=== PATIENT | female | born 1950 | race Caucasian/White ===

== ENCOUNTER → 2017-12-20 12:50 | Outpatient (CLI) | payer MEDICARE, SELFPAY ==
[2017-12-24 11:21] LABS: Flecainide (Tambocor) 085662 0.27 ug/mL (0.20-1.00)
== END ==
PROVIDERS: Family Provider Internal Medicine; PCP Internal Medicine; Visit Provider Internal Medicine
DX: Z79.899 Other long term (current) drug therapy (principal)
CPT/HCPCS: 36415; 80299

== ENCOUNTER 2018-01-28 10:26 | Inpatient (IN) | payer MEDICARE, SELFPAY ==
[2018-01-28] VITALS (17 sets, daily range): BP systolic 126–159; BP diastolic 69–95; PULSE 66–94; RESP 15–24; TEMP 36.7–37.3; O2SAT 88–96; BMI 43.7; BMI 45.8
--- NOTE | 2018-01-28 10:41 | EKG12_ITS ---
Test Reason : FALL Blood Pressure : / mmHG Vent. Rate : 077 BPM Atrial Rate : 077 BPM P-R Int : 158 ms QRS Dur : 104 ms QT Int : 426 ms P-R-T Axes : 063 014 017 degrees QTc Int : 482 ms Normal sinus rhythm Normal ECG Confirmed by ROCAEL LAMBERT, BOBBI ([id number]), visual effects editor KENDRA BAE ([id number]) on 02/01/2018 2:17:38 PM Referred By: GALILEO Confirmed By:BOBBI COTE MD
--- NOTE | 2018-01-28 10:41 | RAD_ITS ---
STUDY: X-RAY CHEST REASON FOR EXAM: Female, 67 years old. Fall this morning TECHNIQUE skull view of the chest was obtained. COMPARISON: August 16, 2017 chest radiograph FINDINGS: No lung consolidation or pneumothorax. Mild pulmonary vascular congestion cardiomegaly. Subsegmental atelectasis in the left lower lobe. Aortic tortuosity. Calcifications of the aortic knob. Right paratracheal opacity likely azygos vein. IMPRESSION: Cardiomegaly with mild pulmonary vascular congestion. No pneumothorax or consolidation. No definite evidence for acute rib fractures within the limits of this exam Electronically Signed: Benito Dye, at 12:08 EDT Tel , Service support , RAD/Chest 1 View (Portable)
--- NOTE | 2018-01-28 10:42 | ED.RN ---
PT HAS SEVERAL MEDICATION BOTTLES WITH SOMEONE ELSES NAME ONE THEM. PT HAS ONE PRESCRIPTION MEDICATION BOTTLE WITH NO LABEL AND MULTIPLE DIFFERENT PILLS INSIDE
--- NOTE | 2018-01-28 10:43 | RAD_ITS ---
STUDY: X-RAY - LEFT FEMUR REASON FOR STUDY: Female, 67 years old. Fall this morning TECHNIQUE: Radiological exam, femur, minimum 2 views COMPARISON: None. FINDINGS: No evidence of lucency noted in the proximal left femur suggestive of an intertrochanteric left femoral fracture. No distal fractures. Femoral acetabular and knee joints are intact. IMPRESSION: Proximal left femoral intertrochanteric fracture. Crosstable lateral views are somewhat limited due to patient's body habitus. Patient may benefit from CT examination. Electronically Signed: Benito Dye, at 12:07 EDT Tel , Service support , RAD/Femur Min 2 Views
--- NOTE | 2018-01-28 10:43 | RAD_ITS ---
STUDY: X-RAY - PELVIS REASON FOR EXAM: Female, 67 years old. Fall and left hip pain TECHNIQUE: One view of the pelvis was obtained. COMPARISON: None. FINDINGS: There is likely an intertrochanteric fracture of the left proximal femur present. The superior and inferior pubic rami are within normal limits. Bony pelvic ring appears intact. Degenerative changes in the lower lumbar spine as well as the sacroiliac joints. IMPRESSION: Lucency in the proximal left femur suggestive of a intertrochanteric left proximal femoral fracture Electronically Signed: Benito Dye, at 12:06 EDT Tel , Service support , RAD/Pelvis 1 or 2 Views
--- NOTE | 2018-01-28 10:46 | ED.DCSUM_ITS ---
- ER Visit Summary Date of Service: 01/28/18 Chief Complaint: [] Fall left hip pain unable to walk History of Present Illness: The patient is a 67 F [] COPD and hypertension, arthritis, back pain, she indicates she was downsized her basement there was some issue where she was trying to deal with the dogs she tripped and fell landing on her left hip she was unable to walk she called out eventually neighbors heard her and paramedics were called they found her with what appeared to be an obvious left hip fracture and inability to walk she was brought to the hospital, she was not sick before this happened, she did not hit her head she only has hip pain she denies any other complaints, her other medical conditions have been stable Physical Examination: [] Obvious left extremity deformity and hip pain shortening rotation sure head is nontender she has scattered lesions to the skin that are old her HEENT is unremarkable her lungs are diminished her heart tones are regular the abdomen is obese but soft nontender severe pain to the left hip with palpation any type movements of the left leg she able dorsi and flex and move her toes left leg her feet are well-perfused the right lower extremity unremarkable upper extremity unremarkable palpation of her lumbar back reveals no pain Test Results: [] Emergency Department Course and Treatment: [] X-rays labs pain management, the x -ray shows intertrochanteric hip fracture of the labs are generally unremarkable see those reports I spoke with Dr. Yoseph Murillo hospitalist will be by to see her shortly for admission and further management Treatment Plan: [] Disposition: [] Admit stable Impression: [] Intertrochanteric hip fracture fall COPD This note was generated with [employer] dictation software. It may contain incorrect words, spelling, and punctuation that were not noted in review of the chart prior to signing ED Disposition - Plan for ED Patient: Chief Complaint: Fall Referrals: Reagan He MD [Primary Care Provider] -
[2018-01-28] MEDS: morphine 8 MG/ML Syringe IV (10:49)
[2018-01-28] MEDS: Ondansetron 4 MG/2 ML Vial IV (10:49)
[2018-01-28 10:50] LABS: Absolute Neutrophil Count 8.3 X10^3/uL (2.0-7.7); Basophil# 0.05 X10^3/uL; Basophil% 0.5 % (0-1); Eosinophil# 0.21 X10^3/uL; Hematocrit 40.9 % (37-47); Hemoglobin 12.7 g/dl (12.0-15.0); Lymphocyte % 11.6 % (19-41); Mean Corp Hgb Conc 31.1 g/gl (32-36); Mean Corpuscular Hgb 29.1 pg (27.0-32.0); Mean Corpuscular Volume 93.6 fL (81-99); Mean Platelet Vol. 9.1 fl (6.2-12.0); Monocyte# 0.61 X10^3/uL; Monocyte% 5.9 % (0-10); Neutrophil # 8.25 X10^3/uL (2.7-7.7); Neutrophil % 79.4 % (47-70); Platelet Count 328 K/mm3 (150-450); RBC Distribution Width CV 15.6 % (11.6-14.6); RBC Distribution Width SD 51.9 fl (35.1-43.9); Red Blood Count 4.37 M/mm3 (4.2-5.4); White Blood Count 10.4 K/mm3 (4.4-11.0)
[2018-01-28] MEDS: 0.9% Normal Saline 1,000 ML 150 ML IV (10:50)
[2018-01-28 10:51] LABS: POSITIVE COUNT NO; POSITIVE DIFFERENTIAL NO; POSITIVE MORPHOLOGY NO
[2018-01-28] MEDS: Ipratropium/Albuterol Sulfate 3 ML AMPUL.NEB INHALATION ×2 (10:54→15:28)
[2018-01-28 11:15] LABS: Anion Gap 4 (5-15); BUN 23 mg/dL (7-18); BUN/Creat Ratio 21.7 RATIO (10-20); Calcium,Total 8.9 mg/dL (8.5-10.1); Chloride 107 mmol/L (98-107); Creatinine, Serum 1.06 mg/dL (0.55-1.02); EST Glomerular Filtration Rate 55 mL/min (>60); Est Glom Filt Rate - Afr Amer 66 mL/min (>60); Estimated Creatinine Clearance 50.08 ml/min; Glucose 98 mg/dL (74-106); Potassium 4.9 mmol/L (3.5-5.1); Sodium Level 141 mmol/L (136-145)
[2018-01-28 11:19] LABS: BNP,B-Type NATRIURETIC PEPTIDE 375.2 pg/mL (0-100)
--- NOTE | 2018-01-28 13:26 | ECHOD_ITS ---
Reason For Study: CHF Procedure This was a 2D Doppler, Color Flow transthoracic echocardiogram. The exam was of fair technical quality due to diminished acoustic windows. The study was technically difficult. Exam performed portable in patient room. Left Ventricle Normal LV size. Moderate to severe concentric LVH. Left ventricular systolic function is normal. The estimated ejection fraction is 55 %. Unable to assess diastolic dysfunction. No regional wall motion abnormalities noted. Right Ventricle Normal RV size. Normal systolic function. Atria The left atrium is mildly enlarged. The right atrium is mildly enlarged. No doppler evidence for ASD. Mitral Valve There is mild mitral annular calcification. Normal mitral valve. Trivial mitral valve insufficiency. Tricuspid Valve Normal tricuspid valve. Mild tricuspid valve insufficiency. Unable to estimate RV systolic pressure/pulmonary artery pressure due to technically difficult study. Aortic Valve Trisinus/trileaflet aortic valve. Normal aortic valve. Pulmonic Valve The pulmonic valve is not well visualized. Great Vessels Normal sized aortic root. Calcified aortic root. Pericardium/Pleural No pericardial effusion. MMode/2D Measurements & Calculations LVIDd: 5.2 cm IVSd: 1.8 cm Ao root diam: 3.6 cm LVIDs: 2.8 cm LVPWd: 1.3 cm LA dimension: 2.3 cm FS: 46.2 % LAV(MOD-sp4): 60.2 ml LA A4 area: 21.1 cm2 RA A4 area: 18.8 cm2 Time Measurements MV dec time: 0.27 sec Doppler Measurements & Calculations MV E max [place]: 95.4 cm/sec Lat Peak E' [place]: 13.0 cm/sec MV V2 max: 138.7 cm/sec MV A max [place]: 130.3 cm/sec E/E' lat: 7.3 MV max P.7 mmHg MV E/A: 0.73 MV V2 mean: 77.4 cm/sec MV mean P.8 mmHg MV V2 VTI: 41.6 cm MV P1/2t max [place]: 117.5 cm/sec Ao V2 max: 180.1 cm/sec LV V1 max: 108.5 cm/sec MV P1/2t: 114.8 msec Ao max P.0 mmHg LV V1 max P.7 mmHg MV dec slope: 299.6 cm/sec2 Ao V2 mean: 118.2 cm/sec LV V1 mean P.0 mmHg MVA(P1/2t): 1.9 cm2 Ao mean P.4 mmHg LV V1 mean: 64.7 cm/sec Ao V2 VTI: 34.9 cm LV V1 VTI: 18.9 cm PA V2 max: 95.3 cm/sec Interpretation Summary The study was technically difficult. Left ventricular systolic function is normal. The estimated ejection fraction is 55 %. Moderate to severe concentric LVH. The left atrium is mildly enlarged. The right atrium is mildly enlarged. There is mild mitral annular calcification. Trivial mitral valve insufficiency. Mild tricuspid valve insufficiency. Calcified aortic root. Unable to estimate RV systolic pressure/pulmonary artery pressure due to technically difficult study. Unable to assess diastolic dysfunction. Ordering Physician: Amy Parker Referring Physician: Reagan He Performed By: Brodwolf, Tyree, RCS
--- NOTE | 2018-01-28 13:42 | PCM.HP.STD ---
Problem List (1) Chronic combined systolic and diastolic CHF (congestive heart failure) Status: Chronic (2) Non-sustained ventricular tachycardia Status: Chronic (3) Dysmetabolic syndrome Status: Chronic (4) Hypertension Status: Chronic (5) 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 Status: Chronic (6) FDC current use of antiarrhythmic medical therapy Status: Chronic (7) Paroxysmal atrial fibrillation Status: Chronic (8) Arthritis Status: Chronic (9) Asthma Status: Chronic (10) COPD (chronic obstructive pulmonary disease) Status: Chronic Qualifiers: (11) ESPERANZA (obstructive sleep apnea) Status: Acute (12) Chronic respiratory failure with hypoxia Status: Chronic (13) History of tobacco use Status: Chronic Comment: [id number]-[id number] smoking history. (14) Anxiety Status: Chronic (15) Depression Status: Chronic History of Present Illness Date of Admission: 01/28/18 Chief Complaint: Left hip pain, mechanical fall The patient is a 67 year old F who presents to the emergency room with left hip pain. Patient states her left hip has been giving out on her. Today she states she was moving boxes and had to use the restroom fairly quickly. She states when she moved to go to the restroom her left hip gave out out on her causing her to fall. She was unable to get up or walk. She crawled to a telephone to call the squad. Her current pain is 9 out of 10 in the left hip. She denies dizziness, lightheadedness prior to fall. She denies loss of consciousness. Denies hitting her head. Patient admits to poor outpatient follow-up and compliance with medication regimen. She has a past medical history of chronic combined systolic and diastolic CHF, hypertension, nonsustained ventricular tachycardia, paroxysmal atrial fibrillation, COPD, chronic back pain, chronic kidney disease stage III, GERD, history of DVT, restless leg syndrome, anxiety, depression, obstructive sleep apnea, former tobacco use with 67-[id number]-[id number] smoking history, chronic hypoxic respiratory failure, lung nodule suspicious for cancer, morbid obesity. Patient has not followed with cardiology in a few years. Previously followed with Dr. Allen, [facility] cardiology. She was told that she has a lung nodule suspicious for lung cancer and failed to follow-up as outpatient. Patient had a recent COPD exacerbation and was placed on Augmentin and prednisone by primary care physician 01/19/2018. She states she took the medications for a few days and then stopped taking them. She complains of chronic cough and shortness of breath. Denies fever, chills. States she has had increase in lower extremity edema and weight gain recently. She is unsure how much weight she has gained. Denies chest pain, palpitations. Denies other complaints. Past Medical History Past Medical History (Chronic Problems): Chronic Problems (Last Reviewed 01/19/18 @ 16:26 by Aleyda Mendez) Chronic respiratory failure with hypoxia (Chronic) History of tobacco use (Chronic) 60-[id number] smoking history. 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) FDC current use of antiarrhythmic medical therapy (Chronic) Paroxysmal atrial fibrillation (Chronic) Arthritis (Chronic) Asthma (Chronic) COPD (chronic obstructive pulmonary disease) (Chronic) Allergies ciprofloxacin [From Cipro] Adverse Reaction (Intermediate, Verified 01/28/18 10:32) Other messes with her heart medicine Home Medications: Ambulatory Orders Medication Instructions Recorded Albuterol Inhaler [Ventolin Hfa] 1 puff INHALATION Q4H PRN PRN 08/08/13 Fluticasone 0.05% [Flonase Nasal 1 spray NASAL DAILY 08/08/13 [place]] Ipratropium [Atrovent Aerosols] 0.25 mg INHALATION TID 08/08/13 Lisinopril [Zestril] 10 mg PO DAILY 08/08/13 Ropinirole HCl [Requip] 1 mg PO TID 02/18/14 Oxycodone HCl/Acetaminophen 1 - 2 tab PO Q4H PRN PRN #20 tab 08/02/14 [Percocet 5/325] cyclobenzaprine 10 mg tablet 10 mg PO TID PRN 08/16/17 flecainide 150 mg tablet 150 mg PO BID 08/16/17 metoprolol tartrate 25 mg tablet 25 mg PO BID 08/16/17 ranitidine 150 mg tablet 150 mg PO BID tab 08/16/17 tizanidine 4 mg capsule 4 mg PO BID cap 08/16/17 meloxicam 15 mg tablet 15 mg PO QDAY #90 tab 09/07/17 omeprazole 20 mg capsule,delayed 40 mg PO BID #120 cap 09/07/17 release furosemide 20 mg tablet 20 mg PO DAILY #30 tab 10/28/17 lorazepam 0.5 mg tablet 0.5 mg PO QDAY PRN #10 tab 11/08/17 amoxicillin 875 mg-potassium 1 tab PO Q12H #20 tab 01/19/18 clavulanate 125 mg tablet fluticasone 232 mcg-salmeterol 14 1 puff INHALATION BID #1 ea 01/19/18 mcg/actuation breath activated powdr prednisone 20 mg tablet 40 mg PO QDAY #20 tab 01/19/18 Diclofenac Sodium [[place]] 112 gm TP DAILY 01/28/18 Hydrocodone/Acetaminophen [[place] 1 each PO Q6H PRN PRN 01/28/18 7.5-325 Tablet] Venlafaxine HCl [Venlafaxine HCl 75 mg PO BID 01/28/18 ER] Surgical History: - - Hysterectomy, tubal ligation, oophorectomy, knee surgery, status post cardiac radiofrequency ablation, cardiac catheterization. 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 Denies: Chest Pain, Palpitations, Syncope Respiratory: Reports: Cough - Chronic, Shortness of Breath - Chronic, Sputum production. Denies: Wheezing Gastrointestinal: Denies: Abdominal Pain, Nausea, Vomiting Genitourinary: Denies: Dysuria Musculoskeletal: Reports: - - Left hip pain. Denies: Joint Pain, Joint Tenderness Skin: Denies: Rash, Wounds Neurological: Denies: Double vision, Slurred speech, Confusion, Focal weakness, Numbness, Tingling Psychiatric: Reports: Anxiety, Depression Hematologic/ Lymphatic: Denies: Easy Bruising, Easy Bleeding VTE Information - Inpt Only VTE Present on Admission: No VTE Mechan Device Prophylaxis: None VTE Pharm Prophylaxis ordered?: Yes Patient Problems: Active and Suspected Problems (Last Reviewed 01/19/18 @ 16:26 by Aleyda Mendez) ESPERANZA (obstructive sleep apnea) (Acute) - Physical Exam General: Alert, Oriented x3, Cooperative, - - Appears uncomfortable. HEENT: Atraumatic, PERRLA, EOMI, Normocephalic Neck: Supple, No JVD, Negative Carotid Bruits Lungs: Clear to auscultation, Diminished Cardiovascular: Regular rate, Regular Rhythm, Normal S1, Normal S2, No murmurs Abdomen: Bowel Sounds Present, Soft, Non Tender, Non-Distended, Obese Extremities: No clubbing, No cyanosis, Capillary Refill Less than 3 Seconds, Edema - BLLE Skin: No rashes, No breakdown Musculoskeletal: No Tenderness to Palpation of Joints or Extremities Neurological: Cranial nerves II-XII grossly intact Psych/Mental Status: Normal Affect, Appropriate Vital Signs Temp Pulse Resp BP Pulse Ox 98.3 F 88 15 147/92 H 95 01/28/18 10:27 01/28/18 13:07 01/28/18 13:07 01/28/18 13:07 01/28/18 13:07 Assessment/Plan Active and Suspected Problems (Last Reviewed 01/19/18 @ 16:26 by Aleyda Mendez) ESPERANZA (obstructive sleep apnea) (Acute) 1. Traumatic left hip fracture secondary to mechanical fall prior to [id number] of pelvis shows lucency in the proximal left femur suggestive of a intertrochanteric left proximal femoral fracture. X-ray of femur showed proximal left femoral intertrochanter fracture. PRN pain regimen. Consult orthopedic surgery. PT/OT. Fall precautions. Consult cardiology for clearance for surgery given cardiac hx and poor outpatient follow up. 2. Chronic combined systolic and diastolic CHF-chest x-ray on admission showed mild pulmonary vascular congestion. BNP 375. Most recent echocardiogram December 2015 showed an ejection fraction of 56%. Repeat echocardiogram. BNP on admission 375. Discontinue fluids. Continue home lasix regimen. 1500 FR. Daily weight. 3. Hypertension-stable, continue home metoprolol, lisinopril, furosemide regimen. 4. History of nonsustained ventricular tachycardia-monitor telemetry. 5. Paroxysmal atrial fibrillation-history of ablation. Continue flecainide, metoprolol. Previously a patient of Dr. Allen at [facility] and has not followed up with cardiology in over a year and a half. Patient is sinus rhythm at this time. 6. COPD-recent exacerbation. Placed on Augmentin and prednisone taper by PCP. Patient did not take as prescribed. Discontinue antibiotics and steroids. Albuterol aerosol as needed for shortness of breath. 7. Chronic back pain/arthritis-follows with pain management, Dr. Betts. 8. Chronic kidney disease stage III-stable, monitor BMP. 9. GERD-continue home omeprazole regimen. 10. History of DVT-patient states this occurred in 1970s. Not on chronic anticoagulation. 11. Restless leg syndrome-continue home Requip regimen. 12. Anxiety/depression-continue home venlafaxine, lorazepam regimen. 13. Obstructive sleep apnea-patient had sleep study in [address] Ruiz. Continue CPAP HS. Recommend further outpatient follow up as patient has not followed up since 2013. 14. History of tobacco use-quit 11 years ago. 62-[id number]-tbbm smoking history. Encouraged continued cessation. 15. Chronic hypoxic respiratory failure-patient states she is supposed to wear oxygen continuously at home but only wears as needed. She states she typically wears oxygen at night with her CPAP only. Continue supplement oxygen to maintain O2 at or above 90%. 16. Lung nodule-patient reports she was told she had a lung nodule that was suspicious for lung cancer and was supposed to follow-up as outpatient which she is failed to do so. Her daughter states she has an upcoming appointment with Dr. Antunez February 02 for further follow-up. 17. Super obesity-encourage diet and lifestyle modifications. Nutrition consult. DVT prophylaxis-Lovenox subcu. CODE STATUS: CODE STATUS was discussed with patient and daughter. Patient wishes to be a full code. This patient was seen by JUDY Hughes under the supervision of Dr. Parker.
[2018-01-28] MEDS: Morphine 4 MG/ML Syringe IV (13:50)
[2018-01-28] MEDS: Acetaminophen 325 MG Tablet 650 MG PO (13:52)
--- NOTE | 2018-01-28 14:00 | HP.PCM_ITS ---
Problem List (1) Chronic combined systolic and diastolic CHF (congestive heart failure) Status: Chronic (2) Non-sustained ventricular tachycardia Status: Chronic (3) Dysmetabolic syndrome Status: Chronic (4) Hypertension Status: Chronic (5) 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 Status: Chronic (6) 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 Status: Chronic (7) Paroxysmal atrial fibrillation Status: Chronic (8) Arthritis Status: Chronic (9) Asthma Status: Chronic (10) COPD (chronic obstructive pulmonary disease) Status: Chronic Qualifiers: (11) ESPERANZA (obstructive sleep apnea) Status: Acute (12) Chronic respiratory failure with hypoxia Status: Chronic (13) History of tobacco use Status: Chronic Comment: [id number] smoking history. (14) Anxiety Status: Chronic (15) Depression Status: Chronic History of Present Illness Date of Admission: 01/28/18 Chief Complaint: Left hip pain, mechanical fall The patient is a 67 year old F who presents to the emergency room with left hip pain. Patient states her left hip has been giving out on her. Today she states she was moving boxes and had to use the restroom fairly quickly. She states when she moved to go to the restroom her left hip gave out out on her causing her to fall. She was unable to get up or walk. She crawled to a telephone to call the squad. Her current pain is 9 out of 10 in the left hip. She denies dizziness, lightheadedness prior to fall. She denies loss of consciousness. Denies hitting her head. Patient admits to poor outpatient follow-up and compliance with medication regimen. She has a past medical history of chronic combined systolic and diastolic CHF, hypertension, nonsustained ventricular tachycardia, paroxysmal atrial fibrillation, COPD, chronic back pain, chronic kidney disease stage III, GERD, history of DVT, restless leg syndrome, anxiety, depression, obstructive sleep apnea, former tobacco use with [id number] smoking history, chronic hypoxic respiratory failure, lung nodule suspicious for cancer, morbid obesity. Patient has not followed with cardiology in a few years. Previously followed with Dr. Allen, [facility] cardiology. She was told that she has a lung nodule suspicious for lung cancer and failed to follow-up as outpatient. Patient had a recent COPD exacerbation and was placed on Augmentin and prednisone by primary care physician 01/19/2018. She states she took the medications for a few days and then stopped taking them. She complains of chronic cough and shortness of breath. Denies fever, chills. States she has had increase in lower extremity edema and weight gain recently. She is unsure how much weight she has gained. Denies chest pain, palpitations. Denies other complaints. Past Medical History Past Medical History (Chronic Problems): Chronic Problems (Last Reviewed 01/19/18 @ 16:26 by Aleyda Mendez) Chronic respiratory failure with hypoxia (Chronic) History of tobacco use (Chronic) [id number] smoking history. 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) 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 (Chronic) Paroxysmal atrial fibrillation (Chronic) Arthritis (Chronic) Asthma (Chronic) COPD (chronic obstructive pulmonary disease) (Chronic) Allergies ciprofloxacin [From Cipro] Adverse Reaction (Intermediate, Verified 01/28/18 10: 32) Other messes with her heart medicine Home Medications: Ambulatory Orders Medication Instructions Recorded Albuterol Inhaler [Ventolin Hfa] 1 puff INHALATION Q4H PRN PRN 08/08/13 Fluticasone 0.05% [Flonase Nasal 1 spray NASAL DAILY 08/08/13 [place]] Ipratropium [Atrovent Aerosols] 0.25 mg INHALATION TID 08/08/13 Lisinopril [Zestril] 10 mg PO DAILY 08/08/13 Ropinirole HCl [Requip] 1 mg PO TID 02/18/14 Oxycodone HCl/Acetaminophen 1 - 2 tab PO Q4H PRN PRN #20 tab 08/02/14 [Percocet 5/325] cyclobenzaprine 10 mg tablet 10 mg PO TID PRN 08/16/17 flecainide 150 mg tablet 150 mg PO BID 08/16/17 metoprolol tartrate 25 mg tablet 25 mg PO BID 08/16/17 ranitidine 150 mg tablet 150 mg PO BID tab 08/16/17 tizanidine 4 mg capsule 4 mg PO BID cap 08/16/17 meloxicam 15 mg tablet 15 mg PO QDAY #90 tab 09/07/17 omeprazole 20 mg capsule,delayed 40 mg PO BID #120 cap 09/07/17 release furosemide 20 mg tablet 20 mg PO DAILY #30 tab 10/28/17 lorazepam 0.5 mg tablet 0.5 mg PO QDAY PRN #10 tab 11/08/17 amoxicillin 875 mg-potassium 1 tab PO Q12H #20 tab 01/19/18 clavulanate 125 mg tablet fluticasone 232 mcg-salmeterol 14 1 puff INHALATION BID #1 ea 01/19/18 mcg/actuation breath activated powdr prednisone 20 mg tablet 40 mg PO QDAY #20 tab 01/19/18 Diclofenac Sodium [[place]] 112 gm TP DAILY 01/28/18 Hydrocodone/Acetaminophen [[place] 1 each PO Q6H PRN PRN 01/28/18 7.5-325 Tablet] Venlafaxine HCl [Venlafaxine HCl 75 mg PO BID 01/28/18 ER] Surgical History: - - Hysterectomy, tubal ligation, oophorectomy, knee surgery, status post cardiac radiofrequency ablation, cardiac catheterization. 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 Denies: Chest Pain, Palpitations, Syncope Respiratory: Reports: Cough - Chronic, Shortness of Breath - Chronic, Sputum production. Denies: Wheezing Gastrointestinal: Denies: Abdominal Pain, Nausea, Vomiting Genitourinary: Denies: Dysuria Musculoskeletal: Reports: - - Left hip pain. Denies: Joint Pain, Joint Tenderness Skin: Denies: Rash, Wounds Neurological: Denies: Double vision, Slurred speech, Confusion, Focal weakness, Numbness, Tingling Psychiatric: Reports: Anxiety, Depression Hematologic/ Lymphatic: Denies: Easy Bruising, Easy Bleeding VTE Information - Inpt Only VTE Present on Admission: No VTE Mechan Device Prophylaxis: None VTE Pharm Prophylaxis ordered?: Yes Patient Problems: Active and Suspected Problems (Last Reviewed 01/19/18 @ 16:26 by Aleyda Mendez) ESPERANZA (obstructive sleep apnea) (Acute) - Physical Exam General: Alert, Oriented x3, Cooperative, - - Appears uncomfortable. HEENT: Atraumatic, PERRLA, EOMI, Normocephalic Neck: Supple, No JVD, Negative Carotid Bruits Lungs: Clear to auscultation, Diminished Cardiovascular: Regular rate, Regular Rhythm, Normal S1, Normal S2, No murmurs Abdomen: Bowel Sounds Present, Soft, Non Tender, Non-Distended, Obese Extremities: No clubbing, No cyanosis, Capillary Refill Less than 3 Seconds, Edema - BLLE Skin: No rashes, No breakdown Musculoskeletal: No Tenderness to Palpation of Joints or Extremities Neurological: Cranial nerves II-XII grossly intact Psych/Mental Status: Normal Affect, Appropriate Vital Signs Temp Pulse Resp BP Pulse Ox 98.3 F 88 15 147/92 H 95 01/28/18 10:27 01/28/18 13:07 01/28/18 13:07 01/28/18 13:07 01/28/18 13:07 Assessment/Plan Active and Suspected Problems (Last Reviewed 01/19/18 @ 16:26 by Aleyda Mendez) ESPERANZA (obstructive sleep apnea) (Acute) 1. Traumatic left hip fracture secondary to mechanical fall prior to admission- x-ray of pelvis shows lucency in the proximal left femur suggestive of a intertrochanteric left proximal femoral fracture. X-ray of femur showed proximal left femoral intertrochanter fracture. PRN pain regimen. Consult orthopedic surgery. PT/OT. Fall precautions. Consult cardiology for clearance for surgery given cardiac hx and poor outpatient follow up. 2. Chronic combined systolic and diastolic CHF-chest x-ray on admission showed mild pulmonary vascular congestion. BNP 375. Most recent echocardiogram December 2015 showed an ejection fraction of 56%. Repeat echocardiogram. BNP on admission 375. Discontinue fluids. Continue home lasix regimen. 1500 FR. Daily weight. 3. Hypertension-stable, continue home metoprolol, lisinopril, furosemide regimen. 4. History of nonsustained ventricular tachycardia-monitor telemetry. 5. Paroxysmal atrial fibrillation-history of ablation. Continue flecainide, metoprolol. Previously a patient of Dr. Allen at [facility] and has not followed up with cardiology in over a year and a half. Patient is sinus rhythm at this time. 6. COPD-recent exacerbation. Placed on Augmentin and prednisone taper by PCP. Patient did not take as prescribed. Discontinue antibiotics and steroids. Albuterol aerosol as needed for shortness of breath. 7. Chronic back pain/arthritis-follows with pain management, Dr. Betts. 8. Chronic kidney disease stage III-stable, monitor BMP. 9. GERD-continue home omeprazole regimen. 10. History of DVT-patient states this occurred in 1970s. Not on chronic anticoagulation. 11. Restless leg syndrome-continue home Requip regimen. 12. Anxiety/depression-continue home venlafaxine, lorazepam regimen. 13. Obstructive sleep apnea-patient had sleep study [place] [address] Ruiz. Continue CPAP HS. Recommend further outpatient follow up as patient has not followed up since 2013. 14. History of tobacco use-quit 11 years ago. [id number] smoking history. Encouraged continued cessation. 15. Chronic hypoxic respiratory failure-patient states she is supposed to wear oxygen continuously at home but only wears as needed. She states she typically wears oxygen at night with her CPAP only. Continue supplement oxygen to maintain O2 at or above 90%. 16. Lung nodule-patient reports she was told she had a lung nodule that was suspicious for lung cancer and was supposed to follow-up as outpatient which she is failed to do so. Her daughter states she has an upcoming appointment with Dr. Antunez February 02 for further follow-up. 17. Super obesity-encourage diet and lifestyle modifications. Nutrition consult. DVT prophylaxis-Lovenox subcu. CODE STATUS: CODE STATUS was discussed with patient and daughter. Patient wishes to be a full code. This patient was seen by JUDY Hughes under the supervision of Dr. Parker.
[2018-01-28] MEDS: Metoprolol Tartrate 25 MG Tablet PO ×2 (14:14→21:14)
[2018-01-28] MEDS: Enoxaparin 40 MG/0.4 ML Syringe SC (14:15)
[2018-01-28] MEDS: HYDROmorphone 0.5 MG/0.5 ML SYRINGE IV ×2 (14:58→21:10)
[2018-01-28 15:07] LABS: Color, Urine Yellow (Yellow); Glucose, Dipstick Normal (Normal); Ketone-Dipstick Negative (Negative); Leukocyte Esterase-Dipstick Negative /ul (Negative); Nitrite-Dipstick Negative (Negative); Occult Blood-Urine Negative /ul (Negative); Protein-Dipstick Negative (Negative); Urine Bilirubin Dipstick Negative (Negative); Urine Clarity Clear (Clear); Urine Urobilinogen Normal (Normal); Urine pH 6.5 (5.0 - 8.0)
--- NOTE | 2018-01-28 15:49 | NURSING ---
dr bledsoe paged re:consult
--- NOTE | 2018-01-28 19:23 | PCM.CONS.C ---
Problem List (1) Paroxysmal atrial fibrillation Status: Chronic (2) Non-sustained ventricular tachycardia Status: Chronic (3) Chronic combined systolic and diastolic CHF (congestive heart failure) Status: Chronic (4) Hypertension Status: Chronic (5) Dysmetabolic syndrome Status: Chronic (6) COPD (chronic obstructive pulmonary disease) Status: Chronic Qualifiers: (7) ESPERANZA (obstructive sleep apnea) Status: Chronic (8) 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 Status: Chronic (9) Hip fracture Status: Acute (10) Preop cardiovascular exam Status: Acute Reason for Consult Date of Consultation: 01/28/18 History of Present Illness: The patient is a 67 year old who is referred for evaluation of a history of paroxysmal atrial fibrillation, paroxysmal ventricular tachycardia, CHF-systolic/diastolic, hypertension, metabolic syndrome, superimposed upon COPD, obstructive sleep apnea, and obesity who now has an underlying left hip fracture in need of left hip ORIF. The patient's cardiovascular care, per the patient and her sister who was present at this time, has been through the [facility] system. She states that she has undergone evaluation through the [facility] system which she believes has included both noninvasive and invasive studies including cardiac catheterization and an EPS/ablation procedure. She claims to be taking her cardiovascular medicines on a daily basis as prescribed. She states that she had an accidental fall. This resulted in the left hip fracture. She was placed in the hospital for further evaluation care. She is pending left hip ORIF. In the meantime she appears to deny any ongoing chest discomfort or difficulty breathing above and beyond her usual chronic shortness of breath/dyspnea. She does not recall any obvious palpitations. There has been no near syncope or syncope. She had an ECG performed. She appeared to be in sinus rhythm with no acute changes. A previous [facility] echocardiogram from 12/15/2015 was reviewed. According to that report her left ventricle was normal in size, wall motion, and systolic function with an LVEF reported at 56% with mild concentric LVH and the right ventricle was normal in size and function, there was mild to moderate MR, trivial TR, trivial AI, and trivial PI. According to the report her estimated RV systolic pressure had decreased compared to a previous report from 10/17/2013 with numbers decreasing from 52 mmHg to 34 mmHg. According report there is a comment that stated otherwise there was no significant change. There are no other F records available for review at this time. The patient has been placed on black leather buffer. She has been placed on medical management. This has included beta-bairon therapy and antiarrhythmic therapy with flecainide/Tambocor. [] Past Medical History Allergies/Adverse Reactions: Allergies ciprofloxacin [From Cipro] Adverse Reaction (Intermediate, Verified 01/28/18 10:32) Other messes with her heart medicine Home Medications: Ambulatory Orders Medication Instructions Recorded Albuterol Inhaler [Ventolin Hfa] 1 puff INHALATION Q4H PRN PRN 08/08/13 Fluticasone 0.05% [Flonase Nasal 1 spray NASAL DAILY 08/08/13 [place]] Ipratropium [Atrovent Aerosols] 0.25 mg INHALATION TID 08/08/13 Lisinopril [Zestril] 10 mg PO DAILY 08/08/13 Ropinirole HCl [Requip] 1 mg PO TID 02/18/14 Oxycodone HCl/Acetaminophen 1 - 2 tab PO Q4H PRN PRN #20 tab 08/02/14 [Percocet 5/325] cyclobenzaprine 10 mg tablet 10 mg PO TID PRN 08/16/17 flecainide 150 mg tablet 150 mg PO BID 08/16/17 metoprolol tartrate 25 mg tablet 25 mg PO BID 08/16/17 ranitidine 150 mg tablet 150 mg PO BID tab 08/16/17 tizanidine 4 mg capsule 4 mg PO BID cap 08/16/17 meloxicam 15 mg tablet 15 mg PO QDAY #90 tab 09/07/17 omeprazole 20 mg capsule,delayed 40 mg PO BID #120 cap 09/07/17 release lorazepam 0.5 mg tablet 0.5 mg PO QDAY PRN #10 tab 11/08/17 fluticasone 232 mcg-salmeterol 14 1 puff INHALATION BID #1 ea 01/19/18 mcg/actuation breath activated powdr prednisone 20 mg tablet 40 mg PO QDAY #20 tab 01/19/18 Diclofenac [Voltaren] 50 mg PO BIDCM 01/28/18 Furosemide [Lasix] 20 mg PO 1600 01/28/18 Furosemide [Lasix] 40 mg PO 0800 01/28/18 Hydrocodone/Acetaminophen [[place] 1 each PO Q6H PRN PRN 01/28/18 7.5-325 Tablet] Venlafaxine HCl [Venlafaxine HCl 75 mg PO BID 01/28/18 ER] Past Medical History (Chronic Problems): Chronic Problems (Last Reviewed 01/19/18 @ 16:26 by Aleyda Mendez) ESPERANZA (obstructive sleep apnea) (Chronic) Chronic respiratory failure with hypoxia (Chronic) History of tobacco use (Chronic) [id number] smoking history. 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) [facility] current use of antiarrhythmic medical therapy (Chronic) Paroxysmal atrial fibrillation (Chronic) Arthritis (Chronic) Asthma (Chronic) COPD (chronic obstructive pulmonary disease) (Chronic) Surgical History: - - Hysterectomy, tubal ligation, oophorectomy, knee surgery, status post cardiac radiofrequency ablation, cardiac catheterization. 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 - *Family History Maternal Family History: Family History (Last Reviewed 01/19/18 @ 16:26 by Aleyda Mendez) Mother Heart disease Arthritis blood clots Hypertension Father arthrits Cancer Brother Cancer Aunt Breast cancer Depression Ovarian cancer Grandmother CVA (cerebral vascular accident) Aunt Diabetes History Items: Heart Disease, Hypertension, - - Blood clot Paternal Family History: Family History (Last Reviewed 01/19/18 @ 16:26 by Aleyda Mendez) Mother Heart disease Arthritis blood clots Hypertension Father arthrits Cancer Brother Cancer Aunt Breast cancer Depression Ovarian cancer Grandmother CVA (cerebral vascular accident) Aunt Diabetes History Items: Cancer - Lung cancer Smoking Status: Former smoker Alcohol: None Drugs: None Review of Systems - Review of Systems General: Denies: Fever, Night Sweats, Fatigue Cardiovascular: Reports: Shortness of Breath. Denies: Chest Discomfort, Orthopnea, PND, Peripheral Edema, Palpitations, Lightheadedness, Dizziness, Near Syncope, Syncope Respiratory: Reports: Shortness of Breath. Denies: Cough, Sputum Production, Hemoptysis Gastrointestinal: Denies: Hematemesis, Hematochezia, Melena Genitourinary: Denies: Dysuria, Hematuria Skin: Denies: Rash Subjectve: This is a 67-year-old white female who appears to be resting reasonably comfortably at the moment in no acute distress. Objective: Vital Signs Temp Pulse Resp BP Pulse Ox 98.1 F 70 16 136/78 H 95 01/28/18 18:35 01/28/18 18:35 01/28/18 18:35 01/28/18 18:35 01/28/18 18:35 Oxygen Flow Rate (L/min) 2 Oxygen Delivery Method Nasal Cannula Weight: 275 lb 2.19 oz Body Mass Index (BMI) 45.8 Intake and Output for Last 24 Hours 01/26/18 01/27/18 01/28/18 23:59 23:59 23:59 Intake Total 1030 / 1030 Output Total 400 / 400 Balance 630 / 630 General: Awake, Cooperative, No Acute Distress, Obese Neck: No JVD Lungs: - - No obvious rales or rhonchi Cardiovascular: Regular Rhythm, Normal S1, Normal S2 Abdomen: Bowel Sounds Present, Soft, Non Tender Extremities: No edema 01/28/18 14:45: Urine Color Yellow, Urine Clarity Clear, Urine pH 6.5, Ur Specific [place] 1.010, Urine Protein Negative, Urine Glucose (UA) Normal, Urine Ketones Negative, Urine Occult Blood Negative, Urine Nitrite Negative, Urine Bilirubin Negative, Urine Urobilinogen Normal, Ur Leukocyte Esterase Negative Rhythm: Sinus rhythm EKG: Sinus rhythm ECHO: As noted above CXR: Portable chest x-ray: Preliminary evaluation: Possible cardiomegaly, however, again this is noted on a portable chest x-ray: Please see official report Assessment/Plan 1. Paroxysmal atrial fibrillation The patient reportedly has history of paroxysmal atrial fibrillation. She has been on medical management. She states she is undergone an ablation procedure in the past. She believes her rhythm is been under much better control since her ablative procedure. At the present time she appears to be remaining in sinus rhythm. She is currently on beta-bairon therapy and antiarrhythmic therapy with flecainide/Tambocor. She may need to be on long-term systemic oral anticoagulant therapy to minimize the risk of possible thromboembolic events in the setting of recurrent paroxysmal atrial fibrillation. 2. Paroxysmal ventricular tachycardia According to medical record the patient has a history of PVT. The patient appears to be somewhat unaware of this. The present time the patient does not appear to have any obvious ongoing ventricular ectopy or dysrhythmias. Most recent echocardiogram is as noted above demonstrating overall preserved left ventricular wall motion and systolic function. She is on medical management with her beta-bairon and antiarrhythmic therapy with flecainide/Tambocor that would be more commonly used to treat atrial dysrhythmias as opposed to ventricular dysrhythmias. Thus it is unclear as to whether or not she truly has a past medical history of underlying ventricular dysrhythmias. 3. CHF According to medical records states the patient has a history of combined systolic and diastolic CHF. According to her most recent echocardiogram her overall systolic function appeared to be preserved. There was a comment that she did have diastolic function consistent with abnormal relaxation. Thus she may have an element of diastolic mediated CHF. At the present time she is on medical management. This does include diuretics and afterload reducing therapy. She does not appear to have any acute symptoms at this time. 4. Hypertension The patient will need to continue medical management as deemed appropriate. 5. Dysmetabolic syndrome The patient will continue under the care of internal medicine. 6. COPD The patient will continue under the care of internal medicine. 7. Obstructive sleep apnea To the medical record the patient has been somewhat noncompliant with her follow-up and care of her obstructive sleep apnea. 8. Obesity The patient is overweight. She will need dietary counseling and attempt to help bring her weight under better control. 9. Hip fracture The patient is reported as having a left hip fracture. She is in need of left hip ORIF. 10. Preoperative cardiovascular evaluation The patient has the aforementioned concerns. She does not appear to complain of any acute symptoms at this time. Her most recent [facility] noninvasive evaluation available for review is as noted above. At the present time the patient appears to be without acute cardiovascular symptoms or adverse event. Attempt will be made to retrieve additional F records for continuity of care purposes. She may need follow-up of her cardiac size, anatomy, and function with a follow-up transthoracic echocardiogram. However, in the interim, she does have left hip fracture. She is in need of left hip ORIF. As long as she appears to be symptomatically and hemodynamically stable on her current medications, based upon the information available for review at this time, it appears that she will proceed with her left hip fracture injury. She will need continued monitoring during and after surgery of her cardiac rate, rhythm, and blood pressure. An attempt should be made to avoid significant volume overload via IV fluids. If she becomes anemic, depending upon her hemoglobin level, she may need PRBCs to maintain adequate oxygen carrying capacity. She should also continue medical therapy and around time of her surgery as best as possible especially with respect to her beta-bairon therapy which she reportedly has been on in the past. It is noted that with her current condition or surgical procedure there is a possibility she could have recurrent cardiac dysrhythmias especially with respect to her atrial dysrhythmias, etc. If this occurs she will need further evaluation care as deemed appropriate at that time. The above was discussed with the patient with her sister present. The patient's case has previously been discussed with Dr. la. This note was generated with [employer] dictation software. It may contain incorrect words, spelling, and punctuation that were not noted in checking the note before signing.
--- NOTE | 2018-01-28 19:35 | CON.PCM_ITS ---
Problem List (1) Paroxysmal atrial fibrillation Status: Chronic (2) Non-sustained ventricular tachycardia Status: Chronic (3) Chronic combined systolic and diastolic CHF (congestive heart failure) Status: Chronic (4) Hypertension Status: Chronic (5) Dysmetabolic syndrome Status: Chronic (6) COPD (chronic obstructive pulmonary disease) Status: Chronic Qualifiers: (7) ESPERANZA (obstructive sleep apnea) Status: Chronic (8) 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 Status: Chronic (9) Hip fracture Status: Acute (10) Preop cardiovascular exam Status: Acute Reason for Consult Date of Consultation: 01/28/18 History of Present Illness: The patient is a 67 year old who is referred for evaluation of a history of paroxysmal atrial fibrillation, paroxysmal ventricular tachycardia, CHF-systolic /diastolic, hypertension, metabolic syndrome, superimposed upon COPD, obstructive sleep apnea, and obesity who now has an underlying left hip fracture in need of left hip ORIF. The patient's cardiovascular care, per the patient and her sister who was present at this time, has been through the [facility] system. She states that she has undergone evaluation through the [facility] system which she believes has included both noninvasive and invasive studies including cardiac catheterization and an EPS/ablation procedure. She claims to be taking her cardiovascular medicines on a daily basis as prescribed. She states that she had an accidental fall. This resulted in the left hip fracture. She was placed in the hospital for further evaluation care. She is pending left hip ORIF. In the meantime she appears to deny any ongoing chest discomfort or difficulty breathing above and beyond her usual chronic shortness of breath/dyspnea. She does not recall any obvious palpitations. There has been no near syncope or syncope. She had an ECG performed. She appeared to be in sinus rhythm with no acute changes. A previous [facility] echocardiogram from 12/15/2015 was reviewed. According to that report her left ventricle was normal in size, wall motion, and systolic function with an LVEF reported at 56% with mild concentric LVH and the right ventricle was normal in size and function, there was mild to moderate MR, trivial TR, trivial AI, and trivial PI. According to the report her estimated RV systolic pressure had decreased compared to a previous report from 10/17/2013 with numbers decreasing from 52 mmHg to 34 mmHg. According report there is a comment that stated otherwise there was no significant change. There are no other F records available for review at this time. The patient has been placed on campus monitor. She has been placed on medical management. This has included beta-bairon therapy and antiarrhythmic therapy with flecainide/Tambocor. [] Past Medical History Allergies/Adverse Reactions: Allergies ciprofloxacin [From Cipro] Adverse Reaction (Intermediate, Verified 01/28/18 10: 32) Other messes with her heart medicine Home Medications: Ambulatory Orders Medication Instructions Recorded Albuterol Inhaler [Ventolin Hfa] 1 puff INHALATION Q4H PRN PRN 08/08/13 Fluticasone 0.05% [Flonase Nasal 1 spray NASAL DAILY 08/08/13 [place]] Ipratropium [Atrovent Aerosols] 0.25 mg INHALATION TID 08/08/13 Lisinopril [Zestril] 10 mg PO DAILY 08/08/13 Ropinirole HCl [Requip] 1 mg PO TID 02/18/14 Oxycodone HCl/Acetaminophen 1 - 2 tab PO Q4H PRN PRN #20 tab 08/02/14 [Percocet 5/325] cyclobenzaprine 10 mg tablet 10 mg PO TID PRN 08/16/17 flecainide 150 mg tablet 150 mg PO BID 08/16/17 metoprolol tartrate 25 mg tablet 25 mg PO BID 08/16/17 ranitidine 150 mg tablet 150 mg PO BID tab 08/16/17 tizanidine 4 mg capsule 4 mg PO BID cap 08/16/17 meloxicam 15 mg tablet 15 mg PO QDAY #90 tab 09/07/17 omeprazole 20 mg capsule,delayed 40 mg PO BID #120 cap 09/07/17 release lorazepam 0.5 mg tablet 0.5 mg PO QDAY PRN #10 tab 11/08/17 fluticasone 232 mcg-salmeterol 14 1 puff INHALATION BID #1 ea 01/19/18 mcg/actuation breath activated powdr prednisone 20 mg tablet 40 mg PO QDAY #20 tab 01/19/18 Diclofenac [Voltaren] 50 mg PO BIDCM 01/28/18 Furosemide [Lasix] 20 mg PO 1600 01/28/18 Furosemide [Lasix] 40 mg PO 0800 01/28/18 Hydrocodone/Acetaminophen [[place] 1 each PO Q6H PRN PRN 01/28/18 7.5-325 Tablet] Venlafaxine HCl [Venlafaxine HCl 75 mg PO BID 01/28/18 ER] Past Medical History (Chronic Problems): Chronic Problems (Last Reviewed 01/19/18 @ 16:26 by Aleyda Mendez) ESPERANZA (obstructive sleep apnea) (Chronic) Chronic respiratory failure with hypoxia (Chronic) History of tobacco use (Chronic) [id number] smoking history. 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 history - *Family History Maternal Family History: Family History (Last Reviewed 01/19/18 @ 16:26 by Aleyda Mendez) Mother Heart disease Arthritis blood clots Hypertension Father arthrits Cancer Brother Cancer Aunt Breast cancer Depression Ovarian cancer Grandmother CVA (cerebral vascular accident) Aunt Diabetes History Items: Heart Disease, Hypertension, - - Blood clot Paternal Family History: Family History (Last Reviewed 01/19/18 @ 16:26 by Aleyda Mendez) Mother Heart disease Arthritis blood clots Hypertension Father arthrits Cancer Brother Cancer Aunt Breast cancer Depression Ovarian cancer Grandmother CVA (cerebral vascular accident) Aunt Diabetes History Items: Cancer - Lung cancer Smoking Status: Former smoker Alcohol: None Drugs: None Review of Systems - Review of Systems General: Denies: Fever, Night Sweats, Fatigue Cardiovascular: Reports: Shortness of Breath. Denies: Chest Discomfort, Orthopnea, PND, Peripheral Edema, Palpitations, Lightheadedness, Dizziness, Near Syncope, Syncope Respiratory: Reports: Shortness of Breath. Denies: Cough, Sputum Production, Hemoptysis Gastrointestinal: Denies: Hematemesis, Hematochezia, Melena Genitourinary: Denies: Dysuria, Hematuria Skin: Denies: Rash Subjectve: This is a 67-year-old white female who appears to be resting reasonably comfortably at the moment in no acute distress. Objective: Vital Signs Temp Pulse Resp BP Pulse Ox 98.1 F 70 16 136/78 H 95 01/28/18 18:35 01/28/18 18:35 01/28/18 18:35 01/28/18 18:35 01/28/18 18:35 Oxygen Flow Rate (L/min) 2 Oxygen Delivery Method Nasal Cannula Weight: 275 lb 2.19 oz Body Mass Index (BMI) 45.8 Intake and Output for Last 24 Hours 01/26/18 01/27/18 01/28/18 23:59 23:59 23:59 Intake Total 1030 / 1030 Output Total 400 / 400 Balance 630 / 630 General: Awake, Cooperative, No Acute Distress, Obese Neck: No JVD Lungs: - - No obvious rales or rhonchi Cardiovascular: Regular Rhythm, Normal S1, Normal S2 Abdomen: Bowel Sounds Present, Soft, Non Tender Extremities: No edema 01/28/18 14:45: Urine Color Yellow, Urine Clarity Clear, Urine pH 6.5, Ur Specific [place] 1.010, Urine Protein Negative, Urine Glucose (UA) Normal, Urine Ketones Negative, Urine Occult Blood Negative, Urine Nitrite Negative, Urine Bilirubin Negative, Urine Urobilinogen Normal, Ur Leukocyte Esterase Negative Rhythm: Sinus rhythm EKG: Sinus rhythm ECHO: As noted above CXR: Portable chest x-ray: Preliminary evaluation: Possible cardiomegaly, however, again this is noted on a portable chest x-ray: Please see official report Assessment/Plan 1. Paroxysmal atrial fibrillation The patient reportedly has history of paroxysmal atrial fibrillation. She has been on medical management. She states she is undergone an ablation procedure in the past. She believes her rhythm is been under much better control since her ablative procedure. At the present time she appears to be remaining in sinus rhythm. She is currently on beta-bairon therapy and antiarrhythmic therapy with flecainide/ Tambocor. She may need to be on long-term systemic oral anticoagulant therapy to minimize the risk of possible thromboembolic events in the setting of recurrent paroxysmal atrial fibrillation. 2. Paroxysmal ventricular tachycardia According to medical record the patient has a history of PVT. The patient appears to be somewhat unaware of this. The present time the patient does not appear to have any obvious ongoing ventricular ectopy or dysrhythmias. Most recent echocardiogram is as noted above demonstrating overall preserved left ventricular wall motion and systolic function. She is on medical management with her beta-bairon and antiarrhythmic therapy with flecainide/Tambocor that would be more commonly used to treat atrial dysrhythmias as opposed to ventricular dysrhythmias. Thus it is unclear as to whether or not she truly has a past medical history of underlying ventricular dysrhythmias. 3. CHF According to medical records states the patient has a history of combined systolic and diastolic CHF. According to her most recent echocardiogram her overall systolic function appeared to be preserved. There was a comment that she did have diastolic function consistent with abnormal relaxation. Thus she may have an element of diastolic mediated CHF. At the present time she is on medical management. This does include diuretics and afterload reducing therapy. She does not appear to have any acute symptoms at this time. 4. Hypertension The patient will need to continue medical management as deemed appropriate. 5. Dysmetabolic syndrome The patient will continue under the care of internal medicine. 6. COPD The patient will continue under the care of internal medicine. 7. Obstructive sleep apnea To the medical record the patient has been somewhat noncompliant with her follow -up and care of her obstructive sleep apnea. 8. Obesity The patient is overweight. She will need dietary counseling and attempt to help bring her weight under better control. 9. Hip fracture The patient is reported as having a left hip fracture. She is in need of left hip ORIF. 10. Preoperative cardiovascular evaluation The patient has the aforementioned concerns. She does not appear to complain of any acute symptoms at this time. Her most recent [facility] noninvasive evaluation available for review is as noted above. At the present time the patient appears to be without acute cardiovascular symptoms or adverse event. Attempt will be made to retrieve additional F records for continuity of care purposes. She may need follow-up of her cardiac size, anatomy, and function with a follow-up transthoracic echocardiogram. However, in the interim, she does have left hip fracture. She is in need of left hip ORIF. As long as she appears to be symptomatically and hemodynamically stable on her current medications, based upon the information available for review at this time, it appears that she will proceed with her left hip fracture injury. She will need continued monitoring during and after surgery of her cardiac rate, rhythm, and blood pressure. An attempt should be made to avoid significant volume overload via IV fluids. If she becomes anemic , depending upon her hemoglobin level, she may need PRBCs to maintain adequate oxygen carrying capacity. She should also continue medical therapy and around time of her surgery as best as possible especially with respect to her beta- bairon therapy which she reportedly has been on in the past. It is noted that with her current condition or surgical procedure there is a possibility she could have recurrent cardiac dysrhythmias especially with respect to her atrial dysrhythmias, etc. If this occurs she will need further evaluation care as deemed appropriate at that time. The above was discussed with the patient with her sister present. The patient's case has previously been discussed with Dr. la. This note was generated with [employer] dictation software. It may contain incorrect words, spelling, and punctuation that were not noted in checking the note before signing.
--- NOTE | 2018-01-28 19:40 | NURSING ---
talked w/ dr. la, she is aware pt states doesn't want dr. soriano aware per dr. la no other physician from that group is available. aware she also checked and and are also not available. into discuss this w/ pt. pt now states will see agreeable to see him as doesn't want transferred or stay awaiting surgery longer. dr. la informed. primary RN Amber at bedside also heaRd conversation
[2018-01-28] MEDS: Venlafaxine XR 75 MG Capsule PO (21:14)
[2018-01-28] MEDS: tiZANidine HCl 2 MG Tablet 4 MG PO (21:15)
[2018-01-28] MEDS: Senna/Docusate Sodium 1 Tablet 2 TABLET PO (21:15)
[2018-01-28] MEDS: Pramipexole Di-HCl 0.5 MG Tablet PO (21:15)
[2018-01-28] MEDS: Flecainide 150 MG Tablet PO (21:16)
[2018-01-28] MEDS: Albuterol 2.5 MG/3 ML VIAL.NEB. INHALATION (22:05)
[2018-01-28] MEDS: oxyCODONE 5 MG Tablet PO (23:21)
[2018-01-29] VITALS (25 sets, daily range): BP systolic 101–147; BP diastolic 57–86; PULSE 60–89; RESP 16–20; TEMP 36.7–37; O2SAT 92–98; BMI 47.9; BMI 45.8
[2018-01-29] MEDS: HYDROmorphone 0.5 MG/0.5 ML SYRINGE IV ×3 (00:21→09:03)
[2018-01-29] MEDS: 0.9% Normal Saline 1,000 ML 100 ML IV (03:25)
[2018-01-29] MEDS: oxyCODONE 5 MG Tablet PO ×3 (05:25→21:08)
[2018-01-29] MEDS: Pramipexole Di-HCl 0.5 MG Tablet PO ×3 (05:25→20:56)
[2018-01-29] MEDS: Nystatin Powder 15gm Bottle 1 APPLIC TOPICAL ×2 (05:26→15:33)
[2018-01-29] MEDS: Ipratropium/Albuterol Sulfate 3 ML AMPUL.NEB INHALATION ×2 (07:24→19:20)
[2018-01-29 07:30] LABS: Absolute Lymphocyte Count 0.96 X10^3/ul (0.83-4.51); Absolute Neutrophil Count 6.4 X10^3/uL (2.0-7.7); Basophil# 0.02 X10^3/uL; Basophil% 0.2 % (0-1); Eosinophils% 1.2 % (0-5); Hematocrit 38.6 % (37-47); Hemoglobin 11.4 g/dl (12.0-15.0); Lymphocyte # 0.96 X10^3/ul (4.0); Lymphocyte % 11.6 % (19-41); Mean Corp Hgb Conc 29.5 g/gl (32-36); Mean Corpuscular Hgb 28.1 pg (27.0-32.0); Mean Corpuscular Volume 95.3 fL (81-99); Mean Platelet Vol. 9.3 fl (6.2-12.0); Monocyte# 0.72 X10^3/uL; Monocyte% 8.7 % (0-10); Neutrophil # 6.43 X10^3/uL (2.7-7.7); Neutrophil % 78.1 % (47-70); Platelet Count 285 K/mm3 (150-450); RBC Distribution Width CV 15.8 % (11.6-14.6); RBC Distribution Width SD 54.8 fl (35.1-43.9); Red Blood Count 4.05 M/mm3 (4.2-5.4); White Blood Count 8.3 K/mm3 (4.4-11.0)
[2018-01-29 07:34] LABS: POSITIVE COUNT NO; POSITIVE DIFFERENTIAL NO; POSITIVE MORPHOLOGY NO
--- NOTE | 2018-01-29 07:47 | PCM.CONS.GEN ---
Reason for Consult Date of Consultation: 01/29/18 Reason for Consultation: Preoperative evaluation History of Present Illness: The patient is a 67-year-old female, with a history as outlined below, who presented to the emergency department on January 28 after sustaining a mechanical fall in her home environment, which led to a left femoral intertrochanteric fracture. Patient has a reported history of COPD of unknown severity, chronic hypoxemic respiratory failure and severe obstructive sleep apnea, for which she is noncompliant with use of nocturnal Pap therapy. She was being followed previously by Dr. Mccullough on an outpatient basis and being worked up for pulmonary nodules. However, she was lost to follow-up. The patient endorses a smoking history of upwards of 3 packs per day ?20 years, having quit completely 12 years ago. She states that she was initially compliant with the use of her BiPAP, but over the last month has not utilized said therapy due to issues with her previous mask. 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 However, she became noncompliant with its use due to cost related issues. Therefore, at this time, she does not utilize any inhalers in her home environment. She also reportedly intermittently utilizing supplemental oxygen throughout the day, but does not recall the flow rate. It does appear that she is currently scheduled to see me in the pulmonary medicine clinic on February 02. Polysomnogram dated June 2014 revealed evidence of severe obstructive sleep apnea, for which it was recommended that the patient be placed on bilevel therapy with a pressure setting of 23/17 cm of water with a 2 L/min supplemental oxygen bleed in. Surface echocardiogram from December 2015 revealed mild concentric LVH with an ejection fraction of 55%. There was evidence of stage I diastolic dysfunction. The RVSP at that time was estimated to be 34 mmHg. Past Medical History Past Medical History (Chronic Problems): Chronic Problems (Last Reviewed 01/19/18 @ 16:26 by Aleyda Mendez) ESPERANZA (obstructive sleep apnea) (Chronic) Chronic respiratory failure with hypoxia (Chronic) History of tobacco use (Chronic) [id number] smoking history. 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) detention current use of antiarrhythmic medical therapy (Chronic) Paroxysmal atrial fibrillation (Chronic) Arthritis (Chronic) Asthma (Chronic) COPD (chronic obstructive pulmonary disease) (Chronic) Allergies ciprofloxacin [From Cipro] Adverse Reaction (Intermediate, Verified 01/28/18 10:32) Other messes with her heart medicine Home Medications: Ambulatory Orders Medication Instructions Recorded Albuterol Inhaler [Ventolin Hfa] 1 puff INHALATION Q4H PRN PRN 08/08/13 Fluticasone 0.05% [Flonase Nasal 1 spray NASAL DAILY 08/08/13 [place]] Ipratropium [Atrovent Aerosols] 0.25 mg INHALATION TID 08/08/13 Lisinopril [Zestril] 10 mg PO DAILY 08/08/13 Ropinirole HCl [Requip] 1 mg PO TID 02/18/14 Oxycodone HCl/Acetaminophen 1 - 2 tab PO Q4H PRN PRN #20 tab 08/02/14 [Percocet 5/325] cyclobenzaprine 10 mg tablet 10 mg PO TID PRN 08/16/17 flecainide 150 mg tablet 150 mg PO BID 08/16/17 metoprolol tartrate 25 mg tablet 25 mg PO BID 08/16/17 ranitidine 150 mg tablet 150 mg PO BID tab 08/16/17 tizanidine 4 mg capsule 4 mg PO BID cap 08/16/17 meloxicam 15 mg tablet 15 mg PO QDAY #90 tab 09/07/17 omeprazole 20 mg capsule,delayed 40 mg PO BID #120 cap 09/07/17 release lorazepam 0.5 mg tablet 0.5 mg PO QDAY PRN #10 tab 11/08/17 fluticasone 232 mcg-salmeterol 14 1 puff INHALATION BID #1 ea 01/19/18 mcg/actuation breath activated powdr prednisone 20 mg tablet 40 mg PO QDAY #20 tab 01/19/18 Diclofenac [Voltaren] 50 mg PO BIDCM 01/28/18 Furosemide [Lasix] 20 mg PO 1600 01/28/18 Furosemide [Lasix] 40 mg PO 0800 01/28/18 Hydrocodone/Acetaminophen [[place] 1 each PO Q6H PRN PRN 01/28/18 7.5-325 Tablet] Venlafaxine HCl [Venlafaxine HCl 75 mg PO BID 01/28/18 ER] Surgical History: - - Hysterectomy, tubal ligation, oophorectomy, knee surgery, status post cardiac radiofrequency ablation, cardiac catheterization. 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 Smoking Status: Former smoker Alcohol: None Drugs: None - *Family History Maternal History Items: Heart Disease, Hypertension, - - Blood clot Paternal History Items: Cancer - Lung cancer Review of Systems Constitutional: Denies: Chills, Fever Eyes: Denies: Blurred vision, Double vision HEENT: Denies: Head Aches, Sinus Congestion, Sinus Drainage Cardiovascular: Denies: Chest Pain, Palpitations Respiratory: Denies: Cough, Shortness of breath at rest, Sputum production Gastrointestinal: Denies: Abdominal Pain, Nausea, Vomiting Genitourinary: Denies: Dysuria Musculoskeletal: Reports: Joint Pain Skin: Denies: Rash, Wounds Neurological: Denies: Numbness, Tingling, Focal weakness Psychiatric: Reports: Anxiety, Depression Hematologic/ Lymphatic: Denies: Easy Bruising, Easy Bleeding Patient Problems: Active and Suspected Problems (Last Reviewed 01/19/18 @ 16:26 by Aleyda Mendez) Hip fracture (Acute) Preop cardiovascular exam (Acute) Objective: The patient's most recent lab work, culture data and imaging studies have all been personally reviewed. - Physical Exam General: Alert, Cooperative, No apparent distress HEENT: Atraumatic, PERRLA, Normocephalic Oral: No Gingival or Mucosal Lesions/ Ulcerations Neck: Supple, No Nodes, Trachea Midline, - - Large neck circumference with redundant soft tissue. Lungs: No rhonchi, No wheeze, No rales, Diminished Cardiovascular: Regular rate, Regular Rhythm, Normal S1, Normal S2, No murmurs Abdomen: Bowel Sounds Present, Soft, Non Tender, Obese Extremities: No clubbing, No cyanosis, No edema Skin: No breakdown Musculoskeletal: - - Left hip pain Lymphatic: No Cervical, Supraclavicular, or Inguinal Adenopathy Neurological: Neuro grossly intact Psych/Mental Status: Anxious Vital Signs Temp Pulse Resp BP Pulse Ox 98.1 F 67 18 111/57 L 95 01/29/18 03:20 01/29/18 03:59 01/29/18 03:35 01/29/18 03:20 01/29/18 03:35 Oxygen Flow Rate (L/min) 5 Oxygen Delivery Method Bi-pap Weight: 279 lb 8.738 oz Body Mass Index (BMI) 45.8 Intake and Output for Last 24 Hours 01/27/18 01/28/18 01/29/18 23:59 23:59 23:59 Intake Total 1030 / 1030 1069 / 1069 Output Total 400 / 400 600 / 600 Balance 630 / 630 469 / 469 Laboratory Tests Past 24 Hrs 01/28/18 01/29/18 01/29/18 14:45 06:33 06:33 WBC 8.3 RBC 4.05 L Hgb 11.4 L Hct 38.6 MCV 95.3 MCH 28.1 MCHC 29.5 L RDW 15.8 H RDW Differential 54.8 H Plt Count 285 MPV 9.3 Immature Gran % (Auto) 0.200 Neut % (Auto) 78.1 H Lymph % (Auto) 11.6 L [place] % (Auto) 8.7 Eos % (Auto) 1.2 Baso % (Auto) 0.2 Absolute Neuts (auto) 6.4 Absolute Lymphs (auto) 0.96 Total Counted Not Reportable Sodium Pending Potassium Pending Chloride Pending Carbon Dioxide Pending Anion Gap Pending BUN Pending Creatinine Pending Est GFR (MDRD) Af Amer Pending Est GFR (MDRD) Non-Af Pending BUN/Creatinine Ratio Pending Glucose Pending Calcium Pending Urine Color Yellow Urine Clarity Clear Urine pH 6.5 Ur Specific [place] 1.010 Urine Protein Negative Urine Glucose (UA) Normal Urine Ketones Negative Urine Occult Blood Negative Urine Nitrite Negative Urine Bilirubin Negative Urine Urobilinogen Normal Ur Leukocyte Esterase Negative Blood Type Antibody Screen 01/29/18 06:33 WBC RBC Hgb Hct MCV MCH MCHC RDW RDW Differential Plt Count MPV Immature Gran % (Auto) Neut % (Auto) Lymph % (Auto) [place] % (Auto) Eos % (Auto) Baso % (Auto) Absolute Neuts (auto) Absolute Lymphs (auto) Total Counted Sodium Potassium Chloride Carbon Dioxide Anion Gap BUN Creatinine Est GFR (MDRD) Af Amer Est GFR (MDRD) Non-Af BUN/Creatinine Ratio Glucose Calcium Urine Color Urine Clarity Urine pH Ur Specific [place] Urine Protein Urine Glucose (UA) Urine Ketones Urine Occult Blood Urine Nitrite Urine Bilirubin Urine Urobilinogen Ur Leukocyte Esterase Blood Type Cancelled Antibody Screen Cancelled Clinical Impression(s) from Imaging Studies Chest X-Ray 01/28/18 10:41 Femur X-Ray 01/28/18 10:43 Pelvis X-Ray 01/28/18 10:43 Assessment/Plan Active and Suspected Problems (Last Reviewed 01/19/18 @ 16:26 by Aleyda Mendez) Hip fracture (Acute) Preop cardiovascular exam (Acute) RECOMMENDATIONS: 1. Continue perioperative BiPAP utilization 2. Wean supplemental oxygen as tolerated 3. Encourage aggressive incentive spirometer use and mobilize patient as quickly as possible postoperatively 4. Continue perioperative bronchodilators 5. Conservative use of sedating pain medications, given tendency for alveolar hypoventilation to develop. 6. Recommend close outpatient follow-up in the pulmonary medicine clinic following discharge. IMPRESSIONS: 1. Chronic hypoxemic respiratory failure/COPD of unknown severity/obstructive sleep apnea with outpatient BiPAP noncompliance The patient was reportedly being seen by Dr. Mccullough previously. However, the patient has been lost to follow-up. She has an extensive smoking history and has been noncompliant with the use of nocturnal Pap therapy recently. The patient is at increased risk of pulmonary complications of surgery based on her personal risk factors (severity of obstructive lung disease, obesity, and ESPERANZA). She needs incentive spirometry and bronchodilators perioperatively. She may require supplemental oxygen in the immediate post-operative period. If she will be immobilized after surgery then deep vein thrombosis prophylaxis should be administered. Non invasive positive pressure ventilation should be utilized during the post operative time period, as well. Recommend close outpatient follow-up in the pulmonary medicine clinic for further optimization of her chronic underlying pulmonary conditions. 2. Left hip displaced intertrochanteric fracture Plans for surgical intervention by Dr. Murillo. 3. Personal history of pulmonary nodules Again, as noted above, the patient was lost to follow-up. Further chest imaging can be obtained for evaluation on an outpatient basis. 4. Super morbid obesity/heart failure with preserved ejection fraction/hypertension/paroxysmal atrial fibrillation/chronic pain syndrome/GERD/anxiety Complicates care, management, recovery and prognosis. Continue home medications as indicated. This note was generated with [employer] software. It may contain incorrect words, spelling, and punctuation that were not noted in checking the note before signing. Code Visit Inpatient E&M: 87795 Init Hosp L3
--- NOTE | 2018-01-29 07:53 | CON.PCM_ITS ---
Reason for Consult Date of Consultation: 01/29/18 Reason for Consultation: Preoperative evaluation History of Present Illness: The patient is a 67-year-old female, with a history as outlined below, who presented to the emergency department on January 28 after sustaining a mechanical fall in her home environment, which led to a left femoral intertrochanteric fracture. Patient has a reported history of COPD of unknown severity, chronic hypoxemic respiratory failure and severe obstructive sleep apnea, for which she is noncompliant with use of nocturnal Pap therapy. She was being followed previously by Dr. Mccullough on an outpatient basis and being worked up for pulmonary nodules. However, she was lost to follow-up. The patient endorses a smoking history of upwards of 3 packs per day ?20 years, having quit completely 12 years ago. She states that she was initially compliant with the use of her BiPAP, but over the last month has not utilized said therapy due to issues with her previous mask. The patient was reportedly told by her previous home economics teacher that she had COPD and was treated for a period of time with Symbicort. However, she became noncompliant with its use due to cost related issues. Therefore, at this time, she does not utilize any inhalers in her home environment. She also reportedly intermittently utilizing supplemental oxygen throughout the day, but does not recall the flow rate. It does appear that she is currently scheduled to see me in the pulmonary medicine clinic on February 02. Polysomnogram dated June 2014 revealed evidence of severe obstructive sleep apnea, for which it was recommended that the patient be placed on bilevel therapy with a pressure setting of 23/17 cm of water with a 2 L/min supplemental oxygen bleed in. Surface echocardiogram from December 2015 revealed mild concentric LVH with an ejection fraction of 55%. There was evidence of stage I diastolic dysfunction. The RVSP at that time was estimated to be 34 mmHg. Past Medical History Past Medical History (Chronic Problems): Chronic Problems (Last Reviewed 01/19/18 @ 16:26 by Aleyda Mendez) ESPERANZA (obstructive sleep apnea) (Chronic) Chronic respiratory failure with hypoxia (Chronic) History of tobacco use (Chronic) [id number] smoking history. 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) residential current use of antiarrhythmic medical therapy (Chronic) Paroxysmal atrial fibrillation (Chronic) Arthritis (Chronic) Asthma (Chronic) COPD (chronic obstructive pulmonary disease) (Chronic) Allergies ciprofloxacin [From Cipro] Adverse Reaction (Intermediate, Verified 01/28/18 10: 32) Other messes with her heart medicine Home Medications: Ambulatory Orders Medication Instructions Recorded Albuterol Inhaler [Ventolin Hfa] 1 puff INHALATION Q4H PRN PRN 08/08/13 Fluticasone 0.05% [Flonase Nasal 1 spray NASAL DAILY 08/08/13 [place]] Ipratropium [Atrovent Aerosols] 0.25 mg INHALATION TID 08/08/13 Lisinopril [Zestril] 10 mg PO DAILY 08/08/13 Ropinirole HCl [Requip] 1 mg PO TID 02/18/14 Oxycodone HCl/Acetaminophen 1 - 2 tab PO Q4H PRN PRN #20 tab 08/02/14 [Percocet 5/325] cyclobenzaprine 10 mg tablet 10 mg PO TID PRN 08/16/17 flecainide 150 mg tablet 150 mg PO BID 08/16/17 metoprolol tartrate 25 mg tablet 25 mg PO BID 08/16/17 ranitidine 150 mg tablet 150 mg PO BID tab 08/16/17 tizanidine 4 mg capsule 4 mg PO BID cap 08/16/17 meloxicam 15 mg tablet 15 mg PO QDAY #90 tab 09/07/17 omeprazole 20 mg capsule,delayed 40 mg PO BID #120 cap 09/07/17 release lorazepam 0.5 mg tablet 0.5 mg PO QDAY PRN #10 tab 11/08/17 fluticasone 232 mcg-salmeterol 14 1 puff INHALATION BID #1 ea 01/19/18 mcg/actuation breath activated powdr prednisone 20 mg tablet 40 mg PO QDAY #20 tab 01/19/18 Diclofenac [Voltaren] 50 mg PO BIDCM 01/28/18 Furosemide [Lasix] 20 mg PO 1600 01/28/18 Furosemide [Lasix] 40 mg PO 0800 01/28/18 Hydrocodone/Acetaminophen [[place] 1 each PO Q6H PRN PRN 01/28/18 7.5-325 Tablet] Venlafaxine HCl [Venlafaxine HCl 75 mg PO BID 01/28/18 ER] Surgical History: - - Hysterectomy, tubal ligation, oophorectomy, knee surgery, status post cardiac radiofrequency ablation, cardiac catheterization. Psychiatric History: No pertinent psych hx SMOKE INSPECTOR History: No pertinent SMOKE INSPECTOR history Smoking Status: Former smoker Alcohol: None Drugs: None - *Family History Maternal History Items: Heart Disease, Hypertension, - - Blood clot Paternal History Items: Cancer - Lung cancer Review of Systems Constitutional: Denies: Chills, Fever Eyes: Denies: Blurred vision, Double vision HEENT: Denies: Head Aches, Sinus Congestion, Sinus Drainage Cardiovascular: Denies: Chest Pain, Palpitations Respiratory: Denies: Cough, Shortness of breath at rest, Sputum production Gastrointestinal: Denies: Abdominal Pain, Nausea, Vomiting Genitourinary: Denies: Dysuria Musculoskeletal: Reports: Joint Pain Skin: Denies: Rash, Wounds Neurological: Denies: Numbness, Tingling, Focal weakness Psychiatric: Reports: Anxiety, Depression Hematologic/ Lymphatic: Denies: Easy Bruising, Easy Bleeding Patient Problems: Active and Suspected Problems (Last Reviewed 01/19/18 @ 16:26 by Aleyda Mendez) Hip fracture (Acute) Preop cardiovascular exam (Acute) Objective: The patient's most recent lab work, culture data and imaging studies have all been personally reviewed. - Physical Exam General: Alert, Cooperative, No apparent distress HEENT: Atraumatic, PERRLA, Normocephalic Oral: No Gingival or Mucosal Lesions/ Ulcerations Neck: Supple, No Nodes, Trachea Midline, - - Large neck circumference with redundant soft tissue. Lungs: No rhonchi, No wheeze, No rales, Diminished Cardiovascular: Regular rate, Regular Rhythm, Normal S1, Normal S2, No murmurs Abdomen: Bowel Sounds Present, Soft, Non Tender, Obese Extremities: No clubbing, No cyanosis, No edema Skin: No breakdown Musculoskeletal: - - Left hip pain Lymphatic: No Cervical, Supraclavicular, or Inguinal Adenopathy Neurological: Neuro grossly intact Psych/Mental Status: Anxious Vital Signs Temp Pulse Resp BP Pulse Ox 98.1 F 67 18 111/57 L 95 01/29/18 03:20 01/29/18 03:59 01/29/18 03:35 01/29/18 03:20 01/29/18 03:35 Oxygen Flow Rate (L/min) 5 Oxygen Delivery Method Bi-pap Weight: 279 lb 8.738 oz Body Mass Index (BMI) 45.8 Intake and Output for Last 24 Hours 01/27/18 01/28/18 01/29/18 23:59 23:59 23:59 Intake Total 1030 / 1030 1069 / 1069 Output Total 400 / 400 600 / 600 Balance 630 / 630 469 / 469 Laboratory Tests Past 24 Hrs 01/28/18 01/29/18 01/29/18 14:45 06:33 06:33 WBC 8.3 RBC 4.05 L Hgb 11.4 L Hct 38.6 MCV 95.3 MCH 28.1 MCHC 29.5 L RDW 15.8 H RDW Differential 54.8 H Plt Count 285 MPV 9.3 Immature Gran % (Auto) 0.200 Neut % (Auto) 78.1 H Lymph % (Auto) 11.6 L [place] % (Auto) 8.7 Eos % (Auto) 1.2 Baso % (Auto) 0.2 Absolute Neuts (auto) 6.4 Absolute Lymphs (auto) 0.96 Total Counted Not Reportable Sodium Pending Potassium Pending Chloride Pending Carbon Dioxide Pending Anion Gap Pending BUN Pending Creatinine Pending Est GFR (MDRD) Af Amer Pending Est GFR (MDRD) Non-Af Pending BUN/Creatinine Ratio Pending Glucose Pending Calcium Pending Urine Color Yellow Urine Clarity Clear Urine pH 6.5 Ur Specific [place] 1.010 Urine Protein Negative Urine Glucose (UA) Normal Urine Ketones Negative Urine Occult Blood Negative Urine Nitrite Negative Urine Bilirubin Negative Urine Urobilinogen Normal Ur Leukocyte Esterase Negative Blood Type Antibody Screen 01/29/18 06:33 WBC RBC Hgb Hct MCV MCH MCHC RDW RDW Differential Plt Count MPV Immature Gran % (Auto) Neut % (Auto) Lymph % (Auto) [place] % (Auto) Eos % (Auto) Baso % (Auto) Absolute Neuts (auto) Absolute Lymphs (auto) Total Counted Sodium Potassium Chloride Carbon Dioxide Anion Gap BUN Creatinine Est GFR (MDRD) Af Amer Est GFR (MDRD) Non-Af BUN/Creatinine Ratio Glucose Calcium Urine Color Urine Clarity Urine pH Ur Specific [place] Urine Protein Urine Glucose (UA) Urine Ketones Urine Occult Blood Urine Nitrite Urine Bilirubin Urine Urobilinogen Ur Leukocyte Esterase Blood Type Cancelled Antibody Screen Cancelled Clinical Impression(s) from Imaging Studies Chest X-Ray 01/28/18 10:41 Femur X-Ray 01/28/18 10:43 Pelvis X-Ray 01/28/18 10:43 Assessment/Plan Active and Suspected Problems (Last Reviewed 01/19/18 @ 16:26 by Aleyda Mendez) Hip fracture (Acute) Preop cardiovascular exam (Acute) RECOMMENDATIONS: 1. Continue perioperative BiPAP utilization 2. Wean supplemental oxygen as tolerated 3. Encourage aggressive incentive spirometer use and mobilize patient as quickly as possible postoperatively 4. Continue perioperative bronchodilators 5. Conservative use of sedating pain medications, given tendency for alveolar hypoventilation to develop. 6. Recommend close outpatient follow-up in the pulmonary medicine clinic following discharge. IMPRESSIONS: 1. Chronic hypoxemic respiratory failure/COPD of unknown severity/obstructive sleep apnea with outpatient BiPAP noncompliance The patient was reportedly being seen by Dr. Mccullough previously. However, the patient has been lost to follow-up. She has an extensive smoking history and has been noncompliant with the use of nocturnal Pap therapy recently. The patient is at increased risk of pulmonary complications of surgery based on her personal risk factors (severity of obstructive lung disease, obesity, and ESPERANZA). She needs incentive spirometry and bronchodilators perioperatively. She may require supplemental oxygen in the immediate post-operative period. If she will be immobilized after surgery then deep vein thrombosis prophylaxis should be administered. Non invasive positive pressure ventilation should be utilized during the post operative time period, as well. Recommend close outpatient follow-up in the pulmonary medicine clinic for further optimization of her chronic underlying pulmonary conditions. 2. Left hip displaced intertrochanteric fracture Plans for surgical intervention by Dr. Murillo. 3. Personal history of pulmonary nodules Again, as noted above, the patient was lost to follow-up. Further chest imaging can be obtained for evaluation on an outpatient basis. 4. Super morbid obesity/heart failure with preserved ejection fraction/ hypertension/paroxysmal atrial fibrillation/chronic pain syndrome/GERD/anxiety Complicates care, management, recovery and prognosis. Continue home medications as indicated. This note was generated with [employer] software. It may contain incorrect words, spelling, and punctuation that were not noted in checking the note before signing. Code Visit Inpatient E&M: 04754 Init Hosp L3
[2018-01-29 07:56] LABS: Anion Gap 3 (5-15); BUN 25 mg/dL (7-18); BUN/Creat Ratio 20.8 RATIO (10-20); Calcium,Total 8.4 mg/dL (8.5-10.1); Chloride 105 mmol/L (98-107); EST Glomerular Filtration Rate 48 mL/min (>60); Est Glom Filt Rate - Afr Amer 58 mL/min (>60); Estimated Creatinine Clearance 40.94 ml/min; Glucose 112 mg/dL (74-106); Potassium 5.3 mmol/L (3.5-5.1); Sodium Level 138 mmol/L (136-145)
[2018-01-29] MEDS: Furosemide 20 MG Tablet PO (08:15)
[2018-01-29] MEDS: Metoprolol Tartrate 25 MG Tablet PO ×2 (08:15→20:55)
[2018-01-29] MEDS: Lisinopril 10 MG Tablet PO (08:15)
[2018-01-29] MEDS: tiZANidine HCl 2 MG Tablet 4 MG PO ×2 (08:15→20:57)
[2018-01-29] MEDS: Venlafaxine XR 75 MG Capsule PO ×2 (08:16→20:54)
[2018-01-29] MEDS: Flecainide 150 MG Tablet PO ×2 (08:17→20:56)
[2018-01-29] MEDS: Pantoprazole Sodium 40 MG Tablet PO (08:17)
--- NOTE | 2018-01-29 08:24 | NURSING ---
dr soriano examined pt and spoke with her at length about surgery benefits and risks-pt is agreeable to proceed
--- NOTE | 2018-01-29 08:30 | PCM.CONS.GEN ---
Reason for Consult Date of Consultation: 01/29/18 History of Present Illness: The patient is a 67 year old female that fell yesterday at home when she went up to use the restroom. She states that it felt like her hip gave out. She does have a history of chronic back pain treated by Dr. Rosario. She had history of buttock and lateral hip pain. No significant pre-existing groin pain at the left hip. She does not routinely use a cane. Patient admits to depression and a 40 pound weight gain this winter. She admits to not using her CPAP routinely. She is a previous smoker. She is under care of a new primary care physician. due to her severe left hip pain yesterday she was brought to the emergency room, diagnosed with a hip fracture and admitted to the hospitalist service. Orthopedics appropriately consulted. [] Past Medical History Past Medical History (Chronic Problems): Chronic Problems (Last Reviewed 01/19/18 @ 16:26 by Aleyda Mendez) ESPERANZA (obstructive sleep apnea) (Chronic) Chronic respiratory failure with hypoxia (Chronic) History of tobacco use (Chronic) [id number] smoking history. 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) Paroxysmal atrial fibrillation (Chronic) Arthritis (Chronic) Asthma (Chronic) COPD (chronic obstructive pulmonary disease) (Chronic) Allergies ciprofloxacin [From Cipro] Adverse Reaction (Intermediate, Verified 01/28/18 10:32) Other messes with her heart medicine Home Medications: Ambulatory Orders Medication Instructions Recorded Albuterol Inhaler [Ventolin Hfa] 1 puff INHALATION Q4H PRN PRN 08/08/13 Fluticasone 0.05% [Flonase Nasal 1 spray NASAL DAILY 08/08/13 [place]] Ipratropium [Atrovent Aerosols] 0.25 mg INHALATION TID 08/08/13 Lisinopril [Zestril] 10 mg PO DAILY 08/08/13 Ropinirole HCl [Requip] 1 mg PO TID 02/18/14 Oxycodone HCl/Acetaminophen 1 - 2 tab PO Q4H PRN PRN #20 tab 08/02/14 [Percocet 5/325] cyclobenzaprine 10 mg tablet 10 mg PO TID PRN 08/16/17 flecainide 150 mg tablet 150 mg PO BID 08/16/17 metoprolol tartrate 25 mg tablet 25 mg PO BID 08/16/17 ranitidine 150 mg tablet 150 mg PO BID tab 08/16/17 tizanidine 4 mg capsule 4 mg PO BID cap 08/16/17 meloxicam 15 mg tablet 15 mg PO QDAY #90 tab 09/07/17 omeprazole 20 mg capsule,delayed 40 mg PO BID #120 cap 09/07/17 release lorazepam 0.5 mg tablet 0.5 mg PO QDAY PRN #10 tab 11/08/17 fluticasone 232 mcg-salmeterol 14 1 puff INHALATION BID #1 ea 01/19/18 mcg/actuation breath activated powdr prednisone 20 mg tablet 40 mg PO QDAY #20 tab 01/19/18 Diclofenac [Voltaren] 50 mg PO BIDCM 01/28/18 Furosemide [Lasix] 20 mg PO 1600 01/28/18 Furosemide [Lasix] 40 mg PO 0800 01/28/18 Hydrocodone/Acetaminophen [[place] 1 each PO Q6H PRN PRN 01/28/18 7.5-325 Tablet] Venlafaxine HCl [Venlafaxine HCl 75 mg PO BID 01/28/18 ER] Surgical History: - - Hysterectomy, tubal ligation, oophorectomy, knee surgery, status post cardiac radiofrequency ablation, cardiac catheterization. Psychiatric History: No pertinent psych hx WELFARE OFFICER History: No pertinent WELFARE OFFICER history Smoking Status: Former smoker Alcohol: None Drugs: None - *Family History Maternal History Items: Heart Disease, Hypertension, - - Blood clot Paternal History Items: Cancer - Lung cancer Patient Problems: Active and Suspected Problems (Last Reviewed 01/19/18 @ 16:26 by Aleyda Mendez) Hip fracture (Acute) Preop cardiovascular exam (Acute) Objective: Left hip is shortened and externally rotated. Left hip has pain on palpation. Skin is intact. No significant knee pain. No calf pain or swelling. BEATRICE hose and SCD on the right leg. Not tolerated on the left. Pulses are intact at the feet and ankles. No significant pain on palpation about the shoulders elbows or wrists. No significant cervical spine pain. Arms and legs seem neurovascular intact. Laboratory work and vital signs reviewed. X-rays reviewed AP and lateral of left hip with pelvis film showing a displaced intertrochanteric hip fracture. No severe underlying pre-existing hip arthritis is noted. Case discussed with emergency room physician, patient's nurse, hospitalist service - Physical Exam Vital Signs Temp Pulse Resp BP Pulse Ox 98.1 F 86 20 H 111/57 L 98 01/29/18 03:20 01/29/18 08:15 01/29/18 07:25 01/29/18 03:20 01/29/18 08:18 Oxygen Flow Rate (L/min) 5 Oxygen Delivery Method Nasal Cannula Weight: 126.8 kg Body Mass Index (BMI) 45.8 Intake and Output for Last 24 Hours 01/27/18 01/28/18 01/29/18 23:59 23:59 23:59 Intake Total 1030 / 1030 1069 / 1069 Output Total 400 / 400 600 / 600 Balance 630 / 630 469 / 469 Laboratory Tests Past 24 Hrs 01/28/18 01/29/18 01/29/18 14:45 06:33 06:33 WBC 8.3 RBC 4.05 L Hgb 11.4 L Hct 38.6 MCV 95.3 MCH 28.1 MCHC 29.5 L RDW 15.8 H RDW Differential 54.8 H Plt Count 285 MPV 9.3 Immature Gran % (Auto) 0.200 Neut % (Auto) 78.1 H Lymph % (Auto) 11.6 L [place] % (Auto) 8.7 Eos % (Auto) 1.2 Baso % (Auto) 0.2 Absolute Neuts (auto) 6.4 Absolute Lymphs (auto) 0.96 Total Counted Not Reportable Sodium 138 Potassium 5.3 H Chloride 105 Carbon Dioxide 30.0 Anion Gap 3 L BUN 25 H Creatinine 1.20 H Estim Creat Clear Calc 40.94 Est GFR (MDRD) Af Amer 58 L Est GFR (MDRD) Non-Af 48 L BUN/Creatinine Ratio 20.8 H Glucose 112 H Calcium 8.4 L Urine Color Yellow Urine Clarity Clear Urine pH 6.5 Ur Specific [place] 1.010 Urine Protein Negative Urine Glucose (UA) Normal Urine Ketones Negative Urine Occult Blood Negative Urine Nitrite Negative Urine Bilirubin Negative Urine Urobilinogen Normal Ur Leukocyte Esterase Negative Blood Type Antibody Screen 01/29/18 01/29/18 06:33 08:02 WBC RBC Hgb Hct MCV MCH MCHC RDW RDW Differential Plt Count MPV Immature Gran % (Auto) Neut % (Auto) Lymph % (Auto) [place] % (Auto) Eos % (Auto) Baso % (Auto) Absolute Neuts (auto) Absolute Lymphs (auto) Total Counted Sodium Potassium Chloride Carbon Dioxide Anion Gap BUN Creatinine Estim Creat Clear Calc Est GFR (MDRD) Af Amer Est GFR (MDRD) Non-Af BUN/Creatinine Ratio Glucose Calcium Urine Color Urine Clarity Urine pH Ur Specific [place] Urine Protein Urine Glucose (UA) Urine Ketones Urine Occult Blood Urine Nitrite Urine Bilirubin Urine Urobilinogen Ur Leukocyte Esterase Blood Type Cancelled Pending Antibody Screen Cancelled Pending Assessment/Plan Active and Suspected Problems (Last Reviewed 01/19/18 @ 16:26 by Aleyda Mendez) Hip fracture (Acute) Preop cardiovascular exam (Acute) Left hip displaced intertrochanteric fracture. Surgical intervention recommended. I recommended internal fixation with intramedullary nailing. Risk of surgery including but not limited to from operative or postoperative complications. Risk of anesthetic complications such as heart attacks, strokes, seizures, or . Risk of infections. Risk of damage to nerves arteries tendons. Risk of inadvertent fractures or dislocations. Risk of bone or wound healing complications. Possibility of nonunion malunion pain stiffness weakness. Possible need for further surgery such as hardware removal. Risk of DVT PE and other potential complications could lead to or disability explained. No guarantees were stated or implied. All of their questions were answered. Appropriate informed consent was obtained and signed for surgical intervention. Multiple medical problems including extreme obesity, sleep apnea, cardiac concerns, previous smoking history -duration and treatment per hospitalist service and consultants
--- NOTE | 2018-01-29 08:37 | CON.PCM_ITS ---
Reason for Consult Date of Consultation: 01/29/18 History of Present Illness: The patient is a 67 year old female that fell yesterday at home when she went up to use the restroom. She states that it felt like her hip gave out. She does have a history of chronic back pain treated by Dr. Rosario. She had history of buttock and lateral hip pain. No significant pre-existing groin pain at the left hip. She does not routinely use a cane. Patient admits to depression and a 40 pound weight gain this winter. She admits to not using her CPAP routinely. She is a previous smoker. She is under care of a new primary care physician. due to her severe left hip pain yesterday she was brought to the emergency room, diagnosed with a hip fracture and admitted to the hospitalist service. Orthopedics appropriately consulted. [] Past Medical History Past Medical History (Chronic Problems): Chronic Problems (Last Reviewed 01/19/18 @ 16:26 by Aleyda Mendez) ESPERANZA (obstructive sleep apnea) (Chronic) Chronic respiratory failure with hypoxia (Chronic) History of tobacco use (Chronic) [id number] smoking history. 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 medical therapy (Chronic) Paroxysmal atrial fibrillation (Chronic) Arthritis (Chronic) Asthma (Chronic) COPD (chronic obstructive pulmonary disease) (Chronic) Allergies ciprofloxacin [From Cipro] Adverse Reaction (Intermediate, Verified 01/28/18 10: 32) Other messes with her heart medicine Home Medications: Ambulatory Orders Medication Instructions Recorded Albuterol Inhaler [Ventolin Hfa] 1 puff INHALATION Q4H PRN PRN 08/08/13 Fluticasone 0.05% [Flonase Nasal 1 spray NASAL DAILY 08/08/13 [place]] Ipratropium [Atrovent Aerosols] 0.25 mg INHALATION TID 08/08/13 Lisinopril [Zestril] 10 mg PO DAILY 08/08/13 Ropinirole HCl [Requip] 1 mg PO TID 02/18/14 Oxycodone HCl/Acetaminophen 1 - 2 tab PO Q4H PRN PRN #20 tab 08/02/14 [Percocet 5/325] cyclobenzaprine 10 mg tablet 10 mg PO TID PRN 08/16/17 flecainide 150 mg tablet 150 mg PO BID 08/16/17 metoprolol tartrate 25 mg tablet 25 mg PO BID 08/16/17 ranitidine 150 mg tablet 150 mg PO BID tab 08/16/17 tizanidine 4 mg capsule 4 mg PO BID cap 08/16/17 meloxicam 15 mg tablet 15 mg PO QDAY #90 tab 09/07/17 omeprazole 20 mg capsule,delayed 40 mg PO BID #120 cap 09/07/17 release lorazepam 0.5 mg tablet 0.5 mg PO QDAY PRN #10 tab 11/08/17 fluticasone 232 mcg-salmeterol 14 1 puff INHALATION BID #1 ea 01/19/18 mcg/actuation breath activated powdr prednisone 20 mg tablet 40 mg PO QDAY #20 tab 01/19/18 Diclofenac [Voltaren] 50 mg PO BIDCM 01/28/18 Furosemide [Lasix] 20 mg PO 1600 01/28/18 Furosemide [Lasix] 40 mg PO 0800 01/28/18 Hydrocodone/Acetaminophen [[place] 1 each PO Q6H PRN PRN 01/28/18 7.5-325 Tablet] Venlafaxine HCl [Venlafaxine HCl 75 mg PO BID 01/28/18 ER] Surgical History: - - Hysterectomy, tubal ligation, oophorectomy, knee surgery, status post cardiac radiofrequency ablation, cardiac catheterization. Psychiatric History: No pertinent psych hx POST ACUTE CARE NURSE History: No pertinent POST ACUTE CARE NURSE history Smoking Status: Former smoker Alcohol: None Drugs: None - *Family History Maternal History Items: Heart Disease, Hypertension, - - Blood clot Paternal History Items: Cancer - Lung cancer Patient Problems: Active and Suspected Problems (Last Reviewed 01/19/18 @ 16:26 by Aleyda Mendez) Hip fracture (Acute) Preop cardiovascular exam (Acute) Objective: Left hip is shortened and externally rotated. Left hip has pain on palpation. Skin is intact. No significant knee pain. No calf pain or swelling. BEATRICE hose and SCD on the right leg. Not tolerated on the left. Pulses are intact at the feet and ankles. No significant pain on palpation about the shoulders elbows or wrists. No significant cervical spine pain. Arms and legs seem neurovascular intact. Laboratory work and vital signs reviewed. X-rays reviewed AP and lateral of left hip with pelvis film showing a displaced intertrochanteric hip fracture. No severe underlying pre-existing hip arthritis is noted. Case discussed with emergency room physician, patient's nurse, hospitalist service - Physical Exam Vital Signs Temp Pulse Resp BP Pulse Ox 98.1 F 86 20 H 111/57 L 98 01/29/18 03:20 01/29/18 08:15 01/29/18 07:25 01/29/18 03:20 01/29/18 08:18 Oxygen Flow Rate (L/min) 5 Oxygen Delivery Method Nasal Cannula Weight: 126.8 kg Body Mass Index (BMI) 45.8 Intake and Output for Last 24 Hours 01/27/18 01/28/18 01/29/18 23:59 23:59 23:59 Intake Total 1030 / 1030 1069 / 1069 Output Total 400 / 400 600 / 600 Balance 630 / 630 469 / 469 Laboratory Tests Past 24 Hrs 01/28/18 01/29/18 01/29/18 14:45 06:33 06:33 WBC 8.3 RBC 4.05 L Hgb 11.4 L Hct 38.6 MCV 95.3 MCH 28.1 MCHC 29.5 L RDW 15.8 H RDW Differential 54.8 H Plt Count 285 MPV 9.3 Immature Gran % (Auto) 0.200 Neut % (Auto) 78.1 H Lymph % (Auto) 11.6 L [place] % (Auto) 8.7 Eos % (Auto) 1.2 Baso % (Auto) 0.2 Absolute Neuts (auto) 6.4 Absolute Lymphs (auto) 0.96 Total Counted Not Reportable Sodium 138 Potassium 5.3 H Chloride 105 Carbon Dioxide 30.0 Anion Gap 3 L BUN 25 H Creatinine 1.20 H Estim Creat Clear Calc 40.94 Est GFR (MDRD) Af Amer 58 L Est GFR (MDRD) Non-Af 48 L BUN/Creatinine Ratio 20.8 H Glucose 112 H Calcium 8.4 L Urine Color Yellow Urine Clarity Clear Urine pH 6.5 Ur Specific [place] 1.010 Urine Protein Negative Urine Glucose (UA) Normal Urine Ketones Negative Urine Occult Blood Negative Urine Nitrite Negative Urine Bilirubin Negative Urine Urobilinogen Normal Ur Leukocyte Esterase Negative Blood Type Antibody Screen 01/29/18 01/29/18 06:33 08:02 WBC RBC Hgb Hct MCV MCH MCHC RDW RDW Differential Plt Count MPV Immature Gran % (Auto) Neut % (Auto) Lymph % (Auto) [place] % (Auto) Eos % (Auto) Baso % (Auto) Absolute Neuts (auto) Absolute Lymphs (auto) Total Counted Sodium Potassium Chloride Carbon Dioxide Anion Gap BUN Creatinine Estim Creat Clear Calc Est GFR (MDRD) Af Amer Est GFR (MDRD) Non-Af BUN/Creatinine Ratio Glucose Calcium Urine Color Urine Clarity Urine pH Ur Specific [place] Urine Protein Urine Glucose (UA) Urine Ketones Urine Occult Blood Urine Nitrite Urine Bilirubin Urine Urobilinogen Ur Leukocyte Esterase Blood Type Cancelled Pending Antibody Screen Cancelled Pending Assessment/Plan Active and Suspected Problems (Last Reviewed 01/19/18 @ 16:26 by Aleyda Mendez) Hip fracture (Acute) Preop cardiovascular exam (Acute) Left hip displaced intertrochanteric fracture. Surgical intervention recommended. I recommended internal fixation with intramedullary nailing. Risk of surgery including but not limited to from operative or postoperative complications. Risk of anesthetic complications such as heart attacks, strokes, seizures, or . Risk of infections. Risk of damage to nerves arteries tendons. Risk of inadvertent fractures or dislocations. Risk of bone or wound healing complications. Possibility of nonunion malunion pain stiffness weakness. Possible need for further surgery such as hardware removal. Risk of DVT PE and other potential complications could lead to or disability explained. No guarantees were stated or implied. All of their questions were answered. Appropriate informed consent was obtained and signed for surgical intervention. Multiple medical problems including extreme obesity, sleep apnea, cardiac concerns, previous smoking history -duration and treatment per hospitalist service and consultants
[2018-01-29] MEDS: Fluticasone 0.05% 1 SPRAY NASAL.SRY NASAL (08:58)
--- NOTE | 2018-01-29 09:00 | RAD_ITS ---
STUDY: X-RAY - PELVIS AND LEFT HIP REASON FOR EXAM: Female, 67 years old. ORIF LEFT HIP TECHNIQUE: Radiological exam, hip, unilateral, with pelvis when performed; 2 or 3 views. COMPARISON: None. FINDINGS: Compression nail in the left femoral neck and head. There is anatomic alignment. The soft tissue planes are preserved. Femoral intramedullary aura noted. There is an air-fluid level seen in the operative site. Joint space is preserved. Subcutaneous air is noted. IMPRESSION: Successful ORIF . Electronically Signed: Jimmy Diaz MD at 16:30 EDT , Service support , RAD/Hip Min 2 Views (Portable)
--- NOTE | 2018-01-29 10:12 | CM.UR ---
Patient came in with left hip fracture s/p fall. Nurse notified me that patient is going to surgery and would like to go [facility] [facility] [place]. Left vm on TCU referral line with patient's information. Will alert SW for follow up. Zion Regalado RN, [facility].
--- NOTE | 2018-01-29 10:15 | PCM.PN.HOSP ---
Patient Problems: Active and Suspected Problems (Last Reviewed 01/19/18 @ 16:26 by Aleyda Mendez) Hip fracture (Acute) Preop cardiovascular exam (Acute) Subjective: The patient is a 67 y/o F w/ PMHx: Anxiety and Depression, ESPERANZA Non-compliant w/ CPAP, Chronic Asthma/COPD w/ Chronic Hypoxic Respiratory Failure, Prior Heavy 90-pack year tobacco use history, Morbid Obesity, PAF, Hx NSVT, Chronic Systolic and Diastolic CHF, Hx Pulmonary Nodules who presents to the [facility] ED on 01/28/18 w/ history of fall onto her left hip while attempting to reach the restroom. Plain film noting L intertrochanteric proximal femoral fracture. Orthopedic surgery consulted from ED. Admitted to DC, Dr. Murillo consulted and planned OR, deferred IVFs given notable CHF history, Mag normal, UA unremarkable, lazar in place, continue to monitor I/Os with very judicious IVFs given CHF history, frequent positioning, fall precautions. Pain, anti-emetic regimen. Pending ECHO request. Cardiology and Pulmonary assessment prior to transition to the OR with clearance but noted elevated risk secondary to poor controlled co-morbidities, non-compliance with all medications, follow-up and CPAP usage. PT/OT following operative intervention. CM consulted for discharge planning with plan for TCU. Patient overnight with no acute events per self and per nursing report. She did have labile mood and was mildly anxious and did discuss at length the reasoning for her failure to comply with medications and home CPAP which includes financial barriers and mask discomfort. Patient was evaluated by cardiology and pulmonary with decision to proceed with operative intervention understanding risks and continued attempts while inpatient and upon discharge to improve cardiac and pulmonary status. Patient evaluated per Dr. Murillo with plan for transition to operative intervention. Patient amenable to transition to TCU following for therapies. Patient does note ongoing pain to the hip and is requesting additional pain medication however did have some mild lethargy and hypoxia when off CPAP with increased pain regimen. Patient denies fevers, chills, nausea, emesis, abdominal pain, chest pain or dyspnea. Objective: Physical Examination: General: awake, alert, oriented x 3 and cooperative, laying in the bed, ongoing pain. Skin: normal color, turgor, no icterus, cyanosis. HEENT: AT/NC, EOMI, PERRLA, moderately dry MM. Lungs: Diminished BS BL, > bases, no marked no rales, ronchi or wheezing to anterior and side exam, laying flat without issue. Heart: Regular rate and rhythm; no gallop, rub audible. Abdomen: soft, morbidly obese, NTTP, ND, normal BS. Extremities: no cyanosis, clubbing or LE edema, shortened and rotated LUE. Neurological: patient awake, alert, oriented x 3; cognitive function intact; pupils equally reactive to light and accomodation; cranial nerves II-XII grossly normal, moving extremities except expected LLE s/p fall w/ hip fracture, strength accordingly severe globally decreased secondary to acute presentation. Psychiatric: affect appears more calm this AM, was tearful during discussions, admits to anxiety and depression. Vitals/I&O's: Vital Signs Temp Pulse Resp BP Pulse Ox 98.1 F 76 18 141/78 H 94 01/29/18 08:44 01/29/18 08:46 01/29/18 08:44 01/29/18 08:44 01/29/18 08:44 Oxygen Flow Rate (L/min) 5 Oxygen Delivery Method Nasal Cannula Weight: 279 lb 8.738 oz Body Mass Index (BMI) 45.8 Intake and Output for Last 24 Hours 01/27/18 01/28/18 01/29/18 23:59 23:59 23:59 Intake Total 1030 / 1030 1069 / 1069 Output Total 400 / 400 600 / 600 Balance 630 / 630 469 / 469 Laboratory Results 01/28/18 14:45: Urine Color Yellow, Urine Clarity Clear, Urine pH 6.5, Ur Specific [place] 1.010, Urine Protein Negative, Urine Glucose (UA) Normal, Urine Ketones Negative, Urine Occult Blood Negative, Urine Nitrite Negative, Urine Bilirubin Negative, Urine Urobilinogen Normal, Ur Leukocyte Esterase Negative 01/29/18 06:33: WBC 8.3, RBC 4.05 L, Hgb 11.4 L, Hct 38.6, MCV 95.3, MCH 28.1, MCHC 29.5 L, RDW 15.8 H, RDW Differential 54.8 H, Plt Count 285, MPV 9.3, Immature Gran % (Auto) 0.200, Neut % (Auto) 78.1 H, Lymph % (Auto) 11.6 L, [place] % (Auto) 8.7, Eos % (Auto) 1.2, Baso % (Auto) 0.2, Absolute Neuts (auto) 6.4, Absolute Lymphs (auto) 0.96, Total Counted Not Reportable 01/29/18 06:33: Sodium 138, Potassium 5.3 H, Chloride 105, Carbon Dioxide 30.0, Anion Gap 3 L, BUN 25 H, Creatinine 1.20 H, Estim Creat Clear Calc 40.94, Est GFR (MDRD) Af Amer 58 L, Est GFR (MDRD) Non-Af 48 L, BUN/Creatinine Ratio 20.8 H, Glucose 112 H, Calcium 8.4 L 01/29/18 06:33: Blood Type Cancelled, Antibody Screen Cancelled 01/29/18 08:02: Blood Type O POSITIVE, Antibody Screen NEGATIVE Current Medications Acetaminophen (Tylenol) 650 mg PO Q6H PRN PRN PRN Reason: Mild Pain (scale 0-3)/T>100.7 Last Admin: 01/28/18 13:52 Dose: 650 mg Al Hydroxide/Mg Hydroxide (Mylanta Ii) 30 ml PO Q6H PRN PRN PRN Reason: Gastric burning Albuterol Sulfate (Ventolin Aerosols) 2.5 mg INHALATION Q2H PRN PRN PRN Reason: dyspnea, wheezing Last Admin: 01/28/18 22:05 Dose: 2.5 mg Albuterol/Ipratropium (Duoneb) 3 ml INHALATION Q6HWA.RT [facility] Last Admin: 01/29/18 07:24 Dose: 3 ml Enoxaparin Sodium (Lovenox) 40 mg SC DAILY@0600 [facility] Last Admin: 01/28/18 20:13 Dose: Not Given Flecainide Acetate (Tambocor) 150 mg PO BID [facility] Last Admin: 01/29/18 08:17 Dose: 150 mg Fluticasone Propionate (Flonase Nasal [place]) 1 spray NASAL DAILY [facility] Last Admin: 01/29/18 08:58 Dose: 1 spray Furosemide (Lasix) 20 mg PO DAILY [facility] Last Admin: 01/29/18 08:15 Dose: 20 mg Hydralazine HCl (Apresoline Iv) 10 mg IV Q4H PRN PRN PRN Reason: SBP > 160 Hydromorphone HCl (Dilaudid Inj) 0.5 - 1 mg IV Q2H PRN PRN PRN Reason: SEVERE PAIN (6-10/10) Last Admin: 01/29/18 09:03 Dose: 0.5 mg Hydromorphone HCl (Dilaudid Inj) 0.5 - 1 mg IV Q2H PRN PRN PRN Reason: SEVERE PAIN (6-10/10) Lisinopril (Zestril) 10 mg PO DAILY [facility] Last Admin: 01/29/18 08:15 Dose: 10 mg Lorazepam (Ativan) 0.5 mg PO DAILY PRN PRN Reason: ANXIETY Magnesium Hydroxide (Milk Of Magnesia) 30 ml PO DAILY PRN PRN PRN Reason: Constipation Metoprolol Tartrate (Lopressor (Beta Katerine)) 25 mg PO BID [facility] Last Admin: 01/29/18 08:15 Dose: 25 mg Nystatin (Mycostatin Powder) 1 applic TOPICAL TID [facility] PRN Reason: Protocol Last Admin: 01/29/18 05:26 Dose: 1 applicatio Ondansetron HCl (Zofran) 4 mg IV Q6H PRN PRN PRN Reason: NAUSEA Oxycodone HCl (Oxyir) 5 - 10 mg PO Q4H PRN PRN PRN Reason: Moderate Pain (pain scale 4-5) Last Admin: 01/29/18 05:25 Dose: 10 mg Pantoprazole Sodium (Protonix) 40 mg PO DAILY [facility] Last Admin: 01/29/18 08:17 Dose: 40 mg Pramipexole Dihydrochloride (Mirapex) 0.5 mg PO TID [facility] Last Admin: 01/29/18 05:25 Dose: 0.5 mg Psyllium Hydrophilic Mucilloid (Metamucil) 1 packet PO DAILY PRN PRN PRN Reason: CONSTIPATION Senna/Docusate Sodium (Senokot-S, Yamilex-Colace) 2 tablet PO BID [facility] Last Admin: 01/29/18 08:17 Dose: Not Given Sodium Chloride () 5 - 30 ml IV UD PRN PRN Reason: SALINE FLUSH Tizanidine HCl (Zanaflex) 4 mg PO BID [facility] Last Admin: 01/29/18 08:15 Dose: 4 mg Venlafaxine HCl (Effexor Xr) 75 mg PO BID [facility] Last Admin: 01/29/18 08:16 Dose: 75 mg Medical Necessity - Tobacco Use Smoking Status: Former smoker Assessment/Plan Active and Suspected Problems (Last Reviewed 01/19/18 @ 16:26 by Aleyda Mendez) Hip fracture (Acute) Preop cardiovascular exam (Acute) The patient is a 67 y/o F w/ PMHx: Anxiety and Depression, ESPERANZA Non-compliant w/ CPAP, Chronic Asthma/COPD w/ Chronic Hypoxic Respiratory Failure, Prior Heavy 90-pack year tobacco use history, Morbid Obesity, PAF, Hx NSVT, Chronic Systolic and Diastolic CHF, Hx Pulmonary Nodules who presents to the [facility] ED on 01/28/18 w/ history of fall onto her left hip while attempting to reach the restroom. (1) General debility, L hip pain s/p mechanical fall w/ L intertrochanteric proximal femoral fracture: Plain film noting L intertrochanteric proximal femoral fracture. Orthopedic surgery consulted from ED. Admitted to DC, Dr. Murillo consulted and planned OR, deferred IVFs given notable CHF history, Mag normal, UA unremarkable, lazar in place, continue to monitor I/Os with very judicious IVFs given CHF history, frequent positioning, fall precautions. Pain, anti-emetic regimen. Pending ECHO request. Cardiology and Pulmonary assessment prior to transition to the OR with clearance but noted elevated risk secondary to poor controlled co-morbidities, non-compliance with all medications, follow-up and CPAP usage. PT/OT following operative intervention. CM consulted for discharge planning with plan for TCU. (2) PAF, Hx NSVT: Not anticoagulated, would be poor candidate given non-compliance, maintain on home regimen metoprolol, flecainide. ECHO ordered. Cardiology evaluation performed prior to OR. No recent stress or cardiac catheterization noted. (3) Chronic Systolic and Diastolic CHF: Previously following w/ Dr. Ruiz, transitioned to Dr. Mercado but has been noted to miss several of her office visits and admits to incorrectly taking her medications secondary to attempts to lengthen span of rx and also depending on her momentary decision. Maintain on home asa, BB, ACEI, lisinopril, lasix regimen. ECHO ordered. Cardiology evaluation performed prior to OR. (4) Chronic Asthma/COPD w/ Chronic Hypoxic Respiratory Failure w/ Known Pulmonary Nodules: Patient notes unclear amount continuous O2, non-complaint, only wears q HS occasionally moreso at night, maintained currently on 2LNC, ATC duonebs, PRN albuterol, HOB, IS. Given severity of pulmonary disease and high risk for OR, Dr. Davis consulted and evaluated patient with plan to continue to follow-up post-operatively. (5) Morbid Obesity: Weight loss and lifestyle changes encouraged, nutrition consulted for education and teaching. (6) Prior Heavy 90-pack year tobacco use history: Encourage continued cessation. (7) ESPERANZA: Admits to non-compliance w/ CPAP, amenable to trial here, started q HS with adjustments per Pulmonary discretion. (8) Anxiety and Depression: Maintain on home regimen effexor, ativan. (9) DVT prophylaxis: SCDs, holding chemoprophylaxis for OR today. Code Visit Inpatient E&M: 42627 Subs Hosp L2
--- NOTE | 2018-01-29 10:22 | PN_ITS ---
Patient Problems: Active and Suspected Problems (Last Reviewed 01/19/18 @ 16:26 by Aleyda Mendez) Hip fracture (Acute) Preop cardiovascular exam (Acute) Subjective: The patient is a 67 y/o F w/ PMHx: Anxiety and Depression, ESPERANZA Non-compliant w/ CPAP, Chronic Asthma/COPD w/ Chronic Hypoxic Respiratory Failure, Prior Heavy 90 -pack year tobacco use history, Morbid Obesity, PAF, Hx NSVT, Chronic Systolic and Diastolic CHF, Hx Pulmonary Nodules who presents to the [facility] ED on 01/28/18 w / history of fall onto her left hip while attempting to reach the restroom. Plain film noting L intertrochanteric proximal femoral fracture. Orthopedic surgery consulted from ED. Admitted to [place], Dr. Murillo consulted and planned OR, deferred IVFs given notable CHF history, Mag normal, UA unremarkable, lazar in place, continue to monitor I/Os with very judicious IVFs given CHF history, frequent positioning, fall precautions. Pain, anti-emetic regimen. Pending ECHO request. Cardiology and Pulmonary assessment prior to transition to the OR with clearance but noted elevated risk secondary to poor controlled co-morbidities, non-compliance with all medications, follow-up and CPAP usage. PT/OT following operative intervention. CM consulted for discharge planning with plan for TCU. Patient overnight with no acute events per self and per nursing report. She did have labile mood and was mildly anxious and did discuss at length the reasoning for her failure to comply with medications and home CPAP which includes financial barriers and mask discomfort. Patient was evaluated by cardiology and pulmonary with decision to proceed with operative intervention understanding risks and continued attempts while inpatient and upon discharge to improve cardiac and pulmonary status. Patient evaluated per Dr. Murillo with plan for transition to operative intervention. Patient amenable to transition to TCU following for therapies. Patient does note ongoing pain to the hip and is requesting additional pain medication however did have some mild lethargy and hypoxia when off CPAP with increased pain regimen. Patient denies fevers, chills, nausea, emesis, abdominal pain, chest pain or dyspnea. Objective: Physical Examination: General: awake, alert, oriented x 3 and cooperative, laying in the bed, ongoing pain. Skin: normal color, turgor, no icterus, cyanosis. HEENT: AT/NC, EOMI, PERRLA, moderately dry MM. Lungs: Diminished BS BL, > bases, no marked no rales, ronchi or wheezing to anterior and side exam, laying flat without issue. Heart: Regular rate and rhythm; no gallop, rub audible. Abdomen: soft, morbidly obese, NTTP, ND, normal BS. Extremities: no cyanosis, clubbing or LE edema, shortened and rotated LUE. Neurological: patient awake, alert, oriented x 3; cognitive function intact; pupils equally reactive to light and accomodation; cranial nerves II-XII grossly normal, moving extremities except expected LLE s/p fall w/ hip fracture , strength accordingly severe globally decreased secondary to acute presentation. Psychiatric: affect appears more calm this AM, was tearful during discussions, admits to anxiety and depression. Vitals/I&O's: Vital Signs Temp Pulse Resp BP Pulse Ox 98.1 F 76 18 141/78 H 94 01/29/18 08:44 01/29/18 08:46 01/29/18 08:44 01/29/18 08:44 01/29/18 08:44 Oxygen Flow Rate (L/min) 5 Oxygen Delivery Method Nasal Cannula Weight: 279 lb 8.738 oz Body Mass Index (BMI) 45.8 Intake and Output for Last 24 Hours 01/27/18 01/28/18 01/29/18 23:59 23:59 23:59 Intake Total 1030 / 1030 1069 / 1069 Output Total 400 / 400 600 / 600 Balance 630 / 630 469 / 469 Laboratory Results 01/28/18 14:45: Urine Color Yellow, Urine Clarity Clear, Urine pH 6.5, Ur Specific [place] 1.010, Urine Protein Negative, Urine Glucose (UA) Normal, Urine Ketones Negative, Urine Occult Blood Negative, Urine Nitrite Negative, Urine Bilirubin Negative, Urine Urobilinogen Normal, Ur Leukocyte Esterase Negative 01/29/18 06:33: WBC 8.3, RBC 4.05 L, Hgb 11.4 L, Hct 38.6, MCV 95.3, MCH 28.1, MCHC 29.5 L, RDW 15.8 H, RDW Differential 54.8 H, Plt Count 285, MPV 9.3, Immature Gran % (Auto) 0.200, Neut % (Auto) 78.1 H, Lymph % (Auto) 11.6 L, [place] % (Auto) 8.7, Eos % (Auto) 1.2, Baso % (Auto) 0.2, Absolute Neuts (auto) 6.4, Absolute Lymphs (auto) 0.96, Total Counted Not Reportable 01/29/18 06:33: Sodium 138, Potassium 5.3 H, Chloride 105, Carbon Dioxide 30.0, Anion Gap 3 L, BUN 25 H, Creatinine 1.20 H, Estim Creat Clear Calc 40.94, Est GFR (MDRD) Af Amer 58 L, Est GFR (MDRD) Non-Af 48 L, BUN/Creatinine Ratio 20.8 H , Glucose 112 H, Calcium 8.4 L 01/29/18 06:33: Blood Type Cancelled, Antibody Screen Cancelled 01/29/18 08:02: Blood Type O POSITIVE, Antibody Screen NEGATIVE Current Medications Acetaminophen (Tylenol) 650 mg PO Q6H PRN PRN PRN Reason: Mild Pain (scale 0-3)/T>100.7 Last Admin: 01/28/18 13:52 Dose: 650 mg Al Hydroxide/Mg Hydroxide (Mylanta Ii) 30 ml PO Q6H PRN PRN PRN Reason: Gastric burning Albuterol Sulfate (Ventolin Aerosols) 2.5 mg INHALATION Q2H PRN PRN PRN Reason: dyspnea, wheezing Last Admin: 01/28/18 22:05 Dose: 2.5 mg Albuterol/Ipratropium (Duoneb) 3 ml INHALATION Q6HWA.RT [facility] Last Admin: 01/29/18 07:24 Dose: 3 ml Enoxaparin Sodium (Lovenox) 40 mg SC DAILY@0600 [facility] Last Admin: 01/28/18 20:13 Dose: Not Given Flecainide Acetate (Tambocor) 150 mg PO BID [facility] Last Admin: 01/29/18 08:17 Dose: 150 mg Fluticasone Propionate (Flonase Nasal [place]) 1 spray NASAL DAILY [facility] Last Admin: 01/29/18 08:58 Dose: 1 spray Furosemide (Lasix) 20 mg PO DAILY [facility] Last Admin: 01/29/18 08:15 Dose: 20 mg Hydralazine HCl (Apresoline Iv) 10 mg IV Q4H PRN PRN PRN Reason: SBP > 160 Hydromorphone HCl (Dilaudid Inj) 0.5 - 1 mg IV Q2H PRN PRN PRN Reason: SEVERE PAIN (6-10/10) Last Admin: 01/29/18 09:03 Dose: 0.5 mg Hydromorphone HCl (Dilaudid Inj) 0.5 - 1 mg IV Q2H PRN PRN PRN Reason: SEVERE PAIN (6-10/10) Lisinopril (Zestril) 10 mg PO DAILY [facility] Last Admin: 01/29/18 08:15 Dose: 10 mg Lorazepam (Ativan) 0.5 mg PO DAILY PRN PRN Reason: ANXIETY Magnesium Hydroxide (Milk Of Magnesia) 30 ml PO DAILY PRN PRN PRN Reason: Constipation Metoprolol Tartrate (Lopressor (Beta Katerine)) 25 mg PO BID [facility] Last Admin: 01/29/18 08:15 Dose: 25 mg Nystatin (Mycostatin Powder) 1 applic TOPICAL TID [facility] PRN Reason: Protocol Last Admin: 01/29/18 05:26 Dose: 1 applicatio Ondansetron HCl (Zofran) 4 mg IV Q6H PRN PRN PRN Reason: NAUSEA Oxycodone HCl (Oxyir) 5 - 10 mg PO Q4H PRN PRN PRN Reason: Moderate Pain (pain scale 4-5) Last Admin: 01/29/18 05:25 Dose: 10 mg Pantoprazole Sodium (Protonix) 40 mg PO DAILY [facility] Last Admin: 01/29/18 08:17 Dose: 40 mg Pramipexole Dihydrochloride (Mirapex) 0.5 mg PO TID [facility] Last Admin: 01/29/18 05:25 Dose: 0.5 mg Psyllium Hydrophilic Mucilloid (Metamucil) 1 packet PO DAILY PRN PRN PRN Reason: CONSTIPATION Senna/Docusate Sodium (Senokot-S, Yamilex-Colace) 2 tablet PO BID [facility] Last Admin: 01/29/18 08:17 Dose: Not Given Sodium Chloride () 5 - 30 ml IV UD PRN PRN Reason: SALINE FLUSH Tizanidine HCl (Zanaflex) 4 mg PO BID [facility] Last Admin: 01/29/18 08:15 Dose: 4 mg Venlafaxine HCl (Effexor Xr) 75 mg PO BID [facility] Last Admin: 01/29/18 08:16 Dose: 75 mg Medical Necessity - Tobacco Use Smoking Status: Former smoker Assessment/Plan Active and Suspected Problems (Last Reviewed 01/19/18 @ 16:26 by Aleyda Mendez) Hip fracture (Acute) Preop cardiovascular exam (Acute) The patient is a 67 y/o F w/ PMHx: Anxiety and Depression, ESPERANZA Non-compliant w/ CPAP, Chronic Asthma/COPD w/ Chronic Hypoxic Respiratory Failure, Prior Heavy 90 -pack year tobacco use history, Morbid Obesity, PAF, Hx NSVT, Chronic Systolic and Diastolic CHF, Hx Pulmonary Nodules who presents to the [facility] ED on 01/28/18 w / history of fall onto her left hip while attempting to reach the restroom. (1) General debility, L hip pain s/p mechanical fall w/ L intertrochanteric proximal femoral fracture: Plain film noting L intertrochanteric proximal femoral fracture. Orthopedic surgery consulted from ED. Admitted to [place], Dr. Murillo consulted and planned OR, deferred IVFs given notable CHF history, Mag normal, UA unremarkable, lazar in place, continue to monitor I/Os with very judicious IVFs given CHF history, frequent positioning, fall precautions. Pain, anti-emetic regimen. Pending ECHO request. Cardiology and Pulmonary assessment prior to transition to the OR with clearance but noted elevated risk secondary to poor controlled co-morbidities, non-compliance with all medications, follow- up and CPAP usage. PT/OT following operative intervention. CM consulted for discharge planning with plan for TCU. (2) PAF, Hx NSVT: Not anticoagulated, would be poor candidate given non- compliance, maintain on home regimen metoprolol, flecainide. ECHO ordered. Cardiology evaluation performed prior to OR. No recent stress or cardiac catheterization noted. (3) Chronic Systolic and Diastolic CHF: Previously following w/ Dr. Ruiz, transitioned to Dr. Mercado but has been noted to miss several of her office visits and admits to incorrectly taking her medications secondary to attempts to lengthen span of rx and also depending on her momentary decision. Maintain on home asa, BB, ACEI, lisinopril, lasix regimen. ECHO ordered. Cardiology evaluation performed prior to OR. (4) Chronic Asthma/COPD w/ Chronic Hypoxic Respiratory Failure w/ Known Pulmonary Nodules: Patient notes unclear amount continuous O2, non-complaint, only wears q HS occasionally moreso at night, maintained currently on 2LNC, ATC duonebs, PRN albuterol, HOB, IS. Given severity of pulmonary disease and high risk for OR, Dr. Davis consulted and evaluated patient with plan to continue to follow-up post-operatively. (5) Morbid Obesity: Weight loss and lifestyle changes encouraged, nutrition consulted for education and teaching. (6) Prior Heavy 90-pack year tobacco use history: Encourage continued cessation. (7) ESPERANZA: Admits to non-compliance w/ CPAP, amenable to trial here, started q HS with adjustments per Pulmonary discretion. (8) Anxiety and Depression: Maintain on home regimen effexor, ativan. (9) DVT prophylaxis: SCDs, holding chemoprophylaxis for OR today. Code Visit Inpatient E&M: 03557 Subs Hosp L2
--- NOTE | 2018-01-29 11:05 | NURSING ---
attempt to call report unsuccessful to pacu [phone]
--- NOTE | 2018-01-29 11:15 | NURSING ---
pt transferred to PACU preop on telemonitor and o2
[2018-01-29] MEDS: Cefazolin 2 GM in 0.9% Normal Saline 100 ML IV (12:21)
--- NOTE | 2018-01-29 13:34 | PCM.OP.BLANK ---
Operative Report Date of Procedure: 01/29/18 Preoperative diagnosis: Left hip displaced intertrochanteric fracture Postoperative diagnosis: Same Title of operation: Left hip open reduction internal fixation, intramedullary nail fixation, locked Surgeon: Dr. Yoseph Murillo Fan Mail Editor: Alejandra Alston PA-C Anesthesia: Spinal followed by LMA /general Anesthesiologist: Dr. Gonsalves Medications: Ancef Indications for surgery: Patient is an 67 -year-old female sustained a left hip fracture yesterday. Patient explained diagnosis and treatment options with her nurse present. Patient evaluated by the medical services. Patient did wish to have surgery. Appropriate informed consent obtained and signed. Findings: Patient had a displaced intertrochanteric hip fracture. They underwent standard reduction, internal fixation using a [place] short gamma nail. X-rays taken throughout. portfolio assistant, physician community program assistant, was utilized throughout the entire procedure. They were vital to the procedure from beginning to end. They help with patient transfer, patient padding and positioning, fracture reduction, maintenance of fracture reduction, internal fixation of implants, wound closure, bandage application, patient transfer. Without instructor adjunct surgical technician, surgical time would have been significantly increased and surgical outcome could have been less optimal. Procedure: Patient was taken to the operating room. Placed under a general anesthetic after spinal anesthesia was seemingly not successful and transferred to the operating table with the help of the community program assistant. With the help of the community program assistant patient was prepped and padded for surgery. Left foot was well-padded and placed in the traction boot. Right lower extremity was abducted and flexed out of harm's way. BEATRICE hose and SCDs utilized. Fluoroscopy was brought in. With the help of the community program assistant and manipulation of the limb, reduction was nicely obtained as verified under AP lateral and oblique fluoroscopic images. Reduction was improved with anterior to posterior pressure on the fracture site. Was also done throughout the procedure with the help of the community program assistant as needed. Left hip was prepped padded draped in usual orthopedic sterile fashion for the procedure. Longitudinal incision was made just proximal to the greater trochanter. Taken through skin and subcutaneous tissue. Bleeding controlled with the Bovie. sharp awl was placed on the tip of the greater trochanter. Position verified under AP and lateral fluoroscopic images. This was then taken down inside the bone. Slightly bent ball-tipped guide aura was then placed from the tip of the greater trochanter into the intra-medullary canal of the femur. Its position verified radiographically. Reamer was then done over the guide pin with the help of the community program assistant holding the soft tissue protector appropriately. Once reaming was done we placed the short 125? angle device over the guidepin. This was easily introduced. Guide aura removed. Outrigger device was utilized to position a guidepin from the lateral cortex of the femur across the fracture site and into the femoral head in a good position centrally, as noted on AP lateral and oblique fluoroscopic images. This was measured. Appropriate reaming done. Appreciate length lag screw was placed from the lateral cortex of the femur into the femoral head. A small amount of the screw was noted to be protruding laterally as planned. No cartilage penetration of the femoral head noted on any x-ray. Fracture was then compressed with the outrigger device. Screw was placed seated down completely, confirmed, and then loosened one fourth turn. We then used the outrigger device to place distal cross locking screw under standard technique. This was confirmed to be of adequate length in good position on AP and lateral images. Outrigger device removed. Final set of AP and lateral proximal x-rays taken and saved. His were thoroughly irrigated. Closing by the community program assistant with deep 0 Vicryl, mid layer 0 Vicryl, inverted 2-0 Vicryl, skin mami. Puncture wounds closed with inverted 2-0 Vicryl and mami. Xeroform 4 x 4's ABD tape applied. Patient was awoken from their anesthetic, transferred back to their own bed with the help of the community program assistant and into recovery room in satisfactory condition. Patient will continue to be admitted to the hospital under the hospitalist service. This note was generated with [employer] dictation software. It may contain incorrect words, spelling, and punctuation that were not noted in checking the note before signing.
--- NOTE | 2018-01-29 13:40 | OP.PCM_ITS ---
Operative Report Date of Procedure: 01/29/18 Preoperative diagnosis: Left hip displaced intertrochanteric fracture Postoperative diagnosis: Same Title of operation: Left hip open reduction internal fixation, intramedullary nail fixation, locked Surgeon: Dr. Yoseph Murillo Svp Marketing: Alejandra Alston PA-C Anesthesia: Spinal followed by LMA /general Anesthesiologist: Dr. Gonsalves Medications: Ancef Indications for surgery: Patient is an 67 -year-old female sustained a left hip fracture yesterday. Patient explained diagnosis and treatment options with her nurse present. Patient evaluated by the medical services. Patient did wish to have surgery. Appropriate informed consent obtained and signed. Findings: Patient had a displaced intertrochanteric hip fracture. They underwent standard reduction, internal fixation using a [place] short gamma nail. X-rays taken throughout. administrative sales assistant, physician assistant manager airside operations, was utilized throughout the entire procedure. They were vital to the procedure from beginning to end. They help with patient transfer, patient padding and positioning, fracture reduction, maintenance of fracture reduction, internal fixation of implants, wound closure, bandage application, patient transfer. Without surgical instruments inspector, surgical time would have been significantly increased and surgical outcome could have been less optimal. Procedure: Patient was taken to the operating room. Placed under a general anesthetic after spinal anesthesia was seemingly not successful and transferred to the operating table with the help of the assistant manager airside operations. With the help of the assistant manager airside operations patient was prepped and padded for surgery. Left foot was well- padded and placed in the traction boot. Right lower extremity was abducted and flexed out of harm's way. BEATRICE hose and SCDs utilized. Fluoroscopy was brought in. With the help of the assistant manager airside operations and manipulation of the limb, reduction was nicely obtained as verified under AP lateral and oblique fluoroscopic images. Reduction was improved with anterior to posterior pressure on the fracture site. Was also done throughout the procedure with the help of the assistant manager airside operations as needed. Left hip was prepped padded draped in usual orthopedic sterile fashion for the procedure. Longitudinal incision was made just proximal to the greater trochanter. Taken through skin and subcutaneous tissue. Bleeding controlled with the Bovie. sharp awl was placed on the tip of the greater trochanter. Position verified under AP and lateral fluoroscopic images. This was then taken down inside the bone. Slightly bent ball-tipped guide aura was then placed from the tip of the greater trochanter into the intra-medullary canal of the femur. Its position verified radiographically. Reamer was then done over the guide pin with the help of the assistant manager airside operations holding the soft tissue protector appropriately. Once reaming was done we placed the short 125? angle device over the guidepin. This was easily introduced. Guide aura removed. Outrigger device was utilized to position a guidepin from the lateral cortex of the femur across the fracture site and into the femoral head in a good position centrally , as noted on AP lateral and oblique fluoroscopic images. This was measured. Appropriate reaming done. Appreciate length lag screw was placed from the lateral cortex of the femur into the femoral head. A small amount of the screw was noted to be protruding laterally as planned. No cartilage penetration of the femoral head noted on any x-ray. Fracture was then compressed with the outrigger device. Screw was placed seated down completely, confirmed, and then loosened one fourth turn. We then used the outrigger device to place distal cross locking screw under standard technique. This was confirmed to be of adequate length in good position on AP and lateral images. Outrigger device removed. Final set of AP and lateral proximal x-rays taken and saved. His were thoroughly irrigated. Closing by the assistant manager airside operations with deep 0 Vicryl, mid layer 0 Vicryl, inverted 2-0 Vicryl, skin mami. Puncture wounds closed with inverted 2-0 Vicryl and mami. Xeroform 4 x 4's ABD tape applied. Patient was awoken from their anesthetic, transferred back to their own bed with the help of the assistant manager airside operations and into recovery room in satisfactory condition. Patient will continue to be admitted to the hospital under the hospitalist service. This note was generated with [employer] dictation software. It may contain incorrect words, spelling, and punctuation that were not noted in checking the note before signing.
[2018-01-29] MEDS: Ondansetron 4 MG/2 ML Vial IV (17:08)
[2018-01-29] MEDS: Cefazolin 1 GM/50 ML BAG IV (17:11)
--- NOTE | 2018-01-29 17:49 | PN.CARD_ITS ---
Subjectve: The patient is status post left hip ORIF. She has had no obvious adverse cardiovascular events. Objective: Vital Signs Temp Pulse Resp BP Pulse Ox 98.1 F 78 16 147/71 H 97 01/29/18 15:29 01/29/18 15:29 01/29/18 15:29 01/29/18 15:29 01/29/18 15:29 Oxygen Flow Rate (L/min) 4 Oxygen Delivery Method Room Air Weight: 279 lb 8.738 oz Body Mass Index (BMI) 47.9 Intake and Output for Last 24 Hours 01/27/18 01/28/18 01/29/18 23:59 23:59 23:59 Intake Total 1030 / 1030 2469 / 2469 Output Total 400 / 400 875 / 875 Balance 630 / 630 1594 / 1594 General: - - Resting comfortably at this time Lungs: Clear to auscultation Cardiovascular: Regular Rhythm, Normal S1, Normal S2 Abdomen: Bowel Sounds Present, Soft, Non Tender 01/29/18 06:33: WBC 8.3, RBC 4.05 L, Hgb 11.4 L, Hct 38.6, MCV 95.3, MCH 28.1, MCHC 29.5 L, RDW 15.8 H, RDW Differential 54.8 H, Plt Count 285, MPV 9.3, Immature Gran % (Auto) 0.200, Neut % (Auto) 78.1 H, Lymph % (Auto) 11.6 L, [place] % (Auto) 8.7, Eos % (Auto) 1.2, Baso % (Auto) 0.2, Absolute Neuts (auto) 6.4, Total Counted Not Reportable 01/29/18 06:33: Sodium 138, Potassium 5.3 H, Chloride 105, Carbon Dioxide 30.0, Anion Gap 3 L, BUN 25 H, Creatinine 1.20 H, Est GFR (MDRD) Af Amer 58 L, Est GFR (MDRD) Non-Af 48 L, BUN/Creatinine Ratio 20.8 H, Glucose 112 H, Calcium 8.4 L Rhythm: Sinus rhythm; rare PVC Cardiac Cath: Per previous [facility] medical records from 09/03/2013: EP study: Report commented that the patient had been previously evaluated, prior to EP study, with a left heart catheterization which did not show any obstructive CAD and also had an MRI performed which did not reveal any infiltrative disease Holter monitor: 12/30/2015: [facility]: Sinus rhythm/sinus tachycardia with occasional ventricular ectopic beats and a polymorphic single, couplet, bigeminal cycle, and nonsustained V. tach runs with the longest run being 6 beats in length and the maximal rate of 184 bpm; occasional SBEs presenting in singles, couplets, bigeminal cycles, and SVT/atrial tachycardia runs with the longest run being 36 beats in length with a maximal rate of 163 bpm; the patient reported shortness of breath but no specific times given EPS: 09/03/2013: Summary findings: Ablation of PVC contraction was successful Medical Necessity - Tobacco Use Smoking Status: Former smoker Assessment/Plan 1. Paroxysmal atrial fibrillation The patient reportedly has history of paroxysmal atrial fibrillation. According to the [facility] medical records available for review thus far it comments that the patient has had a Holter monitor suggesting an underlying SVT/atrial tachycardia. She has been on medical management. Appears to have included rate control therapy and antiarrhythmic therapy. At the present time she appears to be remaining in sinus rhythm. She is currently on beta-bairon therapy and antiarrhythmic therapy with flecainide/ Tambocor. She may need to be on long-term systemic oral anticoagulant therapy to minimize the risk of possible thromboembolic events in the setting of recurrent paroxysmal atrial fibrillation and if she truly does have atrial fibrillation. If her atrial dysrhythmia is the aforementioned SVT/atrial tachycardia then she does not necessarily require long-term anticoagulant therapy. 2. Paroxysmal ventricular tachycardia According to medical record the patient has a history of PVT. It appears that she is undergone F EPS/RFA in 2012 as noted above for ventricular ectopy. This was performed in the setting of concerns of symptomatic PVCs with a report of moderate LV dysfunction with an LVEF of 40% ( no study documented in an LVEF of 40% is available for review at this time) and a Holter adjusting 30% PVC burden and nonsustained VT. This procedure was considered successful. Most recent echocardiogram is as previously noted demonstrating overall preserved left ventricular wall motion and systolic function. She is on medical management with her beta-bairon and antiarrhythmic therapy with flecainide/Tambocor that would be more commonly used to treat atrial dysrhythmias as opposed to ventricular dysrhythmias. 3. CHF According to medical records states the patient has a history of combined systolic and diastolic CHF. Based upon the medical records available for review there is a comment, as noted above, that at some point in time the past she had an LVEF of 40%. However, based upon her more recent [facility] echocardiographic reports her overall LV systolic function appeared to be preserved. There was a comment that she did have diastolic function consistent with abnormal relaxation. Thus she may have an element of diastolic mediated CHF. At the present time she is on medical management. This does include diuretics and afterload reducing therapy. She does not appear to have any acute symptoms at this time. 4. Hypertension The patient will need to continue medical management as deemed appropriate. 5. Dysmetabolic syndrome The patient will continue under the care of internal medicine. 6. COPD The patient will continue under the care of internal medicine. 7. Obstructive sleep apnea To the medical record the patient has been somewhat noncompliant with her follow -up and care of her obstructive sleep apnea. 8. Obesity The patient is overweight. She will need dietary counseling and attempt to help bring her weight under better control. 9. Hip fracture The patient is now status post left hip ORIF. She has had no obvious postoperative adverse event. 10. Perioperative cardiovascular evaluation At the present time the patient appears to be without any acute adverse cardiovascular events. She will continue her medical management at this time. Hopefully additional cardiovascular records will become available for review to further define her previous cardiovascular history, objective findings, and impression and plans/recommendations for continued follow-up. This note was generated with [employer] software. It may contain incorrect words, spelling, and punctuation that were not noted in checking the note before signing.
[2018-01-29] MEDS: Acetaminophen 325 MG Tablet 650 MG PO (20:51)
[2018-01-29] MEDS: Senna/Docusate Sodium 1 Tablet 2 TABLET PO (20:56)
[2018-01-30] VITALS (12 sets, daily range): BP systolic 103–122; BP diastolic 50–66; PULSE 66–89; RESP 16–18; TEMP 36.7–37.4; O2SAT 93–95
[2018-01-30] MEDS: Cefazolin 1 GM/50 ML BAG IV ×2 (00:23→06:29)
[2018-01-30] MEDS: Ondansetron 4 MG/2 ML Vial IV (00:30)
[2018-01-30] MEDS: oxyCODONE 5 MG Tablet PO ×3 (01:23→20:36)
[2018-01-30] MEDS: Acetaminophen 325 MG Tablet 650 MG PO ×2 (04:22→22:39)
[2018-01-30] MEDS: Pramipexole Di-HCl 0.5 MG Tablet PO ×3 (06:29→22:29)
[2018-01-30] MEDS: Enoxaparin 40 MG/0.4 ML Syringe SC (06:29)
[2018-01-30] MEDS: Ipratropium/Albuterol Sulfate 3 ML AMPUL.NEB INHALATION ×3 (07:01→19:40)
[2018-01-30 07:12] LABS: Absolute Lymphocyte Count 0.75 X10^3/ul (0.83-4.51); Absolute Neutrophil Count 7.9 X10^3/uL (2.0-7.7); Basophil# 0.02 X10^3/uL; Basophil% 0.2 % (0-1); Eosinophil# 0.08 X10^3/uL; Eosinophils% 0.8 % (0-5); Hematocrit 35.2 % (37-47); Hemoglobin 10.5 g/dl (12.0-15.0); Lymphocyte # 0.75 X10^3/ul (4.0); Lymphocyte % 7.8 % (19-41); Mean Corp Hgb Conc 29.8 g/gl (32-36); Mean Corpuscular Hgb 28.7 pg (27.0-32.0); Mean Corpuscular Volume 96.2 fL (81-99); Mean Platelet Vol. 9.5 fl (6.2-12.0); Monocyte# 0.85 X10^3/uL; Monocyte% 8.8 % (0-10); Neutrophil % 82.1 % (47-70); POSITIVE COUNT NO; POSITIVE DIFFERENTIAL NO; POSITIVE MORPHOLOGY NO; Platelet Count 281 K/mm3 (150-450); RBC Distribution Width CV 15.3 % (11.6-14.6); RBC Distribution Width SD 52.2 fl (35.1-43.9); Red Blood Count 3.66 M/mm3 (4.2-5.4); White Blood Count 9.6 K/mm3 (4.4-11.0)
[2018-01-30 07:29] LABS: Anion Gap 6 (5-15); BUN 26 mg/dL (7-18); BUN/Creat Ratio 19.4 RATIO (10-20); Calcium,Total 8.3 mg/dL (8.5-10.1); Chloride 103 mmol/L (98-107); Creatinine, Serum 1.34 mg/dL (0.55-1.02); EST Glomerular Filtration Rate 42 mL/min (>60); Est Glom Filt Rate - Afr Amer 51 mL/min (>60); Estimated Creatinine Clearance 35.18 ml/min; Glucose 114 mg/dL (74-106); Potassium 4.8 mmol/L (3.5-5.1); Sodium Level 141 mmol/L (136-145)
--- NOTE | 2018-01-30 08:28 | PCM.PROGNOTE ---
Patient Problems: Active and Suspected Problems (Last Reviewed 01/19/18 @ 16:26 by Aleyda Mendez) Hip fracture (Acute) Preop cardiovascular exam (Acute) Subjective: Patient did okay overnight. Patient is reporting increased hip pain this morning that she attributes to a change in positioning. Patient denying any nausea or vomiting. No respiratory difficulties outside of a productive cough. Patient states she does have a productive cough at baseline. Patient did not use BiPAP overnight documentation. - Physical Exam General: Alert, Oriented x3, Cooperative, No apparent distress, - - Morbidly obese. Speaking in full sentences. HEENT: Atraumatic, PERRLA, EOMI, Normocephalic, - - No scleral icterus or injection noted. Oral: Moist Mucosa, No Gingival or Mucosal Lesions/ Ulcerations Neck: Supple, No JVD, No Nodes, Trachea Midline, - - Significant redundant tissue noted Lungs: No rhonchi, No wheeze, No rales, Diminished, - - Symmetric expansion. Cardiovascular: Regular rate, Regular Rhythm, Normal S1, Normal S2, No murmurs, No rub noted, No Gallop Abdomen: Bowel Sounds Present, Soft, Non Tender, Non-Distended, Obese Extremities: No clubbing, No cyanosis, No edema, - - Positioning pillow in place. Skin: No breakdown Musculoskeletal: - - Pain with movement of right leg Lymphatic: No Cervical, Supraclavicular, or Inguinal Adenopathy Neurological: Cranial nerves II-XII grossly intact, Neuro grossly intact, Motor Exam 5/5 strength throughout Psych/Mental Status: Anxious, Restless Vital Signs Temp Pulse Resp BP Pulse Ox 36.7 C 66 18 103/59 L 95 01/30/18 04:00 01/30/18 04:01 01/30/18 04:00 01/30/18 04:00 01/30/18 04:00 Oxygen Flow Rate (L/min) 4 Oxygen Delivery Method Nasal Cannula Weight: 124.4 kg Body Mass Index (BMI) 47.9 Intake and Output for Last 24 Hours 01/28/18 01/29/18 01/30/18 23:59 23:59 23:59 Intake Total 1030 / 1030 2736 / 2736 887 / 887 Output Total 400 / 400 1125 / 1125 1375 / 1375 Balance 630 / 630 1611 / 1611 -488 / -488 Laboratory Tests Past 24 Hrs 01/29/18 01/30/18 01/30/18 08:02 06:30 06:30 WBC 9.6 RBC 3.66 L Hgb 10.5 L Hct 35.2 L MCV 96.2 MCH 28.7 MCHC 29.8 L RDW 15.3 H RDW Differential 52.2 H Plt Count 281 MPV 9.5 Immature Gran % (Auto) 0.300 Neut % (Auto) 82.1 H Lymph % (Auto) 7.8 L [place] % (Auto) 8.8 Eos % (Auto) 0.8 Baso % (Auto) 0.2 Absolute Neuts (auto) 7.9 H Absolute Lymphs (auto) 0.75 L Total Counted Not Reportable Sodium 141 Potassium 4.8 Chloride 103 Carbon Dioxide 32.0 Anion Gap 6 BUN 26 H Creatinine 1.34 H Estim Creat Clear Calc 35.18 Est GFR (MDRD) Af Amer 51 L Est GFR (MDRD) Non-Af 42 L BUN/Creatinine Ratio 19.4 Glucose 114 H Calcium 8.3 L Blood Type O POSITIVE Antibody Screen NEGATIVE Clinical Impression(s) from Imaging Studies Hip X-Ray 01/29/18 09:00 Medical Necessity - Tobacco Use Smoking Status: Former smoker Assessment/Plan Active and Suspected Problems (Last Reviewed 01/19/18 @ 16:26 by Aleyda Mendez) Hip fracture (Acute) Preop cardiovascular exam (Acute) RECOMMENDATIONS: 1. Continue perioperative BiPAP utilization 2. Wean supplemental oxygen as tolerated 3. Encourage aggressive incentive spirometer use and mobilize patient as quickly as possible postoperatively 4. Continue perioperative bronchodilators 5. Conservative use of sedating pain medications, given tendency for alveolar hypoventilation to develop. 6. Recommend close outpatient follow-up in the pulmonary medicine clinic following discharge. IMPRESSIONS: 1. Chronic hypoxemic respiratory failure/COPD of unknown severity/obstructive sleep apnea with outpatient BiPAP noncompliance Patient is not a very good historian from a pulmonary perspective. Patient has been seen by Dr. Mccullough in the past, but reportedly has not been compliant. Stressed to the patient the importance of compliance with BiPAP therapy given need for pain medications and for postoperative recruitment. Patient voiced understanding. We will continue with incentive spirometer and bronchodilators perioperatively. Patient is aware that she may have worsening hypoxemia postoperatively that will get worse without complaints with incentive spirometer and BiPAP therapy. Continue to wean oxygen as tolerated. 2. Left hip displaced intertrochanteric fracture Plans for surgical intervention by Dr. Murillo. 3. Personal history of pulmonary nodules Again, as noted above, the patient was lost to follow-up. Further chest imaging can be obtained for evaluation on an outpatient basis. 4. Super morbid obesity/heart failure with preserved ejection fraction/hypertension/paroxysmal atrial fibrillation/chronic pain syndrome/GERD/anxiety Complicates care, management, recovery and prognosis. Continue home medications as indicated. Cardiology and hospitalist are also following. This note was generated with [employer] software. It may contain incorrect words, spelling, and punctuation that were not noted in checking the note before signing. Code Visit Inpatient E&M: 41040 Subs Hosp L2
--- NOTE | 2018-01-30 08:34 | PN_ITS ---
Patient Problems: Active and Suspected Problems (Last Reviewed 01/19/18 @ 16:26 by Aleyda Mendez) Hip fracture (Acute) Preop cardiovascular exam (Acute) Subjective: Patient did okay overnight. Patient is reporting increased hip pain this morning that she attributes to a change in positioning. Patient denying any nausea or vomiting. No respiratory difficulties outside of a productive cough. Patient states she does have a productive cough at baseline. Patient did not use BiPAP overnight documentation. - Physical Exam General: Alert, Oriented x3, Cooperative, No apparent distress, - - Morbidly obese. Speaking in full sentences. HEENT: Atraumatic, PERRLA, EOMI, Normocephalic, - - No scleral icterus or injection noted. Oral: Moist Mucosa, No Gingival or Mucosal Lesions/ Ulcerations Neck: Supple, No JVD, No Nodes, Trachea Midline, - - Significant redundant tissue noted Lungs: No rhonchi, No wheeze, No rales, Diminished, - - Symmetric expansion. Cardiovascular: Regular rate, Regular Rhythm, Normal S1, Normal S2, No murmurs, No rub noted, No Gallop Abdomen: Bowel Sounds Present, Soft, Non Tender, Non-Distended, Obese Extremities: No clubbing, No cyanosis, No edema, - - Positioning pillow in place. Skin: No breakdown Musculoskeletal: - - Pain with movement of right leg Lymphatic: No Cervical, Supraclavicular, or Inguinal Adenopathy Neurological: Cranial nerves II-XII grossly intact, Neuro grossly intact, Motor Exam 5/5 strength throughout Psych/Mental Status: Anxious, Restless Vital Signs Temp Pulse Resp BP Pulse Ox 36.7 C 66 18 103/59 L 95 01/30/18 04:00 01/30/18 04:01 01/30/18 04:00 01/30/18 04:00 01/30/18 04:00 Oxygen Flow Rate (L/min) 4 Oxygen Delivery Method Nasal Cannula Weight: 124.4 kg Body Mass Index (BMI) 47.9 Intake and Output for Last 24 Hours 01/28/18 01/29/18 01/30/18 23:59 23:59 23:59 Intake Total 1030 / 1030 2736 / 2736 887 / 887 Output Total 400 / 400 1125 / 1125 1375 / 1375 Balance 630 / 630 1611 / 1611 -488 / -488 Laboratory Tests Past 24 Hrs 01/29/18 01/30/18 01/30/18 08:02 06:30 06:30 WBC 9.6 RBC 3.66 L Hgb 10.5 L Hct 35.2 L MCV 96.2 MCH 28.7 MCHC 29.8 L RDW 15.3 H RDW Differential 52.2 H Plt Count 281 MPV 9.5 Immature Gran % (Auto) 0.300 Neut % (Auto) 82.1 H Lymph % (Auto) 7.8 L [place] % (Auto) 8.8 Eos % (Auto) 0.8 Baso % (Auto) 0.2 Absolute Neuts (auto) 7.9 H Absolute Lymphs (auto) 0.75 L Total Counted Not Reportable Sodium 141 Potassium 4.8 Chloride 103 Carbon Dioxide 32.0 Anion Gap 6 BUN 26 H Creatinine 1.34 H Estim Creat Clear Calc 35.18 Est GFR (MDRD) Af Amer 51 L Est GFR (MDRD) Non-Af 42 L BUN/Creatinine Ratio 19.4 Glucose 114 H Calcium 8.3 L Blood Type O POSITIVE Antibody Screen NEGATIVE Clinical Impression(s) from Imaging Studies Hip X-Ray 01/29/18 09:00 Medical Necessity - Tobacco Use Smoking Status: Former smoker Assessment/Plan Active and Suspected Problems (Last Reviewed 01/19/18 @ 16:26 by Aleyda Mendez) Hip fracture (Acute) Preop cardiovascular exam (Acute) RECOMMENDATIONS: 1. Continue perioperative BiPAP utilization 2. Wean supplemental oxygen as tolerated 3. Encourage aggressive incentive spirometer use and mobilize patient as quickly as possible postoperatively 4. Continue perioperative bronchodilators 5. Conservative use of sedating pain medications, given tendency for alveolar hypoventilation to develop. 6. Recommend close outpatient follow-up in the pulmonary medicine clinic following discharge. IMPRESSIONS: 1. Chronic hypoxemic respiratory failure/COPD of unknown severity/ obstructive sleep apnea with outpatient BiPAP noncompliance Patient is not a very good historian from a pulmonary perspective. Patient has been seen by Dr. Mccullough in the past, but reportedly has not been compliant. Stressed to the patient the importance of compliance with BiPAP therapy given need for pain medications and for postoperative recruitment. Patient voiced understanding. We will continue with incentive spirometer and bronchodilators perioperatively. Patient is aware that she may have worsening hypoxemia postoperatively that will get worse without complaints with incentive spirometer and BiPAP therapy. Continue to wean oxygen as tolerated. 2. Left hip displaced intertrochanteric fracture Plans for surgical intervention by Dr. Murillo. 3. Personal history of pulmonary nodules Again, as noted above, the patient was lost to follow-up. Further chest imaging can be obtained for evaluation on an outpatient basis. 4. Super morbid obesity/heart failure with preserved ejection fraction/ hypertension/paroxysmal atrial fibrillation/chronic pain syndrome/GERD/anxiety Complicates care, management, recovery and prognosis. Continue home medications as indicated. Cardiology and hospitalist are also following. This note was generated with [employer] software. It may contain incorrect words, spelling, and punctuation that were not noted in checking the note before signing. Code Visit Inpatient E&M: 94353 Subs Hosp L2
[2018-01-30] MEDS: Nystatin Powder 15gm Bottle 1 APPLIC TOPICAL ×3 (08:51→22:30)
[2018-01-30] MEDS: Venlafaxine XR 75 MG Capsule PO ×2 (09:04→22:30)
[2018-01-30] MEDS: Fluticasone 0.05% 1 SPRAY NASAL.SRY NASAL (09:04)
[2018-01-30] MEDS: Senna/Docusate Sodium 1 Tablet 2 TABLET PO ×2 (09:04→22:29)
[2018-01-30] MEDS: Metoprolol Tartrate 25 MG Tablet PO ×2 (09:05→22:29)
[2018-01-30] MEDS: Flecainide 150 MG Tablet PO ×2 (09:05→22:29)
[2018-01-30] MEDS: tiZANidine HCl 2 MG Tablet 4 MG PO ×2 (09:06→22:30)
[2018-01-30] MEDS: Pantoprazole Sodium 40 MG Tablet PO (09:08)
[2018-01-30] MEDS: Lisinopril 10 MG Tablet PO (09:09)
--- NOTE | 2018-01-30 09:24 | PCM.PN.ORT ---
Patient Problems: Active and Suspected Problems (Last Reviewed 01/19/18 @ 16:26 by Aleyda Mendez) Hip fracture (Acute) Preop cardiovascular exam (Acute) Subjective: Patient is postoperative day #1 from left hip fracture open reduction internal fixation. She denies chest pain or shortness of breath. Denies productive cough. She does feel she has some phlegm at the back of her throat. Patient had questions about discharge to home. She states she has less pain now than yesterday before surgery. Objective: Left hip bandages on clean and dry. No significant swelling or bruising noted about the left thigh or knee. No calf pain or swelling. Negative Homans sign. BEATRICE hose and SCDs are on. Good active motion toes and ankles. Left hip passive flexion to 40?. Internal and external rotation 10? with mild pain. No pain with gentle axial loading of the hip. Vital signs laboratory work reviewed. - Physical Exam Vital Signs Temp Pulse Resp BP Pulse Ox 98.1 F 70 16 103/59 L 93 01/30/18 04:00 01/30/18 09:05 01/30/18 07:01 01/30/18 04:00 01/30/18 07:01 Oxygen Flow Rate (L/min) 4 Oxygen Delivery Method Nasal Cannula Weight: 124.4 kg Body Mass Index (BMI) 47.9 Intake and Output for Last 24 Hours 01/28/18 01/29/18 01/30/18 23:59 23:59 23:59 Intake Total 1030 / 1030 2736 / 2736 887 / 887 Output Total 400 / 400 1125 / 1125 1375 / 1375 Balance 630 / 630 1611 / 1611 -488 / -488 Laboratory Tests Past 24 Hrs 01/30/18 01/30/18 06:30 06:30 WBC 9.6 RBC 3.66 L Hgb 10.5 L Hct 35.2 L MCV 96.2 MCH 28.7 MCHC 29.8 L RDW 15.3 H RDW Differential 52.2 H Plt Count 281 MPV 9.5 Immature Gran % (Auto) 0.300 Neut % (Auto) 82.1 H Lymph % (Auto) 7.8 L [place] % (Auto) 8.8 Eos % (Auto) 0.8 Baso % (Auto) 0.2 Absolute Neuts (auto) 7.9 H Absolute Lymphs (auto) 0.75 L Total Counted Not Reportable Sodium 141 Potassium 4.8 Chloride 103 Carbon Dioxide 32.0 Anion Gap 6 BUN 26 H Creatinine 1.34 H Estim Creat Clear Calc 35.18 Est GFR (MDRD) Af Amer 51 L Est GFR (MDRD) Non-Af 42 L BUN/Creatinine Ratio 19.4 Glucose 114 H Calcium 8.3 L Medical Necessity - Tobacco Use Smoking Status: Former smoker Assessment/Plan Active and Suspected Problems (Last Reviewed 01/19/18 @ 16:26 by Aleyda Mendez) Hip fracture (Acute) Preop cardiovascular exam (Acute) Postoperative day #1 from left hip fracture open reduction internal fixation with intramedullary nailing. Continue with oxycodone, Tylenol for pain. Continue with Lovenox BEATRICE hose and SCD for DVT prevention. Continue incentive spirometer use. Postoperative course of Ancef finished. Therapy has been ordered. Partial weightbearing on left hip. Okay for discharge from orthopedic standpoint when medically stable Multiple medical problems evaluation and treatment per hospitalist service
--- NOTE | 2018-01-30 09:44 | PCM.PROGNOTE ---
Patient Problems: Active and Suspected Problems (Last Reviewed 01/19/18 @ 16:26 by Aleyda Mendez) Hip fracture (Acute) Preop cardiovascular exam (Acute) Subjective: Postoperative day #1. Afebrile since admission. Vital signs are stable. She is 93% saturated on a 4 L nasal cannula. Fluid balance since admission is +1753. Medication reconciliation is confusing. She lists both Vicodin and Percocet as medications and she also lists diclofenac and meloxicam. In addition she has Flexeril and Zanaflex. The patient is a 67-year-old female with a past medical history of anxiety/depression, ESPERANZA noncompliant with CPAP, COPD, chronic hypoxic respiratory failure, former [id number] smoker, morbid obesity, PAF, history of nonsustained ventricular tachycardia, chronic systolic and diastolic congestive heart failure and history of pulmonary nodules who fell and sustained a left hip fracture. She was admitted to the hospital on 01/28/[address] Yoseph Murillo was consulted. On 01/29/2018 she underwent a left hip open reduction internal fixation and intramedullary nail fixation by Dr. Murillo. Review of lab today shows a hemoglobin of 10.5 and normal platelets. White blood cell count is within normal limits. Electrolytes are normal and the BUN is 26 with a creatinine of 1.34, up from 1.06 at admission. BNP was elevated at 375 at admission. Objective: General: alert, oriented X3, NAD, appropriate with normal affect Neck: supple, trachea midline, carotids have brisk upstroke and normal pulse volume, no JVD, no carotid bruits Lungs: CTA, symmetric chest expansion, not tachypneic, able to lie flat with no respiratory distress Heart: Regular rate and rhythm, normal S1, normal S2, no murmur, no gallop, no rub, PMI is on the midclavicular line Abdomen: soft, NT, ND, BS's present Extremities: no edema, no calf tenderness, peripheral pulses are normal - Physical Exam Vital Signs Temp Pulse Resp BP Pulse Ox 98.1 F 70 16 103/59 L 93 01/30/18 04:00 01/30/18 09:05 01/30/18 07:01 01/30/18 04:00 01/30/18 07:01 Oxygen Flow Rate (L/min) 4 Oxygen Delivery Method Nasal Cannula Weight: 274 lb 4.081 oz Body Mass Index (BMI) 47.9 Intake and Output for Last 24 Hours 01/28/18 01/29/18 01/30/18 23:59 23:59 23:59 Intake Total 1030 / 1030 2736 / 2736 887 / 887 Output Total 400 / 400 1125 / 1125 1375 / 1375 Balance 630 / 630 1611 / 1611 -488 / -488 Laboratory Tests Past 24 Hrs 01/30/18 01/30/18 06:30 06:30 WBC 9.6 RBC 3.66 L Hgb 10.5 L Hct 35.2 L MCV 96.2 MCH 28.7 MCHC 29.8 L RDW 15.3 H RDW Differential 52.2 H Plt Count 281 MPV 9.5 Immature Gran % (Auto) 0.300 Neut % (Auto) 82.1 H Lymph % (Auto) 7.8 L [place] % (Auto) 8.8 Eos % (Auto) 0.8 Baso % (Auto) 0.2 Absolute Neuts (auto) 7.9 H Absolute Lymphs (auto) 0.75 L Total Counted Not Reportable Sodium 141 Potassium 4.8 Chloride 103 Carbon Dioxide 32.0 Anion Gap 6 BUN 26 H Creatinine 1.34 H Estim Creat Clear Calc 35.18 Est GFR (MDRD) Af Amer 51 L Est GFR (MDRD) Non-Af 42 L BUN/Creatinine Ratio 19.4 Glucose 114 H Calcium 8.3 L Medical Necessity - Tobacco Use Smoking Status: Former smoker Assessment/Plan Active and Suspected Problems (Last Reviewed 01/19/18 @ 16:26 by Aleyda Mendez) Hip fracture (Acute) Preop cardiovascular exam (Acute) Impressions 1. Left hip fracture status post ORIF by Dr. Yoseph Murillo on 01/29/2018 -operative day #1 2. Paroxysmal atrial fibrillation 3. History of ventricular tachycardia 4. Chronic systolic and diastolic congestive heart failure, follows with Dr. Gerard....was to see Dr. Mercado but has missed several appts and admits to non-compliance with medications 5. Chronic asthma/COPD/chronic hypoxic respiratory failure/pulmonary nodules -compliant with oxygen, only wears oxygen at nighttime. 6. Super morbid obesity with BMI of than 40 7. [id number]-year smoking history 8. ESPERANZA-noncompliance with CPAP 9. Anxiety/depression on Ativan with ESPERANZA and chronic hypoxic respiratory failure which she is noncompliant with oxygen and CPAP. Will need SNF at [place]. Continue current treatment plan Code Visit Inpatient E&M: 36582 Subs Hosp L2
--- NOTE | 2018-01-30 09:53 | PN_ITS ---
Patient Problems: Active and Suspected Problems (Last Reviewed 01/19/18 @ 16:26 by Aleyda Mendez) Hip fracture (Acute) Preop cardiovascular exam (Acute) Subjective: Postoperative day #1. Afebrile since admission. Vital signs are stable. She is 93% saturated on a 4 L nasal cannula. Fluid balance since admission is +1753. Medication reconciliation is confusing. She lists both Vicodin and Percocet as medications and she also lists diclofenac and meloxicam. In addition she has Flexeril and Zanaflex. The patient is a 67-year-old female with a past medical history of anxiety/ depression, ESPERANZA noncompliant with CPAP, COPD, chronic hypoxic respiratory failure, former [id number] smoker, morbid obesity, PAF, history of nonsustained ventricular tachycardia, chronic systolic and diastolic congestive heart failure and history of pulmonary nodules who fell and sustained a left hip fracture. She was admitted to the hospital on 01/28/[address] Yoseph Murillo was consulted. On 01/29/2018 she underwent a left hip open reduction internal fixation and intramedullary nail fixation by Dr. Murillo. Review of lab today shows a hemoglobin of 10.5 and normal platelets. White blood cell count is within normal limits. Electrolytes are normal and the BUN is 26 with a creatinine of 1.34, up from 1.06 at admission. BNP was elevated at 375 at admission. Objective: General: alert, oriented X3, NAD, appropriate with normal affect Neck: supple, trachea midline, carotids have brisk upstroke and normal pulse volume, no JVD, no carotid bruits Lungs: CTA, symmetric chest expansion, not tachypneic, able to lie flat with no respiratory distress Heart: Regular rate and rhythm, normal S1, normal S2, no murmur, no gallop, no rub, PMI is on the midclavicular line Abdomen: soft, NT, ND, BS's present Extremities: no edema, no calf tenderness, peripheral pulses are normal - Physical Exam Vital Signs Temp Pulse Resp BP Pulse Ox 98.1 F 70 16 103/59 L 93 01/30/18 04:00 01/30/18 09:05 01/30/18 07:01 01/30/18 04:00 01/30/18 07:01 Oxygen Flow Rate (L/min) 4 Oxygen Delivery Method Nasal Cannula Weight: 274 lb 4.081 oz Body Mass Index (BMI) 47.9 Intake and Output for Last 24 Hours 01/28/18 01/29/18 01/30/18 23:59 23:59 23:59 Intake Total 1030 / 1030 2736 / 2736 887 / 887 Output Total 400 / 400 1125 / 1125 1375 / 1375 Balance 630 / 630 1611 / 1611 -488 / -488 Laboratory Tests Past 24 Hrs 01/30/18 01/30/18 06:30 06:30 WBC 9.6 RBC 3.66 L Hgb 10.5 L Hct 35.2 L MCV 96.2 MCH 28.7 MCHC 29.8 L RDW 15.3 H RDW Differential 52.2 H Plt Count 281 MPV 9.5 Immature Gran % (Auto) 0.300 Neut % (Auto) 82.1 H Lymph % (Auto) 7.8 L [place] % (Auto) 8.8 Eos % (Auto) 0.8 Baso % (Auto) 0.2 Absolute Neuts (auto) 7.9 H Absolute Lymphs (auto) 0.75 L Total Counted Not Reportable Sodium 141 Potassium 4.8 Chloride 103 Carbon Dioxide 32.0 Anion Gap 6 BUN 26 H Creatinine 1.34 H Estim Creat Clear Calc 35.18 Est GFR (MDRD) Af Amer 51 L Est GFR (MDRD) Non-Af 42 L BUN/Creatinine Ratio 19.4 Glucose 114 H Calcium 8.3 L Medical Necessity - Tobacco Use Smoking Status: Former smoker Assessment/Plan Active and Suspected Problems (Last Reviewed 01/19/18 @ 16:26 by Aleyda Mendez) Hip fracture (Acute) Preop cardiovascular exam (Acute) Impressions 1. Left hip fracture status post ORIF by Dr. Yoseph Murillo on 01/29/2018 - operative day #1 2. Paroxysmal atrial fibrillation 3. History of ventricular tachycardia 4. Chronic systolic and diastolic congestive heart failure, follows with Dr. Gerard....was to see Dr. Mercado but has missed several appts and admits to non- compliance with medications 5. Chronic asthma/COPD/chronic hypoxic respiratory failure/pulmonary nodules - compliant with oxygen, only wears oxygen at nighttime. 6. Super morbid obesity with BMI of than 40 7. Aqnjoj-[id number]-year smoking history 8. ESPERANZA-noncompliance with CPAP 9. Anxiety/depression on Ativan with ESPERANZA and chronic hypoxic respiratory failure which she is noncompliant with oxygen and CPAP. Will need SNF at [place]. Continue current treatment plan Code Visit Inpatient E&M: 89145 Subs Hosp L2
[2018-01-30 10:31] LABS: Bedside Glucose 151 mg/dL (70-110)
[2018-01-30] MEDS: 0.9% NaCl Peripheral Flush Adult/Peds IV (11:38)
[2018-01-30] MEDS: Furosemide 20 MG Tablet PO (17:45)
--- NOTE | 2018-01-30 17:51 | PCM.PN.CARD ---
Subjectve: The patient is more awake and alert today. She denies any ongoing chest discomfort, worsening shortness of breath/dyspnea, or ongoing palpitations. Objective: Vital Signs Temp Pulse Resp BP Pulse Ox 98.0 F 68 18 103/58 L 94 01/30/18 16:00 01/30/18 16:00 01/30/18 16:00 01/30/18 16:00 01/30/18 16:00 Oxygen Flow Rate (L/min) 4 Oxygen Delivery Method Nasal Cannula Weight: 274 lb 4.081 oz Body Mass Index (BMI) 47.9 Intake and Output for Last 24 Hours 01/28/18 01/29/18 01/30/18 23:59 23:59 23:59 Intake Total 1030 / 1030 2736 / 2736 887 / 887 Output Total 400 / 400 1125 / 1125 1625 / 1625 Balance 630 / 630 1611 / 1611 -738 / -738 General: Awake, Alert, Oriented x 3, Cooperative, No Acute Distress Neck: No JVD Lungs: Clear to auscultation Cardiovascular: Regular Rhythm, Normal S1, Normal S2 Abdomen: Bowel Sounds Present, Soft, Non Tender 01/30/18 06:30: WBC 9.6, RBC 3.66 L, Hgb 10.5 L, Hct 35.2 L, MCV 96.2, MCH 28.7, MCHC 29.8 L, RDW 15.3 H, RDW Differential 52.2 H, Plt Count 281, MPV 9.5, Immature Gran % (Auto) 0.300, Neut % (Auto) 82.1 H, Lymph % (Auto) 7.8 L, [place] % (Auto) 8.8, Eos % (Auto) 0.8, Baso % (Auto) 0.2, Absolute Neuts (auto) 7.9 H, Total Counted Not Reportable 01/30/18 06:30: Sodium 141, Potassium 4.8, Chloride 103, Carbon Dioxide 32.0, Anion Gap 6, BUN 26 H, Creatinine 1.34 H, Est GFR (MDRD) Af Amer 51 L, Est GFR (MDRD) Non-Af 42 L, BUN/Creatinine Ratio 19.4, Glucose 114 H, Calcium 8.3 L ECHO: Left ventricle: Normal with an estimated LVEF of 55%; mild biatrial enlargement Medical Necessity - Tobacco Use Smoking Status: Former smoker Assessment/Plan 1. Paroxysmal atrial fibrillation The patient reportedly has history of paroxysmal atrial fibrillation. According to the [facility] medical records available for review thus far it comments that the patient has had a Holter monitor suggesting an underlying SVT/atrial tachycardia. There was no comment of atrial fibrillation. She has been on medical management. This appears to have included rate control therapy and antiarrhythmic therapy. At the present time she appears to be remaining in sinus rhythm. She is currently on beta-bairon therapy and antiarrhythmic therapy with flecainide/Tambocor. She may need to be on long-term systemic oral anticoagulant therapy to minimize the risk of possible thromboembolic events in the setting of recurrent paroxysmal atrial fibrillation and if she truly does have atrial fibrillation. If her atrial dysrhythmia is the aforementioned SVT/atrial tachycardia then she does not necessarily require long-term anticoagulant therapy. 2. Paroxysmal ventricular tachycardia According to medical record the patient has a history of PVT. It appears that she is undergone F EPS/RFA in 2012 as noted above for ventricular ectopy. This was performed in the setting of concerns of symptomatic PVCs with a report of moderate LV dysfunction with an LVEF of 40% (no study documented in an LVEF of 40% is available for review at this time) and a Holter adjusting 30% PVC burden and nonsustained VT. This procedure was considered successful. Her follow-up transthoracic echocardiogram is as noted above. Her overall LV systolic function appears to remain within normal range. She is on medical management with her beta-bairon and antiarrhythmic therapy with flecainide/Tambocor that would be more commonly used to treat atrial dysrhythmias as opposed to ventricular dysrhythmias. She appears to be tolerating this well thus far with no obvious adverse side effects or pro arrhythmic events. 3. CHF According to medical records states the patient has a history of combined systolic and diastolic CHF. Based upon the medical records available for review there is a comment, as noted above, that at some point in time the past she had an LVEF of 40%. However, based upon her more recent [facility] echocardiographic reports her overall LV systolic function appeared to be preserved. There was a comment that she did have diastolic function consistent with abnormal relaxation. Thus she may have an element of diastolic mediated CHF. At the present time she is on medical management. This does include diuretics and afterload reducing therapy. She does not appear to have any acute symptoms at this time. 4. Hypertension The patient will need to continue medical management as deemed appropriate. 5. Dysmetabolic syndrome The patient will continue under the care of internal medicine. 6. COPD The patient will continue under the care of internal medicine. 7. Obstructive sleep apnea To the medical record the patient has been somewhat noncompliant with her follow-up and care of her obstructive sleep apnea. 8. Obesity The patient is overweight. She will need dietary counseling and attempt to help bring her weight under better control. 9. Hip fracture The patient is now status post left hip ORIF. She has had no obvious postoperative adverse event. 10. Perioperative cardiovascular evaluation At the present time the patient appears to be without any acute adverse cardiovascular events. She will continue her medical management at this time. At the present time there were no immediate plans for additional cardiovascular diagnostic studies, etc. She can be reevaluated as needed. This note was generated with [employer] dictation software. It may contain incorrect words, spelling, and punctuation that were not noted in checking the note before signing.
--- NOTE | 2018-01-30 17:56 | PN.CARD_ITS ---
Subjectve: The patient is more awake and alert today. She denies any ongoing chest discomfort, worsening shortness of breath/dyspnea, or ongoing palpitations. Objective: Vital Signs Temp Pulse Resp BP Pulse Ox 98.0 F 68 18 103/58 L 94 01/30/18 16:00 01/30/18 16:00 01/30/18 16:00 01/30/18 16:00 01/30/18 16:00 Oxygen Flow Rate (L/min) 4 Oxygen Delivery Method Nasal Cannula Weight: 274 lb 4.081 oz Body Mass Index (BMI) 47.9 Intake and Output for Last 24 Hours 01/28/18 01/29/18 01/30/18 23:59 23:59 23:59 Intake Total 1030 / 1030 2736 / 2736 887 / 887 Output Total 400 / 400 1125 / 1125 1625 / 1625 Balance 630 / 630 1611 / 1611 -738 / -738 General: Awake, Alert, Oriented x 3, Cooperative, No Acute Distress Neck: No JVD Lungs: Clear to auscultation Cardiovascular: Regular Rhythm, Normal S1, Normal S2 Abdomen: Bowel Sounds Present, Soft, Non Tender 01/30/18 06:30: WBC 9.6, RBC 3.66 L, Hgb 10.5 L, Hct 35.2 L, MCV 96.2, MCH 28.7 , MCHC 29.8 L, RDW 15.3 H, RDW Differential 52.2 H, Plt Count 281, MPV 9.5, Immature Gran % (Auto) 0.300, Neut % (Auto) 82.1 H, Lymph % (Auto) 7.8 L, [place] % (Auto) 8.8, Eos % (Auto) 0.8, Baso % (Auto) 0.2, Absolute Neuts (auto) 7.9 H, Total Counted Not Reportable 01/30/18 06:30: Sodium 141, Potassium 4.8, Chloride 103, Carbon Dioxide 32.0, Anion Gap 6, BUN 26 H, Creatinine 1.34 H, Est GFR (MDRD) Af Amer 51 L, Est GFR ( MDRD) Non-Af 42 L, BUN/Creatinine Ratio 19.4, Glucose 114 H, Calcium 8.3 L ECHO: Left ventricle: Normal with an estimated LVEF of 55%; mild biatrial enlargement Medical Necessity - Tobacco Use Smoking Status: Former smoker Assessment/Plan 1. Paroxysmal atrial fibrillation The patient reportedly has history of paroxysmal atrial fibrillation. According to the [facility] medical records available for review thus far it comments that the patient has had a Holter monitor suggesting an underlying SVT/atrial tachycardia. There was no comment of atrial fibrillation. She has been on medical management. This appears to have included rate control therapy and antiarrhythmic therapy. At the present time she appears to be remaining in sinus rhythm. She is currently on beta-bairon therapy and antiarrhythmic therapy with flecainide/ Tambocor. She may need to be on long-term systemic oral anticoagulant therapy to minimize the risk of possible thromboembolic events in the setting of recurrent paroxysmal atrial fibrillation and if she truly does have atrial fibrillation. If her atrial dysrhythmia is the aforementioned SVT/atrial tachycardia then she does not necessarily require long-term anticoagulant therapy. 2. Paroxysmal ventricular tachycardia According to medical record the patient has a history of PVT. It appears that she is undergone F EPS/RFA in 2012 as noted above for ventricular ectopy. This was performed in the setting of concerns of symptomatic PVCs with a report of moderate LV dysfunction with an LVEF of 40% ( no study documented in an LVEF of 40% is available for review at this time) and a Holter adjusting 30% PVC burden and nonsustained VT. This procedure was considered successful. Her follow-up transthoracic echocardiogram is as noted above. Her overall LV systolic function appears to remain within normal range. She is on medical management with her beta-bairon and antiarrhythmic therapy with flecainide/Tambocor that would be more commonly used to treat atrial dysrhythmias as opposed to ventricular dysrhythmias. She appears to be tolerating this well thus far with no obvious adverse side effects or pro arrhythmic events. 3. CHF According to medical records states the patient has a history of combined systolic and diastolic CHF. Based upon the medical records available for review there is a comment, as noted above, that at some point in time the past she had an LVEF of 40%. However, based upon her more recent [facility] echocardiographic reports her overall LV systolic function appeared to be preserved. There was a comment that she did have diastolic function consistent with abnormal relaxation. Thus she may have an element of diastolic mediated CHF. At the present time she is on medical management. This does include diuretics and afterload reducing therapy. She does not appear to have any acute symptoms at this time. 4. Hypertension The patient will need to continue medical management as deemed appropriate. 5. Dysmetabolic syndrome The patient will continue under the care of internal medicine. 6. COPD The patient will continue under the care of internal medicine. 7. Obstructive sleep apnea To the medical record the patient has been somewhat noncompliant with her follow -up and care of her obstructive sleep apnea. 8. Obesity The patient is overweight. She will need dietary counseling and attempt to help bring her weight under better control. 9. Hip fracture The patient is now status post left hip ORIF. She has had no obvious postoperative adverse event. 10. Perioperative cardiovascular evaluation At the present time the patient appears to be without any acute adverse cardiovascular events. She will continue her medical management at this time. At the present time there were no immediate plans for additional cardiovascular diagnostic studies, etc. She can be reevaluated as needed. This note was generated with [employer] ([email or web address]) dictation software. It may contain incorrect words, spelling, and punctuation that were not noted in checking the note before signing.
[2018-01-30] MEDS: Budesonide Respules 0.5 MG/2 ML AMPUL.NEB. INHALATION (21:00)
[2018-01-31] VITALS (11 sets, daily range): BP systolic 87–115; BP diastolic 45–62; PULSE 67–84; RESP 14–18; TEMP 36.8–37.4; O2SAT 94–96
[2018-01-31] MEDS: oxyCODONE 5 MG Tablet PO ×3 (00:39→20:40)
[2018-01-31] MEDS: Enoxaparin 40 MG/0.4 ML Syringe SC (05:28)
[2018-01-31] MEDS: Nystatin Powder 15gm Bottle 1 APPLIC TOPICAL ×3 (05:28→22:47)
[2018-01-31] MEDS: Pramipexole Di-HCl 0.5 MG Tablet PO ×3 (05:28→22:46)
[2018-01-31] MEDS: 0.9% NaCl Peripheral Flush Adult/Peds IV ×2 (06:01→09:04)
[2018-01-31] MEDS: Ondansetron 4 MG/2 ML Vial IV (06:01)
[2018-01-31 06:36] LABS: Absolute Lymphocyte Count 0.88 X10^3/ul (0.83-4.51); Basophil# 0.02 X10^3/uL; Basophil% 0.2 % (0-1); Eosinophil# 0.19 X10^3/uL; Eosinophils% 1.9 % (0-5); Hemoglobin 10.5 g/dl (12.0-15.0); Lymphocyte # 0.88 X10^3/ul (4.0); Lymphocyte % 8.6 % (19-41); Mean Corpuscular Hgb 28.4 pg (27.0-32.0); Mean Corpuscular Volume 94.6 fL (81-99); Mean Platelet Vol. 9.2 fl (6.2-12.0); Monocyte# 1.06 X10^3/uL; Monocyte% 10.4 % (0-10); Neutrophil # 8.02 X10^3/uL (2.7-7.7); Neutrophil % 78.8 % (47-70); Platelet Count 246 K/mm3 (150-450); RBC Distribution Width CV 15.7 % (11.6-14.6); RBC Distribution Width SD 54.1 fl (35.1-43.9); White Blood Count 10.2 K/mm3 (4.4-11.0)
[2018-01-31 06:37] LABS: POSITIVE COUNT NO; POSITIVE DIFFERENTIAL NO; POSITIVE MORPHOLOGY NO
[2018-01-31 06:41] LABS: Anion Gap 9 (5-15); BUN 34 mg/dL (7-18); BUN/Creat Ratio 20.6 RATIO (10-20); Calcium,Total 8.3 mg/dL (8.5-10.1); Chloride 103 mmol/L (98-107); Creatinine, Serum 1.65 mg/dL (0.55-1.02); EST Glomerular Filtration Rate 33 mL/min (>60); Est Glom Filt Rate - Afr Amer 40 mL/min (>60); Estimated Creatinine Clearance 28.57 ml/min; Glucose 101 mg/dL (74-106); Potassium 4.5 mmol/L (3.5-5.1); Sodium Level 138 mmol/L (136-145)
[2018-01-31] MEDS: Ipratropium/Albuterol Sulfate 3 ML AMPUL.NEB INHALATION ×3 (07:10→19:34)
[2018-01-31] MEDS: Budesonide Respules 0.5 MG/2 ML AMPUL.NEB. INHALATION ×2 (07:10→19:34)
--- NOTE | 2018-01-31 07:39 | PCM.PROGNOTE ---
Patient Problems: Active and Suspected Problems (Last Reviewed 01/19/18 @ 16:26 by Aleyda Mendez) Hip fracture (Acute) Preop cardiovascular exam (Acute) Subjective: Postoperative day #2-status post ORIF of left hip fracture All events of the past 24 hours been reviewed. Temp 99.4 early this morning. Blood pressure at the same time was 96/56 and this was at 0430. Rate is stable. Respiratory rate is within normal limits and she is 95% saturated on BiPAP with a 5 L bleed in. Poor oral intake. 580 cc on 01/30/2018. She did have an additional 530 overnight. Urine output 01/30/2018 was 1725. All lab was personally reviewed. Hemoglobin is stable at 10.5 and white blood cell and platelets are within normal limits. BUN is 34 today with a creatinine of 1.65, up from 1.06 at admission. She is very somnolent and her speech is slurred. She keeps nodding off to sleep when I am talking to her. She got tizanidine, oxycodone and ropinirole today. Reviewed all the meds from the recent visit to Dr. He and we have the correct doses. Her only complain is Hip pain but then she falls asleep. Objective: General: drowsy and nodding off to sleep when I am talking to her, oriented X3, NAD, looks older than her stated age Neck: supple, trachea midline, carotids have brisk upstroke and normal pulse volume, no JVD, no carotid bruits Lungs: CTA anterior and lateral but diminished, symmetric chest expansion, Heart: Regular rate and rhythm, normal S1, normal S2, no murmur, no gallop, no rub Abdomen: soft, NT, ND, BS's present Extremities: no edema, no calf tenderness, peripheral pulses are normal, intact sensation intact to both feet. The dressing is dry. Naqvi is out - Physical Exam Vital Signs Temp Pulse Resp BP Pulse Ox 99.4 F H 73 14 96/56 L 95 01/31/18 04:30 01/31/18 07:10 01/31/18 07:10 01/31/18 04:30 01/31/18 04:47 Oxygen Flow Rate (L/min) 5 Oxygen Delivery Method Nasal Cannula Weight: 275 lb 12.772 oz Body Mass Index (BMI) 47.9 Intake and Output for Last 24 Hours 01/29/18 01/30/18 01/31/18 23:59 23:59 23:59 Intake Total 2736 / 2736 887 / 887 530 / 530 Output Total 1125 / 1125 1725 / 1725 375 / 375 Balance 1611 / 1611 -838 / -838 155 / 155 Laboratory Tests Past 24 Hrs 01/31/18 01/31/18 06:00 06:00 WBC 10.2 RBC 3.70 L Hgb 10.5 L Hct 35.0 L MCV 94.6 MCH 28.4 MCHC 30.0 L RDW 15.7 H RDW Differential 54.1 H Plt Count 246 MPV 9.2 Immature Gran % (Auto) 0.100 Neut % (Auto) 78.8 H Lymph % (Auto) 8.6 L [place] % (Auto) 10.4 H Eos % (Auto) 1.9 Baso % (Auto) 0.2 Absolute Neuts (auto) 8.0 H Absolute Lymphs (auto) 0.88 Total Counted Not Reportable Sodium 138 Potassium 4.5 Chloride 103 Carbon Dioxide 26.0 Anion Gap 9 BUN 34 H Creatinine 1.65 H Estim Creat Clear Calc 28.57 Est GFR (MDRD) Af Amer 40 L Est GFR (MDRD) Non-Af 33 L BUN/Creatinine Ratio 20.6 H Glucose 101 Calcium 8.3 L POC Glucose 01/30/18 10:15 POC Glucose 151 H Medical Necessity - Tobacco Use Smoking Status: Former smoker Assessment/Plan Active and Suspected Problems (Last Reviewed 01/19/18 @ 16:26 by Aleyda Mendez) Hip fracture (Acute) Preop cardiovascular exam (Acute) Impressions 1. Left hip fracture status post ORIF by Dr. Yoseph Murillo on 01/29/2018 -operative day #1 2. Paroxysmal atrial fibrillation 3. History of ventricular tachycardia 4. Chronic systolic and diastolic congestive heart failure, follows with Dr. Gerard....was to see Dr. Mercado but has missed several appts and admits to non-compliance with medications...EF is 55% with moderate to severe concentric left ventricular hypertrophy. Unable to assess diastolic dysfunction on echocardiogram. 5. Chronic asthma/COPD/chronic hypoxic respiratory failure/pulmonary nodules -non-compliant with oxygen, only wears oxygen at nighttime. 6. Super morbid obesity with BMI of than 40 7. Vukdkf-[id number]-year smoking history 8. ESPERANZA-noncompliance with CPAP 9. Anxiety/depression on Ativan with ESPERANZA and chronic hypoxic respiratory failure which she is noncompliant with oxygen and CPAP. 10. EMMANUEL - due to poor oral intake/dehydration 11. Hypotensive and Drowsy today with altered LOC -suspect this is drug-induced however she does have a very mild increase in temperature today so will obtain a UA via straight cath and culture. We will also check a chest x-ray. Bolus 1 L of normal saline Start IV fluids Recheck lab in the AM DC the Dilaudid and the Tizanidine. Decrease the Oxy IR to 5 mg and add scheduled Tylenol 1,000 Q 8H Hold Lasix pCXR Straight cath for UA and culture ABG Code Visit Inpatient E&M: 89949 Subs Hosp L3
--- NOTE | 2018-01-31 07:48 | PN_ITS ---
Patient Problems: Active and Suspected Problems (Last Reviewed 01/19/18 @ 16:26 by Aleyda Mendez) Hip fracture (Acute) Preop cardiovascular exam (Acute) Subjective: Postoperative day #2-status post ORIF of left hip fracture All events of the past 24 hours been reviewed. Temp 99.4 early this morning. Blood pressure at the same time was 96/56 and this was at 0430. Rate is stable. Respiratory rate is within normal limits and she is 95% saturated on BiPAP with a 5 L bleed in. Poor oral intake. 580 cc on 01/30/2018. She did have an additional 530 overnight. Urine output 01/30/2018 was 1725. All lab was personally reviewed. Hemoglobin is stable at 10.5 and white blood cell and platelets are within normal limits. BUN is 34 today with a creatinine of 1.65, up from 1.06 at admission. She is very somnolent and her speech is slurred. She keeps nodding off to sleep when I am talking to her. She got tizanidine, oxycodone and ropinirole today. Reviewed all the meds from the recent visit to Dr. He and we have the correct doses. Her only complain is Hip pain but then she falls asleep. Objective: General: drowsy and nodding off to sleep when I am talking to her, oriented X3 , NAD, looks older than her stated age Neck: supple, trachea midline, carotids have brisk upstroke and normal pulse volume, no JVD, no carotid bruits Lungs: CTA anterior and lateral but diminished, symmetric chest expansion, Heart: Regular rate and rhythm, normal S1, normal S2, no murmur, no gallop, no rub Abdomen: soft, NT, ND, BS's present Extremities: no edema, no calf tenderness, peripheral pulses are normal, intact sensation intact to both feet. The dressing is dry. Naqvi is out - Physical Exam Vital Signs Temp Pulse Resp BP Pulse Ox 99.4 F H 73 14 96/56 L 95 01/31/18 04:30 01/31/18 07:10 01/31/18 07:10 01/31/18 04:30 01/31/18 04:47 Oxygen Flow Rate (L/min) 5 Oxygen Delivery Method Nasal Cannula Weight: 275 lb 12.772 oz Body Mass Index (BMI) 47.9 Intake and Output for Last 24 Hours 01/29/18 01/30/18 01/31/18 23:59 23:59 23:59 Intake Total 2736 / 2736 887 / 887 530 / 530 Output Total 1125 / 1125 1725 / 1725 375 / 375 Balance 1611 / 1611 -838 / -838 155 / 155 Laboratory Tests Past 24 Hrs 01/31/18 01/31/18 06:00 06:00 WBC 10.2 RBC 3.70 L Hgb 10.5 L Hct 35.0 L MCV 94.6 MCH 28.4 MCHC 30.0 L RDW 15.7 H RDW Differential 54.1 H Plt Count 246 MPV 9.2 Immature Gran % (Auto) 0.100 Neut % (Auto) 78.8 H Lymph % (Auto) 8.6 L [place] % (Auto) 10.4 H Eos % (Auto) 1.9 Baso % (Auto) 0.2 Absolute Neuts (auto) 8.0 H Absolute Lymphs (auto) 0.88 Total Counted Not Reportable Sodium 138 Potassium 4.5 Chloride 103 Carbon Dioxide 26.0 Anion Gap 9 BUN 34 H Creatinine 1.65 H Estim Creat Clear Calc 28.57 Est GFR (MDRD) Af Amer 40 L Est GFR (MDRD) Non-Af 33 L BUN/Creatinine Ratio 20.6 H Glucose 101 Calcium 8.3 L POC Glucose 01/30/18 10:15 POC Glucose 151 H Medical Necessity - Tobacco Use Smoking Status: Former smoker Assessment/Plan Active and Suspected Problems (Last Reviewed 01/19/18 @ 16:26 by Aleyda Mendez) Hip fracture (Acute) Preop cardiovascular exam (Acute) Impressions 1. Left hip fracture status post ORIF by Dr. Yoseph Murillo on 01/29/2018 - operative day #1 2. Paroxysmal atrial fibrillation 3. History of ventricular tachycardia 4. Chronic systolic and diastolic congestive heart failure, follows with Dr. Gerard....was to see Dr. Mercado but has missed several appts and admits to non- compliance with medications...EF is 55% with moderate to severe concentric left ventricular hypertrophy. Unable to assess diastolic dysfunction on echocardiogram. 5. Chronic asthma/COPD/chronic hypoxic respiratory failure/pulmonary nodules - non-compliant with oxygen, only wears oxygen at nighttime. 6. Super morbid obesity with BMI of than 40 7. Odycjh-48-mvsx-year smoking history 8. ESPERANZA-noncompliance with CPAP 9. Anxiety/depression on Ativan with ESPERANZA and chronic hypoxic respiratory failure which she is noncompliant with oxygen and CPAP. 10. EMMANUEL - due to poor oral intake/dehydration 11. Hypotensive and Drowsy today with altered LOC -suspect this is drug- induced however she does have a very mild increase in temperature today so will obtain a UA via straight cath and culture. We will also check a chest x-ray. Bolus 1 L of normal saline Start IV fluids Recheck lab in the AM DC the Dilaudid and the Tizanidine. Decrease the Oxy IR to 5 mg and add scheduled Tylenol 1,000 Q 8H Hold Lasix pCXR Straight cath for UA and culture ABG Code Visit Inpatient E&M: 16489 Subs Hosp L3
--- NOTE | 2018-01-31 08:50 | SLEEP ---
Seen patient who has a history of sleep apnea. She states she is currently complaint with no issues other then the pressure feels like it is too high I educated patient on the importance of following up with prescribing doctor in regards to the pressure settings and information about being retested. Patient verbalized understanding and was left with a brochure of information.
[2018-01-31] MEDS: Fluticasone 0.05% 1 SPRAY NASAL.SRY NASAL (09:04)
[2018-01-31] MEDS: Lactated Ringers 1,000 ML 75 ML IV (09:04)
[2018-01-31] MEDS: Venlafaxine XR 75 MG Capsule PO ×2 (09:05→22:46)
[2018-01-31] MEDS: Senna/Docusate Sodium 1 Tablet 2 TABLET PO ×2 (09:06→22:46)
[2018-01-31] MEDS: Pantoprazole Sodium 40 MG Tablet PO (09:06)
--- NOTE | 2018-01-31 10:12 | RAD_ITS ---
STUDY: X-RAY CHEST REASON FOR EXAM: Female, 67 years old. Fever. TECHNIQUE: Single AP portable view of the chest. COMPARISON: Comparison is made with prior study dated January 28, 2018. FINDINGS: Mild increased markings at the lung bases suggestive of bibasilar atelectasis. This has progressed as compared to prior study. Mild degree of vascular congestion. Blunting of both costophrenic angles. Normal size heart. Normal mediastinum and leonid. Normal visualized pulmonary arteries. Normal visualized aortic arch and descending thoracic aorta. Normal visualized thoracic spine. Normal visualized ribs, clavicles, and shoulders. Hiatal hernia. RAD/Chest 1 View (Portable) IMPRESSION: Worsening of the bibasilar atelectasis and/or early infiltrates. Mild degree of vascular congestion. Electronically Signed: Ivan Arce MD at 12:53 EDT Tel [phone], Service support ,
--- NOTE | 2018-01-31 10:32 | CASEMGMT ---
Social Work Note ANGLE received call from Lizzie in inpatient rehab who is covering for Vicki today stating that pt meets criteria for inpatient rehab. ANGLE informed Lizzie that this worker will have to check with pt to confirm that she is agreeable to inpatient rehab. Pt has [employer] and requires level of care before pre-cert. SW in to meet with pt. SW educated pt on inpatient rehab vs. TCU. Pt confirms that she is agreeable to inpatient rehab. ANGLE placed a call to Vicki in inpatient rehab and left a message stating that pt is interested in inpatient rehab and that this worker will submit clinicals to [employer] before pre-cert can be submitted. ANGLE spoke with Lizzie in inpatient rehab to confirm that pt is interested in inpatient rehab and that this worker will submit clinicals to [employer] before pre-cert can be submitted. Lizzie states understanding. ANGLE faxed clinicals to [facility] [facility] Medicare and placed a call regarding referral. ANGLE waiting to hear back from [facility] Medicare regarding referral. Plan: Inpatient rehab pending pre-cert Leanne Holder BRAILLE CODER, RESIDENTIAL BUILDING INSPECTOR
[2018-01-31 11:11] LABS: Allen Test POS; Base Excess 4 mmol/L (-2 to +2); Blood Gas Specimen Type ART; O2 Delivery Device Nasal Can; PO2 71 mmHG (75-100); SITE L Radial; SO2 92 % (95-99); Time Given 1100; Total Carbon Dioxide 32 mmol/L; pCO2 58.9 mmHg (35-45); pH 7.32 (7.35-7.45)
[2018-01-31] MEDS: Flecainide 150 MG Tablet PO ×2 (11:35→22:46)
[2018-01-31] MEDS: Acetaminophen 500 MG Tablet 1000 MG PO ×2 (11:38→22:45)
--- NOTE | 2018-01-31 11:42 | PCM.PROGNOTE ---
Patient Problems: Active and Suspected Problems (Last Reviewed 01/19/18 @ 16:26 by Aleyda Mendez) Hip fracture (Acute) Preop cardiovascular exam (Acute) Subjective: Patient was seen and examined. She is complaining of left hip pain and is postop day #2. She also complains of a dry mouth. Asking if she could eat her breakfast. States she needs repositioned in bed as well. Denies any shortness of breath. She has been maintained on her baseline oxygen requirement of 3 L and is saturating 95%. She is not sure if she has been using her incentive spirometer. Objective: Recent lab and culture data reviewed. Urine culture is pending. Renal function continues to worsen. Remains afebrile. Blood pressure somewhat low at 96/56. - Physical Exam General: Oriented x3, Cooperative, No apparent distress, - - forgetful. somewhat sleep but answering questions appropriately. obese HEENT: Atraumatic, Normocephalic Oral: No Gingival or Mucosal Lesions/ Ulcerations, Dry Mucosa - mouth breathing Neck: Supple, No Nodes, Trachea Midline, - - redundant neck tissue Lungs: No rhonchi, No wheeze, No rales, Diminished, - - poor effort. no dullness to percussion. Cardiovascular: Regular rate, Regular Rhythm, Normal S1, Normal S2, No murmurs, No rub noted, No Gallop Abdomen: Bowel Sounds Present, Soft, Non Tender, Passing Flatus, Obese Extremities: No clubbing, No cyanosis, No edema, - - heel boots in place Skin: No rashes, Incision - L hip, dressing C/D/I. polar care in place Musculoskeletal: Tenderness - L hip Lymphatic: No Cervical, Supraclavicular, or Inguinal Adenopathy Neurological: Cranial nerves II-XII grossly intact, Neuro grossly intact, Motor Exam 5/5 strength throughout Psych/Mental Status: Appropriate, Flat Affect, - - fatigued but conversing appropriately. Has been refusing BiPAP. Vital Signs Temp Pulse Resp BP Pulse Ox 98.3 F 75 18 87/51 L 95 01/31/18 08:52 01/31/18 09:05 01/31/18 08:52 01/31/18 09:05 01/31/18 08:52 Oxygen Flow Rate (L/min) 5 Oxygen Delivery Method Nasal Cannula Weight: 275 lb 12.772 oz Body Mass Index (BMI) 47.9 Intake and Output for Last 24 Hours 01/29/18 01/30/18 01/31/18 23:59 23:59 23:59 Intake Total 2736 / 2736 887 / 887 530 / 530 Output Total 1125 / 1125 1725 / 1725 375 / 375 Balance 1611 / 1611 -838 / -838 155 / 155 Laboratory Tests Past 24 Hrs 01/31/18 01/31/18 01/31/18 06:00 06:00 11:04 WBC 10.2 RBC 3.70 L Hgb 10.5 L Hct 35.0 L MCV 94.6 MCH 28.4 MCHC 30.0 L RDW 15.7 H RDW Differential 54.1 H Plt Count 246 MPV 9.2 Immature Gran % (Auto) 0.100 Neut % (Auto) 78.8 H Lymph % (Auto) 8.6 L [place] % (Auto) 10.4 H Eos % (Auto) 1.9 Baso % (Auto) 0.2 Absolute Neuts (auto) 8.0 H Absolute Lymphs (auto) 0.88 Total Counted Not Reportable Specimen Type ART Sample Site L Radial pH 7.32 L Bicarbonate Actual 30.0 H POC Total CO2 32 Base Excess 4 H O2 Saturation 92 L ABG pCO2 58.9 H ABG pO2 71 L Andry Test POS O2 Delivery Device Nasal Can Liter Flow 5.0 Blood Gas Notified Whom HOSP Blood Gas Notified Time 1100 Sodium 138 Potassium 4.5 Chloride 103 Carbon Dioxide 26.0 Anion Gap 9 BUN 34 H Creatinine 1.65 H Estim Creat Clear Calc 28.57 Est GFR (MDRD) Af Amer 40 L Est GFR (MDRD) Non-Af 33 L BUN/Creatinine Ratio 20.6 H Glucose 101 Calcium 8.3 L Medical Necessity - Tobacco Use Smoking Status: Former smoker Assessment/Plan Active and Suspected Problems (Last Reviewed 01/19/18 @ 16:26 by Aleyda Mendez) Hip fracture (Acute) Preop cardiovascular exam (Acute) RECOMMENDATIONS: 1. Continue perioperative BiPAP utilization 2. Wean supplemental oxygen as tolerated 3. Encourage aggressive incentive spirometer use and mobilize patient as quickly as possible postoperatively 4. Continue perioperative bronchodilators 5. Conservative use of sedating pain medications, given tendency for alveolar hypoventilation to develop. 6. Recommend close outpatient follow-up in the pulmonary medicine clinic following discharge. IMPRESSIONS: 1. Chronic hypoxemic respiratory failure/COPD of unknown severity/obstructive sleep apnea with outpatient BiPAP noncompliance Patient is not a very good historian from a pulmonary perspective. Patient has been seen by Dr. Mccullough in the past, but reportedly has not been compliant. Stressed to the patient the importance of compliance with BiPAP therapy given need for pain medications and for postoperative recruitment. Patient voiced understanding but continues to leave her BiPAP on. We will continue with incentive spirometer and bronchodilators perioperatively. Patient is aware that she may have worsening hypoxemia postoperatively that will get worse without compliance with incentive spirometer and BiPAP therapy. Continue to wean oxygen as tolerated. Mobilize and work with therapy. 2. Left hip displaced intertrochanteric fracture with ORIF postop day #2 Dressing dry and intact. Working with physical therapy. Would likely benefit from further skilled therapy. 3. Personal history of pulmonary nodules Again, as noted above, the patient was lost to follow-up. Further chest imaging can be obtained for evaluation on an outpatient basis. Plans for inpatient rehab versus TCU at discharge. 4. Super morbid obesity/heart failure with preserved ejection fraction/hypertension/paroxysmal atrial fibrillation/chronic pain syndrome/GERD/anxiety Complicates care, management, recovery and prognosis. Continue home medications as indicated. Cardiology and hospitalist are also following. This note was generated with [employer] dictation software. It may contain incorrect words, spelling, and punctuation that were not noted in checking the note before signing.
[2018-01-31 11:47] LABS: Color, Urine Yellow (Yellow); Glucose, Dipstick Normal (Normal); Ketone-Dipstick 5 mg/dl (Negative); Leukocyte Esterase-Dipstick 100 /ul (Negative); Nitrite-Dipstick Negative (Negative); Occult Blood-Urine 25 /ul (Negative); Protein-Dipstick 30 mg/dl (Negative); Urine Bilirubin Dipstick 3 mg/dL (Negative); Urine Clarity Cloudy (Clear); Urine Urobilinogen 1 mg/dl (Normal)
[2018-01-31 11:53] LABS: Red Blood Cells-Urine 0-5 SEEN /hpf (0-5); Squamous Epithelial Cells - UA 0-5 SEEN /hpf (5-10); White Blood Cells 10-25 SEEN /hpf (0-5)
[2018-01-31 11:54] LABS: Bacteria 2+ /hpf (None Seen); Mucous, Urine 1+ /hpf (<or=2+)
--- NOTE | 2018-01-31 13:26 | PCM.PN.ORT ---
Patient Problems: Active and Suspected Problems (Last Reviewed 01/19/18 @ 16:26 by Aleyda Mendez) Hip fracture (Acute) Preop cardiovascular exam (Acute) Subjective: Patient is resting in bed during exam. She has oxygen flowing per nasal cannula. She is falling asleep during the exam. She does answer questions appropriately. She complains of pain in the left hip. She denies chest pain, calf pain, or dizziness. Per Dr. Clemons she has been hypotensive and lethargic her pain medications were decreased as a result. Objective: Patient is somewhat lethargic during the exam. Alert and oriented ?3. No acute distress at rest. Breathing easily without respiratory distress with oxygen flowing. Inspection of left hip reveals a dressing that is clean, dry, intact. Negative Peggy bilaterally. Without signs of DVT. Sensation intact light touch bilateral lower extremities. Pedal pulses present and equal bilaterally. Patient is neurovascularly intact. Patient is able to actively plantar and dorsiflex bilateral feet against resistance. - Physical Exam Vital Signs Temp Pulse Resp BP Pulse Ox 99.0 F 68 18 89/48 L 94 01/31/18 13:17 01/31/18 13:17 01/31/18 13:17 01/31/18 13:17 01/31/18 13:17 Oxygen Flow Rate (L/min) 5 Oxygen Delivery Method Nasal Cannula Weight: 125.1 kg Body Mass Index (BMI) 47.9 Intake and Output for Last 24 Hours 01/29/18 01/30/18 01/31/18 23:59 23:59 23:59 Intake Total 2736 / 2736 887 / 887 1378 / 1378 Output Total 1125 / 1125 1725 / 1725 435 / 435 Balance 1611 / 1611 -838 / -838 943 / 943 Laboratory Tests Past 24 Hrs 01/31/18 01/31/18 01/31/18 06:00 06:00 11:04 WBC 10.2 RBC 3.70 L Hgb 10.5 L Hct 35.0 L MCV 94.6 MCH 28.4 MCHC 30.0 L RDW 15.7 H RDW Differential 54.1 H Plt Count 246 MPV 9.2 Immature Gran % (Auto) 0.100 Neut % (Auto) 78.8 H Lymph % (Auto) 8.6 L [place] % (Auto) 10.4 H Eos % (Auto) 1.9 Baso % (Auto) 0.2 Absolute Neuts (auto) 8.0 H Absolute Lymphs (auto) 0.88 Total Counted Not Reportable Specimen Type ART Sample Site L Radial pH 7.32 L Bicarbonate Actual 30.0 H POC Total CO2 32 Base Excess 4 H O2 Saturation 92 L ABG pCO2 58.9 H ABG pO2 71 L Andry Test POS O2 Delivery Device Nasal Can Liter Flow 5.0 Blood Gas Notified Whom [facility] Blood Gas Notified Time 1100 Sodium 138 Potassium 4.5 Chloride 103 Carbon Dioxide 26.0 Anion Gap 9 BUN 34 H Creatinine 1.65 H Estim Creat Clear Calc 28.57 Est GFR (MDRD) Af Amer 40 L Est GFR (MDRD) Non-Af 33 L BUN/Creatinine Ratio 20.6 H Glucose 101 Calcium 8.3 L Urine Color Urine Clarity Urine pH Ur Specific [place] Urine Protein Urine Glucose (UA) Urine Ketones Urine Occult Blood Urine Nitrite Urine Bilirubin Urine Urobilinogen Ur Leukocyte Esterase Urine RBC Urine WBC Ur Squamous Epith Cells Urine Bacteria Urine Mucus 01/31/18 11:20 WBC RBC Hgb Hct MCV MCH MCHC RDW RDW Differential Plt Count MPV Immature Gran % (Auto) Neut % (Auto) Lymph % (Auto) [place] % (Auto) Eos % (Auto) Baso % (Auto) Absolute Neuts (auto) Absolute Lymphs (auto) Total Counted Specimen Type Sample Site pH Bicarbonate Actual POC Total CO2 Base Excess O2 Saturation ABG pCO2 ABG pO2 Andry Test O2 Delivery Device Liter Flow Blood Gas Notified Whom Blood Gas Notified Time Sodium Potassium Chloride Carbon Dioxide Anion Gap BUN Creatinine Estim Creat Clear Calc Est GFR (MDRD) Af Amer Est GFR (MDRD) Non-Af BUN/Creatinine Ratio Glucose Calcium Urine Color Yellow Urine Clarity Cloudy Urine pH 5.0 Ur Specific [place] 1.030 Urine Protein 30 H Urine Glucose (UA) Normal Urine Ketones 5 H Urine Occult Blood 25 H Urine Nitrite Negative Urine Bilirubin 3 H Urine Urobilinogen 1 H Ur Leukocyte Esterase 100 H Urine RBC 0-5 SEEN Urine WBC 10-25 SEEN Ur Squamous Epith Cells 0-5 SEEN Urine Bacteria 2+ Urine Mucus 1+ Medical Necessity - Tobacco Use Smoking Status: Former smoker Assessment/Plan Active and Suspected Problems (Last Reviewed 01/19/18 @ 16:26 by Aleyda Mendez) Hip fracture (Acute) Preop cardiovascular exam (Acute) 1. Status post ORIF left hip; postop day #2 2. Continue pain medication regimen as recommended per Dr. Clemons 3. DVT prophylaxis; bilateral teds, SCDs and Lovenox therapy 4. Continue PT/OT; partial weightbearing left lower extremity with a walker 5. Drop in hemoglobin/hematocrit; asymptomatic, without indication for transfusion 6. Encourage incentive spirometry 7. Continue postoperative medical management per hospitalist, cardiology, pulmonology 8. Patient is orthopedically stable and okay for discharge to intermediate facility when cleared medically. Recommend follow-up with [facility] 10-14 days postoperative with x-rays.
--- NOTE | 2018-01-31 16:01 | CASEMGMT ---
Social work note SW received a call from Tonia with [facility] Medicare stating that pt doesn't meet criteria for inpatient rehab but that they agree to SNF placement for pt. Per previous note, pt was interested in TCU at discharge. ANGLE placed a call to Katia in TCU and left a message regarding referral. ANGLE placed a call to Caro x. [phone] but the extension is for [facility] and not [facility]. ANGLE placed a call to Vicki with inpatient rehab and informed her that [employer] denied pt for inpatient rehab but approved for SNF. She states that she will inform [facility] to submit pre-cert for TCU. ANGLE will continue to follow along to assist with discharge planning. Plan: TCU pending pre-cert Leanne Holder INFORMATION RESOURCE CONSULTANT, FERRULER
[2018-01-31] MEDS: 0.9% Normal Saline 1,000 ML 60 ML IV (20:40)
[2018-01-31] MEDS: Ceftriaxone 1 GM/50 ML BAG IV (20:40)
[2018-02-01] VITALS (10 sets, daily range): BP systolic 102–144; BP diastolic 50–74; PULSE 66–102; RESP 18–21; TEMP 36.1–37.1; O2SAT 93–98
[2018-02-01] MEDS: oxyCODONE 5 MG Tablet PO ×4 (00:46→15:05)
[2018-02-01] MEDS: Enoxaparin 40 MG/0.4 ML Syringe SC (05:44)
[2018-02-01] MEDS: Acetaminophen 500 MG Tablet 1000 MG PO ×2 (05:44→13:47)
[2018-02-01] MEDS: Pramipexole Di-HCl 0.5 MG Tablet PO ×2 (05:44→13:48)
[2018-02-01] MEDS: Nystatin Powder 15gm Bottle 1 APPLIC TOPICAL ×2 (05:45→13:48)
[2018-02-01 06:00] LABS: Absolute Lymphocyte Count 0.87 X10^3/ul (0.83-4.51); Absolute Neutrophil Count 6.8 X10^3/uL (2.0-7.7); Basophil# 0.03 X10^3/uL; Basophil% 0.3 % (0-1); Eosinophil# 0.26 X10^3/uL; Eosinophils% 2.9 % (0-5); Hematocrit 32.5 % (37-47); Hemoglobin 9.7 g/dl (12.0-15.0); Lymphocyte # 0.87 X10^3/ul (4.0); Lymphocyte % 9.7 % (19-41); Mean Corp Hgb Conc 29.8 g/gl (32-36); Mean Corpuscular Hgb 28.6 pg (27.0-32.0); Mean Corpuscular Volume 95.9 fL (81-99); Mean Platelet Vol. 9.3 fl (6.2-12.0); Monocyte# 0.97 X10^3/uL; Monocyte% 10.8 % (0-10); Neutrophil # 6.78 X10^3/uL (2.7-7.7); Neutrophil % 75.9 % (47-70); Platelet Count 300 K/mm3 (150-450); RBC Distribution Width CV 15.6 % (11.6-14.6); RBC Distribution Width SD 52.5 fl (35.1-43.9); Red Blood Count 3.39 M/mm3 (4.2-5.4)
[2018-02-01 06:10] LABS: POSITIVE COUNT NO; POSITIVE DIFFERENTIAL NO; POSITIVE MORPHOLOGY NO
[2018-02-01 06:28] LABS: Anion Gap 6 (5-15); BUN 34 mg/dL (7-18); BUN/Creat Ratio 30.1 RATIO (10-20); Calcium,Total 8.7 mg/dL (8.5-10.1); Chloride 104 mmol/L (98-107); Creatinine, Serum 1.13 mg/dL (0.55-1.02); EST Glomerular Filtration Rate 51 mL/min (>60); Est Glom Filt Rate - Afr Amer 62 mL/min (>60); Estimated Creatinine Clearance 41.72 ml/min; Glucose 102 mg/dL (74-106); Potassium 4.5 mmol/L (3.5-5.1); Sodium Level 141 mmol/L (136-145)
[2018-02-01] MEDS: Budesonide Respules 0.5 MG/2 ML AMPUL.NEB. INHALATION ×2 (07:16→18:47)
[2018-02-01] MEDS: Ipratropium/Albuterol Sulfate 3 ML AMPUL.NEB INHALATION ×3 (07:16→18:47)
--- NOTE | 2018-02-01 07:33 | PCM.PROGNOTE ---
Patient Problems: Active and Suspected Problems (Last Reviewed 01/19/18 @ 16:26 by Aleyda Mendez) Hip fracture (Acute) Preop cardiovascular exam (Acute) Subjective: Patient did okay overnight. Patient was transitioned to home unit for sleep apnea and uses a nasal interface. Patient is reporting increased pain this morning in the lower back and hip, but is very responsive. - Physical Exam General: Alert, Oriented x3, Cooperative, No apparent distress, - - Morbidly obese. Speaking in full sentences. HEENT: Atraumatic, PERRLA, EOMI, Normocephalic, - - No scleral icterus or injection noted. Oral: Moist Mucosa, No Gingival or Mucosal Lesions/ Ulcerations, - - Poorly fitting dentures noted. Neck: Supple, No JVD, No Nodes, Trachea Midline Lungs: No rhonchi, No rales, Diminished, Wheezes, - - Symmetric expansion Cardiovascular: Regular rate, Regular Rhythm, Normal S1, Normal S2, No murmurs, No rub noted, No Gallop Abdomen: Bowel Sounds Present, Soft, Non Tender, Non-Distended, Obese Extremities: No clubbing, No cyanosis, No edema Skin: - - Incision bandage is clean, dry and intact. Musculoskeletal: No Tenderness to Palpation of Joints or Extremities, No Muscle Wasting Lymphatic: No Cervical, Supraclavicular, or Inguinal Adenopathy Neurological: Cranial nerves II-XII grossly intact, Neuro grossly intact, Motor Exam 5/5 strength throughout Psych/Mental Status: Alert and oriented to time, place, person, mood and affect Vital Signs Temp Pulse Resp BP Pulse Ox 37.1 C 102 H 18 144/74 H 98 02/01/18 05:50 02/01/18 05:50 02/01/18 05:50 02/01/18 05:50 02/01/18 05:50 Oxygen Flow Rate (L/min) 4 Oxygen Delivery Method Nasal Cannula Weight: 127.9 kg Body Mass Index (BMI) 47.9 Intake and Output for Last 24 Hours 01/30/18 01/31/18 02/01/18 23:59 23:59 23:59 Intake Total 887 / 887 2838 / 2838 1380 / 1380 Output Total 1725 / 1725 485 / 485 400 / 400 Balance -838 / -838 2353 / 2353 980 / 980 Laboratory Tests Past 24 Hrs 01/31/18 01/31/18 02/01/18 11:04 11:20 05:40 WBC 9.0 RBC 3.39 L Hgb 9.7 L Hct 32.5 L MCV 95.9 MCH 28.6 MCHC 29.8 L RDW 15.6 H RDW Differential 52.5 H Plt Count 300 MPV 9.3 Immature Gran % (Auto) 0.400 Neut % (Auto) 75.9 H Lymph % (Auto) 9.7 L [place] % (Auto) 10.8 H Eos % (Auto) 2.9 Baso % (Auto) 0.3 Absolute Neuts (auto) 6.8 Absolute Lymphs (auto) 0.87 Total Counted Not Reportable Specimen Type ART Sample Site L Radial pH 7.32 L Bicarbonate Actual 30.0 H POC Total CO2 32 Base Excess 4 H O2 Saturation 92 L ABG pCO2 58.9 H ABG pO2 71 L Andry Test POS O2 Delivery Device Nasal Can Liter Flow 5.0 Blood Gas Notified Whom HOSP MD Blood Gas Notified Time 1100 Sodium Potassium Chloride Carbon Dioxide Anion Gap BUN Creatinine Estim Creat Clear Calc Est GFR (MDRD) Af Amer Est GFR (MDRD) Non-Af BUN/Creatinine Ratio Glucose Calcium B-Natriuretic Peptide Urine Color Yellow Urine Clarity Cloudy Urine pH 5.0 Ur Specific [place] 1.030 Urine Protein 30 H Urine Glucose (UA) Normal Urine Ketones 5 H Urine Occult Blood 25 H Urine Nitrite Negative Urine Bilirubin 3 H Urine Urobilinogen 1 H Ur Leukocyte Esterase 100 H Urine RBC 0-5 SEEN Urine WBC 10-25 SEEN Ur Squamous Epith Cells 0-5 SEEN Urine Bacteria 2+ Urine Mucus 1+ 02/01/18 02/01/18 05:40 05:40 WBC RBC Hgb Hct MCV MCH MCHC RDW RDW Differential Plt Count MPV Immature Gran % (Auto) Neut % (Auto) Lymph % (Auto) [place] % (Auto) Eos % (Auto) Baso % (Auto) Absolute Neuts (auto) Absolute Lymphs (auto) Total Counted Specimen Type Sample Site pH Bicarbonate Actual POC Total CO2 Base Excess O2 Saturation ABG pCO2 ABG pO2 Andry Test O2 Delivery Device Liter Flow Blood Gas Notified Whom Blood Gas Notified Time Sodium 141 Potassium 4.5 Chloride 104 Carbon Dioxide 31.0 Anion Gap 6 BUN 34 H Creatinine 1.13 H Estim Creat Clear Calc 41.72 Est GFR (MDRD) Af Amer 62 Est GFR (MDRD) Non-Af 51 L BUN/Creatinine Ratio 30.1 H Glucose 102 Calcium 8.7 B-Natriuretic Peptide Pending Urine Color Urine Clarity Urine pH Ur Specific [place] Urine Protein Urine Glucose (UA) Urine Ketones Urine Occult Blood Urine Nitrite Urine Bilirubin Urine Urobilinogen Ur Leukocyte Esterase Urine RBC Urine WBC Ur Squamous Epith Cells Urine Bacteria Urine Mucus Clinical Impression(s) from Imaging Studies Chest X-Ray 01/31/18 10:12 IMPRESSION: Worsening of the bibasilar atelectasis and/or early infiltrates. Mild degree of vascular congestion. Electronically Signed: Ivan Arce MD at 12:53 EDT Tel [phone], Service support , Medical Necessity - Tobacco Use Smoking Status: Former smoker Assessment/Plan Active and Suspected Problems (Last Reviewed 01/19/18 @ 16:26 by Aleyda Mendez) Hip fracture (Acute) Preop cardiovascular exam (Acute) RECOMMENDATIONS: 1. Continue perioperative BiPAP utilization 2. Wean supplemental oxygen as tolerated 3. Encourage aggressive incentive spirometer use and mobilize patient as quickly as possible postoperatively 4. Continue perioperative bronchodilators 5. Conservative use of sedating pain medications, given tendency for alveolar hypoventilation to develop. 6. Recommend close outpatient follow-up in the pulmonary medicine clinic following discharge. IMPRESSIONS: 1. Chronic hypoxemic respiratory failure/COPD of unknown severity/obstructive sleep apnea with outpatient BiPAP noncompliance Still with high nasal cannula oxygen requirements. That being said, patient did have atelectasis noted on chest x-ray and would benefit from positive pressure overnight with sleep. Patient will be arranged to have a full facemask. Also encouraged aggressive use of incentive spirometer. Increased mobility will also help. Cough is expected and should not be suppressed as this will help with recruitment. 2. Left hip displaced intertrochanteric fracture Plans for surgical intervention by Dr. Murillo. 3. Personal history of pulmonary nodules Again, as noted above, the patient was lost to follow-up. Further chest imaging can be obtained for evaluation on an outpatient basis. 4. Super morbid obesity/heart failure with preserved ejection fraction/hypertension/paroxysmal atrial fibrillation/chronic pain syndrome/GERD/anxiety Complicates care, management, recovery and prognosis. Continue home medications as indicated. Cardiology and hospitalist are also following. This note was generated with [employer] software. It may contain incorrect words, spelling, and punctuation that were not noted in checking the note before signing. Code Visit Inpatient E&M: 53093 Subs Hosp L2
--- NOTE | 2018-02-01 07:53 | PCM.PN.ORT ---
Patient Problems: Active and Suspected Problems (Last Reviewed 01/19/18 @ 16:26 by Aleyda Mendez) Hip fracture (Acute) Preop cardiovascular exam (Acute) Subjective: Patient status is unchanged from yesterday afternoon. She is resting in bed during exam. No adverse events overnight. She complains of pain in the left hip. Objective: Patient is alert and oriented ?3. No acute distress at rest. Oxygen flowing per nasal cannula. Breathing easily without respiratory distress. Inspection of dressing is clean, dry, intact. Negative Peggy bilaterally. Without signs of DVT. Patient able to actively plantar and dorsiflex bilateral feet against resistance. Pedal pulses present and equal bilaterally. Patient is neurovascularly intact. - Physical Exam Vital Signs Temp Pulse Resp BP Pulse Ox 98.8 F 102 H 18 144/74 H 98 02/01/18 05:50 02/01/18 05:50 02/01/18 05:50 02/01/18 05:50 02/01/18 05:50 Oxygen Flow Rate (L/min) 4 Oxygen Delivery Method Nasal Cannula Weight: 127.9 kg Body Mass Index (BMI) 47.9 Intake and Output for Last 24 Hours 01/30/18 01/31/18 02/01/18 23:59 23:59 23:59 Intake Total 887 / 887 2838 / 2838 1380 / 1380 Output Total 1725 / 1725 485 / 485 400 / 400 Balance -838 / -838 2353 / 2353 980 / 980 Laboratory Tests Past 24 Hrs 01/31/18 01/31/18 02/01/18 11:04 11:20 05:40 WBC 9.0 RBC 3.39 L Hgb 9.7 L Hct 32.5 L MCV 95.9 MCH 28.6 MCHC 29.8 L RDW 15.6 H RDW Differential 52.5 H Plt Count 300 MPV 9.3 Immature Gran % (Auto) 0.400 Neut % (Auto) 75.9 H Lymph % (Auto) 9.7 L [place] % (Auto) 10.8 H Eos % (Auto) 2.9 Baso % (Auto) 0.3 Absolute Neuts (auto) 6.8 Absolute Lymphs (auto) 0.87 Total Counted Not Reportable Specimen Type ART Sample Site L Radial pH 7.32 L Bicarbonate Actual 30.0 H POC Total CO2 32 Base Excess 4 H O2 Saturation 92 L ABG pCO2 58.9 H ABG pO2 71 L Andry Test POS O2 Delivery Device Nasal Can Liter Flow 5.0 Blood Gas Notified Whom [facility] Blood Gas Notified Time 1100 Sodium Potassium Chloride Carbon Dioxide Anion Gap BUN Creatinine Estim Creat Clear Calc Est GFR (MDRD) Af Amer Est GFR (MDRD) Non-Af BUN/Creatinine Ratio Glucose Calcium B-Natriuretic Peptide Urine Color Yellow Urine Clarity Cloudy Urine pH 5.0 Ur Specific [place] 1.030 Urine Protein 30 H Urine Glucose (UA) Normal Urine Ketones 5 H Urine Occult Blood 25 H Urine Nitrite Negative Urine Bilirubin 3 H Urine Urobilinogen 1 H Ur Leukocyte Esterase 100 H Urine RBC 0-5 SEEN Urine WBC 10-25 SEEN Ur Squamous Epith Cells 0-5 SEEN Urine Bacteria 2+ Urine Mucus 1+ 02/01/18 02/01/18 05:40 05:40 WBC RBC Hgb Hct MCV MCH MCHC RDW RDW Differential Plt Count MPV Immature Gran % (Auto) Neut % (Auto) Lymph % (Auto) [place] % (Auto) Eos % (Auto) Baso % (Auto) Absolute Neuts (auto) Absolute Lymphs (auto) Total Counted Specimen Type Sample Site pH Bicarbonate Actual POC Total CO2 Base Excess O2 Saturation ABG pCO2 ABG pO2 Andry Test O2 Delivery Device Liter Flow Blood Gas Notified Whom Blood Gas Notified Time Sodium 141 Potassium 4.5 Chloride 104 Carbon Dioxide 31.0 Anion Gap 6 BUN 34 H Creatinine 1.13 H Estim Creat Clear Calc 41.72 Est GFR (MDRD) Af Amer 62 Est GFR (MDRD) Non-Af 51 L BUN/Creatinine Ratio 30.1 H Glucose 102 Calcium 8.7 B-Natriuretic Peptide Pending Urine Color Urine Clarity Urine pH Ur Specific [place] Urine Protein Urine Glucose (UA) Urine Ketones Urine Occult Blood Urine Nitrite Urine Bilirubin Urine Urobilinogen Ur Leukocyte Esterase Urine RBC Urine WBC Ur Squamous Epith Cells Urine Bacteria Urine Mucus Medical Necessity - Tobacco Use Smoking Status: Former smoker Assessment/Plan Active and Suspected Problems (Last Reviewed 01/19/18 @ 16:26 by Aleyda Mendez) Hip fracture (Acute) Preop cardiovascular exam (Acute) 1. Status post ORIF left hip; postop day #3 2. Continue pain medication regimen as recommended per Dr. Clemons hypotension and lethargy has improved 3. DVT prophylaxis; bilateral teds, SCDs and Lovenox therapy 4. Continue PT/OT; partial weightbearing left lower extremity with a walker 5. Drop in hemoglobin/hematocrit; asymptomatic, without indication for transfusion 6. Encourage incentive spirometry 7. Continue postoperative medical management per hospitalist, cardiology, pulmonology 8. Patient is orthopedically stable and okay for discharge to longterm facility when cleared medically. Recommend follow-up with [facility] 10-14 days postoperative with x-rays.
--- NOTE | 2018-02-01 08:01 | PN_ITS ---
Patient Problems: Active and Suspected Problems (Last Reviewed 01/19/18 @ 16:26 by Aleyda Mendez) Hip fracture (Acute) Preop cardiovascular exam (Acute) Subjective: Patient did okay overnight. Patient was transitioned to home unit for sleep apnea and uses a nasal interface. Patient is reporting increased pain this morning in the lower back and hip, but is very responsive. - Physical Exam General: Alert, Oriented x3, Cooperative, No apparent distress, - - Morbidly obese. Speaking in full sentences. HEENT: Atraumatic, PERRLA, EOMI, Normocephalic, - - No scleral icterus or injection noted. Oral: Moist Mucosa, No Gingival or Mucosal Lesions/ Ulcerations, - - Poorly fitting dentures noted. Neck: Supple, No JVD, No Nodes, Trachea Midline Lungs: No rhonchi, No rales, Diminished, Wheezes, - - Symmetric expansion Cardiovascular: Regular rate, Regular Rhythm, Normal S1, Normal S2, No murmurs, No rub noted, No Gallop Abdomen: Bowel Sounds Present, Soft, Non Tender, Non-Distended, Obese Extremities: No clubbing, No cyanosis, No edema Skin: - - Incision bandage is clean, dry and intact. Musculoskeletal: No Tenderness to Palpation of Joints or Extremities, No Muscle Wasting Lymphatic: No Cervical, Supraclavicular, or Inguinal Adenopathy Neurological: Cranial nerves II-XII grossly intact, Neuro grossly intact, Motor Exam 5/5 strength throughout Psych/Mental Status: Alert and oriented to time, place, person, mood and affect Vital Signs Temp Pulse Resp BP Pulse Ox 37.1 C 102 H 18 144/74 H 98 02/01/18 05:50 02/01/18 05:50 02/01/18 05:50 02/01/18 05:50 02/01/18 05:50 Oxygen Flow Rate (L/min) 4 Oxygen Delivery Method Nasal Cannula Weight: 127.9 kg Body Mass Index (BMI) 47.9 Intake and Output for Last 24 Hours 01/30/18 01/31/18 02/01/18 23:59 23:59 23:59 Intake Total 887 / 887 2838 / 2838 1380 / 1380 Output Total 1725 / 1725 485 / 485 400 / 400 Balance -838 / -838 2353 / 2353 980 / 980 Laboratory Tests Past 24 Hrs 01/31/18 01/31/18 02/01/18 11:04 11:20 05:40 WBC 9.0 RBC 3.39 L Hgb 9.7 L Hct 32.5 L MCV 95.9 MCH 28.6 MCHC 29.8 L RDW 15.6 H RDW Differential 52.5 H Plt Count 300 MPV 9.3 Immature Gran % (Auto) 0.400 Neut % (Auto) 75.9 H Lymph % (Auto) 9.7 L [place] % (Auto) 10.8 H Eos % (Auto) 2.9 Baso % (Auto) 0.3 Absolute Neuts (auto) 6.8 Absolute Lymphs (auto) 0.87 Total Counted Not Reportable Specimen Type ART Sample Site L Radial pH 7.32 L Bicarbonate Actual 30.0 H POC Total CO2 32 Base Excess 4 H O2 Saturation 92 L ABG pCO2 58.9 H ABG pO2 71 L Andry Test POS O2 Delivery Device Nasal Can Liter Flow 5.0 Blood Gas Notified Whom HOSP MD Blood Gas Notified Time 1100 Sodium Potassium Chloride Carbon Dioxide Anion Gap BUN Creatinine Estim Creat Clear Calc Est GFR (MDRD) Af Amer Est GFR (MDRD) Non-Af BUN/Creatinine Ratio Glucose Calcium B-Natriuretic Peptide Urine Color Yellow Urine Clarity Cloudy Urine pH 5.0 Ur Specific [place] 1.030 Urine Protein 30 H Urine Glucose (UA) Normal Urine Ketones 5 H Urine Occult Blood 25 H Urine Nitrite Negative Urine Bilirubin 3 H Urine Urobilinogen 1 H Ur Leukocyte Esterase 100 H Urine RBC 0-5 SEEN Urine WBC 10-25 SEEN Ur Squamous Epith Cells 0-5 SEEN Urine Bacteria 2+ Urine Mucus 1+ 02/01/18 02/01/18 05:40 05:40 WBC RBC Hgb Hct MCV MCH MCHC RDW RDW Differential Plt Count MPV Immature Gran % (Auto) Neut % (Auto) Lymph % (Auto) [place] % (Auto) Eos % (Auto) Baso % (Auto) Absolute Neuts (auto) Absolute Lymphs (auto) Total Counted Specimen Type Sample Site pH Bicarbonate Actual POC Total CO2 Base Excess O2 Saturation ABG pCO2 ABG pO2 Andry Test O2 Delivery Device Liter Flow Blood Gas Notified Whom Blood Gas Notified Time Sodium 141 Potassium 4.5 Chloride 104 Carbon Dioxide 31.0 Anion Gap 6 BUN 34 H Creatinine 1.13 H Estim Creat Clear Calc 41.72 Est GFR (MDRD) Af Amer 62 Est GFR (MDRD) Non-Af 51 L BUN/Creatinine Ratio 30.1 H Glucose 102 Calcium 8.7 B-Natriuretic Peptide Pending Urine Color Urine Clarity Urine pH Ur Specific [place] Urine Protein Urine Glucose (UA) Urine Ketones Urine Occult Blood Urine Nitrite Urine Bilirubin Urine Urobilinogen Ur Leukocyte Esterase Urine RBC Urine WBC Ur Squamous Epith Cells Urine Bacteria Urine Mucus Clinical Impression(s) from Imaging Studies Chest X-Ray 01/31/18 10:12 IMPRESSION: Worsening of the bibasilar atelectasis and/or early infiltrates. Mild degree of vascular congestion. Electronically Signed: Ivan Arce MD at 12:53 EDT Tel [phone], Service support , Medical Necessity - Tobacco Use Smoking Status: Former smoker Assessment/Plan Active and Suspected Problems (Last Reviewed 01/19/18 @ 16:26 by Aleyda Mendez) Hip fracture (Acute) Preop cardiovascular exam (Acute) RECOMMENDATIONS: 1. Continue perioperative BiPAP utilization 2. Wean supplemental oxygen as tolerated 3. Encourage aggressive incentive spirometer use and mobilize patient as quickly as possible postoperatively 4. Continue perioperative bronchodilators 5. Conservative use of sedating pain medications, given tendency for alveolar hypoventilation to develop. 6. Recommend close outpatient follow-up in the pulmonary medicine clinic following discharge. IMPRESSIONS: 1. Chronic hypoxemic respiratory failure/COPD of unknown severity/ obstructive sleep apnea with outpatient BiPAP noncompliance Still with high nasal cannula oxygen requirements. That being said, patient did have atelectasis noted on chest x-ray and would benefit from positive pressure overnight with sleep. Patient will be arranged to have a full facemask. Also encouraged aggressive use of incentive spirometer. Increased mobility will also help. Cough is expected and should not be suppressed as this will help with recruitment. 2. Left hip displaced intertrochanteric fracture Plans for surgical intervention by Dr. Murillo. 3. Personal history of pulmonary nodules Again, as noted above, the patient was lost to follow-up. Further chest imaging can be obtained for evaluation on an outpatient basis. 4. Super morbid obesity/heart failure with preserved ejection fraction/ hypertension/paroxysmal atrial fibrillation/chronic pain syndrome/GERD/anxiety Complicates care, management, recovery and prognosis. Continue home medications as indicated. Cardiology and hospitalist are also following. This note was generated with [employer] software. It may contain incorrect words, spelling, and punctuation that were not noted in checking the note before signing. Code Visit Inpatient E&M: 09141 Subs Hosp L2
[2018-02-01 08:43] LABS: BNP,B-Type NATRIURETIC PEPTIDE 518.4 pg/mL (0-100)
[2018-02-01] MEDS: Fluticasone 0.05% 1 SPRAY NASAL.SRY NASAL (09:04)
[2018-02-01] MEDS: Metoprolol Tartrate 25 MG Tablet PO (09:04)
[2018-02-01] MEDS: Venlafaxine XR 75 MG Capsule PO (09:04)
[2018-02-01] MEDS: Lisinopril 10 MG Tablet PO (09:05)
[2018-02-01] MEDS: Senna/Docusate Sodium 1 Tablet 2 TABLET PO (09:05)
[2018-02-01] MEDS: Pantoprazole Sodium 40 MG Tablet PO (09:05)
[2018-02-01] MEDS: Flecainide 150 MG Tablet PO (09:05)
--- NOTE | 2018-02-01 10:04 | CASEMGMT ---
Social Work Note ANGLE received a call from Katia in TCU stating that Caro submitted pre-cert yesterday and she will let this worker know when pre-cert is obtained. ANGLE will continue to follow along to assist with discharge planning. Plan: TCU pending pre-cert Leanne Holder MSW, INTERVENTION NURSE
[2018-02-01] MEDS: Ceftriaxone 1 GM/50 ML BAG IV (10:37)
[2018-02-01] MEDS: 0.9% NaCl Peripheral Flush Adult/Peds IV (10:40)
[2018-02-01] MEDS: Ondansetron 4 MG/2 ML Vial IV (10:40)
--- NOTE | 2018-02-01 13:16 | SLEEP ---
Patients current PAP mask is leaking. I fit patient with a new [id number] forHer SMALL FFM and patient states that it was way more comfortable and no leak. Patient sleeps with dentures in, both family and patient state the dentures do not fit well, when I was fitting patient with a mask the air pressure would push the denture up and back some, i explained to the family and patient that its encouraged the denture come out when using the PAP therapy. They verbalized understanding but stated it was not likely to happen per pt request.
--- NOTE | 2018-02-01 13:19 | CASEMGMT ---
Social Work Note SW received call from Katia in TCU that pre-cert was obtained. SW informed Katia that pt is able to discharge today. RN STEFANI Kevin updated Dr. Clemons of this information. SW in to update pt that pre-cert was obtained and pt's daughter Samantha in room. SW updated pt and pt's daughter Samantha that pre-cert was obtained and pt should be able to go to TCU today. Pt's daughter Samantha informed that pt may need additional care once she discharges from TCU and this worker informed Samantha to talk with the FELICIA Moore who will be following pt on TCU. Samantha states understanding. Pt and pt's daughter Samantha denied additional needs or concerns at this time. Plan: Discharge to TCU today for rehabilitation FELICIA Carranza
--- NOTE | 2018-02-01 15:41 | NURSING ---
into talk w/ pt's family and pt at their request. Daughter verbalized concern about her blood pressure. Discussed home medications. Pt states Dr. Yarbrough had decreased the dose to daily on the metoprolol. Discussed how medication list was obtained. Daughter stated they had the pill bottles in the ER, pt stated that what was on the pill bottle wasn't what she had been told to do. This nurse called Dr. Madrid's office w/ [facility] and requested last office visits including home medication list be faxed over as had discussed with patient. Per MANAGER MEDIA at office pt had not seen [facility] daytime babysitter for over a year and had no PCP list. Pt and daughter asked about this. Pt states she had not seen Dr. Yarbrough for over a year but when asked who was ordering the medication for her she could only state that she had enough that had lasted her a year. Pt also verbalizing concern that she thought they were going to do a heart scan and they hadn't. discussed that ECHO was done on 01/30 and results are in computer but physician would have to discuss the results with her. Discussed cardiology follow up at discharge. Aware pt and daughter discussing if they want to switch to [facility]. informed them this nurse would inform dr. Clemons of above information. pt verbalized concern that the blood pressure was why they were not giving pt more pain medication. explained to her that BP is only one factor as to why they would be reluctant to give medication and sedation may play a factor as well. pt and family denies all further needs. call light within reach.
--- NOTE | 2018-02-01 15:49 | CASEMGMT ---
Social Work Note This worker placed green sheet on pt's chart as pt is set to discharge to TCU Today and this worker is leaving for the day. Plan: Discharge to TCU for rehabilitation Leanne HERRERA, RESIDENTIAL ROOFER
--- NOTE | 2018-02-01 19:24 | PCM.TXEXTCAR ---
- Diet 01/29/18 17:00 Diet: Cardiac/Low Cholesterol Is pt able to select menu?: Yes - Routine Orders/Code Status Enema Type: Fleetz Enema Frequency: Daily PRN Suppository Type: Dulcolax 10mg Suppository Frequency: Daily PRN O2 Liters per Minute: 3-4 O2 Frequency: Continuous Keep PO Greater than or Equal to (%): 89 Routine Lab Work: - - CBC, BMP in 1 week - Wound(s) L HIP Wound Type: Surgical Incision Dressing Change: 4X4, ABD, MEDIPORE - Therapies Weight Bearing: Partial weight bearing Extremity Affected:: Left Lower Physical Therapy: Eval and Treat Occupational Therapy: Eval and Treat - Problem/Diagnosis (1) Hip fracture Status: Acute Comment: Left Current Visit: Yes (2) Anxiety Status: Chronic Current Visit: Yes (3) Chronic respiratory failure with hypoxia Status: Chronic Current Visit: Yes (4) Depression Status: Chronic Current Visit: Yes (5) ESPERANZA (obstructive sleep apnea) Status: Chronic Current Visit: Yes (6) Asthma Status: Chronic Current Visit: No (7) COPD (chronic obstructive pulmonary disease) Status: Chronic Current Visit: No (8) Chronic combined systolic and diastolic CHF (congestive heart failure) Status: Chronic Current Visit: No (9) Dysmetabolic syndrome Status: Chronic Current Visit: No (10) Hypertension Status: Chronic Current Visit: No (11) long term care pharmacist current use of antiarrhythmic medical therapy Status: Chronic Current Visit: No (12) 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 Status: Chronic Current Visit: No (13) Non-sustained ventricular tachycardia Status: Chronic Current Visit: No (14) Paroxysmal atrial fibrillation Status: Chronic Current Visit: No (15) Osteoarthritis Status: Chronic Current Visit: Yes (16) Pulmonary nodules Status: Chronic Current Visit: Yes (17) Left ventricular hypertrophy Status: Chronic Current Visit: Yes (18) Noncompliance Status: Acute Comment: with CPAP and physician follow and likely medication as well Current Visit: Yes (19) Tobacco dependence Status: Chronic Comment: [id number] smoking history Current Visit: Yes (20) Acute kidney injury Status: Acute Current Visit: Yes - Allergies/Procedures Done in Hospital Allergies/Adverse Reactions: Allergies ciprofloxacin [From Cipro] Adverse Reaction (Intermediate, Verified 01/28/18 10:32) Other messes with her heart medicine Procedures: 2-D Echocardiogram, - - ORIF of left hip fracture 01/29/[address] Yoseph Murillo - Type of Care/Length of Stay Estimated LOS: Convalescent Care Less Than 30 days Type of Care Needed: Skilled Rehab Potential: Good Prognosis: Good - Additional Orders/Day of Discharge H&P will serve as current which was dated: 01/28/18 Day of Discharge: 02/01/18 - Dietary and Speech Recommendations Dietitian Recommendations/Changes: Rec diet change to cardiac/low cholesterol, low sodium w/ fluid restriction as indicated. - Follow Up Care Primary Care Physician: Reagan He MD [Primary Care Provider] - Please follow up with your Primary Care Physician in: Following discharge from TCU Please Follow Up With: Dr. Yoseph Murillo When: 10-14 days
--- NOTE | 2018-02-01 19:34 | TREXTCAR_ITS ---
- Diet 01/29/18 17:00 Diet: Cardiac/Low Cholesterol Is pt able to select menu?: Yes - Routine Orders/Code Status Enema Type: Fleetz Enema Frequency: Daily PRN Suppository Type: Dulcolax 10mg Suppository Frequency: Daily PRN O2 Liters per Minute: 3-4 O2 Frequency: Continuous Keep PO Greater than or Equal to (%): 89 Routine Lab Work: - - CBC, BMP in 1 week - Wound(s) L HIP Wound Type: Surgical Incision Dressing Change: 4X4, ABD, MEDIPORE - Therapies Weight Bearing: Partial weight bearing Extremity Affected:: Left Lower Physical Therapy: Eval and Treat Occupational Therapy: Eval and Treat - Problem/Diagnosis (1) Hip fracture Status: Acute Comment: Left Current Visit: Yes (2) Anxiety Status: Chronic Current Visit: Yes (3) Chronic respiratory failure with hypoxia Status: Chronic Current Visit: Yes (4) Depression Status: Chronic Current Visit: Yes (5) ESPERANZA (obstructive sleep apnea) Status: Chronic Current Visit: Yes (6) Asthma Status: Chronic Current Visit: No (7) COPD (chronic obstructive pulmonary disease) Status: Chronic Current Visit: No (8) Chronic combined systolic and diastolic CHF (congestive heart failure) Status: Chronic Current Visit: No (9) Dysmetabolic syndrome Status: Chronic Current Visit: No (10) Hypertension Status: Chronic Current Visit: No (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 Status: Chronic Current Visit: No (12) 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 Status: Chronic Current Visit: No (13) Non-sustained ventricular tachycardia Status: Chronic Current Visit: No (14) Paroxysmal atrial fibrillation Status: Chronic Current Visit: No (15) Osteoarthritis Status: Chronic Current Visit: Yes (16) Pulmonary nodules Status: Chronic Current Visit: Yes (17) Left ventricular hypertrophy Status: Chronic Current Visit: Yes (18) Noncompliance Status: Acute Comment: with CPAP and physician follow and likely medication as well Current Visit: Yes (19) Tobacco dependence Status: Chronic Comment: [id number] smoking history Current Visit: Yes (20) Acute kidney injury Status: Acute Current Visit: Yes - Allergies/Procedures Done in Hospital Allergies/Adverse Reactions: Allergies ciprofloxacin [From Cipro] Adverse Reaction (Intermediate, Verified 01/28/18 10: 32) Other messes with her heart medicine Procedures: 2-D Echocardiogram, - - ORIF of left hip fracture 01/29/[address] Yoseph Murillo - Type of Care/Length of Stay Estimated LOS: Convalescent Care Less Than 30 days Type of Care Needed: Skilled Rehab Potential: Good Prognosis: Good - Additional Orders/Day of Discharge H&P will serve as current which was dated: 01/28/18 Day of Discharge: 02/01/18 - Dietary and Speech Recommendations Dietitian Recommendations/Changes: Rec diet change to cardiac/low cholesterol, low sodium w/ fluid restriction as indicated. - Follow Up Care Primary Care Physician: Reagan He MD [Primary Care Provider] - Please follow up with your Primary Care Physician in: Following discharge from TCU Please Follow Up With: Dr. Yoseph Murillo When: 10-14 days
--- NOTE | 2018-02-01 19:34 | PCM.DC.SUM ---
Discharge Date and Diagnosis - Problem List Patient Problems: Active and Suspected Problems (Last Reviewed 01/19/18 @ 16:26 by Aleyda Mendez) Fall (Acute) Closed left hip fracture (Acute) Date of Admission: 01/28/18 Date of Discharge: 02/01/18 - Primary Discharge Diagnosis Active and Suspected Problems (Last Reviewed 01/19/18 @ 16:26 by Aleyda Mendez) Hip fracture (Acute) Left Noncompliance (Acute) with CPAP and physician follow and likely medication as well Acute kidney injury (Acute) Lethargy due to multiple sedating medications - Secondary Discharge Diagnosis Chronic Problems (Last Reviewed 01/19/18 @ 16:26 by Aleyda Mendez) ESPERANZA (obstructive sleep apnea) (Chronic) - non-compliant with CPAP Chronic respiratory failure with hypoxia (Chronic) on 3 LPM of O2. 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 Mild degree of vascular congestion. Electronically Signed: Ivan Arce MD at 12:53 EDT Tel [phone], Service support , Laboratory Results - last 24 hr 02/01/18 05:40 B-Natriuretic Peptide 518.4 H Microbiology 01/31/18 11:20 Urine, Catheterized Urine Culture - Preliminary Culture exhibits no growth. Dr. Yoseph Murillo-orthopedics Operations: - - ORIF left hip fracture on 01/29/[address] Yoseph Murillo Procedures: 2-D Echocardiogram - Ejection fraction 55% with moderate to severe concentric left ventricular hypertrophy and mild biatrial enlargement. Unable to estimate right ventricular systolic pressure due to the technical difficulty of the study and the patient's body habitus. Summary of Care Provided: The patient is a 67-year-old female with a past medical history of anxiety/depression, ESPERANZA (noncompliant with CPAP) , COPD, chronic hypoxic respiratory failure, former [id number] smoker, morbid obesity, PAF, history of nonsustained ventricular tachycardia, chronic systolic and diastolic congestive heart failure and history of pulmonary nodules who fell and sustained a left hip fracture. She was admitted to the hospital on 01/28/[address] Yoseph Murillo was consulted. On 01/29/2018 she underwent a left hip open reduction internal fixation and intramedullary nail fixation by Dr. Murillo. On postoperative day #2 she was somnolent and slurring her speech. She had received tizanidine, oxycodone and ropinirole prior to my exam. Dilaudid and tizanidine were discontinued and the OxyIR was decreased to 5 mg p.o. every 4 hours as needed pain. Tylenol 1000 mg every 8 hours was added. UA was ordered. The UA had 10-25 WBCs per high-powered field but urine culture had no growth. She became more alert and able to stay awake and follow commands with changes in the sedating medications/pain medications. She was transferred to halfway on 02/01/2018. General: alert and oriented X3, NAD, looks older than her stated age Neck: supple, trachea midline, carotids have brisk upstroke and normal pulse volume, no JVD, no carotid bruits Lungs: CTA anterior and lateral but diminished, symmetric chest expansion, poor inspiratory effort Heart: Regular rate and rhythm, normal S1, normal S2, no murmur, no gallop, no rub Abdomen: soft, NT, ND, BS's present Extremities: no edema, no calf tenderness, peripheral pulses are normal, intact sensation intact to both feet. Home Medications: Medications to take at Discharge Albuterol Inhaler [Ventolin Hfa] 1 puff INHALATION Q4H PRN PRN 08/08/13 Fluticasone 0.05% [Flonase Nasal [place]] 1 spray NASAL DAILY 08/08/13 Ipratropium [Atrovent Aerosols] 0.25 mg INHALATION TID 08/08/13 Lisinopril [Zestril] 10 mg PO DAILY 08/08/13 Ropinirole HCl [Requip] 1 mg PO TID 02/18/14 flecainide 150 mg tablet 150 mg PO BID 08/16/17 lorazepam 0.5 mg tablet 0.5 mg PO QDAY PRN #10 tab 11/08/17 Venlafaxine HCl [Venlafaxine HCl ER] 75 mg PO BID 01/28/18 Budesonide/Formoterol 160/4.5 2 inhaler BID 01/30/18 Fluticasone/Salmeterol [Fluticasone-Salmeterol 232-14] 1 puff INHALATION BID 02/01/18 Mag Hydrox/Al Hydrox/Simeth [Mylanta II] 30 ml PO Q6H PRN PRN udc 02/01/18 Metoprolol Tartrate [Lopressor (beta bairon)] 25 mg PO BID 02/01/18 Omeprazole [Prilosec] 40 mg PO BID 02/01/18 Acetaminophen [Tylenol] 1,000 mg PO Q8 tablet 02/28/18 Gabapentin [Neurontin] 300 mg PO QHS #30 cap 02/28/18 Guaifenesin [Mucinex] 1,200 mg PO BID #60 tab 02/28/18 Iron Polysaccharide Complex [Ferrex 150] 150 mg PO DAILYCM #30 cap 02/28/18 Menthol [Bengay Vanishing Scent] 1 applic TOPICAL TID PRN PRN tube 02/28/18 Menthol/Lanolin/Calamine/Znox [Calmoseptine Ointment] 1 applic TOPICAL 4X/DAY tube 02/28/18 Nystatin Powder [Mycostatin Powder] 1 applic TOPICAL TID bottle 02/28/18 Ondansetron [Zofran Odt] 4 mg PO Q6H PRN PRN #60 tab 02/28/18 Oxycodone CR [Oxycontin] 15 mg PO BID #14 tab 02/28/18 Oxycodone [Oxyir] 5 mg PO Q4H PRN PRN #30 tab 02/28/18 Polyethylene Glycol 3350 [Miralax] 17 gm PO DAILY #30 packet 02/28/18 Venlafaxine XR [Effexor Xr] 75 mg PO BID capsule 02/28/18 Primary Care Physician: Reagan He MD [Primary Care Provider] - Please follow up with your Primary Care Physician in: Following discharge from TCU Please Follow Up With: Dr. Yoseph Murillo When: 10-14 days Disposition: [facility] facility Minutes spent on discharge:: 35 Patient Condition:: Stable Medical Necessity - Tobacco Use Smoking Status: Former smoker Meaningful Use Info Meaningful Use Diagnoses (Choose all that apply): None applicable Code Visit Inpatient E&M: 79010 Disch Hosp
--- NOTE | 2018-02-01 21:01 | NURSING ---
Report called to Eva on TCU.
== END 2018-02-01 21:01 | disposition skilled nursing facility (03) | DRG 481 ==
LOC: ED 12:43 → MS3 12:57
PROVIDERS: Orthopaedic Surgery; Admitting Provider Family Medicine; Emergency Provider Emergency Medicine; Family Provider Internal Medicine; PCP Internal Medicine; Visit Provider Internal Medicine
PROC: 0QS706Z Reposition Left Upper Femur with Intramedullary Internal Fixation Device, Open Approach (ICD-10-PCS; CPT 27245; principal; 2018-01-29 12:00)
DX: S72.142A Displaced intertrochanteric fracture of left femur, initial encounter for closed fracture (principal); J96.11 Chronic respiratory failure with hypoxia; I50.42 Chronic combined systolic (congestive) and diastolic (congestive) heart failure; I13.0 Hypertensive heart and chronic kidney disease with heart failure and stage 1 through stage 4 chronic kidney disease, or unspecified chronic kidney disease; I47.2 Ventricular tachycardia; N17.9 Acute kidney failure, unspecified; Z68.42 Body mass index [BMI] 45.0-49.9, adult; W01.0XXA Fall on same level from slipping, tripping and stumbling without subsequent striking against object, initial encounter; I48.0 Paroxysmal atrial fibrillation; F41.9 Anxiety disorder, unspecified; F32.9 Major depressive disorder, single episode, unspecified; G47.33 Obstructive sleep apnea (adult) (pediatric); E86.0 Dehydration; I95.2 Hypotension due to drugs; J44.9 Chronic obstructive pulmonary disease, unspecified; E66.01 Morbid (severe) obesity due to excess calories; Z91.19 Patient's noncompliance with other medical treatment and regimen; K21.9 Gastro-esophageal reflux disease without esophagitis; I11.0 Hypertensive heart disease with heart failure; M19.90 Unspecified osteoarthritis, unspecified site; N18.3 Chronic kidney disease, stage 3 (moderate); G89.4 Chronic pain syndrome; Y93.9 Activity, unspecified; Y92.008 Other place in unspecified non-institutional (private) residence as the place of occurrence of the external cause; Y99.9 Unspecified external cause status; Z87.891 Personal history of nicotine dependence
CPT/HCPCS: 36415; 36600; 51702; 71045; 72170; 73502; 73552; 76000; 80048; 81001; 81002; 82803; 82962; 83735; 83880; 84484; 85025; 86850; 86900; 87086; 93005; 93306; 94640; 97110; 97161; 97166; 97530; 97802; 99251; 99285; C1776; J7030; J7040; J7120; Q9957; A4216; G0463; J2405

== ENCOUNTER 2018-02-01 21:02 | Inpatient (IN) | payer MEDICARE, SELFPAY ==
[2018-02-01 21:06] VITALS: BP 143/79; PULSE 73; RESP 20; TEMP 36.8; O2SAT 96; BMI 45.9
--- NOTE | 2018-02-01 21:10 | NURSING ---
Addendum entered by Katerin Raygoza 02/01/18 21:34: Code status discussed with patient. Patient wishes to be be a full code. Original Note: Patient arrived on the unit at this time via bed from [facility]. Daughter and Granddaughter with patient. Patient acclimated to room and call light.
--- NOTE | 2018-02-01 21:27 | PCM.HP.STD ---
Problem List (1) Fall Status: Acute (2) Closed left hip fracture Status: Acute (3) Back pain Status: Chronic (4) Super obesity Status: Chronic (5) Chronic systolic heart failure Status: Chronic (6) Muscle spasm Status: Chronic (7) GERD (gastroesophageal reflux disease) Status: Chronic (8) ESPERANZA (obstructive sleep apnea) Status: Chronic (9) Anxiety Status: Chronic (10) Depression Status: Chronic (11) Osteoarthritis Status: Chronic (12) Hypertension Status: Chronic (13) Paroxysmal atrial fibrillation Status: Chronic (14) COPD (chronic obstructive pulmonary disease) Status: Chronic Qualifiers: History of Present Illness Date of Admission: 02/01/18 Chief Complaint: Here for rehabilitation, strengthening, prior to discharge home. The patient is a 67 year old Female with below past medical history presented to [facility] Emergency Department 01/28/2018 with fall, left hip pain, unable to walk. 01/28/2018 EKG showed normal sinus rhythm, normal EKG. 01/28/2018 X-ray left femur showed left hip fracture. 01/28/2018 X-ray pelvis showed left hip fracture. Pain medications given, Dr. Yoseph Murillo called. 01/28/2018 Admit to Hospital. Prepare for surger. 01/29/2018 Dr. Murillo performed left hip open reduction internal fixation with intramedullary nail. 01/30/2018 Echo Left ventricular systolic function normal. EF 55% Moderate to severe LVH. 01/31/2018 IV fluid bolus, and continuous for hypotension. Dilaudid, Tizanidine stopped due to sedation. Straight cath UA for low grade fever, UA results equivocal. 02/01/2018 Admit to TCU for rehabilitation, strengthening, prior to discharge home. Past Medical History Past Medical History (Chronic Problems): Chronic Problems (Last Reviewed 01/19/18 @ 16:26 by Aleyda Mendez) ESPERANZA (obstructive sleep apnea) (Chronic) Chronic respiratory failure with hypoxia (Chronic) Anxiety (Chronic) Depression (Chronic) Osteoarthritis (Chronic) Pulmonary nodules (Chronic) Left ventricular hypertrophy (Chronic) Tobacco dependence (Chronic) [id number] smoking history Back pain (Chronic) Super 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) Chronic systolic heart failure (Chronic) Muscle spasm (Chronic) GERD (gastroesophageal reflux disease) (Chronic) Chronic combined systolic and diastolic CHF (congestive heart failure) (Chronic) Non-sustained ventricular tachycardia (Chronic) Dysmetabolic syndrome (Chronic) Hypertension (Chronic) 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) 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) Paroxysmal atrial fibrillation (Chronic) Asthma (Chronic) COPD (chronic obstructive pulmonary disease) (Chronic) Medical History: Medical History (Last Reviewed 01/19/18 @ 16:26 by Aleyda Mendez) Chronic combined systolic and diastolic CHF (congestive heart failure) (Chronic) I50.42 Non-sustained ventricular tachycardia (Chronic) I47.2 Dysmetabolic syndrome (Chronic) E88.81 Hypertension (Chronic) I10 Paroxysmal atrial fibrillation (Chronic) I48.0 Asthma (Chronic) J45.909 COPD (chronic obstructive pulmonary disease) (Chronic) J44.9 Chronic back pain M54.9, G89.29 Chronic bronchitis J42 GERD (gastroesophageal reflux disease) K21.9 Kidney disease, chronic, stage III (GFR 30-59 ml/min) N18.3 blood clots Allergies ciprofloxacin [From Cipro] Adverse Reaction (Intermediate, Verified 01/28/18 10:32) Other messes with her heart medicine Home Medications: Ambulatory Orders Medication Instructions Recorded Albuterol Inhaler [Ventolin Hfa] 1 puff INHALATION Q4H PRN PRN 08/08/13 Fluticasone 0.05% [Flonase Nasal 1 spray NASAL DAILY 08/08/13 [place]] Ipratropium [Atrovent Aerosols] 0.25 mg INHALATION TID 08/08/13 Lisinopril [Zestril] 10 mg PO DAILY 08/08/13 Ropinirole HCl [Requip] 1 mg PO TID 02/18/14 flecainide 150 mg tablet 150 mg PO BID 08/16/17 lorazepam 0.5 mg tablet 0.5 mg PO QDAY PRN #10 tab 11/08/17 Furosemide [Lasix] 40 mg PO 0800 01/28/18 Venlafaxine HCl [Venlafaxine HCl 75 mg PO BID 01/28/18 ER] Budesonide/Formoterol 160/4.5 2 inhaler BID 01/30/18 Albuterol Aerosols [Ventolin 2.5 mg INHALATION Q2H PRN PRN 02/01/18 Aerosols] vial.neb. Enoxaparin [Lovenox] 40 mg SC DAILY@0600 02/01/18 Fluticasone/Salmeterol 1 puff INHALATION BID 02/01/18 [Fluticasone-Salmeterol 232-14] Mag Hydrox/Al Hydrox/Simeth 30 ml PO Q6H PRN PRN udc 02/01/18 [Mylanta II] Magnesium Hydroxide [Milk Of 30 ml PO DAILY PRN PRN udc 02/01/18 Magnesia] Metoprolol Tartrate [Lopressor 25 mg PO BID 02/01/18 (beta bairon)] Omeprazole [Prilosec] 40 mg PO BID 02/01/18 Oxycodone [Oxyir] 5 mg PO Q4H PRN PRN #30 tablet 02/01/18 Surgical History: Surgical History (Last Reviewed 01/19/18 @ 16:26 by Aleyda Mendez) H/O hysterectomy with oophorectomy H/O tubal ligation Z98.51 heart cath knee surgery H/O cardiac radiofrequency ablation Onset Date: ~09/03/13 Z98.890 Surgical History: hysterectomy, - - tubal ligation, oophorectomy, knee surgery, status post cardiac radiofrequency ablation, cardiac catheterization, Left hip ORIF intramedullary nail. Psychiatric History: Anxiety, Depression, - - Non-compliance. 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 Tobacco Use: Non-smoker Alcohol: None Drugs: None - *Family History Maternal Family History: Family History (Last Reviewed 01/19/18 @ 16:26 by Aleyda Mendez) Mother Heart disease Arthritis blood clots Hypertension Father arthrits Cancer Brother Cancer Aunt Breast cancer Depression Ovarian cancer Grandmother CVA (cerebral vascular accident) Aunt Diabetes History Items: Heart Disease, Hypertension, - - Blood clot Paternal Family History: Family History (Last Reviewed 01/19/18 @ 16:26 by Aleyda Mendez) Mother Heart disease Arthritis blood clots Hypertension Father arthrits Cancer Brother Cancer Aunt Breast cancer Depression Ovarian cancer Grandmother CVA (cerebral vascular accident) Aunt Diabetes History Items: Cancer - Lung cancer Review of Systems Constitutional: Denies: Chills, Fever, Weight Change HEENT: Denies: Head Aches, Sinus Congestion, Sinus Drainage Cardiovascular: Denies: Chest Pain, Palpitations Respiratory: Denies: Cough, Shortness of breath at rest, Sputum production Gastrointestinal: Denies: Abdominal Pain, Nausea, Vomiting Genitourinary: Denies: Dysuria Musculoskeletal: Denies: Joint Pain, Joint Tenderness Skin: Denies: Rash, Wounds Neurological: Denies: Numbness, Tingling, Focal weakness Psychiatric: Reports: Anxiety, Depression. Denies: Homicidal Ideations, Suicidal Ideations Hematologic/ Lymphatic: Denies: Easy Bruising, Easy Bleeding VTE Information - Inpt Only VTE Present on Admission: No VTE Mechan Device Prophylaxis: Knee High BEATRICE Hose VTE Pharm Prophylaxis ordered?: Yes Patient Problems: Active and Suspected Problems (Last Reviewed 01/19/18 @ 16:26 by Aleyda Mendez) Fall (Acute) Closed left hip fracture (Acute) - Physical Exam General: Alert, Oriented x3, Cooperative HEENT: Atraumatic, PERRLA, EOMI, Normocephalic Neck: Supple, No JVD, Negative Carotid Bruits Lungs: Clear to auscultation, Normal air movement Cardiovascular: Regular rate, No murmurs Abdomen: Bowel Sounds Present, Soft, Non Tender Extremities: No edema, Capillary Refill Less than 3 Seconds Skin: No rashes, No breakdown Musculoskeletal: No Tenderness to Palpation of Joints or Extremities Neurological: Cranial nerves II-XII grossly intact Psych/Mental Status: Normal Affect, Appropriate Assessment/Plan All Active Problems (Last Reviewed 01/19/18 @ 16:26 by Aleyda Mendez) Hip fracture (Acute) Noncompliance (Acute) Acute kidney injury (Acute) Fall (Acute) Closed left hip fracture (Acute) 67 year old female with below past medical history hospitalized for left hip fracture, underwent left hip ORIF intramedullary nail fixation per Dr. Yoseph Murillo 01/29/2018, complicated by non-compliant obstructive sleep apnea, hypotension, sedation for narcotic medications, admitted to TCU with debility, here for rehabilitation, strengthening, prior to discharge home. Debility - PT/OT. Pain - Tylenol 1000MG Q8H, Oxycodone 5MG Q4H PRN moderate pain. Bowel - Miralax 17GM daily, Senna/colace 2 tablets BID, Dulcolax 10MG PO daily PRN. Pneumonia vaccination - Administer Prevnar 13 and/or Pneumovax 23 as necessary. DVT prophylaxis - Lovenox 40MG SC daily. COPD - Advair inhaler 1 puff BID, Albuterol 2.5MG Q2H PRN, Ventolin MDI 1 puff Q4H PRN. Atrial Fibrillation - Metoprolol 25MG BID, Flecainide 150MG BID. Allergic Rhinitis - Flonase 1 spray daily, Atrovent 0.25MG TID. Chronic systolic heart failure - Metoprolol 25MG BID, Lisinopril 10MG daily, Lasix 40MG daily. Anxiety - Ativan 0.5MG daily PRN. GERD - Pantoprazole 40MG BID, Mylanta II 30ML Q4H PRN. Restless Legs Syndrome - Ropinirole 1MG TID. Depression - Venlafaxine 75MG BID.
--- NOTE | 2018-02-01 21:37 | HP.PCM_ITS ---
Problem List (1) Fall Status: Acute (2) Closed left hip fracture Status: Acute (3) Back pain Status: Chronic (4) Super obesity Status: Chronic (5) Chronic systolic heart failure Status: Chronic (6) Muscle spasm Status: Chronic (7) GERD (gastroesophageal reflux disease) Status: Chronic (8) ESPERANZA (obstructive sleep apnea) Status: Chronic (9) Anxiety Status: Chronic (10) Depression Status: Chronic (11) Osteoarthritis Status: Chronic (12) Hypertension Status: Chronic (13) Paroxysmal atrial fibrillation Status: Chronic (14) COPD (chronic obstructive pulmonary disease) Status: Chronic Qualifiers: History of Present Illness Date of Admission: 02/01/18 Chief Complaint: Here for rehabilitation, strengthening, prior to discharge home. The patient is a 67 year old Female with below past medical history presented to [facility] Emergency Department 01/28/2018 with fall, left hip pain, unable to walk. 01/28/2018 EKG showed normal sinus rhythm, normal EKG. 01/28/2018 X-ray left femur showed left hip fracture. 01/28/2018 X-ray pelvis showed left hip fracture. Pain medications given, Dr. Yoseph Murillo called. 01/28/2018 Admit to Hospital. Prepare for surger. 01/29/2018 Dr. Murillo performed left hip open reduction internal fixation with intramedullary nail. 01/30/2018 Echo Left ventricular systolic function normal. EF 55% Moderate to severe LVH. 01/31/2018 IV fluid bolus, and continuous for hypotension. Dilaudid, Tizanidine stopped due to sedation. Straight cath UA for low grade fever, UA results equivocal. 02/01/2018 Admit to TCU for rehabilitation, strengthening, prior to discharge home. Past Medical History Past Medical History (Chronic Problems): Chronic Problems (Last Reviewed 01/19/18 @ 16:26 by Aleyda Mendez) ESPERANZA (obstructive sleep apnea) (Chronic) Chronic respiratory failure with hypoxia (Chronic) Anxiety (Chronic) Depression (Chronic) Osteoarthritis (Chronic) Pulmonary nodules (Chronic) Left ventricular hypertrophy (Chronic) Tobacco dependence (Chronic) [id number] smoking history Back pain (Chronic) Super 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) Chronic systolic heart failure (Chronic) Muscle spasm (Chronic) GERD (gastroesophageal reflux disease) (Chronic) Chronic combined systolic and diastolic CHF (congestive heart failure) (Chronic) Non-sustained ventricular tachycardia (Chronic) Dysmetabolic syndrome (Chronic) Hypertension (Chronic) 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) 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) Paroxysmal atrial fibrillation (Chronic) Asthma (Chronic) COPD (chronic obstructive pulmonary disease) (Chronic) Medical History: Medical History (Last Reviewed 01/19/18 @ 16:26 by Aleyda Mendez) Chronic combined systolic and diastolic CHF (congestive heart failure) (Chronic ) I50.42 Non-sustained ventricular tachycardia (Chronic) I47.2 Dysmetabolic syndrome (Chronic) E88.81 Hypertension (Chronic) I10 Paroxysmal atrial fibrillation (Chronic) I48.0 Asthma (Chronic) J45.909 COPD (chronic obstructive pulmonary disease) (Chronic) J44.9 Chronic back pain M54.9, G89.29 Chronic bronchitis J42 GERD (gastroesophageal reflux disease) K21.9 Kidney disease, chronic, stage III (GFR 30-59 ml/min) N18.3 blood clots Allergies ciprofloxacin [From Cipro] Adverse Reaction (Intermediate, Verified 01/28/18 10: 32) Other messes with her heart medicine Home Medications: Ambulatory Orders Medication Instructions Recorded Albuterol Inhaler [Ventolin Hfa] 1 puff INHALATION Q4H PRN PRN 08/08/13 Fluticasone 0.05% [Flonase Nasal 1 spray NASAL DAILY 08/08/13 [place]] Ipratropium [Atrovent Aerosols] 0.25 mg INHALATION TID 08/08/13 Lisinopril [Zestril] 10 mg PO DAILY 08/08/13 Ropinirole HCl [Requip] 1 mg PO TID 02/18/14 flecainide 150 mg tablet 150 mg PO BID 08/16/17 lorazepam 0.5 mg tablet 0.5 mg PO QDAY PRN #10 tab 11/08/17 Furosemide [Lasix] 40 mg PO 0800 01/28/18 Venlafaxine HCl [Venlafaxine HCl 75 mg PO BID 01/28/18 ER] Budesonide/Formoterol 160/4.5 2 inhaler BID 01/30/18 Albuterol Aerosols [Ventolin 2.5 mg INHALATION Q2H PRN PRN 02/01/18 Aerosols] vial.neb. Enoxaparin [Lovenox] 40 mg SC DAILY@0600 02/01/18 Fluticasone/Salmeterol 1 puff INHALATION BID 02/01/18 [Fluticasone-Salmeterol 232-14] Mag Hydrox/Al Hydrox/Simeth 30 ml PO Q6H PRN PRN udc 02/01/18 [Mylanta II] Magnesium Hydroxide [Milk Of 30 ml PO DAILY PRN PRN udc 02/01/18 Magnesia] Metoprolol Tartrate [Lopressor 25 mg PO BID 02/01/18 (beta bairon)] Omeprazole [Prilosec] 40 mg PO BID 02/01/18 Oxycodone [Oxyir] 5 mg PO Q4H PRN PRN #30 tablet 02/01/18 Surgical History: Surgical History (Last Reviewed 01/19/18 @ 16:26 by Aleyda Mendez) H/O hysterectomy with oophorectomy H/O tubal ligation Z98.51 heart cath knee surgery H/O cardiac radiofrequency ablation Onset Date: ~09/03/13 Z98.890 Surgical History: hysterectomy, - - tubal ligation, oophorectomy, knee surgery, status post cardiac radiofrequency ablation, cardiac catheterization, Left hip ORIF intramedullary nail. Psychiatric History: Anxiety, Depression, - - Non-compliance. HEAD COUNSELOR History: No pertinent HEAD COUNSELOR history Lives: Alone Smoking Status: Former smoker - 90 pack year smoking history. Tobacco Use: Non-smoker Alcohol: None Drugs: None - *Family History Maternal Family History: Family History (Last Reviewed 01/19/18 @ 16:26 by Aleyda Mendez) Mother Heart disease Arthritis blood clots Hypertension Father arthrits Cancer Brother Cancer Aunt Breast cancer Depression Ovarian cancer Grandmother CVA (cerebral vascular accident) Aunt Diabetes History Items: Heart Disease, Hypertension, - - Blood clot Paternal Family History: Family History (Last Reviewed 01/19/18 @ 16:26 by Aleyda Mendez) Mother Heart disease Arthritis blood clots Hypertension Father arthrits Cancer Brother Cancer Aunt Breast cancer Depression Ovarian cancer Grandmother CVA (cerebral vascular accident) Aunt Diabetes History Items: Cancer - Lung cancer Review of Systems Constitutional: Denies: Chills, Fever, Weight Change HEENT: Denies: Head Aches, Sinus Congestion, Sinus Drainage Cardiovascular: Denies: Chest Pain, Palpitations Respiratory: Denies: Cough, Shortness of breath at rest, Sputum production Gastrointestinal: Denies: Abdominal Pain, Nausea, Vomiting Genitourinary: Denies: Dysuria Musculoskeletal: Denies: Joint Pain, Joint Tenderness Skin: Denies: Rash, Wounds Neurological: Denies: Numbness, Tingling, Focal weakness Psychiatric: Reports: Anxiety, Depression. Denies: Homicidal Ideations, Suicidal Ideations Hematologic/ Lymphatic: Denies: Easy Bruising, Easy Bleeding VTE Information - Inpt Only VTE Present on Admission: No VTE Mechan Device Prophylaxis: Knee High BEATRICE Hose VTE Pharm Prophylaxis ordered?: Yes Patient Problems: Active and Suspected Problems (Last Reviewed 01/19/18 @ 16:26 by Aleyda Mendez) Fall (Acute) Closed left hip fracture (Acute) - Physical Exam General: Alert, Oriented x3, Cooperative HEENT: Atraumatic, PERRLA, EOMI, Normocephalic Neck: Supple, No JVD, Negative Carotid Bruits Lungs: Clear to auscultation, Normal air movement Cardiovascular: Regular rate, No murmurs Abdomen: Bowel Sounds Present, Soft, Non Tender Extremities: No edema, Capillary Refill Less than 3 Seconds Skin: No rashes, No breakdown Musculoskeletal: No Tenderness to Palpation of Joints or Extremities Neurological: Cranial nerves II-XII grossly intact Psych/Mental Status: Normal Affect, Appropriate Assessment/Plan All Active Problems (Last Reviewed 01/19/18 @ 16:26 by Aleyda Mendez) Hip fracture (Acute) Noncompliance (Acute) Acute kidney injury (Acute) Fall (Acute) Closed left hip fracture (Acute) 67 year old female with below past medical history hospitalized for left hip fracture, underwent left hip ORIF intramedullary nail fixation per Dr. Yoseph Murillo 01/29/2018, complicated by non-compliant obstructive sleep apnea, hypotension, sedation for narcotic medications, admitted to TCU with debility, here for rehabilitation, strengthening, prior to discharge home. * Debility - PT/OT. * Pain - Tylenol 1000MG Q8H, Oxycodone 5MG Q4H PRN moderate pain. * Bowel - Miralax 17GM daily, Senna/colace 2 tablets BID, Dulcolax 10MG PO daily PRN. * Pneumonia vaccination - Administer Prevnar 13 and/or Pneumovax 23 as necessary. * DVT prophylaxis - Lovenox 40MG SC daily. * COPD - Advair inhaler 1 puff BID, Albuterol 2.5MG Q2H PRN, Ventolin MDI 1 puff Q4H PRN. * Atrial Fibrillation - Metoprolol 25MG BID, Flecainide 150MG BID. * Allergic Rhinitis - Flonase 1 spray daily, Atrovent 0.25MG TID. * Chronic systolic heart failure - Metoprolol 25MG BID, Lisinopril 10MG daily, Lasix 40MG daily. * Anxiety - Ativan 0.5MG daily PRN. * GERD - Pantoprazole 40MG BID, Mylanta II 30ML Q4H PRN. * Restless Legs Syndrome - Ropinirole 1MG TID. * Depression - Venlafaxine 75MG BID.
[2018-02-01] MEDS: Albuterol 2.5 MG/3 ML VIAL.NEB. INHALATION (22:27)
[2018-02-01 22:28] VITALS: PULSE 78; RESP 16; O2SAT 96
[2018-02-01] MEDS: oxyCODONE 5 MG Tablet PO (23:15)
[2018-02-01 23:37] VITALS: BP 143/79; PULSE 78
[2018-02-01] MEDS: Acetaminophen 500 MG Tablet 1000 MG PO (23:37)
[2018-02-01] MEDS: Metoprolol Tartrate 25 MG Tablet PO (23:37)
[2018-02-01] MEDS: Pramipexole Di-HCl 0.5 MG Tablet PO (23:37)
[2018-02-01] MEDS: Flecainide 150 MG Tablet PO (23:37)
--- NOTE | 2018-02-02 02:40 | NURSING ---
Pt alarm sounding. Staff promptly to room. Pt was found sitting on the edge of the bed naked holding DSD from Lt hip. O2 was thrown on the floor and pt complaint of being warm. O2 level was checked at 79%. 3L NC was applied and O2 level slowly came back up to low 90's. Pt stated numerous times it was normal for her levels to be that low. Education was provided on O2 levels and the importance of keeping them high and leaving the NC on. Pt was assisted back into bed with oxygen on, PA in place and call light in reach.
[2018-02-02] MEDS: oxyCODONE 5 MG Tablet PO ×3 (03:22→22:02)
[2018-02-02 06:07] LABS: Absolute Lymphocyte Count 0.94 X10^3/ul (0.83-4.51); Absolute Neutrophil Count 9.4 X10^3/uL (2.0-7.7); Basophil# 0.04 X10^3/uL; Basophil% 0.3 % (0-1); Eosinophil# 0.24 X10^3/uL; Eosinophils% 2.1 % (0-5); Hematocrit 33.7 % (37-47); Hemoglobin 9.9 g/dl (12.0-15.0); Lymphocyte # 0.94 X10^3/ul (4.0); Mean Corp Hgb Conc 29.4 g/gl (32-36); Mean Corpuscular Volume 95.2 fL (81-99); Mean Platelet Vol. 9.5 fl (6.2-12.0); Monocyte# 1.03 X10^3/uL; Monocyte% 8.8 % (0-10); Neutrophil # 9.41 X10^3/uL (2.7-7.7); Neutrophil % 80.5 % (47-70); Platelet Count 318 K/mm3 (150-450); RBC Distribution Width CV 15.5 % (11.6-14.6); RBC Distribution Width SD 53.8 fl (35.1-43.9); Red Blood Count 3.54 M/mm3 (4.2-5.4); White Blood Count 11.7 K/mm3 (4.4-11.0)
[2018-02-02 06:24] LABS: Anion Gap 8 (5-15); BUN 25 mg/dL (7-18); BUN/Creat Ratio 23.4 RATIO (10-20); Calcium,Total 8.3 mg/dL (8.5-10.1); Chloride 105 mmol/L (98-107); Creatinine, Serum 1.07 mg/dL (0.55-1.02); EST Glomerular Filtration Rate 54 mL/min (>60); Est Glom Filt Rate - Afr Amer 66 mL/min (>60); Estimated Creatinine Clearance 45.91 ml/min; Glucose 104 mg/dL (74-106); Sodium Level 140 mmol/L (136-145)
[2018-02-02 06:25] VITALS: BP 127/59; PULSE 73
[2018-02-02] MEDS: Lisinopril 10 MG Tablet PO (06:25)
[2018-02-02] MEDS: Venlafaxine XR 75 MG Capsule PO ×2 (06:25→17:15)
[2018-02-02 06:26] VITALS: BP 127/59; PULSE 73
[2018-02-02] MEDS: Metoprolol Tartrate 25 MG Tablet PO ×2 (06:26→17:14)
[2018-02-02] MEDS: Acetaminophen 500 MG Tablet 1000 MG PO ×3 (06:26→22:02)
[2018-02-02] MEDS: Pantoprazole Sodium 40 MG Tablet PO ×2 (06:26→17:14)
[2018-02-02] MEDS: Pramipexole Di-HCl 0.5 MG Tablet PO ×3 (06:27→23:08)
[2018-02-02] MEDS: Flecainide 150 MG Tablet PO ×2 (06:28→17:56)
[2018-02-02] MEDS: Enoxaparin 40 MG/0.4 ML Syringe SC (06:31)
[2018-02-02] MEDS: Fluticasone/Salmeterol 232-14 Inhaler 1 PUFF IH ×2 (06:32→17:17)
[2018-02-02 06:34] LABS: POSITIVE COUNT NO; POSITIVE DIFFERENTIAL NO; POSITIVE MORPHOLOGY NO
[2018-02-02] MEDS: Fluticasone 0.05% 1 SPRAY NASAL.SRY NASAL (08:51)
[2018-02-02] MEDS: Furosemide 40 MG Tablet PO (08:51)
--- NOTE | 2018-02-02 10:03 | NURSING ---
Patient having severe pain with any movement and anxiety routine tylenol and 5mg oxyir ineffective. Patient also had episode during therapy after standing where she became diaphoretic, weak, and lethargic. BP 136/84. oxygen 96%, temp 98.5, orthostatics negative. Dr. Callejas updated, order to increase ativan to [id number] PRN and increase oxyir to 10mg PO [id number] prn. Will continue to monitor.
[2018-02-02] MEDS: Iron Polysaccharide Complex 150 MG CAPSULE PO (10:24)
--- NOTE | 2018-02-02 10:53 | NURSING ---
FISHER REEF NET reported to this nurse that patient having excessive amounts of serosanguinous drainage from left hip incision and increased pain. Margarita at Dr. Murillo's office made aware, states she will update Dr. Murillo and call us back with any changes.
[2018-02-02] MEDS: oxyCODONE 5 MG Tablet 10 MG PO (12:04)
[2018-02-02] MEDS: Tuberculin,Purif.prot.deriv. 50 TU/ML Vial 5 ML ID (12:09)
--- NOTE | 2018-02-02 13:04 | NURSING ---
Patient has rhonchi in BL lower lobes, Dr. Callejas made aware, NO for CXR.
--- NOTE | 2018-02-02 14:10 | RAD_ITS ---
STUDY: X-RAY CHEST REASON FOR EXAM: Female, 67 years old. Cough. TECHNIQUE: Upright AP and lateral views of the chest. The patient is mildly rotated to the left on the frontal image. COMPARISON: AP upright portable chest x-ray January 31, 2018. FINDINGS: The lungs are more fully expanded today, and there is improved aeration at the lung bases. No new infiltrate. There is no demonstrated pleural abnormality. The heart size is upper normal. Normal mediastinum and leonid. Normal visualized pulmonary arteries. There is minor atherosclerotic calcification of the aortic arch . There are degenerative changes of the visualized lower thoracic spine. Normal visualized ribs, clavicles, and shoulders. Retrocardiac soft tissue density is consistent with hiatal hernia, grossly unchanged. RAD/Chest PA and Lateral IMPRESSION: 1. Improved aeration at the lung bases. 2. Heart size upper normal. No CHF. 3. Stable moderate-sized hiatal hernia. Electronically Signed: Eric Damon MD at 17:58 EDT , Service support ,
[2018-02-02 15:39] VITALS: BP 135/66; PULSE 73; RESP 20; TEMP 37; O2SAT 94
[2018-02-02 16:17] VITALS: O2SAT 98
--- NOTE | 2018-02-02 16:22 | NURSING ---
CPS wanting to clarify Atrovent Inhalation order. Was given Duonebs on acute side. Dr morales aware and changed order to Duonebs Q 6HWA.
[2018-02-02 17:14] VITALS: BP 135/66; PULSE 73
[2018-02-02] MEDS: Senna/Docusate Sodium 1 Tablet 2 TABLET PO (17:14)
[2018-02-02] MEDS: LORazepam 0.5 MG Tablet PO (17:55)
--- NOTE | 2018-02-02 18:51 | NURSING ---
Addendum entered by Emilee Jerez 02/02/18 20:43: Dr. Callejas aware. NNO. Original Note: Dr Callejas aware of xray results.
--- NOTE | 2018-02-02 20:37 | NURSING ---
Dr. Callejas updated on increased drowsiness. Pt A&Ox3 but complaints of being tired. Dr. Callejas updated new order to decrease Ativan and oxyir and continue to monitor.
[2018-02-02 20:40] VITALS: PULSE 66; RESP 20; O2SAT 94
--- NOTE | 2018-02-02 21:32 | NURSING ---
This RN in to speak with pt regarding pain meds. Oxyir decreased from 10mg to 5mg this evening. Explained to pt reasoning is due to her being very drowsy. This RN reminded pt that her titus Tylenol is due at 22:00 and I will be back at that time to administer then. Pt upset, but agreeable. Emotional support given. Kale at bedside, call light in reach.
[2018-02-03] VITALS (8 sets, daily range): BP systolic 104–124; BP diastolic 64–76; PULSE 70–82; RESP 16–18; TEMP 36; O2SAT 92–98
[2018-02-03] MEDS: LORazepam 0.5 MG Tablet 0.25 MG PO (01:30)
[2018-02-03] MEDS: Ipratropium/Albuterol Sulfate 3 ML AMPUL.NEB INHALATION ×4 (02:15→19:00)
[2018-02-03] MEDS: Polyethylene Glycol 3350 17 GM PACKET PO (06:26)
[2018-02-03] MEDS: Pramipexole Di-HCl 0.5 MG Tablet PO ×3 (06:26→22:12)
[2018-02-03] MEDS: Venlafaxine XR 75 MG Capsule PO ×2 (06:26→17:45)
[2018-02-03] MEDS: Fluticasone 0.05% 1 SPRAY NASAL.SRY NASAL (06:26)
[2018-02-03] MEDS: Enoxaparin 40 MG/0.4 ML Syringe SC (06:26)
[2018-02-03] MEDS: Fluticasone/Salmeterol 232-14 Inhaler 1 PUFF IH ×2 (06:26→17:45)
[2018-02-03] MEDS: Flecainide 150 MG Tablet PO ×2 (06:27→17:44)
[2018-02-03] MEDS: Pantoprazole Sodium 40 MG Tablet PO ×2 (06:27→17:45)
[2018-02-03] MEDS: Acetaminophen 500 MG Tablet 1000 MG PO ×3 (06:27→22:13)
[2018-02-03] MEDS: Lisinopril 10 MG Tablet PO (06:27)
[2018-02-03] MEDS: Metoprolol Tartrate 25 MG Tablet PO ×2 (06:28→17:45)
[2018-02-03] MEDS: oxyCODONE 5 MG Tablet PO ×4 (06:36→22:16)
[2018-02-03] MEDS: Furosemide 40 MG Tablet PO (08:11)
[2018-02-03] MEDS: Iron Polysaccharide Complex 150 MG CAPSULE PO (08:26)
--- NOTE | 2018-02-03 12:07 | NURSING ---
THIS NURSE HEARD A PT YELLING AND SOME POUNDING. WENT TO ROOM AND FOUND PT ON EDGE OF RECLINER SLAMMING FIST ON BED SIDE TABLE, O2 TUBING AROUND HER NECK X3 OXYGEN OUT OF NOSE. PT YELLING AND CRYING SHE WANTED TO GET BACK IN BED AND HAD BEEN WAITING AWHILE. ASKED PT IF SHE KNEW HOW TO OPERATE THE CALL SALGADO,PT SAID YES BUT ITS ON THE FLOOR. FOUND CALL SALGADO IN BETWEEN RECLINER AND NIGHT STAND. PT STARTED YELLING ABOUT HOW SOMEONE JUST LEFT HER THERE AND STATED THIS IS CRUEL AND MEAN TO BE LEFT LIKE THIS. EXPLAINED TO PT THERAPY WANTED HER UP IN THE RECLINER FOR A WHILE AND THAT IT WAS NOT GOOD TO STAY IN BED,REASONS GIVEN. PT YELLING, STATED SHE WAS NOT TOLD ANY THING ABOUT THAT AND IT WAS MEAN TO JUST LEAVE SOME ONE WITHOUT TELLING HER AND THAT SHE PEED HER SELF WHILE SITTING THERE. CALLED FOR AID TO HELP GET PT BACK IN BED AND CLEAN HER UP. TALKED TO PT THE HOLE TIME AND EXPLAINED EVERY THING WE WERE DOING AND GOING TO DO. REASSURED PT WE ARE HEAR TO HELP HER IN ANY WAY WE CAN. PT STARTED TO CALM DOWN AND GAVE ALITTLE SMILE. PT SET UP FOR LUNCH,PAIN MED GIVEN, CALL SALGADO IN REACH. REPORTED TO DARLING SOSA
[2018-02-03] MEDS: Nystatin Powder 15gm Bottle 1 APPLIC TOPICAL ×2 (13:43→22:12)
--- NOTE | 2018-02-03 15:47 | CHAPLAIN ---
Type of Pastoral Visit _x__ Initial Visit ___ Follow-up Visit ___ On-call Visit ___ General Patient Visit ___ Spiritual Assessment ___ Family Conference ___ Bereavement ___ Rapid Response ___ Code Blue ___ Other (describe below) Pastoral Care Referral From _x__ Patient ___ Family ___ Nurse ___ Physician ___ Pit Clerk ___ Customer Service Coordinator ___ Other (describe below) Sacrament/Intervention _x__ Active listening ___ Anointing ___ Hoahaoism ___ Bereavement ___ Communion ___ Diane exploration ___ _x__ Life review _x__ Prayer ___ Reconciliation ___ Sacrament of Sick _x__ Supportive presence ___ Wedding ___ Other (describe below) Pastoral Comments patient speaks of deep disappointment for having fall and broken hip; pt admits that she needs to do a better job of caring for herself; pt says that she loves her family very much and wants to take care of some things now for my family; pt welcomes future visits; pt welcomed prayer
[2018-02-03] MEDS: Senna/Docusate Sodium 1 Tablet 2 TABLET PO (17:44)
[2018-02-04] VITALS (7 sets, daily range): BP systolic 125–148; BP diastolic 74–75; PULSE 60–84; RESP 18; TEMP 35.1; O2SAT 91–94
[2018-02-04] MEDS: Fluticasone 0.05% 1 SPRAY NASAL.SRY NASAL (05:29)
[2018-02-04] MEDS: Venlafaxine XR 75 MG Capsule PO ×2 (05:29→17:10)
[2018-02-04] MEDS: Fluticasone/Salmeterol 232-14 Inhaler 1 PUFF IH ×2 (05:30→17:12)
[2018-02-04] MEDS: Enoxaparin 40 MG/0.4 ML Syringe SC (05:30)
[2018-02-04] MEDS: Polyethylene Glycol 3350 17 GM PACKET PO (05:31)
[2018-02-04] MEDS: Senna/Docusate Sodium 1 Tablet 2 TABLET PO ×2 (05:32→17:09)
[2018-02-04] MEDS: Pantoprazole Sodium 40 MG Tablet PO ×2 (05:32→17:10)
[2018-02-04] MEDS: Lisinopril 10 MG Tablet PO (05:32)
[2018-02-04] MEDS: Metoprolol Tartrate 25 MG Tablet PO ×2 (05:32→17:10)
[2018-02-04] MEDS: Pramipexole Di-HCl 0.5 MG Tablet PO ×3 (05:32→21:37)
[2018-02-04] MEDS: Acetaminophen 500 MG Tablet 1000 MG PO ×3 (05:32→21:37)
[2018-02-04] MEDS: Nystatin Powder 15gm Bottle 1 APPLIC TOPICAL ×3 (05:32→21:37)
[2018-02-04] MEDS: Flecainide 150 MG Tablet PO ×2 (05:32→17:10)
[2018-02-04] MEDS: oxyCODONE 5 MG Tablet PO ×3 (05:35→18:59)
[2018-02-04] MEDS: Ipratropium/Albuterol Sulfate 3 ML AMPUL.NEB INHALATION ×3 (07:13→18:33)
[2018-02-04] MEDS: Furosemide 40 MG Tablet PO (08:22)
[2018-02-04] MEDS: Iron Polysaccharide Complex 150 MG CAPSULE PO (08:23)
[2018-02-04] MEDS: LORazepam 0.5 MG Tablet 0.25 MG PO (12:03)
--- NOTE | 2018-02-04 12:50 | RAD_ITS ---
STUDY: X-RAY - PELVIS AND LEFT HIP REASON FOR EXAM: Female, 67 years old. Left hip pain. Status post ORIF of left hip. Follow-up. TECHNIQUE: Radiological exam, hip, unilateral, with pelvis when performed; 2 or 3 views. COMPARISON: January 29, 2018 FINDINGS: There is a non-specific bowel gas pattern. Normal visualized soft tissue structures. There is generalized osteopenia. Normal bilateral iliac wings, sacroiliac joints and visualized sacrum. Normal bilateral superior and inferior pubic rami. Normal pubic symphysis. Normal bilateral ischial tuberosities. There is a stable dynamic hip screw in the proximal left femur with no complications noted at this time. The intertrochanteric fracture is in anatomic alignment with minimal sclerosis. RAD/Hip 2-3 Views with Pelvis IMPRESSION: Stable osteopenia with dynamic hip screw in the left proximal femur. No complications noted. Electronically Signed: Celio Rutledge MD at 17:46 EDT , Service support ,
--- NOTE | 2018-02-04 13:21 | NURSING ---
pt c/o increased pain to lt hip, oxyir not holding her. Joel lr MC KAY MACHINE OPERATOR notified, new order for lt hip xray and increase pain med to 5-10mg Oxyir q6prn. pt updated on all.
--- NOTE | 2018-02-04 13:53 | NURSING ---
Pt complaining of feeling as if her hip is out of socket and pain 10/10. This nurse gave medication for pain and something to help with Pt anxiety. Wound dressing also changed at this time. moderate amount of serosanguinous drainage noted to gauze and ABD pad. Will continue to monitor. Lucia HASTINGS updated.
[2018-02-05] MEDS: Polyethylene Glycol 3350 17 GM PACKET PO (06:14)
[2018-02-05] MEDS: Flecainide 150 MG Tablet PO ×2 (06:14→18:16)
[2018-02-05] MEDS: Senna/Docusate Sodium 1 Tablet 2 TABLET PO ×2 (06:14→18:16)
[2018-02-05] MEDS: Fluticasone/Salmeterol 232-14 Inhaler 1 PUFF IH ×2 (06:14→18:17)
[2018-02-05] MEDS: Acetaminophen 500 MG Tablet 1000 MG PO ×3 (06:14→21:20)
[2018-02-05] MEDS: Fluticasone 0.05% 1 SPRAY NASAL.SRY NASAL (06:14)
[2018-02-05 06:15] VITALS: BP 154/69; PULSE 81
[2018-02-05] MEDS: Venlafaxine XR 75 MG Capsule PO ×2 (06:15→18:17)
[2018-02-05] MEDS: Pantoprazole Sodium 40 MG Tablet PO ×2 (06:15→18:16)
[2018-02-05] MEDS: Pramipexole Di-HCl 0.5 MG Tablet PO ×3 (06:15→21:21)
[2018-02-05] MEDS: Enoxaparin 40 MG/0.4 ML Syringe SC (06:15)
[2018-02-05] MEDS: Metoprolol Tartrate 25 MG Tablet PO ×2 (06:15→18:17)
[2018-02-05] MEDS: Lisinopril 10 MG Tablet PO (06:15)
[2018-02-05] MEDS: Nystatin Powder 15gm Bottle 1 APPLIC TOPICAL ×2 (06:15→21:21)
[2018-02-05] MEDS: Bisacodyl 5 MG Tablet 10 MG PO (06:20)
[2018-02-05] MEDS: oxyCODONE 5 MG Tablet PO ×3 (06:20→21:21)
[2018-02-05 07:14] VITALS: PULSE 71; RESP 18; O2SAT 90
[2018-02-05] MEDS: Ipratropium/Albuterol Sulfate 3 ML AMPUL.NEB INHALATION ×3 (07:14→19:30)
[2018-02-05] MEDS: Furosemide 40 MG Tablet PO (08:07)
[2018-02-05] MEDS: Iron Polysaccharide Complex 150 MG CAPSULE PO (08:07)
--- NOTE | 2018-02-05 11:02 | NURSING ---
pt requesting for ativan to be increased, Joel, BACK STAYER notified, no new orders, keep PRN as ordered.
[2018-02-05] MEDS: LORazepam 0.5 MG Tablet 0.25 MG PO (11:03)
[2018-02-05 13:30] VITALS: PULSE 70; RESP 18
--- NOTE | 2018-02-05 13:45 | NURSING ---
Patient had told me that she had been on the bedpan for a long time. I had answered the patients light as soon as it rang. She said that she had been on it way to long and that she had had her light on forever. This was not true.
--- NOTE | 2018-02-05 14:21 | NURSING ---
Pt very upset complaining out care, stating she would like to speak to sort manager on Tuesday. Pt claiming she was left on bed price for over 45 minutes and no one would help her after putting on her call light multiple times. This nurse tried reasoning with Pt and offered apologies for pt feeling that staff does not care about her well being. Lucia HASTINGS aware.
[2018-02-05 16:00] VITALS: BP 123/72; PULSE 75; RESP 18; TEMP 35.7; O2SAT 90
[2018-02-05 18:17] VITALS: PULSE 85
[2018-02-05 19:30] VITALS: PULSE 72; RESP 18
--- NOTE | 2018-02-09 15:19 | MDS.RN ---
Pain interview for HUGH 02/08/18 completed on 02/08/18
--- NOTE | 2018-02-10 00:49 | PHA.CONS_ITS ---
<Denny Goodman D - Last Filed: 02/10/18 00:40> Progress Note - Pharmacy Subjective: TCU Admission Objective: Allergies ciprofloxacin [From Cipro] Adverse Reaction (Intermediate, Verified 01/28/18 10: 32) Other messes with her heart medicine Current Medications Generic Name Dose Route Start Last Admin Trade Name Freq PRN Reason Stop Dose Admin Acetaminophen 1,000 mg 02/01/18 22:00 02/05/18 21:20 Tylenol PO 1,000 mg Q8 KIM Administration Al Hydroxide/Mg Hydroxide 30 ml 02/01/18 21:17 Mylanta Ii PO Q6H PRN PRN Gastric burning Albuterol Sulfate 2.5 mg 02/01/18 21:17 02/01/18 22:27 Ventolin Aerosols INHALATION 2.5 mg Q2H PRN PRN Administration dyspnea, wheezing Albuterol/Ipratropium 3 ml 02/02/18 16:30 02/05/18 19:30 Duoneb INHALATION 3 ml Q6HWA.RT KIM Administration Bisacodyl 10 mg 02/01/18 21:50 02/05/18 06:20 Dulcolax PO 10 mg DAILY PRN Administration Constipation Enoxaparin Sodium 40 mg 02/02/18 06:00 02/05/18 06:15 Lovenox SC 40 mg DAILY@0600 KIM Administration Flecainide Acetate 150 mg 02/01/18 21:45 02/05/18 18:16 Tambocor PO 150 mg BID KIM Administration Fluticasone Propionate 1 spray 02/02/18 06:00 02/05/18 06:14 Flonase Nasal [place] NASAL 1 spray DAILY KIM Administration Furosemide 40 mg 02/02/18 08:00 02/05/18 08:07 Lasix PO 40 mg 0800 KIM Administration Guaifenesin 1,200 mg 02/09/18 18:00 Mucinex PO BID KIM Lisinopril 10 mg 02/02/18 06:00 02/05/18 06:15 Zestril PO 10 mg DAILY KIM Administration Lorazepam 0.25 mg 02/02/18 20:36 02/05/18 11:03 Ativan PO 0.25 mg Q6H PRN PRN Administration dyspnea Metoprolol Tartrate 25 mg 02/01/18 22:00 02/05/18 18:17 Lopressor (Beta Katerine) PO 25 mg BID KIM Administration Nystatin 1 applic 02/03/18 14:00 02/05/18 21:21 Mycostatin Powder TOPICAL 1 applicatio TID KIM Administration Protocol Oxycodone HCl 5 - 10 mg 02/04/18 12:51 02/05/18 21:21 Oxyir PO 10 mg Q6H PRN PRN Administration Moderate Pain (pain scale 4-5) Pantoprazole Sodium 40 mg 02/02/18 06:00 02/05/18 18:16 Protonix PO 40 mg BID KIM Administration Polyethylene Glycol 17 gm 02/02/18 06:00 02/05/18 06:14 Miralax PO 17 gm DAILY KIM Administration Polysaccharide Iron Complex 150 mg 02/02/18 08:00 02/05/18 08:07 Ferrex 150 PO 150 mg DAILYCM KIM Administration Pramipexole Dihydrochloride 0.5 mg 02/01/18 22:00 02/05/18 21:21 Mirapex PO 0.5 mg TID KIM Administration Fluticasone/Salmeterol 1 puff 02/02/18 06:00 02/05/18 18:17 Fluticasone-Salmeterol 232-14 IH 1 puff BID KIM Administration Senna/Docusate Sodium 2 tablet 02/02/18 06:00 02/05/18 18:16 Senokot-S, Yamilex-Colace PO 2 tablet BID KIM Administration Venlafaxine HCl 75 mg 02/02/18 06:00 02/05/18 18:17 Effexor Xr PO 75 mg BID KIM Administration Problem List (Last Reviewed 01/19/18 @ 16:26 by Aleyda Mendez) Fall (Acute) Closed left hip fracture (Acute) Back pain (Chronic) Super 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) Chronic systolic heart failure (Chronic) Muscle spasm (Chronic) GERD (gastroesophageal reflux disease) (Chronic) Vital Signs Temp Pulse Resp BP Pulse Ox 96.3 F L 72 18 123/72 H 90 02/05/18 16:00 02/05/18 19:30 02/05/18 19:30 02/05/18 16:00 02/05/18 16:00 Oxygen Flow Rate (L/min) 3 Oxygen Delivery Method Nasal Cannula Weight: 124.8 kg Body Mass Index (BMI) 45.9 Sodium 140 mmol/L (136-145) 05/31/18 05:10 Potassium 5.0 mmol/L (3.5-5.1) 02/02/18 05:10 Chloride 105 mmol/L (98-107) 02/02/18 05:10 Carbon Dioxide 27.0 mmol/L (21.0-32.0) 02/02/18 05:10 Anion Gap 8 (5-15) 02/02/18 05:10 BUN 25 mg/dL (7-18) H 02/02/18 05:10 Creatinine 1.07 mg/dL (0.55-1.02) H 02/02/18 05:10 Est GFR (MDRD) Af Amer 66 mL/min (>60) 02/02/18 05:10 Est GFR (MDRD) Non-Af 54 mL/min (>60) L 02/02/18 05:10 BUN/Creatinine Ratio 23.4 RATIO (10-20) H 02/02/18 05:10 Glucose 104 mg/dL (74-106) 02/02/18 05:10 Assessment/Plan: 1) Pain APAP scheduled, oxycodone prn. Continue to monitor daily pain scores, prn medication use. * 2) Pulm Albuterol prn, F/S inhaler, fluticasone nasal spray, Duoneb aerosols scheduled, guaifenesin, lorazepam prn. Recommend to change Duoneb aerosols to tiotropium inhaler for duplication of therapy. 3) AFib/CHF Flecainide, metoprolol, lisinopril, furosemide. Continue to monitor BP/HR, renal function, electrolytes. 4) Restless Legs Pramipexole 3x daily. Continue to monitor for RLS. 5) GI Pantoprazole twice daily, Maalox as needed. Continue to monitor s/s GI distress. 6) Derm Nystatin topically. Continue to monitor clinically. 7) DVT PPx Enoxaparin daily. Continue to monitor s/s bleeding/clot. Psychotropic Medications: 8) Depression Venlafaxine twice daily. Continue to monitor s/s depression. Unnecessary Medications: None Bowel Regimen: 9) Senna/s, PEG, prn bisacodyl. Continue to monitor prn medication use, for constipation/diarrhea. Date of Note:: 02/10/18 - Provider Comments Provider responsibility: Provider responsible to enter orders to implement recommendations <JúniorDarinel Zuluaga - Last Filed: 02/13/18 18:11> Progress Note - Pharmacy Subjective: [] Objective: Allergies ciprofloxacin [From Cipro] Adverse Reaction (Intermediate, Verified 01/28/18 10: 32) Other messes with her heart medicine Current Medications Generic Name Dose Route Start Last Admin Trade Name Freq PRN Reason Stop Dose Admin Acetaminophen 1,000 mg 02/01/18 22:00 02/13/18 14:33 Tylenol PO 1,000 mg Q8 KIM Administration Al Hydroxide/Mg Hydroxide 30 ml 02/01/18 21:17 Mylanta Ii PO Q6H PRN PRN Gastric burning Albuterol Sulfate 2.5 mg 02/01/18 21:17 02/01/18 22:27 Ventolin Aerosols INHALATION 2.5 mg Q2H PRN PRN Administration dyspnea, wheezing Albuterol/Ipratropium 3 ml 02/02/18 16:30 02/05/18 19:30 Duoneb INHALATION 3 ml Q6HWA.RT KIM Administration Bisacodyl 10 mg 02/01/18 21:50 02/05/18 06:20 Dulcolax PO 10 mg DAILY PRN Administration Constipation Cephalexin 500 mg 02/11/18 08:30 02/13/18 06:00 Keflex PO 02/20/18 18:01 500 mg BID KIM Administration Doxycycline Monohydrate 100 mg 02/11/18 08:30 02/13/18 06:00 Doxycycline PO 02/20/18 18:01 100 mg BID KIM Administration Enoxaparin Sodium 40 mg 02/02/18 06:00 02/13/18 06:00 Lovenox SC 40 mg DAILY@0600 KIM Administration Flecainide Acetate 150 mg 02/01/18 21:45 02/13/18 06:00 Tambocor PO 150 mg BID KIM Administration Fluticasone Propionate 1 spray 02/02/18 06:00 02/13/18 06:00 Flonase Nasal [place] NASAL 1 spray DAILY KIM Administration Furosemide 40 mg 02/02/18 08:00 02/13/18 08:02 Lasix PO 40 mg 0800 KIM Administration Guaifenesin 1,200 mg 02/09/18 18:00 02/13/18 06:00 Mucinex PO 1,200 mg BID KIM Administration Lisinopril 10 mg 02/02/18 06:00 02/13/18 06:00 Zestril PO 10 mg DAILY KIM Administration Lorazepam 0.5 mg 02/12/18 23:04 02/13/18 10:30 Ativan PO 0.5 mg Q4H PRN PRN Administration Metoprolol Tartrate 25 mg 02/01/18 22:00 02/13/18 06:00 Lopressor (Beta Katerine) PO 25 mg BID KIM Administration Nystatin 1 applic 02/03/18 14:00 02/13/18 15:01 Mycostatin Powder TOPICAL 1 applicatio TID KIM Administration Protocol Ondansetron HCl 4 mg 02/12/18 08:37 Zofran Odt PO Q6H PRN PRN NAUSEA Oxycodone HCl 5 - 10 mg 02/04/18 12:51 02/13/18 18:08 Oxyir PO 5 mg Q6H PRN PRN Administration Moderate Pain (pain scale 4-5) Pantoprazole Sodium 40 mg 02/02/18 06:00 02/13/18 06:00 Protonix PO 40 mg BID KIM Administration Polyethylene Glycol 17 gm 02/02/18 06:00 02/13/18 06:00 Miralax PO 17 gm DAILY KIM Administration Polysaccharide Iron Complex 150 mg 02/02/18 08:00 02/13/18 08:00 Ferrex 150 PO 150 mg DAILYCM KIM Administration Pramipexole Dihydrochloride 0.5 mg 02/01/18 22:00 02/13/18 15:00 Mirapex PO 0.5 mg TID KIM Administration Fluticasone/Salmeterol 1 puff 02/02/18 06:00 02/13/18 06:00 Fluticasone-Salmeterol 232-14 IH 1 puff BID KIM Administration Senna/Docusate Sodium 2 tablet 02/02/18 06:00 02/13/18 06:00 Senokot-S, Yamilex-Colace PO 2 tablet BID KIM Administration Venlafaxine HCl 75 mg 02/02/18 06:00 02/13/18 06:00 Effexor Xr PO 75 mg BID KIM Administration Problem List (Last Reviewed 01/19/18 @ 16:26 by Aleyda Mendez) Fall (Acute) Closed left hip fracture (Acute) Back pain (Chronic) Super 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) Chronic systolic heart failure (Chronic) Muscle spasm (Chronic) GERD (gastroesophageal reflux disease) (Chronic) Vital Signs Temp Pulse Resp BP Pulse Ox 98.2 F 78 18 126/62 H 94 02/13/18 09:00 02/13/18 09:00 02/13/18 10:00 02/13/18 09:00 02/13/18 09:00 Oxygen Flow Rate (L/min) 4 Oxygen Delivery Method Nasal Cannula Weight: 124.8 kg Body Mass Index (BMI) 45.9 Sodium 140 mmol/L (136-145) 02/02/18 05:10 Potassium 5.0 mmol/L (3.5-5.1) 02/02/18 05:10 Chloride 105 mmol/L (98-107) 02/02/18 05:10 Carbon Dioxide 27.0 mmol/L (21.0-32.0) 02/02/18 05:10 Anion Gap 8 (5-15) 02/02/18 05:10 BUN 25 mg/dL (7-18) H 02/02/18 05:10 Creatinine 1.07 mg/dL (0.55-1.02) H 02/02/18 05:10 Est GFR (MDRD) Af Amer 66 mL/min (>60) 02/02/18 05:10 Est GFR (MDRD) Non-Af 54 mL/min (>60) L 02/02/18 05:10 BUN/Creatinine Ratio 23.4 RATIO (10-20) H 02/02/18 05:10 Glucose 104 mg/dL (74-106) 02/02/18 05:10 Assessment/Plan: Psychotropic Medications: Unnecessary Medications: Bowel Regimen: - Provider Comments Provider responsibility: Provider responsible to enter orders to implement recommendations Provider Comments to Recommendations by Pharmacy: Agree
[2018-02-13] MEDS: oxyCODONE 5 MG Tablet PO ×3 (05:15→18:08)
[2018-02-13 06:00] VITALS: BP 125/79; PULSE 65
[2018-02-13] MEDS: guaiFENesin 1,200 MG Tablet 1200 MG PO ×2 (06:00→18:58)
[2018-02-13] MEDS: Cephalexin 500 MG Capsule PO ×2 (06:00→19:00)
[2018-02-13] MEDS: Venlafaxine XR 75 MG Capsule PO ×2 (06:00→18:59)
[2018-02-13] MEDS: Metoprolol Tartrate 25 MG Tablet PO ×2 (06:00→18:59)
[2018-02-13] MEDS: Polyethylene Glycol 3350 17 GM PACKET PO (06:00)
[2018-02-13] MEDS: Enoxaparin 40 MG/0.4 ML Syringe SC (06:00)
[2018-02-13] MEDS: Pantoprazole Sodium 40 MG Tablet PO ×2 (06:00→19:01)
[2018-02-13] MEDS: Fluticasone 0.05% 1 SPRAY NASAL.SRY NASAL (06:00)
[2018-02-13] MEDS: Nystatin Powder 15gm Bottle 1 APPLIC TOPICAL ×3 (06:00→21:44)
[2018-02-13] MEDS: Pramipexole Di-HCl 0.5 MG Tablet PO ×3 (06:00→21:44)
[2018-02-13] MEDS: Flecainide 150 MG Tablet PO ×2 (06:00→19:02)
[2018-02-13] MEDS: Lisinopril 10 MG Tablet PO (06:00)
[2018-02-13] MEDS: Fluticasone/Salmeterol 232-14 Inhaler 1 PUFF IH ×2 (06:00→18:59)
[2018-02-13] MEDS: Senna/Docusate Sodium 1 Tablet 2 TABLET PO ×2 (06:00→19:02)
[2018-02-13] MEDS: Acetaminophen 500 MG Tablet 1000 MG PO ×3 (06:00→21:44)
[2018-02-13] MEDS: Doxycycline 100 MG CAPSULE PO ×2 (06:00→19:00)
[2018-02-13] MEDS: Iron Polysaccharide Complex 150 MG CAPSULE PO (08:00)
[2018-02-13] MEDS: Furosemide 40 MG Tablet PO (08:02)
[2018-02-13 09:00] VITALS: BP 126/62; PULSE 78; RESP 18; TEMP 36.8; O2SAT 94
[2018-02-13 10:00] VITALS: RESP 18
[2018-02-13] MEDS: LORazepam 0.5 MG Tablet PO ×2 (10:30→18:58)
--- NOTE | 2018-02-13 15:24 | CHAPLAIN ---
Type of Pastoral Visit ___ Initial Visit _x__ Follow-up Visit ___ On-call Visit ___ General Patient Visit ___ Spiritual Assessment ___ Family Conference ___ Bereavement ___ Rapid Response ___ Code Blue ___ Other (describe below) Pastoral Care Referral From ___ Patient ___ Family _x__ Nurse ___ Physician ___ Storekeeper Engineering ___ Administrative Staff Supervisor ___ Other (describe below) Sacrament/Intervention _x__ Active listening ___ Anointing ___ Restorationism ___ Bereavement ___ Communion ___ Diane exploration ___ ___ Life review ___ Prayer ___ Reconciliation ___ Sacrament of Sick _x__ Supportive presence ___ Wedding ___ Other (describe below) Pastoral Comments RN suggests visits due to patient being discouraged;
--- NOTE | 2018-02-13 16:24 | CASEMGMT ---
Insurance Continued stay approved with next update due on 02/20/18. Auth#[id number] Teresa DUARTE, SAMPLE DISPLAY PREPARER
[2018-02-13 17:55] LABS: Hematocrit 35.4 % (37-47); Hemoglobin 10.5 g/dl (12.0-15.0); Mean Corpuscular Volume 95.9 fL (81-99); White Blood Count 9.5 K/mm3 (4.4-11.0)
[2018-02-13 17:56] LABS: Absolute Neutrophil Count 6.7 X10^3/uL (2.0-7.7); Basophil# 0.03 X10^3/uL; Basophil% 0.3 % (0-1); Eosinophil# 0.27 X10^3/uL; Eosinophils% 2.8 % (0-5); Lymphocyte % 16.9 % (19-41); Mean Corp Hgb Conc 29.7 g/gl (32-36); Mean Corpuscular Hgb 28.5 pg (27.0-32.0); Mean Platelet Vol. 9.8 fl (6.2-12.0); Monocyte# 0.83 X10^3/uL; Monocyte% 8.7 % (0-10); Neutrophil # 6.73 X10^3/uL (2.7-7.7); POSITIVE COUNT NO; POSITIVE DIFFERENTIAL NO; POSITIVE MORPHOLOGY NO; Platelet Count 428 K/mm3 (150-450); RBC Distribution Width CV 16.3 % (11.6-14.6); RBC Distribution Width SD 55.4 fl (35.1-43.9)
--- NOTE | 2018-02-13 18:00 | RAD_ITS ---
STUDY: X-RAY CHEST REASON FOR EXAM: Female, 67 years old. Cough TECHNIQUE: AP portable COMPARISON: February 02, 2018 FINDINGS: There are right basilar streaky opacities. There are grossly stable prominent interstitial markings. There is cardiomegaly present. There is a hiatal hernia present. Normal visualized aortic arch and descending thoracic aorta. Normal visualized thoracic spine. Normal visualized ribs, clavicles, and shoulders. There is no demonstrated abnormality of the visualized soft tissue structures of the upper abdomen. RAD/Chest 1 View (Portable) IMPRESSION: Right basilar streaky opacities may be secondary to underlying atelectasis and/or pneumonia. Cardiomegaly. Hiatal hernia. Electronically Signed: Lolis Chow MD at 19:48 EDT Tel , Service support ,
--- NOTE | 2018-02-13 18:30 | RAD_ITS ---
STUDY: X-RAY - ABDOMEN/PELVIS REASON FOR EXAM: Female, 67 years old. Abdominal pain TECHNIQUE: 4 images of the abdomen. COMPARISON: None. FINDINGS: Normal visualized lung bases. There are scattered air-fluid levels within nondistended loops of bowel, a nonspecific bowel gas pattern. There is no demonstrated free abdominal air. The visualized liver, spleen and kidneys are grossly normal in size and morphology. Normal soft tissue structures. There are diffuse degenerative changes of the visualized lumbar spine. 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 RAD/Abd Decub and/or Erect(Portabl IMPRESSION: Nonspecific bowel gas pattern. Electronically Signed: Lolis Chow MD at 19:50 EDT Tel , Service support ,
[2018-02-13 18:59] VITALS: PULSE 68
[2018-02-13 19:00] LABS: Absolute Lymphocyte Count 1.44 X10^3/ul (0.83-4.51); Absolute Neutrophil Count 8.2 X10^3/uL (2.0-7.7); Basophil# 0.05 X10^3/uL; Basophil% 0.5 % (0-1); Eosinophil# 0.34 X10^3/uL; Eosinophils% 3.1 % (0-5); Hematocrit 39.3 % (37-47); Hemoglobin 11.6 g/dl (12.0-15.0); Lymphocyte # 1.44 X10^3/ul (4.0); Lymphocyte % 13.3 % (19-41); Mean Corp Hgb Conc 29.5 g/gl (32-36); Mean Corpuscular Hgb 28.9 pg (27.0-32.0); Mean Platelet Vol. 9.5 fl (6.2-12.0); Monocyte# 0.87 X10^3/uL; Neutrophil # 8.15 X10^3/uL (2.7-7.7); Platelet Count 490 K/mm3 (150-450); RBC Distribution Width CV 16.5 % (11.6-14.6); RBC Distribution Width SD 57.4 fl (35.1-43.9); Red Blood Count 4.01 M/mm3 (4.2-5.4); White Blood Count 10.9 K/mm3 (4.4-11.0)
[2018-02-13 19:01] LABS: POSITIVE COUNT NO; POSITIVE DIFFERENTIAL NO; POSITIVE MORPHOLOGY NO
[2018-02-13 19:19] LABS: Bacteria 0 SEEN /hpf (None Seen); Mucous, Urine 0 SEEN /hpf (<or=2+); Red Blood Cells-Urine 0 SEEN /hpf (0-5)
[2018-02-13 19:21] LABS: Anion Gap 5 (5-15); BUN 45 mg/dL (7-18); BUN/Creat Ratio 22.1 RATIO (10-20); Chloride 104 mmol/L (98-107); Creatinine, Serum 2.04 mg/dL (0.55-1.02); EST Glomerular Filtration Rate 26 mL/min (>60); Est Glom Filt Rate - Afr Amer 31 mL/min (>60); Estimated Creatinine Clearance 24.08 ml/min; Glucose 94 mg/dL (74-106); Potassium 4.3 mmol/L (3.5-5.1); Sodium Level 142 mmol/L (136-145)
[2018-02-13 19:45] LABS: Color, Urine Yellow (Yellow); Glucose, Dipstick Normal (Normal); Ketone-Dipstick Negative (Negative); Leukocyte Esterase-Dipstick Negative /ul (Negative); Nitrite-Dipstick Negative (Negative); Occult Blood-Urine Negative /ul (Negative); Protein-Dipstick 15 mg/dl (Negative); Specific Gravity, Urine 1.015 (1.002-1.030); Urine Bilirubin Dipstick Negative (Negative); Urine Clarity Clear (Clear); Urine Urobilinogen 1 mg/dl (Normal)
[2018-02-13 19:57] LABS: Hyaline Cast 10-25 SEEN /lpf (0-5)
[2018-02-13 19:58] LABS: Squamous Epithelial Cells - UA 0-5 SEEN /hpf (5-10)
[2018-02-13 19:59] LABS: White Blood Cells 0-5 SEEN /hpf (0-5)
[2018-02-13 22:17] LABS: Anion Gap 6 (5-15); BUN 37 mg/dL (7-18); Calcium,Total 8.9 mg/dL (8.5-10.1); Chloride 99 mmol/L (98-107); Creatinine, Serum 1.32 mg/dL (0.55-1.02); EST Glomerular Filtration Rate 43 mL/min (>60); Est Glom Filt Rate - Afr Amer 52 mL/min (>60); Estimated Creatinine Clearance 37.21 ml/min; Glucose 88 mg/dL (74-106); Potassium 4.2 mmol/L (3.5-5.1); Sodium Level 140 mmol/L (136-145)
[2018-02-13] MEDS: 0.9% Normal Saline 1,000 ML 500 ML IV (22:23)
[2018-02-14] MEDS: 0.9% Normal Saline 1,000 ML 60 ML IV ×2 (00:30→17:40)
[2018-02-14] MEDS: oxyCODONE 5 MG Tablet PO ×4 (00:39→23:13)
[2018-02-14] MEDS: Fluticasone/Salmeterol 232-14 Inhaler 1 PUFF IH ×2 (05:41→18:16)
[2018-02-14] MEDS: Fluticasone 0.05% 1 SPRAY NASAL.SRY NASAL (05:42)
[2018-02-14] MEDS: Pantoprazole Sodium 40 MG Tablet PO ×2 (05:43→18:18)
[2018-02-14] MEDS: Senna/Docusate Sodium 1 Tablet 2 TABLET PO ×2 (05:43→18:19)
[2018-02-14] MEDS: Lisinopril 10 MG Tablet PO (05:43)
[2018-02-14] MEDS: Doxycycline 100 MG CAPSULE PO ×2 (05:43→18:17)
[2018-02-14] MEDS: Cephalexin 500 MG Capsule PO ×2 (05:43→18:17)
[2018-02-14] MEDS: Flecainide 150 MG Tablet PO ×2 (05:43→18:18)
[2018-02-14] MEDS: Acetaminophen 500 MG Tablet 1000 MG PO ×3 (05:43→21:25)
[2018-02-14] MEDS: Venlafaxine XR 75 MG Capsule PO ×2 (05:44→18:19)
[2018-02-14] MEDS: Polyethylene Glycol 3350 17 GM PACKET PO (05:44)
[2018-02-14] MEDS: Pramipexole Di-HCl 0.5 MG Tablet PO ×3 (05:44→21:24)
[2018-02-14] MEDS: guaiFENesin 1,200 MG Tablet 1200 MG PO ×2 (05:44→18:17)
[2018-02-14] MEDS: Enoxaparin 40 MG/0.4 ML Syringe SC (05:44)
[2018-02-14] MEDS: Nystatin Powder 15gm Bottle 1 APPLIC TOPICAL ×3 (05:44→21:27)
[2018-02-14 05:51] VITALS: BP 132/67; PULSE 67
[2018-02-14] MEDS: Metoprolol Tartrate 25 MG Tablet PO ×2 (05:51→18:18)
[2018-02-14 07:05] LABS: Anion Gap 2 (5-15); BUN 38 mg/dL (7-18); BUN/Creat Ratio 24.2 RATIO (10-20); Calcium,Total 8.9 mg/dL (8.5-10.1); Chloride 106 mmol/L (98-107); Creatinine, Serum 1.57 mg/dL (0.55-1.02); EST Glomerular Filtration Rate 35 mL/min (>60); Est Glom Filt Rate - Afr Amer 42 mL/min (>60); Estimated Creatinine Clearance 31.29 ml/min; Glucose 90 mg/dL (74-106); Potassium 4.4 mmol/L (3.5-5.1); Sodium Level 141 mmol/L (136-145)
[2018-02-14] MEDS: Iron Polysaccharide Complex 150 MG CAPSULE PO (08:46)
--- NOTE | 2018-02-14 08:51 | NURSING ---
Addendum entered by Maryanne Torres 02/15/18 11:52: Upon assessing patient's left calf, patient denies any pain, has c/o pain near left hip where incision from surgery is. Pedal pulses strong, lower extremity warm and pink, no areas of coolness or redness. Original Note: PT STATED TO THIS NURSE THAT HER LEFT CALF WAS PAINFUL AND SORE TO THE TOUCH. REPORTED TO DARLING SOSA
--- NOTE | 2018-02-14 10:44 | MDS.RN ---
Information for the mds was obtained from review of the clinical record-from computer and paper chart due to computers down during part of lookback period, interview of resident, staff, and direct observation of resident's care.
[2018-02-14] MEDS: LORazepam 0.5 MG Tablet PO (12:41)
[2018-02-14 16:00] VITALS: BP 122/70; PULSE 60; RESP 18; TEMP 36.4; O2SAT 93
[2018-02-14 18:18] VITALS: BP 122/70; PULSE 60
[2018-02-14 23:59] VITALS: RESP 20; O2SAT 94
[2018-02-15] MEDS: Fluticasone/Salmeterol 232-14 Inhaler 1 PUFF IH ×2 (04:33→17:47)
[2018-02-15] MEDS: Acetaminophen 500 MG Tablet 1000 MG PO ×3 (04:36→21:05)
[2018-02-15] MEDS: Doxycycline 100 MG CAPSULE PO ×2 (04:36→17:49)
[2018-02-15] MEDS: Venlafaxine XR 75 MG Capsule PO ×2 (04:36→17:48)
[2018-02-15] MEDS: Cephalexin 500 MG Capsule PO ×2 (04:36→17:48)
[2018-02-15] MEDS: guaiFENesin 1,200 MG Tablet 1200 MG PO ×2 (04:36→17:48)
[2018-02-15 04:37] VITALS: PULSE 64
[2018-02-15] MEDS: Metoprolol Tartrate 25 MG Tablet PO ×2 (04:37→17:49)
[2018-02-15] MEDS: Flecainide 150 MG Tablet PO ×2 (04:37→17:48)
[2018-02-15] MEDS: Senna/Docusate Sodium 1 Tablet 2 TABLET PO ×2 (04:37→17:48)
[2018-02-15] MEDS: Pantoprazole Sodium 40 MG Tablet PO ×2 (04:37→17:48)
[2018-02-15] MEDS: Pramipexole Di-HCl 0.5 MG Tablet PO ×3 (04:37→21:05)
[2018-02-15] MEDS: Lisinopril 10 MG Tablet PO (04:37)
[2018-02-15] MEDS: Enoxaparin 40 MG/0.4 ML Syringe SC (04:38)
[2018-02-15] MEDS: Nystatin Powder 15gm Bottle 1 APPLIC TOPICAL ×2 (04:40→21:06)
[2018-02-15] MEDS: Fluticasone 0.05% 1 SPRAY NASAL.SRY NASAL (04:42)
[2018-02-15] MEDS: oxyCODONE 5 MG Tablet PO ×4 (05:20→23:50)
[2018-02-15 05:37] VITALS: O2SAT 95
[2018-02-15 08:01] VITALS: O2SAT 94
[2018-02-15] MEDS: Iron Polysaccharide Complex 150 MG CAPSULE PO (08:28)
[2018-02-15 15:40] VITALS: BP 147/63; PULSE 56; RESP 28; TEMP 36.2; O2SAT 95
[2018-02-15 15:50] VITALS: PULSE 62
[2018-02-15 17:49] VITALS: BP 147/63; PULSE 62
[2018-02-16] MEDS: LORazepam 0.5 MG Tablet PO (02:04)
--- NOTE | 2018-02-16 02:27 | NURSING ---
AIR EXPORT OPERATIONS AGENT reported to RN pt will not wear O2. Pt agreeable to wearing O2 at this time. Pt very tearful this evening. Pt informed this nurse she was upset with her sister questioning how long pt is going to be on TCU. Pt called her sister a witch, but she is the last one she has. Pt also tearful over spouses 5 years ago. Pt upset granddaughter is a type 1 and 2 DM. Pt is scared she is going to lose granddaughter to DM coma. Pt tearful she is seeing cats in the lights and her daughter tells her to stop talking. Much TLC and 1:1 provided. Pt toleited. Pt up in hallway, walking. Pt provided with sreekanth morgan. RN informed pt she is proud of pt accomplishments. Pt positioned in bed for comfort. Pt smiling prior to RN leaving. Pt denies further needs at this time. Will continue to monitor and asses. Will update Dr Callejas.
[2018-02-16] MEDS: Fluticasone 0.05% 1 SPRAY NASAL.SRY NASAL (05:57)
[2018-02-16] MEDS: Fluticasone/Salmeterol 232-14 Inhaler 1 PUFF IH ×2 (05:57→18:37)
[2018-02-16 05:59] VITALS: BP 141/86; PULSE 66
[2018-02-16] MEDS: Pantoprazole Sodium 40 MG Tablet PO ×2 (05:59→18:35)
[2018-02-16] MEDS: Acetaminophen 500 MG Tablet 1000 MG PO ×3 (05:59→21:16)
[2018-02-16] MEDS: Cephalexin 500 MG Capsule PO ×2 (05:59→18:37)
[2018-02-16] MEDS: Nystatin Powder 15gm Bottle 1 APPLIC TOPICAL ×3 (05:59→21:16)
[2018-02-16] MEDS: Lisinopril 10 MG Tablet PO (05:59)
[2018-02-16] MEDS: Flecainide 150 MG Tablet PO ×2 (05:59→18:36)
[2018-02-16] MEDS: Venlafaxine XR 75 MG Capsule PO ×2 (05:59→18:36)
[2018-02-16] MEDS: Doxycycline 100 MG CAPSULE PO ×2 (05:59→18:36)
[2018-02-16] MEDS: Pramipexole Di-HCl 0.5 MG Tablet PO ×4 (05:59→21:15)
[2018-02-16] MEDS: Metoprolol Tartrate 25 MG Tablet PO ×2 (05:59→18:36)
[2018-02-16] MEDS: guaiFENesin 1,200 MG Tablet 1200 MG PO ×2 (05:59→18:35)
[2018-02-16] MEDS: Enoxaparin 40 MG/0.4 ML Syringe SC (05:59)
[2018-02-16] MEDS: Senna/Docusate Sodium 1 Tablet 2 TABLET PO (05:59)
[2018-02-16] MEDS: oxyCODONE 5 MG Tablet PO ×2 (06:06→12:07)
[2018-02-16 06:13] LABS: Absolute Lymphocyte Count 1.16 X10^3/ul (0.83-4.51); Absolute Neutrophil Count 5.6 X10^3/uL (2.0-7.7); Basophil# 0.04 X10^3/uL; Basophil% 0.5 % (0-1); Eosinophil# 0.26 X10^3/uL; Eosinophils% 3.4 % (0-5); Hematocrit 37.1 % (37-47); Hemoglobin 10.7 g/dl (12.0-15.0); Lymphocyte # 1.16 X10^3/ul (4.0); Lymphocyte % 15.1 % (19-41); Mean Corp Hgb Conc 28.8 g/gl (32-36); Mean Corpuscular Hgb 27.9 pg (27.0-32.0); Mean Corpuscular Volume 96.9 fL (81-99); Mean Platelet Vol. 9.5 fl (6.2-12.0); Monocyte# 0.58 X10^3/uL; Monocyte% 7.6 % (0-10); Neutrophil # 5.64 X10^3/uL (2.7-7.7); Neutrophil % 73.4 % (47-70); Platelet Count 475 K/mm3 (150-450); RBC Distribution Width CV 16.4 % (11.6-14.6); RBC Distribution Width SD 57.1 fl (35.1-43.9); Red Blood Count 3.83 M/mm3 (4.2-5.4); White Blood Count 7.7 K/mm3 (4.4-11.0)
[2018-02-16 06:31] LABS: Anion Gap 4 (5-15); BUN 29 mg/dL (7-18); BUN/Creat Ratio 26.6 RATIO (10-20); Calcium,Total 8.9 mg/dL (8.5-10.1); Chloride 104 mmol/L (98-107); Creatinine, Serum 1.09 mg/dL (0.55-1.02); EST Glomerular Filtration Rate 53 mL/min (>60); Est Glom Filt Rate - Afr Amer 64 mL/min (>60); Estimated Creatinine Clearance 45.07 ml/min; Glucose 85 mg/dL (74-106); Potassium 4.2 mmol/L (3.5-5.1); Sodium Level 139 mmol/L (136-145)
[2018-02-16 06:55] LABS: POSITIVE COUNT NO; POSITIVE DIFFERENTIAL NO; POSITIVE MORPHOLOGY NO
[2018-02-16 07:10] VITALS: O2SAT 96
[2018-02-16] MEDS: Iron Polysaccharide Complex 150 MG CAPSULE PO (08:29)
[2018-02-16 08:54] VITALS: PULSE 63; RESP 18; O2SAT 97
--- NOTE | 2018-02-16 09:07 | NURSING ---
This nurse observed Pt trying to self transfer from wheelchair, This nurse and CAB STARTER assisted Pt to bed. This nurse explaining the importance of calling for help, and the risks of self transferring. Pt voiced understanding and was apologetic at this time. Will continue to monitor PT.
[2018-02-16] MEDS: Mag Hydrox/Al Hydrox/Simeth 30 ML UDC PO (09:29)
--- NOTE | 2018-02-16 12:25 | NURSING ---
Pt taken to Dr. Vance appt by LINUX CONSULTANT via wc.
--- NOTE | 2018-02-16 14:40 | NURSING ---
Pt returned from Dr. Vance appt with daughter via WC. New orders received.
[2018-02-16] MEDS: oxyCODONE CR 15 MG Tablet PO (15:07)
[2018-02-16 15:26] VITALS: BP 143/68; PULSE 59; RESP 20; TEMP 36.3; O2SAT 97
[2018-02-16 18:36] VITALS: BP 143/68; PULSE 59
[2018-02-17] MEDS: oxyCODONE CR 15 MG Tablet PO ×2 (04:19→17:50)
[2018-02-17] MEDS: Lisinopril 10 MG Tablet PO (04:37)
[2018-02-17] MEDS: Flecainide 150 MG Tablet PO ×2 (04:37→17:51)
[2018-02-17] MEDS: Senna/Docusate Sodium 1 Tablet 2 TABLET PO ×2 (04:37→17:51)
[2018-02-17 04:38] VITALS: BP 126/70; PULSE 60
[2018-02-17] MEDS: Fluticasone 0.05% 1 SPRAY NASAL.SRY NASAL (04:38)
[2018-02-17] MEDS: Nystatin Powder 15gm Bottle 1 APPLIC TOPICAL ×3 (04:38→21:23)
[2018-02-17] MEDS: Pantoprazole Sodium 40 MG Tablet PO ×2 (04:38→17:51)
[2018-02-17] MEDS: Enoxaparin 40 MG/0.4 ML Syringe SC (04:38)
[2018-02-17] MEDS: Metoprolol Tartrate 25 MG Tablet PO ×2 (04:38→17:51)
[2018-02-17] MEDS: Fluticasone/Salmeterol 232-14 Inhaler 1 PUFF IH ×2 (04:38→17:54)
[2018-02-17] MEDS: guaiFENesin 1,200 MG Tablet 1200 MG PO ×2 (04:38→17:52)
[2018-02-17] MEDS: Cephalexin 500 MG Capsule PO ×2 (04:38→17:51)
[2018-02-17] MEDS: Polyethylene Glycol 3350 17 GM PACKET PO (04:38)
[2018-02-17] MEDS: Pramipexole Di-HCl 0.5 MG Tablet PO ×3 (04:39→21:23)
[2018-02-17] MEDS: Doxycycline 100 MG CAPSULE PO ×2 (04:39→17:52)
[2018-02-17] MEDS: Venlafaxine XR 75 MG Capsule PO ×2 (04:39→17:51)
[2018-02-17] MEDS: Acetaminophen 500 MG Tablet 1000 MG PO ×3 (05:02→21:24)
[2018-02-17 06:53] VITALS: O2SAT 97
[2018-02-17] MEDS: oxyCODONE 5 MG Tablet PO ×3 (08:26→21:27)
[2018-02-17] MEDS: Iron Polysaccharide Complex 150 MG CAPSULE PO (08:26)
[2018-02-17 09:45] VITALS: PULSE 88; RESP 18; O2SAT 94
--- NOTE | 2018-02-17 10:42 | NURSING ---
Pt requesting more pain medication at this time. Pt had pain medication within an hour and is requesting more pain medication, and requesting muscle relaxers. Pt has had all ordered pain medication that she can have and is very mad and hostile. Pt is order pain medication every 4 hours and she is requesting medication hourly. Charge nurse Sharon HASTINGS aware
[2018-02-17] MEDS: LORazepam 0.5 MG Tablet PO (10:55)
--- NOTE | 2018-02-17 11:04 | NURSING ---
PT REQUESTING TO SPEAK TO THE HEAD NURSE ABOUT PAIN MEDS. PT IS SITTING IN THE W/C. STATES I SAW DR PULLIAM YEST AND HE CHANGED MY PAIN MEDS AROUND AND NOW I JUST NEED SOMETHING FOR ANXIETY AND THE OTHER NURSE IS YELLING AT ME AND TELLING ME NOTHING IS ORDERED. SURESH THORNTON STATES PT HAS ONLY REQUESTED PAIN MEDS AND MUSCLE RELAXER MED. SURESH THORNTON ALSO STATES SHE REVIEWED WHEN PT RECEIVED PAIN MEDS AND REVIEWED PAIN MED SCHED WITH PT. PT INFORMED THAT ATIVAN IS AVAILABLE FOR ANXIETY AND CAN BE PROVIDED. PT THEN STATES I WANT THIS ALARM OFF, I'M NOT GOING ANYWHERE, I JUST NEED IT OFF. PT IS ANXIOUS AND CRYING W/OUT TEARS. ATIVAN PROVIDED AND PT INFORMED THAT THE PERSONAL ALARM WILL STAY ON UNTIL CLEARED BY THERAPY TO HAVE IT REMOVED. THIS NURSE ASKED IF PAIN MEDS ARE EFFECTIVE FOR PAIN AFTER THE CHANGES MADE BY DR PULLIAM. PT STATES I THINK THEY ARE BUT THEN I MOVE AND THERE'S THIS CRAMPING AND IT HURTS. CAN I HAVE SOMETHING ELSE FOR THE PAIN? IS THERE ANYTHING I CAN HAVE? REVIEWED PAIN MEDS AND MED SCHED WITH PT. PT CALMS SLIGHTLY. WILL CONT TO MONITOR.
--- NOTE | 2018-02-17 13:00 | RAD_ITS ---
STUDY: SWALLOWING STUDY REASON FOR EXAM: Female, 67 years old. Dysphagia TECHNIQUE: The examination was performed with Speech Pathology in attendance. Under fluoroscopic observation, the patient ingested thin barium, thick barium, barium pudding, and barium coated cracker. FLUOROSCOPY TIME: 2:28 minutes/seconds RADIOLOGIST INVOLVEMENT: Radiologist was present and providing direct supervision. COMPARISON: None. FINDINGS: The following was observed during swallowing of the various mixtures of barium: Thin Barium: There was laryngeal penetration improved with straw and chin tuck maneuvers. Thick Barium: There was laryngeal penetration improved with straw and chin tuck maneuvers. Barium Pudding: There was no evidence of aspiration or laryngeal penetration. Barium Coated Cracker: There was no evidence of aspiration or laryngeal penetration. RAD/Swallowing Function w/Video IMPRESSION: There was laryngeal penetration improved with drinking via straw and with chin tuck maneuvers during thin and thick liquid swallows. The swallow study findings were discussed with the patient by the speech pathologist at the conclusion of the examination. Please see speech pathology report for more information and recommendations. The procedure was performed by speech pathologist under the direct supervision of myself Electronically Signed: La Chaney MD at 14:17 EDT Tel , Service support ,
--- NOTE | 2018-02-17 13:00 | SP.MBSS_ITS ---
PRIMARY / SECONDARY DIAGNOSIS: dysphagia (R13.10) REFERRING PHYSICIAN: Dr. Asad Callejas MD CURRENT DIET: mechanical soft textures, thin liquids DENTITION: ill-fitting upper / lower dentures MENTAL STATUS: current mild impairment RESPIRATORY STATUS: O2 via room air PREVIOUS MODIFIED BARIUM SWALLOW STUDY: none REASON FOR REFERRAL: Patient is a 67 year old female referred for a modified barium swallow (MBS) study to objectively assess the Patients oropharyngeal swallow function under fluoroscopy secondary to reported difficulties with deglutition and higher risk of aspiration secondary to the diagnosis of chronic obstructive pulmonary disease, compounded by recent chest X-ray results. 02/13/2018 CXR revealed right basilar streaky opacities may be secondary to underlying atelectasis and / or pneumonia; cardiomegaly; hiatal hernia. MEDICAL HISTORY: Chronic obstructive pulmonary disease, chronic respiratory failure with hypoxia , pulmonary nodules, asthma, obstructive sleep apnea, gastroesophageal reflux disease, dysmetabolic syndrome, anxiety, depression, chronic back pain, muscle spasm, osteoarthritis, chronic combined systolic and diastolic congestive heart failure, left ventricular hypertrophy, paroxysmal atrial fibrillation, non- sustained ventricular tachycardia, snf current use of antiarrhythmic medical therapy, hypertension, super / morbid obesity, tobacco dependence 90- pack-year smoking history STUDY FINDINGS: Patient participated in a Modified Barium Swallow (MBS) study on 02/17/2018. Dr. Chaney was the radiologist present for this evaluation. This study was recorded in the lateral view and images were sent to PACs for storage. The following consistencies were presented to this patient for analysis of oropharyngeal swallow function: thin liquids, nectar thickened liquids, pudding , and a regular textured, [place] cookie. Results of the MBS are as follows: PENETRATION / ASPIRATION SCALE (MARINELLI): 1 = does not enter airway 2 = enters airway/above vocal folds/ejected 3 = enters airway/above vocal folds/not ejected 4 = enters airway/contacts vocal folds/ejected 5 = enters airway/contacts vocal folds/not ejected 6 = enters airway/below vocal folds/ejected 7 = enters airway/below vocal folds/not ejected despite effort 8 = enters airway/below vocal folds/no effort VIDEOFLOROSCOPIC SCALE SCORE (MARINELLI): Grade I = aspiration of material that has penetrated into the laryngeal vestibule, intact cough reflex Grade II = aspiration < 10 % of the bolus, intact cough reflex Grade III = aspiration of < 10 % of the bolus, reduced cough reflex or aspiration of > 10 % of the bolus, intact cough reflex Grade IV = aspiration of > 10 % of the bolus, reduced cough reflex PENETRATION / ASPIRATION SCALE (SCORE) WITH VIDEOFLOROSCOPIC SCALE SCORE: Thin liquid - 5 mL tsp.: 5 Thin liquids via cup (single sip): 3 Thin liquids via cup (sequential swallows): 5 Thin liquids via straw (sequential swallows): 5 Thin liquids via straw (single sip): 5 Thin liquids via straw (chin tuck): 1 Thin liquids via straw (chin tuck): 1 Thin liquids via straw (chin tuck): 1 [place] thickened liquids via cup (single sip): 2 [place] thickened liquids via cup (single sip): 2 [place] thickened liquids via cup (chin tuck): 2 Pudding via spoon: 1 Regular textured cookie: 1 Thin liquids via straw (chin tuck): 1 Thin liquids via straw (chin tuck): 1 * multiple views complicated by body habitus IMPRESSION: DIAGNOSIS: mild oropharyngeal dysphagia (R13.12) ORAL PHASE CHARACTERIZED BY: LABIAL SEAL: no labial escape TONGUE CONTROL DURING BOLUS MANIPULATION: posterior escape of greater than half of bolus BOLUS PREPARATION / MASTICATION: slow prolonged chewing/mashing with complete recollection BOLUS TRANSPORT / LINGUAL MOTION: trace to mild repetitive tongue motion with more viscous textures attributed to reported dry mouth, clinically insignificant ; overall brisk tongue motion ORAL RESIDUE: trace residue lining oral structures PHARYNGEAL PHASE CHARACTERIZED BY: INITIATION OF PHARYNGEAL SWALLOW: bolus head in pyriforms at first hyoid excursion SOFT PALATE ELEVATION: no bolus between soft palate and pharyngeal wall LARYNGEAL ELEVATION: complete superior movement of thyroid cartilage with complete approximation of arytenoids cartilage to epiglottic petiole ANTERIOR HYOID EXCURSION: partial anterior movement EPIGLOTTIC MOVEMENT: complete epiglottic inversion LARYNGEAL VESTIBULE CLOSURE AT HEIGHT OF SWALLOW: incomplete laryngeal vestibule closure with narrow column of air/contrast in laryngeal vestibule PHARYNGEAL STRIPPING WAVE: pharyngeal stripping wave present / complete PHARYNGOESOPHAGEAL SEGMENT OPENING: complete distension and complete duration with no obstruction of flow TONGUE BASE RETRACTION: narrow column of contrast between tongue base and posterior pharyngeal wall PHARYNGEAL RESIDUE: intermittent collection of residue within or on pharyngeal structures; consistent trace residue within or on pharyngeal structures ESOPHAGEAL PHASE CHARACTERIZED BY: ESOPHAGEAL BOLUS CLEARANCE IN THE UPRIGHT POSITION: could not view EFFECTS OF TREATMENT STRATEGIES ATTEMPTED: Chin tuck posture = effective Volitional re-swallow = effective Reduced bolus size = effective Use of straw = effective DIET TEXTURE RECOMMENDATIONS: Will recommend a mechanical soft textured, thin liquid diet. COMPENSATORY STRATEGIES RECOMMENDED: Distant supervision, chin tuck, reduced bolus volume, consider straws with all liquids, seated upright at 90 degrees during PO intake, remain upright for 30- 60 minutes post meal (GERD precaution) INTERPRETATION OF RESULTS: Patient presents with mild to moderate oropharyngeal dysphagia (R13.12) likely attributed to the diagnosis of chronic obstructive pulmonary disease in combination with secondary presbyphagia. Oral phase primarily marked by suboptimal lingual control resulting in consistent posterior bolus loss / premature spillage to the vallecula and intermittently to the vocal folds prior to swallow onset, placing the Patient at high risk of preprandial aspiration ( ameliorated with chin tuck posture); and mastication inefficiency (mild) associated with poor denture fit (copious lower denture movement throughout study). Pharyngeal phase primarily marked by delayed pharyngeal swallow onset timing resulting in suboptimal bolus location upon swallow onset; and reduced closure of the airway during deglutition attributed to reduced anterior hyoid excursion resulting in poor laryngeal vestibule closure and insufficient / inconsistent laryngeal vestibule pressure generated to expel penetrated material ; all contributing to pre-prandial and prandial penetration to the vocal folds primariy with thin liquids. All deficits ameliorated with execution of the chin tuck posture (with thin liquids), use of straw (improved bolus size selection and control), and bolus volume adjustments. Audible swallow noted with larger sequential swallows accompanied by larger volumes of penetration; may attribute to bedsde complaints. No clear reason for intermittent odynophagia noted throughout assessment, unable to complete esophageal screen due in part to limited mobility of the C-arm in relation to body habitus and Patient discomfort. No aspiration appreciated throughout trials, unable to definitively rule out silent aspiration (higher risk factor with diagnosis of chronic obstructive pulmonary disease). RECOMMENDATIONS: Patient requires intensive skilled speech-language intervention targeting continued diet texture management; training and implementation of recommended compensatory strategies (chin tuck posture); continuing Patient education regarding dysphagia associated with chronic obstructive pulmonary disease. Would consider diet texture advancement to soft textures through further informal assessment measures if clinically appropriate. ADDITIONAL COMMENTS/RECOMMENDATIONS: Results and recommendations were discussed with the Patient immediately following MBS completion, with the Patient verbalizing understanding and agreement with all recommendations and education provided. IMAGE COUNT: [id number]
--- NOTE | 2018-02-17 13:32 | NURSING ---
DR CURTIS NOTIFIED OF PT C/O OF CRAMPING AND REQUEST FOR MUSCLE RELAXER. NEW ORDER FOR PRN BACLOFEN RECEIVED.
[2018-02-17] MEDS: Baclofen 10 MG Tablet PO (14:31)
--- NOTE | 2018-02-17 14:58 | NURSING ---
Wound on left hip incision packed per Doctor order, covered with dry sterile dressing. minimal draingage noted at this time. Sharon HASTINGS aware
[2018-02-17 15:25] VITALS: BP 120/71; PULSE 66; RESP 20; TEMP 36.4; O2SAT 90
[2018-02-17 17:51] VITALS: BP 180/71; PULSE 78
[2018-02-18] MEDS: oxyCODONE 5 MG Tablet PO ×3 (03:44→21:09)
[2018-02-18] MEDS: oxyCODONE CR 15 MG Tablet PO ×2 (06:44→19:11)
[2018-02-18] MEDS: Polyethylene Glycol 3350 17 GM PACKET PO (06:45)
[2018-02-18] MEDS: Venlafaxine XR 75 MG Capsule PO ×2 (06:46→19:10)
[2018-02-18] MEDS: Fluticasone 0.05% 1 SPRAY NASAL.SRY NASAL ×2 (06:46→19:14)
[2018-02-18] MEDS: Doxycycline 100 MG CAPSULE PO ×2 (06:46→19:10)
[2018-02-18 06:47] VITALS: BP 127/67; PULSE 74
[2018-02-18] MEDS: guaiFENesin 1,200 MG Tablet 1200 MG PO ×2 (06:47→19:11)
[2018-02-18] MEDS: Cephalexin 500 MG Capsule PO ×2 (06:47→19:11)
[2018-02-18] MEDS: Enoxaparin 40 MG/0.4 ML Syringe SC (06:47)
[2018-02-18] MEDS: Nystatin Powder 15gm Bottle 1 APPLIC TOPICAL ×3 (06:47→21:11)
[2018-02-18] MEDS: Metoprolol Tartrate 25 MG Tablet PO ×2 (06:47→19:11)
[2018-02-18] MEDS: Fluticasone/Salmeterol 232-14 Inhaler 1 PUFF IH ×2 (06:47→19:36)
[2018-02-18] MEDS: Pramipexole Di-HCl 0.5 MG Tablet PO ×3 (06:47→21:10)
[2018-02-18] MEDS: Flecainide 150 MG Tablet PO ×2 (06:48→19:10)
[2018-02-18] MEDS: Lisinopril 10 MG Tablet PO (06:48)
[2018-02-18] MEDS: Pantoprazole Sodium 40 MG Tablet PO ×2 (06:48→19:10)
[2018-02-18] MEDS: Acetaminophen 500 MG Tablet 1000 MG PO ×3 (06:48→21:11)
[2018-02-18] MEDS: Senna/Docusate Sodium 1 Tablet 2 TABLET PO ×2 (06:48→19:10)
[2018-02-18 07:36] VITALS: O2SAT 90
[2018-02-18] MEDS: Iron Polysaccharide Complex 150 MG CAPSULE PO (08:46)
[2018-02-18 10:00] VITALS: PULSE 62; O2SAT 92
--- NOTE | 2018-02-18 12:30 | NURSING ---
Pt has c/o food getting stuck in throat while eating and then coming back up. Patient having issues with ground meat hamburger. Was able to eat peaches, jello and coleslaw without issue. Pt educated on how to take small bites and chew thoroughly before swallowing and to ensure utilizing chin tuck during swallowing. Pt understanding. No coughing or choking noted during eating. Will continue to monitor.
[2018-02-18] MEDS: LORazepam 0.5 MG Tablet PO (13:22)
[2018-02-18] MEDS: Bisacodyl 5 MG Tablet 10 MG PO (13:25)
[2018-02-18 15:49] VITALS: BP 124/72; PULSE 60; RESP 18; TEMP 36.6; O2SAT 95
[2018-02-18 16:05] VITALS: PULSE 62; RESP 18
[2018-02-18] MEDS: Albuterol 2.5 MG/3 ML VIAL.NEB. INHALATION (16:05)
[2018-02-18 19:11] VITALS: BP 124/72; PULSE 62
[2018-02-18] MEDS: Baclofen 10 MG Tablet PO (23:32)
[2018-02-19] MEDS: oxyCODONE 5 MG Tablet PO ×3 (03:01→14:35)
[2018-02-19] MEDS: Polyethylene Glycol 3350 17 GM PACKET PO (06:08)
[2018-02-19] MEDS: Doxycycline 100 MG CAPSULE PO ×2 (06:09→17:36)
[2018-02-19 06:10] VITALS: BP 125/69; PULSE 64
[2018-02-19] MEDS: Cephalexin 500 MG Capsule PO ×2 (06:10→17:37)
[2018-02-19] MEDS: Venlafaxine XR 75 MG Capsule PO ×2 (06:10→17:37)
[2018-02-19] MEDS: Metoprolol Tartrate 25 MG Tablet PO ×2 (06:10→17:37)
[2018-02-19] MEDS: Fluticasone/Salmeterol 232-14 Inhaler 1 PUFF IH ×2 (06:10→17:38)
[2018-02-19] MEDS: Enoxaparin 40 MG/0.4 ML Syringe SC (06:11)
[2018-02-19] MEDS: Pramipexole Di-HCl 0.5 MG Tablet PO ×3 (06:11→21:35)
[2018-02-19] MEDS: Acetaminophen 500 MG Tablet 1000 MG PO ×3 (06:11→21:36)
[2018-02-19] MEDS: Nystatin Powder 15gm Bottle 1 APPLIC TOPICAL ×3 (06:11→21:35)
[2018-02-19] MEDS: Senna/Docusate Sodium 1 Tablet 2 TABLET PO ×2 (06:11→17:37)
[2018-02-19] MEDS: Pantoprazole Sodium 40 MG Tablet PO ×2 (06:11→17:37)
[2018-02-19] MEDS: Flecainide 150 MG Tablet PO ×2 (06:11→17:36)
[2018-02-19] MEDS: Lisinopril 10 MG Tablet PO (06:11)
[2018-02-19] MEDS: guaiFENesin 1,200 MG Tablet 1200 MG PO ×2 (06:11→17:37)
[2018-02-19] MEDS: oxyCODONE CR 15 MG Tablet PO ×2 (06:14→17:36)
[2018-02-19 08:01] VITALS: O2SAT 94
[2018-02-19] MEDS: Iron Polysaccharide Complex 150 MG CAPSULE PO (08:14)
[2018-02-19] MEDS: Ondansetron ODT 4 MG Tablet PO ×2 (09:33→23:40)
[2018-02-19 09:43] VITALS: PULSE 58; RESP 18; O2SAT 95
[2018-02-19 15:33] VITALS: BP 118/64; PULSE 61; RESP 18; TEMP 36.6; O2SAT 18
[2018-02-19 17:37] VITALS: BP 118/64; PULSE 61
[2018-02-19] MEDS: LORazepam 0.5 MG Tablet PO (21:35)
[2018-02-19] MEDS: Baclofen 10 MG Tablet PO (21:35)
[2018-02-20] MEDS: oxyCODONE CR 15 MG Tablet PO ×2 (04:49→17:20)
[2018-02-20] MEDS: Cephalexin 500 MG Capsule PO ×2 (04:50→17:22)
[2018-02-20] MEDS: Venlafaxine XR 75 MG Capsule PO ×2 (04:50→17:21)
[2018-02-20] MEDS: Polyethylene Glycol 3350 17 GM PACKET PO (04:50)
[2018-02-20] MEDS: Doxycycline 100 MG CAPSULE PO ×2 (04:50→17:21)
[2018-02-20 04:51] VITALS: BP 139/84; PULSE 66
[2018-02-20] MEDS: Metoprolol Tartrate 25 MG Tablet PO ×2 (04:51→17:22)
[2018-02-20] MEDS: Nystatin Powder 15gm Bottle 1 APPLIC TOPICAL ×3 (04:51→21:10)
[2018-02-20] MEDS: guaiFENesin 1,200 MG Tablet 1200 MG PO ×2 (04:51→17:23)
[2018-02-20] MEDS: Pramipexole Di-HCl 0.5 MG Tablet PO ×3 (04:51→21:03)
[2018-02-20] MEDS: Enoxaparin 40 MG/0.4 ML Syringe SC (04:51)
[2018-02-20] MEDS: Acetaminophen 500 MG Tablet 1000 MG PO ×3 (04:52→21:04)
[2018-02-20] MEDS: Lisinopril 10 MG Tablet PO (04:52)
[2018-02-20] MEDS: Flecainide 150 MG Tablet PO ×2 (04:52→17:24)
[2018-02-20] MEDS: Senna/Docusate Sodium 1 Tablet 2 TABLET PO ×2 (04:52→17:23)
[2018-02-20] MEDS: Pantoprazole Sodium 40 MG Tablet PO ×2 (04:52→17:23)
[2018-02-20] MEDS: Fluticasone/Salmeterol 232-14 Inhaler 1 PUFF IH ×2 (04:52→17:21)
[2018-02-20] MEDS: Fluticasone 0.05% 1 SPRAY NASAL.SRY NASAL (04:53)
[2018-02-20 06:55] VITALS: O2SAT 93
[2018-02-20] MEDS: Iron Polysaccharide Complex 150 MG CAPSULE PO (08:51)
[2018-02-20] MEDS: oxyCODONE 5 MG Tablet PO ×3 (08:51→21:09)
[2018-02-20 10:45] VITALS: O2SAT 93
--- NOTE | 2018-02-20 10:59 | CASEMGMT ---
Insurance Clinical information sent. Pending continued stay approval at this time. Auth#[id number] Teresa DUARTE, PHOTO CHECKER AND ASSEMBLER
[2018-02-20] MEDS: LORazepam 0.5 MG Tablet PO (11:33)
[2018-02-20 15:17] VITALS: BP 137/49; PULSE 69; RESP 20; TEMP 36.2; O2SAT 89
--- NOTE | 2018-02-20 16:20 | CASEMGMT ---
Insurance Continued stay approved with next update due on 02/27/18. Auth#[id number] Teresa DUARTE, REDEVELOPMENT MANAGER
[2018-02-20 17:22] VITALS: BP 137/49; PULSE 69
[2018-02-20] MEDS: Menthol/Lanolin/Calamine/Znox 113 GM Tube 1 APPLIC TOPICAL (22:10)
[2018-02-20] MEDS: Baclofen 10 MG Tablet PO (22:52)
[2018-02-21] MEDS: oxyCODONE 5 MG Tablet PO ×4 (05:04→21:10)
[2018-02-21] MEDS: Acetaminophen 500 MG Tablet 1000 MG PO ×3 (05:05→21:34)
[2018-02-21 05:06] VITALS: BP 137/87; PULSE 67
[2018-02-21] MEDS: Pramipexole Di-HCl 0.5 MG Tablet PO ×3 (05:06→21:34)
[2018-02-21] MEDS: Enoxaparin 40 MG/0.4 ML Syringe SC (05:06)
[2018-02-21] MEDS: Senna/Docusate Sodium 1 Tablet 2 TABLET PO ×2 (05:06→18:07)
[2018-02-21] MEDS: Metoprolol Tartrate 25 MG Tablet PO ×2 (05:06→18:08)
[2018-02-21] MEDS: Pantoprazole Sodium 40 MG Tablet PO ×2 (05:06→18:07)
[2018-02-21] MEDS: Venlafaxine XR 75 MG Capsule PO ×2 (05:06→18:07)
[2018-02-21] MEDS: guaiFENesin 1,200 MG Tablet 1200 MG PO ×2 (05:07→18:07)
[2018-02-21] MEDS: Flecainide 150 MG Tablet PO ×2 (05:07→18:07)
[2018-02-21] MEDS: Lisinopril 10 MG Tablet PO (05:08)
[2018-02-21] MEDS: Fluticasone/Salmeterol 232-14 Inhaler 1 PUFF IH ×2 (05:11→18:05)
[2018-02-21] MEDS: Nystatin Powder 15gm Bottle 1 APPLIC TOPICAL ×3 (05:12→21:33)
[2018-02-21] MEDS: Menthol/Lanolin/Calamine/Znox 113 GM Tube 1 APPLIC TOPICAL ×4 (05:12→21:32)
[2018-02-21] MEDS: Fluticasone 0.05% 1 SPRAY NASAL.SRY NASAL (05:14)
[2018-02-21] MEDS: oxyCODONE CR 15 MG Tablet PO ×2 (05:46→18:52)
[2018-02-21] MEDS: Iron Polysaccharide Complex 150 MG CAPSULE PO (07:56)
[2018-02-21 09:45] VITALS: PULSE 62; RESP 18; O2SAT 97
[2018-02-21] MEDS: LORazepam 0.5 MG Tablet PO ×2 (12:52→21:30)
[2018-02-21 16:00] VITALS: BP 116/73; PULSE 64; RESP 18; TEMP 36.4; O2SAT 95
[2018-02-21 18:08] VITALS: BP 116/73; PULSE 64
[2018-02-21] MEDS: Bisacodyl 5 MG Tablet 10 MG PO (18:08)
--- NOTE | 2018-02-21 18:54 | NURSING ---
Addendum entered by Chyna Blas 02/22/18 11:47: Dr. Callejas reviewed xray results from last HS, NNO Original Note: Addendum entered by Emilee Jerez 02/21/18 20:57: Dr. Callejas updated. New orders entered. Original Note: PT STATED TO THIS NURSE THAT WHEN SHE TURNED OVER IN BED LAST NIGHT SHE FELT SOMETHING SNAP IN HER LEFT HIP AND THINKS THIS IS WHY SHE IS HURTING SO MUCH. REPORTED TO DARLING MONTALVO
--- NOTE | 2018-02-21 21:10 | RAD_ITS ---
STUDY: X-RAY - PELVIS AND LEFT HIP REASON FOR EXAM: Female, 67 years old. Left hip pain TECHNIQUE: Three views of the pelvis and hip were obtained. COMPARISON: February 04, 2018 FINDINGS: There is contrast in the visualized colon. The soft tissues are unremarkable. The visualized iliac wings, sacroiliac joints and sacrum are unremarkable. No abnormalities are seen in the visualized superior and inferior pubic rami. Normal appearing pubic symphysis. The visualized ischial tuberosities are unremarkable. A aura and hip nail are stable in appearance in the proximal left femur. A subacute fracture is present in the intertrochanteric region of the left femur. The acetabulum shows no significant abnormalities. The hip joint is normal in appearance. RAD/Hip 2-3 Views with Pelvis IMPRESSION: Surgical changes are stable in the proximal left femur. The hardware appears stable and intact. There are no acute abnormalities or changes. Electronically Signed: Ree Fofana MD at 21:36 EDT Tel Direct: [phone], Service support ,
[2018-02-22] MEDS: oxyCODONE 5 MG Tablet PO ×3 (02:51→20:05)
[2018-02-22] MEDS: oxyCODONE CR 15 MG Tablet PO ×2 (06:42→16:52)
[2018-02-22 06:43] VITALS: BP 103/76; PULSE 66
[2018-02-22] MEDS: Metoprolol Tartrate 25 MG Tablet PO ×2 (06:43→16:52)
[2018-02-22] MEDS: Polyethylene Glycol 3350 17 GM PACKET PO (06:43)
[2018-02-22] MEDS: Flecainide 150 MG Tablet PO ×2 (06:43→16:51)
[2018-02-22] MEDS: Venlafaxine XR 75 MG Capsule PO ×2 (06:43→16:51)
[2018-02-22] MEDS: Acetaminophen 500 MG Tablet 1000 MG PO ×3 (06:43→20:02)
[2018-02-22] MEDS: Lisinopril 10 MG Tablet PO (06:43)
[2018-02-22] MEDS: Senna/Docusate Sodium 1 Tablet 2 TABLET PO ×2 (06:44→16:51)
[2018-02-22] MEDS: Pramipexole Di-HCl 0.5 MG Tablet PO ×3 (06:44→20:02)
[2018-02-22] MEDS: guaiFENesin 1,200 MG Tablet 1200 MG PO ×2 (06:44→16:52)
[2018-02-22] MEDS: Pantoprazole Sodium 40 MG Tablet PO ×2 (06:44→16:51)
[2018-02-22] MEDS: Fluticasone/Salmeterol 232-14 Inhaler 1 PUFF IH ×2 (06:49→16:51)
[2018-02-22] MEDS: Fluticasone 0.05% 1 SPRAY NASAL.SRY NASAL (06:50)
[2018-02-22] MEDS: Enoxaparin 40 MG/0.4 ML Syringe SC (06:51)
[2018-02-22] MEDS: Nystatin Powder 15gm Bottle 1 APPLIC TOPICAL ×3 (06:53→20:08)
[2018-02-22] MEDS: Menthol/Lanolin/Calamine/Znox 113 GM Tube 1 APPLIC TOPICAL ×4 (06:54→20:08)
[2018-02-22 08:17] VITALS: O2SAT 95
[2018-02-22] MEDS: Iron Polysaccharide Complex 150 MG CAPSULE PO (09:02)
[2018-02-22 10:00] VITALS: PULSE 62; RESP 18; O2SAT 96
[2018-02-22] MEDS: LORazepam 0.5 MG Tablet PO (14:04)
[2018-02-22 15:43] VITALS: BP 108/48; PULSE 64; RESP 18; TEMP 35.8
[2018-02-22 16:52] VITALS: PULSE 64
[2018-02-22] MEDS: Ondansetron ODT 4 MG Tablet PO (22:41)
[2018-02-22] MEDS: Baclofen 10 MG Tablet PO (22:41)
--- NOTE | 2018-02-22 22:43 | NURSING ---
pt complains of generalize pain and nausea to stomach given prn zofran and baclofan at this time.
[2018-02-23] MEDS: oxyCODONE 5 MG Tablet PO ×3 (01:37→12:45)
[2018-02-23] MEDS: oxyCODONE CR 15 MG Tablet PO ×2 (06:16→17:49)
[2018-02-23] MEDS: Lisinopril 10 MG Tablet PO (06:17)
[2018-02-23] MEDS: guaiFENesin 1,200 MG Tablet 1200 MG PO ×2 (06:17→17:49)
[2018-02-23] MEDS: Flecainide 150 MG Tablet PO ×2 (06:17→17:50)
[2018-02-23] MEDS: Senna/Docusate Sodium 1 Tablet 2 TABLET PO ×2 (06:18→17:50)
[2018-02-23] MEDS: Venlafaxine XR 75 MG Capsule PO ×2 (06:18→17:49)
[2018-02-23] MEDS: Pramipexole Di-HCl 0.5 MG Tablet PO ×3 (06:18→21:24)
[2018-02-23] MEDS: Pantoprazole Sodium 40 MG Tablet PO ×2 (06:18→17:50)
[2018-02-23] MEDS: Acetaminophen 500 MG Tablet 1000 MG PO ×3 (06:18→21:24)
[2018-02-23 06:21] VITALS: BP 112/67; PULSE 68
[2018-02-23] MEDS: Metoprolol Tartrate 25 MG Tablet PO ×2 (06:21→17:49)
[2018-02-23] MEDS: Enoxaparin 40 MG/0.4 ML Syringe SC (06:23)
[2018-02-23] MEDS: Fluticasone/Salmeterol 232-14 Inhaler 1 PUFF IH ×2 (06:26→17:49)
[2018-02-23] MEDS: Fluticasone 0.05% 1 SPRAY NASAL.SRY NASAL (06:27)
[2018-02-23] MEDS: Nystatin Powder 15gm Bottle 1 APPLIC TOPICAL ×3 (06:28→21:25)
[2018-02-23] MEDS: Menthol/Lanolin/Calamine/Znox 113 GM Tube 1 APPLIC TOPICAL ×4 (06:29→21:24)
[2018-02-23 06:50] VITALS: O2SAT 93
[2018-02-23 07:10] VITALS: PULSE 68; RESP 18; O2SAT 93
[2018-02-23] MEDS: Iron Polysaccharide Complex 150 MG CAPSULE PO (08:16)
[2018-02-23] MEDS: LORazepam 0.5 MG Tablet PO (13:58)
[2018-02-23 16:00] VITALS: BP 115/52; PULSE 63; RESP 18; TEMP 35.9; O2SAT 98
[2018-02-23 17:49] VITALS: BP 115/52; PULSE 63
--- NOTE | 2018-02-23 21:07 | PCM.TCUNOT ---
Subjective: Resident seen in room, lying in bed, just finished breakfast. She is complaining of left foot pain, there is pain in the arch, and it is sharp and sometimes debilitating, appears to be neuropathic in nature. Resident has underlying anxiety, she needs positive reinforcement, and encouragement. She is actually slowly improving in therapy, and her anxiety level while still present, seems less than when she arrived on TCU. Vitals/I&O's: Vital Signs Temp Pulse Resp BP Pulse Ox 96.6 F L 63 18 115/52 L 98 02/23/18 16:00 02/23/18 17:49 02/23/18 16:00 02/23/18 17:49 02/23/18 16:00 Oxygen Flow Rate (L/min) 3 Oxygen Delivery Method Nasal Cannula Weight: 118.444 kg Body Mass Index (BMI) 45.9 Intake and Output for Last 24 Hours 02/21/18 02/22/18 02/23/18 23:59 23:59 23:59 Intake Total 580 / 580 660 / 660 680 / 680 Output Total 425 / 425 600 / 600 300 / 300 Balance 155 / 155 60 / 60 380 / 380 Past Medical History Past Medical History (Chronic Problems): Chronic Problems (Last Reviewed 01/19/18 @ 16:26 by Aleyda Mendez) ESPERANZA (obstructive sleep apnea) (Chronic) Chronic respiratory failure with hypoxia (Chronic) Anxiety (Chronic) Depression (Chronic) Osteoarthritis (Chronic) Pulmonary nodules (Chronic) Left ventricular hypertrophy (Chronic) Tobacco dependence (Chronic) [id number]-nhgn smoking history Back pain (Chronic) Super 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) Chronic systolic heart failure (Chronic) Muscle spasm (Chronic) GERD (gastroesophageal reflux disease) (Chronic) Chronic combined systolic and diastolic CHF (congestive heart failure) (Chronic) Non-sustained ventricular tachycardia (Chronic) Dysmetabolic syndrome (Chronic) Hypertension (Chronic) 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) 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) Paroxysmal atrial fibrillation (Chronic) Asthma (Chronic) COPD (chronic obstructive pulmonary disease) (Chronic) Medical History: Medical History (Last Reviewed 01/19/18 @ 16:26 by Aleyda Mendez) Chronic combined systolic and diastolic CHF (congestive heart failure) (Chronic) I50.42 Non-sustained ventricular tachycardia (Chronic) I47.2 Dysmetabolic syndrome (Chronic) E88.81 Hypertension (Chronic) I10 Paroxysmal atrial fibrillation (Chronic) I48.0 Asthma (Chronic) J45.909 COPD (chronic obstructive pulmonary disease) (Chronic) J44.9 Chronic back pain M54.9, G89.29 Chronic bronchitis J42 GERD (gastroesophageal reflux disease) K21.9 Kidney disease, chronic, stage III (GFR 30-59 ml/min) N18.3 blood clots Allergies ciprofloxacin [From Cipro] Adverse Reaction (Intermediate, Verified 01/28/18 10:32) Other messes with her heart medicine Home Medications: Ambulatory Orders Medication Instructions Recorded Albuterol Inhaler [Ventolin Hfa] 1 puff INHALATION Q4H PRN PRN 08/08/13 Fluticasone 0.05% [Flonase Nasal 1 spray NASAL DAILY 08/08/13 [place]] Ipratropium [Atrovent Aerosols] 0.25 mg INHALATION TID 08/08/13 Lisinopril [Zestril] 10 mg PO DAILY 08/08/13 Ropinirole HCl [Requip] 1 mg PO TID 02/18/14 flecainide 150 mg tablet 150 mg PO BID 08/16/17 lorazepam 0.5 mg tablet 0.5 mg PO QDAY PRN #10 tab 11/08/17 Furosemide [Lasix] 40 mg PO 0800 01/28/18 Venlafaxine HCl [Venlafaxine HCl 75 mg PO BID 01/28/18 ER] Budesonide/Formoterol 160/4.5 2 inhaler BID 01/30/18 Albuterol Aerosols [Ventolin 2.5 mg INHALATION Q2H PRN PRN 02/01/18 Aerosols] vial.neb. Enoxaparin [Lovenox] 40 mg SC DAILY@0600 02/01/18 Fluticasone/Salmeterol 1 puff INHALATION BID 02/01/18 [Fluticasone-Salmeterol 232-14] Mag Hydrox/Al Hydrox/Simeth 30 ml PO Q6H PRN PRN udc 02/01/18 [Mylanta II] Magnesium Hydroxide [Milk Of 30 ml PO DAILY PRN PRN udc 02/01/18 Magnesia] Metoprolol Tartrate [Lopressor 25 mg PO BID 02/01/18 (beta bairon)] Omeprazole [Prilosec] 40 mg PO BID 02/01/18 Oxycodone [Oxyir] 5 mg PO Q4H PRN PRN #30 tab 02/01/18 Surgical History: Surgical History (Last Reviewed 01/19/18 @ 16:26 by Aleyda Mednez) H/O hysterectomy with oophorectomy H/O tubal ligation Z98.51 heart cath knee surgery H/O cardiac radiofrequency ablation Onset Date: ~09/03/13 Z98.890 Surgical History: hysterectomy, - - tubal ligation, oophorectomy, knee surgery, status post cardiac radiofrequency ablation, cardiac catheterization, Left hip ORIF intramedullary nail. Psychiatric History: Anxiety, Depression, - - Non-compliance. PURCHASE ORDER CHECKER History: No pertinent PURCHASE ORDER CHECKER history Lives: Alone Smoking Status: Former smoker - 90 pack year smoking history. Tobacco Use: Non-smoker Alcohol: None Drugs: None - *Family History Maternal Family History: Family History (Last Reviewed 01/19/18 @ 16:26 by Aleyda Mendez) Mother Heart disease Arthritis blood clots Hypertension Father arthrits Cancer Brother Cancer Aunt Breast cancer Depression Ovarian cancer Grandmother CVA (cerebral vascular accident) Aunt Diabetes History Items: Heart Disease, Hypertension, - - Blood clot Paternal Family History: Family History (Last Reviewed 01/19/18 @ 16:26 by Aleyda Mendez) Mother Heart disease Arthritis blood clots Hypertension Father arthrits Cancer Brother Cancer Aunt Breast cancer Depression Ovarian cancer Grandmother CVA (cerebral vascular accident) Aunt Diabetes History Items: Cancer - Lung cancer Review of Systems Constitutional: Denies: Chills, Fever, Weight Change HEENT: Denies: Head Aches, Sinus Congestion, Sinus Drainage Cardiovascular: Denies: Chest Pain, Palpitations Respiratory: Denies: Cough, Shortness of breath at rest, Sputum production Gastrointestinal: Denies: Abdominal Pain, Nausea, Vomiting Genitourinary: Denies: Dysuria Musculoskeletal: Denies: Joint Pain, Joint Tenderness Skin: Denies: Rash, Wounds Neurological: Reports: - - Sharp left foot pain.. Denies: Focal weakness, Numbness, Tingling Psychiatric: Denies: Anxiety, Depression, Homicidal Ideations, Suicidal Ideations Hematologic/ Lymphatic: Denies: Easy Bruising, Easy Bleeding Patient Problems: Active and Suspected Problems (Last Reviewed 01/19/18 @ 16:26 by Aleyda Mendez) Fall (Acute) Closed left hip fracture (Acute) - Physical Exam General: Alert, Oriented x3, Cooperative HEENT: Atraumatic, PERRLA, EOMI, Normocephalic Neck: Supple, No JVD, Negative Carotid Bruits Lungs: Clear to auscultation, Normal air movement Cardiovascular: Regular rate, No murmurs Abdomen: Bowel Sounds Present, Soft, Non Tender Extremities: No edema, Capillary Refill Less than 3 Seconds Skin: No rashes, No breakdown, Incision - Left hip small dehiscence distally. Musculoskeletal: No Tenderness to Palpation of Joints or Extremities Neurological: Cranial nerves II-XII grossly intact Psych/Mental Status: Normal Affect, Appropriate Vital Signs Temp Pulse Resp BP Pulse Ox 96.6 F L 63 18 115/52 L 98 02/23/18 16:00 02/23/18 17:49 02/23/18 16:00 02/23/18 17:49 02/23/18 16:00 Oxygen Flow Rate (L/min) 3 Oxygen Delivery Method Nasal Cannula Weight: 118.444 kg Body Mass Index (BMI) 45.9 Intake and Output for Last 24 Hours 02/21/18 02/22/18 02/23/18 23:59 23:59 23:59 Intake Total 580 / 580 660 / 660 680 / 680 Output Total 425 / 425 600 / 600 300 / 300 Balance 155 / 155 60 / 60 380 / 380 Assessment/Plan All Active Problems (Last Reviewed 01/19/18 @ 16:26 by Aleyda Mendez) Hip fracture (Acute) Noncompliance (Acute) Acute kidney injury (Acute) Fall (Acute) Closed left hip fracture (Acute) 67 year old female with below past medical history hospitalized for left hip fracture, underwent left hip ORIF intramedullary nail fixation per Dr. Yoseph Murillo 01/29/2018, complicated by non-compliant obstructive sleep apnea, hypotension, sedation for narcotic medications, admitted to TCU with debility, here for rehabilitation, strengthening, prior to discharge home. Debility - PT/OT. Pain - Tylenol 1000MG Q8H, Oxycontin 15MG twice daily, Oxycodone 5MG- 10MG Q4H PRN moderate pain, BenGay TID PRN. Bowel - Miralax 17GM daily, Senna/colace 2 tablets BID, Dulcolax 10MG PO daily PRN. Pneumonia vaccination - Administer Prevnar 13 and/or Pneumovax 23 as necessary. DVT prophylaxis - Lovenox 40MG SC daily. COPD - Advair inhaler 1 puff BID, Spiriva 18MCG daily, Albuterol 2.5MG Q2H PRN, Ventolin MDI 1 puff Q4H PRN. Atrial Fibrillation - Metoprolol 25MG BID, Flecainide 150MG BID. Allergic Rhinitis - Flonase 1 spray daily, Atrovent 0.25MG TID. Chronic systolic heart failure - Metoprolol 25MG BID, Lisinopril 10MG daily, Lasix 40MG daily. Anxiety - Ativan 0.5MG Q4H PRN. GERD - Pantoprazole 40MG BID, Mylanta II 30ML Q4H PRN. Restless Legs Syndrome - Ropinirole 1MG TID. Depression - Venlafaxine 75MG BID. Muscle spasm - Baclofen 10MG TID PRN. Neuropathic pain - Gabapentin 300MG QHS. Congestion - Mucinex 1200MG BID. Iron deficiency anemia - Ferrex 150MG daily. Skin irritation - Calmoseptine 4x/day. Tinea Corporis - Nystatin powder TID. Nausea - Zofran 4MG Q6H PRN.
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
[2018-02-23] MEDS: Gabapentin 300 MG Capsule PO (21:24)
[2018-02-23] MEDS: Ondansetron ODT 4 MG Tablet PO (22:33)
[2018-02-24] MEDS: Fluticasone/Salmeterol 232-14 Inhaler 1 PUFF IH ×2 (04:26→18:50)
[2018-02-24] MEDS: Fluticasone 0.05% 1 SPRAY NASAL.SRY NASAL (04:27)
[2018-02-24] MEDS: Polyethylene Glycol 3350 17 GM PACKET PO (04:28)
[2018-02-24] MEDS: guaiFENesin 1,200 MG Tablet 1200 MG PO ×2 (04:30→18:47)
[2018-02-24] MEDS: Flecainide 150 MG Tablet PO ×2 (04:31→18:47)
[2018-02-24] MEDS: Senna/Docusate Sodium 1 Tablet 2 TABLET PO ×3 (04:31→22:25)
[2018-02-24] MEDS: Menthol/Lanolin/Calamine/Znox 113 GM Tube 1 APPLIC TOPICAL ×4 (04:31→22:22)
[2018-02-24] MEDS: Lisinopril 10 MG Tablet PO (04:31)
[2018-02-24] MEDS: Venlafaxine XR 75 MG Capsule PO ×2 (04:31→18:49)
[2018-02-24] MEDS: Pramipexole Di-HCl 0.5 MG Tablet PO ×3 (04:31→22:22)
[2018-02-24] MEDS: Pantoprazole Sodium 40 MG Tablet PO ×2 (04:31→18:47)
[2018-02-24] MEDS: Enoxaparin 40 MG/0.4 ML Syringe SC (04:32)
[2018-02-24] MEDS: Nystatin Powder 15gm Bottle 1 APPLIC TOPICAL ×3 (04:32→22:22)
[2018-02-24] MEDS: oxyCODONE CR 15 MG Tablet PO ×2 (04:32→18:47)
[2018-02-24 04:33] VITALS: BP 119/80; PULSE 68
[2018-02-24] MEDS: Metoprolol Tartrate 25 MG Tablet PO ×2 (04:33→18:47)
[2018-02-24] MEDS: Acetaminophen 500 MG Tablet 1000 MG PO ×3 (05:20→22:22)
[2018-02-24 08:30] VITALS: O2SAT 93
[2018-02-24] MEDS: Iron Polysaccharide Complex 150 MG CAPSULE PO (08:53)
[2018-02-24] MEDS: oxyCODONE 5 MG Tablet PO ×2 (10:07→14:11)
[2018-02-24 15:32] VITALS: BP 109/50; PULSE 72; RESP 24; TEMP 36.5; O2SAT 96
--- NOTE | 2018-02-24 18:40 | NURSING ---
R' was upset and taking off her O2 and would not put it back on even though her spo2 was 88%, She said she would put it back on when she got her pain medicine. After reporting this to - this nurse, she was given her scheduled Oxycontin 15 mg. She is also scheduled tylenol q8hr and gets OxyIr q4hr prn. She put her O2 back on and her spo2 came back to 96%.
[2018-02-24 18:47] VITALS: BP 109/50; PULSE 72
[2018-02-24] MEDS: Gabapentin 300 MG Capsule PO (22:23)
[2018-02-25] MEDS: oxyCODONE 5 MG Tablet PO ×5 (00:06→22:07)
[2018-02-25] MEDS: Menthol/Lanolin/Calamine/Znox 113 GM Tube 1 APPLIC TOPICAL ×4 (05:15→21:42)
[2018-02-25] MEDS: Venlafaxine XR 75 MG Capsule PO ×2 (05:16→17:55)
[2018-02-25] MEDS: Fluticasone 0.05% 1 SPRAY NASAL.SRY NASAL (05:17)
[2018-02-25] MEDS: Fluticasone/Salmeterol 232-14 Inhaler 1 PUFF IH ×2 (05:17→17:56)
[2018-02-25 05:18] VITALS: BP 145/66; PULSE 70
[2018-02-25] MEDS: Metoprolol Tartrate 25 MG Tablet PO (05:18)
[2018-02-25] MEDS: Enoxaparin 40 MG/0.4 ML Syringe SC (05:19)
[2018-02-25] MEDS: Polyethylene Glycol 3350 17 GM PACKET PO (05:19)
[2018-02-25] MEDS: Senna/Docusate Sodium 1 Tablet 2 TABLET PO ×2 (05:20→17:55)
[2018-02-25] MEDS: Pantoprazole Sodium 40 MG Tablet PO ×2 (05:20→17:55)
[2018-02-25] MEDS: Pramipexole Di-HCl 0.5 MG Tablet PO ×3 (05:20→21:43)
[2018-02-25] MEDS: guaiFENesin 1,200 MG Tablet 1200 MG PO ×2 (05:20→17:55)
[2018-02-25] MEDS: Nystatin Powder 15gm Bottle 1 APPLIC TOPICAL ×3 (05:20→21:42)
[2018-02-25] MEDS: Flecainide 150 MG Tablet PO ×2 (05:21→17:55)
[2018-02-25] MEDS: Lisinopril 10 MG Tablet PO (05:21)
[2018-02-25] MEDS: Acetaminophen 500 MG Tablet 1000 MG PO ×3 (05:21→21:41)
[2018-02-25] MEDS: oxyCODONE CR 15 MG Tablet PO ×2 (05:22→17:56)
[2018-02-25 06:39] VITALS: O2SAT 93
[2018-02-25] MEDS: Iron Polysaccharide Complex 150 MG CAPSULE PO (08:46)
[2018-02-25] MEDS: LORazepam 0.5 MG Tablet PO (12:31)
[2018-02-25] MEDS: Mag Hydrox/Al Hydrox/Simeth 30 ML UDC PO (12:44)
[2018-02-25 12:50] VITALS: O2SAT 93
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
[2018-02-25 15:44] VITALS: BP 99/59; PULSE 72; RESP 20; TEMP 36.1; O2SAT 92
[2018-02-25 17:55] VITALS: PULSE 72
[2018-02-25 18:03] VITALS: BP 97/47; PULSE 75
[2018-02-25] MEDS: Gabapentin 300 MG Capsule PO (21:41)
[2018-02-26] MEDS: Menthol/Lanolin/Calamine/Znox 113 GM Tube 1 APPLIC TOPICAL ×4 (05:21→22:05)
[2018-02-26] MEDS: Lisinopril 10 MG Tablet PO (05:22)
[2018-02-26] MEDS: oxyCODONE CR 15 MG Tablet PO ×2 (05:22→17:08)
[2018-02-26] MEDS: Senna/Docusate Sodium 1 Tablet 2 TABLET PO ×2 (05:22→17:08)
[2018-02-26] MEDS: Pantoprazole Sodium 40 MG Tablet PO ×2 (05:22→17:08)
[2018-02-26] MEDS: Acetaminophen 500 MG Tablet 1000 MG PO ×3 (05:23→22:04)
[2018-02-26] MEDS: Pramipexole Di-HCl 0.5 MG Tablet PO ×3 (05:23→22:03)
[2018-02-26] MEDS: Venlafaxine XR 75 MG Capsule PO ×2 (05:23→17:08)
[2018-02-26] MEDS: guaiFENesin 1,200 MG Tablet 1200 MG PO ×2 (05:24→17:08)
[2018-02-26] MEDS: Nystatin Powder 15gm Bottle 1 APPLIC TOPICAL ×3 (05:27→22:04)
[2018-02-26 05:36] VITALS: BP 106/87; PULSE 77
[2018-02-26] MEDS: Metoprolol Tartrate 25 MG Tablet PO ×2 (05:36→17:08)
[2018-02-26] MEDS: Fluticasone 0.05% 1 SPRAY NASAL.SRY NASAL (05:39)
[2018-02-26] MEDS: Fluticasone/Salmeterol 232-14 Inhaler 1 PUFF IH ×2 (05:39→17:07)
[2018-02-26] MEDS: Flecainide 150 MG Tablet PO ×2 (05:42→17:08)
[2018-02-26] MEDS: Polyethylene Glycol 3350 17 GM PACKET PO (05:42)
[2018-02-26] MEDS: Enoxaparin 40 MG/0.4 ML Syringe SC (05:44)
[2018-02-26 06:41] LABS: Absolute Lymphocyte Count 1.04 X10^3/ul (0.83-4.51); Absolute Neutrophil Count 9.6 X10^3/uL (2.0-7.7); Basophil# 0.03 X10^3/uL; Basophil% 0.3 % (0-1); Eosinophil# 0.15 X10^3/uL; Eosinophils% 1.3 % (0-5); Hematocrit 36.4 % (37-47); Hemoglobin 10.7 g/dl (12.0-15.0); Lymphocyte # 1.04 X10^3/ul (4.0); Mean Corp Hgb Conc 29.4 g/gl (32-36); Mean Corpuscular Hgb 29.3 pg (27.0-32.0); Mean Corpuscular Volume 99.7 fL (81-99); Monocyte# 0.78 X10^3/uL; Monocyte% 6.7 % (0-10); Neutrophil # 9.56 X10^3/uL (2.7-7.7); Neutrophil % 82.5 % (47-70); Platelet Count 289 K/mm3 (150-450); RBC Distribution Width CV 16.2 % (11.6-14.6); Red Blood Count 3.65 M/mm3 (4.2-5.4); White Blood Count 11.6 K/mm3 (4.4-11.0)
[2018-02-26 06:42] LABS: Anion Gap 4 (5-15); BUN 28 mg/dL (7-18); BUN/Creat Ratio 23.5 RATIO (10-20); Calcium,Total 8.7 mg/dL (8.5-10.1); Chloride 103 mmol/L (98-107); Creatinine, Serum 1.19 mg/dL (0.55-1.02); EST Glomerular Filtration Rate 48 mL/min (>60); Est Glom Filt Rate - Afr Amer 58 mL/min (>60); Estimated Creatinine Clearance 41.28 ml/min; Glucose 113 mg/dL (74-106); Potassium 5.3 mmol/L (3.5-5.1); Sodium Level 141 mmol/L (136-145)
[2018-02-26 06:44] LABS: POSITIVE COUNT NO; POSITIVE DIFFERENTIAL NO; POSITIVE MORPHOLOGY NO
[2018-02-26 08:14] VITALS: O2SAT 92
[2018-02-26] MEDS: oxyCODONE 5 MG Tablet PO ×2 (09:28→13:15)
[2018-02-26] MEDS: Iron Polysaccharide Complex 150 MG CAPSULE PO (09:28)
[2018-02-26 10:00] VITALS: PULSE 67; RESP 18; O2SAT 96
--- NOTE | 2018-02-26 13:23 | NURSING ---
Pt very tearful and is complaining about staff not paying attention to her. Pt was caught self transferring and is upset that she cannot be up on her own. Pt non compliant with oxygen and has had to be put back on oxygen 3x this day because of low SP02. This nurse talked with Pt 1 on 1. and gave Pt pain medication for her Hip pain. Pt voiced understanding that she cannot self transfer. Lucia HASTINGS aware will continue to monitor.
[2018-02-26] MEDS: LORazepam 0.5 MG Tablet PO (15:21)
[2018-02-26 15:49] VITALS: BP 102/55; PULSE 73; RESP 20; TEMP 36.8; O2SAT 95
--- NOTE | 2018-02-26 16:04 | NURSING ---
dr morales updated on labs, new order to administer kaexylate 30gm and repeat BMP in AM
[2018-02-26] MEDS: Sodium Polystyrene Sulfonate 15 GM/60 ML UDC 30 GM PO (17:02)
[2018-02-26 17:08] VITALS: PULSE 73
[2018-02-26] MEDS: Gabapentin 300 MG Capsule PO (22:03)
[2018-02-27] MEDS: oxyCODONE 5 MG Tablet PO ×3 (00:50→14:40)
[2018-02-27 05:42] VITALS: BP 119/72; PULSE 71
[2018-02-27] MEDS: Pramipexole Di-HCl 0.5 MG Tablet PO ×3 (05:42→21:49)
[2018-02-27] MEDS: Metoprolol Tartrate 25 MG Tablet PO ×2 (05:42→16:39)
[2018-02-27] MEDS: oxyCODONE CR 15 MG Tablet PO ×2 (05:42→16:46)
[2018-02-27] MEDS: guaiFENesin 1,200 MG Tablet 1200 MG PO ×2 (05:43→16:39)
[2018-02-27] MEDS: Pantoprazole Sodium 40 MG Tablet PO ×2 (05:43→16:39)
[2018-02-27] MEDS: Acetaminophen 500 MG Tablet 1000 MG PO ×3 (05:43→21:49)
[2018-02-27] MEDS: Lisinopril 10 MG Tablet PO (05:43)
[2018-02-27] MEDS: Enoxaparin 40 MG/0.4 ML Syringe SC (05:43)
[2018-02-27] MEDS: Venlafaxine XR 75 MG Capsule PO ×2 (05:44→16:38)
[2018-02-27] MEDS: Fluticasone/Salmeterol 232-14 Inhaler 1 PUFF IH ×2 (05:49→16:39)
[2018-02-27] MEDS: Fluticasone 0.05% 1 SPRAY NASAL.SRY NASAL (05:49)
[2018-02-27] MEDS: Flecainide 150 MG Tablet PO ×2 (05:52→16:39)
[2018-02-27] MEDS: Nystatin Powder 15gm Bottle 1 APPLIC TOPICAL ×3 (05:53→21:50)
[2018-02-27] MEDS: Menthol/Lanolin/Calamine/Znox 113 GM Tube 1 APPLIC TOPICAL ×4 (05:53→21:50)
[2018-02-27 06:14] LABS: Anion Gap 4 (5-15); BUN 26 mg/dL (7-18); Calcium,Total 8.5 mg/dL (8.5-10.1); Chloride 104 mmol/L (98-107); Creatinine, Serum 1.04 mg/dL (0.55-1.02); EST Glomerular Filtration Rate 56 mL/min (>60); Est Glom Filt Rate - Afr Amer 68 mL/min (>60); Estimated Creatinine Clearance 47.23 ml/min; Glucose 102 mg/dL (74-106); Potassium 4.8 mmol/L (3.5-5.1); Sodium Level 142 mmol/L (136-145)
[2018-02-27 07:50] VITALS: O2SAT 90
[2018-02-27] MEDS: Iron Polysaccharide Complex 150 MG CAPSULE PO (10:35)
[2018-02-27] MEDS: Baclofen 10 MG Tablet PO (12:31)
--- NOTE | 2018-02-27 12:33 | CASEMGMT ---
Insurance Clinical update submitted via electronic submission. Will await continued stay determination. Auth # [id number] FELICIA Prince
[2018-02-27 15:45] VITALS: BP 114/62; PULSE 63; RESP 16; TEMP 36.7; O2SAT 92
--- NOTE | 2018-02-27 15:45 | NURSING ---
Vitals obtained. Call light within reach. Sprite & ice provided per request. No other needs/complaints.
[2018-02-27 16:39] VITALS: PULSE 63
[2018-02-27] MEDS: Senna/Docusate Sodium 1 Tablet 2 TABLET PO (16:39)
--- NOTE | 2018-02-27 17:01 | NURSING ---
Pt sitting at edge of bed. No needs. Call light within reach.
[2018-02-27] MEDS: Gabapentin 300 MG Capsule PO (21:49)
[2018-02-27] MEDS: Bisacodyl 5 MG Tablet 10 MG PO (21:54)
[2018-02-27] MEDS: Mag Hydrox/Al Hydrox/Simeth 30 ML UDC PO (23:46)
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
[2018-02-28] MEDS: Acetaminophen 500 MG Tablet 1000 MG PO ×3 (04:59→21:37)
[2018-02-28] MEDS: Lisinopril 10 MG Tablet PO (04:59)
[2018-02-28] MEDS: oxyCODONE CR 15 MG Tablet PO ×2 (05:00→18:06)
[2018-02-28] MEDS: Pantoprazole Sodium 40 MG Tablet PO ×2 (05:00→18:07)
[2018-02-28] MEDS: Flecainide 150 MG Tablet PO ×2 (05:00→18:07)
[2018-02-28] MEDS: Senna/Docusate Sodium 1 Tablet 2 TABLET PO ×2 (05:00→18:07)
[2018-02-28] MEDS: Polyethylene Glycol 3350 17 GM PACKET PO (05:00)
[2018-02-28] MEDS: Pramipexole Di-HCl 0.5 MG Tablet PO ×3 (05:00→21:36)
[2018-02-28] MEDS: Nystatin Powder 15gm Bottle 1 APPLIC TOPICAL ×3 (05:00→21:36)
[2018-02-28 05:01] VITALS: BP 156/78; PULSE 70
[2018-02-28] MEDS: Venlafaxine XR 75 MG Capsule PO ×2 (05:01→18:07)
[2018-02-28] MEDS: Metoprolol Tartrate 25 MG Tablet PO ×2 (05:01→18:07)
[2018-02-28] MEDS: guaiFENesin 1,200 MG Tablet 1200 MG PO ×2 (05:01→18:07)
[2018-02-28] MEDS: Menthol/Lanolin/Calamine/Znox 113 GM Tube 1 APPLIC TOPICAL ×4 (05:01→21:36)
[2018-02-28] MEDS: Fluticasone/Salmeterol 232-14 Inhaler 1 PUFF IH ×2 (05:01→18:08)
[2018-02-28] MEDS: Fluticasone 0.05% 1 SPRAY NASAL.SRY NASAL (05:01)
[2018-02-28] MEDS: Enoxaparin 40 MG/0.4 ML Syringe SC (05:01)
[2018-02-28] MEDS: Iron Polysaccharide Complex 150 MG CAPSULE PO (07:55)
[2018-02-28] MEDS: oxyCODONE 5 MG Tablet PO ×2 (07:55→14:06)
[2018-02-28 11:13] VITALS: O2SAT 92
[2018-02-28] MEDS: LORazepam 0.5 MG Tablet PO ×2 (11:56→16:09)
--- NOTE | 2018-02-28 12:09 | CASEMGMT ---
Insurance Continued stay denied. Last cover day being 03/02/18 with resident to discharge or financial liability to begin on 03/03/18. Auth#[id number] Teresa DUARTE, COMMERCIAL ACCOUNT OFFICER
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
[2018-02-28 16:00] VITALS: BP 135/78; PULSE 70; RESP 20; TEMP 36.4; O2SAT 97
--- NOTE | 2018-02-28 16:26 | CHAPLAIN ---
Type of Pastoral Visit ___ Initial Visit _x__ Follow-up Visit ___ On-call Visit ___ General Patient Visit ___ Spiritual Assessment ___ Family Conference ___ Bereavement ___ Rapid Response ___ Code Blue ___ Other (describe below) Pastoral Care Referral From _x__ Patient ___ Family ___ Nurse ___ Physician ___ Luster Applicator ___ Baton Twirler ___ Other (describe below) Sacrament/Intervention _x__ Active listening ___ Anointing ___ Muslim ___ Bereavement ___ Communion ___ Diane exploration ___ ___ Life review _x__ Prayer ___ Reconciliation ___ Sacrament of Sick _x__ Supportive presence ___ Wedding ___ Other (describe below) Pastoral Comments patient identifies her worry as going home before she can handle it successfully; pt discusses her concern about family and their dependence upon her; pt speaks thankfulness over time and listening ear given by putty worker; prayer welcomed
[2018-02-28 18:07] VITALS: PULSE 70
[2018-02-28 19:45] VITALS: O2SAT 96
--- NOTE | 2018-02-28 20:49 | NURSING ---
Dr. Callejas notified of patient stating that previous in the day she had chest pain and blurry vision. At this time BP 153/91 P 74 and regular O2 96 on 3 liters. Patient has no complaints of chest pain at this time. No new orders given.
[2018-02-28] MEDS: Gabapentin 300 MG Capsule PO (21:36)
[2018-02-28 21:50] VITALS: PULSE 70; RESP 18
[2018-02-28] MEDS: Albuterol 2.5 MG/3 ML VIAL.NEB. INHALATION (21:50)
--- NOTE | 2018-02-28 22:27 | PCM.DC ---
- Discharge Diagnoses Current Active Problems: Current Active and Chronic Problems (Last Reviewed 01/19/18 @ 16:26 by Aleyda Mendez) Fall (Acute) Closed left hip fracture (Acute) Back pain (Chronic) Super 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) Chronic systolic heart failure (Chronic) Muscle spasm (Chronic) GERD (gastroesophageal reflux disease) (Chronic) You will use the following diet at home:: No restrictions, Regular Your food should be the consistency of: Regular Your liquids should be the consistency of: Regular/Thin Discharge Activity: Return to Normal Activity, May Shower, Use Walker Weight Bearing Status: Weight bearing as tolerated Call your doctor if you observe: Fever of 101 or Higher, Inability to urinate, Inability to have a bowel movement, Shortness of breath, Chest pain, Uncontrolled pain Allergies/Adverse Reactions: Allergies ciprofloxacin [From Cipro] Adverse Reaction (Intermediate, Verified 01/28/18 10:32) Other messes with her heart medicine Medications to take at Discharge Albuterol Inhaler [Ventolin Hfa] 1 puff INHALATION Q4H PRN PRN 08/08/13 Fluticasone 0.05% [Flonase Nasal [place]] 1 spray NASAL DAILY 08/08/13 Ipratropium [Atrovent Aerosols] 0.25 mg INHALATION TID 08/08/13 Lisinopril [Zestril] 10 mg PO DAILY 08/08/13 Ropinirole HCl [Requip] 1 mg PO TID 02/18/14 flecainide 150 mg tablet 150 mg PO BID 08/16/17 lorazepam 0.5 mg tablet 0.5 mg PO QDAY PRN #10 tab 11/08/17 Venlafaxine HCl [Venlafaxine HCl ER] 75 mg PO BID 01/28/18 Budesonide/Formoterol 160/4.5 2 inhaler BID 01/30/18 Fluticasone/Salmeterol [Fluticasone-Salmeterol 232-14] 1 puff INHALATION BID 02/01/18 Mag Hydrox/Al Hydrox/Simeth [Mylanta II] 30 ml PO Q6H PRN PRN udc 02/01/18 Metoprolol Tartrate [Lopressor (beta bairon)] 25 mg PO BID 02/01/18 Omeprazole [Prilosec] 40 mg PO BID 02/01/18 Acetaminophen [Tylenol] 1,000 mg PO Q8 tablet 02/28/18 Gabapentin [Neurontin] 300 mg PO QHS #30 cap 02/28/18 Guaifenesin [Mucinex] 1,200 mg PO BID #60 tab 02/28/18 Iron Polysaccharide Complex [Ferrex 150] 150 mg PO DAILYCM #30 cap 02/28/18 Menthol [Bengay Vanishing Scent] 1 applic TOPICAL TID PRN PRN tube 02/28/18 Menthol/Lanolin/Calamine/Znox [Calmoseptine Ointment] 1 applic TOPICAL 4X/DAY tube 02/28/18 Nystatin Powder [Mycostatin Powder] 1 applic TOPICAL TID bottle 02/28/18 Ondansetron [Zofran Odt] 4 mg PO Q6H PRN PRN #60 tab 02/28/18 Oxycodone CR [Oxycontin] 15 mg PO BID #14 tab 02/28/18 Oxycodone [Oxyir] 5 mg PO Q4H PRN PRN #30 tab 02/28/18 Polyethylene Glycol 3350 [Miralax] 17 gm PO DAILY #30 packet 02/28/18 Venlafaxine XR [Effexor Xr] 75 mg PO BID capsule 02/28/18 The following prescriptions were given: Oxycodone [Oxyir] 5 mg PO Q4H PRN PRN #30 tab PRN Reason: Moderate Pain (pain scale 4-5) Ondansetron [Zofran Odt] 4 mg PO Q6H PRN PRN #60 tab PRN Reason: NAUSEA Gabapentin [Neurontin] 300 mg PO QHS #30 cap Iron Polysaccharide Complex [Ferrex 150] 150 mg PO DAILYCM #30 cap Polyethylene Glycol 3350 [Miralax] 17 gm PO DAILY #30 packet Guaifenesin [Mucinex] 1,200 mg PO BID #60 tab Oxycodone CR [Oxycontin] 15 mg PO BID #14 tab Primary Care Physician: Reagan He MD [Primary Care Provider] - Please follow up with your Primary Care Physician in: 1 week. Please Follow Up With: Dr. Yoseph Murillo When: 10-14 days Please Follow Up With: When: 2 weeks. Please Follow Up With: Dr Murillo Proposed Discharge Date: 03/03/18
--- NOTE | 2018-02-28 22:29 | PCM.DC.SUM ---
Discharge Date and Diagnosis - Problem List Patient Problems: Active and Suspected Problems (Last Reviewed 01/19/18 @ 16:26 by Aleyda Mendez) Fall (Acute) Closed left hip fracture (Acute) Date of Admission: 02/01/18 Date of Discharge: 03/03/18 - Primary Discharge Diagnosis Active and Suspected Problems (Last Reviewed 01/19/18 @ 16:26 by Aleyda Mendez) Fall (Acute) Closed left hip fracture (Acute) - Secondary Discharge Diagnosis Chronic Problems (Last Reviewed 01/19/18 @ 16:26 by Aleyda Mendez) ESPERANZA (obstructive sleep apnea) (Chronic) Chronic respiratory failure with hypoxia (Chronic) Anxiety (Chronic) Depression (Chronic) Osteoarthritis (Chronic) Pulmonary nodules (Chronic) Left ventricular hypertrophy (Chronic) Tobacco dependence (Chronic) [id number] smoking history Back pain (Chronic) Super 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) Chronic systolic heart failure (Chronic) Muscle spasm (Chronic) GERD (gastroesophageal reflux disease) (Chronic) Chronic combined systolic and diastolic CHF (congestive heart failure) (Chronic) Non-sustained ventricular tachycardia (Chronic) Dysmetabolic syndrome (Chronic) Hypertension (Chronic) 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) 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 Cardiomegaly. Hiatal hernia. Electronically Signed: Lolis Chow MD at 19:48 EDT Tel , Service support , Abdomen X-Ray 02/13/18 18:30 IMPRESSION: Nonspecific bowel gas pattern. Electronically Signed: Lolis Chow MD at 19:50 EDT Tel , Service support , Videofluoroscopic Swallow 02/17/18 13:00 IMPRESSION: There was laryngeal penetration improved with drinking via straw and with chin tuck maneuvers during thin and thick liquid swallows. The swallow study findings were discussed with the patient by the speech pathologist at the conclusion of the examination. Please see speech pathology report for more information and recommendations. The procedure was performed by speech pathologist under the direct supervision of myself Electronically Signed: La Chaney MD at 14:17 EDT Tel , Service support , Hip/Pelvis X-Ray 02/21/18 21:10 IMPRESSION: Surgical changes are stable in the proximal left femur. The hardware appears stable and intact. There are no acute abnormalities or changes. Electronically Signed: Ree Fofana MD at 21:36 EDT Tel Direct: [phone], Service support , Labs (Last 48 Hours) 02/27/18 05:20 Sodium 142 Potassium 4.8 Chloride 104 Carbon Dioxide 34.0 H Anion Gap 4 L BUN 26 H Creatinine 1.04 H Estim Creat Clear Calc 47.23 Est GFR (MDRD) Af Amer 68 Est GFR (MDRD) Non-Af 56 L BUN/Creatinine Ratio 25.0 H Glucose 102 Calcium 8.5 Operations: None Procedures: None Summary of Care Provided: The patient is a 67 year old Female with below past medical history hospitalized for left hip fracture, underwent left hip ORIF intramedullary nail fixation per Dr. Yoseph Murillo 01/29/2018, complicated by non-compliant obstructive sleep apnea, hypotension, sedation for narcotic medications, admitted to TCU with debility, here for rehabilitation, strengthening, prior to discharge home. Discharge home alone, resident declined Home Health Services, declined long term. Discharge Diet: No Restrictions Discharge Activity: Return to Normal Activity, May Shower, Use Walker Weight Bearing Status: Weight bearing as tolerated Call your doctor if you observe: Fever of 101 or Higher, Inability to urinate, Inability to have a bowel movement, Shortness of breath, Chest pain, Uncontrolled pain Home Medications: Medications to take at Discharge Albuterol Inhaler [Ventolin Hfa] 1 puff INHALATION Q4H PRN PRN 08/08/13 Fluticasone 0.05% [Flonase Nasal [place]] 1 spray NASAL DAILY 08/08/13 Ipratropium [Atrovent Aerosols] 0.25 mg INHALATION TID 08/08/13 Lisinopril [Zestril] 10 mg PO DAILY 08/08/13 Ropinirole HCl [Requip] 1 mg PO TID 02/18/14 flecainide 150 mg tablet 150 mg PO BID 08/16/17 lorazepam 0.5 mg tablet 0.5 mg PO QDAY PRN #10 tab 11/08/17 Venlafaxine HCl [Venlafaxine HCl ER] 75 mg PO BID 01/28/18 Budesonide/Formoterol 160/4.5 2 inhaler BID 01/30/18 Fluticasone/Salmeterol [Fluticasone-Salmeterol 232-14] 1 puff INHALATION BID 02/01/18 Mag Hydrox/Al Hydrox/Simeth [Mylanta II] 30 ml PO Q6H PRN PRN udc 02/01/18 Metoprolol Tartrate [Lopressor (beta bairon)] 25 mg PO BID 02/01/18 Omeprazole [Prilosec] 40 mg PO BID 02/01/18 Acetaminophen [Tylenol] 1,000 mg PO Q8 tablet 02/28/18 Gabapentin [Neurontin] 300 mg PO QHS #30 cap 02/28/18 Guaifenesin [Mucinex] 1,200 mg PO BID #60 tab 02/28/18 Iron Polysaccharide Complex [Ferrex 150] 150 mg PO DAILYCM #30 cap 02/28/18 Menthol [Bengay Vanishing Scent] 1 applic TOPICAL TID PRN PRN tube 02/28/18 Menthol/Lanolin/Calamine/Znox [Calmoseptine Ointment] 1 applic TOPICAL 4X/DAY tube 02/28/18 Nystatin Powder [Mycostatin Powder] 1 applic TOPICAL TID bottle 02/28/18 Ondansetron [Zofran Odt] 4 mg PO Q6H PRN PRN #60 tab 02/28/18 Oxycodone CR [Oxycontin] 15 mg PO BID #14 tab 02/28/18 Oxycodone [Oxyir] 5 mg PO Q4H PRN PRN #30 tab 02/28/18 Polyethylene Glycol 3350 [Miralax] 17 gm PO DAILY #30 packet 02/28/18 Venlafaxine XR [Effexor Xr] 75 mg PO BID capsule 02/28/18 Following Prescrptions Were Given to Patient: Oxycodone [Oxyir] 5 mg PO Q4H PRN PRN #30 tab PRN Reason: Moderate Pain (pain scale 4-5) Ondansetron [Zofran Odt] 4 mg PO Q6H PRN PRN #60 tab PRN Reason: NAUSEA Gabapentin [Neurontin] 300 mg PO QHS #30 cap Iron Polysaccharide Complex [Ferrex 150] 150 mg PO DAILYCM #30 cap Polyethylene Glycol 3350 [Miralax] 17 gm PO DAILY #30 packet Guaifenesin [Mucinex] 1,200 mg PO BID #60 tab Oxycodone CR [Oxycontin] 15 mg PO BID #14 tab Primary Care Physician: Reagan He MD [Primary Care Provider] - Please follow up with your Primary Care Physician in: 1 week. Please Follow Up With: Dr. Yoseph Murillo When: 10-14 days Please Follow Up With: When: 2 weeks. Please Follow Up With: Dr Murillo Disposition: Home Minutes spent on discharge:: 35 Patient Condition:: Stable Medical Necessity - Tobacco Use Smoking Status: Former smoker - 90 pack year smoking history. Tobacco Use: Non-smoker Meaningful Use Info Meaningful Use Diagnoses (Choose all that apply): None applicable
[2018-03-01] MEDS: oxyCODONE 5 MG Tablet PO ×3 (02:18→21:12)
[2018-03-01] MEDS: Menthol/Lanolin/Calamine/Znox 113 GM Tube 1 APPLIC TOPICAL ×4 (05:01→21:37)
[2018-03-01] MEDS: Fluticasone 0.05% 1 SPRAY NASAL.SRY NASAL (05:03)
[2018-03-01] MEDS: Venlafaxine XR 75 MG Capsule PO ×2 (05:03→17:01)
[2018-03-01] MEDS: Pramipexole Di-HCl 0.5 MG Tablet PO ×3 (05:03→21:11)
[2018-03-01] MEDS: Polyethylene Glycol 3350 17 GM PACKET PO (05:03)
[2018-03-01] MEDS: guaiFENesin 1,200 MG Tablet 1200 MG PO ×2 (05:03→17:00)
[2018-03-01] MEDS: Nystatin Powder 15gm Bottle 1 APPLIC TOPICAL ×3 (05:03→21:36)
[2018-03-01] MEDS: Fluticasone/Salmeterol 232-14 Inhaler 1 PUFF IH ×2 (05:03→17:02)
[2018-03-01] MEDS: Enoxaparin 40 MG/0.4 ML Syringe SC (05:03)
[2018-03-01 05:04] VITALS: BP 142/81; PULSE 73
[2018-03-01] MEDS: Pantoprazole Sodium 40 MG Tablet PO ×2 (05:04→17:01)
[2018-03-01] MEDS: Flecainide 150 MG Tablet PO ×2 (05:04→17:00)
[2018-03-01] MEDS: Lisinopril 10 MG Tablet PO (05:04)
[2018-03-01] MEDS: Metoprolol Tartrate 25 MG Tablet PO ×2 (05:04→17:01)
[2018-03-01] MEDS: Acetaminophen 500 MG Tablet 1000 MG PO ×3 (05:04→21:11)
[2018-03-01] MEDS: Senna/Docusate Sodium 1 Tablet 2 TABLET PO ×2 (05:04→17:00)
[2018-03-01] MEDS: oxyCODONE CR 15 MG Tablet PO ×2 (05:06→17:01)
--- NOTE | 2018-03-01 07:03 | NURSING ---
Pt tearful and voicing concerns about discharging home Tuesday. 1:1 support given this morning. Message left with Teresa BARBOUR.
--- NOTE | 2018-03-01 08:55 | NURSING ---
This nurse walking down hallway to assist another Pt when Pt PA sounded. Pt observed to be walking across her room unassisted. When this nurse asked PT why she didnt call for help Pt stated she is being sent home tomorrow it doesnt matter anyway This nurse explained that her safety is imortant to us and the importamce of the call light. Pt stated whatever, who cares i might even fall then what this nurse explained to pt that we do not want her to fall, the alarm is for her safety. Pt not very understanding and is very upset about discharge. DARLING knight
[2018-03-01] MEDS: Bisacodyl 5 MG Tablet 10 MG PO (09:49)
[2018-03-01] MEDS: LORazepam 0.5 MG Tablet PO ×2 (09:50→14:54)
[2018-03-01] MEDS: Iron Polysaccharide Complex 150 MG CAPSULE PO (09:51)
[2018-03-01] MEDS: Mag Hydrox/Al Hydrox/Simeth 30 ML UDC PO (14:54)
[2018-03-01 14:55] VITALS: BP 131/81; PULSE 72; RESP 18; O2SAT 93
--- NOTE | 2018-03-01 14:56 | NURSING ---
Pt up in activity lounge playing lifeaction games, c/o chest pain/pressure in her ears, removed from game and taken to room. Alert and oriented x3, skin warm and dry. Sitting up in wc, vitals taken. Pt describes pain as up mid chest up to rt shoulder and through to back. Denies N/T anywhere, jaw pain, does c/o headache. States I'm so worked up about this insurance stuff. States she is waiting on the manager social media to retun to talk to her. Medicated for anxiety and indigestion. Will notify Dr. Callejas.
[2018-03-01 16:00] VITALS: BP 146/69; PULSE 64; RESP 22; TEMP 36.4; O2SAT 93
[2018-03-01 17:01] VITALS: BP 146/69; PULSE 64
[2018-03-01] MEDS: Gabapentin 300 MG Capsule PO (21:11)
[2018-03-02] MEDS: oxyCODONE 5 MG Tablet PO ×4 (04:39→20:58)
[2018-03-02] MEDS: Enoxaparin 40 MG/0.4 ML Syringe SC (04:41)
[2018-03-02] MEDS: Flecainide 150 MG Tablet PO ×2 (04:41→17:35)
[2018-03-02] MEDS: Lisinopril 10 MG Tablet PO (04:41)
[2018-03-02 04:42] VITALS: BP 138/82; PULSE 69
[2018-03-02] MEDS: Pramipexole Di-HCl 0.5 MG Tablet PO ×3 (04:42→21:00)
[2018-03-02] MEDS: Pantoprazole Sodium 40 MG Tablet PO ×2 (04:42→17:32)
[2018-03-02] MEDS: Metoprolol Tartrate 25 MG Tablet PO ×2 (04:42→17:34)
[2018-03-02] MEDS: guaiFENesin 1,200 MG Tablet 1200 MG PO ×2 (04:42→17:31)
[2018-03-02] MEDS: Venlafaxine XR 75 MG Capsule PO ×2 (04:42→17:32)
[2018-03-02] MEDS: Fluticasone 0.05% 1 SPRAY NASAL.SRY NASAL (04:46)
[2018-03-02] MEDS: Fluticasone/Salmeterol 232-14 Inhaler 1 PUFF IH ×2 (04:47→17:31)
[2018-03-02] MEDS: Nystatin Powder 15gm Bottle 1 APPLIC TOPICAL ×3 (04:49→21:02)
[2018-03-02] MEDS: Menthol/Lanolin/Calamine/Znox 113 GM Tube 1 APPLIC TOPICAL ×4 (04:49→21:03)
[2018-03-02] MEDS: oxyCODONE CR 15 MG Tablet PO ×2 (06:12→17:32)
[2018-03-02] MEDS: Acetaminophen 500 MG Tablet 1000 MG PO ×3 (06:12→21:00)
[2018-03-02 07:12] VITALS: O2SAT 92
[2018-03-02] MEDS: Iron Polysaccharide Complex 150 MG CAPSULE PO (09:18)
[2018-03-02 10:00] VITALS: PULSE 84; RESP 18; O2SAT 96
[2018-03-02] MEDS: LORazepam 0.5 MG Tablet PO (12:57)
--- NOTE | 2018-03-02 14:46 | NURSING ---
pt off unit to Dr Vance appt via , oxygen tank via [place]
--- NOTE | 2018-03-02 14:48 | CASEMGMT ---
Brief interview for mental status (BIMS) and resident mood interview (PHQ-9) completed on this day. BIMS score 05/20. PHQ-9 score 03/01
--- NOTE | 2018-03-02 15:00 | MDS.RN ---
Pain interview for HUGH 03/03/18 completed.
--- NOTE | 2018-03-02 15:04 | CASEMGMT ---
Social Work Telephone call from [facility], resident lost appeal. Last cover day continues to be: 03/02/18 with resident discharge or financial responsibility to begin on 03/03/18. Spoke with resident in room. Resident voicing understanding about appeal and plans to discharge home with daughter on 03/03/18. This social sciences research scientist broaching topic of home health services for physical and occupational therapy as well as a home health aide, social sciences research scientist and skilled nurse. Resident declining all home health services but retirement for dressing changes. This social sciences research scientist reinforcing the importance of following recommendations as team is recommending for resident to have all above mentioned services. Resident voicing understanding, but continues to not agree with any other services but retirement. Resident requesting for home health services to be set up through [facility] ([facility]). Resident is reporting to need a hospital bed and walker at time of discharge. Resident requesting for durable medical equipment to be set up through [facility]. Resident reporting to have home oxygen set up through [facility] at this time and to not need home oxygen set up. Resident daughter to provide transportation home for resident and is aware of all above discharge planning. This social sciences research scientist then also broaching topic of counseling services for resident due to resident anxiety. Resident declining to have this social sciences research scientist set up or make a referral for counseling. Resident daughter is reporting to currently be in family counseling and resident has been attending sessions. This social sciences research scientist encouraging resident to continue with family counseling but to also consider individual counseling or the behavioral program at [facility]. Support given. Telephone call to [facility] Deisy WILSON. This social sciences research scientist making referral for retirement. Order to be completed. Telephone call to Sejal Muñoz. This social sciences research scientist making referral for hospital bed and walker. Order faxed. Sejal to have walker delivered to resident room prior to resident discharge. Proposed discharge date: 03/03/18 PLAN: Discharge home with daughter and home health services. Teresa DUARTE, SYSTEM SUPPORT ANALYST
[2018-03-02 16:00] VITALS: BP 151/90; PULSE 63; RESP 20; TEMP 36.1; O2SAT 96
--- NOTE | 2018-03-02 16:35 | NURSING ---
Pt being discharged home tomorrow, appt made with [facility] for 03/03 at 1330 for incisional tunneling of wound, packing per order. Pt & daughter updated.
[2018-03-02] MEDS: Senna/Docusate Sodium 1 Tablet 2 TABLET PO (17:32)
[2018-03-02 17:34] VITALS: BP 151/90; PULSE 63
--- NOTE | 2018-03-02 17:44 | HHNOTE_ITS ---
Home Health Note - Plan Overview of reason of hospitalization: The patient is a 67 year old Female with below past medical history hospitalized for left hip fracture, underwent left hip ORIF intramedullary nail fixation per Dr. Yoseph Murillo 01/29/2018, complicated by non-compliant obstructive sleep apnea, hypotension, sedation for narcotic medications, admitted to TCU with debility, here for rehabilitation, strengthening, prior to discharge home. Discharge home alone, with Home Health Services. Problems: Patient was seen for (Last Reviewed 01/19/18 @ 16:26 by Aleyda Mendez) Fall (Acute) Closed left hip fracture (Acute) Back pain (Chronic) Super 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) Chronic systolic heart failure (Chronic) Muscle spasm (Chronic) GERD (gastroesophageal reflux disease) (Chronic) Complete List of Medical Problems (Last Reviewed 01/19/18 @ 16:26 by Aleyda Mendez) ESPERANZA (obstructive sleep apnea) (Chronic) Chronic respiratory failure with hypoxia (Chronic) Anxiety (Chronic) Depression (Chronic) Hip fracture (Acute) Osteoarthritis (Chronic) Pulmonary nodules (Chronic) Left ventricular hypertrophy (Chronic) Noncompliance (Acute) Tobacco dependence (Chronic) Acute kidney injury (Acute) Fall (Acute) Closed left hip fracture (Acute) Back pain (Chronic) Super 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) Chronic systolic heart failure (Chronic) Muscle spasm (Chronic) GERD (gastroesophageal reflux disease) (Chronic) Chronic combined systolic and diastolic CHF (congestive heart failure) (Chronic) Non-sustained ventricular tachycardia (Chronic) Dysmetabolic syndrome (Chronic) Hypertension (Chronic) 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) 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
[2018-03-02] MEDS: Gabapentin 300 MG Capsule PO (21:00)
[2018-03-03] MEDS: oxyCODONE 5 MG Tablet PO ×2 (03:49→11:13)
[2018-03-03] MEDS: Ondansetron ODT 4 MG Tablet PO (06:05)
[2018-03-03] MEDS: Acetaminophen 500 MG Tablet 1000 MG PO ×2 (06:08→12:46)
[2018-03-03] MEDS: guaiFENesin 1,200 MG Tablet 1200 MG PO (06:08)
[2018-03-03] MEDS: Lisinopril 10 MG Tablet PO (06:09)
[2018-03-03] MEDS: Pantoprazole Sodium 40 MG Tablet PO (06:09)
[2018-03-03] MEDS: Pramipexole Di-HCl 0.5 MG Tablet PO (06:09)
[2018-03-03] MEDS: Senna/Docusate Sodium 1 Tablet 2 TABLET PO (06:09)
[2018-03-03] MEDS: Venlafaxine XR 75 MG Capsule PO (06:09)
[2018-03-03] MEDS: Fluticasone 0.05% 1 SPRAY NASAL.SRY NASAL (06:09)
[2018-03-03] MEDS: Menthol/Lanolin/Calamine/Znox 113 GM Tube 1 APPLIC TOPICAL (06:09)
[2018-03-03] MEDS: Flecainide 150 MG Tablet PO (06:09)
[2018-03-03] MEDS: Nystatin Powder 15gm Bottle 1 APPLIC TOPICAL (06:10)
[2018-03-03] MEDS: Enoxaparin 40 MG/0.4 ML Syringe SC (06:12)
[2018-03-03] MEDS: Fluticasone/Salmeterol 232-14 Inhaler 1 PUFF IH (06:13)
[2018-03-03 06:18] VITALS: BP 136/100; PULSE 82
[2018-03-03] MEDS: oxyCODONE CR 15 MG Tablet 20 MG PO (06:18)
[2018-03-03] MEDS: Metoprolol Tartrate 25 MG Tablet PO (06:18)
[2018-03-03 07:02] VITALS: O2SAT 93
[2018-03-03] MEDS: Iron Polysaccharide Complex 150 MG CAPSULE PO (09:17)
[2018-03-03 10:45] VITALS: BP 136/74; PULSE 69; PULSE 74; RESP 20; TEMP 36.8; O2SAT 91
[2018-03-03 11:30] VITALS: PULSE 69; RESP 16
[2018-03-03] MEDS: Albuterol 2.5 MG/3 ML VIAL.NEB. INHALATION (11:30)
[2018-03-03] MEDS: LORazepam 0.5 MG Tablet PO (12:51)
--- NOTE | 2018-03-03 12:57 | NURSING ---
nuguaze packing to lt proximal incision, approx 1 depth. no drng noted.
--- NOTE | 2018-03-03 13:46 | CASEMGMT ---
Insurance Notified insurance of resident discharge on 03/03/18 to home with daughter and home health nursing. Auth#[id number] Teresa DUARTE, PEARL STRINGER
== END 2018-03-03 13:00 | disposition home or self-care (01) | DRG 560 ==
PROVIDERS: Admitting Provider Family Medicine Geriatric Medicine; Family Provider Internal Medicine; PCP Internal Medicine; Visit Provider Family Medicine Geriatric Medicine
DX: S72.002D Fracture of unspecified part of neck of left femur, subsequent encounter for closed fracture with routine healing (principal); Z68.42 Body mass index [BMI] 45.0-49.9, adult; J96.11 Chronic respiratory failure with hypoxia; I50.42 Chronic combined systolic (congestive) and diastolic (congestive) heart failure; I13.0 Hypertensive heart and chronic kidney disease with heart failure and stage 1 through stage 4 chronic kidney disease, or unspecified chronic kidney disease; W19.XXXD Unspecified fall, subsequent encounter; J44.9 Chronic obstructive pulmonary disease, unspecified; I48.0 Paroxysmal atrial fibrillation; N18.3 Chronic kidney disease, stage 3 (moderate); M19.90 Unspecified osteoarthritis, unspecified site; K21.9 Gastro-esophageal reflux disease without esophagitis; G47.33 Obstructive sleep apnea (adult) (pediatric); F41.9 Anxiety disorder, unspecified; F32.9 Major depressive disorder, single episode, unspecified; G25.81 Restless legs syndrome; G89.29 Other chronic pain; E66.01 Morbid (severe) obesity due to excess calories; Z71.3 Dietary counseling and surveillance; Z79.899 Other long term (current) drug therapy; Z87.891 Personal history of nicotine dependence; Z91.19 Patient's noncompliance with other medical treatment and regimen; D50.9 Iron deficiency anemia, unspecified; R13.12 Dysphagia, oropharyngeal phase; B35.4 Tinea corporis
CPT/HCPCS: 36415; 71045; 71046; 73502; 74019; 74230; 80048; 81001; 85025; 87070; 87077; 87186; 87205; 92507; 92526; 92610; 94640; 97110; 97116; 97163; 97166; 97530; 97535; 97537; 97802; J7030; 90670

== ENCOUNTER 2018-03-04 15:41 | Inpatient (IN) | payer MEDICARE, SELFPAY ==
[2018-03-04 15:42] VITALS: BP 92/49; PULSE 72; RESP 24; TEMP 37; O2SAT 87; BMI 44.6
--- NOTE | 2018-03-04 15:59 | RAD_ITS ---
STUDY: X-RAY CHEST REASON FOR EXAM: Female, 67 years old. Shortness of breath TECHNIQUE: A single frontal view of the chest was obtained. COMPARISON: February 13, 2018 FINDINGS: The lungs are underaerated. There is dense opacity in the right lung base with obscuring of the diaphragm. There are increased markings in the left lung base with partial obscuring of the diaphragm. There are increased interstitial opacities throughout the lungs. There is no demonstrated pleural abnormality. There is moderate enlargement of the cardiac silhouette. The mediastinum and hilar regions are unremarkable. The central vessels are prominent. There is atherosclerotic calcification of the thoracic aorta. There are diffuse degenerative changes of the visualized spine. There are degenerative changes in both shoulders. There is no demonstrated abnormality of the visualized upper abdomen. RAD/Chest 1 View (Portable) IMPRESSION: Bibasilar opacities likely represent atelectasis, however consolidations cannot be completely excluded. These are slightly more pronounced on the right side. There is moderate enlargement of the cardiac silhouette with mild edema. There is no obvious effusion, although subpulmonic fluid cannot be excluded on the right side. There is probable diffuse fibrosis. Electronically Signed: Ree Fofana MD at 17:11 EDT Tel Direct: [phone], Service support ,
--- NOTE | 2018-03-04 15:59 | EKG12_ITS ---
Test Reason : FALL Blood Pressure : / mmHG Vent. Rate : 069 BPM Atrial Rate : 069 BPM P-R Int : 198 ms QRS Dur : 134 ms QT Int : 462 ms P-R-T Axes : 038 -06 022 degrees QTc Int : 495 ms Normal sinus rhythm Right bundle branch block T wave abnormality, consider lateral ischemia Abnormal ECG Confirmed by BETINA LAMBERT, LUH ([id number]), society editor KENDRA BAE ([id number] on 03/09/2018 3:37:28 PM Referred By: ERIC Confirmed By:LUH MOFFETT MD
[2018-03-04 16:00] VITALS: O2SAT 89
--- NOTE | 2018-03-04 16:03 | RAD_ITS ---
STUDY: X-RAY - LEFT FEMUR REASON FOR STUDY: Female, 67 years old. Pain after fall, recent surgery TECHNIQUE: Frontal and lateral views of the femur were obtained. COMPARISON: February 21, 2018 FINDINGS: Bones: There are no acute osseous abnormalities. There is hardware in the proximal left femur. There is an old fracture in the intertrochanteric region of the left femur. Joints: There are moderate degenerative changes in the left knee. Soft tissues: The soft tissues are unremarkable. RAD/Femur Min 2 Views IMPRESSION: No acute abnormalities are seen in the left upper leg. Electronically Signed: Ree Fofana MD at 18:53 EDT Tel Direct: [phone], Service support ,
--- NOTE | 2018-03-04 16:03 | RAD_ITS ---
STUDY: X-RAY - RIGHT TIBIA AND FIBULA REASON FOR EXAM: Female, 67 years old. Pain after fall TECHNIQUE: Frontal and lateral views of the tibia and fibula were obtained. COMPARISON: None. FINDINGS: Bones: There are no acute osseous abnormalities. Joints: There are moderate degenerative changes in the left knee. Soft tissues: The soft tissues are unremarkable. RAD/Tibia & Fibula 2 Views IMPRESSION: No acute abnormalities are seen in the left lower leg. Electronically Signed: Ree Fofana MD at 18:46 EDT Tel Direct: [phone], Service support ,
--- NOTE | 2018-03-04 16:03 | RAD_ITS ---
STUDY: X-RAY - PELVIS REASON FOR EXAM: Female, 67 years old. Pain after fall TECHNIQUE: Two views of the pelvis were obtained. COMPARISON: None. FINDINGS: There is a non-specific bowel gas pattern. The soft tissues are unremarkable. There are mild degenerative changes in the lower lumbar spine. The visualized iliac wings, sacroiliac joints and sacrum are unremarkable. No abnormalities are seen in the visualized superior and inferior pubic rami. Normal appearing pubic symphysis. The visualized ischial tuberosities are unremarkable. The proximal right femur shows no significant abnormalities. The right acetabulum shows no significant abnormalities. The right hip joint is normal in appearance. There is hardware in the proximal left femur. There is an old fracture in the intertrochanteric region of the left femur. The left acetabulum shows no significant abnormalities. The left hip joint is normal in appearance. RAD/Pelvis 1 or 2 Views IMPRESSION: No acute abnormalities are seen in the pelvis. Electronically Signed: Ree Fofana MD at 18:49 EDT Tel Direct: [phone], Service support ,
--- NOTE | 2018-03-04 16:08 | ED.VISSUMM ---
- ER Visit Summary Date of Service: 03/04/18 Chief Complaint: Fell and complaining of left leg pain. History of Present Illness: The patient is a 67 F status post prior recent left hip fracture with surgery by Dr. Yoseph Murillo approximately a month ago. Patient was in TCU just recently diagnosed in the last day or so. She was at home with try to get on a golf cart today at home and got lightheaded and fell on her buttocks complaint left hip and left leg pain. Denies hitting her head no LOC. She also states she has been more short of breath today. She denies any chest pain or hemoptysis she denies any fever or chills. She does have chronic COPD and is typically on oxygen. Denies pleuritic chest pain Physical Examination: Older female initial blood pressure 92/49 heart rate 72 respiratory 24 she is hypoxic on 5 L she is 87% she states H EENT exam atraumatic. Driving his membranes. Neck nontender no lymphadenopathy. No signs of scalp trauma tenderness. Full range of motion her neck. Lungs diminished in both bases. No rhonchi. Heart regular rate and rhythm rate about 80 no murmur. No peritoneal signs. She is moving all 4 extremities. There is no gross bony deformity. Has mild tenderness to her left hip and left lower leg. No . Both feet are neurovascular intact. Back exam nontender. No spine tenderness. Neurologically she is awake and alert moving all 4 extremities. No focal motor deficits. Test Results: Chest x-ray shows chronic changes no acute process. Pelvic x-ray shows no acute fracture. Left femur x-ray shows no acute fracture. Running changes. Left tib-fib shows no acute abnormality. Both were read by the radiologist and myself. EKG sinus rhythm rate is 69 with a right bundle branch block. Unchanged from January of this year. CBC showed an elevated white count 13.2 with chronic anemia hemoglobin 9.8 which is her baseline. Electrolytes show potassium of 5.4. BUN 30 creatinine 1.37. UA is normal. Troponin is normal. Lactic acid 1.1. CTA of the chest shows no PE nor dissection. There is atelectasis in both lung bases cannot rule out aspiration. Emergency Department Course and Treatment: Older female fall she is also hypoxic and hypotensive. Clinically she looks dehydrated. She will be treated with IV fluids. She will be given morphine for pain and Zofran. Treatment Plan: Patient was treated with IV fluids. She will be given morphine for pain. She is going to be admitted for fall and hypoxia. Prior to admission the hospital so I spoke to obtain a CTA for further evaluation of her hypoxia. Disposition: Admission Impression: Acute fall Left hip pain Acute on chronic hypoxia with a history of COPD requiring O2 Hypotension Status post left hip surgery for fracture Dehydration. This note was generated with [employer] dictation software. It may contain incorrect words, spelling, and punctuation that were not noted in review of the chart prior to signing ED Disposition - Plan for ED Patient: Chief Complaint: Fall Referrals: Reagan He MD [Primary Care Provider] -
[2018-03-04 16:25] VITALS: PULSE 71; RESP 18
[2018-03-04] MEDS: Albuterol 2.5 MG/3 ML VIAL.NEB. INHALATION ×2 (16:25)
[2018-03-04] MEDS: Ondansetron 4 MG/2 ML Vial IV (16:33)
[2018-03-04] MEDS: 0.9% Normal Saline 1,000 ML 1000 ML IV (16:33)
[2018-03-04] MEDS: Morphine 4 MG/ML Syringe IV ×2 (16:33→23:15)
[2018-03-04] MEDS: MethylPREDNISolone 125 MG/2 ML Vial IV (16:33)
[2018-03-04 16:47] LABS: Absolute Lymphocyte Count 1.04 X10^3/ul (0.83-4.51); Absolute Neutrophil Count 11.3 X10^3/uL (2.0-7.7); Basophil# 0.02 X10^3/uL; Basophil% 0.2 % (0-1); Eosinophil# 0.12 X10^3/uL; Eosinophils% 0.9 % (0-5); Hemoglobin 9.8 g/dl (12.0-15.0); Lymphocyte # 1.04 X10^3/ul (4.0); Lymphocyte % 7.9 % (19-41); Mean Corp Hgb Conc 29.7 g/gl (32-36); Mean Corpuscular Hgb 29.2 pg (27.0-32.0); Mean Corpuscular Volume 98.2 fL (81-99); Mean Platelet Vol. 9.2 fl (6.2-12.0); Monocyte# 0.74 X10^3/uL; Monocyte% 5.6 % (0-10); Neutrophil # 11.28 X10^3/uL (2.7-7.7); Neutrophil % 85.2 % (47-70); Platelet Count 304 K/mm3 (150-450); RBC Distribution Width CV 16.2 % (11.6-14.6); RBC Distribution Width SD 58.1 fl (35.1-43.9); Red Blood Count 3.36 M/mm3 (4.2-5.4); White Blood Count 13.2 K/mm3 (4.4-11.0)
[2018-03-04 16:49] LABS: POSITIVE COUNT NO; POSITIVE DIFFERENTIAL NO; POSITIVE MORPHOLOGY NO
[2018-03-04] MEDS: Ipratropium/Albuterol Sulfate 3 ML AMPUL.NEB INHALATION (16:51)
[2018-03-04 16:55] LABS: Anion Gap 4 (5-15); BUN 30 mg/dL (7-18); BUN/Creat Ratio 21.9 RATIO (10-20); Calcium,Total 8.7 mg/dL (8.5-10.1); Chloride 103 mmol/L (98-107); Creatinine, Serum 1.37 mg/dL (0.55-1.02); EST Glomerular Filtration Rate 41 mL/min (>60); Est Glom Filt Rate - Afr Amer 49 mL/min (>60); Estimated Creatinine Clearance 34.41 ml/min; Glucose 105 mg/dL (74-106); Potassium 5.4 mmol/L (3.5-5.1); Sodium Level 140 mmol/L (136-145)
[2018-03-04 17:07] LABS: Lactic Acid 1.1 mmol/L (0.4-2.0)
[2018-03-04 17:24] LABS: Bacteria 0 SEEN /hpf (None Seen); Mucous, Urine 0 SEEN /hpf (<or=2+)
[2018-03-04 17:38] LABS: Color, Urine Yellow (Yellow); Glucose, Dipstick Normal (Normal); Ketone-Dipstick Negative (Negative); Leukocyte Esterase-Dipstick 25 /ul (Negative); Nitrite-Dipstick Negative (Negative); Occult Blood-Urine Negative /ul (Negative); Protein-Dipstick 30 mg/dl (Negative); Specific Gravity, Urine 1.015 (1.002-1.030); Urine Bilirubin Dipstick Negative (Negative); Urine Clarity Sl. Cloudy (Clear); Urine Urobilinogen 1 mg/dl (Normal); Urine pH 6.5 (5.0 - 8.0)
[2018-03-04 18:05] LABS: Hyaline Cast 0-5 SEEN /lpf (0-5); Squamous Epithelial Cells - UA 0-5 SEEN /hpf (5-10)
[2018-03-04 18:08] LABS: White Blood Cells 0-5 SEEN /hpf (0-5)
[2018-03-04 18:11] LABS: Red Blood Cells-Urine 0-5 SEEN /hpf (0-5)
[2018-03-04 18:25] VITALS: BP 115/75; PULSE 74; RESP 18; O2SAT 95
[2018-03-04 20:58] VITALS: BP 121/68; PULSE 74; RESP 17; O2SAT 91
[2018-03-04 22:04] VITALS: BP 130/75; RESP 18; O2SAT 91
--- NOTE | 2018-03-04 22:44 | CT_ITS ---
STUDY: CTA CHEST REASON FOR EXAM: Female, 67 years old. Hypoxia, asthma and COPD. RADIATION DOSAGE (If Supplied By Facility): CTDIvol = ( 16.73 ) mGy, DLP = ( 799.66 ) mGycm TECHNIQUE: The examination was performed with the intravenous administration of 100ml ml of Isovue 370 contrast material. Post-processing of the angiographic images was performed, with multiplanar reformation and 3D reconstruction. Individualized dose optimization techniques were used for this CT. COMPARISON: None. FINDINGS: Normal enhancement of the main pulmonary artery and right and left pulmonary arteries. Normal enhancement of the bilateral peripheral pulmonary arteries. There is no demonstrated pulmonary embolism. Normal thoracic aorta and visualized great vessels. There is no demonstrated aortic dissection. Normal heart and pericardium. Normal mediastinum. There are calcified right hilar lymph nodes. Normal visualized trachea and bronchi. The lungs are well expanded. Bilateral lower lobe linear regions of consolidation and airspace disease, right greater than left are present. Underlying aspiration not excluded. Incidental right upper lobe lower segment calcified granulomas present. Underlying COPD changes are present throughout the lung parenchyma. Normal pleura. Normal chest wall structures. There are degenerative changes of thoracic spine. Moderate hiatal hernia is present. CT/CTA Chest W/WO Contrast IMPRESSION: 1. No evidence of pulmonary embolism or aortic dissection. 2. Bilateral lower lobe linear segment areas of airspace disease/consolidation with underlying aspiration pneumonia not excluded, clinically correlate. Electronically Signed: Bandar Burrell DO at 23:38 EDT , Service support ,
--- NOTE | 2018-03-04 23:49 | HP.PCM_ITS ---
Problem List (1) Weakness Status: Acute (2) Shortness of breath Status: Acute History of Present Illness Date of Admission: 03/04/18 Chief Complaint: Increased shortness of breath, weakness, fall on left hip The patient is a 67 year old F who was seen in the emergency room at [facility] after sustaining a fall at home due to severe weakness in her legs and inability to ambulate. Patient was discharged from TCU rehab yesterday after spending approximately a month there after rehab and therefore a left hip fracture sustained in late January 2018. Patient states that while she was in TCU, she was on oxygen but when she was discharged to home no arrangements were made to provide her oxygen. Patient does complain of increased shortness of breath, she denies any chest pain, cough with sputum production, chills, or fever. Evaluation in the emergency room included x-rays of her left tib-fib, left femur , and pelvis-all of which were negative for acute abnormalities. Patient had a chest x-ray performed which showed bibasilar areas consistent with atelectasis, cardiomegaly and mild edema was noted to be present in the lung. Patient required 5 L of O2 to maintain her pulse ox above 90, patient's lab was remarkable for a white blood cell count of 13.2, hemoglobin was 9.8, UA was unremarkable, creatinine was elevated at 1.37, BUN was 30, potassium was 5.4. On examination, patient had inspiratory rales at the bases bilaterally and some scattered wheezes over both lung alejo. After consulting with the emergency room physician, I requested that a CT of her chest be performed to rule out any evidence of PE, this came back negative for PE but was read out as possible aspiration pneumonia. I feel the patient does not have pneumonia at this time , I think is likely that she has atelectasis and COPD and requires chronic oxygen at home, she will need further strengthening and will need to be admitted to [facility], she will have PT and OT, I will place her on aerosol treatments and obtain a BNP. Past Medical History Past Medical History (Chronic Problems): Chronic Problems (Last Updated 03/05/18 @ 00:52 by Joel Villasenor DO) ESPERANZA (obstructive sleep apnea) (Chronic) Chronic respiratory failure with hypoxia (Chronic) Anxiety (Chronic) Depression (Chronic) Osteoarthritis (Chronic) Pulmonary nodules (Chronic) Left ventricular hypertrophy (Chronic) Back pain (Chronic) Super 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) GERD (gastroesophageal reflux disease) (Chronic) Non-sustained ventricular tachycardia (Chronic) Dysmetabolic syndrome (Chronic) Hypertension (Chronic) 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) shelter current use of antiarrhythmic medical therapy (Chronic) Paroxysmal atrial fibrillation (Chronic) Asthma (Chronic) COPD (chronic obstructive pulmonary disease) (Chronic) Medical History: Medical History (Last Reviewed 01/19/18 @ 16:26 by Aleyda Menedz) Chronic combined systolic and diastolic CHF (congestive heart failure) (Resolved ) I50.42 Non-sustained ventricular tachycardia (Chronic) I47.2 Dysmetabolic syndrome (Chronic) E88.81 Hypertension (Chronic) I10 Paroxysmal atrial fibrillation (Chronic) I48.0 Asthma (Chronic) J45.909 COPD (chronic obstructive pulmonary disease) (Chronic) J44.9 Chronic back pain M54.9, G89.29 Chronic bronchitis J42 GERD (gastroesophageal reflux disease) K21.9 Kidney disease, chronic, stage III (GFR 30-59 ml/min) N18.3 blood clots Allergies ciprofloxacin [From Cipro] Adverse Reaction (Intermediate, Verified 01/28/18 10: 32) Other messes with her heart medicine Home Medications: Ambulatory Orders Medication Instructions Recorded Albuterol Inhaler [Ventolin Hfa] 1 puff INHALATION Q4H PRN PRN 08/08/13 Fluticasone 0.05% [Flonase Nasal 1 spray NASAL DAILY 08/08/13 [place]] Ipratropium [Atrovent Aerosols] 0.25 mg INHALATION TID 08/08/13 Lisinopril [Zestril] 10 mg PO DAILY 08/08/13 Ropinirole HCl [Requip] 1 mg PO TID 02/18/14 flecainide 150 mg tablet 150 mg PO BID 08/16/17 lorazepam 0.5 mg tablet 0.5 mg PO QDAY PRN #10 tab 11/08/17 Venlafaxine HCl [Venlafaxine HCl 75 mg PO BID 01/28/18 ER] Budesonide/Formoterol 160/4.5 2 inhaler BID 01/30/18 Fluticasone/Salmeterol 1 puff INHALATION BID 02/01/18 [Fluticasone-Salmeterol 232-14] Mag Hydrox/Al Hydrox/Simeth 30 ml PO Q6H PRN PRN udc 02/01/18 [Mylanta II] Metoprolol Tartrate [Lopressor 25 mg PO BID 02/01/18 (beta bairon)] Omeprazole [Prilosec] 40 mg PO BID 02/01/18 Acetaminophen [Tylenol] 1,000 mg PO Q8 tablet 02/28/18 Gabapentin [Neurontin] 300 mg PO QHS #30 cap 02/28/18 Guaifenesin [Mucinex] 1,200 mg PO BID #60 tab 02/28/18 Iron Polysaccharide Complex 150 mg PO DAILYCM #30 cap 02/28/18 [Ferrex 150] Menthol [Bengay Vanishing Scent] 1 applic TOPICAL TID PRN PRN tube 02/28/18 Menthol/Lanolin/Calamine/Znox 1 applic TOPICAL 4X/DAY tube 02/28/18 [Calmoseptine Ointment] Nystatin Powder [Mycostatin Powder] 1 applic TOPICAL TID bottle 02/28/18 Ondansetron [Zofran Odt] 4 mg PO Q6H PRN PRN #60 tab 02/28/18 Oxycodone [Oxyir] 5 mg PO Q4H PRN PRN #30 tab 02/28/18 Polyethylene Glycol 3350 [Miralax] 17 gm PO DAILY #30 packet 02/28/18 Oxycodone CR [Oxycontin] 20 mg PO BID 03/04/18 Surgical History: Surgical History (Last Reviewed 01/19/18 @ 16:26 by Aleyda Mendez) H/O hysterectomy with oophorectomy H/O tubal ligation Z98.51 heart cath knee surgery H/O cardiac radiofrequency ablation Onset Date: ~09/03/13 Z98.890 Surgical History: hysterectomy, - - tubal ligation, oophorectomy, knee surgery, status post cardiac radiofrequency ablation, cardiac catheterization, Left hip ORIF intramedullary nail. Psychiatric History: Anxiety, Depression, - - Non-compliance. PHONE MANAGER History: No pertinent PHONE MANAGER history Lives: With Family Smoking Status: Never smoker Tobacco Use: Non-smoker Alcohol: None Drugs: None - *Family History Maternal Family History: Family History (Last Reviewed 01/19/18 @ 16:26 by Aleyda Mendez) Mother Heart disease Arthritis blood clots Hypertension Father arthrits Cancer Brother Cancer Aunt Breast cancer Depression Ovarian cancer Grandmother CVA (cerebral vascular accident) Aunt Diabetes History Items: Heart Disease, Hypertension, - - Blood clot Paternal Family History: Family History (Last Reviewed 01/19/18 @ 16:26 by Aleyda Mendez) Mother Heart disease Arthritis blood clots Hypertension Father arthrits Cancer Brother Cancer Aunt Breast cancer Depression Ovarian cancer Grandmother CVA (cerebral vascular accident) Aunt Diabetes History Items: Cancer - Lung cancer Review of Systems Constitutional: Reports: Weakness, Fatigue. Denies: Anorexia, Chills, Fever, Night Sweats, Malaise, Weight Change Eyes: Denies: Blurred vision, Cataracts, Conjunctivae Inflammation, Double vision, Drainage HEENT: Denies: Difficulty Hearing, Difficulty Swallowing, Dysphasia, Ear Pain, Eye Pain, Head Aches, Hearing Changes, Nasal bleeding, Nasal Congestion, Post Nasal Drip Cardiovascular: Denies: Chest Pain, Claudication, Chest Pressure, Chest Tightness, Edema, Heaviness, Orthopnea, Palpitations, Paroxysmal Noc. Dyspnea, Syncope Respiratory: Reports: Shortness of Breath, Shortness of breath at rest. Denies : Cough, Hemoptysis, Pleuritic Pain, Shortness of breath upon exertion, Sputum production, Wheezing Gastrointestinal: Denies: Abdominal Pain, Constipation, Diarrhea, Hematemesis, Hematochezia, Nausea, Melena, Vomiting Genitourinary: Denies: Dysuria, Frequency, Hematuria, Hesitancy, Incontinence, Nocturia, Urgency Gynecological: Denies: Breast symptoms Musculoskeletal: Reports: Leg Pain - Complains of left leg pain after fall. Denies: Arm Pain, Foot Pain, Hand Pain, Joint Pain, Joint stiffness, Joint swelling Skin: Denies: Dryness, Jaundice, Pruritis, Rash Neurological: Denies: Blurred vision, Double vision, Slurred speech, Difficulty swallowing, Focal weakness, Headaches, Numbness, Tingling Psychiatric: Denies: Anxiety, Depression, Homicidal Ideations, Suicidal Ideations Endocrine: Denies: Change in Body Habitus, Heat/ Cold Intolerance, Polydipsia, Polyuria Hematologic/ Lymphatic: Denies: Adenopathy, Anemia, Easy Bruising, Easy Bleeding , Petechiae, Purpura VTE Information - Inpt Only VTE Present on Admission: No VTE Mechan Device Prophylaxis: None VTE Pharm Prophylaxis ordered?: Yes Patient Problems: Active and Suspected Problems (Last Updated 03/05/18 @ 00:52 by Joel Villasenor DO) Weakness (Acute) Shortness of breath (Acute) - Physical Exam General: Alert, Oriented x3, Cooperative, No apparent distress, Well developed, Well nourished HEENT: Atraumatic, PERRLA, EOMI, Normocephalic Oral: Moist Mucosa Neck: Supple, No JVD, Negative Carotid Bruits, No Nuchal Rigidity, Trachea Midline, Thyroid Normal Size and Texture Lungs: Normal air movement, Rales - Inspiratory rales at both lung bases, Wheezes - Scattered expiratory wheezes bilaterally Cardiovascular: Regular rate, Regular Rhythm, Normal S1, Normal S2, No murmurs, No Ectopic Activity, PMI Normal, No rub noted, No Gallop Abdomen: Bowel Sounds Present, Soft, Non Tender, Non-Distended, Obese, No hernias noted Extremities: No clubbing, No cyanosis, Capillary Refill Less than 3 Seconds, Edema - Patient has generalized edema of both lower extremities some pitting edema is noted of her left leg Skin: No rashes, No breakdown Neurological: Cranial nerves II-XII grossly intact, Neuro grossly intact, Sensory exam intact to light touch and pain Psych/Mental Status: Normal Affect, Appropriate, Alert and oriented to time, place, person, mood and affect Vital Signs Temp Pulse Resp BP Pulse Ox 98.6 F 74 18 130/75 H 91 03/04/18 15:42 03/04/18 20:58 03/04/18 22:04 03/04/18 22:04 03/04/18 22:04 Oxygen Flow Rate (L/min) 5 Oxygen Delivery Method Nasal Cannula Weight: 117.934 kg Body Mass Index (BMI) 44.6 Laboratory Tests Past 24 Hrs 03/04/18 03/04/18 03/04/18 16:20 16:20 16:20 WBC 13.2 H RBC 3.36 L Hgb 9.8 L Hct 33.0 L MCV 98.2 MCH 29.2 MCHC 29.7 L RDW 16.2 H RDW Differential 58.1 H Plt Count 304 MPV 9.2 Immature Gran % (Auto) 0.200 Neut % (Auto) 85.2 H Lymph % (Auto) 7.9 L [place] % (Auto) 5.6 Eos % (Auto) 0.9 Baso % (Auto) 0.2 Absolute Neuts (auto) 11.3 H Absolute Lymphs (auto) 1.04 Total Counted Not Reportable Sodium 140 Potassium 5.4 H Chloride 103 Carbon Dioxide 33.0 H Anion Gap 4 L BUN 30 H Creatinine 1.37 H Estim Creat Clear Calc 34.41 Est GFR (MDRD) Af Amer 49 L Est GFR (MDRD) Non-Af 41 L BUN/Creatinine Ratio 21.9 H Glucose 105 Lactic Acid 1.1 Calcium 8.7 Troponin I < 0.015 Urine Color Urine Clarity Urine pH Ur Specific [place] Urine Protein Urine Glucose (UA) Urine Ketones Urine Occult Blood Urine Nitrite Urine Bilirubin Urine Urobilinogen Ur Leukocyte Esterase Urine RBC Urine WBC Ur Squamous Epith Cells Urine Bacteria Hyaline Casts Urine Mucus 03/04/18 17:10 WBC RBC Hgb Hct MCV MCH MCHC RDW RDW Differential Plt Count MPV Immature Gran % (Auto) Neut % (Auto) Lymph % (Auto) [place] % (Auto) Eos % (Auto) Baso % (Auto) Absolute Neuts (auto) Absolute Lymphs (auto) Total Counted Sodium Potassium Chloride Carbon Dioxide Anion Gap BUN Creatinine Estim Creat Clear Calc Est GFR (MDRD) Af Amer Est GFR (MDRD) Non-Af BUN/Creatinine Ratio Glucose Lactic Acid Calcium Troponin I Urine Color Yellow Urine Clarity Sl. Cloudy Urine pH 6.5 Ur Specific [place] 1.015 Urine Protein 30 H Urine Glucose (UA) Normal Urine Ketones Negative Urine Occult Blood Negative Urine Nitrite Negative Urine Bilirubin Negative Urine Urobilinogen 1 H Ur Leukocyte Esterase 25 H Urine RBC 0-5 SEEN Urine WBC 0-5 SEEN Ur Squamous Epith Cells 0-5 SEEN Urine Bacteria 0 SEEN Hyaline Casts 0-5 SEEN Urine Mucus 0 SEEN Assessment/Plan All Active Problems (Last Updated 03/05/18 @ 00:52 by Joel Villasenor DO) Hip fracture (Resolved) Acute kidney injury (Resolved) Fall (Acute) Closed left hip fracture (Resolved) Chronic systolic heart failure (Resolved) Muscle spasm (Resolved) Weakness (Acute) Shortness of breath (Acute) Chronic combined systolic and diastolic CHF (congestive heart failure) (Resolved ) #1 acute on chronic hypoxic respiratory failure-patient will be admitted to [facility], O2 sats will be monitored, she will be placed on aerosol treatments, I do not feel she needs IV Solu-Medrol at this time #2 generalized weakness-secondary to #1, patient was discharged from TCU without a prescription for oxygen, she does not have oxygen at home only the tanks. She will more than likely need oxygen when she goes home from an extended care facility in the near future #3 history of chronic diastolic and systolic congestive heart failure-in the past, patient has had a history of combined congestive heart failure, her last echocardiogram however showed a preserved ejection fraction and it was noted by cardiology earlier this year in January that the patient probably has chronic diastolic congestive heart failure only. I will obtain a beta natruretic peptide, due to her hypotension in the ER however, I choose not to place her on any Lasix at this time, she will need reevaluation on 03/05/18 to see if the patient still continues to need fluids or needs to be placed on Lasix. #4 recent left hip fracture with gamma nail insertion-patient will need PT and OT, she will likely need to go back to an extended care facility, she is not able to function at home presently. #5 hypotension-etiology unclear, patient was given a 1 L bolus of IV fluids at home which improved her blood pressure. #6 chronic obstructive pulmonary disease #7 bibasilar atelectasis-I do not believe patient has an active pneumonia at the present time, she has a leukocytosis however, I will recheck her CBC #8 leukocytosis-etiology unclear, I will repeat the patient's CBC in the morning #9 Chronic kidney disease stage III-etiology unclear #10 History of paroxysmal atrial fibrillation-this history was called into doubt by cardiology who saw her in January 2018 here at the hospital, it was noted in her [facility] records that the patient had a history of ventricular tachycardia and atrial tachycardia, she currently is on no anticoagulation. Patient does remain on flecainide and beta-bairon #11 history of ventricular tachycardia-patient underwent ablation at the [facility] for this, she currently takes flecainide #12 obesity Code Visit Inpatient E&M: 70946 Init Hosp L3
[2018-03-05] VITALS (19 sets, daily range): BP systolic 100–159; BP diastolic 39–90; PULSE 65–80; RESP 16–22; TEMP 36.6–37.2; O2SAT 91–98; BMI 44.6; BMI 46.2
[2018-03-05] MEDS: 0.9% Normal Saline 1,000 ML 75 ML IV (01:20)
[2018-03-05] MEDS: Flecainide 150 MG Tablet PO ×3 (01:30→23:06)
[2018-03-05] MEDS: Venlafaxine XR 75 MG Capsule PO ×3 (01:30→23:05)
[2018-03-05] MEDS: Ipratropium/Albuterol Sulfate 3 ML AMPUL.NEB INHALATION ×4 (01:31→19:31)
[2018-03-05] MEDS: Pramipexole Di-HCl 0.5 MG Tablet PO ×4 (01:31→23:05)
[2018-03-05] MEDS: Pantoprazole Sodium 40 MG Tablet PO ×3 (01:32→23:05)
[2018-03-05] MEDS: Gabapentin 300 MG Capsule PO ×2 (01:32→23:05)
[2018-03-05] MEDS: guaiFENesin 1,200 MG Tablet 1200 MG PO ×3 (01:33→23:05)
[2018-03-05] MEDS: LORazepam 0.5 MG Tablet PO (01:33)
[2018-03-05] MEDS: oxyCODONE 5 MG Tablet PO ×3 (01:33→20:14)
[2018-03-05] MEDS: Metoprolol Tartrate 25 MG Tablet PO ×3 (01:34→23:04)
--- NOTE | 2018-03-05 01:39 | CPS ---
pt has won bipap with settings of but does has not worn for a while due to new mask not fitting?? told pt and pt daughter to bring in own machine and have days respiratory therapist look and adjust mask. pt did not want hospital machine.
[2018-03-05] MEDS: LORazepam 2 MG/ML Syringe 1 MG IV ×2 (05:00→22:05)
[2018-03-05 06:01] LABS: Allen Test POS; Base Excess 5 mmol/L (-2 to +2); Bicarbonate 31.4 mmol/L (22-26); Blood Gas Specimen Type ART; O2 Delivery Device Nasal Can; PO2 82 mmHG (75-100); SITE L Radial; SO2 95 % (95-99); Total Carbon Dioxide 33 mmol/L; pCO2 60.1 mmHg (35-45); pH 7.33 (7.35-7.45)
[2018-03-05 06:08] LABS: Absolute Neutrophil Count 10.9 X10^3/uL (2.0-7.7); Basophil# 0.01 X10^3/uL; Basophil% 0.1 % (0-1); Eosinophil# 0.01 X10^3/uL; Eosinophils% 0.1 % (0-5); Hematocrit 33.1 % (37-47); Hemoglobin 9.8 g/dl (12.0-15.0); Lymphocyte % 4.9 % (19-41); Mean Corp Hgb Conc 29.6 g/gl (32-36); Mean Corpuscular Hgb 29.2 pg (27.0-32.0); Mean Corpuscular Volume 98.5 fL (81-99); Mean Platelet Vol. 9.6 fl (6.2-12.0); Monocyte% 4.1 % (0-10); Neutrophil # 10.91 X10^3/uL (2.7-7.7); Platelet Count 308 K/mm3 (150-450); RBC Distribution Width CV 16.1 % (11.6-14.6); RBC Distribution Width SD 58.1 fl (35.1-43.9); Red Blood Count 3.36 M/mm3 (4.2-5.4); White Blood Count 12.1 K/mm3 (4.4-11.0)
[2018-03-05 06:26] LABS: Differential Indicated SCAN CRITERIA MET; POSITIVE COUNT NO; POSITIVE DIFFERENTIAL YES; POSITIVE MORPHOLOGY NO
[2018-03-05 06:32] LABS: Anion Gap 7 (5-15); BNP,B-Type NATRIURETIC PEPTIDE 792.6 pg/mL (0-100); BUN 24 mg/dL (7-18); BUN/Creat Ratio 19.8 RATIO (10-20); Calcium,Total 8.6 mg/dL (8.5-10.1); Chloride 103 mmol/L (98-107); Creatinine, Serum 1.21 mg/dL (0.55-1.02); EST Glomerular Filtration Rate 47 mL/min (>60); Est Glom Filt Rate - Afr Amer 57 mL/min (>60); Estimated Creatinine Clearance 38.96 ml/min; Glucose 169 mg/dL (74-106); Potassium 5.3 mmol/L (3.5-5.1); Sodium Level 140 mmol/L (136-145)
[2018-03-05] MEDS: Budesonide Respules 0.5 MG/2 ML AMPUL.NEB. INHALATION ×2 (06:51→19:31)
--- NOTE | 2018-03-05 07:52 | PCM.RX.CS ---
Consult Pharmacy has been consulted to manage selected antiobiotic: Vancomycin Type of Consult: New start Suspected Infection: Pneumonia Prior Doses of Antibiotics Received/Current Regimen: NO PRIOR VANCOMYCIN DOSES GIVEN Labs: Sodium 140 mmol/L (136-145) 03/05/18 05:00 Potassium 5.3 mmol/L (3.5-5.1) H 03/05/18 05:00 Chloride 103 mmol/L (98-107) 03/05/18 05:00 Carbon Dioxide 30.0 mmol/L (21.0-32.0) 03/05/18 05:00 Anion Gap 7 (5-15) 03/05/18 05:00 BUN 24 mg/dL (7-18) H 03/05/18 05:00 Creatinine 1.21 mg/dL (0.55-1.02) H 03/05/18 05:00 Est GFR (MDRD) Af Amer 57 mL/min (>60) L 03/05/18 05:00 Est GFR (MDRD) Non-Af 47 mL/min (>60) L 03/05/18 05:00 BUN/Creatinine Ratio 19.8 RATIO (10-20) 03/05/18 05:00 Glucose 169 mg/dL (74-106) H 03/05/18 05:00 Microbiology: NONE AT THIS TIME Weight used for dosin.1 kg Estimated Creatinine Clearance: 39ML/MIN Goal Trough: 15-20 mcg/mL Pharmacy Plan for Drug Dosing: Pharmacy to manage vancomycin per consult for the treatment of suspected pneumonia per H/P and CT imaging. Will give an initial dose of 15mg/kg per nomogram, then start the patient on a scheduled regimen tomorrow per dosing nomogram for a trough of 15- 20. PLAN/RECOMMENDATIONS 1. Vancomycin 1750mg IV x1 now to start 03/05/18 @0900 2. Vancomycin 1500mg IV Q24hrs to start 03/06/18 @0900 3. Trough scheduled 03/07/18 @0830, prior to 3rd total vancomycin dose 4. Pharmacy Service will continue to monitor and adjust dosing as required.
--- NOTE | 2018-03-05 09:20 | PCM.PN.HOSP ---
Patient Problems: Active and Suspected Problems (Last Updated 03/05/18 @ 00:52 by Joel Villasenor DO) Weakness (Acute) Shortness of breath (Acute) Subjective: still short of breath and weak. Doesn't feel that she can go home when she is ready for discharge and interested in SNF. Vitals/I&O's: Vital Signs Temp Pulse Resp BP Pulse Ox 36.6 C 80 18 116/75 93 03/05/18 04:51 03/05/18 07:59 03/05/18 06:51 03/05/18 04:51 03/05/18 06:51 Oxygen Flow Rate (L/min) 6 Oxygen Delivery Method Nasal Cannula Weight: 122.1 kg Body Mass Index (BMI) 46.2 Intake and Output for Last 24 Hours 03/03/18 03/04/18 03/05/18 23:59 23:59 23:59 Intake Total 815 / 815 Balance 815 / 815 General: Alert, No apparent distress, - - listless HEENT: Atraumatic, Normocephalic Oral: Moist Mucosa, No Gingival or Mucosal Lesions/ Ulcerations Neck: No Nodes, Thyroid Normal Size and Texture Lungs: Diminished, - - some crackles bilaterally. Cardiovascular: Regular rate, Regular Rhythm, Normal S1, Normal S2 Abdomen: Bowel Sounds Present, Soft, Non Tender, Non-Distended, No Hepato-splenomegaly, Obese Extremities: No edema, No Calf Tenderness Skin: No rashes, No breakdown Neurological: Neuro grossly intact, Muscle tone normal, Sensory exam intact to light touch and pain Psych/Mental Status: Appropriate, Flat Affect Laboratory Results 03/05/18 05:00: WBC 12.1 H, RBC 3.36 L, Hgb 9.8 L, Hct 33.1 L, MCV 98.5, MCH 29.2, MCHC 29.6 L, RDW 16.1 H, RDW Differential 58.1 H, Plt Count 308, MPV 9.6, Immature Gran % (Auto) 0.800, Neut % (Auto) 90.0 H, Lymph % (Auto) 4.9 L, [place] % (Auto) 4.1, Eos % (Auto) 0.1, Baso % (Auto) 0.1, Absolute Neuts (auto) 10.9 H, Absolute Lymphs (auto) 0.60 L, Total Counted Not Reportable 03/05/18 05:00: Sodium 140, Potassium 5.3 H, Chloride 103, Carbon Dioxide 30.0, Anion Gap 7, BUN 24 H, Creatinine 1.21 H, Estim Creat Clear Calc 38.96, Est GFR (MDRD) Af Amer 57 L, Est GFR (MDRD) Non-Af 47 L, BUN/Creatinine Ratio 19.8, Glucose 169 H, Calcium 8.6 03/05/18 05:00: B-Natriuretic Peptide 792.6 H 03/05/18 05:54: Specimen Type ART, Sample Site L Radial, pH 7.33 L, Bicarbonate Actual 31.4 H, POC Total CO2 33, Base Excess 5 H, O2 Saturation 95, ABG pCO2 60.1 H, ABG pO2 82, Andry Test POS, O2 Delivery Device Nasal Can, Liter Flow 6.0, Blood Gas Notified Whom HOSP MD Reviewed CT scan and shows bilateral infiltrates more prominent on the right. Current Medications Al Hydroxide/Mg Hydroxide (Mylanta Ii) 30 ml PO Q6H PRN PRN PRN Reason: Gastric burning Albuterol Sulfate (Ventolin Aerosols) 2.5 mg INHALATION Q2H PRN PRN PRN Reason: DYSPNEA Albuterol/Ipratropium (Duoneb) 3 ml INHALATION Q6H.RT [facility] Last Admin: 03/05/18 06:51 Dose: 3 ml Budesonide (Pulmicort Aerosol) 0.5 mg INHALATION BID.RT [facility] Last Admin: 03/05/18 06:51 Dose: 0.5 mg Flecainide Acetate (Tambocor) 150 mg PO BID [facility] Last Admin: 03/05/18 01:30 Dose: 150 mg Fluticasone Propionate (Flonase Nasal [place]) 1 spray NASAL DAILY [facility] Gabapentin (Neurontin) 300 mg PO QHS KIM Last Admin: 03/05/18 01:32 Dose: 300 mg Guaifenesin (Mucinex) 1,200 mg PO BID [facility] Last Admin: 03/05/18 01:33 Dose: 1,200 mg Sodium Chloride () 1,000 mls @ 75 mls/hr IV .[id number] KIM Last Admin: 03/05/18 01:20 Dose: 75 mls/hr Sodium Chloride () 250 mls @ 15 mls/hr IV .[id number] PRN PRN Reason: SALINE FLUSH Piperacillin Sod/Tazobactam Sod (Zosyn) 3.375 gm in 50 mls @ 12.5 mls/hr IV Q8 [facility] Vancomycin Pharmacy to Dose 1 (ea/ Sodium Chloride) 500 mls @ 250 mls/hr IV UD PRN PRN Reason: Protocol Vancomycin HCl 1,500 mg/ (Sodium Chloride) 530 mls @ 250 mls/hr IV Q24H [facility] Vancomycin HCl 1,750 mg/ (Sodium Chloride) 535 mls @ 260 mls/hr IV X1 ONE Stop: 03/05/18 11:03 Lisinopril (Zestril) 10 mg PO DAILY [facility] Lorazepam (Ativan) 0.5 mg PO DAILY PRN PRN PRN Reason: dyspnea Last Admin: 03/05/18 01:33 Dose: 0.5 mg Lorazepam (Ativan) 1 mg IV Q6H PRN PRN PRN Reason: RESTLESSNESS Last Admin: 03/05/18 05:00 Dose: 1 mg Magnesium Hydroxide (Milk Of Magnesia) 30 ml PO DAILY PRN PRN PRN Reason: Constipation Metoprolol Tartrate (Lopressor (Beta Katerine)) 25 mg PO BID [facility] Last Admin: 03/05/18 01:34 Dose: 25 mg Nutritional Formula (Lactose Free) (Ensure Enlive) 120 ml PO 4X/DAY [facility] Ondansetron HCl (Zofran Odt) 4 mg PO Q6H PRN PRN PRN Reason: NAUSEA Oxycodone HCl (Oxyir) 5 mg PO Q4H PRN PRN PRN Reason: Moderate Pain (pain scale 4-5) Last Admin: 03/05/18 01:33 Dose: 5 mg Oxycodone HCl (Oxycontin) 20 mg PO BID [facility] Pantoprazole Sodium (Protonix) 40 mg PO BID [facility] Last Admin: 03/05/18 01:32 Dose: 40 mg Polyethylene Glycol (Miralax) 17 gm PO DAILY [facility] Polysaccharide Iron Complex (Ferrex 150) 150 mg PO DAILY [facility] Pramipexole Dihydrochloride (Mirapex) 0.5 mg PO TID [facility] Last Admin: 03/05/18 01:31 Dose: 0.5 mg Sodium Chloride () 5 - 30 ml IV UD PRN PRN Reason: SALINE FLUSH Venlafaxine HCl (Effexor Xr) 75 mg PO BID [facility] Last Admin: 03/05/18 01:30 Dose: 75 mg Medical Necessity - Tobacco Use Smoking Status: Never smoker Tobacco Use: Non-smoker Assessment/Plan All Active Problems (Last Updated 03/05/18 @ 00:52 by Joel Villasenor DO) Hip fracture (Resolved) Acute kidney injury (Resolved) Fall (Acute) Closed left hip fracture (Resolved) Chronic systolic heart failure (Resolved) Muscle spasm (Resolved) Weakness (Acute) Shortness of breath (Acute) Chronic combined systolic and diastolic CHF (congestive heart failure) (Resolved) 1. Acute on chronic hypoxic respiratory failure multifactorial pneumonia + ESPERANZA + obesity hypoventilation +COPD stable at this time. continue with bronchodilators hold on steroids 2. Suspected gram negative pneumonia reviewed CT imaging and there appears to be new infiltrate that was not present on earlier imaging. I do not feel it atelectasis given its extensive nature Vancomycin and Zosyn Pulmonary toilet check urinary antigens and sputum culture 3. HFpEF EF 55% on echo from 01/30/2018 BNP 792, but I do not think the patient is in acute CHF exacerbation hold off on lasix at this time on Metoprolol Tartrate and Lisinopril 4. EMMANUEL: Creatinine 1.37 on admission. Baseline on 02/27 was 1.04. Improved to 1.21 Will DC IVF now, so that patient won't go into CHF 5. DVT proph: with lovenox. Code Visit Inpatient E&M: 25427 Subs Hosp L3
--- NOTE | 2018-03-05 09:35 | PN_ITS ---
Patient Problems: Active and Suspected Problems (Last Updated 03/05/18 @ 00:52 by Joel Villasenor DO) Weakness (Acute) Shortness of breath (Acute) Subjective: still short of breath and weak. Doesn't feel that she can go home when she is ready for discharge and interested in SNF. Vitals/I&O's: Vital Signs Temp Pulse Resp BP Pulse Ox 36.6 C 80 18 116/75 93 03/05/18 04:51 03/05/18 07:59 03/05/18 06:51 03/05/18 04:51 03/05/18 06:51 Oxygen Flow Rate (L/min) 6 Oxygen Delivery Method Nasal Cannula Weight: 122.1 kg Body Mass Index (BMI) 46.2 Intake and Output for Last 24 Hours 03/03/18 03/04/18 03/05/18 23:59 23:59 23:59 Intake Total 815 / 815 Balance 815 / 815 General: Alert, No apparent distress, - - listless HEENT: Atraumatic, Normocephalic Oral: Moist Mucosa, No Gingival or Mucosal Lesions/ Ulcerations Neck: No Nodes, Thyroid Normal Size and Texture Lungs: Diminished, - - some crackles bilaterally. Cardiovascular: Regular rate, Regular Rhythm, Normal S1, Normal S2 Abdomen: Bowel Sounds Present, Soft, Non Tender, Non-Distended, No Hepato- splenomegaly, Obese Extremities: No edema, No Calf Tenderness Skin: No rashes, No breakdown Neurological: Neuro grossly intact, Muscle tone normal, Sensory exam intact to light touch and pain Psych/Mental Status: Appropriate, Flat Affect Laboratory Results 03/05/18 05:00: WBC 12.1 H, RBC 3.36 L, Hgb 9.8 L, Hct 33.1 L, MCV 98.5, MCH 29.2, MCHC 29.6 L, RDW 16.1 H, RDW Differential 58.1 H, Plt Count 308, MPV 9.6, Immature Gran % (Auto) 0.800, Neut % (Auto) 90.0 H, Lymph % (Auto) 4.9 L, [place] % (Auto) 4.1, Eos % (Auto) 0.1, Baso % (Auto) 0.1, Absolute Neuts (auto) 10.9 H , Absolute Lymphs (auto) 0.60 L, Total Counted Not Reportable 03/05/18 05:00: Sodium 140, Potassium 5.3 H, Chloride 103, Carbon Dioxide 30.0, Anion Gap 7, BUN 24 H, Creatinine 1.21 H, Estim Creat Clear Calc 38.96, Est GFR (MDRD) Af Amer 57 L, Est GFR (MDRD) Non-Af 47 L, BUN/Creatinine Ratio 19.8, Glucose 169 H, Calcium 8.6 03/05/18 05:00: B-Natriuretic Peptide 792.6 H 03/05/18 05:54: Specimen Type ART, Sample Site L Radial, pH 7.33 L, Bicarbonate Actual 31.4 H, POC Total CO2 33, Base Excess 5 H, O2 Saturation 95, ABG pCO2 60.1 H, ABG pO2 82, Andry Test POS, O2 Delivery Device Nasal Can, Liter Flow 6.0 , Blood Gas Notified Whom HOSP MD Reviewed CT scan and shows bilateral infiltrates more prominent on the right. Current Medications Al Hydroxide/Mg Hydroxide (Mylanta Ii) 30 ml PO Q6H PRN PRN PRN Reason: Gastric burning Albuterol Sulfate (Ventolin Aerosols) 2.5 mg INHALATION Q2H PRN PRN PRN Reason: DYSPNEA Albuterol/Ipratropium (Duoneb) 3 ml INHALATION Q6H.RT [facility] Last Admin: 03/05/18 06:51 Dose: 3 ml Budesonide (Pulmicort Aerosol) 0.5 mg INHALATION BID.RT [facility] Last Admin: 03/05/18 06:51 Dose: 0.5 mg Flecainide Acetate (Tambocor) 150 mg PO BID [facility] Last Admin: 03/05/18 01:30 Dose: 150 mg Fluticasone Propionate (Flonase Nasal [place]) 1 spray NASAL DAILY [facility] Gabapentin (Neurontin) 300 mg PO QHS [facility] Last Admin: 03/05/18 01:32 Dose: 300 mg Guaifenesin (Mucinex) 1,200 mg PO BID [facility] Last Admin: 03/05/18 01:33 Dose: 1,200 mg Sodium Chloride () 1,000 mls @ 75 mls/hr IV .[id number] [facility] Last Admin: 03/05/18 01:20 Dose: 75 mls/hr Sodium Chloride () 250 mls @ 15 mls/hr IV .[id number] PRN PRN Reason: SALINE FLUSH Piperacillin Sod/Tazobactam Sod (Zosyn) 3.375 gm in 50 mls @ 12.5 mls/hr IV Q8 [facility] Vancomycin Pharmacy to Dose 1 (ea/ Sodium Chloride) 500 mls @ 250 mls/hr IV UD PRN PRN Reason: Protocol Vancomycin HCl 1,500 mg/ (Sodium Chloride) 530 mls @ 250 mls/hr IV Q24H [facility] Vancomycin HCl 1,750 mg/ (Sodium Chloride) 535 mls @ 260 mls/hr IV X1 ONE Stop: 03/05/18 11:03 Lisinopril (Zestril) 10 mg PO DAILY [facility] Lorazepam (Ativan) 0.5 mg PO DAILY PRN PRN PRN Reason: dyspnea Last Admin: 03/05/18 01:33 Dose: 0.5 mg Lorazepam (Ativan) 1 mg IV Q6H PRN PRN PRN Reason: RESTLESSNESS Last Admin: 03/05/18 05:00 Dose: 1 mg Magnesium Hydroxide (Milk Of Magnesia) 30 ml PO DAILY PRN PRN PRN Reason: Constipation Metoprolol Tartrate (Lopressor (Beta Katerine)) 25 mg PO BID [facility] Last Admin: 03/05/18 01:34 Dose: 25 mg Nutritional Formula (Lactose Free) (Ensure Enlive) 120 ml PO 4X/DAY [facility] Ondansetron HCl (Zofran Odt) 4 mg PO Q6H PRN PRN PRN Reason: NAUSEA Oxycodone HCl (Oxyir) 5 mg PO Q4H PRN PRN PRN Reason: Moderate Pain (pain scale 4-5) Last Admin: 03/05/18 01:33 Dose: 5 mg Oxycodone HCl (Oxycontin) 20 mg PO BID [facility] Pantoprazole Sodium (Protonix) 40 mg PO BID [facility] Last Admin: 03/05/18 01:32 Dose: 40 mg Polyethylene Glycol (Miralax) 17 gm PO DAILY [facility] Polysaccharide Iron Complex (Ferrex 150) 150 mg PO DAILY [facility] Pramipexole Dihydrochloride (Mirapex) 0.5 mg PO TID [facility] Last Admin: 03/05/18 01:31 Dose: 0.5 mg Sodium Chloride () 5 - 30 ml IV UD PRN PRN Reason: SALINE FLUSH Venlafaxine HCl (Effexor Xr) 75 mg PO BID [facility] Last Admin: 03/05/18 01:30 Dose: 75 mg Medical Necessity - Tobacco Use Smoking Status: Never smoker Tobacco Use: Non-smoker Assessment/Plan All Active Problems (Last Updated 03/05/18 @ 00:52 by Joel Villasenor, ) Hip fracture (Resolved) Acute kidney injury (Resolved) Fall (Acute) Closed left hip fracture (Resolved) Chronic systolic heart failure (Resolved) Muscle spasm (Resolved) Weakness (Acute) Shortness of breath (Acute) Chronic combined systolic and diastolic CHF (congestive heart failure) (Resolved ) 1. Acute on chronic hypoxic respiratory failure * multifactorial * pneumonia + ESPERANZA + obesity hypoventilation +COPD * stable at this time. * continue with bronchodilators * hold on steroids 2. Suspected gram negative pneumonia * reviewed CT imaging and there appears to be new infiltrate that was not present on earlier imaging. * I do not feel it atelectasis given its extensive nature * Vancomycin and Zosyn * Pulmonary toilet * check urinary antigens and sputum culture 3. HFpEF * EF 55% on echo from 01/30/2018 * BNP 792, but I do not think the patient is in acute CHF exacerbation * hold off on lasix at this time * on Metoprolol Tartrate and Lisinopril 4. EMMANUEL: * Creatinine 1.37 on admission. Baseline on 02/27 was 1.04. Improved to 1.21 * Will DC IVF now, so that patient won't go into CHF 5. DVT proph: with lovenox. Code Visit Inpatient E&M: 86545 Subs Hosp L3
[2018-03-05] MEDS: 0.9% NaCl Peripheral Flush Adult/Peds IV ×2 (10:00→15:01)
[2018-03-05] MEDS: Iron Polysaccharide Complex 150 MG CAPSULE PO (10:25)
[2018-03-05] MEDS: Lisinopril 10 MG Tablet PO (10:25)
[2018-03-05] MEDS: Fluticasone 0.05% 1 SPRAY NASAL.SRY NASAL (10:25)
[2018-03-05] MEDS: Polyethylene Glycol 3350 17 GM PACKET PO (10:27)
--- NOTE | 2018-03-05 11:12 | PCA ---
therapy in with pt
[2018-03-05] MEDS: Piperacil/Tazobactam 3.375 GM/50 ML ML IV ×2 (15:01→23:06)
[2018-03-06] VITALS (16 sets, daily range): BP systolic 105–123; BP diastolic 57–81; PULSE 57–88; RESP 16–22; TEMP 36.5–36.7; O2SAT 89–98
[2018-03-06] MEDS: Ipratropium/Albuterol Sulfate 3 ML AMPUL.NEB INHALATION ×4 (01:25→18:43)
[2018-03-06] MEDS: Enoxaparin 40 MG/0.4 ML Syringe SC (06:14)
[2018-03-06] MEDS: Pramipexole Di-HCl 0.5 MG Tablet PO ×3 (06:14→21:48)
[2018-03-06] MEDS: 0.9% NaCl Peripheral Flush Adult/Peds IV (06:16)
[2018-03-06 06:20] LABS: Anion Gap 6 (5-15); BUN 21 mg/dL (7-18); BUN/Creat Ratio 19.4 RATIO (10-20); Calcium,Total 8.8 mg/dL (8.5-10.1); Chloride 103 mmol/L (98-107); Creatinine, Serum 1.08 mg/dL (0.55-1.02); EST Glomerular Filtration Rate 54 mL/min (>60); Est Glom Filt Rate - Afr Amer 65 mL/min (>60); Estimated Creatinine Clearance 43.65 ml/min; Glucose 86 mg/dL (74-106); Sodium Level 140 mmol/L (136-145)
[2018-03-06] MEDS: oxyCODONE 5 MG Tablet PO ×3 (06:24→19:46)
[2018-03-06] MEDS: Piperacil/Tazobactam 3.375 GM/50 ML ML IV ×3 (06:24→21:45)
[2018-03-06 06:27] LABS: Absolute Lymphocyte Count 1.89 X10^3/ul (0.83-4.51); Absolute Neutrophil Count 8.8 X10^3/uL (2.0-7.7); Basophil# 0.04 X10^3/uL; Basophil% 0.3 % (0-1); Eosinophil# 0.14 X10^3/uL; Eosinophils% 1.2 % (0-5); Hematocrit 35.9 % (37-47); Hemoglobin 10.3 g/dl (12.0-15.0); Lymphocyte # 1.89 X10^3/ul (4.0); Lymphocyte % 16.1 % (19-41); Mean Corp Hgb Conc 28.7 g/gl (32-36); Mean Corpuscular Hgb 28.8 pg (27.0-32.0); Mean Corpuscular Volume 100.3 fL (81-99); Mean Platelet Vol. 9.5 fl (6.2-12.0); Monocyte# 0.82 X10^3/uL; Neutrophil # 8.75 X10^3/uL (2.7-7.7); Neutrophil % 74.6 % (47-70); POSITIVE COUNT NO; POSITIVE DIFFERENTIAL NO; POSITIVE MORPHOLOGY NO; Platelet Count 361 K/mm3 (150-450); RBC Distribution Width CV 16.3 % (11.6-14.6); RBC Distribution Width SD 59.1 fl (35.1-43.9); Red Blood Count 3.58 M/mm3 (4.2-5.4); White Blood Count 11.7 K/mm3 (4.4-11.0)
[2018-03-06] MEDS: Budesonide Respules 0.5 MG/2 ML AMPUL.NEB. INHALATION ×2 (06:40→18:43)
--- NOTE | 2018-03-06 09:36 | PCM.PN.HOSP ---
Patient Problems: Active and Suspected Problems (Last Updated 03/05/18 @ 00:52 by Joel Villasenor DO) Weakness (Acute) Shortness of breath (Acute) Subjective: Complains of pain in her neck and left shoulder. Still with pain in left hip. Wants adequate pain control so that she can participate in therapy. Vitals/I&O's: Vital Signs Temp Pulse Resp BP Pulse Ox 36.6 C 73 18 105/67 94 03/06/18 09:22 03/06/18 09:22 03/06/18 09:22 03/06/18 09:22 03/06/18 09:22 Oxygen Flow Rate (L/min) 5 Oxygen Delivery Method Nasal Cannula Weight: 122.1 kg Body Mass Index (BMI) 46.2 Intake and Output for Last 24 Hours 03/04/18 03/05/18 03/06/18 23:59 23:59 23:59 Intake Total 2427 / 2427 367 / 367 Output Total 700 / 700 1150 / 1150 Balance 1727 / 1727 -783 / -783 General: Alert, No apparent distress HEENT: Atraumatic, Normocephalic Neck: No Nodes, Thyroid Normal Size and Texture Lungs: Diminished, - - RLL crackles. Cardiovascular: Regular rate, Regular Rhythm, Normal S1, Normal S2, No murmurs Abdomen: Bowel Sounds Present, Soft, Non Tender, Non-Distended, No Hepato-splenomegaly Extremities: No Calf Tenderness, Edema Skin: No rashes, No breakdown Musculoskeletal: - - + empty can sign on left. TTP of left paraspinal cervical muscles. Psych/Mental Status: Appropriate, Anxious Laboratory Results 03/06/18 05:00: WBC 11.7 H, RBC 3.58 L, Hgb 10.3 L, Hct 35.9 L, MCV 100.3 H, MCH 28.8, MCHC 28.7 L, RDW 16.3 H, RDW Differential 59.1 H, Plt Count 361, MPV 9.5, Immature Gran % (Auto) 0.800, Neut % (Auto) 74.6 H, Lymph % (Auto) 16.1 L, [place] % (Auto) 7.0, Eos % (Auto) 1.2, Baso % (Auto) 0.3, Absolute Neuts (auto) 8.8 H, Absolute Lymphs (auto) 1.89, Total Counted Not Reportable 03/06/18 05:00: Sodium 140, Potassium 5.0, Chloride 103, Carbon Dioxide 31.0, Anion Gap 6, BUN 21 H, Creatinine 1.08 H, Estim Creat Clear Calc 43.65, Est GFR (MDRD) Af Amer 65, Est GFR (MDRD) Non-Af 54 L, BUN/Creatinine Ratio 19.4, Glucose 86, Calcium 8.8 Current Medications Al Hydroxide/Mg Hydroxide (Mylanta Ii) 30 ml PO Q6H PRN PRN PRN Reason: Gastric burning Albuterol Sulfate (Ventolin Aerosols) 2.5 mg INHALATION Q2H PRN PRN PRN Reason: DYSPNEA Albuterol/Ipratropium (Duoneb) 3 ml INHALATION Q6H.RT [facility] Last Admin: 03/06/18 06:40 Dose: 3 ml Budesonide (Pulmicort Aerosol) 0.5 mg INHALATION BID.RT [facility] Last Admin: 03/06/18 06:40 Dose: 0.5 mg Enoxaparin Sodium (Lovenox) 40 mg SC DAILY@0600 [facility] Last Admin: 03/06/18 06:14 Dose: 40 mg Flecainide Acetate (Tambocor) 150 mg PO BID [facility] Last Admin: 03/05/18 23:06 Dose: 150 mg Fluticasone Propionate (Flonase Nasal [place]) 1 spray NASAL DAILY [facility] Last Admin: 03/05/18 10:25 Dose: 1 spray Gabapentin (Neurontin) 300 mg PO QHS [facility] Last Admin: 03/05/18 23:05 Dose: 300 mg Guaifenesin (Mucinex) 1,200 mg PO BID [facility] Last Admin: 03/05/18 23:05 Dose: 1,200 mg Piperacillin Sod/Tazobactam Sod (Zosyn) 3.375 gm in 50 mls @ 12.5 mls/hr IV Q8 [facility] Last Admin: 03/06/18 06:24 Dose: 12.5 mls/hr Vancomycin Pharmacy to Dose 1 (ea/ Sodium Chloride) 500 mls @ 250 mls/hr IV UD PRN PRN Reason: Protocol Vancomycin HCl 1,500 mg/ (Sodium Chloride) 530 mls @ 250 mls/hr IV Q24H [facility] Lisinopril (Zestril) 10 mg PO DAILY [facility] Last Admin: 03/05/18 10:25 Dose: 10 mg Lorazepam (Ativan) 0.5 mg PO DAILY PRN PRN PRN Reason: dyspnea Last Admin: 03/05/18 01:33 Dose: 0.5 mg Lorazepam (Ativan) 1 mg IV Q6H PRN PRN PRN Reason: RESTLESSNESS Last Admin: 03/05/18 22:05 Dose: 1 mg Magnesium Hydroxide (Milk Of Magnesia) 30 ml PO DAILY PRN PRN PRN Reason: Constipation Metoprolol Tartrate (Lopressor (Beta [place])) 25 mg PO BID [facility] Last Admin: 03/05/18 23:04 Dose: 25 mg Ondansetron HCl (Zofran Odt) 4 mg PO Q6H PRN PRN PRN Reason: NAUSEA Oxycodone HCl (Oxyir) 5 mg PO Q4H PRN PRN PRN Reason: Moderate Pain (pain scale 4-5) Last Admin: 03/06/18 06:24 Dose: 5 mg Oxycodone HCl (Oxycontin) 20 mg PO BID [facility] Last Admin: 03/05/18 23:04 Dose: 20 mg Pantoprazole Sodium (Protonix) 40 mg PO BID [facility] Last Admin: 03/05/18 23:05 Dose: 40 mg Polyethylene Glycol (Miralax) 17 gm PO DAILY [facility] Last Admin: 03/05/18 10:27 Dose: 17 gm Polysaccharide Iron Complex (Ferrex 150) 150 mg PO DAILY [facility] Last Admin: 03/05/18 10:25 Dose: 150 mg Pramipexole Dihydrochloride (Mirapex) 0.5 mg PO TID [facility] Last Admin: 03/06/18 06:14 Dose: 0.5 mg Sodium Chloride () 5 - 30 ml IV UD PRN PRN Reason: SALINE FLUSH Last Admin: 03/06/18 06:16 Dose: 10 ml Venlafaxine HCl (Effexor Xr) 75 mg PO BID [facility] Last Admin: 03/05/18 23:05 Dose: 75 mg Medical Necessity - Tobacco Use Smoking Status: Never smoker Tobacco Use: Non-smoker Assessment/Plan All Active Problems (Last Updated 03/05/18 @ 00:52 by Joel Villasenor DO) Hip fracture (Resolved) Acute kidney injury (Resolved) Fall (Acute) Closed left hip fracture (Resolved) Chronic systolic heart failure (Resolved) Muscle spasm (Resolved) Weakness (Acute) Shortness of breath (Acute) Chronic combined systolic and diastolic CHF (congestive heart failure) (Resolved) 1. Acute on chronic hypoxic respiratory failure multifactorial pneumonia + ESPERANZA + obesity hypoventilation +COPD stable at this time. continue with bronchodilators hold off on steroids wean oxygen as tolerated 2. Suspected gram negative pneumonia reviewed CT imaging and there appears to be new infiltrate that was not present on earlier imaging. I do not feel it atelectasis given its extensive nature Vancomycin and Zosyn Pulmonary toilet check urinary antigens and sputum culture 3. HFpEF EF 55% on echo from 01/30/2018 BNP 792, but I do not think the patient is in acute CHF exacerbation hold off on lasix at this time on Metoprolol Tartrate and Lisinopril 4. EMMANUEL: resolved Creatinine 1.37 on admission. Baseline on 02/27 was 1.04. 5. Cervical neck strain, Left rotator cuff strain/tear, left hip pain. pain control. on scheduled and PRN oxycodone discussed with patient at length about maintaining pain control AND function informed will assist with non-narcotics no change to opiates at this time check left shoulder xray follow up with Dr. Murillo for left hip ORIF follow up. 6. Dysphagia pt concerned about trouble swallow she has had what sounds like an esophageal dilation for a possible stricture 9-10 years ago. Has not followed up since then Complains of vomiting when she eats breads or meats for years. I told her that she will need to follow up with GI as outpt for endoscopy. Given that this a chronic problem and not new, this will need to be done as outpt. In the meantime, she will need to be on a soft diet and no breads 7. DVT proph: with lovenox. Greater than 40 minutes of which greater than 50% time was counseling about pain control and her dysphagia issues. Code Visit Inpatient E&M: [id number] [facility] Hosp L3
[2018-03-06] MEDS: Iron Polysaccharide Complex 150 MG CAPSULE PO (09:40)
[2018-03-06] MEDS: Venlafaxine XR 75 MG Capsule PO ×2 (09:40→21:48)
[2018-03-06] MEDS: Pantoprazole Sodium 40 MG Tablet PO ×2 (09:40→21:48)
[2018-03-06] MEDS: Fluticasone 0.05% 1 SPRAY NASAL.SRY NASAL (09:40)
[2018-03-06] MEDS: guaiFENesin 1,200 MG Tablet 1200 MG PO ×2 (09:40→21:48)
[2018-03-06] MEDS: Flecainide 150 MG Tablet PO ×2 (09:40→21:47)
[2018-03-06] MEDS: Metoprolol Tartrate 25 MG Tablet PO ×2 (09:40→21:47)
[2018-03-06] MEDS: Polyethylene Glycol 3350 17 GM PACKET PO (09:40)
[2018-03-06] MEDS: Lisinopril 10 MG Tablet PO (09:40)
--- NOTE | 2018-03-06 09:47 | NURSING ---
pharmacy called at this time- spoke with Patel and notified that vancomycin is not on unit- was due at 0900- he states he will go to IV room and check.
--- NOTE | 2018-03-06 09:48 | PN_ITS ---
Patient Problems: Active and Suspected Problems (Last Updated 03/05/18 @ 00:52 by Joel Villasenor DO) Weakness (Acute) Shortness of breath (Acute) Subjective: Complains of pain in her neck and left shoulder. Still with pain in left hip. Wants adequate pain control so that she can participate in therapy. Vitals/I&O's: Vital Signs Temp Pulse Resp BP Pulse Ox 36.6 C 73 18 105/67 94 03/06/18 09:22 03/06/18 09:22 03/06/18 09:22 03/06/18 09:22 03/06/18 09:22 Oxygen Flow Rate (L/min) 5 Oxygen Delivery Method Nasal Cannula Weight: 122.1 kg Body Mass Index (BMI) 46.2 Intake and Output for Last 24 Hours 03/04/18 03/05/18 03/06/18 23:59 23:59 23:59 Intake Total 2427 / 2427 367 / 367 Output Total 700 / 700 1150 / 1150 Balance 1727 / 1727 -783 / -783 General: Alert, No apparent distress HEENT: Atraumatic, Normocephalic Neck: No Nodes, Thyroid Normal Size and Texture Lungs: Diminished, - - RLL crackles. Cardiovascular: Regular rate, Regular Rhythm, Normal S1, Normal S2, No murmurs Abdomen: Bowel Sounds Present, Soft, Non Tender, Non-Distended, No Hepato- splenomegaly Extremities: No Calf Tenderness, Edema Skin: No rashes, No breakdown Musculoskeletal: - - + empty can sign on left. TTP of left paraspinal cervical muscles. Psych/Mental Status: Appropriate, Anxious Laboratory Results 03/06/18 05:00: WBC 11.7 H, RBC 3.58 L, Hgb 10.3 L, Hct 35.9 L, MCV 100.3 H, MCH 28.8, MCHC 28.7 L, RDW 16.3 H, RDW Differential 59.1 H, Plt Count 361, MPV 9.5, Immature Gran % (Auto) 0.800, Neut % (Auto) 74.6 H, Lymph % (Auto) 16.1 L, [place] % (Auto) 7.0, Eos % (Auto) 1.2, Baso % (Auto) 0.3, Absolute Neuts (auto) 8.8 H, Absolute Lymphs (auto) 1.89, Total Counted Not Reportable 03/06/18 05:00: Sodium 140, Potassium 5.0, Chloride 103, Carbon Dioxide 31.0, Anion Gap 6, BUN 21 H, Creatinine 1.08 H, Estim Creat Clear Calc 43.65, Est GFR (MDRD) Af Amer 65, Est GFR (MDRD) Non-Af 54 L, BUN/Creatinine Ratio 19.4, Glucose 86, Calcium 8.8 Current Medications Al Hydroxide/Mg Hydroxide (Mylanta Ii) 30 ml PO Q6H PRN PRN PRN Reason: Gastric burning Albuterol Sulfate (Ventolin Aerosols) 2.5 mg INHALATION Q2H PRN PRN PRN Reason: DYSPNEA Albuterol/Ipratropium (Duoneb) 3 ml INHALATION Q6H.RT [facility] Last Admin: 03/06/18 06:40 Dose: 3 ml Budesonide (Pulmicort Aerosol) 0.5 mg INHALATION BID.RT [facility] Last Admin: 03/06/18 06:40 Dose: 0.5 mg Enoxaparin Sodium (Lovenox) 40 mg SC DAILY@0600 [facility] Last Admin: 03/06/18 06:14 Dose: 40 mg Flecainide Acetate (Tambocor) 150 mg PO BID [facility] Last Admin: 03/05/18 23:06 Dose: 150 mg Fluticasone Propionate (Flonase Nasal [place]) 1 spray NASAL DAILY [facility] Last Admin: 03/05/18 10:25 Dose: 1 spray Gabapentin (Neurontin) 300 mg PO QHS [facility] Last Admin: 03/05/18 23:05 Dose: 300 mg Guaifenesin (Mucinex) 1,200 mg PO BID [facility] Last Admin: 03/05/18 23:05 Dose: 1,200 mg Piperacillin Sod/Tazobactam Sod (Zosyn) 3.375 gm in 50 mls @ 12.5 mls/hr IV Q8 [facility] Last Admin: 03/06/18 06:24 Dose: 12.5 mls/hr Vancomycin Pharmacy to Dose 1 (ea/ Sodium Chloride) 500 mls @ 250 mls/hr IV UD PRN PRN Reason: Protocol Vancomycin HCl 1,500 mg/ (Sodium Chloride) 530 mls @ 250 mls/hr IV Q24H [facility] Lisinopril (Zestril) 10 mg PO DAILY [facility] Last Admin: 03/05/18 10:25 Dose: 10 mg Lorazepam (Ativan) 0.5 mg PO DAILY PRN PRN PRN Reason: dyspnea Last Admin: 03/05/18 01:33 Dose: 0.5 mg Lorazepam (Ativan) 1 mg IV Q6H PRN PRN PRN Reason: RESTLESSNESS Last Admin: 03/05/18 22:05 Dose: 1 mg Magnesium Hydroxide (Milk Of Magnesia) 30 ml PO DAILY PRN PRN PRN Reason: Constipation Metoprolol Tartrate (Lopressor (Beta Katerine)) 25 mg PO BID [facility] Last Admin: 03/05/18 23:04 Dose: 25 mg Ondansetron HCl (Zofran Odt) 4 mg PO Q6H PRN PRN PRN Reason: NAUSEA Oxycodone HCl (Oxyir) 5 mg PO Q4H PRN PRN PRN Reason: Moderate Pain (pain scale 4-5) Last Admin: 03/06/18 06:24 Dose: 5 mg Oxycodone HCl (Oxycontin) 20 mg PO BID [facility] Last Admin: 03/05/18 23:04 Dose: 20 mg Pantoprazole Sodium (Protonix) 40 mg PO BID [facility] Last Admin: 03/05/18 23:05 Dose: 40 mg Polyethylene Glycol (Miralax) 17 gm PO DAILY [facility] Last Admin: 03/05/18 10:27 Dose: 17 gm Polysaccharide Iron Complex (Ferrex 150) 150 mg PO DAILY [facility] Last Admin: 03/05/18 10:25 Dose: 150 mg Pramipexole Dihydrochloride (Mirapex) 0.5 mg PO TID [facility] Last Admin: 03/06/18 06:14 Dose: 0.5 mg Sodium Chloride () 5 - 30 ml IV UD PRN PRN Reason: SALINE FLUSH Last Admin: 03/06/18 06:16 Dose: 10 ml Venlafaxine HCl (Effexor Xr) 75 mg PO BID [facility] Last Admin: 03/05/18 23:05 Dose: 75 mg Medical Necessity - Tobacco Use Smoking Status: Never smoker Tobacco Use: Non-smoker Assessment/Plan All Active Problems (Last Updated 03/05/18 @ 00:52 by Joel Villasenor DO) Hip fracture (Resolved) Acute kidney injury (Resolved) Fall (Acute) Closed left hip fracture (Resolved) Chronic systolic heart failure (Resolved) Muscle spasm (Resolved) Weakness (Acute) Shortness of breath (Acute) Chronic combined systolic and diastolic CHF (congestive heart failure) (Resolved ) 1. Acute on chronic hypoxic respiratory failure * multifactorial * pneumonia + ESPERANZA + obesity hypoventilation +COPD * stable at this time. * continue with bronchodilators * hold off on steroids * wean oxygen as tolerated 2. Suspected gram negative pneumonia * reviewed CT imaging and there appears to be new infiltrate that was not present on earlier imaging. * I do not feel it atelectasis given its extensive nature * Vancomycin and Zosyn * Pulmonary toilet * check urinary antigens and sputum culture 3. HFpEF * EF 55% on echo from 01/30/2018 * BNP 792, but I do not think the patient is in acute CHF exacerbation * hold off on lasix at this time * on Metoprolol Tartrate and Lisinopril 4. EMMANUEL: * resolved * Creatinine 1.37 on admission. Baseline on 02/27 was 1.04. 5. Cervical neck strain, Left rotator cuff strain/tear, left hip pain. * pain control. * on scheduled and PRN oxycodone * discussed with patient at length about maintaining pain control AND function * informed will assist with non-narcotics * no change to opiates at this time * check left shoulder xray * follow up with Dr. Murillo for left hip ORIF follow up. 6. Dysphagia * pt concerned about trouble swallow * she has had what sounds like an esophageal dilation for a possible stricture 9 -10 years ago. Has not followed up since then * Complains of vomiting when she eats breads or meats for years. * I told her that she will need to follow up with GI as outpt for endoscopy. Given that this a chronic problem and not new, this will need to be done as outpt. * In the meantime, she will need to be on a soft diet and no breads 7. DVT proph: with lovenox. Greater than 40 minutes of which greater than 50% time was counseling about pain control and her dysphagia issues. Code Visit Inpatient E&M: 95556 Subs Hosp L3
--- NOTE | 2018-03-06 09:56 | NURSING ---
wound photo: left hip
[2018-03-06] MEDS: Lidocaine 5% Patch 1 PATCH TOPICAL (10:00)
--- NOTE | 2018-03-06 11:24 | CASEMGMT ---
Social Work Note ANGLE met with pt to discuss discharge plans. Pt recently discharged from [facility] 03/03/2018. Pt states that she is agreeable to SNF placement again at discharge is first choice is TCU. SW informed pt that this worker will check on bed availablity and if TCU will accept pt again. Pt states understanding and didn't provide this worker with a second choice for SNF. Pt states I just woke up from a nap. SW informed pt that this worker will check with TCU and will see pt later to discuss SNF. Pt states understanding. ANGLE placed a call to Katia in TCU. Katia states that she won't accept pt to TCU as pt needs nursing home care. ANGLE will check with pt later to confirm discharge plans. Plan: SNF pending acceptance and pre-cert Leanne Holder [employer], [employer]
--- NOTE | 2018-03-06 12:15 | RAD_ITS ---
STUDY: X-RAY - LEFT SHOULDER REASON FOR EXAM: Female, 67 years old. Shoulder pain and weakness. TECHNIQUE: 3 view(s) of the shoulder. COMPARISON: None. FINDINGS: Normal glenohumeral articulation. Normal acromioclavicular joint. Normal acromion. Normal humeral head and visualized proximal humerus. The soft tissue structures are unremarkable. Increased markings in the left lung suggestive of atelectasis and/or infiltration. RAD/Shoulder min 2 Views IMPRESSION: No acute abnormality is seen. Electronically Signed: Ivan Arce MD at 14:50 EDT Tel [phone], Service support ,
--- NOTE | 2018-03-06 12:41 | NURSING ---
SHOULDER XRAY COMPLETED IN PT ROOM.
--- NOTE | 2018-03-06 13:41 | CASEMGMT ---
Social Work Note SW in to update pt. Pt's daughter Samantha present in room. Pt gave this worker permission to speak to her daughter Samantha in regards to discharge plans. SW provided list of SNF in and around [place], [place]. Samantha states that her first choice would be [facility] in [place] and a second choice would be a facility in [place]. Samanhta states that she would like to visit [facility]. SW explained referral process and that this worker will make a referral to [facility] to see if they are able to accept. Samantha states understanding. Pt and Samantha denied additional needs or concerns at this time. SW faxed referral to Ree at [facility]. SW placed a call to Ree at [facility] and updated her on referral. ANGLE informed Ree that pt is [employer] and that this worker will have to submit clinicals to [employer] before she can submit pre-cert. Ree states understanding and would like this worker to make referral to [facility] and inform her when she can submit pre-cert. ANGLE faxed referral to [employer] and placed a call to inform them of referral. SW waiting for call back from [employer]. Plan: [facility] pending pre-cert Leanne Holder JEWELRY RACKER, [employer]
--- NOTE | 2018-03-06 15:12 | CHAPLAIN ---
Type of Pastoral Visit _x__ Initial Visit _x__ Follow-up Visit ___ On-call Visit ___ General Patient Visit ___ Spiritual Assessment ___ Family Conference ___ Bereavement ___ Rapid Response ___ Code Blue ___ Other (describe below) Pastoral Care Referral From _x__ Patient ___ Family ___ Nurse ___ Physician ___ Binding Machine Operator ___ Set Decorator ___ Other (describe below) Sacrament/Intervention _x__ Active listening ___ Anointing ___ Episcopalian ___ Bereavement ___ Communion ___ Diane exploration ___ ___ Life review _x__ Prayer ___ Reconciliation ___ Sacrament of Sick _x__ Supportive presence ___ Wedding ___ Other (describe below) Pastoral Comments patient is back in hospital after a release last week; pt has a different health issue; pt says she is scared and that this is worse than having the broken bone; family members are with pt; pt is tearful; pt says that she is very tired; pt welcomes prayer and support
--- NOTE | 2018-03-06 15:38 | CASEMGMT ---
Social Work Note SW received message from Tonia at [employer] who states that she is agreeable to pt going to SNF at discharge. ANGLE placed a call to Ree at [facility] to update her to submit pre-cert. Ree states that she will submit for pre-cert. Plan: [facility] pending pre-cert Leanne Holder DIAMOND ASSORTER, POULTRY FARM LABORER
--- NOTE | 2018-03-06 19:48 | NURSING ---
PT FOUND W/SPO2 AT 86%. ENC C&DB, SAT PT STRAIGHT UP; NO IMPROVEMENT.INCREASED O2 TO 7L. SO2 @ 90%.
[2018-03-06] MEDS: Gabapentin 300 MG Capsule PO (21:48)
[2018-03-07] VITALS (19 sets, daily range): BP systolic 93–120; BP diastolic 60–76; PULSE 51–73; RESP 16–20; TEMP 36.6–36.9; O2SAT 92–96
[2018-03-07] MEDS: oxyCODONE 5 MG Tablet PO ×2 (00:31→06:06)
[2018-03-07] MEDS: Ipratropium/Albuterol Sulfate 3 ML AMPUL.NEB INHALATION ×4 (00:43→21:30)
[2018-03-07] MEDS: Enoxaparin 40 MG/0.4 ML Syringe SC (06:07)
[2018-03-07] MEDS: Pramipexole Di-HCl 0.5 MG Tablet PO ×3 (06:07→21:03)
[2018-03-07] MEDS: Piperacil/Tazobactam 3.375 GM/50 ML ML IV (06:07)
[2018-03-07] MEDS: LORazepam 2 MG/ML Syringe 1 MG IV (06:36)
[2018-03-07] MEDS: 0.9% NaCl Peripheral Flush Adult/Peds IV (06:36)
--- NOTE | 2018-03-07 06:37 | NURSING ---
0628 PT ALARMS ON SPO2 MONITOR. THIS RN FINDS PT CRYING, SOB. O2 INCREASED FROM 5 TO 7L, BUT PT REMAINS IN THE LOW 80S. 636 1MG ATIVAN GIVEN, PT PANICKING. ENC PURSE LIPPED BREATHING. 638 RESPIRATORY NOTIFIED OF DIFFICULTY INCREASING SATS 638 , PT STILL 82-84%, O2 INCREASED TO 15L 640 PT SPO2 NOW 86-88% 645 RESPIRATORY IN ROOM 646 HOME CPAP APPLIED, SATS UNABLE TO BE MAINTAINED AT 88% OR GREATER 648 50% VENTI MASK APPLIED @ 15L 91% 651 92% ON 50% VM 654 CPS IN W/BREATHING TX.
[2018-03-07] MEDS: Budesonide Respules 0.5 MG/2 ML AMPUL.NEB. INHALATION ×2 (06:55→21:40)
--- NOTE | 2018-03-07 07:30 | NURSING ---
PT SUSTAINING SPO2 OF >90% ON 50% VM. ATIVAN EFFECTIVE FOR ANXIETY, PT IS AROUSABLE TO TOUCH. REPORT GIVEN TO DARLING ANDRADE.
[2018-03-07 07:41] LABS: Allen Test POS; Base Excess 8 mmol/L (-2 to +2); Bicarbonate 34.3 mmol/L (22-26); Blood Gas Specimen Type ART; FI02 50; PO2 62 mmHG (75-100); SITE R Radial; SO2 89 % (95-99); Time Given 800; Total Carbon Dioxide 36 mmol/L; pCO2 64.5 mmHg (35-45); pH 7.33 (7.35-7.45)
--- NOTE | 2018-03-07 08:21 | CPS ---
called to PT room for decreased saturation. Pt was on nasal cannula upon arrival to room. Attempted to place pt back on own BIPAP with 5 lpm bleed in but pt cont. to desat. into low 80'S. Pt placed on 50% venti mask. Sat. to 93%. Aerosol rx given. ABG obtained also on 50% venti. Nurse aware and at bedside throughout episode.
[2018-03-07 08:55] LABS: Absolute Neutrophil Count 6.8 X10^3/uL (2.0-7.7); Basophil# 0.08 X10^3/uL; Basophil% 0.9 % (0-1); Eosinophils% 2.2 % (0-5); Hematocrit 34.6 % (37-47); Hemoglobin 10.1 g/dl (12.0-15.0); Mean Corp Hgb Conc 29.2 g/gl (32-36); Mean Corpuscular Hgb 29.4 pg (27.0-32.0); Mean Corpuscular Volume 100.6 fL (81-99); Mean Platelet Vol. 9.3 fl (6.2-12.0); Monocyte# 0.81 X10^3/uL; Monocyte% 8.7 % (0-10); Neutrophil # 6.75 X10^3/uL (2.7-7.7); Neutrophil % 72.5 % (47-70); Platelet Count 347 K/mm3 (150-450); RBC Distribution Width CV 15.8 % (11.6-14.6); RBC Distribution Width SD 55.9 fl (35.1-43.9); Red Blood Count 3.44 M/mm3 (4.2-5.4); White Blood Count 9.3 K/mm3 (4.4-11.0)
[2018-03-07 09:01] LABS: POSITIVE COUNT NO; POSITIVE DIFFERENTIAL NO; POSITIVE MORPHOLOGY NO
[2018-03-07] MEDS: Lidocaine 5% Patch 1 PATCH TOPICAL (09:09)
--- NOTE | 2018-03-07 09:09 | NURSING ---
PT EASILY AWAKENS- BUT VERY DROWSY AND RETURNS TO SLEEP QUICKLY. A&OX3- CURRENTLY ON 5l NASAL CANNULA. PT ON CONT. SPO2 AT THIS TIME TO MONITOR CLOSELY. PT DENIES NEEDS. RESTING WITH EYES CLOSED.
--- NOTE | 2018-03-07 09:14 | PCM.PN.HOSP ---
Patient Problems: Active and Suspected Problems (Last Updated 03/05/18 @ 00:52 by Joel Villasenor DO) Pneumococcal pneumonia (Acute) Acute respiratory failure with hypoxia (Acute) Toxic encephalopathy (Acute) Weakness (Acute) Shortness of breath (Acute) Subjective: Complained of being short of breath earlier this morning. Pulse ox was 40%. Pt was noted to be anxious and received 1mg of IV Ativan. She was put on Venti mask at 50% and sats improved to the low 90s, however, she was somnolent. Vitals/I&O's: Vital Signs Temp Pulse Resp BP Pulse Ox 36.8 C 66 18 112/70 93 03/07/18 08:07 03/07/18 08:07 03/07/18 08:22 03/07/18 08:07 03/07/18 08:22 Oxygen Flow Rate (L/min) 5 Oxygen Delivery Method Nasal Cannula Weight: 122.1 kg Body Mass Index (BMI) 46.2 Intake and Output for Last 24 Hours 03/05/18 03/06/18 03/07/18 23:59 23:59 23:59 Intake Total 2427 / 2427 1555 / 1555 1405 / 1405 Output Total 700 / 700 1700 / 1700 300 / 300 Balance 1727 / 1727 -145 / -145 1105 / 1105 General: - - somnolent. awakens briefly to voice, only to doze off again. HEENT: Atraumatic, Normocephalic Oral: Moist Mucosa, No Gingival or Mucosal Lesions/ Ulcerations Neck: No Nodes, Thyroid Normal Size and Texture Lungs: Diminished, - - coarse breath sounds bilaterally Cardiovascular: Regular rate, Regular Rhythm, Normal S1, Normal S2 Abdomen: Bowel Sounds Present, Soft, Non Tender, Non-Distended, Obese Extremities: No edema, No Calf Tenderness Skin: No rashes, No breakdown Musculoskeletal: No Tenderness to Palpation of Joints or Extremities, No Muscle Wasting Psych/Mental Status: - - somnolent. Microbiology Past 72 Hours 03/06/18 16:00 Urine, Clean Catch Legionella Antigen - Final 03/06/18 16:00 Urine, Clean Catch Streptococcus pneumoniae Antigen (M - Final Streptococcus pneumonia Ag Laboratory Results 03/07/18 07:34: Specimen Type ART, Sample Site R Radial, pH 7.33 L, Bicarbonate Actual 34.3 H, POC Total CO2 36, Base Excess 8 H, O2 Saturation 89 L, O2 % 50, ABG pCO2 64.5 H, ABG pO2 62 L, Andry Test POS, O2 Delivery Device Vent Mask, Blood Gas Notified Whom [facility] , Blood Gas Notified Time 800 03/07/18 08:30: Vancomycin Trough Pending 03/07/18 08:30: WBC 9.3, RBC 3.44 L, Hgb 10.1 L, Hct 34.6 L, MCV 100.6 H, MCH 29.4, MCHC 29.2 L, RDW 15.8 H, RDW Differential 55.9 H, Plt Count 347, MPV 9.3, Immature Gran % (Auto) 1.700 H, Neut % (Auto) 72.5 H, Lymph % (Auto) 14.0 L, [place] % (Auto) 8.7, Eos % (Auto) 2.2, Baso % (Auto) 0.9, Absolute Neuts (auto) 6.8, Absolute Lymphs (auto) 1.30, Total Counted Not Reportable 03/07/18 08:30: Sodium Pending, Potassium Pending, Chloride Pending, Carbon Dioxide Pending, Anion Gap Pending, BUN Pending, Creatinine Pending, Est GFR (MDRD) Af Amer Pending, Est GFR (MDRD) Non-Af Pending, BUN/Creatinine Ratio Pending, Glucose Pending, Calcium Pending Current Medications Al Hydroxide/Mg Hydroxide (Mylanta Ii) 30 ml PO Q6H PRN PRN PRN Reason: Gastric burning Albuterol Sulfate (Ventolin Aerosols) 2.5 mg INHALATION Q2H PRN PRN PRN Reason: DYSPNEA Albuterol/Ipratropium (Duoneb) 3 ml INHALATION Q6H.RT [facility] Last Admin: 03/07/18 06:55 Dose: 3 ml Budesonide (Pulmicort Aerosol) 0.5 mg INHALATION BID.RT [facility] Last Admin: 03/07/18 06:55 Dose: 0.5 mg Enoxaparin Sodium (Lovenox) 40 mg SC DAILY@0600 [facility] Last Admin: 03/07/18 06:07 Dose: 40 mg Flecainide Acetate (Tambocor) 150 mg PO BID [facility] Last Admin: 03/06/18 21:47 Dose: 150 mg Fluticasone Propionate (Flonase Nasal [place]) 1 spray NASAL DAILY [facility] Last Admin: 03/06/18 09:40 Dose: 1 spray Guaifenesin (Mucinex) 1,200 mg PO BID [facility] Last Admin: 03/06/18 21:48 Dose: 1,200 mg Piperacillin Sod/Tazobactam Sod (Zosyn) 3.375 gm in 50 mls @ 12.5 mls/hr IV Q8 [facility] Last Admin: 03/07/18 06:07 Dose: 12.5 mls/hr Vancomycin Pharmacy to Dose 1 (ea/ Sodium Chloride) 500 mls @ 250 mls/hr IV UD PRN PRN Reason: Protocol Vancomycin HCl 1,500 mg/ (Sodium Chloride) 530 mls @ 250 mls/hr IV Q24H [facility] Last Admin: 03/07/18 09:01 Dose: 250 mls/hr Lidocaine (Lidoderm Patch) 1 patch TOPICAL DAILY [facility] PRN Reason: Protocol Last Admin: 03/07/18 09:09 Dose: 1 patch Lisinopril (Zestril) 10 mg PO DAILY [facility] Last Admin: 03/06/18 09:40 Dose: 10 mg Lorazepam (Ativan) 1 mg IV Q6H PRN PRN PRN Reason: RESTLESSNESS Last Admin: 03/07/18 06:36 Dose: 1 mg Magnesium Hydroxide (Milk Of Magnesia) 30 ml PO DAILY PRN PRN PRN Reason: Constipation Metoprolol Tartrate (Lopressor (Beta Katerine)) 25 mg PO BID [facility] Last Admin: 03/06/18 21:47 Dose: 25 mg Ondansetron HCl (Zofran Odt) 4 mg PO Q6H PRN PRN PRN Reason: NAUSEA Oxycodone HCl (Oxycontin) 20 mg PO BID [facility] Last Admin: 03/06/18 21:45 Dose: 20 mg Pantoprazole Sodium (Protonix) 40 mg PO BID [facility] Last Admin: 03/06/18 21:48 Dose: 40 mg Polyethylene Glycol (Miralax) 17 gm PO DAILY [facility] Last Admin: 03/06/18 09:40 Dose: 17 gm Polysaccharide Iron Complex (Ferrex 150) 150 mg PO DAILY [facility] Last Admin: 03/06/18 09:40 Dose: 150 mg Pramipexole Dihydrochloride (Mirapex) 0.5 mg PO TID [facility] Last Admin: 03/07/18 06:07 Dose: 0.5 mg Sodium Chloride () 5 - 30 ml IV UD PRN PRN Reason: SALINE FLUSH Last Admin: 03/07/18 06:36 Dose: 10 ml Venlafaxine HCl (Effexor Xr) 75 mg PO BID [facility] Last Admin: 03/06/18 21:48 Dose: 75 mg Medical Necessity - Tobacco Use Smoking Status: Never smoker Tobacco Use: Non-smoker Assessment/Plan All Active Problems (Last Updated 03/05/18 @ 00:52 by Joel Villasenor DO) Pneumococcal pneumonia (Acute) Acute respiratory failure with hypoxia (Acute) Toxic encephalopathy (Acute) Hip fracture (Resolved) Acute kidney injury (Resolved) Fall (Acute) Closed left hip fracture (Resolved) Chronic systolic heart failure (Resolved) Muscle spasm (Resolved) Weakness (Acute) Shortness of breath (Acute) Chronic combined systolic and diastolic CHF (congestive heart failure) (Resolved) 1. Acute on chronic hypoxic respiratory failure multifactorial pneumonia + ESPERANZA + obesity hypoventilation +COPD stable at this time. continue with bronchodilators hold off on steroids wean oxygen as tolerated this morning, pt had drop into 40s. Currently improved and now back on nasal canula. I suspect that this may have been a mucous plug. Will check CXR to see if any new findings. 2. Pneumococcal pneumonia urine antigen + for Strep reviewed CT imaging and there appears to be new infiltrate that was not present on earlier imaging. I do not feel it atelectasis given its extensive nature Pulmonary toilet DC vanc and zosyn. Start CTX 2g IV Q24 while hospitalized. Change to amoxicillin 1 g TID upon discharge. Continue antibiotics through 03/11/18 3. Toxic encephalopathy secondary to ativan and oxycodone DC ativan and PRN oxycodone and gabapentin no need for Narcan/flumazenil at this time. 4. HFpEF EF 55% on echo from 01/30/2018 BNP 792, but I do not think the patient is in acute CHF exacerbation hold off on lasix at this time on Metoprolol Tartrate and Lisinopril 5. EMMANUEL: resolved Creatinine 1.37 on admission. Baseline on 02/27 was 1.04. 6. Cervical neck strain, Left rotator cuff strain/tear, left hip pain. pain control. discussed with patient at length about maintaining pain control AND function on 03/06. Now with toxic encephalopathy, so changes made as above. informed will assist with non-narcotics no change to opiates at this time shoulder xray negative for fracture and dislocation follow up with Dr. Murillo for left hip ORIF follow up. 7. Dysphagia pt concerned about trouble swallow she has had what sounds like an esophageal dilation for a possible stricture 9-10 years ago. Has not followed up since then Complains of vomiting when she eats breads or meats for years. I told her that she will need to follow up with GI as outpt for endoscopy. Given that this a chronic problem and not new, this will need to be done as outpt. In the meantime, she will need to be on a soft diet and no breads 8. DVT proph: with lovenox. DAVE RN Code Visit Inpatient E&M: 03382 Subs Hosp L3
[2018-03-07 09:22] LABS: Anion Gap 3 (5-15); BUN 21 mg/dL (7-18); Calcium,Total 8.5 mg/dL (8.5-10.1); Chloride 102 mmol/L (98-107); Creatinine, Serum 1.05 mg/dL (0.55-1.02); EST Glomerular Filtration Rate 56 mL/min (>60); Est Glom Filt Rate - Afr Amer 67 mL/min (>60); Glucose 80 mg/dL (74-106); Potassium 5.2 mmol/L (3.5-5.1); Sodium Level 138 mmol/L (136-145)
[2018-03-07 09:27] LABS: Vancomycin, Trough Level 12.5 ug/mL (5.0-15.0)
--- NOTE | 2018-03-07 09:32 | PN_ITS ---
Patient Problems: Active and Suspected Problems (Last Updated 03/05/18 @ 00:52 by Joel Villasenor DO) Pneumococcal pneumonia (Acute) Acute respiratory failure with hypoxia (Acute) Toxic encephalopathy (Acute) Weakness (Acute) Shortness of breath (Acute) Subjective: Complained of being short of breath earlier this morning. Pulse ox was 40%. Pt was noted to be anxious and received 1mg of IV Ativan. She was put on Venti mask at 50% and sats improved to the low 90s, however, she was somnolent. Vitals/I&O's: Vital Signs Temp Pulse Resp BP Pulse Ox 36.8 C 66 18 112/70 93 03/07/18 08:07 03/07/18 08:07 03/07/18 08:22 03/07/18 08:07 03/07/18 08:22 Oxygen Flow Rate (L/min) 5 Oxygen Delivery Method Nasal Cannula Weight: 122.1 kg Body Mass Index (BMI) 46.2 Intake and Output for Last 24 Hours 03/05/18 03/06/18 03/07/18 23:59 23:59 23:59 Intake Total 2427 / 2427 1555 / 1555 1405 / 1405 Output Total 700 / 700 1700 / 1700 300 / 300 Balance 1727 / 1727 -145 / -145 1105 / 1105 General: - - somnolent. awakens briefly to voice, only to doze off again. HEENT: Atraumatic, Normocephalic Oral: Moist Mucosa, No Gingival or Mucosal Lesions/ Ulcerations Neck: No Nodes, Thyroid Normal Size and Texture Lungs: Diminished, - - coarse breath sounds bilaterally Cardiovascular: Regular rate, Regular Rhythm, Normal S1, Normal S2 Abdomen: Bowel Sounds Present, Soft, Non Tender, Non-Distended, Obese Extremities: No edema, No Calf Tenderness Skin: No rashes, No breakdown Musculoskeletal: No Tenderness to Palpation of Joints or Extremities, No Muscle Wasting Psych/Mental Status: - - somnolent. Microbiology Past 72 Hours 03/06/18 16:00 Urine, Clean Catch Legionella Antigen - Final 03/06/18 16:00 Urine, Clean Catch Streptococcus pneumoniae Antigen (M - Final Streptococcus pneumonia Ag Laboratory Results 03/07/18 07:34: Specimen Type ART, Sample Site R Radial, pH 7.33 L, Bicarbonate Actual 34.3 H, POC Total CO2 36, Base Excess 8 H, O2 Saturation 89 L, O2 % 50, ABG pCO2 64.5 H, ABG pO2 62 L, Andry Test POS, O2 Delivery Device Vent Mask, Blood Gas Notified Whom [facility] , Blood Gas Notified Time 800 03/07/18 08:30: Vancomycin Trough Pending 03/07/18 08:30: WBC 9.3, RBC 3.44 L, Hgb 10.1 L, Hct 34.6 L, MCV 100.6 H, MCH 29.4, MCHC 29.2 L, RDW 15.8 H, RDW Differential 55.9 H, Plt Count 347, MPV 9.3, Immature Gran % (Auto) 1.700 H, Neut % (Auto) 72.5 H, Lymph % (Auto) 14.0 L, [place] % (Auto) 8.7, Eos % (Auto) 2.2, Baso % (Auto) 0.9, Absolute Neuts (auto) 6.8, Absolute Lymphs (auto) 1.30, Total Counted Not Reportable 03/07/18 08:30: Sodium Pending, Potassium Pending, Chloride Pending, Carbon Dioxide Pending, Anion Gap Pending, BUN Pending, Creatinine Pending, Est GFR ( MDRD) Af Amer Pending, Est GFR (MDRD) Non-Af Pending, BUN/Creatinine Ratio Pending, Glucose Pending, Calcium Pending Current Medications Al Hydroxide/Mg Hydroxide (Mylanta Ii) 30 ml PO Q6H PRN PRN PRN Reason: Gastric burning Albuterol Sulfate (Ventolin Aerosols) 2.5 mg INHALATION Q2H PRN PRN PRN Reason: DYSPNEA Albuterol/Ipratropium (Duoneb) 3 ml INHALATION Q6H.RT [facility] Last Admin: 03/07/18 06:55 Dose: 3 ml Budesonide (Pulmicort Aerosol) 0.5 mg INHALATION BID.RT [facility] Last Admin: 03/07/18 06:55 Dose: 0.5 mg Enoxaparin Sodium (Lovenox) 40 mg SC DAILY@0600 [facility] Last Admin: 03/07/18 06:07 Dose: 40 mg Flecainide Acetate (Tambocor) 150 mg PO BID [facility] Last Admin: 03/06/18 21:47 Dose: 150 mg Fluticasone Propionate (Flonase Nasal [place]) 1 spray NASAL DAILY [facility] Last Admin: 03/06/18 09:40 Dose: 1 spray Guaifenesin (Mucinex) 1,200 mg PO BID [facility] Last Admin: 03/06/18 21:48 Dose: 1,200 mg Piperacillin Sod/Tazobactam Sod (Zosyn) 3.375 gm in 50 mls @ 12.5 mls/hr IV Q8 [facility] Last Admin: 03/07/18 06:07 Dose: 12.5 mls/hr Vancomycin Pharmacy to Dose 1 (ea/ Sodium Chloride) 500 mls @ 250 mls/hr IV UD PRN PRN Reason: Protocol Vancomycin HCl 1,500 mg/ (Sodium Chloride) 530 mls @ 250 mls/hr IV Q24H [facility] Last Admin: 03/07/18 09:01 Dose: 250 mls/hr Lidocaine (Lidoderm Patch) 1 patch TOPICAL DAILY [facility] PRN Reason: Protocol Last Admin: 03/07/18 09:09 Dose: 1 patch Lisinopril (Zestril) 10 mg PO DAILY [facility] Last Admin: 03/06/18 09:40 Dose: 10 mg Lorazepam (Ativan) 1 mg IV Q6H PRN PRN PRN Reason: RESTLESSNESS Last Admin: 03/07/18 06:36 Dose: 1 mg Magnesium Hydroxide (Milk Of Magnesia) 30 ml PO DAILY PRN PRN PRN Reason: Constipation Metoprolol Tartrate (Lopressor (Beta Katerine)) 25 mg PO BID [facility] Last Admin: 03/06/18 21:47 Dose: 25 mg Ondansetron HCl (Zofran Odt) 4 mg PO Q6H PRN PRN PRN Reason: NAUSEA Oxycodone HCl (Oxycontin) 20 mg PO BID [facility] Last Admin: 03/06/18 21:45 Dose: 20 mg Pantoprazole Sodium (Protonix) 40 mg PO BID [facility] Last Admin: 03/06/18 21:48 Dose: 40 mg Polyethylene Glycol (Miralax) 17 gm PO DAILY [facility] Last Admin: 03/06/18 09:40 Dose: 17 gm Polysaccharide Iron Complex (Ferrex 150) 150 mg PO DAILY [facility] Last Admin: 03/06/18 09:40 Dose: 150 mg Pramipexole Dihydrochloride (Mirapex) 0.5 mg PO TID [facility] Last Admin: 03/07/18 06:07 Dose: 0.5 mg Sodium Chloride () 5 - 30 ml IV UD PRN PRN Reason: SALINE FLUSH Last Admin: 03/07/18 06:36 Dose: 10 ml Venlafaxine HCl (Effexor Xr) 75 mg PO BID [facility] Last Admin: 03/06/18 21:48 Dose: 75 mg Medical Necessity - Tobacco Use Smoking Status: Never smoker Tobacco Use: Non-smoker Assessment/Plan All Active Problems (Last Updated 03/05/18 @ 00:52 by Joel Villasenor, ) Pneumococcal pneumonia (Acute) Acute respiratory failure with hypoxia (Acute) Toxic encephalopathy (Acute) Hip fracture (Resolved) Acute kidney injury (Resolved) Fall (Acute) Closed left hip fracture (Resolved) Chronic systolic heart failure (Resolved) Muscle spasm (Resolved) Weakness (Acute) Shortness of breath (Acute) Chronic combined systolic and diastolic CHF (congestive heart failure) (Resolved ) 1. Acute on chronic hypoxic respiratory failure * multifactorial * pneumonia + ESPERANZA + obesity hypoventilation +COPD * stable at this time. * continue with bronchodilators * hold off on steroids * wean oxygen as tolerated * this morning, pt had drop into 40s. Currently improved and now back on nasal canula. I suspect that this may have been a mucous plug. Will check CXR to see if any new findings. 2. Pneumococcal pneumonia * urine antigen + for Strep * reviewed CT imaging and there appears to be new infiltrate that was not present on earlier imaging. * I do not feel it atelectasis given its extensive nature * Pulmonary toilet * DC vanc and zosyn. Start CTX 2g IV Q24 while hospitalized. Change to amoxicillin 1 g TID upon discharge. * Continue antibiotics through 03/11/18 3. Toxic encephalopathy * secondary to ativan and oxycodone * DC ativan and PRN oxycodone and gabapentin * no need for Narcan/flumazenil at this time. 4. HFpEF * EF 55% on echo from 01/30/2018 * BNP 792, but I do not think the patient is in acute CHF exacerbation * hold off on lasix at this time * on Metoprolol Tartrate and Lisinopril 5. EMMANUEL: * resolved * Creatinine 1.37 on admission. Baseline on 02/27 was 1.04. 6. Cervical neck strain, Left rotator cuff strain/tear, left hip pain. * pain control. * discussed with patient at length about maintaining pain control AND function on 03/06. Now with toxic encephalopathy, so changes made as above. * informed will assist with non-narcotics * no change to opiates at this time * shoulder xray negative for fracture and dislocation * follow up with Dr. Murillo for left hip ORIF follow up. 7. Dysphagia * pt concerned about trouble swallow * she has had what sounds like an esophageal dilation for a possible stricture 9 -10 years ago. Has not followed up since then * Complains of vomiting when she eats breads or meats for years. * I told her that she will need to follow up with GI as outpt for endoscopy. Given that this a chronic problem and not new, this will need to be done as outpt. * In the meantime, she will need to be on a soft diet and no breads 8. DVT proph: with lovenox. DAVE RN Code Visit Inpatient E&M: 86483 Subs Hosp L3
[2018-03-07] MEDS: Iron Polysaccharide Complex 150 MG CAPSULE PO (10:42)
[2018-03-07] MEDS: Polyethylene Glycol 3350 17 GM PACKET PO (10:42)
[2018-03-07] MEDS: Fluticasone 0.05% 1 SPRAY NASAL.SRY NASAL (10:42)
[2018-03-07] MEDS: Metoprolol Tartrate 25 MG Tablet PO ×2 (10:42→21:05)
[2018-03-07] MEDS: Venlafaxine XR 75 MG Capsule PO ×2 (10:42→21:04)
[2018-03-07] MEDS: guaiFENesin 1,200 MG Tablet 1200 MG PO ×2 (10:42→21:03)
[2018-03-07] MEDS: Flecainide 150 MG Tablet PO ×2 (10:43→21:04)
[2018-03-07] MEDS: Pantoprazole Sodium 40 MG Tablet PO ×2 (10:43→21:03)
--- NOTE | 2018-03-07 10:45 | CASEMGMT ---
Social Work Note SW received message from Ree at [facility] stating that she received a message from [employer] this morning stating that the collaboration from [facility] to [employer] hasn't been completed yet. Ree provided reference number [id number]. ANGLE placed a call to [employer] and left a message inquiring about what else is needed for collaboration between [facility] and [employer]. Per previous notes, this worker received a message from nurse reviewer Tonia yesterday with [facility] [facility] stating that she agreed to SNF placement at discharge. ANGLE waiting for call back from [employer]. Plan: [facility] pending pre-cert Leanne Holder BAIL ATTACHER, ACTUARIAL ANALYST
--- NOTE | 2018-03-07 12:22 | NURSING ---
This RN entered patient's room to assist with transfer to [facility]. Patient tolerated well- however, when patient went to pivot from [facility] to return to bed spo2 dropped into low 70's. Patient became anxious- 50% venti mask placed on pt at 15liters- spo2 increased to 90%. Dr. Duggan notified via cortext and RT called and notified of same- breathing tx requested and RT verbalized understanding and states she will be to unit shortly.
--- NOTE | 2018-03-07 12:26 | RAD_ITS ---
STUDY: X-RAY CHEST REASON FOR EXAM: Female, 67 years old. SOB / SOA TECHNIQUE: Single frontal view of the chest. COMPARISON: March 04, 2018 FINDINGS: Chronic appearing increased interstitial lung markings. There is improvement in the bilateral lower lobe infiltrates. There is no demonstrated pleural abnormality. Enlarged heart size. Normal mediastinum and leonid. Normal visualized pulmonary arteries. There is atherosclerotic calcification of the aortic arch with tortuosity. There are diffuse degenerative changes of the visualized thoracic spine. There is degenerative osteoarthritis of the bilateral shoulders. There is no demonstrated abnormality of the visualized soft tissue structures of the upper abdomen. RAD/Chest 1 View (Portable) IMPRESSION: Improvement in the right infiltrate. Improvement in the left lower lobe infiltrate. Stable pulmonary fibrosis. Electronically Signed: Jimmy Diaz MD at 16:59 EDT , Service support ,
--- NOTE | 2018-03-07 13:30 | NURSING ---
Pt has been alarming multiple times due to removing venti-mask from face- nasal cannula placed at this time and patient is leaving in place- spo2= 98 on 5L oxygen.
--- NOTE | 2018-03-07 13:52 | CASEMGMT ---
Social Work Note ANGLE faxed updated clinicals to Ree at [facility]. ANGLE informed Chyna that this worker left a message for [employer] in regards to previous note. ANGLE waiting for call back from [employer]. Plan: [facility] pending pre-cert Leanne Holder MANAGER PET, AGRICULTURAL ADVISER
--- NOTE | 2018-03-07 15:12 | CASEMGMT ---
Social Work Note ANGLE received message from Ree at [facility] stating that pre-cert has been obtained. ANGLE updated Dr. Duggan of this. Dr. Duggan states that pt could be medically ready for discharge either or Tuesday. SW in to update pt and pt's daughter Samantha present. SW updated pt and Samantha that [facility] as accepted pt and pre-cert has been obtained. Samantha states that she visited the facility and is agreeable to placement at [facility]. Pt states I don't want to go there, I want to go home. It should be noted that when this worker spoke with pt yesterday she was agreeable to placement and wanted this worker to talk to her daughter about placement. ANGLE informed pt and Samantha that pt is not medically cleared yet to be discharged and that this worker will check with pt and Samantha on . Pt and Samantha states understanding. ANGLE placed a call to Ree at [facility] stating that pt is not medically cleared yet for discharge and pt could possibly be discharged or Tuesday. Ree states understanding. ANGLE placed Green Sheet on pt's chart in the event that pt is able to discharge tomorrow to [facility]. Convalescent 7000 completed in [facility]. Plan: Discharge to [facility] under skilled when medically cleared Leanne Holder SLAT GRADER, STORAGE ARCHITECT
[2018-03-07] MEDS: Haloperidol Lactate 5 MG/ML Vial 4 MG IM (21:02)
[2018-03-08] VITALS (18 sets, daily range): BP systolic 118–151; BP diastolic 67–78; PULSE 58–79; RESP 16–20; TEMP 36.4–36.9; O2SAT 92–96
[2018-03-08] MEDS: Acetaminophen 325 MG Tablet 650 MG PO ×2 (00:27→04:32)
[2018-03-08] MEDS: Ipratropium/Albuterol Sulfate 3 ML AMPUL.NEB INHALATION ×3 (03:30→19:35)
[2018-03-08] MEDS: Albuterol 2.5 MG/3 ML VIAL.NEB. INHALATION (06:51)
[2018-03-08] MEDS: Budesonide Respules 0.5 MG/2 ML AMPUL.NEB. INHALATION ×2 (06:51→19:35)
[2018-03-08] MEDS: Pramipexole Di-HCl 0.5 MG Tablet PO ×3 (06:51→22:44)
[2018-03-08] MEDS: Enoxaparin 40 MG/0.4 ML Syringe SC (06:52)
[2018-03-08 07:30] LABS: Absolute Neutrophil Count 7.8 X10^3/uL (2.0-7.7); Basophil# 0.03 X10^3/uL; Basophil% 0.3 % (0-1); Eosinophil# 0.16 X10^3/uL; Eosinophils% 1.6 % (0-5); Hematocrit 34.8 % (37-47); Hemoglobin 10.1 g/dl (12.0-15.0); Lymphocyte % 12.1 % (19-41); Mean Corpuscular Hgb 28.8 pg (27.0-32.0); Mean Corpuscular Volume 99.1 fL (81-99); Mean Platelet Vol. 9.3 fl (6.2-12.0); Monocyte# 0.61 X10^3/uL; Monocyte% 6.2 % (0-10); Neutrophil % 78.9 % (47-70); Platelet Count 333 K/mm3 (150-450); RBC Distribution Width CV 15.8 % (11.6-14.6); RBC Distribution Width SD 56.7 fl (35.1-43.9); Red Blood Count 3.51 M/mm3 (4.2-5.4); White Blood Count 9.9 K/mm3 (4.4-11.0)
[2018-03-08 07:34] LABS: POSITIVE COUNT NO
[2018-03-08 07:35] LABS: POSITIVE DIFFERENTIAL NO; POSITIVE MORPHOLOGY NO
[2018-03-08 07:37] LABS: Anion Gap 5 (5-15); BUN 17 mg/dL (7-18); BUN/Creat Ratio 14.7 RATIO (10-20); Calcium,Total 8.6 mg/dL (8.5-10.1); Chloride 102 mmol/L (98-107); Creatinine, Serum 1.16 mg/dL (0.55-1.02); EST Glomerular Filtration Rate 50 mL/min (>60); Est Glom Filt Rate - Afr Amer 60 mL/min (>60); Estimated Creatinine Clearance 40.64 ml/min; Glucose 84 mg/dL (74-106); Potassium 4.9 mmol/L (3.5-5.1); Sodium Level 138 mmol/L (136-145)
--- NOTE | 2018-03-08 08:16 | PN_ITS ---
Patient Problems: Active and Suspected Problems (Last Updated 03/05/18 @ 00:52 by Joel Villasenor DO) Toxic encephalopathy (Acute) Acute respiratory failure with hypoxia (Acute) Pneumococcal pneumonia (Acute) Weakness (Acute) Shortness of breath (Acute) Subjective: Patient is a 67 year old lady with multiple comorbidities including chronic congestive heart failure, chronic hypoxic respiratory failure, obesity hypoventilation syndrome COPD admitted with progressive shortness of breath. Patient assessment was consistent with acute on chronic hypoxic respiratory failure secondary to pneumococcal pneumonia. 03/08/2018: Patient seen complains of excruciating pain in the left hip as well as left shoulder was on narcotics discontinued subsequently started on Toradol. Also requires high flow oxygen 6 L at baseline Objective: GENERAL: Patient appears to be in some distress. HEENT: Clear conjunctiva, NECK; supple, normal thyroid, CHEST: Diminished to auscultation bilaterally, HEART: Regular S1 S2, ABDOMEN: soft, non-tender, normoactive bowel sounds, RECTAL: deferred EXTREMITIES: No edema, no clubbing, SOFTWARE DEVELOPMENT ANALYST: Awake; no lateralizing signs. SKIN: No Rash Vitals/I&O's: Vital Signs Temp Pulse Resp BP Pulse Ox 98.5 F 66 18 118/67 94 03/08/18 07:51 03/08/18 07:51 03/08/18 07:51 03/08/18 07:51 03/08/18 07:51 Oxygen Flow Rate (L/min) 6 Oxygen Delivery Method Nasal Cannula Weight: 122.1 kg Body Mass Index (BMI) 46.2 Intake and Output for Last 24 Hours 03/06/18 03/07/18 03/08/18 23:59 23:59 23:59 Intake Total 1555 / 1555 2275 / 2275 700 / 700 Output Total 1700 / 1700 700 / 700 1250 / 1250 Balance -145 / -145 1575 / 1575 -550 / -550 Microbiology Past 72 Hours 03/06/18 16:00 Urine, Clean Catch Legionella Antigen - Final 03/06/18 16:00 Urine, Clean Catch Streptococcus pneumoniae Antigen (M - Final Streptococcus pneumonia Ag Laboratory Results 03/07/18 08:30: Vancomycin Trough 12.5 03/07/18 08:30: WBC 9.3, RBC 3.44 L, Hgb 10.1 L, Hct 34.6 L, MCV 100.6 H, MCH 29.4, MCHC 29.2 L, RDW 15.8 H, RDW Differential 55.9 H, Plt Count 347, MPV 9.3, Immature Gran % (Auto) 1.700 H, Neut % (Auto) 72.5 H, Lymph % (Auto) 14.0 L, [place] % (Auto) 8.7, Eos % (Auto) 2.2, Baso % (Auto) 0.9, Absolute Neuts (auto) 6.8, Absolute Lymphs (auto) 1.30, Total Counted Not Reportable 03/07/18 08:30: Sodium 138, Potassium 5.2 H, Chloride 102, Carbon Dioxide 33.0 H , Anion Gap 3 L, BUN 21 H, Creatinine 1.05 H, Estim Creat Clear Calc 44.90, Est GFR (MDRD) Af Amer 67, Est GFR (MDRD) Non-Af 56 L, BUN/Creatinine Ratio 20.0, Glucose 80, Calcium 8.5 03/08/18 07:00: WBC 9.9, RBC 3.51 L, Hgb 10.1 L, Hct 34.8 L, MCV 99.1 H, MCH 28.8, MCHC 29.0 L, RDW 15.8 H, RDW Differential 56.7 H, Plt Count 333, MPV 9.3, Immature Gran % (Auto) 0.900, Neut % (Auto) 78.9 H, Lymph % (Auto) 12.1 L, [place] % (Auto) 6.2, Eos % (Auto) 1.6, Baso % (Auto) 0.3, Absolute Neuts (auto) 7.8 H, Absolute Lymphs (auto) 1.20, Total Counted Not Reportable 03/08/18 07:00: Sodium 138, Potassium 4.9, Chloride 102, Carbon Dioxide 31.0, Anion Gap 5, BUN 17, Creatinine 1.16 H, Estim Creat Clear Calc 40.64, Est GFR ( MDRD) Af Amer 60, Est GFR (MDRD) Non-Af 50 L, BUN/Creatinine Ratio 14.7, Glucose 84, Calcium 8.6 Current Medications Acetaminophen (Tylenol) 650 mg PO Q4H PRN PRN PRN Reason: PAIN Last Admin: 03/08/18 04:32 Dose: 650 mg Al Hydroxide/Mg Hydroxide (Mylanta Ii) 30 ml PO Q6H PRN PRN PRN Reason: Gastric burning Albuterol Sulfate (Ventolin Aerosols) 2.5 mg INHALATION Q2H PRN PRN PRN Reason: DYSPNEA Last Admin: 03/08/18 06:51 Dose: 2.5 mg Albuterol/Ipratropium (Duoneb) 3 ml INHALATION Q6H.RT [facility] Last Admin: 03/08/18 03:30 Dose: 3 ml Budesonide (Pulmicort Aerosol) 0.5 mg INHALATION BID.RT [facility] Last Admin: 03/08/18 06:51 Dose: 0.5 mg Enoxaparin Sodium (Lovenox) 40 mg SC DAILY@0600 [facility] Last Admin: 03/08/18 06:52 Dose: 40 mg Flecainide Acetate (Tambocor) 150 mg PO BID [facility] Last Admin: 03/07/18 21:04 Dose: 150 mg Fluticasone Propionate (Flonase Nasal [place]) 1 spray NASAL DAILY [facility] Last Admin: 03/07/18 10:42 Dose: 1 spray Guaifenesin (Mucinex) 1,200 mg PO BID [facility] Last Admin: 03/07/18 21:03 Dose: 1,200 mg Ceftriaxone Sodium 2 gm/ (Dextrose) 50 mls @ 100 mls/hr IV Q24 [facility] Last Admin: 03/07/18 12:06 Dose: 100 mls/hr Lidocaine (Lidoderm Patch) 1 patch TOPICAL DAILY [facility] PRN Reason: Protocol Last Admin: 03/07/18 09:09 Dose: 1 patch Lisinopril (Zestril) 10 mg PO DAILY [facility] Last Admin: 03/07/18 10:44 Dose: Not Given Magnesium Hydroxide (Milk Of Magnesia) 30 ml PO DAILY PRN PRN PRN Reason: Constipation Metoprolol Tartrate (Lopressor (Beta Katerine)) 25 mg PO BID [facility] Last Admin: 03/07/18 21:05 Dose: 25 mg Ondansetron HCl (Zofran Odt) 4 mg PO Q6H PRN PRN PRN Reason: NAUSEA Oxycodone HCl (Oxycontin) 20 mg PO BID [facility] Last Admin: 03/07/18 21:02 Dose: 20 mg Pantoprazole Sodium (Protonix) 40 mg PO BID [facility] Last Admin: 03/07/18 21:03 Dose: 40 mg Polyethylene Glycol (Miralax) 17 gm PO DAILY [facility] Last Admin: 03/07/18 10:42 Dose: 17 gm Polysaccharide Iron Complex (Ferrex 150) 150 mg PO DAILY [facility] Last Admin: 03/07/18 10:42 Dose: 150 mg Pramipexole Dihydrochloride (Mirapex) 0.5 mg PO TID [facility] Last Admin: 03/08/18 06:51 Dose: 0.5 mg Sodium Chloride () 5 - 30 ml IV UD PRN PRN Reason: SALINE FLUSH Last Admin: 03/07/18 06:36 Dose: 10 ml Venlafaxine HCl (Effexor Xr) 75 mg PO BID [facility] Last Admin: 03/07/18 21:04 Dose: 75 mg Medical Necessity - Tobacco Use Smoking Status: Never smoker Tobacco Use: Non-smoker Assessment/Plan All Active Problems (Last Updated 03/05/18 @ 00:52 by Joel Villasenor DO) Toxic encephalopathy (Acute) Acute respiratory failure with hypoxia (Acute) Pneumococcal pneumonia (Acute) Hip fracture (Resolved) Acute kidney injury (Resolved) Fall (Acute) Closed left hip fracture (Resolved) Chronic systolic heart failure (Resolved) Muscle spasm (Resolved) Weakness (Acute) Shortness of breath (Acute) Chronic combined systolic and diastolic CHF (congestive heart failure) (Resolved ) Patient is a 67 year old lady with multiple comorbidities including chronic congestive heart failure, chronic hypoxic respiratory failure, obesity hypoventilation syndrome COPD admitted with progressive shortness of breath. Patient assessment was consistent with acute on chronic hypoxic respiratory failure secondary to pneumococcal pneumonia. 1. Acute on chronic hypoxic respiratory failure due to combination of factors including patient pneumococcal pneumonia, obstructive sleep apnea, obesity hypoventilation syndrome and COPD patient is being managed per protocol with supplemental oxygen and treatment of underlying condition 2. Pneumococcal pneumonia patient has been managed with ceftriaxone in addition to supplemental oxygen and pulmonary toileting 3. Acute infectious encephalopathy and toxic encephalopathy (secondary to use of benzos as well as opioids - since discontinued) 4. Acute kidney injury resolved 5. Recent fall with Cervical neck strain, Left rotator cuff strain/tear, left hip pain. Urine studies negative for fractures. Requested for PT OT eval with plans for patient to follow-up with orthopedic surgery regarding the left rotator cuff strain outpatient 6. Acute on chronic diastolic congestive heart failure (HFpEF ~ EF 55% on echo from 01/30/2018) was on Lasix previously held due to worsening kidney function also on carey inhibitors as well as beta-blockers 7. Dysphagia with previous history of esophageal dilatation for suspected stricture in the past (over 9 years ago) plan is for patient to follow-up with GI when stable for reevaluation 8. Hypertension-blood pressure controlled, home medications continued with dose adjustment as needed 9. GERD patient is on PPI 10. Restless leg syndrome patient is on Requip 11. 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 with BMI of 46.2 lifestyle modification including weight loss advised 12. Depression patient is on SSRI 13. DVT prophylaxis patient is on Lovenox Code Visit Inpatient E&M: 16760 Subs Hosp L3 Code Visit Inpatient E&M: 17021 Subs Hosp L3
[2018-03-08] MEDS: Ketorolac 15 MG/ML Vial IV ×2 (09:16→17:51)
[2018-03-08] MEDS: guaiFENesin 1,200 MG Tablet 1200 MG PO ×2 (09:17→22:44)
[2018-03-08] MEDS: Pantoprazole Sodium 40 MG Tablet PO ×2 (09:17→22:44)
[2018-03-08] MEDS: 0.9% NaCl Peripheral Flush Adult/Peds IV (09:17)
[2018-03-08] MEDS: Venlafaxine XR 75 MG Capsule PO ×2 (09:17→22:44)
[2018-03-08] MEDS: Metoprolol Tartrate 25 MG Tablet PO ×2 (09:18→22:44)
[2018-03-08] MEDS: Lidocaine 5% Patch 1 PATCH TOPICAL (09:19)
[2018-03-08] MEDS: Fluticasone 0.05% 1 SPRAY NASAL.SRY NASAL (09:20)
[2018-03-08] MEDS: Flecainide 150 MG Tablet PO ×2 (09:20→22:44)
[2018-03-08] MEDS: Iron Polysaccharide Complex 150 MG CAPSULE PO (09:21)
[2018-03-08] MEDS: Lisinopril 10 MG Tablet PO (09:21)
[2018-03-09] VITALS (8 sets, daily range): BP systolic 140–155; BP diastolic 76–77; PULSE 63–87; RESP 16–18; TEMP 36.8; O2SAT 93–95
[2018-03-09] MEDS: 0.9% NaCl Peripheral Flush Adult/Peds IV ×3 (00:11→10:12)
[2018-03-09] MEDS: Ketorolac 15 MG/ML Vial IV ×2 (00:11→05:58)
[2018-03-09] MEDS: Ipratropium/Albuterol Sulfate 3 ML AMPUL.NEB INHALATION ×2 (01:44→06:41)
[2018-03-09] MEDS: Pramipexole Di-HCl 0.5 MG Tablet PO (05:58)
[2018-03-09] MEDS: Enoxaparin 40 MG/0.4 ML Syringe SC (05:58)
[2018-03-09 06:27] LABS: Hematocrit 34.4 % (37-47); Hemoglobin 10.8 g/dl (12.0-15.0); Mean Corp Hgb Conc 31.4 g/gl (32-36); Mean Corpuscular Hgb 30.3 pg (27.0-32.0); Mean Corpuscular Volume 96.6 fL (81-99); Mean Platelet Vol. 9.4 fl (6.2-12.0); Platelet Count 380 K/mm3 (150-450); RBC Distribution Width CV 15.6 % (11.6-14.6); RBC Distribution Width SD 52.4 fl (35.1-43.9); Red Blood Count 3.56 M/mm3 (4.2-5.4); White Blood Count 10.9 K/mm3 (4.4-11.0)
[2018-03-09 06:32] LABS: Scan Indicated on CBC? Y/N NO
[2018-03-09 06:41] LABS: Anion Gap 7 (5-15); BUN 16 mg/dL (7-18); BUN/Creat Ratio 16.1 RATIO (10-20); Chloride 102 mmol/L (98-107); EST Glomerular Filtration Rate 59 mL/min (>60); Est Glom Filt Rate - Afr Amer 71 mL/min (>60); Estimated Creatinine Clearance 47.14 ml/min; Glucose 101 mg/dL (74-106); Magnesium 2.2 mg/dL (1.6-2.6); Potassium 4.6 mmol/L (3.5-5.1); Sodium Level 139 mmol/L (136-145)
[2018-03-09] MEDS: Budesonide Respules 0.5 MG/2 ML AMPUL.NEB. INHALATION (06:41)
--- NOTE | 2018-03-09 10:03 | TREXTCAR_ITS ---
- Diet 03/05/18 23:44 Diet: Regular Diet Food consistency:: Mechanical Soft/Ground Liquid Consistency:: Regular/Thin Diet Comments: Chin tuck, reduced bolus volume, seated upright at 90? during p.o. intake - Wound(s) BUE Wound Type: Abrasion Left Hip Wound Type: nonhealing dehisced area of incision Dressing Change: Dry Sterile Dressing - Therapies Physical Therapy: Eval and Treat Occupational Therapy: Eval and Treat - Allergies/Procedures Done in Hospital Allergies/Adverse Reactions: Allergies ciprofloxacin [From Cipro] Adverse Reaction (Intermediate, Verified 01/28/18 10: 32) Other messes with her heart medicine - Type of Care/Length of Stay Estimated LOS: Convalescent Care Less Than 30 days Type of Care Needed: Skilled Rehab Potential: Fair Prognosis: Fair - Additional Orders/Day of Discharge Day of Discharge: 03/09/18 - Dietary and Speech Recommendations Dietitian Recommendations/Changes: Does NOT like mech soft diet and does not want food cut or ground up as it ruins it for me - I will take my time - wants food in natural state. Rec diet change to Cardiac / low sodium w/ fluid restriction as indicated. Will d/c ONS medpass as pt feels she doesn't need it and will not drink it. - Follow Up Care Primary Care Physician: Reagan He MD [Primary Care Provider] -
--- NOTE | 2018-03-09 10:05 | DS.PCM_ITS ---
Discharge Date and Diagnosis - Problem List Patient Problems: Active and Suspected Problems (Last Updated 03/05/18 @ 00:52 by Joel Villasenor DO) Weakness (Acute) Shortness of breath (Acute) Date of Admission: 03/04/18 Date of Discharge: 03/09/18 - Primary Discharge Diagnosis Active and Suspected Problems (Last Updated 03/05/18 @ 00:52 by Joel Villasenor DO) Weakness (Acute) Shortness of breath (Acute) - Secondary Discharge Diagnosis Chronic Problems (Last Updated 03/05/18 @ 00:52 by Joel Villasenor DO) ESPERANZA (obstructive sleep apnea) (Chronic) Chronic respiratory failure with hypoxia (Chronic) Anxiety (Chronic) Depression (Chronic) Osteoarthritis (Chronic) Pulmonary nodules (Chronic) Left ventricular hypertrophy (Chronic) Back pain (Chronic) Super 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) GERD (gastroesophageal reflux disease) (Chronic) Non-sustained ventricular tachycardia (Chronic) Dysmetabolic syndrome (Chronic) Hypertension (Chronic) 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) 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 (Chronic) Paroxysmal atrial fibrillation (Chronic) Asthma (Chronic) COPD (chronic obstructive pulmonary disease) (Chronic) Hospital Course and Treatment Imaging Results: Clinical Impression(s) from Imaging Studies Chest X-Ray 03/04/18 15:59 IMPRESSION: Bibasilar opacities likely represent atelectasis, however consolidations cannot be completely excluded. These are slightly more pronounced on the right side. There is moderate enlargement of the cardiac silhouette with mild edema. There is no obvious effusion, although subpulmonic fluid cannot be excluded on the right side. There is probable diffuse fibrosis. Electronically Signed: Ree Fofana MD at 17:11 EDT Tel Direct: [phone], Service support , Femur X-Ray 03/04/18 16:03 IMPRESSION: No acute abnormalities are seen in the left upper leg. Electronically Signed: Ree Fofana MD at 18:53 EDT Tel Direct: [phone], Service support , Pelvis X-Ray 03/04/18 16:03 IMPRESSION: No acute abnormalities are seen in the pelvis. Electronically Signed: Ree Fofana MD at 18:49 EDT Tel Direct: [phone], Service support , Tibia/Fibula X-Ray 03/04/18 16:03 IMPRESSION: No acute abnormalities are seen in the left lower leg. Electronically Signed: Ree Fofana MD at 18:46 EDT Tel Direct: [phone], Service support , Chest CTA 03/04/18 22:44 IMPRESSION: 1. No evidence of pulmonary embolism or aortic dissection. 2. Bilateral lower lobe linear segment areas of airspace disease/consolidation with underlying aspiration pneumonia not excluded, clinically correlate. Electronically Signed: Bandar Burrell DO at 23:38 EDT , Service support , Shoulder X-Ray 03/06/18 12:15 IMPRESSION: No acute abnormality is seen. Electronically Signed: Ivan Arce MD at 14:50 EDT Tel [phone], Service support , Chest X-Ray 03/07/18 12:26 IMPRESSION: Improvement in the right infiltrate. Improvement in the left lower lobe infiltrate. Stable pulmonary fibrosis. Electronically Signed: Jimmy Diaz MD at 16:59 EDT , Service support , Consultations 03/05/18 18:07 Consult: Onc/Wound/link knitting machine operator Routine Comment: unhealed wound to L hip from previous surgery Reason for Consult:: unhealed wound to L hip from previous surgery Operations: None Summary of Care Provided: Patient is a 67 year old lady with multiple comorbidities including chronic congestive heart failure, chronic hypoxic respiratory failure, obesity hypoventilation syndrome COPD admitted with progressive shortness of breath. Patient assessment was consistent with acute on chronic hypoxic respiratory failure secondary to pneumococcal pneumonia. 1. Acute on chronic hypoxic respiratory failure due to combination of factors including patient pneumococcal pneumonia, obstructive sleep apnea, obesity hypoventilation syndrome and COPD patient is being managed per protocol with supplemental oxygen and treatment of underlying condition 2. Pneumococcal pneumonia patient has been managed with ceftriaxone in addition to supplemental oxygen and pulmonary toileting 3. Acute infectious encephalopathy and toxic encephalopathy (secondary to use of benzos as well as opioids - since discontinued) 4. Acute kidney injury resolved 5. Recent fall with Cervical neck strain, Left rotator cuff strain/tear, left hip pain. Urine studies negative for fractures. Requested for PT OT eval with plans for patient to follow-up with orthopedic surgery regarding the left rotator cuff strain outpatient 6. Acute on chronic diastolic congestive heart failure (HFpEF ~ EF 55% on echo from 01/30/2018) was on Lasix previously held due to worsening kidney function also on carey inhibitors as well as beta-blockers 7. Dysphagia with previous history of esophageal dilatation for suspected stricture in the past (over 9 years ago) plan is for patient to follow-up with GI when stable for reevaluation 8. Hypertension-blood pressure controlled, home medications continued with dose adjustment as needed 9. GERD patient is on PPI 10. Restless leg syndrome patient is on Requip 11. 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 with BMI of 46.2 lifestyle modification including weight loss advised 12. Depression patient is on SSRI 13. DVT prophylaxis patient is on Lovenox Discharge Diet: No Restrictions Discharge Activity: No Restrictions Home Medications: Medications to take at Discharge Albuterol Inhaler [Ventolin Hfa] 1 puff INHALATION Q4H PRN PRN 08/08/13 Fluticasone 0.05% [Flonase Nasal [place]] 1 spray NASAL DAILY 08/08/13 Ipratropium [Atrovent Aerosols] 0.25 mg INHALATION TID 08/08/13 Lisinopril [Zestril] 10 mg PO DAILY 08/08/13 Ropinirole HCl [Requip] 1 mg PO TID 02/18/14 flecainide 150 mg tablet 150 mg PO BID 08/16/17 Venlafaxine HCl [Venlafaxine HCl ER] 75 mg PO BID 01/28/18 Budesonide/Formoterol 160/4.5 2 inhaler IH BID 01/30/18 Fluticasone/Salmeterol [Fluticasone-Salmeterol 232-14] 1 puff INHALATION BID Mag Hydrox/Al Hydrox/Simeth [Mylanta II] 30 ml PO Q6H PRN PRN udc 02/01/18 Metoprolol Tartrate [Lopressor (beta bairon)] 25 mg PO BID 02/01/18 Omeprazole [Prilosec] 40 mg PO BID 02/01/18 Acetaminophen [Tylenol] 1,000 mg PO Q8 tablet 02/28/18 Gabapentin [Neurontin] 300 mg PO QHS #30 cap 02/28/18 Guaifenesin [Mucinex] 1,200 mg PO BID #60 tab 02/28/18 Iron Polysaccharide Complex [Ferrex 150] 150 mg PO DAILYCM #30 cap 02/28/18 Menthol [Bengay Vanishing Scent] 1 applic TOPICAL TID PRN PRN tube 02/28/18 Menthol/Lanolin/Calamine/Znox [Calmoseptine Ointment] 1 applic TOPICAL 4X/DAY tube 02/28/18 Nystatin Powder [Mycostatin Powder] 1 applic TOPICAL TID bottle 02/28/18 Ondansetron [Zofran Odt] 4 mg PO Q6H PRN PRN #60 tab 02/28/18 Polyethylene Glycol 3350 [Miralax] 17 gm PO DAILY #30 packet 02/28/18 Cefdinir 300 mg PO BID #14 cap 03/09/18 Lidocaine [Lidoderm Patch] 1 patch TOPICAL DAILY patch 03/09/18 Magnesium Hydroxide [Milk Of Magnesia] 30 ml PO DAILY PRN PRN udc 03/09/18 Oxycodone CR [Oxycontin] 20 mg PO BID 5 Days #10 tab 03/09/18 Oxycodone [Oxyir] 5 mg PO Q4H PRN PRN #20 tab 03/09/18 Following Prescrptions Were Given to Patient: Cefdinir 300 mg PO BID #14 cap Oxycodone CR [Oxycontin] 20 mg PO BID 5 Days #10 tab Oxycodone [Oxyir] 5 mg PO Q4H PRN PRN #20 tab PRN Reason: Moderate Pain (pain scale 4-5) Primary Care Physician: Reagan He MD [Primary Care Provider] - Please follow up with your Primary Care Physician in: in 1-2 weeks Disposition: [facility] facility Minutes spent on discharge:: 35 Patient Condition:: Stable Medical Necessity - Tobacco Use Smoking Status: Never smoker Tobacco Use: Non-smoker Meaningful Use Info Meaningful Use Diagnoses (Choose all that apply): None applicable Code Visit Inpatient E&M: 28017 Disch Hosp
[2018-03-09] MEDS: Venlafaxine XR 75 MG Capsule PO (10:10)
[2018-03-09] MEDS: guaiFENesin 1,200 MG Tablet 1200 MG PO (10:10)
[2018-03-09] MEDS: Pantoprazole Sodium 40 MG Tablet PO (10:10)
[2018-03-09] MEDS: Metoprolol Tartrate 25 MG Tablet PO (10:10)
[2018-03-09] MEDS: Flecainide 150 MG Tablet PO (10:10)
[2018-03-09] MEDS: Lisinopril 10 MG Tablet PO (10:10)
[2018-03-09] MEDS: Iron Polysaccharide Complex 150 MG CAPSULE PO (10:11)
[2018-03-09] MEDS: Lidocaine 5% Patch 1 PATCH TOPICAL (10:11)
[2018-03-09] MEDS: Fluticasone 0.05% 1 SPRAY NASAL.SRY NASAL (10:11)
--- NOTE | 2018-03-09 10:20 | CASEMGMT ---
Social Work Note Pt is being discharged today. ANGLE placed a call to Ree at [facility] and informed her that pt will be discharged today. Ree states that pre-cert is still good for today. SW in to update pt of this. Pt agreeable to SNF today and states that her daughter should be able to transport her. Pt states that she has been unable to get a hold of her daughter. SW informed her that this worker will attempt to call daughter but if unable to then this worker will set up transportation. Pt states understanding and denied additional needs or concerns. Atmospheric Drier Tender Tyree states that she will follow green sheet on pt's chart and discharge pt. Atmospheric Drier Tender Tyree faxed discharge paperwork and set up transportation. Tyree states that she attempted to call pt's daughter and was unable to do so. This SW placed a call to pt's daughter Samantha and informed her that pt will be discharged today and that transportation is set up for 11:00pm. Samantha states understanding. Samantha denied additional needs or concerns at this time. Plan: Pt to discharge to [facility] via cot through [facility] at 11:00pm. ANGLE completed convalescent [facility] in [facility]. Leanne Holder MACHINE STONECUTTER, ORIENTOR
--- NOTE | 2018-03-09 10:38 | PCA ---
Faxed discharge information to Jurgen Naranjo. Set up transport through [facility] for [facility] by cot. Informed primary RN, fire extinguisher charger and SW, Leanne Harmon.
--- NOTE | 2018-03-09 11:28 | NURSING ---
report called to anni monroy.
== END 2018-03-09 11:10 | disposition skilled nursing facility (03) | DRG 193 ==
LOC: ED 16:58 → MS3 03-05 00:06
PROVIDERS: Admitting Provider Internal Medicine; Emergency Provider Emergency Medicine; Family Provider Internal Medicine; PCP Internal Medicine; Visit Provider Internal Medicine
DX: J13 Pneumonia due to Streptococcus pneumoniae (principal); J96.21 Acute and chronic respiratory failure with hypoxia; G92 Toxic encephalopathy; I50.33 Acute on chronic diastolic (congestive) heart failure; Z68.42 Body mass index [BMI] 45.0-49.9, adult; E66.2 Morbid (severe) obesity with alveolar hypoventilation; J44.9 Chronic obstructive pulmonary disease, unspecified; T42.4X5A Adverse effect of benzodiazepines, initial encounter; F32.9 Major depressive disorder, single episode, unspecified; M19.90 Unspecified osteoarthritis, unspecified site; F41.9 Anxiety disorder, unspecified; K21.9 Gastro-esophageal reflux disease without esophagitis; Z79.899 Other long term (current) drug therapy; I48.0 Paroxysmal atrial fibrillation; R13.12 Dysphagia, oropharyngeal phase
CPT/HCPCS: 36415; 36600; 71045; 71275; 72170; 73030; 73552; 73590; 80048; 80202; 81001; 82803; 83605; 83735; 83880; 84484; 85025; 85027; 87449; 92507; 92526; 92610; 93005; 94640; 94667; 94668; 97110; 97150; 97162; 97166; 97530; 97802; 99251; 99285; J7030; J7040; P9612; Q9967; A4216; G0463; J0696; J2405

== ENCOUNTER → 2018-04-24 15:46 | Outpatient (CLI) | payer MEDICARE, SELFPAY ==
[2018-04-24 17:34] LABS: Absolute Lymphocyte Count 0.95 X10^3/ul (0.83-4.51); Absolute Neutrophil Count 9.6 X10^3/uL (2.0-7.7); Basophil# 0.04 X10^3/uL; Basophil% 0.3 % (0-1); Eosinophil# 0.38 X10^3/uL; Eosinophils% 3.1 % (0-5); Hematocrit 41.3 % (37-47); Hemoglobin 12.3 g/dl (12.0-15.0); Lymphocyte # 0.95 X10^3/ul (4.0); Lymphocyte % 7.8 % (19-41); Mean Corp Hgb Conc 29.8 g/gl (32-36); Mean Corpuscular Hgb 28.9 pg (27.0-32.0); Mean Corpuscular Volume 97.2 fL (81-99); Mean Platelet Vol. 9.7 fl (6.2-12.0); Monocyte# 1.23 X10^3/uL; Neutrophil # 9.63 X10^3/uL (2.7-7.7); Neutrophil % 78.6 % (47-70); Platelet Count 382 K/mm3 (150-450); RBC Distribution Width CV 15.3 % (11.6-14.6); RBC Distribution Width SD 53.7 fl (35.1-43.9); Red Blood Count 4.25 M/mm3 (4.2-5.4); White Blood Count 12.3 K/mm3 (4.4-11.0)
[2018-04-24 17:40] LABS: POSITIVE COUNT NO; POSITIVE DIFFERENTIAL NO; POSITIVE MORPHOLOGY NO
[2018-04-24 18:07] LABS: Vitamin D,25 Hydroxy < 4.2 ng/mL (29.95-100.01)
[2018-04-24 18:32] LABS: ALB/GLOB Ratio 0.7 RATIO (0.9-2.4); AST(SGOT) 18 U/L (15-37); Alanine Aminotransfer ALT/SGPT 18 U/L (13-56); Alkaline Phosphatase 112 U/L (45-117); Anion Gap 11 (5-15); BUN 18 mg/dL (7-18); BUN/Creat Ratio 17.1 RATIO (10-20); Chloride 104 mmol/L (98-107); Creatinine, Serum 1.05 mg/dL (0.55-1.02); EST Glomerular Filtration Rate 56 mL/min (>60); Est Glom Filt Rate - Afr Amer 67 mL/min (>60); Globulin 4.5 g/dL (2.2-4.2); Glucose 94 mg/dL (74-106); Potassium 4.4 mmol/L (3.5-5.1); Protein, Total 7.5 g/dL (6.4-8.2); Sodium Level 142 mmol/L (136-145); Thyroid Stim Hormone (TSH) 0.54 uIU/mL (0.358-3.74)
[2018-04-26 11:17] LABS: Hep C Antibodies <0.1 s/co ratio (0.0-0.9)
== END ==
PROVIDERS: Family Provider Family Medicine Geriatric Medicine; PCP Family Medicine Geriatric Medicine; Visit Provider Family Medicine Geriatric Medicine
DX: Z00.00 Encounter for general adult medical examination without abnormal findings (principal); Z13.89 Encounter for screening for other disorder; E55.9 Vitamin D deficiency, unspecified; E03.9 Hypothyroidism, unspecified; M25.552 Pain in left hip
CPT/HCPCS: 36415; 73502; 80053; 82306; 84443; 85025; 86803

== ENCOUNTER → 2018-05-25 13:42 | Outpatient (CLI) | payer MEDICARE, SELFPAY ==
[2018-05-25 15:52] LABS: Amphetamine Urine VISTA NEGATIVE (<1000 ng/mL); Barbiturate Urine VISTA NEGATIVE (< 200 ng/mL); Benzodiazepine Urine VISTA NEGATIVE (< 200 ng/mL); Cocaine Urine VISTA NEGATIVE (< 300 ng/mL); Ecstacy Urine VISTA NEGATIVE (< 500 ng/mL); Methadone Urine VISTA NEGATIVE (< 300 ng/mL); PCP Urine VISTA NEGATIVE (< 25 ng/mL); THC Urine VISTA NEGATIVE (< 50 ng/mL); Vista UDS pH Range 6
== END ==
PROVIDERS: Family Provider Family Medicine Geriatric Medicine; PCP Family Medicine Geriatric Medicine; Visit Provider Anesthesiology Pain Medicine
DX: F11.20 Opioid dependence, uncomplicated (principal)
CPT/HCPCS: 80307

== ENCOUNTER → 2018-10-26 13:22 | Outpatient (CLI) | payer MEDICARE, SELFPAY ==
[2018-10-26 14:36] LABS: Amphetamine Urine VISTA NEGATIVE (<1000 ng/mL); Barbiturate Urine VISTA NEGATIVE (< 200 ng/mL); Benzodiazepine Urine VISTA NEGATIVE (< 200 ng/mL); Cocaine Urine VISTA NEGATIVE (< 300 ng/mL); Ecstacy Urine VISTA NEGATIVE (< 500 ng/mL); Methadone Urine VISTA NEGATIVE (< 300 ng/mL); PCP Urine VISTA NEGATIVE (< 25 ng/mL); THC Urine VISTA NEGATIVE (< 50 ng/mL); Vista UDS pH Range 5
== END ==
PROVIDERS: Family Provider Family Medicine Geriatric Medicine; PCP Family Medicine Geriatric Medicine; Referring Provider Anesthesiology Pain Medicine; Visit Provider Anesthesiology Pain Medicine
DX: F11.20 Opioid dependence, uncomplicated (principal)
CPT/HCPCS: 80307

== ENCOUNTER 2018-11-04 19:02 | Emergency (ER) | payer MEDICARE, SELFPAY ==
[2018-11-04 19:02] VITALS: BP 153/117; PULSE 102; RESP 18; TEMP 36.9; O2SAT 90; BMI 40.3
[2018-11-04] MEDS: Diphth,Pertuss(Acell),Tet Vac 0.5 ML Vial IM (19:33)
[2018-11-04] MEDS: Amox/Clavulanate 875 MG Tablet PO (19:33)
--- NOTE | 2018-11-04 19:58 | ED.DEP ---
ED Disposition - Plan for ED Patient: Instructions: ED Bite Dog Prescriptions: Amox/Clavulanate Tablet [Augmentin Tablet] 875 mg PO Q12H #20 tablet Referrals: Darinel Callejas Chi, MD [Primary Care Provider] -
--- NOTE | 2018-11-04 20:02 | ED.VISSUMM ---
- ER Visit Summary Date of Service: 11/04/18 Chief Complaint: Dog bite History of Present Illness: The patient is a 68 F presenting with dog bite bilateral upper extremities. Patient states she went outside to get her pug and a stray dog came up to her and bit both arms. Unknown last tetanus immunization. She is not on anticoagulants. No other injuries. Physical Examination: Vitals are stable. Patient is afebrile. Alert no acute distress. HEENT exam is unremarkable. Neck is supple. Lungs are clear and equal bilaterally. Heart is regular rate and rhythm. Extremities multiple lacerations right volar forearm, 4 cm, 2.5 cm, 3 cm, 1 cm. Tendon function is intact. Normal sensation. Active full range of motion. Superficial abrasion left volar forearm Skin is warm and dry. No focal neurologic deficit. Remainder of exam is unremarkable. Emergency Department Course and Treatment: She was given tetanus IM. She was given Augmentin. Wounds were copiously irrigated. Left upper extremity abrasion was cleaned and dressed. Right upper extremity she has a Y-shaped laceration which is 4 cm: 4, 5-0 simple sutures were placed. 2.5 cm laceration: 3, 5-0 simple sutures were placed. 3 cm skin tear: 3, 5-0 simple sutures were placed. 1 cm laceration: 1, 5-0 simple suture was placed. Advised to watch closely for signs of infection. She is given prescription for Augmentin. Advised to follow-up with her primary care physician. Advised return to ED if worsening complaints. Disposition: Discharge home Impression: Dog bite bilateral upper extremities, laceration repair This note was generated with [employer] dictation software. It may contain incorrect words, spelling, and punctuation that were not noted in review of the chart prior to signing ED Disposition - Plan for ED Patient: Instructions: ED Bite Dog Prescriptions: Amox/Clavulanate Tablet [Augmentin Tablet] 875 mg PO Q12H #20 tablet Referrals: Darinel Callejas Chi, MD [Primary Care Provider] -
[2018-11-04 20:05] VITALS: PULSE 89; RESP 16; O2SAT 99
== END 2018-11-04 20:11 | disposition home or self-care (01) ==
LOC: ED 19:41
PROVIDERS: Emergency Provider Emergency Medicine; Family Provider Family Medicine Geriatric Medicine; PCP Family Medicine Geriatric Medicine
DX: S51.811A Laceration without foreign body of right forearm, initial encounter (principal); S50.812A Abrasion of left forearm, initial encounter; W54.0XXA Bitten by dog, initial encounter; Y93.89 Activity, other specified; Y92.9 Unspecified place or not applicable; I13.0 Hypertensive heart and chronic kidney disease with heart failure and stage 1 through stage 4 chronic kidney disease, or unspecified chronic kidney disease; N18.9 Chronic kidney disease, unspecified; I50.9 Heart failure, unspecified; I48.91 Unspecified atrial fibrillation; I42.9 Cardiomyopathy, unspecified; J44.9 Chronic obstructive pulmonary disease, unspecified; K21.9 Gastro-esophageal reflux disease without esophagitis; F32.9 Major depressive disorder, single episode, unspecified; F41.9 Anxiety disorder, unspecified; Z79.899 Other long term (current) drug therapy
CPT/HCPCS: 12004; 90715; 99284

== ENCOUNTER → 2018-12-05 15:33 | Outpatient (CLI) | payer MEDICARE, SELFPAY ==
--- NOTE | 2018-12-05 17:11 | RAD_ITS ---
STUDY: X-RAY - PELVIS AND LEFT HIP REASON FOR EXAM: Female, 68 years old. Pain. TECHNIQUE: 3 views of the pelvis and hip. COMPARISON: 3 views of the pelvis and left hip April 24, 2018. FINDINGS: There is a non-specific bowel gas pattern. There are a few faint calcified phleboliths and rare vascular calcification in the pelvic soft tissues. Degenerative changes again seen in the visualized lower lumbar spine. Normal bilateral iliac wings, sacroiliac joints and visualized sacrum. Normal bilateral superior and inferior pubic rami. Normal pubic symphysis. Normal bilateral ischial tuberosities. Again seen is healed prior ORIF of intertrochanteric left femur fracture with an intramedullary aura and compression screw. Thin, linear calcification that could be a cortical avulsion fracture along the medial margin of the lesser trochanter is stable. Normal acetabulum. Normal hip joint. No demonstrated acute fracture. RAD/HIP, UNI W/ Pelvis 2-3 Views IMPRESSION: Healed prior ORIF of proximal left femur fracture with intramedullary aura and compression screw. The radiographic appearance of the pelvis is unchanged from April 24, 2018. Electronically Signed: Eric Damon MD at 19:57 EDT , Service support ,
[2018-12-05 17:28] LABS: Absolute Neutrophil Count 6.5 X10^3/uL (2.0-7.7); Basophil# 0.05 X10^3/uL; Basophil% 0.5 % (0-1); Eosinophil# 0.32 X10^3/uL; Eosinophils% 3.4 % (0-5); Hemoglobin 13.8 g/dl (12.0-15.0); Lymphocyte % 16.2 % (19-41); Mean Corp Hgb Conc 30.7 g/gl (32-36); Mean Corpuscular Hgb 28.7 pg (27.0-32.0); Mean Corpuscular Volume 93.6 fL (81-99); Mean Platelet Vol. 10.4 fl (6.2-12.0); Monocyte# 0.89 X10^3/uL; Monocyte% 9.6 % (0-10); Neutrophil % 70.1 % (47-70); Platelet Count 322 K/mm3 (150-450); RBC Distribution Width CV 15.7 % (11.6-14.6); RBC Distribution Width SD 51.7 fl (35.1-43.9); Red Blood Count 4.81 M/mm3 (4.2-5.4); White Blood Count 9.3 K/mm3 (4.4-11.0)
[2018-12-05 17:29] LABS: POSITIVE COUNT NO; POSITIVE DIFFERENTIAL NO; POSITIVE MORPHOLOGY NO
[2018-12-05 17:43] LABS: Vitamin D,25 Hydroxy 42.6 ng/mL (29.95-100.01)
[2018-12-05 17:48] LABS: ALB/GLOB Ratio 0.8 RATIO (0.9-2.4); AST(SGOT) 21 U/L (15-37); Alanine Aminotransfer ALT/SGPT 21 U/L (13-56); Albumin, Serum 3.2 g/dL (3.2-5.0); Alkaline Phosphatase 104 U/L (45-117); Anion Gap 6 (5-15); BUN 33 mg/dL (7-18); Calcium,Total 8.9 mg/dL (8.5-10.1); Chloride 104 mmol/L (98-107); Creatinine, Serum 1.18 mg/dL (0.55-1.02); EST Glomerular Filtration Rate 48 mL/min (>60); Est Glom Filt Rate - Afr Amer 59 mL/min (>60); Globulin 4.1 g/dL (2.2-4.2); Glucose 85 mg/dL (74-106); Potassium 4.8 mmol/L (3.5-5.1); Protein, Total 7.3 g/dL (6.4-8.2); Sodium Level 141 mmol/L (136-145); Thyroid Stim Hormone (TSH) 1.04 uIU/mL (0.358-3.74)
== END ==
LOC: POLAB3 15:34 → RAD 17:10
PROVIDERS: Family Provider Family Medicine Geriatric Medicine; PCP Family Medicine Geriatric Medicine; Referring Provider Family Medicine Geriatric Medicine; Visit Provider Family Medicine Geriatric Medicine
DX: M25.552 Pain in left hip (principal); E55.9 Vitamin D deficiency, unspecified; R53.83 Other fatigue
CPT/HCPCS: 36415; 73502; 80053; 82306; 84443; 85025

== ENCOUNTER 2019-05-13 14:23 | Inpatient (IN) | payer MEDICARE, SELFPAY ==
[2019-05-13] VITALS (15 sets, daily range): BP systolic 93–145; BP diastolic 61–94; PULSE 44–78; RESP 15–20; TEMP 35.5–36.8; O2SAT 85–99; BMI 41.9; BMI 42.9
--- NOTE | 2019-05-13 14:38 | EKG12_ITS ---
Test Reason : SOB Blood Pressure : / mmHG Vent. Rate : 048 BPM Atrial Rate : 057 BPM P-R Int : 000 ms QRS Dur : 126 ms QT Int : 540 ms P-R-T Axes : 000 054 007 degrees QTc Int : 482 ms Junctional rhythm Non-specific intra-ventricular conduction block Abnormal ECG Confirmed by BETINA LAMBERT, LUH ([id number]), proposal editor KAY SERRANO ([id number]) on 05/15/2019 9:30:15 AM Referred By: LETICIA Confirmed By:LUH MOFFETT MD
[2019-05-13 14:48] LABS: Absolute Lymphocyte Count 1.23 X10^3/uL (0.83-4.51); Absolute Neutrophil Count 9.1 X10^3/uL (2.0-7.7); Basophil# 0.06 X10^3/uL; Basophil% 0.5 % (0-1); Eosinophil# 0.21 X10^3/uL; Eosinophils% 1.8 % (0-5); Hematocrit 40.9 % (37-47); Hemoglobin 12.3 g/dL (12.0-15.0); Lymphocyte # 1.23 X10^3/ul (4.0); Lymphocyte % 10.7 % (19-41); Mean Corp Hgb Conc 30.1 g/dL (32-36); Mean Corpuscular Hgb 30.3 pg (27.0-32.0); Mean Corpuscular Volume 100.7 fL (81-99); Mean Platelet Vol. 9.1 fl (6.2-12.0); Monocyte# 0.87 X10^3/uL; Monocyte% 7.6 % (0-10); NRBC Flagged by Analyzer 0 % (0-5); Neutrophil # 9.07 X10^3/uL (2.7-7.7); Neutrophil % 78.9 % (47-70); Platelet Count 327 K/mm3 (150-450); RBC Distribution Width CV 13.1 % (11.6-14.6); RBC Distribution Width SD 48.2 fl (35.1-43.9); Red Blood Count 4.06 M/mm3 (4.2-5.4); White Blood Count 11.5 K/mm3 (4.4-11.0)
[2019-05-13] MEDS: Ipratropium/Albuterol Sulfate 3 ML AMPUL.NEB INHALATION ×3 (15:01→23:40)
[2019-05-13 15:02] LABS: D-Dimer Quantitative (DVT/PE) 0.85 FEU/ug/m (0.27-0.49)
[2019-05-13] MEDS: Ondansetron 4 MG/2 ML Vial IV (15:02)
--- NOTE | 2019-05-13 15:02 | CT_ITS ---
STUDY: CTA CHEST REASON FOR EXAM: Female, 68 years old. Shortness of breath. Pain. Cough. RADIATION DOSAGE (If Supplied By Facility): CTDIvol = ( 45.03 ) mGy, DLP = ( 677.15 ) mGycm TECHNIQUE: The examination was performed with the intravenous administration of 100 IV Isovue 370. Post-processing of the angiographic images was performed, with multiplanar reformation and 3D reconstruction. Individualized dose optimization techniques were used for this CT. COMPARISON: None. FINDINGS: There is no evidence of pulmonary embolus. There is no evidence of thoracic aortic aneurysm. The contrast bolus is insufficient to exclude thoracic aortic dissection. There are no pulmonary infiltrates or pleural effusions. There is no pneumothorax. There is a stable hiatal hernia noted. The heart and pericardium are within normal limits. There is no thoracic lymphadenopathy. There are no destructive osseous lesions. CT/CTA Chest W/WO Contrast IMPRESSION: No evidence of pulmonary embolus or other acute thoracic disease. Stable hiatal hernia. Electronically Signed: Reji Lopez, at 16:05 EDT Tel , Service support ,
--- NOTE | 2019-05-13 15:04 | ED.RN ---
D-DIMER 0.85 MD AWARE
[2019-05-13 15:06] LABS: AST(SGOT) 43 U/L (15-37); Alanine Aminotransfer ALT/SGPT 42 U/L (13-56); Albumin, Serum 3.4 g/dL (3.2-5.0); Alkaline Phosphatase 100 U/L (45-117); Anion Gap 4 (5-15); BUN 42 mg/dL (7-18); BUN/Creat Ratio 25.3 RATIO (10-20); Bilirubin, Direct 0.16 mg/dL (0.00-0.30); Calcium,Total 8.7 mg/dL (8.5-10.1); Chloride 103 mmol/L (98-107); Creatinine, Serum 1.66 mg/dL (0.55-1.02); EST Glomerular Filtration Rate 33 mL/min (>60); Est Glom Filt Rate - Afr Amer 39 mL/min (>60); Estimated Creatinine Clearance 30.36 ml/min; Globulin 4.2 g/dL (2.2-4.2); Glucose 102 mg/dL (74-106); Lipase 168 U/L (73-393); Potassium 5.6 mmol/L (3.5-5.1); Protein, Total 7.6 g/dL (6.4-8.2); Sodium Level 138 mmol/L (136-145)
[2019-05-13 15:16] LABS: BNP,B-Type NATRIURETIC PEPTIDE 1482.3 pg/mL (0-100)
--- NOTE | 2019-05-13 16:56 | ED.VISSUMM ---
- ER Visit Summary Date of Service: 05/13/19 Chief Complaint: [Shortness of breath] History of Present Illness: The patient is a 68 F [presents to the emergency department complaint shortness of breath for several weeks. Patient had a cough that is mostly nonproductive. She complains of exertional dyspnea and feels like she is in a pass out with any activity. Patient generally feels weak. She denies any abdominal pain. She denies any fevers. Patient has been eating and drinking normally. Patient has history of CHF, asthma, COPD, hypertension, GERD, depression, anxiety. Patient is normally on 6 L of O2 at home.] Physical Examination: [HEENT-PERRLA, EOMI. Cranial nerves II through XII grossly intact. TMs clear. Mucous membranes moist. No adenopathy. Cardiovascular-regular and bradycardic without murmur or ectopy Lungs-diminished breath sounds bilaterally. Patient has faint expiratory wheezes. Mild conversational dyspnea. No accessory muscle use or retractions. Abdomen-normoactive bowel sounds, soft, nontender, no rebound or rigidity, no peritoneal signs. Extremities-intact ?4, normal range of motion, normal pulses, atraumatic. Patient has trace leg edema bilaterally.] Test Results: [EKG obtained on arrival initially showed junctional rhythm with a ventricular rate of 48 bpm with no acute segment changes. CBC with additional count 11.5, hemoglobin 12, hematocrit 31, placed 327. Chemistry showed sodium 138, potassium 5.6, chloride 103, CO2 31, BUN 42, creatinine 1.66, glucose 102. Lipase was 168. Troponin is less than 0.15. BNP was 1482. D-dimer was 0.85. CT of the chest showed no PE or dissection.] Emergency Department Course and Treatment: [Patient was given a DuoNeb aerosol. Patient was started on Solu-Medrol 1.5 mill grams IV. SHe was placed on 6 L nasal cannula O2.] Treatment Plan: [Admit] Disposition: [Admit] Impression: [Dyspnea COPD exacerbation Generalized weakness Hyperkalemia Acute kidney injury Bradycardia] This note was generated with [employer] dictation software. It may contain incorrect words, spelling, and punctuation that were not noted in review of the chart prior to signing ED Disposition - Plan for ED Patient: Referrals: Darinel Callejas Chi, MD [Primary Care Provider] -
[2019-05-13] MEDS: MethylPREDNISolone 125 MG/2 ML Vial IV (17:02)
--- NOTE | 2019-05-13 17:09 | HP.PCM_ITS ---
Problem List (1) EMMANUEL (acute kidney injury) Status: Acute (2) Debility Status: Acute (3) COPD exacerbation Status: Acute (4) Cardiomyopathy, dilated Status: Chronic (5) ESPERANZA (obstructive sleep apnea) Status: Chronic (6) Chronic respiratory failure with hypoxia Status: Chronic (7) Anxiety Status: Chronic (8) Left ventricular hypertrophy Status: Chronic (9) Noncompliance Status: Inactive Comment: with CPAP and physician follow and likely medication as well (10) Tobacco dependence Status: Inactive Comment: [id number] smoking history (11) Back pain Status: Chronic (12) Super obesity Status: Chronic (13) Chronic systolic heart failure Status: Resolved (14) GERD (gastroesophageal reflux disease) Status: Chronic (15) Shortness of breath Status: Chronic (16) Chronic combined systolic and diastolic CHF (congestive heart failure) Status: Resolved (17) Non-sustained ventricular tachycardia Status: Chronic (18) Dysmetabolic syndrome Status: Chronic (19) Hypertension Status: Chronic (20) 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 Status: Chronic (21) longterm current use of antiarrhythmic medical therapy Status: Chronic (22) Paroxysmal atrial fibrillation Status: Chronic (23) Asthma Status: Chronic (24) COPD (chronic obstructive pulmonary disease) Status: Chronic Qualifiers: History of Present Illness Date of Admission: 05/13/19 Chief Complaint: shortness of breath. weakness. The patient is a 68 year old F who comes in with a myriad of complaints, including shortness of breath, weakness and epigastric pain. Patient states that she has been short of breath over the past month and just is very weak. States that when she tries letter dog how she just gets very weak with just getting up but feels weak and has to sit down. Complains of epigastric pain that is occasional. Patient also states that she has pain when she uses her arm such as when she is washing her dishes. Presents to the emergency room with these issues and she underwent a CT angiogram of the chest that showed no acute process. BNP was elevated as well as d-dimer. No pulmonary edema nor pulmonary embolism was noted on CT angiogram. Patient did receive 125 mg of Solu-Medrol plus bronchodilators. Patient was also noted to be bradycardic in the emergency room. States that she feels when her heart rate goes low area [] Past Medical History Past Medical History (Chronic Problems): Chronic Problems (Last Reviewed 05/13/19 @ 17:13 by Jacob Duggan DO) Cardiomyopathy, dilated (Chronic) ESPERANZA (obstructive sleep apnea) (Chronic) Chronic respiratory failure with hypoxia (Chronic) Anxiety (Chronic) Depression (Chronic) Osteoarthritis (Chronic) Pulmonary nodules (Chronic) Left ventricular hypertrophy (Chronic) Back pain (Chronic) Super 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) GERD (gastroesophageal reflux disease) (Chronic) Shortness of breath (Chronic) Non-sustained ventricular tachycardia (Chronic) Dysmetabolic syndrome (Chronic) Hypertension (Chronic) 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) longterm current use of antiarrhythmic medical therapy (Chronic) Paroxysmal atrial fibrillation (Chronic) Asthma (Chronic) COPD (chronic obstructive pulmonary disease) (Chronic) Medical History: Medical History (Last Reviewed 05/13/19 @ 17:13 by Jacob Duggan DO) Cardiomyopathy, dilated (Chronic) I42.0 Paroxysmal ventricular tachycardia (Acute) I47.2 Chronic combined systolic and diastolic CHF (congestive heart failure) (Resolved) I50.42 Non-sustained ventricular tachycardia (Chronic) I47.2 Dysmetabolic syndrome (Chronic) E88.81 Hypertension (Chronic) I10 Paroxysmal atrial fibrillation (Chronic) I48.0 Asthma (Chronic) J45.909 COPD (chronic obstructive pulmonary disease) (Chronic) J44.9 Chronic back pain M54.9, G89.29 Chronic bronchitis J42 GERD (gastroesophageal reflux disease) K21.9 Kidney disease, chronic, stage III (GFR 30-59 ml/min) N18.3 blood clots Allergies doxycycline Allergy (Severe, Verified 05/13/19 14:27) ulcerations of lips and mouth gabapentin Adverse Reaction (Severe, Verified 05/13/19 14:27) GI upset, Vomiting ciprofloxacin [From Cipro] Adverse Reaction (Intermediate, Verified 05/13/19 14:27) Other messes with her heart medicine Home Medications: Ambulatory Orders Medication Instructions Recorded Albuterol Inhaler [Ventolin Hfa] 1 puff INHALATION Q4H PRN PRN 08/08/13 Fluticasone 0.05% [Flonase Nasal 1 spray NASAL DAILY 08/08/13 [place]] Ipratropium [Atrovent Aerosols] 0.25 mg INHALATION TID 08/08/13 Lisinopril [Zestril] 10 mg PO DAILY 08/08/13 Ropinirole HCl [Requip] 1 mg PO TID 02/18/14 flecainide 150 mg tablet 150 mg PO BID 08/16/17 Venlafaxine HCl [Venlafaxine HCl 75 mg PO BID 01/28/18 ER] Budesonide/Formoterol 160/4.5 2 inhaler IH BID 01/30/18 Fluticasone/Salmeterol 1 puff INHALATION BID 02/01/18 [Fluticasone-Salmeterol 232-14] Mag Hydrox/Al Hydrox/Simeth 30 ml PO Q6H PRN PRN udc 02/01/18 [Mylanta II] Metoprolol Tartrate [Lopressor 25 mg PO BID 02/01/18 (beta bairon)] Omeprazole [Prilosec] 40 mg PO BID 02/01/18 Acetaminophen [Tylenol] 1,000 mg PO Q8 tablet 02/28/18 Gabapentin [Neurontin] 300 mg PO QHS #30 cap 02/28/18 Guaifenesin [Mucinex] 1,200 mg PO BID #60 tab 02/28/18 Iron Polysaccharide Complex 150 mg PO DAILYCM #30 cap 02/28/18 [Ferrex 150] Menthol [Bengay Vanishing Scent] 1 applic TOPICAL TID PRN PRN tube 02/28/18 Menthol/Lanolin/Calamine/Znox 1 applic TOPICAL 4X/DAY tube 02/28/18 [Calmoseptine Ointment] Nystatin Powder [Mycostatin Powder] 1 applic TOPICAL TID bottle 02/28/18 Ondansetron [Zofran Odt] 4 mg PO Q6H PRN PRN #60 tab 02/28/18 Polyethylene Glycol 3350 [Miralax] 17 gm PO DAILY #30 packet 02/28/18 Cefdinir 300 mg PO BID #14 cap 03/09/18 Lidocaine [Lidoderm Patch] 1 patch TOPICAL DAILY patch 03/09/18 Magnesium Hydroxide [Milk Of 30 ml PO DAILY PRN PRN udc 03/09/18 Magnesia] Oxycodone CR [Oxycontin] 20 mg PO BID 5 Days #10 tab 03/09/18 Oxycodone [Oxyir] 5 mg PO Q4H PRN PRN #20 tab 03/09/18 Amox/Clavulanate Tablet [Augmentin 875 mg PO Q12H #20 tablet 11/04/18 Tablet] Surgical History: Surgical History (Last Reviewed 05/13/19 @ 17:13 by Jacob Duggan DO) H/O cardiac radiofrequency ablation Onset Date: ~09/03/13 Z98.890 H/O hysterectomy with oophorectomy H/O tubal ligation Z98.51 History of knee surgery Z98.890 Surgical History: hysterectomy, - - tubal ligation, oophorectomy, knee surgery, status post cardiac radiofrequency ablation, cardiac catheterization, Left hip ORIF intramedullary nail. Psychiatric History: Anxiety, Depression, - - Non-compliance. 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 Lives: With Family Smoking Status: Former smoker Tobacco Use: Non-smoker Alcohol: None Drugs: None - *Family History Maternal Family History: Family History (Last Reviewed 05/13/19 @ 17:13 by Jacob Duggan DO) Mother Heart disease Arthritis blood clots Hypertension Father arthrits Cancer Brother Cancer Aunt Breast cancer Depression Ovarian cancer Grandmother CVA (cerebral vascular accident) Aunt Diabetes History Items: Heart Disease, Hypertension, - - Blood clot Paternal Family History: Family History (Last Reviewed 05/13/19 @ 17:13 by Jacob Duggan DO) Mother Heart disease Arthritis blood clots Hypertension Father arthrits Cancer Brother Cancer Aunt Breast cancer Depression Ovarian cancer Grandmother CVA (cerebral vascular accident) Aunt Diabetes History Items: Cancer - Lung cancer Review of Systems Constitutional: Reports: Malaise, Weakness. Denies: Anorexia, Chills, Fever Eyes: Denies: Blurred vision, Double vision HEENT: Denies: Head Aches, Sinus Congestion, Sinus Drainage Cardiovascular: Reports: Edema. Denies: Chest Pain Respiratory: Reports: Cough, Shortness of Breath. Denies: Sputum production Gastrointestinal: Reports: Abdominal Pain - Epigastric, Nausea. Denies: Diarrhea, Vomiting Genitourinary: Denies: Dysuria, Frequency Musculoskeletal: Reports: Arm Pain - Shoulder pain. Denies: Joint Pain, Joint Tenderness Skin: Denies: Rash, Wounds Neurological: Denies: Numbness, Tingling, Focal weakness Psychiatric: Denies: Anxiety, Depression Hematologic/ Lymphatic: Denies: Easy Bruising, Easy Bleeding, Hx of blood clot Comment: A 10 point review of systems were negative except as mentioned in the history of present illness and the other review of systems. VTE Information - Inpt Only VTE Present on Admission: No VTE Mechan Device Prophylaxis: None VTE Pharm Prophylaxis ordered?: Yes Patient Problems: Active and Suspected Problems (Last Reviewed 05/13/19 @ 17:13 by Jacob Duggan DO) EMMANUEL (acute kidney injury) (Acute) Debility (Acute) COPD exacerbation (Acute) - Physical Exam General: Alert, Cooperative, No apparent distress, - - Morbidly obese. Afebrile. No conversational dyspnea. No respiratory distress. HEENT: Atraumatic, Normocephalic Oral: Dry Mucosa, - - Dentures in place Neck: No Nodes, Trachea Midline Lungs: Clear to auscultation, Diminished Cardiovascular: Normal S1, Normal S2, Bradycardic Abdomen: Bowel Sounds Present, Soft, Non Tender, Non-Distended, Obese Extremities: No Calf Tenderness, Edema Skin: No rashes, No breakdown, - - Slight venous stasis dermatitis of the lower extremities bilaterally. Musculoskeletal: No Tenderness to Palpation of Joints or Extremities, No Muscle Wasting Neurological: Sensory exam intact to light touch and pain, Coordination normal Psych/Mental Status: Normal Affect, Appropriate Vital Signs Temp Pulse Resp BP Pulse Ox 35.5 C L 55 L 18 128/75 H 99 05/13/19 17:02 05/13/19 17:02 05/13/19 17:02 05/13/19 17:02 05/13/19 15:33 Oxygen Flow Rate (L/min) 6 Oxygen Delivery Method Nasal Cannula Weight: 117.934 kg Body Mass Index (BMI) 41.9 Laboratory Tests Past 24 Hrs 05/13/19 05/13/19 05/13/19 14:40 14:40 14:40 WBC 11.5 H RBC 4.06 L Hgb 12.3 Hct 40.9 MCV 100.7 H MCH 30.3 MCHC 30.1 L RDW Std Deviation 48.2 H RDW Coeff of Ankit 13.1 Plt Count 327 MPV 9.1 Immature Gran % (Auto) 0.500 Neut % (Auto) 78.9 H Lymph % (Auto) 10.7 L Esmeralda % (Auto) 7.6 Eos % (Auto) 1.8 Baso % (Auto) 0.5 Absolute Neuts (auto) 9.1 H Absolute Lymphs (auto) 1.23 Nucleated RBC % 0 D-Dimer Quant (PE/DVT) 0.85 H* Sodium 138 Potassium 5.6 H Chloride 103 Carbon Dioxide 31.0 Anion Gap 4 L BUN 42 H Creatinine 1.66 H Estim Creat Clear Calc 30.36 Est GFR (MDRD) Af Amer 39 L Est GFR (MDRD) Non-Af 33 L BUN/Creatinine Ratio 25.3 H Glucose 102 Calcium 8.7 Total Bilirubin 0.40 Direct Bilirubin 0.16 AST 43 H ALT 42 Alkaline Phosphatase 100 Troponin I < 0.015 B-Natriuretic Peptide Total Protein 7.6 Albumin 3.4 Globulin 4.2 Lipase 168 05/13/19 14:40 WBC RBC Hgb Hct MCV MCH MCHC RDW Std Deviation RDW Coeff of Ankit Plt Count MPV Immature Gran % (Auto) Neut % (Auto) Lymph % (Auto) Esmeralda % (Auto) Eos % (Auto) Baso % (Auto) Absolute Neuts (auto) Absolute Lymphs (auto) Nucleated RBC % D-Dimer Quant (PE/DVT) Sodium Potassium Chloride Carbon Dioxide Anion Gap BUN Creatinine Estim Creat Clear Calc Est GFR (MDRD) Af Amer Est GFR (MDRD) Non-Af BUN/Creatinine Ratio Glucose Calcium Total Bilirubin Direct Bilirubin AST ALT Alkaline Phosphatase Troponin I B-Natriuretic Peptide 1482.3 H Total Protein Albumin Globulin Lipase CT angiogram of the chest was reviewed and showed no pulmonary embolism, no infiltrate nor pulmonary edema. EKG was reviewed and shows sinus bradycardia. Low amplitudes throughout. Assessment/Plan All Active Problems (Last Reviewed 05/13/19 @ 17:13 by Jacob Duggan DO) EMMANUEL (acute kidney injury) (Acute) Debility (Acute) COPD exacerbation (Acute) Hip fracture (Resolved) Chronic systolic heart failure (Resolved) Weakness (Acute) Chronic combined systolic and diastolic CHF (congestive heart failure) (Resolved) 1. Acute kidney injury * Presumed prerenal * IV fluids * Hold agents that could exacerbate it * Consider further nephrology work-up if IV fluids does not yield any improvement 2. Possible acute exacerbation of COPD * Patient does have a chronic respiratory failure and on 5 L. Patient was weaned down to 5 L and is tolerating that at this point time. Patient did receive bronchodilators and methylprednisolone in the emergency room. * We will treat her empirically with prednisone and continue with the bronchodilators. I would plan on a burst of 5 days of the 40 mg of prednisone. 3. Debility and weakness * Probably due to the above plus the patient's overall poor performance status * We will have physical and occupational therapy evaluate patient to see if she would require any additional therapy needs upon discharge 4. Hyperkalemia * No hemolysis noted BMP report * No EKG changes * Patient received 50 mg of Kayexalate * Reevaluate in the morning 5. Paroxysmal atrial fibrillation * Patient states that she feels this way before she was ablated. They did not know at the time why she was ablated but appears that this is prior related with her atrial fibrillation which she is not in currently. 6. Bradycardia * Could also be contributing to the patient's weakness * Put hold parameters on medications, such as metoprolol, that could exacerbate that. Appears to be sinus bradycardia at this time 7. VTE prophylaxis: Enoxaparin 8. Advanced care planning: Patient wants to have CPR but does not wish to be intubated, even a short-term. I did recommend that the patient be DNR Comfort Care arrest if she does not wish to be intubated. Patient did not really respond to that. Therefore, patient will be full CODE STATUS at this time. Case discussed with patient's daughters at bedside. Code Visit Inpatient E&M: 80874 Init Hosp L3
[2019-05-13] MEDS: 0.9% Normal Saline 1,000 ML 125 ML IV (18:35)
[2019-05-13] MEDS: Sodium Polystyrene Sulfonate 15 GM/60 ML UDC PO (18:36)
[2019-05-13] MEDS: 0.9% NaCl Peripheral Flush Adult/Peds IV (18:39)
[2019-05-13] MEDS: HYDROcodone Bitartrate/Apap 5/325 Tablet PO (21:28)
[2019-05-13] MEDS: Nystatin Powder 15gm Bottle 1 APPLIC TOPICAL (21:28)
[2019-05-13] MEDS: Pramipexole Di-HCl 0.5 MG Tablet PO (21:29)
[2019-05-13] MEDS: Metoprolol Tartrate 25 MG Tablet PO (21:29)
[2019-05-13] MEDS: guaiFENesin 1,200 MG Tablet 1200 MG PO (21:30)
[2019-05-13] MEDS: Gabapentin 300 MG Capsule PO (21:30)
[2019-05-13] MEDS: Pantoprazole Sodium 40 MG Tablet PO (21:30)
[2019-05-14] VITALS (19 sets, daily range): BP systolic 101–122; BP diastolic 55–67; PULSE 58–74; RESP 14–20; TEMP 36.8–37; O2SAT 94–98
[2019-05-14] MEDS: HYDROcodone Bitartrate/Apap 5/325 Tablet PO ×3 (05:19→21:11)
[2019-05-14] MEDS: Pramipexole Di-HCl 0.5 MG Tablet PO ×3 (05:19→21:10)
[2019-05-14] MEDS: Nystatin Powder 15gm Bottle 1 APPLIC TOPICAL ×3 (05:20→21:11)
[2019-05-14 06:14] LABS: Anion Gap 5 (5-15); BUN 39 mg/dL (7-18); BUN/Creat Ratio 31.2 RATIO (10-20); Calcium,Total 8.2 mg/dL (8.5-10.1); Chloride 105 mmol/L (98-107); Creatinine, Serum 1.25 mg/dL (0.55-1.02); EST Glomerular Filtration Rate 45 mL/min (>60); Est Glom Filt Rate - Afr Amer 55 mL/min (>60); Estimated Creatinine Clearance 40.32 ml/min; Glucose 123 mg/dL (74-106); Sodium Level 140 mmol/L (136-145)
[2019-05-14] MEDS: Ipratropium/Albuterol Sulfate 3 ML AMPUL.NEB INHALATION ×5 (07:25→23:27)
[2019-05-14 08:42] LABS: Vitamin D,25 Hydroxy 33.5 ng/mL (29.95-100.01)
[2019-05-14] MEDS: Pantoprazole Sodium 40 MG Tablet PO ×2 (09:21→21:11)
[2019-05-14] MEDS: Flecainide 150 MG Tablet PO (09:21)
[2019-05-14] MEDS: Metoprolol Tartrate 25 MG Tablet PO ×2 (09:21→21:10)
[2019-05-14] MEDS: Polyethylene Glycol 3350 17 GM PACKET PO (09:22)
[2019-05-14] MEDS: Iron Polysaccharide Complex 150 MG CAPSULE PO (09:22)
[2019-05-14] MEDS: Famotidine 20 MG Tablet PO (09:22)
[2019-05-14] MEDS: guaiFENesin 1,200 MG Tablet 1200 MG PO ×2 (09:22→21:10)
[2019-05-14] MEDS: Fluticasone 0.05% 1 SPRAY NASAL.SRY NASAL (09:22)
[2019-05-14] MEDS: Enoxaparin 40 MG/0.4 ML Syringe SC (09:22)
[2019-05-14] MEDS: Venlafaxine XR 150 MG Capsule PO (09:22)
[2019-05-14] MEDS: predniSONE 20 MG Tablet 40 MG PO (09:22)
[2019-05-14] MEDS: Lidocaine 5% Patch 1 PATCH TOPICAL (09:24)
--- NOTE | 2019-05-14 10:30 | PN_ITS ---
Patient Problems: Active and Suspected Problems (Last Reviewed 05/13/19 @ 17:13 by Jacob Duggan DO) EMMANUEL (acute kidney injury) (Acute) Debility (Acute) COPD exacerbation (Acute) Subjective: Patient seen and examined. She states she feels better today though she still feels short of breath. She denies any chest pain or palpitations but admits to a cough which is productive of scanty clear sputum. She denies any fever chills, abdominal pain diarrhea vomiting. She is on her baseline 6 L of oxygen. Labs and vitals reviewed. The back pain that she came in with is better, she says. Vitals/I&O's: Vital Signs Temp Pulse Resp BP Pulse Ox 98.5 F 67 14 114/55 L 96 05/14/19 07:30 05/14/19 09:21 05/14/19 09:16 05/14/19 07:30 05/14/19 09:16 Oxygen Flow Rate (L/min) 5 Oxygen Delivery Method Nasal Cannula Weight: 266 lb 1.567 oz Body Mass Index (BMI) 42.9 Intake and Output for Last 24 Hours 05/12/19 05/13/19 05/14/19 23:59 23:59 23:59 Intake Total 490 / 940 1587.5 / 1587.5 Balance 490 / 940 1587.5 / 1587.5 General: Alert, Oriented x3, Cooperative, No apparent distress HEENT: Atraumatic, PERRLA, EOMI, Normocephalic Oral: Dry Mucosa Neck: Supple, No JVD, Negative Carotid Bruits Lungs: - - decreased breath sounds bibasally, few crackes and audible wheezing bilaterally. on 6L of oxygen, which is her baseline. Cardiovascular: Regular rate, Regular Rhythm, Normal S1, Normal S2, No murmurs Abdomen: Bowel Sounds Present, Soft, Non Tender Extremities: No clubbing, No cyanosis, No edema, Capillary Refill Less than 3 Seconds Skin: No rashes, No breakdown Musculoskeletal: No Tenderness to Palpation of Joints or Extremities Lymphatic: No Cervical, Supraclavicular, or Inguinal Adenopathy Neurological: Cranial nerves II-XII grossly intact, Neuro grossly intact, Motor Exam 5/5 strength throughout Psych/Mental Status: Normal Affect, Appropriate, Alert and oriented to time, place, person, mood and affect Laboratory Results 05/13/19 14:40: WBC 11.5 H, RBC 4.06 L, Hgb 12.3, Hct 40.9, MCV 100.7 H, MCH 30.3, MCHC 30.1 L, RDW Std Deviation 48.2 H, RDW Coeff of Ankit 13.1, Plt Count 327, MPV 9.1, Immature Gran % (Auto) 0.500, Neut % (Auto) 78.9 H, Lymph % (Auto) 10.7 L, [place] % (Auto) 7.6, Eos % (Auto) 1.8, Baso % (Auto) 0.5, Absolute Neuts (auto) 9.1 H, Absolute Lymphs (auto) 1.23, Nucleated RBC % 0 05/13/19 14:40: D-Dimer Quant (PE/DVT) 0.85 H* 05/13/19 14:40: Sodium 138, Potassium 5.6 H, Chloride 103, Carbon Dioxide 31.0, Anion Gap 4 L, BUN 42 H, Creatinine 1.66 H, Estim Creat Clear Calc 30.36, Est GFR (MDRD) Af Amer 39 L, Est GFR (MDRD) Non-Af 33 L, BUN/Creatinine Ratio 25.3 H , Glucose 102, Calcium 8.7, Total Bilirubin 0.40, Direct Bilirubin 0.16, AST 43 H, ALT 42, Alkaline Phosphatase 100, Troponin I < 0.015, Total Protein 7.6, Albumin 3.4, Globulin 4.2, Lipase 168 05/13/19 14:40: B-Natriuretic Peptide 1482.3 H 05/14/19 05:28: Vitamin D 25-Hydroxy 33.5 05/14/19 05:28: Sodium 140, Potassium 5.0, Chloride 105, Carbon Dioxide 30.0, Anion Gap 5, BUN 39 H, Creatinine 1.25 H, Estim Creat Clear Calc 40.32, Est GFR (MDRD) Af Amer 55 L, Est GFR (MDRD) Non-Af 45 L, BUN/Creatinine Ratio 31.2 H, Glucose 123 H, Calcium 8.2 L Diagnostic Data Chest CTA 05/13/19 15:02 IMPRESSION: No evidence of pulmonary embolus or other acute thoracic disease. Stable hiatal hernia. Electronically Signed: Reji Lopez, at 16:05 EDT Tel , Service support , Current Medications Acetaminophen (Tylenol) 650 mg PO Q6H PRN PRN PRN Reason: Mild pain 1-3/Temp > 100.7 F Hydrocodone Bitart/Acetaminophen (Lane 5mg-325mg) 1 tablet PO TID [facility] Last Admin: 05/14/19 05:19 Dose: 1 tablet Documented by: Al Hydroxide/Mg Hydroxide (Mylanta Ii) 30 ml PO Q6H PRN PRN PRN Reason: Gastric burning Albuterol Sulfate (Ventolin Aerosols) 2.5 mg INHALATION Q2H PRN PRN PRN Reason: SHORTNESS OF BREATH Albuterol/Ipratropium (Duoneb) 3 ml INHALATION Q4H.RT [facility] Last Admin: 05/14/19 07:25 Dose: 3 ml Documented by: Dextrose (D50w Syringe) 0 gm IV X1 PRN; Protocol PRN Reason: Hypoglycemia Enoxaparin Sodium (Lovenox) 40 mg SC DAILY@1000 [facility] Last Admin: 05/14/19 09:22 Dose: 40 mg Documented by: Famotidine (Pepcid) 20 mg PO DAILY [facility] Last Admin: 05/14/19 09:22 Dose: 20 mg Documented by: Flecainide Acetate (Tambocor) 150 mg PO DAILY [facility] Last Admin: 05/14/19 09:21 Dose: 150 mg Documented by: Fluticasone Propionate (Flonase Nasal Avery) 1 spray NASAL DAILY [facility] Last Admin: 05/14/19 09:22 Dose: 1 spray Documented by: Gabapentin (Neurontin) 300 mg PO QHS [facility] Last Admin: 05/13/19 21:30 Dose: 300 mg Documented by: Glucagon () 1 mg IM .X1 PRN PRN Reason: Hypoglycemia Guaifenesin (Mucinex) 1,200 mg PO BID [facility] Last Admin: 05/14/19 09:22 Dose: 1,200 mg Documented by: Lidocaine (Lidoderm Patch) 1 patch TOPICAL DAILY [facility]; Protocol Last Admin: 05/14/19 09:24 Dose: 1 patch Documented by: Magnesium Hydroxide (Milk Of Magnesia) 30 ml PO DAILY PRN PRN PRN Reason: Constipation Melatonin (Melatonin) 3 mg PO QHS PRN PRN PRN Reason: INSOMNIA Metoprolol Tartrate (Lopressor (Beta Katerine)) 25 mg PO BID [facility] Last Admin: 05/14/19 09:21 Dose: 25 mg Documented by: Nutritional Formula (Lactose Free) (Ensure Enlive) 120 ml PO 4X/DAY [facility] Last Admin: 05/14/19 09:22 Dose: 120 ml Documented by: Nystatin (Mycostatin Powder) 1 applic TOPICAL TID [facility]; Protocol Last Admin: 05/14/19 05:20 Dose: 1 applicatio Documented by: Ondansetron HCl (Zofran Odt) 4 mg PO Q6H PRN PRN PRN Reason: NAUSEA Ondansetron HCl (Zofran) 4 mg IV Q8H PRN PRN PRN Reason: NAUSEA/VOMITING Pantoprazole Sodium (Protonix) 40 mg PO BID [facility] Last Admin: 05/14/19 09:21 Dose: 40 mg Documented by: Polyethylene Glycol (Miralax) 17 gm PO DAILY [facility] Last Admin: 05/14/19 09:22 Dose: 17 gm Documented by: Polysaccharide Iron Complex (Ferrex 150) 150 mg PO DAILYCM [facility] Last Admin: 05/14/19 09:22 Dose: 150 mg Documented by: Pramipexole Dihydrochloride (Mirapex) 0.5 mg PO TID [facility] Last Admin: 05/14/19 05:19 Dose: 0.5 mg Documented by: Prednisone () 40 mg PO DAILY@0800 [facility] Last Admin: 05/14/19 09:22 Dose: 40 mg Documented by: Senna/Docusate Sodium (Senokot-S, Yamilex-Colace) 2 tablet PO BID PRN PRN PRN Reason: Constipation Sodium Chloride () 10 - 40 ml IV UD PRN PRN Reason: SALINE FLUSH Last Admin: 05/13/19 18:39 Dose: 10 ml Documented by: Venlafaxine HCl (Effexor Xr) 150 mg PO DAILY [facility] Last Admin: 05/14/19 09:22 Dose: 150 mg Documented by: Medical Necessity - Tobacco Use Smoking Status: Former smoker Tobacco Use: Non-smoker Assessment/Plan All Active Problems (Last Reviewed 05/13/19 @ 17:13 by Jacob Duggan DO) EMMANUEL (acute kidney injury) (Acute) Debility (Acute) COPD exacerbation (Acute) Hip fracture (Resolved) Chronic systolic heart failure (Resolved) Weakness (Acute) Chronic combined systolic and diastolic CHF (congestive heart failure) (Resolved) 1. Probable COPD exacerbation * still on her baseline 6L of oxygen;' still feels a bit SOB, but says it is getting better * on PO prednisone and breathing treatments with bronchodilators * titrate oxygen to maintain sats>90% * 2.. Acute on chronic HFpEF * BNP was 1482.3 on admission * will diurese with IV laxis 40mg b id. monitor intake and output * fluid restriction to 1500cc daily * last echo (01/28/18): EF of 55%, with moderate to severe LVF and normal LVSF. Unable to assess diastolic dysfunction. Unable to assess RVSP due to technical difficulty; unable to assess diastolic function * repeat 2D echo * CTA done was negative for PE./ * 3. Chronic hypoxic respiratory failure due to COPD * on 5-6L of oxygen at home as under 1. * 4. EMMANUEL: * likely pre-renal due to decreased intake. * CR down to 1.25, from 1.66 on admission * being diuresed with lasix for CHF exacerbation * * 5. DEbility and weakness exacerbated by COPD * PT OT to see patient. Will await recommendations. 6. Hyperkalemia: Potassium was 5.6 on admission is now 5 after receiving Kayexalate. Will monitor. 7. History of paroxysmal A. fib: Status post ablation. Currently rate and rhythm controlled. Will monitor. 8. Bradycardia: Resolved. Heart rate is now between 60 and 70. Heart rate went as low as 40s. Metoprolol on hold. will check TSH DVT prohylaxis: lovenox COde status: full code for now. * Per admitting note, patient stated she wanted CPR but did nt want to be intubated. * she was not willing to have code status of DNRCCA. Code Visit Inpatient E&M: 01902 [facility] Hosp L3
--- NOTE | 2019-05-14 10:41 | ECHOD_ITS ---
Reason For Study: CHF Procedure This was a 2D Doppler, Color Flow transthoracic echocardiogram. Exam performed portable in patient room. Left Ventricle Mildly dilated left ventricle. Left ventricular systolic function is normal. The estimated ejection fraction is 55 %. Segmental dysfunction with preserved ejection fraction (see wall motion). Stage 1 diastolic dysfunction. Infero-Basal: Hypokinetic. Right Ventricle Normal RV size. Normal systolic function. Atria Normal left atrium. The right atrium is moderately enlarged. Mitral Valve Normal mitral valve. Mild (1+) eccentric mitral valve insufficiency. Tricuspid Valve Normal tricuspid valve. Mild to moderate (1-2+) tricuspid valve insufficiency. Pulmonary artery systolic pressure is 39 mmHg. Aortic Valve Normal aortic valve. Trisinus/trileaflet aortic valve. Trivial aortic valve insufficiency. Pulmonic Valve Normal pulmonic valve. Mild (1+) pulmonic valve insufficiency. Great Vessels Normal aortic root. The pulmonary artery is normal size. Normal inferior vena cava. Pericardium/Pleural No pericardial effusion. MMode/2D Measurements & Calculations LVIDd: 6.1 cm IVSd: 0.93 cm Ao root diam: 3.7 cm LVIDs: 4.7 cm LVPWd: 0.83 cm FS: 23.4 % LAV(MOD-bp): 63.1 ml EDV(MOD-sp4): 137.1 ml EDV(MOD-sp2): 122.5 ml LAV(MOD-bp) Indexed: 27.9 ml/m2 ESV(MOD-sp4): 65.4 ml EF(MOD-sp2): 42.0 % LAV(MOD-sp2): 68.9 ml EF(MOD-sp4): 52.3 % LAV(MOD-sp4): 56.8 ml SV(MOD-sp4): 71.7 ml SV(MOD-sp2): 51.4 ml LA A4 area: 20.2 cm2 LA dimension(2D): 4.1 cm RA A4 area: 24.0 cm2 Doppler Measurements & Calculations MV E max jessee: 107.2 cm/sec Lat Peak E' Jessee: 10.4 cm/sec Med Peak E' Jessee: 3.7 cm/sec MV A max jessee: 116.1 cm/sec E/E' lat: 10.3 E/E' med: 28.6 MV E/A: 0.92 Ao V2 max: 141.0 cm/sec LV V1 max: 95.6 cm/sec PA V2 max: 79.9 cm/sec Ao max P.0 mmHg LV V1 max P.7 mmHg TR max jessee: 291.2 cm/sec TR max P.9 mmHg Interpretation Summary Left ventricular systolic function is normal. The estimated ejection fraction is 55 %. Mildly dilated left ventricle. Stage 1 diastolic dysfunction. Mild to moderate (1-2+) tricuspid valve insufficiency. Ordering Physician: Karen Hahn Referring Physician: Darinel Callejas Chi Performed By: Samantha Chavarria RDCS
[2019-05-14] MEDS: Furosemide 40 MG/4 ML Vial IV ×2 (10:55→17:30)
[2019-05-14] MEDS: 0.9% NaCl Peripheral Flush Adult/Peds IV ×3 (10:56→21:11)
[2019-05-14 11:14] LABS: Thyroid Stim Hormone (TSH) 0.42 uIU/mL (0.358-3.74)
--- NOTE | 2019-05-14 12:00 | CASEMGMT ---
Addendum entered by Marcellus Palomino 05/14/19 16:00: 1330: Pt's daughter, Samantha, present in room at this time. She states pt sees Dr Sutton--cardiology and either Dr Antunez or Dr Davis (she is unsure)--pulmonology. Daughter states that pt got her Oxygen through [employer] and that [facility] is so far away, that she would like to have it switched to another more local company. Discussed discharge planning with pt's daughter, Samantha. Samantha states feels pt would benefit from SNF and prefers TCU. Pt initially stated she wanted to go home @ discharge, but after discussing things wither her daughter, pt agreeable to going to TCU. ANGLE, Lorri, made aware. Original Note: RN CM CAFE ASSOCIATE CM to room to meet with patient for initial transition planning/care coordination assessment. RN CM introduced self and role at [facility]. Pt voices understanding and consents to assessment at this time. Pt resting in bed in no distress at this time. Pt is A/O but is forgetful and asked for RN STEFANI to talk with her daughter when she comes in to see her to ask her for further information. Care providers, pharmacy, and demographics verified/updated at this time. PCP: J[facility]ior Specialists: I don't remember Preferred Pharmacy: [facility] Insurance: MMO [facility] Prescription Benefit: Yes Living Will/HPOA: does not have LW or HCPOA . Interested in more information and would like to talk with ANGLE to complete paperwork. LNOK: Daughter, Samantha, and son, Orlando Eli Living Arrangements: Lives in basement of home with 5-6 steps to enter. States her daughter and granddaughter live in mobile home w/a ramp that is on her property and she has been staying there with them a lot. She states she is independent with ADL's and her dtr and granddaughter dot the dishes, cleaning, and meals. She states her daughter is handicap and that she needs surgery on both of her hips, so they help each other. Transportation: Pt, Daughter. DME: has the following DME: cane, walker, W/C. has a BIPAP but does not use it. Has O2 at home but does not remember what the liter flow is at or what company she got it through. Asks for RN STEFANI to ask her daughter. Pt states no need for further DME at this time. HHC/SNF: has never been to a SNF, but then later stated she thinks she may have been to the one @ [facility]. does not think she has had HHC in the past. PT/OT evals pending. Discussed discharge planning with pt. She states if therapy recommends SNF, she may consider it. CM to follow for home oxygen needs and any further discharge planning/needs. Pt voices no further concerns/needs at this time. Advised pt to ask for CM if any further questions/concerns/needs arise. Voices understanding. PLAN: TBD. PT/OT evals pending and pt undecided at this time. Teena PARSON RN, CM
--- NOTE | 2019-05-14 14:03 | CASEMGMT ---
Per RN CM patient has agreed to try TCU. ANGLE confirmed this with patient. ANGLE called Katia in TCU and she would have a bed for patient. ANGLE will have to obtain approval for SNF level of care from insurance and then if approved [facility] would try for pre-cert for TCU. Lorri SHAFER SADDLE AND HARNESS MAKER
[2019-05-14] MEDS: Acetaminophen 325 MG Tablet 650 MG PO (19:48)
[2019-05-14] MEDS: Gabapentin 300 MG Capsule PO (21:11)
[2019-05-15] VITALS (15 sets, daily range): BP systolic 102–120; BP diastolic 54–76; PULSE 65–89; RESP 18–22; TEMP 36.6–36.8; O2SAT 91–95
[2019-05-15] MEDS: Ipratropium/Albuterol Sulfate 3 ML AMPUL.NEB INHALATION ×6 (02:37→22:29)
[2019-05-15] MEDS: HYDROcodone Bitartrate/Apap 5/325 Tablet PO ×3 (05:47→21:10)
[2019-05-15] MEDS: Nystatin Powder 15gm Bottle 1 APPLIC TOPICAL ×2 (05:47→13:40)
[2019-05-15] MEDS: Pramipexole Di-HCl 0.5 MG Tablet PO ×3 (05:47→21:09)
[2019-05-15] MEDS: Lidocaine 5% Patch 1 PATCH TOPICAL (09:22)
[2019-05-15] MEDS: Fluticasone 0.05% 1 SPRAY NASAL.SRY NASAL (09:22)
[2019-05-15] MEDS: 0.9% NaCl Peripheral Flush Adult/Peds IV ×2 (09:24→17:07)
[2019-05-15] MEDS: Enoxaparin 40 MG/0.4 ML Syringe SC (09:24)
[2019-05-15] MEDS: Polyethylene Glycol 3350 17 GM PACKET PO (09:24)
[2019-05-15] MEDS: Furosemide 40 MG/4 ML Vial IV ×2 (09:25→17:07)
[2019-05-15] MEDS: Iron Polysaccharide Complex 150 MG CAPSULE PO (09:26)
[2019-05-15] MEDS: guaiFENesin 1,200 MG Tablet 1200 MG PO ×2 (09:26→21:09)
[2019-05-15] MEDS: predniSONE 20 MG Tablet 40 MG PO (09:27)
[2019-05-15] MEDS: Pantoprazole Sodium 40 MG Tablet PO ×2 (09:27→21:11)
[2019-05-15] MEDS: Metoprolol Tartrate 25 MG Tablet PO ×2 (09:27→21:09)
[2019-05-15] MEDS: Famotidine 20 MG Tablet PO (09:27)
[2019-05-15] MEDS: Venlafaxine XR 150 MG Capsule PO (09:27)
[2019-05-15] MEDS: Flecainide 150 MG Tablet PO (09:28)
--- NOTE | 2019-05-15 10:40 | PN_ITS ---
Patient Problems: Active and Suspected Problems (Last Reviewed 05/13/19 @ 17:13 by Jacob Duggan DO) EMMANUEL (acute kidney injury) (Acute) Debility (Acute) COPD exacerbation (Acute) Subjective: Patient seen and examined. She feels much better today. Shortness of breath has improved. Review of systems otherwise negative. Labs and vitals reviewed. She was started on IV Lasix 40 mg twice daily yesterday on account of elevated BNP. Urine output was 4.7 L over the last 24 hours and she is in negative balance by 2.12 L since admission. Vitals/I&O's: Vital Signs Temp Pulse Resp BP Pulse Ox 97.9 F 65 20 H 120/70 94 05/15/19 09:00 05/15/19 09:27 05/15/19 09:00 05/15/19 09:00 05/15/19 09:00 Oxygen Flow Rate (L/min) 5 Oxygen Delivery Method Nasal Cannula Weight: 261 lb 11.019 oz Body Mass Index (BMI) 42.9 Intake and Output for Last 24 Hours 05/13/19 05/14/19 05/15/19 23:59 23:59 23:59 Intake Total 490 / 940 2457.5 / 2457.5 30 / 30 Output Total 4700 / 4700 400 / 400 Balance 490 / 940 -2242.5 / -2242.5 -370 / -370 General: Alert, Oriented x3, Cooperative, No apparent distress HEENT: Atraumatic, PERRLA, EOMI, Normocephalic Oral: Dry Mucosa Neck: Supple, No JVD, Negative Carotid Bruits Lungs: - - decreased breath sounds bibasally, wheezes and crackles have resolved. on 5L of oxygen, which is her baseline. Cardiovascular: Regular rate, Regular Rhythm, Normal S1, Normal S2, No murmurs Abdomen: Bowel Sounds Present, Soft, Non Tender Extremities: No clubbing, No cyanosis, No edema, Capillary Refill Less than 3 Seconds Skin: No rashes, No breakdown Musculoskeletal: No Tenderness to Palpation of Joints or Extremities Lymphatic: No Cervical, Supraclavicular, or Inguinal Adenopathy Neurological: Cranial nerves II-XII grossly intact, Neuro grossly intact, Motor Exam 5/5 strength throughout Psych/Mental Status: Normal Affect, Appropriate, Alert and oriented to time, place, person, mood and affect Laboratory Results 05/14/19 05:28: TSH 0.42 Current Medications Acetaminophen (Tylenol) 650 mg PO Q6H PRN PRN PRN Reason: Mild pain 1-3/Temp > 100.7 F Last Admin: 05/14/19 19:48 Dose: 650 mg Documented by: Hydrocodone Bitart/Acetaminophen (Farrar 5mg-325mg) 1 tablet PO TID [facility] Last Admin: 05/15/19 05:47 Dose: 1 tablet Documented by: Al Hydroxide/Mg Hydroxide (Mylanta Ii) 30 ml PO Q6H PRN PRN PRN Reason: Gastric burning Albuterol Sulfate (Ventolin Aerosols) 2.5 mg INHALATION Q2H PRN PRN PRN Reason: SHORTNESS OF BREATH Albuterol/Ipratropium (Duoneb) 3 ml INHALATION Q4H.RT [facility] Last Admin: 05/15/19 06:50 Dose: 3 ml Documented by: Dextrose (D50w Syringe) 0 gm IV X1 PRN; Protocol PRN Reason: Hypoglycemia Enoxaparin Sodium (Lovenox) 40 mg SC DAILY@1000 [facility] Last Admin: 05/15/19 09:24 Dose: 40 mg Documented by: Famotidine (Pepcid) 20 mg PO DAILY [facility] Last Admin: 05/15/19 09:27 Dose: 20 mg Documented by: Flecainide Acetate (Tambocor) 150 mg PO DAILY [facility] Last Admin: 05/15/19 09:28 Dose: 150 mg Documented by: Fluticasone Propionate (Flonase Nasal Spicer) 1 spray NASAL DAILY [facility] Last Admin: 05/15/19 09:22 Dose: 1 spray Documented by: Furosemide (Lasix) 40 mg IV BID@1000,1800 [facility] Last Admin: 05/15/19 09:25 Dose: 40 mg Documented by: Gabapentin (Neurontin) 300 mg PO QHS [facility] Last Admin: 05/14/19 21:11 Dose: 300 mg Documented by: Glucagon () 1 mg IM .X1 PRN PRN Reason: Hypoglycemia Guaifenesin (Mucinex) 1,200 mg PO BID [facility] Last Admin: 05/15/19 09:26 Dose: 1,200 mg Documented by: Lidocaine (Lidoderm Patch) 1 patch TOPICAL DAILY [facility]; Protocol Last Admin: 09/10/19 09:22 Dose: 1 patch Documented by: Magnesium Hydroxide (Milk Of Magnesia) 30 ml PO DAILY PRN PRN PRN Reason: Constipation Melatonin (Melatonin) 3 mg PO QHS PRN PRN PRN Reason: INSOMNIA Metoprolol Tartrate (Lopressor (Beta Katerine)) 25 mg PO BID [facility] Last Admin: 05/15/19 09:27 Dose: 25 mg Documented by: Nutritional Formula (Lactose Free) (Ensure Enlive) 120 ml PO 4X/DAY [facility] Last Admin: 05/15/19 09:27 Dose: Not Given Documented by: Nystatin (Mycostatin Powder) 1 applic TOPICAL TID [facility]; Protocol Last Admin: 05/15/19 05:47 Dose: 1 applicatio Documented by: Ondansetron HCl (Zofran Odt) 4 mg PO Q6H PRN PRN PRN Reason: NAUSEA Ondansetron HCl (Zofran) 4 mg IV Q8H PRN PRN PRN Reason: NAUSEA/VOMITING Pantoprazole Sodium (Protonix) 40 mg PO BID [facility] Last Admin: 05/15/19 09:27 Dose: 40 mg Documented by: Polyethylene Glycol (Miralax) 17 gm PO DAILY [facility] Last Admin: 05/15/19 09:24 Dose: 17 gm Documented by: Polysaccharide [facility] ([facility]rex 150) [facility] Last Admin: 05/15/19 09:26 Dose: 150 mg Documented by: Pramipexole Dihydrochloride (Mirapex) 0.5 mg PO TID [facility] Last Admin: 05/15/19 05:47 Dose: 0.5 mg Documented by: Prednisone () 40 mg PO DAILY@0800 [facility] Last Admin: 05/15/19 09:27 Dose: 40 mg Documented by: Senna/Docusate Sodium (Senokot-S, Yamilex-Colace) 2 tablet PO BID PRN PRN PRN Reason: Constipation Sodium Chloride () 10 - 40 ml IV UD PRN PRN Reason: SALINE FLUSH Last Admin: 05/15/19 09:24 Dose: 10 ml Documented by: Venlafaxine HCl (Effexor Xr) 150 mg PO DAILY [facility] Last Admin: 05/15/19 09:27 Dose: 150 mg Documented by: Medical Necessity - Tobacco Use Smoking Status: Former smoker Tobacco Use: Non-smoker Assessment/Plan All Active Problems (Last Reviewed 05/13/19 @ 17:13 by Jacob Duggan DO) EMMANUEL (acute kidney injury) (Acute) Debility (Acute) COPD exacerbation (Acute) Hip fracture (Resolved) Chronic systolic heart failure (Resolved) Weakness (Acute) Chronic combined systolic and diastolic CHF (congestive heart failure) (Resolved) 1. Probable COPD exacerbation * feels better today. * still on her baseline 5L of oxygen;' still feels a bit SOB, * on PO prednisone and breathing treatments with bronchodilators * titrate oxygen to maintain sats>90% * 2.. Acute on chronic HFpEF * BNP was 1482.3 on admission * on IV lasix 40mg bid; in negative balance by 2.12L since admission; urine output over last 24 hours is 4.7L * fluid restriction to 1500cc daily * 2D echo(05/14/19): Mildly dilated left ventricle with normal left ventricular systolic function and estimated EF of 55% with segmental dysfunction and stage I diastolic dysfunction as well as inferobasal hypokinesia. RVSP is 39 mmHg. Mild to moderate tricuspid valve insufficiency. * CTA done was negative for PE./ * 3. Chronic hypoxic respiratory failure due to COPD * on 5-6L of oxygen at home as under 1. * 4. EMMANUEL: * likely pre-renal due to decreased intake. * CR is 1.49 today; slight rise relative to level yeterday is likely due to diuresis with lasix. * will monitor * * 5. DEbility and weakness exacerbated by COPD * PT OT to see patient. patient OK to go to TCU 6. Hyperkalemia: Potassium was 5.6 on admission is now 5 after receiving Kayexalate. Will monitor. 7. History of paroxysmal A. fib: Status post ablation. Currently rate and rhythm controlled. Will monitor. 8. Bradycardia: Resolved. Heart rate is now between 60 and 70. DVT prohylaxis: lovenox * Disposition: for DC to TCU when medically stable. Code Visit Inpatient E&M: 89658 Subs Hosp L2
[2019-05-15 11:57] LABS: Anion Gap 2 (5-15); BUN 39 mg/dL (7-18); BUN/Creat Ratio 26.2 RATIO (10-20); Chloride 99 mmol/L (98-107); Creatinine, Serum 1.49 mg/dL (0.55-1.02); EST Glomerular Filtration Rate 37 mL/min (>60); Est Glom Filt Rate - Afr Amer 45 mL/min (>60); Estimated Creatinine Clearance 33.83 ml/min; Glucose 91 mg/dL (74-106); Potassium 4.1 mmol/L (3.5-5.1); Sodium Level 139 mmol/L (136-145)
--- NOTE | 2019-05-15 15:43 | CASEMGMT ---
ANGLE received a call from [facility]. She said ANGLE's fax just was parts of pages. ANGLE went to a different fax machine and re-faxed the information. Lorri SHAFER MSW
[2019-05-15] MEDS: Gabapentin 300 MG Capsule PO (21:10)
[2019-05-16] VITALS (18 sets, daily range): BP systolic 102–138; BP diastolic 58–97; PULSE 63–86; RESP 16–20; TEMP 36.7–36.9; O2SAT 93–98
[2019-05-16] MEDS: Pramipexole Di-HCl 0.5 MG Tablet PO ×3 (06:18→21:37)
[2019-05-16] MEDS: HYDROcodone Bitartrate/Apap 5/325 Tablet PO ×3 (06:18→21:37)
[2019-05-16] MEDS: Nystatin Powder 15gm Bottle 1 APPLIC TOPICAL ×3 (06:19→21:37)
[2019-05-16 06:34] LABS: Anion Gap 5 (5-15); BUN 41 mg/dL (7-18); BUN/Creat Ratio 30.6 RATIO (10-20); Calcium,Total 9.1 mg/dL (8.5-10.1); Chloride 99 mmol/L (98-107); Creatinine, Serum 1.34 mg/dL (0.55-1.02); EST Glomerular Filtration Rate 42 mL/min (>60); Est Glom Filt Rate - Afr Amer 51 mL/min (>60); Estimated Creatinine Clearance 37.62 ml/min; Glucose 93 mg/dL (74-106); Potassium 4.1 mmol/L (3.5-5.1); Sodium Level 143 mmol/L (136-145)
[2019-05-16] MEDS: Ipratropium/Albuterol Sulfate 3 ML AMPUL.NEB INHALATION ×5 (06:43→23:28)
[2019-05-16] MEDS: Metoprolol Tartrate 25 MG Tablet PO ×2 (09:04→21:37)
[2019-05-16] MEDS: predniSONE 20 MG Tablet 40 MG PO (09:04)
[2019-05-16] MEDS: Flecainide 150 MG Tablet PO (09:04)
[2019-05-16] MEDS: Iron Polysaccharide Complex 150 MG CAPSULE PO (09:04)
[2019-05-16] MEDS: Famotidine 20 MG Tablet PO (09:04)
[2019-05-16] MEDS: Venlafaxine XR 150 MG Capsule PO (09:04)
[2019-05-16] MEDS: Polyethylene Glycol 3350 17 GM PACKET PO (09:05)
[2019-05-16] MEDS: Enoxaparin 40 MG/0.4 ML Syringe SC (09:05)
[2019-05-16] MEDS: guaiFENesin 1,200 MG Tablet 1200 MG PO ×2 (09:05→21:37)
[2019-05-16] MEDS: Fluticasone 0.05% 1 SPRAY NASAL.SRY NASAL (09:05)
[2019-05-16] MEDS: Pantoprazole Sodium 40 MG Tablet PO ×2 (09:06→21:38)
[2019-05-16] MEDS: Lidocaine 5% Patch 1 PATCH TOPICAL (09:06)
[2019-05-16] MEDS: Furosemide 40 MG Tablet PO ×2 (09:12→18:19)
[2019-05-16] MEDS: Acetaminophen 325 MG Tablet 650 MG PO (10:38)
--- NOTE | 2019-05-16 12:25 | PN_ITS ---
Patient Problems: Active and Suspected Problems (Last Reviewed 05/13/19 @ 17:13 by Jacob Duggan DO) EMMANUEL (acute kidney injury) (Acute) Debility (Acute) COPD exacerbation (Acute) Subjective: Patient seen and examined. She feels much better today. Shortness of breath has improved significantly. Review of systems otherwise negative. Labs and vitals reviewed. She remains on her baseline 5 L of oxygen. Bicarb noted to have trended up to 39 which is likely due to volume contraction from diuresis. Vitals/I&O's: Vital Signs Temp Pulse Resp BP Pulse Ox 98.0 F 70 16 102/59 L 96 05/16/19 08:58 05/16/19 10:30 05/16/19 10:30 05/16/19 08:58 05/16/19 08:58 Oxygen Flow Rate (L/min) 5 Oxygen Delivery Method Nasal Cannula Weight: 255 lb 4.725 oz Body Mass Index (BMI) 42.9 Intake and Output for Last 24 Hours 05/14/19 05/15/19 05/16/19 23:59 23:59 23:59 Intake Total 2457.5 / 2457.5 890 / 890 100 / 100 Output Total 4700 / 4700 5300 / 5300 750 / 750 Balance -2242.5 / -2242.5 -4410 / -4410 -650 / -650 General: Alert, Oriented x3, Cooperative, No apparent distress HEENT: Atraumatic, PERRLA, EOMI, Normocephalic Oral: Dry Mucosa Neck: Supple, No JVD, Negative Carotid Bruits Lungs: - - decreased breath sounds bibasally, no wheezes or crackles. on 5L of oxygen, which is her baseline. Cardiovascular: Regular rate, Regular Rhythm, Normal S1, Normal S2, No murmurs Abdomen: Bowel Sounds Present, Soft, Non Tender Extremities: No clubbing, No cyanosis, No edema, Capillary Refill Less than 3 Seconds Skin: No rashes, No breakdown Musculoskeletal: No Tenderness to Palpation of Joints or Extremities Lymphatic: No Cervical, Supraclavicular, or Inguinal Adenopathy Neurological: Cranial nerves II-XII grossly intact, Neuro grossly intact, Motor Exam 5/5 strength throughout Psych/Mental Status: Normal Affect, Appropriate, Alert and oriented to time, place, person, mood and affect Laboratory Results 05/16/19 05:45: Sodium 143, Potassium 4.1, Chloride 99, Carbon Dioxide 39.0 H, Anion Gap 5, BUN 41 H, Creatinine 1.34 H, Estim Creat Clear Calc 37.62, Est GFR (MDRD) Af Amer 51 L, Est GFR (MDRD) Non-Af 42 L, BUN/Creatinine Ratio 30.6 H, Glucose 93, Calcium 9.1 Current Medications Acetaminophen (Tylenol) 650 mg PO Q6H PRN PRN PRN Reason: Mild pain 1-3/Temp > 100.7 F Last Admin: 05/16/19 10:38 Dose: 650 mg Documented by: Hydrocodone Bitart/Acetaminophen ([place] 5mg-325mg) 1 tablet PO TID [facility] Last Admin: 05/16/19 06:18 Dose: 1 tablet Documented by: Al Hydroxide/Mg Hydroxide (Mylanta Ii) 30 ml PO Q6H PRN PRN PRN Reason: Gastric burning Albuterol Sulfate (Ventolin Aerosols) 2.5 mg INHALATION Q2H PRN PRN PRN Reason: SHORTNESS OF BREATH Albuterol/Ipratropium (Duoneb) 3 ml INHALATION Q4H.RT [facility] Last Admin: 05/16/19 10:30 Dose: 3 ml Documented by: Dextrose (D50w Syringe) 0 gm IV X1 PRN; Protocol PRN Reason: Hypoglycemia Enoxaparin Sodium (Lovenox) 40 mg SC DAILY@1000 [facility] Last Admin: 05/16/19 09:05 Dose: 40 mg Documented by: Famotidine (Pepcid) 20 mg PO DAILY [facility] Last Admin: 05/16/19 09:04 Dose: 20 mg Documented by: Flecainide Acetate (Tambocor) 150 mg PO DAILY [facility] Last Admin: 05/16/19 09:04 Dose: 150 mg Documented by: Fluticasone Propionate (Flonase Nasal [place]) 1 spray NASAL DAILY [facility] Last Admin: 05/16/19 09:05 Dose: 1 spray Documented by: Furosemide (Lasix) 40 mg PO BID@1000,1800 [facility] Last Admin: 05/16/19 09:12 Dose: 40 mg Documented by: Gabapentin (Neurontin) 300 mg PO QHS [facility] Last Admin: 05/15/19 21:10 Dose: 300 mg Documented by: Glucagon () 1 mg IM .X1 PRN PRN Reason: Hypoglycemia Guaifenesin (Mucinex) 1,200 mg PO BID [facility] Last Admin: 05/16/19 09:05 Dose: 1,200 mg Documented by: Lidocaine (Lidoderm Patch) 1 patch TOPICAL DAILY [facility]; Protocol Last Admin: 05/16/19 09:06 Dose: 1 patch Documented by: Magnesium Hydroxide (Milk Of Magnesia) 30 ml PO DAILY PRN PRN PRN Reason: Constipation Melatonin (Melatonin) 3 mg PO QHS PRN PRN PRN Reason: INSOMNIA Metoprolol Tartrate (Lopressor (Beta Katerine)) 25 mg PO BID [facility] Last Admin: 05/16/19 09:04 Dose: 25 mg Documented by: Nutritional Formula (Lactose Free) (Ensure Enlive) 120 ml PO 4X/DAY [facility] Last Admin: 05/16/19 09:06 Dose: 120 ml Documented by: Nystatin (Mycostatin Powder) 1 applic TOPICAL TID [facility]; Protocol Last Admin: 05/16/19 06:19 Dose: 1 applicatio Documented by: Ondansetron HCl (Zofran Odt) 4 mg PO Q6H PRN PRN PRN Reason: NAUSEA Ondansetron HCl (Zofran) 4 mg IV Q8H PRN PRN PRN Reason: NAUSEA/VOMITING Pantoprazole Sodium (Protonix) 40 mg PO BID [facility] Last Admin: 05/16/19 09:06 Dose: 40 mg Documented by: Polyethylene Glycol (Miralax) 17 gm PO DAILY [facility] Last Admin: 05/16/19 09:05 Dose: 17 gm Documented by: Polysaccharide Iron Complex (Ferrex 150) [facility] Admin: 05/16/19 09:04 Dose: 150 mg Documented by: Pramipexole Dihydrochloride (Mirapex) 0.5 mg PO TID [facility] Last Admin: 05/16/19 06:18 Dose: 0.5 mg Documented by: Prednisone () 40 mg PO DAILY@0800 [facility] Last Admin: 05/16/19 09:04 Dose: 40 mg Documented by: Senna/Docusate Sodium (Senokot-S, Yamilex-Colace) 2 tablet PO BID PRN PRN PRN Reason: Constipation Sodium Chloride () 10 - 40 ml IV UD PRN PRN Reason: SALINE FLUSH Last Admin: 05/15/19 17:07 Dose: 10 ml Documented by: Venlafaxine HCl (Effexor Xr) 150 mg PO DAILY [facility] Last Admin: 05/16/19 09:04 Dose: 150 mg Documented by: Medical Necessity - Tobacco Use Smoking Status: Former smoker Tobacco Use: Non-smoker Assessment/Plan All Active Problems (Last Reviewed 05/13/19 @ 17:13 by Jacob Duggan DO) EMMANUEL (acute kidney injury) (Acute) Debility (Acute) COPD exacerbation (Acute) Hip fracture (Resolved) Chronic systolic heart failure (Resolved) Weakness (Acute) Chronic combined systolic and diastolic CHF (congestive heart failure) (Resolved) 1. Probable COPD exacerbation * feels better today. * still on her baseline 5L of oxygen;SOB has improved significantly * on PO prednisone and breathing treatments with bronchodilators * titrate oxygen to maintain sats>90% * 2.. Acute on chronic HFpEF * BNP was 1482.3 on admission * on IV lasix 40mg bid; in cumulative negative balance by 6.8L since admission. * will switch IV lasix to PO lasix 40mg bid. * fluid restriction to 1500cc daily * 2D echo(05/14/19): Mildly dilated left ventricle with normal left ventricular systolic function and estimated EF of 55% with segmental dysfunction and stage I diastolic dysfunction as well as inferobasal hypokinesia. RVSP is 39 mmHg. Mild to moderate tricuspid valve insufficiency. * CTA done was negative for PE. * 3. metabolic alkalosis * Bicarb is up to 39 today. Was 30 on admission. * This is likely due to volume contraction from IV Lasix. We will switch to p.o. Lasix today. We will continue monitoring. If bicarb continues to trend up, we will get an ABG and consider given Diamox. * 4. Chronic hypoxic respiratory failure due to COPD * on 5-6L of oxygen at home as under 1. * 5. EMMANUEL: * likely pre-renal due to decreased intake. Creatinine is 1.34 today. IV Lasix is likely also contributing. * will monitor * 6. DEbility and weakness exacerbated by COPD * PT OT to see patient. patient OK to go to TCU 7. Hyperkalemia: resolved. 8. History of paroxysmal A. fib: Status post ablation. Currently rate and rhythm controlled. Will monitor. 9. Bradycardia: Resolved. Heart rate is now between 60 and 70. DVT prohylaxis: lovenox * Disposition: for dc to TCU pending precert. Code Visit Inpatient E&M: 36165 Subs Hosp L2
--- NOTE | 2019-05-16 13:42 | CASEMGMT ---
ANGLE had placed a call to Vee at [facility] and left her a voice mail inquiring if she received ANGLE's fax. ANGLE then received a vm from Vee indicating she agrees with SNF level of care for patient. ANGLE called Katia and left her a voice mail asking her to please start the pre-cert. Plan: TCU pending insurance approval. Lorri HERRERA
[2019-05-16] MEDS: Gabapentin 300 MG Capsule PO (21:37)
[2019-05-16] MEDS: MELATONIN 3 MG TABLET PO (21:38)
[2019-05-17] VITALS (8 sets, daily range): BP systolic 119–129; BP diastolic 59–77; PULSE 61–72; RESP 16–18; TEMP 36.6–36.7; O2SAT 90–94
[2019-05-17] MEDS: Pramipexole Di-HCl 0.5 MG Tablet PO ×2 (05:26→12:57)
[2019-05-17] MEDS: HYDROcodone Bitartrate/Apap 5/325 Tablet PO ×2 (05:26→12:59)
[2019-05-17] MEDS: Nystatin Powder 15gm Bottle 1 APPLIC TOPICAL ×2 (05:26→12:57)
[2019-05-17] MEDS: Ipratropium/Albuterol Sulfate 3 ML AMPUL.NEB INHALATION ×2 (07:23→10:35)
[2019-05-17] MEDS: predniSONE 20 MG Tablet 40 MG PO (07:46)
[2019-05-17] MEDS: Acetaminophen 325 MG Tablet 650 MG PO (07:47)
[2019-05-17] MEDS: Senna/Docusate Sodium 1 Tablet 2 TABLET PO (07:48)
[2019-05-17] MEDS: Iron Polysaccharide Complex 150 MG CAPSULE PO (07:48)
[2019-05-17 08:14] LABS: Anion Gap 1 (5-15); BUN 45 mg/dL (7-18); BUN/Creat Ratio 29.2 RATIO (10-20); Calcium,Total 9.5 mg/dL (8.5-10.1); Chloride 97 mmol/L (98-107); Creatinine, Serum 1.54 mg/dL (0.55-1.02); EST Glomerular Filtration Rate 36 mL/min (>60); Est Glom Filt Rate - Afr Amer 43 mL/min (>60); Estimated Creatinine Clearance 32.73 ml/min; Glucose 88 mg/dL (74-106); Sodium Level 137 mmol/L (136-145)
[2019-05-17] MEDS: Lidocaine 5% Patch 1 PATCH TOPICAL (09:30)
[2019-05-17] MEDS: Polyethylene Glycol 3350 17 GM PACKET PO (09:30)
[2019-05-17] MEDS: Enoxaparin 40 MG/0.4 ML Syringe SC (09:30)
[2019-05-17] MEDS: Venlafaxine XR 150 MG Capsule PO (09:31)
[2019-05-17] MEDS: guaiFENesin 1,200 MG Tablet 1200 MG PO (09:31)
[2019-05-17] MEDS: Pantoprazole Sodium 40 MG Tablet PO (09:31)
[2019-05-17] MEDS: Furosemide 40 MG Tablet PO (09:31)
[2019-05-17] MEDS: Metoprolol Tartrate 25 MG Tablet PO (09:31)
[2019-05-17] MEDS: Famotidine 20 MG Tablet PO (09:31)
[2019-05-17] MEDS: Fluticasone 0.05% 1 SPRAY NASAL.SRY NASAL (09:31)
[2019-05-17] MEDS: Flecainide 150 MG Tablet PO (09:32)
--- NOTE | 2019-05-17 10:00 | CASEMGMT ---
SW received a voice mail and patient was approved to go to TCU. SW notified physician and patient is ready today. ANGLE spoke with patient as per physician patient wants to go home now. Patient asked if SW could call her daughter and have her come in and then the 3 of us can talk about it. SW called patient's daughter and explained situation. She will be in, in a couple of hours. Lorri SHAFER MSW
--- NOTE | 2019-05-17 12:03 | PCM.TXEXTCAR ---
- Diet 05/13/19 17:29 Diet: Cardiac/Low Cholesterol Food consistency:: Regular Liquid Consistency:: Regular/Thin - Routine Orders/Code Status Enema Type: Fleetz Enema Frequency: Daily PRN Suppository Type: Dulcolax 10mg Suppository Frequency: Daily PRN O2 Liters per Minute: 5 O2 Frequency: Continuous Keep PO Greater than or Equal to (%): 90 Routine Lab Work: BMP - to monitor potassium level Code Status: Full Code - Therapies Weight Bearing: Weight bearing as tolerated Physical Therapy: Eval and Treat Occupational Therapy: Eval and Treat - Allergies/Procedures Done in Hospital Allergies/Adverse Reactions: Allergies doxycycline Allergy (Severe, Verified 05/13/19 14:27) ulcerations of lips and mouth gabapentin Adverse Reaction (Severe, Verified 05/13/19 14:27) GI upset, Vomiting ciprofloxacin [From Cipro] Adverse Reaction (Intermediate, Verified 05/13/19 14:27) Other messes with her heart medicine Procedures: 2-D Echocardiogram - Type of Care/Length of Stay Estimated LOS: Convalescent Care Less Than 30 days Type of Care Needed: Skilled Rehab Potential: Fair Prognosis: Fair - Additional Orders/Day of Discharge Day of Discharge: 05/17/19 - Dietary and Speech Recommendations Dietitian Recommendations/Changes: Recommend continue cardiac/low cholesterol diet/1500 mL fluid restriction. Will d/c Ensure Enlive 120 mL 4x/day on medpass d/t pt dislike and current fluid restriction. - Follow Up Care Primary Care Physician: Darinel Callejas Chi, MD [Primary Care Provider] - Please follow up with your Primary Care Physician in: one week Please Follow Up With: Carroll Mercado MD When: 2 weeks; call office within one week for an appointment
--- NOTE | 2019-05-17 12:06 | PCM.DC.SUM ---
Discharge Date and Diagnosis - Problem List Patient Problems: Active and Suspected Problems (Last Reviewed 05/13/19 @ 17:13 by Jacob Duggan DO) EMMANUEL (acute kidney injury) (Acute) Debility (Acute) COPD exacerbation (Acute) Date of Admission: 05/13/19 Date of Discharge: 05/17/19 - Primary Discharge Diagnosis Active and Suspected Problems (Last Reviewed 05/13/19 @ 17:13 by Jacob Duggan DO) EMMANUEL (acute kidney injury) (Acute) Debility (Acute) COPD exacerbation (Acute) - Secondary Discharge Diagnosis Chronic Problems (Last Reviewed 05/13/19 @ 17:13 by Jacob Duggan DO) Cardiomyopathy, dilated (Chronic) ESPERANZA (obstructive sleep apnea) (Chronic) Chronic respiratory failure with hypoxia (Chronic) Anxiety (Chronic) Depression (Chronic) Osteoarthritis (Chronic) Pulmonary nodules (Chronic) Left ventricular hypertrophy (Chronic) Back pain (Chronic) Super 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) GERD (gastroesophageal reflux disease) (Chronic) Shortness of breath (Chronic) Non-sustained ventricular tachycardia (Chronic) Dysmetabolic syndrome (Chronic) Hypertension (Chronic) 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) 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 Stable hiatal hernia. Electronically Signed: Reji Lopez, at 16:05 EDT Tel , Service support , Operations: None Procedures: 2-D Echocardiogram Summary of Care Provided: The patient is a 68 year old F with an extensive past medical history as listed. She was admitted through the ED on 05/13/2019 with a complaint of shortness of breath as well as weakness and epigastric pain. Shortness of breath had been over the past month and patient had gradually been getting weaker. CTA of the chest done was negative for any PE. Her BNP was elevated over thousand when she came in and d-dimer was also elevated but CT angiogram showed no evidence of PE. She was started on Solu-Medrol and bronchodilators and managed for possible acute COPD exacerbation as well as EMMANUEL, hyperkalemia and debility and weakness. Patient shortness of breath however persisted and in light of her elevated BNP, diagnosis was altered to acute exacerbation of heart failure with preserved ejection fraction. She was started on IV Lasix 40 mg twice daily. Hyperkalemia resolved with administration of Kayexalate. Patient was diuresed successfully and she felt much better. 2D echo done showed EF of 55%, segmental dysfunction and preserved EF. Creatinine also trended down gradually and was 1.34 at time of discharge. Bradycardia which was noted on admission also resolved. She also received a 5 day course of PO prednisone. She remained stable and was discharged to TCU on 05/17/19. She was discharged with a script for PO lasix 40mg bid and PO potassium 20mg daily. She is to have weekly BMP to monitor potassium level. She is to follow up with her PCP, and also to follow up with cardiology to establish cardiology relationship. Patient seen and examined prior to discharge. SHe was initially refusing to go to the SNF, but after a discussion with her daughter, agreed to go to SNF. REview of systems was otherwise negative. She remained on her home oxygen level of 5L. Labs and vitals reviewed. Bicarb noted to have stayed at 39. Bicarbonate admission was 130 and this is likely due to contraction alkalosis from diuresis. o/e: Vital Signs Height 5 ft 6 in Weight: 254 lb 13.67 oz Weight in Pounds 254.9 lbs Pulse Ox 92 Temperature 97.9 F Pulse Rate [Standing] 58 Pulse Rate [Sitting] 59 Pulse Rate [Lying] 52 Pulse Rate 65 Respiratory Rate 16 Blood Pressure [Standing] 111/73 Blood Pressure [Sitting] 100/69 Blood Pressure [Lying] 106/61 Blood Pressure 129/77 Blood Pressure Position Semi-Fowlers [] General: Alert, Oriented x3, Cooperative, No apparent distress HEENT: Atraumatic, PERRLA, EOMI, Normocephalic Oral: Dry Mucosa Neck: Supple, No JVD, Negative Carotid Bruits Lungs: - - decreased breath sounds bibasally, few crackes and audible wheezing bilaterally. on 5L of oxygen, which is her baseline. Cardiovascular: Regular rate, Regular Rhythm, Normal S1, Normal S2, No murmurs Abdomen: Bowel Sounds Present, Soft, Non Tender Extremities: No clubbing, No cyanosis, No edema, Capillary Refill Less than 3 Seconds Skin: No rashes, No breakdown Musculoskeletal: No Tenderness to Palpation of Joints or Extremities Lymphatic: No Cervical, Supraclavicular, or Inguinal Adenopathy Neurological: Cranial nerves II-XII grossly intact, Neuro grossly intact, Motor Exam 5/5 strength throughout Psych/Mental Status: Normal Affect, Appropriate, Alert and oriented to time, place, person, mood and affect Plan as above. Of note, patient not started on ALLEGRA/ARB o/a of EMMANUEL. CR was 1.54 at time of discharge. She is to follow up [facility] PCP and cardiology, for decision to be made about whether to start low dose ALLEGRA/ARB, based on kidney function. Patient Problems: Active and Suspected Problems (Last Reviewed 05/13/19 @ 17:13 by Jacob Duggan DO) EMMANUEL (acute kidney injury) (Acute) Debility (Acute) COPD exacerbation (Acute) - Physical Exam Vital Signs Temp Pulse Resp BP Pulse Ox 97.9 F 65 16 129/77 H 92 05/17/19 09:25 05/17/19 10:59 05/17/19 10:35 05/17/19 09:31 05/17/19 09:25 Oxygen Flow Rate (L/min) 5 Oxygen Delivery Method Nasal Cannula Weight: 254 lb 13.67 oz Body Mass Index (BMI) 42.9 Intake and Output for Last 24 Hours 05/15/19 05/16/19 05/17/19 23:59 23:59 23:59 Intake Total 890 / 890 700 / 700 270 / 270 Output Total 5300 / 5300 1925 / 1925 1350 / 1350 Balance -4410 / -4410 -1225 / -1225 -1080 / -1080 Laboratory Tests Past 24 Hrs 05/17/19 07:52 Sodium 137 Potassium 4.0 Chloride 97 L Carbon Dioxide 39.0 H Anion Gap 1 L BUN 45 H Creatinine 1.54 H Estim Creat Clear Calc 32.73 Est GFR (MDRD) Af Amer 43 L Est GFR (MDRD) Non-Af 36 L BUN/Creatinine Ratio 29.2 H Glucose 88 Calcium 9.5 2D echo Interpretation Summary Left ventricular systolic function is normal. The estimated ejection fraction is 55 %. Mildly dilated left ventricle. Stage 1 diastolic dysfunction. Mild to moderate (1-2+) tricuspid valve insufficiency. Discharge Diet: Low fat/ Low Cholesterol Weight Bearing Status: Weight bearing as tolerated Call your doctor if you observe: Shortness of breath, Swelling in the ankles Home Medications: Medications to take at Discharge Albuterol Inhaler [Ventolin Hfa] 1 puff INHALATION Q4H PRN PRN 08/08/13 Fluticasone 0.05% [Flonase Nasal [place]] 1 spray NASAL DAILY 08/08/13 flecainide 150 mg tablet 150 mg PO BID 08/16/17 Venlafaxine HCl [Venlafaxine HCl ER] 75 mg PO QHS 01/28/18 Metoprolol Tartrate [Lopressor (beta bairon)] 25 mg PO BID 02/01/18 Acetaminophen [Tylenol] 1,000 mg PO Q8 05/13/19 Famotidine [Pepcid] 40 mg PO DAILY 05/13/19 Guaifenesin [Mucinex] 1,200 mg PO BID 05/13/19 Hydrocodone/Acetaminophen [[place] 7.5-325 Tablet] 1 ea PO TID 05/13/19 Lidocaine [Lidoderm Patch] 1 patch TOPICAL DAILY PRN 05/13/19 Venlafaxine HCl [Venlafaxine HCl ER] 150 mg PO DAILY 05/13/19 Furosemide [Lasix] 40 mg PO BID@1000,1800 #60 tab 05/17/19 Potassium Chloride [Klor-Con] 20 meq PO DAILY #30 packet 05/17/19 Following Prescrptions Were Given to Patient: Potassium Chloride [Klor-Con] 20 meq PO DAILY #30 packet Transmission Status: Received by [facility]/pharmacy #[id number] Furosemide [Lasix] 40 mg PO BID@1000,1800 #60 tab Transmission Status: Received by [facility]/pharmacy #[id number] Primary Care Physician: Darinel Callejas Chi, MD [Primary Care Provider] - Please follow up with your Primary Care Physician in: one week Please Follow Up With: Carroll Mercado MD When: 2 weeks; call office within one week for an appointment [facility] Minutes spent on discharge:: 40 Patient Condition:: Stable Medical Necessity - Tobacco Use Smoking Status: Former smoker Tobacco Use: Non-smoker Meaningful Use Info Meaningful Use Diagnoses (Choose all that apply): CHF - CHF ALLEGRA/ARB ordered at discharge?: No Reason ALLEGRA/ARB not ordered?: Worsening renal dysfunctn Documented LVEF (%): 55 Code Visit Inpatient E&M: 81134 Disch Hosp
--- NOTE | 2019-05-17 12:21 | PCM.DC.SUM ---
Discharge Date and Diagnosis - Problem List Patient Problems: Active and Suspected Problems (Last Reviewed 05/13/19 @ 17:13 by Jacob Duggan DO) EMMANUEL (acute kidney injury) (Acute) Debility (Acute) COPD exacerbation (Acute) Date of Admission: 05/13/19 - Primary Discharge Diagnosis Active and Suspected Problems (Last Reviewed 05/13/19 @ 17:13 by Jacob Duggan DO) EMMANUEL (acute kidney injury) (Acute) Debility (Acute) COPD exacerbation (Acute) - Secondary Discharge Diagnosis Chronic Problems (Last Reviewed 05/13/19 @ 17:13 by Jacob Duggan DO) Cardiomyopathy, dilated (Chronic) ESPERANZA (obstructive sleep apnea) (Chronic) Chronic respiratory failure with hypoxia (Chronic) Anxiety (Chronic) Depression (Chronic) Osteoarthritis (Chronic) Pulmonary nodules (Chronic) Left ventricular hypertrophy (Chronic) Back pain (Chronic) Super 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) GERD (gastroesophageal reflux disease) (Chronic) Shortness of breath (Chronic) Non-sustained ventricular tachycardia (Chronic) Dysmetabolic syndrome (Chronic) Hypertension (Chronic) 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) 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 (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) Paroxysmal atrial fibrillation (Chronic) Asthma (Chronic) COPD (chronic obstructive pulmonary disease) (Chronic) Hospital Course and Treatment Operations: None Summary of Care Provided: The patient is a 68 year old F [] Patient Problems: Active and Suspected Problems (Last Reviewed 05/13/19 @ 17:13 by Jacob Duggan DO) EMMANUEL (acute kidney injury) (Acute) Debility (Acute) COPD exacerbation (Acute) - Physical Exam Vital Signs Temp Pulse Resp BP Pulse Ox 97.9 F 65 16 129/77 H 92 05/17/19 09:25 05/17/19 10:59 05/17/19 10:35 05/17/19 09:31 05/17/19 09:25 Oxygen Flow Rate (L/min) 5 Oxygen Delivery Method Nasal Cannula Weight: 254 lb 13.67 oz Body Mass Index (BMI) 42.9 Intake and Output for Last 24 Hours 05/15/19 05/16/19 05/17/19 23:59 23:59 23:59 Intake Total 890 / 890 700 / 700 270 / 270 Output Total 5300 / 5300 1925 / 1925 1350 / 1350 Balance -4410 / -4410 -1225 / -1225 -1080 / -1080 Laboratory Tests Past 24 Hrs 05/17/19 07:52 Sodium 137 Potassium 4.0 Chloride 97 L Carbon Dioxide 39.0 H Anion Gap 1 L BUN 45 H Creatinine 1.54 H Estim Creat Clear Calc 32.73 Est GFR (MDRD) Af Amer 43 L Est GFR (MDRD) Non-Af 36 L BUN/Creatinine Ratio 29.2 H Glucose 88 Calcium 9.5 Home Medications: Medications to take at Discharge Albuterol Inhaler [Ventolin Hfa] 1 puff INHALATION Q4H PRN PRN 08/08/13 Fluticasone 0.05% [Flonase Nasal [place]] 1 spray NASAL DAILY 08/08/13 flecainide 150 mg tablet 150 mg PO BID 08/16/17 Venlafaxine HCl [Venlafaxine HCl ER] 75 mg PO QHS 01/28/18 Metoprolol Tartrate [Lopressor (beta bairon)] 25 mg PO BID 02/01/18 Acetaminophen [Tylenol] 1,000 mg PO Q8 05/13/19 Famotidine [Pepcid] 40 mg PO DAILY 05/13/19 Guaifenesin [Mucinex] 1,200 mg PO BID 05/13/19 Hydrocodone/Acetaminophen [[place] 7.5-325 Tablet] 1 ea PO TID 05/13/19 Lidocaine [Lidoderm Patch] 1 patch TOPICAL DAILY PRN 05/13/19 Venlafaxine HCl [Venlafaxine HCl ER] 150 mg PO DAILY 05/13/19 Furosemide [Lasix] 40 mg PO BID@1000,1800 #60 tab 05/17/19 Potassium Chloride [Klor-Con] 20 meq PO DAILY #30 packet 05/17/19 Following Prescrptions Were Given to Patient: Potassium Chloride [Klor-Con] 20 meq PO DAILY #30 packet Transmission Status: Pending to [facility][id number] Furosemide [Lasix] 40 mg PO BID@1000,1800 #60 tab Transmission Status: Pending to [facility] #[id number] Primary Care Physician: Darinel Callejas Chi, MD [Primary Care Provider] - Please follow up with your Primary Care Physician in: one week Please Follow Up With: Carroll Mercado MD When: 2 weeks; call office within one week for an appointment Medical Necessity - Tobacco Use Smoking Status: Former smoker Tobacco Use: Non-smoker
[2019-05-17] MEDS: AcetaZOLAMIDE 250 MG Tablet PO (12:59)
--- NOTE | 2019-05-17 13:19 | CASEMGMT ---
ANGLE met with patient and her daughter. TCU was discussed and patient agreed to go. ANGLE notified physician. Orders copied. Plan: [facility] TCU under skilled level of care. Lorri HERRERA
--- NOTE | 2019-05-17 13:39 | NURSING ---
This RN called report to DARLING Myers.
== END 2019-05-17 13:53 | disposition skilled nursing facility (03) | DRG 292 ==
LOC: ED 14:42 → PCU 17:12
PROVIDERS: Emergency Provider Emergency Medicine; Family Provider Family Medicine Geriatric Medicine; PCP Family Medicine Geriatric Medicine; Visit Provider Student in an Organized Health Care Education/Training Program
DX: I50.33 Acute on chronic diastolic (congestive) heart failure (principal); J44.1 Chronic obstructive pulmonary disease with (acute) exacerbation; I42.0 Dilated cardiomyopathy; J96.11 Chronic respiratory failure with hypoxia; Z68.41 Body mass index [BMI] 40.0-44.9, adult; I11.0 Hypertensive heart disease with heart failure; E87.5 Hyperkalemia; R00.1 Bradycardia, unspecified; G47.33 Obstructive sleep apnea (adult) (pediatric); R53.81 Other malaise; M54.9 Dorsalgia, unspecified; E66.01 Morbid (severe) obesity due to excess calories; Z99.81 Dependence on supplemental oxygen; Z87.891 Personal history of nicotine dependence; F41.9 Anxiety disorder, unspecified; F32.9 Major depressive disorder, single episode, unspecified; M19.90 Unspecified osteoarthritis, unspecified site
CPT/HCPCS: 36415; 71275; 80048; 80076; 82306; 83690; 83880; 84443; 84484; 85025; 85379; 93005; 93306; 94640; 97162; 97166; 97530; 97535; 97802; 99285; J7030; Q9957; Q9967; A4216; J1940; J2405

== ENCOUNTER 2019-05-17 14:17 | Inpatient (IN) | payer MEDICARE, SELFPAY ==
[2019-05-13 17:35] VITALS: BMI 42.9
[2019-05-17 14:36] VITALS: BMI 38.2
[2019-05-17 14:42] VITALS: BMI 38.2
--- NOTE | 2019-05-17 15:19 | NURSING ---
Skin assessment done with DARLING Mills. Pt very anxious, 1:1 emotional support provided, explaination of why we are checking her skin many times and pt not understanding why this needs to be done. Skin intact but scattered little scabs & bruising noted to bilat arms. Pt has ladies silver watch, but refused to send home with family. Daughter at side. PA and bed alarm placed for safety, d/t pt with confusion & forgetfulness according to PCU nurse.
[2019-05-17 15:27] VITALS: BP 111/74; PULSE 72; RESP 18; TEMP 36.9; O2SAT 92
[2019-05-17] MEDS: ALPRAZolam 0.5 MG Tablet 1 MG PO (17:32)
--- NOTE | 2019-05-17 17:40 | NURSING ---
1715 Entered room to find pt sitting in recliner chair, bed alarm sounding. Pt had moved from her bed to recliner chair. She began yelling and screaming that staff came in & put her in bed per pt request. Pt was yelling and throwing her hands in air I dont want treated like this, they came in here put my bed on floor with these damn mats, i had difficulty getting out of bed, I didnt come her to be treated like this, those kids should not be allowed to work here they just kept laughing at me, it was noted that oxygen nasal cannula not in nares tubing laying on floor. Oxygen reapplied safely. Daughter arrived within 5 minutes of this nurse entering room. (security arrived to floor) Explained to daughter and pt that it is our protocol to use alarms and hi/lo bed for risk of falls. 1:1 emotional support provided. Pt asking for something for her nerves, very anxious about the move to TCU. Dr Callejas went in to see pt per pt request, (Dr Callejas is her PCP), came out and asked this nurse to admin xanax 1 mg x1 now. When this typewriter mechanic began to enter order at nurses station, daughter at desk confronting the CARPENTER [employer] ERECTING that assisted pt to bed. Dr Callejas came walking into nurses station & daughter began claiming Dr Callejas was laughing at the patient. Daughter called Dr Callejas a liar & Dr callejas stated he was here to help her and that he did not laugh at her. Dr Callejas stated that he would have Katia chronic disease manager address the complaint in the morning. Daughter wheeled herself back into mothers room, this nurse entered to administer the xanax per pt request and pt asked to speak with Dr Callejas again. Pt wanting to go home, explained to pt that we are not holding her against her will that she can leave, but she is here for therapy. Pt took medication with some encouragement. pt sat 98% on 5 liters after pt calmed down some. So bed put in normal height position & mats removed from room per pt request. Alarm in chair for safety. Call light in reach. 1800 pt calmer and resting in recliner chair, daughter at bedside. chronic disease manager notified of incident by phone.
[2019-05-17 18:19] VITALS: BP 111/74; PULSE 72
[2019-05-17] MEDS: Metoprolol Tartrate 25 MG Tablet PO (18:19)
[2019-05-17] MEDS: Flecainide 150 MG Tablet PO (18:19)
[2019-05-17] MEDS: Furosemide 40 MG Tablet PO (18:19)
[2019-05-17] MEDS: guaiFENesin 1,200 MG Tablet 1200 MG PO (18:19)
[2019-05-17] MEDS: Venlafaxine XR 75 MG Capsule PO (19:46)
[2019-05-17] MEDS: Acetaminophen 500 MG Tablet 1000 MG PO (19:46)
--- NOTE | 2019-05-17 22:06 | HP.PCM_ITS ---
Problem List (1) Hyperkalemia Status: Acute (2) Sleep apnea Status: Chronic (3) Atrial fibrillation Status: Chronic (4) Acute on chronic diastolic heart failure Status: Acute (5) Vitamin D deficiency Status: Chronic (6) Allergic rhinitis Status: Chronic (7) Restless leg syndrome Status: Chronic (8) EMMANUEL (acute kidney injury) Status: Acute (9) Debility Status: Acute (10) GERD (gastroesophageal reflux disease) Status: Chronic (11) Shortness of breath Status: Chronic (12) Hypertension Status: Chronic (13) Asthma Status: Chronic (14) COPD (chronic obstructive pulmonary disease) Status: Chronic Qualifiers: History of Present Illness Date of Admission: 05/17/19 Chief Complaint: Here for rehabilitation, strengthening, prior to discharge home with daughter. The patient is a 68 year old Female with below past medical history presented to [facility] Emergency Department 05/13/2019 with shortness of breath. 05/13/2019 EKG showed junctional rhythm, rate 48, non-specific intra-ventricular conduction block. 05/13/2019 CTA chest negative pulmonary embolism, stable hiatal hernia. Shortness of breath x several weeks, dry cough, dyspnea on exertion. General weakness. Home oxygen 6 liters per NC. WBC 11.5, Hemoglobin 12, Hematocrit 31, Platelet 327. Sodium 138, K 5.6, BUN 42, Cr 1.66, Troponin okay. BNP 1482, D-dimer 0.85. Duoneb, Solu-Medrol given. 05/13/2019 Admit to Hospital. IV Fluids for acute kidney injury. Steroids, aerosols for COPD exacerbation. PT/OT for debility. Kayexalate for hyperkalemia. 05/14/2019 Echo Left ventricular systolic function normal. EF 55% Stage 1 diastolic dysfunction. IV Lasix 40MG twice daily for diastolic dysfunction. Renal function improved. 05/15/2019 Potassium improved to 5 after kayexalate. 05/16/2019 IV Lasix changed to PO Lasix. 05/17/2019 Admit to TCU with debility, here for rehabilitation, strengthening, prior to discharge home with daughter. Upon arrival to TCU, resident was agitated, security was called, Xanax 1MG PO given, resident improved. Past Medical History Past Medical History (Chronic Problems): Chronic Problems (Last Reviewed 05/13/19 @ 17:13 by Jacob Duggan DO) Sleep apnea (Chronic) Atrial fibrillation (Chronic) Vitamin D deficiency (Chronic) Allergic rhinitis (Chronic) Restless leg syndrome (Chronic) Cardiomyopathy, dilated (Chronic) ESPREANZA (obstructive sleep apnea) (Chronic) Chronic respiratory failure with hypoxia (Chronic) Anxiety (Chronic) Depression (Chronic) Osteoarthritis (Chronic) Pulmonary nodules (Chronic) Left ventricular hypertrophy (Chronic) Back pain (Chronic) Super 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) GERD (gastroesophageal reflux disease) (Chronic) Shortness of breath (Chronic) Non-sustained ventricular tachycardia (Chronic) Dysmetabolic syndrome (Chronic) Hypertension (Chronic) 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) 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 medical therapy (Chronic) Paroxysmal atrial fibrillation (Chronic) Asthma (Chronic) COPD (chronic obstructive pulmonary disease) (Chronic) Medical History: Medical History (Last Reviewed 05/13/19 @ 17:13 by Jacob Duggan DO) Cardiomyopathy, dilated (Chronic) I42.0 Chronic combined systolic and diastolic CHF (congestive heart failure) (Resolved) I50.42 Non-sustained ventricular tachycardia (Chronic) I47.2 Dysmetabolic syndrome (Chronic) E88.81 Hypertension (Chronic) I10 Paroxysmal atrial fibrillation (Chronic) I48.0 Asthma (Chronic) J45.909 COPD (chronic obstructive pulmonary disease) (Chronic) J44.9 Chronic back pain M54.9, G89.29 Chronic bronchitis J42 GERD (gastroesophageal reflux disease) K21.9 Kidney disease, chronic, stage III (GFR 30-59 ml/min) N18.3 blood clots Allergies doxycycline Allergy (Severe, Verified 05/13/19 14:27) ulcerations of lips and mouth gabapentin Adverse Reaction (Severe, Verified 05/13/19 14:27) GI upset, Vomiting ciprofloxacin [From Cipro] Adverse Reaction (Intermediate, Verified 05/13/19 14:27) Other messes with her heart medicine Home Medications: Ambulatory Orders Medication Instructions Recorded Albuterol Inhaler [Ventolin Hfa] 1 puff INHALATION Q4H PRN PRN 08/08/13 Fluticasone 0.05% [Flonase Nasal 1 spray NASAL DAILY 08/08/13 [place]] flecainide 150 mg tablet 150 mg PO BID 08/16/17 Venlafaxine HCl [Venlafaxine HCl 75 mg PO QHS 01/28/18 ER] Metoprolol Tartrate [Lopressor 25 mg PO BID 02/01/18 (beta bairon)] Acetaminophen [Tylenol] 1,000 mg PO Q8 05/13/19 Famotidine [Pepcid] 40 mg PO DAILY 05/13/19 Guaifenesin [Mucinex] 1,200 mg PO BID 05/13/19 Hydrocodone/Acetaminophen [[place] 1 ea PO TID 05/13/19 7.5-325 Tablet] Lidocaine [Lidoderm Patch] 1 patch TOPICAL DAILY PRN 05/13/19 Venlafaxine HCl [Venlafaxine HCl 150 mg PO DAILY 05/13/19 ER] Furosemide [Lasix] 40 mg PO BID@1000,1800 05/17/19 Potassium Chloride [Klor-Con] 20 meq PO DAILY 05/17/19 Surgical History: Surgical History (Last Reviewed 05/13/19 @ 17:13 by Jacob Duggan DO) H/O cardiac radiofrequency ablation Onset Date: ~09/03/13 Z98.890 H/O hysterectomy with oophorectomy H/O tubal ligation Z98.51 History of knee surgery Z98.890 Surgical History: hysterectomy, - - tubal ligation, oophorectomy, knee surgery, status post cardiac radiofrequency ablation, cardiac catheterization, Left hip ORIF intramedullary nail. Psychiatric History: Anxiety, Depression, - - Non-compliance. 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 Smoking Status: Former smoker Tobacco Use: Non-smoker Alcohol: None Drugs: None - *Family History Maternal Family History: Family History (Last Reviewed 05/13/19 @ 17:13 by Jacob Duggan DO) Mother Heart disease Arthritis blood clots Hypertension Father arthrits Cancer Brother Cancer Aunt Breast cancer Depression Ovarian cancer Grandmother CVA (cerebral vascular accident) Aunt Diabetes History Items: Heart Disease, Hypertension, - - Blood clot Paternal Family History: Family History (Last Reviewed 05/13/19 @ 17:13 by Jacob Duggan DO) Mother Heart disease Arthritis blood clots Hypertension Father arthrits Cancer Brother Cancer Aunt Breast cancer Depression Ovarian cancer Grandmother CVA (cerebral vascular accident) Aunt Diabetes History Items: Cancer - Lung cancer Review of Systems Constitutional: Denies: Chills, Fever, Weight Change HEENT: Denies: Head Aches, Sinus Congestion, Sinus Drainage Cardiovascular: Denies: Chest Pain, Palpitations Respiratory: Denies: Cough, Shortness of breath at rest, Sputum production Gastrointestinal: Denies: Abdominal Pain, Nausea, Vomiting Genitourinary: Denies: Dysuria Musculoskeletal: Denies: Joint Pain, Joint Tenderness Skin: Denies: Rash, Wounds Neurological: Denies: Numbness, Tingling, Focal weakness Psychiatric: Denies: Anxiety, Depression, Homicidal Ideations, Suicidal Ideations Hematologic/ Lymphatic: Denies: Easy Bruising, Easy Bleeding VTE Information - Inpt Only VTE Present on Admission: No VTE Mechan Device Prophylaxis: Knee High BEATRICE Hose VTE Pharm Prophylaxis ordered?: Yes Patient Problems: Active and Suspected Problems (Last Reviewed 05/13/19 @ 17:13 by Jacob Duggan DO) Hyperkalemia (Acute) Acute on chronic diastolic heart failure (Acute) - Physical Exam General: Alert, Oriented x3, Cooperative HEENT: Atraumatic, PERRLA, EOMI, Normocephalic Neck: Supple, No JVD, Negative Carotid Bruits Lungs: Clear to auscultation, Normal air movement Cardiovascular: Regular rate, No murmurs Abdomen: Bowel Sounds Present, Soft, Non Tender Extremities: No edema, Capillary Refill Less than 3 Seconds Skin: No rashes, No breakdown Musculoskeletal: No Tenderness to Palpation of Joints or Extremities Neurological: Cranial nerves II-XII grossly intact Psych/Mental Status: Normal Affect, Appropriate Vital Signs Temp Pulse Resp BP Pulse Ox 98.4 F 72 18 111/74 92 05/17/19 15:27 05/17/19 18:19 05/17/19 15:27 05/17/19 18:19 05/17/19 15:27 Oxygen Flow Rate (L/min) 4 Oxygen Delivery Method Nasal Cannula Weight: 107.4 kg Body Mass Index (BMI) 38.2 Intake and Output for Last 24 Hours 05/15/19 05/16/19 05/17/19 23:59 23:59 23:59 Intake Total 120 / 120 Balance 120 / 120 Assessment/Plan All Active Problems (Last Reviewed 05/13/19 @ 17:13 by Jacob Duggan DO) EMMANUEL (acute kidney injury) (Acute) Debility (Acute) COPD exacerbation (Acute) Hyperkalemia (Acute) Acute on chronic diastolic heart failure (Acute) Hip fracture (Resolved) Chronic systolic heart failure (Resolved) Weakness (Acute) Chronic combined systolic and diastolic CHF (congestive heart failure) (Resolved) 68 year old female with below past medical history hospitalized for shortness of breath secondary to COPD exacerbation, acute on chronic diastolic congestive hea rt failure, complicated by acute kidney injury, hyperkalemia, admitted to TCU with debility, here for rehabilitation, strengthening, prior to discharge home with daughter. * Debility - PT/OT. * Pain - Tylenol 1000MG Q8H, Oxycodone 5MG Q6H PRN moderate pain, Lidoderm patch 1 patch topical daily PRN. * Bowel - Miralax 17GM daily, Senna/colace 2 tablets BID, Dulcolax 10MG FL daily PRN. * Pneumonia vaccination - Administer Prevnar 13 and/or Pneumovax 23 as necessary. * DVT prophylaxis - Lovenox 30MG SC daily. * COPD - Albuterol MDI 1 puff Q4H PRN. * GERD - Famotidine 40MG daily. * Atrial Fibrillation - Metoprolol 25MG BID, Flecainide 150MG BID, ? anticoagulation. * Allergic Rhinitis - Flonase 1 spray daily. * Acute on chronic diastolic congestive heart failure - Metoprolol 25MG BID, Lasix 40MG BID. * Congestion - Mucinex 1200MG BID. * Hypokalemia - KCL 20MEQ daily. * Depression - Venlafaxine 150MG QAM, 75MG QHS. * Agitation - Xanax 1MG PO x 1 dose with improvement of symptoms.
--- NOTE | 2019-05-17 22:50 | PCA ---
checked resident on rounds. resident is in bed sleeping and no behavior issues at this time. o2 on and call light was within reach.
[2019-05-18] MEDS: oxyCODONE 5 MG Tablet PO ×3 (00:43→17:23)
[2019-05-18] MEDS: Fluticasone 0.05% 1 SPRAY NASAL.SRY NASAL (04:24)
[2019-05-18 04:25] VITALS: BP 121/82; PULSE 68
[2019-05-18] MEDS: Metoprolol Tartrate 25 MG Tablet PO ×2 (04:25→17:26)
[2019-05-18] MEDS: Flecainide 150 MG Tablet PO ×2 (04:25→17:26)
[2019-05-18] MEDS: Acetaminophen 500 MG Tablet 1000 MG PO ×3 (04:25→20:08)
[2019-05-18] MEDS: Famotidine 20 MG Tablet 40 MG PO (04:25)
[2019-05-18] MEDS: guaiFENesin 1,200 MG Tablet 1200 MG PO ×2 (04:25→17:25)
[2019-05-18] MEDS: Venlafaxine XR 150 MG Capsule PO (04:25)
[2019-05-18] MEDS: Polyethylene Glycol 3350 17 GM PACKET PO (04:29)
[2019-05-18] MEDS: Enoxaparin 30 MG/0.3 ML Syringe SC (04:29)
[2019-05-18] MEDS: Senna/Docusate Sodium 1 Tablet 2 TABLET PO ×2 (04:29→17:26)
[2019-05-18 05:56] LABS: Absolute Neutrophil Count 9.4 X10^3/uL (2.0-7.7); Basophil# 0.04 X10^3/uL; Basophil% 0.3 % (0-1); Eosinophils% 0.8 % (0-5); Hematocrit 46.2 % (37-47); Hemoglobin 14.2 g/dL (12.0-15.0); Lymphocyte % 16.6 % (19-41); Mean Corp Hgb Conc 30.7 g/dL (32-36); Mean Corpuscular Hgb 30.1 pg (27.0-32.0); Mean Corpuscular Volume 98.1 fL (81-99); Mean Platelet Vol. 9.4 fl (6.2-12.0); Monocyte% 7.9 % (0-10); NRBC Flagged by Analyzer 0 % (0-5); Neutrophil # 9.35 X10^3/uL (2.7-7.7); Neutrophil % 73.8 % (47-70); Platelet Count 395 K/mm3 (150-450); RBC Distribution Width CV 12.9 % (11.6-14.6); RBC Distribution Width SD 46.1 fl (35.1-43.9); Red Blood Count 4.71 M/mm3 (4.2-5.4); White Blood Count 12.7 K/mm3 (4.4-11.0)
[2019-05-18 06:10] LABS: Anion Gap 7 (5-15); BUN 45 mg/dL (7-18); BUN/Creat Ratio 28.5 RATIO (10-20); Calcium,Total 9.7 mg/dL (8.5-10.1); Chloride 96 mmol/L (98-107); Creatinine, Serum 1.58 mg/dL (0.55-1.02); EST Glomerular Filtration Rate 35 mL/min (>60); Est Glom Filt Rate - Afr Amer 42 mL/min (>60); Glucose 78 mg/dL (74-106); Potassium 3.7 mmol/L (3.5-5.1); Sodium Level 139 mmol/L (136-145)
[2019-05-18 07:27] VITALS: O2SAT 92
[2019-05-18] MEDS: Furosemide 40 MG Tablet PO ×2 (09:14→17:25)
--- NOTE | 2019-05-18 10:20 | NURSING ---
Spoke with pt about having alarms on, explained to pt why we use them and the risks of not having them. Pt agreeable to have alarms on at this time, states I just don't want them to make me feel bad when I get up on my own, I forget that I should have help. Hi lo bed removed per pt request and regular bed placed in her room.
[2019-05-18] MEDS: Tuberculin,Purif.prot.deriv. 50 TU/ML Vial 5 ML ID (13:54)
--- NOTE | 2019-05-18 13:58 | PHA.CONS_ITS ---
<RmairezanilaSharon M - Last Filed: 05/18/19 13:58> Progress Note - Pharmacy Subjective: TCU Admission Objective: Allergies doxycycline Allergy (Severe, Verified 05/13/19 14:27) ulcerations of lips and mouth gabapentin Adverse Reaction (Severe, Verified 05/13/19 14:27) GI upset, Vomiting ciprofloxacin [From Cipro] Adverse Reaction (Intermediate, Verified 05/13/19 14:27) Other messes with her heart medicine Current Medications Generic Name Dose Route Start Last Admin Trade Name Freq PRN Reason Stop Dose Admin Acetaminophen 1,000 mg 05/17/19 22:00 05/18/19 13:53 Tylenol PO 1,000 mg Q8 KIM Administration Albuterol Sulfate 1 puff 05/17/19 14:22 Ventolin Hfa (Sp) INHALATION Q4H PRN PRN WHEEZING Bisacodyl 10 mg 05/17/19 14:19 Dulcolax RECTAL DAILY PRN Constipation Enoxaparin Sodium 30 mg 05/18/19 06:00 05/18/19 04:29 Lovenox SC 30 mg DAILY@0600 KIM Administration Famotidine 40 mg 05/18/19 06:00 05/18/19 04:25 Pepcid PO 40 mg DAILY KIM Administration Flecainide Acetate 150 mg 05/17/19 18:00 05/18/19 04:25 Tambocor PO 150 mg BID KIM Administration Fluticasone Propionate 1 spray 05/18/19 06:00 05/18/19 04:24 Flonase Nasal [place] NASAL 1 spray DAILY KIM Administration Furosemide 40 mg 05/17/19 18:00 05/18/19 09:14 Lasix PO 40 mg BID@1000,1800 KIM Administration Guaifenesin 1,200 mg 05/17/19 18:00 05/18/19 04:25 Mucinex PO 1,200 mg BID KIM Administration Lidocaine 1 patch 05/17/19 14:22 Lidoderm Patch TOPICAL DAILY PRN PAIN Protocol Metoprolol Tartrate 25 mg 05/17/19 18:00 05/18/19 04:25 Lopressor (Beta Katerine) PO 25 mg BID KIM Administration Oxycodone HCl 5 mg 05/17/19 22:24 05/18/19 09:13 Oxyir PO 5 mg Q6H PRN PRN Administration MODERATE PAIN (4-5/10) Polyethylene Glycol 17 gm 05/18/19 06:00 05/18/19 04:29 Miralax PO 17 gm DAILY KIM Administration Potassium Chloride 20 meq 05/18/19 06:00 05/18/19 04:25 K-Dur PO 20 meq DAILY KIM Administration Senna/Docusate Sodium 2 tablet 05/18/19 06:00 05/18/19 04:29 Senokot-S, Yamilex-Colace PO 2 tablet BID KIM Administration Sodium Chloride 10 - 40 ml 05/17/19 15:55 IV UD PRN SALINE FLUSH Tuberculin PPD 5 tu 05/25/19 10:00 Tubersol, Aplisol, Ppd ID 05/25/19 10:01 X1 ONE Venlafaxine HCl 75 mg 05/17/19 22:00 05/17/19 19:46 Effexor Xr PO 75 mg QHS KIM Administration Venlafaxine HCl 150 mg 05/18/19 06:00 05/18/19 04:25 Effexor Xr PO 150 mg DAILY KIM Administration Problem List (Last Reviewed 05/13/19 @ 17:13 by Jacob Duggan DO) Hyperkalemia (Acute) Sleep apnea (Chronic) Atrial fibrillation (Chronic) Acute on chronic diastolic heart failure (Acute) Vitamin D deficiency (Chronic) Allergic rhinitis (Chronic) Restless leg syndrome (Chronic) Vital Signs Temp Pulse Resp BP Pulse Ox 98.4 F 68 18 121/82 H 92 05/17/19 15:27 05/18/19 04:25 05/17/19 15:27 05/18/19 04:25 05/18/19 07:27 Oxygen Flow Rate (L/min) 5 Oxygen Delivery Method Nasal Cannula Weight: 107.4 kg Body Mass Index (BMI) 38.2 Sodium 139 mmol/L (136-145) 05/18/19 05:33 Potassium 3.7 mmol/L (3.5-5.1) 05/18/19 05:33 Chloride 96 mmol/L (98-107) L 05/18/19 05:33 Carbon Dioxide 36.0 mmol/L (21.0-32.0) H 05/18/19 05:33 Anion Gap 7 (5-15) 05/18/19 05:33 BUN 45 mg/dL (7-18) H 05/18/19 05:33 Creatinine 1.58 mg/dL (0.55-1.02) H 05/18/19 05:33 Est GFR (MDRD) Af Amer 42 mL/min (>60) L 05/18/19 05:33 Est GFR (MDRD) Non-Af 35 mL/min (>60) L 05/18/19 05:33 BUN/Creatinine Ratio 28.5 RATIO (10-20) H 05/18/19 05:33 Glucose 78 mg/dL (74-106) 05/18/19 05:33 Assessment/Plan: 1. Pain: Tylenol 1000mg PO Q8h, Oxycodone 5mg PO Q6h PRN moderate pain (4-5/10), Lidocaine Patch 1 patch topically daily PRN Pain. Please continue to monitor for signs/symptoms of increased or decreased pain *2. GERD: Famotidine 40mg PO daily. Please consider decreasing famotidine dose to 20mg since CrCl <50mL/min 3. DVT Prophylaxis: Enoxaparin 30mg SC Daily. Please continue to monitor renal function, H/H, and for signs and symptoms of bleeding 4. COPD: Albuterol MDI 1puff INH Q4h PRN wheezing. Please continue to monitor for signs/symptoms of COPD exacerbation, increased SOB *5. Atrial fibrillation: Flecainide 150mg PO BID, Metoprolol tartrate 25mg PO BID. Please consider assessing this patient for anticoagulation and start if appropriate 6. Diastolic CHF: Metoprolol tartrate 25mg PO BID, Furosemide 40mg PO BID. Please continue to monitor for signs/symptoms of CHF exacerbation, BP, and electrolytes 7. Allergic Rhinitis: Flonase 1 spray nasally daily. Please continue to monitor for increased or decreased symptoms 8. Congestion: Mucinex 1200mg PO BID. Please continue to monitor for increased/decreased symptoms 9. Hypokalemia: KCL 20mEq PO daily. last potassium level 05/18 = 3.7. Please continue to monitor potassium levels and for S/S of hyperkalemia. Psychotropic Medications: *1. Depression: Venlafaxine 150mg PO QAM and 75mg PO QPM. Please consider a GDR by 11/2019 if clinically appropriate *2. Insomnia: Melatonin 10mg PO QHS. Please consider a GDR by 11/2019 if clinically appropriate Unnecessary Medications: none Bowel Regimen: Miralax 17g PO daily, Senna/docusate 2T PO BID, Bisacodyl 10mg Rectal daily PRN. Please continue to monitor for increased or decreased bowel movements or diarrhea. Date of Note:: 05/18/19 - Provider Comments Provider responsibility: Provider responsible to enter orders to implement recommendations <Darinel Callejas Chi - Last Filed: 05/18/19 21:04> Progress Note - Pharmacy Subjective: [] Objective: Allergies doxycycline Allergy (Severe, Verified 05/13/19 14:27) ulcerations of lips and mouth gabapentin Adverse Reaction (Severe, Verified 05/13/19 14:27) GI upset, Vomiting ciprofloxacin [From Cipro] Adverse Reaction (Intermediate, Verified 05/13/19 14:27) Other messes with her heart medicine Current Medications Generic Name Dose Route Start Last Admin Trade Name Freq PRN Reason Stop Dose Admin Acetaminophen 1,000 mg 05/17/19 22:00 05/18/19 20:08 Tylenol PO 1,000 mg Q8 KIM Administration Albuterol Sulfate 1 puff 05/17/19 14:22 Ventolin Hfa (Sp) INHALATION Q4H PRN PRN WHEEZING Alprazolam 1 mg 05/18/19 14:44 05/18/19 15:00 Xanax PO 1 mg TID PRN Administration ANXIETY Bisacodyl 10 mg 05/17/19 14:19 05/18/19 20:11 Dulcolax RECTAL 10 mg DAILY PRN Administration Constipation Enoxaparin Sodium 30 mg 05/18/19 06:00 05/18/19 04:29 Lovenox SC 30 mg DAILY@0600 KIM Administration Famotidine 40 mg 05/18/19 06:00 05/18/19 04:25 Pepcid PO 40 mg DAILY KIM Administration Flecainide Acetate 150 mg 05/17/19 18:00 05/18/19 17:26 Tambocor PO 150 mg BID KIM Administration Fluticasone Propionate 1 spray 05/18/19 06:00 05/18/19 04:24 Flonase Nasal [place] NASAL 1 spray DAILY KIM Administration Furosemide 40 mg 05/17/19 18:00 05/18/19 17:25 Lasix PO 40 mg BID@1000,1800 KIM Administration Guaifenesin 1,200 mg 05/17/19 18:00 05/18/19 17:25 Mucinex PO 1,200 mg BID KIM Administration Lidocaine 1 patch 05/17/19 14:22 Lidoderm Patch TOPICAL DAILY PRN PAIN Protocol Melatonin 10 mg 05/18/19 22:00 05/18/19 20:09 Melatonin PO 10 mg QHS KIM Administration Metoprolol Tartrate 25 mg 05/17/19 18:00 05/18/19 17:26 Lopressor (Beta Katerine) PO 25 mg BID KIM Administration Oxycodone HCl 5 mg 05/17/19 22:24 05/18/19 17:23 Oxyir PO 5 mg Q6H PRN PRN Administration MODERATE PAIN (4-5/10) Polyethylene Glycol 17 gm 05/18/19 06:00 05/18/19 04:29 Miralax PO 17 gm DAILY KIM Administration Potassium Chloride 20 meq 05/18/19 06:00 05/18/19 04:25 K-Dur PO 20 meq DAILY KIM Administration Senna/Docusate Sodium 2 tablet 05/18/19 06:00 05/18/19 17:26 Senokot-S, Yamilex-Colace PO 2 tablet BID KIM Administration Sodium Chloride 10 - 40 ml 05/17/19 15:55 IV UD PRN SALINE FLUSH Tuberculin PPD 5 tu 05/25/19 10:00 Tubersol, Aplisol, Ppd ID 05/25/19 10:01 X1 ONE Venlafaxine HCl 75 mg 05/17/19 22:00 05/18/19 20:09 Effexor Xr PO 75 mg QHS KIM Administration Venlafaxine HCl 150 mg 05/18/19 06:00 05/18/19 04:25 Effexor Xr PO 150 mg DAILY KIM Administration Problem List (Last Reviewed 05/13/19 @ 17:13 by Jacob Duggan DO) Hyperkalemia (Acute) Sleep apnea (Chronic) Atrial fibrillation (Chronic) Acute on chronic diastolic heart failure (Acute) Vitamin D deficiency (Chronic) Allergic rhinitis (Chronic) Restless leg syndrome (Chronic) Vital Signs Temp Pulse Resp BP Pulse Ox 97.7 F L 75 18 120/75 91 05/18/19 16:00 05/18/19 17:26 05/18/19 16:00 05/18/19 17:26 05/18/19 16:00 Oxygen Flow Rate (L/min) 4 Oxygen Delivery Method Nasal Cannula Weight: 107.4 kg Body Mass Index (BMI) 38.2 Sodium 139 mmol/L (136-145) 05/18/19 05:33 Potassium 3.7 mmol/L (3.5-5.1) 05/18/19 05:33 Chloride 96 mmol/L (98-107) L 05/18/19 05:33 Carbon Dioxide 36.0 mmol/L (21.0-32.0) H 05/18/19 05:33 Anion Gap 7 (5-15) 05/18/19 05:33 BUN 45 mg/dL (7-18) H 05/18/19 05:33 Creatinine 1.58 mg/dL (0.55-1.02) H 05/18/19 05:33 Est GFR (MDRD) Af Amer 42 mL/min (>60) L 05/18/19 05:33 Est GFR (MDRD) Non-Af 35 mL/min (>60) L 05/18/19 05:33 BUN/Creatinine Ratio 28.5 RATIO (10-20) H 05/18/19 05:33 Glucose 78 mg/dL (74-106) 05/18/19 05:33 Assessment/Plan: Psychotropic Medications: Unnecessary Medications: Bowel Regimen: - Provider Comments Provider responsibility: Provider responsible to enter orders to implement recommendations Provider Comments to Recommendations by Pharmacy: Agree
[2019-05-18] MEDS: ALPRAZolam 0.5 MG Tablet 1 MG PO (15:00)
--- NOTE | 2019-05-18 15:05 | NURSING ---
dr morales just in and pt called rn in and was crying and visibly upset. upon talking with pt stated, i have so many worries. i worry about my property, my money, my girls and here i am in here not helping anything. and my sister called and she doesnt have the money to come see me. i need to get myself together! i dont want my kids seeing my like this! emotional support given. new order for rohan chawla per dr. morales. ray in to talk with pt and offer assistance.
[2019-05-18 16:00] VITALS: BP 120/75; PULSE 75; RESP 18; TEMP 36.5; O2SAT 91
--- NOTE | 2019-05-18 16:26 | NURSING ---
pt in bed and keeps taking o2 off. spo2 82% on ra. stated, im fine if its off for a minute. pt reiterated the importance of keeping o2 d/t hypoxia.
--- NOTE | 2019-05-18 16:57 | CHAPLAIN ---
Type of Pastoral Visit _x__ Initial Visit ___ Follow-up Visit ___ On-call Visit ___ General Patient Visit ___ Spiritual Assessment ___ Family Conference ___ Bereavement ___ Rapid Response ___ Code Blue ___ Other (describe below) Pastoral Care Referral From _x__ Patient ___ Family _x__ Nurse ___ Physician ___ Stripper Apprentice ___ Surface Boss ___ Other (describe below) Sacrament/Intervention _x__ Active listening ___ Anointing ___ Methodist ___ Bereavement ___ Communion _x__ Diane exploration ___ _x__ Life review _x__ Prayer ___ Reconciliation ___ Sacrament of Sick _x__ Supportive presence ___ Wedding ___ Other (describe below) Pastoral Comments this patient was seen on a previous admission to TCU; pt was on referral list but RN also notified this taxation economist about need for this patient to talk and receive support; pt is willing to talk and is open about struggles; pt has many questions related to her spiritual and emotional and relational issues; longer conversation which ended in more positive tone from patient
[2019-05-18 17:26] VITALS: BP 120/75; PULSE 75
[2019-05-18] MEDS: MELATONIN 10 MG TABLET PO (20:09)
[2019-05-18] MEDS: Venlafaxine XR 75 MG Capsule PO (20:09)
[2019-05-18] MEDS: Bisacodyl 10 MG Suppository RECTAL (20:11)
--- NOTE | 2019-05-18 21:39 | NURSING ---
Dr Callejas aware pt c/o upset stomach. LBM 05/12 abd firm. N.O. mag citrate and SSE if mag citrate is not effective. Will continue to monitor and asses.
[2019-05-18] MEDS: Magnesium Citrate 300 ML PO (21:48)
[2019-05-19] MEDS: Acetaminophen 500 MG Tablet 1000 MG PO ×3 (05:03→20:55)
[2019-05-19] MEDS: Senna/Docusate Sodium 1 Tablet 2 TABLET PO ×2 (05:03→17:57)
[2019-05-19] MEDS: Venlafaxine XR 150 MG Capsule PO (05:04)
[2019-05-19 05:06] VITALS: BP 122/65; PULSE 67
[2019-05-19] MEDS: Enoxaparin 30 MG/0.3 ML Syringe SC (05:06)
[2019-05-19] MEDS: Metoprolol Tartrate 25 MG Tablet PO ×2 (05:06→17:58)
[2019-05-19] MEDS: Polyethylene Glycol 3350 17 GM PACKET PO (05:07)
[2019-05-19] MEDS: Famotidine 20 MG Tablet PO (05:08)
[2019-05-19] MEDS: Flecainide 150 MG Tablet PO ×2 (05:08→17:58)
[2019-05-19] MEDS: guaiFENesin 1,200 MG Tablet 1200 MG PO ×2 (05:08→17:58)
[2019-05-19 08:00] VITALS: O2SAT 91
[2019-05-19] MEDS: Furosemide 40 MG Tablet PO ×2 (09:16→17:57)
[2019-05-19] MEDS: oxyCODONE 5 MG Tablet PO (13:02)
[2019-05-19 14:36] VITALS: O2SAT 95
[2019-05-19] MEDS: ALPRAZolam 0.5 MG Tablet 1 MG PO (15:34)
[2019-05-19 16:00] VITALS: BP 113/77; PULSE 65; RESP 20; TEMP 36.4; O2SAT 96
[2019-05-19 17:58] VITALS: BP 113/77; PULSE 65
[2019-05-19] MEDS: Venlafaxine XR 75 MG Capsule PO (20:56)
[2019-05-19] MEDS: MELATONIN 10 MG TABLET PO (20:56)
[2019-05-20] MEDS: oxyCODONE 5 MG Tablet PO ×3 (00:27→20:48)
[2019-05-20] MEDS: ALPRAZolam 0.5 MG Tablet 1 MG PO ×3 (00:28→20:46)
[2019-05-20] MEDS: Fluticasone 0.05% 1 SPRAY NASAL.SRY NASAL (05:54)
[2019-05-20 05:55] VITALS: BP 112/63; PULSE 101
[2019-05-20] MEDS: Metoprolol Tartrate 25 MG Tablet PO ×2 (05:55→17:23)
[2019-05-20] MEDS: Acetaminophen 500 MG Tablet 1000 MG PO ×3 (05:55→20:46)
[2019-05-20] MEDS: Flecainide 150 MG Tablet PO ×2 (05:56→17:23)
[2019-05-20] MEDS: Senna/Docusate Sodium 1 Tablet 2 TABLET PO ×2 (05:56→17:23)
[2019-05-20] MEDS: Venlafaxine XR 150 MG Capsule PO (05:56)
[2019-05-20] MEDS: Famotidine 20 MG Tablet PO (05:56)
[2019-05-20] MEDS: guaiFENesin 1,200 MG Tablet 1200 MG PO ×2 (05:57→17:23)
[2019-05-20] MEDS: Enoxaparin 30 MG/0.3 ML Syringe SC (05:57)
[2019-05-20 08:48] VITALS: O2SAT 90
[2019-05-20] MEDS: Furosemide 40 MG Tablet PO ×2 (09:33→17:23)
[2019-05-20 16:00] VITALS: BP 119/63; PULSE 70; RESP 18; TEMP 36.8; O2SAT 97
[2019-05-20 17:23] VITALS: BP 119/63; PULSE 70
[2019-05-20] MEDS: Venlafaxine XR 75 MG Capsule PO (20:49)
[2019-05-20] MEDS: MELATONIN 10 MG TABLET PO (20:49)
[2019-05-21] MEDS: oxyCODONE 5 MG Tablet PO ×3 (03:02→17:51)
[2019-05-21] MEDS: Senna/Docusate Sodium 1 Tablet 2 TABLET PO ×2 (03:53→17:53)
[2019-05-21] MEDS: guaiFENesin 1,200 MG Tablet 1200 MG PO ×2 (03:53→17:52)
[2019-05-21] MEDS: Enoxaparin 30 MG/0.3 ML Syringe SC (03:53)
[2019-05-21] MEDS: Fluticasone 0.05% 1 SPRAY NASAL.SRY NASAL (03:53)
[2019-05-21] MEDS: Acetaminophen 500 MG Tablet 1000 MG PO ×3 (03:54→21:23)
[2019-05-21 03:55] VITALS: BP 105/73; PULSE 62
[2019-05-21] MEDS: Famotidine 20 MG Tablet PO (03:55)
[2019-05-21] MEDS: Metoprolol Tartrate 25 MG Tablet PO ×2 (03:55→17:52)
[2019-05-21] MEDS: Flecainide 150 MG Tablet PO ×2 (03:55→17:52)
[2019-05-21] MEDS: Polyethylene Glycol 3350 17 GM PACKET PO (03:55)
[2019-05-21] MEDS: Venlafaxine XR 150 MG Capsule PO (03:56)
[2019-05-21] MEDS: Furosemide 40 MG Tablet PO ×2 (11:30→17:52)
[2019-05-21 16:00] VITALS: BP 122/34; PULSE 62; RESP 20; TEMP 36.8; O2SAT 96
[2019-05-21 16:02] VITALS: O2SAT 97
[2019-05-21 17:52] VITALS: BP 122/34; PULSE 62
[2019-05-21] MEDS: ALPRAZolam 0.5 MG Tablet 1 MG PO (21:22)
[2019-05-21] MEDS: MELATONIN 10 MG TABLET PO (21:23)
[2019-05-21] MEDS: Venlafaxine XR 75 MG Capsule PO (21:25)
--- NOTE | 2019-05-22 00:28 | NURSING ---
Addendum entered by Clair Rubi 05/22/19 00:39: hi/low entered in error, regular bed in low position Original Note: 05/21/191999- assisted pt to RR with 1 assist/cane. family member at bedside. pt upset with diet order and states she will eat whatever I want. states she had potato chips earlier today that family brought in. reinforced diet order and educated on rationale for orders. pt also reminded of upcoming barium swallow test. pt states she does not want to have this testing done, but after further discussion/explanation states maybe. pt has been compliant with call light use. bed alarm on and hi/low bed in low position.
[2019-05-22] MEDS: guaiFENesin 1,200 MG Tablet 1200 MG PO ×2 (05:45→17:46)
[2019-05-22] MEDS: Acetaminophen 500 MG Tablet 1000 MG PO ×3 (05:45→21:08)
[2019-05-22] MEDS: Famotidine 20 MG Tablet PO (05:45)
[2019-05-22] MEDS: Venlafaxine XR 150 MG Capsule PO (05:45)
[2019-05-22] MEDS: Enoxaparin 30 MG/0.3 ML Syringe SC (05:45)
[2019-05-22] MEDS: Polyethylene Glycol 3350 17 GM PACKET PO (05:46)
[2019-05-22] MEDS: Senna/Docusate Sodium 1 Tablet 2 TABLET PO ×2 (05:46→17:46)
[2019-05-22] MEDS: Flecainide 150 MG Tablet PO ×2 (05:46→17:47)
[2019-05-22] MEDS: Fluticasone 0.05% 1 SPRAY NASAL.SRY NASAL (05:47)
[2019-05-22 05:50] VITALS: BP 96/52; PULSE 58; O2SAT 95
[2019-05-22] MEDS: oxyCODONE 5 MG Tablet PO ×3 (06:34→21:08)
--- NOTE | 2019-05-22 08:07 | RAD_ITS ---
STUDY: X-RAY CHEST REASON FOR EXAM: Female, 68 years old. Cough. TECHNIQUE: PA and lateral views of the chest. COMPARISON: Comparison is made with prior study dated March 07, 2018. FINDINGS: Since prior study, there has been a progression of the increased markings at the lung bases worse at the left lung base. This may represent atelectasis and/or infiltrate superimposed on scarring. Blunting of both costophrenic angles. There is borderline cardiomegaly. Normal mediastinum and leonid. Normal visualized pulmonary arteries. There is atherosclerotic calcification of the aortic arch with tortuosity. There are diffuse degenerative changes of the visualized thoracic spine. There is degenerative osteoarthritis of the bilateral shoulders. Large hiatal hernia. RAD/Chest PA and Lateral IMPRESSION: Since prior study, there has been progressive increased markings at the lung bases suggestive of atelectasis and/or early infiltrate superimposed on chronic scarring. Electronically Signed: Ivan Arce, at 13:51 EDT , Service support ,
[2019-05-22 09:15] VITALS: BP 115/66; PULSE 72
[2019-05-22] MEDS: Metoprolol Tartrate 25 MG Tablet PO ×2 (09:15→17:45)
[2019-05-22] MEDS: Furosemide 40 MG Tablet PO ×2 (09:15→17:46)
--- NOTE | 2019-05-22 10:00 | RAD_ITS ---
STUDY: SWALLOWING STUDY REASON FOR EXAM: Female, 68 years old. Dysphagia. TECHNIQUE: The examination was performed with Speech Pathology in attendance. Under fluoroscopic observation, the patient ingested thin barium, thick barium, barium pudding, and barium coated cracker. FLUOROSCOPY TIME: 2:15 minutes/seconds. 1973 fluoroscopic images were obtained. RADIOLOGIST INVOLVEMENT: Radiologist was present and providing direct supervision. COMPARISON: None. FINDINGS: The following was observed during swallowing of the various mixtures of barium: Thin Barium: Transient penetration with ingestion of thin liquids. Thick Barium: Transient penetration with ingestion of nectar thickened liquids. Tiny thickened liquids are unremarkable. Barium Pudding: There was no evidence of aspiration or laryngeal penetration. Barium Coated Cracker: There was no evidence of aspiration or laryngeal penetration. RAD/Swallowing Function w/Video IMPRESSION: Transient penetration with ingestion of thin liquids and nectar thickened liquids. The swallow study findings were discussed with the patient by the speech pathologist at the conclusion of the examination. Please see speech pathology report for more information and recommendations. Electronically Signed: Ivan Arce, at 13:05 EDT , Service support ,
--- NOTE | 2019-05-22 10:02 | NURSING ---
pt going down to radiology for cookie swallow at this time via WC
--- NOTE | 2019-05-22 10:03 | SP.MBSS_ITS ---
PRIMARY / SECONDARY DIAGNOSIS: Dysphagia (R13.12) REFERRING PHYSICIAN: Dr. Callejas CURRENT DIET: Mechanical Soft/Thin DENTITION: upper/lower dentures, poorly fitting, does not use adhesive MENTAL STATUS: WFL for participation in MBS RESPIRATORY STATUS: 4L/min O2 via nasal cannula, lung sounds clear per most recent nursing assessment 05/21/2019 at 1309 PREVIOUS MODIFIED BARIUM SWALLOW STUDY: 02/17/2018 MBR revealed mild to moderate oropharyngeal dysphagia (R13.12), mechanical soft/thin liquid diet recommended w/ the following compensatory strategies - distant supervision, chin tuck, reduced bolus volume, consider straws with all liquids, seated upright at 90 degrees during PO intake, remain upright for 30-60 minutes post meal (GERD precaution) REASON FOR REFERRAL: Further assessment of swallow function under fluoroscopy recommended following evaluation at bedside d/t suspected pharyngeal swallow dysfunction w/ concern for silent aspiration and potential esophageal dysphagia component d/t bedside findings, recent respiratory issued and symptoms reported by patient MEDICAL HISTORY: Sleep apnea, Atrial fibrillation, Vitamin D deficiency, Allergic rhinitis, Restless leg syndrome, Cardiomyopathy, dilated, ESPERANZA (obstructive sleep apnea), Chronic respiratory failure with hypoxia, Anxiety, Depression, Osteoarthritis, Pulmonary nodules, Left ventricular hypertrophy, Back pain, Super obesity, GERD (gastroesophageal reflux disease), Shortness of breath, Non-sustained ventricular tachycardia, Dysmetabolic syndrome, Hypertension, 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, emt intermediate current use of antiarrhythmic medical therapy, Paroxysmal atrial fibrillation, Asthma, and COPD (chronic obstructive pulmonary disease) who was hospitalized for shortness of breath secondary to COPD exacerbation, acute on chronic diastolic congestive heart failure, complicated by acute kidney injury, hyperkalemia STUDY FINDINGS: Patient participated in a Modified Barium Swallow (MBS) study on 05/22/2019. Dr. Arce was the radiologist present for this evaluation. This study was recorded in the lateral view and images were sent to PACs for storage. The following consistencies were presented to this patient for analysis of oropharyngeal swallow function: thin liquid, nectar thickened liquid, honey thickened liquid, pudding and a shortbread cookie. Results of the MBS are as follows: PENETRATION / ASPIRATION SCALE (MARINELLI): 1 = does not enter airway 2 = enters airway/above vocal folds/ejected 3 = enters airway/above vocal folds/not ejected 4 = enters airway/contacts vocal folds/ejected 5 = enters airway/contacts vocal folds/not ejected 6 = enters airway/below vocal folds/ejected 7 = enters airway/below vocal folds/not ejected despite effort 8 = enters airway/below vocal folds/no effort PENETRATION / ASPIRATION SCALE (SCORE): 1. Thin liquid 5mL teaspoon: 2 2. Thin liquid 5mL teaspoon: 2 3. Thin liquid single sip via cup: 6 trace contrast below the vocal folds during the swallow, ejected from below the vocal folds but contrast remained in the laryngeal vestibule post deglutition 4. Thin liquid single sip via cup: 5 5. Thin liquid single sip via cup w/ chin tuck: 5 view complicated by body habitus 6. Thin liquid single sip via cup w/ chin tuck: 5 poor execution, significantly increased degree of penetration 7. Thin liquid single sip via cup w/ chin tuck: 5 8. Puddin visible contrast atop the vocal folds d/t accumulated penetration from prior thin liquids trials; cued cough and reswallow effective to eject contrast from the laryngeal vestibule 9. Puddin 10. Cookie: 1 11. Thin liquid single sip via straw: 5 *trace contrast retention lining laryngeal vestibule 12. Thin liquid single sip via straw w/ chin tuck: 5 *significant increase in degree of penetration and contrast retention post deglutition 13. [place] thickened liquid via straw: 5 14. Honey thickened liquid via straw: 1 15. Thin liquid sequential swallows via straw: 8 *contrast undercoated vocal folds and was not ejected, silent aspiration w/ to coughing or throat clearing response to aspiration evident IMPRESSION ORAL PHASE CHARACTERIZED BY: LABIAL SEAL: could not view d/t poor fluoro positioning TONGUE CONTROL DURING BOLUS MANIPULATION: cohesive bolus between tongue to palatal seal BOLUS PREPARATION / MASTICATION: could not view d/t poorfluoro positioning, prolonged duration noted BOLUS TRANSPORT / LINGUAL MOTION: brisk tongue motion ORAL RESIDUE: residue collection on oral structures, base of tongue PHARYNGEAL PHASE CHARACTERIZED BY: INITIATION OF PHARYNGEAL SWALLOW: bolus head in pyriforms at first hyoid excursion SOFT PALATE ELEVATION: no bolus between soft palate and pharyngeal wall LARYNGEAL ELEVATION: partial superior movement of thyroid cartilage/partial approximation of arytenoids cartilage to epiglottic petiole ANTERIOR HYOID EXCURSION: partial anterior movement EPIGLOTTIC MOVEMENT: complete epiglottic inversion LARYNGEAL VESTIBULE CLOSURE AT HEIGHT OF SWALLOW: incomplete laryngeal vestibule closure with narrow column of air/contrast in laryngeal vestibule PHARYNGEAL STRIPPING WAVE: pharyngeal stripping wave present / complete PHARYNGOESOPHAGEAL SEGMENT OPENING: complete distension and complete duration with no obstruction of flow TONGUE BASE RETRACTION: narrow column of contrast between tongue base and posterior pharyngeal wall PHARYNGEAL RESIDUE: trace residue within or on pharyngeal structures ESOPHAGEAL PHASE CHARACTERIZED BY: ESOPHAGEAL BOLUS CLEARANCE IN THE UPRIGHT POSITION: complete clearance; esophageal coating; esophageal web evident on the anterior esophageal wall opposite the cricopharyngeus EFFECTS OF TREATMENT STRATEGIES ATTEMPTED: CHIN TUCK POSTURE = not effective COUGH AND RESWALLOW = effective SUPRAGLOTTIC SWALLOW = unable to attempt d/t difficulty w/ comprehension or multiple/sequential steps, evidenced by inconsistent ability to effectively sequence steps to employ chin tuck posture under fluoroscopy REDUCED RATE OF INTAKE = moderately effective USE OF STRAW = moderately effective INTERPRETATION OF RESULTS Patient presents with moderate oropharyngeal dysphagia (R13.12) likely secondary to chronic obstructive pulmonary disease. The oral phase was primarily marked by prolonged mastication time. Unable to sufficiently view the oral phase due to poor fluoro placement for further assessment. Pt noted to have very loose/poorly fitting dentures w/ suspected impact on mastication efficiency. A collection of residue remained on the tongue base following solid texture trial d/t reduced tongue base retraction. The pharyngeal phase is primarily marked by delayed pharyngeal swallow onset timing resulting in suboptimal bolus location upon swallow onset contributing to pre-prandial penetration of thin and nectar thickened liquids, as well as prandial silent aspiration of thin liquids. Aspiration was of a trace amount which undercoated the vocal folds and was not ejected. The patient demonstrated no overt/outward response to aspiration. Poor airway protection further attributed to poor anterior hyoid excursion which precluded sufficient reduced closure of the airway during deglutition. Despite a mild reduction in tongue base retraction and pharyngeal contraction, sufficient pressure for PES opening and pharyngeal clearance was achieved. The esophageal phase was marked by a notable esophageal web evident on the anterior esophageal wall opposite the cricopharyngeus. This webbing did not impact swallow function or esophageal clearance under fluoroscopy, but should be noted due to the patient?s report of frequent choking on solids, reporting that they won't go up or down which could be attributed to esophageal webbing w/ resultant esophageal retention. Use of a straw w/ reduction in bolus volume was effective to reduce but not eliminate laryngeal vestibule penetration w/ thin liquids. A cued cough and rewallow following liquid intake was effective to eject contrast from the laryngeal vestibule. Patient noted to SILENTLY aspirate with thin liquids as contrast accumulated w/in the laryngeal vestibule, with clinical assessment at bedside relying on identification of classic overt signs and symptoms of aspiration unreliable. RECOMMENDATIONS DIET TEXTURE RECOMMENDATIONS: Will recommend a mechanical soft texture/thin liquid diet. COMPENSATORY STRATEGIES RECOMMENDED: Direct supervision w/ verbal cues to ensure use of the following strategies - reduced bolus volume (small sips, one sip at a time), sips via straw, intentional cough and reswallow following every sip of liquid, reduced rate of intake, seated upright at 90 degrees during PO intake, remain upright for 30-60 minutes post meal (GERD precaution) NEED FOR REPEAT MBS: A repeat MBS is recommended prior to discontinuation of the above listed compensatory strategies, specifically cough and reswallow following each sip of liquid. NEED FOR SKILLED SPEECH-LANGUAGE INTERVENTION TARGETING DYSPHAGIA: Patient requires intensive skilled speech-language intervention targeting continued diet texture management, training and implementation of recommended compensatory strategies, instruction w/ oropharyngeal strengthening exercises to facilitate improved swallow onset timing and laryngeal vestibule closure/pressure. Patient would benefit from additional education regarding dysphagia associated with chronic obstructive pulmonary disease. Repeat MBS should be completed prior to eliminating compensatory strategies d/t known silent aspiration. TREATMENT CONSIDERATIONS: If the patient is unable to consistently implement the recommended compensatory strategies, downgrade to honey thickened liquids should be considered and discussed w/ the patient to reduce the high likelihood of chronic aspiration. The Patient has demonstrated mild difficulty following multi step/sequential directions, as evidenced by inconsistent ability to effectively sequence steps to take a sip, hold bolus in mouth, employ chin tuck posture, then swallow. under fluoroscopy. Consider instruction w/ a supraglottic swallow during treatment as this would likely be an effective compensatory strategy to reduce penetration/aspiration IF able to comprehend and effectively employ the required sequence. REFERRALS: If esophageal swallow function/bolus clearance worsens d/t noted esophageal web, consider referral to Gastroenterology for further assessment. ADDITIONAL COMMENTS/RECOMMENDATIONS: Results and recommendations were discussed with the Patient immediately following MBS completion. Images were reviewed to improve patient comprehension of the deficits identified, need for use of compensatory strategies and benefit from initiating skilled speech-language intervention targeting oropharyngeal dysphagia. Extended time spent providing education immediately following MBS and again at the patient?s bedside during noon meal to ensure comprehension and effective use of the recommended aspiration precautions. IMAGE COUNT: [id number]
[2019-05-22 15:20] VITALS: BP 105/58; PULSE 60; RESP 18; TEMP 36; O2SAT 98
--- NOTE | 2019-05-22 17:28 | NURSING ---
dr morales reviewed cxr, new order Augmentin for poss infiltrate, worse compared to last xray in March
[2019-05-22 17:45] VITALS: PULSE 76
[2019-05-22] MEDS: Amox/Clavulanate 875 MG Tablet PO (18:09)
[2019-05-22] MEDS: ALPRAZolam 0.5 MG Tablet 1 MG PO (19:52)
[2019-05-22] MEDS: MELATONIN 10 MG TABLET PO (21:07)
[2019-05-22] MEDS: Venlafaxine XR 75 MG Capsule PO (21:09)
[2019-05-23] MEDS: oxyCODONE 5 MG Tablet PO ×4 (03:08→21:50)
[2019-05-23] MEDS: Fluticasone 0.05% 1 SPRAY NASAL.SRY NASAL (04:55)
[2019-05-23] MEDS: Senna/Docusate Sodium 1 Tablet 2 TABLET PO ×2 (04:56→17:27)
[2019-05-23] MEDS: Famotidine 20 MG Tablet PO (04:59)
[2019-05-23] MEDS: Polyethylene Glycol 3350 17 GM PACKET PO (04:59)
[2019-05-23 05:00] VITALS: BP 133/73; PULSE 63
[2019-05-23] MEDS: Venlafaxine XR 150 MG Capsule PO (05:00)
[2019-05-23] MEDS: Metoprolol Tartrate 25 MG Tablet PO ×2 (05:00→17:27)
[2019-05-23] MEDS: Flecainide 150 MG Tablet PO ×2 (05:00→17:28)
[2019-05-23] MEDS: Acetaminophen 500 MG Tablet 1000 MG PO ×3 (05:00→21:48)
[2019-05-23] MEDS: guaiFENesin 1,200 MG Tablet 1200 MG PO ×2 (05:01→17:27)
[2019-05-23] MEDS: Amox/Clavulanate 875 MG Tablet PO ×2 (05:02→17:28)
[2019-05-23] MEDS: Enoxaparin 30 MG/0.3 ML Syringe SC (05:06)
[2019-05-23 06:30] VITALS: O2SAT 98
[2019-05-23] MEDS: Nystatin Powder 15gm Bottle 1 APPLIC TOPICAL ×2 (06:34→21:54)
[2019-05-23] MEDS: Furosemide 40 MG Tablet PO ×2 (09:28→17:27)
--- NOTE | 2019-05-23 11:15 | CASEMGMT ---
Addendum entered by Jamilah Pérez 05/23/19 14:57: Notified patient insurance approved until NRD 05/28. Original Note: Social Work IDT met with patient, daughter and granddaughter for care plan meeting. Discussed patient's progress in therapy. Pt had MBS yesterday and silently aspirated on thin liquids. Changed diet to honey thickened liquids and mechanical soft texture. Pt is CGA for stand pivot transfers, walking 25 ft with cane, 4 steps, and SBA for all ADLs while seated. Pt is a high fall risk, weakness, poor balance and poor endurance. Pt lives in a mobile home with daughter and granddaughter and space is limited. Therapy is working with safety walking with a cane vs a walker due to space. Explained insurance and update due yesterday - awaiting outcome. Pt is not ready to DC home yet. Will continue to follow for discharge planning. Jamilah Pérez, SHARON [employer] PLANT SUPERVISOR
[2019-05-23 16:00] VITALS: BP 126/72; PULSE 71; RESP 20; TEMP 36.6; O2SAT 91
--- NOTE | 2019-05-23 17:11 | CASEMGMT ---
Insurance: Continued stay reviewed sent through [employer] on 05/22/19. auth # [id number]
[2019-05-23 17:27] VITALS: BP 126/72; PULSE 71
[2019-05-23] MEDS: Venlafaxine XR 75 MG Capsule PO (21:48)
[2019-05-23] MEDS: MELATONIN 10 MG TABLET PO (21:48)
[2019-05-24] MEDS: Famotidine 20 MG Tablet PO (04:48)
[2019-05-24] MEDS: Acetaminophen 500 MG Tablet 1000 MG PO ×3 (04:48→20:59)
[2019-05-24] MEDS: oxyCODONE 5 MG Tablet PO ×2 (04:48→17:53)
[2019-05-24] MEDS: Fluticasone 0.05% 1 SPRAY NASAL.SRY NASAL (04:48)
[2019-05-24] MEDS: Flecainide 150 MG Tablet PO ×2 (04:48→17:52)
[2019-05-24 04:49] VITALS: BP 134/69; PULSE 90
[2019-05-24] MEDS: Amox/Clavulanate 875 MG Tablet PO ×2 (04:49→17:52)
[2019-05-24] MEDS: guaiFENesin 1,200 MG Tablet 1200 MG PO ×2 (04:49→17:52)
[2019-05-24] MEDS: Venlafaxine XR 150 MG Capsule PO (04:49)
[2019-05-24] MEDS: Metoprolol Tartrate 25 MG Tablet PO ×2 (04:49→17:52)
[2019-05-24] MEDS: Nystatin Powder 15gm Bottle 1 APPLIC TOPICAL ×2 (04:51→20:59)
[2019-05-24] MEDS: Enoxaparin 30 MG/0.3 ML Syringe SC (04:52)
[2019-05-24] MEDS: Furosemide 40 MG Tablet PO ×2 (08:39→17:52)
--- NOTE | 2019-05-24 10:30 | NURSING ---
Addendum entered by Lucia Mitchell 05/24/19 12:53: returned from appt w/order to start butrans patch 5 mg q week x4 weeks. Original Note: Taken off unit to appt with Dr Vance. Daughter, Samantha to meet resident in Dr Vance's office for the appointment.
[2019-05-24 15:54] VITALS: BP 128/71; PULSE 77; RESP 18; TEMP 36.7; O2SAT 97
--- NOTE | 2019-05-24 16:24 | CHAPLAIN ---
patient is sleeping and so this health systems analyst did not disturb
[2019-05-24 17:52] VITALS: PULSE 77
[2019-05-24] MEDS: Venlafaxine XR 75 MG Capsule PO (20:59)
[2019-05-24] MEDS: MELATONIN 10 MG TABLET PO (20:59)
[2019-05-24] MEDS: ALPRAZolam 0.5 MG Tablet 1 MG PO (22:38)
[2019-05-25] MEDS: oxyCODONE 5 MG Tablet PO ×3 (02:57→19:49)
[2019-05-25 05:50] LABS: Absolute Neutrophil Count 6.2 X10^3/uL (2.0-7.7); Basophil# 0.08 X10^3/uL; Basophil% 0.8 % (0-1); Eosinophil# 0.37 X10^3/uL; Eosinophils% 3.9 % (0-5); Hematocrit 41.7 % (37-47); Hemoglobin 12.4 g/dL (12.0-15.0); Mean Corp Hgb Conc 29.7 g/dL (32-36); Mean Corpuscular Volume 97.7 fL (81-99); Mean Platelet Vol. 10.2 fl (6.2-12.0); Monocyte# 0.87 X10^3/uL; Monocyte% 9.2 % (0-10); NRBC Flagged by Analyzer 0 % (0-5); Neutrophil # 6.23 X10^3/uL (2.7-7.7); Neutrophil % 65.7 % (47-70); Platelet Count 288 K/mm3 (150-450); RBC Distribution Width CV 13.2 % (11.6-14.6); RBC Distribution Width SD 47.4 fl (35.1-43.9); Red Blood Count 4.27 M/mm3 (4.2-5.4); White Blood Count 9.5 K/mm3 (4.4-11.0)
[2019-05-25 06:11] VITALS: BP 109/45; PULSE 68
[2019-05-25] MEDS: Famotidine 20 MG Tablet PO (06:11)
[2019-05-25] MEDS: Acetaminophen 500 MG Tablet 1000 MG PO ×3 (06:11→19:52)
[2019-05-25] MEDS: Metoprolol Tartrate 25 MG Tablet PO ×2 (06:11→16:46)
[2019-05-25] MEDS: Amox/Clavulanate 875 MG Tablet PO ×2 (06:11→16:46)
[2019-05-25] MEDS: Venlafaxine XR 150 MG Capsule PO (06:11)
[2019-05-25] MEDS: Flecainide 150 MG Tablet PO ×2 (06:11→16:46)
[2019-05-25] MEDS: Enoxaparin 30 MG/0.3 ML Syringe SC (06:15)
[2019-05-25] MEDS: guaiFENesin 1,200 MG Tablet 1200 MG PO ×2 (06:15→16:46)
[2019-05-25] MEDS: Fluticasone 0.05% 1 SPRAY NASAL.SRY NASAL (06:20)
[2019-05-25] MEDS: Nystatin Powder 15gm Bottle 1 APPLIC TOPICAL ×2 (06:20→19:53)
[2019-05-25 07:33] LABS: Anion Gap 3 (5-15); BUN 40 mg/dL (7-18); BUN/Creat Ratio 30.3 RATIO (10-20); Chloride 104 mmol/L (98-107); Creatinine, Serum 1.32 mg/dL (0.55-1.02); EST Glomerular Filtration Rate 42 mL/min (>60); Est Glom Filt Rate - Afr Amer 51 mL/min (>60); Estimated Creatinine Clearance 38.19 ml/min; Glucose 93 mg/dL (74-106); Potassium 3.9 mmol/L (3.5-5.1); Sodium Level 140 mmol/L (136-145)
[2019-05-25] MEDS: Furosemide 40 MG Tablet PO ×2 (08:19→16:46)
--- NOTE | 2019-05-25 08:20 | NURSING ---
pt refusing to eat d/t mech soft diet. pt very frustrated and upset. I ate all my life and they turn around and do this 1:1 support. speech therapy notified.
[2019-05-25] MEDS: Tuberculin,Purif.prot.deriv. 50 TU/ML Vial 5 ML ID (11:22)
[2019-05-25 15:29] VITALS: BP 118/63; PULSE 74; RESP 22; TEMP 36.6; O2SAT 92
[2019-05-25 16:46] VITALS: BP 118/63; PULSE 74
[2019-05-25 17:00] VITALS: O2SAT 93
--- NOTE | 2019-05-25 18:23 | NURSING ---
Alarm Emerson foy PCA entered room to find pt ambulating self to BR with cane, no oxygen on, confusion, paranoid behavior. Pt starting swinging cane at STRUCTURAL RIGGER. Pt was upset that she received a salad, ice cream and diet soda on tray. This is what pt had ordered from menu last evening with assist of LILIA Jordan. Pt forgetful and does not remember what she ordered. Explained to pt that we can get her something else to eat from [employer] or a happy meal/tv dinner, but pt declined. states these kids do this on purpose, they set me up 1:1 support, offered anxiety med and pt declined. stated that she would call her daughter to bring in supper. pt assisted back to bed, more calm after oxygen reapplied. alarm in place on bed.
[2019-05-25] MEDS: ALPRAZolam 0.5 MG Tablet 1 MG PO (18:30)
[2019-05-25] MEDS: MELATONIN 10 MG TABLET PO (19:51)
[2019-05-25] MEDS: Venlafaxine XR 75 MG Capsule PO (19:52)
--- NOTE | 2019-05-25 19:55 | NURSING ---
Butrans patch located on the left shoulder.
[2019-05-25] MEDS: Lidocaine 5% Patch 1 PATCH TOPICAL (20:36)
[2019-05-26] MEDS: oxyCODONE 5 MG Tablet PO ×4 (01:57→22:50)
[2019-05-26] MEDS: ALPRAZolam 0.5 MG Tablet 1 MG PO ×2 (01:58→22:40)
[2019-05-26 05:50] VITALS: BP 114/50; PULSE 71
[2019-05-26] MEDS: Metoprolol Tartrate 25 MG Tablet PO ×2 (05:50→16:39)
[2019-05-26] MEDS: Amox/Clavulanate 875 MG Tablet PO ×2 (05:50→16:39)
[2019-05-26] MEDS: guaiFENesin 1,200 MG Tablet 1200 MG PO ×2 (05:51→16:40)
[2019-05-26] MEDS: Venlafaxine XR 150 MG Capsule PO (05:51)
[2019-05-26] MEDS: Senna/Docusate Sodium 1 Tablet 2 TABLET PO ×2 (05:51→16:40)
[2019-05-26] MEDS: Flecainide 150 MG Tablet PO ×2 (05:51→16:38)
[2019-05-26] MEDS: Acetaminophen 500 MG Tablet 1000 MG PO ×3 (05:52→22:40)
[2019-05-26] MEDS: Famotidine 20 MG Tablet PO (05:53)
[2019-05-26] MEDS: Enoxaparin 30 MG/0.3 ML Syringe SC (05:53)
[2019-05-26] MEDS: Fluticasone 0.05% 1 SPRAY NASAL.SRY NASAL (05:54)
[2019-05-26] MEDS: Nystatin Powder 15gm Bottle 1 APPLIC TOPICAL ×2 (05:54→22:59)
[2019-05-26 07:33] VITALS: O2SAT 91
[2019-05-26] MEDS: Furosemide 40 MG Tablet PO ×2 (09:56→16:38)
[2019-05-26] MEDS: Lidocaine 5% Patch 1 PATCH TOPICAL (11:28)
[2019-05-26 15:15] VITALS: BP 111/78; PULSE 66; RESP 16; TEMP 36.6; O2SAT 98
[2019-05-26 16:39] VITALS: BP 111/78; PULSE 66
--- NOTE | 2019-05-26 17:19 | NURSING ---
Patient's sister in room- eating salad left over from patient's lunch dinner tray. This RN noted that pt had Loorna Doone's that she was eating prior to dinner that had not been given by staff. Sister then stated that patient should be having breathing treatments and that she should have the breathing thing with the ball to exercise her lungs. This RN notified patient and sister that orders would be reviewed and then would update as soon as answers were obtained. Both notified that incentive spirometer was not ordered and that patient has order from inhaler only. Understanding verbalized. then states that incentive spirometer should be ordered and this RN notified DARLING Stanton of request.
[2019-05-26] MEDS: Venlafaxine XR 75 MG Capsule PO (22:39)
[2019-05-26] MEDS: MELATONIN 10 MG TABLET PO (22:40)
[2019-05-27] MEDS: Fluticasone 0.05% 1 SPRAY NASAL.SRY NASAL (06:53)
[2019-05-27 06:56] VITALS: BP 148/65; PULSE 87
[2019-05-27] MEDS: Amox/Clavulanate 875 MG Tablet PO ×2 (06:56→16:34)
[2019-05-27] MEDS: Metoprolol Tartrate 25 MG Tablet PO ×2 (06:56→16:34)
[2019-05-27] MEDS: Famotidine 20 MG Tablet PO (06:56)
[2019-05-27] MEDS: Venlafaxine XR 150 MG Capsule PO (06:56)
[2019-05-27] MEDS: Senna/Docusate Sodium 1 Tablet 2 TABLET PO ×2 (06:56→16:35)
[2019-05-27] MEDS: Acetaminophen 500 MG Tablet 1000 MG PO ×3 (06:56→20:53)
[2019-05-27] MEDS: guaiFENesin 1,200 MG Tablet 1200 MG PO ×2 (06:56→16:34)
[2019-05-27] MEDS: Flecainide 150 MG Tablet PO ×2 (06:56→16:35)
[2019-05-27] MEDS: oxyCODONE 5 MG Tablet PO ×3 (06:56→20:53)
[2019-05-27] MEDS: Enoxaparin 30 MG/0.3 ML Syringe SC (06:57)
[2019-05-27] MEDS: Nystatin Powder 15gm Bottle 1 APPLIC TOPICAL ×2 (07:02→20:57)
[2019-05-27 07:30] VITALS: O2SAT 90
[2019-05-27] MEDS: Furosemide 40 MG Tablet PO ×2 (10:51→16:35)
[2019-05-27 15:26] VITALS: BP 118/73; PULSE 71; RESP 18; TEMP 36.5; O2SAT 96
[2019-05-27 16:34] VITALS: BP 118/73; PULSE 71
[2019-05-27] MEDS: ALPRAZolam 0.5 MG Tablet 1 MG PO (18:46)
[2019-05-27] MEDS: MELATONIN 10 MG TABLET PO (20:53)
[2019-05-27] MEDS: Venlafaxine XR 75 MG Capsule PO (20:53)
[2019-05-28 04:00] VITALS: BP 153/91; PULSE 71
[2019-05-28] MEDS: Acetaminophen 500 MG Tablet 1000 MG PO ×3 (04:00→20:28)
[2019-05-28] MEDS: Senna/Docusate Sodium 1 Tablet 2 TABLET PO (04:00)
[2019-05-28] MEDS: Flecainide 150 MG Tablet PO ×2 (04:00→16:48)
[2019-05-28] MEDS: Fluticasone 0.05% 1 SPRAY NASAL.SRY NASAL (04:00)
[2019-05-28] MEDS: Metoprolol Tartrate 25 MG Tablet PO ×2 (04:00→16:48)
[2019-05-28] MEDS: Famotidine 20 MG Tablet PO (04:00)
[2019-05-28] MEDS: oxyCODONE 5 MG Tablet PO ×3 (04:01→20:28)
[2019-05-28] MEDS: guaiFENesin 1,200 MG Tablet 1200 MG PO ×2 (04:01→16:47)
[2019-05-28] MEDS: Enoxaparin 30 MG/0.3 ML Syringe SC (04:01)
[2019-05-28] MEDS: Venlafaxine XR 150 MG Capsule PO (04:01)
[2019-05-28] MEDS: Amox/Clavulanate 875 MG Tablet PO ×2 (04:01→16:49)
[2019-05-28] MEDS: Nystatin Powder 15gm Bottle 1 APPLIC TOPICAL ×2 (04:03→20:30)
[2019-05-28] MEDS: Furosemide 40 MG Tablet PO ×2 (10:06→16:49)
--- NOTE | 2019-05-28 11:28 | CASEMGMT ---
Insurance: Continued stay review sent to MMO through review link. auth # [id number]
[2019-05-28] MEDS: Lidocaine 5% Patch 1 PATCH TOPICAL (11:59)
[2019-05-28 14:00] VITALS: O2SAT 94
[2019-05-28 15:29] VITALS: BP 122/74; PULSE 82; RESP 18; TEMP 36.7; O2SAT 95
[2019-05-28] MEDS: ALPRAZolam 0.5 MG Tablet 1 MG PO (16:42)
[2019-05-28 16:48] VITALS: BP 122/74; PULSE 82
--- NOTE | 2019-05-28 17:00 | CASEMGMT ---
Social Work Insurance issued LCD 05/31, DC home 06/01. Spoke with pt with daughter and granddaughter present to discuss discharge plans. Pt immediately became defensive to the information and worried about finances. Pt very overwhelmed with financial burden of daughter and granddaughter as her income and fpc supports them. Offered to assist with Medicaid - pt became very angry and tearful and stated she could not do that because the house is supposed to go to her daughter and granddaughter, and they need to continue to live in it. SW offered to confirm that, if dtr is deemed disabled, she can continue to live in the house, with Medicaid family service caseworker - left messages with two case workers for further information - as Medicaid would assist with health and DME needs. SW attempted to assist with coping mechanisms, discuss stressors to anxiety, and assist with deescalating pt. Pt remained agitated, angry, defensive and tearful. Pt stated she wanted to leave tonight because she couldn't afford a bill. SW assured her the insurance is continuing to cover her stay until Tuesday. Pt was having difficulty digesting the information as she was so upset. SW attempted at length with verbal and emotional support. SW attempted to inquire about home going needs, such as O2. Pt stated if she had to pay anything for it, she wasn't going to use it. Dtr stated she used [employer] [facility] for O2 needs, and there were empty tanks in the home still. SW offered to contact DME companies to inquire about financial liability. Pt was unable to continue conversation or make decisions without further information - SW stated she would get answers and relay those to her. [facility] not have [facility] with them. Contacted [employer] - the last O2 servicing provided to pt was at the merger of [email or web address] 08/02/18. [employer] stated they would picking supervisor the empty O2 tanks and pt can use whichever company she would like moving forward. Wanda stated if pt did not meet her deductible, she would pay about $100/mo. If the deductible was met, she would pay about $20/mo for O2. Pt requires no other DME needs for DC. Will provide information to pt and dtr to continue DC planning. Jamilah Pérez, SANITARY PLUMBER HELPDESK SPECIALIST
--- NOTE | 2019-05-28 17:41 | CASEMGMT ---
Social Work Pt requested SW visit. Pt received PRN Zanax and is ready to discuss DC options again, per pt. SW began at the beginning of information and recapped previous conversation and informed her of information SW received. Dtr stated she is on Medicaid herself and receives SSDI. Pt happy to know Medicaid could potentially allow dtr to remain in the home -still awaiting confirmation from Medicaid nurse case management. Pt is agreeable to complete her own Medicaid application. Dtr to assist with completion - SW provided [facility] phone number as well for assistance. SW offered assistance in addition. Reexplained it would cover copays and pt can use O2 as directed. Pt agreeable to DC home 06/01. Provided pt with list of [facility] companies - she will review and notify SW of preferred agency. Pt repeatedly apologized for reaction and behavior during previous conversation and understands and appreciates SW role and support. SW stated to continue discussion tomorrow so pt does not get too overwhelmed. Pt agreed. Plan: DC home 06/01 with [facility] PT/OT/SN, [employer]. Jamilah Pérez, FULFILLMENT REPRESENTATIVE ENGAGEMENT LEAD
[2019-05-28] MEDS: Venlafaxine XR 75 MG Capsule PO (20:29)
[2019-05-28] MEDS: MELATONIN 10 MG TABLET PO (20:29)
--- NOTE | 2019-05-28 20:41 | DCINST_ITS ---
- Discharge Diagnoses Current Active Problems: Current Active and Chronic Problems (Last Reviewed 05/13/19 @ 17:13 by Jacob Duggan DO) Hyperkalemia (Acute) Sleep apnea (Chronic) Atrial fibrillation (Chronic) Acute on chronic diastolic heart failure (Acute) Vitamin D deficiency (Chronic) Allergic rhinitis (Chronic) Restless leg syndrome (Chronic) You will use the following diet at home:: No restrictions, Regular Your food should be the consistency of: Regular Your liquids should be the consistency of: Regular/Thin Discharge Activity: Return to Normal Activity, May Shower, Use Walker Weight Bearing Status: Weight bearing as tolerated Call your doctor if you observe: Fever of 101 or Higher, Inability to urinate, Inability to have a bowel movement, Shortness of breath, Chest pain, Uncon trolled pain Allergies/Adverse Reactions: Allergies doxycycline Allergy (Severe, Verified 05/13/19 14:27) ulcerations of lips and mouth gabapentin Adverse Reaction (Severe, Verified 05/13/19 14:27) GI upset, Vomiting ciprofloxacin [From Cipro] Adverse Reaction (Intermediate, Verified 05/13/19 14:27) Other messes with her heart medicine Medications to take at Discharge Albuterol Inhaler [Ventolin Hfa] 1 puff INHALATION Q4H PRN PRN 08/08/13 Fluticasone 0.05% [Flonase Nasal [place]] 1 spray NASAL DAILY 08/08/13 flecainide 150 mg tablet 150 mg PO BID 08/16/17 Venlafaxine HCl [Venlafaxine HCl ER] 75 mg PO QHS 01/28/18 Metoprolol Tartrate [Lopressor (beta bairon)] 25 mg PO BID 02/01/18 Acetaminophen [Tylenol] 1,000 mg PO Q8 05/13/19 Lidocaine [Lidoderm Patch] 1 patch TOPICAL DAILY PRN 05/13/19 Venlafaxine HCl [Venlafaxine HCl ER] 150 mg PO DAILY 05/13/19 ALPRAZolam [Xanax] 1 mg PO TID PRN #30 tab 05/28/19 Buprenorphine [Butrans 5 Mcg/Hr] 1 ea TD QWEEK patch.tdwk 05/28/19 Famotidine [Pepcid] 40 mg PO DAILY #30 tab 05/28/19 Furosemide [Lasix] 40 mg PO BID@1000,1800 #60 tab 05/28/19 Nystatin Powder [Mycostatin Powder] 1 applic TOPICAL 0600,2200 bottle 05/28/19 Oxycodone [Oxyir] 5 mg PO Q6H PRN PRN 7 Days #30 tab 05/28/19 Polyethylene Glycol 3350 [Miralax] 17 gm PO DAILY #30 packet 05/28/19 Potassium Chloride [Klor-Con] 20 meq PO DAILY #30 packet 05/28/19 The following prescriptions were given: Potassium Chloride [Klor-Con] 20 meq PO DAILY #30 packet Transmission Status: Pending to [id number] Furosemide [Lasix] 40 mg PO BID@1000,1800 #60 tab Transmission Status: [id number] Polyethylene Glycol 3350 [Miralax] 17 gm PO DAILY #30 packet Transmission Status: [facility]ending [id number] Oxycodone [Oxyir] 5 mg PO Q6H PRN PRN 7 Days #30 tab PRN Reason: Moderate Pain (4-5/10) Prescription Printed Famotidine [Pepcid] 40 mg PO DAILY #30 tab Transmission Status: [facility]ending [id number] ALPRAZolam [Xanax] 1 mg PO TID PRN #30 tab PRN Reason: ANXIETY Prescription Printed Primary Care Physician: Darinel Callejas Chi, MD [Primary Care Provider] - Please follow up with your Primary Care Physician in: 1 week. Test Results: Test results from this visit will be discussed in further detail at your follow- up appointment, if applicable. Proposed Discharge Date: 06/01/19
--- NOTE | 2019-05-28 20:43 | PCM.DC.SUM ---
Discharge Date and Diagnosis - Problem List Patient Problems: Active and Suspected Problems (Last Reviewed 05/13/19 @ 17:13 by Jacob Duggan DO) Hyperkalemia (Acute) Acute on chronic diastolic heart failure (Acute) Date of Admission: 05/17/19 Date of Discharge: 06/01/19 - Primary Discharge Diagnosis Active and Suspected Problems (Last Reviewed 05/13/19 @ 17:13 by Jacob Duggan DO) Hyperkalemia (Acute) Acute on chronic diastolic heart failure (Acute) - Secondary Discharge Diagnosis Chronic Problems (Last Reviewed 05/13/19 @ 17:13 by Jacob Duggan DO) Sleep apnea (Chronic) Atrial fibrillation (Chronic) Vitamin D deficiency (Chronic) Allergic rhinitis (Chronic) Restless leg syndrome (Chronic) Cardiomyopathy, dilated (Chronic) ESPERANZA (obstructive sleep apnea) (Chronic) Chronic respiratory failure with hypoxia (Chronic) Anxiety (Chronic) Depression (Chronic) Osteoarthritis (Chronic) Pulmonary nodules (Chronic) Left ventricular hypertrophy (Chronic) Back pain (Chronic) Super 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) GERD (gastroesophageal reflux disease) (Chronic) Shortness of breath (Chronic) Non-sustained ventricular tachycardia (Chronic) Dysmetabolic syndrome (Chronic) Hypertension (Chronic) 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) [facility] current use of antiarrhythmic medical therapy (Chronic) Paroxysmal atrial fibrillation (Chronic) Asthma (Chronic) COPD (chronic obstructive pulmonary disease) (Chronic) Hospital Course and Treatment Imaging Results: 05/17/19 15:47 Diet: Cardiac/Low Cholesterol Food consistency:: Soft Liquid Consistency:: Regular/Thin Dietary Modifications:: Fluid Restricted Diet Is pt able to select menu?: No Diet Comments: 1500cc fluid rest, straws, chin tuck, small sips, supervision Clinical Impression(s) from Imaging Studies Chest X-Ray 05/22/19 08:07 IMPRESSION: Since prior study, there has been progressive increased markings at the lung bases suggestive of atelectasis and/or early infiltrate superimposed on chronic scarring. Electronically Signed: Ivan rAce, at 13:51 EDT , Service support , Videofluoroscopic Swallow 05/22/19 10:00 IMPRESSION: Transient penetration with ingestion of thin liquids and nectar thickened liquids. The swallow study findings were discussed with the patient by the speech pathologist at the conclusion of the examination. Please see speech pathology report for more information and recommendations. Electronically Signed: Ivan Arce, at 13:05 EDT , Service support , Operations: None Procedures: None Summary of Care Provided: The patient is a 68 year old Female with below past medical history hospitalized for shortness of breath secondary to COPD exacerbation, acute on chronic diastolic congestive heart failure, complicated by acute kidney injury, hyperkalemia, admitted to TCU with debility, here for rehabilitation, strengthening, prior to discharge home with daughter. Discharge home with daughter, Home Health Care for PT/OT/SN, [employer] [facility]. Patient Problems: Active and Suspected Problems (Last Reviewed 05/13/19 @ 17:13 by Jacob Duggan DO) Hyperkalemia (Acute) Acute on chronic diastolic heart failure (Acute) - Physical Exam Vital Signs Temp Pulse Resp BP Pulse Ox 98.0 F 82 18 122/74 H 95 05/28/19 15:29 05/28/19 16:48 05/28/19 15:29 05/28/19 16:48 05/28/19 15:29 Oxygen Flow Rate (L/min) 4 Oxygen Delivery Method Nasal Cannula Weight: 114.475 kg Body Mass Index (BMI) 38.2 Intake and Output for Last 24 Hours 05/26/19 05/27/19 05/28/19 23:59 23:59 23:59 Intake Total 1320 / 1320 1200 / 1200 720 / 720 Output Total 1250 / 1250 1100 / 1100 Balance 70 / 70 100 / 100 720 / 720 Discharge Diet: No Restrictions Discharge Activity: Return to Normal Activity, May Shower, Use Walker Weight Bearing Status: Weight bearing as tolerated Call your doctor if you observe: Fever of 101 or Higher, Inability to urinate, Inability to have a bowel movement, Shortness of breath, Chest pain, Uncontrolled pain Home Medications: Medications to take at Discharge Albuterol Inhaler [Ventolin Hfa] 1 puff INHALATION Q4H PRN PRN 12/04/13 Fluticasone 0.05% [Flonase Nasal [place]] 1 spray NASAL DAILY 08/08/13 flecainide 150 mg tablet 150 mg PO BID 08/16/17 Venlafaxine HCl [Venlafaxine HCl ER] 75 mg PO QHS 01/28/18 Metoprolol Tartrate [Lopressor (beta bairon)] 25 mg PO BID 02/01/18 Acetaminophen [Tylenol] 1,000 mg PO Q8 05/13/19 Lidocaine [Lidoderm Patch] 1 patch TOPICAL DAILY PRN 05/13/19 Venlafaxine HCl [Venlafaxine HCl ER] 150 mg PO DAILY 05/13/19 ALPRAZolam [Xanax] 1 mg PO TID PRN #30 tab 05/28/19 Buprenorphine [Butrans 5 Mcg/Hr] 1 ea TD QWEEK patch.tdwk 05/28/19 Famotidine [Pepcid] 40 mg PO DAILY #30 tab 05/28/19 Furosemide [Lasix] 40 mg PO BID@1000,1800 #60 tab 05/28/19 Nystatin Powder [Mycostatin Powder] 1 applic TOPICAL 0600,2200 bottle 05/28/19 Oxycodone [Oxyir] 5 mg PO Q6H PRN PRN 7 Days #30 tab 05/28/19 Polyethylene Glycol 3350 [Miralax] 17 gm PO DAILY #30 packet 05/28/19 Potassium Chloride [Klor-Con] 20 meq PO DAILY #30 packet 05/28/19 Following Prescrptions Were Given to Patient: Potassium Chloride [Klor-Con] 20 meq PO DAILY #30 packet Transmission Status: [id number] Furosemide [Lasix] 40 mg PO BID@1000,1800 #60 tab Transmission Status: [id number] Polyethylene Glycol 3350 [Miralax] 17 gm PO DAILY #30 packet Transmission Status: [id number] Oxycodone [Oxyir] 5 mg PO Q6H PRN PRN 7 Days #30 tab PRN Reason: Moderate Pain (4-5/10) Prescription Printed Famotidine [Pepcid] 40 mg PO DAILY #30 tab Transmission Status: [id number] ALPRAZolam [Xanax] 1 mg PO TID PRN #30 tab PRN Reason: ANXIETY Prescription Printed Primary Care Physician: Darinel Callejas Chi, MD [Primary Care Provider] - Please follow up with your Primary Care Physician in: 1 week. Disposition: Home with Home Health Minutes spent on discharge:: 35 Patient Condition:: Stable Medical Necessity - Tobacco Use Smoking Status: Former smoker Tobacco Use: Non-smoker Meaningful Use Info Meaningful Use Diagnoses (Choose all that apply): None applicable
--- NOTE | 2019-05-28 20:44 | HHNOTE_ITS ---
Home Health Note - Plan Overview of reason of hospitalization: The patient is a 68 year old Female with below past medical history hospitalized for shortness of breath secondary to COPD exacerbation, acute on chronic diastolic congestive heart failure, complicated by acute kidney injury, hyperkalemia, admitted to TCU with debility, here for rehabilitation, strengthening, prior to discharge home with daughter. Discharge home with daughter, Home Health Care for PT/OT/SN, [employer] [facility]. Problems: Patient was seen for (Last Reviewed 05/13/19 @ 17:13 by Jacob Duggan DO) Hyperkalemia (Acute) Sleep apnea (Chronic) Atrial fibrillation (Chronic) Acute on chronic diastolic heart failure (Acute) Vitamin D deficiency (Chronic) Allergic rhinitis (Chronic) Restless leg syndrome (Chronic) Complete List of Medical Problems (Last Reviewed 05/13/19 @ 17:13 by Jacob Duggan DO) EMMANUEL (acute kidney injury) (Acute) Debility (Acute) COPD exacerbation (Acute) Hyperkalemia (Acute) Sleep apnea (Chronic) Atrial fibrillation (Chronic) Acute on chronic diastolic heart failure (Acute) Vitamin D deficiency (Chronic) Allergic rhinitis (Chronic) Restless leg syndrome (Chronic) Cardiomyopathy, dilated (Chronic) ESPERANZA (obstructive sleep apnea) (Chronic) Chronic respiratory failure with hypoxia (Chronic) Anxiety (Chronic) Depression (Chronic) Osteoarthritis (Chronic) Pulmonary nodules (Chronic) Left ventricular hypertrophy (Chronic) Back pain (Chronic) Super 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) GERD (gastroesophageal reflux disease) (Chronic) Weakness (Acute) Shortness of breath (Chronic) Non-sustained ventricular tachycardia (Chronic) Dysmetabolic syndrome (Chronic) Hypertension (Chronic) 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) 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 medical therapy (Chronic) Paroxysmal atrial fibrillation (Chronic) Asthma (Chronic) COPD (chronic obstructive pulmonary disease) (Chronic) - Requirements and Reasons Disciplines Needed/Ordered: Assisted, Physical Therapy Reason for Disciplines: Disease Specific Monitoring/education, Gait Training, Stair Training, Fall Prevention, Home Safety/Equipment Instruction, Balance and/or Posture Training, Transfer Training Related To: Change in Medical Treatment Plan, Limited/Poor Endurance, Shortness of Breath with Activity, Physical Impairments, Unsteady Gait/Balance, Fall Risk Patient is unable to leave the home: Without Aid of Supportive Devices (crutches, cane, wheelchair, walker), Without the assistance of another person - Additional Disciplines Additional Disciplines Needed/Ordered: Occupational Therapy
[2019-05-29] MEDS: ALPRAZolam 0.5 MG Tablet 1 MG PO ×3 (00:03→20:10)
[2019-05-29] MEDS: oxyCODONE 5 MG Tablet PO ×3 (03:37→17:56)
[2019-05-29] MEDS: Acetaminophen 500 MG Tablet 1000 MG PO ×3 (03:39→20:11)
[2019-05-29] MEDS: Polyethylene Glycol 3350 17 GM PACKET PO (03:39)
[2019-05-29 03:40] VITALS: BP 129/79; PULSE 67
[2019-05-29] MEDS: guaiFENesin 1,200 MG Tablet 1200 MG PO ×2 (03:40→17:54)
[2019-05-29] MEDS: Senna/Docusate Sodium 1 Tablet 2 TABLET PO ×2 (03:40→17:54)
[2019-05-29] MEDS: Metoprolol Tartrate 25 MG Tablet PO ×2 (03:40→17:54)
[2019-05-29] MEDS: Famotidine 20 MG Tablet PO (03:40)
[2019-05-29] MEDS: Flecainide 150 MG Tablet PO ×2 (03:41→17:54)
[2019-05-29] MEDS: Venlafaxine XR 150 MG Capsule PO (03:41)
[2019-05-29] MEDS: Amox/Clavulanate 875 MG Tablet PO ×2 (03:41→17:54)
[2019-05-29] MEDS: Enoxaparin 30 MG/0.3 ML Syringe SC (03:44)
[2019-05-29] MEDS: Fluticasone 0.05% 1 SPRAY NASAL.SRY NASAL (03:44)
[2019-05-29] MEDS: Nystatin Powder 15gm Bottle 1 APPLIC TOPICAL ×2 (03:47→20:13)
--- NOTE | 2019-05-29 08:03 | RAD_ITS ---
STUDY: X-RAY - PELVIS AND LEFT HIP REASON FOR EXAM: Increased left hip pain. TECHNIQUE: 2 views of the pelvis and hip. COMPARISON: Radiographs 12/05/2018. FINDINGS: There is osteopenia. There is very mild vascular calcification. Normal bilateral iliac wings, sacroiliac joints and visualized sacrum. Normal bilateral superior and inferior pubic rami. Normal pubic symphysis. Normal bilateral ischial tuberosities. There is a left femoral intramedullary aura with hip nail transfixing a healed intertrochanteric hip fracture. There is a small linear ossification adjacent to the lesser trochanter as on the prior study. There is medial joint space narrowing of the left hip as on the prior study. RAD/HIP, UNI W/ Pelvis 2-3 Views IMPRESSION: No interval change of ORIF of left intertrochanteric hip fracture. Left hip arthrosis without interval change. Electronically Signed: Ernie Tong MD at 14:18 EDT Tel , Service support ,
[2019-05-29] MEDS: Furosemide 40 MG Tablet PO ×2 (09:10→17:54)
[2019-05-29] MEDS: Lidocaine 5% Patch 1 PATCH TOPICAL (09:11)
--- NOTE | 2019-05-29 12:54 | MDS.RN ---
Information for the mds was obtained from review of the clinical record, interview of resident, staff, and direct observation of resident's care.
--- NOTE | 2019-05-29 15:04 | CASEMGMT ---
Social Work Dtr and gdtr visiting pt. Revisited DC discussion. Pt became tearful and upset again. Reexplained Medicaid and that Medicaid C.M. confirmed dtr can remain in the home is she is disabled and does not have any other housing arrangements. Dtr assisted pt in completing Medicaid application - pt agreed to submit. Faxed application to [facility]. Will await outcome. Pt considering not having HHC as she is not in favor of having additional people in the home. Inquired about [facility]. Explained services and differences between HHC and outpatient. Pt concerned about cost of outpatient. Left message with [email or web address] to inquire on cost. Pt will await to make any further decisions until that information. Pt remains upset throughout conversation - verbal and emotional support provided. Will continue to follow. SHARON NjW
[2019-05-29 16:00] VITALS: BP 130/74; PULSE 78; RESP 20; TEMP 37; O2SAT 95
--- NOTE | 2019-05-29 16:00 | CASEMGMT ---
Social Work Received [employer] copay cost - $40 with 15% discount if pays at time of service. Relayed information pt and dtr still in room. Pt began worrying over finances again. Pt stated her dtr had the SSI check in her pocket and would not give her $20, that's all she asked for, and she hasn't seen her check in 6-7 months. Inquired to dtr about check, dtr stated that is not true, she gives her any money she asks for, but the pt makes more money than she does and she cannot live on her own. SW directly asked the specifics of the money - the dtr states the pts check gets direct deposited into the pts account each month and pays for the utilities, house, gas, and groceries. The dtr gets her check later in the month, that is also direct deposited into the dtrs account which also is used to pay for bills. Explained to the pt and the dtr, exploitation and the legal system, and explained when applying for Medicaid, there is a 5 year look back of finances which they will look at where the income goes, and if all of it is being used/transferred appropriately. The pt and dtr stated everything is fine with their finances, they help each other out with bills, and things will check out. Based off of this information, the information of possibly not having clean, safe living conditions, an APS referral will be made at time of discharge. SHARON Nj
[2019-05-29 17:54] VITALS: BP 130/74; PULSE 78
[2019-05-29] MEDS: MELATONIN 10 MG TABLET PO (20:11)
[2019-05-29] MEDS: Venlafaxine XR 75 MG Capsule PO (20:11)
[2019-05-30] MEDS: oxyCODONE 5 MG Tablet PO ×3 (00:19→14:27)
[2019-05-30] MEDS: Senna/Docusate Sodium 1 Tablet 2 TABLET PO ×2 (03:58→16:40)
[2019-05-30] MEDS: Acetaminophen 500 MG Tablet 1000 MG PO ×2 (04:00→14:27)
[2019-05-30] MEDS: ALPRAZolam 0.5 MG Tablet 1 MG PO ×2 (04:00→12:15)
[2019-05-30] MEDS: Venlafaxine XR 150 MG Capsule PO (04:01)
[2019-05-30] MEDS: Famotidine 20 MG Tablet PO (04:02)
[2019-05-30] MEDS: guaiFENesin 1,200 MG Tablet 1200 MG PO ×2 (04:02→16:40)
[2019-05-30] MEDS: Polyethylene Glycol 3350 17 GM PACKET PO (04:02)
[2019-05-30] MEDS: Flecainide 150 MG Tablet PO ×2 (04:02→16:40)
[2019-05-30] MEDS: Enoxaparin 30 MG/0.3 ML Syringe SC (04:03)
[2019-05-30 04:04] VITALS: BP 132/86; PULSE 76
[2019-05-30] MEDS: Metoprolol Tartrate 25 MG Tablet PO ×2 (04:04→16:40)
[2019-05-30] MEDS: Fluticasone 0.05% 1 SPRAY NASAL.SRY NASAL (04:07)
[2019-05-30] MEDS: Nystatin Powder 15gm Bottle 1 APPLIC TOPICAL (04:09)
[2019-05-30] MEDS: Furosemide 40 MG Tablet PO ×2 (08:21→16:40)
--- NOTE | 2019-05-30 12:34 | NURSING ---
Addendum entered by Leanne L Jackie 05/30/19 14:42: R' CALMER. WEARING O2 AND SITTING UP IN BED. R' APOLOGIZED FOR YELLING AND SHE IS MUCH MORE COOPERATIVE. REQUESTED PAIN MEDS, GIVEN. DAUGHTER CALLED, NOTIFIED HER THAT DISCHARGE IS NOW PLANNED FOR TOMORROW. Addendum entered by Leanne L Jackie 05/30/19 13:18: R' RESTING IN BED ON RIGHT SIDE. MANAGER RETAIL SPOKE WITH R'. R' NOT AGITATED, SLIGHTLY TEARFUL. SHE DOES NOT WANT TO DISCUSS ANYTHING. REAPPLIED O2 THREE TIMES BUT REFUSES TO WEAR. WILL MONITOR. REFUSED TYLENOL. Original Note: R' VERY AGITATED AT THIS TIME, STATING SHE WANTS TO GO HOME TODAY. SHE IS FRUSTRATED SHE CAN'T GET A HOLD OF HER DAUGHTER. STATES I'M SICK OF BEING HERE! I'M SUPPOSED TO LEAVE TUESDAY, SO WHY CAN'T I LEAVE TODAY? R' REFUSING TO GO TO THERAPY AT THIS TIME AND WON'T LEAVE HER O2 ON. CHRISTIANE, MANAGER RETAIL NOTIFIED. IN ROOM AT THIS TIME TO TALK TO R'. DARLING MONTALVO TRIED TO CONTACT DAUGHTER BUT UNSUCCESSFUL. R' DID TAKE XANAX. WILL CONT' TO MONITOR.
--- NOTE | 2019-05-30 13:32 | CASEMGMT ---
Addendum entered by Jamilah Pérez 05/30/19 17:02: Pt has changed her mind and decided it would be best to remain until the original DC date 06/01. Pt has agreed to HHC - chose [facility] for PT/OT/SN. Referral made. Sent O2 testing to [employer]. Plan: DC home 06/01 with [facility] and [employer] O2. Original Note: Social Work Nursing notified pt requesting to DC early and refusing therapy and being very upset and tearful. Spoke with pt, provided emotional and verbal support. Pt expressed her concerns remains on finances, and feels like she isn't doing anything here and would rather be at home working around the house taking care of her dtr and gdtr. Inquired about HHC and outpatient - pt states she does not need any services. SW will order O2 through [employer]. Pt agreed to that order and to participate in PT to get O2 testing completed, and would like to DC home tomorrow, 05/31. Pt was not upset at the end of the conversation and agreeable to new DC plan. Plan: DC home 05/31, with no HHC/outpatient and O2. Jamilah Pérez, HOSPITAL LIBRARIAN MOLDED FRAMES ASSEMBLER
[2019-05-30 16:00] VITALS: BP 141/85; PULSE 75; RESP 20; TEMP 36.3; O2SAT 98
[2019-05-30 16:40] VITALS: PULSE 71
--- NOTE | 2019-05-30 17:27 | CHAPLAIN ---
Type of Pastoral Visit ___ Initial Visit _x__ Follow-up Visit ___ On-call Visit ___ General Patient Visit ___ Spiritual Assessment ___ Family Conference ___ Bereavement ___ Rapid Response ___ Code Blue ___ Other (describe below) Pastoral Care Referral From _x__ Patient ___ Family ___ Nurse ___ Physician ___ Strategic Marketing Associate ___ Oven Attendant ___ Other (describe below) Sacrament/Intervention _x__ Active listening ___ Anointing ___ Congregation ___ Bereavement ___ Communion ___ Diane exploration ___ _x__ Life review _x__ Prayer ___ Reconciliation ___ Sacrament of Sick _x__ Supportive presence ___ Wedding _x__ Other (describe below) Pastoral Comments sat with patient in the activity area after her game of [employer]; pt speaks of being sorry for how she acted to staff earlier; gave time to listen and ask questions to pt; brought RN and SW into the discussion where pt made apologies for statements made; staff gave assurances to pt and affirmed desire to continue to care for her; pt says she feels much better after discussion; prayer also welcomed
--- NOTE | 2019-05-30 21:40 | NURSING ---
Addendum entered by Catherine Roman 05/31/19 04:14: Pts daughter left at 0340 and pt was in bed sleeping at 0350 with NC on. Addendum entered by Catherine Roman 05/31/19 02:22: Pt applied NC with much encouragement from this nurse and pts daughter at 0215. O2 at 93%. Pt being more cooperative with care at this time. Addendum entered by Catherine Roman 05/31/19 00:50: Pts daughter arrived to floor at 0035. Pt continues to refuse NC and be agitated. Pts O2 between 81%-86% on room air. Pt upset stating why am I here when I only get one hour of therapy? Pt also stating that I just stay in this room bored, I get no visitors, and the nurse's don't give me my medications. Addendum entered by Catherine Roman 05/31/19 00:09: After much encouragement, pt allowed this nurse to apply NC. Pts daughter called in at 2345 and let staff know that her mother had called her on her cellphone and that the pts daughter will come in. Addendum entered by Catherine Roman 05/30/19 23:58: Pt continues to be upset and agitated. Pt continues to take NC off and refuses to put it on even with encouragement from multiple staff members. O2 at 86%. Pt frustrated that she should be home taking care of her daughter and granddaughter, and the pt cannot do that while being in hospital. Pt also upset because she wants to go home and shes worried about who is going to pay for her oxygen and asking staff members do you know how much I pay for this room? Pt states that staff members don't ever say hello and she has to be the one to speak first. Original Note: Pt very upset, anxious, and agitated. Pt did not have NC on and refused to put it on. Pts O2 at 87% and fluctuating between 55%-75%-87%. Pts finger tips turning blue and cold. Explained the importance of wearing oxygen and pt continues to refuse because she believes she is going home tonight and will not need the oxygen at home. Pt believes that her daughter is coming tonight to pick her up. Pt upset because she does not think staff members care about her stating no one gives a damn about me, I have been in here all day and no one has been in here. 1:1 given, offered fluids and food but pt refused, refused to go to the bathroom at this time. Pt denies having any pain and is refusing HS medications stating I don't need those here, I have them at home. I will take them when I get home. Pt also concerned about wearing oxygen at home and wondering who is going to pay for it. Other staff members encouraged pt to put oxygen on. After multiple attempts, pt finally put NC on and O2 at 95%-100%. Will continue to monitor.
[2019-05-31] MEDS: oxyCODONE 5 MG Tablet PO ×4 (01:25→23:51)
[2019-05-31] MEDS: ALPRAZolam 0.5 MG Tablet 1 MG PO ×2 (01:25→20:22)
[2019-05-31] MEDS: Acetaminophen 500 MG Tablet 1000 MG PO ×3 (03:29→20:23)
[2019-05-31] MEDS: Lidocaine 5% Patch 1 PATCH TOPICAL (06:08)
[2019-05-31] MEDS: Fluticasone 0.05% 1 SPRAY NASAL.SRY NASAL (06:13)
[2019-05-31 06:14] VITALS: BP 110/53; PULSE 75
[2019-05-31] MEDS: Flecainide 150 MG Tablet PO ×2 (06:14→17:49)
[2019-05-31] MEDS: Senna/Docusate Sodium 1 Tablet 2 TABLET PO ×2 (06:14→17:50)
[2019-05-31] MEDS: Venlafaxine XR 150 MG Capsule PO (06:14)
[2019-05-31] MEDS: guaiFENesin 1,200 MG Tablet 1200 MG PO ×2 (06:14→17:50)
[2019-05-31] MEDS: Metoprolol Tartrate 25 MG Tablet PO ×2 (06:14→17:49)
[2019-05-31] MEDS: Famotidine 20 MG Tablet PO (06:14)
[2019-05-31] MEDS: Enoxaparin 30 MG/0.3 ML Syringe SC (06:14)
[2019-05-31] MEDS: Nystatin Powder 15gm Bottle 1 APPLIC TOPICAL (06:15)
[2019-05-31 07:00] VITALS: O2SAT 94
[2019-05-31] MEDS: Furosemide 40 MG Tablet PO ×2 (08:33→17:49)
[2019-05-31 15:52] VITALS: BP 140/84; PULSE 74; RESP 19; TEMP 36.9
[2019-05-31 17:49] VITALS: BP 140/84; PULSE 74
[2019-05-31] MEDS: oxyCODONE 5 MG Tablet 10 MG PO (20:22)
[2019-05-31] MEDS: MELATONIN 10 MG TABLET PO (20:23)
[2019-05-31] MEDS: Venlafaxine XR 75 MG Capsule PO (20:24)
--- NOTE | 2019-05-31 20:25 | NURSING ---
Patient very agitated this evening. Patient noted to have o2 not on. This nurse explained and encouraged patient to put on oxygen. Patient states why should I do that I am going home, and I won't have oxygen then. Daughter and granddaughter in room and reassuring patient that she will have oxygen at home. Patient also complaining of severe pain in left hip stating nothing works for this pain. Patient refusing to take HS medication which has Tylenol stating that this does not work. Patient not due for prn OxyIR for [address] Callejas notified of this. Orders given for [address] Callejas states that is ok to given PRN Xanax with the OxyIR. Pain medications given along with HS medications and Xanax. Patient's O2 on currently. Patient still very agitated with staff and family. Will continue to monitor and assess.
[2019-06-01] MEDS: Acetaminophen 500 MG Tablet 1000 MG PO ×2 (03:19→13:18)
[2019-06-01] MEDS: ALPRAZolam 0.5 MG Tablet 1 MG PO ×2 (03:19→11:42)
[2019-06-01] MEDS: Lidocaine 5% Patch 1 PATCH TOPICAL (03:21)
[2019-06-01 05:57] LABS: Absolute Lymphocyte Count 1.72 X10^3/uL (0.83-4.51); Absolute Neutrophil Count 5.6 X10^3/uL (2.0-7.7); Basophil# 0.07 X10^3/uL; Basophil% 0.8 % (0-1); Eosinophils% 3.6 % (0-5); Hematocrit 39.9 % (37-47); Hemoglobin 12.1 g/dL (12.0-15.0); Lymphocyte # 1.72 X10^3/ul (4.0); Lymphocyte % 20.6 % (19-41); Mean Corp Hgb Conc 30.3 g/dL (32-36); Mean Corpuscular Hgb 29.6 pg (27.0-32.0); Mean Corpuscular Volume 97.6 fL (81-99); Mean Platelet Vol. 10.2 fl (6.2-12.0); Monocyte# 0.68 X10^3/uL; Monocyte% 8.1 % (0-10); NRBC Flagged by Analyzer 0 % (0-5); Neutrophil # 5.55 X10^3/uL (2.7-7.7); Neutrophil % 66.5 % (47-70); Platelet Count 242 K/mm3 (150-450); RBC Distribution Width CV 13.4 % (11.6-14.6); RBC Distribution Width SD 47.8 fl (35.1-43.9); Red Blood Count 4.09 M/mm3 (4.2-5.4); White Blood Count 8.4 K/mm3 (4.4-11.0)
[2019-06-01 06:00] LABS: Anion Gap 7 (5-15); BUN 49 mg/dL (7-18); Calcium,Total 8.9 mg/dL (8.5-10.1); Chloride 100 mmol/L (98-107); Creatinine, Serum 1.53 mg/dL (0.55-1.02); EST Glomerular Filtration Rate 36 mL/min (>60); Est Glom Filt Rate - Afr Amer 43 mL/min (>60); Estimated Creatinine Clearance 32.94 ml/min; Glucose 101 mg/dL (74-106); Sodium Level 139 mmol/L (136-145)
[2019-06-01] MEDS: Flecainide 150 MG Tablet PO (06:18)
[2019-06-01] MEDS: oxyCODONE 5 MG Tablet PO ×2 (06:18→13:18)
[2019-06-01] MEDS: Venlafaxine XR 150 MG Capsule PO (06:18)
[2019-06-01] MEDS: guaiFENesin 1,200 MG Tablet 1200 MG PO (06:18)
[2019-06-01] MEDS: Enoxaparin 30 MG/0.3 ML Syringe SC (06:18)
[2019-06-01] MEDS: Famotidine 20 MG Tablet PO (06:19)
[2019-06-01] MEDS: Fluticasone 0.05% 1 SPRAY NASAL.SRY NASAL (06:19)
[2019-06-01 06:23] VITALS: BP 111/53; PULSE 68
[2019-06-01] MEDS: Metoprolol Tartrate 25 MG Tablet PO (06:23)
--- NOTE | 2019-06-01 16:33 | CASEMGMT ---
Social Work Pt is a [facility] resident. Contacted and provided information to APS in [facility]. SHARON NjW
== END 2019-06-01 13:50 | disposition home health service (06) | DRG 948 ==
LOC: TCU 14:50
PROVIDERS: Admitting Provider Family Medicine Geriatric Medicine; Family Provider Family Medicine Geriatric Medicine; PCP Family Medicine Geriatric Medicine; Referring Provider Family Medicine Geriatric Medicine; Visit Provider Family Medicine Geriatric Medicine
DX: R53.81 Other malaise (principal); I13.0 Hypertensive heart and chronic kidney disease with heart failure and stage 1 through stage 4 chronic kidney disease, or unspecified chronic kidney disease; I50.42 Chronic combined systolic (congestive) and diastolic (congestive) heart failure; J96.11 Chronic respiratory failure with hypoxia; K21.9 Gastro-esophageal reflux disease without esophagitis; I48.0 Paroxysmal atrial fibrillation; F32.9 Major depressive disorder, single episode, unspecified; N18.3 Chronic kidney disease, stage 3 (moderate); J44.9 Chronic obstructive pulmonary disease, unspecified; G47.33 Obstructive sleep apnea (adult) (pediatric); M19.90 Unspecified osteoarthritis, unspecified site; E66.01 Morbid (severe) obesity due to excess calories; Z68.38 Body mass index [BMI] 38.0-38.9, adult; Z71.3 Dietary counseling and surveillance; G89.29 Other chronic pain; F41.9 Anxiety disorder, unspecified; Z87.891 Personal history of nicotine dependence; E87.5 Hyperkalemia
CPT/HCPCS: 36415; 71046; 73502; 74230; 80048; 85025; 92507; 92526; 92610; 92611; 97110; 97116; 97162; 97166; 97530; 97535

== ENCOUNTER → 2019-06-07 10:15 | Outpatient (CLI) | payer MEDICARE, SELFPAY ==
[2019-05-17 14:36] VITALS: BMI 38.2
[2019-06-07 12:43] LABS: Absolute Lymphocyte Count 1.41 X10^3/uL (0.83-4.51); Absolute Neutrophil Count 5.4 X10^3/uL (2.0-7.7); Basophil# 0.07 X10^3/uL; Basophil% 0.9 % (0-1); Eosinophil# 0.36 X10^3/uL; Eosinophils% 4.5 % (0-5); Hematocrit 40.4 % (37-47); Hemoglobin 12.2 g/dL (12.0-15.0); Lymphocyte # 1.41 X10^3/ul (4.0); Lymphocyte % 17.8 % (19-41); Mean Corp Hgb Conc 30.2 g/dL (32-36); Mean Corpuscular Hgb 29.8 pg (27.0-32.0); Mean Corpuscular Volume 98.8 fL (81-99); Mean Platelet Vol. 10.3 fl (6.2-12.0); Monocyte# 0.62 X10^3/uL; Monocyte% 7.8 % (0-10); NRBC Flagged by Analyzer 0 % (0-5); Neutrophil # 5.43 X10^3/uL (2.7-7.7); Neutrophil % 68.6 % (47-70); Platelet Count 292 K/mm3 (150-450); RBC Distribution Width CV 13.9 % (11.6-14.6); RBC Distribution Width SD 50.4 fl (35.1-43.9); Red Blood Count 4.09 M/mm3 (4.2-5.4); White Blood Count 7.9 K/mm3 (4.4-11.0)
[2019-06-07 13:05] LABS: Vitamin D,25 Hydroxy 28.2 ng/mL (29.95-100.01)
[2019-06-07 13:06] LABS: ALB/GLOB Ratio 0.9 RATIO (0.9-2.4); AST(SGOT) 16 U/L (15-37); Alanine Aminotransfer ALT/SGPT 20 U/L (13-56); Albumin, Serum 3.2 g/dL (3.2-5.0); Alkaline Phosphatase 80 U/L (45-117); Anion Gap 6 (5-15); BUN 32 mg/dL (7-18); BUN/Creat Ratio 22.7 RATIO (10-20); Calcium,Total 9.1 mg/dL (8.5-10.1); Chloride 104 mmol/L (98-107); Creatinine, Serum 1.41 mg/dL (0.55-1.02); EST Glomerular Filtration Rate 39 mL/min (>60); Est Glom Filt Rate - Afr Amer 48 mL/min (>60); Globulin 3.7 g/dL (2.2-4.2); Glucose 92 mg/dL (74-106); Potassium 4.7 mmol/L (3.5-5.1); Protein, Total 6.9 g/dL (6.4-8.2); Sodium Level 143 mmol/L (136-145); Thyroid Stim Hormone (TSH) 1.58 uIU/mL (0.358-3.74)
== END ==
PROVIDERS: Family Provider Family Medicine Geriatric Medicine; PCP Family Medicine Geriatric Medicine; Visit Provider Family Medicine Geriatric Medicine
DX: E55.9 Vitamin D deficiency, unspecified (principal); R53.83 Other fatigue
CPT/HCPCS: 36415; 80053; 82306; 84443; 85025

== ENCOUNTER → 2019-06-21 16:03 | Outpatient (CLI) | payer MEDICARE, SELFPAY | PROVIDERS: Family Provider Family Medicine Geriatric Medicine; PCP Family Medicine Geriatric Medicine; Referring Provider Family Medicine Geriatric Medicine; Visit Provider Family Medicine Geriatric Medicine | DX: J41.0 Simple chronic bronchitis (principal) | CPT/HCPCS: 87633 ==

== ENCOUNTER → 2019-08-23 16:54 | Outpatient (CLI) | payer MEDICARE, SELFPAY ==
--- NOTE | 2019-08-23 16:56 | RAD_ITS ---
STUDY: X-RAY - RIGHT FOOT CLINICAL: Female, 68 years old. Pain redness and swelling, no known injury TECHNIQUE: 3 view(s) of the foot. COMPARISON: None. FINDINGS: The bones are osteopenic. There is a plantar aspect calcaneal spur. There are degenerative changes of the medial and mid cuneiform-navicular articulation. Normal metatarsi. Normal metatarsophalangeal joint of the great toe. Normal tibial and fibular sesamoid bones. Normal interphalangeal joint of the great toe. Normal phalanges of the great toe. Normal second through fifth metatarsophalangeal joints. Normal interphalangeal joints and phalanges of the lesser toes. The soft tissue structures are unremarkable. RAD/Foot min 3 Views IMPRESSION: Plantar aspect calcaneal spur. Generalized osteopenia. Degenerative changes of the medial and mid cuneiform-navicular articulation. Electronically Signed: Edward Lara MD at 20:57 EST , Service support ,
[2019-08-23 17:47] LABS: Absolute Lymphocyte Count 1.71 X10^3/uL (0.83-4.51); Absolute Neutrophil Count 8.9 X10^3/uL (2.0-7.7); Basophil# 0.08 X10^3/uL; Basophil% 0.7 % (0-1); Eosinophil# 0.11 X10^3/uL; Eosinophils% 0.9 % (0-5); Lymphocyte # 1.71 X10^3/ul (4.0); Lymphocyte % 14.7 % (19-41); Mean Corp Hgb Conc 31.3 g/dL (32-36); Mean Corpuscular Hgb 31.1 pg (27.0-32.0); Mean Corpuscular Volume 99.6 fL (81-99); Mean Platelet Vol. 9.9 fl (6.2-12.0); Monocyte# 0.79 X10^3/uL; Monocyte% 6.8 % (0-10); NRBC Flagged by Analyzer 0 % (0-5); Neutrophil # 8.91 X10^3/uL (2.7-7.7); Neutrophil % 76.5 % (47-70); Platelet Count 351 K/mm3 (150-450); RBC Distribution Width CV 15.7 % (11.6-14.6); RBC Distribution Width SD 57.9 fl (35.1-43.9); Red Blood Count 4.82 M/mm3 (4.2-5.4); White Blood Count 11.7 K/mm3 (4.4-11.0)
[2019-08-23 17:52] LABS: Anion Gap 5 (5-15); BUN 27 mg/dL (7-18); CRP 4.26 mg/L (0.0-3.0); Calcium,Total 9.5 mg/dL (8.5-10.1); Chloride 107 mmol/L (98-107); Creatinine, Serum 1.23 mg/dL (0.55-1.02); EST Glomerular Filtration Rate 46 mL/min (>60); Est Glom Filt Rate - Afr Amer 56 mL/min (>60); Glucose 107 mg/dL (74-106); Potassium 4.5 mmol/L (3.5-5.1); Sodium Level 141 mmol/L (136-145); Uric Acid 6.6 mg/dL (2.6-6.0)
[2019-08-23 17:59] LABS: Erythrocyte Sedimentation Rate 38 mm/hr (0-30)
[2019-08-23 18:06] LABS: D-Dimer Quantitative (DVT/PE) 1.48 FEU/ug/m (0.27-0.49)
== END ==
PROVIDERS: Family Provider Family Medicine Geriatric Medicine; PCP Family Medicine Geriatric Medicine; Referring Provider Family Medicine Geriatric Medicine; Visit Provider Family Medicine Geriatric Medicine
DX: M10.9 Gout, unspecified (principal); M79.602 Pain in left arm
CPT/HCPCS: 36415; 73630; 80048; 84550; 85025; 85379; 85652; 86140

== ENCOUNTER → 2019-12-07 11:27 | Outpatient (CLI) | payer MEDICARE, SELFPAY ==
[2019-12-07 12:23] LABS: Absolute Lymphocyte Count 1.59 X10^3/uL (0.83-4.51); Absolute Neutrophil Count 7.3 X10^3/uL (2.0-7.7); Basophil# 0.07 X10^3/uL; Basophil% 0.7 % (0-1); Eosinophil# 0.16 X10^3/uL; Eosinophils% 1.6 % (0-5); Hematocrit 44.6 % (37-47); Hemoglobin 13.9 g/dL (12.0-15.0); Lymphocyte # 1.59 X10^3/ul (4.0); Lymphocyte % 16.1 % (19-41); Mean Corp Hgb Conc 31.2 g/dL (32-36); Mean Corpuscular Hgb 30.8 pg (27.0-32.0); Mean Corpuscular Volume 98.7 fL (81-99); Mean Platelet Vol. 10.3 fl (6.2-12.0); Monocyte# 0.78 X10^3/uL; Monocyte% 7.9 % (0-10); NRBC Flagged by Analyzer 0 % (0-5); Neutrophil # 7.25 X10^3/uL (2.7-7.7); Neutrophil % 73.2 % (47-70); Platelet Count 334 K/mm3 (150-450); RBC Distribution Width CV 13.2 % (11.6-14.6); RBC Distribution Width SD 47.5 fl (35.1-43.9); Red Blood Count 4.52 M/mm3 (4.2-5.4); White Blood Count 9.9 K/mm3 (4.4-11.0)
[2019-12-07 12:56] LABS: ALB/GLOB Ratio 0.7 RATIO (0.9-2.4); AST(SGOT) 18 U/L (15-37); Alanine Aminotransfer ALT/SGPT 20 U/L (13-56); Albumin, Serum 3.1 g/dL (3.2-5.0); Alkaline Phosphatase 106 U/L (45-117); Anion Gap 5 (5-15); BUN 34 mg/dL (7-18); BUN/Creat Ratio 23.6 RATIO (10-20); Calcium,Total 8.8 mg/dL (8.5-10.1); Chloride 101 mmol/L (98-107); Creatinine, Serum 1.44 mg/dL (0.55-1.02); EST Glomerular Filtration Rate 38 mL/min (>60); Est Glom Filt Rate - Afr Amer 46 mL/min (>60); Globulin 4.2 g/dL (2.2-4.2); Glucose 99 mg/dL (74-106); Potassium 4.5 mmol/L (3.5-5.1); Protein, Total 7.3 g/dL (6.4-8.2); Sodium Level 138 mmol/L (136-145); Thyroid Stim Hormone (TSH) 1.81 uIU/mL (0.358-3.74)
== END ==
PROVIDERS: PCP Family Medicine Geriatric Medicine; Visit Provider Family Medicine Geriatric Medicine
DX: E55.9 Vitamin D deficiency, unspecified (principal); R53.83 Other fatigue
CPT/HCPCS: 36415; 80053; 82306; 84443; 85025

== ENCOUNTER → 2020-01-25 13:13 | Outpatient (CLI) | payer MEDICARE, SELFPAY ==
--- NOTE | 2020-01-25 13:25 | RAD_ITS ---
STUDY: X-RAY - UNILATERAL RIBS ( LEFT ) WITH CHEST REASON FOR EXAM: Female, 69 years old. LEFT RIB PAIN S/P FALL COUPLE WEEKS AGO TECHNIQUE - RIBS: 4 view(s) of the ribs. TECHNIQUE - CHEST: PA and lateral views of the chest. COMPARISON: PA and lateral chest x-ray May 22, 2019. FINDINGS - RIBS: There is a mildly displaced fracture of the lateral aspect of the left seventh rib. Slight deformity also seen at the lateral margin of the eighth rib, but a discrete fracture line is not apparent at that site. FINDINGS - CHEST: Aeration in the lung bases is improved, but some stranding due to crowding in the lung bases persist. Small calcified granuloma also again seen in the lateral right lung base. There is no demonstrated pleural abnormality. Normal size heart. Normal mediastinum and leonid. Normal visualized pulmonary arteries. Normal visualized aortic arch and descending thoracic aorta. There is a stable mild levoscoliosis of the thoracic spine. There is mild degenerative osteoarthritis of the bilateral shoulders. There is a persistent moderate size retrocardiac hiatal hernia. RAD/Ribs Uni Min 3V w/PA Chest IMPRESSION: RIBS: Mildly displaced fracture of the lateral left seventh rib. CHEST: 1. Bibasilar subsegmental atelectasis is mildly improved. 2. Calcified granuloma again seen in the right lung base. 3. Moderate size hiatal hernia unchanged. Electronically Signed: Eric Damon MD at 15:15 EDT , Service support ,
== END ==
PROVIDERS: PCP Family Medicine Geriatric Medicine; Referring Provider Family Medicine Geriatric Medicine; Visit Provider Family Medicine Geriatric Medicine
DX: R07.89 Other chest pain (principal)
CPT/HCPCS: 71101

== ENCOUNTER 2020-02-28 01:27 | Inpatient (IN) | payer MEDICARE, SELFPAY ==
[2020-02-28] VITALS (14 sets, daily range): BP systolic 75–140; BP diastolic 44–89; PULSE 71–91; RESP 18–22; TEMP 36.6–37.2; O2SAT 88–96; BMI 44.3; BMI 45.1; BMI 45.2
--- NOTE | 2020-02-28 01:48 | RAD_ITS ---
STUDY: X-RAY CHEST REASON FOR EXAM: Female, 69 years old. chronic sob TECHNIQUE: Single AP portable view of the chest. COMPARISON: 05/22/2019 FINDINGS: Subsegmental atelectases are noted in the left lung base. Calcified granulomas seen in the right lung base measures 5 mm. There is no demonstrated pleural abnormality. Normal size heart. Normal mediastinum and lenoid. Normal visualized pulmonary arteries. Normal visualized aortic arch and descending thoracic aorta. Normal visualized thoracic spine. There is degenerative osteoarthritis of the bilateral shoulders. There is a hypervascular area measures 8.5 cm. RAD/Chest 1 View (Portable) IMPRESSION: Degenerative changes, as described above. No demonstrated acute cardiopulmonary process. Electronically Signed: La Chaney, at 2:58 EDT Tel , Service support ,
--- NOTE | 2020-02-28 01:50 | RAD_ITS ---
STUDY: X-RAY - RIGHT FOOT CLINICAL: Female, 69 years old. Right foot pain TECHNIQUE: 3 view(s) of the foot. COMPARISON: None. FINDINGS: Normal talus, calcaneus, and tarsal bones. There is degenerative arthrosis of the tarsal and tarsometatarsal articulations. There is demineralization of the metatarsi. There is degenerative arthrosis of the metatarsophalangeal joint of the hallux . Normal tibial and fibular sesamoid bones. There is degenerative arthrosis of the interphalangeal joint of the great toe. Normal phalanges of the great toe. Normal second through fifth metatarsophalangeal joints. Normal interphalangeal joints and phalanges of the lesser toes. The soft tissue structures are unremarkable. RAD/Foot min 3 Views IMPRESSION: Degenerative arthrosis of the foot. Electronically Signed: La Chaney, at 3:11 EDT Tel , Service support ,
--- NOTE | 2020-02-28 01:51 | ED.DCSUM_ITS ---
History of Present Illness Chief Complaint: Cellulitis Detail of Chief Complaint: right leg pain/rash Informant: Patient, Family Onset: - - unk -- see below Context: Gradual Onset Timing: Continuous Quality: sore/achy Location: RLE Current Severity: Moderate Maximum Severity: Moderate Worsened by: palpation, movement Relieved by: rest and remaining still Associated Symptoms: weak. months of cough and wheezing that pt relates to her COPD, no fevers. Narrative: Patient is brought in by family, patient is very difficult with staff prior to my evaluation because she does not want to be here but admits that she agreed to come at her family's encouragement. She is mainly here because of painful redness to her right lower extremity. She also has a cough and shortness of breath but it is apparent that that is chronic and has been an issue for the last several months. She denies any worsening acutely and does not feel that she needs a breathing treatment. She apparently had a fall around 3 days ago. Family states she lost her balance. Patient states she has been feeling weak since then, and thinks she may have fallen partly due to that. She denies any prodromal symptoms such as chest pain, near syncope, palpitations. She takes no anticoagulants and has a history of paroxysmal atrial fibrillation for which she has been on rhythm control apparently. She fell and injured her right knee but she has been able to walk on it since then without any significant issue. She did not noticed the redness in her proximal right lower leg until then. The daughter shows me an area on her proximal medial calf where it started, now it is spread. The patient has no idea how long this is been there but states that she did notice some sort wounds on her right foot a couple weeks ago. She states she is not a diabetic. - Past Medical History (1) Debility Status: Chronic (2) Anxiety Status: Chronic (3) Cardiomyopathy, dilated Status: Chronic (4) Chronic respiratory failure with hypoxia Status: Chronic (5) Depression Status: Chronic (6) Dysmetabolic syndrome Status: Chronic (7) GERD (gastroesophageal reflux disease) Status: Chronic (8) Hypertension Status: Chronic (9) custodial current use of antiarrhythmic medical therapy Status: Chronic (10) 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 Status: Chronic (11) Non-sustained ventricular tachycardia Status: Chronic (12) ESPERANZA (obstructive sleep apnea) Status: Chronic (13) Osteoarthritis Status: Chronic (14) Paroxysmal atrial fibrillation Status: Chronic (15) Restless leg syndrome Status: Chronic (16) COPD (chronic obstructive pulmonary disease) Status: Suspected (17) Chronic combined systolic and diastolic CHF (congestive heart failure) Status: Resolved (18) Noncompliance Status: Inactive Comment: with CPAP and physician follow and likely medication as well Past Medical History - Allergies and Home Meds Allergies/Adverse Reactions: Allergies doxycycline Allergy (Severe, Verified 02/28/20 01:32) ulcerations of lips and mouth gabapentin Adverse Reaction (Severe, Verified 02/28/20 01:32) GI upset, Vomiting ciprofloxacin [From Cipro] Adverse Reaction (Intermediate, Verified 02/28/20 01:32) Other messes with her heart medicine Primary Care Physician: Darinel Callejas Chi, MD [Primary Care Provider] - Surgical History: hysterectomy, - - tubal ligation, oophorectomy, knee surgery, status post cardiac radiofrequency ablation, cardiac catheterization, Left hip ORIF intramedullary nail. Lives: With Family Smoking Status: Former smoker - Family History Maternal Family History: Family History (Last Reviewed 01/23/20 @ 09:20 by Emilee Galeano) Mother Heart disease Arthritis blood clots Hypertension Father arthrits Cancer Brother Cancer Aunt Breast cancer Depression Ovarian cancer Grandmother CVA (cerebral vascular accident) Aunt Diabetes Family History: Reports: Heart Disease, Hypertension, - - Blood clot Paternal Family History: Family History (Last Reviewed 01/23/20 @ 09:20 by Emilee Galeano) Mother Heart disease Arthritis blood clots Hypertension Father arthrits Cancer Brother Cancer Aunt Breast cancer Depression Ovarian cancer Grandmother CVA (cerebral vascular accident) Aunt Diabetes Family History: Reports: Cancer - Lung cancer Review of Systems General: Reports: Malaise. Denies: Chills, Fever, Sweats Eyes: Denies: Visual changes - bilaterally, Diplopia ENT: Denies: Rhinorrhea, Sore throat Cardiovascular: Denies: Chest pain, Palpitations Respiratory: Reports: Dyspnea, Cough, Dyspnea on exertion. Denies: Sputum, Orthopnea Gastrointestinal: Denies: Abdominal pain, Nausea, Vomiting, Diarrhea, Melena, Hematochezia Genitourinary: Denies: Dysuria, Hematuria, Frequency Musculoskeletal: Reports: Extremity Pain. Denies: Neck pain Skin: Reports: Rash, Wounds Neurological: Denies: Headache, Weakness, Numbness Physical Exam Vital Signs/Narrative: Vital Signs Temp Pulse Resp BP Pulse Ox 02/28/20 01:31 99.0 F 88 20 H 138/72 H 95 02/28/20 01:28 99.0 F 91 20 H 138/72 H 88 Inital Vital Signs reviewed: Yes General: Well nourished, Well developed, Obese, No Acute Distress Head: Normocephalic, Atraumatic Eyes: Perrl, EOMI ENT: Moist mucous membranes, No rhinorrhea Neck: Supple, Nontender, No lymphadenopathy Cardiovascular: Regular rate, Regular rhythm, No murmurs Respiratory: No distress, Chest nontender, Wheezing - slight upper lobes end- exp; otherwise, clear. Negative for: Rales, Rhonchi Abdomen: Soft, Nontender, Nondistended, Normal bowel sounds Back: Nontender, Normal Inspection Extremities: Tenderness - Throughout erythematous right lower extremity areas that appears indurated and cellulitic. Good range of motion throughout all joints without effusions or limitation due to pain. All compartments soft and nondistended. No subcutaneous emphysema palpable. No necrotic tissue. Cellulitis appears to be in the foot, anterior-medial right lower leg and into the posterior distal thigh. No palpable cords. Unable to definitively rule out inguinal lymphadenopathy due to obesity. Skin: Rash - Cellulitis to right lower extremity, from foot to posterior thigh. It is not stocking glove in distribution throughout the lower leg, mostly anterior medial. No abscesses. Several small wounds on the toes, numbers 2 and 5, and a wound in the webspace between 4-5. No purulent drainage from anything, there is some scabbing and they do not appear ulcerated at this time. Fairly benign plantar aspect. Mild swelling at the dorsal forefoot diffusely with erythema and tenderness., Trauma - Ecchymoses on mid and low back, nontender, do not appear acute. No signs of injury elsewhere. Neurological: Alert, Oriented x3, Cranial nerves II-XII grossly intact, Normal Strength, Normal Sensation Psychological: Normal affect, Normal Mood Diagnostic/Tx/Re-eval Laboratory Tests 02/28/20 02/28/20 02/28/20 Range/Units 02:00 02:00 02:00 WBC 16.2 H (4.4-11.0) K/mm3 RBC 4.41 (4.2-5.4) M/mm3 Hgb 14.0 (12.0-15.0) g/dL Hct 44.4 (37-47) % MCV 100.7 H (81-99) fL MCH 31.7 (27.0-32.0) pg MCHC 31.5 L (32-36) g/dL RDW Std Deviation 53.5 H (35.1-43.9) fl RDW Coeff of Ankit 14.8 H (11.6-14.6) % Plt Count 281 (150-450) K/mm3 MPV 9.8 (6.2-12.0) fl Immature Gran % (Auto) 0.400 (0.0-0.9) % Neut % (Auto) 89.7 H (47-70) % Lymph % (Auto) 3.9 L (19-41) % Nelson % (Auto) 5.6 (0-10) % Eos % (Auto) 0.2 (0-5) % Baso % (Auto) 0.2 (0-1) % Absolute Neuts (auto) 14.5 H (2.0-7.7) X10^3/uL Absolute Lymphs (auto) 0.63 L (0.83-4.51) X10^3/uL Nucleated RBC % 0 (0-5) % ESR 27 (0-30) mm/hr Sodium 139 (136-145) mmol/L Potassium 4.1 (3.5-5.1) mmol/L Chloride 104 (98-107) mmol/L Carbon Dioxide 33.0 H (21.0-32.0) mmol/L Anion Gap 2 L (5-15) BUN 33 H (7-18) mg/dL Creatinine 1.45 H (0.55-1.02) mg/dL Estim Creat Clear Calc 31.62 ml/min Est GFR (MDRD) Af Amer 46 L (>60) mL/min Est GFR (MDRD) Non-Af 38 L (>60) mL/min BUN/Creatinine Ratio 22.8 H (10-20) RATIO Glucose 121 H (74-106) mg/dL Lactic Acid 1.3 (0.4-1.9) mmol/L Calcium 9.8 (8.5-10.1) mg/dL C-React Prot Ext Range 29.80 H (0.0-3.0) mg/L - Medical Decision Making Patient does have a leukocytosis. I think this correlates with her infection in her right lower extremity. Treated empirically with Zosyn. No history of MRSA or specific risk. I think this is significant in distribution and severity and I recommend admission with IV antibiotics. CRP elevated, ESR normal, and foot x-ray nonspecific. No definitive evidence for osteomyelitis although this is unable to be definitively ruled out at this time, especially with unknown duration of symptoms/wound/infection. I do not think any of these findings are due to trauma. She came in talking about pulmonary symptoms, but on further exploration it seems that these are not acute and have been present for months and stable during that period of time. Since she will be admitted and is symptomatic however, and presents during the national coronavirus emergency declaration/pandemic, COVID test is sent and pending. Assuming it is negative, will send her to medical surgical floor. She meets criteria for Sirs/sepsis due to transient borderline tachycardia with heart rate 91. Her lactate is within normal limits. Blood culture sent prior to antibiotics. ED Disposition - Plan for ED Patient: Disposition: Acute Care Hospital [facility] Diagnosis: Cellulitis of right lower extremity, COPD (chronic obstructive pulmonary disease), Sepsis Referrals: Darinel Callejas Chi, MD [Primary Care Provider] -
[2020-02-28] MEDS: Morphine 2 MG/ML Syringe IV (02:15)
[2020-02-28 02:22] LABS: Absolute Lymphocyte Count 0.63 X10^3/uL (0.83-4.51); Absolute Neutrophil Count 14.5 X10^3/uL (2.0-7.7); Basophil# 0.04 X10^3/uL; Basophil% 0.2 % (0-1); Eosinophil# 0.03 X10^3/uL; Eosinophils% 0.2 % (0-5); Hematocrit 44.4 % (37-47); Lymphocyte # 0.63 X10^3/ul (4.0); Lymphocyte % 3.9 % (19-41); Mean Corp Hgb Conc 31.5 g/dL (32-36); Mean Corpuscular Hgb 31.7 pg (27.0-32.0); Mean Corpuscular Volume 100.7 fL (81-99); Mean Platelet Vol. 9.8 fl (6.2-12.0); Monocyte% 5.6 % (0-10); NRBC Flagged by Analyzer 0 % (0-5); Neutrophil # 14.53 X10^3/uL (2.7-7.7); Neutrophil % 89.7 % (47-70); Platelet Count 281 K/mm3 (150-450); RBC Distribution Width CV 14.8 % (11.6-14.6); RBC Distribution Width SD 53.5 fl (35.1-43.9); Red Blood Count 4.41 M/mm3 (4.2-5.4); White Blood Count 16.2 K/mm3 (4.4-11.0)
[2020-02-28 02:33] LABS: Erythrocyte Sedimentation Rate 27 mm/hr (0-30)
[2020-02-28 02:40] LABS: Anion Gap 2 (5-15); BUN 33 mg/dL (7-18); BUN/Creat Ratio 22.8 RATIO (10-20); Calcium,Total 9.8 mg/dL (8.5-10.1); Chloride 104 mmol/L (98-107); Creatinine, Serum 1.45 mg/dL (0.55-1.02); EST Glomerular Filtration Rate 38 mL/min (>60); Est Glom Filt Rate - Afr Amer 46 mL/min (>60); Estimated Creatinine Clearance 31.62 ml/min; Glucose 121 mg/dL (74-106); Potassium 4.1 mmol/L (3.5-5.1); Sodium Level 139 mmol/L (136-145)
[2020-02-28 02:47] LABS: Lactic Acid 1.3 mmol/L (0.4-1.9)
--- NOTE | 2020-02-28 03:07 | HP.PCM_ITS ---
Problem List (1) Sepsis Status: Acute (2) Debility Status: Chronic (3) Sleep apnea Status: Chronic (4) Atrial fibrillation Status: Chronic (5) Vitamin D deficiency Status: Chronic (6) Allergic rhinitis Status: Chronic (7) Restless leg syndrome Status: Chronic (8) Cellulitis of right lower extremity Status: Acute (9) COPD (chronic obstructive pulmonary disease) Status: Chronic (10) Sepsis Status: Acute (11) Cardiomyopathy, dilated Status: Chronic (12) ESPERANZA (obstructive sleep apnea) Status: Chronic (13) Chronic respiratory failure with hypoxia Status: Chronic (14) Anxiety Status: Chronic (15) Depression Status: Chronic (16) Osteoarthritis Status: Chronic (17) Pulmonary nodules Status: Chronic (18) Left ventricular hypertrophy Status: Chronic (19) Back pain Status: Chronic (20) Super obesity Status: Chronic (21) GERD (gastroesophageal reflux disease) Status: Chronic (22) Weakness Status: Acute (23) Shortness of breath Status: Chronic (24) Non-sustained ventricular tachycardia Status: Chronic (25) Dysmetabolic syndrome Status: Chronic (26) Hypertension Status: Chronic (27) 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 Status: Chronic (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 fib; former smoker; CHF and COPD on home oxygen who presents to the emergency department with 2-day history of redness of the right lower extremities. Associated with her symptoms is swelling; pain and increase warmth of her right lower extremities. Three days ago she fell. Also she has had multiple falls recently. Patient reported that she has been falling because she does not have muscles in her leg. Reportedly her oxygen saturation on home pulse ox machine has been low. Patient deferred questions to her daughter. Initial pulse at emergency department was 91. White count was 16.2. Past Medical History Past Medical History (Chronic Problems): Chronic Problems (Last Reviewed 01/23/20 @ 09:20 by Emilee Galeano) Debility (Chronic) Sleep apnea (Chronic) Atrial fibrillation (Chronic) Vitamin D deficiency (Chronic) Allergic rhinitis (Chronic) Restless leg syndrome (Chronic) COPD (chronic obstructive pulmonary disease) (Chronic) Cardiomyopathy, dilated (Chronic) ESPERANZA (obstructive sleep apnea) (Chronic) Chronic respiratory failure with hypoxia (Chronic) Anxiety (Chronic) Depression (Chronic) Osteoarthritis (Chronic) Pulmonary nodules (Chronic) Left ventricular hypertrophy (Chronic) Back pain (Chronic) Super 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) GERD (gastroesophageal reflux disease) (Chronic) Shortness of breath (Chronic) Non-sustained ventricular tachycardia (Chronic) Dysmetabolic syndrome (Chronic) Hypertension (Chronic) 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) jail current use of antiarrhythmic medical therapy (Chronic) Paroxysmal atrial fibrillation (Chronic) Asthma (Chronic) Medical History: Medical History (Last Reviewed 02/28/20 @ 04:[address] William Cabrera MD) Cardiomyopathy, dilated (Chronic) I42.0 Chronic combined systolic and diastolic CHF (congestive heart failure) (Resolved) I50.42 Non-sustained ventricular tachycardia (Chronic) I47.2 Dysmetabolic syndrome (Chronic) E88.81 Hypertension (Chronic) I10 Paroxysmal atrial fibrillation (Chronic) I48.0 Asthma (Chronic) J45.909 COPD (chronic obstructive pulmonary disease) (Suspected) J44.9 Chronic back pain M54.9, G89.29 Chronic bronchitis J42 GERD (gastroesophageal reflux disease) K21.9 Kidney disease, chronic, stage III (GFR 30-59 ml/min) N18.3 blood clots Allergies doxycycline Allergy (Severe, Verified 02/28/20 01:32) ulcerations of lips and mouth gabapentin Adverse Reaction (Severe, Verified 02/28/20 01:32) GI upset, Vomiting ciprofloxacin [From Cipro] Adverse Reaction (Intermediate, Verified 02/28/20 01:32) Other messes with her heart medicine Home Medications: Ambulatory Orders Medication Instructions Recorded Albuterol Inhaler [Ventolin Hfa] 1 puff INHALATION Q4H PRN PRN 08/08/13 Fluticasone 0.05% [Flonase Nasal 1 spray NASAL DAILY 08/08/13 [place]] flecainide 150 mg tablet 150 mg PO BID 08/16/17 Venlafaxine HCl [Venlafaxine HCl 75 mg PO QHS 01/28/18 ER] Metoprolol Tartrate [Lopressor 25 mg PO BID 02/01/18 (beta bairon)] Acetaminophen [Tylenol] 1,000 mg PO Q8 05/13/19 Venlafaxine HCl [Venlafaxine HCl 150 mg PO DAILY 05/13/19 ER] Famotidine [Pepcid] 40 mg PO DAILY #30 tab 05/28/19 Nystatin Powder [Mycostatin Powder] 1 applic TOPICAL 0600,2200 bottle 05/28/19 Polyethylene Glycol 3350 [Miralax] 17 gm PO DAILY PRN PRN 02/28/20 Surgical History: Surgical History (Last Reviewed 02/28/20 @ 04:[address] William Cabrera MD) H/O cardiac radiofrequency ablation Onset Date: ~09/03/13 Z98.890 H/O hysterectomy with oophorectomy H/O tubal ligation Z98.51 History of knee surgery Z98.890 Surgical History: hysterectomy, - - tubal ligation, oophorectomy, knee surgery, status post cardiac radiofrequency ablation, cardiac catheterization, Left hip ORIF intramedullary nail. Psychiatric History: Anxiety, Depression, - - Non-compliance. 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 William Cabrera MD) Mother Heart disease Arthritis blood clots Hypertension Father arthrits Cancer Brother Cancer Aunt Breast cancer Depression Ovarian cancer Grandmother CVA (cerebral vascular accident) Aunt Diabetes History Items: Heart Disease, Hypertension, - - Blood clot Paternal Family History: Family History (Last Reviewed 02/28/20 @ 04:[address] William Cabrera MD) Mother Heart disease Arthritis blood clots Hypertension Father arthrits Cancer Brother Cancer Aunt Breast cancer Depression Ovarian cancer Grandmother CVA (cerebral vascular accident) Aunt Diabetes History Items: Cancer - Lung cancer Review of Systems Constitutional: Denies: Chills, Fever, Weight Change HEENT: Denies: Head Aches, Sinus Congestion, Sinus Drainage Cardiovascular: Denies: Chest Pain, Palpitations Respiratory: Reports: Cough - Chronic, Shortness of Breath - Chronic. Denies: Shortness of breath at rest, Sputum production Gastrointestinal: Denies: Abdominal Pain, Nausea, Vomiting Genitourinary: Denies: Dysuria Musculoskeletal: Reports: Leg Pain. Denies: Joint Pain, Joint Tenderness Skin: Reports: Skin Changes, Wounds Neurological: Denies: Numbness, Tingling, Focal weakness Psychiatric: Denies: Anxiety, Depression, Homicidal Ideations, Suicidal Ideations Hematologic/ Lymphatic: Denies: Easy Bruising, Easy Bleeding VTE Information - Inpt Only VTE Present on Admission: No VTE Mechan Device Prophylaxis: None VTE Pharm Prophylaxis ordered?: Yes Patient Problems: Active and Suspected Problems (Last Reviewed 01/23/20 @ 09:20 by Emilee Galeano) Cellulitis of right lower extremity (Acute) Sepsis (Acute) Sepsis (Acute) - Physical Exam Vitals/I&O's: Vital Signs Temp Pulse Resp BP Pulse Ox 98.8 F 81 18 117/44 L 93 02/28/20 02:31 02/28/20 02:31 02/28/20 02:31 02/28/20 02:31 02/28/20 02:31 Oxygen Flow Rate (L/min) 2 Oxygen Delivery Method Room Air Weight: 117.1 kg Body Mass Index (BMI) 44.3 Intake and Output for Last 24 Hours 02/26/20 02/27/20 02/28/20 23:59 23:59 23:59 Intake Total 100 / 100 Balance 100 / 100 General: Alert, Oriented x3, Cooperative HEENT: Atraumatic, PERRLA, EOMI, Normocephalic Neck: Supple, No JVD, Negative Carotid Bruits Lungs: Clear to auscultation, Normal air movement Cardiovascular: Regular rate, Regular Rhythm, Normal S1, Normal S2, No murmurs Abdomen: Bowel Sounds Present, Soft, Non Tender Extremities: Edema - Right leg and right foot, Tenderness - Right leg and right foot Skin: Ulcer/ Wound - Generalized skin; second digit of right foot. Open wound in the webspace of the fourth and fifth toe of the right foot. Increased warmth of right leg. Coolness of right foot., - - Erythema of right leg Musculoskeletal: No Tenderness to Palpation of Joints or Extremities Neurological: Cranial nerves II-XII grossly intact Psych/Mental Status: Normal Affect, Appropriate Laboratory Results 02/28/20 02:00: WBC 16.2 H, RBC 4.41, Hgb 14.0, Hct 44.4, MCV 100.7 H, MCH 31.7, MCHC 31.5 L, RDW Std Deviation 53.5 H, RDW Coeff of Ankit 14.8 H, Plt Count 281, MPV 9.8, Immature Gran % (Auto) 0.400, Neut % (Auto) 89.7 H, Lymph % (Auto) 3.9 L, [place] % (Auto) 5.6, Eos % (Auto) 0.2, Baso % (Auto) 0.2, Absolute Neuts (auto) 14.5 H, Absolute Lymphs (auto) 0.63 L, Nucleated RBC % 0, ESR 27 02/28/20 02:00: Sodium 139, Potassium 4.1, Chloride 104, Carbon Dioxide 33.0 H, Anion Gap 2 L, BUN 33 H, Creatinine 1.45 H, Estim Creat Clear Calc 31.62, Est GFR (MDRD) Af Amer 46 L, Est GFR (MDRD) Non-Af 38 L, BUN/Creatinine Ratio 22.8 H , Glucose 121 H, Calcium 9.8, C-React Prot Ext Range 29.80 H 02/28/20 02:00: Lactic Acid 1.3 02/28/20 02:04: COVID-19 ([facility]) Pending Assessment/Plan All Active Problems (Last Reviewed 01/23/20 @ 09:20 by Emilee Galeano) Cellulitis of right lower extremity (Acute) Sepsis (Acute) Sepsis (Acute) Hip fracture (Resolved) Chronic systolic heart failure (Resolved) Weakness (Acute) Chronic combined systolic and diastolic CHF (congestive heart failure) (Resolved) The patient is a 69 year old F with a significant history of asthma A. fib; former smoker; Heart failure with preserved ejection fraction (echo 05/14/2019) and COPD on home oxygen who presents emergency department with 2-day history of redness of the right lower extremities; swelling; pain and increase warmth of her right lower extremities; multiple falls and with a pulse of 91 and leukocyto sis. Sepsis secondary to cellulitis. White count is 16.2. Pulse of 91. Redness of right leg and open space/wound between fourth and fifth digits of the right foot; likely nidus. Also also on second digit of right foot; possible nidus. Zosyn was ordered at emergency department. Clindamycin IV and Ancef IV while inpatient ordered. Trend CBC and BMP. COPD Patient with a bicarbonate of 33 Does not appear to be in acute exacerbation Recommend follow-up outpatient with video operator. She sees Dr. Davis. Heart failure with preserved ejection fraction Echo on 05/14/2019. From Dr. Sutton's (cardiology) notes and from record that he reviewed at that time previously patient patient at some point in time had had left ventricular ejection fraction of 40%. However a follow-up echocardiogram showed overall left ventricular systolic function to be preserved. Again per Dr. Sutton's notes patient may have an element of diastolic mediated CHF. Does not appear to be an acute exacerbation. Recommend follow-up outpatient with cardiology Multiple falls Check vitamin D and vitamin B12. Atrial fibrillation Questionable. Review of cardiology notes (Dr. Sutton's note on 01/30/2018) patient had a consult monitor suggesting underlying SVT/atrial tachycardia. Flecainide and metoprolol continued. Patient is not on anticoagulation. Unclear whether it is related to multiple falls. Probable peripheral artery disease Patient with coolness of right foot and difficulty palpate arteries to right foot. Get NORMAN. DVT prophylaxis Subcutaneous Lovenox. Inpatient E&M: 14281 Init Hosp L3
[2020-02-28 03:21] LABS: Probe Check PASS; Specimen Processing Control PASS
--- NOTE | 2020-02-28 04:19 | ART_ITS ---
Reason For Study: cool right foot Procedure A bilateral lower extremity continuous wave Doppler with analog waveform analysis and ankle brachial indexes. Left Segmental Pressures Left posterior tibial artery = 146mmHg. Left dorsalis pedis artery = 145mmHg. The left dorsalis pedis waveforms are triphasic. The left posterior tibial artery waveforms are triphasic. Right Segmental Pressures Right brachial= 97mmHg. Right posterior tibial artery = 136mmHg. Right dorsalis pedis artery = 116mmHg. The right dorsalis pedis waveforms are triphasic. The right posterior tibial artery waveforms are triphasic. Indices The right ankle brachial index by the posterior tibial artery is 1.4. The right ankle brachial index by the dorsalis pedis is 1.2. The left ankle brachial index by the posterior tibial artery is 1.51. The left ankle brachial index by the dorsalis pedis is 1.49. Interpretation Summary No significant occlussive disease at rest with triphasic bilaterally and NORMAN 1.40 and 1.51. Peaked waveforms noted an may have some medial calcinosis. Ordering Physician: William Cabrera Performed By: MAGDI AVILA T
[2020-02-28] MEDS: Cefazolin 1 GM/50 ML BAG IV ×2 (04:48→23:11)
[2020-02-28] MEDS: Nystatin Powder 15gm Bottle 1 APPLIC TOPICAL ×2 (05:23→23:06)
[2020-02-28 06:02] LABS: Absolute Lymphocyte Count 0.78 X10^3/uL (0.83-4.51); Basophil# 0.04 X10^3/uL; Basophil% 0.3 % (0-1); Eosinophil# 0.01 X10^3/uL; Eosinophils% 0.1 % (0-5); Hematocrit 41.2 % (37-47); Hemoglobin 12.7 g/dL (12.0-15.0); Lymphocyte # 0.78 X10^3/ul (4.0); Lymphocyte % 4.9 % (19-41); Mean Corp Hgb Conc 30.8 g/dL (32-36); Mean Corpuscular Hgb 31.6 pg (27.0-32.0); Mean Corpuscular Volume 102.5 fL (81-99); Mean Platelet Vol. 9.5 fl (6.2-12.0); Monocyte# 0.99 X10^3/uL; Monocyte% 6.2 % (0-10); NRBC Flagged by Analyzer 0 % (0-5); Neutrophil # 13.96 X10^3/uL (2.7-7.7); Neutrophil % 87.9 % (47-70); Platelet Count 265 K/mm3 (150-450); RBC Distribution Width CV 14.7 % (11.6-14.6); RBC Distribution Width SD 54.7 fl (35.1-43.9); Red Blood Count 4.02 M/mm3 (4.2-5.4); White Blood Count 15.9 K/mm3 (4.4-11.0)
[2020-02-28 06:30] LABS: Anion Gap 4 (5-15); BUN 33 mg/dL (7-18); BUN/Creat Ratio 21.7 RATIO (10-20); Calcium,Total 9.4 mg/dL (8.5-10.1); Chloride 103 mmol/L (98-107); Creatinine, Serum 1.52 mg/dL (0.55-1.02); EST Glomerular Filtration Rate 36 mL/min (>60); Est Glom Filt Rate - Afr Amer 44 mL/min (>60); Estimated Creatinine Clearance 27.63 ml/min; Glucose 136 mg/dL (74-106); Potassium 4.2 mmol/L (3.5-5.1); Sodium Level 141 mmol/L (136-145)
--- NOTE | 2020-02-28 08:26 | PN_ITS ---
Progress Note This is a 69 years old female patient presented to the emergency room because of swelling and erythema on the posterior aspect of the right knee and right upper leg, found to have acute right lower extremity cellulitis with sepsis. Chest x- ray showed no acute findings. COVID-19 PCR was negative. She is on IV cefazolin and clindamycin. Hemodynamically stable. She does have chronic cold feet, NORMAN index ordered. According to the patient, she had no history of peripheral vascular disease. She is on home oxygen, not sure how much, second dana to COPD. Blood cultures pending. Plan to continue same treatment.
[2020-02-28] MEDS: oxyCODONE 5 MG Tablet PO (08:40)
[2020-02-28] MEDS: Flecainide 150 MG Tablet PO ×2 (08:41→22:59)
[2020-02-28] MEDS: Venlafaxine XR 150 MG Capsule PO (08:41)
[2020-02-28] MEDS: Famotidine 20 MG Tablet 40 MG PO (08:41)
[2020-02-28] MEDS: Enoxaparin 40 MG/0.4 ML Syringe SC (08:42)
--- NOTE | 2020-02-28 10:01 | NURSING ---
Therapy was in working with pt, toileted pt and patient is now sitting up in chair.
[2020-02-28] MEDS: Metoprolol Tartrate 25 MG Tablet PO ×2 (10:27→22:59)
[2020-02-28 10:57] LABS: Vitamin B12 250 pg/mL (211-911)
--- NOTE | 2020-02-28 12:30 | CASEMGMT ---
Addendum entered by Marcellus Palomino 02/29/20 13:20: Attempted to contact pt's daughter, Samantha, again. No answer. VM message left for her to return call to RN STEFANI. Phone number provided. Original Note: RN CM RUSSIAN LANGUAGE INSTRUCTOR CM to room to meet with patient for initial transition planning/care coordination assessment. RN CM introduced self and role at [facility]. Pt voices understanding and consents to assessment at this time. Pt sitting up in chair in room in no distress at this time. Pt is A/O at this time and answers all questions appropriately. Care providers, pharmacy, and demographics verified/updated at this time. Pt not able to recall details for some of the following information and requests RN CM call and talk with her daughter. Call placed to Samantha at this time. No answer. VM left for Samantha to return call to DARLING KO PCP: Dr Callejas. Pt states she would like to switch PCP's. Given list of local PCP's Specialists: Dr Vance--pain mgmt. Does not remember if she sees other specialists. [facility] Insurance: [facility] Prescription Benefit: Yes, but pt states It's not very good Living Will/HPOA: LNOK: Daughter, Samantha, and son, Orlando Byrd Living Arrangements: Lives in mobile home w/daughter (who is in W/C) and 26/27 yr-old granddaughter w/a ramp entrance. Pt independent w/ADL's and she, her daughter, and granddaughter all help share home mgmt tasks. Transportation: Daughter, Samantha DME: Has cane and walker. Has home O2 through [facility] via n/c. Call placed to [facility] and spoke w/Diane. She states current Home O2 orders are for 4 L/M continuously. Pt does not remember what other DME she has and asks for DARLING KO to ask her daughter. HHC/SNF: [facility]. PLAN: TBD. Pt states would prefer to return home, but if her daughter feels she should go to a SNF, she would be agreeable. Awaiting return call from daughter to complete assessment and discuss discharge plan. Teena PARSON RN, CM
[2020-02-28] MEDS: Ipratropium/Albuterol Sulfate 3 ML AMPUL.NEB INHALATION ×2 (13:19→19:26)
--- NOTE | 2020-02-28 13:19 | CPS ---
Upon entering room, patient had nasal cannula at 2lpm resting under her chin. Pulse ox revealed 89%. Patient stated she is 'supposed to wear oxygen at home.' Patient did not appear SOB. Patient stated she is 'supposed to take breathing treatments at home' also. Patient was asked and was agreeable to try to wear nasal cannula with an added bubble humidifier.
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
--- NOTE | 2020-02-28 15:56 | NURSING ---
Dr. Nobles made aware that pt BP low. Dr. Nobles wants this nurse to take it manually.
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
[2020-02-28] MEDS: Acetaminophen 500 MG Tablet 1000 MG PO (19:48)
[2020-02-28] MEDS: Venlafaxine XR 75 MG Capsule PO (22:59)
[2020-02-29] VITALS (10 sets, daily range): BP systolic 109–126; BP diastolic 55–74; PULSE 71–90; RESP 18–20; TEMP 36.3–36.8; O2SAT 82–100
[2020-02-29] MEDS: Ipratropium/Albuterol Sulfate 3 ML AMPUL.NEB INHALATION ×4 (01:37→19:23)
[2020-02-29] MEDS: Acetaminophen 500 MG Tablet 1000 MG PO (04:00)
[2020-02-29] MEDS: Nystatin Powder 15gm Bottle 1 APPLIC TOPICAL ×2 (05:45→21:32)
[2020-02-29 06:09] LABS: Absolute Lymphocyte Count 1.06 X10^3/uL (0.83-4.51); Absolute Neutrophil Count 8.6 X10^3/uL (2.0-7.7); Basophil# 0.03 X10^3/uL; Basophil% 0.3 % (0-1); Eosinophil# 0.04 X10^3/uL; Eosinophils% 0.4 % (0-5); Hematocrit 37.3 % (37-47); Hemoglobin 11.6 g/dL (12.0-15.0); Lymphocyte # 1.06 X10^3/ul (4.0); Lymphocyte % 9.7 % (19-41); Mean Corp Hgb Conc 31.1 g/dL (32-36); Mean Corpuscular Volume 102.8 fL (81-99); Mean Platelet Vol. 9.7 fl (6.2-12.0); Monocyte# 1.07 X10^3/uL; Monocyte% 9.8 % (0-10); NRBC Flagged by Analyzer 0 % (0-5); Neutrophil # 8.62 X10^3/uL (2.7-7.7); Neutrophil % 79.1 % (47-70); Platelet Count 240 K/mm3 (150-450); RBC Distribution Width CV 14.6 % (11.6-14.6); RBC Distribution Width SD 55.3 fl (35.1-43.9); Red Blood Count 3.63 M/mm3 (4.2-5.4); White Blood Count 10.9 K/mm3 (4.4-11.0)
--- NOTE | 2020-02-29 08:20 | PCM.PROGNOTE ---
Patient Problems: Active and Suspected Problems (Last Updated 02/28/20 @ 07:[address] Santosh Nobles MD) Cellulitis of right lower extremity (Acute) Sepsis (Acute) Subjective: Chief complaint: Follow-up after admission for acute right lower extremity cellulitis with sepsis. Patient seen and examined. No acute events overnight. Swelling and erythema of the right leg is improving, less pain. She denies any fever or chills. Denied any other complaints. She has been afebrile, blood pressure and heart rate are stable, pulse ox is 95% on 2 L and patient has been on oxygen at home. - Physical Exam Vitals/I&O's: Vital Signs Temp Pulse Resp BP Pulse Ox 98 F 71 18 110/61 95 02/29/20 02:13 02/29/20 02:13 02/29/20 02:13 02/29/20 02:13 02/29/20 02:13 Oxygen Flow Rate (L/min) 3 Oxygen Delivery Method Nasal Cannula Weight: 250 lb 14.177 oz Body Mass Index (BMI) 45.1 Intake and Output for Last 24 Hours 02/27/20 02/28/20 02/29/20 23:59 23:59 23:59 Intake Total 1252.25 / 1252.25 445.5 / 445.5 Output Total 250 / 250 Balance 1252.25 / 1252.25 195.5 / 195.5 General: Alert, Oriented x3, Cooperative, No apparent distress HEENT: Atraumatic, PERRLA, EOMI, Normocephalic Oral: Moist Mucosa, No Gingival or Mucosal Lesions/ Ulcerations Neck: Supple, No JVD, Negative Carotid Bruits, Trachea Midline, Thyroid Normal Size and Texture Lungs: Clear to auscultation, Normal air movement, No rhonchi, No wheeze, No rales, Diminished Cardiovascular: Regular rate, Regular Rhythm, Normal S1, Normal S2, PMI Normal Abdomen: Bowel Sounds Present, Soft, Non Tender, Non-Distended, No Hepato-splenomegaly Extremities: No clubbing, No cyanosis, No edema Skin: No rashes, No breakdown, - - Right leg: Erythema and swelling on the posterior and medial aspect of the right knee, no open wounds or drainage. Lymphatic: No Cervical, Supraclavicular, or Inguinal Adenopathy Neurological: Cranial nerves II-XII grossly intact, Neuro grossly intact Psych/Mental Status: Normal Affect, Appropriate, Alert and oriented to time, place, person, mood and affect Laboratory Results 02/28/20 05:35: Vitamin B12 250, Vitamin D 25-Hydroxy 39.0 02/29/20 05:58: WBC 10.9, RBC 3.63 L, Hgb 11.6 L, Hct 37.3, MCV 102.8 H, MCH 32.0, MCHC 31.1 L, RDW Std Deviation 55.3 H, RDW Coeff of Ankit 14.6, Plt Count 240, MPV 9.7, Immature Gran % (Auto) 0.700, Neut % (Auto) 79.1 H, Lymph % (Auto) 9.7 L, [place] % (Auto) 9.8, Eos % (Auto) 0.4, Baso % (Auto) 0.3, Absolute Neuts (auto) 8.6 H, Absolute Lymphs (auto) 1.06, Nucleated RBC % 0 Current Medications Acetaminophen (Tylenol) 1,000 mg PO Q8H PRN PRN PRN Reason: pain (1-10); fever >= 100.7F Last Admin: 02/29/20 04:00 Dose: 1,000 mg Documented by: Albuterol Sulfate (Ventolin Aerosols) 2.5 mg INHALATION Q2H PRN PRN PRN Reason: sob/wheezing Albuterol/Ipratropium (Duoneb) 3 ml INHALATION Q6H.RT [facility] Last Admin: 02/29/20 08:01 Dose: 3 ml Documented by: Dextrose (D50w Syringe) 0 gm IV X1 PRN; Protocol PRN Reason: Hypoglycemia Enoxaparin Sodium (Lovenox) 40 mg SC DAILY [facility] Last Admin: 02/28/20 08:42 Dose: 40 mg Documented by: Famotidine (Pepcid) 40 mg PO DAILY [facility] Last Admin: 02/28/20 08:41 Dose: 40 mg Documented by: Flecainide Acetate (Tambocor) 150 mg PO BID [facility] Last Admin: 02/28/20 22:59 Dose: 150 mg Documented by: Fluticasone Propionate (Flonase Nasal [place]) 1 spray NASAL DAILY [facility] Last Admin: 02/28/20 10:27 Dose: Not Given Documented by: Glucagon () 1 mg IM .X1 PRN PRN Reason: Hypoglycemia Cefazolin Sodium () 1 gm in 50 mls @ 150 mls/hr IV Q12 [facility] Last Infusion: 02/28/20 23:31 Dose: Infused Documented by: Clindamycin Phosphate 600 mg/ (Dextrose) 54 mls @ 100 mls/hr IV Q8 [facility] Last Infusion: 02/29/20 06:16 Dose: Infused Documented by: Sodium Chloride () 250 mls @ 15 mls/hr IV .[id number] PRN PRN Reason: Saline Flush Last Infusion: 02/29/20 06:16 Dose: 15 mls/hr Documented by: Sodium Chloride () 250 mls @ 15 mls/hr IV .[id number] PRN PRN Reason: Additional IVPB Infusion Melatonin (Melatonin) 3 mg PO QHS PRN PRN PRN Reason: INSOMNIA Metoprolol Tartrate (Lopressor (Beta Katerine)) 25 mg PO BID [facility] Last Admin: 02/28/20 22:59 Dose: 25 mg Documented by: Nystatin (Mycostatin Powder) 1 applic TOPICAL 0600,2200 [facility]; Protocol Last Admin: 02/29/20 05:45 Dose: 1 applicatio Documented by: Ondansetron HCl (Zofran) 4 mg IV Q8H PRN PRN PRN Reason: NAUSEA/VOMITING Oxycodone HCl (Oxyir) 5 mg PO Q12H PRN PRN PRN Reason: Pain Score 6-10/10 Last Admin: 02/28/20 08:40 Dose: 5 mg Documented by: Polyethylene Glycol (Miralax) 17 gm PO DAILY PRN PRN PRN Reason: Constipation Sodium Chloride () 10 - 40 ml IV UD PRN PRN Reason: SALINE FLUSH Venlafaxine HCl (Effexor Xr) 75 mg PO QHS [facility] Last Admin: 02/28/20 22:59 Dose: 75 mg Documented by: Venlafaxine HCl (Effexor Xr) 150 mg PO DAILY [facility] Last Admin: 02/28/20 08:41 Dose: 150 mg Documented by: Medical Necessity - Tobacco Use Smoking Status: Former smoker Assessment/Plan All Active Problems (Last Updated 02/28/20 @ 07:[address] Santosh Nobles MD) Cellulitis of right lower extremity (Acute) Sepsis (Acute) This is a 69 years old female patient presented to the emergency department because of redness and swelling of the right leg and around right knee, found to have acute right lower extremity cellulitis with sepsis. #1 acute right lower extremity cellulitis/sepsis: She is on IV cefazolin and clindamycin. She has been afebrile, leukocytosis resolved. Blood cultures pending. Vital signs are stable. Erythema and swelling of the right leg and around right knee is improving. Plan to continue same treatment, follow cultures, possible discharge tomorrow. #2 COPD/chronic respiratory failure: Patient on home oxygen but she is not sure how many liters. She mentioned that her breathing is at her baseline. Chest x-ray showed no acute findings. She is on DuoNeb every 6 hours and albuterol PRN. She has been on 3 L and she has been stable. Plan to continue same treatment. #3 stage III chronic kidney disease: Baseline creatinine has been around 1.3 to 1.6 mg/dL. Yesterday's creatinine is 1.52, stable at baseline. #4 chronic diastolic CHF: Clinically stable, compensated. She is only on metoprolol. #5 paroxysmal atrial fibrillation: Rate is controlled, heart rate stable. Continue flecainide and metoprolol for rate control. She is not on anticoagulation. #6 hypertension: Blood pressure stable, continue metoprolol. #7 depression/anxiety: Stable, continue venlafaxine. #8 DVT prophylaxis: Subcu Lovenox. This note was generated with [employer] dictation software. It may contain incorrect words, spelling, and punctuation that were not noted in checking the note before signing. Inpatient E&M: 83956 Subs Hosp L2
[2020-02-29] MEDS: Venlafaxine XR 150 MG Capsule PO (08:27)
[2020-02-29] MEDS: Flecainide 150 MG Tablet PO ×2 (08:27→21:31)
[2020-02-29] MEDS: Famotidine 20 MG Tablet 40 MG PO (08:27)
[2020-02-29] MEDS: Metoprolol Tartrate 25 MG Tablet PO ×2 (08:27→21:30)
[2020-02-29] MEDS: Fluticasone 0.05% 1 SPRAY NASAL.SRY NASAL (08:28)
[2020-02-29] MEDS: Cefazolin 1 GM/50 ML BAG IV ×2 (09:34→22:24)
[2020-02-29] MEDS: Enoxaparin 40 MG/0.4 ML Syringe SC (09:34)
--- NOTE | 2020-02-29 10:10 | CASEMGMT ---
Social Work Note ANGLE reviewed chart. Pt had APS report made in May from TCU. APS report was related to financial concerns. SW in to speak with pt. SW introduced self and role at [facility]. Pt is alert and orientated. Pt confirms that she still lives with her daughter. Pt states I own the property, after my , my daughter and granddaughter moved in with me. SW asked pt about relationship with her daughter. Pt states it is good, she helps out if I need it. SW asked pt about any financial concerns at this time. Pt denied any financial concerns. SW specifically asked pt about any financial concerns related to her daughter. Pt states no my check is directly deposited in my account and I am able to access my account and my money when I need it. Pt states that her daughter assists with paying the bills and pt is aware that her check goes to helping with the bills. Pt denied any financial concerns at his time, pt denied any additional issues or concerns at this time. SW asked pt about Advanced Directives. Pt states I think I have a will that states my daughter and granddaughter gets everything but I know I don't have the HCPOA or LW. SW informed pt that she can complete documents while she at [facility] and pt denied. Pt states I will take them home to complete. SW provided pt with Advanced Directives. Leanne Holder PARTS SALES ADVISOR, [employer]
--- NOTE | 2020-02-29 13:53 | CASEMGMT ---
RN CM back to discuss discharge instructions. Patient is unsure if she would want [facility] at discharge and want RN CM to talk to daughter. RN CM attempted to call daughter, no answer, voice message left with return contact information. CM will continue to follow this patient and plan for a safe discharge.
[2020-02-29] MEDS: Mupirocin Ointment 22gm Tube 1 APPLIC TOPICAL ×2 (15:42→21:29)
--- NOTE | 2020-02-29 15:55 | CASEMGMT ---
RN CM called to patient's room. Patient's daughter on patient's cell phone. RN CM asked if daughter would like HHC for therapy in the home or outpatient therapy. Daughter's refuses HHC or outpatient therapy. Daughter asked if patient would be able to go to TCU and it is TCU or bust. RN CM updated social work and called TCU. Patient is on do not take list. RN CM called and updated daughter that TCU is not available for at discharge. RN CM asked if they would like HHC or outpatient therapy again, and again daughter declined. RN CM updated that should they reconsider they can follow-up with PCP. RN CM asked if they would like another SNF and daughter states no. RN CM updated the patient and patient states that she needs to go home and doesn't want to go anywhere. RN CM updated patient should she reconsider to follow-up with PCP. Patient voiced understanding.
[2020-02-29] MEDS: oxyCODONE 5 MG Tablet PO (21:25)
[2020-02-29] MEDS: Venlafaxine XR 75 MG Capsule PO (21:31)
[2020-03-01 00:57] VITALS: PULSE 71; RESP 18
[2020-03-01] MEDS: Ipratropium/Albuterol Sulfate 3 ML AMPUL.NEB INHALATION ×2 (00:57→07:14)
[2020-03-01 01:50] VITALS: BP 129/71; PULSE 73; RESP 18; TEMP 36.6; O2SAT 100
[2020-03-01] MEDS: Acetaminophen 500 MG Tablet 1000 MG PO ×2 (02:48→13:20)
[2020-03-01] MEDS: Nystatin Powder 15gm Bottle 1 APPLIC TOPICAL (06:41)
[2020-03-01] MEDS: Mupirocin Ointment 22gm Tube 1 APPLIC TOPICAL ×2 (06:41→13:23)
[2020-03-01 07:14] VITALS: PULSE 69; RESP 18; O2SAT 96
--- NOTE | 2020-03-01 08:57 | VDLE_ITS ---
Reason For Study: swelling RIGHT GSV is normal. CFV is compressible, spontaneous, phasic, competent and demonstrates normal augmentation. FV is compressible, spontaneous, phasic, competent and demonstrates normal augmentation. POP V is compressible, spontaneous, phasic, competent and demonstrates normal augmentation. T/P Trunk is compressible. PTV is compressible. RT PerV is compressible. Procedure Exam performed portable in patient room. The exam was abbreviated due to the COVID 19 protocol. The exam was diagnostic. A preliminary report was called and/or faxed to [place] 3 extension service specialist in charge. Interpretation Summary There is no evidence of right lower extremity deep vein thrombosis. Right great saphenous vein appears patent and compressible segmentally. Abbreviated Covid-19 protocol Ordering Physician: Santosh Nobles Performed By: Shai Camargo RVT
[2020-03-01 09:17] VITALS: PULSE 84
[2020-03-01] MEDS: Venlafaxine XR 150 MG Capsule PO (09:17)
[2020-03-01] MEDS: Enoxaparin 30 MG/0.3 ML Syringe SC (09:17)
[2020-03-01] MEDS: Flecainide 150 MG Tablet PO (09:17)
[2020-03-01] MEDS: Fluticasone 0.05% 1 SPRAY NASAL.SRY NASAL (09:17)
[2020-03-01] MEDS: Metoprolol Tartrate 25 MG Tablet PO (09:17)
[2020-03-01] MEDS: Famotidine 20 MG Tablet PO (09:17)
[2020-03-01] MEDS: oxyCODONE 5 MG Tablet PO (09:28)
[2020-03-01] MEDS: Cefazolin 1 GM/50 ML BAG IV (09:32)
[2020-03-01 09:38] VITALS: BP 107/55; PULSE 84; RESP 18; TEMP 36.6; O2SAT 98
--- NOTE | 2020-03-01 11:04 | CASEMGMT ---
DARLING KO Note: Reviewed case with nursing and charge nurse. Plan is home on dc and HHC therapy is being declined. OT saw patient today and daily ADL's were independent or standby, and assist of 1 with nursing. Patient forgetful @ times. Discussed with nursing that recommendation is for patient to have 24 hr assist until able to be home alone safely and she will talk with daughter if pt is dc'd today. DARLING KO let nursing to know to notify CM if dc plans change or needs arise. Sheyla PARSON RN ACM
--- NOTE | 2020-03-01 11:11 | DCINST_ITS ---
- Discharge Diagnoses Current Active Problems: Current Active and Chronic Problems (Last Updated 02/28/20 @ 07:[address] Santosh Nobles MD) Cellulitis of right lower extremity (Acute) COPD (chronic obstructive pulmonary disease) (Chronic) Sepsis (Acute) You will use the following diet at home:: Regular Your food should be the consistency of: Regular Discharge Activity: Return to Normal Activity Weight Bearing Status: Weight bearing as tolerated Call your doctor if you observe: Fever of 101 or Higher, Shortness of breath, Dizziness, Fainting spells, Chest pain, Increased palpitations (irregular heartbeat), Uncontrolled pain Allergies/Adverse Reactions: Allergies doxycycline Allergy (Severe, Verified 02/28/20 01:32) ulcerations of lips and mouth gabapentin Adverse Reaction (Severe, Verified 02/28/20 01:32) GI upset, Vomiting ciprofloxacin [From Cipro] Adverse Reaction (Intermediate, Verified 02/28/20 01:32) Other messes with her heart medicine Medications to take at Discharge Albuterol Inhaler [Ventolin Hfa] 1 puff INHALATION Q4H PRN PRN 08/08/13 Fluticasone 0.05% [Flonase Nasal [place]] 1 spray NASAL DAILY 08/08/13 flecainide 150 mg tablet 150 mg PO BID 08/16/17 Venlafaxine HCl [Venlafaxine HCl ER] 75 mg PO QHS 01/28/18 Metoprolol Tartrate [Lopressor (beta bairon)] 25 mg PO BID 02/01/18 Acetaminophen [Tylenol] 1,000 mg PO Q8 05/13/19 Venlafaxine HCl [Venlafaxine HCl ER] 150 mg PO DAILY 05/13/19 Famotidine [Pepcid] 40 mg PO DAILY #30 tab 05/28/19 Nystatin Powder [Mycostatin Powder] 1 applic TOPICAL 0600,2200 bottle 05/28/19 Polyethylene Glycol 3350 [Miralax] 17 gm PO DAILY PRN PRN 02/28/20 Clindamycin [Cleocin] 450 mg PO TID #54 cap 03/01/20 Lactobacillus Acidophilus [Acidophilus] 1 tab PO BID #14 tab 03/01/20 The following prescriptions were given: Lactobacillus Acidophilus [Acidophilus] 1 tab PO BID #14 tab Prescription Printed Clindamycin [Cleocin] 450 mg PO TID #54 cap Prescription Printed Primary Care Physician: Darinel Callejas Chi, MD [Primary Care Provider] - Please follow up with your Primary Care Physician in: 1 week. Test Results: Test results from this visit will be discussed in further detail at your follow- up appointment, if applicable.
--- NOTE | 2020-03-01 13:10 | PCM.DC.SUM ---
Discharge Date and Diagnosis - Problem List Patient Problems: Active and Suspected Problems (Last Updated 02/28/20 @ 07:[address] Santosh Nobles MD) Cellulitis of right lower extremity (Acute) Sepsis (Acute) Date of Admission: 02/28/20 Date of Discharge: 03/01/20 - Primary Discharge Diagnosis Acute Problems: Active Problems (Last Updated 02/28/20 @ 07:[address] Santosh Nobles MD) #1 cellulitis of right lower extremity (Acute) #2 sepsis (Acute) #3 COPD/chronic respiratory failure. - Secondary Discharge Diagnosis Chronic Problems: Chronic Problems (Last Updated 02/28/20 @ 07:[address] Santosh Nobles MD) Debility (Chronic) Vitamin D deficiency (Chronic) Restless leg syndrome (Chronic) COPD (chronic obstructive pulmonary disease) (Chronic) Cardiomyopathy, dilated (Chronic) ESPERANZA (obstructive sleep apnea) (Chronic) Chronic respiratory failure with hypoxia (Chronic) Anxiety (Chronic) Depression (Chronic) Osteoarthritis (Chronic) Pulmonary nodules (Chronic) Left ventricular hypertrophy (Chronic) Back pain (Chronic) Chronic systolic heart failure (Chronic) GERD (gastroesophageal reflux disease) (Chronic) Chronic combined systolic and diastolic CHF (congestive heart failure) (Chronic) Non-sustained ventricular tachycardia (Chronic) Hypertension (Chronic) 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) [facility] current use of antiarrhythmic medical therapy (Chronic) Paroxysmal atrial fibrillation (Chronic) Asthma (Chronic) Hospital Course and Treatment Imaging Results: Clinical Impression(s) from Imaging Studies Chest X-Ray 02/28/20 01:48 IMPRESSION: Degenerative changes, as described above. No demonstrated acute cardiopulmonary process. Electronically Signed: La Chaney at 2:58 EDT Tel , Service support , Foot X-Ray 02/28/20 01:50 IMPRESSION: Degenerative arthrosis of the foot. Electronically Signed: La Chaney at 3:11 EDT Tel , Service support , Operations: None Procedures: None Summary of Care Provided: Patient seen and examined on the day of discharge and appeared to be stable to be discharged home. Swelling and erythema of the right leg and around the right knee improved. She has been afebrile. Her vital signs are stable. The patient is a 69 year old F presented to the emergency room because of redness and swelling of the right leg and around the right knee, found to have acute right extremity cellulitis with sepsis. She complained of right foot pain for which x-ray of the right foot done and showed degenerative arthrosis of the right foot, no fractures. She did have a skin fissure which is likely due to very dry skin. There was no evidence of infection on the foot. She was treated with IV cefazolin and IV clindamycin as well as IV fluids and pain medications. With treatment, her WBC went back to normal. She remained afebrile for more than 48 hours. Swelling and erythema of the right leg improved. Venous Doppler of the right leg done before discharge and there was no evidence of acute DVT based on preliminary report. Patient discharged home in a stable medical condition, discharged on clindamycin 450 mg p.o. 3 times daily to complete total of 7 days of treatment, prescribed with probiotics to decrease risk of C. difficile colitis, continued on her previous home medications without any changes, recommended follow-up with PCP in 1 week. Patient Problems: Active and Suspected Problems (Last Updated 02/28/20 @ 07:[address] Santosh Nobles MD) Cellulitis of right lower extremity (Acute) Sepsis (Acute) - Physical Exam Vitals/I&O's: Vital Signs Temp Pulse Resp BP Pulse Ox 97.9 F 84 18 107/55 L 98 03/01/20 09:38 03/01/20 09:38 03/01/20 09:38 03/01/20 09:38 03/01/20 09:38 Oxygen Flow Rate (L/min) 3 Oxygen Delivery Method Nasal Cannula Weight: 250 lb 14.177 oz Body Mass Index (BMI) 45.1 Intake and Output for Last 24 Hours 02/28/20 02/29/20 03/01/20 23:59 23:59 23:59 Intake Total 1252.25 / 1252.25 1432.0 / 1432.0 104 / 104 Output Total 250 / 250 Balance 1252.25 / 1252.25 1182.0 / 1182.0 104 / 104 General: Alert, Oriented x3, Cooperative, No apparent distress HEENT: Atraumatic, PERRLA, EOMI, Normocephalic Oral: Moist Mucosa, No Gingival or Mucosal Lesions/ Ulcerations Neck: Supple, No JVD, Negative Carotid Bruits, Trachea Midline, Thyroid Normal Size and Texture Lungs: Clear to auscultation, Normal air movement, No rhonchi, No wheeze, No rales Cardiovascular: Regular rate, Regular Rhythm, Normal S1, Normal S2, PMI Normal Abdomen: Bowel Sounds Present, Soft, Non Tender, Non-Distended, No Hepato-splenomegaly Extremities: No clubbing, No cyanosis, No edema Skin: - - Right leg: Erythema and swelling improved. Lymphatic: No Cervical, Supraclavicular, or Inguinal Adenopathy Neurological: Cranial nerves II-XII grossly intact, Neuro grossly intact Psych/Mental Status: Normal Affect, Appropriate Microbiology Past 72 Hours 02/28/20 02:00 Blood Culture (Wb) - Anticubital Left Blood Culture - Preliminary No growth in 48 hours. 02/28/20 02:05 Blood Culture (Wb) - Anticubital Right Blood Culture - Preliminary No growth in 48 hours. Current Medications Acetaminophen (Tylenol) 1,000 mg PO Q8H PRN PRN PRN Reason: pain (1-10); fever >= 100.7F Last Admin: 03/01/20 02:48 Dose: 1,000 mg Documented by: Albuterol Sulfate (Ventolin Aerosols) 2.5 mg INHALATION Q2H PRN PRN PRN Reason: sob/wheezing Albuterol/Ipratropium (Duoneb) 3 ml INHALATION Q6H.RT [facility] Last Admin: 03/01/20 07:14 Dose: 3 ml Documented by: Dextrose (D50w Syringe) 0 gm IV X1 PRN; Protocol PRN Reason: Hypoglycemia Enoxaparin Sodium (Lovenox) 30 mg SC DAILY [facility] Last Admin: 03/01/20 09:17 Dose: 30 mg Documented by: Famotidine (Pepcid) 20 mg PO DAILY [facility] Last Admin: 03/01/20 09:17 Dose: 20 mg Documented by: Flecainide Acetate (Tambocor) 150 mg PO BID [facility] Last Admin: 03/01/20 09:17 Dose: 150 mg Documented by: Fluticasone Propionate (Flonase Nasal [place]) 1 spray NASAL DAILY [facility] Last Admin: 03/01/20 09:17 Dose: 1 spray Documented by: Glucagon () 1 mg IM .X1 PRN PRN Reason: Hypoglycemia Cefazolin Sodium () 1 gm in 50 mls @ 150 mls/hr IV Q12 [facility] Last Infusion: 03/01/20 09:52 Dose: Infused Documented by: Clindamycin Phosphate 600 mg/ (Dextrose) 54 mls @ 100 mls/hr IV Q8 [facility] Last Infusion: 03/01/20 07:14 Dose: Infused Documented by: Sodium Chloride () 250 mls @ 15 mls/hr IV .[id number] PRN PRN Reason: Saline Flush Last Admin: 03/01/20 09:28 Dose: 15 mls/hr Documented by: Sodium Chloride () 250 mls @ 15 mls/hr IV .[id number] PRN PRN Reason: Additional IVPB Infusion Melatonin (Melatonin) 3 mg PO QHS PRN PRN PRN Reason: INSOMNIA Metoprolol Tartrate (Lopressor (Beta Katerine)) 25 mg PO BID [facility] Last Admin: 03/01/20 09:17 Dose: 25 mg Documented by: Mupirocin (Bactroban) 1 applic TOPICAL TID [facility]; Protocol Last Admin: 03/01/20 06:41 Dose: 1 applicatio Documented by: Nystatin (Mycostatin Powder) 1 applic TOPICAL 0600,2200 [facility]; Protocol Last Admin: 03/01/20 06:41 Dose: 1 applicatio Documented by: Ondansetron HCl (Zofran) 4 mg IV Q8H PRN PRN PRN Reason: NAUSEA/VOMITING Oxycodone HCl (Oxyir) 5 mg PO Q12H PRN PRN PRN Reason: Pain Score 6-10/10 Last Admin: 03/01/20 09:28 Dose: 5 mg Documented by: Polyethylene Glycol (Miralax) 17 gm PO DAILY PRN PRN PRN Reason: Constipation Sodium Chloride () 10 - 40 ml IV UD PRN PRN Reason: SALINE FLUSH Venlafaxine HCl (Effexor Xr) 75 mg PO QHS [facility] Last Admin: 02/29/20 21:31 Dose: 75 mg Documented by: Venlafaxine HCl (Effexor Xr) 150 mg PO DAILY [facility] Last Admin: 03/01/20 09:17 Dose: 150 mg Documented by: Discharge Activity: Return to Normal Activity Weight Bearing Status: Weight bearing as tolerated Call your doctor if you observe: Fever of 101 or Higher, Shortness of breath, Dizziness, Fainting spells, Chest pain, Increased palpitations (irregular heartbeat), Uncontrolled pain Home Medications: Medications to take at Discharge Albuterol Inhaler [Ventolin Hfa] 1 puff INHALATION Q4H PRN PRN 08/08/13 Fluticasone 0.05% [Flonase Nasal [place]] 1 spray NASAL DAILY 08/08/13 flecainide 150 mg tablet 150 mg PO BID 08/16/17 Venlafaxine HCl [Venlafaxine HCl ER] 75 mg PO QHS 01/28/18 Metoprolol Tartrate [Lopressor (beta katerine)] 25 mg PO BID 02/01/18 Acetaminophen [Tylenol] 1,000 mg PO Q8 05/13/19 Venlafaxine HCl [Venlafaxine HCl ER] 150 mg PO DAILY 05/13/19 Famotidine [Pepcid] 40 mg PO DAILY #30 tab 05/28/19 Nystatin Powder [Mycostatin Powder] 1 applic TOPICAL 0600,2200 bottle 05/28/19 Polyethylene Glycol 3350 [Miralax] 17 gm PO DAILY PRN PRN 02/28/20 Clindamycin [Cleocin] 450 mg PO TID #54 cap 03/01/20 Lactobacillus Acidophilus [Acidophilus] 1 tab PO BID #14 tab 03/01/20 Following Prescrptions Were Given to Patient: Lactobacillus Acidophilus [Acidophilus] 1 tab PO BID #14 tab Prescription Printed Clindamycin [Cleocin] 450 mg PO TID #54 cap Prescription Printed Primary Care Physician: Darinel Callejas Chi, MD [Primary Care Provider] - Please follow up with your Primary Care Physician in: 1 week. Disposition: Home Minutes spent on discharge:: 28 Patient Condition:: Stable Medical Necessity - Tobacco Use Smoking Status: Former smoker Meaningful Use Info Meaningful Use Diagnoses (Choose all that apply): None applicable Inpatient E&M: 85798 Disch Hosp
[2020-03-01] MEDS: 0.9% Saline Lock 10 ML Syringe IV (13:20)
--- NOTE | 2020-03-01 14:36 | NURSING ---
This nurse reviewed discharge instructions with patient. Pt did not seem to remember information. pt kept asking same questions without seeming to understand. This nurse called and left message for pt daughter to return call about discharge instruction.
[2020-03-01 14:44] VITALS: BP 105/58; PULSE 72; RESP 18; TEMP 36.6; O2SAT 94
--- NOTE | 2020-03-01 15:12 | NURSING ---
reviewed discharge instruction with pt daughter Samantha, expressed understanding and had no questions.
--- NOTE | 2020-03-03 14:20 | CASEMGMT ---
RN CM Discharge Follow-up Phone Call: ELIZABETH: Joana Strata: 3 Call Date: 03/03/2020 Discharge Date: 03/01/2020 Time of Call: 1420 Duration: 1 min Admitting Diagnosis: Sepsis secondary to cellulitis RN CM attempted to complete follow-up phone call after recent hospitalization. No answer, voicemail box is full and unable to leave message. RN CM will attempt again at later time.
--- NOTE | 2020-03-19 10:28 | CASEMGMT ---
Social Work Discharge follow up Phone call: Discharge Date: 03/01/20 Call Date: 03/19/20 Callt Time: 1030 Reason for Follow up: advanced care planning Summary of Call: During hospital admission pt requested advance directive forms but did not wish to complete while in the hospital. SW spoke with pt and with her daughter (per pt request) and discussed advanced directives. SW explained importance of documents and encouraged pt and dgt to consider completing HCPOA and Living Will. Interventions: [facility] explained appointment could be made with [facility] for advanced care planning and phone number provided. Pt and dgt will consider. No further needs requested or indicated. FELICIA Prince
== END 2020-03-01 15:09 | disposition home or self-care (01) | DRG 872 ==
LOC: ED 02:58 → MS3 04:55
PROVIDERS: Admitting Provider Hospitalist; Emergency Provider Emergency Medicine; PCP Family Medicine Geriatric Medicine; Referring Provider Hospitalist; Visit Provider Hospitalist
DX: A41.9 Sepsis, unspecified organism (principal); L03.115 Cellulitis of right lower limb; J96.11 Chronic respiratory failure with hypoxia; I42.0 Dilated cardiomyopathy; I13.0 Hypertensive heart and chronic kidney disease with heart failure and stage 1 through stage 4 chronic kidney disease, or unspecified chronic kidney disease; I50.42 Chronic combined systolic (congestive) and diastolic (congestive) heart failure; I47.2 Ventricular tachycardia; Z68.41 Body mass index [BMI] 40.0-44.9, adult; J44.9 Chronic obstructive pulmonary disease, unspecified; N18.3 Chronic kidney disease, stage 3 (moderate); E55.9 Vitamin D deficiency, unspecified; I48.0 Paroxysmal atrial fibrillation; I73.9 Peripheral vascular disease, unspecified; G47.33 Obstructive sleep apnea (adult) (pediatric); G25.81 Restless legs syndrome; F32.9 Major depressive disorder, single episode, unspecified; F41.9 Anxiety disorder, unspecified; R91.8 Other nonspecific abnormal finding of lung field; K21.9 Gastro-esophageal reflux disease without esophagitis; M19.071 Primary osteoarthritis, right ankle and foot; E66.01 Morbid (severe) obesity due to excess calories; R53.81 Other malaise; R29.6 Repeated falls; Z99.81 Dependence on supplemental oxygen; Z79.899 Other long term (current) drug therapy; Z87.891 Personal history of nicotine dependence; Z91.19 Patient's noncompliance with other medical treatment and regimen
CPT/HCPCS: 36415; 71045; 73630; 80048; 82306; 82607; 83605; 85025; 85652; 86140; 87040; 87635; 93922; 93971; 94640; 97110; 97116; 97162; 97166; 97530; 97802; 99251; 99285; G2023; J7050; A4216; G0463; U0003

== ENCOUNTER 2020-04-02 03:31 | Inpatient (IN) | payer MEDICARE, SELFPAY ==
[2020-02-28 04:21] VITALS: BMI 45.1
[2020-04-02] VITALS (19 sets, daily range): BP systolic 104–136; BP diastolic 52–80; PULSE 61–80; RESP 15–24; TEMP 36.1–37.3; O2SAT 92–100; BMI 40.3; BMI 40.8
--- NOTE | 2020-04-02 03:49 | EKG12_ITS ---
Test Reason : REPEAT Blood Pressure : / mmHG Vent. Rate : 063 BPM Atrial Rate : 063 BPM P-R Int : 254 ms QRS Dur : 172 ms QT Int : 550 ms P-R-T Axes : 084 101 003 degrees QTc Int : 562 ms Sinus rhythm with 1st degree A-V block Right bundle branch block Abnormal ECG Confirmed by RICH ROSENBERG ([id number]), editorial cartoonist KENDRA BAE ([id number]) on 04/03/2020 11:11:57 AM Referred By: STIVEN Confirmed By:RICH ROSENBERG
--- NOTE | 2020-04-02 03:49 | RAD_ITS ---
STUDY: X-RAY CHEST REASON FOR EXAM: Female, 69 years old. FELL -- C/O BACK AND LT LEG PAIN TECHNIQUE: Single AP portable view of the chest. Patient is slightly rotated to the left. COMPARISON: 02/28/2020. 05/22/2019. 03/04/2018. FINDINGS: There is increased interstitial prominence in the lungs, which is likely represent CHF. There are calcified granulomas overlying the lung alejo. There is mild bilateral basilar atelectasis. A small left pleural effusion is suspected. The heart is enlarged. Normal mediastinum and leonid. There is prominence of the pulmonary hilar arteries and peripheral pulmonary arteries, consistent with congestive heart failure (CHF). There is atherosclerotic calcification of the aortic arch. There are no visualized acute osseous abnormalities. There is no demonstrated abnormality of the visualized soft tissue structures of the upper abdomen. RAD/Chest 1 View (Portable) IMPRESSION: Cardiomegaly with CHF and small left pleural effusion. Bilateral basilar atelectasis. Old granulomatous disease. Electronically Signed: Yuri Joe MD at 5:19 EDT , Service support ,
--- NOTE | 2020-04-02 03:50 | RAD_ITS ---
STUDY: X-RAY - PELVIS REASON FOR EXAM: Female, 69 years old. FELL -- C/O BACK AND LT LEG PAIN TECHNIQUE: One view of the pelvis was obtained. COMPARISON: X-Ray Pelvis the left hip 05/29/2019. X-ray left femur done today. FINDINGS: There is a non-specific bowel gas pattern. Normal visualized soft tissue structures. Normal bilateral iliac wings, sacroiliac joints and visualized sacrum. Normal visualized bilateral superior and inferior pubic rami. Normal pubic symphysis. Normal ischial tuberosities. Normal visualized right femoral head. Normal right acetabulum. Normal right hip joint. There is an old healed left intertrochanteric fracture with intact fixation hardware. Normal visualized left femoral head. Normal left acetabulum. Normal left hip joint. RAD/Pelvis 1 or 2 Views IMPRESSION: Old healed left intertrochanteric fracture. No demonstrated acute fracture, dislocation, or destructive osseous lesion. Electronically Signed: Yuri Joe MD at 5:30 EDT , Service support ,
--- NOTE | 2020-04-02 03:50 | RAD_ITS ---
STUDY: X-RAY - THORACIC SPINE REASON FOR EXAM: Female, 69 years old. FELL -- C/O BACK AND LT LEG PAIN TECHNIQUE: 4 view(s) of the thoracic spine were obtained. COMPARISON: 11/11/2016. FINDINGS: There is an increase in the normal thoracic kyphosis, stable in appearance. There is no substantial scoliosis. There is multilevel endplate spondylosis of the thoracic vertebrae. There is multilevel disc space narrowing of the thoracic spine. The soft tissue structures are unremarkable. RAD/Thoracic Spine 2 Views IMPRESSION: Multilevel degenerative changes. No demonstrated fracture or subluxation. Electronically Signed: Yuri Joe MD at 5:33 EDT , Service support ,
--- NOTE | 2020-04-02 03:50 | RAD_ITS ---
STUDY: X-RAY - LEFT FEMUR REASON FOR STUDY: Female, 69 years old. FELL -- C/O BACK AND LT LEG PAIN TECHNIQUE: 6 view(s) of the femur. COMPARISON: X-ray left hip 12/05/2018. FINDINGS: There has been previous ORIF of a left intertrochanteric fracture with placement of an intramedullary fixation aura, proximal sliding screw, and distal traversing fixation screw. Hardware is intact without evidence for loosening. Previous fracture healed in adequate alignment. Normal visualized soft tissue structure. RAD/Femur Min 2 Views IMPRESSION: Old healed intertrochanteric fracture, with intact fixation hardware. No demonstrated acute fracture, dislocation, or destructive osseous lesion. Electronically Signed: Yuri Joe MD at 5:25 EDT , Service support ,
--- NOTE | 2020-04-02 03:51 | ED.DCSUM_ITS ---
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 She states that she has COPD, supposed to be on 5 L nasal cannula at home, but she basically does not wear the majority of the time because it is inconvenient and the pain to get around my trailer when I am wearing the oxygen. As a result, with very little exertion, she gets extremely dyspneic, and tonight this occurred to the point of collapsing. She did not lose consciousness. She states in the past week or 2, she has had 8-10 falls as a result of this, with minor bumps and bruises but no major injuries. At this time, she complains of pain in her left proximal leg, her back when I came to the physical exam, and her right foot which is not new. She states she was admitted several weeks ago for cellulitis of her right foot, she thinks it looks better than it did but it is still sore. EMS was very concerned that her living conditions were extremely poor, and that she was likely a hoarder based on what they were seeing. - Past Medical History (1) Anxiety Status: Chronic (2) Asthma Status: Chronic (3) Back pain Status: Chronic (4) COPD (chronic obstructive pulmonary disease) Status: Chronic (5) Cardiomyopathy, dilated Status: Chronic (6) Chronic combined systolic and diastolic CHF (congestive heart failure) Status: Chronic (7) Debility Status: Chronic (8) Depression Status: Chronic (9) GERD (gastroesophageal reflux disease) Status: Chronic (10) Hypertension Status: Chronic (11) ESPERANZA (obstructive sleep apnea) Status: Chronic (12) Osteoarthritis Status: Chronic (13) Paroxysmal atrial fibrillation Status: Chronic (14) Restless leg syndrome Status: Chronic Past Medical History - Allergies and Home Meds Allergies/Adverse Reactions: Allergies doxycycline Allergy (Severe, Verified 04/02/20 03:44) ulcerations of lips and mouth gabapentin Adverse Reaction (Severe, Verified 04/02/20 03:44) GI upset, Vomiting ciprofloxacin [From Cipro] Adverse Reaction (Intermediate, Verified 04/02/20 03:44) Other messes with her heart medicine Primary Care Physician: Darinel Callejas Chi, MD [Primary Care Provider] - Surgical History: hysterectomy, - - tubal ligation, oophorectomy, knee surgery, status post cardiac radiofrequency ablation, cardiac catheterization, Left hip ORIF intramedullary nail. Lives: With Family Smoking Status: Former smoker Drugs: None - Family History Maternal Family History: Family History (Last Reviewed 02/28/20 @ 04:[address] William Cabrera MD) Mother Heart disease Arthritis blood clots Hypertension Father arthrits Cancer Brother Cancer Aunt Breast cancer Depression Ovarian cancer Grandmother CVA (cerebral vascular accident) Aunt Diabetes Family History: Reports: Heart Disease, Hypertension, - - Blood clot Paternal Family History: Family History (Last Reviewed 02/28/20 @ 04:[address] William Cabrera MD) Mother Heart disease Arthritis blood clots Hypertension Father arthrits Cancer Brother Cancer Aunt Breast cancer Depression Ovarian cancer Grandmother CVA (cerebral vascular accident) Aunt Diabetes Family History: Reports: Cancer - Lung cancer Review of Systems General: Reports: Fever - For the past year. Denies any fevers in the past week., Malaise. Denies: Chills, Sweats Eyes: Denies: Visual changes - bilaterally, Diplopia ENT: Denies: Bilateral ear pain, Rhinorrhea, Sore throat Cardiovascular: Denies: Chest pain, Palpitations Respiratory: Denies: Dyspnea, Cough, Dyspnea on exertion Gastrointestinal: Denies: Abdominal pain, Nausea, Vomiting, Diarrhea, Melena, Hematochezia Genitourinary: Denies: Dysuria, Hematuria, Frequency Musculoskeletal: Reports: Back pain, Extremity Pain. Denies: Neck pain Skin: Reports: Wounds. Denies: Rash Neurological: Denies: Headache, Weakness, Numbness Physical Exam Vital Signs/Narrative: Vital Signs Temp Pulse Resp BP Pulse Ox 04/02/20 03:37 99.2 F H 80 18 104/57 L 98 Inital Vital Signs reviewed: Yes General: Well nourished, Well developed, Obese, Unkempt, No Acute Distress Head: Normocephalic, Atraumatic Eyes: Perrl, EOMI ENT: Moist mucous membranes, No rhinorrhea Neck: Supple, Nontender, No lymphadenopathy Cardiovascular: Regular rate, Regular rhythm, No murmurs Respiratory: No distress, CTA bilaterally, Chest nontender, Diminished - Throughout, symmetrically Abdomen: Soft, Nontender, Nondistended, Normal bowel sounds Back: Normal Inspection, Spinal tenderness - Mid thoracic spine, around T7-8 Extremities: No edema, Tenderness - Left thigh which is soft, nondistended, without deformity. Also pain in left hip with attempting internal/external rotation which she is able to do., - - Dried blood on right hand, no major wounds, no tenderness. Full range of motion throughout all other joints of all 4 extremities except as above. Only tender toe on the right foot is her small 1, which is otherwise unremarkable-appearing. She has darkened skin in the peroneal aspect of the foot, in addition to multiple other areas of both feet, they appear chronic. These areas are nontender. There is no evidence of cellulitis. Skin: Normal color, No rash, Trauma - Abrasion right hand, nontender. No signs of trauma at the back. Neck nontender. Neurological: Alert, Oriented x3, Cranial nerves II-XII grossly intact, Normal Strength, Normal Sensation Psychological: Normal affect, Normal Mood Diagnostic/Tx/Re-eval Impressions Chest X-Ray 04/02/20 03:49 IMPRESSION: Cardiomegaly with CHF and small left pleural effusion. Bilateral basilar atelectasis. Old granulomatous disease. Electronically Signed: Yuri Joe MD at 5:19 EDT , Service support , Femur X-Ray 04/02/20 03:50 IMPRESSION: Old healed intertrochanteric fracture, with intact fixation hardware. No demonstrated acute fracture, dislocation, or destructive osseous lesion. Electronically Signed: Yuri Joe MD at 5:25 EDT , Service support , Pelvis X-Ray 04/02/20 03:50 IMPRESSION: Old healed left intertrochanteric fracture. No demonstrated acute fracture, dislocation, or destructive osseous lesion. Electronically Signed: Yuri Joe MD at 5:30 EDT , Service support , Thoracic Spine X-Ray 04/02/20 03:50 IMPRESSION: Multilevel degenerative changes. No demonstrated fracture or subluxation. Electronically Signed: Yuri Joe MD at 5:33 EDT , Service support , 04/02/20 03:49 Chest 1 View (Portable) [RAD] Stat 04/02/20 03:50 Femur Min 2 Views [RAD] Stat Pelvis 1 or 2 Views [RAD] Stat Thoracic Spine 2 Views [RAD] Stat Laboratory Results 04/02/20 04/02/20 04/02/20 04:00 04:10 04:10 WBC 11.9 H RBC 4.34 Hgb 13.4 Hct 43.9 MCV 101.2 H MCH 30.9 MCHC 30.5 L RDW Std Deviation 52.0 H RDW Coeff of Ankit 14.0 Plt Count 333 MPV 9.7 Immature Gran % (Auto) 0.500 Neut % (Auto) 81.9 H Lymph % (Auto) 8.6 L Cavalier % (Auto) 7.8 Eos % (Auto) 0.6 Baso % (Auto) 0.6 Absolute Neuts (auto) 9.7 H Absolute Lymphs (auto) 1.02 Nucleated RBC % 0 Sodium 139 Potassium 5.0 Chloride 105 Carbon Dioxide 32.0 Anion Gap 2 L BUN 40 H Creatinine 1.75 H Estim Creat Clear Calc 29.50 Est GFR (MDRD) Af Amer 37 L Est GFR (MDRD) Non-Af 31 L BUN/Creatinine Ratio 22.9 H Glucose 120 H Calcium 9.2 Troponin I < 0.015 Urine Color Yellow Urine Clarity Clear Urine pH 5.0 Ur Specific [place] 1.030 Urine Protein 30 H Urine Glucose (UA) Normal Urine Ketones 5 H Urine Occult Blood Negative Urine Nitrite Negative Urine Bilirubin 1 H Urine Urobilinogen 1 H Ur Leukocyte Esterase 25 H Urine RBC 0-5 SEEN Urine WBC 0-5 SEEN Ur Squamous Epith Cells 0 SEEN Ur Transition Epith Cell 0-5 SEEN Amorphous Sediment 1+ Urine Bacteria RARE Hyaline Casts 25-50 SEEN Urine Mucus 1+ - Rhythm Strip Rhythm Strip: Sinus Rhythm Rate: 65 Ectopy: None - EKG Initial EKG Interpretation: Sinus Rhythm, No Acute Injury Pattern, RBBB, AV Block - 1st deg Prior: Unchanged - Medical Decision Making Work-up shows prerenal azotemia, chest x-ray shows possibly some failure, but her systolic function is normal with an EF of 55% on her last echo this past year. No sign of pneumonia or urinary infection, or other acute finding. In discussing with the patient, she states she does not want to stay in the hospital she does not have anything medically that she needs to be admitted for. However, we ambulated the patient with her oxygen on at 5 L, she did not even make it to the door before her pulse ox dropped to the 60s on her oxygen, and she needed to nurses to prevent her from falling to the floor. Therefore I think she will benefit from admission. It is difficult to know if her prerenal azotemia is from dehydration or congestive heart failure at this time, but the patient states she has been eating and drinking fine, so I would err on the side of the possibility of congestive heart failure and give her a dose of Lasix. I will also give her a dose of Solu-Medrol for her COPD. ED Disposition - Plan for ED Patient: Disposition: Acute Care Hospital [facility] Diagnosis: Generalized weakness, COPD (chronic obstructive pulmonary disease), Chronic combined systolic and diastolic CHF (congestive heart failure), Dyspnea, P atient's noncompliance with other medical treatment and regimen, Hypoxemia Referrals: Darinel Callejas Chi, MD [Primary Care Provider] -
[2020-04-02 04:10] LABS: Squamous Epithelial Cells - UA 0 SEEN /hpf (5-10)
[2020-04-02 04:13] LABS: Color, Urine Yellow (Yellow); Glucose, Dipstick Normal (Normal); Ketone-Dipstick 5 mg/dl (Negative); Leukocyte Esterase-Dipstick 25 /ul (Negative); Nitrite-Dipstick Negative (Negative); Occult Blood-Urine Negative /ul (Negative); Protein-Dipstick 30 mg/dl (Negative); Urine Clarity Clear (Clear); Urine Urobilinogen 1 mg/dl (Normal)
[2020-04-02 04:14] LABS: Urine Bilirubin Dipstick 1 mg/dL (Negative)
[2020-04-02] MEDS: Albuterol 2.5 MG/3 ML VIAL.NEB. INHALATION (04:15)
[2020-04-02 04:21] LABS: Absolute Lymphocyte Count 1.02 X10^3/uL (0.83-4.51); Absolute Neutrophil Count 9.7 X10^3/uL (2.0-7.7); Basophil# 0.07 X10^3/uL; Basophil% 0.6 % (0-1); Eosinophil# 0.07 X10^3/uL; Eosinophils% 0.6 % (0-5); Hematocrit 43.9 % (37-47); Hemoglobin 13.4 g/dL (12.0-15.0); Lymphocyte # 1.02 X10^3/ul (4.0); Lymphocyte % 8.6 % (19-41); Mean Corp Hgb Conc 30.5 g/dL (32-36); Mean Corpuscular Hgb 30.9 pg (27.0-32.0); Mean Corpuscular Volume 101.2 fL (81-99); Mean Platelet Vol. 9.7 fl (6.2-12.0); Monocyte# 0.92 X10^3/uL; Monocyte% 7.8 % (0-10); NRBC Flagged by Analyzer 0 % (0-5); Neutrophil # 9.73 X10^3/uL (2.7-7.7); Neutrophil % 81.9 % (47-70); Platelet Count 333 K/mm3 (150-450); Red Blood Count 4.34 M/mm3 (4.2-5.4); White Blood Count 11.9 K/mm3 (4.4-11.0)
[2020-04-02 04:27] LABS: Hyaline Cast 25-50 SEEN /lpf (0-5)
[2020-04-02 04:28] LABS: Amorphous Sediment 1+; Bacteria RARE /hpf (None Seen); White Blood Cells 0-5 SEEN /hpf (0-5)
[2020-04-02 04:32] LABS: Red Blood Cells-Urine 0-5 SEEN /hpf (0-5); Transitional Epithelial - Ur 0-5 SEEN /hpf (0-5)
[2020-04-02 04:33] LABS: Mucous, Urine 1+ /hpf (<or=2+)
[2020-04-02 04:38] LABS: Anion Gap 2 (5-15); BUN 40 mg/dL (7-18); BUN/Creat Ratio 22.9 RATIO (10-20); Calcium,Total 9.2 mg/dL (8.5-10.1); Chloride 105 mmol/L (98-107); Creatinine, Serum 1.75 mg/dL (0.55-1.02); EST Glomerular Filtration Rate 31 mL/min (>60); Est Glom Filt Rate - Afr Amer 37 mL/min (>60); Glucose 120 mg/dL (74-106); Sodium Level 139 mmol/L (136-145)
--- NOTE | 2020-04-02 06:19 | NURSING ---
PT REQUIRED ASSIST OF TWO MEDICAL PERSONNELTO AMBULATE, PLACING MOST OF HER UPPER BODY WEIGHT ON THE ARMS OF STAFF MEMBERS. SHE WAS ABLE TO AMBULATE IN THAT MANNER FOR APPROX 8-10 FT BEFORE BECOMING UNSTABLE AND PULE OX DROPPING FROM 95% TO 69% ON HER 5L NC HOME OXYGEN RATE
[2020-04-02] MEDS: Furosemide 20 MG/2 ML VIAL IV ×2 (06:33→13:21)
[2020-04-02] MEDS: MethylPREDNISolone 125 MG/2 ML Vial IV (06:33)
[2020-04-02] MEDS: Acetaminophen 325 MG Tablet 650 MG PO (07:04)
--- NOTE | 2020-04-02 07:18 | NURSING ---
DR LAW FOR DR KEITH
--- NOTE | 2020-04-02 07:36 | NURSING ---
STEPH LAW OBS HYPOXEMIA, COPD, CHF, WEAKNESS
--- NOTE | 2020-04-02 07:51 | HP.PCM_ITS ---
Problem List (1) CHF exacerbation Status: Chronic (2) Generalized weakness Status: Acute (3) Dyspnea Status: Acute (4) Patient's noncompliance with other medical treatment and regimen Status: Acute (5) Hypoxemia Status: Acute (6) Debility Status: Chronic (7) Vitamin D deficiency Status: Chronic (8) Restless leg syndrome Status: Chronic (9) Cellulitis of right lower extremity Status: Acute (10) COPD (chronic obstructive pulmonary disease) Status: Chronic (11) Sepsis Status: Acute (12) Cardiomyopathy, dilated Status: Chronic (13) ESPERANZA (obstructive sleep apnea) Status: Chronic (14) Chronic respiratory failure with hypoxia Status: Chronic (15) Anxiety Status: Chronic (16) Depression Status: Chronic (17) Osteoarthritis Status: Chronic (18) Pulmonary nodules Status: Chronic (19) Left ventricular hypertrophy Status: Chronic (20) Back pain Status: Chronic (21) Chronic systolic heart failure Status: Chronic (22) GERD (gastroesophageal reflux disease) Status: Chronic (23) Chronic combined systolic and diastolic CHF (congestive heart failure) Status: Chronic (24) Non-sustained ventricular tachycardia Status: Chronic (25) Hypertension Status: Chronic (26) 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 Status: Chronic (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 She also has cough but it is chronic with no change in characteristic or sputum due to COPD. Complain of shivering and cold but unclear about fever. She states he fell about 7-8 times in the last 1 week complaint of right leg pain and back pain. Denies chest pain, abdominal pain. She had left intertrochanteric fracture status post ORIF in the past. At home, her oxygen needs increased and was using 4 L and was also not able to get to the trailer where she was living to use oxygen In ED, no fever, blood pressure low 100/57, heart rate 80/min and pulse ox 98% on 5 L of oxygen. Chest x-ray shows mild bilateral congestion with small left pleural effusion and bibasilar atelectasis. Femur, pelvic x-ray shows old healed left intertrochanteric fracture but no new change. She had thoracic spine x-ray whic h shows degenerative changes. She was given 1 dose of Lasix 20 mg IV and Solu-Medrol. Past Medical History Past Medical History (Chronic Problems): Chronic Problems (Last Updated 02/28/20 @ 07:[address] Santosh Nobles MD) CHF exacerbation (Chronic) Debility (Chronic) Vitamin D deficiency (Chronic) Restless leg syndrome (Chronic) COPD (chronic obstructive pulmonary disease) (Chronic) Cardiomyopathy, dilated (Chronic) ESPERANZA (obstructive sleep apnea) (Chronic) Chronic respiratory failure with hypoxia (Chronic) Anxiety (Chronic) Depression (Chronic) Osteoarthritis (Chronic) Pulmonary nodules (Chronic) Left ventricular hypertrophy (Chronic) Back pain (Chronic) Chronic systolic heart failure (Chronic) GERD (gastroesophageal reflux disease) (Chronic) Chronic combined systolic and diastolic CHF (congestive heart failure) (Chronic) Non-sustained ventricular tachycardia (Chronic) Hypertension (Chronic) 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) intermediate current use of antiarrhythmic medical therapy (Chronic) Paroxysmal atrial fibrillation (Chronic) Asthma (Chronic) Medical History: Medical History (Last Updated 02/28/20 @ 07:[address] Santosh Nobles MD) Cardiomyopathy, dilated (Chronic) I42.0 Chronic combined systolic and diastolic CHF (congestive heart failure) (Chronic) I50.42 Non-sustained ventricular tachycardia (Chronic) I47.2 Hypertension (Chronic) I10 Paroxysmal atrial fibrillation (Chronic) I48.0 Asthma (Chronic) J45.909 Chronic back pain M54.9, G89.29 Chronic bronchitis J42 GERD (gastroesophageal reflux disease) K21.9 Kidney disease, chronic, stage III (GFR 30-59 ml/min) N18.3 blood clots Allergies doxycycline Allergy (Severe, Verified 04/02/20 03:44) ulcerations of lips and mouth gabapentin Adverse Reaction (Severe, Verified 04/02/20 03:44) GI upset, Vomiting ciprofloxacin [From Cipro] Adverse Reaction (Intermediate, Verified 04/02/20 03: 44) Other messes with her heart medicine Home Medications: Ambulatory Orders Medication Instructions Recorded Albuterol Inhaler [Ventolin Hfa] 1 puff INHALATION Q4H PRN PRN 08/08/13 Fluticasone 0.05% [Flonase Nasal 1 spray NASAL DAILY 08/08/13 [place]] flecainide 150 mg tablet 150 mg PO BID 08/16/17 Venlafaxine HCl [Venlafaxine HCl 75 mg PO DAILY 01/28/18 ER] Metoprolol Tartrate [Lopressor 25 mg PO BID 02/01/18 (beta bairon)] Acetaminophen [Tylenol] 1,000 mg PO Q8 05/13/19 Venlafaxine HCl [Venlafaxine HCl 150 mg PO DAILY 05/13/19 ER] Famotidine [Pepcid] 40 mg PO DAILY #30 tab 05/28/19 Nystatin Powder [Mycostatin Powder] 1 applic TOPICAL 0600,2200 bottle 05/28/19 Polyethylene Glycol 3350 [Miralax] 17 gm PO DAILY PRN PRN 02/28/20 Clindamycin [Cleocin] 450 mg PO TID #54 cap 03/01/20 Lactobacillus Acidophilus 1 tab PO BID #14 tab 03/01/20 [Acidophilus] Diclofenac Sodium [Voltaren] 1 - 2 gm TOPICAL TID PRN 04/02/20 Meloxicam 15 mg PO DAILY 04/02/20 Morphine Sulfate 15 mg PO BID 04/02/20 Surgical History: Surgical History (Last Reviewed 02/28/20 @ 04:[address] William Cabrera MD) H/O cardiac radiofrequency ablation Onset Date: ~09/03/13 Z98.890 H/O hysterectomy with oophorectomy H/O tubal ligation Z98.51 History of knee surgery Z98.890 Surgical History: hysterectomy, - - tubal ligation, oophorectomy, knee surgery, status post cardiac radiofrequency ablation, cardiac catheterization, Left hip ORIF intramedullary nail. Psychiatric History: Anxiety, Depression, - - Non-compliance. 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 William Cabrera MD) Mother Heart disease Arthritis blood clots Hypertension Father arthrits Cancer Brother Cancer Aunt Breast cancer Depression Ovarian cancer Grandmother CVA (cerebral vascular accident) Aunt Diabetes History Items: Heart Disease, Hypertension, - - Blood clot Paternal Family History: Family History (Last Reviewed 02/28/20 @ 04:[address] William Cabrera MD) Mother Heart disease Arthritis blood clots Hypertension Father arthrits Cancer Brother Cancer Aunt Breast cancer Depression Ovarian cancer Grandmother CVA (cerebral vascular accident) Aunt Diabetes History Items: Cancer - Lung cancer Review of Systems Constitutional: Reports: Chills, Weakness. Denies: Fever, Weight Change HEENT: Denies: Head Aches, Hearing Changes, Sinus Congestion, Sinus Drainage, Sore Throat, Visual Changes Cardiovascular: Reports: Edema. Denies: Chest Pain, Palpitations Respiratory: Reports: Cough, Shortness of Breath, Shortness of breath upon exertion. Denies: Shortness of breath at rest, Sputum production Gastrointestinal: Denies: Abdominal Pain, Constipation, Diarrhea, Nausea, Vomiting Genitourinary: Denies: Dysuria, Frequency, Urgency Musculoskeletal: Reports: Back Pain, Joint Pain, Leg Pain, Muscle pain. Denies: Joint Tenderness Skin: Reports: Dryness. Denies: Rash, Wounds Neurological: Denies: Numbness, Tingling, Focal weakness Psychiatric: Reports: Anxiety, Depression. Denies: Homicidal Ideations, Suicidal Ideations Hematologic/ Lymphatic: Denies: Easy Bruising, Easy Bleeding VTE Information - Inpt Only VTE Present on Admission: No VTE Mechan Device Prophylaxis: SCD's VTE Pharm Prophylaxis ordered?: Yes Patient Problems: Active and Suspected Problems (Last Updated 02/28/20 @ 07:[address] Santosh Nobles MD) Generalized weakness (Acute) Dyspnea (Acute) Patient's noncompliance with other medical treatment and regimen (Acute) Hypoxemia (Acute) COPD exacerbation (Acute) - Physical Exam Vitals/I&O's: Vital Signs Temp Pulse Resp BP Pulse Ox 99.2 F H 66 20 H 104/57 L 100 04/02/20 03:37 04/02/20 04:16 04/02/20 04:16 04/02/20 03:37 04/02/20 04:16 Oxygen Flow Rate (L/min) 5 Oxygen Delivery Method Nasal Cannula Weight: 257 lb 7.999 oz Body Mass Index (BMI) 40.3 General: Alert, Oriented x3, Cooperative HEENT: Atraumatic, PERRLA, EOMI, Normocephalic Oral: No Gingival or Mucosal Lesions/ Ulcerations, Dry Mucosa Neck: Supple, No JVD, Negative Carotid Bruits Lungs: No rhonchi, No wheeze, No rales, Diminished - Air entry diminished bilaterally Cardiovascular: Regular rate, Regular Rhythm, Normal S1, Normal S2, No murmurs Abdomen: Bowel Sounds Present, Soft, Non Tender, Non-Distended Extremities: No edema, Capillary Refill Less than 3 Seconds Skin: No rashes, No breakdown, - - Skin is dry with fissuring on the bilateral legs and feet, more on the right foot. Musculoskeletal: No Tenderness to Palpation of Joints or Extremities, Arthritic Changes Neurological: Cranial nerves II-XII grossly intact, Deep Tendon Reflexes 2+/4 and Symmetrical, Neuro grossly intact Psych/Mental Status: Normal Affect, Appropriate Laboratory Results 04/02/20 04:00: Urine Color Yellow, Urine Clarity Clear, Urine pH 5.0, Ur Specific [place] 1.030, Urine Protein 30 H, Urine Glucose (UA) Normal, Urine Ketones 5 H, Urine Occult Blood Negative, Urine Nitrite Negative, Urine Bilirubin 1 H, Urine Urobilinogen 1 H, Ur Leukocyte Esterase 25 H, Urine RBC 0-5 SEEN, Urine WBC 0-5 SEEN, Ur Squamous Epith Cells 0 SEEN, Ur Transition Epith Cell 0-5 SEEN, Amorphous Sediment 1+, Urine Bacteria RARE, Hyaline Casts 25-50 SEEN, Urine Mucus 1+ 04/02/20 04:10: WBC 11.9 H, RBC 4.34, Hgb 13.4, Hct 43.9, MCV 101.2 H, MCH 30.9, MCHC 30.5 L, RDW Std Deviation 52.0 H, RDW Coeff of Ankit 14.0, Plt Count 333, MPV 9.7, Immature Gran % (Auto) 0.500, Neut % (Auto) 81.9 H, Lymph % (Auto) 8.6 L, [place] % (Auto) 7.8, Eos % (Auto) 0.6, Baso % (Auto) 0.6, Absolute Neuts (auto) 9.7 H, Absolute Lymphs (auto) 1.02, Nucleated RBC % 0 04/02/20 04:10: Sodium 139, Potassium 5.0, Chloride 105, Carbon Dioxide 32.0, Anion Gap 2 L, BUN 40 H, Creatinine 1.75 H, Estim Creat Clear Calc 29.50, Est GFR (MDRD) Af Amer 37 L, Est GFR (MDRD) Non-Af 31 L, BUN/Creatinine Ratio 22.9 H , Glucose 120 H, Calcium 9.2, Troponin I < 0.015 04/02/20 04:10: B-Natriuretic Peptide Pending Assessment/Plan All Active Problems (Last Updated 02/28/20 @ 07:[address] Santosh Nobles MD) Generalized weakness (Acute) Dyspnea (Acute) Patient's noncompliance with other medical treatment and regimen (Acute) Hypoxemia (Acute) COPD exacerbation (Acute) Cellulitis of right lower extremity (Acute) Sepsis (Acute) The patient is a 69 year old F with multiple comorbidities as listed, last admission in February 2020 for right lower leg cellulitis came to ER with shortness of breath, recurrent fall and generalized weakness Chest x-ray shows mild bilateral congestion with small left pleural effusion and bibasilar atelectasis and overall clinical assessment consistent with CHF and COPD exacerbation along with recurrent fall. 1. Acute on chronic diastolic heart failure/HFpEF: Patient is being admitted in PCU. BNP is elevated 1600. Patient blood pressure is low therefore started on low-dose of Lasix 20 mg twice daily and titrate as BP and urine output permits. Heart failure core measures including fluid restriction, 2 g salt diet, strict input and output and Chon wrap bandage. 2D echo 05/14/19 is reported as mildly dilated left ventricle with normal left ventricular systolic function and estimated EF of 55% with segmental dysfunction and stage I diastolic dysfunction as well as inferobasal hypokinesia. RVSP is 39 mmHg. Mild to moderate tricuspid valve insufficiency. 2. Probable COPD exacerbation: Patient oxygen requirement 5 L; baseline requirement is 2 to 3 L/min. On bronchodilator DuoNeb, albuterol PRN, Solu- Medrol, incentive spirometry, chest physiotherapy and oxygen therapy. Currently does not seem patient has pneumonia. She had a history of strep pneumonia in March 2018. Respiratory panel, sputum culture and COVID-19 PCR ordered. 3. Acute kidney injury on CKD stage III: BUN/creatinine 40/1.75 increased from the baseline 33/1.5. It seems mainly prerenal secondary to CHF exacerbation. Monitor kidney function electrolytes. K5.0. Bicarb 32. 4. Acute on chronic hypoxic respiratory failure due to CHF exacerbation or COPD exacerbation/both: Patient is on 5 L of oxygen in ER. 5. Debility and generalized weakness, recurrent fall secondary to degenerative joint disease, COPD and CHF: PT and OT. Patient went to TCU in May 2019. 6 arrhythmia: Paroxysmal A. fib status post ablation, chronic right bundle branch block on flecainide: Twelve-lead EKG was done in ED and shows normal sinus rhythm with right bundle branch block, first-degree AV block at 63 bpm. QTc 562 ms. Repeat EKG does not show change. Patient does not have chest pain. Avoid QTC prolonging drugs including ondansetron, Zithromax and others. Home medication venlafaxine on hold. DVT prohylaxis: lovenox, adjusted to creatinine clearance, 30 mL/min Living will/advanced directive/end of life care: Patient does not have living will. She states her daughter is the power of asp net developer for health. After discussion of procedures involved with full code, DNR CC arrest and DNR CC, the patient feels weak and not able to make a clear decision but wants to keep it as full code. Patient does want artificial life support including intubation, tube feed, ventilator and/chest compression, central venous catheter, vasopressor and DC shock if needed in case of terminal condition or life emergency Total time spent in [id number] encounter in discussion of advanced directive 16 minutes Clinical Impression(s) from Imaging Studies Chest X-Ray 04/02/20 03:49 IMPRESSION: Cardiomegaly with CHF and small left pleural effusion. Bilateral basilar atelectasis. Old granulomatous disease. Femur X-Ray 04/02/20 03:50 IMPRESSION: Old healed intertrochanteric fracture, with intact fixation hardware. No demonstrated acute fracture, dislocation, or destructive osseous lesion. Electronically Signed: Yuri Joe MD at 5:25 EDT , Service support , Pelvis X-Ray 04/02/20 03:50 IMPRESSION: Old healed left intertrochanteric fracture. No demonstrated acute fracture, dislocation, or destructive osseous lesion. Electronically Signed: Yuri Joe MD at 5:30 EDT , Service support , Thoracic Spine X-Ray 04/02/20 03:50 IMPRESSION: Multilevel degenerative changes. No demonstrated fracture or subluxation. Electronically Signed: Yuri Joe MD at 5:33 EDT , Service support , Laboratory Results 04/02/20 04:00: Urine Color Yellow, Urine Clarity Clear, Urine pH 5.0, Ur Specific [place] 1.030, Urine Protein 30 H, Urine Glucose (UA) Normal, Urine Ketones 5 H, Urine Occult Blood Negative, Urine Nitrite Negative, Urine Bilirubin 1 H, Urine Urobilinogen 1 H, Ur Leukocyte Esterase 25 H, Urine RBC 0-5 SEEN, Urine WBC 0-5 SEEN, Ur Squamous Epith Cells 0 SEEN, Ur Transition Epith Cell 0-5 SEEN, Amorphous Sediment 1+, Urine Bacteria RARE, Hyaline Casts 25-50 SEEN, Urine Mucus 1+ 04/02/20 04:10: WBC 11.9 H, RBC 4.34, Hgb 13.4, Hct 43.9, MCV 101.2 H, MCH 30.9, MCHC 30.5 L, RDW Std Deviation 52.0 H, RDW Coeff of Ankit 14.0, Plt Count 333, MPV 9.7, Immature Gran % (Auto) 0.500, Neut % (Auto) 81.9 H, Lymph % (Auto) 8.6 L, [place] % (Auto) 7.8, Eos % (Auto) 0.6, Baso % (Auto) 0.6, Absolute Neuts (auto) 9.7 H, Absolute Lymphs (auto) 1.02, Nucleated RBC % 0 04/02/20 04:10: Sodium 139, Potassium 5.0, Chloride 105, Carbon Dioxide 32.0, Anion Gap 2 L, BUN 40 H, Creatinine 1.75 H, Estim Creat Clear Calc 29.50, Est GFR (MDRD) Af Amer 37 L, Est GFR (MDRD) Non-Af 31 L, BUN/Creatinine Ratio 22.9 H , Glucose 120 H, Calcium 9.2, Troponin I < 0.015 04/02/20 04:10: B-Natriuretic Peptide 1663.0 H [] OBSV E&M: 34670 Initial observation care L3 Procedures: 32953 Advncd Care Plan 30 Min
[2020-04-02 11:52] LABS: Magnesium 2.3 mg/dL (1.6-2.6)
[2020-04-02] MEDS: Ipratropium/Albuterol Sulfate 3 ML AMPUL.NEB INHALATION ×3 (11:55→18:51)
[2020-04-02] MEDS: Flecainide 150 MG Tablet PO ×2 (13:21→23:02)
[2020-04-02] MEDS: 0.9% Saline Lock 10 ML Syringe IV ×3 (13:21→20:38)
[2020-04-02] MEDS: Metoprolol Tartrate 25 MG Tablet PO ×2 (13:21→23:02)
[2020-04-02] MEDS: Nystatin Powder 15gm Bottle 1 APPLIC TOPICAL ×2 (13:22→23:02)
[2020-04-02] MEDS: Enoxaparin 30 MG/0.3 ML Syringe SC (13:22)
[2020-04-02] MEDS: Fluticasone 0.05% 1 SPRAY NASAL.SRY NASAL (13:22)
[2020-04-02] MEDS: Polyethylene Glycol 3350 17 GM PACKET PO (13:22)
[2020-04-02] MEDS: Pantoprazole Sodium 40 MG Tablet PO (13:22)
[2020-04-02] MEDS: Morphine 2 MG/ML Syringe IV (16:26)
--- NOTE | 2020-04-02 17:40 | NURSING ---
Patient awake in bed. Verbalizing she sees a small woman standing near door. Patient recognizes this as hallucination. Will alert MD.
[2020-04-02] MEDS: LORazepam 2 MG/ML Syringe 1 MG IV (20:37)
[2020-04-03] VITALS (16 sets, daily range): BP systolic 112–154; BP diastolic 59–76; PULSE 63–84; RESP 18–20; TEMP 36.1–36.9; O2SAT 92–96
--- NOTE | 2020-04-03 04:41 | NURSING ---
Handoff given to Francisco HASTINGS. She will resume care of patient at this time
[2020-04-03 06:18] LABS: Absolute Lymphocyte Count 0.53 X10^3/uL (0.83-4.51); Absolute Neutrophil Count 10.4 X10^3/uL (2.0-7.7); Basophil# 0.01 X10^3/uL; Basophil% 0.1 % (0-1); Hematocrit 41.5 % (37-47); Hemoglobin 13.3 g/dL (12.0-15.0); Lymphocyte # 0.53 X10^3/ul (4.0); Lymphocyte % 4.6 % (19-41); Mean Corpuscular Hgb 31.9 pg (27.0-32.0); Mean Corpuscular Volume 99.5 fL (81-99); Mean Platelet Vol. 9.7 fl (6.2-12.0); Monocyte# 0.34 X10^3/uL; NRBC Flagged by Analyzer 0 % (0-5); Neutrophil # 10.44 X10^3/uL (2.7-7.7); Neutrophil % 91.5 % (47-70); POSITIVE DIFFERENTIAL YES; Platelet Count 349 K/mm3 (150-450); RBC Distribution Width CV 13.8 % (11.6-14.6); Red Blood Count 4.17 M/mm3 (4.2-5.4); White Blood Count 11.4 K/mm3 (4.4-11.0)
[2020-04-03 06:20] LABS: Differential Indicated SCAN CRITERIA MET
[2020-04-03] MEDS: Nystatin Powder 15gm Bottle 1 APPLIC TOPICAL ×3 (06:31→22:54)
[2020-04-03 06:35] LABS: Differential Comment SCANNED
[2020-04-03 06:45] LABS: Anion Gap 1 (5-15); BUN 39 mg/dL (7-18); BUN/Creat Ratio 21.9 RATIO (10-20); Calcium,Total 9.1 mg/dL (8.5-10.1); Chloride 101 mmol/L (98-107); Cholesterol 155 mg/dL (200); Creatinine, Serum 1.78 mg/dL (0.55-1.02); EST Glomerular Filtration Rate 30 mL/min (>60); Est Glom Filt Rate - Afr Amer 36 mL/min (>60); Estimated Creatinine Clearance 26.84 ml/min; Glucose 142 mg/dL (74-106); High Density Lipoprotein 62 mg/dL; Potassium 4.5 mmol/L (3.5-5.1); Sodium Level 136 mmol/L (136-145); Thyroid Stim Hormone (TSH) 0.31 uIU/mL (0.358-3.74); Triglycerides 70 mg/dL; Very Low Density Lipoprotein 14 mg/dL (5-40)
[2020-04-03] MEDS: Fluticasone 0.05% 1 SPRAY NASAL.SRY NASAL (09:36)
[2020-04-03] MEDS: Pantoprazole Sodium 40 MG Tablet PO (09:36)
[2020-04-03] MEDS: Flecainide 150 MG Tablet PO ×2 (09:36→22:54)
[2020-04-03] MEDS: oxyCODONE 5 MG Tablet PO ×2 (09:36→23:19)
[2020-04-03] MEDS: Acetaminophen 325 MG Tablet 650 MG PO ×2 (09:37→23:19)
[2020-04-03] MEDS: Metoprolol Tartrate 25 MG Tablet PO ×2 (09:37→22:53)
[2020-04-03] MEDS: Enoxaparin 30 MG/0.3 ML Syringe SC (09:37)
[2020-04-03] MEDS: 0.9% Saline Lock 10 ML Syringe IV ×3 (09:37→22:56)
[2020-04-03] MEDS: Polyethylene Glycol 3350 17 GM PACKET PO (09:38)
[2020-04-03] MEDS: Furosemide 40 MG/4 ML Vial IV (09:49)
--- NOTE | 2020-04-03 10:03 | PN_ITS ---
Patient Problems: Active and Suspected Problems (Last Updated 02/28/20 @ 07:[address] Santosh Nobles MD) Generalized weakness (Acute) Dyspnea (Acute) Patient's noncompliance with other medical treatment and regimen (Acute) Hypoxemia (Acute) COPD exacerbation (Acute) Objective: No fever. Mild shortness of breath and cough. No productive sputum. On 2 L of oxygen. General: Alert, Oriented x3, Cooperative HEENT: Atraumatic, PERRLA, EOMI, Normocephalic Oral: No Gingival or Mucosal Lesions/ Ulcerations Neck: Supple, No JVD, Negative Carotid Bruits Lungs: Air entry diminished in bilateral lung bases. Bilateral wheezing is present. Cardiovascular: Regular rate, Regular Rhythm, Normal S1, Normal S2, No murmurs Abdomen: Bowel Sounds Present, Soft, Non Tender, Non-Distended : No renal angle tenderness. No suprapubic tenderness. Extremities: No edema, Capillary Refill Less than 3 Seconds Skin: Skin is dry with fissuring on the bilateral legs and feet, more on the right foot. No open ulcer Musculoskeletal: No Tenderness to Palpation of Joints or Extremities Neurological: Cranial nerves II-XII grossly intact, Deep Tendon Reflexes 2+/4 and Symmetrical, Neuro grossly intact Psych/Mental Status: Normal Affect, Appropriate. Vitals/I&O's: Vital Signs Temp Pulse Resp BP Pulse Ox 98.5 F 84 18 154/76 H 92 04/03/20 09:25 04/03/20 09:37 04/03/20 09:25 04/03/20 09:25 04/03/20 09:25 Oxygen Flow Rate (L/min) 4 Oxygen Delivery Method Nasal Cannula Weight: 246 lb 0.574 oz Body Mass Index (BMI) 40.8 Intake and Output for Last 24 Hours 04/01/20 04/02/20 04/03/20 23:59 23:59 23:59 Intake Total 462 / 462 Output Total 1050 / 1050 300 / 300 Balance -588 / -588 -300 / -300 Microbiology Past 72 Hours 04/02/20 08:04 Mucosa - Nasopharyngeal Respiratory Panel (PCR) - Preliminary Adenovirus Laboratory Results 04/02/20 04:10: Magnesium 2.3 04/02/20 08:04: COVID-19 ([facility]) Negative 04/03/20 05:45: WBC 11.4 H, RBC 4.17 L, Hgb 13.3, Hct 41.5, MCV 99.5 H, MCH 31.9, MCHC 32.0, RDW Std Deviation 50.0 H, RDW Coeff of Ankit 13.8, Plt Count 349, MPV 9.7, Immature Gran % (Auto) 0.800, Neut % (Auto) 91.5 H, Lymph % (Auto) 4.6 L, [place] % (Auto) 3.0, Eos % (Auto) 0.0, Baso % (Auto) 0.1, Absolute Neuts (auto) 10.4 H, Absolute Lymphs (auto) 0.53 L, Nucleated RBC % 0, Differential Comment SCANNED 04/03/20 05:45: Sodium 136, Potassium 4.5, Chloride 101, Carbon Dioxide 34.0 H, Anion Gap 1 L, BUN 39 H, Creatinine 1.78 H, Estim Creat Clear Calc 26.84, Est GFR (MDRD) Af Amer 36 L, Est GFR (MDRD) Non-Af 30 L, BUN/Creatinine Ratio 21.9 H , Glucose 142 H, Calcium 9.1, Triglycerides 70, Cholesterol 155, LDL Cholesterol 79, VLDL Cholesterol 14, HDL Cholesterol 62, TSH 0.31 L Current Medications Acetaminophen (Tylenol) 650 mg PO Q6H PRN PRN PRN Reason: Pain Score 1-10/Temp > 100.7 F Last Admin: 04/03/20 09:37 Dose: 650 mg Documented by: Albuterol Sulfate (Ventolin Aerosols) 2.5 mg INHALATION Q2H PRN PRN PRN Reason: SOB/Wheezing Albuterol/Ipratropium (Duoneb) 3 ml INHALATION Q4H.RT [facility] Last Admin: 04/03/20 08:34 Dose: Not Given Documented by: Dextrose (D50w Syringe) 0 gm IV X1 PRN; Protocol PRN Reason: Hypoglycemia Enoxaparin Sodium (Lovenox) 30 mg SC DAILY [facility] Last Admin: 04/03/20 09:37 Dose: 30 mg Documented by: Flecainide Acetate (Tambocor) 150 mg PO BID [facility] Last Admin: 04/03/20 09:36 Dose: 150 mg Documented by: Fluticasone Propionate (Flonase Nasal [place]) 1 spray NASAL DAILY [facility] Last Admin: 04/03/20 09:36 Dose: 1 spray Documented by: Furosemide (Lasix) 40 mg IV DAILY [facility] Glucagon () 1 mg IM .X1 PRN PRN Reason: Hypoglycemia Sodium Chloride () 250 mls @ 15 mls/hr IV .[id number] PRN PRN Reason: Saline Flush Sodium Chloride () 250 mls @ 15 mls/hr IV .[id number] PRN PRN Reason: Additional IVPB Infusion Lactobacillus Acidophilus (Acidophilus) 1 tablet PO BID [facility] Last Admin: 04/03/20 09:36 Dose: 1 tablet Documented by: Melatonin (Melatonin) 3 mg PO QHS PRN PRN PRN Reason: INSOMNIA Methylprednisolone (Solu-Medrol) 40 mg IV Q8 [facility] Last Admin: 04/03/20 06:31 Dose: 40 mg Documented by: Metoprolol Tartrate (Lopressor (Beta Katerine)) 25 mg PO BID [facility] Last Admin: 04/03/20 09:37 Dose: 25 mg Documented by: Nystatin (Mycostatin Powder) 1 applic TOPICAL 0600,1800,2200 [facility]; Protocol Last Admin: 04/03/20 06:31 Dose: 1 applicatio Documented by: Oxycodone HCl (Oxyir) 5 mg PO Q4H PRN PRN PRN Reason: Pain Score 4-5/10 Last Admin: 04/03/20 09:36 Dose: 5 mg Documented by: Pantoprazole Sodium (Protonix) 40 mg PO DAILY [facility] Last Admin: 04/03/20 09:36 Dose: 40 mg Documented by: Polyethylene Glycol (Miralax) 17 gm PO DAILY [facility] Last Admin: 04/03/20 09:38 Dose: 17 gm Documented by: Prochlorperazine Edisylate (Compazine Iv) 5 mg IV Q4H PRN PRN PRN Reason: Breakthrough Nausea/Vomiting Senna/Docusate Sodium (Senokot-S, Yamilex-Colace) 2 tablet PO BID PRN PRN Reason: Constipation Sodium Chloride () 10 - 40 ml IV UD PRN PRN Reason: SALINE FLUSH Last Admin: 04/03/20 09:37 Dose: 10 ml Documented by: STROKE Vital Signs/Narrative: Vital Signs Temp Pulse Resp BP Pulse Ox 04/03/20 09:37 84 04/03/20 09:25 98.5 F 84 18 154/76 H 92 04/03/20 06:42 73 04/03/20 06:23 97.8 F 18 124/61 H 96 Medical Necessity - Tobacco Use Smoking Status: Former smoker Assessment/Plan All Active Problems (Last Updated 02/28/20 @ 07:[address] Santosh Nobles MD) Generalized weakness (Acute) Dyspnea (Acute) Patient's noncompliance with other medical treatment and regimen (Acute) Hypoxemia (Acute) COPD exacerbation (Acute) Cellulitis of right lower extremity (Acute) Sepsis (Acute) The patient is a 69 year old F with multiple comorbidities as listed, last admission in February 2020 for right lower leg cellulitis came to ER with shortness of breath, recurrent fall and generalized weakness Chest x-ray shows mild bilateral congestion with small left pleural effusion and bibasilar atelectasis and overall clinical assessment consistent with CHF and COPD exacerbation along with recurrent fall. 1. Acute on chronic diastolic heart failure/HFpEF: Patient is being admitted in PCU. BNP is elevated 1600. Patient blood pressure is low therefore started on low-dose of Lasix 20 mg twice daily and titrate as BP and urine output permits. Heart failure core measures including fluid restriction, 2 g salt diet, strict input and output and Chon wrap bandage. 2D echo 05/14/19 is reported as mildly dilated left ventricle with normal left ventricular systolic function and estimated EF of 55% with segmental dysfunction and stage I diastolic dysfunction as well as inferobasal hypokinesia. RVSP is 39 mmHg. Mild to moderate tricuspid valve insufficiency. 04/03: Patient BUN/creatinine high although not much change. Bicarb 34. During previous admission also patient bicarb was high on Lasix. Lasix discontinued as patient leg edema and shortness of breath improved. 2. COPD exacerbation from adenovirus acute bronchitis: Patient oxygen requirement 5 L; baseline requirement is 2 to 3 L/min. On bronchodilator DuoNeb, albuterol PRN, Solu-Medrol, incentive spirometry, chest physiotherapy and oxygen therapy. Currently does not seem patient has pneumonia. She had a history of strep pneumonia in March 2018. Respiratory panel positive of adenovirus. COVID PCR negative. No fever 3. Acute kidney injury on CKD stage III: BUN/creatinine 40/1.75 increased from the baseline 33/1.5. It seems mainly prerenal secondary to CHF exacerbation. Monitor kidney function electrolytes. K5.0. Bicarb 32. 7/30: Increasing bicarb and mild increase in creatinine. Follow-up kidney function electrolytes, monitor intake and output and nephrology consult. 4. Acute on chronic hypoxic respiratory failure due to CHF exacerbation or COPD exacerbation/both: Patient is on 5 L of oxygen in ER. 5. Debility and generalized weakness, recurrent fall secondary to degenerative joint disease, COPD and CHF: PT and OT. Patient went to TCU in May 2019. 6 arrhythmia: Paroxysmal A. fib status post ablation, chronic right bundle branch block on flecainide: Twelve-lead EKG was done in ED and shows normal sinus rhythm with right bundle branch block, first-degree AV block at 63 bpm. QTc 562 ms. Repeat EKG does not show change. Patient does not have chest pain. Avoid QTC prolonging drugs including ondansetron, Zithromax and others. Home medication venlafaxine on hold. DVT prohylaxis: lovenox, adjusted to creatinine clearance, 30 mL/min Living will/advanced directive/end of life care: Patient does not have living will. She states her daughter is the power of mergers and acquisitions attorney for health. After discussion of procedures involved with full code, DNR CC arrest and DNR CC, the patient feels weak and not able to make a clear decision but wants to keep it as full code. Patient does want artificial life support including intubation, tube feed, ventilator and/chest compression, central venous catheter, vasopressor and DC shock if needed in case of terminal condition or life emergency Clinical Impression(s) from Imaging Studies Chest X-Ray 04/02/20 03:49 IMPRESSION: Cardiomegaly with CHF and small left pleural effusion. Bilateral basilar atelectasis. Old granulomatous disease. Femur X-Ray 04/02/20 03:50 IMPRESSION: Old healed intertrochanteric fracture, with intact fixation hardware. No demonstrated acute fracture, dislocation, or destructive osseous lesion. Pelvis X-Ray 04/02/20 03:50 IMPRESSION: Old healed left intertrochanteric fracture. No demonstrated acute fracture, dislocation, or destructive osseous lesion. Electronically Signed: Yuri Joe MD at 5:30 EDT , Service support , Thoracic Spine X-Ray 04/02/20 03:50 IMPRESSION: Multilevel degenerative changes. No demonstrated fracture or subluxation. Inpatient E&M: 95589 Subs Hosp L2
[2020-04-03] MEDS: Ipratropium/Albuterol Sulfate 3 ML AMPUL.NEB INHALATION ×4 (10:40→23:54)
[2020-04-04] VITALS (17 sets, daily range): BP systolic 135–151; BP diastolic 61–83; PULSE 62–77; RESP 16–20; TEMP 36.6–36.7; O2SAT 81–95
[2020-04-04] MEDS: Nystatin Powder 15gm Bottle 1 APPLIC TOPICAL ×2 (06:23→22:07)
[2020-04-04] MEDS: 0.9% Saline Lock 10 ML Syringe IV ×2 (06:24→13:39)
[2020-04-04] MEDS: Ipratropium/Albuterol Sulfate 3 ML AMPUL.NEB INHALATION ×4 (06:56→19:26)
--- NOTE | 2020-04-04 07:56 | CPS ---
pt found with oxygen out of nose...saturation 81%. O2 placed back in nose. Saturation to 96%
[2020-04-04] MEDS: Polyethylene Glycol 3350 17 GM PACKET PO (09:48)
[2020-04-04] MEDS: Enoxaparin 30 MG/0.3 ML Syringe SC (09:49)
[2020-04-04] MEDS: Metoprolol Tartrate 25 MG Tablet PO ×2 (09:49→22:07)
[2020-04-04] MEDS: Pantoprazole Sodium 40 MG Tablet PO (09:49)
[2020-04-04] MEDS: Flecainide 150 MG Tablet PO ×2 (09:49→22:07)
[2020-04-04] MEDS: Fluticasone 0.05% 1 SPRAY NASAL.SRY NASAL (09:50)
[2020-04-04 09:57] LABS: Albumin, Serum 3.1 g/dL (3.2-5.0); BUN 44 mg/dL (7-18); Calcium,Total 9.5 mg/dL (8.5-10.1); Chloride 101 mmol/L (98-107); Creatinine, Serum 1.57 mg/dL (0.55-1.02); EST Glomerular Filtration Rate 35 mL/min (>60); Est Glom Filt Rate - Afr Amer 42 mL/min (>60); Estimated Creatinine Clearance 30.43 ml/min; Glucose 124 mg/dL (74-106); Phosphorus 3.3 mg/dL (2.5-4.9); Potassium 4.5 mmol/L (3.5-5.1); Sodium Level 137 mmol/L (136-145)
[2020-04-04 11:11] LABS: ALB/GLOB Ratio 0.8 RATIO (0.9-2.4); AST(SGOT) 20 U/L (15-37); Alanine Aminotransfer ALT/SGPT 24 U/L (13-56); Alkaline Phosphatase 82 U/L (45-117); Anion Gap 3 (5-15); Protein, Total 7.1 g/dL (6.4-8.2)
[2020-04-04 11:14] LABS: Urine Sodium 128 mmol/L (Not Establ.)
--- NOTE | 2020-04-04 12:50 | CASEMGMT ---
RN STEFANI ECHOCARDIOGRAPHER CM to room to meet with patient for initial transition planning/care coordination assessment. DARLING KO introduced self and role at [facility]. Pt voices understanding and consents to assessment at this time. Pt sitting up in bed in no distress at this time. Pt is A/O at this time and answers all questions appropriately, although she is poor historian and not able to provide some details/recall some information. Pt states she would like RN STEFANI to call her daughter, Samantha, for further information. Pt states, I haven't been able to reach her all day and I would like to talk with her also. Call placed to pt's daughter, Samantha. No answer. Message left on VM asking for daughter to call [employer] STEFANI, Leanne, to discuss discharge planning and to review pt's information/needs. Phone number for Leanne provided on VM. Message to daughter also stated pt would like for her to call her as well. PCP: Dr Callejas listed on demographics. Pt states she is not sure. Call placed to Dr Vance's office (who pt could confirm she sees) and they stated they have Dr Callejas listed as pt's PCP as well. Specialists: Dr Vance--pain mgmt. Does not remember if she sees other specialists. Preferred Pharmacy: [facility] Insurance: [facility] Prescription Benefit: Yes Living Will/HPOA: Per documentation, pt has been given paperwork/info for AD. Pt states she has not completed them, but that she is interested in completing POA while here @ [facility]. She states she wants her daughter, Samantha to be listed as POA and that she would also like her granddaughter to be listed. She states she does not want her son, Orlando, involved in any decision making. Lorri BARBOUR, made aware. LNOK: Daughter, Samantha. Granddaughter. Pt also has a son, Orlando Byrd. Pt states she has not seen Orlando for about a year, stating, he is not involved and states, he gave up on me. Living Arrangements: Lives in mobile home w/daughter (who W/C bound) and 26/27 yr-old granddaughter w/a ramp entrance. Pt states she is independent w/ADL's and she, her daughter, and granddaughter all help share home mgmt tasks. She states they all 3 go together to get groceries. Per PT/OT notes, pt goes to her own home (basement home) to shower but there is a flight of stairs to enter and she uses a kitchen chair in the shower. Pt tells this DARLING KO at this time that she also uses the step-in shower in her daughters' home that she uses at times as well. DARLING KO discussed shower chair w/pt, as this would be safer than shower chair. Pt was made aware shower chair is not covered by [facility]. She was made aware this could be purchased at [employer], [employer], [employer], or may even be able to find one at [employer]. Transportation: DaughterSamantha DME: Has cane, walker, and W/C per PT/OT evals. Has home O2 through [employer] via n/c @ 4 L/M per [employer] confirmation in February. HHC/SNF: Hx of [facility] and [facility]. PT/OT evals/notes have been reviewed. Discussed discharge planning with pt in detail and DARLING KO voiced concerns w/pt returning home @ discharge d/t weakness and frequent falls. Pt stated, I'll just be more careful:. Pt adamant that she does not want to go to a SNF, I can't afford it'. Pt made aware SNF would be billed through insurance and any [id number] cost could be determined prior to her going to a SNF. Pt then stated, I'm not going to go anywhere. I am going home. I want to go home. I'll be okay. Discussed options of HHC and OP therapy. In re: to HHC, pt stated, I don't care for that. I have dogs and stuff and I don't want to interrupt my home. That's ending my privacy. In re: to OP therapy, pt stated she did not want her daughter to have to drive her to her appts. DARLING KO made her aware that [facility] has van transportation to [facility] if she would choose to go there. Pt then stated, I don't want to jump in a van, go to therapy, and then go home. I like to just be at home. Pt did state, that if her daughter felt she should go somewhere, then she would, stating, That would be a different story. Then I would go. PLAN: TBD. Pt states would prefer to return home, but if her daughter feels she should go to a SNF, she would be agreeable. ANGLE, Lorri, and [employer] STEFANI, Leanne, made aware. Awaiting return call from daughter to [employer] CM to discuss discharge plan. Teena BSN RN CM
--- NOTE | 2020-04-04 13:21 | CON.PCM_ITS ---
Consultation - Renal 04/04/20 PCP/ Referring MD: Requesting physician: [] Primary care physician: Reason for Consultation:: acute on CKD stage 3 - History of Present Illness History of Present Illness: The patient is a 69 year old F admitted for frequent falls with back pain, hip pain. She has been in rehab for therapy but declines transfer to rehab this admission. I was asked to see her on consult for acute on CKD stage 3. Baseline creatinine 1.2 in Aug 2019, 1.4-1.5 during last hospitalization in February 2020 for cellulitis now at 1.75 after given lasix for CHF picture on CXR. Creatinine 1.57 on 04/04/20. Respiratory panel positive for adenovirus. Denies cough, fever, chills, myalgias. Denies nausea, vomiting. Takes meloxicam at home for chronic pain in legs. Allergic to gabapentin. Seen by pain management. PMH for hypertension, DM2. UA with trace protein, no heme. No prior renal US. She has remote history of tobacco use, COPD. Uses oxygen rarely at home. Echo from May 2019 showed normal EF 55%. - Allergies Allergies: Allergies doxycycline Allergy (Severe, Verified 04/02/20 03:44) ulcerations of lips and mouth gabapentin Adverse Reaction (Severe, Verified 04/02/20 03:44) GI upset, Vomiting ciprofloxacin [From Cipro] Adverse Reaction (Intermediate, Verified 04/02/20 03:44) Other messes with her heart medicine - Current Medications Current Medications: Current Medications Acetaminophen (Tylenol) 650 mg PO Q6H PRN PRN PRN Reason: Pain Score 1-10/Temp > 100.7 F Last Admin: 04/03/20 23:19 Dose: 650 mg Documented by: Albuterol Sulfate (Ventolin Aerosols) 2.5 mg INHALATION Q2H PRN PRN PRN Reason: SOB/Wheezing Albuterol/Ipratropium (Duoneb) 3 ml INHALATION Q4H.RT [facility] Last Admin: 04/04/20 11:15 Dose: 3 ml Documented by: Dextrose (D50w Syringe) 0 gm IV X1 PRN; Protocol PRN Reason: Hypoglycemia Enoxaparin Sodium (Lovenox) 40 mg SC DAILY [facility] Flecainide Acetate (Tambocor) 150 mg PO BID [facility] Last Admin: 04/04/20 09:49 Dose: 150 mg Documented by: Fluticasone Propionate (Flonase Nasal [place]) 1 spray NASAL DAILY [facility] Last Admin: 04/04/20 09:50 Dose: 1 spray Documented by: Glucagon () 1 mg IM .X1 PRN PRN Reason: Hypoglycemia Sodium Chloride () 250 mls @ 15 mls/hr IV .[id number] PRN PRN Reason: Saline Flush Sodium Chloride () 250 mls @ 15 mls/hr IV .[id number] PRN PRN Reason: Additional IVPB Infusion Lactobacillus Acidophilus (Acidophilus) 1 tablet PO BID [facility] Last Admin: 04/04/20 09:49 Dose: 1 tablet Documented by: Melatonin (Melatonin) 3 mg PO QHS PRN PRN PRN Reason: INSOMNIA Methylprednisolone (Solu-Medrol) 40 mg IV Q8 [facility] Last Admin: 04/04/20 06:23 Dose: 40 mg Documented by: Metoprolol Tartrate (Lopressor (Beta Katerine)) 25 mg PO BID [facility] Last Admin: 04/04/20 09:49 Dose: 25 mg Documented by: Nystatin (Mycostatin Powder) 1 applic TOPICAL 0600,1800,2200 [facility]; Protocol Last Admin: 04/04/20 06:23 Dose: 1 applicatio Documented by: Oxycodone HCl (Oxyir) 5 mg PO Q4H PRN PRN PRN Reason: Pain Score 4-5/10 Last Admin: 04/03/20 23:19 Dose: 5 mg Documented by: Pantoprazole Sodium (Protonix) 40 mg PO DAILY [facility] Last Admin: 04/04/20 09:49 Dose: 40 mg Documented by: Polyethylene Glycol (Miralax) 17 gm PO DAILY [facility] Last Admin: 04/04/20 09:48 Dose: 17 gm Documented by: Prochlorperazine Edisylate (Compazine Iv) 5 mg IV Q4H PRN PRN PRN Reason: Breakthrough Nausea/Vomiting Senna/Docusate Sodium (Senokot-S, Yamilex-Colace) 2 tablet PO BID PRN PRN Reason: Constipation Sodium Chloride () 10 - 40 ml IV UD PRN PRN Reason: SALINE FLUSH Last Admin: 04/04/20 06:24 Dose: 10 ml Documented by: - Past Medical History Past Medical History (Chronic Problems): Chronic Problems (Last Updated 02/28/20 @ 07:[address] Santosh Nobles MD) CHF exacerbation (Chronic) Debility (Chronic) Vitamin D deficiency (Chronic) Restless leg syndrome (Chronic) COPD (chronic obstructive pulmonary disease) (Chronic) Cardiomyopathy, dilated (Chronic) ESPERANZA (obstructive sleep apnea) (Chronic) Chronic respiratory failure with hypoxia (Chronic) Anxiety (Chronic) Depression (Chronic) Osteoarthritis (Chronic) Pulmonary nodules (Chronic) Left ventricular hypertrophy (Chronic) Back pain (Chronic) Chronic systolic heart failure (Chronic) GERD (gastroesophageal reflux disease) (Chronic) Chronic combined systolic and diastolic CHF (congestive heart failure) (Chronic) Non-sustained ventricular tachycardia (Chronic) Hypertension (Chronic) 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) pen[facility]iary current use of antiarrhythmic medical therapy (Chronic) Paroxysmal atrial fibrillation (Chronic) Asthma (Chronic) - Past Surgical History Surgical History: hysterectomy, - - tubal ligation, oophorectomy, knee surgery, status post cardiac radiofrequency ablation, cardiac catheterization, Left hip ORIF intramedullary nail. - Social History Smoking Status: Former smoker Drugs: None - Family History Maternal Family History: Family History (Last Reviewed 02/28/20 @ 04:[address] William Cabrera MD) Mother Heart disease Arthritis blood clots Hypertension Father arthrits Cancer Brother Cancer Aunt Breast cancer Depression Ovarian cancer Grandmother CVA (cerebral vascular accident) Aunt Diabetes History Items: Heart Disease, Hypertension, - - Blood clot Paternal Family History: Family History (Last Reviewed 02/28/20 @ 04:[address] William Cabrera MD) Mother Heart disease Arthritis blood clots Hypertension Father arthrits Cancer Brother Cancer Aunt Breast cancer Depression Ovarian cancer Grandmother CVA (cerebral vascular accident) Aunt Diabetes History Items: Cancer - Lung cancer Review of Systems Constitutional: Reports: Weakness, - - fall. Denies: Anorexia, Chills, Fever Cardiovascular: Denies: Chest Pain Respiratory: Reports: Shortness of Breath, Shortness of breath upon exertion, - - wears oxygen rarely. Denies: Cough Gastrointestinal: Reports: - - anorexia. Denies: Abdominal Pain, Nausea, Vomiting Genitourinary: Denies: Dysuria Skin: Denies: Rash Neurological: Reports: Balance problems, - - frequent falls. Denies: Tremor, Seizures Psychiatric: Reports: Anxiety, Depression Hematologic/ Lymphatic: Reports: Anemia Patient Problems: Active and Suspected Problems (Last Updated 02/28/20 @ 07:[address] Santosh Nobles MD) Generalized weakness (Acute) Dyspnea (Acute) Patient's noncompliance with other medical treatment and regimen (Acute) Hypoxemia (Acute) COPD exacerbation (Acute) - Physical Exam Vitals/I&O's: Vital Signs Temp Pulse Resp BP Pulse Ox 98.0 F 70 16 147/70 H 93 04/04/20 09:34 04/04/20 11:15 04/04/20 11:15 04/04/20 09:34 04/04/20 09:34 Oxygen Flow Rate (L/min) 2 Oxygen Delivery Method Nasal Cannula Weight: 111.2 kg Body Mass Index (BMI) 40.8 Intake and Output for Last 24 Hours 04/02/20 04/03/20 04/04/20 23:59 23:59 23:59 Intake Total 462 / 462 822 / 822 320 / 320 Output Total 1050 / 1050 1600 / 1600 220 / 220 Balance -588 / -588 -778 / -778 100 / 100 General: Alert, Oriented x3, Cooperative, - - mild conversational dyspnea Oral: Dry Mucosa Neck: Supple, No JVD Lungs: Diminished, Rhonchi Cardiovascular: Regular rate Abdomen: Bowel Sounds Present, Soft, Non Tender, Non-Distended Extremities: No edema, Peripheral Pulses Normal Skin: - - dusky feet Neurological: Cranial nerves II-XII grossly intact, - - generalized weakness, PT eval pending Psych/Mental Status: Normal Affect, Alert and oriented to time, place, person, mood and affect Microbiology Past 72 Hours 04/02/20 08:04 Mucosa - Nasopharyngeal Respiratory Panel (PCR) - Final Adenovirus Laboratory Results 04/04/20 09:16: Sodium 137, Potassium 4.5, Chloride 101, Carbon Dioxide 33.0 H, Anion Gap 3 L, BUN 44 H, Creatinine 1.57 H, Estim Creat Clear Calc 30.43, Est GFR (MDRD) Af Amer 42 L, Est GFR (MDRD) Non-Af 35 L, BUN/Creatinine Ratio 28.0 H , Glucose 124 H, Calcium 9.5, Phosphorus 3.3, Total Bilirubin 0.40, AST 20, ALT 24, Alkaline Phosphatase 82, Total Protein 7.1, Albumin 3.1 L, Globulin 4.0, Albumin/Globulin Ratio 0.8 L 04/04/20 09:17: WBC Pending, RBC Pending, Hgb Pending, Hct Pending, MCV Pending, MCH Pending, MCHC Pending, RDW Std Deviation Pending, RDW Coeff of Ankit Pending, Plt Count Pending, Neut % (Auto) Pending, Absolute Neuts (auto) Pending 04/04/20 09:17: Sodium Cancelled, Potassium Cancelled, Chloride Cancelled, Carbon Dioxide Cancelled, Anion Gap Cancelled, BUN Cancelled, Creatinine Cancelled, Estim Creat Clear Calc Cancelled, Est GFR (MDRD) Af Amer Cancelled, Est GFR (MDRD) Non-Af Cancelled, BUN/Creatinine Ratio Cancelled, Glucose Cancelled, Calcium Cancelled, Total Bilirubin Cancelled, AST Cancelled, ALT Cancelled, Alkaline Phosphatase Cancelled, Total Protein Cancelled, Albumin Cancelled, Globulin Cancelled, Albumin/Globulin Ratio Cancelled 04/04/20 09:55: Urine Creatinine 129.00 04/04/20 09:55: Ur Random Sodium 128 Clinical Impression(s) from Imaging Studies Chest X-Ray 04/02/20 03:49 IMPRESSION: Cardiomegaly with CHF and small left pleural effusion. Bilateral basilar atelectasis. Old granulomatous disease. Electronically Signed: Yuri Joe MD at 5:19 EDT , Service support , Femur X-Ray 04/02/20 03:50 IMPRESSION: Old healed intertrochanteric fracture, with intact fixation hardware. No demonstrated acute fracture, dislocation, or destructive osseous lesion. Electronically Signed: Yuri Joe MD at 5:25 EDT , Service support , Pelvis X-Ray 04/02/20 03:50 IMPRESSION: Old healed left intertrochanteric fracture. No demonstrated acute fracture, dislocation, or destructive osseous lesion. Electronically Signed: Yuri Joe MD at 5:30 EDT , Service support , Thoracic Spine X-Ray 04/02/20 03:50 IMPRESSION: Multilevel degenerative changes. No demonstrated fracture or subluxation. Electronically Signed: Yuri Joe MD at 5:33 EDT , Service support , Current Medications Acetaminophen (Tylenol) 650 mg PO Q6H PRN PRN PRN Reason: Pain Score 1-10/Temp > 100.7 F Last Admin: 04/03/20 23:19 Dose: 650 mg Documented by: Albuterol Sulfate (Ventolin Aerosols) 2.5 mg INHALATION Q2H PRN PRN PRN Reason: SOB/Wheezing Albuterol/Ipratropium (Duoneb) 3 ml INHALATION Q4H.RT [facility] Last Admin: 04/04/20 11:15 Dose: 3 ml Documented by: Dextrose (D50w Syringe) 0 gm IV X1 PRN; Protocol PRN Reason: Hypoglycemia Enoxaparin Sodium (Lovenox) 40 mg SC DAILY [facility] Flecainide Acetate (Tambocor) 150 mg PO BID [facility] Last Admin: 04/04/20 09:49 Dose: 150 mg Documented by: Fluticasone Propionate (Flonase Nasal [place]) 1 spray NASAL DAILY [facility] Last Admin: 04/04/20 09:50 Dose: 1 spray Documented by: Glucagon () 1 mg IM .X1 PRN PRN Reason: Hypoglycemia Sodium Chloride () 250 mls @ 15 mls/hr IV .[id number] PRN PRN Reason: Saline Flush Sodium Chloride () 250 mls @ 15 mls/hr IV .[id number] PRN PRN Reason: Additional IVPB Infusion Lactobacillus Acidophilus (Acidophilus) 1 tablet PO BID [facility] Last Admin: 04/04/20 09:49 Dose: 1 tablet Documented by: Melatonin (Melatonin) 3 mg PO QHS PRN PRN PRN Reason: INSOMNIA Methylprednisolone (Solu-Medrol) 40 mg IV Q8 [facility] Last Admin: 04/04/20 06:23 Dose: 40 mg Documented by: Metoprolol Tartrate (Lopressor (Beta Katerine)) 25 mg PO BID [facility] Last Admin: 04/04/20 09:49 Dose: 25 mg Documented by: Nystatin (Mycostatin Powder) 1 applic TOPICAL 0600,1800,2200 [facility]; Protocol Last Admin: 04/04/20 06:23 Dose: 1 applicatio Documented by: Oxycodone HCl (Oxyir) 5 mg PO Q4H PRN PRN PRN Reason: Pain Score 4-5/10 Last Admin: 04/03/20 23:19 Dose: 5 mg Documented by: Pantoprazole Sodium (Protonix) 40 mg PO DAILY [facility] Last Admin: 04/04/20 09:49 Dose: 40 mg Documented by: Polyethylene Glycol (Miralax) 17 gm PO DAILY [facility] Last Admin: 04/04/20 09:48 Dose: 17 gm Documented by: Prochlorperazine Edisylate (Compazine Iv) 5 mg IV Q4H PRN PRN PRN Reason: Breakthrough Nausea/Vomiting Senna/Docusate Sodium (Senokot-S, Yamilex-Colace) 2 tablet PO BID PRN PRN Reason: Constipation Sodium Chloride () 10 - 40 ml IV UD PRN PRN Reason: SALINE FLUSH Last Admin: 04/04/20 06:24 Dose: 10 ml Documented by: Assessment/Plan All Active Problems (Last Updated 02/28/20 @ 07:[address] Santosh Nobles MD) Generalized weakness (Acute) Dyspnea (Acute) Patient's noncompliance with other medical treatment and regimen (Acute) Hypoxemia (Acute) COPD exacerbation (Acute) Cellulitis of right lower extremity (Acute) Sepsis (Acute) 1. acute on CKD stage 3 baseline creatinine 1.2 increased to 1.78 improved to 1.5 today. acute component Likely from diuretics, on NSAIDs (meloxicam) at home. Advised to stop NSAID use. Underlying diabetic, hypertensive nephropathy. No need for diuretics. Respiratory issue likely to COPD, adenovirus. Hold on diuretic therapy. 2. HTN stable, 3. Frequent falls, refusing rehab 4. COPD, interstitial lung disease. wears oxygen rarely at home 5. chronic pain, avoid NSAIDs. Followup with pain mgmt [facility] nursing staff, case mgmt, hospitalist
[2020-04-04 13:40] LABS: Absolute Lymphocyte Count 0.48 X10^3/uL (0.83-4.51); Absolute Neutrophil Count 14.4 X10^3/uL (2.0-7.7); Basophil# 0.03 X10^3/uL; Basophil% 0.2 % (0-1); Eosinophil# 0.05 X10^3/uL; Eosinophils% 0.3 % (0-5); Hematocrit 44.2 % (37-47); Hemoglobin 13.9 g/dL (12.0-15.0); Lymphocyte # 0.48 X10^3/ul (4.0); Lymphocyte % 3.1 % (19-41); Mean Corp Hgb Conc 31.4 g/dL (32-36); Mean Corpuscular Hgb 31.5 pg (27.0-32.0); Mean Corpuscular Volume 100.2 fL (81-99); Mean Platelet Vol. 10.3 fl (6.2-12.0); Monocyte# 0.39 X10^3/uL; Monocyte% 2.5 % (0-10); NRBC Flagged by Analyzer 0 % (0-5); Neutrophil # 14.38 X10^3/uL (2.7-7.7); Neutrophil % 93.5 % (47-70); POSITIVE DIFFERENTIAL YES; Platelet Count 366 K/mm3 (150-450); RBC Distribution Width CV 13.7 % (11.6-14.6); RBC Distribution Width SD 50.8 fl (35.1-43.9); Red Blood Count 4.41 M/mm3 (4.2-5.4); White Blood Count 15.4 K/mm3 (4.4-11.0)
[2020-04-04 13:41] LABS: Differential Indicated SCAN CRITERIA MET
--- NOTE | 2020-04-04 15:31 | CASEMGMT ---
Pt's daughter is here at this time and this RN CM to room. Per daughter, pt's doctor is still [place] at this time. This RN CM discussed therapy recommendations with pt/daughter at this time and daughter advised pt 'I can't take care of you at home.' Daughter asked about pt going to TCU and per [facility], there are no beds available in TCU at this time. Pt/daughter updated and then pt initially agreed to go to [facility] but then stated 'I never said I would go anywhere.' Pt then starts stating that if I go anywhere, they will take my house and then where will my family live. But then pt's starts talking about Dr. Vance's office and that she can't tell this RN CM about someone who works there. Pt then states that she can just rehab overnight here then we can send her some tomorrow. Advised pt that that is not how it works at this time. This RN CM advised pt/daughter that CM would check in with pt/daughter again tomorrow, voice understanding. Markie RN CM
--- NOTE | 2020-04-04 15:53 | PCM.PN.HOSP ---
Patient Problems: Active and Suspected Problems (Last Updated 02/28/20 @ 07:[address] Santosh Nobles MD) Generalized weakness (Acute) Dyspnea (Acute) Patient's noncompliance with other medical treatment and regimen (Acute) Hypoxemia (Acute) COPD exacerbation (Acute) Reason for Visit: Follow-up for COPD exacerbation Objective: Patient as per nursing staff he still gets visual hallucination and sometimes abnormal behavior. Patient is awake and oriented x3. Refusing to for going to [place] [facility]. Has recurrent fall history. Bilateral wheezing. No fever. On 3 L of oxygen Physical exam General: Alert, Oriented x3, Cooperative HEENT: Atraumatic, PERRLA, EOMI, Normocephalic Oral: No Gingival or Mucosal Lesions/ Ulcerations Neck: Supple, No JVD, Negative Carotid Bruits Lungs: Air entry diminished in bilateral lung bases. Mild bilateral wheezing is present. Cardiovascular: Regular rate, Regular Rhythm, Normal S1, Normal S2, No murmurs Abdomen: Bowel Sounds Present, Soft, Non Tender, Non-Distended : No renal angle tenderness. No suprapubic tenderness. Extremities: No edema, Capillary Refill Less than 3 Seconds Skin: Skin is dry with fissuring on the bilateral legs and feet, more on the right foot. No open ulcer Musculoskeletal: No Tenderness to Palpation of Joints or Extremities Neurological: Cranial nerves II-XII grossly intact, Deep Tendon Reflexes 2+/4 and Symmetrical, Neuro grossly intact Psych/Mental Status: Normal Affect, Appropriate. Vitals/I&O's: Vital Signs Temp Pulse Resp BP Pulse Ox 97.8 F 70 16 135/61 H 91 04/04/20 15:05 04/04/20 15:05 04/04/20 15:05 04/04/20 15:05 04/04/20 15:05 Oxygen Flow Rate (L/min) 3 Oxygen Delivery Method Nasal Cannula Weight: 245 lb 2.464 oz Body Mass Index (BMI) 40.8 Intake and Output for Last 24 Hours 04/02/20 04/03/20 04/04/20 23:59 23:59 23:59 Intake Total 462 / 462 822 / 822 320 / 320 Output Total 1050 / 1050 1600 / 1600 220 / 220 Balance -588 / -588 -778 / -778 100 / 100 Microbiology Past 72 Hours 04/02/20 08:04 Mucosa - Nasopharyngeal Respiratory Panel (PCR) - Final Adenovirus Laboratory Results 04/04/20 09:16: Sodium 137, Potassium 4.5, Chloride 101, Carbon Dioxide 33.0 H, Anion Gap 3 L, BUN 44 H, Creatinine 1.57 H, Estim Creat Clear Calc 30.43, Est GFR (MDRD) Af Amer 42 L, Est GFR (MDRD) Non-Af 35 L, BUN/Creatinine Ratio 28.0 H, Glucose 124 H, Calcium 9.5, Phosphorus 3.3, Total Bilirubin 0.40, AST 20, ALT 24, Alkaline Phosphatase 82, Total Protein 7.1, Albumin 3.1 L, Globulin 4.0, Albumin/Globulin Ratio 0.8 L 04/04/20 09:17: WBC 15.4 H, RBC 4.41, Hgb 13.9, Hct 44.2, MCV 100.2 H, MCH 31.5, MCHC 31.4 L, RDW Std Deviation 50.8 H, RDW Coeff of Ankit 13.7, Plt Count 366, MPV 10.3, Immature Gran % (Auto) 0.400, Neut % (Auto) 93.5 H, Lymph % (Auto) 3.1 L, Pike % (Auto) 2.5, Eos % (Auto) 0.3, Baso % (Auto) 0.2, Absolute Neuts (auto) 14.4 H, Absolute Lymphs (auto) 0.48 L, Nucleated RBC % 0 04/04/20 09:17: Sodium Cancelled, Potassium Cancelled, Chloride Cancelled, Carbon Dioxide Cancelled, Anion Gap Cancelled, BUN Cancelled, Creatinine Cancelled, Estim Creat Clear Calc Cancelled, Est GFR (MDRD) Af Amer Cancelled, Est GFR (MDRD) Non-Af Cancelled, BUN/Creatinine Ratio Cancelled, Glucose Cancelled, Calcium Cancelled, Total Bilirubin Cancelled, AST Cancelled, ALT Cancelled, Alkaline Phosphatase Cancelled, Total Protein Cancelled, Albumin Cancelled, Globulin Cancelled, Albumin/Globulin Ratio Cancelled 04/04/20 09:55: Urine Creatinine 129.00 04/04/20 09:55: Ur Random Sodium 128 Current Medications Acetaminophen (Tylenol) 650 mg PO Q6H PRN PRN PRN Reason: Pain Score 1-10/Temp > 100.7 F Last Admin: 04/03/20 23:19 Dose: 650 mg Documented by: Albuterol Sulfate (Ventolin Aerosols) 2.5 mg INHALATION Q2H PRN PRN PRN Reason: SOB/Wheezing Albuterol/Ipratropium (Duoneb) 3 ml INHALATION Q4H.RT [facility] Last Admin: 04/04/20 14:19 Dose: 3 ml Documented by: Dextrose (D50w Syringe) 0 gm IV X1 PRN; Protocol PRN Reason: Hypoglycemia Enoxaparin Sodium (Lovenox) 40 mg SC DAILY [facility] Flecainide Acetate (Tambocor) 150 mg PO BID [facility] Last Admin: 04/04/20 09:49 Dose: 150 mg Documented by: Fluticasone Propionate (Flonase Nasal [place]) 1 spray NASAL DAILY [facility] Last Admin: 04/04/20 09:50 Dose: 1 spray Documented by: Glucagon () 1 mg IM .X1 PRN PRN Reason: Hypoglycemia Sodium Chloride () 250 mls @ 15 mls/hr IV .[id number] PRN PRN Reason: Saline Flush Sodium Chloride () 250 mls @ 15 mls/hr IV .[id number] PRN PRN Reason: Additional IVPB Infusion Lactobacillus Acidophilus (Acidophilus) 1 tablet PO BID [facility] Last Admin: 04/04/20 09:49 Dose: 1 tablet Documented by: Melatonin (Melatonin) 3 mg PO QHS PRN PRN PRN Reason: INSOMNIA Methylprednisolone (Solu-Medrol) 40 mg IV Q8 [facility] Last Admin: 04/04/20 13:39 Dose: 40 mg Documented by: Metoprolol Tartrate (Lopressor (Beta Katerine)) 25 mg PO BID [facility] Last Admin: 04/04/20 09:49 Dose: 25 mg Documented by: Nystatin (Mycostatin Powder) 1 applic TOPICAL 0600,1800,2200 [facility]; Protocol Last Admin: 04/04/20 06:23 Dose: 1 applicatio Documented by: Oxycodone HCl (Oxyir) 5 mg PO Q4H PRN PRN PRN Reason: Pain Score 4-5/10 Last Admin: 04/03/20 23:19 Dose: 5 mg Documented by: Pantoprazole Sodium (Protonix) 40 mg PO DAILY [facility] Last Admin: 04/04/20 09:49 Dose: 40 mg Documented by: Polyethylene Glycol (Miralax) 17 gm PO DAILY [facility] Last Admin: 04/04/20 09:48 Dose: 17 gm Documented by: Prochlorperazine Edisylate (Compazine Iv) 5 mg IV Q4H PRN PRN PRN Reason: Breakthrough Nausea/Vomiting Senna/Docusate Sodium (Senokot-S, Yamilex-Colace) 2 tablet PO BID PRN PRN Reason: Constipation Sodium Chloride () 10 - 40 ml IV UD PRN PRN Reason: SALINE FLUSH Last Admin: 04/04/20 13:39 Dose: 10 ml Documented by: STROKE Vital Signs/Narrative: Vital Signs Temp Pulse Resp BP Pulse Ox 04/04/20 15:05 97.8 F 70 16 135/61 H 91 04/04/20 14:50 72 04/04/20 14:19 66 16 Medical Necessity - Tobacco Use Smoking Status: Former smoker Assessment/Plan All Active Problems (Last Updated 02/28/20 @ 07:[address] Santosh Nobles MD) Generalized weakness (Acute) Dyspnea (Acute) Patient's noncompliance with other medical treatment and regimen (Acute) Hypoxemia (Acute) COPD exacerbation (Acute) Cellulitis of right lower extremity (Acute) Sepsis (Acute) The patient is a 69 year old F with multiple comorbidities as listed, last admission in February 2020 for right lower leg cellulitis came to ER with shortness of breath, recurrent fall and generalized weakness Chest x-ray shows mild bilateral congestion with small left pleural effusion and bibasilar atelectasis and overall clinical assessment consistent with CHF and COPD exacerbation along with recurrent fall. 1. Acute on chronic diastolic heart failure/HFpEF: Patient is being admitted in PCU. BNP is elevated 1600. Patient blood pressure is low therefore started on low-dose of Lasix 20 mg twice daily and titrate as BP and urine output permits. Heart failure core measures including fluid restriction, 2 g salt diet, strict input and output and Chon wrap bandage. 2D echo 05/14/19 is reported as mildly dilated left ventricle with normal left ventricular systolic function and estimated EF of 55% with segmental dysfunction and stage I diastolic dysfunction as well as inferobasal hypokinesia. RVSP is 39 mmHg. Mild to moderate tricuspid valve insufficiency. 04/03: Patient BUN/creatinine high although not much change. Bicarb 34. During previous admission also patient bicarb was high on Lasix. Lasix discontinued as patient leg edema and shortness of breath improved. 2. COPD exacerbation from adenovirus acute bronchitis: Patient oxygen requirement 5 L; baseline requirement is 2 to 3 L/min. On bronchodilator DuoNeb, albuterol PRN, Solu-Medrol, incentive spirometry, chest physiotherapy and oxygen therapy. Currently does not seem patient has pneumonia. She had a history of strep pneumonia in March 2018. Respiratory panel positive of adenovirus. COVID PCR negative. No fever 04/04: Leukocytosis probably secondary to Solu-Medrol. Solu-Medrol discontinued. Prednisone from tomorrow a.m. 3. Acute kidney injury on CKD stage III: BUN/creatinine 40/1.75 increased from the baseline 33/1.5. It seems mainly prerenal secondary to CHF exacerbation. Monitor kidney function electrolytes. K5.0. Bicarb 32. 04/03: Increasing bicarb and mild increase in creatinine. 04/04: Seen by business analytics manager. Creatinine improved from 1.78-1.57. Acute kidney injury mostly secondary to diuretic/NSAID. Diuretic has been discontinued. Random urine sodium 128. 4. Acute on chronic hypoxic respiratory failure due to CHF exacerbation or COPD exacerbation/both: Patient is on 5 L of oxygen in ER. 5. Debility and generalized weakness, recurrent fall secondary to degenerative joint disease, COPD and CHF: PT and OT. Patient went to TCU in May 2019. 6 arrhythmia: Paroxysmal A. fib status post ablation, chronic right bundle branch block on flecainide: Twelve-lead EKG was done in ED and shows normal sinus rhythm with right bundle branch block, first-degree AV block at 63 bpm. QTc 562 ms. Repeat EKG does not show change. Patient does not have chest pain. Avoid QTC prolonging drugs including ondansetron, Zithromax and others. Home medication venlafaxine on hold. DVT prohylaxis: lovenox, adjusted to creatinine clearance, 30 mL/min Living will/advanced directive/end of life care: Patient does not have living will. She states her daughter is the power of erisa attorney for health. After discussion of procedures involved with full code, DNR CC arrest and DNR CC, the patient feels weak and not able to make a clear decision but wants to keep it as full code. Patient does want artificial life support including intubation, tube feed, ventilator and/chest compression, central venous catheter, vasopressor and DC shock if needed in case of terminal condition or life emergency Clinical Impression(s) from Imaging Studies Chest X-Ray 04/02/20 03:49 IMPRESSION: Cardiomegaly with CHF and small left pleural effusion. Bilateral basilar atelectasis. Old granulomatous disease. Femur X-Ray 04/02/20 03:50 IMPRESSION: Old healed intertrochanteric fracture, with intact fixation hardware. No demonstrated acute fracture, dislocation, or destructive osseous lesion. Pelvis X-Ray 04/02/20 03:50 IMPRESSION: Old healed left intertrochanteric fracture. No demonstrated acute fracture, dislocation, or destructive osseous lesion. Electronically Signed: Yuri Joe MD at 5:30 EDT , Service support , Thoracic Spine X-Ray 04/02/20 03:50 IMPRESSION: Multilevel degenerative changes. No demonstrated fracture or subluxation. Multi Select Codes - Visit Charges Visit Charges: 51073 Subs Hosp L2
--- NOTE | 2020-04-04 19:27 | NURSING ---
This RN spoke with patient and her daughter regarding discharge planning. Patient adamantly wants to go home at discharge. However, she appears confused. I spoke with patient's daughter privately and she expressed that she does not feel safe with patient returning home without further therapy. Daughter will return Tuesday morning at 1000 with hopes to speak with CM and MD without the presence of her mother to make discharge plan.
[2020-04-04] MEDS: Acetaminophen 325 MG Tablet 650 MG PO (20:00)
[2020-04-04] MEDS: oxyCODONE 5 MG Tablet PO (20:00)
[2020-04-05] VITALS (18 sets, daily range): BP systolic 123–141; BP diastolic 59–86; PULSE 63–76; RESP 18–20; TEMP 36.5–36.9; O2SAT 96–100
[2020-04-05] MEDS: Nystatin Powder 15gm Bottle 1 APPLIC TOPICAL ×3 (06:19→22:11)
[2020-04-05 06:36] LABS: Absolute Lymphocyte Count 1.22 X10^3/uL (0.83-4.51); Basophil# 0.02 X10^3/uL; Basophil% 0.1 % (0-1); Eosinophil# 0.01 X10^3/uL; Eosinophils% 0.1 % (0-5); Hematocrit 45.2 % (37-47); Hemoglobin 14.5 g/dL (12.0-15.0); Lymphocyte # 1.22 X10^3/ul (4.0); Lymphocyte % 7.4 % (19-41); Mean Corp Hgb Conc 32.1 g/dL (32-36); Mean Corpuscular Hgb 31.9 pg (27.0-32.0); Mean Corpuscular Volume 99.3 fL (81-99); Monocyte# 1.12 X10^3/uL; Monocyte% 6.8 % (0-10); NRBC Flagged by Analyzer 0 % (0-5); Neutrophil # 14.01 X10^3/uL (2.7-7.7); Neutrophil % 84.8 % (47-70); Platelet Count 366 K/mm3 (150-450); RBC Distribution Width CV 13.7 % (11.6-14.6); RBC Distribution Width SD 50.1 fl (35.1-43.9); Red Blood Count 4.55 M/mm3 (4.2-5.4); White Blood Count 16.5 K/mm3 (4.4-11.0)
[2020-04-05] MEDS: Ipratropium/Albuterol Sulfate 3 ML AMPUL.NEB INHALATION ×5 (06:53→23:16)
[2020-04-05 07:19] LABS: ALB/GLOB Ratio 0.8 RATIO (0.9-2.4); AST(SGOT) 14 U/L (15-37); Alanine Aminotransfer ALT/SGPT 24 U/L (13-56); Alkaline Phosphatase 75 U/L (45-117); Anion Gap 0 (5-15); BUN 44 mg/dL (7-18); BUN/Creat Ratio 29.3 RATIO (10-20); Calcium,Total 9.4 mg/dL (8.5-10.1); Chloride 105 mmol/L (98-107); EST Glomerular Filtration Rate 37 mL/min (>60); Est Glom Filt Rate - Afr Amer 44 mL/min (>60); Estimated Creatinine Clearance 31.85 ml/min; Glucose 105 mg/dL (74-106); Phosphorus 3.1 mg/dL (2.5-4.9); Potassium 4.3 mmol/L (3.5-5.1); Sodium Level 141 mmol/L (136-145)
[2020-04-05] MEDS: Polyethylene Glycol 3350 17 GM PACKET PO (11:25)
[2020-04-05] MEDS: Enoxaparin 40 MG/0.4 ML Syringe SC (11:25)
[2020-04-05] MEDS: Metoprolol Tartrate 25 MG Tablet PO ×2 (11:25→22:09)
[2020-04-05] MEDS: Pantoprazole Sodium 40 MG Tablet PO (11:26)
[2020-04-05] MEDS: predniSONE 20 MG Tablet 40 MG PO (11:26)
[2020-04-05] MEDS: Flecainide 150 MG Tablet PO ×2 (11:26→22:09)
[2020-04-05] MEDS: Fluticasone 0.05% 1 SPRAY NASAL.SRY NASAL (11:28)
--- NOTE | 2020-04-05 13:26 | CASEMGMT ---
Daughter requested to speak with this RN CM upon arriving to floor at the desk. Daughter states that pt is confused normally at home as well and daughter does not want to upset pt by sending her to SNF. Daughter provided with list of local SNF's at this time and therapy also spoke with daughter and advised that pt should go to SNF at discharge. This RN CM advised daughter that CM would f/u with pt/daughter on Tuesday, voices understanding. Daughter voices no further questions/concerns/needs at this time. SStaten RN CM
--- NOTE | 2020-04-05 14:11 | NURSING ---
Pt attempted to have BM, this nurse noted that pt has not had a BM since 04/01/20. Will give Senokot prn and milk of mg.
[2020-04-05] MEDS: Senna/Docusate Sodium 1 Tablet 2 TABLET PO (14:21)
[2020-04-05] MEDS: Acetaminophen 325 MG Tablet 650 MG PO ×2 (14:21→22:09)
--- NOTE | 2020-04-05 14:41 | PN_ITS ---
Patient Problems: Active and Suspected Problems (Last Updated 02/28/20 @ 07:[address] Santosh Nobles MD) Generalized weakness (Acute) Dyspnea (Acute) Patient's noncompliance with other medical treatment and regimen (Acute) Hypoxemia (Acute) COPD exacerbation (Acute) Reason for Visit: Follow-up for COPD express secondary to adenovirus. Objective: No fever or chills. Patient on 3 L of oxygen. Patient is frustrated of not going home but she has history of recurrent fall and needs subacute rehab. Physical exam Physical exam General: Alert, Oriented x3, Cooperative HEENT: Atraumatic, PERRLA, EOMI, Normocephalic Oral: No Gingival or Mucosal Lesions/ Ulcerations Neck: Supple, No JVD, Negative Carotid Bruits Lungs: Air entry diminished in bilateral lung bases. Wheezing and rhonchi have much improved. On 3 L of oxygen. Cardiovascular: Regular rate, Regular Rhythm, Normal S1, Normal S2, No murmurs Abdomen: Bowel Sounds Present, Soft, Non Tender, Non-Distended : No renal angle tenderness. No suprapubic tenderness. Extremities: No edema, Capillary Refill Less than 3 Seconds Skin: Skin is dry with fissuring on the bilateral legs and feet, more on the right foot. No open ulcer Musculoskeletal: No Tenderness to Palpation of Joints or Extremities Neurological: Cranial nerves II-XII grossly intact, Deep Tendon Reflexes 2+/4 and Symmetrical, Neuro grossly intact Psych/Mental Status: Normal Affect, Appropriate. Vitals/I&O's: Vital Signs Temp Pulse Resp BP Pulse Ox 97.7 F L 72 20 H 129/59 H 96 04/05/20 11:21 04/05/20 12:00 04/05/20 11:56 04/05/20 11:21 04/05/20 11:21 Oxygen Flow Rate (L/min) 3 Oxygen Delivery Method Nasal Cannula Weight: 240 lb 11.916 oz Body Mass Index (BMI) 40.8 Intake and Output for Last 24 Hours 04/03/20 04/04/20 04/05/20 23:59 23:59 23:59 Intake Total 822 / 822 820 / 820 200 / 200 Output Total 1600 / 1600 520 / 520 250 / 250 Balance -778 / -778 300 / 300 -50 / -50 Microbiology Past 72 Hours 04/02/20 08:04 Mucosa - Nasopharyngeal Respiratory Panel (PCR) - Final Adenovirus Laboratory Results 04/05/20 06:22: Sodium 141, Potassium 4.3, Chloride 105, Carbon Dioxide 36.0 H, Anion Gap 0 L, BUN 44 H, Creatinine 1.50 H, Estim Creat Clear Calc 31.85, Est GFR (MDRD) Af Amer 44 L, Est GFR (MDRD) Non-Af 37 L, BUN/Creatinine Ratio 29.3 H , Glucose 105, Calcium 9.4, Phosphorus 3.1, Total Bilirubin 0.40, AST 14 L, ALT 24, Alkaline Phosphatase 75, Total Protein 7.0, Albumin 3.0 L, Globulin 4.0, Albumin/Globulin Ratio 0.8 L 04/05/20 06:22: WBC 16.5 H, RBC 4.55, Hgb 14.5, Hct 45.2, MCV 99.3 H, MCH 31.9, MCHC 32.1, RDW Std Deviation 50.1 H, RDW Coeff of Ankit 13.7, Plt Count 366, MPV 10.0, Immature Gran % (Auto) 0.800, Neut % (Auto) 84.8 H, Lymph % (Auto) 7.4 L, [place] % (Auto) 6.8, Eos % (Auto) 0.1, Baso % (Auto) 0.1, Absolute Neuts (auto) 14.0 H, Absolute Lymphs (auto) 1.22, Nucleated RBC % 0 Current Medications Acetaminophen (Tylenol) 650 mg PO Q6H PRN PRN PRN Reason: Pain Score 1-10/Temp > 100.7 F Last Admin: 04/05/20 14:21 Dose: 650 mg Documented by: Albuterol Sulfate (Ventolin Aerosols) 2.5 mg INHALATION Q2H PRN PRN PRN Reason: SOB/Wheezing Albuterol/Ipratropium (Duoneb) 3 ml INHALATION Q4H.RT [facility] Last Admin: 04/05/20 14:39 Dose: 3 ml Documented by: Dextrose (D50w Syringe) 0 gm IV X1 PRN; Protocol PRN Reason: Hypoglycemia Enoxaparin Sodium (Lovenox) 40 mg SC DAILY [facility] Last Admin: 04/05/20 11:25 Dose: 40 mg Documented by: Flecainide Acetate (Tambocor) 150 mg PO BID [facility] Last Admin: 04/05/20 11:26 Dose: 150 mg Documented by: Fluticasone Propionate (Flonase Nasal [place]) 1 spray NASAL DAILY [facility] Last Admin: 04/05/20 11:28 Dose: 1 spray Documented by: Glucagon () 1 mg IM .X1 PRN PRN Reason: Hypoglycemia Sodium Chloride () 250 mls @ 15 mls/hr IV .[id number] PRN PRN Reason: Saline Flush Sodium Chloride () 250 mls @ 15 mls/hr IV .[id number] PRN PRN Reason: Additional IVPB Infusion Lactobacillus Acidophilus (Acidophilus) 1 tablet PO BID [facility] Last Admin: 04/05/20 11:26 Dose: 1 tablet Documented by: Melatonin (Melatonin) 3 mg PO QHS PRN PRN PRN Reason: INSOMNIA Metoprolol Tartrate (Lopressor (Beta Katerine)) 25 mg PO BID [facility] Last Admin: 04/05/20 11:25 Dose: 25 mg Documented by: Nystatin (Mycostatin Powder) 1 applic TOPICAL 0600,1800,2200 [facility]; Protocol Last Admin: 04/05/20 06:19 Dose: 1 applicatio Documented by: Oxycodone HCl (Oxyir) 5 mg PO Q4H PRN PRN PRN Reason: Pain Score 4-5/10 Last Admin: 04/04/20 20:00 Dose: 5 mg Documented by: Pantoprazole Sodium (Protonix) 40 mg PO DAILY [facility] Last Admin: 04/05/20 11:26 Dose: 40 mg Documented by: Polyethylene Glycol (Miralax) 17 gm PO DAILY [facility] Last Admin: 04/05/20 11:25 Dose: 17 gm Documented by: Prednisone () 40 mg PO DAILY@0800 [facility] Last Admin: 04/05/20 11:26 Dose: 40 mg Documented by: Prochlorperazine Edisylate (Compazine Iv) 5 mg IV Q4H PRN PRN PRN Reason: Breakthrough Nausea/Vomiting Senna/Docusate Sodium (Senokot-S, Yamilex-Colace) 2 tablet PO BID PRN PRN Reason: Constipation Last Admin: 04/05/20 14:21 Dose: 2 tablet Documented by: Sodium Chloride () 10 - 40 ml IV UD PRN PRN Reason: SALINE FLUSH Last Admin: 04/04/20 13:39 Dose: 10 ml Documented by: STROKE Vital Signs/Narrative: Vital Signs Temp Pulse Resp BP Pulse Ox 04/05/20 12:00 72 04/05/20 11:56 20 H 04/05/20 11:25 74 04/05/20 11:21 97.7 F L 74 18 129/59 H 96 Medical Necessity - Tobacco Use Smoking Status: Former smoker Assessment/Plan All Active Problems (Last Updated 02/28/20 @ 07:[address] Santosh Nobles MD) Generalized weakness (Acute) Dyspnea (Acute) Patient's noncompliance with other medical treatment and regimen (Acute) Hypoxemia (Acute) COPD exacerbation (Acute) Cellulitis of right lower extremity (Acute) Sepsis (Acute) The patient is a 69 year old F with multiple comorbidities as listed, last admission in February 2020 for right lower leg cellulitis came to ER with shortness of breath, recurrent fall and generalized weakness Chest x-ray shows mild bilateral congestion with small left pleural effusion and bibasilar atelectasis and overall clinical assessment consistent with CHF and COPD exacerbation along with recurrent fall. 1. Acute on chronic diastolic heart failure/HFpEF: Patient is being admitted in PCU. BNP is elevated 1600. Patient blood pressure is low therefore started on low-dose of Lasix 20 mg twice daily and titrate as BP and urine output permits. Heart failure core measures including fluid restriction, 2 g salt diet, strict input and output and Chon wrap bandage. 2D echo 05/14/19 is reported as mildly dilated left ventricle with normal left ventricular systolic function and estimated EF of 55% with segmental dysfunction and stage I diastolic dysfunction as well as inferobasal hypokinesia. RVSP is 39 mmHg. Mild to moderate tricuspid valve insufficiency. 04/03: Patient BUN/creatinine high although not much change. Bicarb 34. During previous admission also patient bicarb was high on Lasix. Lasix discontinued as patient leg edema and shortness of breath improved. 2. COPD exacerbation from adenovirus acute bronchitis: Patient oxygen requirement 5 L; baseline requirement is 2 to 3 L/min. On bronchodilator DuoNeb, albuterol PRN, Solu-Medrol, incentive spirometry, chest physiotherapy and oxygen therapy. Currently does not seem patient has pneumonia. She had a history of strep pneumonia in March 2018. Respiratory panel positive of adenovirus. COVID PCR negative. No fever 04/04: Leukocytosis probably secondary to Solu-Medrol. Solu-Medrol discontinued. Prednisone from tomorrow a.m. 04/05: Discussed with the daughter regarding inhalers. Patient does not have maintenance or rescue inhaler and cannot afford it. 3. Acute kidney injury on CKD stage III: BUN/creatinine 40/1.75 increased from the baseline 33/1.5. It seems mainly prerenal secondary to CHF exacerbation. Monitor kidney function electrolytes. K5.0. Bicarb 32. 04/03: Increasing bicarb and mild increase in creatinine. 04/04: Seen by split leather mosser. Creatinine improved from 1.78-1.57. Acute kidney injury mostly secondary to diuretic/NSAID. Diuretic has been discontinued. Random urine sodium 128. 04/05: EMMANUEL resolved, creatinine improved to 1.5 I think that is her baseline. 4. Acute on chronic hypoxic respiratory failure due to CHF exacerbation or COPD exacerbation/both: Patient is on 5 L of oxygen in ER. 5. Debility and generalized weakness, recurrent fall secondary to degenerative joint disease, COPD and CHF: PT and OT. Patient went to TCU in May 2019. 6 arrhythmia: Paroxysmal A. fib status post ablation, chronic right bundle branch block on flecainide: Twelve-lead EKG was done in ED and shows normal sinus rhythm with right bundle branch block, first-degree AV block at 63 bpm. QTc 562 ms. Repeat EKG does not show change. Patient does not have chest pain. Avoid QTC prolonging drugs including ondansetron, Zithromax and others. Home medication venlafaxine on hold. DVT prohylaxis: lovenox, adjusted to creatinine clearance, 30 mL/min Living will/advanced directive/end of life care: Patient does not have living will. She states her daughter is the power of privacy attorney for health. After discussion of procedures involved with full code, DNR CC arrest and DNR CC, the patient feels weak and not able to make a clear decision but wants to keep it as full code. Patient does want artificial life support including intubation, tube feed, ventilator and/chest compression, central venous catheter, vasopressor and DC shock if needed in case of terminal condition or life emergency Clinical Impression(s) from Imaging Studies Chest X-Ray 04/02/20 03:49 IMPRESSION: Cardiomegaly with CHF and small left pleural effusion. Bilateral basilar atelectasis. Old granulomatous disease. Femur X-Ray 04/02/20 03:50 IMPRESSION: Old healed intertrochanteric fracture, with intact fixation hardware. No demonstrated acute fracture, dislocation, or destructive osseous lesion. Pelvis X-Ray 04/02/20 03:50 IMPRESSION: Old healed left intertrochanteric fracture. No demonstrated acute fracture, dislocation, or destructive osseous lesion. Electronically Signed: Yuri Joe MD at 5:30 EDT , Service support , Thoracic Spine X-Ray 04/02/20 03:50 IMPRESSION: Multilevel degenerative changes. No demonstrated fracture or subluxation. Inpatient E&M: [id number] [facility] Hosp L2
[2020-04-05] MEDS: oxyCODONE 5 MG Tablet PO (16:44)
[2020-04-05] MEDS: Magnesium Hydroxide 30 ML UDC 15 ML PO (16:45)
[2020-04-05] MEDS: 0.9% Saline Lock 10 ML Syringe IV (20:22)
[2020-04-06] VITALS (15 sets, daily range): BP systolic 108–144; BP diastolic 61–70; PULSE 63–81; RESP 18–20; TEMP 36.5–36.7; O2SAT 93–100
[2020-04-06] MEDS: Nystatin Powder 15gm Bottle 1 APPLIC TOPICAL ×2 (06:11→21:24)
[2020-04-06 06:20] LABS: Absolute Neutrophil Count 11.5 X10^3/uL (2.0-7.7); Basophil# 0.03 X10^3/uL; Basophil% 0.2 % (0-1); Eosinophil# 0.01 X10^3/uL; Eosinophils% 0.1 % (0-5); Hematocrit 46.8 % (37-47); Hemoglobin 14.6 g/dL (12.0-15.0); Lymphocyte % 8.6 % (19-41); Mean Corp Hgb Conc 31.2 g/dL (32-36); Mean Corpuscular Hgb 31.4 pg (27.0-32.0); Mean Corpuscular Volume 100.6 fL (81-99); Mean Platelet Vol. 10.4 fl (6.2-12.0); Monocyte# 1.02 X10^3/uL; Monocyte% 7.3 % (0-10); NRBC Flagged by Analyzer 0 % (0-5); Neutrophil # 11.49 X10^3/uL (2.7-7.7); Neutrophil % 82.9 % (47-70); Platelet Count 374 K/mm3 (150-450); RBC Distribution Width CV 13.8 % (11.6-14.6); RBC Distribution Width SD 51.4 fl (35.1-43.9); Red Blood Count 4.65 M/mm3 (4.2-5.4); White Blood Count 13.9 K/mm3 (4.4-11.0)
[2020-04-06 07:07] LABS: Albumin, Serum 3.1 g/dL (3.2-5.0); BUN 45 mg/dL (7-18); BUN/Creat Ratio 33.8 RATIO (10-20); Calcium,Total 9.3 mg/dL (8.5-10.1); Chloride 104 mmol/L (98-107); Creatinine, Serum 1.33 mg/dL (0.55-1.02); EST Glomerular Filtration Rate 42 mL/min (>60); Est Glom Filt Rate - Afr Amer 51 mL/min (>60); Estimated Creatinine Clearance 35.92 ml/min; Glucose 115 mg/dL (74-106); Phosphorus 2.1 mg/dL (2.5-4.9); Potassium 4.2 mmol/L (3.5-5.1); Sodium Level 139 mmol/L (136-145)
[2020-04-06] MEDS: Ipratropium/Albuterol Sulfate 3 ML AMPUL.NEB INHALATION ×4 (07:07→19:54)
[2020-04-06] MEDS: predniSONE 20 MG Tablet 40 MG PO (09:23)
[2020-04-06] MEDS: Metoprolol Tartrate 25 MG Tablet PO ×2 (09:23→21:23)
[2020-04-06] MEDS: Senna/Docusate Sodium 1 Tablet 2 TABLET PO (09:23)
[2020-04-06] MEDS: Pantoprazole Sodium 40 MG Tablet PO (09:23)
[2020-04-06] MEDS: Acetaminophen 325 MG Tablet 650 MG PO ×3 (09:23→21:23)
[2020-04-06] MEDS: Flecainide 150 MG Tablet PO ×2 (09:23→21:24)
[2020-04-06] MEDS: Enoxaparin 40 MG/0.4 ML Syringe SC (09:24)
[2020-04-06] MEDS: Polyethylene Glycol 3350 17 GM PACKET PO (09:24)
[2020-04-06] MEDS: Fluticasone 0.05% 1 SPRAY NASAL.SRY NASAL (09:25)
--- NOTE | 2020-04-06 10:45 | NURSING ---
pt agitated and frequent call light use- angry states she wants to leave but only able to leave voicemail message on her daughters phone. said nurse phoned number to Samantha listed in demographic sheet, requesting Samantha phone back to [facility] to speak with nurse/ pt.
--- NOTE | 2020-04-06 13:24 | PN_ITS ---
Patient Problems: Active and Suspected Problems (Last Updated 02/28/20 @ 07:[address] Santosh Nobles MD) Generalized weakness (Acute) Dyspnea (Acute) Patient's noncompliance with other medical treatment and regimen (Acute) Hypoxemia (Acute) COPD exacerbation (Acute) Reason for Visit: No fever or chills. Discussed with the patient again for SNF placement. Patient has also anxiety and depression. Physical exam General: Alert, Oriented x3, Cooperative HEENT: Atraumatic, PERRLA, EOMI, Normocephalic Oral: No Gingival or Mucosal Lesions/ Ulcerations Neck: Supple, No JVD, Negative Carotid Bruits Lungs: Air entry diminished in bilateral lung bases. No crepitation/rhonchi. On 2 L of oxygen Cardiovascular: Regular rate, Regular Rhythm, Normal S1, Normal S2, No murmurs Abdomen: Bowel Sounds Present, Soft, Non Tender, Non-Distended : No renal angle tenderness. No suprapubic tenderness. Extremities: No edema, Capillary Refill Less than 3 Seconds Skin: Dry skin with multiple fissuring lower legs. No open ulcer. Musculoskeletal: No Tenderness to Palpation of Joints or Extremities Neurological: Cranial nerves II-XII grossly intact, Deep Tendon Reflexes 2+/4 and Symmetrical, Neuro grossly intact Psych/Mental Status: Normal Affect, Appropriate. Vitals/I&O's: Vital Signs Temp Pulse Resp BP Pulse Ox 97.8 F 68 19 H 144/70 H 94 04/06/20 09:16 04/06/20 09:23 04/06/20 11:41 04/06/20 09:16 04/06/20 09:16 Oxygen Flow Rate (L/min) 2 Oxygen Delivery Method Nasal Cannula Weight: 244 lb 11.41 oz Body Mass Index (BMI) 40.8 Intake and Output for Last 24 Hours 04/04/20 04/05/20 04/06/20 23:59 23:59 23:59 Intake Total 820 / 820 1120 / 1120 Output Total 520 / 520 250 / 250 Balance 300 / 300 870 / 870 Microbiology Past 72 Hours 04/02/20 08:04 Mucosa - Nasopharyngeal Respiratory Panel (PCR) - Final Adenovirus Laboratory Results 04/06/20 05:10: Sodium 139, Potassium 4.2, Chloride 104, Carbon Dioxide 34.0 H, BUN 45 H, Creatinine 1.33 H, Estim Creat Clear Calc 35.92, Est GFR (MDRD) Af Amer 51 L, Est GFR (MDRD) Non-Af 42 L, BUN/Creatinine Ratio 33.8 H, Glucose 115 H, Calcium 9.3, Phosphorus 2.1 L, Albumin 3.1 L 04/06/20 05:10: WBC 13.9 H, RBC 4.65, Hgb 14.6, Hct 46.8, MCV 100.6 H, MCH 31.4, MCHC 31.2 L, RDW Std Deviation 51.4 H, RDW Coeff of Ankit 13.8, Plt Count 374, MPV 10.4, Immature Gran % (Auto) 0.900, Neut % (Auto) 82.9 H, Lymph % (Auto) 8.6 L, [place] % (Auto) 7.3, Eos % (Auto) 0.1, Baso % (Auto) 0.2, Absolute Neuts (auto) 11.5 H, Absolute Lymphs (auto) 1.20, Nucleated RBC % 0 Current Medications Acetaminophen (Tylenol) 650 mg PO Q6H PRN PRN PRN Reason: Pain Score 1-10/Temp > 100.7 F Last Admin: 04/06/20 09:23 Dose: 650 mg Documented by: Albuterol Sulfate (Ventolin Aerosols) 2.5 mg INHALATION Q2H PRN PRN PRN Reason: SOB/Wheezing Albuterol/Ipratropium (Duoneb) 3 ml INHALATION Q4H.RT [facility] Last Admin: 04/06/20 11:41 Dose: 3 ml Documented by: Buspirone HCl (Buspar) 10 mg PO BID [facility] Dextrose (D50w Syringe) 0 gm IV X1 PRN; Protocol PRN Reason: Hypoglycemia Enoxaparin Sodium (Lovenox) 40 mg SC DAILY [facility] Last Admin: 04/06/20 09:24 Dose: 40 mg Documented by: Flecainide Acetate (Tambocor) 150 mg PO BID [facility] Last Admin: 04/06/20 09:23 Dose: 150 mg Documented by: Fluticasone Propionate (Flonase Nasal [place]) 1 spray NASAL DAILY [facility] Last Admin: 04/06/20 09:25 Dose: 1 spray Documented by: Glucagon () 1 mg IM .X1 PRN PRN Reason: Hypoglycemia Sodium Chloride () 250 mls @ 15 mls/hr IV .[id number] PRN PRN Reason: Saline Flush Sodium Chloride () 250 mls @ 15 mls/hr IV .[id number] PRN PRN Reason: Additional IVPB Infusion Lactobacillus Acidophilus (Acidophilus) 1 tablet PO BID [facility] Last Admin: 04/06/20 09:24 Dose: 1 tablet Documented by: Melatonin (Melatonin) 3 mg PO QHS PRN PRN PRN Reason: INSOMNIA Metoprolol Tartrate (Lopressor (Beta Katerine)) 25 mg PO BID [facility] Last Admin: 04/06/20 09:23 Dose: 25 mg Documented by: Nystatin (Mycostatin Powder) 1 applic TOPICAL 0600,1800,2200 [facility]; Protocol Last Admin: 04/06/20 06:11 Dose: 1 applicatio Documented by: Oxycodone HCl (Oxyir) 5 mg PO Q4H PRN PRN PRN Reason: Pain Score 4-5/10 Last Admin: 04/05/20 16:44 Dose: 5 mg Documented by: Pantoprazole Sodium (Protonix) 40 mg PO DAILY [facility] Last Admin: 04/06/20 09:23 Dose: 40 mg Documented by: Polyethylene Glycol (Miralax) 17 gm PO DAILY [facility] Last Admin: 04/06/20 09:24 Dose: 17 gm Documented by: Prednisone () 40 mg PO DAILY@0800 [facility] Last Admin: 04/06/20 09:23 Dose: 40 mg Documented by: Prochlorperazine Edisylate (Compazine Iv) 5 mg IV Q4H PRN PRN PRN Reason: Breakthrough Nausea/Vomiting Senna/Docusate Sodium (Senokot-S, Yamilex-Colace) 2 tablet PO BID PRN PRN Reason: Constipation Last Admin: 04/06/20 09:23 Dose: 2 tablet Documented by: Sodium Chloride () 10 - 40 ml IV UD PRN PRN Reason: SALINE FLUSH Last Admin: 04/05/20 20:22 Dose: 10 ml Documented by: Venlafaxine HCl (Effexor Xr) 75 mg PO DAILY [facility] Venlafaxine HCl (Effexor Xr) 150 mg PO DAILY [facility] STROKE Vital Signs/Narrative: Vital Signs Resp 04/06/20 11:41 19 H Medical Necessity - Tobacco Use Smoking Status: Former smoker Assessment/Plan All Active Problems (Last Updated 02/28/20 @ 07:[address] Santosh Nobles MD) Generalized weakness (Acute) Dyspnea (Acute) Patient's noncompliance with other medical treatment and regimen (Acute) Hypoxemia (Acute) COPD exacerbation (Acute) Cellulitis of right lower extremity (Acute) Sepsis (Acute) The patient is a 69 year old F with multiple comorbidities as listed, last admission in February 2020 for right lower leg cellulitis came to ER with shortness of breath, recurrent fall and generalized weakness Chest x-ray shows mild bilateral congestion with small left pleural effusion and bibasilar atelectasis and overall clinical assessment consistent with CHF and COPD exacerbation along with recurrent fall. 1. Acute on chronic diastolic heart failure/HFpEF: Patient is being admitted in PCU. BNP is elevated 1600. Patient blood pressure is low therefore started on low-dose of Lasix 20 mg twice daily and titrate as BP and urine output permits. Heart failure core measures including fluid restriction, 2 g salt diet, strict input and output and Chon wrap bandage. 2D echo 05/14/19 is reported as mildly dilated left ventricle with normal left ventricular systolic function and estimated EF of 55% with segmental dysfunction and stage I diastolic dysfunction as well as inferobasal hypokinesia. RVSP is 39 mmHg. Mild to moderate tricuspid valve insufficiency. 04/03: Patient BUN/creatinine high although not much change. Bicarb 34. During previous admission also patient bicarb was high on Lasix. Lasix discontinued as patient leg edema and shortness of breath improved. 2. COPD exacerbation from adenovirus acute bronchitis: Patient oxygen requir ement 5 L; baseline requirement is 2 to 3 L/min. On bronchodilator DuoNeb, albuterol PRN, Solu-Medrol, incentive spirometry, chest physiotherapy and oxygen therapy. Currently does not seem patient has pneumonia. She had a history of strep pneumonia in March 2018. Respiratory panel positive of adenovirus. COVID PCR negative. No fever 04/04: Leukocytosis probably secondary to Solu-Medrol. Solu-Medrol discontinued. Prednisone from tomorrow a.m. 04/05: Discussed with the daughter regarding inhalers. Patient does not have maintenance or rescue inhaler and cannot afford it. 04/06: unit manager convenience stores consult for medication refill as outpatient. SNF placement. 3. Acute kidney injury on CKD stage III: BUN/creatinine 40/1.75 increased from the baseline 33/1.5. It seems mainly prerenal secondary to CHF exacerbation. Monitor kidney function electrolytes. K5.0. Bicarb 32. 04/03: Increasing bicarb and mild increase in creatinine. 04/04: Seen by supply chain coordinator. Creatinine improved from 1.78-1.57. Acute kidney injury mostly secondary to diuretic/NSAID. Diuretic has been discontinued. Random urine sodium 128. 8/: EMMANUEL resolved, creatinine improved to 1.5 I think that is her baseline. 04/06: Creatinine is better. 4. Acute on chronic hypoxic respiratory failure due to CHF exacerbation or COPD exacerbation/both: Patient is on 5 L of oxygen in ER. 5. Debility and generalized weakness, recurrent fall secondary to degenerative joint disease, COPD and CHF: PT and OT. Patient went to TCU in May 2019. 6 arrhythmia: Paroxysmal A. fib status post ablation, chronic right bundle branch block on flecainide: Twelve-lead EKG was done in ED and shows normal sinus rhythm with right bundle branch block, first-degree AV block at 63 bpm. QTc 562 ms. Repeat EKG does not show change. Patient does not have chest pain. Avoid QTC prolonging drugs including ondansetron, Zithromax and others. Home medication venlafaxine on hold. DVT prohylaxis: lovenox, adjusted to creatinine clearance, 30 mL/min Living will/advanced directive/end of life care: Patient does not have living will. She states her daughter is the power of contracts attorney for health. After discussion of procedures involved with full code, DNR CC arrest and DNR CC, the patient feels weak and not able to make a clear decision but wants to keep it as full code. Patient does want artificial life support including intubation, tube feed, ventilator and/chest compression, central venous catheter, vasopressor and DC shock if needed in case of terminal condition or life emergency Discharge plan: SNF placement. Clinical Impression(s) from Imaging Studies Chest X-Ray 04/02/20 03:49 IMPRESSION: Cardiomegaly with CHF and small left pleural effusion. Bilateral basilar atelectasis. Old granulomatous disease. Femur X-Ray 04/02/20 03:50 IMPRESSION: Old healed intertrochanteric fracture, with intact fixation hardware. No demonstrated acute fracture, dislocation, or destructive osseous lesion. Pelvis X-Ray 04/02/20 03:50 IMPRESSION: Old healed left intertrochanteric fracture. No demonstrated acute fracture, dislocation, or destructive osseous lesion. Electronically Signed: Yuri Joe MD at 5:30 EDT , Service support , Thoracic Spine X-Ray 04/02/20 03:50 IMPRESSION: Multilevel degenerative changes. No demonstrated fracture or subluxation. Inpatient E&M: 74977 Subs Hosp L2
--- NOTE | 2020-04-06 15:02 | PN.RENAL_ITS ---
Patient Problems: Active and Suspected Problems (Last Updated 02/28/20 @ 07:[address] Santosh Nobles MD) Generalized weakness (Acute) Dyspnea (Acute) Patient's noncompliance with other medical treatment and regimen (Acute) Hypoxemia (Acute) COPD exacerbation (Acute) Subjective: chronic dyspnea, no cough, no edema. Off lasix and NSAIDs. Creatinine improved to 1.3 today - Physical Exam Vitals/I&O's: Vital Signs Temp Pulse Resp BP Pulse Ox 97.8 F 68 20 H 144/70 H 94 04/06/20 09:16 04/06/20 09:23 04/06/20 14:29 04/06/20 09:16 04/06/20 09:16 Oxygen Flow Rate (L/min) 2 Oxygen Delivery Method Nasal Cannula Weight: 111 kg Body Mass Index (BMI) 40.8 Intake and Output for Last 24 Hours 04/04/20 04/05/20 04/06/20 23:59 23:59 23:59 Intake Total 820 / 820 1120 / 1120 Output Total 520 / 520 250 / 250 Balance 300 / 300 870 / 870 General: Alert, Oriented x3, Cooperative Lungs: Clear to auscultation, Diminished Cardiovascular: Regular rate Abdomen: Bowel Sounds Present, Soft, Non Tender, Non-Distended Extremities: No edema Psych/Mental Status: Alert and oriented to time, place, person, mood and affect Microbiology Past 72 Hours 04/02/20 08:04 Mucosa - Nasopharyngeal Respiratory Panel (PCR) - Final Adenovirus Laboratory Results 04/06/20 05:10: Sodium 139, Potassium 4.2, Chloride 104, Carbon Dioxide 34.0 H, BUN 45 H, Creatinine 1.33 H, Estim Creat Clear Calc 35.92, Est GFR (MDRD) Af Amer 51 L, Est GFR (MDRD) Non-Af 42 L, BUN/Creatinine Ratio 33.8 H, Glucose 115 H, Calcium 9.3, Phosphorus 2.1 L, Albumin 3.1 L 04/06/20 05:10: WBC 13.9 H, RBC 4.65, Hgb 14.6, Hct 46.8, MCV 100.6 H, MCH 31.4, MCHC 31.2 L, RDW Std Deviation 51.4 H, RDW Coeff of Ankit 13.8, Plt Count 374, MPV 10.4, Immature Gran % (Auto) 0.900, Neut % (Auto) 82.9 H, Lymph % (Auto) 8.6 L, [place] % (Auto) 7.3, Eos % (Auto) 0.1, Baso % (Auto) 0.2, Absolute Neuts (auto) 11.5 H, Absolute Lymphs (auto) 1.20, Nucleated RBC % 0 Current Medications Acetaminophen (Tylenol) 650 mg PO Q6H PRN PRN PRN Reason: Pain Score 1-10/Temp > 100.7 F Last Admin: 04/06/20 09:23 Dose: 650 mg Documented by: Albuterol Sulfate (Ventolin Aerosols) 2.5 mg INHALATION Q2H PRN PRN PRN Reason: SOB/Wheezing Albuterol/Ipratropium (Duoneb) 3 ml INHALATION Q4H.RT [facility] Last Admin: 04/06/20 14:29 Dose: 3 ml Documented by: Buspirone HCl (Buspar) 10 mg PO BID [facility] Dextrose (D50w Syringe) 0 gm IV X1 PRN; Protocol PRN Reason: Hypoglycemia Enoxaparin Sodium (Lovenox) 40 mg SC DAILY [facility] Last Admin: 04/06/20 09:24 Dose: 40 mg Documented by: Flecainide Acetate (Tambocor) 150 mg PO BID [facility] Last Admin: 04/06/20 09:23 Dose: 150 mg Documented by: Fluticasone Propionate (Flonase Nasal [place]) 1 spray NASAL DAILY [facility] Last Admin: 04/06/20 09:25 Dose: 1 spray Documented by: Glucagon () 1 mg IM .X1 PRN PRN Reason: Hypoglycemia Sodium Chloride () 250 mls @ 15 mls/hr IV .[id number] PRN PRN Reason: Saline Flush Sodium Chloride () 250 mls @ 15 mls/hr IV .[id number] PRN PRN Reason: Additional IVPB Infusion Lactobacillus Acidophilus (Acidophilus) 1 tablet PO BID [facility] Last Admin: 04/06/20 09:24 Dose: 1 tablet Documented by: Melatonin (Melatonin) 3 mg PO QHS PRN PRN PRN Reason: INSOMNIA Metoprolol Tartrate (Lopressor (Beta Katerine)) 25 mg PO BID [facility] Last Admin: 04/06/20 09:23 Dose: 25 mg Documented by: Nystatin (Mycostatin Powder) 1 applic TOPICAL 0600,1800,2200 [facility]; Protocol Last Admin: 04/06/20 06:11 Dose: 1 applicatio Documented by: Oxycodone HCl (Oxyir) 5 mg PO Q4H PRN PRN PRN Reason: Pain Score 4-5/10 Last Admin: 04/05/20 16:44 Dose: 5 mg Documented by: Pantoprazole Sodium (Protonix) 40 mg PO DAILY [facility] Last Admin: 04/06/20 09:23 Dose: 40 mg Documented by: Polyethylene Glycol (Miralax) 17 gm PO DAILY [facility] Last Admin: 04/06/20 09:24 Dose: 17 gm Documented by: Prednisone () 40 mg PO DAILY@0800 [facility] Last Admin: 04/06/20 09:23 Dose: 40 mg Documented by: Prochlorperazine Edisylate (Compazine Iv) 5 mg IV Q4H PRN PRN PRN Reason: Breakthrough Nausea/Vomiting Senna/Docusate Sodium (Senokot-S, Yamilex-Colace) 2 tablet PO BID PRN PRN Reason: Constipation Last Admin: 04/06/20 09:23 Dose: 2 tablet Documented by: Sodium Chloride () 10 - 40 ml IV UD PRN PRN Reason: SALINE FLUSH Last Admin: 04/05/20 20:22 Dose: 10 ml Documented by: Venlafaxine HCl (Effexor Xr) 75 mg PO DAILY [facility] Venlafaxine HCl (Effexor Xr) 150 mg PO DAILY [facility] Medical Necessity - Tobacco Use Smoking Status: Former smoker Assessment/Plan All Active Problems (Last Updated 02/28/20 @ 07:[address] Santosh Nobles MD) Generalized weakness (Acute) Dyspnea (Acute) Patient's noncompliance with other medical treatment and regimen (Acute) Hypoxemia (Acute) COPD exacerbation (Acute) Cellulitis of right lower extremity (Acute) Sepsis (Acute) 1. acute on CKD stage 3 baseline creatinine 1.2 improved from 1.78 to 1.3 today. Instructed pt to avoid NSAIDs at home. Pt dtr at bedside. Hold on diuretic therapy. 2. HTN stable, 3. Adenovirus 4. Frequent falls 5. COPD, interstitial lung disease. wears oxygen rarely at home 6. chronic pain, avoid NSAIDs. Followup with pain mgmt
[2020-04-06] MEDS: oxyCODONE 5 MG Tablet PO ×2 (15:09→21:24)
[2020-04-06] MEDS: Venlafaxine XR 150 MG Capsule PO (15:09)
[2020-04-06] MEDS: Venlafaxine XR 75 MG Capsule PO (15:09)
[2020-04-06] MEDS: busPIRone 5 MG Tablet 10 MG PO ×2 (15:09→21:24)
[2020-04-07] VITALS (18 sets, daily range): BP systolic 117–125; BP diastolic 54–68; PULSE 60–80; RESP 16–20; TEMP 36.4–36.9; O2SAT 92–96
[2020-04-07] MEDS: oxyCODONE 5 MG Tablet PO ×5 (01:42→22:43)
[2020-04-07] MEDS: Ipratropium/Albuterol Sulfate 3 ML AMPUL.NEB INHALATION ×5 (02:41→20:28)
[2020-04-07] MEDS: Nystatin Powder 15gm Bottle 1 APPLIC TOPICAL ×2 (05:13→18:21)
[2020-04-07 06:15] LABS: Albumin, Serum 2.9 g/dL (3.2-5.0); BUN 40 mg/dL (7-18); BUN/Creat Ratio 32.3 RATIO (10-20); Calcium,Total 9.2 mg/dL (8.5-10.1); Chloride 103 mmol/L (98-107); Creatinine, Serum 1.24 mg/dL (0.55-1.02); EST Glomerular Filtration Rate 46 mL/min (>60); Est Glom Filt Rate - Afr Amer 55 mL/min (>60); Estimated Creatinine Clearance 38.53 ml/min; Glucose 101 mg/dL (74-106); Phosphorus 2.3 mg/dL (2.5-4.9); Potassium 4.3 mmol/L (3.5-5.1); Sodium Level 138 mmol/L (136-145)
[2020-04-07] MEDS: predniSONE 20 MG Tablet 40 MG PO (07:59)
[2020-04-07] MEDS: Enoxaparin 40 MG/0.4 ML Syringe SC (11:16)
[2020-04-07] MEDS: busPIRone 5 MG Tablet 10 MG PO ×2 (11:17→22:43)
[2020-04-07] MEDS: Metoprolol Tartrate 25 MG Tablet PO ×2 (11:18→22:43)
[2020-04-07] MEDS: Venlafaxine XR 150 MG Capsule PO (11:18)
[2020-04-07] MEDS: Venlafaxine XR 75 MG Capsule PO (11:18)
[2020-04-07] MEDS: Flecainide 150 MG Tablet PO ×2 (11:19→22:43)
[2020-04-07] MEDS: Pantoprazole Sodium 40 MG Tablet PO (11:19)
[2020-04-07] MEDS: Acetaminophen 325 MG Tablet 650 MG PO ×2 (11:19→19:39)
[2020-04-07] MEDS: Fluticasone 0.05% 1 SPRAY NASAL.SRY NASAL (11:26)
--- NOTE | 2020-04-07 12:46 | PN_ITS ---
Patient Problems: Active and Suspected Problems (Last Updated 02/28/20 @ 07:[address] Santosh Nobles MD) Generalized weakness (Acute) Dyspnea (Acute) Patient's noncompliance with other medical treatment and regimen (Acute) Hypoxemia (Acute) COPD exacerbation (Acute) Reason for Visit: EMMANUEL Subjective: No new complaints. Vitals/I&O's: Vital Signs Temp Pulse Resp BP Pulse Ox 36.6 C 67 16 125/60 H 92 04/07/20 07:36 04/07/20 11:18 04/07/20 10:56 04/07/20 07:36 04/07/20 07:36 Oxygen Flow Rate (L/min) 3 Oxygen Delivery Method Nasal Cannula Weight: 110.3 kg Body Mass Index (BMI) 40.8 Intake and Output for Last 24 Hours 04/05/20 04/06/20 04/07/20 23:59 23:59 23:59 Intake Total 1120 / 1120 600 / 600 180 / 180 Output Total 250 / 250 Balance 870 / 870 600 / 600 180 / 180 General: Alert, No apparent distress HEENT: Atraumatic, Normocephalic Oral: Moist Mucosa, No Gingival or Mucosal Lesions/ Ulcerations Neck: No Nodes, Thyroid Normal Size and Texture Lungs: Clear to auscultation, Normal air movement, No rhonchi, No wheeze Cardiovascular: Regular rate, Regular Rhythm, Normal S1, Normal S2 Abdomen: Bowel Sounds Present, Soft, Non Tender, Non-Distended, No Hepato- splenomegaly Laboratory Results 04/07/20 05:35: Sodium 138, Potassium 4.3, Chloride 103, Carbon Dioxide 34.0 H, BUN 40 H, Creatinine 1.24 H, Estim Creat Clear Calc 38.53, Est GFR (MDRD) Af Amer 55 L, Est GFR (MDRD) Non-Af 46 L, BUN/Creatinine Ratio 32.3 H, Glucose 101, Calcium 9.2, Phosphorus 2.3 L, Albumin 2.9 L Current Medications Acetaminophen (Tylenol) 650 mg PO Q6H PRN PRN PRN Reason: Pain Score 1-10/Temp > 100.7 F Last Admin: 04/07/20 11:19 Dose: 650 mg Documented by: Albuterol Sulfate (Ventolin Aerosols) 2.5 mg INHALATION Q2H PRN PRN PRN Reason: SOB/Wheezing Albuterol/Ipratropium (Duoneb) 3 ml INHALATION Q4H.RT [facility] Last Admin: 04/07/20 10:52 Dose: 3 ml Documented by: Buspirone HCl (Buspar) 10 mg PO BID [facility] Last Admin: 04/07/20 11:17 Dose: 10 mg Documented by: Dextrose (D50w Syringe) 0 gm IV X1 PRN; Protocol PRN Reason: Hypoglycemia Enoxaparin Sodium (Lovenox) 40 mg SC DAILY [facility] Last Admin: 04/07/20 11:16 Dose: 40 mg Documented by: Flecainide Acetate (Tambocor) 150 mg PO BID [facility] Last Admin: 04/07/20 11:19 Dose: 150 mg Documented by: Fluticasone Propionate (Flonase Nasal [place]) 1 spray NASAL DAILY [facility] Last Admin: 04/07/20 11:26 Dose: 1 spray Documented by: Glucagon () 1 mg IM .X1 PRN PRN Reason: Hypoglycemia Sodium Chloride () 250 mls @ 15 mls/hr IV .[id number] PRN PRN Reason: Saline Flush Sodium Chloride () 250 mls @ 15 mls/hr IV .[id number] PRN PRN Reason: Additional IVPB Infusion Lactobacillus Acidophilus (Acidophilus) 1 tablet PO BID [facility] Last Admin: 04/07/20 11:16 Dose: 1 tablet Documented by: Melatonin (Melatonin) 3 mg PO QHS PRN PRN PRN Reason: INSOMNIA Metoprolol Tartrate (Lopressor (Beta Katerine)) 25 mg PO BID [facility] Last Admin: 04/07/20 11:18 Dose: 25 mg Documented by: Nystatin (Mycostatin Powder) 1 applic TOPICAL 0600,1800,2200 [facility]; Protocol Last Admin: 04/07/20 05:13 Dose: 1 applicatio Documented by: Oxycodone HCl (Oxyir) 5 mg PO Q4H PRN PRN PRN Reason: Pain Score 4-5/10 Last Admin: 04/07/20 07:59 Dose: 5 mg Documented by: Pantoprazole Sodium (Protonix) 40 mg PO DAILY [facility] Last Admin: 04/07/20 11:19 Dose: 40 mg Documented by: Polyethylene Glycol (Miralax) 17 gm PO DAILY [facility] Last Admin: 04/06/20 09:24 Dose: 17 gm Documented by: Prednisone () 40 mg PO DAILY@0800 [facility] Last Admin: 04/07/20 07:59 Dose: 40 mg Documented by: Prochlorperazine Edisylate (Compazine Iv) 5 mg IV Q4H PRN PRN PRN Reason: Breakthrough Nausea/Vomiting Senna/Docusate Sodium (Senokot-S, Yamilex-Colace) 2 tablet PO BID PRN PRN Reason: Constipation Last Admin: 04/06/20 09:23 Dose: 2 tablet Documented by: Sodium Chloride () 10 - 40 ml IV UD PRN PRN Reason: SALINE FLUSH Last Admin: 04/05/20 20:22 Dose: 10 ml Documented by: Venlafaxine HCl (Effexor Xr) 75 mg PO DAILY [facility] Last Admin: 04/07/20 11:18 Dose: 75 mg Documented by: Venlafaxine HCl (Effexor Xr) 150 mg PO DAILY [facility] Last Admin: 04/07/20 11:18 Dose: 150 mg Documented by: STROKE Vital Signs/Narrative: Vital Signs Pulse Resp 04/07/20 11:18 67 04/07/20 10:56 66 16 Medical Necessity - Tobacco Use Smoking Status: Former smoker Assessment/Plan All Active Problems (Last Updated 02/28/20 @ 07:[address] Santosh Nobles MD) Generalized weakness (Acute) Dyspnea (Acute) Patient's noncompliance with other medical treatment and regimen (Acute) Hypoxemia (Acute) COPD exacerbation (Acute) Cellulitis of right lower extremity (Acute) Sepsis (Acute) 1. acute HFpEF * EF 55% * off furosemide 2. AECOPD * improving * on prednisone 3. EMMANUEL * improved * follow up with nephrology as outpt 4. Debility: to SNF pending precertification 5. VTE prophylaxis: LMWH Inpatient E&M: 91056 Subs Hosp L2
--- NOTE | 2020-04-07 17:36 | NURSING ---
Verbal report given by DARLING Santiago. This RN is now taking over care of this patient at this time.
[2020-04-07] MEDS: 0.9% Saline Lock 10 ML Syringe IV ×2 (19:39→22:44)
[2020-04-07] MEDS: MELATONIN 3 MG TABLET PO (22:42)
[2020-04-08] MEDS: oxyCODONE 5 MG Tablet PO (02:46)
[2020-04-08] MEDS: MELATONIN 3 MG TABLET PO (02:46)
[2020-04-08 03:00] VITALS: PULSE 60
[2020-04-08 04:41] VITALS: BP 123/64; PULSE 88; RESP 18; TEMP 36.8; O2SAT 95
[2020-04-08] MEDS: 0.9% Saline Lock 10 ML Syringe IV (05:40)
[2020-04-08] MEDS: Nystatin Powder 15gm Bottle 1 APPLIC TOPICAL (05:40)
[2020-04-08 06:54] VITALS: PULSE 63
[2020-04-08 06:55] VITALS: PULSE 61; RESP 18; O2SAT 100
[2020-04-08] MEDS: Ipratropium/Albuterol Sulfate 3 ML AMPUL.NEB INHALATION (06:55)
[2020-04-08 09:20] VITALS: PULSE 66
[2020-04-08] MEDS: Flecainide 150 MG Tablet PO (09:20)
[2020-04-08] MEDS: Venlafaxine XR 75 MG Capsule PO (09:20)
[2020-04-08] MEDS: predniSONE 20 MG Tablet 40 MG PO (09:20)
[2020-04-08] MEDS: Metoprolol Tartrate 25 MG Tablet PO (09:20)
[2020-04-08] MEDS: busPIRone 5 MG Tablet 10 MG PO (09:20)
[2020-04-08] MEDS: Venlafaxine XR 150 MG Capsule PO (09:20)
[2020-04-08] MEDS: Pantoprazole Sodium 40 MG Tablet PO (09:20)
[2020-04-08] MEDS: Fluticasone 0.05% 1 SPRAY NASAL.SRY NASAL (09:21)
[2020-04-08] MEDS: Enoxaparin 40 MG/0.4 ML Syringe SC (09:21)
[2020-04-08 09:25] VITALS: BP 110/49; PULSE 67; RESP 18; TEMP 36.2; O2SAT 94
--- NOTE | 2020-04-08 11:40 | CASEMGMT ---
SW spoke with patient's daughter via phone. SW asked her if she and patient discussed a discharge plan. She said they talked about a assisted. She asked if any nursing homes are allowing visitors. SW told her that when patients get to the assisted they are in quarantine for 14 days. She will not be allowed to have any visitors at that time. SW told her after that they are scheduling outside visitation. SW asked about home health. She then told SW she was in the department of natural resources officer office and she will be up to see patient in a little bit. SW told her SW can talk with them at that time. SW then went and spoke with patient. SW introduced self and role at [facility]. Patient said she is going home today, but she cannot get a hold of her daughter. SW told her that SW just spoke with her and she is at an appt and will be up to see her afterwards. SW discussed d/c plan and she said she is going home. SW discussed SNF and when 14 day quarantine was mentioned patient said, No way am I doing that, I am going home. SW asked if she would be willing to have therapy come to her house and work with her. She said no she does not want anything and she will be fine. SW told her we do not want her to fall and break anything. She said she doesn't want to either, but if she does then she will come back. She told SW to tell the Dr to hurry up she wants out of here. ANGLE updated RN CM. Plan will likely be patient going home with daughter with no services. ANGLE will call Adult Protective Services to check on patient and her living situation. Lorri SHAFER PATTERN LAYOUT WORKER
--- NOTE | 2020-04-08 12:26 | CASEMGMT ---
SW spoke with patient's daughter, Samantha. Introduced self and role at [facility]. She said the plan is home. SW told her patient would not agree to home health and she is aware. She said she will just take her home. SW told her SW will notify the physician. SW notified physician the plan will be home with no services and SW will call Adult Protective Services. Plan: d/c home. Patient refused senior care and home health. ANGLE will call Adult Protective Services. Lorri SHAFER MSW
--- NOTE | 2020-04-08 13:11 | PCM.DC ---
- Discharge Diagnoses Current Active Problems: Current Active and Chronic Problems (Last Updated 02/28/20 @ 07:[address] Santosh Nobles MD) Generalized weakness (Acute) Dyspnea (Acute) Patient's noncompliance with other medical treatment and regimen (Acute) Hypoxemia (Acute) CHF exacerbation (Chronic) COPD exacerbation (Acute) COPD (chronic obstructive pulmonary disease) (Chronic) Chronic combined systolic and diastolic CHF (congestive heart failure) (Chronic) You will use the following diet at home:: Cardiac Call your doctor if you observe: Fever of 101 or Higher, Shortness of breath, Chest pain Allergies/Adverse Reactions: Allergies doxycycline Allergy (Severe, Verified 04/02/20 03:44) ulcerations of lips and mouth gabapentin Adverse Reaction (Severe, Verified 04/02/20 03:44) GI upset, Vomiting ciprofloxacin [From Cipro] Adverse Reaction (Intermediate, Verified 04/02/20 03:44) Other messes with her heart medicine Medications to take at Discharge Albuterol Inhaler [Ventolin Hfa] 1 puff INHALATION Q4H PRN PRN 08/08/13 Fluticasone 0.05% [Flonase Nasal [place]] 1 spray NASAL DAILY 08/08/13 flecainide 150 mg tablet 150 mg PO BID 08/16/17 Venlafaxine HCl [Venlafaxine HCl ER] 75 mg PO DAILY 01/28/18 Metoprolol Tartrate [Lopressor (beta bairon)] 25 mg PO BID 02/01/18 Acetaminophen [Tylenol] 1,000 mg PO Q8 05/13/19 Venlafaxine HCl [Venlafaxine HCl ER] 150 mg PO DAILY 05/13/19 Famotidine [Pepcid] 40 mg PO DAILY #30 tab 05/28/19 Nystatin Powder [Mycostatin Powder] 1 applic TOPICAL 0600,2200 bottle 05/28/19 Polyethylene Glycol 3350 [Miralax] 17 gm PO DAILY PRN PRN 02/28/20 Lactobacillus Acidophilus [Acidophilus] 1 tab PO BID #14 tab 03/01/20 Diclofenac Sodium [Voltaren] 1 - 2 gm TOPICAL TID PRN 04/02/20 Meloxicam 15 mg PO DAILY 04/02/20 Morphine Sulfate 15 mg PO BID 04/02/20 Guaifenesin [Mucinex] 1,200 mg PO BID #14 tab.er.12h 04/06/20 Prednisone 4 tab PO DAILY #8 tab 04/08/20 The following prescriptions were given: Guaifenesin [Mucinex] 1,200 mg PO BID #14 tab.er.12h Transmission Status: Received by [facility]/pharmacy #[id number] Prednisone 4 tab PO DAILY #8 tab Transmission Status: Pending to [facility]/pharmacy #[id number] Primary Care Physician: Darinel Callejas Chi, MD [Primary Care Provider] - Within 1 Week Test Results: Test results from this visit will be discussed in further detail at your follow-up appointment, if applicable. Proposed Discharge Date: 04/08/20
--- NOTE | 2020-04-08 13:13 | PCM.DC.SUM ---
Discharge Date and Diagnosis - Problem List Patient Problems: Active and Suspected Problems (Last Updated 02/28/20 @ 07:[address] Santosh Nobles MD) Generalized weakness (Acute) Dyspnea (Acute) Patient's noncompliance with other medical treatment and regimen (Acute) Hypoxemia (Acute) COPD exacerbation (Acute) Date of Admission: 04/02/20 Date of Discharge: 04/08/20 - Primary Discharge Diagnosis Acute Problems: Active Problems (Last Updated 02/28/20 @ 07:[address] Santosh Nobles MD) 1. acute HFpEF EF 55% off furosemide 2. AECOPD improving on prednisone 3. EMMANUEL improved follow up with nephrology as outpt - Secondary Discharge Diagnosis Chronic Problems: Chronic Problems (Last Updated 02/28/20 @ 07:[address] Santosh Nobles MD) CHF exacerbation (Chronic) Debility (Chronic) Vitamin D deficiency (Chronic) Restless leg syndrome (Chronic) COPD (chronic obstructive pulmonary disease) (Chronic) Cardiomyopathy, dilated (Chronic) ESPERANZA (obstructive sleep apnea) (Chronic) Chronic respiratory failure with hypoxia (Chronic) Anxiety (Chronic) Depression (Chronic) Osteoarthritis (Chronic) Pulmonary nodules (Chronic) Left ventricular hypertrophy (Chronic) Back pain (Chronic) Chronic systolic heart failure (Chronic) GERD (gastroesophageal reflux disease) (Chronic) Chronic combined systolic and diastolic CHF (congestive heart failure) (Chronic) Non-sustained ventricular tachycardia (Chronic) Hypertension (Chronic) 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) residential current use of antiarrhythmic medical therapy (Chronic) Paroxysmal atrial fibrillation (Chronic) Asthma (Chronic) Hospital Course and Treatment Imaging Results: Clinical Impression(s) from Imaging Studies Chest X-Ray 04/02/20 03:49 IMPRESSION: Cardiomegaly with CHF and small left pleural effusion. Bilateral basilar atelectasis. Old granulomatous disease. Electronically Signed: Yuri Joe MD at 5:19 EDT , Service support , Femur X-Ray 04/02/20 03:50 IMPRESSION: Old healed intertrochanteric fracture, with intact fixation hardware. No demonstrated acute fracture, dislocation, or destructive osseous lesion. Electronically Signed: Yuri Joe MD at 5:25 EDT , Service support , Pelvis X-Ray 04/02/20 03:50 IMPRESSION: Old healed left intertrochanteric fracture. No demonstrated acute fracture, dislocation, or destructive osseous lesion. Electronically Signed: Yuri Joe MD at 5:30 EDT , Service support , Thoracic Spine X-Ray 04/02/20 03:50 IMPRESSION: Multilevel degenerative changes. No demonstrated fracture or subluxation. Electronically Signed: Yuri Joe MD at 5:33 EDT , Service support , Sofi Kapoor, nephrology Operations: None Procedures: None Summary of Care Provided: The patient is a 69 year old F presents with shortness of breath. Patient diagnosed with acute heart failure with preserved ejection fraction and plus acute exacerbation of COPD. Patient was started on low-dose Lasix but did have some renal function renal failure that nephrology was consulted for. Nephrology recommend discontinuation of NSAIDs. Also recommended holding off on diuretics. Patient was treated also for acute exacerbation of COPD with bronchodilators as well as steroids. Patient was on methylprednisolone and transition over to prednisone. Patient is done well with that. Patient has previous been unable to afford inhalers so patient will continue with 2 more days of prednisone. Patient was weak and it was recommend patient go to a senior living facility. Patient declined preferring to go home's patient will be discharged to home. They are currently declining, the patient and her daughter, any additional services, such as home health care, at this time. Risks of patient going home could include falls. Patient does not live with her daughter but her daughter lives adjacent to her. Explained that her daughter living adjacent to her and being in wheelchair she may not be able to make it to her mother's house in time to be able to help her with issues such as going to the restroom and so forth. I encouraged patient talk to case management and her daughter but overall patient eventually did decide to go home though the patient did endorse that she was concerned about falling at home. Case management will contact Adult Protective Services. [] Patient Problems: Active and Suspected Problems (Last Updated 02/28/20 @ 07:[address] Santosh Nobles MD) Generalized weakness (Acute) Dyspnea (Acute) Patient's noncompliance with other medical treatment and regimen (Acute) Hypoxemia (Acute) COPD exacerbation (Acute) - Physical Exam Vitals/I&O's: Vital Signs Temp Pulse Resp BP Pulse Ox 36.2 C L 67 18 110/49 L 94 04/08/20 09:25 04/08/20 09:25 04/08/20 09:25 04/08/20 09:25 04/08/20 09:25 Oxygen Flow Rate (L/min) 3 Oxygen Delivery Method Nasal Cannula Weight: 109.1 kg Body Mass Index (BMI) 40.8 Intake and Output for Last 24 Hours 04/06/20 04/07/20 04/08/20 23:59 23:59 23:59 Intake Total 600 / 600 420 / 420 200 / 200 Balance 600 / 600 420 / 420 200 / 200 General: Alert, No apparent distress HEENT: Atraumatic, Normocephalic Psych/Mental Status: Normal Affect, Appropriate Current Medications Acetaminophen (Tylenol) 650 mg PO Q6H PRN PRN PRN Reason: Pain Score 1-10/Temp > 100.7 F Last Admin: 04/07/20 19:39 Dose: 650 mg Documented by: Albuterol Sulfate (Ventolin Aerosols) 2.5 mg INHALATION Q2H PRN PRN PRN Reason: SOB/Wheezing Albuterol/Ipratropium (Duoneb) 3 ml INHALATION Q4H.RT [facility] Last Admin: 04/08/20 11:30 Dose: Not Given Documented by: Buspirone HCl (Buspar) 10 mg PO BID [facility] Last Admin: 04/08/20 09:20 Dose: 10 mg Documented by: Dextrose (D50w Syringe) 0 gm IV X1 PRN; Protocol PRN Reason: Hypoglycemia Enoxaparin Sodium (Lovenox) 40 mg SC DAILY [facility] Last Admin: 04/08/20 09:21 Dose: 40 mg Documented by: Flecainide Acetate (Tambocor) 150 mg PO BID [facility] Last Admin: 04/08/20 09:20 Dose: 150 mg Documented by: Fluticasone Propionate (Flonase Nasal [place]) 1 spray NASAL DAILY [facility] Last Admin: 04/08/20 09:21 Dose: 1 spray Documented by: Glucagon () 1 mg IM .X1 PRN PRN Reason: Hypoglycemia Sodium Chloride () 250 mls @ 15 mls/hr IV .[id number] PRN PRN Reason: Saline Flush Sodium Chloride () 250 mls @ 15 mls/hr IV .[id number] PRN PRN Reason: Additional IVPB Infusion Lactobacillus Acidophilus (Acidophilus) 1 tablet PO BID [facility] Last Admin: 04/08/20 09:20 Dose: 1 tablet Documented by: Melatonin (Melatonin) 3 mg PO QHS PRN PRN PRN Reason: INSOMNIA Last Admin: 04/08/20 02:46 Dose: 3 mg Documented by: Metoprolol Tartrate (Lopressor (Beta Katerine)) 25 mg PO BID [facility] Last Admin: 04/08/20 09:20 Dose: 25 mg Documented by: Nystatin (Mycostatin Powder) 1 applic TOPICAL 0600,1800,2200 [facility]; Protocol Last Admin: 04/08/20 05:40 Dose: 1 applicatio Documented by: Oxycodone HCl (Oxyir) 5 mg PO Q4H PRN PRN PRN Reason: Pain Score 4-5/10 Last Admin: 04/08/20 02:46 Dose: 5 mg Documented by: Pantoprazole Sodium (Protonix) 40 mg PO DAILY [facility] Last Admin: 04/08/20 09:20 Dose: 40 mg Documented by: Polyethylene Glycol (Miralax) 17 gm PO DAILY [facility] Last Admin: 04/08/20 09:20 Dose: Not Given Documented by: Prednisone () 40 mg PO DAILY@0800 [facility] Last Admin: 04/08/20 09:20 Dose: 40 mg Documented by: Prochlorperazine Edisylate (Compazine Iv) 5 mg IV Q4H PRN PRN PRN Reason: Breakthrough Nausea/Vomiting Senna/Docusate Sodium (Senokot-S, Yamilex-Colace) 2 tablet PO BID PRN PRN Reason: Constipation Last Admin: 04/06/20 09:23 Dose: 2 tablet Documented by: Sodium Chloride () 10 - 40 ml IV UD PRN PRN Reason: SALINE FLUSH Last Admin: 04/08/20 05:40 Dose: 10 ml Documented by: Venlafaxine HCl (Effexor Xr) 75 mg PO DAILY [facility] Last Admin: 04/08/20 09:20 Dose: 75 mg Documented by: Venlafaxine HCl (Effexor Xr) 150 mg PO DAILY [facility] Last Admin: 04/08/20 09:20 Dose: 150 mg Documented by: Discharge Diet: Low fat/ Low Cholesterol Discharge Activity: Return to Normal Activity Call your doctor if you observe: Fever of 101 or Higher, Shortness of breath, Chest pain Home Medications: Medications to take at Discharge Albuterol Inhaler [Ventolin Hfa] 1 puff INHALATION Q4H PRN PRN 08/08/13 Fluticasone 0.05% [Flonase Nasal [place]] 1 spray NASAL DAILY 08/08/13 flecainide 150 mg tablet 150 mg PO BID 08/16/17 Venlafaxine HCl [Venlafaxine HCl ER] 75 mg PO DAILY 01/28/18 Metoprolol Tartrate [Lopressor (beta katerine)] 25 mg PO BID 02/01/18 Acetaminophen [Tylenol] 1,000 mg PO Q8 05/13/19 Venlafaxine HCl [Venlafaxine HCl ER] 150 mg PO DAILY 05/13/19 Famotidine [Pepcid] 40 mg PO DAILY #30 tab 05/28/19 Nystatin Powder [Mycostatin Powder] 1 applic TOPICAL 0600,2200 bottle 05/28/19 Polyethylene Glycol 3350 [Miralax] 17 gm PO DAILY PRN PRN 02/28/20 Lactobacillus Acidophilus [Acidophilus] 1 tab PO BID #14 tab 03/01/20 Diclofenac Sodium [Voltaren] 1 - 2 gm TOPICAL TID PRN 04/02/20 Morphine Sulfate 15 mg PO BID 04/02/20 Guaifenesin [Mucinex] 1,200 mg PO BID #14 tab.er.12h 04/06/20 Prednisone 4 tab PO DAILY #8 tab 04/08/20 Following Prescriptions Were Given to Patient: Guaifenesin [Mucinex] 1,200 mg PO BID #14 tab.er.12h Transmission Status: Received by [facility]/pharmacy #[id number] Prednisone 4 tab PO DAILY #8 tab Transmission Status: Pending to [facility]/pharmacy #[id number] Primary Care Physician: Darinel Callejas Chi, MD [Primary Care Provider] - Within 1 Week Disposition: Home Minutes spent on discharge:: 35 Patient Condition:: Fair Medical Necessity - Tobacco Use Smoking Status: Former smoker Meaningful Use Info Meaningful Use Diagnoses (Choose all that apply): CHF - CHF ALLEGRA/ARB ordered at discharge?: No Reason ALLEGRA/ARB not ordered?: Worsening renal dysfunctn Documented LVEF (%): 55 Inpatient E&M: [id number] Disch Hosp
--- NOTE | 2020-04-08 13:39 | PHA.DC.MR ---
Pharmacy Service has performed discharge medication reconciliation for this patient. The patient's discharge medication list was reviewed for discrepancies and discrepancies were resolved. Home Medications Albuterol Inhaler [Ventolin Hfa] 1 puff INHALATION Q4H PRN PRN 08/08/13 Fluticasone 0.05% [Flonase Nasal [place]] 1 spray NASAL DAILY 08/08/13 flecainide 150 mg tablet 150 mg PO BID 08/16/17 Venlafaxine HCl [Venlafaxine HCl ER] 75 mg PO DAILY 01/28/18 Metoprolol Tartrate [Lopressor (beta bairon)] 25 mg PO BID 02/01/18 Acetaminophen [Tylenol] 1,000 mg PO Q8 05/13/19 Venlafaxine HCl [Venlafaxine HCl ER] 150 mg PO DAILY 05/13/19 Famotidine [Pepcid] 40 mg PO DAILY #30 tab 05/28/19 Nystatin Powder [Mycostatin Powder] 1 applic TOPICAL 0600,2200 bottle 05/28/19 Polyethylene Glycol 3350 [Miralax] 17 gm PO DAILY PRN PRN 02/28/20 Lactobacillus Acidophilus [Acidophilus] 1 tab PO BID #14 tab 03/01/20 Diclofenac Sodium [Voltaren] 1 - 2 gm TOPICAL TID PRN 04/02/20 Morphine Sulfate 15 mg PO BID 04/02/20 Guaifenesin [Mucinex] 1,200 mg PO BID #14 tab.er.12h 04/06/20 Prednisone 4 tab PO DAILY #8 tab 04/08/20
--- NOTE | 2020-04-08 13:51 | CASEMGMT ---
ANGLE went to give patient information on [employer] prescription assistance program for help with Albuterol. She was in the bathroom and then was leaving. ANGLE put the information in her bag. ANGLE called [facility] and requested a return call. Lorri SHAFER MSW
--- NOTE | 2020-04-09 13:15 | CASEMGMT ---
ANGLE did make contact with Antoinette at [facility]. ANGLE explained concerns to Antoinette. Lorri HERRERA
--- NOTE | 2020-04-09 15:54 | CASEMGMT ---
DARLING KO Discharge Follow-Up Phone Call. Imelda: 13 Strata: 3 Discharge Date: 04/08/20 Adm Dx: Sepsis secondary to cellulitis Call to pt to inquire about how she has been doing since being discharged from the hospital. Pt answered the phone but then put her daughter, Samantha, on the phone to talk w/DARLING KO. Samantha states her mother has been doing really good. She states, She is getting up better and moving around better. She states pt has not had any falls since returning home. She states they have not picked up the prescriptions for Mucinex and Prednisone yet, but she plans to do so today. She states they already had Mucinex @ home and pt did have her AM dose of that today and she is aware Prednisone order and reviewed instructions w/her. She inquired about any additional pain medication for patient. DARLING KO reviewed medications w/Samantha. Samantha confirms that pt is taking the scheduled MS tabs BID and states she takes Tylenol for breakthrough pain in between as needed and that she has had one dose of Tylenol today. DARLING KO advises Samantha to talk with pt's PCP, Dr Callejas, if she would have further pain issues or if pain is not managed on what she is currently taking. Samantha is aware pt is to have an appt scheduled w/Dr Callejas w/in a week and she was instructed to call Dr Tinsley office to make this appt if she has not heard from them by Tuesday. Samantha also states pt's breathing is pretty good. Samantha did inquire on if pt would be able to go to TCU in the future and how to go about having doing this, if they would decide in the future for her to go there. She denies need for pt to go to a SNF at this time. Samantha made aware with [employer], she would need to be admitted to the hospital again and pre-cert would need to be obtained from her insurance, as well as acceptance to TCU. Pt voices understanding. She was offered and provided with DARLING KO biomass power plant manager, Iwona Ulloa's phone number if she would have further questions/concerns. Teena PARSON RN, CM
== END 2020-04-08 13:50 | disposition home or self-care (01) | DRG 291 ==
LOC: ED 06:20 → PCU 07:55
PROVIDERS: Emergency Medicine; Internal Medicine Nephrology; Admitting Provider Internal Medicine; Emergency Provider Emergency Medicine; PCP Family Medicine Geriatric Medicine
DX: I13.0 Hypertensive heart and chronic kidney disease with heart failure and stage 1 through stage 4 chronic kidney disease, or unspecified chronic kidney disease (principal); J96.21 Acute and chronic respiratory failure with hypoxia; I50.43 Acute on chronic combined systolic (congestive) and diastolic (congestive) heart failure; J44.1 Chronic obstructive pulmonary disease with (acute) exacerbation; L03.115 Cellulitis of right lower limb; N17.9 Acute kidney failure, unspecified; I48.20 Chronic atrial fibrillation, unspecified; J98.11 Atelectasis; Z68.41 Body mass index [BMI] 40.0-44.9, adult; J84.9 Interstitial pulmonary disease, unspecified; N18.3 Chronic kidney disease, stage 3 (moderate); I42.0 Dilated cardiomyopathy; G47.33 Obstructive sleep apnea (adult) (pediatric); I48.0 Paroxysmal atrial fibrillation; G25.81 Restless legs syndrome; K21.9 Gastro-esophageal reflux disease without esophagitis; F32.9 Major depressive disorder, single episode, unspecified; F41.9 Anxiety disorder, unspecified; R29.6 Repeated falls; E11.22 Type 2 diabetes mellitus with diabetic chronic kidney disease; G89.29 Other chronic pain; Z91.19 Patient's noncompliance with other medical treatment and regimen; I07.1 Rheumatic tricuspid insufficiency; E66.01 Morbid (severe) obesity due to excess calories; E55.9 Vitamin D deficiency, unspecified; Z82.49 Family history of ischemic heart disease and other diseases of the circulatory system; Z82.3 Family history of stroke; Z87.01 Personal history of pneumonia (recurrent); Z83.3 Family history of diabetes mellitus; Z80.3 Family history of malignant neoplasm of breast; Z80.1 Family history of malignant neoplasm of trachea, bronchus and lung; Z79.899 Other long term (current) drug therapy; Z79.1 Long term (current) use of non-steroidal anti-inflammatories (NSAID); Z80.41 Family history of malignant neoplasm of ovary; Z81.8 Family history of other mental and behavioral disorders; Z88.8 Allergy status to other drugs, medicaments and biological substances; Z98.51 Tubal ligation status; Z90.710 Acquired absence of both cervix and uterus; Z87.891 Personal history of nicotine dependence; I45.10 Unspecified right bundle-branch block; I44.0 Atrioventricular block, first degree; Z66 Do not resuscitate; M19.90 Unspecified osteoarthritis, unspecified site
CPT/HCPCS: 36415; 71045; 72070; 72170; 73552; 80048; 80053; 80061; 80069; 81001; 82570; 83735; 83880; 84100; 84300; 84443; 84484; 85025; 87633; 87635; 93005; 94640; 94667; 94668; 94799; 97110; 97116; 97162; 97166; 97530; 97535; 99285; 99406; J7040; A4216; J1940; U0003

== ENCOUNTER 2020-05-17 19:32 | Emergency (ER) | payer MEDICARE, SELFPAY ==
[2020-04-02 11:35] VITALS: BMI 40.8
[2020-05-17 19:33] VITALS: BP 133/77; PULSE 73; RESP 18; TEMP 36.4; O2SAT 95; BMI 41.6
--- NOTE | 2020-05-17 19:48 | EKG12_ITS ---
Test Reason : LOWER EXTREMETY Blood Pressure : / mmHG Vent. Rate : 070 BPM Atrial Rate : 070 BPM P-R Int : 220 ms QRS Dur : 162 ms QT Int : 510 ms P-R-T Axes : 055 087 023 degrees QTc Int : 550 ms Sinus rhythm with 1st degree A-V block Right bundle branch block Abnormal ECG Confirmed by BETINA LAMBERT, LUH ([id number]), videotape editor KAY SERRANO ([id number]) on 05/21/2020 11:32:59 AM Referred By: RADHA Confirmed By:LUH MOFFETT MD
--- NOTE | 2020-05-17 19:56 | ED.DCSUM_ITS ---
History of Present Illness Chief Complaint: Bite Informant: Patient, Family Onset: Month(s) Maximum Severity: Mild Narrative: The patient's chief complaint is bilateral lower extremity edema's for months she has an extensive past history of CHF COPD arthritis chronic back pain leg edema toe fractures chronic skin changes Renal insufficiency She apparently was admitted for all the above sometime in the summer her Lasix was stopped family was told she had complications to kidneys related to Lasix use since that time she had persistent leg swelling, she has seen her outpatient providers for the above no specific therapy has been provided she feels of her skin to her lower extremities is tighter than normal. She is has a chronic cough chronic shortness of breath minute that is new, she is eating and drinking bowel and bladder habits are normal, no coronavirus exposures she is taking her medications as prescribed Past Medical History - Allergies and Home Meds Allergies/Adverse Reactions: Allergies doxycycline Allergy (Severe, Verified 05/17/20 19:36) ulcerations of lips and mouth gabapentin Adverse Reaction (Severe, Verified 05/17/20 19:36) GI upset, Vomiting ciprofloxacin [From Cipro] Adverse Reaction (Intermediate, Verified 05/17/20 19:36) Other messes with her heart medicine Primary Care Physician: Darinel Callejas Chi, MD [Primary Care Provider] - Past Medical History: - Surgical History: hysterectomy, - - tubal ligation, oophorectomy, knee surgery, status post cardiac radiofrequency ablation, cardiac catheterization, Left hip ORIF intramedullary nail. Smoking Status: Former smoker - Family History Maternal Family History: Family History (Last Reviewed 02/28/20 @ 04:[address] William Cabrera MD) Mother Heart disease Arthritis blood clots Hypertension Father arthrits Cancer Brother Cancer Aunt Breast cancer Depression Ovarian cancer Grandmother CVA (cerebral vascular accident) Aunt Diabetes Family History: Reports: Heart Disease, Hypertension, - - Blood clot Paternal Family History: Family History (Last Reviewed 02/28/20 @ 04:[address] William Cabrera MD) Mother Heart disease Arthritis blood clots Hypertension Father arthrits Cancer Brother Cancer Aunt Breast cancer Depression Ovarian cancer Grandmother CVA (cerebral vascular accident) Aunt Diabetes Family History: Reports: Cancer - Lung cancer Review of Systems ROS: - Extensive includes as above General: Denies: Chills, Fever, Sweats Eyes: Denies: Visual changes - bilaterally, Diplopia ENT: Denies: Rhinorrhea, Sore throat Cardiovascular: Denies: Chest pain, Palpitations Respiratory: Reports: Dyspnea. Denies: Cough, Dyspnea on exertion Gastrointestinal: Denies: Abdominal pain, Nausea, Vomiting, Diarrhea, Melena, Hematochezia Genitourinary: Denies: Dysuria, Hematuria, Frequency Musculoskeletal: Reports: Extremity Pain. Denies: Back pain Skin: Denies: Rash, Wounds Neurological: Denies: Headache, Weakness, Numbness Physical Exam Vital Signs/Narrative: Vital Signs Temp Pulse Resp BP Pulse Ox 05/17/20 19:33 97.6 F L 73 18 133/77 H 95 General: Well nourished, Well developed, No Acute Distress Head: Normocephalic, Atraumatic Eyes: Perrl, EOMI ENT: Moist mucous membranes, No rhinorrhea Neck: Supple, Nontender Cardiovascular: Regular rate, Regular rhythm, No murmurs Respiratory: No distress, Chest nontender, Decreased Air Movement Abdomen: Soft, Nontender, Nondistended, Normal bowel sounds Back: Nontender, Normal Inspection Extremities: Nontender, Edema, - - He has about 2-3+ bilateral lower extremity edema she has some redness of the feet that is unchanged and not different she has a chronically fractured or painful right second toe she has chronic scabbed over ulcerations to her feet and her anterior shins that are not new the skin does feel tight there is no obvious signs of neurovascular compromise or infective infection the redness to her feet per the daughter appears at baseline Skin: Normal color, No rash Neurological: Alert, Oriented x3, Cranial nerves II-XII grossly intact, Normal Strength, Normal Sensation Psychological: Normal affect, Normal Mood Diagnostic/Tx/Re-eval - Medical Decision Making Apparently the leg edema was controlled with Lasix the Lasix was stopped as it caused problems with her kidneys she is currently not on a diuretic she is otherwise been stable at stable health she has chronic fatigue shortness of breath and diffuse body pain for which she sees pain management at this time scr eening labs are obtained ED Disposition - Plan for ED Patient: Referrals: Darinel Callejas Chi, MD [Primary Care Provider] -
[2020-05-17 20:04] LABS: Absolute Neutrophil Count 6.3 X10^3/uL (2.0-7.7); Basophil# 0.07 X10^3/uL; Basophil% 0.8 % (0-1); Eosinophil# 0.12 X10^3/uL; Eosinophils% 1.4 % (0-5); Hematocrit 40.7 % (37-47); Hemoglobin 12.5 g/dL (12.0-15.0); Mean Corp Hgb Conc 30.7 g/dL (32-36); Mean Corpuscular Hgb 30.9 pg (27.0-32.0); Mean Corpuscular Volume 100.5 fL (81-99); Mean Platelet Vol. 9.5 fl (6.2-12.0); Monocyte% 9.2 % (0-10); NRBC Flagged by Analyzer 0 % (0-5); Neutrophil # 6.31 X10^3/uL (2.7-7.7); Neutrophil % 72.9 % (47-70); Platelet Count 361 K/mm3 (150-450); RBC Distribution Width CV 13.4 % (11.6-14.6); RBC Distribution Width SD 49.4 fl (35.1-43.9); Red Blood Count 4.05 M/mm3 (4.2-5.4); White Blood Count 8.7 K/mm3 (4.4-11.0)
--- NOTE | 2020-05-17 20:13 | RAD_ITS ---
STUDY: X-RAY CHEST REASON FOR EXAM: Female, 69 years old. Chest pain, sob, leg swelling TECHNIQUE: Frontal view COMPARISON: 04/02/2020 FINDINGS: The lungs are expanded. Mild bilateral basilar atelectasis. Right basilar calcified granuloma. Cardiomegaly. Normal mediastinum. Questionable left hilar prominence. Normal visualized pulmonary arteries. Calcified aortic arch and descending thoracic aorta. Normal visualized thoracic spine. Normal visualized ribs, clavicles, and shoulders. Hiatal hernia. RAD/Chest 1 View (Portable) IMPRESSION: Mild bilateral basilar atelectasis. Cardiomegaly. Hiatal hernia. Questionable left hilar prominence. Electronically Signed: Bal Hernandez DO at 20:27 EDT Tel [phone], Service support ,
--- NOTE | 2020-05-17 20:13 | ED.RN ---
per pt daughter, pt has been falling frequently att home. pt does not wear her oxygen all of the time like she is ordered. per daughter pt has been hallucinating and talking to people that aren't there. dr. yuong informed.
[2020-05-17 20:21] LABS: BNP,B-Type NATRIURETIC PEPTIDE 1036.4 pg/mL (0-100)
[2020-05-17 20:25] LABS: AST(SGOT) 14 U/L (15-37); Alanine Aminotransfer ALT/SGPT 18 U/L (13-56); Albumin, Serum 2.9 g/dL (3.2-5.0); Alkaline Phosphatase 104 U/L (45-117); Anion Gap 4 (5-15); BUN 24 mg/dL (7-18); BUN/Creat Ratio 19.5 RATIO (10-20); Calcium,Total 9.2 mg/dL (8.5-10.1); Chloride 107 mmol/L (98-107); Creatinine, Serum 1.23 mg/dL (0.55-1.02); EST Glomerular Filtration Rate 46 mL/min (>60); Est Glom Filt Rate - Afr Amer 56 mL/min (>60); Estimated Creatinine Clearance 37.28 ml/min; Globulin 4.1 g/dL (2.2-4.2); Glucose 114 mg/dL (74-106); Potassium 4.1 mmol/L (3.5-5.1); Sodium Level 142 mmol/L (136-145)
--- NOTE | 2020-05-17 20:42 | ED.VIS.GEN ---
History of Present Illness Chief Complaint: Edema Informant: Patient, Family Past Medical History - Allergies and Home Meds Allergies/Adverse Reactions: Allergies doxycycline Allergy (Severe, Verified 05/17/20 19:36) ulcerations of lips and mouth gabapentin Adverse Reaction (Severe, Verified 05/17/20 19:36) GI upset, Vomiting ciprofloxacin [From Cipro] Adverse Reaction (Intermediate, Verified 05/17/20 19:36) Other messes with her heart medicine Primary Care Physician: Darinel Callejas Chi, MD [Primary Care Provider] - Surgical History: hysterectomy, - - tubal ligation, oophorectomy, knee surgery, status post cardiac radiofrequency ablation, cardiac catheterization, Left hip ORIF intramedullary nail. Smoking Status: Former smoker - Family History Maternal Family History: Family History (Last Reviewed 02/28/20 @ 04:[address] William Cabrera MD) Mother Heart disease Arthritis blood clots Hypertension Father arthrits Cancer Brother Cancer Aunt Breast cancer Depression Ovarian cancer Grandmother CVA (cerebral vascular accident) Aunt Diabetes Family History: Reports: Heart Disease, Hypertension, - - Blood clot Paternal Family History: Family History (Last Reviewed 02/28/20 @ 04:[address] William Cabrera MD) Mother Heart disease Arthritis blood clots Hypertension Father arthrits Cancer Brother Cancer Aunt Breast cancer Depression Ovarian cancer Grandmother CVA (cerebral vascular accident) Aunt Diabetes Family History: Reports: Cancer - Lung cancer Physical Exam Vital Signs/Narrative: Vital Signs Temp Pulse Resp BP Pulse Ox 05/17/20 19:33 97.6 F L 73 18 133/77 H 95 ED Disposition - Plan for ED Patient: Diagnosis: CHF exacerbation Instructions: ED CHF General, ED Peripheral Edema, Bilateral Prescriptions: Furosemide [Lasix] 40 mg PO DAILY #3 tab Prescription Printed Referrals: Darinel Callejas Chi, MD [Primary Care Provider] -
[2020-05-17 20:53] VITALS: BP 130/68; PULSE 67; RESP 18; O2SAT 96
== END 2020-05-17 20:53 | disposition home or self-care (01) ==
LOC: ED 19:58
PROVIDERS: Emergency Provider Emergency Medicine; PCP Family Medicine Geriatric Medicine
DX: I50.9 Heart failure, unspecified (principal); Z87.891 Personal history of nicotine dependence
CPT/HCPCS: 71045; 80048; 80076; 83880; 84484; 85025; 93005; 99284; A4216

== ENCOUNTER 2020-06-15 19:56 | Inpatient (IN) | payer MEDICARE, SELFPAY ==
[2020-06-15] VITALS (8 sets, daily range): BP systolic 115–137; BP diastolic 60–70; PULSE 70–76; RESP 16–22; TEMP 36.4–36.6; O2SAT 78–99; BMI 42.9; BMI 40.6
--- NOTE | 2020-06-15 20:36 | RAD_ITS ---
STUDY: X-RAY - RIGHT FOOT CLINICAL: Female, 69 years old. Infection, and edema. TECHNIQUE: 3 view(s) of the foot. COMPARISON: None. FINDINGS: Normal talus, calcaneus, and tarsal bones. Normal visualized subtalar, talonavicular, calcaneocuboid, tarsal and tarsometatarsal articulations. Normal metatarsi. Normal metatarsophalangeal joint of the great toe. Normal tibial and fibular sesamoid bones. Normal interphalangeal joint of the great toe. Normal phalanges of the great toe. Normal second through fifth metatarsophalangeal joints. Normal interphalangeal joints and phalanges of the lesser toes. The soft tissue structures are unremarkable. RAD/Foot min 3 Views IMPRESSION: Normal x-ray examination of the foot. Electronically Signed: Nakul Barrera, at 21:14 EDT Tel , Service support ,
--- NOTE | 2020-06-15 20:50 | ED.VIS.GEN ---
History of Present Illness Chief Complaint: Edema Informant: Patient Onset: Month(s) Context: Gradual Onset Narrative: Patient presents with increased lower extremity edema for the past month. Over the last 3 days she has had a wound on her right second toe. Family states they soaked her foot in Epson salt yesterday and the blister that was covering the wound opened. No drainage from the wound. No fever or chills, but states that she did feel very warm last evening. She has a history of CHF but is no longer on Lasix secondary to renal disease. - Past Medical History (1) Anxiety Status: Chronic (2) Asthma Status: Chronic (3) COPD (chronic obstructive pulmonary disease) Status: Chronic (4) Cardiomyopathy, dilated Status: Chronic (5) Chronic combined systolic and diastolic CHF (congestive heart failure) Status: Chronic (6) Depression Status: Chronic (7) GERD (gastroesophageal reflux disease) Status: Chronic (8) Hypertension Status: Chronic (9) Left ventricular hypertrophy Status: Chronic (10) Paroxysmal atrial fibrillation Status: Chronic Past Medical History - Allergies and Home Meds Allergies/Adverse Reactions: Allergies doxycycline Allergy (Severe, Verified 06/15/20 19:58) ulcerations of lips and mouth gabapentin Adverse Reaction (Severe, Verified 06/15/20 19:58) GI upset, Vomiting ciprofloxacin [From Cipro] Adverse Reaction (Intermediate, Verified 06/15/20 19:58) Other messes with her heart medicine Primary Care Physician: Darinel Callejas Chi, MD [Primary Care Provider] - Prior records reviewed: Yes Surgical History: hysterectomy, - - tubal ligation, oophorectomy, knee surgery, status post cardiac radiofrequency ablation, cardiac catheterization, Left hip ORIF intramedullary nail. Lives: Spouse/ Significant Other, With Family Smoking Status: Former smoker - Family History Maternal Family History: Family History (Last Reviewed 02/28/20 @ 04:[address] William Cabrera MD) Mother Heart disease Arthritis blood clots Hypertension Father arthrits Cancer Brother Cancer Aunt Breast cancer Depression Ovarian cancer Grandmother CVA (cerebral vascular accident) Aunt Diabetes Family History: Reports: Heart Disease, Hypertension, - - Blood clot Paternal Family History: Family History (Last Reviewed 02/28/20 @ 04:[address] William Cabrera MD) Mother Heart disease Arthritis blood clots Hypertension Father arthrits Cancer Brother Cancer Aunt Breast cancer Depression Ovarian cancer Grandmother CVA (cerebral vascular accident) Aunt Diabetes Family History: Reports: Cancer - Lung cancer Review of Systems General: Denies: Chills, Fever Eyes: Denies: Visual changes - bilaterally ENT: Denies: Bilateral ear pain Cardiovascular: Denies: Chest pain Respiratory: Denies: Dyspnea, Cough Gastrointestinal: Denies: Abdominal pain, Vomiting Musculoskeletal: Reports: Extremity Pain Skin: Reports: Wounds Neurological: Denies: Headache Hematologic: Denies: Easy bruising, Easy bleeding Allergy: Denies: Uticaria Physical Exam Vital Signs/Narrative: Vital Signs Temp Pulse Resp BP Pulse Ox 06/15/20 20:45 73 22 H 121/60 H 99 06/15/20 20:40 78 06/15/20 19:57 97.6 F L 70 16 115/61 94 Inital Vital Signs reviewed: Yes General: Well nourished, Well developed Head: Normocephalic ENT: Moist mucous membranes Neck: Supple Cardiovascular: Regular rate, Regular rhythm Respiratory: No distress, CTA bilaterally Abdomen: Soft, Nontender Extremities: - - Erythema of the bilateral lower extremities. The right second toe is mildly edematous with a wound over the anterior surface. No drainage at this time. Neurological: Alert, Oriented x3 Psychological: Normal affect Diagnostic/Tx/Re-eval Impressions Foot X-Ray 06/15/20 20:36 IMPRESSION: Normal x-ray examination of the foot. Electronically Signed: Nakul Bruce, at 21:14 EDT Tel , Service support , 06/15/20 20:36 Foot min 3 Views [RAD] Stat Laboratory Results 06/15/20 06/15/20 06/15/20 20:50 20:50 20:50 WBC 8.6 RBC 3.96 L Hgb 11.7 L Hct 39.6 MCV 100.0 H MCH 29.5 MCHC 29.5 L RDW Std Deviation 50.8 H RDW Coeff of Ankit 13.8 Plt Count 420 MPV 9.6 Immature Gran % (Auto) 0.500 Neut % (Auto) 72.6 H Lymph % (Auto) 13.9 L Antelope % (Auto) 10.2 H Eos % (Auto) 2.1 Baso % (Auto) 0.7 Absolute Neuts (auto) 6.3 Absolute Lymphs (auto) 1.20 Nucleated RBC % 0 Sodium 140 Potassium 3.9 Chloride 105 Carbon Dioxide 30.0 Anion Gap 5 BUN 24 H Creatinine 1.18 H Estim Creat Clear Calc 38.86 Est GFR (MDRD) Af Amer 58 L Est GFR (MDRD) Non-Af 48 L BUN/Creatinine Ratio 20.3 H Glucose 105 Lactic Acid 1.1 Calcium 9.1 B-Natriuretic Peptide 06/15/20 20:50 WBC RBC Hgb Hct MCV MCH MCHC RDW Std Deviation RDW Coeff of Ankit Plt Count MPV Immature Gran % (Auto) Neut % (Auto) Lymph % (Auto) Antelope % (Auto) Eos % (Auto) Baso % (Auto) Absolute Neuts (auto) Absolute Lymphs (auto) Nucleated RBC % Sodium Potassium Chloride Carbon Dioxide Anion Gap BUN Creatinine Estim Creat Clear Calc Est GFR (MDRD) Af Amer Est GFR (MDRD) Non-Af BUN/Creatinine Ratio Glucose Lactic Acid Calcium B-Natriuretic Peptide 1670.5 H - Medical Decision Making Test results reviewed with the patient. She will be given Zosyn and vancomycin for her foot infection. She will be given a dose of Lasix. On review of her records she did have arterial studies done in late February of this year that revealed triphasic flow throughout. I will speak with hospitalist regarding admission. ED Disposition - Plan for ED Patient: Disposition: Acute Care Hospital [facility] Diagnosis: Right foot infection Referrals: Darinel Callejas Chi, MD [Primary Care Provider] -
[2020-06-15 21:18] LABS: Absolute Neutrophil Count 6.3 X10^3/uL (2.0-7.7); Basophil# 0.06 X10^3/uL; Basophil% 0.7 % (0-1); Eosinophil# 0.18 X10^3/uL; Eosinophils% 2.1 % (0-5); Hematocrit 39.6 % (37-47); Hemoglobin 11.7 g/dL (12.0-15.0); Lymphocyte % 13.9 % (19-41); Mean Corp Hgb Conc 29.5 g/dL (32-36); Mean Corpuscular Hgb 29.5 pg (27.0-32.0); Mean Platelet Vol. 9.6 fl (6.2-12.0); Monocyte# 0.88 X10^3/uL; Monocyte% 10.2 % (0-10); NRBC Flagged by Analyzer 0 % (0-5); Neutrophil # 6.27 X10^3/uL (2.7-7.7); Neutrophil % 72.6 % (47-70); Platelet Count 420 K/mm3 (150-450); RBC Distribution Width CV 13.8 % (11.6-14.6); RBC Distribution Width SD 50.8 fl (35.1-43.9); Red Blood Count 3.96 M/mm3 (4.2-5.4); White Blood Count 8.6 K/mm3 (4.4-11.0)
[2020-06-15 21:25] LABS: Anion Gap 5 (5-15); BUN 24 mg/dL (7-18); BUN/Creat Ratio 20.3 RATIO (10-20); Calcium,Total 9.1 mg/dL (8.5-10.1); Chloride 105 mmol/L (98-107); Creatinine, Serum 1.18 mg/dL (0.55-1.02); EST Glomerular Filtration Rate 48 mL/min (>60); Est Glom Filt Rate - Afr Amer 58 mL/min (>60); Estimated Creatinine Clearance 38.86 ml/min; Glucose 105 mg/dL (74-106); Potassium 3.9 mmol/L (3.5-5.1); Sodium Level 140 mmol/L (136-145)
[2020-06-15 21:29] LABS: Lactic Acid 1.1 mmol/L (0.4-1.9)
[2020-06-15 21:40] LABS: BNP,B-Type NATRIURETIC PEPTIDE 1670.5 pg/mL (0-100)
--- NOTE | 2020-06-15 22:03 | HP.PCM_ITS ---
Problem List (1) Chronic combined systolic and diastolic CHF (congestive heart failure) Status: Acute (2) Right foot infection Status: Acute (3) COPD (chronic obstructive pulmonary disease) Status: Chronic Qualifiers: COPD type: unspecified COPD Qualified Code(s): J44.9 - Chronic obstructive pulmonary disease, unspecified (4) Cardiomyopathy, dilated Status: Chronic (5) ESPERANZA (obstructive sleep apnea) Status: Chronic (6) Chronic respiratory failure with hypoxia Status: Chronic (7) Anxiety Status: Chronic (8) Depression Status: Chronic Qualifiers: Depression Type: unspecified Qualified Code(s): F32.9 - Major depressive disorder, single episode, unspecified (9) Back pain Status: Chronic Qualifiers: Back pain location: back pain in unspecified location Chronicity: chronic Back pain laterality: unspecified Qualified Code(s): M54.9 - Dorsalgia, unspecified; G89.29 - Other chronic pain (10) Hypertension Status: Chronic Qualifiers: Hypertension type: essential hypertension Qualified Code(s): I10 - Essential (primary) hypertension (11) 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 Status: Chronic (12) Paroxysmal atrial fibrillation Status: Chronic (13) Asthma Status: Chronic Qualifiers: Asthma severity: unspecified severity Asthma persistence: unspecified Asthma complication type: unspecified Qualified Code(s): J45.909 - Unspecified asthma, uncomplicated History of Present Illness Date of Admission: 06/15/20 Chief Complaint: BL LE edema, weight gain, R 2nd toe wound The patient is a 69 y/o F w/ PMHx: Morbid Obesity, GERD, Dilated Cardiomyopathy, CKD stage III, Combined Systolic/Diastolic CHF, Hx VTE, Asthma, PAF s/p RFA, HTN, HLD, Chronic back pain, Anxiety and Depression who presents to the [facility] ED on 06/15/20 with history of increasing bilateral lower extremity edema and stasis associated skin changes worsening x3 to 4 weeks with onset x 3 days right second toe anterior wound prompting patient to use Epsom soaks following which a blister that had been present opened with no drainage with subjective fever but no measured fever or chills prompting eventual ED presentation. Patient in the past had been on diuresis but this was discontinued secondary to underlying renal disease. She also notes several week history of weight gain, orthopnea, exertional dyspnea but no associated chest pain. Work-up in the ED included T 97.6, heart rate 70, BP 115/61, respiratory rate 16, initially 94% on room air however decreased to 78% on room air with improvement to 99% on 4 L nasal cannula as patient had reportedly come to the ED off of her chronic 4L NC, CBC with WC 8.6, hemoglobin 0.4, platelet 420 without market shift, BMP with sodium 140, potassium 3.9, BUN/creatinine 24/1.18, glucose 105, BNP 1670.5, lactic acid 1.1, plain film of the right foot unremarkable, Blood culture x2 pending per ED. CXR and EKG pending. In the ED patient administered IV lasix, zosyn, vanc. Past Medical History Past Medical History (Chronic Problems): Chronic Problems (Last Updated 02/28/20 @ 07:[address] Santosh Nobles MD) CHF exacerbation (Chronic) Debility (Chronic) Vitamin D deficiency (Chronic) Restless leg syndrome (Chronic) COPD (chronic obstructive pulmonary disease) (Chronic) Cardiomyopathy, dilated (Chronic) ESPERANZA (obstructive sleep apnea) (Chronic) Chronic respiratory failure with hypoxia (Chronic) Anxiety (Chronic) Depression (Chronic) Osteoarthritis (Chronic) Pulmonary nodules (Chronic) Left ventricular hypertrophy (Chronic) Back pain (Chronic) Chronic systolic heart failure (Chronic) GERD (gastroesophageal reflux disease) (Chronic) Non-sustained ventricular tachycardia (Chronic) Hypertension (Chronic) 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) MCC current use of antiarrhythmic medical therapy (Chronic) Paroxysmal atrial fibrillation (Chronic) Asthma (Chronic) Medical History: Medical History (Last Updated 02/28/20 @ 07:[address] Santosh Nobles MD) Cardiomyopathy, dilated (Chronic) I42.0 Chronic combined systolic and diastolic CHF (congestive heart failure) (Chronic) I50.42 Non-sustained ventricular tachycardia (Chronic) I47.2 Hypertension (Chronic) I10 Paroxysmal atrial fibrillation (Chronic) I48.0 Asthma (Chronic) J45.909 Chronic back pain M54.9, G89.29 Chronic bronchitis J42 GERD (gastroesophageal reflux disease) K21.9 Kidney disease, chronic, stage III (GFR 30-59 ml/min) N18.3 blood clots Allergies doxycycline Allergy (Severe, Verified 06/15/20 19:58) ulcerations of lips and mouth gabapentin Adverse Reaction (Severe, Verified 06/15/20 19:58) GI upset, Vomiting ciprofloxacin [From Cipro] Adverse Reaction (Intermediate, Verified 06/15/20 19:58) Other messes with her heart medicine Home Medications: Ambulatory Orders Medication Instructions Recorded Albuterol Inhaler [Ventolin Hfa] 1 puff INHALATION Q4H PRN PRN 08/08/13 Fluticasone 0.05% [Flonase Nasal 1 spray NASAL DAILY 08/08/13 Pavo] flecainide 150 mg tablet 150 mg PO BID 08/16/17 Venlafaxine HCl [Venlafaxine HCl 75 mg PO QHS 01/28/18 ER] Metoprolol Tartrate [Lopressor 25 mg PO BID 02/01/18 (beta bairon)] Acetaminophen [Tylenol] 1,000 mg PO Q8 05/13/19 Venlafaxine HCl [Venlafaxine HCl 150 mg PO DAILY 05/13/19 ER] Famotidine [Pepcid] 40 mg PO DAILY #30 tab 05/28/19 Nystatin Powder [Mycostatin Powder] 1 applic TOPICAL 0600,2200 bottle 05/28/19 Polyethylene Glycol 3350 [Miralax] 17 gm PO DAILY PRN PRN 02/28/20 Diclofenac Sodium [Voltaren] 1 - 2 gm TOPICAL TID PRN 04/02/20 Morphine Sulfate 15 mg PO BID 04/02/20 Guaifenesin [Mucinex] 1,200 mg PO BID #14 tab.er.12h 04/06/20 Oxycodone HCl/Acetaminophen 1 tab PO Q8H 06/15/20 [Percocet 5/325] Surgical History: Surgical History (Last Reviewed 02/28/20 @ 04:[address] William Cabrera MD) H/O cardiac radiofrequency ablation Onset Date: ~09/03/13 Z98.890 H/O hysterectomy with oophorectomy H/O tubal ligation Z98.51 History of knee surgery Z98.890 Surgical History: hysterectomy, - - tubal ligation, oophorectomy, knee surgery, status post cardiac radiofrequency ablation, cardiac catheterization, Left hip ORIF intramedullary nail. Psychiatric History: Anxiety, Depression, - - Non-compliance. [employer] History: No pertinent [employer] history Lives: Spouse/ Significant Other, With Family Smoking Status: Former smoker Tobacco Use: Non-smoker Alcohol: None Drugs: None - *Family History Maternal Family History: Family History (Last Reviewed 02/28/20 @ 04:[address] William Cabrera MD) Mother Heart disease Arthritis blood clots Hypertension Father arthrits Cancer Brother Cancer Aunt Breast cancer Depression Ovarian cancer Grandmother CVA (cerebral vascular accident) Aunt Diabetes History Items: Heart Disease, Hypertension, - - Blood clot Paternal Family History: Family History (Last Reviewed 02/28/20 @ 04:[address] William Cabrera MD) Mother Heart disease Arthritis blood clots Hypertension Father arthrits Cancer Brother Cancer Aunt Breast cancer Depression Ovarian cancer Grandmother CVA (cerebral vascular accident) Aunt Diabetes History Items: Cancer - Lung cancer Review of Systems Constitutional: Reports: Malaise, Weakness, Weight Change, Fatigue. Denies: Anorexia, Chills, Fever HEENT: Denies: Head Aches, Sinus Congestion, Sinus Drainage Cardiovascular: Reports: Edema, Orthopnea. Denies: Chest Pain, Chest Pressure, Chest Tightness, Heaviness, Light Headedness, Palpitations, Syncope Respiratory: Reports: Shortness of breath upon exertion. Denies: Cough, Shortness of Breath, Shortness of breath at rest, Sputum production, Wheezing Gastrointestinal: Denies: Abdominal Pain, Nausea, Vomiting Genitourinary: Denies: Dysuria Musculoskeletal: Reports: Back Pain, Joint Pain. Denies: Joint Tenderness Skin: Reports: Skin Changes, Wounds. Denies: Rash Neurological: Denies: Numbness, Tingling, Focal weakness Psychiatric: Reports: Anxiety, Depression. Denies: Homicidal Ideations, Suicidal Ideations Hematologic/ Lymphatic: Reports: Anemia, Easy Bruising, Easy Bleeding VTE Information - Inpt Only VTE Present on Admission: No VTE Mechan Device Prophylaxis: SCD's VTE Pharm Prophylaxis ordered?: Yes Patient Problems: Active and Suspected Problems (Last Updated 02/28/20 @ 07:[address] Santosh Nobles MD) Right foot infection (Acute) Subjective: Patient seated upright in ED bed, fatigued appearing, mild increased respiratory rate. Objective: Physical Examination: General: awake, alert, oriented x 3 and cooperative, seated upright in the ED bed, fatigued appearance, no obvious distress. Skin: normal color, turgor, no icterus, cyanosis except noted bilateral lower extremity stasis disease, additionally right second toe anterior wound, no current drainage, edematous, erythematous to the toe and dorsal lower foot region, painful to palpation.. HEENT: AT/NC, EOMI, PERRLA, mildly dry MM, no obvious carotid bruits or JVD noted; however, thickened neck makes examination difficult. Lungs: Diminished breath sounds, greater bases, mildly increased effort, minimal rales bases, no obvious rhonchi or wheezing. Heart: Regular rate and rhythm; no gallop, rub audible. Abdomen: soft, morbidly obese, NTTP, ND, normal BS, no obvious HSM however habitus makes examination difficult. Extremities: no cyanosis, clubbing, see skin, additionally 2+ pitting edema knee to ankle. Neurological: patient awake, alert, oriented as noted; cognitive function intact; pupils equally reactive to light and accomodation; cranial nerves II-XII grossly normal, moving all 4 extremities, no focal deficits, strength moderately to severely global decrease secondary to acute presentation. Psychiatric: affect appears fatigued, mildly uncomfortable with pedal examination otherwise normal, no acute evidence of depressive or anxiety feelings. - Physical Exam Vitals/I&O's: Vital Signs Temp Pulse Resp BP Pulse Ox 97.6 F L 72 20 H 121/60 H 99 06/15/20 21:13 06/15/20 21:13 06/15/20 21:13 06/15/20 21:13 06/15/20 21:13 Oxygen Flow Rate (L/min) 4 Oxygen Delivery Method Nasal Cannula Weight: 250 lb Body Mass Index (BMI) 42.9 Laboratory Results 06/15/20 20:50: WBC 8.6, RBC 3.96 L, Hgb 11.7 L, Hct 39.6, MCV 100.0 H, MCH 29.5, MCHC 29.5 L, RDW Std Deviation 50.8 H, RDW Coeff of Ankit 13.8, Plt Count 420, MPV 9.6, Immature Gran % (Auto) 0.500, Neut % (Auto) 72.6 H, Lymph % (Auto) 13.9 L, [place] % (Auto) 10.2 H, Eos % (Auto) 2.1, Baso % (Auto) 0.7, Absolute Neuts (auto) 6.3, Absolute Lymphs (auto) 1.20, Nucleated RBC % 0 06/15/20 20:50: Sodium 140, Potassium 3.9, Chloride 105, Carbon Dioxide 30.0, Anion Gap 5, BUN 24 H, Creatinine 1.18 H, Estim Creat Clear Calc 38.86, Est GFR (MDRD) Af Amer 58 L, Est GFR (MDRD) Non-Af 48 L, BUN/Creatinine Ratio 20.3 H, Glucose 105, Calcium 9.1 06/15/20 20:50: Lactic Acid 1.1 06/15/20 20:50: B-Natriuretic Peptide 1670.5 H Current Medications Piperacillin Sod/Tazobactam (Sod 3.375 gm/ Sodium Chloride) 50 mls @ 100 mls/hr IV X1 ONE Stop: 06/15/20 22:25 Vancomycin HCl 1,750 mg/ (Dextrose) 285 mls @ 250 mls/hr IV X1 ONE Stop: 06/15/20 23:05 Assessment/Plan All Active Problems (Last Updated 02/28/20 @ 07:[address] Santosh Nobles MD) Generalized weakness (Acute) Dyspnea (Acute) Patient's noncompliance with other medical treatment and regimen (Acute) Hypoxemia (Acute) COPD exacerbation (Acute) Right foot infection (Acute) Cellulitis of right lower extremity (Acute) Sepsis (Acute) Chronic combined systolic and diastolic CHF (congestive heart failure) (Acute) The patient is a 69 y/o F w/ PMHx: Morbid Obesity, GERD, Dilated Cardiomyopathy, CKD stage III, Combined Systolic/Diastolic CHF, Hx VTE, Asthma, PAF s/p RFA, HTN, HLD, Chronic back pain, Anxiety and Depression who presents to the [facility] ED on 06/15/20 with history of increasing bilateral lower extremity edema and stasis associated skin changes worsening x3 to 4 weeks with onset x 3 days right second toe anterior wound prompting patient to use Epsom soaks following which a blister that had been present opened with no drainage with subjective fever but no measured fever or chills prompting eventual ED presentation. 1. Acute Decompensated Systolic/Diastolic CHF, Dilated Cardiomyopathy with Chronic Hypoxic Respiratory Failure: Patient during transition to ED off oxygen (4L NC) likely contributing to her acute hypoxia. Chest x-ray and EKG pending. Patient administered IV lasix in the ED, will admit to PCU, maintain on cardiac telemetry, obtain cardiac enzyme series, obtain serial EKGs, continue IV lasix diuresis, monitor I/Os, maintain on intake restriction, continue medical therapy w/ asa, BB, not on statin or ACEI. Will obtain TSH and magnesium level. Most recent ECHO noted 05/14/19 w/ normal LV systolic function, EF 55%, mildly dilated LV, stage I diastolic dysfunction, mild to moderate TVI therefore will request repeat. Maintain SNUG chon wraps with BL LE elevation. Fluid restriction. Patient also notes that she sometimes is noncompliant with wearing oxygen out of the home as her device is too heavy to use, requested that she discussed potentially getting a compressor with case management/social work for discharge planning. 2. Right lower extremity stasis wound, ulcer complicated by bilateral lower extremity stasis disease: Right second toe with anterior wound, will consult wound care and plan to continue local care, continue IV vancomycin and Zosyn with pending MRSA wound and if negative de-escalate off, elevate bilateral lower extremities, snug Chon wraps, diuresis to assist as likely stasis is contributing. May benefit from consideration of wound care center consultation at discharge for assistance with stasis disease and edema. Per reports patient with arterial studies performed 02/2020 with triphasic flow. 3. Chronic Kidney Disease Stage III: Admission BUN/Cr 24/1.18, baseline renal function 1.1-1.5, stable, repeat BMP in AM. 4. Chronic anemia, currently macrocytic: Admission hemoglobin 1.7, baseline more recently 12-13, prior has been 9-10 range, not on any supplementation, will obtain iron panel, ferritin, vitamin B12, folic acid levels. 5. PAF: We will continue patient flecainide, metoprolol regimen, not anticoagulated per current list. 6. Hypertension: Continue home regimen including metoprolol with hold parameters, PRN hydralazine. 7. Hyperlipidemia: Not on regimen, defer to outpatient. 8. Morbid Obesity: Weight loss and lifestyle changes encouraged, nutrition consulted. 9. Chronic pain syndrome, chronic back pain: We will continue patient home chronic morphine sulfate oral regimen with home PRN Percocet regimen additionally. Continue aggressive PRN bowel regimen. 10. Anxiety and depression: We will continue patient home venlafaxine regimen. 11. GERD: We will maintain on famotidine. 12. Hx VTE: Not on anticoagulation. 13. DVT prophylaxis: SCDs, Lovenox. 14. CODE status: Patient does not have healthcare power of immigration attorney nor living will set up but notes she has been attempting to work on this. Encouraged her to discuss this with case management/social work for assistance. Discussed CODE status at length including difference between FULL code, DNR-CCA and DNR-CC status. Following discussions about the differences in these status, requested Full Code status. Advanced Care Planning Face to Face Time: 16 minutes. Inpatient E&M: 63704 Init Hosp L3 Procedures: 81598 Advncd Care Plan 30 Min
--- NOTE | 2020-06-15 22:08 | RAD_ITS ---
STUDY: X-RAY CHEST REASON FOR EXAM: Female, 69 years old. Shortness of breath. TECHNIQUE: Single AP portable view of the chest. COMPARISON: 05/17/2020. FINDINGS: No pleural effusion. Mild fibrotic changes in the lung bases. Normal size heart. Normal mediastinum and leonid. Normal visualized pulmonary arteries. Normal visualized aortic arch and descending thoracic aorta. Normal visualized thoracic spine. Normal visualized ribs, clavicles, and shoulders. There is no demonstrated abnormality of the visualized soft tissue structures of the upper abdomen. RAD/Chest 1 View (Portable) IMPRESSION: No acute findings. Electronically Signed: Johanna Jiménez MD at 23:18 EDT Tel , Service support ,
--- NOTE | 2020-06-15 22:08 | EKG12_ITS ---
Test Reason : DYSRHYTHMIA Blood Pressure : / mmHG Vent. Rate : 072 BPM Atrial Rate : 072 BPM P-R Int : 224 ms QRS Dur : 138 ms QT Int : 412 ms P-R-T Axes : 055 018 096 degrees QTc Int : 451 ms Sinus rhythm with 1st degree A-V block Non-specific intra-ventricular conduction block T wave abnormality, consider anterolateral ischemia Abnormal ECG Confirmed by ROCAEL LAMBERT, BOBBI ([id number]), news editor ASHKAN CHINO ([id number]) on 06/17/2020 12:55:09 PM Referred By: ALIE Confirmed By:BOBBI COTE MD
[2020-06-15] MEDS: Furosemide 40 MG/4 ML Vial IV (22:25)
--- NOTE | 2020-06-15 23:25 | ECHOD_ITS ---
Reason For Study: ARRHYTHMIA Procedure This was a 2D Doppler, Color Flow transthoracic echocardiogram. Exam performed portable in patient room. Left Ventricle Mildly dilated left ventricle. The estimated ejection fraction is 50 %. Unable to assess diastolic dysfunction. No regional wall motion abnormalities noted. Right Ventricle Normal RV size. Normal systolic function. Atria The left atrium is mildly enlarged. Normal right atrium. Normal atrial septum. Mitral Valve There is moderate mitral annular calcification. There is no mitral valve stenosis. Mild (1+) mitral valve insufficiency. Tricuspid Valve There is no tricuspid stenosis. Unable to estimate RV systolic pressure due to inadequate jet, pulmonary artery pressure probably normal. Aortic Valve Trisinus/trileaflet aortic valve. There is no aortic stenosis. Mild (1+) aortic valve insufficiency. Pulmonic Valve There is no pulmonic valvular stenosis. No pulmonic valve insufficiency. Great Vessels Normal aortic root. Pericardium/Pleural No pericardial effusion. MMode/2D Measurements & Calculations LVIDd: 5.6 cm IVSd: 0.94 cm Ao root diam: 3.4 cm LVIDs: 4.6 cm LVPWd: 1.0 cm RVDd: 3.7 cm FS: 18.2 % LAV(MOD-bp): 76.4 ml LVAd ap4: 41.4 cm2 SV(MOD-sp4): 68.6 ml LAV(MOD-bp) Indexed: 35.9 ml/m2 EDV(MOD-sp4): 166.1 ml LAV(MOD-sp2): 69.8 ml EDV(sp4-el): 173.4 ml LAV(MOD-sp4): 80.9 ml LVAs ap4: 30.4 cm2 ESV(MOD-sp4): 97.5 ml ESV(sp4-el): 101.2 ml EF(MOD-sp4): 41.3 % EF(sp4-el): 41.6 % SV(sp4-el): 72.2 ml LA A4 area: 23.4 cm2 LA dimension(2D): 4.1 cm RA A4 area: 16.6 cm2 Time Measurements MV dec time: 0.28 sec Doppler Measurements & Calculations MV E max jessee: 94.1 cm/sec Lat Peak E' Jessee: 8.4 cm/sec Med Peak E' Jessee: 4.6 cm/sec MV A max jessee: 120.5 cm/sec E/E' lat: 11.2 E/E' med: 20.3 MV E/A: 0.78 Ao V2 max: 109.3 cm/sec AI max jessee: 403.8 cm/sec PA V2 max: 92.9 cm/sec Ao max P.4 mmHg AI max P.2 mmHg AI dec slope: 161.1 cm/sec2 AI P1/2t: 733.9 msec Interpretation Summary The estimated ejection fraction is 50 %. Unable to assess diastolic dysfunction. Mild (1+) mitral valve insufficiency. Mild (1+) aortic valve insufficiency. Ordering Physician: mAy Parker Referring Physician: DENG CURTIS Performed By: Yamileth Alamo RDCS
[2020-06-15] MEDS: oxyCODONE 5 MG Tablet PO (23:58)
[2020-06-16] VITALS (12 sets, daily range): BP systolic 97–120; BP diastolic 38–56; PULSE 73–87; RESP 18; TEMP 36.7–36.8; O2SAT 94–97
[2020-06-16 00:31] LABS: Ferritin 40 ng/mL (8-252); Iron 28 ug/dL (50-170); Iron Binding Capacity,Total 293 ug/dL (250-450); PERCENT IRON SATURATION 9.6 % (15.0-55.0)
--- NOTE | 2020-06-16 01:17 | NURSING ---
RN HAS DRESSED RIGHT FOOT MULTIPLE TIMES, PATIENT KEEPS TAKING OFF BANDAGE. GOING TO LEAVE OPEN TO AIR AT THIS TIME.
[2020-06-16] MEDS: HYDROmorphone 1 MG/ML Syringe IV (01:28)
--- NOTE | 2020-06-16 02:29 | PCM.RX.CS ---
Consult Pharmacy has been consulted to manage selected antiobiotic: Vancomycin Type of Consult: New start Labs: Sodium 140 mmol/L (136-145) 06/15/20 20:50 Potassium 3.9 mmol/L (3.5-5.1) 06/15/20 20:50 Chloride 105 mmol/L (98-107) 06/15/20 20:50 Carbon Dioxide 30.0 mmol/L (21.0-32.0) 06/15/20 20:50 Anion Gap 5 (5-15) 06/15/20 20:50 BUN 24 mg/dL (7-18) H 06/15/20 20:50 Creatinine 1.18 mg/dL (0.55-1.02) H 06/15/20 20:50 Est GFR (MDRD) Af Amer 58 mL/min (>60) L 06/15/20 20:50 Est GFR (MDRD) Non-Af 48 mL/min (>60) L 06/15/20 20:50 BUN/Creatinine Ratio 20.3 RATIO (10-20) H 06/15/20 20:50 Glucose 105 mg/dL (74-106) 06/15/20 20:50 Goal Trough: 15-20 mcg/mL Pharmacy Plan for Drug Dosing: Pharmacy Service will continue to monitor and adjust dosing as required. Medications Vancomycin IV Pharmacy to Dose (1 ea/ Sodium Chloride) 500 mls @ 250 mls/hr IV X1 PRN; Protocol PRN Reason: Rx to Dose Vancomycin HCl 1,250 mg/ (Sodium Chloride) 275 mls @ 167 mls/hr IV Q12H KIM Discontinued Medications Vancomycin HCl 1,750 mg/ (Sodium Chloride) 535 mls @ 250 mls/hr IV X1 ONE Stop: 06/16/20 00:28 Last Admin: 06/16/20 01:40 Dose: Infused Documented by: Follow-Up Labs: Trough Vancomycin Labs to be done on [date and time ordered]: 06/17 @ 1100
[2020-06-16 02:32] LABS: M R Staph aureus DNA By PCR Negative (Negative); Probe Check PASS; Specimen Processing Control PASS; Staph aureus DNA By PCR POSITIVE (Negative)
[2020-06-16 06:04] LABS: Absolute Lymphocyte Count 1.92 X10^3/uL (0.83-4.51); Absolute Neutrophil Count 8.4 X10^3/uL (2.0-7.7); Basophil# 0.07 X10^3/uL; Basophil% 0.6 % (0-1); Eosinophil# 0.15 X10^3/uL; Eosinophils% 1.3 % (0-5); Hematocrit 46.6 % (37-47); Hemoglobin 14.2 g/dL (12.0-15.0); Lymphocyte # 1.92 X10^3/ul (4.0); Lymphocyte % 16.4 % (19-41); Mean Corp Hgb Conc 30.5 g/dL (32-36); Mean Corpuscular Hgb 28.7 pg (27.0-32.0); Mean Corpuscular Volume 94.1 fL (81-99); Mean Platelet Vol. 10.1 fl (6.2-12.0); Monocyte% 10.2 % (0-10); NRBC Flagged by Analyzer 0 % (0-5); Neutrophil # 8.37 X10^3/uL (2.7-7.7); Neutrophil % 71.2 % (47-70); Platelet Count 253 K/mm3 (150-450); RBC Distribution Width CV 14.9 % (11.6-14.6); RBC Distribution Width SD 50.8 fl (35.1-43.9); Red Blood Count 4.95 M/mm3 (4.2-5.4); White Blood Count 11.7 K/mm3 (4.4-11.0)
[2020-06-16] MEDS: Nystatin Powder 15gm Bottle 1 APPLIC TOPICAL ×2 (06:17→18:32)
[2020-06-16] MEDS: Acetaminophen 500 MG Tablet 1000 MG PO ×3 (06:17→21:15)
[2020-06-16] MEDS: Furosemide 40 MG/4 ML Vial IV ×2 (06:18→21:47)
[2020-06-16] MEDS: 0.9% Saline Lock 10 ML Syringe IV ×5 (06:18→22:10)
[2020-06-16] MEDS: oxyCODONE 5 MG Tablet PO (06:32)
[2020-06-16 07:23] LABS: ALB/GLOB Ratio 0.6 RATIO (0.9-2.4); AST(SGOT) 20 U/L (15-37); Alanine Aminotransfer ALT/SGPT 16 U/L (13-56); Albumin, Serum 2.6 g/dL (3.2-5.0); Alkaline Phosphatase 98 U/L (45-117); Anion Gap 5 (5-15); BUN 21 mg/dL (7-18); BUN/Creat Ratio 18.6 RATIO (10-20); Calcium,Total 8.9 mg/dL (8.5-10.1); Chloride 102 mmol/L (98-107); Cholesterol 156 mg/dL (200); Creatinine, Serum 1.13 mg/dL (0.55-1.02); EST Glomerular Filtration Rate 51 mL/min (>60); Est Glom Filt Rate - Afr Amer 61 mL/min (>60); Estimated Creatinine Clearance 42.28 ml/min; Globulin 4.2 g/dL (2.2-4.2); Glucose 87 mg/dL (74-106); High Density Lipoprotein 69 mg/dL; Potassium 3.9 mmol/L (3.5-5.1); Protein, Total 6.8 g/dL (6.4-8.2); Sodium Level 138 mmol/L (136-145); Triglycerides 100 mg/dL; Very Low Density Lipoprotein 20 mg/dL (5-40)
[2020-06-16] MEDS: Flecainide 150 MG Tablet PO ×2 (10:13→21:15)
[2020-06-16] MEDS: Famotidine 20 MG Tablet 40 MG PO (10:13)
[2020-06-16] MEDS: Enoxaparin 40 MG/0.4 ML Syringe SC (10:13)
[2020-06-16] MEDS: guaiFENesin 1,200 MG Tablet 1200 MG PO ×2 (10:13→21:15)
[2020-06-16] MEDS: Venlafaxine XR 150 MG Capsule PO (10:13)
[2020-06-16 10:33] LABS: Vitamin B12 448 pg/mL (211-911)
--- NOTE | 2020-06-16 11:25 | NURSING ---
wound photo: right 2nd toe
[2020-06-16 11:31] LABS: Erythrocyte Sedimentation Rate 30 mm/hr (0-30)
--- NOTE | 2020-06-16 12:01 | CASEMGMT ---
RN STEFANI assessment: Face to Face with patient for initial transition planning/care coordination assessment. RN STEFANI introduced self and role at [facility], pt voices understanding and consents to assessment at this time. Pt is sitting up in bed in no distress at this time. Pt is A/Ox4 at this time and answers most questions appropriately at this time. Care providers, pharmacy, and demographics verified at this time. Presentation: Pt c/o BLE edema for a month or so Admitting dx: CHF exac, RLE infection PCP: Júnior Specialists: DAVIN Vance Preferred Pharmacy: [facility] Insurance: [employer] Prescription Benefit: [employer] Living Will/HPOA: Pt states is unsure whether she has LW/HPOA and declines AD info at this time. LNOK: Samantha Merida, daughter Living Arrangements: Pt states lives with daughter(w/c bound) and granddaughter in mobile home with a ramp in and states no concerns at home at this time. Pt states that she also stays in the basement of her home on same property at times as upstairs has not been finished since her . Pt states her 10years ago. Pt states 'we all help each other', referring to herself/daughter/granddaughter. Transportation: Pt states daughter drives and states no transportation concerns at this time. DME/HHC: Pt states has the following DME: cane, walker, w/c, and 4liters continuous home oxygen thru [employer]. Pt states no need for any further DME at this time but does have concerns about 'hauling around' the portable/carry tanks from [employer]. Advised pt/daughter that those are the lightest tanks but that this RN CM would check with [employer] to see if there are any other options. Call to [employer] at this time and order for 4 liters continuous is confirmed at this time and per Petra, pt has not gotten new portable tanks in about a year. Pt states has had [facility]HC in the past and has been to [facility]. Pt declined HHC/SNF when here last visit and APS referral was made by [facility] at that time. Pt states no concerns with going home at time of discharge. Pt states is retired. Pt states quit smoking 15 years ago and drink 'very little' ETOH. Pt states no further concerns/needs at this time. CM to follow for increased home oxygen need, PT/OT evals, and any further discharge planning/needs. Advised pt to ask for CM if any further questions/concerns/needs arise, voices understanding. Pt Goal: Home Plan: TBD, pending PT/OT evals, surgical intervention. SStvannessa HASTINGS CM
--- NOTE | 2020-06-16 12:56 | CON.PCM_ITS ---
Reason for Consult Date of Consultation: 06/16/20 Reason for Consultation: Right 2nd toe ulcer and associated infection History of Present Illness: The patient is a 69 year old female with multiple comorbidities including but not limited to CKD, CHF, HTN, morbid obesity, admitted with right 2nd toe ulceration and infection. She relates she thinks she might have stubbed her toe, or it rubbed in her shoe and a wound formed. She relates it has been present for at least a month or two. She now has swelling and redness to the toe extending to the forefoot. She relates there has been pus at times. She relates it is painful. She denies diabetes. Her daughter is with her sitting at bedside. They relate she injured the toe many years ago and now a hammer toe. No other pedal complaints at this time. Past Medical History Past Medical History (Chronic Problems): Chronic Problems (Last Updated 02/28/20 @ 07:[address] Santosh Nobles MD) CHF exacerbation (Chronic) Debility (Chronic) Vitamin D deficiency (Chronic) Restless leg syndrome (Chronic) COPD (chronic obstructive pulmonary disease) (Chronic) Cardiomyopathy, dilated (Chronic) ESPERANZA (obstructive sleep apnea) (Chronic) Chronic respiratory failure with hypoxia (Chronic) Anxiety (Chronic) Depression (Chronic) Osteoarthritis (Chronic) Pulmonary nodules (Chronic) Left ventricular hypertrophy (Chronic) Back pain (Chronic) Chronic systolic heart failure (Chronic) GERD (gastroesophageal reflux disease) (Chronic) Non-sustained ventricular tachycardia (Chronic) Hypertension (Chronic) 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 Santosh Nobles MD) Cardiomyopathy, dilated (Chronic) I42.0 Chronic combined systolic and diastolic CHF (congestive heart failure) (Acute) I50.42 Non-sustained ventricular tachycardia (Chronic) I47.2 Hypertension (Chronic) I10 Paroxysmal atrial fibrillation (Chronic) I48.0 Asthma (Chronic) J45.909 Chronic back pain M54.9, G89.29 Chronic bronchitis J42 GERD (gastroesophageal reflux disease) K21.9 Kidney disease, chronic, stage III (GFR 30-59 ml/min) N18.3 blood clots Allergies doxycycline Allergy (Severe, Verified 06/15/20 19:58) ulcerations of lips and mouth gabapentin Adverse Reaction (Severe, Verified 06/15/20 19:58) GI upset, Vomiting ciprofloxacin [From Cipro] Adverse Reaction (Intermediate, Verified 06/15/20 19:58) Other messes with her heart medicine Home Medications: Ambulatory Orders Medication Instructions Recorded Albuterol Inhaler [Ventolin Hfa] 1 puff INHALATION Q4H PRN PRN 08/08/13 Fluticasone 0.05% [Flonase Nasal 1 spray NASAL DAILY 08/08/13 Mimbres] flecainide 150 mg tablet 150 mg PO BID 08/16/17 Venlafaxine HCl [Venlafaxine HCl 75 mg PO QHS 01/28/18 ER] Metoprolol Tartrate [Lopressor 25 mg PO BID 02/01/18 (beta katerine)] Acetaminophen [Tylenol] 1,000 mg PO Q8 05/13/19 Venlafaxine HCl [Venlafaxine HCl 150 mg PO DAILY 05/13/19 ER] Famotidine [Pepcid] 40 mg PO DAILY #30 tab 05/28/19 Nystatin Powder [Mycostatin Powder] 1 applic TOPICAL 0600,2200 bottle 05/28/19 Polyethylene Glycol 3350 [Miralax] 17 gm PO DAILY PRN PRN 02/28/20 Diclofenac Sodium [Voltaren] 1 - 2 gm TOPICAL TID PRN 04/02/20 Morphine Sulfate 15 mg PO BID 04/02/20 Guaifenesin [Mucinex] 1,200 mg PO BID #14 tab.er.12h 04/06/20 Oxycodone HCl/Acetaminophen 1 tab PO Q8H 06/15/20 [Percocet 5/325] Surgical History: Surgical History (Last Reviewed 02/28/20 @ 04:[address] William Cabrera MD) H/O cardiac radiofrequency ablation Onset Date: ~09/03/13 Z98.890 H/O hysterectomy with oophorectomy H/O tubal ligation Z98.51 History of knee surgery Z98.890 Surgical History: hysterectomy, - - tubal ligation, oophorectomy, knee surgery, status post cardiac radiofrequency ablation, cardiac catheterization, Left hip ORIF intramedullary nail. Psychiatric History: Anxiety, Depression, - - Non-compliance. 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 William Cabrera MD) Mother Heart disease Arthritis blood clots Hypertension Father arthrits Cancer Brother Cancer Aunt Breast cancer Depression Ovarian cancer Grandmother CVA (cerebral vascular accident) Aunt Diabetes History Items: Heart Disease, Hypertension, - - Blood clot Paternal Family History: Family History (Last Reviewed 02/28/20 @ 04:[address] William Cabrera MD) Mother Heart disease Arthritis blood clots Hypertension Father arthrits Cancer Brother Cancer Aunt Breast cancer Depression Ovarian cancer Grandmother CVA (cerebral vascular accident) Aunt Diabetes History Items: Cancer - Lung cancer Review of Systems Constitutional: Denies: Chills, Fever Gastrointestinal: Denies: Nausea, Vomiting Skin: Reports: Wounds Patient Problems: Active and Suspected Problems (Last Updated 02/28/20 @ 07:[address] Santosh Nobles MD) Right foot infection (Acute) - Physical Exam Vitals/I&O's: Vital Signs Temp Pulse Resp BP Pulse Ox 98.3 F 79 18 101/38 L 95 06/16/20 10:04 06/16/20 10:04 06/16/20 10:04 06/16/20 10:04 06/16/20 10:04 Oxygen Flow Rate (L/min) 4 Oxygen Delivery Method Nasal Cannula Weight: 109.2 kg Body Mass Index (BMI) 40.6 Intake and Output for Last 24 Hours 06/14/20 06/15/20 06/16/20 23:59 23:59 23:59 Intake Total 50 / 50 1305 / 1305 Output Total 2525 / 2525 Balance 50 / -750 -1220 / -1220 General: Alert, Oriented x3, Cooperative, No apparent distress Extremities: Capillary Refill Less than 3 Seconds, No Calf Tenderness, Peripheral Pulses Normal, - - There is ulceration to the dorsal right 2nd toe at PIPJ, fibrotic base and hard base c/w bone; there is contracture of the 2nd toe as well, there is cellulitis and edema to the 2nd toe and extends to the forefoot; there is no maloder, no visible abscess, no crepitus, no crepitus, no streaking present, there is POP to the PIPJ of the right 2nd toe. There are no other open ulcerations to foot or ankle bilateral, no other areas of cellulitis to the foot or ankle bilateral. Sensation intact to light touch bilateral foot. There is no other POP or pain on ROM to the rest of the foot/ankle bilateral. Toenails are thickened and dystrophic 1-5 bilateral. There is contracture of left 2nd toe. Psych/Mental Status: Normal Affect, Appropriate, Alert and oriented to time, place, person, mood and affect Microbiology Past 72 Hours 06/16/20 00:01 Skin - Toe Gram Stain - Final Laboratory Results 06/15/20 20:50: WBC 8.6, RBC 3.96 L, Hgb 11.7 L, Hct 39.6, MCV 100.0 H, MCH 29.5, MCHC 29.5 L, RDW Std Deviation 50.8 H, RDW Coeff of Ankit 13.8, Plt Count 420, MPV 9.6, Immature Gran % (Auto) 0.500, Neut % (Auto) 72.6 H, Lymph % (Auto) 13.9 L, [place] % (Auto) 10.2 H, Eos % (Auto) 2.1, Baso % (Auto) 0.7, Absolute Neuts (auto) 6.3, Absolute Lymphs (auto) 1.20, Nucleated RBC % 0 06/15/20 20:50: Sodium 140, Potassium 3.9, Chloride 105, Carbon Dioxide 30.0, Anion Gap 5, BUN 24 H, Creatinine 1.18 H, Estim Creat Clear Calc 38.86, Est GFR (MDRD) Af Amer 58 L, Est GFR (MDRD) Non-Af 48 L, BUN/Creatinine Ratio 20.3 H, Glucose 105, Calcium 9.1 06/15/20 20:50: Lactic Acid 1.1 06/15/20 20:50: B-Natriuretic Peptide 1670.5 H 06/15/20 20:50: Vitamin B12 448 06/15/20 20:50: Magnesium 2.0, Iron 28 L, TIBC 293, Iron Saturation 9.6 L, Ferritin 40, Folate 17.00, TSH 1.40, Free T4 1.20 06/15/20 23:50: Troponin I < 0.015 06/16/20 00:01: S.aureus Protein A PCR POSITIVE H, MRSA (PCR) Negative 06/16/20 02:15: Troponin I < 0.015 06/16/20 05:32: WBC 11.7 H, RBC 4.95, Hgb 14.2, Hct 46.6, MCV 94.1 D, MCH 28.7, MCHC 30.5 L, RDW Std Deviation 50.8 H, RDW Coeff of Ankit 14.9 H, Plt Count 253, MPV 10.1, Immature Gran % (Auto) 0.300, Neut % (Auto) 71.2 H, Lymph % (Auto) 16. 4 L, [place] % (Auto) 10.2 H, Eos % (Auto) 1.3, Baso % (Auto) 0.6, Absolute Neuts (auto) 8.4 H, Absolute Lymphs (auto) 1.92, Nucleated RBC % 0 06/16/20 05:32: Sodium Cancelled, Potassium Cancelled, Chloride Cancelled, Carbon Dioxide Cancelled, Anion Gap Cancelled, BUN Cancelled, Creatinine Cancelled, Estim Creat Clear Calc Cancelled, Est GFR (MDRD) Af Amer Cancelled, Est GFR (MDRD) Non-Af Cancelled, BUN/Creatinine Ratio Cancelled, Glucose Cancelled, Calcium Cancelled, Total Bilirubin Cancelled, AST Cancelled, ALT Cancelled, Alkaline Phosphatase Cancelled, Troponin I Cancelled, Total Protein Cancelled, Albumin Cancelled, Globulin Cancelled, Albumin/Globulin Ratio Cancelled, Triglycerides Cancelled, Cholesterol Cancelled, LDL Cholesterol Cancelled, VLDL Cholesterol Cancelled, HDL Cholesterol Cancelled 06/16/20 05:32: ESR 30 06/16/20 06:45: Sodium 138, Potassium 3.9, Chloride 102, Carbon Dioxide 31.0, Anion Gap 5, BUN 21 H, Creatinine 1.13 H, Estim Creat Clear Calc 42.28, Est GFR (MDRD) Af Amer 61, Est GFR (MDRD) Non-Af 51 L, BUN/Creatinine Ratio 18.6, Glucose 87, Calcium 8.9, Total Bilirubin 0.50, AST 20, ALT 16, Alkaline Phosphatase 98, Troponin I < 0.015, Total Protein 6.8, Albumin 2.6 L, Globulin 4.2, Albumin/Globulin Ratio 0.6 L, Triglycerides 100, Cholesterol 156, LDL Cholesterol 67, VLDL Cholesterol 20, HDL Cholesterol 69 06/16/20 06:45: C-React Prot Ext Range 44.30 H Current Medications Acetaminophen (Tylenol) 1,000 mg PO Q8 [facility] Last Admin: 06/16/20 06:17 Dose: 1,000 mg Documented by: Al Hydroxide/Mg Hydroxide (Mylanta Ii) 30 ml PO Q6H PRN PRN PRN Reason: Gastric Burning Albuterol Sulfate (Ventolin Aerosols) 2.5 mg INHALATION Q2H PRN PRN PRN Reason: Dyspnea, wheezing Enoxaparin Sodium (Lovenox) 40 mg SC DAILY [facility] Last Admin: 06/16/20 10:13 Dose: 40 mg Documented by: Famotidine (Pepcid) 40 mg PO DAILY [facility] Last Admin: 06/16/20 10:13 Dose: 40 mg Documented by: Flecainide Acetate (Tambocor) 150 mg PO BID [facility] Last Admin: 06/16/20 10:13 Dose: 150 mg Documented by: Fluticasone Propionate (Flonase Nasal Mimbres) 1 spray NASAL DAILY [facility] Last Admin: 06/16/20 10:13 Dose: Not Given Documented by: Furosemide (Lasix) 40 mg IV Q8 [facility] Last Admin: 06/16/20 06:18 Dose: 40 mg Documented by: Guaifenesin (Mucinex) 1,200 mg PO BID [facility] Last Admin: 06/16/20 10:13 Dose: 1,200 mg Documented by: Guaifenesin (Robitussin) 20 ml PO Q4H PRN PRN PRN Reason: COUGH Hydromorphone HCl (Dilaudid Inj) 1 mg IV Q4H PRN PRN PRN Reason: Pain Score 6-10 Last Admin: 06/16/20 01:28 Dose: 1 mg Documented by: Piperacillin Sod/Tazobactam (Sod 3.375 gm/ Sodium Chloride) 50 mls @ 12.5 mls/hr IV Q8 [facility] Last Infusion: 06/16/20 10:17 Dose: Infused Documented by: Vancomycin IV Pharmacy to Dose (1 ea/ Sodium Chloride) 500 mls @ 250 mls/hr IV X1 PRN; Protocol PRN Reason: Rx to Dose Sodium Chloride () 250 mls @ 15 mls/hr IV .[id number] PRN PRN Reason: Saline Flush Last Admin: 06/16/20 11:48 Dose: 15 mls/hr Documented by: Sodium Chloride () 250 mls @ 15 mls/hr IV .[id number] PRN PRN Reason: Additional IVPB Infusion Vancomycin HCl 1,250 mg/ (Sodium Chloride) 275 mls @ 167 mls/hr IV Q12H [facility] Last Admin: 06/16/20 11:47 Dose: 167 mls/hr Documented by: Magnesium Hydroxide (Milk Of Magnesia) 30 ml PO DAILY PRN PRN PRN Reason: Constipation Melatonin (Melatonin) 3 mg PO QHS PRN PRN PRN Reason: INSOMNIA Metoprolol Tartrate (Lopressor (Beta Katerine)) 25 mg PO BID [facility] Last Admin: 06/16/20 10:25 Dose: Not Given Documented by: Morphine Sulfate (Ms Contin) 15 mg PO BID [facility] Last Admin: 06/16/20 10:25 Dose: Not Given Documented by: Nitroglycerin (Nitrostat) 0.4 mg SUBLINGUAL Q5M PRN PRN Reason: CARDIAC/CHEST PAIN Nystatin (Mycostatin Powder) 1 applic TOPICAL 0600,2200 [facility]; Protocol Last Admin: 06/16/20 06:17 Dose: 1 appful Documented by: Ondansetron HCl (Zofran) 4 mg IV Q8H PRN PRN PRN Reason: NAUSEA/VOMITING Oxycodone HCl (Oxyir) 5 mg PO Q8H PRN PRN Reason: Pain Score 1-10 Polyethylene Glycol (Miralax) 17 gm PO DAILY PRN PRN PRN Reason: Constipation Prochlorperazine Edisylate (Compazine Iv) 5 mg IV Q4H PRN PRN PRN Reason: Breakthrough Nausea/Vomiting Psyllium Hydrophilic Mucilloid (Metamucil) 1 packet PO DAILY PRN PRN PRN Reason: Constipation Senna/Docusate Sodium (Senokot-S, Yamilex-Colace) 2 tablet PO BID PRN PRN PRN Reason: Constipation Sodium Chloride () 10 - 40 ml IV UD PRN PRN Reason: SALINE FLUSH Last Admin: 06/16/20 06:20 Dose: 20 ml Documented by: Throat Lozenges (Cepacol Sore Throat Lozenge) 1 lozenge MUCOUS MEM Q2H PRN PRN PRN Reason: SORE THROAT Venlafaxine HCl (Effexor Xr) 150 mg PO DAILY [facility] Last Admin: 06/16/20 10:13 Dose: 150 mg Documented by: Venlafaxine HCl (Effexor) 75 mg PO QHS [facility] Assessment/Plan All Active Problems (Last Updated 02/28/20 @ 07:[address] Santosh Nobles MD) Generalized weakness (Acute) Dyspnea (Acute) Patient's noncompliance with other medical treatment and regimen (Acute) Hypoxemia (Acute) COPD exacerbation (Acute) Right foot infection (Acute) Cellulitis of right lower extremity (Acute) Sepsis (Acute) Chronic combined systolic and diastolic CHF (congestive heart failure) (Acute) Ulceration right dorsal 2nd toe down to bone Osteomyelitis right 2nd toe Cellulitis right forefoot Hammer toe, right Multiple comorbidities Reviewed diagnostic data. A culture has been obtained and is pending, MRSA DNA PCR is negative. Patient is on IV antibiotics at this time. Reviewed right foot xrays, no clear osteomyelitis on xrays, MRI was ordered for further evaluation. We discussed debridement of the ulceration/toe, reviewed rationale of this with her in detail, would like to evaluate MRI first for pre operative planning. Patient did have LEAS in February which showed no arterial occlusive disease. Clinically there is no evidence of ischemia to the foot or ankle. Podiatry will continue to follow closely, thank you for consultation.
--- NOTE | 2020-06-16 13:31 | PCM.PROGNOTE ---
<LuisChyna PROJECT MANAGEMENT ANALYST - Last Filed: 06/16/20 13:50> Patient Problems: Active and Suspected Problems (Last Updated 02/28/20 @ 07:[address] Santosh Nobles MD) Right foot infection (Acute) Subjective: Patient seen and examined. Complains of right second toe pain. Denies fever, chills. Reports cough which she states has been ongoing. Denies significant shortness of breath. - Physical Exam Vitals/I&O's: Vital Signs Temp Pulse Resp BP Pulse Ox 98.0 F 76 18 97/41 L 96 06/16/20 13:05 06/16/20 13:05 06/16/20 13:05 06/16/20 13:05 06/16/20 13:05 Oxygen Flow Rate (L/min) 3 Oxygen Delivery Method Nasal Cannula Weight: 240 lb 11.916 oz Body Mass Index (BMI) 40.6 Intake and Output for Last 24 Hours 06/14/20 06/15/20 06/16/20 23:59 23:59 23:59 Intake Total 50 / 50 1305 / 1305 Output Total 2525 / 2525 Balance 50 / -750 -1220 / -1220 General: Alert, Oriented x3, Cooperative HEENT: Atraumatic, PERRLA, EOMI, Normocephalic Neck: Supple, No JVD, Negative Carotid Bruits Lungs: Clear to auscultation, Diminished Cardiovascular: Regular rate, No murmurs Abdomen: Bowel Sounds Present, Soft, Non Tender, Non-Distended, Obese Extremities: No clubbing, No cyanosis, Capillary Refill Less than 3 Seconds, Edema - +2 bilateral lower extremities Skin: - - Bilateral lower extremity venous stasis skin changes. Right second toe anterior ulceration. Surrounding erythema. Musculoskeletal: No Tenderness to Palpation of Joints or Extremities Neurological: Cranial nerves II-XII grossly intact, Neuro grossly intact Psych/Mental Status: Normal Affect, Appropriate Microbiology Past 72 Hours 06/16/20 00:01 Skin - Toe Gram Stain - Final Laboratory Results 06/15/20 20:50: WBC 8.6, RBC 3.96 L, Hgb 11.7 L, Hct 39.6, MCV 100.0 H, MCH 29.5, MCHC 29.5 L, RDW Std Deviation 50.8 H, RDW Coeff of Ankit 13.8, Plt Count 420, MPV 9.6, Immature Gran % (Auto) 0.500, Neut % (Auto) 72.6 H, Lymph % (Auto) 13.9 L, [place] % (Auto) 10.2 H, Eos % (Auto) 2.1, Baso % (Auto) 0.7, Absolute Neuts (auto) 6.3, Absolute Lymphs (auto) 1.20, Nucleated RBC % 0 06/15/20 20:50: Sodium 140, Potassium 3.9, Chloride 105, Carbon Dioxide 30.0, Anion Gap 5, BUN 24 H, Creatinine 1.18 H, Estim Creat Clear Calc 38.86, Est GFR (MDRD) Af Amer 58 L, Est GFR (MDRD) Non-Af 48 L, BUN/Creatinine Ratio 20.3 H, Glucose 105, Calcium 9.1 06/15/20 20:50: Lactic Acid 1.1 06/15/20 20:50: B-Natriuretic Peptide 1670.5 H 06/15/20 20:50: Vitamin B12 448 06/15/20 20:50: Magnesium 2.0, Iron 28 L, TIBC 293, Iron Saturation 9.6 L, Ferritin 40, Folate 17.00, TSH 1.40, Free T4 1.20 06/15/20 23:50: Troponin I < 0.015 06/16/20 00:01: S.aureus Protein A PCR POSITIVE H, MRSA (PCR) Negative 06/16/20 02:15: Troponin I < 0.015 06/16/20 05:32: WBC 11.7 H, RBC 4.95, Hgb 14.2, Hct 46.6, MCV 94.1 D, MCH 28.7, MCHC 30.5 L, RDW Std Deviation 50.8 H, RDW Coeff of Ankit 14.9 H, Plt Count 253, MPV 10.1, Immature Gran % (Auto) 0.300, Neut % (Auto) 71.2 H, Lymph % (Auto) 16.4 L, [place] % (Auto) 10.2 H, Eos % (Auto) 1.3, Baso % (Auto) 0.6, Absolute Neuts (auto) 8.4 H, Absolute Lymphs (auto) 1.92, Nucleated RBC % 0 06/16/20 05:32: Sodium Cancelled, Potassium Cancelled, Chloride Cancelled, Carbon Dioxide Cancelled, Anion Gap Cancelled, BUN Cancelled, Creatinine Cancelled, Estim Creat Clear Calc Cancelled, Est GFR (MDRD) Af Amer Cancelled, Est GFR (MDRD) Non-Af Cancelled, BUN/Creatinine Ratio Cancelled, Glucose Cancelled, Calcium Cancelled, Total Bilirubin Cancelled, AST Cancelled, ALT Cancelled, Alkaline Phosphatase Cancelled, Troponin I Cancelled, Total Protein Cancelled, Albumin Cancelled, Globulin Cancelled, Albumin/Globulin Ratio Cancelled, Triglycerides Cancelled, Cholesterol Cancelled, LDL Cholesterol Cancelled, VLDL Cholesterol Cancelled, HDL Cholesterol Cancelled 06/16/20 05:32: ESR 30 06/16/20 06:45: Sodium 138, Potassium 3.9, Chloride 102, Carbon Dioxide 31.0, Anion Gap 5, BUN 21 H, Creatinine 1.13 H, Estim Creat Clear Calc 42.28, Est GFR (MDRD) Af Amer 61, Est GFR (MDRD) Non-Af 51 L, BUN/Creatinine Ratio 18.6, Glucose 87, Calcium 8.9, Total Bilirubin 0.50, AST 20, ALT 16, Alkaline Phosphatase 98, Troponin I < 0.015, Total Protein 6.8, Albumin 2.6 L, Globulin 4.2, Albumin/Globulin Ratio 0.6 L, Triglycerides 100, Cholesterol 156, LDL Cholesterol 67, VLDL Cholesterol 20, HDL Cholesterol 69 06/16/20 06:45: C-React Prot Ext Range 44.30 H Current Medications Acetaminophen (Tylenol) 1,000 mg PO Q8 [facility] Last Admin: 06/16/20 06:17 Dose: 1,000 mg Documented by: Al Hydroxide/Mg Hydroxide (Mylanta Ii) 30 ml PO Q6H PRN PRN PRN Reason: Gastric Burning Albuterol Sulfate (Ventolin Aerosols) 2.5 mg INHALATION Q2H PRN PRN PRN Reason: Dyspnea, wheezing Enoxaparin Sodium (Lovenox) 40 mg SC DAILY [facility] Last Admin: 06/16/20 10:13 Dose: 40 mg Documented by: Famotidine (Pepcid) 40 mg PO DAILY [facility] Last Admin: 06/16/20 10:13 Dose: 40 mg Documented by: Flecainide Acetate (Tambocor) 150 mg PO BID [facility] Last Admin: 06/16/20 10:13 Dose: 150 mg Documented by: Fluticasone Propionate (Flonase Nasal [place]) 1 spray NASAL DAILY [facility] Last Admin: 06/16/20 10:13 Dose: Not Given Documented by: Furosemide (Lasix) 40 mg IV Q8 [facility] Last Admin: 06/16/20 06:18 Dose: 40 mg Documented by: Guaifenesin (Mucinex) 1,200 mg PO BID [facility] Last Admin: 06/16/20 10:13 Dose: 1,200 mg Documented by: Guaifenesin (Robitussin) 20 ml PO Q4H PRN PRN PRN Reason: COUGH Hydromorphone HCl (Dilaudid Inj) 1 mg IV Q4H PRN PRN PRN Reason: Pain Score 6-10 Last Admin: 06/16/20 01:28 Dose: 1 mg Documented by: Piperacillin Sod/Tazobactam (Sod 3.375 gm/ Sodium Chloride) 50 mls @ 12.5 mls/hr IV Q8 [facility] Last Infusion: 06/16/20 10:17 Dose: Infused Documented by: Vancomycin IV Pharmacy to Dose (1 ea/ Sodium Chloride) 500 mls @ 250 mls/hr IV X1 PRN; Protocol PRN Reason: Rx to Dose Sodium Chloride () 250 mls @ 15 mls/hr IV .[id number] PRN PRN Reason: Saline Flush Last Admin: 06/16/20 11:48 Dose: 15 mls/hr Documented by: Sodium Chloride () 250 mls @ 15 mls/hr IV .[id number] PRN PRN Reason: Additional IVPB Infusion Vancomycin HCl 1,250 mg/ (Sodium Chloride) 275 mls @ 167 mls/hr IV Q12H [facility] Last Admin: 06/16/20 11:47 Dose: 167 mls/hr Documented by: Magnesium Hydroxide (Milk Of Magnesia) 30 ml PO DAILY PRN PRN PRN Reason: Constipation Melatonin (Melatonin) 3 mg PO QHS PRN PRN PRN Reason: INSOMNIA Metoprolol Tartrate (Lopressor (Beta Katerine)) 25 mg PO BID [facility] Last Admin: 06/16/20 10:25 Dose: Not Given Documented by: Morphine Sulfate (Ms Contin) 15 mg PO BID [facility] Last Admin: 06/16/20 10:25 Dose: Not Given Documented by: Nitroglycerin (Nitrostat) 0.4 mg SUBLINGUAL Q5M PRN PRN Reason: CARDIAC/CHEST PAIN Nystatin (Mycostatin Powder) 1 applic TOPICAL 0600,2200 [facility]; Protocol Last Admin: 06/16/20 06:17 Dose: 1 appful Documented by: Ondansetron HCl (Zofran) 4 mg IV Q8H PRN PRN PRN Reason: NAUSEA/VOMITING Oxycodone HCl (Oxyir) 5 mg PO Q8H PRN PRN Reason: Pain Score 1-10 Polyethylene Glycol (Miralax) 17 gm PO DAILY PRN PRN PRN Reason: Constipation Prochlorperazine Edisylate (Compazine Iv) 5 mg IV Q4H PRN PRN PRN Reason: Breakthrough Nausea/Vomiting Psyllium Hydrophilic Mucilloid (Metamucil) 1 packet PO DAILY PRN PRN PRN Reason: Constipation Senna/Docusate Sodium (Senokot-S, Yamilex-Colace) 2 tablet PO BID PRN PRN PRN Reason: Constipation Sodium Chloride () 10 - 40 ml IV UD PRN PRN Reason: SALINE FLUSH Last Admin: 06/16/20 06:20 Dose: 20 ml Documented by: Throat Lozenges (Cepacol Sore Throat Lozenge) 1 lozenge MUCOUS MEM Q2H PRN PRN PRN Reason: SORE THROAT Venlafaxine HCl (Effexor Xr) 150 mg PO DAILY [facility] Last Admin: 06/16/20 10:13 Dose: 150 mg Documented by: Venlafaxine HCl (Effexor) 75 mg PO QHS [facility] Medical Necessity - Tobacco Use Smoking Status: Former smoker Tobacco Use: Non-smoker Assessment/Plan All Active Problems (Last Updated 02/28/20 @ 07:[address] Santosh Nobles MD) Generalized weakness (Acute) Dyspnea (Acute) Patient's noncompliance with other medical treatment and regimen (Acute) Hypoxemia (Acute) COPD exacerbation (Acute) Right foot infection (Acute) Cellulitis of right lower extremity (Acute) Sepsis (Acute) Chronic combined systolic and diastolic CHF (congestive heart failure) (Acute) 1. Acute on chronic combined systolic and diastolic CHF, dilated cardiomyopathy with chronic hypoxic respiratory failure-BNP 1670. Patient with increased lower extremity swelling and weight gain. IV Lasix. Strict I&O. Daily weight. Chon wraps bilateral lower extremities. Echocardiogram 05/14/2019 demonstrates an EF of 55%, stage I diastolic dysfunction, mild to moderate tricuspid valve insufficiency. Repeat echo ordered. Diuretic regimen previously held as outpatient due to worsening renal function. Renal function currently at baseline. 2. Right dorsal second toe ulceration with right second toe osteomyelitis and right lower extremity cellulitis, chronic venous stasis bilateral lower extremities-podiatry following. Foot x-ray normal. MRI ordered. Plan for debridement by podiatry tomorrow. Culture pending. Continue IV Zosyn and IV vancomycin. Wound RN consult. 3. Chronic kidney disease stage III-at baseline. Trend BMP. 4. Chronic anemia-stable, trend CBC. 5. Paroxysmal atrial fibrillation-continue flecainide, metoprolol. 6. Hypertension-stable, continue metoprolol. 7. Hyperlipidemia-continue statin. 8. 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-encouraged diet and lifestyle modifications. 9. Chronic pain syndrome/chronic back pain-PT/OT. As needed pain regimen. 10. Anxiety/depression-continue venlafaxine. 11. GERD-continue famotidine. 12. History of VTE-no longer on anticoagulation. 13. Debility/failure to thrive-frequent admissions however patient DVT prophylaxis-Lovenox This patient was seen by JUDY Hughes under the supervision of Dr. Kapoor. <Tata Kapoor - Last Filed: 06/16/20 16:01> Subjective: Pt states that her breathing is pretty much back to baseline. Wears O2 at home but goes without sometimes as she has a tank and it is too hard to carry around. Is adamant about not going to a SNF at d/c. States that her R foot has been a problem for awhile but has just gotten worse and is very sore. - Physical Exam Vitals/I&O's: Vital Signs Temp Pulse Resp BP Pulse Ox 98.0 F 80 18 97/41 L 96 06/16/20 13:05 06/16/20 14:51 06/16/20 13:05 06/16/20 13:05 06/16/20 13:39 Oxygen Flow Rate (L/min) 3 Oxygen Delivery Method Nasal Cannula Weight: 109.2 kg Body Mass Index (BMI) 40.6 Intake and Output for Last 24 Hours 06/14/20 06/15/20 06/16/20 23:59 23:59 23:59 Intake Total 50 / 50 1580 / 1580 Output Total 2525 / 2525 Balance 50 / -750 -945 / -945 General: Alert, Oriented x3, Cooperative, No apparent distress, Well developed, Well nourished, - - WF who appears older than stated age, lying in bed, overall appears comfortable HEENT: Atraumatic, EOMI, Normocephalic Oral: Moist Mucosa, No Gingival or Mucosal Lesions/ Ulcerations Neck: Supple, Trachea Midline, - - short thick neck Lungs: Clear to auscultation, No rhonchi, No wheeze, No rales, Diminished - diffusely Cardiovascular: Regular rate, Regular Rhythm, Normal S1, Normal S2, No murmurs, No Ectopic Activity, No rub noted, No Gallop Abdomen: Bowel Sounds Present, Soft, Non Tender, Non-Distended, Obese, No hernias noted Extremities: No clubbing, No cyanosis, Capillary Refill Less than 3 Seconds, Edema Skin: - - Bilateral lower extremity venous stasis skin changes. Right second toe anterior ulceration. Surrounding erythema to midfoot on dorsum, tender to touch, no drainage Musculoskeletal: Arthritic Changes Neurological: Cranial nerves II-XII grossly intact, Neuro grossly intact Psych/Mental Status: Normal Affect, Appropriate, Alert and oriented to time, place, person, mood and affect Microbiology Past 72 Hours 06/16/20 00:01 Skin - Toe Gram Stain - Final Laboratory Results 06/15/20 20:50: WBC 8.6, RBC 3.96 L, Hgb 11.7 L, Hct 39.6, MCV 100.0 H, MCH 29.5, MCHC 29.5 L, RDW Std Deviation 50.8 H, RDW Coeff of Ankit 13.8, Plt Count 420, MPV 9.6, Immature Gran % (Auto) 0.500, Neut % (Auto) 72.6 H, Lymph % (Auto) 13.9 L, [place] % (Auto) 10.2 H, Eos % (Auto) 2.1, Baso % (Auto) 0.7, Absolute Neuts (auto) 6.3, Absolute Lymphs (auto) 1.20, Nucleated RBC % 0 06/15/20 20:50: Sodium 140, Potassium 3.9, Chloride 105, Carbon Dioxide 30.0, Anion Gap 5, BUN 24 H, Creatinine 1.18 H, Estim Creat Clear Calc 38.86, Est GFR (MDRD) Af Amer 58 L, Est GFR (MDRD) Non-Af 48 L, BUN/Creatinine Ratio 20.3 H, Glucose 105, Calcium 9.1 06/15/20 20:50: Lactic Acid 1.1 06/15/20 20:50: B-Natriuretic Peptide 1670.5 H 06/15/20 20:50: Vitamin B12 448 06/15/20 20:50: Magnesium 2.0, Iron 28 L, TIBC 293, Iron Saturation 9.6 L, Ferritin 40, Folate 17.00, TSH 1.40, Free T4 1.20 06/15/20 23:50: Troponin I < 0.015 06/16/20 00:01: S.aureus Protein A PCR POSITIVE H, MRSA (PCR) Negative 06/16/20 02:15: Troponin I < 0.015 06/16/20 05:32: WBC 11.7 H, RBC 4.95, Hgb 14.2, Hct 46.6, MCV 94.1 D, MCH 28.7, MCHC 30.5 L, RDW Std Deviation 50.8 H, RDW Coeff of Ankit 14.9 H, Plt Count 253, MPV 10.1, Immature Gran % (Auto) 0.300, Neut % (Auto) 71.2 H, Lymph % (Auto) 16.4 L, [place] % (Auto) 10.2 H, Eos % (Auto) 1.3, Baso % (Auto) 0.6, Absolute Neuts (auto) 8.4 H, Absolute Lymphs (auto) 1.92, Nucleated RBC % 0 06/16/20 05:32: Sodium Cancelled, Potassium Cancelled, Chloride Cancelled, Carbon Dioxide Cancelled, Anion Gap Cancelled, BUN Cancelled, Creatinine Cancelled, Estim Creat Clear Calc Cancelled, Est GFR (MDRD) Af Amer Cancelled, Est GFR (MDRD) Non-Af Cancelled, BUN/Creatinine Ratio Cancelled, Glucose Cancelled, Calcium Cancelled, Total Bilirubin Cancelled, AST Cancelled, ALT Cancelled, Alkaline Phosphatase Cancelled, Troponin I Cancelled, Total Protein Cancelled, Albumin Cancelled, Globulin Cancelled, Albumin/Globulin Ratio Cancelled, Triglycerides Cancelled, Cholesterol Cancelled, LDL Cholesterol Cancelled, VLDL Cholesterol Cancelled, HDL Cholesterol Cancelled 06/16/20 05:32: ESR 30 06/16/20 06:45: Sodium 138, Potassium 3.9, Chloride 102, Carbon Dioxide 31.0, Anion Gap 5, BUN 21 H, Creatinine 1.13 H, Estim Creat Clear Calc 42.28, Est GFR (MDRD) Af Amer 61, Est GFR (MDRD) Non-Af 51 L, BUN/Creatinine Ratio 18.6, Glucose 87, Calcium 8.9, Total Bilirubin 0.50, AST 20, ALT 16, Alkaline Phosphatase 98, Troponin I < 0.015, Total Protein 6.8, Albumin 2.6 L, Globulin 4.2, Albumin/Globulin Ratio 0.6 L, Triglycerides 100, Cholesterol 156, LDL Cholesterol 67, VLDL Cholesterol 20, HDL Cholesterol 69 06/16/20 06:45: C-React Prot Ext Range 44.30 H Current Medications Acetaminophen (Tylenol) 1,000 mg PO Q8 [facility] Last Admin: 06/16/20 13:53 Dose: 1,000 mg Documented by: Al Hydroxide/Mg Hydroxide (Mylanta Ii) 30 ml PO Q6H PRN PRN PRN Reason: Gastric Burning Albuterol Sulfate (Ventolin Aerosols) 2.5 mg INHALATION Q2H PRN PRN PRN Reason: Dyspnea, wheezing Enoxaparin Sodium (Lovenox) 40 mg SC DAILY [facility] Last Admin: 06/16/20 10:13 Dose: 40 mg Documented by: Famotidine (Pepcid) 40 mg PO DAILY [facility] Last Admin: 06/16/20 10:13 Dose: 40 mg Documented by: Flecainide Acetate (Tambocor) 150 mg PO BID [facility] Last Admin: 06/16/20 10:13 Dose: 150 mg Documented by: Fluticasone Propionate (Flonase Nasal [place]) 1 spray NASAL DAILY [facility] Last Admin: 06/16/20 10:13 Dose: Not Given Documented by: Furosemide (Lasix) 40 mg IV BID [facility] Guaifenesin (Mucinex) 1,200 mg PO BID [facility] Last Admin: 06/16/20 10:13 Dose: 1,200 mg Documented by: Guaifenesin (Robitussin) 20 ml PO Q4H PRN PRN PRN Reason: COUGH Hydromorphone HCl (Dilaudid Inj) 1 mg IV Q4H PRN PRN PRN Reason: Pain Score 6-10 Last Admin: 06/16/20 01:28 Dose: 1 mg Documented by: Piperacillin Sod/Tazobactam (Sod 3.375 gm/ Sodium Chloride) 50 mls @ 12.5 mls/hr IV Q8 [facility] Last Admin: 06/16/20 13:53 Dose: 12.5 mls/hr Documented by: Vancomycin IV Pharmacy to Dose (1 ea/ Sodium Chloride) 500 mls @ 250 mls/hr IV X1 PRN; Protocol PRN Reason: Rx to Dose Sodium Chloride () 250 mls @ 15 mls/hr IV .[id number] PRN PRN Reason: Saline Flush Last Admin: 06/16/20 11:48 Dose: 15 mls/hr Documented by: Sodium Chloride () 250 mls @ 15 mls/hr IV .[id number] PRN PRN Reason: Additional IVPB Infusion Vancomycin HCl 1,250 mg/ (Sodium Chloride) 275 mls @ 167 mls/hr IV Q12H [facility] Last Infusion: 06/16/20 13:26 Dose: Infused Documented by: Magnesium Hydroxide (Milk Of Magnesia) 30 ml PO DAILY PRN PRN PRN Reason: Constipation Melatonin (Melatonin) 3 mg PO QHS PRN PRN PRN Reason: INSOMNIA Metoprolol Tartrate (Lopressor (Beta Katerine)) 25 mg PO BID [facility] Last Admin: 06/16/20 10:25 Dose: Not Given Documented by: Morphine Sulfate (Ms Contin) 15 mg PO BID [facility] Last Admin: 06/16/20 10:25 Dose: Not Given Documented by: Nitroglycerin (Nitrostat) 0.4 mg SUBLINGUAL Q5M PRN PRN Reason: CARDIAC/CHEST PAIN Nutritional Formula ([place] - [place] Flavor) [facility] Nystatin (Mycostatin Powder) 1 applic TOPICAL 0600,2200 [facility]; Protocol Last Admin: 06/16/20 06:17 Dose: 1 appful Documented by: Ondansetron HCl (Zofran) 4 mg IV Q8H PRN PRN PRN Reason: NAUSEA/VOMITING Oxycodone HCl (Oxyir) 5 mg PO Q8H PRN PRN Reason: Pain Score 1-10 Polyethylene Glycol (Miralax) 17 gm PO DAILY PRN PRN PRN Reason: Constipation Prochlorperazine Edisylate (Compazine Iv) 5 mg IV Q4H PRN PRN PRN Reason: Breakthrough Nausea/Vomiting Psyllium Hydrophilic Mucilloid (Metamucil) 1 packet PO DAILY PRN PRN PRN Reason: Constipation Senna/Docusate Sodium (Senokot-S, Yamilex-Colace) 2 tablet PO BID PRN PRN PRN Reason: Constipation Sodium Chloride () 10 - 40 ml IV UD PRN PRN Reason: SALINE FLUSH Last Admin: 06/16/20 06:20 Dose: 20 ml Documented by: Throat Lozenges (Cepacol Sore Throat Lozenge) 1 lozenge MUCOUS MEM Q2H PRN PRN PRN Reason: SORE THROAT Venlafaxine HCl (Effexor Xr) 150 mg PO DAILY [facility] Last Admin: 06/16/20 10:13 Dose: 150 mg Documented by: Venlafaxine HCl (Effexor) 75 mg PO QHS [facility] Assessment/Plan I agree with the above and the following reflects my own independent history and physical exam ASSESSMENT Acute on Chronic Hypoxic Respiratory Failure-Multifactorial (decompensated HFrEF, COPD, ESPERANZA, OHS) R LE Stasis Wound with Ulceration of 2nd digit Leukocytosis CKD stage 3 Chronic Anemia PAF HPL HTN GERD H/O DVT-remote Chronic Pain 2/2 LBP Depression/Anxiety MO PLAN -respiratory status has improved and close to baseline again -continue IV Lasix for now and will likely change to PO tomorrow -R LE wound is concerning -MRSA PCR + -continue Vanc and Zosyn for now -wound cx neg -blood cx pending -may need ID involvement depending on wound and ? OM -check CRP and ESR -XR was unimpressive -suspect will need MRI -consult Podiatry for input -continue home meds otherwise -labs are relatively stable -hold parameters for BB -oxy prn, not scheduled Inpatient E&M: [id number] [facility] Hosp L3
--- NOTE | 2020-06-16 17:19 | NURSING ---
Addendum entered by Anita Murillo 06/16/20 17:21: Patient disoriented A/Ox2 and is very forgetful and keeps repeating self Original Note: Patient extremely agitated, yelling at nursing staff. Swinging at RN and throwing objects in room. Deescalation x4 nurses and OVERLAY PLASTICIAN remains at bedside. Food and a diet coke provided per patient request. Patent especially angry at daughter who abandoned her
[2020-06-16] MEDS: LORazepam 2 MG/ML Syringe 1 MG IV (17:25)
--- NOTE | 2020-06-16 17:44 | NURSING ---
Attempted to contact daughter x2, she did not answer her phone. Message left
--- NOTE | 2020-06-16 18:38 | NURSING ---
entered room. found patient naked with both IVs, oxygen and purewick removed. Patient pinching RN while trying to apply Tele monitor and patient immediately ripping it off. iron handler notified of need for sitter.
[2020-06-16] MEDS: morphine SR 15 MG Tablet PO (21:06)
[2020-06-16] MEDS: Venlafaxine HCl 75 MG Tablet PO (21:14)
[2020-06-16] MEDS: Metoprolol Tartrate 25 MG Tablet PO (21:15)
[2020-06-17] VITALS (20 sets, daily range): BP systolic 74–122; BP diastolic 45–106; PULSE 56–80; RESP 16–20; TEMP 36.4–37.2; O2SAT 94–100; BMI 39.4; BMI 40.6
[2020-06-17] MEDS: oxyCODONE 5 MG Tablet PO (00:34)
[2020-06-17] MEDS: Nystatin Powder 15gm Bottle 1 APPLIC TOPICAL ×2 (05:03→21:28)
[2020-06-17] MEDS: Acetaminophen 500 MG Tablet 1000 MG PO ×3 (05:31→21:27)
--- NOTE | 2020-06-17 05:55 | EKG12_ITS ---
Test Reason : AM EKG Blood Pressure : / mmHG Vent. Rate : 062 BPM Atrial Rate : 062 BPM P-R Int : 206 ms QRS Dur : 134 ms QT Int : 490 ms P-R-T Axes : 059 021 167 degrees QTc Int : 497 ms Normal sinus rhythm Non-specific intra-ventricular conduction block T wave abnormality, consider anterolateral ischemia Abnormal ECG Confirmed by ROCAEL LAMBERT, BOBBI ([id number]), video tape editor KAY SERRANO ([id number]) on 06/19/2020 10:21:40 AM Referred By: DR BATEMAN Confirmed By:BOBBI COTE MD
[2020-06-17 06:54] LABS: Absolute Lymphocyte Count 1.34 X10^3/uL (0.83-4.51); Absolute Neutrophil Count 4.7 X10^3/uL (2.0-7.7); Basophil# 0.05 X10^3/uL; Basophil% 0.7 % (0-1); Eosinophil# 0.24 X10^3/uL; Eosinophils% 3.4 % (0-5); Hematocrit 39.1 % (37-47); Hemoglobin 11.6 g/dL (12.0-15.0); Lymphocyte # 1.34 X10^3/ul (4.0); Lymphocyte % 18.9 % (19-41); Mean Corp Hgb Conc 29.7 g/dL (32-36); Mean Platelet Vol. 9.8 fl (6.2-12.0); Monocyte# 0.71 X10^3/uL; NRBC Flagged by Analyzer 0 % (0-5); Neutrophil # 4.73 X10^3/uL (2.7-7.7); Neutrophil % 66.6 % (47-70); Platelet Count 401 K/mm3 (150-450); RBC Distribution Width CV 13.9 % (11.6-14.6); RBC Distribution Width SD 51.3 fl (35.1-43.9); Red Blood Count 3.87 M/mm3 (4.2-5.4); White Blood Count 7.1 K/mm3 (4.4-11.0)
[2020-06-17 07:04] LABS: Partial Thromboplast Time 28.2 Seconds (24.1-36.2)
[2020-06-17 07:30] LABS: AST(SGOT) 17 U/L (15-37); Alanine Aminotransfer ALT/SGPT 13 U/L (13-56); Albumin, Serum 2.6 g/dL (3.2-5.0); Alkaline Phosphatase 92 U/L (45-117); Anion Gap 3 (5-15); BUN 20 mg/dL (7-18); BUN/Creat Ratio 15.3 RATIO (10-20); Bilirubin, Direct 0.13 mg/dL (0.00-0.30); Calcium,Total 8.9 mg/dL (8.5-10.1); Chloride 104 mmol/L (98-107); Creatinine, Serum 1.31 mg/dL (0.55-1.02); EST Glomerular Filtration Rate 43 mL/min (>60); Est Glom Filt Rate - Afr Amer 52 mL/min (>60); Estimated Creatinine Clearance 36.47 ml/min; Globulin 4.3 g/dL (2.2-4.2); Glucose 79 mg/dL (74-106); Potassium 3.4 mmol/L (3.5-5.1); Protein, Total 6.9 g/dL (6.4-8.2); Sodium Level 142 mmol/L (136-145)
[2020-06-17 07:33] LABS: International Normalized Ratio 1.1; Prothrombin Time (Protime)PT. 13.9 SECONDS (11.7-14.9)
--- NOTE | 2020-06-17 08:30 | MRI_ITS ---
STUDY: MRI RIGHT FOREFOOT WITHOUT CONTRAST REASON FOR EXAM: Female, 69 years old. RIGHT 2nd toe infection, redness and swelling TECHNIQUE: Standardized fat and water weighted pulse sequences were obtained in all 3 orthogonal planes. COMPARISON: X-ray dated 06/15/2020. FINDINGS: Early cortical destruction/bone marrow replacement at the second proximal phalanx head (sagittal image 14 series 3). Bone marrow edema/contusion at the second proximal phalanx and second middle phalanx base. Small volume second proximal interphalangeal joint effusion. Moderate navicular cava osteoarthrosis. Moderate tarsometatarsal joint arthrosis. Mild metatarsophalangeal joint arthrosis. Mild/moderate first interphalangeal joint arthrosis. Mild joint space narrowing at the first through fifth digits. 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 No acute fracture line. No acute dislocation. Lisfranc ligament intact. Diffuse muscle atrophy. Flexor and extensor tendons intact. Dorsal soft tissue swelling with dorsal ulceration of the second digit. No solid, cystic or lipomatous lesions. MRI/Lower Ext/No Jt/w/o IMPRESSION: Acute early osteomyelitis at the second proximal phalanx head Bone marrow edema/contusion at the second proximal pharynx head and second middle phalange space Small volume second PIP joint fusion (potential septic arthritis) Soft tissue swelling/cellulitis with dorsal ulceration Diffuse muscle atrophy Electronically Signed: Jacob Hollins DO at 9:31 EDT Tel , Service support ,
--- NOTE | 2020-06-17 09:39 | PCA ---
Daughter states she will make appointments for patient.
[2020-06-17] MEDS: Potassium Chloride 10mEq/100mL 10 MEQ/100 ML IV.SOLN. 100 MEQ IV BOLUS ×2 (10:13→11:24)
[2020-06-17] MEDS: Famotidine 20 MG Tablet 40 MG PO (10:14)
[2020-06-17] MEDS: Metoprolol Tartrate 25 MG Tablet PO (10:14)
[2020-06-17] MEDS: Flecainide 150 MG Tablet PO ×2 (10:18→21:27)
--- NOTE | 2020-06-17 12:00 | RAD_ITS ---
STUDY: X-RAY - RIGHT FOOT CLINICAL: Female, 69 years old. DEBRIDEMENT 2ND GREAT TOE TECHNIQUE: 2 C-arm views of the foot. 2 second fluoroscopy time. COMPARISON: None. FINDINGS: These images show resection of the head of the second proximal phalanx. Correlate with procedure note. Electronically Signed: Raj Jenkins MD at 15:45 EDT , Service support , RAD/Foot min 3 Views
--- NOTE | 2020-06-17 12:30 | BON_PTH ---
PATIENT: MIR OAKLEY LOC: [facility] U#:[id number] AGE/SX: 69/F [facility] RE06/15/[address]: Dr. Tata Kapoor DO : 1950 BED: 1 DIS: 06/20/2020 SPEC #: [id number] RECD: 06/17/20 14:56 STATUS: ALIYAH RE #: [id number] ROSAURA: 06/17/20 12:[address]: Zaheer Montilla DEPT: SURGICAL PATHOLOGY RECD BY: Annabel Yates ENTERED: 06/18/20 07:02 SP TYPE: Bone OTHR DR: MD Dr. Shamika Carter, DPM DO Dr. Phu Morillo MD Dr. Tai Chi Kwok, MD Tissues: A - Bone of foot, NOS B - Bone of foot, NOS Procedures: Decalcification bone/plaque Surgery Specimen Level III Surgery Specimen Level IV HEADER OPERATION: Right second toe debridement PRE-OP DIAGNOSIS: Ulceration right dorsal second toe down to bone; osteomyelitis right second toe; cellulitis right forefoot; hammertoe right TISSUE SUBMITTED: A - Proximal phalanx right second toe, B - Clearance fragment proximal phalanx right second toe MICROSCOPIC DIAGNOSIS A. Proximal phalanx right second toe, amputation: Focal ulceration, acute and chronic inflammation and granulation tissue reaction. Pieces of bone with acute osteomyelitis. B. Clearance fragment proximal phalanx right second toe, biopsy: A piece of bone with acute osteomyelitis. SJ:pebbles 06/23/20 MICROSCOPIC DESCRIPTION Slides are reviewed. GROSS DESCRIPTION A - Received in fixative is one container labeled with the patient's name and designated proximal phalanx right second toe. The specimen consists of a piece of skin measuring 1 x 0.6 x 0.2 cm. The skin surface shows focal indurated area measuring 0.5 cm in greatest dimension. The skin piece is bisected and appears to be fragmented. Also present in the container are two pieces of bone measuring in aggregate 1 x 0.6 x 0.5 cm. The entire specimen is submitted in two cassettes as follows: 1 - skin piece, 2 - bone after decalcification. B - Received in fixative is one container labeled with the patient's name and designated clearance fragment proximal phalanx right second toe. The specimen consists of a piece of bone measuring 0.5 x 0.3 x 0.2 cm. The entire specimen is submitted in one cassette after decalcification. / RADHA:pebbles 06/18/20 TC:2 CPT: 03898, 80714, 56594 x2
--- NOTE | 2020-06-17 12:40 | PCM.PROGNOTE ---
<LuisChyna BUILDING APPRAISER - Last Filed: 06/17/20 12:51> Patient Problems: Active and Suspected Problems (Last Updated 02/28/20 @ 07:[address] Santosh Nobles MD) Right foot infection (Acute) Subjective: Patient seen and examined. Nursing reports confusion and agitation overnight requiring sitter. This morning patient remains somewhat confused however conversing appropriately. Plan to undergo surgery later this morning. - Physical Exam Vitals/I&O's: Vital Signs Temp Pulse Resp BP Pulse Ox 98.1 F 67 18 120/45 L 95 06/17/20 11:00 06/17/20 11:00 06/17/20 11:00 06/17/20 11:00 06/17/20 11:00 Oxygen Flow Rate (L/min) 4 Oxygen Delivery Method Nasal Cannula Weight: 237 lb 3.478 oz Body Mass Index (BMI) 39.4 Intake and Output for Last 24 Hours 06/15/20 06/16/20 06/17/20 23:59 23:59 23:59 Intake Total 50 / 50 2530.75 / 2530.75 535 / 535 Output Total 3425 / 3425 1100 / 1100 Balance 50 / -750 -894.25 / -894.25 -565 / -565 General: Alert, Oriented x3, Cooperative HEENT: Atraumatic, PERRLA, EOMI, Normocephalic Neck: Supple, No JVD, Negative Carotid Bruits Lungs: Clear to auscultation, Diminished Cardiovascular: Regular rate, No murmurs Abdomen: Bowel Sounds Present, Soft, Non Tender, Non-Distended, Obese Extremities: No clubbing, No cyanosis, Edema - +2 bilateral lower extremities Skin: - - Bilateral lower extremity venous stasis skin changes. Right second toe anterior ulceration. Surrounding erythema. Musculoskeletal: No Tenderness to Palpation of Joints or Extremities Neurological: Cranial nerves II-XII grossly intact, Neuro grossly intact Psych/Mental Status: Normal Affect, Appropriate Microbiology Past 72 Hours 06/16/20 00:01 Skin - Toe Gram Stain - Final 06/16/20 00:01 Skin - Toe Wound Culture - Preliminary Staphylococcus aureus Laboratory Results 06/17/20 05:40: COVID-19 ([facility]) Not Detected 06/17/20 05:50: WBC 7.1, RBC 3.87 L, Hgb 11.6 L, Hct 39.1, MCV 101.0 H D, MCH 30.0, MCHC 29.7 L, RDW Std Deviation 51.3 H, RDW Coeff of Ankit 13.9, Plt Count 401, MPV 9.8, Immature Gran % (Auto) 0.400, Neut % (Auto) 66.6, Lymph % (Auto) 18.9 L, [place] % (Auto) 10.0, Eos % (Auto) 3.4, Baso % (Auto) 0.7, Absolute Neuts (auto) 4.7, Absolute Lymphs (auto) 1.34, Nucleated RBC % 0 06/17/20 05:50: Sodium 142, Potassium 3.4 L, Chloride 104, Carbon Dioxide 35.0 H, Anion Gap 3 L, BUN 20 H, Creatinine 1.31 H, Estim Creat Clear Calc 36.47, Est GFR (MDRD) Af Amer 52 L, Est GFR (MDRD) Non-Af 43 L, BUN/Creatinine Ratio 15.3, Glucose 79, Calcium 8.9, Total Bilirubin 0.50, Direct Bilirubin 0.13, AST 17, ALT 13, Alkaline Phosphatase 92, Total Protein 6.9, Albumin 2.6 L, Globulin 4.3 H 06/17/20 05:50: PT 13.9, INR 1.1, APTT 28.2 Current Medications Acetaminophen (Tylenol) 1,000 mg PO Q8 [facility] Last Admin: 06/17/20 05:31 Dose: 1,000 mg Documented by: Al Hydroxide/Mg Hydroxide (Mylanta Ii) 30 ml PO Q6H PRN PRN PRN Reason: Gastric Burning Albuterol Sulfate (Ventolin Aerosols) 2.5 mg INHALATION Q2H PRN PRN PRN Reason: Dyspnea, wheezing Enoxaparin Sodium (Lovenox) 40 mg SC DAILY [facility] Last Admin: 06/17/20 07:59 Dose: Not Given Documented by: Famotidine (Pepcid) 40 mg PO DAILY [facility] Last Admin: 06/17/20 10:14 Dose: 40 mg Documented by: Flecainide Acetate (Tambocor) 150 mg PO BID [facility] Last Admin: 06/17/20 10:18 Dose: 150 mg Documented by: Fluticasone Propionate (Flonase Nasal [place]) 1 spray NASAL DAILY [facility] Last Admin: 06/16/20 10:13 Dose: Not Given Documented by: Furosemide (Lasix) 40 mg IV BID [facility] Last Admin: 06/16/20 21:47 Dose: 40 mg Documented by: Guaifenesin (Mucinex) 1,200 mg PO BID [facility] Last Admin: 06/17/20 07:59 Dose: Not Given Documented by: Guaifenesin (Robitussin) 20 ml PO Q4H PRN PRN PRN Reason: COUGH Hydromorphone HCl (Dilaudid Inj) 1 mg IV Q4H PRN PRN PRN Reason: Pain Score 6-10 Last Admin: 06/16/20 01:28 Dose: 1 mg Documented by: Piperacillin Sod/Tazobactam (Sod 3.375 gm/ Sodium Chloride) 50 mls @ 12.5 mls/hr IV Q8 [facility] Last Infusion: 06/17/20 09:13 Dose: Infused Documented by: Vancomycin IV Pharmacy to Dose (1 ea/ Sodium Chloride) 500 mls @ 250 mls/hr IV X1 PRN; Protocol PRN Reason: Rx to Dose Sodium Chloride () 250 mls @ 15 mls/hr IV .[id number] PRN PRN Reason: Saline Flush Last Infusion: 06/17/20 02:33 Dose: 15 mls/hr Documented by: Sodium Chloride () 250 mls @ 15 mls/hr IV .[id number] PRN PRN Reason: Additional IVPB Infusion Vancomycin HCl 1,250 mg/ (Sodium Chloride) 275 mls @ 167 mls/hr IV Q12H [facility] Last Infusion: 06/17/20 02:33 Dose: Infused Documented by: Magnesium Hydroxide (Milk Of Magnesia) 30 ml PO DAILY PRN PRN PRN Reason: Constipation Melatonin (Melatonin) 3 mg PO QHS PRN PRN PRN Reason: INSOMNIA Metoprolol Tartrate (Lopressor (Beta Katerine)) 25 mg PO BID [facility] Last Admin: 06/17/20 10:14 Dose: 25 mg Documented by: Morphine Sulfate (Ms Contin) 15 mg PO BID [facility] Last Admin: 06/16/20 21:06 Dose: 15 mg Documented by: Nitroglycerin (Nitrostat) 0.4 mg SUBLINGUAL Q5M PRN PRN Reason: CARDIAC/CHEST PAIN Nutritional Formula (Rosendo - Ferguson Flavor) [facility] Last Admin: 06/17/20 08:00 Dose: Not Given Documented by: Nystatin (Mycostatin Powder) 1 applic TOPICAL 0600,2200 [facility]; Protocol Last Admin: 06/17/20 05:03 Dose: 1 applicatio Documented by: Ondansetron HCl (Zofran) 4 mg IV Q8H PRN PRN PRN Reason: NAUSEA/VOMITING Oxycodone HCl (Oxyir) 5 mg PO Q8H PRN PRN Reason: Pain Score 1-10 Last Admin: 06/17/20 00:34 Dose: 5 mg Documented by: Polyethylene Glycol (Miralax) 17 gm PO DAILY PRN PRN PRN Reason: Constipation Prochlorperazine Edisylate (Compazine Iv) 5 mg IV Q4H PRN PRN PRN Reason: Breakthrough Nausea/Vomiting Psyllium Hydrophilic Mucilloid (Metamucil) 1 packet PO DAILY PRN PRN PRN Reason: Constipation Senna/Docusate Sodium (Senokot-S, Yamilex-Colace) 2 tablet PO BID PRN PRN PRN Reason: Constipation Sodium Chloride () 10 - 40 ml IV UD PRN PRN Reason: SALINE FLUSH Last Admin: 06/16/20 22:10 Dose: 10 ml Documented by: Throat Lozenges (Cepacol Sore Throat Lozenge) 1 lozenge MUCOUS MEM Q2H PRN PRN PRN Reason: SORE THROAT Venlafaxine HCl (Effexor Xr) 150 mg PO DAILY [facility] Last Admin: 06/16/20 10:13 Dose: 150 mg Documented by: Venlafaxine HCl (Effexor) 75 mg PO QHS [facility] Last Admin: 06/16/20 21:14 Dose: 75 mg Documented by: Medical Necessity - Tobacco Use Smoking Status: Former smoker Tobacco Use: Non-smoker Assessment/Plan All Active Problems (Last Updated 02/28/20 @ 07:[address] Santosh Nobles MD) Generalized weakness (Acute) Dyspnea (Acute) Patient's noncompliance with other medical treatment and regimen (Acute) Hypoxemia (Acute) COPD exacerbation (Acute) Right foot infection (Acute) Cellulitis of right lower extremity (Acute) Sepsis (Acute) Chronic combined systolic and diastolic CHF (congestive heart failure) (Acute) 1. Acute on chronic combined systolic and diastolic CHF, dilated cardiomyopathy with chronic hypoxic respiratory failure-BNP 1670. Patient with increased lower extremity swelling and weight gain. Strict I&O. Daily weight. Chon wraps bilateral lower extremities. Echocardiogram 05/14/2019 demonstrates an EF of 55%, stage I diastolic dysfunction, mild to moderate tricuspid valve insufficiency. Repeat echo demonstrates an EF of 50%. Diuretic regimen previously held as outpatient due to worsening renal function. Renal function currently at baseline. Transition from IV Lasix to p.o. Lasix 40 mg twice daily. Patient on baseline home O2 requirements, 4 L. 2. Right dorsal second toe ulceration with right second toe osteomyelitis and right lower extremity cellulitis, chronic venous stasis bilateral lower extremities-podiatry following. Foot x-ray normal. MRI demonstrates acute early osteomyelitis at the second proximal phalanx head, bone marrow edema/contusion of the second proximal pharynx head and second middle phalange space, potential septic arthritis at the second PIP joint fusion. Continue IV Zosyn and IV vancomycin. Wound RN consult. Plan for OR this afternoon. Wound cultures pulmonary growing staph. Will follow postop cultures as well. 3. Chronic kidney disease stage III-at baseline. Trend BMP. 4. Chronic anemia-stable, trend CBC. 5. Paroxysmal atrial fibrillation-continue flecainide, metoprolol. 6. Hypertension-stable, continue metoprolol. 7. Hyperlipidemia-continue statin. 8. 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-encouraged diet and lifestyle modifications. 9. Chronic pain syndrome/chronic back pain-PT/OT. As needed pain regimen. 10. Anxiety/depression-continue venlafaxine. 11. GERD-continue famotidine. 12. History of VTE-no longer on anticoagulation. 13. Debility/failure to thrive-frequent admissions however patient and daughter have refused placement in the past. Follow PT/OT. Case management/social work following. DVT prophylaxis-Lovenox This patient was seen by JUDY Hughes under the supervision of Dr. Kapoor. <Tata Kapoor - Last Filed: 06/17/20 15:12> Subjective: Confusion overnight with some agitation. Calmer this am but remains confused to orientation questions. Denies SOB beyond baseline chronic issues. - Physical Exam Vitals/I&O's: Vital Signs Temp Pulse Resp BP Pulse Ox 97.7 F L 59 L 18 98/67 99 06/17/20 14:34 06/17/20 14:34 06/17/20 14:34 06/17/20 14:34 06/17/20 14:34 Oxygen Flow Rate (L/min) 4 Oxygen Delivery Method Nasal Cannula Weight: 107.6 kg Body Mass Index (BMI) 39.4 Intake and Output for Last 24 Hours 06/15/20 06/16/20 06/17/20 23:59 23:59 23:59 Intake Total 50 / 50 2530.75 / 2530.75 535 / 535 Output Total 3425 / 3425 1100 / 1100 Balance 50 / -750 -894.25 / -894.25 -565 / -565 General: Alert, Cooperative, No apparent distress, Well developed, Well nourished, - - sleeping but awakens easily, disoriented to month/year and POTUS but knows what is going on with her medically regarding OR and foot Neck: Supple, Trachea Midline Lungs: Clear to auscultation, No rhonchi, No wheeze, Diminished - diffusely Cardiovascular: Regular rate, Regular Rhythm, Normal S1, Normal S2, No murmurs, No Ectopic Activity, No rub noted, No Gallop Abdomen: Bowel Sounds Present, Soft, Non Tender, Non-Distended, Obese, No hernias noted Extremities: No clubbing, No cyanosis, Edema - trace to 1+ bilateral lower extremities Skin: No rashes, Ulcer/ Wound, - - Bilateral lower extremity venous stasis skin changes. Right second toe anterior ulceration. Surrounding erythema but no extention of erythma Musculoskeletal: No Tenderness to Palpation of Joints or Extremities Neurological: Neuro grossly intact Psych/Mental Status: Normal Affect, - - no current agitation Microbiology Past 72 Hours 06/16/20 00:01 Skin - Toe Gram Stain - Final 06/16/20 00:01 Skin - Toe Wound Culture - Preliminary Staphylococcus aureus Laboratory Results 06/17/20 05:40: COVID-19 ([facility]) Not Detected 06/17/20 05:50: WBC 7.1, RBC 3.87 L, Hgb 11.6 L, Hct 39.1, MCV 101.0 H D, MCH 30.0, MCHC 29.7 L, RDW Std Deviation 51.3 H, RDW Coeff of Ankit 13.9, Plt Count 401, MPV 9.8, Immature Gran % (Auto) 0.400, Neut % (Auto) 66.6, Lymph % (Auto) 18.9 L, [place] % (Auto) 10.0, Eos % (Auto) 3.4, Baso % (Auto) 0.7, Absolute Neuts (auto) 4.7, Absolute Lymphs (auto) 1.34, Nucleated RBC % 0 06/17/20 05:50: Sodium 142, Potassium 3.4 L, Chloride 104, Carbon Dioxide 35.0 H, Anion Gap 3 L, BUN 20 H, Creatinine 1.31 H, Estim Creat Clear Calc 36.47, Est GFR (MDRD) Af Amer 52 L, Est GFR (MDRD) Non-Af 43 L, BUN/Creatinine Ratio 15.3, Glucose 79, Calcium 8.9, Total Bilirubin 0.50, Direct Bilirubin 0.13, AST 17, ALT 13, Alkaline Phosphatase 92, Total Protein 6.9, Albumin 2.6 L, Globulin 4.3 H 06/17/20 05:50: PT 13.9, INR 1.1, APTT 28.2 Current Medications Acetaminophen (Tylenol) 1,000 mg PO Q8 [facility] Last Admin: 06/17/20 05:31 Dose: 1,000 mg Documented by: Al Hydroxide/Mg Hydroxide (Mylanta Ii) 30 ml PO Q6H PRN PRN PRN Reason: Gastric Burning Albuterol Sulfate (Ventolin Aerosols) 2.5 mg INHALATION Q2H PRN PRN PRN Reason: Dyspnea, wheezing Enoxaparin Sodium (Lovenox) 40 mg SC DAILY [facility] Last Admin: 06/17/20 07:59 Dose: Not Given Documented by: Famotidine (Pepcid) 40 mg PO DAILY [facility] Last Admin: 06/17/20 10:14 Dose: 40 mg Documented by: Flecainide Acetate (Tambocor) 150 mg PO BID [facility] Last Admin: 06/17/20 10:18 Dose: 150 mg Documented by: Fluticasone Propionate (Flonase Nasal [place]) 1 spray NASAL DAILY [facility] Last Admin: 06/16/20 10:13 Dose: Not Given Documented by: Furosemide (Furosemide 40 Mg Tablet) 40 mg PO BID@1000,1800 [facility] Guaifenesin (Mucinex) 1,200 mg PO BID [facility] Last Admin: 06/17/20 07:59 Dose: Not Given Documented by: Guaifenesin (Robitussin) 20 ml PO Q4H PRN PRN PRN Reason: COUGH Hydromorphone HCl (Dilaudid Inj) 1 mg IV Q4H PRN PRN PRN Reason: Pain Score 6-10 Last Admin: 06/16/20 01:28 Dose: 1 mg Documented by: Piperacillin Sod/Tazobactam (Sod 3.375 gm/ Sodium Chloride) 50 mls @ 12.5 mls/hr IV Q8 [facility] Last Infusion: 06/17/20 09:13 Dose: Infused Documented by: Vancomycin IV Pharmacy to Dose (1 ea/ Sodium Chloride) 500 mls @ 250 mls/hr IV X1 PRN; Protocol PRN Reason: Rx to Dose Sodium Chloride () 250 mls @ 15 mls/hr IV .[id number] PRN PRN Reason: Saline Flush Last Infusion: 06/17/20 02:33 Dose: 15 mls/hr Documented by: Sodium Chloride () 250 mls @ 15 mls/hr IV .[id number] PRN PRN Reason: Additional IVPB Infusion Vancomycin HCl 1,250 mg/ (Sodium Chloride) 275 mls @ 167 mls/hr IV Q12H [facility] Last Infusion: 06/17/20 02:33 Dose: Infused Documented by: Magnesium Hydroxide (Milk Of Magnesia) 30 ml PO DAILY PRN PRN PRN Reason: Constipation Melatonin (Melatonin) 3 mg PO QHS PRN PRN PRN Reason: INSOMNIA Metoprolol Tartrate (Lopressor (Beta Katerine)) 25 mg PO BID [facility] Last Admin: 06/17/20 10:14 Dose: 25 mg Documented by: Morphine Sulfate (Ms Contin) 15 mg PO BID [facility] Last Admin: 06/16/20 21:06 Dose: 15 mg Documented by: Nitroglycerin (Nitrostat) 0.4 mg SUBLINGUAL Q5M PRN PRN Reason: CARDIAC/CHEST PAIN Nutritional Formula (Rosendo - [place] Flavor) [facility] Last Admin: 06/17/20 08:00 Dose: Not Given Documented by: Nystatin (Mycostatin Powder) 1 applic TOPICAL 0600,2200 [facility]; Protocol Last Admin: 06/17/20 05:03 Dose: 1 applicatio Documented by: Ondansetron HCl (Zofran) 4 mg IV Q8H PRN PRN PRN Reason: NAUSEA/VOMITING Oxycodone HCl (Oxyir) 5 mg PO Q8H PRN PRN Reason: Pain Score 1-10 Last Admin: 06/17/20 00:34 Dose: 5 mg Documented by: Polyethylene Glycol (Miralax) 17 gm PO DAILY PRN PRN PRN Reason: Constipation Prochlorperazine Edisylate (Compazine Iv) 5 mg IV Q4H PRN PRN PRN Reason: Breakthrough Nausea/Vomiting Psyllium Hydrophilic Mucilloid (Metamucil) 1 packet PO DAILY PRN PRN PRN Reason: Constipation Senna/Docusate Sodium (Senokot-S, Yamilex-Colace) 2 tablet PO BID PRN PRN PRN Reason: Constipation Sodium Chloride () 10 - 40 ml IV UD PRN PRN Reason: SALINE FLUSH Last Admin: 06/16/20 22:10 Dose: 10 ml Documented by: Throat Lozenges (Cepacol Sore Throat Lozenge) 1 lozenge MUCOUS MEM Q2H PRN PRN PRN Reason: SORE THROAT Venlafaxine HCl (Effexor Xr) 150 mg PO DAILY [facility] Last Admin: 06/16/20 10:13 Dose: 150 mg Documented by: Venlafaxine HCl (Effexor) 75 mg PO QHS [facility] Last Admin: 06/16/20 21:14 Dose: 75 mg Documented by: Assessment/Plan I agree with the above and the following reflects my own independent history and physical exam ASSESSMENT Acute on Chronic Hypoxic Respiratory Failure-Multifactorial (decompensated HFrEF, COPD, ESPERANZA, OHS) OM R 2nd digit Leukocytosis-resolved Metabolic Encephalopathy CKD stage 3 Chronic Anemia PAF HPL HTN GERD H/O DVT-remote Chronic Pain 2/2 LBP Depression/Anxiety MO PLAN -respiratory status has improved and now at baseline -switch to PO lasix BID -watch BMP--> slight sCr jump today -repeat ECHO stable EF at 50% suspect that this is primarily RV dysfunction -K replacement and recheck in am -OR today per podiatry as MRI did show OM -will have ID see as rx will depend on extent of surgery done -wound is growing MRSA all other cx pending -may need BIPAP after OR--> pt with known ESPERANZA but non-compliant at baseline -continue home meds -may need to consider something for encephalopathy if doesn't resolved--> suspect related to hospitalization and infection as pt seems to know what is going on with her but is having issues with orientation questions--> ? true baseline mentation Inpatient E&M: 38075 Subs Hosp L2
--- NOTE | 2020-06-17 13:40 | OP.PCM_ITS ---
Report of Operation Date of Procedure: 06/17/20 Pre-Operative Diagnosis: Hammer toe right 2nd toe. Osteomyelitis right 2nd toe. Ulceration down to bone right 2nd toe Post-Operative Diagnosis: Same Surgery/Procedure Performed:: Debridement of all nonviable, infected and unhealthy soft tissue and bone right 2nd toe lithograph press feeder: None Type of Anesthesia:: Local MAC Specimen's removed: 1. Head of proximal phalanx right 2nd toe sent to pathology and microbiology. 2. Clearance fragement of proximal phalanx right 2nd toe sent to pathology and microbiology Estimated Blood Loss (mL): 1mL Description of Procedure: Indications: This is a 69 year old female with osteomyelitis to the right 2nd toe head of proximal phalanx - clinically and via MRI. Discussed options with patient and her daughter in detail, and patient elected to proceed with debridement of bone and soft tissue right 2nd toe. We discussed this in great detail. Reviewed procedure as well as the rationale of the procedure. Reviewed possible benefits vs risks, goals, expectations and estimated healing time and recommended post op course. Patient expressed understanding and agreement and wanted to proceed forward with the procedure. The consent forms were reviewed with her and she freely signed them. All of her questions were answered. No guarantees were given nor implied. Operative Procedure: The patient was brought back to the operating room and was placed on the operating room table in the supine position. A timeout was performed and the patient was properly identified and the surgical plan was confirmed. A well padded pneumatic tourniquet was applied around the right ankle. The patient received MAC anesthesia per the anesthesia team. The skin was cleansed with 70% Isopropyl alcohol and a total of 5mL of 1% Lidocaine plain was given as a local nerve block around the 2nd toe, right. The right foot was scrubbed, prepped, and draped in the usual aseptic fashion. Patient was already on IV antibiotics. The right foot was exsanguinated using elevation and the right ankle pneumatic tourniquet was inflated to 250mmHg. Right 2nd toe debridement: Further attention was directed to the 2nd toe which had an ulceration dorsal aspect of the proximal interphalangeal joint, probe to head of the proximal phalanx, there was edema and erythema, there was some purulent drainage. Two semi elliptical converging skin incisions were made to the dorsal 2nd toe overlying the proximal interphalangeal joint. The skin within the incision was excised (excising the ulcer in the process) and sent to pathology. The extensor tendon not intact due to infection, it was debrided of all nonviable tissue at this level and sent to pathology. The head of the proximal phalanx was kelly, fragmented and soft consistent with osteomyelitis - all of which was debrided out and sent to pathology (with the skin and tendon as noted above) and microbiology for further evaluation. The area debrided measures 0.8cm x 0.5cm. A clearance fragment was obtained from the proximal phalanx shaft and sent to microbiology and pathology for further evaluation. This bone was noted to be hard, white and healthy appearing. The base of the middle phalanx was noted to be white, hard and did not appear infected. All remaining tissue was healthy and viable. The site was flushed out with copious amounts of normal saline solution. The skin was reapproximated using 3-0 Prolene. The toe was in rectus position. This was confirmed with intra op fluoroscopy. The pneumatic tourniquet was deflated at 23 minutes. There was immediate return of warmth and perfusion to the foot and all toes with CFT < 2 seconds to all toes. Pedal pulses intact. A dressing was applied which consisted of adaptic, 4x4 gauze, Kerlix and carey. Patient tolerated procedure well and anesthesia well with no complications. Patient was transported from the OR to recovery room with vital signs stable and in good condition. Post op ordered placed. Post op xrays obtained and reviewed, 3 views right foot. Podiatry will continue to follow as an inpatient. Grafts/Implants Used: None - Complications None
--- NOTE | 2020-06-17 13:40 | RAD_ITS ---
STUDY: X-RAY - RIGHT FOOT CLINICAL: Female, 69 years old. S/P 2ND TOE DEBRIDEMENT TECHNIQUE: 3 view(s) of the foot. COMPARISON: 06/15/2020. FINDINGS: Since prior study there has been resection of the head of the second proximal phalanx No other changes. Degenerative changes of the visualized subtalar, talonavicular, calcaneocuboid, tarsal and tarsometatarsal articulations. Normal metatarsi. Normal metatarsophalangeal joint of the great toe. Normal tibial and fibular sesamoid bones. Normal interphalangeal joint of the great toe. Normal phalanges of the great toe. Normal second through fifth metatarsophalangeal joints. Normal interphalangeal joints and phalanges of the lesser toes. There is non-specific soft tissue swelling of the foot. RAD/Foot min 3 Views IMPRESSION: Status post resection of the head of the second proximal phalanx and no other changes or abnormalities. Electronically Signed: Raj Jenkins MD at 15:43 EDT , Service support ,
[2020-06-17] MEDS: morphine SR 15 MG Tablet PO ×2 (15:30→21:27)
[2020-06-17] MEDS: Venlafaxine XR 150 MG Capsule PO (15:31)
[2020-06-17] MEDS: Fluticasone 0.05% 1 SPRAY NASAL.SRY NASAL (15:32)
[2020-06-17] MEDS: Furosemide 40 MG Tablet PO (17:08)
[2020-06-17] MEDS: guaiFENesin 1,200 MG Tablet 1200 MG PO (21:27)
[2020-06-17] MEDS: Venlafaxine HCl 75 MG Tablet PO (21:28)
[2020-06-17 23:37] LABS: Vancomycin, Trough Level 30.9 ug/mL (5.0-15.0)
[2020-06-18] VITALS (13 sets, daily range): BP systolic 102–130; BP diastolic 50–67; PULSE 63–90; RESP 16–18; TEMP 36.6–37.1; O2SAT 92–97; BMI 40.6
--- NOTE | 2020-06-18 00:32 | PCM.RX.CS ---
Consult Pharmacy has been consulted to manage selected antiobiotic: Vancomycin Type of Consult: Follow-up Labs: Sodium 142 mmol/L (136-145) 06/17/20 05:50 Potassium 3.4 mmol/L (3.5-5.1) L 06/17/20 05:50 Chloride 104 mmol/L (98-107) 06/17/20 05:50 Carbon Dioxide 35.0 mmol/L (21.0-32.0) H 06/17/20 05:50 Anion Gap 3 (5-15) L 06/17/20 05:50 BUN 20 mg/dL (7-18) H 06/17/20 05:50 Creatinine 1.31 mg/dL (0.55-1.02) H 06/17/20 05:50 Est GFR (MDRD) Af Amer 52 mL/min (>60) L 06/17/20 05:50 Est GFR (MDRD) Non-Af 43 mL/min (>60) L 06/17/20 05:50 BUN/Creatinine Ratio 15.3 RATIO (-) 06/17/20 05:50 Glucose 79 mg/dL (74-106) 06/17/20 05:50 Vancomycin Trough 30.9 ug/mL (5.0-15.0) H 06/17/20 22:56 Microbiology: Microbiology 06/16/20 00:01 Skin - Toe Gram Stain - Final 06/16/20 00:01 Skin - Toe Wound Culture - Preliminary Staphylococcus aureus Goal Trough: 15-20 mcg/mL Pharmacy Plan for Drug Dosing: Pharmacy Service will continue to monitor and adjust dosing as required. TROUGN 30.9 DRAWN 7.5 HOURS AFTER LAST DOSE (EVERY 12 HOURS ORDERED) REDRAW TROUGH BEFORE NEXT DOSE Follow-Up Labs: Trough Vancomycin Labs to be done on [date and time ordered]: 06/18 @ 1100
[2020-06-18] MEDS: 0.9% Saline Lock 10 ML Syringe IV ×2 (01:21→04:46)
[2020-06-18] MEDS: oxyCODONE 5 MG Tablet PO ×2 (03:14→11:55)
[2020-06-18] MEDS: HYDROmorphone 1 MG/ML Syringe IV ×2 (04:45→08:02)
[2020-06-18 06:07] LABS: Absolute Lymphocyte Count 1.45 X10^3/uL (0.83-4.51); Absolute Neutrophil Count 6.5 X10^3/uL (2.0-7.7); Basophil# 0.07 X10^3/uL; Basophil% 0.8 % (0-1); Eosinophil# 0.38 X10^3/uL; Eosinophils% 4.1 % (0-5); Hematocrit 38.5 % (37-47); Hemoglobin 11.5 g/dL (12.0-15.0); Lymphocyte # 1.45 X10^3/ul (4.0); Lymphocyte % 15.7 % (19-41); Mean Corp Hgb Conc 29.9 g/dL (32-36); Mean Corpuscular Hgb 30.3 pg (27.0-32.0); Mean Corpuscular Volume 101.3 fL (81-99); Mean Platelet Vol. 9.3 fl (6.2-12.0); Monocyte# 0.83 X10^3/uL; NRBC Flagged by Analyzer 0 % (0-5); Neutrophil # 6.47 X10^3/uL (2.7-7.7); Neutrophil % 70.1 % (47-70); Platelet Count 354 K/mm3 (150-450); RBC Distribution Width CV 13.8 % (11.6-14.6); RBC Distribution Width SD 51.4 fl (35.1-43.9); White Blood Count 9.2 K/mm3 (4.4-11.0)
[2020-06-18 06:42] LABS: Anion Gap 6 (5-15); BUN 26 mg/dL (7-18); BUN/Creat Ratio 21.3 RATIO (10-20); Calcium,Total 8.6 mg/dL (8.5-10.1); Chloride 103 mmol/L (98-107); Creatinine, Serum 1.22 mg/dL (0.55-1.02); EST Glomerular Filtration Rate 46 mL/min (>60); Est Glom Filt Rate - Afr Amer 56 mL/min (>60); Estimated Creatinine Clearance 39.16 ml/min; Glucose 127 mg/dL (74-106); Potassium 4.3 mmol/L (3.5-5.1); Sodium Level 137 mmol/L (136-145)
--- NOTE | 2020-06-18 07:28 | PCM.PROGNOTE ---
Patient Problems: Active and Suspected Problems (Last Updated 02/28/20 @ 07:[address] Santosh Nobles MD) Right foot infection (Acute) Subjective: Patient was seen this morning for follow up on right 2nd toe debridement. She relates she slept well. She relates there is some pain to the toe, no other complaints. She appeared to be resting comfortably in bed. - Physical Exam Vitals/I&O's: Vital Signs Temp Pulse Resp BP Pulse Ox 97.8 F 73 18 130/50 H 95 06/18/20 03:43 06/18/20 03:43 06/18/20 03:43 06/18/20 04:43 06/18/20 03:43 Oxygen Flow Rate (L/min) 3 Oxygen Delivery Method Nasal Cannula Weight: 107.6 kg Body Mass Index (BMI) 39.4 Intake and Output for Last 24 Hours 06/16/20 06/17/20 06/18/20 23:59 23:59 23:59 Intake Total 2530.75 / 2530.75 1311.75 / 1531.75 985 / 985 Output Total 3425 / 3425 1100 / 1700 1000 / 1000 Balance -894.25 / -894.25 211.75 / -168.25 -15 / -15 General: Alert, Oriented x3, Cooperative, No apparent distress Extremities: No cyanosis, Capillary Refill Less than 3 Seconds - there is some tenderness to the right 2nd toe c/w normal course, No Calf Tenderness, Peripheral Pulses Normal, - - s/p right 2nd toe debridement with sutures intact with skin well coapted, there is some residual erythema to the toe and forefoot but improved, no drainage, no visible abscess, no streaking, no necrosis, no fluctuance, no crepitus Psych/Mental Status: Appropriate, Alert and oriented to time, place, person, mood and affect Microbiology Past 72 Hours 06/16/20 00:01 Skin - Toe Gram Stain - Final 06/16/20 00:01 Skin - Toe Wound Culture - Preliminary Staphylococcus aureus Laboratory Results 06/17/20 05:40: COVID-19 ([facility] [place] [facility]) Not Detected 06/17/20 05:50: Sodium 142, Potassium 3.4 L, Chloride 104, Carbon Dioxide 35.0 H, Anion Gap 3 L, BUN 20 H, Creatinine 1.31 H, Estim Creat Clear Calc 36.47, Est GFR (MDRD) Af Amer 52 L, Est GFR (MDRD) Non-Af 43 L, BUN/Creatinine Ratio 15.3, Glucose 79, Calcium 8.9, Total Bilirubin 0.50, Direct Bilirubin 0.13, AST 17, ALT 13, Alkaline Phosphatase 92, Total Protein 6.9, Albumin 2.6 L, Globulin 4.3 H 06/17/20 05:50: PT 13.9, INR 1.1 06/17/20 22:56: Vancomycin Trough 30.9 H 06/18/20 05:54: WBC 9.2, RBC 3.80 L, Hgb 11.5 L, Hct 38.5, MCV 101.3 H, MCH 30.3, MCHC 29.9 L, RDW Std Deviation 51.4 H, RDW Coeff of Ankit 13.8, Plt Count 354, MPV 9.3, Immature Gran % (Auto) 0.300, Neut % (Auto) 70.1 H, Lymph % (Auto) 15.7 L, [place] % (Auto) 9.0, Eos % (Auto) 4.1, Baso % (Auto) 0.8, Absolute Neuts (auto) 6.5, Absolute Lymphs (auto) 1.45, Nucleated RBC % 0 06/18/20 05:54: Sodium 137, Potassium 4.3, Chloride 103, Carbon Dioxide 28.0, Anion Gap 6, BUN 26 H, Creatinine 1.22 H, Estim Creat Clear Calc 39.16, Est GFR (MDRD) Af Amer 56 L, Est GFR (MDRD) Non-Af 46 L, BUN/Creatinine Ratio 21.3 H, Glucose 127 H, Calcium 8.6 Current Medications Acetaminophen (Tylenol) 1,000 mg PO Q8 PENDING SALE TO [facility] Last Admin: 06/18/20 06:10 Dose: Not Given Documented by: Al Hydroxide/Mg Hydroxide (Mylanta Ii) 30 ml PO Q6H PRN PRN PRN Reason: Gastric Burning Albuterol Sulfate (Ventolin Aerosols) 2.5 mg INHALATION Q2H PRN PRN PRN Reason: Dyspnea, wheezing Enoxaparin Sodium (Lovenox) 40 mg SC DAILY PENDING SALE TO [facility] Last Admin: 06/17/20 07:59 Dose: Not Given Documented by: Famotidine (Pepcid) 40 mg PO DAILY PENDING SALE TO [facility] Last Admin: 06/17/20 10:14 Dose: 40 mg Documented by: Flecainide Acetate (Tambocor) 150 mg PO BID PENDING SALE TO [facility] Last Admin: 06/17/20 21:27 Dose: 150 mg Documented by: Fluticasone Propionate (Flonase Nasal [place]) 1 spray NASAL DAILY PENDING SALE TO [facility] Last Admin: 06/17/20 15:32 Dose: 1 spray Documented by: Furosemide (Furosemide 40 Mg Tablet) 40 mg PO BID@1000,1800 PENDING SALE TO [facility] Last Admin: 06/17/20 17:08 Dose: 40 mg Documented by: Guaifenesin (Mucinex) 1,200 mg PO BID PENDING SALE TO [facility] Last Admin: 06/17/20 21:27 Dose: 1,200 mg Documented by: Guaifenesin (Robitussin) 20 ml PO Q4H PRN PRN PRN Reason: COUGH Hydromorphone HCl (Dilaudid Inj) 1 mg IV Q4H PRN PRN PRN Reason: Pain Score 6-10 Last Admin: 06/18/20 04:45 Dose: 1 mg Documented by: Piperacillin Sod/Tazobactam (Sod 3.375 gm/ Sodium Chloride) 50 mls @ 12.5 mls/hr IV Q8 PENDING SALE TO [facility] Last Admin: 06/18/20 06:57 Dose: 12.5 mls/hr Documented by: Vancomycin IV Pharmacy to Dose (1 ea/ Sodium Chloride) 500 mls @ 250 mls/hr IV X1 PRN; Protocol PRN Reason: Rx to Dose Sodium Chloride () 250 mls @ 15 mls/hr IV .[id number] PRN PRN Reason: Saline Flush Last Infusion: 06/17/20 16:00 Dose: 0 mls/hr Documented by: Sodium Chloride () 250 mls @ 15 mls/hr IV .[id number] PRN PRN Reason: Additional IVPB Infusion Vancomycin HCl 1,250 mg/ (Sodium Chloride) 275 mls @ 167 mls/hr IV Q12H PENDING SALE TO [facility] Magnesium Hydroxide (Milk Of Magnesia) 30 ml PO DAILY PRN PRN PRN Reason: Constipation Melatonin (Melatonin) 3 mg PO QHS PRN PRN PRN Reason: INSOMNIA Metoprolol Tartrate (Lopressor (Beta Katerine)) 25 mg PO BID PENDING SALE TO [facility] Last Admin: 06/17/20 21:25 Dose: Not Given Documented by: Morphine Sulfate (Ms Contin) 15 mg PO BID PENDING SALE TO [facility] Last Admin: 06/17/20 21:27 Dose: 15 mg Documented by: Nitroglycerin (Nitrostat) 0.4 mg SUBLINGUAL Q5M PRN PRN Reason: CARDIAC/CHEST PAIN Nutritional Formula (Rosendo - [place] Flavor) 1 packet PO BIDCM PENDING SALE TO [facility] Last Admin: 06/17/20 17:08 Dose: 1 packet Documented by: Nystatin (Mycostatin Powder) 1 applic TOPICAL 0600,2200 PENDING SALE TO [facility]; Protocol Last Admin: 06/18/20 06:10 Dose: Not Given Documented by: Ondansetron HCl (Zofran) 4 mg IV Q8H PRN PRN PRN Reason: NAUSEA/VOMITING Oxycodone HCl (Oxyir) 5 mg PO Q8H PRN PRN Reason: Pain Score 1-10 Last Admin: 06/18/20 03:14 Dose: 5 mg Documented by: Polyethylene Glycol (Miralax) 17 gm PO DAILY PRN PRN PRN Reason: Constipation Prochlorperazine Edisylate (Compazine Iv) 5 mg IV Q4H PRN PRN PRN Reason: Breakthrough Nausea/Vomiting Psyllium Hydrophilic Mucilloid (Metamucil) 1 packet PO DAILY PRN PRN PRN Reason: Constipation Senna/Docusate Sodium (Senokot-S, Yamilex-Colace) 2 tablet PO BID PRN PRN PRN Reason: Constipation Sodium Chloride () 10 - 40 ml IV UD PRN PRN Reason: SALINE FLUSH Last Admin: 06/18/20 04:46 Dose: 10 ml Documented by: Throat Lozenges (Cepacol Sore Throat Lozenge) 1 lozenge MUCOUS MEM Q2H PRN PRN PRN Reason: SORE THROAT Venlafaxine HCl (Effexor Xr) 150 mg PO DAILY PENDING SALE TO [facility] Last Admin: 06/17/20 15:31 Dose: 150 mg Documented by: Venlafaxine HCl (Effexor) 75 mg PO QHS PENDING SALE TO [facility] Last Admin: 06/17/20 21:28 Dose: 75 mg Documented by: Medical Necessity - Tobacco Use Smoking Status: Former smoker Tobacco Use: Non-smoker Assessment/Plan All Active Problems (Last Updated 02/28/20 @ 07:[address] Santosh Nobles MD) Generalized weakness (Acute) Dyspnea (Acute) Patient's noncompliance with other medical treatment and regimen (Acute) Hypoxemia (Acute) COPD exacerbation (Acute) Right foot infection (Acute) Cellulitis of right lower extremity (Acute) Sepsis (Acute) Chronic combined systolic and diastolic CHF (congestive heart failure) (Acute) Ulceration right dorsal 2nd toe down to bone s/p debridement n 06/17/2020 Osteomyelitis right 2nd toe Cellulitis right forefoot Hammer toe, right Multiple comorbidities Right foot improving, s/p debridement. Wound culture with staph aureus, MRSA DNA PCR negative. Surgical cultures pending. Patient is on IV antibiotics at this time - vanc and zosyn. Patient did have LEAS in February which showed no arterial occlusive disease. Clinically there is no evidence of ischemia to the foot or ankle. Changed dressing this morning - painted w/ betadine soln, applied gauze, kerlix and carey. No weightbearing to right forefoot, ok for heel weightbearing. Keep right foot elevated. Podiatry will continue to follow.
[2020-06-18] MEDS: Fluticasone 0.05% 1 SPRAY NASAL.SRY NASAL (10:32)
[2020-06-18] MEDS: Venlafaxine XR 150 MG Capsule PO (10:33)
[2020-06-18] MEDS: Famotidine 20 MG Tablet 40 MG PO (10:33)
[2020-06-18] MEDS: Flecainide 150 MG Tablet PO ×2 (10:33→21:58)
[2020-06-18] MEDS: Metoprolol Tartrate 25 MG Tablet PO (10:33)
[2020-06-18] MEDS: Furosemide 40 MG Tablet PO ×2 (10:33→17:58)
[2020-06-18] MEDS: Enoxaparin 40 MG/0.4 ML Syringe SC (10:33)
[2020-06-18] MEDS: guaiFENesin 1,200 MG Tablet 1200 MG PO ×2 (10:34→21:58)
[2020-06-18] MEDS: morphine SR 15 MG Tablet PO ×2 (10:36→21:57)
[2020-06-18 11:59] LABS: Vancomycin, Trough Level 31.3 ug/mL (5.0-15.0)
--- NOTE | 2020-06-18 12:47 | PCM.RX.CS ---
Consult Pharmacy has been consulted to manage selected antiobiotic: Vancomycin Type of Consult: Follow-up Suspected Infection: Skin/Soft tissue Prior Doses of Antibiotics Received/Current Regimen: 1250mg iv q12h Labs: Sodium 137 mmol/L (136-145) 06/18/20 05:54 Potassium 4.3 mmol/L (3.5-5.1) 06/18/20 05:54 Chloride 103 mmol/L (98-107) 06/18/20 05:54 Carbon Dioxide 28.0 mmol/L (21.0-32.0) 06/18/20 05:54 Anion Gap 6 (5-15) 06/18/20 05:54 BUN 26 mg/dL (7-18) H 06/18/20 05:54 Creatinine 1.22 mg/dL (0.55-1.02) H 06/18/20 05:54 Est GFR (MDRD) Af Amer 56 mL/min (>60) L 06/18/20 05:54 Est GFR (MDRD) Non-Af 46 mL/min (>60) L 06/18/20 05:54 BUN/Creatinine Ratio 21.3 RATIO (-20) H 06/18/20 05:54 Glucose 127 mg/dL (74-106) H 06/18/20 05:54 Vancomycin Trough 31.3 ug/mL (5.0-15.0) H 06/18/20 10:55 Microbiology: Microbiology 06/17/20 13:20 Other - Other Gram Stain - Final 06/17/20 13:20 Other - Other Gram Stain - Final 06/15/20 21:20 Blood Culture (Wb) - Arm Left Blood Culture - Preliminary No growth in 48 hours. 06/15/20 20:50 Blood Culture (Wb) - Anticubital Left Blood Culture - Preliminary No growth in 48 hours. 06/16/20 00:01 Skin - Toe Gram Stain - Final 06/16/20 00:01 Skin - Toe Wound Culture - Preliminary Staphylococcus aureus Weight used for dosin.8 kg Estimated Creatinine Clearance: ~53ml/min Goal Trough: 15-20 mcg/mL Pharmacy Plan for Drug Dosing: Tr this AM 31.3. Will hold any further dosing at this time and get a random level in AM 20. Pharmacy Service will continue to monitor and adjust dosing as required. Follow-Up Labs: Trough Vancomycin - random level 10.15.20 @06
--- NOTE | 2020-06-18 12:57 | PCM.PROGNOTE ---
<LuisChyna [employer] - Last Filed: 06/18/20 13:04> Patient Problems: Active and Suspected Problems (Last Updated 02/28/20 @ 07:[address] Santosh Nobles MD) Right foot infection (Acute) Subjective: Patient seen and examined. Reports increased pain earlier this morning which is now improved. Discussed discharge planning again with patient and she is adamant about returning home. We will continue to assess closer to discharge. Patient denies fever, chills. Denies other current complaints. - Physical Exam Vitals/I&O's: Vital Signs Temp Pulse Resp BP Pulse Ox 98.8 F 88 18 117/57 L 92 06/18/20 08:52 06/18/20 10:33 06/18/20 08:52 06/18/20 08:52 06/18/20 08:52 Oxygen Flow Rate (L/min) 4 Oxygen Delivery Method Nasal Cannula Weight: 242 lb 1.081 oz Body Mass Index (BMI) 39.4 Intake and Output for Last 24 Hours 06/16/20 06/17/20 06/18/20 23:59 23:59 23:59 Intake Total 2530.75 / 2530.75 1311.75 / 1531.75 1275 / 1275 Output Total 3425 / 3425 1100 / 1700 1000 / 1000 Balance -894.25 / -894.25 211.75 / -168.25 275 / 275 General: Alert, Oriented x3, Cooperative HEENT: Atraumatic, PERRLA, EOMI, Normocephalic Neck: Supple, No JVD, Negative Carotid Bruits Lungs: Clear to auscultation, Diminished Cardiovascular: Regular rate, No murmurs Abdomen: Bowel Sounds Present, Soft, Non Tender, Non-Distended, Obese Extremities: No clubbing, No cyanosis, Capillary Refill Less than 3 Seconds, Edema - +2 bilateral lower extremities Skin: No rashes, No breakdown, - - Bilateral lower extremity venous stasis skin changes. Right second toe anterior ulceration with surrounding erythema status post debridement. Postop dressing intact. Musculoskeletal: No Tenderness to Palpation of Joints or Extremities Neurological: Cranial nerves II-XII grossly intact, Neuro grossly intact Psych/Mental Status: Normal Affect, Appropriate Microbiology Past 72 Hours 06/17/20 13:20 Other - Other Gram Stain - Final 06/17/20 13:20 Other - Other Wound Culture - Preliminary Staphylococcus aureus 06/17/20 13:20 Other - Other Gram Stain - Final 06/17/20 13:20 Other - Other Wound Culture - Preliminary Staphylococcus aureus 06/15/20 21:20 Blood Culture (Wb) - Arm Left Blood Culture - Preliminary No growth in 48 hours. 06/15/20 20:50 Blood Culture (Wb) - Anticubital Left Blood Culture - Preliminary No growth in 48 hours. 06/16/20 00:01 Skin - Toe Gram Stain - Final 06/16/20 00:01 Skin - Toe Wound Culture - Preliminary Staphylococcus aureus Laboratory Results 06/17/20 22:56: Vancomycin Trough 30.9 H 06/18/20 05:54: WBC 9.2, RBC 3.80 L, Hgb 11.5 L, Hct 38.5, MCV 101.3 H, MCH 30.3, MCHC 29.9 L, RDW Std Deviation 51.4 H, RDW Coeff of Ankit 13.8, Plt Count 354, MPV 9.3, Immature Gran % (Auto) 0.300, Neut % (Auto) 70.1 H, Lymph % (Auto) 15.7 L, Vermilion % (Auto) 9.0, Eos % (Auto) 4.1, Baso % (Auto) 0.8, Absolute Neuts (auto) 6.5, Absolute Lymphs (auto) 1.45, Nucleated RBC % 0 06/18/20 05:54: Sodium 137, Potassium 4.3, Chloride 103, Carbon Dioxide 28.0, Anion Gap 6, BUN 26 H, Creatinine 1.22 H, Estim Creat Clear Calc 39.16, Est GFR (MDRD) Af Amer 56 L, Est GFR (MDRD) Non-Af 46 L, BUN/Creatinine Ratio 21.3 H, Glucose 127 H, Calcium 8.6 06/18/20 10:55: Vancomycin Trough 31.3 H Current Medications Acetaminophen (Tylenol) 1,000 mg PO Q8 KIM Last Admin: 06/18/20 06:10 Dose: Not Given Documented by: Al Hydroxide/Mg Hydroxide (Mylanta Ii) 30 ml PO Q6H PRN PRN PRN Reason: Gastric Burning Albuterol Sulfate (Ventolin Aerosols) 2.5 mg INHALATION Q2H PRN PRN PRN Reason: Dyspnea, wheezing Enoxaparin Sodium (Lovenox) 40 mg SC DAILY [facility] Last Admin: 06/18/20 10:33 Dose: 40 mg Documented by: Famotidine (Pepcid) 40 mg PO DAILY [facility] Last Admin: 06/18/20 10:33 Dose: 40 mg Documented by: Flecainide Acetate (Tambocor) 150 mg PO BID [facility] Last Admin: 06/18/20 10:33 Dose: 150 mg Documented by: Fluticasone Propionate (Flonase Nasal [place]) 1 spray NASAL DAILY [facility] Last Admin: 06/18/20 10:32 Dose: 1 spray Documented by: Furosemide (Furosemide 40 Mg Tablet) 40 mg PO BID@1000,1800 [facility] Last Admin: 06/18/20 10:33 Dose: 40 mg Documented by: Guaifenesin (Mucinex) 1,200 mg PO BID [facility] Last Admin: 06/18/20 10:34 Dose: 1,200 mg Documented by: Guaifenesin (Robitussin) 20 ml PO Q4H PRN PRN PRN Reason: COUGH Hydromorphone HCl (Hydromorphone 1 Mg/Ml Syringe) 1 mg IV Q3H PRN PRN PRN Reason: Pain Score 6-10 Piperacillin Sod/Tazobactam (Sod 3.375 gm/ Sodium Chloride) 50 mls @ 12.5 mls/hr IV Q8 [facility] Last Infusion: 06/18/20 11:15 Dose: Infused Documented by: Vancomycin IV Pharmacy to Dose (1 ea/ Sodium Chloride) 500 mls @ 250 mls/hr IV X1 PRN; Protocol PRN Reason: Rx to Dose Sodium Chloride () 250 mls @ 15 mls/hr IV .[id number] PRN PRN Reason: Saline Flush Last Infusion: 06/17/20 16:00 Dose: 0 mls/hr Documented by: Sodium Chloride () 250 mls @ 15 mls/hr IV .[id number] PRN PRN Reason: Additional IVPB Infusion Magnesium Hydroxide (Milk Of Magnesia) 30 ml PO DAILY PRN PRN PRN Reason: Constipation Melatonin (Melatonin) 3 mg PO QHS PRN PRN PRN Reason: INSOMNIA Metoprolol Tartrate (Lopressor (Beta Katerine)) 25 mg PO BID [facility] Last Admin: 06/18/20 10:33 Dose: 25 mg Documented by: Morphine Sulfate (Ms Contin) 15 mg PO BID [facility] Last Admin: 06/18/20 10:36 Dose: 15 mg Documented by: Nitroglycerin (Nitrostat) 0.4 mg SUBLINGUAL Q5M PRN PRN Reason: CARDIAC/CHEST PAIN Nutritional Formula (Rosendo - Crosby Flavor) 1 packet PO BIDCM [facility] Last Admin: 06/18/20 10:31 Dose: Not Given Documented by: Nystatin (Mycostatin Powder) 1 applic TOPICAL 0600,2200 [facility]; Protocol Last Admin: 06/18/20 06:10 Dose: Not Given Documented by: Ondansetron HCl (Zofran) 4 mg IV Q8H PRN PRN PRN Reason: NAUSEA/VOMITING Oxycodone HCl (Oxyir) 5 mg PO Q8H PRN PRN Reason: Pain Score 1-10 Last Admin: 06/18/20 11:55 Dose: 5 mg Documented by: Polyethylene Glycol (Miralax) 17 gm PO DAILY PRN PRN PRN Reason: Constipation Prochlorperazine Edisylate (Compazine Iv) 5 mg IV Q4H PRN PRN PRN Reason: Breakthrough Nausea/Vomiting Psyllium Hydrophilic Mucilloid (Metamucil) 1 packet PO DAILY PRN PRN PRN Reason: Constipation Senna/Docusate Sodium (Senokot-S, Yamilex-Colace) 2 tablet PO BID PRN PRN PRN Reason: Constipation Sodium Chloride () 10 - 40 ml IV UD PRN PRN Reason: SALINE FLUSH Last Admin: 06/18/20 04:46 Dose: 10 ml Documented by: Throat Lozenges (Cepacol Sore Throat Lozenge) 1 lozenge MUCOUS MEM Q2H PRN PRN PRN Reason: SORE THROAT Venlafaxine HCl (Effexor Xr) 150 mg PO DAILY [facility] Last Admin: 06/18/20 10:33 Dose: 150 mg Documented by: Venlafaxine HCl (Effexor) 75 mg PO QHS [facility] Last Admin: 06/17/20 21:28 Dose: 75 mg Documented by: Medical Necessity - Tobacco Use Smoking Status: Former smoker Tobacco Use: Non-smoker Assessment/Plan All Active Problems (Last Updated 02/28/20 @ 07:[address] Santosh Nobles MD) Generalized weakness (Acute) Dyspnea (Acute) Patient's noncompliance with other medical treatment and regimen (Acute) Hypoxemia (Acute) COPD exacerbation (Acute) Right foot infection (Acute) Cellulitis of right lower extremity (Acute) Sepsis (Acute) Chronic combined systolic and diastolic CHF (congestive heart failure) (Acute) 1. Acute on chronic combined systolic and diastolic CHF, dilated cardiomyopathy with chronic hypoxic respiratory failure-BNP 1670. Patient with increased lower extremity swelling and weight gain. Strict I&O. Daily weight. Chon wraps bilateral lower extremities. Echocardiogram 05/14/2019 demonstrates an EF of 55%, stage I diastolic dysfunction, mild to moderate tricuspid valve insufficiency. Repeat echo demonstrates an EF of 50%. Diuretic regimen previously held as outpatient due to worsening renal function. Renal function currently at baseline. Transition from IV Lasix to p.o. Lasix 40 mg twice daily. Patient on baseline home O2 requirements, 4 L. 2. Right dorsal second toe ulceration with right second toe osteomyelitis and right lower extremity cellulitis, chronic venous stasis bilateral lower extremities-podiatry following. Foot x-ray normal. MRI demonstrates acute early osteomyelitis at the second proximal phalanx head, bone marrow edema/contusion of the second proximal pharynx head and second middle phalange space, potential septic arthritis at the second PIP joint fusion. Continue IV Zosyn and IV vancomycin. Wound RN consult. Patient underwent debridement of infected soft tissue and bone of right second toe 06/17/2020. Follow postop cultures. Preliminary growing staph. Obtain Dopplers bilateral lower extremities given history of VTE. 3. Chronic kidney disease stage III-at baseline. Trend BMP. 4. Chronic anemia-stable, trend CBC. 5. Paroxysmal atrial fibrillation-continue flecainide, metoprolol. 6. Hypertension-stable, continue metoprolol. 7. Hyperlipidemia-continue statin. 8. 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-encouraged diet and lifestyle modifications. 9. Chronic pain syndrome/chronic back pain-PT/OT. As needed pain regimen. 10. Anxiety/depression-continue venlafaxine. 11. GERD-continue famotidine. 12. History of VTE-no longer on anticoagulation. 13. Debility/failure to thrive-frequent admissions however patient and daughter have refused placement in the past. Follow PT/OT. Case management/social work following. DVT prophylaxis-Lovenox This patient was seen by Chyna Luis, [employer]C under the supervision of Dr. Kapoor. <Tata Kapoor - Last Filed: 06/18/20 13:50> Subjective: Pt has been having some cramping in the R posterior calf region this am that is better but still painful. Pt is insistent on going home despite recommendations for SNF at d/c for further wound care and therapy. Pt has had multiple admissions recently. - Physical Exam Vitals/I&O's: Vital Signs Temp Pulse Resp BP Pulse Ox 98.8 F 88 18 117/57 L 92 06/18/20 08:52 06/18/20 10:33 06/18/20 08:52 06/18/20 08:52 06/18/20 08:52 Oxygen Flow Rate (L/min) 4 Oxygen Delivery Method Nasal Cannula Weight: 109.8 kg Body Mass Index (BMI) 39.4 Intake and Output for Last 24 Hours 06/16/20 06/17/20 06/18/20 23:59 23:59 23:59 Intake Total 2530.75 / 2530.75 1311.75 / 1531.75 1275 / 1275 Output Total 3425 / 3425 1100 / 1700 1000 / 1000 Balance -894.25 / -894.25 211.75 / -168.25 275 / 275 General: Alert, Oriented x3, Cooperative, No apparent distress, Well developed, Well nourished, - - Obese WF who appears older than stated age is lying in bed watching TV. appears comfortable HEENT: Atraumatic, PERRLA, EOMI, Normocephalic Oral: Moist Mucosa Neck: Supple, Trachea Midline Lungs: Clear to auscultation, No rhonchi, No wheeze, No rales, Diminished - diffusely with upper airway wheeze Cardiovascular: Regular rate, Regular Rhythm, Normal S1, Normal S2, No murmurs, No Ectopic Activity, No rub noted, No Gallop Abdomen: Bowel Sounds Present, Soft, Non Tender, Non-Distended, Obese Extremities: No clubbing, No cyanosis, Capillary Refill Less than 3 Seconds, Edema Skin: No rashes, No breakdown, - Neurological: Cranial nerves II-XII grossly intact, Neuro grossly intact Psych/Mental Status: Normal Affect, Appropriate Microbiology Past 72 Hours 06/17/20 13:20 Other - Other Gram Stain - Final 06/17/20 13:20 Other - Other Wound Culture - Preliminary Staphylococcus aureus 06/17/20 13:20 Other - Other Gram Stain - Final 06/17/20 13:20 Other - Other Wound Culture - Preliminary Staphylococcus aureus 06/15/20 21:20 Blood Culture (Wb) - Arm Left Blood Culture - Preliminary No growth in 48 hours. 06/15/20 20:50 Blood Culture (Wb) - Anticubital Left Blood Culture - Preliminary No growth in 48 hours. 06/16/20 00:01 Skin - Toe Gram Stain - Final 06/16/20 00:01 Skin - Toe Wound Culture - Preliminary Staphylococcus aureus Laboratory Results 06/17/20 22:56: Vancomycin Trough 30.9 H 06/18/20 05:54: WBC 9.2, RBC 3.80 L, Hgb 11.5 L, Hct 38.5, MCV 101.3 H, MCH 30.3, MCHC 29.9 L, RDW Std Deviation 51.4 H, RDW Coeff of Ankit 13.8, Plt Count 354, MPV 9.3, Immature Gran % (Auto) 0.300, Neut % (Auto) 70.1 H, Lymph % (Auto) 15.7 L, Vermilion % (Auto) 9.0, Eos % (Auto) 4.1, Baso % (Auto) 0.8, Absolute Neuts (auto) 6.5, Absolute Lymphs (auto) 1.45, Nucleated RBC % 0 06/18/20 05:54: Sodium 137, Potassium 4.3, Chloride 103, Carbon Dioxide 28.0, Anion Gap 6, BUN 26 H, Creatinine 1.22 H, Estim Creat Clear Calc 39.16, Est GFR (MDRD) Af Amer 56 L, Est GFR (MDRD) Non-Af 46 L, BUN/Creatinine Ratio 21.3 H, Glucose 127 H, Calcium 8.6 06/18/20 10:55: Vancomycin Trough 31.3 H Current Medications Acetaminophen (Tylenol) 1,000 mg PO Q8 KIM Last Admin: 06/18/20 06:10 Dose: Not Given Documented by: Al Hydroxide/Mg Hydroxide (Mylanta Ii) 30 ml PO Q6H PRN PRN PRN Reason: Gastric Burning Albuterol Sulfate (Ventolin Aerosols) 2.5 mg INHALATION Q2H PRN PRN PRN Reason: Dyspnea, wheezing Enoxaparin Sodium (Lovenox) 40 mg SC DAILY [facility] Last Admin: 06/18/20 10:33 Dose: 40 mg Documented by: Famotidine (Pepcid) 40 mg PO DAILY [facility] Last Admin: 06/18/20 10:33 Dose: 40 mg Documented by: Flecainide Acetate (Tambocor) 150 mg PO BID [facility] Last Admin: 06/18/20 10:33 Dose: 150 mg Documented by: Fluticasone Propionate (Flonase Nasal [place]) 1 spray NASAL DAILY [facility] Last Admin: 06/18/20 10:32 Dose: 1 spray Documented by: Furosemide (Furosemide 40 Mg Tablet) 40 mg PO BID@1000,1800 [facility] Last Admin: 06/18/20 10:33 Dose: 40 mg Documented by: Guaifenesin (Mucinex) 1,200 mg PO BID [facility] Last Admin: 06/18/20 10:34 Dose: 1,200 mg Documented by: Guaifenesin (Robitussin) 20 ml PO Q4H PRN PRN PRN Reason: COUGH Hydromorphone HCl (Hydromorphone 1 Mg/Ml Syringe) 1 mg IV Q3H PRN PRN PRN Reason: Pain Score 6-10 Piperacillin Sod/Tazobactam (Sod 3.375 gm/ Sodium Chloride) 50 mls @ 12.5 mls/hr IV Q8 [facility] Last Infusion: 06/18/20 11:15 Dose: Infused Documented by: Vancomycin IV Pharmacy to Dose (1 ea/ Sodium Chloride) 500 mls @ 250 mls/hr IV X1 PRN; Protocol PRN Reason: Rx to Dose Sodium Chloride () 250 mls @ 15 mls/hr IV .[id number] PRN PRN Reason: Saline Flush Last Infusion: 06/17/20 16:00 Dose: 0 mls/hr Documented by: Sodium Chloride () 250 mls @ 15 mls/hr IV .[id number] PRN PRN Reason: Additional IVPB Infusion Magnesium Hydroxide (Milk Of Magnesia) 30 ml PO DAILY PRN PRN PRN Reason: Constipation Melatonin (Melatonin) 3 mg PO QHS PRN PRN PRN Reason: INSOMNIA Metoprolol Tartrate (Lopressor (Beta Katerine)) 25 mg PO BID [facility] Last Admin: 06/18/20 10:33 Dose: 25 mg Documented by: Morphine Sulfate (Ms Contin) 15 mg PO BID [facility] Last Admin: 06/18/20 10:36 Dose: 15 mg Documented by: Nitroglycerin (Nitrostat) 0.4 mg SUBLINGUAL Q5M PRN PRN Reason: CARDIAC/CHEST PAIN Nutritional Formula (Rosendo - [place] Flavor) 1 packet PO BIDCM [facility] Last Admin: 06/18/20 10:31 Dose: Not Given Documented by: Nystatin (Mycostatin Powder) 1 applic TOPICAL 0600,2200 [facility]; Protocol Last Admin: 06/18/20 06:10 Dose: Not Given Documented by: Ondansetron HCl (Zofran) 4 mg IV Q8H PRN PRN PRN Reason: NAUSEA/VOMITING Oxycodone HCl (Oxyir) 5 mg PO Q8H PRN PRN Reason: Pain Score 1-10 Last Admin: 06/18/20 11:55 Dose: 5 mg Documented by: Polyethylene Glycol (Miralax) 17 gm PO DAILY PRN PRN PRN Reason: Constipation Prochlorperazine Edisylate (Compazine Iv) 5 mg IV Q4H PRN PRN PRN Reason: Breakthrough Nausea/Vomiting Psyllium Hydrophilic Mucilloid (Metamucil) 1 packet PO DAILY PRN PRN PRN Reason: Constipation Senna/Docusate Sodium (Senokot-S, Yamilex-Colace) 2 tablet PO BID PRN PRN PRN Reason: Constipation Sodium Chloride () 10 - 40 ml IV UD PRN PRN Reason: SALINE FLUSH Last Admin: 06/18/20 04:46 Dose: 10 ml Documented by: Throat Lozenges (Cepacol Sore Throat Lozenge) 1 lozenge MUCOUS MEM Q2H PRN PRN PRN Reason: SORE THROAT Venlafaxine HCl (Effexor Xr) 150 mg PO DAILY [facility] Last Admin: 06/18/20 10:33 Dose: 150 mg Documented by: Venlafaxine HCl (Effexor) 75 mg PO QHS [facility] Last Admin: 06/17/20 21:28 Dose: 75 mg Documented by: Assessment/Plan I agree with the above and the following reflects my own independent history and physical exam ASSESSMENT Acute on Chronic Hypoxic Respiratory Failure-Multifactorial (decompensated HFrEF, COPD, ESPERANZA, OHS) OM R 2nd digit Leukocytosis-resolved Metabolic Encephalopathy CKD stage 3 Chronic Anemia PAF HPL HTN GERD H/O DVT-remote Chronic Pain 2/2 LBP Depression/Anxiety MO PLAN -Respiratory status remains at baseline and pt is on 4 L -continue PO lasix -sCr is stable -OR yesterday and debridement complete -S. Aureus--> suspected MRSA in wound -blood cx neg -d/c Zosyn, continue Vanc for now per pharmacy -await ID input--> may need IV Abx at d/c -pt refusing placement Inpatient E&M: [id number] Subs Hosp L2
--- NOTE | 2020-06-18 13:05 | VDLE_ITS ---
Reason For Study: Swelling RIGHT LEFT GSV is normal. GSV is normal. CFV is compressible, spontaneous, phasic, CFV is compressible, spontaneous, phasic, competent and demonstrates normal competent, and demonstrates normal augmentation. augmentation. FV is compressible, spontaneous, phasic, FV is compressible, spontaneous, phasic, competent and demonstrates normal competent and demonstrates normal augmentation. augmentation. POP V is compressible, spontaneous, phasic, POP V is compressible, spontaneous, phasic, competent and demonstrates normal competent and demonstrates normal augmentation. augmentation. T/P Trunk is compressible. T/P Trunk is compressible. PTV is compressible. PTV is compressible. RT PerV is compressible. LT PerV is compressible. Procedure This is a venous duplex using B-mode, color flow and spectral Doppler. Exam performed portable in patient room. A preliminary report was called and/or faxed to [facility]. Interpretation Summary No evidence for acute deep venous thrombosis bilateral lower extremities with patent and compressible bilateral great saphenous veins. Ordering Physician: Chyna Smith Referring Physician: Darinel Callejas Chi Performed By: Leanne Abreu RVT
--- NOTE | 2020-06-18 13:36 | NURSING ---
Dressing had been changed this am per Dr Montilla.
[2020-06-18] MEDS: Acetaminophen 500 MG Tablet 1000 MG PO ×2 (15:20→21:58)
--- NOTE | 2020-06-18 16:56 | CON.PCM_ITS ---
Problem List (1) Osteomyelitis Status: Acute Reason for Consult: osteo Consulted by: Dr. Kapoor History of Present Illness: The patient is a 69 year old F with blindness, COPD, heart failure, presented with several weeks of R foot pain and swelling. Denies any drainage, did have redness. No known inciting event. No fever or chills. Came to ED, podiatry consulted, started on vanc/zosyn. Taken to OR 06/[address] Montilla for partial R 2nd toe amputation. Clearance fragment now (+). On vanc, but high trough. Zosyn was stopped. Feeling ok, but foot still painful. Full ROS performed and neg except as noted above. - Medical History Past Medical History (Chronic Problems): Chronic Problems (Last Updated 02/28/20 @ 07:[address] Santosh Nobles MD) CHF exacerbation (Chronic) Debility (Chronic) Vitamin D deficiency (Chronic) Restless leg syndrome (Chronic) COPD (chronic obstructive pulmonary disease) (Chronic) Cardiomyopathy, dilated (Chronic) ESPERANZA (obstructive sleep apnea) (Chronic) Chronic respiratory failure with hypoxia (Chronic) Anxiety (Chronic) Depression (Chronic) Osteoarthritis (Chronic) Pulmonary nodules (Chronic) Left ventricular hypertrophy (Chronic) Back pain (Chronic) Chronic systolic heart failure (Chronic) GERD (gastroesophageal reflux disease) (Chronic) Non-sustained ventricular tachycardia (Chronic) Hypertension (Chronic) 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) 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 medical therapy (Chronic) Paroxysmal atrial fibrillation (Chronic) Asthma (Chronic) Allergies/Adverse Reactions: Allergies doxycycline Allergy (Severe, Verified 06/15/20 19:58) ulcerations of lips and mouth gabapentin Adverse Reaction (Severe, Verified 06/15/20 19:58) GI upset, Vomiting ciprofloxacin [From Cipro] Adverse Reaction (Intermediate, Verified 06/15/20 19:58) Other messes with her heart medicine Home Medications: Ambulatory Orders Medication Instructions Recorded Albuterol Inhaler [Ventolin Hfa] 1 puff INHALATION Q4H PRN PRN 08/08/13 Fluticasone 0.05% [Flonase Nasal 1 spray NASAL DAILY 08/08/13 [place]] flecainide 150 mg tablet 150 mg PO BID 08/16/17 Venlafaxine HCl [Venlafaxine HCl 75 mg PO QHS 01/28/18 ER] Metoprolol Tartrate [Lopressor 25 mg PO BID 02/01/18 (beta bairon)] Acetaminophen [Tylenol] 1,000 mg PO Q8 05/13/19 Venlafaxine HCl [Venlafaxine HCl 150 mg PO DAILY 05/13/19 ER] Famotidine [Pepcid] 40 mg PO DAILY #30 tab 05/28/19 Nystatin Powder [Mycostatin Powder] 1 applic TOPICAL 0600,2200 bottle 05/28/19 Polyethylene Glycol 3350 [Miralax] 17 gm PO DAILY PRN PRN 02/28/20 Diclofenac Sodium [Voltaren] 1 - 2 gm TOPICAL TID PRN 04/02/20 Morphine Sulfate 15 mg PO BID 04/02/20 Guaifenesin [Mucinex] 1,200 mg PO BID #14 tab.er.12h 04/06/20 Oxycodone HCl/Acetaminophen 1 tab PO Q8H 06/15/20 [Percocet 5/325] - Social History SMOKING STATUS:: Former smoker Vital Signs Temp Pulse Resp BP Pulse Ox 98.1 F 63 16 108/65 94 06/18/20 14:55 06/18/20 15:00 06/18/20 14:55 06/18/20 14:55 06/18/20 14:55 Oxygen Flow Rate (L/min) 2 Oxygen Delivery Method Nasal Cannula Weight: 109.8 kg Body Mass Index (BMI) 39.4 Microbiology Past 72 Hours 06/17/20 13:20 Gram Stain - Final Other - Other Wound Culture - Preliminary Staphylococcus aureus 06/17/20 13:20 Gram Stain - Final Other - Other Wound Culture - Preliminary Staphylococcus aureus 06/15/20 21:20 Blood Culture - Preliminary Blood Culture (Wb) - Arm Left No growth in 48 hours. 06/15/20 20:50 Blood Culture - Preliminary Blood Culture (Wb) - Anticubital Left No growth in 48 hours. 06/16/20 00:01 Gram Stain - Final Skin - Toe Wound Culture - Preliminary Staphylococcus aureus Laboratory Tests Past 24 Hrs 06/17/20 06/18/20 06/18/20 22:56 05:54 05:54 WBC 9.2 RBC 3.80 L Hgb 11.5 L Hct 38.5 MCV 101.3 H MCH 30.3 MCHC 29.9 L RDW Std Deviation 51.4 H RDW Coeff of Ankit 13.8 Plt Count 354 MPV 9.3 Immature Gran % (Auto) 0.300 Neut % (Auto) 70.1 H Lymph % (Auto) 15.7 L Morrow % (Auto) 9.0 Eos % (Auto) 4.1 Baso % (Auto) 0.8 Absolute Neuts (auto) 6.5 Absolute Lymphs (auto) 1.45 Nucleated RBC % 0 Sodium 137 Potassium 4.3 Chloride 103 Carbon Dioxide 28.0 Anion Gap 6 BUN 26 H Creatinine 1.22 H Estim Creat Clear Calc 39.16 Est GFR (MDRD) Af Amer 56 L Est GFR (MDRD) Non-Af 46 L BUN/Creatinine Ratio 21.3 H Glucose 127 H Calcium 8.6 Vancomycin Trough 30.9 H 06/18/20 10:55 WBC RBC Hgb Hct MCV MCH MCHC RDW Std Deviation RDW Coeff of Ankit Plt Count MPV Immature Gran % (Auto) Neut % (Auto) Lymph % (Auto) Morrow % (Auto) Eos % (Auto) Baso % (Auto) Absolute Neuts (auto) Absolute Lymphs (auto) Nucleated RBC % Sodium Potassium Chloride Carbon Dioxide Anion Gap BUN Creatinine Estim Creat Clear Calc Est GFR (MDRD) Af Amer Est GFR (MDRD) Non-Af BUN/Creatinine Ratio Glucose Calcium Vancomycin Trough 31.3 H - Other Studies Radiology: [] reviewed Other Studies: [] Route of nutrition/ use of supplements: [] Nutritional Intake: [] IV Site: [] Naqvi Catheter: [] - Physical Exam General: Alert, Cooperative, No apparent distress HEENT: Atraumatic, Normocephalic Neck: Supple, No Nodes Lungs: Clear to auscultation, Normal air movement Cardiovascular: Regular rate, Regular Rhythm Abdomen: Soft, Non Tender, Non-Distended Extremities: No edema Skin: No rashes, Ulcer/ Wound - foot wrapped IV Site: Peripheral, without redness Musculoskeletal: No Tenderness to Palpation of Joints or Extremities - Assessment/Plan Antibiotics: [] Assessment/Plan: [] Active and Suspected Problems (Last Updated 02/28/20 @ 07:[address] Santosh Nobles MD) Right foot infection (Acute) suspected MSSA R toe osteo - mssa seen by pcr of wound. Now s/p partial R 2nd toe amp by Dr. Montilla on 06/17/20. Clearance cx showing staph. Vanc on hold with high troughs. Will start ceftriaxone. Plan will be for 6 weeks of abx at discharge. With good source control, po abx would be an option. Will follow, thank you.
[2020-06-18] MEDS: Venlafaxine HCl 75 MG Tablet PO (21:58)
[2020-06-19] VITALS (14 sets, daily range): BP systolic 100–121; BP diastolic 42–74; PULSE 64–82; RESP 16–18; TEMP 36.6–37; O2SAT 90–100
[2020-06-19 06:14] LABS: Hematocrit 38.7 % (37-47); Hemoglobin 11.2 g/dL (12.0-15.0); Mean Corp Hgb Conc 28.9 g/dL (32-36); Mean Corpuscular Hgb 29.7 pg (27.0-32.0); Mean Corpuscular Volume 102.7 fL (81-99); Mean Platelet Vol. 9.4 fl (6.2-12.0); Platelet Count 389 K/mm3 (150-450); RBC Distribution Width CV 13.7 % (11.6-14.6); Red Blood Count 3.77 M/mm3 (4.2-5.4)
[2020-06-19 06:50] LABS: Anion Gap 2 (5-15); BUN 35 mg/dL (7-18); Calcium,Total 8.9 mg/dL (8.5-10.1); Chloride 99 mmol/L (98-107); Creatinine, Serum 1.46 mg/dL (0.55-1.02); EST Glomerular Filtration Rate 38 mL/min (>60); Est Glom Filt Rate - Afr Amer 46 mL/min (>60); Estimated Creatinine Clearance 32.72 ml/min; Glucose 92 mg/dL (74-106); Sodium Level 138 mmol/L (136-145)
[2020-06-19 06:52] LABS: Vancomycin, Random Level 22.3 ug/mL (0.0-15.0)
--- NOTE | 2020-06-19 08:19 | PCM.RX.CS ---
Consult Pharmacy has been consulted to manage selected antiobiotic: Vancomycin Type of Consult: Follow-up Labs: Sodium 138 mmol/L (136-145) 06/19/20 06:00 Potassium 4.0 mmol/L (3.5-5.1) 06/19/20 06:00 Chloride 99 mmol/L (98-107) 06/19/20 06:00 Carbon Dioxide 37.0 mmol/L (21.0-32.0) H 06/19/20 06:00 Anion Gap 2 (5-15) L 06/19/20 06:00 BUN 35 mg/dL (7-18) H 06/19/20 06:00 Creatinine 1.46 mg/dL (0.55-1.02) H 06/19/20 06:00 Est GFR (MDRD) Af Amer 46 mL/min (>60) L 06/19/20 06:00 Est GFR (MDRD) Non-Af 38 mL/min (>60) L 06/19/20 06:00 BUN/Creatinine Ratio 24.0 RATIO (10-20) H 06/19/20 06:00 Glucose 92 mg/dL (74-106) 06/19/20 06:00 Vancomycin Trough 31.3 ug/mL (5.0-15.0) H 06/18/20 10:55 Random Vancomycin 22.3 ug/mL (0.0-15.0) H 06/19/20 06:00 Microbiology: Microbiology 06/17/20 13:20 Other - Other Gram Stain - Final 06/17/20 13:20 Other - Other Wound Culture - Preliminary Staphylococcus aureus 06/17/20 13:20 Other - Other Gram Stain - Final 06/17/20 13:20 Other - Other Wound Culture - Preliminary Staphylococcus aureus 06/15/20 21:20 Blood Culture (Wb) - Arm Left Blood Culture - Preliminary No growth in 48 hours. 06/15/20 20:50 Blood Culture (Wb) - Anticubital Left Blood Culture - Preliminary No growth in 48 hours. 06/16/20 00:01 Skin - Toe Gram Stain - Final 06/16/20 00:01 Skin - Toe Wound Culture - Preliminary Staphylococcus aureus Goal Trough: 15-20 mcg/mL Pharmacy Plan for Drug Dosing: VANCOMYCIN LEVEL RECEIVED Current Vancomycin Dose: ON HOLD (was 1250mg IV Q12hr) Number of Doses Received: ON HOLD Vancomycin Level: 22.3 Hours Since Last Dose: ~31hrs Renal Function: 1.46 Renal Function Trend: worsening Lab/Micro: Cx showing Staph, no sens data available yet Vancomycin Plan/Comments: Random vancomycin trough drawn which resulted in a value of 22.3 (goal trough 15-20). Will continue to hold vancomycin for today given elevated trough and worsening renal function from previous days. Will assess dosing in 24hrs and dose if needed. Pending Level: *RANDOM* trough 06/20/20 with AM labs Pharmacy Service will continue to monitor and adjust dosing as required.
[2020-06-19] MEDS: Venlafaxine XR 150 MG Capsule PO (09:51)
[2020-06-19] MEDS: Enoxaparin 40 MG/0.4 ML Syringe SC (09:51)
[2020-06-19] MEDS: Fluticasone 0.05% 1 SPRAY NASAL.SRY NASAL (09:52)
[2020-06-19] MEDS: guaiFENesin 1,200 MG Tablet 1200 MG PO ×2 (09:52→21:11)
[2020-06-19] MEDS: Famotidine 20 MG Tablet 40 MG PO (09:54)
[2020-06-19] MEDS: Flecainide 150 MG Tablet PO ×2 (09:55→21:10)
--- NOTE | 2020-06-19 11:17 | PN.ID_ITS ---
Patient Problems: Active and Suspected Problems (Last Updated 02/28/20 @ 07:[address] Santosh Nobles MD) Right foot infection (Acute) Osteomyelitis (Acute) Subjective: Feeling ok, no fever, no n/v/d. - Physical Exam Vitals/I&O's: Vital Signs Temp Pulse Resp BP Pulse Ox 98.1 F 77 16 100/42 L 92 06/19/20 09:30 06/19/20 10:05 06/19/20 09:30 06/19/20 10:05 06/19/20 09:30 Oxygen Flow Rate (L/min) 4 Oxygen Delivery Method Nasal Cannula Weight: 109.6 kg Body Mass Index (BMI) 39.4 Intake and Output for Last 24 Hours 06/17/20 06/18/20 06/19/20 23:59 23:59 23:59 Intake Total 1311.75 / 1531.75 1515 / 1515 120 / 120 Output Total 1100 / 1700 0 / 0 700 / 700 Balance 211.75 / -168.25 -535 / -535 -580 / -580 General: Cooperative, No apparent distress Lungs: Clear to auscultation, Normal air movement Cardiovascular: Regular rate, Regular Rhythm Abdomen: Soft, Non Tender, Non-Distended Skin: Ulcer/ Wound - foot wrapped Microbiology Past 72 Hours 06/17/20 13:20 Other - Other Gram Stain - Final 06/17/20 13:20 Other - Other Wound Culture - Final Staphylococcus aureus 06/16/20 00:01 Skin - Toe Gram Stain - Final 06/16/20 00:01 Skin - Toe Wound Culture - Final Staphylococcus aureus 06/17/20 13:20 Other - Other Gram Stain - Final 06/17/20 13:20 Other - Other Wound Culture - Final Staphylococcus aureus 06/15/20 21:20 Blood Culture (Wb) - Arm Left Blood Culture - Preliminary No growth in 48 hours. 06/15/20 20:50 Blood Culture (Wb) - Anticubital Left Blood Culture - Preliminary No growth in 48 hours. Laboratory Results 06/18/20 10:55: Vancomycin Trough 31.3 H 06/19/20 06:00: Random Vancomycin 22.3 H 06/19/20 06:00: WBC 8.0, RBC 3.77 L, Hgb 11.2 L, Hct 38.7, MCV 102.7 H, MCH 29.7, MCHC 28.9 L, RDW Std Deviation 52.0 H, RDW Coeff of Ankit 13.7, Plt Count 389, MPV 9.4 06/19/20 06:00: Sodium 138, Potassium 4.0, Chloride 99, Carbon Dioxide 37.0 H, Anion Gap 2 L, BUN 35 H, Creatinine 1.46 H, Estim Creat Clear Calc 32.72, Est GFR (MDRD) Af Amer 46 L, Est GFR (MDRD) Non-Af 38 L, BUN/Creatinine Ratio 24.0 H , Glucose 92, Calcium 8.9 Current Medications Acetaminophen (Tylenol) 1,000 mg PO Q8 [facility] Last Admin: 06/19/20 05:06 Dose: Not Given Documented by: Al Hydroxide/Mg Hydroxide (Mylanta Ii) 30 ml PO Q6H PRN PRN PRN Reason: Gastric Burning Albuterol Sulfate (Ventolin Aerosols) 2.5 mg INHALATION Q2H PRN PRN PRN Reason: Dyspnea, wheezing Enoxaparin Sodium (Lovenox) 40 mg SC DAILY [facility] Last Admin: 06/19/20 09:51 Dose: 40 mg Documented by: Famotidine (Pepcid) 40 mg PO DAILY [facility] Last Admin: 06/19/20 09:54 Dose: 40 mg Documented by: Flecainide Acetate (Tambocor) 150 mg PO BID [facility] Last Admin: 06/19/20 09:55 Dose: 150 mg Documented by: Fluticasone Propionate (Flonase Nasal Irene) 1 spray NASAL DAILY [facility] Last Admin: 06/19/20 09:52 Dose: 1 spray Documented by: Furosemide (Furosemide 40 Mg Tablet) 40 mg PO DAILY [facility] Guaifenesin (Mucinex) 1,200 mg PO BID [facility] Last Admin: 06/19/20 09:52 Dose: 1,200 mg Documented by: Guaifenesin (Robitussin) 20 ml PO Q4H PRN PRN PRN Reason: COUGH Hydromorphone HCl (Hydromorphone 1 Mg/Ml Syringe) 1 mg IV Q3H PRN PRN PRN Reason: Pain Score 6-10 Sodium Chloride () 250 mls @ 15 mls/hr IV .[id number] PRN PRN Reason: Saline Flush Last Infusion: 06/17/20 16:00 Dose: 0 mls/hr Documented by: Sodium Chloride () 250 mls @ 15 mls/hr IV .[id number] PRN PRN Reason: Additional IVPB Infusion Ceftriaxone Sodium 2 gm/ (Sodium Chloride) 50 mls @ 100 mls/hr IV Q24 [facility] Last Admin: 06/19/20 09:51 Dose: 100 mls/hr Documented by: Magnesium Hydroxide (Milk Of Magnesia) 30 ml PO DAILY PRN PRN PRN Reason: Constipation Melatonin (Melatonin) 3 mg PO QHS PRN PRN PRN Reason: INSOMNIA Metoprolol Tartrate (Lopressor (Beta Katerine)) 25 mg PO BID [facility] Last Admin: 06/19/20 10:05 Dose: Not Given Documented by: Morphine Sulfate (Ms Contin) 15 mg PO BID [facility] Last Admin: 06/19/20 10:05 Dose: Not Given Documented by: Nitroglycerin (Nitrostat) 0.4 mg SUBLINGUAL Q5M PRN PRN Reason: CARDIAC/CHEST PAIN Nutritional [facility] (Rosendo - [place] Flavor[facility] Last Admin: 06/19/20 09:40 Dose: 1 packet Documented by: Nystatin (Mycostatin Powder) 1 applic TOPICAL 0600,2200 [facility]; Protocol Last Admin: 06/19/20 05:06 Dose: Not Given Documented by: Ondansetron HCl (Zofran) 4 mg IV Q8H PRN PRN PRN Reason: NAUSEA/VOMITING Oxycodone HCl (Oxyir) 5 mg PO Q8H PRN PRN Reason: Pain Score 1-10 Last Admin: 06/18/20 11:55 Dose: 5 mg Documented by: Polyethylene Glycol (Miralax) 17 gm PO DAILY PRN PRN PRN Reason: Constipation Prochlorperazine Edisylate (Compazine Iv) 5 mg IV Q4H PRN PRN PRN Reason: Breakthrough Nausea/Vomiting Psyllium Hydrophilic Mucilloid (Metamucil) 1 packet PO DAILY PRN PRN PRN Reason: Constipation Senna/Docusate Sodium (Senokot-S, Yamilex-Colace) 2 tablet PO BID PRN PRN PRN Reason: Constipation Sodium Chloride () 10 - 40 ml IV UD PRN PRN Reason: SALINE FLUSH Last Admin: 06/18/20 04:46 Dose: 10 ml Documented by: Throat Lozenges (Cepacol Sore Throat Lozenge) 1 lozenge MUCOUS MEM Q2H PRN PRN PRN Reason: SORE THROAT Venlafaxine HCl (Effexor Xr) 150 mg PO DAILY [facility] Last Admin: 06/19/20 09:51 Dose: 150 mg Documented by: Venlafaxine HCl (Effexor) 75 mg PO QHS [facility] Last Admin: 06/18/20 21:58 Dose: 75 mg Documented by: Medical Necessity - Tobacco Use Smoking Status: Former smoker Tobacco Use: Non-smoker Route of nutrition/ use of supplements: [] Nutritional Intake: [] IV Site: [] Naqvi Catheter: [] - Assessment/Plan Antibiotics: [] Assessment/Plan: [] Active and Suspected Problems (Last Updated 02/28/20 @ 07:[address] Santosh Nobles MD) Right foot infection (Acute) MSSA R toe osteo - mssa seen by pcr of wound. Now s/p partial R 2nd toe amp by Dr. Montilla on 06/17/20. Clearance cx showing MSSA. Vanc on hold with high troughs, will cancel now; Cr still rising. Cont ceftriaxone. Plan will be for 6 weeks of abx at discharge. With good source control, po abx would be an option. Discussed with her. Has a difficult home situation. I think best option would be ECF for wound care, picc line, and iv ceftriaxone for 6 weeks. If she does well, can always change to po keflex and send her home after a few weeks. Will follow, d/w primary team and case fitter
--- NOTE | 2020-06-19 11:54 | CASEMGMT ---
SW called patient's insurance and obtained her custodial facility benefits. Days 1-20 are covered at 100%. SW met with patient. SW discussed usp option with patient. She is very against nursing homes as she feels they will take her paycheck and home. SW told her SW called her insurance and days 1-20 are covered at 100%. SW asked what she thought about going to a facility for those 20 days to help give her a jump start on healing. She can get IV antibiotics and daily therapy and then go home after the 20 days. She asked if she could do this at home. SW told her it is possible, but she would not get daily therapy. SW also talked with her about [facility] as she has been there before and her daughter asked about this last d/c on the follow up phone call. She told SW to call her daughter and if her daughter agrees then she will go to TCU. ANGLE called her daughter and left her a voice mail requesting a return call. Lorri SHAFER MSW
[2020-06-19] MEDS: Furosemide 40 MG Tablet PO (11:57)
[2020-06-19] MEDS: oxyCODONE 5 MG Tablet PO (11:57)
--- NOTE | 2020-06-19 14:47 | PCM.PN.HOSP ---
<Damian Reed - Last Filed: 06/19/20 14:47> Patient Problems: Active and Suspected Problems (Last Updated 02/28/20 @ 07:[address] Santosh Nobles MD) Right foot infection (Acute) Osteomyelitis (Acute) Reason for Visit: R toe osteo Subjective: Patient resting comfortably in bed no acute distress. She complains of chronic hip pain. She has no fevers or chills. No shortness of breath or cough. No nausea vomiting or diarrhea. She plans to go to the TCU on IV antibiotics at discharge. Vitals/I&O's: Vital Signs Temp Pulse Resp BP Pulse Ox 98.1 F 75 18 119/58 L 100 06/19/20 11:35 06/19/20 11:35 06/19/20 11:35 06/19/20 11:35 06/19/20 11:35 Oxygen Flow Rate (L/min) 4 Oxygen Delivery Method Nasal Cannula Weight: 241 lb 10.026 oz Body Mass Index (BMI) 39.4 Intake and Output for Last 24 Hours 06/17/20 06/18/20 06/19/20 23:59 23:59 23:59 Intake Total 1311.75 / 1531.75 1515 / 1515 650 / 650 Output Total 1100 / 1700 2049 / 2049 1275 / 1275 Balance 211.75 / -168.25 -535 / -535 -625 / -625 General: Alert, Oriented x3, Cooperative HEENT: Atraumatic, PERRLA, EOMI, Normocephalic Neck: Supple, No JVD, Negative Carotid Bruits Lungs: Clear to auscultation, Normal air movement Cardiovascular: Regular rate, No murmurs Abdomen: Bowel Sounds Present, Soft, Non Tender, Obese Extremities: No edema, Capillary Refill Less than 3 Seconds Skin: No rashes, No breakdown Musculoskeletal: No Tenderness to Palpation of Joints or Extremities Neurological: Cranial nerves II-XII grossly intact Psych/Mental Status: Normal Affect, Appropriate, Alert and oriented to time, place, person, mood and affect Microbiology Past 72 Hours 06/17/20 13:20 Other - Other Gram Stain - Final 06/17/20 13:20 Other - Other Wound Culture - Final Staphylococcus aureus 06/16/20 00:01 Skin - Toe Gram Stain - Final 06/16/20 00:01 Skin - Toe Wound Culture - Final Staphylococcus aureus 06/17/20 13:20 Other - Other Gram Stain - Final 06/17/20 13:20 Other - Other Wound Culture - Final Staphylococcus aureus 06/15/20 21:20 Blood Culture (Wb) - Arm Left Blood Culture - Preliminary No growth in 48 hours. 06/15/20 20:50 Blood Culture (Wb) - Anticubital Left Blood Culture - Preliminary No growth in 48 hours. Laboratory Results 06/19/20 06:00: Random Vancomycin 22.3 H 06/19/20 06:00: WBC 8.0, RBC 3.77 L, Hgb 11.2 L, Hct 38.7, MCV 102.7 H, MCH 29.7, MCHC 28.9 L, RDW Std Deviation 52.0 H, RDW Coeff of Ankit 13.7, Plt Count 389, MPV 9.4 06/19/20 06:00: Sodium 138, Potassium 4.0, Chloride 99, Carbon Dioxide 37.0 H, Anion Gap 2 L, BUN 35 H, Creatinine 1.46 H, Estim Creat Clear Calc 32.72, Est GFR (MDRD) Af Amer 46 L, Est GFR (MDRD) Non-Af 38 L, BUN/Creatinine Ratio 24.0 H, Glucose 92, Calcium 8.9 Current Medications Acetaminophen (Tylenol) 1,000 mg PO Q8 [facility] Last Admin: 06/19/20 05:06 Dose: Not Given Documented by: Al Hydroxide/Mg Hydroxide (Mylanta Ii) 30 ml PO Q6H PRN PRN PRN Reason: Gastric Burning Albuterol Sulfate (Ventolin Aerosols) 2.5 mg INHALATION Q2H PRN PRN PRN Reason: Dyspnea, wheezing Enoxaparin Sodium (Lovenox) 40 mg SC DAILY [facility] Last Admin: 06/19/20 09:51 Dose: 40 mg Documented by: Famotidine (Pepcid) 40 mg PO DAILY [facility] Last Admin: 06/19/20 09:54 Dose: 40 mg Documented by: Flecainide Acetate (Tambocor) 150 mg PO BID [facility] Last Admin: 06/19/20 09:55 Dose: 150 mg Documented by: Fluticasone Propionate (Flonase Nasal [place]) 1 spray NASAL DAILY [facility] Last Admin: 10/15/20 09:52 Dose: 1 spray Documented by: Furosemide (Furosemide 40 Mg Tablet) 40 mg PO DAILY [facility] Last Admin: 06/19/20 11:57 Dose: 40 mg Documented by: Guaifenesin (Mucinex) 1,200 mg PO BID [facility] Last Admin: 06/19/20 09:52 Dose: 1,200 mg Documented by: Guaifenesin (Robitussin) 20 ml PO Q4H PRN PRN PRN Reason: COUGH Hydromorphone HCl (Hydromorphone 1 Mg/Ml Syringe) 1 mg IV Q3H PRN PRN PRN Reason: Pain Score 6-10 Sodium Chloride () 250 mls @ 15 mls/hr IV .[id number] PRN PRN Reason: Saline Flush Last Infusion: 06/17/20 16:00 Dose: 0 mls/hr Documented by: Sodium Chloride () 250 mls @ 15 mls/hr IV .[id number] PRN PRN Reason: Additional IVPB Infusion Ceftriaxone Sodium 2 gm/ (Sodium Chloride) 50 mls @ 100 mls/hr IV Q24 [facility] Last Infusion: 06/19/20 11:59 Dose: Infused Documented by: Magnesium Hydroxide (Milk Of Magnesia) 30 ml PO DAILY PRN PRN PRN Reason: Constipation Melatonin (Melatonin) 3 mg PO QHS PRN PRN PRN Reason: INSOMNIA Metoprolol Tartrate (Lopressor (Beta Katerine)) 25 mg PO BID [facility] Last Admin: 06/19/20 10:05 Dose: Not Given Documented by: Morphine Sulfate (Ms Contin) 15 mg PO BID [facility] Last Admin: 06/19/20 10:05 Dose: Not Given Documented by: Nitroglycerin (Nitrostat) 0.4 mg SUBLINGUAL Q5M PRN PRN Reason: CARDIAC/CHEST PAIN Nutritional Formula (Rosendo - [place] Flavor) [facility] Last Admin: 06/19/20 09:40 Dose: 1 packet Documented by: Nystatin (Mycostatin Powder) 1 applic TOPICAL 0600,2200 [facility]; Protocol Last Admin: 06/19/20 05:06 Dose: Not Given Documented by: Ondansetron HCl (Zofran) 4 mg IV Q8H PRN PRN PRN Reason: NAUSEA/VOMITING Oxycodone HCl (Oxyir) 5 mg PO Q8H PRN PRN Reason: Pain Score 1-10 Last Admin: 06/19/20 11:57 Dose: 5 mg Documented by: Polyethylene Glycol (Miralax) 17 gm PO DAILY PRN PRN PRN Reason: Constipation Prochlorperazine Edisylate (Compazine Iv) 5 mg IV Q4H PRN PRN PRN Reason: Breakthrough Nausea/Vomiting Psyllium Hydrophilic Mucilloid (Metamucil) 1 packet PO DAILY PRN PRN PRN Reason: Constipation Senna/Docusate Sodium (Senokot-S, Yamilex-Colace) 2 tablet PO BID PRN PRN PRN Reason: Constipation Sodium Chloride () 10 - 40 ml IV UD PRN PRN Reason: SALINE FLUSH Last Admin: 06/18/20 04:46 Dose: 10 ml Documented by: Throat Lozenges (Cepacol Sore Throat Lozenge) 1 lozenge MUCOUS MEM Q2H PRN PRN PRN Reason: SORE THROAT Venlafaxine HCl (Effexor Xr) 150 mg PO DAILY [facility] Last Admin: 06/19/20 09:51 Dose: 150 mg Documented by: Venlafaxine HCl (Effexor) 75 mg PO QHS [facility] Last Admin: 06/18/20 21:58 Dose: 75 mg Documented by: STROKE Vital Signs/Narrative: Vital Signs Temp Pulse Resp BP Pulse Ox 06/19/20 11:35 98.1 F 75 18 119/58 L 100 06/19/20 11:08 90 Medical Necessity - Tobacco Use Smoking Status: Former smoker Tobacco Use: Non-smoker Assessment/Plan All Active Problems (Last Updated 02/28/20 @ 07:[address] Santosh Nobles MD) Generalized weakness (Acute) Dyspnea (Acute) Patient's noncompliance with other medical treatment and regimen (Acute) Hypoxemia (Acute) COPD exacerbation (Acute) Right foot infection (Acute) Osteomyelitis (Acute) Cellulitis of right lower extremity (Acute) Sepsis (Acute) Chronic combined systolic and diastolic CHF (congestive heart failure) (Acute) 1. Right second toe osteomyelitis-status post debridement/partial amputation on 06/17/[address] Montilla. Bone culture demonstrates staph aureus, MSSA. Blood cultures negative. Fungal cultures pending. Anaerobic culture pending. Infectious diseases following and plans for 6 weeks of IV antibiotics with ceftriaxone. Patient is agreeable to going to nursing facility-TCU, at discharge for IV antibiotic therapy, wound care, and physical therapy. Afebrile / no leukocytosis. Duplex negative for DVT. 2. Acute on chronic mixed congestive heart failure-acute phase resolved. Today's dose of Lasix was held due to worsening renal function and elevated CO2. We will plan to resume Lasix tomorrow at her home dose if her kidney function is stable. 3. CKD 3-renal function trend shows worsening of underlying kidney disease, hold Lasix today. Recheck in the morning. 4. Paroxysmal atrial fibrillation continue home meds, rate controlled. 5. Chronic hip pain-on oral morphine twice daily, oxycodone q8hprn, venlafaxine, Tylenol 6. 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-dietitian consult 7. Debility - PTOT evals 8. Chronic macrocytic anemia - mild. platelets normal. DVT ppx: lovenox DC planning: TCU tomorrow. This patient was seen by Damian Reed PA-C under the supervision of Dr. Kapoor. <Tata Kapoor - Last Filed: 06/19/20 17:20> Subjective: No issues overnight. Pt hesitant about going to SNF but we discussed that this would be the best option for her to get better and get the OPTIMAL treatment. Vitals/I&O's: Vital Signs Temp Pulse Resp BP Pulse Ox 98.1 F 73 18 119/58 L 100 06/19/20 11:35 06/19/20 15:00 06/19/20 11:35 06/19/20 11:35 06/19/20 11:35 Oxygen Flow Rate (L/min) 4 Oxygen Delivery Method Nasal Cannula Weight: 109.6 kg Body Mass Index (BMI) 39.4 Intake and Output for Last 24 Hours 06/17/20 06/18/20 06/19/20 23:59 23:59 23:59 Intake Total 1311.75 / 1531.75 1515 / 1515 650 / 650 Output Total 1100 / 1700 2049 / 2049 1275 / 1275 Balance 211.75 / -168.25 -535 / -535 -625 / -625 General: Alert, Oriented x3, Cooperative, No apparent distress, Well developed, Well nourished, - - MO WF sitting up in a chair, appears much older than stated age HEENT: Atraumatic, PERRLA, EOMI, Normocephalic Oral: Moist Mucosa Neck: Supple Lungs: Clear to auscultation, No rhonchi, No wheeze, No rales, Diminished Cardiovascular: Regular rate, Regular Rhythm, Normal S1, Normal S2, No murmurs, No Ectopic Activity, No rub noted, No Gallop Abdomen: Bowel Sounds Present, Soft, Non Tender, Non-Distended, Obese, No hernias noted Extremities: No clubbing, No cyanosis, No edema, Capillary Refill Less than 3 Seconds Skin: - - L Foot with dressing in place Neurological: Cranial nerves II-XII grossly intact, Neuro grossly intact Psych/Mental Status: Appropriate, Agitated Microbiology Past 72 Hours 06/17/20 13:20 Other - Other Gram Stain - Final 06/17/20 13:20 Other - Other Wound Culture - Final Staphylococcus aureus 06/16/20 00:01 Skin - Toe Gram Stain - Final 06/16/20 00:01 Skin - Toe Wound Culture - Final Staphylococcus aureus 06/17/20 13:20 Other - Other Gram Stain - Final 06/17/20 13:20 Other - Other Wound Culture - Final Staphylococcus aureus 06/15/20 21:20 Blood Culture (Wb) - Arm Left Blood Culture - Preliminary No growth in 48 hours. 06/15/20 20:50 Blood Culture (Wb) - Anticubital Left Blood Culture - Preliminary No growth in 48 hours. Laboratory Results 06/19/20 06:00: Random Vancomycin 22.3 H 06/19/20 06:00: WBC 8.0, RBC 3.77 L, Hgb 11.2 L, Hct 38.7, MCV 102.7 H, MCH 29.7, MCHC 28.9 L, RDW Std Deviation 52.0 H, RDW Coeff of Ankit 13.7, Plt Count 389, MPV 9.4 06/19/20 06:00: Sodium 138, Potassium 4.0, Chloride 99, Carbon Dioxide 37.0 H, Anion Gap 2 L, BUN 35 H, Creatinine 1.46 H, Estim Creat Clear Calc 32.72, Est GFR (MDRD) Af Amer 46 L, Est GFR (MDRD) Non-Af 38 L, BUN/Creatinine Ratio 24.0 H, Glucose 92, Calcium 8.9 Current Medications Acetaminophen (Tylenol) 1,000 mg PO Q8 [facility] Last Admin: 06/19/20 14:59 Dose: 1,000 mg Documented by: Al Hydroxide/Mg Hydroxide (Mylanta Ii) 30 ml PO Q6H PRN PRN PRN Reason: Gastric Burning Albuterol Sulfate (Ventolin Aerosols) 2.5 mg INHALATION Q2H PRN PRN PRN Reason: Dyspnea, wheezing Enoxaparin Sodium (Lovenox) 40 mg SC DAILY [facility] Last Admin: 06/19/20 09:51 Dose: 40 mg Documented by: Famotidine (Pepcid) 40 mg PO DAILY [facility] Last Admin: 06/19/20 09:54 Dose: 40 mg Documented by: Flecainide Acetate (Tambocor) 150 mg PO BID [facility] Last Admin: 06/19/20 09:55 Dose: 150 mg Documented by: Fluticasone Propionate (Flonase Nasal [place]) 1 spray NASAL DAILY [facility] Last Admin: 06/19/20 09:52 Dose: 1 spray Documented by: Furosemide (Furosemide 40 Mg Tablet) 40 mg PO DAILY [facility] Last Admin: 06/19/20 11:57 Dose: 40 mg Documented by: Guaifenesin (Mucinex) 1,200 mg PO BID [facility] Last Admin: 06/19/20 09:52 Dose: 1,200 mg Documented by: Guaifenesin (Robitussin) 20 ml PO Q4H PRN PRN PRN Reason: COUGH Sodium Chloride () 250 mls @ 15 mls/hr IV .[id number] PRN PRN Reason: Saline Flush Last Infusion: 06/17/20 16:00 Dose: 0 mls/hr Documented by: Sodium Chloride () 250 mls @ 15 mls/hr IV .[id number] PRN PRN Reason: Additional IVPB Infusion Ceftriaxone Sodium 2 gm/ (Sodium Chloride) 50 mls @ 100 mls/hr IV Q24 [facility] Last Infusion: 06/19/20 11:59 Dose: Infused Documented by: Magnesium Hydroxide (Milk Of Magnesia) 30 ml PO DAILY PRN PRN PRN Reason: Constipation Melatonin (Melatonin) 3 mg PO QHS PRN PRN PRN Reason: INSOMNIA Metoprolol Tartrate (Lopressor (Beta Katerine)) 25 mg PO BID [facility] Last Admin: 06/19/20 10:05 Dose: Not Given Documented by: Morphine Sulfate (Ms Contin) 15 mg PO BID [facility] Last Admin: 06/19/20 10:05 Dose: Not Given Documented by: Nitroglycerin (Nitrostat) 0.4 mg SUBLINGUAL Q5M PRN PRN Reason: CARDIAC/CHEST PAIN Nutritional Formula (Rosendo - [place] Flavor) [facility] Last Admin: 06/19/20 09:40 Dose: 1 packet Documented by: Nystatin (Mycostatin Powder) 1 applic TOPICAL 0600,2200 [facility]; Protocol Last Admin: 06/19/20 05:06 Dose: Not Given Documented by: Ondansetron HCl (Zofran) 4 mg IV Q8H PRN PRN PRN Reason: NAUSEA/VOMITING Oxycodone HCl (Oxyir) 5 mg PO Q8H PRN PRN Reason: Pain Score 1-10 Last Admin: 06/19/20 11:57 Dose: 5 mg Documented by: Polyethylene Glycol (Miralax) 17 gm PO DAILY PRN PRN PRN Reason: Constipation Prochlorperazine Edisylate (Compazine Iv) 5 mg IV Q4H PRN PRN PRN Reason: Breakthrough Nausea/Vomiting Psyllium Hydrophilic Mucilloid (Metamucil) 1 packet PO DAILY PRN PRN PRN Reason: Constipation Senna/Docusate Sodium (Senokot-S, Yamilex-Colace) 2 tablet PO BID PRN PRN PRN Reason: Constipation Sodium Chloride () 10 - 40 ml IV UD PRN PRN Reason: SALINE FLUSH Last Admin: 06/18/20 04:46 Dose: 10 ml Documented by: Throat Lozenges (Cepacol Sore Throat Lozenge) 1 lozenge MUCOUS MEM Q2H PRN PRN PRN Reason: SORE THROAT Venlafaxine HCl (Effexor Xr) 150 mg PO DAILY [facility] Last Admin: 06/19/20 09:51 Dose: 150 mg Documented by: Venlafaxine HCl (Effexor) 75 mg PO QHS [facility] Last Admin: 06/18/20 21:58 Dose: 75 mg Documented by: STROKE Vital Signs/Narrative: Vital Signs Pulse 06/19/20 15:00 73 Assessment/Plan I agree with the above and the following reflects my own independent history and physical exam ASSESSMENT Acute on Chronic Hypoxic Respiratory Failure-Multifactorial (decompensated HFrEF, COPD, ESPERANZA, OHS) OM R 2nd digit Leukocytosis-resolved Metabolic Encephalopathy CKD stage 3 Chronic Anemia PAF HPL HTN GERD H/O DVT-remote Chronic Pain 2/2 LBP Depression/Anxiety MO PLAN -Respiratory status remains at baseline and pt is on 4 L -continue PO lasix -sCr is up a bit--> hold lasix today and restart daily dosing tomorrow/Vanc on hold -OR 06/17 and debridement complete -S. Aureus--> MSSA -blood cx neg -CTX per ID and would like 6 weeks -will order PICC for tomorrow as pt is agreeable to TCU at d/c and may be able to go tomorrow Inpatient E&M: 20812 Subs Hosp L2
[2020-06-19] MEDS: Acetaminophen 500 MG Tablet 1000 MG PO ×2 (14:59→21:10)
--- NOTE | 2020-06-19 16:08 | CASEMGMT ---
ANGLE spoke with patient and her daughter and they both agree for patient to go to TCU. ANGLE told them about the 14 day quarantine and they were upset, but understand. ANGLE submitted everything to [facility] and they gave the approval to proceed with requesting pre-cert. ANGLE spoke with Geraldine and the pre-cert was started. Plan: TCU pending pre-cert. Lorri HERRERA
--- NOTE | 2020-06-19 19:05 | PCM.PROGNOTE ---
Patient Problems: Active and Suspected Problems (Last Updated 02/28/20 @ 07:[address] Santosh Nobles MD) Right foot infection (Acute) Osteomyelitis (Acute) Subjective: Patient was seen today for follow up on right foot. She relates pain is less and getting better. She has no new complaints. She does not have complaints of fever, chills, nausea or vomiting. Her daughter is at bedside. - Physical Exam Vitals/I&O's: Vital Signs Temp Pulse Resp BP Pulse Ox 97.9 F 71 18 110/44 L 97 06/19/20 18:00 06/19/20 18:00 06/19/20 18:00 06/19/20 18:00 06/19/20 18:00 Oxygen Flow Rate (L/min) 4 Oxygen Delivery Method Nasal Cannula Weight: 109.6 kg Body Mass Index (BMI) 39.4 Intake and Output for Last 24 Hours 06/17/20 06/18/20 06/19/20 23:59 23:59 23:59 Intake Total 1311.75 / 1531.75 1515 / 1515 890 / 890 Output Total 1100 / 1700 2050 / 2050 1850 / 1850 Balance 211.75 / -168.25 -535 / -535 -960 / -960 General: Alert, Oriented x3, Cooperative, No apparent distress Extremities: Capillary Refill Less than 3 Seconds, No Calf Tenderness, Peripheral Pulses Normal, - - there is some tenderness to the right 2nd toe c/w normal course, No Calf Tenderness, Peripheral Pulses Normal, - - s/p right 2nd toe debridement with sutures intact with skin well coapted, there is some residual erythema to the forefoot but improved, no drainage, no visible abscess, no streaking Microbiology Past 72 Hours 06/17/20 13:20 Other - Other Gram Stain - Final 06/17/20 13:20 Other - Other Wound Culture - Final Staphylococcus aureus 06/16/20 00:01 Skin - Toe Gram Stain - Final 06/16/20 00:01 Skin - Toe Wound Culture - Final Staphylococcus aureus 06/17/20 13:20 Other - Other Gram Stain - Final 06/17/20 13:20 Other - Other Wound Culture - Final Staphylococcus aureus 06/15/20 21:20 Blood Culture (Wb) - Arm Left Blood Culture - Preliminary No growth in 48 hours. 06/15/20 20:50 Blood Culture (Wb) - Anticubital Left Blood Culture - Preliminary No growth in 48 hours. Laboratory Results 06/19/20 06:00: Random Vancomycin 22.3 H 06/19/20 06:00: WBC 8.0, RBC 3.77 L, Hgb 11.2 L, Hct 38.7, MCV 102.7 H, MCH 29.7, MCHC 28.9 L, RDW Std Deviation 52.0 H, RDW Coeff of Ankit 13.7, Plt Count 389, MPV 9.4 06/19/20 06:00: Sodium 138, Potassium 4.0, Chloride 99, Carbon Dioxide 37.0 H, Anion Gap 2 L, BUN 35 H, Creatinine 1.46 H, Estim Creat Clear Calc 32.72, Est GFR (MDRD) Af Amer 46 L, Est GFR (MDRD) Non-Af 38 L, BUN/Creatinine Ratio 24.0 H, Glucose 92, Calcium 8.9 Current Medications Acetaminophen (Tylenol) 1,000 mg PO Q8 [facility] Last Admin: 06/19/20 14:59 Dose: 1,000 mg Documented by: Al Hydroxide/Mg Hydroxide (Mylanta Ii) 30 ml PO Q6H PRN PRN PRN Reason: Gastric Burning Albuterol Sulfate (Ventolin Aerosols) 2.5 mg INHALATION Q2H PRN PRN PRN Reason: Dyspnea, wheezing Enoxaparin Sodium (Lovenox) 40 mg SC DAILY [facility] Last Admin: 06/19/20 09:51 Dose: 40 mg Documented by: Famotidine (Pepcid) 40 mg PO DAILY [facility] Last Admin: 06/19/20 09:54 Dose: 40 mg Documented by: Flecainide Acetate (Tambocor) 150 mg PO BID [facility] Last Admin: 06/19/20 09:55 Dose: 150 mg Documented by: Fluticasone Propionate (Flonase Nasal [place]) 1 spray NASAL DAILY [facility] Last Admin: 06/19/20 09:52 Dose: 1 spray Documented by: Furosemide (Furosemide 40 Mg Tablet) 40 mg PO DAILY [facility] Last Admin: 06/19/20 11:57 Dose: 40 mg Documented by: Guaifenesin (Mucinex) 1,200 mg PO BID [facility] Last Admin: 06/19/20 09:52 Dose: 1,200 mg Documented by: Guaifenesin (Robitussin) 20 ml PO Q4H PRN PRN PRN Reason: COUGH Sodium Chloride () 250 mls @ 15 mls/hr IV .[id number] PRN PRN Reason: Saline Flush Last Infusion: 06/17/20 16:00 Dose: 0 mls/hr Documented by: Sodium Chloride () 250 mls @ 15 mls/hr IV .[id number] PRN PRN Reason: Additional IVPB Infusion Ceftriaxone Sodium 2 gm/ (Sodium Chloride) 50 mls @ 100 mls/hr IV Q24 [facility] Last Infusion: 06/19/20 11:59 Dose: Infused Documented by: Magnesium Hydroxide (Milk Of Magnesia) 30 ml PO DAILY PRN PRN PRN Reason: Constipation Melatonin (Melatonin) 3 mg PO QHS PRN PRN PRN Reason: INSOMNIA Metoprolol Tartrate (Lopressor (Beta Katerine)) 25 mg PO BID [facility] Last Admin: 06/19/20 10:05 Dose: Not Given Documented by: Morphine Sulfate (Ms Contin) 15 mg PO BID [facility] Last Admin: 06/19/20 10:05 Dose: Not Given Documented by: Nitroglycerin (Nitrostat) 0.4 mg SUBLINGUAL Q5M PRN PRN Reason: CARDIAC/CHEST PAIN Nutritional Formula (Rosendo - [place] Flavor) [facility] Last Admin: 06/19/20 18:29 Dose: 1 packet Documented by: Nystatin (Mycostatin Powder) 1 applic TOPICAL 0600,2200 [facility]; Protocol Last Admin: 06/19/20 05:06 Dose: Not Given Documented by: Ondansetron HCl (Zofran) 4 mg IV Q8H PRN PRN PRN Reason: NAUSEA/VOMITING Oxycodone HCl (Oxyir) 5 mg PO Q8H PRN PRN Reason: Pain Score 1-10 Last Admin: 06/19/20 11:57 Dose: 5 mg Documented by: Polyethylene Glycol (Miralax) 17 gm PO DAILY PRN PRN PRN Reason: Constipation Prochlorperazine Edisylate (Compazine Iv) 5 mg IV Q4H PRN PRN PRN Reason: Breakthrough Nausea/Vomiting Psyllium Hydrophilic Mucilloid (Metamucil) 1 packet PO DAILY PRN PRN PRN Reason: Constipation Senna/Docusate Sodium (Senokot-S, Yamilex-Colace) 2 tablet PO BID PRN PRN PRN Reason: Constipation Sodium Chloride () 10 - 40 ml IV UD PRN PRN Reason: SALINE FLUSH Last Admin: 06/18/20 04:46 Dose: 10 ml Documented by: Throat Lozenges (Cepacol Sore Throat Lozenge) 1 lozenge MUCOUS MEM Q2H PRN PRN PRN Reason: SORE THROAT Venlafaxine HCl (Effexor Xr) 150 mg PO DAILY [facility] Last Admin: 06/19/20 09:51 Dose: 150 mg Documented by: Venlafaxine HCl (Effexor) 75 mg PO QHS [facility] Last Admin: 06/18/20 21:58 Dose: 75 mg Documented by: Medical Necessity - Tobacco Use Smoking Status: Former smoker Tobacco Use: Non-smoker Assessment/Plan All Active Problems (Last Updated 02/28/20 @ 07:[address] Santosh Nobles MD) Generalized weakness (Acute) Dyspnea (Acute) Patient's noncompliance with other medical treatment and regimen (Acute) Hypoxemia (Acute) COPD exacerbation (Acute) Right foot infection (Acute) Osteomyelitis (Acute) Cellulitis of right lower extremity (Acute) Sepsis (Acute) Chronic combined systolic and diastolic CHF (congestive heart failure) (Acute) Ulceration right dorsal 2nd toe down to bone s/p debridement on 06/17/2020 Osteomyelitis right 2nd toe Cellulitis right forefoot Hammer toe, right Multiple comorbidities Right foot improving, s/p debridement. Wound culture with staph aureus, MRSA DNA PCR negative. Surgical cultures + as well, patient on antibiotic therapy with Dr. Saavedra consulted. Patient did have LEAS in February which showed no arterial occlusive disease. Clinically there is no evidence of ischemia to the foot or ankle. Changed dressing today - painted w/ betadine soln, applied gauze, kerlix and carey. No weightbearing to right forefoot, ok for heel weightbearing. Keep right foot elevated. Podiatry will continue to follow.
[2020-06-19] MEDS: morphine SR 15 MG Tablet PO (21:10)
[2020-06-19] MEDS: Metoprolol Tartrate 25 MG Tablet PO (21:10)
[2020-06-19] MEDS: Venlafaxine HCl 75 MG Tablet PO (21:13)
--- NOTE | 2020-06-19 23:51 | NURSING ---
Pt soapstoner light requesting RN back to room. Upon entering the room this nurse asked pt what she needed, pt laughed and said why's there a baby on your head?'' This nurse reassured pt there was no baby on her head and reoriented pt. Pt immediately became restless saying she was uncomfortable, and needed to get up and walk. Asked pt if it was okay to reposition her instead of walking d/t late hour. Pt upset, saying that ''they came in here and messed with her oxygen'' Advised pt this nurse put her oxygen back on pt when she was last in the room. Pt became mad and started swinging her fists saying that she was wrapped up in too many wires and needed to go home if we were not going to help her. THis nurse called HYDRAULIC ROCKBREAKER OPERATOR and other RN to bedside to help with pt as she began yelling and swinging her fists. Multiple HYDRAULIC ROCKBREAKER OPERATOR and RN in room attempting to calm pt down and reposition. Pt unhappy and yelling at all trying to help. Pt is confused, talking about cats on the ceiling and forgetful. Eventually pt was calmed down and repositioned, bed alarm on. Will continue to monitor. Marcia, RN
[2020-06-20] VITALS (10 sets, daily range): BP systolic 95–118; BP diastolic 44–61; PULSE 63–71; RESP 16–20; TEMP 36.7–36.9; O2SAT 90–96
[2020-06-20] MEDS: oxyCODONE 5 MG Tablet PO (00:21)
[2020-06-20] MEDS: MELATONIN 3 MG TABLET PO (00:22)
[2020-06-20] MEDS: Haloperidol Lactate 5 MG/ML Vial 1 MG IM (02:01)
--- NOTE | 2020-06-20 06:00 | NURSING ---
Addendum entered by Siobhan Og 06/20/20 06:38: Pt had also requested that this nurse write her name down for her. This nurse provided first name written on white board and piece of paper for pt to keep. DARLING Kennedy Original Note: This nurse entered room with grain receiver when pt heard yelling out down hallway. Pt had heart monitor and oxygen off. At this point pt is pleasant, states that she needs help getting straightened out and cleaned up, she is wet. As JOURNEYMAN PRESS OPERATOR and RN worked to get pt back to bed and cleaned up pt became agitated with care, stating that we were not being kind to her and hurting her. Assured pt that staff was not trying to hurt her, but clean her up. Meanwhile pt yelling at and pointing to ''Samantha'' in the red shirt in the corner. Reassured pt that there was noone in the corner, and her daughter, Samantha, would be in later today as it was not visiting hours. Pt still adamant that daughter was in the room with her, after showing pt all objects in room and telling her what they were, pt satisfied that there was no Samantha in the room. Pt still agitated with care, and yelling, then becomes weepy. Tylenol given and attempted to reassure, and deescalate pt multiple times. Eventually pt just wanted to be left alone. Bed alarm set and room camera on. Will continue to monitor. DARLING Kennedy
[2020-06-20] MEDS: Acetaminophen 500 MG Tablet 1000 MG PO ×2 (06:13→15:16)
[2020-06-20 06:37] LABS: Absolute Neutrophil Count 5.6 X10^3/uL (2.0-7.7); Basophil# 0.05 X10^3/uL; Basophil% 0.6 % (0-1); Eosinophil# 0.25 X10^3/uL; Eosinophils% 3.1 % (0-5); Hematocrit 38.8 % (37-47); Hemoglobin 11.4 g/dL (12.0-15.0); Lymphocyte % 17.5 % (19-41); Mean Corp Hgb Conc 29.4 g/dL (32-36); Mean Corpuscular Hgb 29.6 pg (27.0-32.0); Mean Corpuscular Volume 100.8 fL (81-99); Mean Platelet Vol. 9.4 fl (6.2-12.0); Monocyte% 8.8 % (0-10); NRBC Flagged by Analyzer 0 % (0-5); Neutrophil # 5.55 X10^3/uL (2.7-7.7); Neutrophil % 69.5 % (47-70); Platelet Count 403 K/mm3 (150-450); RBC Distribution Width CV 13.7 % (11.6-14.6); RBC Distribution Width SD 50.4 fl (35.1-43.9); Red Blood Count 3.85 M/mm3 (4.2-5.4)
[2020-06-20 06:53] LABS: Anion Gap 1 (5-15); BUN 35 mg/dL (7-18); BUN/Creat Ratio 28.2 RATIO (10-20); Calcium,Total 9.5 mg/dL (8.5-10.1); Chloride 100 mmol/L (98-107); Creatinine, Serum 1.24 mg/dL (0.55-1.02); EST Glomerular Filtration Rate 46 mL/min (>60); Est Glom Filt Rate - Afr Amer 55 mL/min (>60); Estimated Creatinine Clearance 38.53 ml/min; Glucose 96 mg/dL (74-106); Potassium 3.7 mmol/L (3.5-5.1); Sodium Level 138 mmol/L (136-145)
[2020-06-20] MEDS: Flecainide 150 MG Tablet PO (09:32)
[2020-06-20] MEDS: Venlafaxine XR 150 MG Capsule PO (09:32)
[2020-06-20] MEDS: guaiFENesin 1,200 MG Tablet 1200 MG PO (09:32)
[2020-06-20] MEDS: morphine SR 15 MG Tablet PO (09:32)
[2020-06-20] MEDS: Famotidine 20 MG Tablet 40 MG PO (09:32)
[2020-06-20] MEDS: Fluticasone 0.05% 1 SPRAY NASAL.SRY NASAL (09:36)
[2020-06-20] MEDS: Enoxaparin 40 MG/0.4 ML Syringe SC (09:37)
--- NOTE | 2020-06-20 11:03 | PCM.EXTCARCO ---
- Diet 06/17/20 13:39 Diet: Cardiac - Heart Healthy Dietary Modifications:: Sodium Restricted Is pt able to select menu?: No - Routine Orders/Code Status Suppository Type: Dulcolax 10mg Suppository Frequency: Daily PRN O2 Frequency: Continuous Keep PO Greater than or Equal to (%): 89 Routine Lab Work: CBC - 3 days, BMP - 3 days Code Status: Full Code - Wound(s) rt foot (2nd toe) Wound Type: Surgical Incision Dressing Change: Dry Sterile Dressing - Therapies Weight Bearing: Partial weight bearing Physical Therapy: Eval and Treat Occupational Therapy: Eval and Treat - Problem/Diagnosis (1) Osteomyelitis Status: Acute (2) Right foot infection Status: Acute (3) Chronic combined systolic and diastolic CHF (congestive heart failure) Status: Acute (4) Generalized weakness Status: Acute (5) Anxiety Status: Chronic (6) Asthma Status: Chronic (7) CHF exacerbation Status: Chronic (8) COPD (chronic obstructive pulmonary disease) Status: Chronic (9) Cardiomyopathy, dilated Status: Chronic (10) Chronic respiratory failure with hypoxia Status: Chronic (11) GERD (gastroesophageal reflux disease) Status: Chronic (12) Hypertension Status: Chronic (13) ESPERANZA (obstructive sleep apnea) Status: Chronic (14) Osteoarthritis Status: Chronic (15) Paroxysmal atrial fibrillation Status: Chronic (16) Pulmonary nodules Status: Chronic (17) Restless leg syndrome Status: Chronic (18) Vitamin D deficiency Status: Chronic - Allergies/Procedures Done in Hospital Allergies/Adverse Reactions: Allergies doxycycline Allergy (Severe, Verified 06/15/20 19:58) ulcerations of lips and mouth gabapentin Adverse Reaction (Severe, Verified 06/15/20 19:58) GI upset, Vomiting ciprofloxacin [From Cipro] Adverse Reaction (Intermediate, Verified 06/15/20 19:58) Other messes with her heart medicine Procedures: 2-D Echocardiogram - Type of Care/Length of Stay Estimated LOS: Convalescent Care Less Than 30 days Type of Care Needed: Skilled Rehab Potential: Fair Prognosis: Fair - Additional Orders/Day of Discharge Day of Discharge: 06/20/20 - Dietary and Speech Recommendations Dietitian Recommendations/Changes: Continue current Cardiac sodium restricted diet w/ fluid restriction as indicated. Will continue Rosendo BID for wound healing. - Follow Up Care Primary Care Physician: Darinel Callejas Chi, MD [Primary Care Provider] - Please follow up with your Primary Care Physician in: 2 weeks Please Follow Up With: Zaheer Montilla DPM - podiatry When: 1 week Please Follow Up With: Carroll Mercado MD When: 4 weeks
[2020-06-20] MEDS: Furosemide 40 MG Tablet PO (12:14)
--- NOTE | 2020-06-20 13:15 | CASEMGMT ---
ANGLE received a call from Helene and insurance approved patient. ANGLE notified physician. ANGLE copied med list and placed in packet. ANGLE spoke with patient and her daughter letting them know that she can keep her Pain Management appt on Tuesday. Plan: d/c to [facility] TCU under skilled level of care. Lorri HERRERA
--- NOTE | 2020-06-20 13:49 | PCM.PROGNOTE ---
Patient Problems: Active and Suspected Problems (Last Updated 02/28/20 @ 07:[address] Santosh Nobles MD) Generalized weakness (Acute) Right foot infection (Acute) Osteomyelitis (Acute) Chronic combined systolic and diastolic CHF (congestive heart failure) (Acute) Subjective: Patient was seen today for follow up. Planning to go to TCU today. No new complaints, foot is feeling much better, no complaints of fever, chills, nausea or vomiting. Patient's daughter and grand daughter at bedside. Objective: there is some tenderness to the right 2nd toe c/w normal course - improved, No Calf Tenderness, Peripheral Pulses Normal, - - s/p right 2nd toe debridement with sutures intact with skin well coapted, there is some residual erythema to the forefoot but continued improvement noted, no drainage, no visible abscess, no streaking - Physical Exam Vitals/I&O's: Vital Signs Temp Pulse Resp BP Pulse Ox 98.1 F 69 18 118/59 L 94 06/20/20 12:10 06/20/20 12:10 06/20/20 12:10 06/20/20 12:10 06/20/20 12:10 Oxygen Flow Rate (L/min) 4 Oxygen Delivery Method Nasal Cannula Weight: 107.8 kg Body Mass Index (BMI) 39.4 Intake and Output for Last 24 Hours 06/18/20 06/19/20 06/20/20 23:59 23:59 23:59 Intake Total 1515 / 1515 1130 / 1130 495 / 495 Output Total 2049 / 2049 2350 / 2350 400 / 400 Balance -535 / -535 -1220 / -1220 95 / 95 General: Alert, Oriented x3, Cooperative, No apparent distress Extremities: No cyanosis, Capillary Refill Less than 3 Seconds, - - No evidence of ischemia to the foot, right. Microbiology Past 72 Hours 06/17/20 13:20 Other - Other Gram Stain - Final 06/17/20 13:20 Other - Other Wound Culture - Final Staphylococcus aureus 06/17/20 13:20 Other - Other Anaerobic Culture - Final No anaerobic bacteria isolated. 06/17/20 13:20 Other - Other Gram Stain - Final 06/17/20 13:20 Other - Other Wound Culture - Final Staphylococcus aureus 06/17/20 13:20 Other - Other Anaerobic Culture - Final No anaerobic bacteria isolated. 06/16/20 00:01 Skin - Toe Gram Stain - Final 06/16/20 00:01 Skin - Toe Wound Culture - Final Staphylococcus aureus 06/15/20 21:20 Blood Culture (Wb) - Arm Left Blood Culture - Preliminary No growth in 48 hours. 06/15/20 20:50 Blood Culture (Wb) - Anticubital Left Blood Culture - Preliminary No growth in 48 hours. Laboratory Results 06/20/20 06:25: WBC 8.0, RBC 3.85 L, Hgb 11.4 L, Hct 38.8, MCV 100.8 H, MCH 29.6, MCHC 29.4 L, RDW Std Deviation 50.4 H, RDW Coeff of Ankit 13.7, Plt Count 403, MPV 9.4, Immature Gran % (Auto) 0.500, Neut % (Auto) 69.5, Lymph % (Auto) 17.5 L, [place] % (Auto) 8.8, Eos % (Auto) 3.1, Baso % (Auto) 0.6, Absolute Neuts (auto) 5.6, Absolute Lymphs (auto) 1.40, Nucleated RBC % 0 06/20/20 06:25: Sodium 138, Potassium 3.7, Chloride 100, Carbon Dioxide 37.0 H, Anion Gap 1 L, BUN 35 H, Creatinine 1.24 H, Estim Creat Clear Calc 38.53, Est GFR (MDRD) Af Amer 55 L, Est GFR (MDRD) Non-Af 46 L, BUN/Creatinine Ratio 28.2 H, Glucose 96, Calcium 9.5 Current Medications Acetaminophen (Tylenol) 1,000 mg PO Q8 [facility] Last Admin: 06/20/20 06:13 Dose: 1,000 mg Documented by: Al Hydroxide/Mg Hydroxide (Mylanta Ii) 30 ml PO Q6H PRN PRN PRN Reason: Gastric Burning Albuterol Sulfate (Ventolin Aerosols) 2.5 mg INHALATION Q2H PRN PRN PRN Reason: Dyspnea, wheezing Enoxaparin Sodium (Lovenox) 40 mg SC DAILY [facility] Last Admin: 06/20/20 09:37 Dose: 40 mg Documented by: Famotidine (Pepcid) 40 mg PO DAILY [facility] Last Admin: 06/20/20 09:32 Dose: 40 mg Documented by: Flecainide Acetate (Tambocor) 150 mg PO BID [facility] Last Admin: 06/20/20 09:32 Dose: 150 mg Documented by: Fluticasone Propionate (Flonase Nasal [place]) 1 spray NASAL DAILY [facility] Last Admin: 06/20/20 09:36 Dose: 1 spray Documented by: Furosemide (Furosemide 40 Mg Tablet) 40 mg PO DAILY [facility] Last Admin: 06/20/20 12:14 Dose: 40 mg Documented by: Guaifenesin (Mucinex) 1,200 mg PO BID [facility] Last Admin: 06/20/20 09:32 Dose: 1,200 mg Documented by: Guaifenesin (Robitussin) 20 ml PO Q4H PRN PRN PRN Reason: COUGH Haloperidol Lactate (Haloperidol Lactate 5 Mg/Ml Vial) 1 mg IM Q4H PRN PRN PRN Reason: AGITATION Last Admin: 06/20/20 02:01 Dose: 1 mg Documented by: Sodium Chloride () 250 mls @ 15 mls/hr IV .[id number] PRN PRN Reason: Saline Flush Last Infusion: 06/17/20 16:00 Dose: 0 mls/hr Documented by: Sodium Chloride () 250 mls @ 15 mls/hr IV .[id number] PRN PRN Reason: Additional IVPB Infusion Ceftriaxone Sodium 2 gm/ (Sodium Chloride) 50 mls @ 100 mls/hr IV Q24 [facility] Last Infusion: 06/19/20 11:59 Dose: Infused Documented by: Magnesium Hydroxide (Milk Of Magnesia) 30 ml PO DAILY PRN PRN PRN Reason: Constipation Melatonin (Melatonin) 3 mg PO QHS PRN PRN PRN Reason: INSOMNIA Last Admin: 06/20/20 00:22 Dose: 3 mg Documented by: Metoprolol Tartrate (Lopressor (Beta Katerine)) 25 mg PO BID [facility] Last Admin: 06/20/20 09:33 Dose: Not Given Documented by: Morphine Sulfate (Ms Contin) 15 mg PO BID [facility] Last Admin: 06/20/20 09:32 Dose: 15 mg Documented by: Nitroglycerin (Nitrostat) 0.4 mg SUBLINGUAL Q5M PRN PRN Reason: CARDIAC/CHEST PAIN Nutritional Formula (Rosendo - [place] Flavor) [facility] Last Admin: 06/20/20 09:36 Dose: Not Given Documented by: Nystatin (Mycostatin Powder) 1 applic TOPICAL 0600,2200 [facility]; Protocol Last Admin: 06/20/20 06:14 Dose: Not Given Documented by: Ondansetron HCl (Zofran) 4 mg IV Q8H PRN PRN PRN Reason: NAUSEA/VOMITING Oxycodone HCl (Oxyir) 5 mg PO Q8H PRN PRN Reason: Pain Score 1-10 Last Admin: 06/20/20 00:21 Dose: 5 mg Documented by: Polyethylene Glycol (Miralax) 17 gm PO DAILY PRN PRN PRN Reason: Constipation Prochlorperazine Edisylate (Compazine Iv) 5 mg IV Q4H PRN PRN PRN Reason: Breakthrough Nausea/Vomiting Psyllium Hydrophilic Mucilloid (Metamucil) 1 packet PO DAILY PRN PRN PRN Reason: Constipation Senna/Docusate Sodium (Senokot-S, Yamilex-Colace) 2 tablet PO BID PRN PRN PRN Reason: Constipation Sodium Chloride () 10 - 40 ml IV UD PRN PRN Reason: SALINE FLUSH Last Admin: 06/18/20 04:46 Dose: 10 ml Documented by: Throat Lozenges (Cepacol Sore Throat Lozenge) 1 lozenge MUCOUS MEM Q2H PRN PRN PRN Reason: SORE THROAT Venlafaxine HCl (Effexor Xr) 150 mg PO DAILY [facility] Last Admin: 06/20/20 09:32 Dose: 150 mg Documented by: Venlafaxine HCl (Effexor) 75 mg PO QHS [facility] Last Admin: 06/19/20 21:13 Dose: 75 mg Documented by: Medical Necessity - Tobacco Use Smoking Status: Former smoker Tobacco Use: Non-smoker Assessment/Plan All Active Problems (Last Updated 02/28/20 @ 07:[address] Santosh Nobles MD) Generalized weakness (Acute) Dyspnea (Acute) Patient's noncompliance with other medical treatment and regimen (Acute) Hypoxemia (Acute) COPD exacerbation (Acute) Right foot infection (Acute) Osteomyelitis (Acute) Cellulitis of right lower extremity (Acute) Sepsis (Acute) Chronic combined systolic and diastolic CHF (congestive heart failure) (Acute) Ulceration right dorsal 2nd toe down to bone s/p debridement on 06/17/2020 Osteomyelitis right 2nd toe Cellulitis right forefoot Hammer toe, right Multiple comorbidities Right foot continues to improve, s/p debridement. Wound culture with staph aureus, MRSA DNA PCR negative. Surgical cultures + as well, patient on antibiotic therapy with Dr. Saavedra consulted. Patient did have LEAS in February which showed no arterial occlusive disease. Clinically there is no evidence of ischemia to the foot or ankle. Changed dressing today - applied gauze, kerlix and carey. No weightbearing to right forefoot, ok for heel weightbearing. Keep right foot elevated. Podiatry will continue to follow.
--- NOTE | 2020-06-20 15:00 | PCM.DC.SUM ---
<Damian Reed - Last Filed: 06/20/20 15:00> Discharge Date and Diagnosis - Problem List Patient Problems: Active and Suspected Problems (Last Updated 02/28/20 @ 07:[address] Santosh Nobles MD) Generalized weakness (Acute) Right foot infection (Acute) Osteomyelitis (Acute) Chronic combined systolic and diastolic CHF (congestive heart failure) (Acute) Date of Admission: 06/15/20 Date of Discharge: 06/20/20 - Primary Discharge Diagnosis Acute Problems: Active Problems (Last Updated 02/28/20 @ 07:[address] Santosh Nobles MD) Right second toe osteomyelitis status post debridement and partial amputation on 06/17/2020-infection with MSSA Acute on chronic mixed congestive heart failure CKD stage III Paroxysmal atrial fibrillation Chronic hip and back pain 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 Chronic macrocytic anemia - Secondary Discharge Diagnosis Chronic Problems: Chronic Problems (Last Updated 02/28/20 @ 07:[address] Santosh Nobles MD) CHF exacerbation (Chronic) Debility (Chronic) Vitamin D deficiency (Chronic) Restless leg syndrome (Chronic) COPD (chronic obstructive pulmonary disease) (Chronic) Cardiomyopathy, dilated (Chronic) ESPERANZA (obstructive sleep apnea) (Chronic) Chronic respiratory failure with hypoxia (Chronic) Anxiety (Chronic) Depression (Chronic) Osteoarthritis (Chronic) Pulmonary nodules (Chronic) Left ventricular hypertrophy (Chronic) Back pain (Chronic) Chronic systolic heart failure (Chronic) GERD (gastroesophageal reflux disease) (Chronic) Non-sustained ventricular tachycardia (Chronic) Hypertension (Chronic) 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) nursing home current use of antiarrhythmic medical therapy (Chronic) Paroxysmal atrial fibrillation (Chronic) Asthma (Chronic) Hospital Course and Treatment Imaging Results: IMAGING: RAD/Foot min 3 Views IMPRESSION: Normal x-ray examination of the foot. RAD/Chest 1 View (Portable) IMPRESSION: No acute findings. 2D TTE: Interpretation Summary The estimated ejection fraction is 50 %. Unable to assess diastolic dysfunction. Mild (1+) mitral valve insufficiency. Mild (1+) aortic valve insufficiency. MRI/Lower Ext/No Jt/w/o IMPRESSION: Acute early osteomyelitis at the second proximal phalanx head Bone marrow edema/contusion at the second proximal pharynx head and second middle phalange space Small volume second PIP joint fusion (potential septic arthritis) Soft tissue swelling/cellulitis with dorsal ulceration Diffuse muscle atrophy STUDY: X-RAY - RIGHT FOOT CLINICAL: Female, 69 years old. DEBRIDEMENT 2ND GREAT TOE TECHNIQUE: 2 C-arm views of the foot. 2 second fluoroscopy time. COMPARISON: None. FINDINGS: These images show resection of the head of the second proximal phalanx. Correlate with procedure note. RAD/Foot min 3 Views IMPRESSION: Status post resection of the head of the second proximal phalanx and no other changes or abnormalities. Venous Duplex LE: Interpretation Summary No evidence for acute deep venous thrombosis bilateral lower extremities with patent and compressible bilateral great saphenous veins. Consultations 06/15/20 23:25 Consult: Onc/Wound/health care technician Routine Comment: Operations: - - debridement and partial amputation 06/17/20 Procedures: 2-D Echocardiogram Summary of Care Provided: Hospital course: The patient is a 69 year old F with past medical history as above who presented to the emergency room with increased lower extremity edema, weight gain, and a right second toe wound. She was felt to have an infection in her right lower extremity wound as well as acute on chronic mixed congestive heart failure. She was admitted to the hospital and placed on Vanco and Zosyn, and given IV Lasix for congestive heart failure. Wound care was consulted. Podiatry was consulted. MRI was obtained and demonstrated underlying osteomyelitis of the second proximal phalanx head. A cardiogram was obtained and demonstrated EF of 50%. The patient improved in her lower extremity edema with IV Lasix which was transitioned to oral. Podiatry felt that the patient warranted surgical intervention. She was taken to the operating room on 06/17/2020 and underwent a debridement and partial amputation. Bone cultures were sent. She grew MSSA. Infectious disease was consulted. The patient was placed on IV Rocephin she should complete 6 weeks of. Blood cultures were negative. PICC line was placed. Patient had significant underlying debility as well as the need for ongoing IV antibiotic therapy and careful wound care. longterm was recommended and she was agreeable. The patient was discharged to long-term in stable condition. She will need to follow-up with podiatry in 1 week, her client representative in 3 to 4 weeks, and follow-up with PCP in 2 weeks. This patient was seen by Damian Reed PA-C under the supervision of Doctor Antwon. [] Patient Problems: Active and Suspected Problems (Last Updated 02/28/20 @ 07:[address] Santosh Nobles MD) Generalized weakness (Acute) Right foot infection (Acute) Osteomyelitis (Acute) Chronic combined systolic and diastolic CHF (congestive heart failure) (Acute) - Physical Exam Vitals/I&O's: Vital Signs Temp Pulse Resp BP Pulse Ox 98.1 F 69 18 118/59 L 94 06/20/20 12:10 06/20/20 12:10 06/20/20 12:10 06/20/20 12:10 06/20/20 12:10 Oxygen Flow Rate (L/min) 4 Oxygen Delivery Method Nasal Cannula Weight: 237 lb 10.533 oz Body Mass Index (BMI) 39.4 Intake and Output for Last 24 Hours 06/18/20 06/19/20 06/20/20 23:59 23:59 23:59 Intake Total 1515 / 1515 1130 / 1130 495 / 495 Output Total 2049 / 2049 2350 / 2350 400 / 400 Balance -535 / -535 -1220 / -1220 95 / 95 General: Alert, Oriented x3, Cooperative HEENT: Atraumatic, PERRLA, EOMI, Normocephalic Neck: Supple, No JVD, Negative Carotid Bruits Lungs: Clear to auscultation, Normal air movement Cardiovascular: Regular rate, No murmurs Abdomen: Bowel Sounds Present, Soft, Non Tender Extremities: No edema, Capillary Refill Less than 3 Seconds Skin: No rashes, No breakdown Musculoskeletal: No Tenderness to Palpation of Joints or Extremities Neurological: Cranial nerves II-XII grossly intact Psych/Mental Status: Normal Affect, Appropriate, Alert and oriented to time, place, person, mood and affect Microbiology Past 72 Hours 06/17/20 13:20 Other - Other Gram Stain - Final 06/17/20 13:20 Other - Other Wound Culture - Final Staphylococcus aureus 06/17/20 13:20 Other - Other Anaerobic Culture - Final No anaerobic bacteria isolated. 06/17/20 13:20 Other - Other Gram Stain - Final 06/17/20 13:20 Other - Other Wound Culture - Final Staphylococcus aureus 06/17/20 13:20 Other - Other Anaerobic Culture - Final No anaerobic bacteria isolated. 06/16/20 00:01 Skin - Toe Gram Stain - Final 06/16/20 00:01 Skin - Toe Wound Culture - Final Staphylococcus aureus 06/15/20 21:20 Blood Culture (Wb) - Arm Left Blood Culture - Preliminary No growth in 48 hours. 06/15/20 20:50 Blood Culture (Wb) - Anticubital Left Blood Culture - Preliminary No growth in 48 hours. Laboratory Results 06/20/20 06:25: WBC 8.0, RBC 3.85 L, Hgb 11.4 L, Hct 38.8, MCV 100.8 H, MCH 29.6, MCHC 29.4 L, RDW Std Deviation 50.4 H, RDW Coeff of Ankit 13.7, Plt Count 403, MPV 9.4, Immature Gran % (Auto) 0.500, Neut % (Auto) 69.5, Lymph % (Auto) 17.5 L, [place] % (Auto) 8.8, Eos % (Auto) 3.1, Baso % (Auto) 0.6, Absolute Neuts (auto) 5.6, Absolute Lymphs (auto) 1.40, Nucleated RBC % 0 06/20/20 06:25: Sodium 138, Potassium 3.7, Chloride 100, Carbon Dioxide 37.0 H, Anion Gap 1 L, BUN 35 H, Creatinine 1.24 H, Estim Creat Clear Calc 38.53, Est GFR (MDRD) Af Amer 55 L, Est GFR (MDRD) Non-Af 46 L, BUN/Creatinine Ratio 28.2 H, Glucose 96, Calcium 9.5 Current Medications Acetaminophen (Tylenol) 1,000 mg PO Q8 [facility] Last Admin: 06/20/20 06:13 Dose: 1,000 mg Documented by: Al Hydroxide/Mg Hydroxide (Mylanta Ii) 30 ml PO Q6H PRN PRN PRN Reason: Gastric Burning Albuterol Sulfate (Ventolin Aerosols) 2.5 mg INHALATION Q2H PRN PRN PRN Reason: Dyspnea, wheezing Enoxaparin Sodium (Lovenox) 40 mg SC DAILY [facility] Last Admin: 06/20/20 09:37 Dose: 40 mg Documented by: Famotidine (Pepcid) 40 mg PO DAILY [facility] Last Admin: 06/20/20 09:32 Dose: 40 mg Documented by: Flecainide Acetate (Tambocor) 150 mg PO BID [facility] Last Admin: 06/20/20 09:32 Dose: 150 mg Documented by: Fluticasone Propionate (Flonase Nasal [place]) 1 spray NASAL DAILY [facility] Last Admin: 06/20/20 09:36 Dose: 1 spray Documented by: Furosemide (Furosemide 40 Mg Tablet) 40 mg PO DAILY [facility] Last Admin: 06/20/20 12:14 Dose: 40 mg Documented by: Guaifenesin (Mucinex) 1,200 mg PO BID [facility] Last Admin: 06/20/20 09:32 Dose: 1,200 mg Documented by: Guaifenesin (Robitussin) 20 ml PO Q4H PRN PRN PRN Reason: COUGH Haloperidol Lactate (Haloperidol Lactate 5 Mg/Ml Vial) 1 mg IM Q4H PRN PRN PRN Reason: AGITATION Last Admin: 06/20/20 02:01 Dose: 1 mg Documented by: Sodium Chloride () 250 mls @ 15 mls/hr IV .[id number] PRN PRN Reason: Saline Flush Last Infusion: 06/17/20 16:00 Dose: 0 mls/hr Documented by: Sodium Chloride () 250 mls @ 15 mls/hr IV .[id number] PRN PRN Reason: Additional IVPB Infusion Ceftriaxone Sodium 2 gm/ (Sodium Chloride) 50 mls @ 100 mls/hr IV Q24 [facility] Last Infusion: 06/19/20 11:59 Dose: Infused Documented by: Magnesium Hydroxide (Milk Of Magnesia) 30 ml PO DAILY PRN PRN PRN Reason: Constipation Melatonin (Melatonin) 3 mg PO QHS PRN PRN PRN Reason: INSOMNIA Last Admin: 06/20/20 00:22 Dose: 3 mg Documented by: Metoprolol Tartrate (Lopressor (Beta Katerine)) 25 mg PO BID [facility] Last Admin: 06/20/20 09:33 Dose: Not Given Documented by: Morphine Sulfate (Ms Contin) 15 mg PO BID [facility] Last Admin: 06/20/20 09:32 Dose: 15 mg Documented by: Nitroglycerin (Nitrostat) 0.4 mg SUBLINGUAL Q5M PRN PRN Reason: CARDIAC/CHEST PAIN Nutritional [facility]endo - [place] Flavor[facility] Last Admin: 06/20/20 09:36 Dose: Not Given Documented by: Nystatin (Mycostatin Powder) 1 applic TOPICAL 0600,2200 [facility]; Protocol Last Admin: 06/20/20 06:14 Dose: Not Given Documented by: Ondansetron HCl (Zofran) 4 mg IV Q8H PRN PRN PRN Reason: NAUSEA/VOMITING Oxycodone HCl (Oxyir) 5 mg PO Q8H PRN PRN Reason: Pain Score 1-10 Last Admin: 06/20/20 00:21 Dose: 5 mg Documented by: Polyethylene Glycol (Miralax) 17 gm PO DAILY PRN PRN PRN Reason: Constipation Prochlorperazine Edisylate (Compazine Iv) 5 mg IV Q4H PRN PRN PRN Reason: Breakthrough Nausea/Vomiting Psyllium Hydrophilic Mucilloid (Metamucil) 1 packet PO DAILY PRN PRN PRN Reason: Constipation Senna/Docusate Sodium (Senokot-S, Yamilex-Colace) 2 tablet PO BID PRN PRN PRN Reason: Constipation Sodium Chloride () 10 - 40 ml IV UD PRN PRN Reason: SALINE FLUSH Last Admin: 06/18/20 04:46 Dose: 10 ml Documented by: Throat Lozenges (Cepacol Sore Throat Lozenge) 1 lozenge MUCOUS MEM Q2H PRN PRN PRN Reason: SORE THROAT Venlafaxine HCl (Effexor Xr) 150 mg PO DAILY [facility] Last Admin: 06/20/20 09:32 Dose: 150 mg Documented by: Venlafaxine HCl (Effexor) 75 mg PO QHS [facility] Last Admin: 06/19/20 21:13 Dose: 75 mg Documented by: Discharge Diet: Low fat/ Low Cholesterol, 2000 mg Sodium Diet Discharge Activity: Return to Normal Activity Home Medications: Medications to take at Discharge Albuterol Inhaler [Ventolin Hfa] 1 puff INHALATION Q4H PRN PRN 08/08/13 Fluticasone 0.05% [Flonase Nasal [place]] 1 spray NASAL DAILY 08/08/13 flecainide 150 mg tablet 150 mg PO BID 08/16/17 Venlafaxine HCl [Venlafaxine HCl ER] 75 mg PO QHS 01/28/18 Metoprolol Tartrate [Lopressor (beta katerine)] 25 mg PO BID 02/01/18 Acetaminophen [Tylenol] 1,000 mg PO Q8 05/13/19 Venlafaxine HCl [Venlafaxine HCl ER] 150 mg PO DAILY 05/13/19 Famotidine [Pepcid] 40 mg PO DAILY #30 tab 05/28/19 Nystatin Powder [Mycostatin Powder] 1 applic TOPICAL 0600,2200 bottle 05/28/19 Polyethylene Glycol 3350 [Miralax] 17 gm PO DAILY PRN PRN 02/28/20 Morphine Sulfate 15 mg PO BID 04/02/20 Ceftriaxone 2 gm IV Q24 vial 06/20/20 Furosemide [Lasix] 40 mg PO DAILY tab 06/20/20 Guaifenesin [Robitussin] 20 ml PO Q4H PRN PRN udc 06/20/20 Magnesium Hydroxide [Milk Of Magnesia] 30 ml PO DAILY PRN PRN udc 06/20/20 Melatonin 3 mg PO QHS PRN PRN tab 06/20/20 Nutritional Supplement [Rosendo - ORANGE FLAVOR] 1 packet PO BIDCM packet 06/20/20 Oxycodone [Oxyir] 5 mg PO Q8H PRN 3 Days #9 tab 06/20/20 Psyllium [Metamucil] 1 packet PO DAILY PRN PRN packet 06/20/20 Senna/Docusate Sodium [Senokot-S] 2 tab PO BID PRN PRN tab 06/20/20 Following Prescriptions Were Given to Patient: Oxycodone [Oxyir] 5 mg PO Q8H PRN 3 Days #9 tab PRN Reason: Pain Score 6-10 Prescription Printed Primary Care Physician: Darinel Callejas Chi, MD [Primary Care Provider] - Please follow up with your Primary Care Physician in: 2 weeks Please Follow Up With: Zaheer Montilla DPM - podiatry When: 1 week Please Follow Up With: Carroll Mercado MD When: 4 weeks Disposition: Care Home facility Minutes spent on discharge:: 35 Patient Condition:: Stable Medical Necessity - Tobacco Use Smoking Status: Former smoker Tobacco Use: Non-smoker Meaningful Use Info Meaningful Use Diagnoses (Choose all that apply): CHF - CHF ALLEGRA/ARB ordered at discharge?: No Reason ALLEGRA/ARB not ordered?: Worsening renal dysfunctn Documented LVEF (%): 50 <Tata Kapoor - Last Filed: 06/20/20 17:16> Discharge Date and Diagnosis - Primary Discharge Diagnosis Acute Problems: Active Problems (Last Updated 02/28/20 @ 07:[address] Santosh Nobles MD) Generalized weakness (Acute) Right foot infection (Acute) Osteomyelitis (Acute) Chronic combined systolic and diastolic CHF (congestive heart failure) (Acute) - Secondary Discharge Diagnosis Chronic Problems: Chronic Problems (Last Updated 02/28/20 @ 07:[address] Santosh Nobles MD) CHF exacerbation (Chronic) Debility (Chronic) Vitamin D deficiency (Chronic) Restless leg syndrome (Chronic) COPD (chronic obstructive pulmonary disease) (Chronic) Cardiomyopathy, dilated (Chronic) ESPERANZA (obstructive sleep apnea) (Chronic) Chronic respiratory failure with hypoxia (Chronic) Anxiety (Chronic) Depression (Chronic) Osteoarthritis (Chronic) Pulmonary nodules (Chronic) Left ventricular hypertrophy (Chronic) Back pain (Chronic) Chronic systolic heart failure (Chronic) GERD (gastroesophageal reflux disease) (Chronic) Non-sustained ventricular tachycardia (Chronic) Hypertension (Chronic) 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) 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) Paroxysmal atrial fibrillation (Chronic) Asthma (Chronic) Hospital Course and Treatment Consultations 06/15/20 23:25 Consult: Onc/Wound/health care technician Routine Comment: Summary of Care Provided: I agree with the above and the following reflects my own independent history and physical exam ASSESSMENT Acute on Chronic Hypoxic Respiratory Failure-Multifactorial (decompensated HFrEF, COPD, ESPERANZA, OHS) MSSA OM R 2nd digit Leukocytosis-resolved Metabolic Encephalopathy CKD stage 3 Chronic Anemia PAF HPL HTN GERD H/O DVT-remote Chronic Pain 2/2 LBP Depression/Anxiety MO PLAN -Respiratory status remains at baseline and pt is on 4 L -continue PO lasix -sCr is up a bit--> hold lasix today and restart daily dosing tomorrow/Vanc on hold -OR 06/17 and debridement complete -S. Aureus--> MSSA -blood cx neg -CTX per ID and would like 6 weeks -PICC placement today -d/c to TCU today D/C time > 30' Subjective: Some confusion overnight. Still with foot pain. Agreed to TCU and PICC placement today. - Physical Exam Vitals/I&O's: Vital Signs Temp Pulse Resp BP Pulse Ox 98.1 F 69 18 118/59 L 94 06/20/20 15:20 06/20/20 15:20 06/20/20 15:20 06/20/20 15:20 06/20/20 15:20 Oxygen Flow Rate (L/min) 4 Oxygen Delivery Method Nasal Cannula Weight: 107.8 kg Body Mass Index (BMI) 39.4 Intake and Output for Last 24 Hours 06/18/20 06/19/20 06/20/20 23:59 23:59 23:59 Intake Total 1515 / 1515 1130 / 1130 545 / 545 Output Total 2049 2350 / 2350 400 / 400 Balance -535 / -535 -1220 / -1220 145 / 145 General: Alert, Oriented x3, Cooperative, No apparent distress, Well developed, Well nourished, - - Obese WF lying in bed, getting ready to eat HEENT: Atraumatic, Normocephalic Oral: Moist Mucosa Neck: Supple, Trachea Midline Lungs: Clear to auscultation, No rhonchi, No wheeze, No rales, Diminished - diffuse Cardiovascular: Regular rate, Regular Rhythm, Normal S1, Normal S2, No murmurs, No Ectopic Activity, No rub noted, No Gallop Abdomen: Bowel Sounds Present, Soft, Non Tender, Non-Distended Extremities: No clubbing, No cyanosis, Capillary Refill Less than 3 Seconds, Edema, Peripheral Pulses Normal Skin: No rashes, - - R Foot with dressing in place Musculoskeletal: Arthritic Changes Neurological: Cranial nerves II-XII grossly intact, Neuro grossly intact Psych/Mental Status: Normal Affect, Appropriate, - - mildly confused Microbiology Past 72 Hours 06/17/20 13:20 Other - Other Gram Stain - Final 06/17/20 13:20 Other - Other Wound Culture - Final Staphylococcus aureus 06/17/20 13:20 Other - Other Anaerobic Culture - Final No anaerobic bacteria isolated. 06/17/20 13:20 Other - Other Gram Stain - Final 06/17/20 13:20 Other - Other Wound Culture - Final Staphylococcus aureus 06/17/20 13:20 Other - Other Anaerobic Culture - Final No anaerobic bacteria isolated. 06/16/20 00:01 Skin - Toe Gram Stain - Final 06/16/20 00:01 Skin - Toe Wound Culture - Final Staphylococcus aureus 06/15/20 21:20 Blood Culture (Wb) - Arm Left Blood Culture - Preliminary No growth in 48 hours. 06/15/20 20:50 Blood Culture (Wb) - Anticubital Left Blood Culture - Preliminary No growth in 48 hours. Laboratory Results 06/20/20 06:25: WBC 8.0, RBC 3.85 L, Hgb 11.4 L, Hct 38.8, MCV 100.8 H, MCH 29.6, MCHC 29.4 L, RDW Std Deviation 50.4 H, RDW Coeff of Ankit 13.7, Plt Count 403, MPV 9.4, Immature Gran % (Auto) 0.500, Neut % (Auto) 69.5, Lymph % (Auto) 17.5 L, [place] % (Auto) 8.8, Eos % (Auto) 3.1, Baso % (Auto) 0.6, Absolute Neuts (auto) 5.6, Absolute Lymphs (auto) 1.40, Nucleated RBC % 0 06/20/20 06:25: Sodium 138, Potassium 3.7, Chloride 100, Carbon Dioxide 37.0 H, Anion Gap 1 L, BUN 35 H, Creatinine 1.24 H, Estim Creat Clear Calc 38.53, Est GFR (MDRD) Af Amer 55 L, Est GFR (MDRD) Non-Af 46 L, BUN/Creatinine Ratio 28.2 H, Glucose 96, Calcium 9.5 Inpatient E&M: [id number] Disch Hosp
--- NOTE | 2020-06-20 15:27 | NURSING ---
Attempted to call report to TCU, they will call back.
--- NOTE | 2020-06-20 15:41 | NURSING ---
Report called to nurse Avila for pt transfer to TCU.
--- NOTE | 2020-06-20 16:58 | PN.ID_ITS ---
Patient Problems: Active and Suspected Problems (Last Updated 02/28/20 @ 07:[address] Santosh Nobles MD) Generalized weakness (Acute) Right foot infection (Acute) Osteomyelitis (Acute) Chronic combined systolic and diastolic CHF (congestive heart failure) (Acute) Subjective: Picc placed, feeling better, no fever, no n/v/d. - Physical Exam Vitals/I&O's: Vital Signs Temp Pulse Resp BP Pulse Ox 98.1 F 69 18 118/59 L 94 06/20/20 15:20 06/20/20 15:20 06/20/20 15:20 06/20/20 15:20 06/20/20 15:20 Oxygen Flow Rate (L/min) 4 Oxygen Delivery Method Nasal Cannula Weight: 107.8 kg Body Mass Index (BMI) 39.4 Intake and Output for Last 24 Hours 06/18/20 06/19/20 06/20/20 23:59 23:59 23:59 Intake Total 1515 / 1515 1130 / 1130 545 / 545 Output Total 2049 / 2049 2350 / 2350 400 / 400 Balance -535 / -535 -1220 / -1220 145 / 145 General: Alert, Cooperative, No apparent distress Lungs: Clear to auscultation, Normal air movement Cardiovascular: Regular rate, Regular Rhythm Abdomen: Soft, Non Tender, Non-Distended Skin: No rashes Microbiology Past 72 Hours 06/17/20 13:20 Other - Other Gram Stain - Final 06/17/20 13:20 Other - Other Wound Culture - Final Staphylococcus aureus 06/17/20 13:20 Other - Other Anaerobic Culture - Final No anaerobic bacteria isolated. 06/17/20 13:20 Other - Other Gram Stain - Final 06/17/20 13:20 Other - Other Wound Culture - Final Staphylococcus aureus 06/17/20 13:20 Other - Other Anaerobic Culture - Final No anaerobic bacteria isolated. 06/16/20 00:01 Skin - Toe Gram Stain - Final 06/16/20 00:01 Skin - Toe Wound Culture - Final Staphylococcus aureus 06/15/20 21:20 Blood Culture (Wb) - Arm Left Blood Culture - Preliminary No growth in 48 hours. 06/15/20 20:50 Blood Culture (Wb) - Anticubital Left Blood Culture - Preliminary No growth in 48 hours. Laboratory Results 06/20/20 06:25: WBC 8.0, RBC 3.85 L, Hgb 11.4 L, Hct 38.8, MCV 100.8 H, MCH 29.6, MCHC 29.4 L, RDW Std Deviation 50.4 H, RDW Coeff of Ankit 13.7, Plt Count 403, MPV 9.4, Immature Gran % (Auto) 0.500, Neut % (Auto) 69.5, Lymph % (Auto) 17.5 L, [place] % (Auto) 8.8, Eos % (Auto) 3.1, Baso % (Auto) 0.6, Absolute Neuts (auto) 5.6, Absolute Lymphs (auto) 1.40, Nucleated RBC % 0 06/20/20 06:25: Sodium 138, Potassium 3.7, Chloride 100, Carbon Dioxide 37.0 H, Anion Gap 1 L, BUN 35 H, Creatinine 1.24 H, Estim Creat Clear Calc 38.53, Est GFR (MDRD) Af Amer 55 L, Est GFR (MDRD) Non-Af 46 L, BUN/Creatinine Ratio 28.2 H , Glucose 96, Calcium 9.5 Medical Necessity - Tobacco Use Smoking Status: Former smoker Tobacco Use: Non-smoker Route of nutrition/ use of supplements: [] Nutritional Intake: [] IV Site: [] Naqvi Catheter: [] - Assessment/Plan Antibiotics: [] Assessment/Plan: [] Active and Suspected Problems (Last Updated 02/28/20 @ 07:[address] Santosh Nobles MD) Right foot infection (Acute) MSSA R toe osteo - mssa seen by pcr of wound. Now s/p partial R 2nd toe amp by Dr. Montilla on 06/17/20. Clearance cx showing MSSA. EMMANUEL improving now. Cont ceftriaxone. Plan will be for 6 weeks of abx at discharge, planned stop date 07/29/20. If she does well, can always change to po keflex and send her home after a few weeks. Will follow, d/w case supervisor
== END 2020-06-20 16:28 | disposition skilled nursing facility (03) | DRG 515 ==
LOC: ED 21:59 → PCU 22:24
PROVIDERS: Anesthesiology; Internal Medicine Infectious Disease; Nurse Practitioner Family; Physician Assistant; Podiatrist; Admitting Provider Family Medicine; Emergency Provider Emergency Medicine; PCP Family Medicine Geriatric Medicine; Visit Provider Internal Medicine
PROC: 0QBQ0ZZ Excision of Right Toe Phalanx, Open Approach (ICD-10-PCS; principal; 2020-06-17 12:15)
DX: M86.171 Other acute osteomyelitis, right ankle and foot (principal); I50.43 Acute on chronic combined systolic (congestive) and diastolic (congestive) heart failure; J96.22 Acute and chronic respiratory failure with hypercapnia; I13.0 Hypertensive heart and chronic kidney disease with heart failure and stage 1 through stage 4 chronic kidney disease, or unspecified chronic kidney disease; Z68.41 Body mass index [BMI] 40.0-44.9, adult; I42.0 Dilated cardiomyopathy; L03.115 Cellulitis of right lower limb; L97.516 Non-pressure chronic ulcer of other part of right foot with bone involvement without evidence of necrosis; B95.61 Methicillin susceptible Staphylococcus aureus infection as the cause of diseases classified elsewhere; M20.41 Other hammer toe(s) (acquired), right foot; N18.30 Chronic kidney disease, stage 3 unspecified; I48.0 Paroxysmal atrial fibrillation; E66.01 Morbid (severe) obesity due to excess calories; J44.9 Chronic obstructive pulmonary disease, unspecified; K21.9 Gastro-esophageal reflux disease without esophagitis; F32.9 Major depressive disorder, single episode, unspecified; I87.2 Venous insufficiency (chronic) (peripheral); F41.9 Anxiety disorder, unspecified; G47.33 Obstructive sleep apnea (adult) (pediatric); G25.81 Restless legs syndrome; M19.90 Unspecified osteoarthritis, unspecified site; G89.4 Chronic pain syndrome; E78.5 Hyperlipidemia, unspecified; Z87.891 Personal history of nicotine dependence; Z91.19 Patient's noncompliance with other medical treatment and regimen; Z86.718 Personal history of other venous thrombosis and embolism; D53.9 Nutritional anemia, unspecified
CPT/HCPCS: 36415; 36569; 71045; 73630; 73718; 76000; 80048; 80053; 80061; 80076; 80202; 82607; 82728; 82746; 83540; 83550; 83605; 83735; 83880; 84439; 84443; 84484; 85025; 85027; 85610; 85652; 85730; 86140; 87015; 87040; 87070; 87075; 87077; 87102; 87116; 87176; 87186; 87205; 87206; 87635; 87640; 88304; 88305; 88311; 93005; 93306; 93970; 97110; 97162; 97166; 97530; 97535; 97802; 99285; J7040; J7050; A4216; J0696; J1940; U0003

== ENCOUNTER 2020-06-20 16:45 | Inpatient (IN) | payer MEDICARE, SELFPAY ==
[2020-06-17 11:00] VITALS: BMI 39.4
[2020-06-20 17:02] VITALS: BP 148/99; PULSE 94; RESP 20; TEMP 36.1; O2SAT 93
[2020-06-20 18:38] VITALS: BP 148/99; PULSE 94
[2020-06-20] MEDS: morphine SR 15 MG Tablet PO (18:38)
[2020-06-20] MEDS: Metoprolol Tartrate 25 MG Tablet PO (18:38)
[2020-06-20] MEDS: Flecainide 150 MG Tablet PO (18:39)
--- NOTE | 2020-06-20 19:01 | PCM.HP.STD ---
Problem List (1) Toe osteomyelitis, right Status: Acute (2) Congestive heart failure Status: Chronic (3) Atrial fibrillation Status: Chronic (4) Debility Status: Acute (5) COPD (chronic obstructive pulmonary disease) Status: Chronic Qualifiers: (6) ESPERANZA (obstructive sleep apnea) Status: Chronic (7) Anxiety Status: Chronic (8) Depression Status: Chronic Qualifiers: (9) GERD (gastroesophageal reflux disease) Status: Chronic (10) Hypertension Status: Chronic Qualifiers: (11) Asthma Status: Chronic Qualifiers: (12) MSSA (methicillin susceptible Staphylococcus aureus) infection Status: Acute History of Present Illness Date of Admission: 06/20/20 Chief Complaint: Here for rehabilitation, strengthening, intravenous antibiotics, prior to discharge home with family. 06/15/20 The patient is a 69 year old Female with below past medical history presented to [facility] Emergency Department with edema. 06/15/20 X-ray right foot normal. 06/15/20 Chest X-ray negative. 06/15/20 EKG sinus rhythm with 1st degree AV block, non-specific intra ventricular conduction block, T wave abnormality, consider anterolateral ischemia. 06/15/20 Echo EF 60%, unable to assess diastolic dysfunction. Bilateral lower extremity swelling x 1 month, right 2nd toe pain x 3 days. Soaked in Epson salts. Zosyn, Vancomycin given for right foot infection. Lasix given for congestive heart failure. 06/15/20 Admit to Hospital. IV Lasix for congestive heart failure. IV Vancomycin, Zosyn for right foot infection. Evaluate anemia. 06/17/20 MRI right forefoot, acute early osteomyelitis 2nd toe, 2nd toe septic arthritis, swelling/cellulitis dorsal ulceration. 06/17/20 Podiatry debrided right 2nd toe. 06/18/20 Doppler ultrasound NEGATIVE DVT. 06/18/20 Infectious Disease MSSA right toe osteomyelitis, Vancomycin on hold due to acute kidney injury, Ceftriaxone started. 06/19/20 Infectious Disease recommends 6 weeks IV Ceftriaxone via PICC line. 06/19/20 Respiratory status stable on 4 liters oxygen. Hold Lasix/Vancomycin for acute kidney injury. 06/20/20 Admit to TCU with debility, here for rehabilitation, strengthening, intravenous antibiotics, prior to discharge home with family. Past Medical History Past Medical History (Chronic Problems): Chronic Problems (Last Updated 02/28/20 @ 07:[address] Santosh Nobles MD) CHF exacerbation (Chronic) Congestive heart failure (Chronic) Atrial fibrillation (Chronic) Vitamin D deficiency (Chronic) Restless leg syndrome (Chronic) COPD (chronic obstructive pulmonary disease) (Chronic) Cardiomyopathy, dilated (Chronic) ESPERANZA (obstructive sleep apnea) (Chronic) Chronic respiratory failure with hypoxia (Chronic) Anxiety (Chronic) Depression (Chronic) Osteoarthritis (Chronic) Pulmonary nodules (Chronic) Left ventricular hypertrophy (Chronic) Back pain (Chronic) Chronic systolic heart failure (Chronic) GERD (gastroesophageal reflux disease) (Chronic) Non-sustained ventricular tachycardia (Chronic) Hypertension (Chronic) 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) 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 Santosh Nobles MD) Cardiomyopathy, dilated (Chronic) I42.0 Chronic combined systolic and diastolic CHF (congestive heart failure) (Acute) I50.42 Non-sustained ventricular tachycardia (Chronic) I47.2 Hypertension (Chronic) I10 Paroxysmal atrial fibrillation (Chronic) I48.0 Asthma (Chronic) J45.909 Chronic back pain M54.9, G89.29 Chronic bronchitis J42 GERD (gastroesophageal reflux disease) K21.9 Kidney disease, chronic, stage III (GFR 30-59 ml/min) N18.3 blood clots Allergies doxycycline Allergy (Severe, Verified 06/15/20 19:58) ulcerations of lips and mouth gabapentin Adverse Reaction (Severe, Verified 06/15/20 19:58) GI upset, Vomiting ciprofloxacin [From Cipro] Adverse Reaction (Intermediate, Verified 06/15/20 19:58) Other messes with her heart medicine Home Medications: Ambulatory Orders Medication Instructions Recorded Albuterol Inhaler [Ventolin Hfa] 1 puff INHALATION Q4H PRN PRN 08/08/13 Fluticasone 0.05% [Flonase Nasal 1 spray NASAL DAILY 08/08/13 [place]] flecainide 150 mg tablet 150 mg PO BID 08/16/17 Venlafaxine HCl [Venlafaxine HCl 75 mg PO QHS 01/28/18 ER] Metoprolol Tartrate [Lopressor 25 mg PO BID 02/01/18 (beta bairon)] Acetaminophen [Tylenol] 1,000 mg PO Q8 05/13/19 Venlafaxine HCl [Venlafaxine HCl 150 mg PO DAILY 05/13/19 ER] Famotidine [Pepcid] 40 mg PO DAILY #30 tab 05/28/19 Polyethylene Glycol 3350 [Miralax] 17 gm PO DAILY PRN PRN 02/28/20 Morphine Sulfate 15 mg PO BID 04/02/20 Ceftriaxone 2 gm IV Q24 06/20/20 Furosemide [Lasix] 40 mg PO DAILY 06/20/20 Guaifenesin [Robitussin] 20 ml PO Q4H PRN PRN udc 06/20/20 Magnesium Hydroxide [Milk Of 30 ml PO DAILY PRN PRN udc 06/20/20 Magnesia] Melatonin 3 mg PO QHS PRN PRN tab 06/20/20 Nutritional Supplement [Rosendo - 1 packet PO BIDCM 06/20/20 ORANGE FLAVOR] Nystatin Powder [Mycostatin Powder] 1 applic TOPICAL 0600,2200 06/20/20 Oxycodone [Oxyir] 5 mg PO Q8H PRN 3 Days #9 tab 06/20/20 Psyllium [Metamucil] 1 packet PO DAILY PRN PRN packet 06/20/20 Senna/Docusate Sodium [Senokot-S] 2 tab PO BID PRN PRN tab 06/20/20 Surgical History: Surgical History (Last Reviewed 02/28/20 @ 04:[address] William Cabrera MD) H/O cardiac radiofrequency ablation Onset Date: ~09/03/13 Z98.890 H/O hysterectomy with oophorectomy H/O tubal ligation Z98.51 History of knee surgery Z98.890 Surgical History: hysterectomy, - - tubal ligation, oophorectomy, knee surgery, status post cardiac radiofrequency ablation, cardiac catheterization, Left hip ORIF intramedullary nail. Psychiatric History: Anxiety, Depression, - - Non-compliance. FUEL CELL BUILDER History: No pertinent FUEL CELL BUILDER history Lives: With Family Smoking Status: Former smoker Tobacco Use: Non-smoker Alcohol: None Drugs: None - *Family History Maternal Family History: Family History (Last Reviewed 02/28/20 @ 04:[address] William Cabrera MD) Mother Heart disease Arthritis blood clots Hypertension Father arthrits Cancer Brother Cancer Aunt Breast cancer Depression Ovarian cancer Grandmother CVA (cerebral vascular accident) Aunt Diabetes History Items: Heart Disease, Hypertension, - - Blood clot Paternal Family History: Family History (Last Reviewed 02/28/20 @ 04:[address] William Cabrera MD) Mother Heart disease Arthritis blood clots Hypertension Father arthrits Cancer Brother Cancer Aunt Breast cancer Depression Ovarian cancer Grandmother CVA (cerebral vascular accident) Aunt Diabetes History Items: Cancer - Lung cancer Review of Systems Constitutional: Denies: Chills, Fever, Weight Change HEENT: Denies: Head Aches, Sinus Congestion, Sinus Drainage Cardiovascular: Denies: Chest Pain, Palpitations Respiratory: Denies: Cough, Shortness of breath at rest, Sputum production Gastrointestinal: Denies: Abdominal Pain, Nausea, Vomiting Genitourinary: Denies: Dysuria Musculoskeletal: Denies: Joint Pain, Joint Tenderness Skin: Denies: Rash, Wounds Neurological: Denies: Numbness, Tingling, Focal weakness Psychiatric: Denies: Anxiety, Depression, Homicidal Ideations, Suicidal Ideations Hematologic/ Lymphatic: Denies: Easy Bruising, Easy Bleeding VTE Information - Inpt Only VTE Present on Admission: No VTE Mechan Device Prophylaxis: Knee High BEATRICE Hose VTE Pharm Prophylaxis ordered?: Yes Patient Problems: Active and Suspected Problems (Last Updated 02/28/20 @ 07:[address] Santosh Nobles MD) Toe osteomyelitis, right (Acute) MSSA (methicillin susceptible Staphylococcus aureus) infection (Acute) Debility (Acute) - Physical Exam Vitals/I&O's: Vital Signs Pulse BP 94 148/99 H 06/20/20 18:38 06/20/20 18:38 Body Mass Index (BMI) 39.4 General: Alert, Oriented x3, Cooperative HEENT: Atraumatic, PERRLA, EOMI, Normocephalic Neck: Supple, No JVD, Negative Carotid Bruits Lungs: Clear to auscultation, Normal air movement Cardiovascular: Regular rate, No murmurs Abdomen: Bowel Sounds Present, Soft, Non Tender Extremities: No edema, Capillary Refill Less than 3 Seconds, - - Right foot dressed. Skin: No rashes, No breakdown Musculoskeletal: No Tenderness to Palpation of Joints or Extremities Neurological: Cranial nerves II-XII grossly intact Psych/Mental Status: Normal Affect, Appropriate Current Medications Acetaminophen (Acetaminophen 500 Mg Tablet) 1,000 mg PO Q8 [facility] Albuterol Sulfate (Albuterol Sulfate 8 Gm Inhaler (60 Puffs)) 1 puff INHALATION Q4H PRN PRN PRN Reason: WHEEZING Famotidine (Famotidine 20 Mg Tablet) 40 mg PO DAILY [facility] Flecainide Acetate (Flecainide 150 Mg Tablet) 150 mg PO BID [facility] Last Admin: 06/20/20 18:39 Dose: 150 mg Documented by: Fluticasone Propionate (Fluticasone 0.05% 1 [place] Nasal.Sry) 1 spray NASAL DAILY [facility] Furosemide (Furosemide 40 Mg Tablet) 40 mg PO DAILY [facility] Guaifenesin (Guaifenesin 10 Ml Udc (200mg/10ml)) 20 ml PO Q4H PRN PRN PRN Reason: COUGH Heparin Sodium (Beef Lung) (Heparin Pf Lock 10 Units/Ml 50 Units/5 Ml Syringe) 50 units IV UD PRN PRN Reason: PICC Line Heparin Flush Ceftriaxone Sodium 2 gm/ (Sodium Chloride) 50 mls @ 100 mls/hr IV Q24 KIM Sodium Chloride () 250 mls @ 15 mls/hr IV .[id number] PRN PRN Reason: Saline Flush Sodium Chloride () 250 mls @ 15 mls/hr IV .[id number] PRN PRN Reason: Additional IVPB Infusion Magnesium Hydroxide (Magnesium Hydroxide 30 Ml Udc) 30 ml PO DAILY PRN PRN PRN Reason: Constipation Melatonin (Melatonin 3 Mg Tablet) 3 mg PO QHS PRN PRN PRN Reason: INSOMNIA Metoprolol Tartrate (Metoprolol Tartrate 25 Mg Tablet) 25 mg PO BID [facility] Last Admin: 06/20/20 18:38 Dose: 25 mg Documented by: Morphine Sulfate (Morphine Sr 15 Mg Tablet) 15 mg PO BID [facility] Last Admin: 06/20/20 18:38 Dose: 15 mg Documented by: Nutritional Formula (Nutritional Supplement (Rosendo) Packet) [facility] Nystatin (Nystatin Powder 15gm Bottle) 1 applic TOPICAL 0600,2200 [facility]; Protocol Oxycodone HCl (Oxycodone 5 Mg Tablet) 5 mg PO Q8H PRN PRN Reason: Pain Score 6-10 Polyethylene Glycol (Polyethylene Glycol 3350 17 Gm Packet) 17 gm PO DAILY PRN PRN PRN Reason: Constipation Psyllium Hydrophilic Mucilloid (Psyllium 1 Packet) 1 packet PO DAILY PRN PRN PRN Reason: Constipation Senna/Docusate Sodium (Senna/Docusate Sodium 1 Tablet) 2 tablet PO BID PRN PRN PRN Reason: Constipation Sodium Chloride (0.9% Saline Lock 10 Ml Syringe) 10 - 40 ml IV UD PRN PRN Reason: Open End PICC Flush Sodium Chloride (0.9 % Nacl (Sterile) Posiflush 10 Ml) 10 - 40 ml IV UD PRN PRN Reason: Port access or dressing change Tuberculin PPD (Tuberculin,Purif.Prot.Deriv. 50 Tu/Ml Vial) 5 tu ID X1 ONE Stop: 06/21/20 10:01 Tuberculin PPD (Tuberculin,Purif.Prot.Deriv. 50 Tu/Ml Vial) 5 tu ID X1 ONE Stop: 06/28/20 10:01 Venlafaxine HCl (Venlafaxine Xr 75 Mg Capsule) 75 mg PO QHS IKM Venlafaxine HCl (Venlafaxine Xr 150 Mg Capsule) 150 mg PO DAILY KIM Assessment/Plan All Active Problems (Last Updated 02/28/20 @ 07:[address] Santosh Nobles MD) Generalized weakness (Acute) Dyspnea (Acute) Patient's noncompliance with other medical treatment and regimen (Acute) Hypoxemia (Acute) COPD exacerbation (Acute) Right foot infection (Acute) Osteomyelitis (Acute) Toe osteomyelitis, right (Acute) MSSA (methicillin susceptible Staphylococcus aureus) infection (Acute) Debility (Acute) Cellulitis of right lower extremity (Acute) Sepsis (Acute) Chronic combined systolic and diastolic CHF (congestive heart failure) (Acute) 69 year old female with below past medical history hospitalized for right toe osteomyelitis requiring debridement, complicated by acute on chronic diastolic heart failure, acute kidney injury, admitted to TCU with debility, here for rehabilitation, strengthening, intravenous antibiotics, prior to discharge home with family. Debility - PT/OT. Pain - Tylenol 1000MG Q8H, MS Contin 15MG BID, Oxycodone 5MG Q4H PRN pain (6-10). Bowel - Miralax 17GM daily, Senna/colace 2 tablets BID, Dulcolax 10MG PA daily PRN. Adult immunization - Administer Prevnar 13, Pneumovax 23, Fluzone as appropriate. DVT prophylaxis - Lovenox 40MG SC daily. COPD - Albuterol MDI 1 puff Q4H PRN. Right toe MSSA osteomyelitis - Ceftriaxone 2GM IV Q24, consult Infectious Disease. GERD - Famotidine 40MG daily. Atrial Fibrillation - Metoprolol 25MG BID, Flecainide 150MG BID. Allergic Rhinitis - Flonase 1 spray daily. Chronic diastolic congestive heart failure - Metoprolol 25MG BID, Lasix 40MG daily. Cough - Robitussin 20ML Q4H PRN. Insomnia - Melatonin 3MG QHS. Nutrition - Rosendo 1 packet BID. Tinea Corporis - Nystatin powder BID. Depression - Venlafaxine 150MG AM, 75MG QHS.
[2020-06-20] MEDS: Acetaminophen 500 MG Tablet 1000 MG PO (22:29)
[2020-06-20] MEDS: Venlafaxine XR 75 MG Capsule PO (22:30)
[2020-06-20] MEDS: Nystatin Powder 15gm Bottle 1 APPLIC TOPICAL (22:40)
[2020-06-20] MEDS: Menthol/Lanolin/Calamine/Znox 113 GM Tube 1 APPLIC TOPICAL (22:40)
[2020-06-21] MEDS: Venlafaxine XR 150 MG Capsule PO (05:48)
[2020-06-21] MEDS: Enoxaparin 40 MG/0.4 ML Syringe SC (05:48)
[2020-06-21] MEDS: Flecainide 150 MG Tablet PO ×2 (05:48→17:09)
[2020-06-21] MEDS: Acetaminophen 500 MG Tablet 1000 MG PO ×3 (05:48→22:39)
[2020-06-21] MEDS: Metoprolol Tartrate 25 MG Tablet PO ×2 (05:48→17:09)
[2020-06-21] MEDS: Polyethylene Glycol 3350 17 GM PACKET PO (05:49)
[2020-06-21] MEDS: Senna/Docusate Sodium 1 Tablet 2 TABLET PO ×2 (05:49→17:09)
[2020-06-21] MEDS: Famotidine 20 MG Tablet 40 MG PO (05:49)
[2020-06-21] MEDS: Menthol/Lanolin/Calamine/Znox 113 GM Tube 1 APPLIC TOPICAL ×2 (05:51→22:41)
[2020-06-21] MEDS: Fluticasone 0.05% 1 SPRAY NASAL.SRY NASAL (05:53)
[2020-06-21] MEDS: Furosemide 40 MG Tablet PO (05:54)
[2020-06-21] MEDS: Nystatin Powder 15gm Bottle 1 APPLIC TOPICAL ×2 (05:54→22:42)
[2020-06-21] MEDS: morphine SR 15 MG Tablet PO ×2 (06:00→17:08)
[2020-06-21] MEDS: 0.9% Saline Lock 10 ML Syringe IV ×3 (06:06→22:48)
[2020-06-21 07:59] LABS: Absolute Lymphocyte Count 1.36 X10^3/uL (0.83-4.51); Absolute Neutrophil Count 5.1 X10^3/uL (2.0-7.7); Basophil# 0.07 X10^3/uL; Basophil% 0.9 % (0-1); Eosinophil# 0.27 X10^3/uL; Eosinophils% 3.6 % (0-5); Hematocrit 37.9 % (37-47); Hemoglobin 11.2 g/dL (12.0-15.0); Lymphocyte # 1.36 X10^3/ul (4.0); Lymphocyte % 18.1 % (19-41); Mean Corp Hgb Conc 29.6 g/dL (32-36); Mean Corpuscular Hgb 29.5 pg (27.0-32.0); Mean Corpuscular Volume 99.7 fL (81-99); Mean Platelet Vol. 9.9 fl (6.2-12.0); Monocyte# 0.72 X10^3/uL; Monocyte% 9.6 % (0-10); NRBC Flagged by Analyzer 0 % (0-5); Neutrophil # 5.07 X10^3/uL (2.7-7.7); Neutrophil % 67.4 % (47-70); Platelet Count 432 K/mm3 (150-450); RBC Distribution Width CV 13.8 % (11.6-14.6); RBC Distribution Width SD 50.4 fl (35.1-43.9); White Blood Count 7.5 K/mm3 (4.4-11.0)
[2020-06-21 08:17] LABS: Anion Gap 2 (5-15); BUN 35 mg/dL (7-18); BUN/Creat Ratio 27.6 RATIO (10-20); Chloride 99 mmol/L (98-107); Creatinine, Serum 1.27 mg/dL (0.55-1.02); EST Glomerular Filtration Rate 44 mL/min (>60); Est Glom Filt Rate - Afr Amer 54 mL/min (>60); Estimated Creatinine Clearance 40.66 ml/min; Glucose 92 mg/dL (74-106); Potassium 3.9 mmol/L (3.5-5.1); Sodium Level 138 mmol/L (136-145)
[2020-06-21] MEDS: oxyCODONE 5 MG Tablet PO ×2 (08:34→23:29)
[2020-06-21 10:00] VITALS: PULSE 85; RESP 20; O2SAT 91
[2020-06-21] MEDS: Tuberculin,Purif.prot.deriv. 50 TU/ML Vial 5 ML ID (10:58)
[2020-06-21 14:12] VITALS: BP 131/72; PULSE 74; RESP 18; TEMP 36.4; O2SAT 92
--- NOTE | 2020-06-21 14:28 | NURSING ---
Pt reported not having a bowel movement since before coming to hospital. This nurse told pt that she has a prn bisacodyl suppository that she could have, pt refused suppository at this time and stated she would not take anything rectally. This nurse asked pt if she would be willing to try anything orally and explained the importance of her having regular bowel movement and the risks that come with remaining constipated. Pt said she would take something orally depending on what it is, pt agreed to drink prune juice with butter at this time but refused other methods. Will continue to monitor at this time RN aware
[2020-06-21] MEDS: Bisacodyl 10 MG Suppository RECTAL (16:01)
[2020-06-21 17:09] VITALS: PULSE 74
--- NOTE | 2020-06-21 17:27 | NURSING ---
Patient complaining of passing hard stool and wanting something to help. This nurse called Dr. Callejas and given order for soap suds enema.
--- NOTE | 2020-06-21 19:49 | NURSING ---
SSE given pt was able to retain some of it, will monitor for effect
[2020-06-21] MEDS: Venlafaxine XR 75 MG Capsule PO (22:38)
--- NOTE | 2020-06-22 01:51 | PCA ---
pt.had light on said something was wrong with her arm.went back and looked she pulled her pic line almost out so i came and got nurse.
--- NOTE | 2020-06-22 01:52 | PCA ---
Addendum entered by Lydia Pardo 06/22/20 03:27: This nurse went back to pt room, pt asked for a pain pill, and to get washed up and her bed changed since she he was incontinent and bed got wet. While I was getting pt washed up she continuously talked about how the SUPERVISOR [employer] should never be aloud in any pt room, She must be high talking to me like that, stating that us kids don't know what to do and either I will help her or she will just do it herself. Pt was very teary eye, and crying, anxious, pt also stated that she must be so hideous and monstrous to be treated that way. Pt also mentioned she couldn't do our job for that she couldn't please anyone. This nurse gave 1:1, reassured her that we are here to help her as best as we can. Pt got washed up, full bed change, pain meds, snacks and fresh water and other drinks. Pt states nothing else needed at this time, she was in bed comfortable with call light in reach. Original Note: pt.called to desk asked her if i could help her couldnt understand her so went back to see and asked her what she needed she told me to get out since i didnt no
--- NOTE | 2020-06-22 01:56 | NURSING ---
Addendum entered by Katerin Raygoza 06/22/20 06:43: Dr. Callejas notified of patient pulling out PICC Line. New orders given to insert new PICC. Original Note: Patient naturopathic oncology provider light. Staff in to assist patient. Patient states that something is hanging out of my arm. This nurse into assess patient's arm and finds PICC line out 20 cm. Patient states that she rolled over and it just pulled out. PICC line removed at this time. 41 cm removed and intact. Patient tolerated procedure well.
[2020-06-22 05:00] VITALS: BP 103/62; PULSE 74; RESP 18; TEMP 36.6; O2SAT 92
[2020-06-22] MEDS: morphine SR 15 MG Tablet PO ×2 (06:06→21:07)
[2020-06-22] MEDS: Polyethylene Glycol 3350 17 GM PACKET PO (06:07)
[2020-06-22] MEDS: Senna/Docusate Sodium 1 Tablet 2 TABLET PO ×2 (06:09→18:00)
[2020-06-22] MEDS: Enoxaparin 40 MG/0.4 ML Syringe SC (06:09)
[2020-06-22] MEDS: Acetaminophen 500 MG Tablet 1000 MG PO ×3 (06:09→21:09)
[2020-06-22] MEDS: Famotidine 20 MG Tablet 40 MG PO (06:10)
[2020-06-22] MEDS: Nystatin Powder 15gm Bottle 1 APPLIC TOPICAL ×2 (06:11→21:13)
[2020-06-22] MEDS: Flecainide 150 MG Tablet PO ×2 (06:11→18:01)
[2020-06-22] MEDS: Furosemide 40 MG Tablet PO (06:12)
[2020-06-22] MEDS: Fluticasone 0.05% 1 SPRAY NASAL.SRY NASAL (06:12)
[2020-06-22] MEDS: Menthol/Lanolin/Calamine/Znox 113 GM Tube 1 APPLIC TOPICAL ×2 (06:12→21:12)
[2020-06-22] MEDS: Venlafaxine XR 150 MG Capsule PO (06:12)
[2020-06-22 06:21] VITALS: BP 103/62; PULSE 74
[2020-06-22] MEDS: Metoprolol Tartrate 25 MG Tablet PO ×2 (06:21→21:08)
--- NOTE | 2020-06-22 06:45 | NURSING ---
EXTRUSION LINE OPERATOR NOTIFIED OF PT REMOVING PICC LINE, NEEDS NEW ONE.
--- NOTE | 2020-06-22 10:07 | NURSING ---
ADVANCE SCOUT HERE TO INSERT PICC LINE.
[2020-06-22] MEDS: LORazepam 1 MG Tablet PO (13:30)
--- NOTE | 2020-06-22 14:14 | NURSING ---
Addendum entered by Lillian Bundy 06/22/20 14:16: Ativan given to pt for tearfulness and anxiety, pt currently resting in room, outcome was effective Original Note: pt can get anxious very quick, mood changes suddenly at times. Dr Callejas updated, new order for PRN ativan if need.
[2020-06-22 14:20] VITALS: BP 107/68; PULSE 62; RESP 20; TEMP 36.6; O2SAT 92
--- NOTE | 2020-06-22 19:15 | NURSING ---
Lying in bed with hob elevated, eyes closed, aroused with verbal stim, awakens and talks to this nurse, skin warm and dry, pupils reactive to light, oral mucosa moist, good and equal hand barrel rifler button , able to smile with equal symetry,
[2020-06-22] MEDS: MELATONIN 3 MG TABLET PO (21:07)
[2020-06-22 21:08] VITALS: BP 119/68; PULSE 67
[2020-06-22] MEDS: Venlafaxine XR 75 MG Capsule PO (21:09)
[2020-06-22] MEDS: 0.9% Saline Lock 10 ML Syringe IV (21:14)
[2020-06-23] VITALS (7 sets, daily range): BP systolic 101–129; BP diastolic 50–68; PULSE 62–65; RESP 18–20; TEMP 35.9–36.4; O2SAT 90–96
[2020-06-23] MEDS: oxyCODONE 5 MG Tablet PO ×2 (00:40→20:44)
--- NOTE | 2020-06-23 02:25 | NURSING ---
Rounding on patient, patient found to not have her Nasal Cannula in nose. Patient's O2 73. Nasal cannula placed back into nose. Patient now 93 on 4 L of O2.
[2020-06-23] MEDS: morphine SR 15 MG Tablet PO ×2 (04:43→17:34)
[2020-06-23] MEDS: Metoprolol Tartrate 25 MG Tablet PO ×2 (04:44→17:25)
[2020-06-23] MEDS: Enoxaparin 40 MG/0.4 ML Syringe SC (04:44)
[2020-06-23] MEDS: Famotidine 20 MG Tablet 40 MG PO (04:44)
[2020-06-23] MEDS: Flecainide 150 MG Tablet PO ×2 (04:44→17:25)
[2020-06-23] MEDS: Senna/Docusate Sodium 1 Tablet 2 TABLET PO ×2 (04:44→17:25)
[2020-06-23] MEDS: Venlafaxine XR 150 MG Capsule PO (04:45)
[2020-06-23] MEDS: Acetaminophen 500 MG Tablet 1000 MG PO ×3 (04:45→20:45)
[2020-06-23] MEDS: Furosemide 40 MG Tablet PO (04:48)
[2020-06-23] MEDS: Menthol/Lanolin/Calamine/Znox 113 GM Tube 1 APPLIC TOPICAL ×2 (04:51→20:48)
[2020-06-23] MEDS: Nystatin Powder 15gm Bottle 1 APPLIC TOPICAL ×2 (04:51→20:48)
[2020-06-23] MEDS: Fluticasone 0.05% 1 SPRAY NASAL.SRY NASAL (04:52)
[2020-06-23] MEDS: Polyethylene Glycol 3350 17 GM PACKET PO (04:52)
[2020-06-23] MEDS: 0.9% Saline Lock 10 ML Syringe IV ×2 (09:40→20:47)
[2020-06-23] MEDS: LORazepam 1 MG Tablet PO ×2 (13:19→20:45)
[2020-06-23 16:40] LABS: Bedside Glucose 90 mg/dL (70-110)
--- NOTE | 2020-06-23 16:45 | NURSING ---
PT KEEPS TAKING O2 OFF AND GETS CONFUSED WORSE. EXPLAINED TO PT ABOUT KEEPING O2 ON. PT STATED OK.
--- NOTE | 2020-06-23 16:48 | NURSING ---
PICC GOOD BLOOD RETURN AND FLUSHED.
--- NOTE | 2020-06-23 20:34 | NURSING ---
Addendum entered by Ree Gilliam 06/24/20 04:47: 0416-Oxygen found off of patient again. Oxygen at 65%. Non-rebreather placed back on patient and Oxygen increased back to 98%. Respiratory placed continuos pulse ox on patient. RN aware. Addendum entered by Ree Gilliam 06/24/20 04:45: 0330-Patient found with oxygen off. Bluish-grayish in color. Oxygen at 60%. Nasal cannula replaced at 4 LPM. Oxygen not increasing. Non-rebreather placed on at 15 LPM. Oxygen increased to 95%. Addendum entered by Ree Gilliam 06/24/20 04:45: 2052-patient found with oxygen off again. O2 saturation at 78%. Nasal cannula replaced and oxygen increased to 93% on 4 LPM. Original Note: PATROL INSPECTOR called this Nurse to room. Patient had removed oxygen. O2 saturation at 74%. Oxygen placed back on patient. Patient upset waiting on pain medication. Explained to patient I was stuck with another patient and I came as soon as I could. Patient became combative. Bit right hand herself. Yelling and crying that this nurse yelled at her. Ensured patient I was not yelling, I was trying to get her to calm down so we could get her oxygen back up. 1:1 given to patient. Patient eventually calmed down.
[2020-06-23] MEDS: MELATONIN 3 MG TABLET PO (20:44)
[2020-06-23] MEDS: Venlafaxine XR 75 MG Capsule PO (20:45)
[2020-06-24] MEDS: Albuterol Sulfate 8 gm Inhaler (60 puffs) 1 PUFF INHALATION (00:09)
--- NOTE | 2020-06-24 02:00 | NURSING ---
late entry: Per MEDICAL CLAIMS MANAGER pt asking for food and soda, given a cookie, pt sat up on side of bed to eat cookie, when MEDICAL CLAIMS MANAGER returned to room, pt states she choked on the cookie and was coughing. METAL TANK ERECTOR and this RN into room, pt sitting up on side of bed, alert and oriented, coughing at times, able lianet spit up sputum, lungs assessed with diminished sounds, no resp distress noted. Talked to pt about not having any more food tonight until speech therapy can see her in am. Pt states she just needs a drink to wash it down.
[2020-06-24] MEDS: oxyCODONE 5 MG Tablet PO (02:46)
[2020-06-24] MEDS: LORazepam 1 MG Tablet PO (02:50)
--- NOTE | 2020-06-24 03:30 | NURSING ---
late entry: Per ADMISSION LIAISON, found patient sitting on side of bed, oxygen off and pox at 68%, pt states that she takes it off in her sleep and doesn't realize what she's doing. HOUSING DEVELOPMENT SPECIALIST in room, called RT to assist. Eddie, RT in to assess pt, talked to him about pt taking her o2 off. Suggested that we use a mask d/t being more difficult to take off, and also placing pt on cont pox so it alarms when pox drops. Pt placed on NRB at this time, lung sounds diminished at this time, no coughing noted.
[2020-06-24 04:50] VITALS: O2SAT 93
[2020-06-24] MEDS: Fluticasone 0.05% 1 SPRAY NASAL.SRY NASAL (05:26)
[2020-06-24 05:27] VITALS: BP 121/93; PULSE 76
[2020-06-24] MEDS: Metoprolol Tartrate 25 MG Tablet PO (05:27)
[2020-06-24] MEDS: Furosemide 40 MG Tablet PO (05:27)
[2020-06-24] MEDS: Senna/Docusate Sodium 1 Tablet 2 TABLET PO (05:27)
[2020-06-24] MEDS: Acetaminophen 500 MG Tablet 1000 MG PO (05:27)
[2020-06-24] MEDS: Famotidine 20 MG Tablet 40 MG PO (05:27)
[2020-06-24] MEDS: Venlafaxine XR 150 MG Capsule PO (05:27)
[2020-06-24] MEDS: Enoxaparin 40 MG/0.4 ML Syringe SC (05:28)
[2020-06-24] MEDS: Menthol/Lanolin/Calamine/Znox 113 GM Tube 1 APPLIC TOPICAL (05:28)
[2020-06-24] MEDS: Polyethylene Glycol 3350 17 GM PACKET PO (05:28)
[2020-06-24] MEDS: Flecainide 150 MG Tablet PO (05:29)
[2020-06-24] MEDS: morphine SR 15 MG Tablet PO (05:32)
[2020-06-24 05:35] VITALS: BP 121/93; PULSE 76; RESP 22; TEMP 36.1; O2SAT 91
[2020-06-24] MEDS: Nystatin Powder 15gm Bottle 1 APPLIC TOPICAL (05:36)
--- NOTE | 2020-06-24 06:45 | NURSING ---
Addendum entered by Lina Og 06/24/20 07:11: Report called to ONLINE MERCHANT, pt transported to ED via bed and o2 at 0700. Original Note: In to check on pt, has o2 off again and c/o I have phlegm in my throat, I need this off so I can breath. O2 at non rebreather on 15L, pox 90-93%. Rt foot noted to be dusky in color. Lung sounds diminished with exp wheezes noted in bases. Pt coughing, able to get small amount clear sputum. Dr. Callejas notified, new order for pt to go to ER.
--- NOTE | 2020-06-24 07:35 | NURSING ---
Attempted to call daughter Samantha, message left for her to call back.
--- NOTE | 2020-06-24 11:10 | ECHOL_ITS ---
Reason For Study: S/P TN Procedure This was a limited 2D transthoracic echocardiogram. EXAM WAS STAT. Exam performed portable in ED. Left Ventricle Mildly dilated left ventricle. Concentric left ventricular hypertrophy. The 3D full volume ejection fraction is 35-40% %. Anterior [place] : Severely Hypokinetic. Right Ventricle Normal right ventricle. The right ventricle is not well visualized. Normal systolic function. The right ventricular wall motion is normal. Atria Normal left atrium. Normal right atrium. Normal atrial septum. Mitral Valve The mitral valve is structurally normal. No prolapse or stenosis seen. Mild (1+) mitral valve insufficiency. Tricuspid Valve Normal tricuspid valve. No significant tricuspid stenosis. Aortic Valve Normal aortic valve. Pulmonic Valve The pulmonic valve is not well visualized. Great Vessels Normal aortic root. Pericardium/Pleural No pericardial effusion. MMode/2D Measurements & Calculations LVIDd: 6.6 cm IVSd: 0.81 cm Ao root diam: 3.2 cm LVIDs: 4.9 cm LVPWd: 0.79 cm LA dimension: 4.0 cm FS: 25.8 % LAV(MOD-bp): 84.8 ml LA A4 area: 24.4 cm2 RA A4 area: 21.4 cm2 LAV(MOD-sp2): 75.4 ml LAV(MOD-sp4): 76.8 ml Interpretation Summary Anteroseptal and apical Hypokinesia EF 35-40% Limited TTE Ordering Physician: Aidan Bai Referring Physician: Darinel Callejas Chi Performed By: Amy Cespedes, DEISI, RVT
--- NOTE | 2020-06-24 12:03 | CON.PCM_ITS ---
Problem List (1) Right foot infection Status: Acute (2) Osteomyelitis Status: Acute (3) Cellulitis of right lower extremity Status: Acute Reason for Consult Date of Consultation: 06/24/20 History of Present Illness: The patient is a 69 year old F who was seen at [facility] for a right foot infection including osteomyelitis. Patient had an ulceration right dorsal 2nd toe down to bone s/p debridement on 06/17/[address] Montilla. Patient is on IV antibiotics per ID. Patient was transferred to TCU for continued care. Patient denies N/V/C/F/CP/SOB/streaking/purulence. Pain controlled.[] Past Medical History Past Medical History (Chronic Problems): Chronic Problems (Last Updated 02/28/20 @ 07:[address] Santosh Nobles MD) CHF exacerbation (Chronic) Congestive heart failure (Chronic) Atrial fibrillation (Chronic) Vitamin D deficiency (Chronic) Restless leg syndrome (Chronic) COPD (chronic obstructive pulmonary disease) (Chronic) Cardiomyopathy, dilated (Chronic) ESPERANZA (obstructive sleep apnea) (Chronic) Chronic respiratory failure with hypoxia (Chronic) Anxiety (Chronic) Depression (Chronic) Osteoarthritis (Chronic) Pulmonary nodules (Chronic) Left ventricular hypertrophy (Chronic) Back pain (Chronic) Chronic systolic heart failure (Chronic) GERD (gastroesophageal reflux disease) (Chronic) Non-sustained ventricular tachycardia (Chronic) Hypertension (Chronic) 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) [facility]CI current use of antiarrhythmic medical therapy (Chronic) Paroxysmal atrial fibrillation (Chronic) Asthma (Chronic) Medical History: Medical History (Last Updated 02/28/20 @ 07:[address] Santosh Nobles MD) Cardiomyopathy, dilated (Chronic) I42.0 Chronic combined systolic and diastolic CHF (congestive heart failure) (Acute) I50.42 Non-sustained ventricular tachycardia (Chronic) I47.2 Hypertension (Chronic) I10 Paroxysmal atrial fibrillation (Chronic) I48.0 Asthma (Chronic) J45.909 Chronic back pain M54.9, G89.29 Chronic bronchitis J42 GERD (gastroesophageal reflux disease) K21.9 Kidney disease, chronic, stage III (GFR 30-59 ml/min) N18.3 blood clots Allergies doxycycline Allergy (Severe, Verified 06/24/20 07:12) ulcerations of lips and mouth gabapentin Adverse Reaction (Severe, Verified 06/24/20 07:12) GI upset, Vomiting ciprofloxacin [From Cipro] Adverse Reaction (Intermediate, Verified 06/24/20 07:12) Other messes with her heart medicine Home Medications: Ambulatory Orders Medication Instructions Recorded Albuterol Inhaler [Ventolin Hfa] 1 puff INHALATION Q4H PRN PRN 08/08/13 Fluticasone 0.05% [Flonase Nasal 1 spray NASAL DAILY 08/08/13 [place]] flecainide 150 mg tablet 150 mg PO BID 08/16/17 Venlafaxine HCl [Venlafaxine HCl 75 mg PO QHS 01/28/18 ER] Metoprolol Tartrate [Lopressor 25 mg PO BID 02/01/18 (beta bairon)] Acetaminophen [Tylenol] 1,000 mg PO Q8 05/13/19 Venlafaxine HCl [Venlafaxine HCl 150 mg PO DAILY 05/13/19 ER] Famotidine [Pepcid] 40 mg PO DAILY #30 tab 05/28/19 Polyethylene Glycol 3350 [Miralax] 17 gm PO DAILY PRN PRN 02/28/20 Morphine Sulfate 15 mg PO BID 04/02/20 Ceftriaxone 2 gm IV Q24 06/20/20 Furosemide [Lasix] 40 mg PO DAILY 06/20/20 Guaifenesin [Robitussin] 20 ml PO Q4H PRN PRN udc 06/20/20 Magnesium Hydroxide [Milk Of 30 ml PO DAILY PRN PRN udc 06/20/20 Magnesia] Melatonin 3 mg PO QHS PRN PRN tab 06/20/20 Nutritional Supplement [Rosendo - 1 packet PO BIDCM 06/20/20 [place] FLAVOR] Nystatin Powder [Mycostatin Powder] 1 applic TOPICAL 0600,2200 06/20/20 Oxycodone [Oxyir] 5 mg PO Q8H PRN 3 Days #9 tab 06/20/20 Psyllium [Metamucil] 1 packet PO DAILY PRN PRN packet 06/20/20 Senna/Docusate Sodium [Senokot-S] 2 tab PO BID PRN PRN tab 06/20/20 Surgical History: Surgical History (Last Reviewed 02/28/20 @ 04:[address] William Cabrera MD) H/O cardiac radiofrequency ablation Onset Date: ~09/03/13 Z98.890 H/O hysterectomy with oophorectomy H/O tubal ligation Z98.51 History of knee surgery Z98.890 Surgical History: hysterectomy, - - tubal ligation, oophorectomy, knee surgery, status post cardiac radiofrequency ablation, cardiac catheterization, Left hip ORIF intramedullary nail. Psychiatric History: Anxiety, Depression, - - Non-compliance. 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 William Cabrera MD) Mother Heart disease Arthritis blood clots Hypertension Father arthrits Cancer Brother Cancer Aunt Breast cancer Depression Ovarian cancer Grandmother CVA (cerebral vascular accident) Aunt Diabetes History Items: Heart Disease, Hypertension, - - Blood clot Paternal Family History: Family History (Last Reviewed 02/28/20 @ 04:[address] William Cabrera MD) Mother Heart disease Arthritis blood clots Hypertension Father arthrits Cancer Brother Cancer Aunt Breast cancer Depression Ovarian cancer Grandmother CVA (cerebral vascular accident) Aunt Diabetes History Items: Cancer - Lung cancer Review of Systems Constitutional: Denies: Chills, Fever Cardiovascular: Denies: Chest Pain Respiratory: Denies: Cough, Shortness of Breath Gastrointestinal: Denies: Nausea, Vomiting Musculoskeletal: Reports: Foot Pain Patient Problems: Active and Suspected Problems (Last Updated 02/28/20 @ 07:[address] Santosh Nobles MD) Toe osteomyelitis, right (Acute) MSSA (methicillin susceptible Staphylococcus aureus) infection (Acute) Debility (Acute) - Physical Exam Vitals/I&O's: Vital Signs Temp Pulse Resp BP Pulse Ox 96.9 F L 76 22 H 121/93 H 91 06/24/20 05:35 06/24/20 05:35 06/24/20 05:35 06/24/20 05:35 06/24/20 05:35 Oxygen Flow Rate (L/min) 12 Oxygen Delivery Method Venturi Mask Weight: 107.3 kg Body Mass Index (BMI) 37.0 Intake and Output for Last 24 Hours 06/22/20 06/23/20 06/24/20 23:59 23:59 23:59 Intake Total 727 / 727 533.25 / 533.25 250.25 / 250.25 Balance 727 / 727 533.25 / 533.25 250.25 / 250.25 General: Alert, Oriented x3 HEENT: Atraumatic Extremities: No clubbing, No cyanosis, Diminished Peripheral Pulses, Tenderness Skin: Ulcer/ Wound Psych/Mental Status: Normal Affect, Appropriate Laboratory Results 06/23/20 16:24: POC Glucose 90 Current Medications Acetaminophen (Acetaminophen 500 Mg Tablet) 1,000 mg PO Q8 [facility] Last Admin: 06/24/20 05:27 Dose: 1,000 mg Documented by: Albuterol Sulfate (Albuterol Sulfate 8 Gm Inhaler (60 Puffs)) 1 puff INHALATION Q4H PRN PRN PRN Reason: WHEEZING Last Admin: 06/24/20 00:09 Dose: 1 puff Documented by: Bisacodyl (Bisacodyl 10 Mg Suppository) 10 mg RECTAL DAILY PRN PRN Reason: Constipation Last Admin: 06/21/20 16:01 Dose: 10 mg Documented by: Calamine/Phenol (Menthol/Lanolin/Calamine/Znox 113 Gm Tube) 1 applic TOPICAL 0600,2200 [facility]; Protocol Last Admin: 06/24/20 05:28 Dose: 1 applicatio Documented by: Enoxaparin Sodium (Enoxaparin 40 Mg/0.4 Ml Syringe) 40 mg SC DAILY@0600 [facility] Last Admin: 06/24/20 05:28 Dose: 40 mg Documented by: Famotidine (Famotidine 20 Mg Tablet) 40 mg PO DAILY [facility] Last Admin: 06/24/20 05:27 Dose: 40 mg Documented by: Flecainide Acetate (Flecainide 150 Mg Tablet) 150 mg PO BID [facility] Last Admin: 06/24/20 05:29 Dose: 150 mg Documented by: Fluticasone Propionate (Fluticasone 0.05% 1 [place] Nasal.Sry) 1 spray NASAL DAILY [facility] Last Admin: 06/24/20 05:26 Dose: 1 spray Documented by: Furosemide (Furosemide 40 Mg Tablet) 40 mg PO DAILY [facility] Last Admin: 06/24/20 05:27 Dose: 40 mg Documented by: Guaifenesin (Guaifenesin 10 Ml Udc (200mg/10ml)) 20 ml PO Q4H PRN PRN PRN Reason: COUGH Heparin Sodium (Beef Lung) (Heparin Pf Lock 10 Units/Ml 50 Units/5 Ml Syringe) 50 units IV UD PRN PRN Reason: PICC Line Heparin Flush Ceftriaxone Sodium 2 gm/ (Sodium Chloride) 50 mls @ 100 mls/hr IV Q24 [facility] Last Infusion: 06/23/20 10:55 Dose: Infused Documented by: Sodium Chloride () 250 mls @ 15 mls/hr IV .[id number] PRN PRN Reason: Saline Flush Last Infusion: 06/24/20 05:36 Dose: 0 mls/hr Documented by: Sodium Chloride () 250 mls @ 15 mls/hr IV .[id number] PRN PRN Reason: Additional IVPB Infusion Lorazepam (Lorazepam 1 Mg Tablet) 1 mg PO Q4H PRN PRN PRN Reason: ANXIETY Last Admin: 06/24/20 02:50 Dose: 1 mg Documented by: Melatonin (Melatonin 3 Mg Tablet) 3 mg PO QHS PRN PRN PRN Reason: INSOMNIA Last Admin: 06/23/20 20:44 Dose: 3 mg Documented by: Metoprolol Tartrate (Metoprolol Tartrate 25 Mg Tablet) 25 mg PO BID [facility] Last Admin: 06/24/20 05:27 Dose: 25 mg Documented by: Morphine Sulfate (Morphine Sr 15 Mg Tablet) 15 mg PO BID [facility] Last Admin: 06/24/20 05:32 Dose: 15 mg Documented by: Nutritional Formula (Nutritional Supplement (Rosendo) Packet) [facility] Last Admin: 06/24/20 09:51 Dose: Not Given Documented by: Nystatin (Nystatin Powder 15gm Bottle) 1 applic TOPICAL 0600,2200 [facility]; Protocol Last Admin: 06/24/20 05:36 Dose: 1 applicatio Documented by: Oxycodone HCl (Oxycodone 5 Mg Tablet) 5 mg PO Q4H PRN PRN Reason: Pain Score 6-10 Last Admin: 06/24/20 02:46 Dose: 5 mg Documented by: Polyethylene Glycol (Polyethylene Glycol 3350 17 Gm Packet) 17 gm PO DAILY [facility] Last Admin: 06/24/20 05:28 Dose: 17 gm Documented by: Senna/Docusate Sodium (Senna/Docusate Sodium 1 Tablet) 2 tablet PO BID [facility] Last Admin: 06/24/20 05:27 Dose: 2 tablet Documented by: Sodium Chloride (0.9% Saline Lock 10 Ml Syringe) 10 - 40 ml IV UD PRN PRN Reason: Open End PICC Flush Last Admin: 06/23/20 20:47 Dose: 20 ml Documented by: Sodium Chloride (0.9 % Nacl (Sterile) Posiflush 10 Ml) 10 - 40 ml IV UD PRN PRN Reason: Port access or dressing change Tuberculin PPD (Tuberculin,Purif.Prot.Deriv. 50 Tu/Ml Vial) 5 tu ID X1 ONE Stop: 06/28/20 10:01 Venlafaxine HCl (Venlafaxine Xr 75 Mg Capsule) 75 mg PO QHS [facility] Last Admin: 06/23/20 20:45 Dose: 75 mg Documented by: Venlafaxine HCl (Venlafaxine Xr 150 Mg Capsule) 150 mg PO DAILY [facility] Last Admin: 06/24/20 05:27 Dose: 150 mg Documented by: Assessment/Plan All Active Problems (Last Updated 02/28/20 @ 07:[address] Santosh Nobles MD) Generalized weakness (Acute) Dyspnea (Acute) Patient's noncompliance with other medical treatment and regimen (Acute) Hypoxemia (Acute) COPD exacerbation (Acute) Right foot infection (Acute) Osteomyelitis (Acute) Toe osteomyelitis, right (Acute) MSSA (methicillin susceptible Staphylococcus aureus) infection (Acute) Debility (Acute) Cellulitis of right lower extremity (Acute) Sepsis (Acute) Chronic combined systolic and diastolic CHF (congestive heart failure) (Acute) Ulceration right dorsal 2nd toe down to bone s/p debridement on 06/17/2020 Osteomyelitis right 2nd toe Cellulitis right forefoot Hammer toe, right Multiple comorbidities Right foot continues to improve, s/p debridement. Wound culture with staph aureus, MRSA DNA PCR negative. Surgical cultures + as well, patient on antibiotic therapy with Dr. Saavedra consulted. Patient did have LEAS in February which showed no arterial occlusive disease. Clinically there is no evidence of ischemia to the foot or ankle. Changed dressing today - applied gauze, kerlix and carey. No weightbearing to right forefoot, ok for heel weightbearing. Keep right foot elevated. Podiatry will continue to follow.
--- NOTE | 2020-06-24 19:18 | DCINST_ITS ---
- Discharge Diagnoses Current Active Problems: Current Active and Chronic Problems (Last Reviewed 06/24/20 @ 12:[address] Armond Killian MD) Congestive heart failure (Chronic) Atrial fibrillation (Chronic) COPD (chronic obstructive pulmonary disease) (Chronic) ESPERANZA (obstructive sleep apnea) (Chronic) Anxiety (Chronic) Depression (Chronic) GERD (gastroesophageal reflux disease) (Chronic) Hypertension (Chronic) Asthma (Chronic) Weight Bearing Status: Weight bearing as tolerated Call your doctor if you observe: Fever of 101 or Higher, Inability to urinate, Inability to have a bowel movement, Shortness of breath, Chest pain, Uncontrolled pain Allergies/Adverse Reactions: Allergies doxycycline Allergy (Severe, Verified 06/24/20 07:12) ulcerations of lips and mouth gabapentin Adverse Reaction (Severe, Verified 06/24/20 07:12) GI upset, Vomiting ciprofloxacin [From Cipro] Adverse Reaction (Intermediate, Verified 06/24/20 07:12) Other messes with her heart medicine Medications to take at Discharge Albuterol Inhaler [Ventolin Hfa] 1 puff INHALATION Q4H PRN PRN 08/08/13 Fluticasone 0.05% [Flonase Nasal [place]] 1 spray NASAL DAILY 08/08/13 flecainide 150 mg tablet 150 mg PO BID 08/16/17 Venlafaxine HCl [Venlafaxine HCl ER] 75 mg PO QHS 01/28/18 Metoprolol Tartrate [Lopressor (beta bairon)] 25 mg PO BID 02/01/18 Acetaminophen [Tylenol] 1,000 mg PO Q8 05/13/19 Venlafaxine HCl [Venlafaxine HCl ER] 150 mg PO DAILY 05/13/19 Famotidine [Pepcid] 40 mg PO DAILY #30 tab 05/28/19 Polyethylene Glycol 3350 [Miralax] 17 gm PO DAILY PRN PRN 02/28/20 Morphine Sulfate 15 mg PO BID 04/02/20 Ceftriaxone 2 gm IV Q24 06/20/20 Furosemide [Lasix] 40 mg PO DAILY 06/20/20 Guaifenesin [Robitussin] 20 ml PO Q4H PRN PRN udc 06/20/20 Magnesium Hydroxide [Milk Of Magnesia] 30 ml PO DAILY PRN PRN udc 06/20/20 Melatonin 3 mg PO QHS PRN PRN tab 06/20/20 Nutritional Supplement [Rosendo - [place]ANGE FLAVOR] 1 packet PO BIDCM 06/20/20 Nystatin Powder [Mycostatin Powder] 1 applic TOPICAL 0600,2200 06/20/20 Oxycodone [Oxyir] 5 mg PO Q8H PRN 3 Days #9 tab 06/20/20 Psyllium [Metamucil] 1 packet PO DAILY PRN PRN packet 06/20/20 Senna/Docusate Sodium [Senokot-S] 2 tab PO BID PRN PRN tab 06/20/20 Primary Care Physician: Darinel Callejas Chi, MD [Primary Care Provider] - Please follow up with your Primary Care Physician in: 1 week. Test Results: Test results from this visit will be discussed in further detail at your follow- up appointment, if applicable. Please Follow Up With: Zaheer Montilla DPM When: 2 weeks Please Follow Up With: Carroll Mercado MD When: 4 weeks Please Follow Up With: Maria C Vance MD Proposed Discharge Date: 06/24/20
--- NOTE | 2020-06-24 19:20 | PCM.DC.SUM ---
Discharge Date and Diagnosis Date of Admission: 06/24/20 Date of Discharge: 06/24/20 - Secondary Discharge Diagnosis Chronic Problems: Chronic Problems (Last Reviewed 06/24/20 @ 12:[address] Armond Killian MD) CHF exacerbation (Chronic) COPD exacerbation (Chronic) Osteomyelitis (Chronic) Congestive heart failure (Chronic) Atrial fibrillation (Chronic) Vitamin D deficiency (Chronic) Restless leg syndrome (Chronic) COPD (chronic obstructive pulmonary disease) (Chronic) Cardiomyopathy, dilated (Chronic) ESPERANZA (obstructive sleep apnea) (Chronic) Chronic respiratory failure with hypoxia (Chronic) Anxiety (Chronic) Depression (Chronic) Osteoarthritis (Chronic) Pulmonary nodules (Chronic) Left ventricular hypertrophy (Chronic) Back pain (Chronic) Chronic systolic heart failure (Chronic) GERD (gastroesophageal reflux disease) (Chronic) Non-sustained ventricular tachycardia (Chronic) Hypertension (Chronic) 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) 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) Paroxysmal atrial fibrillation (Chronic) Asthma (Chronic) Hospital Course and Treatment Imaging Results: 06/24/20 11:10 Echo, Limited Study [ECHO] Routine Operations: None, - - debridement and partial amputation 06/17/20 Procedures: None Summary of Care Provided: The patient is a 69 year old Female with below past medical history hospitalized for right toe osteomyelitis requiring debridement, complicated by acute on chronic diastolic heart failure, acute kidney injury, admitted to TCU with debility, here for rehabilitation, strengthening, intravenous antibiotics, prior to discharge home with family. 06/24/20 Resident aspirated cookie, hypoxic, respiratory distress. Discharge to [facility] for evaluation, admission to hospital. - Physical Exam Vitals/I&O's: Vital Signs Temp Pulse Resp BP Pulse Ox 96.9 F L 76 22 H 121/93 H 91 06/24/20 05:35 06/24/20 05:35 06/24/20 05:35 06/24/20 05:35 06/24/20 05:35 Oxygen Flow Rate (L/min) 12 Oxygen Delivery Method Venturi Mask Weight: 107.3 kg Body Mass Index (BMI) 37.0 Intake and Output for Last 24 Hours 06/22/20 06/23/20 06/24/20 23:59 23:59 23:59 Intake Total 727 / 727 533.25 / 533.25 250.25 / 250.25 Balance 727 / 727 533.25 / 533.25 250.25 / 250.25 Weight Bearing Status: Weight bearing as tolerated Call your doctor if you observe: Fever of 101 or Higher, Inability to urinate, Inability to have a bowel movement, Shortness of breath, Chest pain, Uncontrolled pain Home Medications: Medications to take at Discharge Albuterol Inhaler [Ventolin Hfa] 1 puff INHALATION Q4H PRN PRN 08/08/13 Fluticasone 0.05% [Flonase Nasal [place]] 1 spray NASAL DAILY 08/08/13 flecainide 150 mg tablet 150 mg PO BID 08/16/17 Venlafaxine HCl [Venlafaxine HCl ER] 75 mg PO QHS 01/28/18 Metoprolol Tartrate [Lopressor (beta bairon)] 25 mg PO BID 02/01/18 Acetaminophen [Tylenol] 1,000 mg PO Q8 05/13/19 Venlafaxine HCl [Venlafaxine HCl ER] 150 mg PO DAILY 05/13/19 Famotidine [Pepcid] 40 mg PO DAILY #30 tab 05/28/19 Polyethylene Glycol 3350 [Miralax] 17 gm PO DAILY PRN PRN 02/28/20 Morphine Sulfate 15 mg PO BID 04/02/20 Ceftriaxone 2 gm IV Q24 06/20/20 Furosemide [Lasix] 40 mg PO DAILY 06/20/20 Guaifenesin [Robitussin] 20 ml PO Q4H PRN PRN udc 06/20/20 Magnesium Hydroxide [Milk Of Magnesia] 30 ml PO DAILY PRN PRN udc 06/20/20 Melatonin 3 mg PO QHS PRN PRN tab 06/20/20 Nutritional Supplement [Rosendo - [place]ANGE FLAVOR] 1 packet PO BIDCM 06/20/20 Nystatin Powder [Mycostatin Powder] 1 applic TOPICAL 0600,2200 06/20/20 Oxycodone [Oxyir] 5 mg PO Q8H PRN 3 Days #9 tab 06/20/20 Psyllium [Metamucil] 1 packet PO DAILY PRN PRN packet 06/20/20 Senna/Docusate Sodium [Senokot-S] 2 tab PO BID PRN PRN tab 06/20/20 Primary Care Physician: Darinel Callejas Chi, MD [Primary Care Provider] - Please follow up with your Primary Care Physician in: 1 week. Please Follow Up With: Zaheer Montilla DPM When: 2 weeks Please Follow Up With: Carroll Mercado MD When: 4 weeks Please Follow Up With: Maria C Vance MD Disposition: Acute care Hospital Minutes spent on discharge:: 30 Patient Condition:: Critical Medical Necessity - Tobacco Use Smoking Status: Former smoker Tobacco Use: Non-smoker Meaningful Use Info Meaningful Use Diagnoses (Choose all that apply): None applicable
--- NOTE | 2020-07-03 10:21 | MDS.RN ---
Information for the mds was obtained from review of the clinical record, interview of resident, staff, and direct observation of resident's care.
== END 2020-06-24 07:00 | disposition short-term general hospital (02) | DRG 540 ==
PROVIDERS: Admitting Provider Family Medicine Geriatric Medicine; PCP Family Medicine Geriatric Medicine; Referring Provider Family Medicine Geriatric Medicine; Visit Provider Family Medicine Geriatric Medicine
DX: M86.171 Other acute osteomyelitis, right ankle and foot (principal); I50.42 Chronic combined systolic (congestive) and diastolic (congestive) heart failure; I13.0 Hypertensive heart and chronic kidney disease with heart failure and stage 1 through stage 4 chronic kidney disease, or unspecified chronic kidney disease; J96.11 Chronic respiratory failure with hypoxia; B95.61 Methicillin susceptible Staphylococcus aureus infection as the cause of diseases classified elsewhere; K21.9 Gastro-esophageal reflux disease without esophagitis; I48.0 Paroxysmal atrial fibrillation; F32.9 Major depressive disorder, single episode, unspecified; B35.4 Tinea corporis; G47.33 Obstructive sleep apnea (adult) (pediatric); N18.30 Chronic kidney disease, stage 3 unspecified; F41.9 Anxiety disorder, unspecified; G25.81 Restless legs syndrome; J44.9 Chronic obstructive pulmonary disease, unspecified; M19.90 Unspecified osteoarthritis, unspecified site; E66.01 Morbid (severe) obesity due to excess calories; Z87.891 Personal history of nicotine dependence; Z68.39 Body mass index [BMI] 39.0-39.9, adult; T17.920A Food in respiratory tract, part unspecified causing asphyxiation, initial encounter; X58.XXXA Exposure to other specified factors, initial encounter; Y93.9 Activity, unspecified; Y92.199 Unspecified place in other specified residential institution as the place of occurrence of the external cause
CPT/HCPCS: 36415; 36569; 80048; 82962; 85025; 87635; 93308; 94762; 97110; 97116; 97162; 97166; 97535; 97802; J7050; A4216; J0696; U0003

== ENCOUNTER 2020-06-24 07:04 | Inpatient (IN) | payer MEDICARE, SELFPAY ==
[2020-06-20 18:02] VITALS: BMI 37.0
[2020-06-24] VITALS (60 sets, daily range): BP systolic 51–162; BP diastolic 28–106; PULSE 47–120; RESP 12–25; TEMP 35.4–38.5; O2SAT 76–100; BMI 40.6; BMI 39.9
--- NOTE | 2020-06-24 07:42 | EKG12_ITS ---
Test Reason : SOB Blood Pressure : / mmHG Vent. Rate : 068 BPM Atrial Rate : 068 BPM P-R Int : 242 ms QRS Dur : 164 ms QT Int : 552 ms P-R-T Axes : 055 167 020 degrees QTc Int : 586 ms Sinus rhythm with 1st degree A-V block Indeterminate axis Right bundle branch block Abnormal ECG Confirmed by ROCAEL LAMBERT, BOBBI ([id number]), managing editor KAY SERRANO ([id number]) on 06/30/2020 11:49:05 AM Referred By: Tish Goldstein Confirmed By:BOBBI COTE MD
--- NOTE | 2020-06-24 07:49 | ED.DCSUM_ITS ---
History of Present Illness Chief Complaint: Shortness of Breath Informant: Patient, - - TCU Narrative: Patient is a 69-year-old female who is currently in the outpatient transitional care unit who presents to the emergency department for suspected aspiration of a cookie last night. She is typically on 4 L of supplemental oxygen but has been having some desaturations. She has been relatively noncompliant, removing her NC frequently. She does get agitated and removes the nasal cannula her in the ED so a face mask was placed. Patient is a poor historian. Patient states she does feel short of breath but states this is been going on since she had asthma. She said she was having chest pain bilaterally the day before yesterday but she is currently denying this now. She denies any abdominal pain or nausea/vomiting. She is currently being treated for osteomyelitis with IV antibiotics. She does have a PICC line in place. She also has a history of COPD and CHF. Past Medical History - Allergies and Home Meds Allergies/Adverse Reactions: Allergies doxycycline Allergy (Severe, Verified 06/24/20 07:12) ulcerations of lips and mouth gabapentin Adverse Reaction (Severe, Verified 06/24/20 07:12) GI upset, Vomiting ciprofloxacin [From Cipro] Adverse Reaction (Intermediate, Verified 06/24/20 07:12) Other messes with her heart medicine Past Medical History: - - Atrial fibrillation, hypertension, COPD, CHF, ESPERANZA, osteomyelitis Surgical History: hysterectomy, - - tubal ligation, oophorectomy, knee surgery, status post cardiac radiofrequency ablation, cardiac catheterization, Left hip ORIF intramedullary nail. Smoking Status: Former smoker - Family History Maternal Family History: Family History (Last Reviewed 06/24/20 @ 12:[address] Armond Killian MD) Mother Heart disease Arthritis blood clots Hypertension Father arthrits Cancer Brother Cancer Aunt Breast cancer Depression Ovarian cancer Grandmother CVA (cerebral vascular accident) Aunt Diabetes Family History: Reports: Heart Disease, Hypertension, - - Blood clot Paternal Family History: Family History (Last Reviewed 06/24/20 @ 12:[address] Armond Killian MD) Mother Heart disease Arthritis blood clots Hypertension Father arthrits Cancer Brother Cancer Aunt Breast cancer Depression Ovarian cancer Grandmother CVA (cerebral vascular accident) Aunt Diabetes Family History: Reports: Cancer - Lung cancer Review of Systems All systems negative except as indicated General: Denies: Chills, Fever, Sweats Eyes: Denies: Visual changes - bilaterally, Diplopia ENT: Denies: Rhinorrhea, Sore throat Cardiovascular: Reports: Chest pain. Denies: Palpitations Respiratory: Reports: Dyspnea. Denies: Cough Gastrointestinal: Denies: Abdominal pain, Nausea, Vomiting Musculoskeletal: Denies: Back pain, Extremity Pain Skin: Denies: Rash, Wounds Neurological: Denies: Headache, Weakness, Numbness Physical Exam Vital Signs/Narrative: Vital Signs Temp Pulse Resp BP Pulse Ox 06/24/20 07:05 98.7 F 68 14 108/60 100 Inital Vital Signs reviewed: Yes General: Well nourished, No Acute Distress Head: Normocephalic, Atraumatic Eyes: Perrl, EOMI ENT: Dry mucous membranes Neck: Supple, Nontender Cardiovascular: Regular rate, Regular rhythm Respiratory: - - Decreased breath sounds on the left. Able to talk in full sentences. Trachea is midline. Abdomen: Soft, Nontender, Nondistended Extremities: - - Right foot in clean dressing. Not saturated. Skin: Normal color, No rash Neurological: Alert, Normal Strength Psychological: Agitated - Gets angry with some questioning and trying to keep her oxygen on. Diagnostic/Tx/Re-eval - EKG Initial EKG Interpretation: - - Rate of 68 bpm with a first-degree AV block with a UT interval of 242. She has a QRS of 164 with a right bundle branch block. QTC is prolonged at 586. She does have ST elevation in aVR. There is T wave inversions and diffuse ST depressions except in lead III and aVF. - Medical Decision Making Patient presents emerge department for shortness of breath and hypoxia. She was suspected to have aspirated a cookie. Upon arrival to the emergency department she was on a face mask for supplemental oxygen. She was saturating well with this. She did not appear to be in acute distress initially. We did obtain an EKG. This was concerning given the fact she has ST elevation in aVR with T wave inversions and ST depressions in the lateral leads. I did reasked her about chest pain which she is currently denying.. Any acute distress. First reason a STEMI alert was not called. Basic lab work pending to check electrolyte status as well as troponin. She did have a recent echocardiogram performed 9 days ago which had an EF of 50% which could not evaluate her diastolic function, there were no regional wall abnormalities noted. I discussed the EKG with Dr. Sutton, the hospital account liaison packaging machine supplies distributor. We agreed that this only shows a right bundle branch and likely not acute STEMI given she does not have active chest pain. Lab work returned which did not show any significant electrolyte abnormality including a normal potassium as well as a negative troponin. Chest xray did not show anything acute, so given EKG change and symptoms of dyspnea, possible aspiration a CTA of the chest was performed. This showed mild pulmonary vascular congestion but no PE or dissection. Patient became more aggitated throughout stay. She had PRN ativan order so she was given a 1mg dose of ativan. This did not relieve her symptoms very well. She started to have increased work of breathing. I was then called to the room for a code blue with CPR in progress by nursing staff. Shortly after CPR started at pulse check she did have ROSC and patient was then intubated. Patient suffered repeat cardiac arrests with ventricular fibrillation and ventricular tachycardia. She was defibrillated and cardioverted multiple as list in code noted by nurse. She received multiple rounds of epinephrine. She seemed to respond very well to it and would get ROSC with good blood pressures. Once this wore off she would go back in to cardiac arrest. She was given 300mg amiodarone, bicarb, magnesium and later calcium. Interventional cardiology was consulted and Dr. Bai came to bedside. repeat EKG and showed wide complex tachycardia. Bedside echo was performed and there was significant regional wall abnormality in the septum. Prognosis was felt to very poor and not a candidate for cardiac catheterization at this time. Throughout all this time the patients daughter was attempted to be contacted multiple times and messages were left. Patient was heparinized, started on norepinephrine and given neosynephrine push. Repeat XR showed a mainstem of the OG and this was removed and replaced. The daughter did eventually call back and she was made aware of her mothers situation and prognosis. She will be transported to the ICU for further care and management. She is in critical condition. - Critical Care Time Critical care time (excluding procedures): Including time spent: - 120 minutes, Discussing w/Patient &/or Family/Client Services Director, Discussing w/Consultants, Arranging Admission or Transfer, Performing Direct Patient Care at Bedside Procedures Procedure(s): Intubation: Periarrest patient was attempted to be intubated by myself. This was done in an emergent situation without consent able to be obtained. She started to gag when the ETT was at the vocal cords so RSI was performed with Etomidate and Michael. During the second attempt with a Mac 3 and 7.5 tube the stylet bent so she was ventilated using a BVM. Once stylet was replaced patient was intubated without any issue. This was confirmed with colormetric change and end tidal CO2 and late by chest XR. ED Disposition - Plan for ED Patient: Disposition: Acute Care Hospital [facility] Diagnosis: Cardiopulmonary arrest, Ventricular tachycardia, Ventricular fibrillation, Myocardial infarction, Acute heart failure
--- NOTE | 2020-06-24 07:55 | RAD_ITS ---
STUDY: X-RAY CHEST REASON FOR EXAM: Female, 69 years old. Pt. was brought to ER from TCU, suspected aspiration of cookie TECHNIQUE: Single AP portable view of the chest. COMPARISON: Comparison is made with prior study dated 06/15/2020. FINDINGS: EKG electrodes are seen. Stable mild increased markings at the lung bases suggestive of atelectasis and/or scarring. Stable blunting of the left cardiac phrenic angle. There is moderate cardiac enlargement. Normal mediastinum and leonid. Normal visualized pulmonary arteries. There is atherosclerotic calcification of the aortic arch with tortuosity. There are degenerative changes of the visualized thoracic spine. Normal visualized ribs, clavicles, and shoulders. Hiatal hernia. RAD/Chest 1 View (Portable) IMPRESSION: Cardiomegaly. Stable increased markings at the lung bases suggestive of bibasilar atelectasis and/or scarring. Moderate size hiatal hernia. Electronically Signed: Ivan Arce, at 8:36 EDT , Service support ,
[2020-06-24 08:03] LABS: Basophil# 0.08 X10^3/uL; Basophil% 0.8 % (0-1); Eosinophil# 0.47 X10^3/uL; Eosinophils% 4.7 % (0-5); Hematocrit 39.9 % (37-47); Hemoglobin 11.9 g/dL (12.0-15.0); Mean Corp Hgb Conc 29.8 g/dL (32-36); Mean Corpuscular Hgb 30.2 pg (27.0-32.0); Mean Corpuscular Volume 101.3 fL (81-99); Mean Platelet Vol. 9.3 fl (6.2-12.0); Monocyte# 0.83 X10^3/uL; Monocyte% 8.3 % (0-10); NRBC Flagged by Analyzer 0 % (0-5); Neutrophil # 6.99 X10^3/uL (2.7-7.7); Neutrophil % 69.6 % (47-70); Platelet Count 392 K/mm3 (150-450); RBC Distribution Width CV 13.7 % (11.6-14.6); RBC Distribution Width SD 51.2 fl (35.1-43.9); Red Blood Count 3.94 M/mm3 (4.2-5.4)
[2020-06-24 08:21] LABS: Anion Gap 1 (5-15); BUN 34 mg/dL (7-18); BUN/Creat Ratio 29.8 RATIO (10-20); Calcium,Total 9.6 mg/dL (8.5-10.1); Chloride 102 mmol/L (98-107); Creatinine, Serum 1.14 mg/dL (0.55-1.02); EST Glomerular Filtration Rate 50 mL/min (>60); Est Glom Filt Rate - Afr Amer 61 mL/min (>60); Estimated Creatinine Clearance 40.22 ml/min; Glucose 105 mg/dL (74-106); Potassium 4.1 mmol/L (3.5-5.1); Sodium Level 142 mmol/L (136-145)
--- NOTE | 2020-06-24 08:32 | CT_ITS ---
STUDY: CTA CHEST REASON FOR EXAM: Female, 69 years old. Abnormal CXR, suspected aspiration on cookie last night, c/o SOB. Hx COPD, hypertension. RADIATION DOSAGE (If Supplied By Facility): CTDIvol = ( 11.47 ) mGy, DLP = ( 488.80 ) mGycm TECHNIQUE: The examination was performed with the intravenous administration of IV 100mL Isovue-370. Post-processing of the angiographic images was performed, with multiplanar reformation and 3D reconstruction. Individualized dose optimization techniques were used for this CT. COMPARISON: Comparison is made with prior study dated 05/13/2019. FINDINGS: Normal enhancement of the main pulmonary artery and right and left pulmonary arteries. Normal enhancement of the bilateral peripheral pulmonary arteries. There is no demonstrated pulmonary embolism. There is atherosclerotic calcification of the aortic arch with tortuosity. There is no demonstrated aortic dissection. There are calcifications of the coronary arteries. There is cardiomegaly. Normal mediastinum. Normal hilar regions. Normal visualized trachea and bronchi. The lungs are well expanded. Mild degree of increased interstitial markings. Bibasilar patchy infiltrates. Normal pleura. Normal chest wall structures. There are degenerative changes of thoracic spine. Moderate sized hiatal hernia. CT/CTA Chest W/WO Contrast IMPRESSION: Bibasilar patchy infiltrates. Increased interstitial markings suggests a mild degree of CHF. Moderate sized hiatal hernia. Electronically Signed: Ivan Arce, at 9:17 EDT , Service support ,
[2020-06-24] MEDS: LORazepam 2 MG/ML Syringe 1 MG IV (09:13)
--- NOTE | 2020-06-24 10:34 | EKG12_ITS ---
Test Reason : CODE BLUE Blood Pressure : / mmHG Vent. Rate : 129 BPM Atrial Rate : 101 BPM P-R Int : 264 ms QRS Dur : 162 ms QT Int : 450 ms P-R-T Axes : 241 253 049 degrees QTc Int : 659 ms Atrial fibrillation Non-specific intra-ventricular conduction block Abnormal ECG Confirmed by MITCH LAMBERT, RONY ([id number]), make up editor KENDRA BAE ([id number]) on 07/04/2020 12:47:20 PM Referred By: Tish Goldstein Confirmed By:SEMAJ GOLDSTEIN MD
[2020-06-24] MEDS: Heparin Injection (Vial) 5,000 UNIT/ML VIAL 4000 UNIT IV (10:40)
--- NOTE | 2020-06-24 11:07 | PCM.HP.STD ---
Problem List (1) Cardiopulmonary arrest Status: Acute (2) Hypoxemia Status: Acute (3) CHF exacerbation Status: Chronic (4) COPD exacerbation Status: Chronic (5) Osteomyelitis Status: Chronic (6) Congestive heart failure Status: Chronic (7) Atrial fibrillation Status: Chronic (8) Vitamin D deficiency Status: Chronic (9) Restless leg syndrome Status: Chronic (10) COPD (chronic obstructive pulmonary disease) Status: Chronic Qualifiers: (11) Cardiomyopathy, dilated Status: Chronic (12) ESPERANZA (obstructive sleep apnea) Status: Chronic (13) Chronic respiratory failure with hypoxia Status: Chronic (14) Anxiety Status: Chronic (15) Depression Status: Chronic Qualifiers: (16) Osteoarthritis Status: Chronic (17) Pulmonary nodules Status: Chronic (18) Left ventricular hypertrophy Status: Chronic (19) Back pain Status: Chronic Qualifiers: Back pain location: back pain in unspecified location Chronicity: chronic Back pain laterality: unspecified Qualified Code(s): M54.9 - Dorsalgia, unspecified; G89.29 - Other chronic pain (20) Chronic systolic heart failure Status: Chronic (21) GERD (gastroesophageal reflux disease) Status: Chronic (22) Chronic combined systolic and diastolic CHF (congestive heart failure) Status: Acute (23) Non-sustained ventricular tachycardia Status: Chronic (24) Hypertension Status: Chronic Qualifiers: (25) 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 Status: Chronic (26) 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 Patient was transferred to the emergency department after suspected aspiration of a cookie. Patient apparently went into cardiopulmonary arrest was being evaluated in the emergency department. Patient had prolonged. Of resuscitation. Was intubated and started on Levophed drip and admitted to the intensive care unit for further management. There was a suspicion of possible acute LA after a bedside ultrasound obtained in the ED demonstrated significant regional wall motion abnormalities. Past Medical History Past Medical History (Chronic Problems): Chronic Problems (Last Reviewed 06/24/20 @ 12:[address] Armond Killian MD) CHF exacerbation (Chronic) COPD exacerbation (Chronic) Osteomyelitis (Chronic) Congestive heart failure (Chronic) Atrial fibrillation (Chronic) Vitamin D deficiency (Chronic) Restless leg syndrome (Chronic) COPD (chronic obstructive pulmonary disease) (Chronic) Cardiomyopathy, dilated (Chronic) ESPERANZA (obstructive sleep apnea) (Chronic) Chronic respiratory failure with hypoxia (Chronic) Anxiety (Chronic) Depression (Chronic) Osteoarthritis (Chronic) Pulmonary nodules (Chronic) Left ventricular hypertrophy (Chronic) Back pain (Chronic) Chronic systolic heart failure (Chronic) GERD (gastroesophageal reflux disease) (Chronic) Non-sustained ventricular tachycardia (Chronic) Hypertension (Chronic) 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) manager intermediate current use of antiarrhythmic medical therapy (Chronic) Paroxysmal atrial fibrillation (Chronic) Asthma (Chronic) Medical History: Medical History (Last Reviewed 06/24/20 @ 12:[address] Armond Killian MD) Cardiomyopathy, dilated (Chronic) I42.0 Chronic combined systolic and diastolic CHF (congestive heart failure) (Acute) I50.42 Non-sustained ventricular tachycardia (Chronic) I47.2 Hypertension (Chronic) I10 Paroxysmal atrial fibrillation (Chronic) I48.0 Asthma (Chronic) J45.909 Chronic back pain M54.9, G89.29 Chronic bronchitis J42 GERD (gastroesophageal reflux disease) K21.9 Kidney disease, chronic, stage III (GFR 30-59 ml/min) N18.3 blood clots Allergies doxycycline Allergy (Severe, Verified 06/24/20 07:12) ulcerations of lips and mouth gabapentin Adverse Reaction (Severe, Verified 06/24/20 07:12) GI upset, Vomiting ciprofloxacin [From Cipro] Adverse Reaction (Intermediate, Verified 06/24/20 07:12) Other messes with her heart medicine Home Medications: Ambulatory Orders Medication Instructions Recorded Albuterol Inhaler [Ventolin Hfa] 1 puff INHALATION Q4H PRN PRN 08/08/13 Fluticasone 0.05% [Flonase Nasal 1 spray NASAL DAILY 08/08/13 Ideal] flecainide 150 mg tablet 150 mg PO BID 08/16/17 Venlafaxine HCl [Venlafaxine HCl 75 mg PO QHS 01/28/18 ER] Metoprolol Tartrate [Lopressor 25 mg PO BID 02/01/18 (beta bairon)] Acetaminophen [Tylenol] 1,000 mg PO Q8 05/13/19 Venlafaxine HCl [Venlafaxine HCl 150 mg PO DAILY 05/13/19 ER] Famotidine [Pepcid] 40 mg PO DAILY #30 tab 05/28/19 Polyethylene Glycol 3350 [Miralax] 17 gm PO DAILY PRN PRN 02/28/20 Morphine Sulfate 15 mg PO BID 04/02/20 Ceftriaxone 2 gm IV Q24 06/20/20 Furosemide [Lasix] 40 mg PO DAILY 06/20/20 Guaifenesin [Robitussin] 20 ml PO Q4H PRN PRN udc 06/20/20 Magnesium Hydroxide [Milk Of 30 ml PO DAILY PRN PRN udc 06/20/20 Magnesia] Melatonin 3 mg PO QHS PRN PRN tab 06/20/20 Nutritional Supplement [Rosendo - 1 packet PO BIDCM 06/20/20 ORANGE FLAVOR] Nystatin Powder [Mycostatin Powder] 1 applic TOPICAL 0600,2200 06/20/20 Oxycodone [Oxyir] 5 mg PO Q8H PRN 3 Days #9 tab 06/20/20 Psyllium [Metamucil] 1 packet PO DAILY PRN PRN packet 06/20/20 Senna/Docusate Sodium [Senokot-S] 2 tab PO BID PRN PRN tab 06/20/20 Surgical History: Surgical History (Last Reviewed 06/24/20 @ 12:[address] Armond Killian MD) H/O cardiac radiofrequency ablation Onset Date: ~09/03/13 Z98.890 H/O hysterectomy with oophorectomy H/O tubal ligation Z98.51 History of knee surgery Z98.890 Surgical History: hysterectomy, - - tubal ligation, oophorectomy, knee surgery, status post cardiac radiofrequency ablation, cardiac catheterization, Left hip ORIF intramedullary nail. Psychiatric History: Anxiety, Depression, - - Non-compliance. 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 Armond Killian MD) Mother Heart disease Arthritis blood clots Hypertension Father arthrits Cancer Brother Cancer Aunt Breast cancer Depression Ovarian cancer Grandmother CVA (cerebral vascular accident) Aunt Diabetes History Items: Heart Disease, Hypertension, - - Blood clot Paternal Family History: Family History (Last Reviewed 06/24/20 @ 12:[address] Armond Killian MD) Mother Heart disease Arthritis blood clots Hypertension Father arthrits Cancer Brother Cancer Aunt Breast cancer Depression Ovarian cancer Grandmother CVA (cerebral vascular accident) Aunt Diabetes History Items: Cancer - Lung cancer Review of Systems Unable to obtain accurate/complete ROS d/t: Patient being on the vent VTE Information - Inpt Only VTE Present on Admission: No VTE Mechan Device Prophylaxis: None VTE Pharm Prophylaxis ordered?: Yes Patient Problems: Active and Suspected Problems (Last Reviewed 06/24/20 @ 12:[address] Armond Killian MD) Hypoxemia (Acute) Cardiopulmonary arrest (Acute) Chronic combined systolic and diastolic CHF (congestive heart failure) (Acute) Objective: GENERAL: Patient unresponsive HEENT: ET tube in place EYES; Anicteric, NECK; supple, normal thyroid, RESPIRATORY: Diminished to auscultation CARDIOVASCULAR: Regular S1 S2, GI: soft, normoactive bowel sounds, : No Renal angle tenderness; EXTREMITIES: Right foot in surgical dressing MUSCULOSKELETAL: no muscle waisting NEURO: Unresponsive SKIN: No Rash - Physical Exam Vitals/I&O's: Vital Signs Temp Pulse Resp BP Pulse Ox 97.1 F L 83 20 H 131/62 H 76 06/24/20 09:14 06/24/20 09:14 06/24/20 09:14 06/24/20 09:14 06/24/20 09:14 Oxygen Flow Rate (L/min) 15 Oxygen Delivery Method Non-Rebreather Weight: 107.3 kg Body Mass Index (BMI) 40.6 Laboratory Results 06/24/20 07:57: WBC 10.0, RBC 3.94 L, Hgb 11.9 L, Hct 39.9, MCV 101.3 H, MCH 30.2, MCHC 29.8 L, RDW Std Deviation 51.2 H, RDW Coeff of Ankit 13.7, Plt Count 392, MPV 9.3, Immature Gran % (Auto) 0.600, Neut % (Auto) 69.6, Lymph % (Auto) 16.0 L, [place] % (Auto) 8.3, Eos % (Auto) 4.7, Baso % (Auto) 0.8, Absolute Neuts (auto) 7.0, Absolute Lymphs (auto) 1.60, Nucleated RBC % 0 06/24/20 07:57: Sodium 142, Potassium 4.1, Chloride 102, Carbon Dioxide 39.0 H, Anion Gap 1 L, BUN 34 H, Creatinine 1.14 H, Estim Creat Clear Calc 40.22, Est GFR (MDRD) Af Amer 61, Est GFR (MDRD) Non-Af 50 L, BUN/Creatinine Ratio 29.8 H, Glucose 105, Calcium 9.6, Troponin I 0.024 06/24/20 07:57: B-Natriuretic Peptide 1503.0 H Current Medications Heparin Sodium (Porcine) (Heparin Injection (Vial) 5,000 Unit/Ml Vial) 0 unit IV UD PRN; Protocol PRN Reason: dose adjustment Norepinephrine Bitartrate 8 mg (/ Sodium Chloride) 250 mls @ 9.375 mls/hr CONT INF .[id number] KIM; Protocol Heparin Sodium/Dextrose () 25,000 units in 250 mls @ 10 mls/hr IV .Q25H IKM; Protocol Iopamidol (Contrast Allergy Safety Check) 0 ml IV X1 KIM Assessment/Plan All Active Problems (Last Reviewed 06/24/20 @ 12:[address] Armond Killian MD) Hypoxemia (Acute) Cardiopulmonary arrest (Acute) Chronic combined systolic and diastolic CHF (congestive heart failure) (Acute) Patient is a 69-year-old lady as well from the transitional care unit to the ED with shortness of breath who experience cardiopulmonary arrest was been evaluated in the ED. Patient was successfully resuscitated with return of spontaneous circulation after almost 2 hours. Patient was intubated in the ED and started on Levophed admitted to the intensive care unit 1. Acute cardiopulmonary arrest with high suspicion for acute myocardial infarction ?Patient did experience cardiopulmonary arrest in the ED Patient was successfully resuscitated with return of spontaneous circulation after almost 2 hours patient was started on heparin drip, ordered serial cardiac enzymes, 2D echo and consult placed to cardiology Dr. Sal Bai was notified from the ED prior to patient being admitted 2. Acute hypoxic respiratory failure ?Following patient cardiopulmonary arrest imaging studies obtained in the ED demonstrated Bibasilar patchy infiltrates. Increased interstitial markings suggests a mild degree of CHF. Patient was intubated in the ED prior to patient being admitted to the intensive care unit vent management deferred to pulmonary medicine 3. Hypotension ?Secondary to cardiogenic shock. Patient started on Levophed 4. Congestive heart failure with preserved ejection fraction ?Recent 2D echo obtained on 06/15/2020 demonstrated EF of 50%. imaging studies obtained in the ED demonstrated Bibasilar patchy infiltrates. Increased interstitial markings suggests a mild degree of CHF patient was however not started on Lasix in view of patient being hypotensive 5. Osteomyelitis involving the right second toe Status post debridement and partial amputation on 06/17/[address] Montilla. Bone culture demonstrates staph aureus, MSSA. Patient was discharged to the transitional care unit on Rocephin 6. Paroxysmal A. fib ?Rate controlled 7. Chronic pain syndrome 8. 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 with BMI of 40.6 9. Essential hypertension 10. Depression with anxiety 11. Chronic hypoxic respiratory failure on baseline home O2 secondary to COPD 12. DVT prophylaxis ? heparin Advance planning; had a discussion with patient's daughter Samantha Tiwari, went over mother's condition and her grave prognosis,daughter wishes to remain full code at this point till she is able to see her and mum and make a final decision time spent on discussion 16min Clinical Impression(s) from Imaging Studies Chest X-Ray 06/24/20 07:55 IMPRESSION: Cardiomegaly. Stable increased markings at the lung bases suggestive of bibasilar atelectasis and/or scarring. Moderate size hiatal hernia. Electronically Signed: Ivan Arce, at 8:36 EDT , Service support , Chest CTA 06/24/20 08:32 IMPRESSION: Bibasilar patchy infiltrates. Increased interstitial markings suggests a mild degree of CHF. Moderate sized hiatal hernia. Electronically Signed: Ivan Arce, at 9:17 EDT , Service support , Inpatient E&M: 97083 Subs Hosp L3 Procedures: 25605 Advncd Care Plan 30 Min
--- NOTE | 2020-06-24 11:16 | CM.ED ---
SOCIAL WORK Responded to Code Blue. Multiple attempts have been made to contact patient's daughter Samantha Merida at phone number [phone]. Messages left requesting returned phone call as soon as possible. Courtney Mena MSW, DRY CLEANING MACHINE OPERATOR HELPER
--- NOTE | 2020-06-24 11:45 | CM.ED ---
SOCIAL WORK After many failed attempts to contact daughter. Call to [facility] Dispatch to request officers locate family due to patient's change in status and multiple attempts to call daughter. Dispatch reports will send officers out as soon as possible. Staff starr. Courtney Mena MSW, PATIENT REGISTRATION REP
--- NOTE | 2020-06-24 12:14 | CHAPLAIN ---
Type of Pastoral Visit ___ Initial Visit ___ Follow-up Visit ___ On-call Visit ___ General Patient Visit ___ Spiritual Assessment ___ Family Conference ___ Bereavement ___ Rapid Response ___ Code Blue _x__ Other (describe below) Pastoral Care Referral From ___ Patient ___ Family ___ Nurse ___ Physician ___ Track Mechanic ___ Cementing Bulk Material Operator _x__ Other (describe below) Sacrament/Intervention ___ Active listening ___ Anointing ___ Yazidi ___ Bereavement ___ Communion ___ Diane exploration ___ ___ Life review _x__ Prayer ___ Reconciliation ___ Sacrament of Sick _x__ Supportive presence ___ Wedding ___ Other (describe below) Pastoral Comments patient has been seen numerous times by this appraiser land; pt is now in ED and unresponsive; family is unavailable; gave presence and prayer to pt in room
[2020-06-24 12:40] LABS: Allen Test Positive; Base Excess 7 mmol/L (-2 to +2); Bicarbonate 33.2 mmol/L (22-26); Blood Gas Specimen Type ART; FI02 100; Mode AC; O2 Delivery Device Adult Vent; PEEP 5; PO2 53 mmHG (75-100); RR 12; SITE L Radial; SO2 82 % (95-99); Total Carbon Dioxide 35 mmol/L; Vt 450; pCO2 65.2 mmHg (35-45); pH 7.32 (7.35-7.45)
--- NOTE | 2020-06-24 12:55 | RAD_ITS ---
STUDY: X-RAY CHEST REASON FOR EXAM: Female, 69 years old. Intubation, NG/OG placement TECHNIQUE: Single AP portable view of the chest. COMPARISON: Comparison is made with prior study done earlier in the morning at 7:50 AM. FINDINGS: The endotracheal tube is in situ the tip is about 3.9 sinus proximal to the dianne. An oral gastric tube is seen. The tip appears to lie within the left lower lobe bronchus. Basilar congestion. Small bilateral pleural effusions with bibasilar atelectasis and/or infiltrate. Normal size heart. Normal mediastinum and leonid. Normal visualized pulmonary arteries. There is atherosclerotic calcification of the aortic arch with tortuosity. There are diffuse degenerative changes of the visualized thoracic spine. Normal visualized ribs, clavicles, and shoulders. There is no demonstrated abnormality of the visualized soft tissue structures of the upper abdomen. RAD/Chest 1 View (Portable) IMPRESSION: The tip of the endotracheal tube is at 3.9 cm proximal to the dianne. The orogastric tube lies to the left of the midline suggestive of placement within the left lower lobe bronchus. History congestion with small bilateral pleural effusions and bibasilar atelectasis more prominent on the left side. N.B. : The above information has been verbally conveyed by Ivan Arce to RIVAS CELIS on 06/24/2020 13:13:43 (ET). Electronically Signed: Ivan Arce, at 13:17 EDT , Service support ,
[2020-06-24] MEDS: Contrast Allergy Safety Check IV (13:51)
[2020-06-24] MEDS: Ipratropium/Albuterol Sulfate 3 ML AMPUL.NEB INHALATION ×4 (13:51→22:48)
--- NOTE | 2020-06-24 14:03 | PCM.CON.CC ---
Reason for Consult Date of Consultation: 06/24/20 Reason for Consultation: Acute combined respiratory failure History of Present Illness: The patient is a 69-year-old female, with a history as outlined below, who was transferred from the transitional care unit to the emergency department this morning with respiratory decompensation and hypoxemia with suspected aspiration last night. The patient had just been discharged from the hospital on June 20 after having been admitted for 5 days with right second toe osteomyelitis, acute on chronic congestive heart failure and paroxysmal atrial fibrillation. Shortly after her arrival to the emergency department, an EKG revealed changes concerning for cardiac ischemia. A STEMI alert was subsequently called. Nevertheless, at one point during her emergency department stay, the patient went into cardiopulmonary arrest, which was reported to me as V. fib, requiring defibrillation and multiple rounds of epinephrine to regain return of spontaneous circulation. However, there was a significant amount of downtime. Although the patient was initially stabilized, she did have a vasopressor requirement to maintain hemodynamic stability. She was subsequently transferred to the medical intensive care unit. On arrival to the ICU, the patient was nonresponsive to both verbal and tactile stimulation. She had not received any form of sedation. Nevertheless, she did initiate spontaneous breaths on spontaneous mode of mechanical ventilation. The patient's daughter eventually arrived to the ICU, where she was engaged in a goals of care discussion. Following this conversation, the patient's CODE STATUS was transitioned to DNR CCA. Past Medical History Past Medical History (Chronic Problems): Chronic Problems (Last Reviewed 06/24/20 @ 12:[address] Armond Killian MD) CHF exacerbation (Chronic) COPD exacerbation (Chronic) Osteomyelitis (Chronic) Congestive heart failure (Chronic) Atrial fibrillation (Chronic) Vitamin D deficiency (Chronic) Restless leg syndrome (Chronic) COPD (chronic obstructive pulmonary disease) (Chronic) Cardiomyopathy, dilated (Chronic) ESPERANZA (obstructive sleep apnea) (Chronic) Chronic respiratory failure with hypoxia (Chronic) Anxiety (Chronic) Depression (Chronic) Osteoarthritis (Chronic) Pulmonary nodules (Chronic) Left ventricular hypertrophy (Chronic) Back pain (Chronic) Chronic systolic heart failure (Chronic) GERD (gastroesophageal reflux disease) (Chronic) Non-sustained ventricular tachycardia (Chronic) Hypertension (Chronic) 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) 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 Armond Killian MD) Cardiomyopathy, dilated (Chronic) I42.0 Chronic combined systolic and diastolic CHF (congestive heart failure) (Acute) I50.42 Non-sustained ventricular tachycardia (Chronic) I47.2 Hypertension (Chronic) I10 Paroxysmal atrial fibrillation (Chronic) I48.0 Asthma (Chronic) J45.909 Chronic back pain M54.9, G89.29 Chronic bronchitis J42 GERD (gastroesophageal reflux disease) K21.9 Kidney disease, chronic, stage III (GFR 30-59 ml/min) N18.3 blood clots Allergies doxycycline Allergy (Severe, Verified 06/24/20 07:12) ulcerations of lips and mouth gabapentin Adverse Reaction (Severe, Verified 06/24/20 07:12) GI upset, Vomiting ciprofloxacin [From Cipro] Adverse Reaction (Intermediate, Verified 06/24/20 07:12) Other messes with her heart medicine Home Medications: Ambulatory Orders Medication Instructions Recorded Albuterol Inhaler [Ventolin Hfa] 1 puff INHALATION Q4H PRN PRN 08/08/13 Fluticasone 0.05% [Flonase Nasal 1 spray NASAL DAILY 08/08/13 [place]] flecainide 150 mg tablet 150 mg PO BID 08/16/17 Venlafaxine HCl [Venlafaxine HCl 75 mg PO QHS 01/28/18 ER] Metoprolol Tartrate [Lopressor 25 mg PO BID 02/01/18 (beta bairon)] Acetaminophen [Tylenol] 1,000 mg PO Q8 05/13/19 Venlafaxine HCl [Venlafaxine HCl 150 mg PO DAILY 05/13/19 ER] Famotidine [Pepcid] 40 mg PO DAILY #30 tab 05/28/19 Polyethylene Glycol 3350 [Miralax] 17 gm PO DAILY PRN PRN 02/28/20 Morphine Sulfate 15 mg PO BID 04/02/20 Ceftriaxone 2 gm IV Q24 06/20/20 Furosemide [Lasix] 40 mg PO DAILY 06/20/20 Guaifenesin [Robitussin] 20 ml PO Q4H PRN PRN udc 06/20/20 Magnesium Hydroxide [Milk Of 30 ml PO DAILY PRN PRN udc 06/20/20 Magnesia] Melatonin 3 mg PO QHS PRN PRN tab 06/20/20 Nutritional Supplement [Rosendo - 1 packet PO BIDCM 06/20/20 [place]LAVOR] Nystatin Powder [Mycostatin Powder] 1 applic TOPICAL 0600,2200 06/20/20 Oxycodone [Oxyir] 5 mg PO Q8H PRN 3 Days #9 tab 06/20/20 Psyllium [Metamucil] 1 packet PO DAILY PRN PRN packet 06/20/20 Senna/Docusate Sodium [Senokot-S] 2 tab PO BID PRN PRN tab 06/20/20 Surgical History: Surgical History (Last Reviewed 06/24/20 @ 12:[address] Armond Killian MD) H/O cardiac radiofrequency ablation Onset Date: ~09/03/13 Z98.890 H/O hysterectomy with oophorectomy H/O tubal ligation Z98.51 History of knee surgery Z98.890 Surgical History: hysterectomy, - - tubal ligation, oophorectomy, knee surgery, status post cardiac radiofrequency ablation, cardiac catheterization, Left hip ORIF intramedullary nail. Psychiatric History: Anxiety, Depression, - - Non-compliance. 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 Armond Killian MD) Mother Heart disease Arthritis blood clots Hypertension Father arthrits Cancer Brother Cancer Aunt Breast cancer Depression Ovarian cancer Grandmother CVA (cerebral vascular accident) Aunt Diabetes History Items: Heart Disease, Hypertension, - - Blood clot Paternal Family History: Family History (Last Reviewed 06/24/20 @ 12:[address] Armond Killian MD) Mother Heart disease Arthritis blood clots Hypertension Father arthrits Cancer Brother Cancer Aunt Breast cancer Depression Ovarian cancer Grandmother CVA (cerebral vascular accident) Aunt Diabetes History Items: Cancer - Lung cancer Review of Systems Unable to obtain accurate/complete ROS d/t: Due to current intubation mechanical ventilation status Patient Problems: Active and Suspected Problems (Last Reviewed 06/24/20 @ 12:[address] Armond Killian MD) Hypoxemia (Acute) Cardiopulmonary arrest (Acute) Ventricular tachycardia (Acute) Ventricular fibrillation (Acute) Myocardial infarction (Acute) Acute heart failure (Acute) Chronic combined systolic and diastolic CHF (congestive heart failure) (Acute) Objective: The patient's most recent lab work, culture data and imaging studies have all been personally reviewed. - Physical Exam Vitals/I&O's: Vital Signs Temp Pulse Resp BP Pulse Ox 95.7 F L 85 17 145/84 H 91 06/24/20 13:02 06/24/20 13:18 06/24/20 13:18 06/24/20 13:18 06/24/20 13:18 Oxygen Flow Rate (L/min) 15 Oxygen Delivery Method Mechanical Ventilator Weight: 236 lb 8.896 oz Body Mass Index (BMI) 40.6 Intake and Output for Last 24 Hours 06/22/20 06/23/20 06/24/20 23:59 23:59 23:59 Intake Total 9.40 / 9.40 Balance 9.40 / 9.40 General: - - Intubated and mechanically ventilated. Nonresponsive to verbal and tactile stimulation. Comatose. HEENT: Atraumatic, Normocephalic Oral: No Gingival or Mucosal Lesions/ Ulcerations, - - Endotracheal and OG tubes in place Neck: Supple, No Nodes, Trachea Midline Lungs: No rhonchi, No wheeze, No rales, Diminished Cardiovascular: Regular rate, Regular Rhythm Abdomen: Bowel Sounds Present, Soft, Non Tender, Obese Extremities: No clubbing, No cyanosis, Cool, Diminished Peripheral Pulses Skin: Ulcer/ Wound Musculoskeletal: No Muscle Wasting Lymphatic: No Cervical, Supraclavicular, or Inguinal Adenopathy Neurological: - - The patient is comatose and nonresponsive. However, she does initiate her own breaths on spontaneous mode of mechanical ventilation. Labs (Last 48 Hours) 06/24/20 06/24/20 06/24/20 07:57 07:57 07:57 WBC 10.0 RBC 3.94 L Hgb 11.9 L Hct 39.9 MCV 101.3 H MCH 30.2 MCHC 29.8 L RDW Std Deviation 51.2 H RDW Coeff of Ankit 13.7 Plt Count 392 MPV 9.3 Immature Gran % (Auto) 0.600 Neut % (Auto) 69.6 Lymph % (Auto) 16.0 L [place] % (Auto) 8.3 Eos % (Auto) 4.7 Baso % (Auto) 0.8 Absolute Neuts (auto) 7.0 Absolute Lymphs (auto) 1.60 Nucleated RBC % 0 Specimen Type Sample Site pH Bicarbonate Actual Total CO2 Base Excess O2 Saturation O2 % ABG pCO2 ABG pO2 Andry Test Respiration Rate O2 Delivery Device Vent Mode Tidal Volume POC PEEP Sodium 142 Potassium 4.1 Chloride 102 Carbon Dioxide 39.0 H Anion Gap 1 L BUN 34 H Creatinine 1.14 H Estim Creat Clear Calc 40.22 Est GFR (MDRD) Af Amer 61 Est GFR (MDRD) Non-Af 50 L BUN/Creatinine Ratio 29.8 H Glucose 105 Calcium 9.6 Troponin I 0.024 B-Natriuretic Peptide 1503.0 H 06/24/20 12:35 WBC RBC Hgb Hct MCV MCH MCHC RDW Std Deviation RDW Coeff of Ankit Plt Count MPV Immature Gran % (Auto) Neut % (Auto) Lymph % (Auto) [place] % (Auto) Eos % (Auto) Baso % (Auto) Absolute Neuts (auto) Absolute Lymphs (auto) Nucleated RBC % Specimen Type ART Sample Site L Radial pH 7.32 L Bicarbonate Actual 33.2 H Total CO2 35 Base Excess 7 H O2 Saturation 82 L O2 % 100 ABG pCO2 65.2 H ABG pO2 53 L Andry Test Positive Respiration Rate 12 O2 Delivery Device Adult Vent Vent Mode AC Tidal Volume 450 POC PEEP 5 Sodium Potassium Chloride Carbon Dioxide Anion Gap BUN Creatinine Estim Creat Clear Calc Est GFR (MDRD) Af Amer Est GFR (MDRD) Non-Af BUN/Creatinine Ratio Glucose Calcium Troponin I B-Natriuretic Peptide Clinical Impression(s) from Imaging Studies Chest X-Ray 06/24/20 07:55 IMPRESSION: Cardiomegaly. Stable increased markings at the lung bases suggestive of bibasilar atelectasis and/or scarring. Moderate size hiatal hernia. Electronically Signed: Ivan Arce, at 8:36 EDT , Service support , Chest CTA 06/24/20 08:32 IMPRESSION: Bibasilar patchy infiltrates. Increased interstitial markings suggests a mild degree of CHF. Moderate sized hiatal hernia. Electronically Signed: Ivan Arce at 9:17 EDT , Service support , Chest X-Ray 06/24/20 12:55 IMPRESSION: The tip of the endotracheal tube is at 3.9 cm proximal to the dianne. The orogastric tube lies to the left of the midline suggestive of placement within the left lower lobe bronchus. History congestion with small bilateral pleural effusions and bibasilar atelectasis more prominent on the left side. N.B. : The above information has been verbally conveyed by Ivan Arce to RIVAS CELIS on 06/24/2020 13:13:43 (ET). Electronically Signed: Ivan Arce, at 13:17 EDT , Service support , ADDENDUM: 06/24/20 1324 IMPRESSION: The tip of the endotracheal tube is at 3.9 cm proximal to the dianne. The orogastric tube lies to the left of the midline suggestive of placement within the left lower lobe bronchus. History congestion with small bilateral pleural effusions and bibasilar atelectasis more prominent on the left side. N.B. : The above information has been verbally conveyed by Ivan Arce to RIVAS CELIS on 06/24/2020 13:13:43 (ET). Electronically Signed: Ivan Arce, at 13:17 EDT , Service support , Current Medications Albuterol Sulfate (Albuterol 2.5 Mg/3 Ml Vial.Neb.) 2.5 mg INHALATION Q2H PRN PRN PRN Reason: SOB/Wheezing Albuterol/Ipratropium (Ipratropium/Albuterol Sulfate 3 Ml Ampul.Neb) 3 ml INHALATION Q4H.RT KIM Chlorhexidine Gluconate (Chlorhexidine 15 Ml) 15 ml PO BID KIM Heparin Sodium (Porcine) (Heparin Injection (Vial) 5,000 Unit/Ml Vial) 0 unit IV UD PRN; Protocol PRN Reason: dose adjustment Norepinephrine Bitartrate 8 mg (/ Sodium Chloride) 250 mls @ 9.375 mls/hr CONT INF .[id number] KIM; Protocol Last Titration: 06/24/20 11:37 Dose: 10 mcg/min, 18.8 mls/hr Documented by: Heparin Sodium/Dextrose () 25,000 units in 250 mls @ 10 mls/hr IV .Q25H KIM; Protocol Dexmedetomidine HCl 400 mcg/ (Sodium Chloride) 100 mls @ 13.413 mls/hr IV .Q7H28M KIM; Protocol Iopamidol (Contrast Allergy Safety Check) 0 ml IV X1 KIM Last Admin: 06/24/20 13:51 Dose: 1 ml Documented by: Assessment/Plan Active and Suspected Problems (Last Reviewed 06/24/20 @ 12:[address] Armond Killian MD) Hypoxemia (Acute) Cardiopulmonary arrest (Acute) Ventricular tachycardia (Acute) Ventricular fibrillation (Acute) Myocardial infarction (Acute) Acute heart failure (Acute) Chronic combined systolic and diastolic CHF (congestive heart failure) (Acute) RECOMMENDATIONS: 1. Continue patient on assist control mode of mechanical ventilation and titrate FiO2 and PEEP to maintain oxygen saturations at or above 90%. 2. Start empiric antimicrobials over concerns for acute aspiration event. 3. Obtain sputum and sent for culture. 4. Confirm OG tube placement with KUB. 5. Start scheduled bronchodilator therapy. 6. Continue to hold all sedating medications for now. IMPRESSIONS: 1. Acute on chronic combined respiratory failure The patient presented to the emergency department from the TCU, after she apparently experienced an aspiration event leading to respiratory decompensation and worsening hypoxemia. There is concern that this hypoxemia may have precipitated an acute coronary event. The patient did suffer from cardiopulmonary arrest in the emergency department and did require intubation. Her acid-base status has improved at this time. Plan to continue current supportive measures with assist control mode of mechanical ventilation, with plans to titrate FiO2 and PEEP to maintain oxygen saturations at or above 90%. Over concerns for aspiration, the patient will be placed empirically on Unasyn. Will obtain sputum culture. The patient will also be started on scheduled bronchodilator therapy, over concerns for underlying COPD. 2. Status post cardiopulmonary arrest Clinical concern that hypoxemia may have precipitated cardiac decompensation. Cardiology is currently consulted to assist with management. At this time, we will plan to continue current supportive measures. If there is improvement in the patient's clinical state, left heart catheterization can be considered. 3. Encephalopathy Concern for metabolic versus anoxic encephalopathy. I would recommend that we continue to withhold all sedating medications for now. Continue to ensure adequacy of hemodynamics and oxygenation. If there is no improvement in the patient's neurological status over the next 12 to 24 hours, will obtain MRI and obtain neurology consultation to assist with prognostication. 4. History of heart failure with preserved ejection fraction/paroxysmal atrial fibrillation Continue current supportive measures with additional medical intervention per cardiology recommendations. 5. Chronic pain syndrome/morbid obesity/hypertension/depression/anxiety/questionable COPD Complicates care, management, recovery and prognosis. Start scheduled bronchodilator therapy. Continue to hold antihypertensives, given vasopressor requirement. Continue to hold all sedating medications. CODE status: Discussed CODE status at length including difference between FULL code, DNR-CCA and DNR-CC status. Following discussions about the differences in these status, the patient's daughter requested DNR-CCA CODE STATUS. TIME: 39 minutes of critical care time, independent of procedures, was spent addressing the patient's acute on chronic combined respiratory failure, status post cardiopulmonary arrest, encephalopathy, history of heart failure, review of all data and collaboration with the care team. ([id number]) [id number] Critical care first hour
[2020-06-24 15:08] LABS: Lactic Acid 3.7 mmol/L (0.4-1.9)
--- NOTE | 2020-06-24 15:27 | CHAPLAIN ---
Type of Pastoral Visit ___ Initial Visit _x__ Follow-up Visit ___ On-call Visit ___ General Patient Visit ___ Spiritual Assessment ___ Family Conference ___ Bereavement ___ Rapid Response ___ Code Blue ___ Other (describe below) Pastoral Care Referral From ___ Patient ___ Family ___ Nurse ___ Physician ___ Full Stack Java Developer ___ Veneer Jointer Offbearer _x__ Other (describe below) Sacrament/Intervention ___ Active listening ___ Anointing ___ Gnosticist ___ Bereavement ___ Communion ___ Diane exploration ___ ___ Life review ___ Prayer ___ Reconciliation ___ Sacrament of Sick ___ Supportive presence ___ Wedding _x__ Other (describe below) Pastoral Comments patient was moved to ICU; family had just left the building before this visit so did not have opportunity to offer support for family; will remain available as possible to this possible end of life situation
[2020-06-24 16:01] LABS: Partial Thromboplast Time 27.6 Seconds (24.1-36.2)
--- NOTE | 2020-06-24 16:07 | RAD_ITS ---
STUDY: X-RAY CHEST REASON FOR EXAM: Female, 69 years old. ETT placement. TECHNIQUE: Single AP portable view of the chest. COMPARISON: Chest, 06/24/2020 ([id number]). FINDINGS: There is an endotracheal tube with its tip now 5.2 cm above the dianne. Again seen is a enteric tube which extends below the left diaphragm. The lungs appear unchanged from the previous examination. There is mild interstitial prominence most marked at the lung bases. Small bilateral pleural effusions. The heart appears enlarged. Normal mediastinum and leonid. Normal visualized pulmonary arteries. There is atherosclerotic calcification of the aortic arch with tortuosity. No visualized osseous changes. There is no demonstrated abnormality of the visualized soft tissue structures of the upper abdomen. RAD/Chest 1 View IMPRESSION: 1. Endotracheal tube and enteric tube as described. 2. No other major interval change. Electronically Signed: Celestine Marcial DO at 16:51 EDT Tel [phone], Service support ,
--- NOTE | 2020-06-24 16:15 | RAD_ITS ---
STUDY: X-RAY - ABDOMEN/PELVIS REASON FOR EXAM: Female, 69 years old. OG placement. TECHNIQUE: Single AP view of the abdomen / pelvis. COMPARISON: Chest, 06/24/2020. FINDINGS: There is no enteric tube with its tip in the approximate position of the body of the stomach. There is small bilateral pleural effusions. The heart appears normal in size.. There is air in nondistended transverse colon. There is no small bowel dilatation. There is no demonstrated free abdominal air. The visualized liver, spleen and kidneys are grossly normal in size and morphology. Normal soft tissue structures. There are diffuse degenerative changes of the visualized lumbar spine. RAD/Abdomen Single View (Portable) IMPRESSION: 1. OG tube as described. 2. No evidence for acute intra-abdominal process. 3. Bilateral pleural effusions. Electronically Signed: Celestine Marcial DO at 16:49 EDT Tel [phone], Service support ,
--- NOTE | 2020-06-24 16:20 | CON.PCM_ITS ---
Reason for Consult Date of Consultation: 06/24/20 Reason for Consultation: patient with cardio-pulmonary arrest in ER History of Present Illness: The patient is a 69 year old F [] This is patient seen in ER,She was transferred from TCU_to ER with Hypoexemia cardiopulmonary arrest required longer peroid of resuscitation and significant amount of down time Patient is intubated and on ventilator Has multiple medical co-morbidites with acute on chronic systolic/diastolic CHF/a fib/Toe osteomyelitis recentely DC from hospital patient has significant amount of down time with Hypoxic Encephalopathy Limited TTE showed anteroapical/septal Hypokinesia EF 35-40% patient status is DNR will monitor and managed in ICU Discussed cardiac care plan with the Nursing staff,If improved clinically on current medication to consider LHC,risk and benefit with the patient and family Past Medical History Allergies/Adverse Reactions: Allergies doxycycline Allergy (Severe, Verified 06/24/20 07:12) ulcerations of lips and mouth gabapentin Adverse Reaction (Severe, Verified 06/24/20 07:12) GI upset, Vomiting ciprofloxacin [From Cipro] Adverse Reaction (Intermediate, Verified 06/24/20 07:12) Other messes with her heart medicine Home Medications: Ambulatory Orders Medication Instructions Recorded Albuterol Inhaler [Ventolin Hfa] 1 puff INHALATION Q4H PRN PRN 08/08/13 Fluticasone 0.05% [Flonase Nasal 1 spray NASAL DAILY 08/08/13 [place]] flecainide 150 mg tablet 150 mg PO BID 08/16/17 Venlafaxine HCl [Venlafaxine HCl 75 mg PO QHS 01/28/18 ER] Metoprolol Tartrate [Lopressor 25 mg PO BID 02/01/18 (beta bairon)] Acetaminophen [Tylenol] 1,000 mg PO Q8 05/13/19 Venlafaxine HCl [Venlafaxine HCl 150 mg PO DAILY 05/13/19 ER] Famotidine [Pepcid] 40 mg PO DAILY #30 tab 05/28/19 Polyethylene Glycol 3350 [Miralax] 17 gm PO DAILY PRN PRN 02/28/20 Morphine Sulfate 15 mg PO BID 04/02/20 Ceftriaxone 2 gm IV Q24 06/20/20 Furosemide [Lasix] 40 mg PO DAILY 06/20/20 Guaifenesin [Robitussin] 20 ml PO Q4H PRN PRN udc 06/20/20 Magnesium Hydroxide [Milk Of 30 ml PO DAILY PRN PRN udc 06/20/20 Magnesia] Melatonin 3 mg PO QHS PRN PRN tab 06/20/20 Nutritional Supplement [Rosendo - 1 packet PO BIDCM 06/20/20 [place]ANGE FLAVOR] Nystatin Powder [Mycostatin Powder] 1 applic TOPICAL 0600,2200 06/20/20 Oxycodone [Oxyir] 5 mg PO Q8H PRN 3 Days #9 tab 06/20/20 Psyllium [Metamucil] 1 packet PO DAILY PRN PRN packet 06/20/20 Senna/Docusate Sodium [Senokot-S] 2 tab PO BID PRN PRN tab 06/20/20 Past Medical History (Chronic Problems): Chronic Problems (Last Reviewed 06/24/20 @ 12:[address] Armond Killian MD) CHF exacerbation (Chronic) COPD exacerbation (Chronic) Osteomyelitis (Chronic) Congestive heart failure (Chronic) Atrial fibrillation (Chronic) Vitamin D deficiency (Chronic) Restless leg syndrome (Chronic) COPD (chronic obstructive pulmonary disease) (Chronic) Cardiomyopathy, dilated (Chronic) ESPERANZA (obstructive sleep apnea) (Chronic) Chronic respiratory failure with hypoxia (Chronic) Anxiety (Chronic) Depression (Chronic) Osteoarthritis (Chronic) Pulmonary nodules (Chronic) Left ventricular hypertrophy (Chronic) Back pain (Chronic) Chronic systolic heart failure (Chronic) GERD (gastroesophageal reflux disease) (Chronic) Non-sustained ventricular tachycardia (Chronic) Hypertension (Chronic) 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) 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 Psychiatric History: Anxiety, Depression, - - Non-compliance. PRIVATE DETECTIVE History: No pertinent PRIVATE DETECTIVE history - *Family History Maternal Family History: Family History (Last Reviewed 06/24/20 @ 12:[address] Armond Killian MD) Mother Heart disease Arthritis blood clots Hypertension Father arthrits Cancer Brother Cancer Aunt Breast cancer Depression Ovarian cancer Grandmother CVA (cerebral vascular accident) Aunt Diabetes History Items: Heart Disease, Hypertension, - - Blood clot Paternal Family History: Family History (Last Reviewed 06/24/20 @ 12:[address] Armond Killian MD) Mother Heart disease Arthritis blood clots Hypertension Father arthrits Cancer Brother Cancer Aunt Breast cancer Depression Ovarian cancer Grandmother CVA (cerebral vascular accident) Aunt Diabetes History Items: Cancer - Lung cancer Smoking Status: Former smoker Objective: Vital Signs Temp Pulse Resp BP Pulse Ox 95.7 F L 74 15 145/84 H 92 06/24/20 13:02 06/24/20 15:35 06/24/20 15:35 06/24/20 13:18 06/24/20 15:35 Oxygen Flow Rate (L/min) 15 Oxygen Delivery Method Mechanical Ventilator Weight: 233 lb 11.04 oz Body Mass Index (BMI) 39.9 Intake and Output for Last 24 Hours 06/22/20 06/23/20 06/24/20 23:59 23:59 23:59 Intake Total 9.40 / 9.40 Balance 9.40 / 9.40 06/24/20 07:57: WBC 10.0, RBC 3.94 L, Hgb 11.9 L, Hct 39.9, MCV 101.3 H, MCH 30.2, MCHC 29.8 L, Plt Count 392, MPV 9.3, Immature Gran % (Auto) 0.600, Neut % (Auto) 69.6, Lymph % (Auto) 16.0 L, [place] % (Auto) 8.3, Eos % (Auto) 4.7, Baso % (Auto) 0.8, Absolute Neuts (auto) 7.0, Nucleated RBC % 0 06/24/20 07:57: Sodium 142, Potassium 4.1, Chloride 102, Carbon Dioxide 39.0 H, Anion Gap 1 L, BUN 34 H, Creatinine 1.14 H, Est GFR (MDRD) Af Amer 61, Est GFR (MDRD) Non-Af 50 L, BUN/Creatinine Ratio 29.8 H, Glucose 105, Calcium 9.6, Troponin I 0.024 06/24/20 07:57: B-Natriuretic Peptide 1503.0 H 06/24/20 12:35: pH 7.32 L, Bicarbonate Actual 33.2 H, Base Excess 7 H, O2 Saturation 82 L, ABG pCO2 65.2 H, ABG pO2 53 L, Andry Test Positive 06/24/20 14:25: Lactic Acid 3.7 H* 06/24/20 15:40: APTT 27.6 Rhythm: EKG: ECHO: Stress Test: Cardiac Cath: PCI: CT Surgery: Holter monitor: EPS: PPM: CXR: Chest CT Scan: Assessment/Plan High risk patient with Guarded prognosis cardiac care plan discussed cardiology will follow up
[2020-06-24 17:18] LABS: International Normalized Ratio 1.2; Prothrombin Time (Protime)PT. 14.2 SECONDS (11.7-14.9)
[2020-06-24] MEDS: 0.9% Saline Lock 10 ML Syringe IV ×2 (17:26→21:11)
[2020-06-24] MEDS: Heparin Injection (Vial) 5,000 UNIT/ML VIAL IV (17:33)
[2020-06-24] MEDS: HEPARIN/D5w 25,000 UNITS 25,000 UNITS/250 ML IV.SOLN. 10 UNITS IV (17:34)
[2020-06-24 18:39] LABS: Reflex Lactate? Y
--- NOTE | 2020-06-24 19:42 | NURSING ---
ed re chronic illness deferred till acute illness resovling
[2020-06-24] MEDS: TITRATION PARAMETER CHANGE 1 EACH IV (21:08)
[2020-06-24] MEDS: Chlorhexidine 15 ML PO (21:10)
[2020-06-24 21:13] LABS: Lactic Acid 2.9 mmol/L (0.4-1.9)
[2020-06-24] MEDS: Aspirin 81 MG TAB.CHEW 324 MG PO (21:16)
[2020-06-25] VITALS (54 sets, daily range): BP systolic 69–145; BP diastolic 30–91; PULSE 67–99; RESP 14–24; TEMP 38.2–39.2; O2SAT 87–95; BMI 39.9
[2020-06-25 00:26] LABS: Partial Thromboplast Time 58.7 Seconds (24.1-36.2)
[2020-06-25] MEDS: Ipratropium/Albuterol Sulfate 3 ML AMPUL.NEB INHALATION ×6 (03:49→22:47)
[2020-06-25 04:42] LABS: Absolute Lymphocyte Count 1.81 X10^3/uL (0.83-4.51); Absolute Neutrophil Count 11.2 X10^3/uL (2.0-7.7); Basophil# 0.08 X10^3/uL; Basophil% 0.6 % (0-1); Eosinophil# 0.15 X10^3/uL; Hemoglobin 12.2 g/dL (12.0-15.0); Lymphocyte # 1.81 X10^3/ul (4.0); Lymphocyte % 12.6 % (19-41); Mean Corp Hgb Conc 31.3 g/dL (32-36); Mean Corpuscular Hgb 30.3 pg (27.0-32.0); Mean Corpuscular Volume 96.8 fL (81-99); Mean Platelet Vol. 9.9 fl (6.2-12.0); Monocyte# 1.08 X10^3/uL; Monocyte% 7.5 % (0-10); NRBC Flagged by Analyzer 0 % (0-5); Neutrophil # 11.15 X10^3/uL (2.7-7.7); Neutrophil % 77.5 % (47-70); Platelet Count 408 K/mm3 (150-450); RBC Distribution Width CV 14.1 % (11.6-14.6); RBC Distribution Width SD 49.3 fl (35.1-43.9); Red Blood Count 4.03 M/mm3 (4.2-5.4); White Blood Count 14.4 K/mm3 (4.4-11.0)
[2020-06-25 05:04] LABS: ALB/GLOB Ratio 0.6 RATIO (0.9-2.4); AST(SGOT) 233 U/L (15-37); Alanine Aminotransfer ALT/SGPT 141 U/L (13-56); Albumin, Serum 2.6 g/dL (3.2-5.0); Alkaline Phosphatase 103 U/L (45-117); Anion Gap 7 (5-15); BUN 42 mg/dL (7-18); BUN/Creat Ratio 23.7 RATIO (10-20); Calcium,Total 9.3 mg/dL (8.5-10.1); Chloride 101 mmol/L (98-107); Creatinine, Serum 1.77 mg/dL (0.55-1.02); EST Glomerular Filtration Rate 30 mL/min (>60); Est Glom Filt Rate - Afr Amer 37 mL/min (>60); Globulin 4.2 g/dL (2.2-4.2); Glucose 110 mg/dL (74-106); Magnesium 2.4 mg/dL (1.6-2.6); Potassium 3.9 mmol/L (3.5-5.1); Protein, Total 6.8 g/dL (6.4-8.2); Sodium Level 143 mmol/L (136-145)
--- NOTE | 2020-06-25 06:02 | PN_ITS ---
Subjective: The patient was seen and examined at the bedside this morning. Events from the last 24 hours have been reviewed. The patient has been febrile with a T-max of 101.3 ?F. She has remained hemodynamically stable nonetheless. The patient remains on assist control mode of mechanical ventilation with an FiO2 requirement of 80%. Although the patient presented yesterday to the ICU with a vasopressor requirement, her Levophed was able to be weaned off quickly last evening. The patient did eventually have to be started on sedation last evening, as her mentation improved and she began to follow commands. Objective: The patient's most recent lab work, culture data and imaging studies have all been personally reviewed. Blood, urine and sputum cultures are pending. Respiratory viral panel is pending. General: - - Remains intubated and mechanically ventilated. HEENT: Atraumatic, PERRLA, Normocephalic Oral: No Gingival or Mucosal Lesions/ Ulcerations, - - Endotracheal and OG tubes in place Neck: Supple, No Nodes, Trachea Midline Lungs: Diminished Cardiovascular: Regular rate, Regular Rhythm Abdomen: Bowel Sounds Present, Soft, Non Tender, Obese Extremities: No clubbing, No cyanosis, Edema Skin: No breakdown Musculoskeletal: No Muscle Wasting Lymphatic: No Cervical, Supraclavicular, or Inguinal Adenopathy Neurological: - - The patient is now alert and following commands appropriately. Psych/Mental Status: Anxious, Restless Vital Signs Temp Pulse Resp BP Pulse Ox 101.3 F H 97 19 H 122/84 H 90 06/25/20 05:00 06/25/20 05:00 06/25/20 05:00 06/25/20 05:00 06/25/20 05:00 Oxygen Flow Rate (L/min) 15 Oxygen Delivery Method Mechanical Ventilator Weight: 234 lb 2.095 oz Body Mass Index (BMI) 39.9 Intake and Output for Last 24 Hours 06/23/20 06/24/20 06/25/20 23:59 23:59 23:59 Intake Total 302.39 / 312.39 255.00 / 255.00 Output Total 900 / 1050 310 / 310 Balance -597.61 / -737.61 -55.00 / -55.00 Labs (Last 48 Hours) 06/24/20 06/24/20 06/24/20 07:57 07:57 07:57 WBC 10.0 RBC 3.94 L Hgb 11.9 L Hct 39.9 MCV 101.3 H MCH 30.2 MCHC 29.8 L RDW Std Deviation 51.2 H RDW Coeff of Ankit 13.7 Plt Count 392 MPV 9.3 Immature Gran % (Auto) 0.600 Neut % (Auto) 69.6 Lymph % (Auto) 16.0 L [place] % (Auto) 8.3 Eos % (Auto) 4.7 Baso % (Auto) 0.8 Absolute Neuts (auto) 7.0 Absolute Lymphs (auto) 1.60 Nucleated RBC % 0 PT INR APTT Specimen Type Sample Site pH Bicarbonate Actual Total CO2 Base Excess O2 Saturation O2 % ABG pCO2 ABG pO2 Andry Test Respiration Rate O2 Delivery Device Vent Mode Tidal Volume POC PEEP Sodium 142 Potassium 4.1 Chloride 102 Carbon Dioxide 39.0 H Anion Gap 1 L BUN 34 H Creatinine 1.14 H Estim Creat Clear Calc 40.22 Est GFR (MDRD) Af Amer 61 Est GFR (MDRD) Non-Af 50 L BUN/Creatinine Ratio 29.8 H Glucose 105 Lactic Acid Calcium 9.6 Magnesium Total Bilirubin AST ALT Alkaline Phosphatase Troponin I 0.024 B-Natriuretic Peptide 1503.0 H Total Protein Albumin Globulin Albumin/Globulin Ratio 06/24/20 06/24/20 06/24/20 12:35 14:25 15:40 WBC RBC Hgb Hct MCV MCH MCHC RDW Std Deviation RDW Coeff of Ankit Plt Count MPV Immature Gran % (Auto) Neut % (Auto) Lymph % (Auto) [place] % (Auto) Eos % (Auto) Baso % (Auto) Absolute Neuts (auto) Absolute Lymphs (auto) Nucleated RBC % PT INR APTT 27.6 Specimen Type ART Sample Site L Radial pH 7.32 L Bicarbonate Actual 33.2 H Total CO2 35 Base Excess 7 H O2 Saturation 82 L O2 % 100 ABG pCO2 65.2 H ABG pO2 53 L Andry Test Positive Respiration Rate 12 O2 Delivery Device Adult Vent Vent Mode AC Tidal Volume 450 POC PEEP 5 Sodium Potassium Chloride Carbon Dioxide Anion Gap BUN Creatinine Estim Creat Clear Calc Est GFR (MDRD) Af Amer Est GFR (MDRD) Non-Af BUN/Creatinine Ratio Glucose Lactic Acid 3.7 H* Calcium Magnesium Total Bilirubin AST ALT Alkaline Phosphatase Troponin I B-Natriuretic Peptide Total Protein Albumin Globulin Albumin/Globulin Ratio 06/24/20 06/24/20 06/24/20 15:40 18:55 20:35 WBC RBC Hgb Hct MCV MCH MCHC RDW Std Deviation RDW Coeff of Ankit Plt Count MPV Immature Gran % (Auto) Neut % (Auto) Lymph % (Auto) [place] % (Auto) Eos % (Auto) Baso % (Auto) Absolute Neuts (auto) Absolute Lymphs (auto) Nucleated RBC % PT INR APTT Specimen Type Sample Site pH Bicarbonate Actual Total CO2 Base Excess O2 Saturation O2 % ABG pCO2 ABG pO2 Andry Test Respiration Rate O2 Delivery Device Vent Mode Tidal Volume POC PEEP Sodium Potassium Chloride Carbon Dioxide Anion Gap BUN Creatinine Estim Creat Clear Calc Est GFR (MDRD) Af Amer Est GFR (MDRD) Non-Af BUN/Creatinine Ratio Glucose Lactic Acid 2.9 H* Calcium Magnesium Total Bilirubin AST ALT Alkaline Phosphatase Troponin I 0.822 H* 0.807 H* B-Natriuretic Peptide Total Protein Albumin Globulin Albumin/Globulin Ratio 06/24/20 06/24/20 06/25/20 21:45 Unknown 00:10 WBC RBC Hgb Hct MCV MCH MCHC RDW Std Deviation RDW Coeff of Ankit Plt Count MPV Immature Gran % (Auto) Neut % (Auto) Lymph % (Auto) [place] % (Auto) Eos % (Auto) Baso % (Auto) Absolute Neuts (auto) Absolute Lymphs (auto) Nucleated RBC % PT 14.2 INR 1.2 APTT 58.7 H Specimen Type Sample Site pH Bicarbonate Actual Total CO2 Base Excess O2 Saturation O2 % ABG pCO2 ABG pO2 Andry Test Respiration Rate O2 Delivery Device Vent Mode Tidal Volume POC PEEP Sodium Potassium Chloride Carbon Dioxide Anion Gap BUN Creatinine Estim Creat Clear Calc Est GFR (MDRD) Af Amer Est GFR (MDRD) Non-Af BUN/Creatinine Ratio Glucose Lactic Acid Calcium Magnesium Total Bilirubin AST ALT Alkaline Phosphatase Troponin I 0.656 H* B-Natriuretic Peptide Total Protein Albumin Globulin Albumin/Globulin Ratio 06/25/20 06/25/20 04:25 04:25 WBC 14.4 H RBC 4.03 L Hgb 12.2 Hct 39.0 MCV 96.8 MCH 30.3 MCHC 31.3 L D RDW Std Deviation 49.3 H RDW Coeff of Ankit 14.1 Plt Count 408 MPV 9.9 Immature Gran % (Auto) 0.800 Neut % (Auto) 77.5 H Lymph % (Auto) 12.6 L [place] % (Auto) 7.5 Eos % (Auto) 1.0 Baso % (Auto) 0.6 Absolute Neuts (auto) 11.2 H Absolute Lymphs (auto) 1.81 Nucleated RBC % 0 PT INR APTT Specimen Type Sample Site pH Bicarbonate Actual Total CO2 Base Excess O2 Saturation O2 % ABG pCO2 ABG pO2 Andry Test Respiration Rate O2 Delivery Device Vent Mode Tidal Volume POC PEEP Sodium 143 Potassium 3.9 Chloride 101 Carbon Dioxide 35.0 H Anion Gap 7 BUN 42 H Creatinine 1.77 H Estim Creat Clear Calc 25.90 Est GFR (MDRD) Af Amer 37 L Est GFR (MDRD) Non-Af 30 L BUN/Creatinine Ratio 23.7 H Glucose 110 H Lactic Acid Calcium 9.3 Magnesium 2.4 Total Bilirubin 0.40 AST 233 H ALT 141 H Alkaline Phosphatase 103 Troponin I B-Natriuretic Peptide Total Protein 6.8 Albumin 2.6 L Globulin 4.2 Albumin/Globulin Ratio 0.6 L Clinical Impression(s) from Imaging Studies Chest X-Ray 06/24/20 07:55 IMPRESSION: Cardiomegaly. Stable increased markings at the lung bases suggestive of bibasilar atelectasis and/or scarring. Moderate size hiatal hernia. Electronically Signed: Ivan Arce, at 8:36 EDT , Service support , Chest CTA 06/24/20 08:32 IMPRESSION: Bibasilar patchy infiltrates. Increased interstitial markings suggests a mild degree of CHF. Moderate sized hiatal hernia. Electronically Signed: Ivan Arce, at 9:17 EDT , Service support , Chest X-Ray 06/24/20 12:55 IMPRESSION: The tip of the endotracheal tube is at 3.9 cm proximal to the dianne. The orogastric tube lies to the left of the midline suggestive of placement within the left lower lobe bronchus. History congestion with small bilateral pleural effusions and bibasilar atelectasis more prominent on the left side. N.B. : The above information has been verbally conveyed by Ivan Arce to RIVAS CELIS on 06/24/2020 13:13:43 (ET). Electronically Signed: Ivan Arce, at 13:17 EDT , Service support , ADDENDUM: 06/24/20 1324 IMPRESSION: The tip of the endotracheal tube is at 3.9 cm proximal to the dianne. The orogastric tube lies to the left of the midline suggestive of placement within the left lower lobe bronchus. History congestion with small bilateral pleural effusions and bibasilar atelectasis more prominent on the left side. N.B. : The above information has been verbally conveyed by Ivan Arce to RIVAS CELIS on 06/24/2020 13:13:43 (ET). Electronically Signed: Ivan Arce, at 13:17 EDT , Service support , Chest X-Ray 06/24/20 16:07 IMPRESSION: 1. Endotracheal tube and enteric tube as described. 2. No other major interval change. Electronically Signed: Celestine Marcial DO at 16:51 EDT Tel [phone], Service support , KUB X-Ray 06/24/20 16:15 IMPRESSION: 1. OG tube as described. 2. No evidence for acute intra-abdominal process. 3. Bilateral pleural effusions. Electronically Signed: Celestien Marcial DO at 16:49 EDT Tel [phone], Service support , ADDENDUM: 06/24/20 1802 Medical Necessity - Tobacco Use Smoking Status: Former smoker Assessment/Plan All Active Problems (Last Reviewed 06/24/20 @ 12:[address] Armond Killian MD) Hypoxemia (Acute) Cardiopulmonary arrest (Acute) Ventricular tachycardia (Acute) Ventricular fibrillation (Acute) Myocardial infarction (Acute) Acute heart failure (Acute) Chronic combined systolic and diastolic CHF (congestive heart failure) (Acute) RECOMMENDATIONS: 1. Continue to wean FiO2 and PEEP to maintain oxygen saturations at or above 90%. 2. Send blood and urine cultures and check strep and urine Legionella antigens along with respiratory viral panel. 3. Continue scheduled bronchodilator therapy. Start IV steroids today as well. 4. Minimize sedation with a goal to maintain a RASS of -1 to 1. 5. Obtain complete echocardiogram. 6. Start appropriate GI prophylaxis. 7. The patient will require eventual diuresis once hemodynamics have stabilized. IMPRESSIONS: 1. Acute on chronic combined respiratory failure The patient presented to the emergency department from the TCU, after she apparently experienced an aspiration event leading to respiratory decompensation and worsening hypoxemia. There is concern that this hypoxemia may have precipitated an acute coronary event. The patient did suffer from cardiopulmonary arrest in the emergency department and did require intubation. Her acid-base status has improved at this time. Plan to continue current supportive measures with assist control mode of mechanical ventilation, with plans to titrate FiO2 and PEEP to maintain oxygen saturations at or above 90%. Over concerns for aspiration, the patient will be continued empirically on Unasyn. The patient will also be continued on scheduled bronchodilator therapy and steroids, over concerns for underlying COPD. 2. Status post cardiopulmonary arrest Clinical concern that hypoxemia may have precipitated cardiac decompensation. Cardiology is currently consulted to assist with management. At this time, we will plan to continue current supportive measures. The patient may require eventual cardiac catheterization, once medically stabilized. Plan to obtain echocardiogram. 3. Encephalopathy Improved. Although there was initial concern for possible anoxic brain injury, over the course of the night, the patient has improved from a mentation standpoint and is now alert and following commands appropriately. Plan to continue to minimize sedation as tolerated with a goal to maintain a RASS of -1 to 1. 4. History of heart failure with preserved ejection fraction/paroxysmal atrial fibrillation Continue current supportive measures with additional medical intervention per cardiology recommendations. 5. Chronic pain syndrome/morbid obesity/hypertension/depression/a nxiety/questionable COPD Complicates care, management, recovery and prognosis. Continue scheduled bronchodilator therapy. CODE status: Discussed CODE status at length including difference between FULL code, DNR-CCA and DNR-CC status. Following discussions about the differences in these status, the patient's daughter requested DNR-CCA CODE STATUS. TIME: 40 minutes of critical care time, independent of procedures, was spent addressing the patient's acute on chronic combined respiratory failure, status post cardiopulmonary arrest, encephalopathy, history of heart failure, review of all data and collaboration with the care team. ([id number]) [id number]: [id number] Critical care first hour
--- NOTE | 2020-06-25 06:57 | ECHOCS_ITS ---
Reason For Study: CARDIOPULMONARY ARREST Procedure This was a limited 2D transthoracic echocardiogram. The study was technically difficult. Contrast injection was performed. Limited views were obtained. Exam performed portable in patient room. Left Ventricle Normal LV size. Mild segmental systolic dysfunction (see wall motion). The estimated ejection fraction is 45 %. Unable to assess diastolic dysfunction. Mid-Anterior : Hypokinetic. Mid-Posterior: Hypokinetic. Mid-Inferior: Hypokinetic. Mid-inferoseptal : Hypokinetic. Mid-anteroseptal : Hypokinetic. [place] : Hypokinetic. Right Ventricle Normal RV size. Normal systolic function. Atria The left atrium is mildly enlarged. Normal right atrium. Mitral Valve There is mild mitral annular calcification. Normal mitral valve. Tricuspid Valve Normal tricuspid valve. Aortic Valve The aortic valve is not well visualized. Pulmonic Valve The pulmonic valve is not well visualized. Great Vessels Normal sized aortic root. Pericardium/Pleural No pericardial effusion. Medication Diluted definity 3ml given slow IV push to enhance endocardial definition. MMode/2D Measurements & Calculations LVIDd: 4.7 cm IVSd: 1.0 cm LVIDs: 3.5 cm LVPWd: 1.0 cm LVAd ap4: 32.7 cm2 FS: 26.0 % EDV(MOD-sp4): 111.1 ml EDV(sp4-el): 112.5 ml LVAs ap4: 20.9 cm2 ESV(MOD-sp4): 51.5 ml ESV(sp4-el): 52.2 ml EF(MOD-sp4): 53.6 % EF(sp4-el): 53.7 % SV(MOD-sp4): 59.6 ml SV(sp4-el): 60.4 ml Interpretation Summary The study was technically difficult. Contrast injection was performed. Limited views were obtained. Mild segmental systolic dysfunction (see wall motion). The estimated ejection fraction is 45 %. The left atrium is mildly enlarged. There is mild mitral annular calcification. Unable to assess diastolic dysfunction. Ordering Physician: David Davis Referring Physician: DENG CURTIS Performed By: Yamileth Alamo RDCS
[2020-06-25 07:11] LABS: Partial Thromboplast Time 53.9 Seconds (24.1-36.2)
--- NOTE | 2020-06-25 07:15 | PCM.PN.HOSP ---
Patient Problems: Active and Suspected Problems (Last Reviewed 06/24/20 @ 12:[address] Armond Killian MD) Hypoxemia (Acute) Cardiopulmonary arrest (Acute) Ventricular tachycardia (Acute) Ventricular fibrillation (Acute) Myocardial infarction (Acute) Acute heart failure (Acute) Chronic combined systolic and diastolic CHF (congestive heart failure) (Acute) Reason for Visit: Cardiopulmonary arrest Subjective: Patient is a 69-year-old lady as well from the transitional care unit to the ED with shortness of breath who experience cardiopulmonary arrest was been evaluated in the ED. Patient was successfully resuscitated with return of spontaneous circulation after almost 2 hours. Patient was intubated in the ED and started on Levophed admitted to the intensive care unit Patient became more responsive whilst in the ICU necessitating initiation of sedation. Seen this a.m. patient is awake on the vent response to simple commands Objective: GENERAL: On the vent HEENT: ET tube in place EYES; Anicteric, NECK; supple, normal thyroid, RESPIRATORY: Diminished to auscultation CARDIOVASCULAR: Regular S1 S2, GI: soft, normoactive bowel sounds, : No Renal angle tenderness; EXTREMITIES: Right foot in surgical dressing MUSCULOSKELETAL: no muscle waisting NEURO: Awake on the vent following simple commands SKIN: No Rash Vitals/I&O's: Vital Signs Temp Pulse Resp BP Pulse Ox 101.6 F H 96 15 109/80 91 06/25/20 07:00 06/25/20 07:00 06/25/20 07:00 06/25/20 07:00 06/25/20 07:00 Oxygen Flow Rate (L/min) 15 Oxygen Delivery Method Mechanical Ventilator Weight: 106.2 kg Body Mass Index (BMI) 39.9 Intake and Output for Last 24 Hours 06/23/20 06/24/20 06/25/20 23:59 23:59 23:59 Intake Total 302.39 / 312.39 378.33 / 378.33 Output Total 900 / 1050 370 / 370 Balance -597.61 / -737.61 8.33 / 8.33 Laboratory Results 06/24/20 07:57: WBC 10.0, RBC 3.94 L, Hgb 11.9 L, Hct 39.9, MCV 101.3 H, MCH 30.2, MCHC 29.8 L, RDW Std Deviation 51.2 H, RDW Coeff of Ankit 13.7, Plt Count 392, MPV 9.3, Immature Gran % (Auto) 0.600, Neut % (Auto) 69.6, Lymph % (Auto) 16.0 L, [place] % (Auto) 8.3, Eos % (Auto) 4.7, Baso % (Auto) 0.8, Absolute Neuts (auto) 7.0, Absolute Lymphs (auto) 1.60, Nucleated RBC % 0 06/24/20 07:57: Sodium 142, Potassium 4.1, Chloride 102, Carbon Dioxide 39.0 H, Anion Gap 1 L, BUN 34 H, Creatinine 1.14 H, Estim Creat Clear Calc 40.22, Est GFR (MDRD) Af Amer 61, Est GFR (MDRD) Non-Af 50 L, BUN/Creatinine Ratio 29.8 H, Glucose 105, Calcium 9.6, Troponin I 0.024 06/24/20 07:57: B-Natriuretic Peptide 1503.0 H 06/24/20 12:35: Specimen Type ART, Sample Site L Radial, pH 7.32 L, Bicarbonate Actual 33.2 H, Total CO2 35, Base Excess 7 H, O2 Saturation 82 L, O2 % 100, ABG pCO2 65.2 H, ABG pO2 53 L, Andry Test Positive, Respiration Rate 12, O2 Delivery Device Adult Vent, Vent Mode AC, Tidal Volume 450, POC PEEP 5 06/24/20 14:25: Lactic Acid 3.7 H* 06/24/20 15:40: APTT 27.6 06/24/20 15:40: Troponin I 0.822 H* 06/24/20 18:55: Troponin I 0.807 H* 06/24/20 20:35: Lactic Acid 2.9 H* 06/24/20 21:45: Troponin I 0.656 H* 06/24/20 : PT 14.2, INR 1.2 06/25/20 00:10: APTT 58.7 H 06/25/20 04:25: WBC 14.4 H, RBC 4.03 L, Hgb 12.2, Hct 39.0, MCV 96.8, MCH 30.3, MCHC 31.3 L D, RDW Std Deviation 49.3 H, RDW Coeff of Ankit 14.1, Plt Count 408, MPV 9.9, Immature Gran % (Auto) 0.800, Neut % (Auto) 77.5 H, Lymph % (Auto) 12.6 L, [place] % (Auto) 7.5, Eos % (Auto) 1.0, Baso % (Auto) 0.6, Absolute Neuts (auto) 11.2 H, Absolute Lymphs (auto) 1.81, Nucleated RBC % 0 06/25/20 04:25: Sodium 143, Potassium 3.9, Chloride 101, Carbon Dioxide 35.0 H, Anion Gap 7, BUN 42 H, Creatinine 1.77 H, Estim Creat Clear Calc 25.90, Est GFR (MDRD) Af Amer 37 L, Est GFR (MDRD) Non-Af 30 L, BUN/Creatinine Ratio 23.7 H, Glucose 110 H, Calcium 9.3, Magnesium 2.4, Total Bilirubin 0.40, AST 233 H, ALT 141 H, Alkaline Phosphatase 103, Total Protein 6.8, Albumin 2.6 L, Globulin 4.2, Albumin/Globulin Ratio 0.6 L 06/25/20 06:45: APTT 53.9 H Current Medications Albuterol Sulfate (Albuterol 2.5 Mg/3 Ml Vial.Neb.) 2.5 mg INHALATION Q2H PRN PRN PRN Reason: SOB/Wheezing Albuterol/Ipratropium (Ipratropium/Albuterol Sulfate 3 Ml Ampul.Neb) 3 ml INHALATION Q4H.RT KIM Last Admin: 06/25/20 06:36 Dose: 3 ml Documented by: Chlorhexidine Gluconate (Chlorhexidine 15 Ml) 15 ml PO BID KIM Last Admin: 06/24/20 21:10 Dose: 15 ml Documented by: Famotidine (Famotidine 20 Mg Tablet) 20 mg NG DAILY [facility] Heparin Sodium (Beef Lung) (Heparin Pf Lock 10 Units/Ml 50 Units/5 Ml Syringe) 50 units IV UD PRN PRN Reason: PICC Line Heparin Flush Heparin Sodium (Porcine) (Heparin Injection (Vial) 5,000 Unit/Ml Vial) 0 unit IV UD PRN; Protocol PRN Reason: dose adjustment Last Admin: 06/24/20 17:33 Dose: 4,000 unit Documented by: Heparin Sodium/Dextrose () 25,000 units in 250 mls @ 10 mls/hr IV .Q25H KIM; Protocol Last Titration: 06/25/20 01:00 Dose: 1,000 units/hr, 10 mls/hr Documented by: Sodium Chloride () 250 mls @ 15 mls/hr IV .[id number] PRN PRN Reason: Saline Flush Sodium Chloride () 250 mls @ 15 mls/hr IV .[id number] PRN PRN Reason: Additional IVPB Infusion Ampicillin Sodium/Sulbactam (Sodium 3 gm/ Sodium Chloride) 112 mls @ 150 mls/hr IV Q8 KIM Last Infusion: 06/25/20 06:35 Dose: Infused Documented by: Fentanyl Citrate 1,000 mcg/ (Sodium Chloride) 100 mls @ 5 mls/hr CONT INF .Q20H KIM; Protocol Last Titration: 06/25/20 07:00 Dose: 100 mcg/hr, 10 mls/hr Documented by: Methylprednisolone (Methylprednisolone 40 Mg/Ml Vial) 40 mg IV Q6 KIM Sodium Chloride (0.9% Saline Lock 10 Ml Syringe) 10 - 40 ml IV UD PRN PRN Reason: Open End PICC Flush Last Admin: 06/24/20 21:11 Dose: 20 ml Documented by: Sodium Chloride (0.9 % Nacl (Sterile) Posiflush 10 Ml) 10 - 40 ml IV UD PRN PRN Reason: Port access or dressing change Sodium Chloride (0.9% Saline Lock 10 Ml Syringe) 10 - 40 ml IV UD PRN PRN Reason: SALINE FLUSH STROKE Vital Signs/Narrative: Vital Signs Temp Pulse Resp BP Pulse Ox 06/25/20 07:00 101.6 F H 96 15 109/80 91 06/25/20 06:00 101.4 F H 91 17 118/91 H 91 06/25/20 05:00 101.3 F H 97 19 H 122/84 H 90 06/25/20 04:00 101.1 F H 85 16 102/72 92 06/25/20 03:49 85 16 91 Medical Necessity - Tobacco Use Smoking Status: Former smoker Assessment/Plan All Active Problems (Last Reviewed 06/24/20 @ 12:[address] Armond Killian MD) Hypoxemia (Acute) Cardiopulmonary arrest (Acute) Ventricular tachycardia (Acute) Ventricular fibrillation (Acute) Myocardial infarction (Acute) Acute heart failure (Acute) Chronic combined systolic and diastolic CHF (congestive heart failure) (Acute) Patient is a 69-year-old lady as well from the transitional care unit to the ED with shortness of breath who experience cardiopulmonary arrest was been evaluated in the ED. Patient was successfully resuscitated with return of spontaneous circulation after almost 2 hours. Patient was intubated in the ED and started on Levophed admitted to the intensive care unit 1. Acute cardiopulmonary arrest with high suspicion for acute myocardial infarction ?Patient did experience cardiopulmonary arrest in the ED Patient was successfully resuscitated with return of spontaneous circulation after almost 2 hours patient was started on heparin drip, ordered serial cardiac enzymes, 2D echo and consult placed to cardiology Dr. Sal Bai was notified from the ED prior to patient being admitted 06/25/2020: Patient level of sensorium did improve was on the vent necessitating initiation of sedation. Patient however is awake and responsive on the vent. 2. Acute hypoxic respiratory failure ?Following patient cardiopulmonary arrest imaging studies obtained in the ED demonstrated Bibasilar patchy infiltrates. Increased interstitial markings suggests a mild degree of CHF. Patient was intubated in the ED prior to patient being admitted to the intensive care unit vent management deferred to pulmonary medicine 06/25/2020; repeat transthoracic echo obtained the day prior demonstrated anteroapical/septal Hypokinesia EF 35-40% 3. Hypotension ?Secondary to cardiogenic shock. Patient started on Levophed 4. Congestive heart failure with preserved ejection fraction ?Recent 2D echo obtained on 06/15/2020 demonstrated EF of 50%. imaging studies obtained in the ED demonstrated Bibasilar patchy infiltrates. Increased interstitial markings suggests a mild degree of CHF patient was however not started on Lasix in view of patient being hypotensive -06/25/2020:Limited TTE showed anteroapical/septal Hypokinesia EF 35-40% 5. Osteomyelitis involving the right second toe Status post debridement and partial amputation on 06/17/[address] Montilla. Bone culture demonstrates staph aureus, MSSA. Patient was discharged to the transitional care unit on Rocephin 6. Acute kidney injury ?Active to be secondary to acute tubular necrosis following hypotension of the patient's cardiopulmonary arrest monitoring daily BMPs. 7. Paroxysmal A. fib ?Rate controlled 8. 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 with BMI of 40.6 9. Essential hypertension -Hypertensives on hold in view of patient's hypotension 10. Depression with anxiety -Resume home meds after patient is weaned off the vent 11. Chronic hypoxic respiratory failure on baseline home O2 secondary to COPD -Patient currently on the vent 12. DVT prophylaxis ? heparin Inpatient E&M: [id number] [facility] L3
[2020-06-25] MEDS: 0.9% Saline Lock 10 ML Syringe IV ×3 (09:11→20:40)
--- NOTE | 2020-06-25 09:51 | EKG12_ITS ---
Test Reason : CODE BLUE Blood Pressure : / mmHG Vent. Rate : 127 BPM Atrial Rate : 127 BPM P-R Int : 000 ms QRS Dur : 162 ms QT Int : 404 ms P-R-T Axes : 000 263 047 degrees QTc Int : 587 ms Wide QRS tachycardia Non-specific intra-ventricular conduction block Abnormal ECG Confirmed by ROCAEL LAMBERT, BOBBI ([id number]), commercial production editor KAY SERRANO ([id number]) on 06/30/2020 11:49:28 AM Referred By: Tish Goldstein Confirmed By:BOBBI COTE MD
[2020-06-25 11:26] LABS: M R Staph aureus DNA By PCR Negative (Negative); Probe Check PASS; Specimen Processing Control PASS
--- NOTE | 2020-06-25 11:35 | PCM.NTREPORT ---
Nutrition Therapy Report - History Nutrition Services has been consulted to:: Manage enteral nutrition Current diet / nutrition support order:: none ordered - Anthropometric Measurements Height:: 5 ft 4.17 in Weight:: 106.2 kg Body Mass Index (BMI):: 39.9 - Relevant Labs Relevant Labs:: WBC 14.4 K/mm3 (4.4-11.0) H 06/25/20 04:25 RBC 4.03 M/mm3 (4.2-5.4) L 06/25/20 04:25 Hgb 11.9 g/dL (12.0-15.0) L 06/24/20 07:57 MCV 101.3 fL (81-99) H 06/24/20 07:57 MCHC 31.3 g/dL (32-36) L D 06/25/20 04:25 RDW Std Deviation 49.3 fl (35.1-43.9) H 06/25/20 04:25 Neut % (Auto) 77.5 % (47-70) H 06/25/20 04:25 Lymph % (Auto) 12.6 % (19-41) L 06/25/20 04:25 Absolute Neuts (auto) 11.2 X10^3/uL (2.0-7.7) H 06/25/20 04:25 APTT 53.9 Seconds (24.1-36.2) H 06/25/20 06:45 Carbon Dioxide 35.0 mmol/L (21.0-32.0) H 06/25/20 04:25 Anion Gap 1 (5-15) L 06/24/20 07:57 BUN 42 mg/dL (7-18) H 06/25/20 04:25 Creatinine 1.77 mg/dL (0.55-1.02) H 06/25/20 04:25 Est GFR (MDRD) Af Amer 37 mL/min (>60) L 06/25/20 04:25 Est GFR (MDRD) Non-Af 30 mL/min (>60) L 06/25/20 04:25 BUN/Creatinine Ratio 23.7 RATIO (10-20) H 06/25/20 04:25 Glucose 110 mg/dL (74-106) H 06/25/20 04:25 Lactic Acid 2.9 mmol/L (0.4-1.9) H* 06/24/20 20:35 AST 233 U/L (15-37) H 06/25/20 04:25 ALT 141 U/L (13-56) H 06/25/20 04:25 Troponin I 0.656 ng/mL (<0.045) H* 06/24/20 21:45 B-Natriuretic Peptide 1503.0 pg/mL (0-100) H 06/24/20 07:57 Albumin 2.6 g/dL (3.2-5.0) L 06/25/20 04:25 Albumin/Globulin Ratio 0.6 RATIO (0.9-2.4) L 06/25/20 04:25 - Assessment Food / Nutrition-Related History:: Unable to interview pt at this time. Currently intubated. NGT in place. 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 Pt was a res on [facility] prior to admission, where she reportedly aspirated on a cookie. 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 Was offered Ensure Pudding or Magic Cup BID and Rosendo BID for recent osteomyelitis and debridement of R toe. Pt was on a cardiac diet w/ chopped meats provided as she reported difficulty chewing tough meats. Hx of wt fluctuations d/t CHF; per EMR wt on 06/15/20 was 244.3# and CBW 234.1#-10.2#/4% wt loss x 10 days, significant. However pt has been on diuretics in combination w/ therapeutic diet so cannot attribute all wt loss to inadequate oral intake. Per jean-paul [place] to initiate nutrition support this date. - Nutrition Diagnosis Problem / Etiology / Signs & Symptoms (PES):: Inadequate energy intake related to increased energy needs with intubation, recent osteomyelitis w/ debridement as evidenced by inability to consume PO nutrition since admission. Evidence of Malnutrition Exists:: No - Nutrition Intervention Nutrition Prescription:: Will use ASPEN guidelines for critically ill, obese patients: 11-14 calories/kg CBW, 1.2 g protein per kg CBW- 2578-8077 calories/day, 120-130g protein/day - Food / Nutrient Delivery Interventions Summary of nutrition intervention:: Will order enteral nutrition support as detailed below and continue Rosendo BID via NGT for wound healing. Recommend ORTHOPEDIC DESIGNER evaluation prior to diet advancement if extubated. Nutrition support ordered as / adjusted to:: Vital High Protein at goal rate of 60mL/hour w/60mL H2O flush every 4 hours to provide 1440 calories, 125.7g protein, and 1563mL total fluid per day. Enteral nutrition support will be administered via gravity feed bag. Total formual to be administered in 24 hours: 1440mL. Recommend 120mL for first 4 hours (approx. 10 drops/minute, 3 drops per 15 seconds); increase to 180mL for next 4 hours (approx. 15 drops/minute, 4 drops per 15 seconds); Goal rate is 240mL every 4 hours (approx 20 drops/minute, 5 drops per 15 seconds). Will order 1 packet Rosendo BID to be mixed in 8 oz of water and administered via NGT. Will make NPO while intubated. *ORTHOPEDIC DESIGNER EVAL* prior to PO diet advancement if extubated. - MNT Monitoring Further MNT monitoring and evaluation required?: Yes MNT Follow-up in:: 1-2 days
--- NOTE | 2020-06-25 12:30 | CASEMGMT ---
Patient was just sent to [facility] TCU last week. SW will follow to assist with d/c planning. Lorri HERRERA
--- NOTE | 2020-06-25 12:38 | PN.CARD_ITS ---
Subjectve: The patient remains in the ICU. She is mechanically intubated and ventilated. Objective: Vital Signs Temp Pulse Resp BP Pulse Ox 101.9 F H 68 14 74/53 L 91 06/25/20 12:00 06/25/20 12:00 06/25/20 12:00 06/25/20 12:00 06/25/20 12:00 Oxygen Flow Rate (L/min) 15 Oxygen Delivery Method Mechanical Ventilator Weight: 234 lb 2.095 oz Body Mass Index (BMI) 39.9 Intake and Output for Last 24 Hours 06/23/20 06/24/20 06/25/20 23:59 23:59 23:59 Intake Total 302.39 / 312.39 488.49 / 488.49 Output Total 900 / 1050 430 / 430 Balance -597.61 / -737.61 58.49 / 58.49 Lungs: Rhonchi Cardiovascular: Regular Rhythm, Normal S1, Normal S2 06/24/20 12:35: pH 7.32 L, Bicarbonate Actual 33.2 H, Base Excess 7 H, O2 Saturation 82 L, ABG pCO2 65.2 H, ABG pO2 53 L, Andry Test Positive 06/24/20 14:25: Lactic Acid 3.7 H* 06/24/20 15:40: APTT 27.6 06/24/20 15:40: Troponin I 0.822 H* 06/24/20 18:55: Troponin I 0.807 H* 06/24/20 20:35: Lactic Acid 2.9 H* 06/24/20 21:45: Troponin I 0.656 H* 06/24/20 : PT 14.2, INR 1.2 06/25/20 00:10: APTT 58.7 H 06/25/20 04:25: WBC 14.4 H, RBC 4.03 L, Hgb 12.2, Hct 39.0, MCV 96.8, MCH 30.3, MCHC 31.3 L D, Plt Count 408, MPV 9.9, Immature Gran % (Auto) 0.800, Neut % (Auto) 77.5 H, Lymph % (Auto) 12.6 L, [place] % (Auto) 7.5, Eos % (Auto) 1.0, Baso % (Auto) 0.6, Absolute Neuts (auto) 11.2 H, Nucleated RBC % 0 06/25/20 04:25: Sodium 143, Potassium 3.9, Chloride 101, Carbon Dioxide 35.0 H, Anion Gap 7, BUN 42 H, Creatinine 1.77 H, Est GFR (MDRD) Af Amer 37 L, Est GFR (MDRD) Non-Af 30 L, BUN/Creatinine Ratio 23.7 H, Glucose 110 H, Calcium 9.3, Magnesium 2.4, Total Bilirubin 0.40 06/25/20 06:45: APTT 53.9 H Rhythm: Sinus rhythm ECHO: 06-24-2020 Interpretation Summary Anteroseptal and apical Hypokinesia EF 35-40% Limited TTE 06-15-2020 Per the report the LVEF was listed at 50% with findings of mild MR/AI [facility] echocardiogram, per previous [facility] medical records available for review from 2017, demonstrated that in 2012 the patient had a report of LV dysfunction with an LVEF of 40%-during PVCs. Cardiac Cath: Per previous [facility] medical records from 01-29-2018 there is a comment that the patient had a previous [facility] cardiac catheterization from 09-03-2013 that demonstrated no obstructive CAD. EPS: Her previous [facility] medical records from 01-29-2018 there is a comment that the patient underwent an EP study that, the patient had been previously evaluated and underwent ablation of PVC-successful Medical Necessity - Tobacco Use Smoking Status: Former smoker Assessment/Plan 1. Acute cardiopulmonary arrest The patient experienced an acute cardiopulmonary arrest. There is concerns as to whether or not this may have been initiated by aspiration pneumonia and hypoxemia. According to the medical records available for review this arrest was a prolonged event. She was evaluated by interventional cardiology at the time who did not recommend urgent/emergent diagnostic cardiac catheterization. This was pending the outcome of her cardiopulmonary arrest, neurologic status, multiple comorbidities, etc. The patient has been evaluated by [facility] cardiology in the past. The information obtained is as noted above. At the present time the patient is in the ICU. She remains mechanically intubated and ventilated. She is febrile. She has had evidence of hypotension. She is going to continue supportive care at this time. Depending upon the outcome of her multiple medical issues she can be considered for future evaluation in the cardiac catheterization laboratory. 2. Paroxysmal atrial fibrillation/ventricular tachycardia The patient has, per previous medical records from 2018, reports of paroxysmal atrial fibrillation as well as paroxysmal ventricular tachycardia. She has been evaluated for these issues at [facility]. It appears she was treated medically and underwent EPS/RFA of PVCs. At the moment she will continue to have her rate and rhythm monitored. Her medications can be adjusted as needed. 3. CHF: Acute systolic She has a history of CHF. In the past this was reported as combined systolic and diastolic. There are concerns at this time she may have experienced, based on her event, an episode of acute systolic CHF. She remains in the ICU mechanically intubated and ventilated. She will continue to be followed. She will continue medical management as she is able to. 4. Hypertension At the moment patient's blood pressure is low. This may be related to concerns of an underlying aspiration and pneumonia and possible sepsis superimposed on her underlying cardiovascular findings. She is continuing evaluation care per pulmonology/critical care medicine. She will need continued support which may include IV fluids and/or IV vasopressors. 5. COPD Patient has a history of COPD. She will need to continue evaluation care per internal medicine and pulmonology. 7. Obstructive sleep apnea The patient has per previous records a history of obstructive sleep apnea for which she has been reported is noncompliant with follow-up and care. She will need continued valuation care by her primary care physicians. 8. Obesity The patient has been reported as being obese in the past and currently. She apparently has been counseled in the past regarding diet and activity, etc., to try and bring her weight under better control. Overall, at the present time, the patient will continue in the ICU. She will continue supportive care. Depending upon the outcome of her febrile illness, multiple medical issues, etc., consideration can be given over time as to whether she is a candidate for further evaluation and care in the cardiac catheterization laboratory. In the interim she will continue supportive medical management as deemed appropriate. Comment: The patient's case has been discussed and reviewed with Dr. Davis and Dr. Killian. This note was generated using a voice recognition system and there may be incorrect words, spelling or punctuation that were not noted when reviewing the office note prior to saving.
[2020-06-25] MEDS: Chlorhexidine 15 ML PO ×2 (12:49→21:18)
[2020-06-25] MEDS: TITRATION PARAMETER CHANGE 1 EACH IV (12:50)
[2020-06-25] MEDS: Aspirin E.C. 81 MG Tablet PO (12:54)
[2020-06-25] MEDS: Famotidine 20 MG Tablet NG (12:54)
[2020-06-25] MEDS: HEPARIN/D5w 25,000 UNITS 25,000 UNITS/250 ML IV.SOLN. 11 UNITS IV (13:09)
[2020-06-25 15:05] LABS: Partial Thromboplast Time 61.1 Seconds (24.1-36.2)
--- NOTE | 2020-06-25 17:00 | NURSING ---
ed re to chronic illness deferred till acute illness resolving
[2020-06-25] MEDS: Vital High Protein 1,000 ML 60 ML GT (17:50)
[2020-06-25] MEDS: Acetaminophen 650 MG/20 ML UDC NG (17:52)
[2020-06-25] MEDS: Juven (unflavored) Packet 1 PACKET NG (17:53)
[2020-06-25] MEDS: Insulin Lispro 100 UNIT/ML INSULN.PEN SC ×2 (17:57→23:15)
[2020-06-25 18:40] LABS: Bedside Glucose 176 mg/dL (70-110)
--- NOTE | 2020-06-25 19:24 | PCM.PROGNOTE ---
Patient Problems: Active and Suspected Problems (Last Reviewed 06/24/20 @ 12:[address] Armond Killian MD) Hypoxemia (Acute) Cardiopulmonary arrest (Acute) Ventricular tachycardia (Acute) Ventricular fibrillation (Acute) Myocardial infarction (Acute) Acute heart failure (Acute) Chronic combined systolic and diastolic CHF (congestive heart failure) (Acute) Subjective: Patient seen and examined bedside. Patient is intubated after coding in ED for about 2 hours before transfer to ICU. Patient was being treated by podiatry for osteomyelitis right toe with surgical debridement. - Physical Exam Vitals/I&O's: Vital Signs Temp Pulse Resp BP Pulse Ox 102.3 F H 73 19 H 130/68 H 87 06/25/20 17:00 06/25/20 17:27 06/25/20 17:27 06/25/20 17:30 06/25/20 17:27 Oxygen Flow Rate (L/min) 15 Oxygen Delivery Method Mechanical Ventilator Weight: 106.2 kg Body Mass Index (BMI) 39.9 Intake and Output for Last 24 Hours 06/23/20 06/24/20 06/25/20 23:59 23:59 23:59 Intake Total 302.39 / 312.39 996.42 / 996.42 Output Total 900 / 1050 515 / 515 Balance -597.61 / -737.61 481.42 / 481.42 General: No apparent distress Extremities: Capillary Refill Less than 3 Seconds, Cyanosis - left toes more than right, improvement noted per nursing. Digits are cool to the touch, Diminished Peripheral Pulses, Edema Skin: Incision - right 2nd toe incision skin edges well coappted, no drainage, sutures intact, minimal erythema present Neurological: - - unable to assess Microbiology Past 72 Hours 06/24/20 22:00 Sputum, Induced/Lukens Gram Stain - Final 06/25/20 09:15 Urine Catheter - Naqvi Streptococcus pneumoniae Antigen (M - Final 06/25/20 09:15 Urine Catheter - Naqvi Legionella Antigen - Final 06/25/20 07:35 Mucosa - Nose Respiratory Panel (PCR) - Final Laboratory Results 06/24/20 18:55: Troponin I 0.807 H* 06/24/20 20:35: Lactic Acid 2.9 H* 06/24/20 21:45: Troponin I 0.656 H* 06/25/20 00:10: APTT 58.7 H 06/25/20 04:25: WBC 14.4 H, RBC 4.03 L, Hgb 12.2, Hct 39.0, MCV 96.8, MCH 30.3, MCHC 31.3 L D, RDW Std Deviation 49.3 H, RDW Coeff of Ankit 14.1, Plt Count 408, MPV 9.9, Immature Gran % (Auto) 0.800, Neut % (Auto) 77.5 H, Lymph % (Auto) 12.6 L, [place] % (Auto) 7.5, Eos % (Auto) 1.0, Baso % (Auto) 0.6, Absolute Neuts (auto) 11.2 H, Absolute Lymphs (auto) 1.81, Nucleated RBC % 0 06/25/20 04:25: Sodium 143, Potassium 3.9, Chloride 101, Carbon Dioxide 35.0 H, Anion Gap 7, BUN 42 H, Creatinine 1.77 H, Estim Creat Clear Calc 25.90, Est GFR (MDRD) Af Amer 37 L, Est GFR (MDRD) Non-Af 30 L, BUN/Creatinine Ratio 23.7 H, Glucose 110 H, Calcium 9.3, Magnesium 2.4, Total Bilirubin 0.40, AST 233 H, ALT 141 H, Alkaline Phosphatase 103, Total Protein 6.8, Albumin 2.6 L, Globulin 4.2, Albumin/Globulin Ratio 0.6 L 06/25/20 06:45: APTT 53.9 H 06/25/20 08:30: MRSA (PCR) Negative 06/25/20 14:30: APTT 61.1 H 06/25/20 17:50: POC Glucose 176 H Current Medications Acetaminophen (Acetaminophen 650 Mg/20 Ml Udc) 650 mg NG Q4H PRN PRN PRN Reason: temp>101.0 Last Admin: 06/25/20 17:52 Dose: 650 mg Documented by: Albuterol Sulfate (Albuterol 2.5 Mg/3 Ml Vial.Neb.) 2.5 mg INHALATION Q2H PRN PRN PRN Reason: SOB/Wheezing Albuterol/Ipratropium (Ipratropium/Albuterol Sulfate 3 Ml Ampul.Neb) 3 ml INHALATION Q4H.RT KIM Last Admin: 06/25/20 19:21 Dose: 3 ml Documented by: Aspirin (Aspirin E.C. 81 Mg Tablet) 81 mg PO DAILY@0800 [facility] Last Admin: 06/25/20 12:54 Dose: 81 mg Documented by: Chlorhexidine Gluconate (Chlorhexidine 15 Ml) 15 ml PO BID [facility] Last Admin: 06/25/20 12:49 Dose: 15 ml Documented by: Dextrose (Dextrose 50%-Water 25 Gm/50 Ml Disp.Syrin) 0 gm IV X1 PRN; Protocol PRN Reason: Hypoglycemia Famotidine (Famotidine 20 Mg Tablet) 20 mg NG DAILY [facility] Last Admin: 06/25/20 12:54 Dose: 20 mg Documented by: Glucagon (Glucagon 1 Mg/Ml Syringe) 1 mg IM .X1 PRN PRN Reason: Hypoglycemia Heparin Sodium (Beef Lung) (Heparin Pf Lock 10 Units/Ml 50 Units/5 Ml Syringe) 50 units IV UD PRN PRN Reason: PICC Line Heparin Flush Heparin Sodium (Porcine) (Heparin Injection (Vial) 5,000 Unit/Ml Vial) 0 unit IV UD PRN; Protocol PRN Reason: dose adjustment Last Admin: 06/24/20 17:33 Dose: 4,000 unit Documented by: Heparin Sodium/Dextrose () 25,000 units in 250 mls @ 10 mls/hr IV .Q25H [facility]; Protocol Last Admin: 06/25/20 13:09 Dose: 1,100 units/hr, 11 mls/hr Documented by: Sodium Chloride () 250 mls @ 15 mls/hr IV .[id number] PRN PRN Reason: Saline Flush Sodium Chloride () 250 mls @ 15 mls/hr IV .[id number] PRN PRN Reason: Additional IVPB Infusion Ampicillin Sodium/Sulbactam (Sodium 3 gm/ Sodium Chloride) 112 mls @ 150 mls/hr IV Q8 [facility] Last Infusion: 06/25/20 13:50 Dose: Infused Documented by: Fentanyl Citrate 1,000 mcg/ (Sodium Chloride) 100 mls @ 5 mls/hr CONT INF .Q20H [facility]; Protocol Last Admin: 06/25/20 13:56 Dose: 150 mcg/hr, 15 mls/hr Documented by: Enteral Nutritional Formula (Vital High Protein) 1,000 mls @ 60 mls/hr GT .[id number] [facility] Last Admin: 06/25/20 17:50 Dose: 60 mls/hr Documented by: Norepinephrine Bitartrate 8 mg (/ Sodium Chloride) 250 mls @ 9.375 mls/hr CONT INF .[id number] [facility]; Protocol Last Titration: 06/25/20 17:30 Dose: 4 mcg/min, 7.5 mls/hr Documented by: Dexmedetomidine HCl 1,000 mcg/ (Sodium Chloride) 250 mls @ 13.275 mls/hr CONT INF .[id number] [facility]; Protocol Last Admin: 06/25/20 18:25 Dose: 0.8 mcg/kg/hr, 21.2 mls/hr Documented by: Insulin Human Lispro (Insulin Lispro 100 Unit/Ml Insuln.Pen) 0 unit SC Q6 [facility]; Protocol Last Admin: 06/25/20 17:57 Dose: 1 units Documented by: L-Arginine/L-Glutamine/Calcium HMB (Rosendo (Unflavored) Packet) [facility] Last Admin: 06/25/20 17:53 Dose: 1 packet Documented by: Methylprednisolone (Methylprednisolone 40 Mg/Ml Vial) 40 mg IV Q6 [facility] Last Admin: 06/25/20 17:56 Dose: 40 mg Documented by: Senna/Docusate Sodium (Senna/Docusate Sodium 1 Tablet) 2 tablet NG BID [facility] Sodium Chloride (0.9% Saline Lock 10 Ml Syringe) 10 - 40 ml IV UD PRN PRN Reason: Open End PICC Flush Last Admin: 06/25/20 17:54 Dose: 10 ml Documented by: Sodium Chloride (0.9 % Nacl (Sterile) Posiflush 10 Ml) 10 - 40 ml IV UD PRN PRN Reason: Port access or dressing change Sodium Chloride (0.9% Saline Lock 10 Ml Syringe) 10 - 40 ml IV UD PRN PRN Reason: SALINE FLUSH Medical Necessity - Tobacco Use Smoking Status: Former smoker Assessment/Plan All Active Problems (Last Reviewed 06/24/20 @ 12:[address] Armond Killian MD) Hypoxemia (Acute) Cardiopulmonary arrest (Acute) Ventricular tachycardia (Acute) Ventricular fibrillation (Acute) Myocardial infarction (Acute) Acute heart failure (Acute) Chronic combined systolic and diastolic CHF (congestive heart failure) (Acute) laceration right dorsal 2nd toe down to bone s/p debridement on 06/17/[address] Montilla Osteomyelitis right 2nd toe Cellulitis right forefoot Hammer toe, right Multiple comorbidities Patient seen and examined bedside. Patient is on a ventilator and unresponsive Right foot continues to improve, s/p debridement. Wound culture with staph aureus, MRSA DNA PCR negative. Surgical cultures + as well, patient on antibiotic therapy with Dr. Saavedra consulted. Patient did have LEAS in February which showed no arterial occlusive disease. Clinically there is no evidence of ischemia to the foot or ankle. There is some cyanosis noted to the digits. CFT is within 3 seconds. Upon discussion with nurse it was noted that upon arrival to ICU the patient's toes were black. They then pinked back up after regaining a more normal pressure. Patient's pressure is a little low upon exam which may be contributing to the cyanosis. Recommend continued monitoring of digits. Changed dressing today - applied betadin, gauze, kerlix. Continue dressing changes No weightbearing to right forefoot, ok for heel weightbearing. Podiatry will continue to follow. Please contact if any questions.
[2020-06-25] MEDS: Senna/Docusate Sodium 1 Tablet 2 TABLET NG (21:18)
[2020-06-25 23:15] LABS: Bedside Glucose 191 mg/dL (70-110)
--- NOTE | 2020-06-25 23:40 | NURSING ---
Pt RASS +2, she's trying to sit up in bed and reach ETT in order to pull it out;unsuccessfully attempted to redirect pt and reorient to situation. Fentanyl and Precedex increased, pt repositioned. Pt cont to bang on bedrails, stomp feet in bed. Pt then locks feet on F/C tubing and pulls down, cath pulled from statlock and then pt stopped as the balloon was pulled taught and grimaced. Yamilex care provided, cath cleaned thoroughly and balloon deflated and reinserted/reinflated, then seated and secured in statlock again. cath tubing placed on left side of pt and run under bath blanket in order to prevent pt from pulling at tubing again w/her feet. RT Lisa and RN Mehran both attempted to reorient pt to situation unsuccessfully as pt forcefully tries to yell around the ETT. Pt's restraints are secured, NG, ETT and sxn tubing out of reach.
[2020-06-26] VITALS (40 sets, daily range): BP systolic 97–139; BP diastolic 60–96; PULSE 58–84; RESP 13–21; TEMP 36.3–38.8; O2SAT 82–96
--- NOTE | 2020-06-26 02:49 | NURSING ---
Pt sitting up, throwing legs out of bed, trying to get up; trying to yell around ETT again, toes gripping F/C tubing and trying to pull that as well. Pt reoriented to situation and surroundings, shakes head no. Fentanyl increased to 200mcg, Precedex is already at upper limit. Pt repositioned, cath collection bag placed on lower point on bed and tubing draped over left side to protect pt.
[2020-06-26] MEDS: Ipratropium/Albuterol Sulfate 3 ML AMPUL.NEB INHALATION ×6 (02:50→23:50)
[2020-06-26 04:03] LABS: Absolute Lymphocyte Count 0.49 X10^3/uL (0.83-4.51); Absolute Neutrophil Count 14.1 X10^3/uL (2.0-7.7); Basophil# 0.03 X10^3/uL; Basophil% 0.2 % (0-1); Eosinophil# 0.13 X10^3/uL; Eosinophils% 0.8 % (0-5); Hematocrit 36.3 % (37-47); Hemoglobin 11.1 g/dL (12.0-15.0); Lymphocyte # 0.49 X10^3/ul (4.0); Lymphocyte % 3.2 % (19-41); Mean Corp Hgb Conc 30.6 g/dL (32-36); Mean Corpuscular Volume 98.1 fL (81-99); Mean Platelet Vol. 10.3 fl (6.2-12.0); Monocyte# 0.49 X10^3/uL; Monocyte% 3.2 % (0-10); NRBC Flagged by Analyzer 0 % (0-5); Neutrophil # 14.07 X10^3/uL (2.7-7.7); Neutrophil % 91.7 % (47-70); POSITIVE DIFFERENTIAL YES; POSITIVE MORPHOLOGY YES; Platelet Count 368 K/mm3 (150-450); RBC Distribution Width CV 14.4 % (11.6-14.6); RBC Distribution Width SD 52.1 fl (35.1-43.9); White Blood Count 15.4 K/mm3 (4.4-11.0)
[2020-06-26 04:07] LABS: Differential Indicated SCAN CRITERIA MET
[2020-06-26] MEDS: Vital High Protein 1,000 ML 60 ML GT (04:09)
[2020-06-26] MEDS: 0.9% Saline Lock 10 ML Syringe IV (04:10)
[2020-06-26 04:23] LABS: ALB/GLOB Ratio 0.6 RATIO (0.9-2.4); AST(SGOT) 97 U/L (15-37); Alanine Aminotransfer ALT/SGPT 94 U/L (13-56); Albumin, Serum 2.4 g/dL (3.2-5.0); Alkaline Phosphatase 87 U/L (45-117); Anion Gap 9 (5-15); BUN 61 mg/dL (7-18); BUN/Creat Ratio 18.8 RATIO (10-20); Calcium,Total 8.8 mg/dL (8.5-10.1); Chloride 101 mmol/L (98-107); Creatinine, Serum 3.24 mg/dL (0.55-1.02); EST Glomerular Filtration Rate 15 mL/min (>60); Est Glom Filt Rate - Afr Amer 18 mL/min (>60); Estimated Creatinine Clearance 14.15 ml/min; Globulin 4.3 g/dL (2.2-4.2); Glucose 189 mg/dL (74-106); Potassium 3.8 mmol/L (3.5-5.1); Protein, Total 6.7 g/dL (6.4-8.2); Sodium Level 142 mmol/L (136-145)
[2020-06-26 04:26] LABS: Partial Thromboplast Time 78.1 Seconds (24.1-36.2)
[2020-06-26 04:32] LABS: Differential Comment SCANNED
[2020-06-26] MEDS: Insulin Lispro 100 UNIT/ML INSULN.PEN SC ×3 (05:31→18:32)
--- NOTE | 2020-06-26 06:10 | PN_ITS ---
Subjective: The patient was seen and examined at the bedside this morning. Events from the last 24 hours have been reviewed. The patient currently has a low-grade fever with a T-max overnight noted to be 102.6 ?F. Creatinine has worsened this morning to 3.24. The patient remains on Precedex and fentanyl for sedation. Sputum Gram stain revealed 4+ gram-positive cocci. Therefore, vancomycin was added this morning. The patient is not currently requiring vasopressor support. The patient is currently documented to be overall net +1.2 L for the hospital admission. Objective: The patient's most recent lab work, culture data and imaging studies have all been personally reviewed. Surface echocardiogram revealed mild segmental systolic dysfunction with an ejection fraction of 45%. Strep and urine Legionella antigens were negative. Respiratory viral panel was negative. Blood, urine and sputum cultures are pending. General: - - Remains intubated, sedated and mechanically ventilated. The patient easily becomes agitated and restless with stimulation. HEENT: Atraumatic, PERRLA, Normocephalic Oral: No Gingival or Mucosal Lesions/ Ulcerations, - - Endotracheal and OG tubes in place. Neck: Supple, No Nodes, Trachea Midline Lungs: Diminished, - - Scant rhonchi Cardiovascular: Regular rate, Regular Rhythm, Normal S1, Normal S2, No murmurs Abdomen: Bowel Sounds Present, Soft, Non Tender, Obese Extremities: No clubbing, No cyanosis, Edema Skin: - - No significant change from previous. Musculoskeletal: No Muscle Wasting Lymphatic: No Cervical, Supraclavicular, or Inguinal Adenopathy Neurological: - - No focal neurological deficits. Moves all extremities spontaneously. Psych/Mental Status: Agitated, Impulsive, Restless Vital Signs Temp Pulse Resp BP Pulse Ox 100.1 F H 73 16 120/79 92 06/26/20 06:00 06/26/20 06:00 06/26/20 06:00 06/26/20 06:00 06/26/20 06:00 Oxygen Flow Rate (L/min) 15 Oxygen Delivery Method Mechanical Ventilator Weight: 237 lb 14.06 oz Body Mass Index (BMI) 39.9 Intake and Output for Last 24 Hours 06/24/20 06/25/20 06/26/20 23:59 23:59 23:59 Intake Total 302.39 / 312.39 1596.08 / 1674.13 844.42 / 844.42 Output Total 900 / 1050 643 / 643 111 / 111 Balance -597.61 / -737.61 953.08 / 1031.13 733.42 / 733.42 Labs (Last 48 Hours) 06/24/20 06/24/20 06/24/20 07:57 07:57 07:57 WBC 10.0 RBC 3.94 L Hgb 11.9 L Hct 39.9 MCV 101.3 H MCH 30.2 MCHC 29.8 L RDW Std Deviation 51.2 H RDW Coeff of Ankit 13.7 Plt Count 392 MPV 9.3 Immature Gran % (Auto) 0.600 Neut % (Auto) 69.6 Lymph % (Auto) 16.0 L [place] % (Auto) 8.3 Eos % (Auto) 4.7 Baso % (Auto) 0.8 Absolute Neuts (auto) 7.0 Absolute Lymphs (auto) 1.60 Nucleated RBC % 0 Differential Comment PT INR APTT Specimen Type Sample Site pH Bicarbonate Actual Total CO2 Base Excess O2 Saturation O2 % ABG pCO2 ABG pO2 Andry Test Respiration Rate O2 Delivery Device Vent Mode Tidal Volume POC PEEP Sodium 142 Potassium 4.1 Chloride 102 Carbon Dioxide 39.0 H Anion Gap 1 L BUN 34 H Creatinine 1.14 H Estim Creat Clear Calc 40.22 Est GFR (MDRD) Af Amer 61 Est GFR (MDRD) Non-Af 50 L BUN/Creatinine Ratio 29.8 H Glucose 105 Lactic Acid Calcium 9.6 Magnesium Total Bilirubin AST ALT Alkaline Phosphatase Troponin I 0.024 B-Natriuretic Peptide 1503.0 H Total Protein Albumin Globulin Albumin/Globulin Ratio MRSA (PCR) POC Glucose 06/24/20 06/24/20 06/24/20 12:35 14:25 15:40 WBC RBC Hgb Hct MCV MCH MCHC RDW Std Deviation RDW Coeff of Ankit Plt Count MPV Immature Gran % (Auto) Neut % (Auto) Lymph % (Auto) [place] % (Auto) Eos % (Auto) Baso % (Auto) Absolute Neuts (auto) Absolute Lymphs (auto) Nucleated RBC % Differential Comment PT INR APTT 27.6 Specimen Type ART Sample Site L Radial pH 7.32 L Bicarbonate Actual 33.2 H Total CO2 35 Base Excess 7 H O2 Saturation 82 L O2 % 100 ABG pCO2 65.2 H ABG pO2 53 L Andry Test Positive Respiration Rate 12 O2 Delivery Device Adult Vent Vent Mode AC Tidal Volume 450 POC PEEP 5 Sodium Potassium Chloride Carbon Dioxide Anion Gap BUN Creatinine Estim Creat Clear Calc Est GFR (MDRD) Af Amer Est GFR (MDRD) Non-Af BUN/Creatinine Ratio Glucose Lactic Acid 3.7 H* Calcium Magnesium Total Bilirubin AST ALT Alkaline Phosphatase Troponin I B-Natriuretic Peptide Total Protein Albumin Globulin Albumin/Globulin Ratio MRSA (PCR) POC Glucose 06/24/20 06/24/20 06/24/20 15:40 18:55 20:35 WBC RBC Hgb Hct MCV MCH MCHC RDW Std Deviation RDW Coeff of Ankit Plt Count MPV Immature Gran % (Auto) Neut % (Auto) Lymph % (Auto) [place] % (Auto) Eos % (Auto) Baso % (Auto) Absolute Neuts (auto) Absolute Lymphs (auto) Nucleated RBC % Differential Comment PT INR APTT Specimen Type Sample Site pH Bicarbonate Actual Total CO2 Base Excess O2 Saturation O2 % ABG pCO2 ABG pO2 Andry Test Respiration Rate O2 Delivery Device Vent Mode Tidal Volume POC PEEP Sodium Potassium Chloride Carbon Dioxide Anion Gap BUN Creatinine Estim Creat Clear Calc Est GFR (MDRD) Af Amer Est GFR (MDRD) Non-Af BUN/Creatinine Ratio Glucose Lactic Acid 2.9 H* Calcium Magnesium Total Bilirubin AST ALT Alkaline Phosphatase Troponin I 0.822 H* 0.807 H* B-Natriuretic Peptide Total Protein Albumin Globulin Albumin/Globulin Ratio MRSA (PCR) POC Glucose 06/24/20 06/24/20 06/25/20 21:45 Unknown 00:10 WBC RBC Hgb Hct MCV MCH MCHC RDW Std Deviation RDW Coeff of Ankit Plt Count MPV Immature Gran % (Auto) Neut % (Auto) Lymph % (Auto) [place] % (Auto) Eos % (Auto) Baso % (Auto) Absolute Neuts (auto) Absolute Lymphs (auto) Nucleated RBC % Differential Comment PT 14.2 INR 1.2 APTT 58.7 H Specimen Type Sample Site pH Bicarbonate Actual Total CO2 Base Excess O2 Saturation O2 % ABG pCO2 ABG pO2 Andry Test Respiration Rate O2 Delivery Device Vent Mode Tidal Volume POC PEEP Sodium Potassium Chloride Carbon Dioxide Anion Gap BUN Creatinine Estim Creat Clear Calc Est GFR (MDRD) Af Amer Est GFR (MDRD) Non-Af BUN/Creatinine Ratio Glucose Lactic Acid Calcium Magnesium Total Bilirubin AST ALT Alkaline Phosphatase Troponin I 0.656 H* B-Natriuretic Peptide Total Protein Albumin Globulin Albumin/Globulin Ratio MRSA (PCR) POC Glucose 06/25/20 06/25/20 06/25/20 04:25 04:25 06:45 WBC 14.4 H RBC 4.03 L Hgb 12.2 Hct 39.0 MCV 96.8 MCH 30.3 MCHC 31.3 L D RDW Std Deviation 49.3 H RDW Coeff of Ankit 14.1 Plt Count 408 MPV 9.9 Immature Gran % (Auto) 0.800 Neut % (Auto) 77.5 H Lymph % (Auto) 12.6 L [place] % (Auto) 7.5 Eos % (Auto) 1.0 Baso % (Auto) 0.6 Absolute Neuts (auto) 11.2 H Absolute Lymphs (auto) 1.81 Nucleated RBC % 0 Differential Comment PT INR APTT 53.9 H Specimen Type Sample Site pH Bicarbonate Actual Total CO2 Base Excess O2 Saturation O2 % ABG pCO2 ABG pO2 Andry Test Respiration Rate O2 Delivery Device Vent Mode Tidal Volume POC PEEP Sodium 143 Potassium 3.9 Chloride 101 Carbon Dioxide 35.0 H Anion Gap 7 BUN 42 H Creatinine 1.77 H Estim Creat Clear Calc 25.90 Est GFR (MDRD) Af Amer 37 L Est GFR (MDRD) Non-Af 30 L BUN/Creatinine Ratio 23.7 H Glucose 110 H Lactic Acid Calcium 9.3 Magnesium 2.4 Total Bilirubin 0.40 AST 233 H ALT 141 H Alkaline Phosphatase 103 Troponin I B-Natriuretic Peptide Total Protein 6.8 Albumin 2.6 L Globulin 4.2 Albumin/Globulin Ratio 0.6 L MRSA (PCR) POC Glucose 06/25/20 06/25/20 06/25/20 08:30 14:30 17:50 WBC RBC Hgb Hct MCV MCH MCHC RDW Std Deviation RDW Coeff of Ankit Plt Count MPV Immature Gran % (Auto) Neut % (Auto) Lymph % (Auto) [place] % (Auto) Eos % (Auto) Baso % (Auto) Absolute Neuts (auto) Absolute Lymphs (auto) Nucleated RBC % Differential Comment PT INR APTT 61.1 H Specimen Type Sample Site pH Bicarbonate Actual Total CO2 Base Excess O2 Saturation O2 % ABG pCO2 ABG pO2 Andry Test Respiration Rate O2 Delivery Device Vent Mode Tidal Volume POC PEEP Sodium Potassium Chloride Carbon Dioxide Anion Gap BUN Creatinine Estim Creat Clear Calc Est GFR (MDRD) Af Amer Est GFR (MDRD) Non-Af BUN/Creatinine Ratio Glucose Lactic Acid Calcium Magnesium Total Bilirubin AST ALT Alkaline Phosphatase Troponin I B-Natriuretic Peptide Total Protein Albumin Globulin Albumin/Globulin Ratio MRSA (PCR) Negative POC Glucose 176 H 06/25/20 06/25/20 06/26/20 20:40 23:09 03:50 WBC 15.4 H RBC 3.70 L Hgb 11.1 L Hct 36.3 L MCV 98.1 MCH 30.0 MCHC 30.6 L RDW Std Deviation 52.1 H RDW Coeff of Ankit 14.4 Plt Count 368 MPV 10.3 Immature Gran % (Auto) 0.900 Neut % (Auto) 91.7 H Lymph % (Auto) 3.2 L [place] % (Auto) 3.2 Eos % (Auto) 0.8 Baso % (Auto) 0.2 Absolute Neuts (auto) 14.1 H Absolute Lymphs (auto) 0.49 L Nucleated RBC % 0 Differential Comment SCANNED PT INR APTT 83.0 H Specimen Type Sample Site pH Bicarbonate Actual Total CO2 Base Excess O2 Saturation O2 % ABG pCO2 ABG pO2 Andry Test Respiration Rate O2 Delivery Device Vent Mode Tidal Volume POC PEEP Sodium Potassium Chloride Carbon Dioxide Anion Gap BUN Creatinine Estim Creat Clear Calc Est GFR (MDRD) Af Amer Est GFR (MDRD) Non-Af BUN/Creatinine Ratio Glucose Lactic Acid Calcium Magnesium Total Bilirubin AST ALT Alkaline Phosphatase Troponin I B-Natriuretic Peptide Total Protein Albumin Globulin Albumin/Globulin Ratio MRSA (PCR) POC Glucose 191 H 06/26/20 06/26/20 03:50 03:50 WBC RBC Hgb Hct MCV MCH MCHC RDW Std Deviation RDW Coeff of Ankit Plt Count MPV Immature Gran % (Auto) Neut % (Auto) Lymph % (Auto) [place] % (Auto) Eos % (Auto) Baso % (Auto) Absolute Neuts (auto) Absolute Lymphs (auto) Nucleated RBC % Differential Comment PT INR APTT 78.1 H Specimen Type Sample Site pH Bicarbonate Actual Total CO2 Base Excess O2 Saturation O2 % ABG pCO2 ABG pO2 Andry Test Respiration Rate O2 Delivery Device Vent Mode Tidal Volume POC PEEP Sodium 142 Potassium 3.8 Chloride 101 Carbon Dioxide 32.0 Anion Gap 9 BUN 61 H Creatinine 3.24 H Estim Creat Clear Calc 14.15 Est GFR (MDRD) Af Amer 18 L Est GFR (MDRD) Non-Af 15 L BUN/Creatinine Ratio 18.8 Glucose 189 H Lactic Acid Calcium 8.8 Magnesium Total Bilirubin 0.30 AST 97 H ALT 94 H Alkaline Phosphatase 87 Troponin I B-Natriuretic Peptide Total Protein 6.7 Albumin 2.4 L Globulin 4.3 H Albumin/Globulin Ratio 0.6 L MRSA (PCR) POC Glucose Microbiology 06/24/20 22:00 Sputum, Induced/Lukens Gram Stain - Final 06/25/20 09:15 Urine Catheter - Naqvi Streptococcus pneumoniae Antigen (M - Final 06/25/20 09:15 Urine Catheter - Naqvi Legionella Antigen - Final 06/25/20 07:35 Mucosa - Nose Respiratory Panel (PCR) - Final Clinical Impression(s) from Imaging Studies Chest X-Ray 06/24/20 07:55 IMPRESSION: Cardiomegaly. Stable increased markings at the lung bases suggestive of bibasilar atelectasis and/or scarring. Moderate size hiatal hernia. Electronically Signed: Ivan Arce, at 8:36 EDT , Service support , Chest CTA 06/24/20 08:32 IMPRESSION: Bibasilar patchy infiltrates. Increased interstitial markings suggests a mild degree of CHF. Moderate sized hiatal hernia. Electronically Signed: Ivan Arce, at 9:17 EDT , Service support , Chest X-Ray 06/24/20 12:55 IMPRESSION: The tip of the endotracheal tube is at 3.9 cm proximal to the dianne. The orogastric tube lies to the left of the midline suggestive of placement within the left lower lobe bronchus. History congestion with small bilateral pleural effusions and bibasilar atelectasis more prominent on the left side. N.B. : The above information has been verbally conveyed by Ivan Arce to RIVAS CELIS on 06/24/2020 13:13:43 (ET). Electronically Signed: Ivan Arce at 13:17 EDT , Service support , ADDENDUM: 06/24/20 1324 IMPRESSION: The tip of the endotracheal tube is at 3.9 cm proximal to the dianne. The orogastric tube lies to the left of the midline suggestive of placement within the left lower lobe bronchus. History congestion with small bilateral pleural effusions and bibasilar atelectasis more prominent on the left side. N.B. : The above information has been verbally conveyed by Ivan Arce to RIVAS CELIS on 06/24/2020 13:13:43 (ET). Electronically Signed: Ivan Arce, at 13:17 EDT , Service support , Chest X-Ray 06/24/20 16:07 IMPRESSION: 1. Endotracheal tube and enteric tube as described. 2. No other major interval change. Electronically Signed: Celestine Marcial DO at 16:51 EDT Tel [phone], Service support , KUB X-Ray 06/24/20 16:15 IMPRESSION: 1. OG tube as described. 2. No evidence for acute intra-abdominal process. 3. Bilateral pleural effusions. Electronically Signed: Celestine Marcial DO at 16:49 EDT Tel [phone], Service support , ADDENDUM: 06/24/20 1802 Medical Necessity - Tobacco Use Smoking Status: Former smoker Assessment/Plan All Active Problems (Last Reviewed 06/24/20 @ 12:[address] Armond Killian MD) Hypoxemia (Acute) Cardiopulmonary arrest (Acute) Ventricular tachycardia (Acute) Ventricular fibrillation (Acute) Myocardial infarction (Acute) Acute heart failure (Acute) Chronic combined systolic and diastolic CHF (congestive heart failure) (Acute) RECOMMENDATIONS: 1. Continue to wean FiO2 and PEEP to maintain oxygen saturations at or above 90%. 2. Continue scheduled bronchodilator therapy and IV steroids. 3. Minimize sedation with a goal to maintain a RASS of -1 to 1. Start scheduled Seroquel twice daily today. 4. Continue appropriate GI prophylaxis. 5. Attempt gentle diuresis as tolerated by hemodynamics and renal function. 6. Obtain nephrology consultation given worsening renal insufficiency. IMPRESSIONS: 1. Acute on chronic combined respiratory failure The patient presented to the emergency department from the TCU, after she apparently experienced an aspiration event leading to respiratory decompensation and worsening hypoxemia. There is concern that this hypoxemia may have precipitated an acute coronary event. The patient did suffer from cardiopulmonary arrest in the emergency department and did require intubation. Her acid-base status has improved at this time. Plan to continue current supportive measures with assist control mode of mechanical ventilation, with plans to titrate FiO2 and PEEP to maintain oxygen saturations at or above 90%. Over concerns for aspiration, the patient will be continued empirically on antimicrobials, pending further infectious work-up. The patient will also be continued on scheduled bronchodilator therapy and steroids, over concerns for underlying COPD. 2. Status post cardiopulmonary arrest Clinical concern that hypoxemia may have precipitated cardiac decompensation. Cardiology is currently following to assist with management. At this time, we will plan to continue current supportive measures. The patient may require eventual cardiac catheterization, once medically stabilized. 3. Encephalopathy Improved. Although there was initial concern for possible anoxic brain injury, the patient has improved from a mentation standpoint. Plan to continue to minimize sedation as tolerated with a goal to maintain a RASS of -1 to 1. Seroquel will be added to the patient's medication regimen today. 4. Acute kidney injury Suspect a component of ischemic ATN in the setting of cardiopulmonary arrest. Will obtain nephrology consultation. Continue to monitor urine output for now. No current indication for renal replacement therapy. 5. History of heart failure with preserved ejection fraction/paroxysmal atrial fibrillation Continue current supportive measures with additional medical intervention per cardiology recommendations. 6. Chronic pain syndrome/morbid obesity/hypertension/depression/anxiety/questionable COPD Complicates care, management, recovery and prognosis. Continue scheduled bronchodilator therapy. CODE status: Discussed CODE status at length including difference between FULL code, DNR-CCA and DNR-CC status. Following discussions about the differences in these status, the patient's daughter requested DNR-CCA CODE STATUS. TIME: 38 minutes of critical care time, independent of procedures, was spent addressing the patient's acute on chronic combined respiratory failure, status post cardiopulmonary arrest, encephalopathy, history of heart failure, acute kidney injury, review of all data and collaboration with the care team. ([id number]) [id number] Critical care first hour
--- NOTE | 2020-06-26 06:11 | RAD_ITS ---
STUDY: X-RAY CHEST REASON FOR EXAM: Female, 69 years old. RESPIRATORY FAILURE -- BEST IMAGES POSSIBLE, PATIENT UNCOOPERATIVE AND COMBATIVE TECHNIQUE: Single AP portable view of the chest. COMPARISON: Comparison is made with prior examination 06/24/2020. FINDINGS: An endotracheal tube is seen. The tip is at 3.4 cm proximal to the dianne. An orogastric tube is seen with the tip below the left hemidiaphragm. Persistent bibasilar atelectasis and/or infiltrates with small bilateral pleural effusion more prominent on the left side. There is been essentially no change. There is no demonstrated pleural abnormality. Normal size heart. Normal mediastinum and leonid. Normal visualized pulmonary arteries. There is atherosclerotic calcification of the aortic arch with tortuosity. Normal visualized thoracic spine. Normal visualized ribs, clavicles, and shoulders. Hiatal hernia. RAD/Chest 1 View (Portable) IMPRESSION: Stable examination. Electronically Signed: Ivan Arce, at 11:08 EDT , Service support ,
--- NOTE | 2020-06-26 07:12 | PCM.RX.CS ---
Consult Pharmacy has been consulted to manage selected antiobiotic: Vancomycin Type of Consult: New start Suspected Infection: Bacteremia Prior Doses of Antibiotics Received/Current Regimen: Received 2gm loading dose 06.26.20. Labs: Sodium 142 mmol/L (136-145) 06/26/20 03:50 Potassium 3.8 mmol/L (3.5-5.1) 06/26/20 03:50 Chloride 101 mmol/L (98-107) 06/26/20 03:50 Carbon Dioxide 32.0 mmol/L (21.0-32.0) 06/26/20 03:50 Anion Gap 9 (5-15) 06/26/20 03:50 BUN 61 mg/dL (7-18) H 06/26/20 03:50 Creatinine 3.24 mg/dL (0.55-1.02) H 06/26/20 03:50 Est GFR (MDRD) Af Amer 18 mL/min (>60) L 06/26/20 03:50 Est GFR (MDRD) Non-Af 15 mL/min (>60) L 06/26/20 03:50 BUN/Creatinine Ratio 18.8 RATIO (-) 06/26/20 03:50 Glucose 189 mg/dL (74-106) H 06/26/20 03:50 Microbiology: Microbiology 06/24/20 22:00 Sputum, Induced/Lukens Gram Stain - Final 06/25/20 09:15 Urine Catheter - Naqvi Streptococcus pneumoniae Antigen (M - Final 06/25/20 09:15 Urine Catheter - Naqvi Legionella Antigen - Final 06/25/20 07:35 Mucosa - Nose Respiratory Panel (PCR) - Final Weight used for dosin.9 kg Estimated Creatinine Clearance: ~14ml/min Goal Trough: 15-20 mcg/mL Pharmacy Plan for Drug Dosing: After review of renal function of Cr 3.24 and CrCl of ~14ml/min, will not give any further doses at this time. Random level ordered for AM 06.27.20. Pharmacy Service will continue to monitor and adjust dosing as required. Follow-Up Labs: Trough Vancomycin - random level 06.27.20 @0600
--- NOTE | 2020-06-26 07:22 | PCM.PN.HOSP ---
Patient Problems: Active and Suspected Problems (Last Reviewed 06/24/20 @ 12:[address] Armond Killian MD) Hypoxemia (Acute) Cardiopulmonary arrest (Acute) Ventricular tachycardia (Acute) Ventricular fibrillation (Acute) Myocardial infarction (Acute) Acute heart failure (Acute) Chronic combined systolic and diastolic CHF (congestive heart failure) (Acute) Reason for Visit: Acute hypoxic respiratory failure Cardiopulmonary arrest Aspiration pneumonia Acute renal failure Subjective: Patient remains on the vent sputum culture so far positive for gram-positive cocci vancomycin added to therapy. Patient kidney function has worsened necessitating consult been placed to nephrology. Objective: GENERAL: On the vent HEENT: ET tube in place EYES; Anicteric, NECK; supple, normal thyroid, RESPIRATORY: Diminished to auscultation CARDIOVASCULAR: Regular S1 S2, GI: soft, normoactive bowel sounds, : No Renal angle tenderness; EXTREMITIES: Right foot in surgical dressing MUSCULOSKELETAL: no muscle waisting NEURO: Awake on the vent following simple commands SKIN: No Rash Vitals/I&O's: Vital Signs Temp Pulse Resp BP Pulse Ox 100.2 F H 70 14 117/71 95 06/26/20 07:00 06/26/20 07:00 06/26/20 07:00 06/26/20 07:00 06/26/20 07:00 Oxygen Flow Rate (L/min) 15 Oxygen Delivery Method Mechanical Ventilator Weight: 107.9 kg Body Mass Index (BMI) 39.9 Intake and Output for Last 24 Hours 06/24/20 06/25/20 06/26/20 23:59 23:59 23:59 Intake Total 302.39 / 312.39 1596.08 / 1674.13 1016.22 / 1016.22 Output Total 900 / 1050 643 / 643 111 / 111 Balance -597.61 / -737.61 953.08 / 1031.13 905.22 / 905.22 Microbiology Past 72 Hours 06/24/20 22:00 Sputum, Induced/Lukens Gram Stain - Final 06/25/20 09:15 Urine Catheter - Naqvi Streptococcus pneumoniae Antigen (M - Final 06/25/20 09:15 Urine Catheter - Naqvi Legionella Antigen - Final 06/25/20 07:35 Mucosa - Nose Respiratory Panel (PCR) - Final Laboratory Results 06/25/20 08:30: MRSA (PCR) Negative 06/25/20 14:30: APTT 61.1 H 06/25/20 17:50: POC Glucose 176 H 06/25/20 20:40: APTT 83.0 H 06/25/20 23:09: POC Glucose 191 H 06/26/20 03:50: WBC 15.4 H, RBC 3.70 L, Hgb 11.1 L, Hct 36.3 L, MCV 98.1, MCH 30.0, MCHC 30.6 L, RDW Std Deviation 52.1 H, RDW Coeff of Ankit 14.4, Plt Count 368, MPV 10.3, Immature Gran % (Auto) 0.900, Neut % (Auto) 91.7 H, Lymph % (Auto) 3.2 L, Stone % (Auto) 3.2, Eos % (Auto) 0.8, Baso % (Auto) 0.2, Absolute Neuts (auto) 14.1 H, Absolute Lymphs (auto) 0.49 L, Nucleated RBC % 0, Differential Comment SCANNED 06/26/20 03:50: Sodium 142, Potassium 3.8, Chloride 101, Carbon Dioxide 32.0, Anion Gap 9, BUN 61 H, Creatinine 3.24 H, Estim Creat Clear Calc 14.15, Est GFR (MDRD) Af Amer 18 L, Est GFR (MDRD) Non-Af 15 L, BUN/Creatinine Ratio 18.8, Glucose 189 H, Calcium 8.8, Total Bilirubin 0.30, AST 97 H, ALT 94 H, Alkaline Phosphatase 87, Total Protein 6.7, Albumin 2.4 L, Globulin 4.3 H, Albumin/Globulin Ratio 0.6 L 06/26/20 03:50: APTT 78.1 H Current Medications Acetaminophen (Acetaminophen 650 Mg/20 Ml Udc) 650 mg NG Q4H PRN PRN PRN Reason: temp>101.0 Last Admin: 06/25/20 17:52 Dose: 650 mg Documented by: Albuterol Sulfate (Albuterol 2.5 Mg/3 Ml Vial.Neb.) 2.5 mg INHALATION Q2H PRN PRN PRN Reason: SOB/Wheezing Albuterol/Ipratropium (Ipratropium/Albuterol Sulfate 3 Ml Ampul.Neb) 3 ml INHALATION Q4H.RT KIM Last Admin: 06/26/20 06:39 Dose: 3 ml Documented by: Aspirin (Aspirin E.C. 81 Mg Tablet) 81 mg PO DAILY@0800 [facility] Last Admin: 06/25/20 12:54 Dose: 81 mg Documented by: Chlorhexidine Gluconate (Chlorhexidine 15 Ml) 15 ml PO BID [facility] Last Admin: 06/25/20 21:18 Dose: 15 ml Documented by: Dextrose (Dextrose 50%-Water 25 Gm/50 Ml Disp.Syrin) 0 gm IV X1 PRN; Protocol PRN Reason: Hypoglycemia Famotidine (Famotidine 20 Mg Tablet) 20 mg NG DAILY [facility] Last Admin: 06/25/20 12:54 Dose: 20 mg Documented by: Glucagon (Glucagon 1 Mg/Ml Syringe) 1 mg IM .X1 PRN PRN Reason: Hypoglycemia Heparin Sodium (Beef Lung) (Heparin Pf Lock 10 Units/Ml 50 Units/5 Ml Syringe) 50 units IV UD PRN PRN Reason: PICC Line Heparin Flush Heparin Sodium (Porcine) (Heparin Injection (Vial) 5,000 Unit/Ml Vial) 0 unit IV UD PRN; Protocol PRN Reason: dose adjustment Last Admin: 06/24/20 17:33 Dose: 4,000 unit Documented by: Heparin Sodium/Dextrose () 25,000 units in 250 mls @ 10 mls/hr IV .Q25H [facility]; Protocol Last Titration: 06/26/20 05:00 Dose: 900 units/hr, 9 mls/hr Documented by: Sodium Chloride () 250 mls @ 15 mls/hr IV .[id number] PRN PRN Reason: Saline Flush Last Infusion: 06/26/20 05:34 Dose: 0 mls/hr Documented by: Sodium Chloride () 250 mls @ 15 mls/hr IV .[id number] PRN PRN Reason: Additional IVPB Infusion Ampicillin Sodium/Sulbactam (Sodium 3 gm/ Sodium Chloride) 112 mls @ 150 mls/hr IV Q8 [facility] Last Infusion: 06/26/20 06:42 Dose: Infused Documented by: Fentanyl Citrate 1,000 mcg/ (Sodium Chloride) 100 mls @ 5 mls/hr CONT INF .Q20H [facility]; Protocol Last Titration: 06/26/20 07:00 Dose: 200 mcg/hr, 20 mls/hr Documented by: Enteral Nutritional Formula (Vital High Protein) 1,000 mls @ 60 mls/hr GT .[id number] [facility] Last Admin: 06/26/20 04:09 Dose: 60 mls/hr Documented by: Dexmedetomidine HCl 1,000 mcg/ (Sodium Chloride) 250 mls @ 13.275 mls/hr CONT INF .[id number] [facility]; Protocol Last Titration: 06/26/20 07:00 Dose: 1.5 mcg/kg/hr, 39.8 mls/hr Documented by: Vancomycin IV Pharmacy to Dose (1 ea/ Sodium Chloride) 500 mls @ 250 mls/hr IV PRN PRN; Protocol PRN Reason: Rx to Dose Vancomycin HCl 2,000 mg/ (Sodium Chloride) 540 mls @ 250 mls/hr IV X1 ONE Stop: 06/26/20 08:39 Last Admin: 06/26/20 06:41 Dose: 250 mls/hr Documented by: Insulin Human Lispro (Insulin Lispro 100 Unit/Ml Insuln.Pen) 0 unit SC Q6 [facility]; Protocol Last Admin: 06/26/20 05:31 Dose: 1 units Documented by: L-Arginine/L-Glutamine/Calcium HMB (Rosendo (Unflavored) Packet) 1 packet NG BIDCM [facility] Last Admin: 06/25/20 17:53 Dose: 1 packet Documented by: Methylprednisolone (Methylprednisolone 40 Mg/Ml Vial) 40 mg IV Q6 [facility] Last Admin: 06/26/20 05:30 Dose: 40 mg Documented by: Quetiapine Fumarate (Quetiapine 25 Mg Tablet) 25 mg PO BID [facility] Senna/Docusate Sodium (Senna/Docusate Sodium 1 Tablet) 2 tablet NG BID [facility] Last Admin: 06/25/20 21:18 Dose: 2 tablet Documented by: Sodium Chloride (0.9% Saline Lock 10 Ml Syringe) 10 - 40 ml IV UD PRN PRN Reason: Open End PICC Flush Last Admin: 06/26/20 04:10 Dose: 10 ml Documented by: Sodium Chloride (0.9 % Nacl (Sterile) Posiflush 10 Ml) 10 - 40 ml IV UD PRN PRN Reason: Port access or dressing change Sodium Chloride (0.9% Saline Lock 10 Ml Syringe) 10 - 40 ml IV UD PRN PRN Reason: SALINE FLUSH STROKE Vital Signs/Narrative: Vital Signs Temp Pulse Resp BP Pulse Ox 06/26/20 07:00 100.2 F H 70 14 117/71 95 06/26/20 06:00 100.1 F H 73 16 120/79 92 06/26/20 05:20 69 14 95 06/26/20 05:00 100.5 F H 69 14 106/61 95 06/26/20 04:00 100.7 F H 84 19 H 118/96 H 93 06/26/20 03:30 101/61 Medical Necessity - Tobacco Use Smoking Status: Former smoker Assessment/Plan All Active Problems (Last Reviewed 06/24/20 @ 12:[address] Armond Killian MD) Hypoxemia (Acute) Cardiopulmonary arrest (Acute) Ventricular tachycardia (Acute) Ventricular fibrillation (Acute) Myocardial infarction (Acute) Acute heart failure (Acute) Chronic combined systolic and diastolic CHF (congestive heart failure) (Acute) Patient is a 69-year-old lady as well from the transitional care unit to the ED with shortness of breath who experience cardiopulmonary arrest was been evaluated in the ED. Patient was successfully resuscitated with return of spontaneous circulation after almost 2 hours. Patient was intubated in the ED and started on Levophed admitted to the intensive care unit 1. Acute cardiopulmonary arrest with high suspicion for acute myocardial infarction ?Patient did experience cardiopulmonary arrest in the ED Patient was successfully resuscitated with return of spontaneous circulation after almost 2 hours patient was started on heparin drip, ordered serial cardiac enzymes, 2D echo and consult placed to cardiology Dr. Sal Bai was notified from the ED prior to patient being admitted 06/25/2020: Patient level of sensorium did improve was on the vent necessitating initiation of sedation. Patient however is awake and responsive on the vent. 06/25/2020 2. Acute hypoxic respiratory failure secondary to cardiopulmonary arrest as well as aspiration pneumonia ?Following patient cardiopulmonary arrest imaging studies obtained in the ED demonstrated Bibasilar patchy infiltrates. Increased interstitial markings suggests a mild degree of CHF. Patient was intubated in the ED prior to patient being admitted to the intensive care unit vent management deferred to pulmonary medicine 06/25/2020; repeat transthoracic echo obtained the day prior demonstrated anteroapical/septal Hypokinesia EF 35-40% -06/26/2020; patient remains on the vent. Currently on Precedex drip however appears agitated. 3. Aspiration pneumonia ?Sputum culture so far positive for 4+ gram-positive cocci. Vancomycin added to therapy 4. Acute kidney injury ?Secondary to ATN. Patient kidney function continues to worsen consult placed to nephrology 5. Hypotension ?Secondary to cardiogenic shock. Patient started on Levophed -06/26/2020; Levophed weaned off 6. Congestive heart failure with preserved ejection fraction ?Recent 2D echo obtained on 06/15/2020 demonstrated EF of 50%. imaging studies obtained in the ED demonstrated Bibasilar patchy infiltrates. Increased interstitial markings suggests a mild degree of CHF patient was however not started on Lasix in view of patient being hypotensive -06/25/2020:Limited TTE showed anteroapical/septal Hypokinesia EF 35-40% -06/26/2020; 2D echo obtained the day prior demonstrated Mild segmental systolic dysfunction (see wall motion). The estimated ejection fraction is 45 %. The left atrium is mildly enlarged. There is mild mitral annular calcification. Unable to assess diastolic dysfunction. 7. Osteomyelitis involving the right second toe Status post debridement and partial amputation on 06/17/[address] Montilla. Bone culture demonstrates staph aureus, MSSA. Patient was discharged to the transitional care unit on Rocephin 8. Paroxysmal A. fib ?Rate controlled 9. 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 with BMI of 40.6 -Counseled on weight reduction following extubation 10. Essential hypertension -Hypertensives on hold in view of patient's hypotension 11. Depression with anxiety -Resume home meds after patient is weaned off the vent 12. Chronic hypoxic respiratory failure on baseline home O2 secondary to COPD -Patient currently on the vent 13. DVT prophylaxis ? heparin Inpatient E&M: [id number] [facility] L3
[2020-06-26] MEDS: Aspirin E.C. 81 MG Tablet PO (08:13)
[2020-06-26] MEDS: Furosemide 40 MG/4 ML Vial IV (08:13)
[2020-06-26] MEDS: Famotidine 20 MG Tablet NG (08:13)
[2020-06-26] MEDS: Juven (unflavored) Packet 1 PACKET NG ×2 (08:14→18:32)
[2020-06-26] MEDS: Senna/Docusate Sodium 1 Tablet 2 TABLET NG ×2 (08:14→22:25)
[2020-06-26] MEDS: Chlorhexidine 15 ML PO ×2 (08:14→22:25)
[2020-06-26] MEDS: QUEtiapine 25 MG Tablet 50 MG PO ×2 (08:33→22:26)
--- NOTE | 2020-06-26 10:08 | PCM.PN.CARD ---
Subjectve: The patient remains in the ICU mechanically intubated and ventilated. Objective: Vital Signs Temp Pulse Resp BP Pulse Ox 100.2 F H 70 14 117/71 95 06/26/20 07:00 06/26/20 07:00 06/26/20 07:00 06/26/20 07:00 06/26/20 07:00 Oxygen Flow Rate (L/min) 15 Oxygen Delivery Method Mechanical Ventilator Weight: 237 lb 14.06 oz Body Mass Index (BMI) 39.9 Intake and Output for Last 24 Hours 06/24/20 06/25/20 06/26/20 23:59 23:59 23:59 Intake Total 302.39 / 312.39 1596.08 / 1674.13 1681.21 / 1681.21 Output Total 900 / 1050 643 / 643 186 / 186 Balance -597.61 / -737.61 953.08 / 1031.13 1495.21 / 1495.21 Lungs: Rhonchi Cardiovascular: Regular Rhythm, Normal S1, Normal S2 Abdomen: Bowel Sounds Present, Soft Extremities: No edema 06/25/20 14:30: APTT 61.1 H 06/25/20 20:40: APTT 83.0 H 06/26/20 03:50: WBC 15.4 H, RBC 3.70 L, Hgb 11.1 L, Hct 36.3 L, MCV 98.1, MCH 30.0, MCHC 30.6 L, Plt Count 368, MPV 10.3, Immature Gran % (Auto) 0.900, Neut % (Auto) 91.7 H, Lymph % (Auto) 3.2 L, [place] % (Auto) 3.2, Eos % (Auto) 0.8, Baso % (Auto) 0.2, Absolute Neuts (auto) 14.1 H, Nucleated RBC % 0 06/26/20 03:50: Sodium 142, Potassium 3.8, Chloride 101, Carbon Dioxide 32.0, Anion Gap 9, BUN 61 H, Creatinine 3.24 H, Est GFR (MDRD) Af Amer 18 L, Est GFR (MDRD) Non-Af 15 L, BUN/Creatinine Ratio 18.8, Glucose 189 H, Calcium 8.8, Total Bilirubin 0.30 06/26/20 03:50: APTT 78.1 H Rhythm: Sinus rhythm Echocardiogram: 06-25-2020 Interpretation Summary The study was technically difficult. Contrast injection was performed. Limited views were obtained. Mild segmental systolic dysfunction (see wall motion). The estimated ejection fraction is 45 %. The left atrium is mildly enlarged. There is mild mitral annular calcification. Unable to assess diastolic dysfunction. Medical Necessity - Tobacco Use Smoking Status: Former smoker Assessment/Plan 1. Acute cardiopulmonary arrest The patient experienced an acute cardiopulmonary arrest. There is concerns as to whether or not this may have been initiated by aspiration pneumonia and hypoxemia. According to the medical records available for review this arrest was a prolonged event. She was evaluated by interventional cardiology at the time who did not recommend urgent/emergent diagnostic cardiac catheterization. This was pending the outcome of her cardiopulmonary arrest, neurologic status, multiple comorbidities, etc. The patient has been evaluated by [facility] cardiology in the past. The information obtained is as noted in her previous neurology progress note. At the present time the patient is in the ICU. She remains mechanically intubated and ventilated. She is febrile. She is going to continue supportive care at this time. Depending upon the outcome of her multiple medical issues she can be considered for future evaluation in the cardiac catheterization laboratory. 2. Paroxysmal atrial fibrillation/ventricular tachycardia The patient has, per previous medical records from 2018, reports of paroxysmal atrial fibrillation as well as paroxysmal ventricular tachycardia. She has been evaluated for these issues at [facility]. It appears she was treated medically and underwent EPS/RFA of PVCs. At the moment she will continue to have her rate and rhythm monitored. Her medications can be adjusted as needed. 3. CHF: Acute systolic She has a history of CHF. In the past this was reported as combined systolic and diastolic. There are concerns at this time she may have experienced, based on her event, an episode of acute systolic CHF. She remains in the ICU mechanically intubated and ventilated. She will continue to be followed. She will continue medical management as she is able to. 4. Hypotension Her blood pressure appears to be somewhat improved at this time. She is continuing evaluation care per pulmonology/critical care medicine. 5. COPD The patient has a history of COPD. She will need to continue evaluation care per internal medicine and pulmonology. 7. Obstructive sleep apnea The patient has per previous records a history of obstructive sleep apnea for which she has been reported is noncompliant with follow-up and care. She will need continued valuation care by her primary care physicians. 8. Obesity The patient has been reported as being obese in the past and currently. She apparently has been counseled in the past regarding diet and activity, etc., to try and bring her weight under better control. 9. Renal insufficiency Her creatinine has markedly elevated. This may have been related to her prolonged hypotensive event and any contribution from any type of underlying infectious related issues's sepsis syndrome. This does have to be taken into consideration with respect to further invasive cardiovascular evaluation such as diagnostic cardiac catheterization based upon the concerns of IV contrast related nephropathy. Overall, at the present time, the patient will continue in the ICU. She will continue supportive care. Depending upon the outcome of her multiple comorbidities consideration will be given as to whether or not she is a candidate for further evaluation such as diagnostic cardiac catheterization, however, there is concern at this time based upon her marked renal insufficiency with the possibility of additional IV contrast related nephropathy. Comment: The patient's case has been discussed and reviewed with Dr. Davis and Dr. Killian. This note was generated using a voice recognition system and there may be incorrect words, spelling or punctuation that were not noted when reviewing the office note prior to saving.
--- NOTE | 2020-06-26 10:44 | PCM.CONS.R ---
Consultation - Renal PCP/ Referring MD: Requesting physician: [] Primary care physician: Dr. Darinel Callejas MD - History of Present Illness History of Present Illness: The patient is a 69 year old F PMH of multiple medical diseases including COPD, CHF, Afib, HTN and CKD stage 3. Patient was transferred from TCU to [facility] ED 3 days ago after she had episode of aspiration. Patient went to CPA and had prolonged CPR. Patient survived the CPA after prolonged resuscitation. Patient then was found to have CO . Patient is currently on ICU intubated and sedated. Renal team was consulted for EMMANUEL. SCr increased 1.14->1.77-> 3.2 mg/dl this am No IV contrast exposure. Cardiology service is following. No intervention was done for CO so far ROS: unobtainable [] - Allergies Allergies: Allergies doxycycline Allergy (Severe, Verified 06/24/20 07:12) ulcerations of lips and mouth gabapentin Adverse Reaction (Severe, Verified 06/24/20 07:12) GI upset, Vomiting ciprofloxacin [From Cipro] Adverse Reaction (Intermediate, Verified 06/24/20 07:12) Other messes with her heart medicine - Current Medications Current Medications: Current Medications Acetaminophen (Acetaminophen 650 Mg/20 Ml Udc) 650 mg NG Q4H PRN PRN PRN Reason: temp>101.0 Last Admin: 06/25/20 17:52 Dose: 650 mg Documented by: Albuterol Sulfate (Albuterol 2.5 Mg/3 Ml Vial.Neb.) 2.5 mg INHALATION Q2H PRN PRN PRN Reason: SOB/Wheezing Albuterol/Ipratropium (Ipratropium/Albuterol Sulfate 3 Ml Ampul.Neb) 3 ml INHALATION Q4H.RT [facility] Last Admin: 06/26/20 06:39 Dose: 3 ml Documented by: Aspirin (Aspirin E.C. 81 Mg Tablet) 81 mg PO DAILY@0800 [facility] Last Admin: 06/26/20 08:13 Dose: 81 mg Documented by: Chlorhexidine Gluconate (Chlorhexidine 15 Ml) 15 ml PO BID [facility] Last Admin: 06/26/20 08:14 Dose: 15 ml Documented by: Dextrose (Dextrose 50%-Water 25 Gm/50 Ml Disp.Syrin) 0 gm IV X1 PRN; Protocol PRN Reason: Hypoglycemia Famotidine (Famotidine 20 Mg Tablet) 20 mg NG DAILY [facility] Last Admin: 06/26/20 08:13 Dose: 20 mg Documented by: Glucagon (Glucagon 1 Mg/Ml Syringe) 1 mg IM .X1 PRN PRN Reason: Hypoglycemia Heparin Sodium (Beef Lung) (Heparin Pf Lock 10 Units/Ml 50 Units/5 Ml Syringe) 50 units IV UD PRN PRN Reason: PICC Line Heparin Flush Heparin Sodium (Porcine) (Heparin Injection (Vial) 5,000 Unit/Ml Vial) 0 unit IV UD PRN; Protocol PRN Reason: dose adjustment Last Admin: 06/24/20 17:33 Dose: 4,000 unit Documented by: Heparin Sodium/Dextrose () 25,000 units in 250 mls @ 10 mls/hr IV .Q25H KIM; Protocol Last Titration: 06/26/20 08:00 Dose: 900 units/hr, 9 mls/hr Documented by: Sodium Chloride () 250 mls @ 15 mls/hr IV .[id number] PRN PRN Reason: Saline Flush Last Infusion: 06/26/20 09:56 Dose: 15 mls/hr Documented by: Sodium Chloride () 250 mls @ 15 mls/hr IV .[id number] PRN PRN Reason: Additional IVPB Infusion Fentanyl Citrate 1,000 mcg/ (Sodium Chloride) 100 mls @ 5 mls/hr CONT INF .Q20H [facility]; Protocol Last Admin: 06/26/20 08:41 Dose: 200 mcg/hr, 20 mls/hr Documented by: Enteral Nutritional Formula (Vital High Protein) 1,000 mls @ 60 mls/hr GT .[id number] [facility] Last Admin: 06/26/20 04:09 Dose: 60 mls/hr Documented by: Dexmedetomidine HCl 1,000 mcg/ (Sodium Chloride) 250 mls @ 13.275 mls/hr CONT INF .[id number] [facility]; Protocol Last Admin: 06/26/20 08:45 Dose: 1.5 mcg/kg/hr, 39.8 mls/hr Documented by: Vancomycin IV Pharmacy to Dose (1 ea/ Sodium Chloride) 500 mls @ 250 mls/hr IV PRN PRN; Protocol PRN Reason: Rx to Dose Ampicillin Sodium/Sulbactam (Sodium 3 gm/ Sodium Chloride) 112 mls @ 150 mls/hr IV Q12 KIM Insulin Human Lispro (Insulin Lispro 100 Unit/Ml Insuln.Pen) 0 unit SC Q6 [facility]; Protocol Last Admin: 06/26/20 05:31 Dose: 1 units Documented by: L-Arginine/L-Glutamine/Calcium HMB (Rosendo (Unflavored) Packet) 1 packet NG BIDCM [facility] Last Admin: 06/26/20 08:14 Dose: 1 packet Documented by: Methylprednisolone (Methylprednisolone 40 Mg/Ml Vial) 40 mg IV Q6 [facility] Last Admin: 06/26/20 05:30 Dose: 40 mg Documented by: Quetiapine Fumarate (Quetiapine 25 Mg Tablet) 50 mg PO BID [facility] Last Admin: 06/26/20 08:33 Dose: 50 mg Documented by: Senna/Docusate Sodium (Senna/Docusate Sodium 1 Tablet) 2 tablet NG BID [facility] Last Admin: 06/26/20 08:14 Dose: 2 tablet Documented by: Sodium Chloride (0.9% Saline Lock 10 Ml Syringe) 10 - 40 ml IV UD PRN PRN Reason: Open End PICC Flush Last Admin: 06/26/20 04:10 Dose: 10 ml Documented by: Sodium Chloride (0.9 % Nacl (Sterile) Posiflush 10 Ml) 10 - 40 ml IV UD PRN PRN Reason: Port access or dressing change Sodium Chloride (0.9% Saline Lock 10 Ml Syringe) 10 - 40 ml IV UD PRN PRN Reason: SALINE FLUSH - Past Medical History Past Medical History (Chronic Problems): Chronic Problems (Last Reviewed 06/24/20 @ 12:[address] Armond Killian MD) CHF exacerbation (Chronic) COPD exacerbation (Chronic) Osteomyelitis (Chronic) Congestive heart failure (Chronic) Atrial fibrillation (Chronic) Vitamin D deficiency (Chronic) Restless leg syndrome (Chronic) COPD (chronic obstructive pulmonary disease) (Chronic) Cardiomyopathy, dilated (Chronic) ESPERANZA (obstructive sleep apnea) (Chronic) Chronic respiratory failure with hypoxia (Chronic) Anxiety (Chronic) Depression (Chronic) Osteoarthritis (Chronic) Pulmonary nodules (Chronic) Left ventricular hypertrophy (Chronic) Back pain (Chronic) Chronic systolic heart failure (Chronic) GERD (gastroesophageal reflux disease) (Chronic) Non-sustained ventricular tachycardia (Chronic) Hypertension (Chronic) 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) long-term current use of antiarrhythmic medical therapy (Chronic) Paroxysmal atrial fibrillation (Chronic) Asthma (Chronic) - Past Surgical History Surgical History: hysterectomy, - - tubal ligation, oophorectomy, knee surgery, status post cardiac radiofrequency ablation, cardiac catheterization, Left hip ORIF intramedullary nail. - Social History Smoking Status: Former smoker - Family History Maternal Family History: Family History (Last Reviewed 06/24/20 @ 12:[address] Armond Killian MD) Mother Heart disease Arthritis blood clots Hypertension Father arthrits Cancer Brother Cancer Aunt Breast cancer Depression Ovarian cancer Grandmother CVA (cerebral vascular accident) Aunt Diabetes History Items: Heart Disease, Hypertension, - - Blood clot Paternal Family History: Family History (Last Reviewed 06/24/20 @ 12:[address] Armond Killian MD) Mother Heart disease Arthritis blood clots Hypertension Father arthrits Cancer Brother Cancer Aunt Breast cancer Depression Ovarian cancer Grandmother CVA (cerebral vascular accident) Aunt Diabetes History Items: Cancer - Lung cancer Patient Problems: Active and Suspected Problems (Last Reviewed 06/24/20 @ 12:[address] Armond Killian MD) Hypoxemia (Acute) Cardiopulmonary arrest (Acute) Ventricular tachycardia (Acute) Ventricular fibrillation (Acute) Myocardial infarction (Acute) Acute heart failure (Acute) Chronic combined systolic and diastolic CHF (congestive heart failure) (Acute) - Physical Exam Vitals/I&O's: Vital Signs Temp Pulse Resp BP Pulse Ox 100.2 F H 70 14 117/71 95 06/26/20 07:00 06/26/20 07:00 06/26/20 07:00 06/26/20 07:00 06/26/20 07:00 Oxygen Flow Rate (L/min) 15 Oxygen Delivery Method Mechanical Ventilator Weight: 107.9 kg Body Mass Index (BMI) 39.9 Intake and Output for Last 24 Hours 06/24/20 06/25/20 06/26/20 23:59 23:59 23:59 Intake Total 302.39 / 312.39 1596.08 / 1674.13 1681.21 / 1681.21 Output Total 900 / 1050 643 / 643 186 / 186 Balance -597.61 / -737.61 953.08 / 1031.13 1495.21 / 1495.21 General: - - Inubated. HEENT: Atraumatic Neck: Supple, No JVD Lungs: - - On vent support. equal air entry. No wheezing No crackles Cardiovascular: Normal S1, Normal S2 Abdomen: Bowel Sounds Present, Soft Extremities: No clubbing, No cyanosis, No edema Skin: No rashes Psych/Mental Status: - - sedated Microbiology Past 72 Hours 06/24/20 22:00 Sputum, Induced/Lukens Gram Stain - Final 06/24/20 22:00 Sputum, Induced/Lukens Respiratory Culture - Final Presumptive C albicans 06/25/20 09:15 Urine Catheter - Naqvi Streptococcus pneumoniae Antigen (M - Final 06/25/20 09:15 Urine Catheter - Naqvi Legionella Antigen - Final 06/25/20 07:35 Mucosa - Nose Respiratory Panel (PCR) - Final Laboratory Results 06/25/20 08:30: MRSA (PCR) Negative 06/25/20 14:30: APTT 61.1 H 06/25/20 17:50: POC Glucose 176 H 06/25/20 20:40: APTT 83.0 H 06/25/20 23:09: POC Glucose 191 H 06/26/20 03:50: WBC 15.4 H, RBC 3.70 L, Hgb 11.1 L, Hct 36.3 L, MCV 98.1, MCH 30.0, MCHC 30.6 L, RDW Std Deviation 52.1 H, RDW Coeff of Ankit 14.4, Plt Count 368, MPV 10.3, Immature Gran % (Auto) 0.900, Neut % (Auto) 91.7 H, Lymph % (Auto) 3.2 L, Twiggs % (Auto) 3.2, Eos % (Auto) 0.8, Baso % (Auto) 0.2, Absolute Neuts (auto) 14.1 H, Absolute Lymphs (auto) 0.49 L, Nucleated RBC % 0, Differential Comment SCANNED 06/26/20 03:50: Sodium 142, Potassium 3.8, Chloride 101, Carbon Dioxide 32.0, Anion Gap 9, BUN 61 H, Creatinine 3.24 H, Estim Creat Clear Calc 14.15, Est GFR (MDRD) Af Amer 18 L, Est GFR (MDRD) Non-Af 15 L, BUN/Creatinine Ratio 18.8, Glucose 189 H, Calcium 8.8, Total Bilirubin 0.30, AST 97 H, ALT 94 H, Alkaline Phosphatase 87, Total Protein 6.7, Albumin 2.4 L, Globulin 4.3 H, Albumin/Globulin Ratio 0.6 L 06/26/20 03:50: APTT 78.1 H Current Medications Acetaminophen (Acetaminophen 650 Mg/20 Ml Udc) 650 mg NG Q4H PRN PRN PRN Reason: temp>101.0 Last Admin: 06/25/20 17:52 Dose: 650 mg Documented by: Albuterol Sulfate (Albuterol 2.5 Mg/3 Ml Vial.Neb.) 2.5 mg INHALATION Q2H PRN PRN PRN Reason: SOB/Wheezing Albuterol/Ipratropium (Ipratropium/Albuterol Sulfate 3 Ml Ampul.Neb) 3 ml INHALATION Q4H.RT [facility] Last Admin: 06/26/20 06:39 Dose: 3 ml Documented by: Aspirin (Aspirin E.C. 81 Mg Tablet) 81 mg PO DAILY@0800 [facility] Last Admin: 06/26/20 08:13 Dose: 81 mg Documented by: Chlorhexidine Gluconate (Chlorhexidine 15 Ml) 15 ml PO BID [facility] Last Admin: 06/26/20 08:14 Dose: 15 ml Documented by: Dextrose (Dextrose 50%-Water 25 Gm/50 Ml Disp.Syrin) 0 gm IV X1 PRN; Protocol PRN Reason: Hypoglycemia Famotidine (Famotidine 20 Mg Tablet) 20 mg NG DAILY [facility] Last Admin: 06/26/20 08:13 Dose: 20 mg Documented by: Glucagon (Glucagon 1 Mg/Ml Syringe) 1 mg IM .X1 PRN PRN Reason: Hypoglycemia Heparin Sodium (Beef Lung) (Heparin Pf Lock 10 Units/Ml 50 Units/5 Ml Syringe) 50 units IV UD PRN PRN Reason: PICC Line Heparin Flush Heparin Sodium (Porcine) (Heparin Injection (Vial) 5,000 Unit/Ml Vial) 0 unit IV UD PRN; Protocol PRN Reason: dose adjustment Last Admin: 06/24/20 17:33 Dose: 4,000 unit Documented by: Heparin Sodium/Dextrose () 25,000 units in 250 mls @ 10 mls/hr IV .Q25H [facility]; Protocol Last Titration: 06/26/20 08:00 Dose: 900 units/hr, 9 mls/hr Documented by: Sodium Chloride () 250 mls @ 15 mls/hr IV .[id number] PRN PRN Reason: Saline Flush Last Infusion: 06/26/20 09:56 Dose: 15 mls/hr Documented by: Sodium Chloride () 250 mls @ 15 mls/hr IV .[id number] PRN PRN Reason: Additional IVPB Infusion Fentanyl Citrate 1,000 mcg/ (Sodium Chloride) 100 mls @ 5 mls/hr CONT INF .Q20H [facility]; Protocol Last Admin: 06/26/20 08:41 Dose: 200 mcg/hr, 20 mls/hr Documented by: Enteral Nutritional Formula (Vital High Protein) 1,000 mls @ 60 mls/hr GT .[id number] [facility] Last Admin: 06/26/20 04:09 Dose: 60 mls/hr Documented by: Dexmedetomidine HCl 1,000 mcg/ (Sodium Chloride) 250 mls @ 13.275 mls/hr CONT INF .[id number] [facility]; Protocol Last Admin: 06/26/20 08:45 Dose: 1.5 mcg/kg/hr, 39.8 mls/hr Documented by: Vancomycin IV Pharmacy to Dose (1 ea/ Sodium Chloride) 500 mls @ 250 mls/hr IV PRN PRN; Protocol PRN Reason: Rx to Dose Ampicillin Sodium/Sulbactam (Sodium 3 gm/ Sodium Chloride) 112 mls @ 150 mls/hr IV Q12 [facility] Insulin Human Lispro (Insulin Lispro 100 Unit/Ml Insuln.Pen) 0 unit SC Q6 [facility]; Protocol Last Admin: 06/26/20 05:31 Dose: 1 units Documented by: L-Arginine/L-Glutamine/Calcium HMB (Rosendo (Unflavored) Packet) 1 packet NG BIDCM [facility] Last Admin: 06/26/20 08:14 Dose: 1 packet Documented by: Methylprednisolone (Methylprednisolone 40 Mg/Ml Vial) 40 mg IV Q6 [facility] Last Admin: 06/26/20 05:30 Dose: 40 mg Documented by: Quetiapine Fumarate (Quetiapine 25 Mg Tablet) 50 mg PO BID [facility] Last Admin: 06/26/20 08:33 Dose: 50 mg Documented by: Senna/Docusate Sodium (Senna/Docusate Sodium 1 Tablet) 2 tablet NG BID [facility] Last Admin: 06/26/20 08:14 Dose: 2 tablet Documented by: Sodium Chloride (0.9% Saline Lock 10 Ml Syringe) 10 - 40 ml IV UD PRN PRN Reason: Open End PICC Flush Last Admin: 06/26/20 04:10 Dose: 10 ml Documented by: Sodium Chloride (0.9 % Nacl (Sterile) Posiflush 10 Ml) 10 - 40 ml IV UD PRN PRN Reason: Port access or dressing change Sodium Chloride (0.9% Saline Lock 10 Ml Syringe) 10 - 40 ml IV UD PRN PRN Reason: SALINE FLUSH Assessment/Plan All Active Problems (Last Reviewed 06/24/20 @ 12:[address] Armond Killian MD) Hypoxemia (Acute) Cardiopulmonary arrest (Acute) Ventricular tachycardia (Acute) Ventricular fibrillation (Acute) Myocardial infarction (Acute) Acute heart failure (Acute) Chronic combined systolic and diastolic CHF (congestive heart failure) (Acute) 1- EMMANUEL on CKD stage 3. Baseline SCr ~ 1.14 mg/dl EMMANUEL is likely ischemic ATN. SCr is rising rapidly. Patient is non oliguric Patient was given one dose of IV lasix this am with increase UOP No indication for WASTEWATER SUPERINTENDENT today Will continue to evaluate the need of WASTEWATER SUPERINTENDENT daily Keep MAP > 65 Monitor RFP and UOP 2- S/P CPA with prolonged resuscitation Off pressor this morning. hemodynamically stable 3- Acute CO . cardiology is following. Might need cardiac cath when she is more stable 4- Acute RF from aspiration and CO Abx treatment and vent support as per ICU team d/w Dr. Davis Renal service will continue to follow. Please call if any question at [phone] Dianna Castaneda MD
[2020-06-26 11:55] LABS: Partial Thromboplast Time 77.6 Seconds (24.1-36.2)
[2020-06-26] MEDS: HEPARIN/D5w 25,000 UNITS 25,000 UNITS/250 ML IV.SOLN. 8 UNITS IV (12:10)
[2020-06-26 12:45] LABS: Bedside Glucose 160 mg/dL (70-110)
[2020-06-26] MEDS: Propofol 10MG/Ml 1,000 MG/100 ML Bottle 6.5 MG CONT INF (12:54)
[2020-06-26 13:20] LABS: CPK Total, Creatine Kinase 322 U/L (26-192); Triglycerides 115 mg/dL
--- NOTE | 2020-06-26 14:00 | CHAPLAIN ---
Type of Pastoral Visit ___ Initial Visit _x__ Follow-up Visit ___ On-call Visit ___ General Patient Visit ___ Spiritual Assessment ___ Family Conference ___ Bereavement ___ Rapid Response ___ Code Blue ___ Other (describe below) Pastoral Care Referral From ___ Patient ___ Family ___ Nurse ___ Physician ___ Discovery Manager ___ Inhalation Therapy Aide _x__ Other (describe below) Sacrament/Intervention ___ Active listening ___ Anointing ___ Cheondoism ___ Bereavement ___ Communion ___ Diane exploration ___ ___ Life review ___ Prayer ___ Reconciliation ___ Sacrament of Sick _x__ Supportive presence ___ Wedding ___ Other (describe below) Pastoral Comments
[2020-06-26 18:56] LABS: Bedside Glucose 162 mg/dL (70-110)
[2020-06-26] MEDS: Propofol 10MG/Ml 1,000 MG/100 ML Bottle 12.9 MG CONT INF (20:25)
[2020-06-27] VITALS (40 sets, daily range): BP systolic 91–139; BP diastolic 56–81; PULSE 58–115; RESP 13–21; TEMP 35.9–37.4; O2SAT 88–94
[2020-06-27 00:06] LABS: Bedside Glucose 135 mg/dL (70-110)
[2020-06-27] MEDS: 0.9% Saline Lock 10 ML Syringe IV ×2 (00:07→06:27)
[2020-06-27] MEDS: Vital High Protein 1,000 ML 60 ML GT ×4 (00:10→22:29)
--- NOTE | 2020-06-27 00:28 | NURSING ---
fentanyl was still infusing, MAR says empty. cpot 0/2
[2020-06-27] MEDS: Propofol 10MG/Ml 1,000 MG/100 ML Bottle 12.9 MG CONT INF (01:43)
[2020-06-27 02:31] LABS: Partial Thromboplast Time 55.7 Seconds (24.1-36.2)
[2020-06-27] MEDS: Ipratropium/Albuterol Sulfate 3 ML AMPUL.NEB INHALATION ×6 (03:25→22:34)
[2020-06-27 05:49] LABS: Absolute Lymphocyte Count 0.57 X10^3/uL (0.83-4.51); Absolute Neutrophil Count 17.1 X10^3/uL (2.0-7.7); Basophil# 0.02 X10^3/uL; Basophil% 0.1 % (0-1); Hematocrit 32.7 % (37-47); Hemoglobin 9.8 g/dL (12.0-15.0); Lymphocyte # 0.57 X10^3/ul (4.0); Lymphocyte % 3.1 % (19-41); Mean Corpuscular Hgb 29.8 pg (27.0-32.0); Mean Corpuscular Volume 99.4 fL (81-99); Mean Platelet Vol. 10.6 fl (6.2-12.0); Monocyte# 0.64 X10^3/uL; Monocyte% 3.5 % (0-10); NRBC Flagged by Analyzer 0 % (0-5); Neutrophil # 17.07 X10^3/uL (2.7-7.7); Neutrophil % 92.5 % (47-70); POSITIVE DIFFERENTIAL YES; Platelet Count 340 K/mm3 (150-450); RBC Distribution Width CV 14.3 % (11.6-14.6); RBC Distribution Width SD 51.8 fl (35.1-43.9); Red Blood Count 3.29 M/mm3 (4.2-5.4); White Blood Count 18.5 K/mm3 (4.4-11.0)
--- NOTE | 2020-06-27 06:02 | PN_ITS ---
Subjective: The patient was seen and examined at the bedside this morning. Events from the last 24 hours have been reviewed. The patient is currently afebrile, hemodynamically stable and maintaining appropriate oxygen saturations on assist control mode of mechanical ventilation with an FiO2 requirement of 65%. The patient is currently documented to be overall net +2.8 L for the hospital admission. The patient is appropriately sedated on propofol, fentanyl and scheduled Seroquel. Creatinine has improved this morning to 3.06. Objective: The patient's most recent lab work, culture data and imaging studies have all been personally reviewed. Surface echocardiogram revealed mild segmental systolic dysfunction with an ejection fraction of 45%. Strep and urine Legionella antigens were negative. Respiratory viral panel was negative. Blood, urine and sputum cultures are pending. General: - - Remains intubated, sedated and mechanically ventilated. HEENT: Atraumatic, PERRLA, Normocephalic Oral: No Gingival or Mucosal Lesions/ Ulcerations, - - Endotracheal and OG tubes remain in place. Neck: Supple, No Nodes, Trachea Midline Lungs: No rhonchi, No wheeze, No rales, Diminished Cardiovascular: Normal S1, Normal S2, Tachycardic Abdomen: Bowel Sounds Present, Soft, Non Tender, Obese Extremities: No clubbing, No cyanosis, No edema Skin: - - No significant change from previous Musculoskeletal: No Tenderness to Palpation of Joints or Extremities Lymphatic: No Cervical, Supraclavicular, or Inguinal Adenopathy Neurological: - - No focal neurological deficits. Currently sedated on the vent. Vital Signs Temp Pulse Resp BP Pulse Ox 97.1 F L 102 H 14 91/56 L 92 06/27/20 04:00 06/27/20 05:43 06/27/20 05:00 06/27/20 05:00 06/27/20 05:43 Oxygen Flow Rate (L/min) 15 Oxygen Delivery Method Mechanical Ventilator Weight: 242 lb 15.19 oz Body Mass Index (BMI) 39.9 Intake and Output for Last 24 Hours 06/25/20 06/26/20 06/27/20 23:59 23:59 23:59 Intake Total 1596.08 / 1674.13 2941.99 / 2963.89 463.07 / 463.07 Output Total 643 / 643 936 / 936 Balance 953.08 / 1031.13 2005.99 / 2027.89 463.07 / 463.07 Labs (Last 48 Hours) 06/25/20 06/25/20 06/25/20 06:45 08:30 14:30 WBC RBC Hgb Hct MCV MCH MCHC RDW Std Deviation RDW Coeff of Ankit Plt Count MPV Immature Gran % (Auto) Neut % (Auto) Lymph % (Auto) Atkinson % (Auto) Eos % (Auto) Baso % (Auto) Absolute Neuts (auto) Absolute Lymphs (auto) Nucleated RBC % Differential Comment APTT 53.9 H 61.1 H Sodium Potassium Chloride Carbon Dioxide Anion Gap BUN Creatinine Estim Creat Clear Calc Est GFR (MDRD) Af Amer Est GFR (MDRD) Non-Af BUN/Creatinine Ratio Glucose Calcium Total Bilirubin AST ALT Alkaline Phosphatase Total Creatine Kinase Total Protein Albumin Globulin Albumin/Globulin Ratio Triglycerides MRSA (PCR) Negative POC Glucose 06/25/20 06/25/20 06/25/20 17:50 20:40 23:09 WBC RBC Hgb Hct MCV MCH MCHC RDW Std Deviation RDW Coeff of Ankit Plt Count MPV Immature Gran % (Auto) Neut % (Auto) Lymph % (Auto) Atkinson % (Auto) Eos % (Auto) Baso % (Auto) Absolute Neuts (auto) Absolute Lymphs (auto) Nucleated RBC % Differential Comment APTT 83.0 H Sodium Potassium Chloride Carbon Dioxide Anion Gap BUN Creatinine Estim Creat Clear Calc Est GFR (MDRD) Af Amer Est GFR (MDRD) Non-Af BUN/Creatinine Ratio Glucose Calcium Total Bilirubin AST ALT Alkaline Phosphatase Total Creatine Kinase Total Protein Albumin Globulin Albumin/Globulin Ratio Triglycerides MRSA (PCR) POC Glucose 176 H 191 H 06/26/20 06/26/20 06/26/20 03:50 03:50 03:50 WBC 15.4 H RBC 3.70 L Hgb 11.1 L Hct 36.3 L MCV 98.1 MCH 30.0 MCHC 30.6 L RDW Std Deviation 52.1 H RDW Coeff of Ankit 14.4 Plt Count 368 MPV 10.3 Immature Gran % (Auto) 0.900 Neut % (Auto) 91.7 H Lymph % (Auto) 3.2 L Atkinson % (Auto) 3.2 Eos % (Auto) 0.8 Baso % (Auto) 0.2 Absolute Neuts (auto) 14.1 H Absolute Lymphs (auto) 0.49 L Nucleated RBC % 0 Differential Comment SCANNED APTT 78.1 H Sodium 142 Potassium 3.8 Chloride 101 Carbon Dioxide 32.0 Anion Gap 9 BUN 61 H Creatinine 3.24 H Estim Creat Clear Calc 14.15 Est GFR (MDRD) Af Amer 18 L Est GFR (MDRD) Non-Af 15 L BUN/Creatinine Ratio 18.8 Glucose 189 H Calcium 8.8 Total Bilirubin 0.30 AST 97 H ALT 94 H Alkaline Phosphatase 87 Total Creatine Kinase Total Protein 6.7 Albumin 2.4 L Globulin 4.3 H Albumin/Globulin Ratio 0.6 L Triglycerides MRSA (PCR) POC Glucose 06/26/20 06/26/20 06/26/20 03:50 11:40 12:19 WBC RBC Hgb Hct MCV MCH MCHC RDW Std Deviation RDW Coeff of Ankit Plt Count MPV Immature Gran % (Auto) Neut % (Auto) Lymph % (Auto) Atkinson % (Auto) Eos % (Auto) Baso % (Auto) Absolute Neuts (auto) Absolute Lymphs (auto) Nucleated RBC % Differential Comment APTT 77.6 H Sodium Potassium Chloride Carbon Dioxide Anion Gap BUN Creatinine Estim Creat Clear Calc Est GFR (MDRD) Af Amer Est GFR (MDRD) Non-Af BUN/Creatinine Ratio Glucose Calcium Total Bilirubin AST ALT Alkaline Phosphatase Total Creatine Kinase 322 H Total Protein Albumin Globulin Albumin/Globulin Ratio Triglycerides 115 MRSA (PCR) POC Glucose 160 H 06/26/20 06/26/20 06/27/20 18:31 19:10 00:02 WBC RBC Hgb Hct MCV MCH MCHC RDW Std Deviation RDW Coeff of Ankit Plt Count MPV Immature Gran % (Auto) Neut % (Auto) Lymph % (Auto) Atkinson % (Auto) Eos % (Auto) Baso % (Auto) Absolute Neuts (auto) Absolute Lymphs (auto) Nucleated RBC % Differential Comment APTT 48.0 H Sodium Potassium Chloride Carbon Dioxide Anion Gap BUN Creatinine Estim Creat Clear Calc Est GFR (MDRD) Af Amer Est GFR (MDRD) Non-Af BUN/Creatinine Ratio Glucose Calcium Total Bilirubin AST ALT Alkaline Phosphatase Total Creatine Kinase Total Protein Albumin Globulin Albumin/Globulin Ratio Triglycerides MRSA (PCR) POC Glucose 162 H 135 H 06/27/20 06/27/20 06/27/20 02:15 05:00 05:00 WBC Pending RBC Pending Hgb Pending Hct Pending MCV Pending MCH Pending MCHC Pending RDW Std Deviation Pending RDW Coeff of Ankit Pending Plt Count Pending MPV Immature Gran % (Auto) Neut % (Auto) Pending Lymph % (Auto) Atkinson % (Auto) Eos % (Auto) Baso % (Auto) Absolute Neuts (auto) Pending Absolute Lymphs (auto) Nucleated RBC % Differential Comment APTT 55.7 H Sodium Pending Potassium Pending Chloride Pending Carbon Dioxide Pending Anion Gap Pending BUN Pending Creatinine Pending Estim Creat Clear Calc Est GFR (MDRD) Af Amer Pending Est GFR (MDRD) Non-Af Pending BUN/Creatinine Ratio Pending Glucose Pending Calcium Pending Total Bilirubin Pending AST Pending ALT Pending Alkaline Phosphatase Pending Total Creatine Kinase Total Protein Pending Albumin Pending Globulin Albumin/Globulin Ratio Triglycerides MRSA (PCR) POC Glucose Microbiology 06/25/20 09:15 Urine Catheter - Naqvi Urine Culture - Preliminary Culture exhibits no growth. 06/24/20 22:00 Sputum, Induced/Lukens Gram Stain - Final 06/24/20 22:00 Sputum, Induced/Lukens Respiratory Culture - Final Presumptive C albicans 06/25/20 09:15 Urine Catheter - Naqvi Streptococcus pneumoniae Antigen (M - Final 06/25/20 09:15 Urine Catheter - Naqvi Legionella Antigen - Final 06/25/20 07:35 Mucosa - Nose Respiratory Panel (PCR) - Final Clinical Impression(s) from Imaging Studies Chest X-Ray 06/24/20 07:55 IMPRESSION: Cardiomegaly. Stable increased markings at the lung bases suggestive of bibasilar atelectasis and/or scarring. Moderate size hiatal hernia. Electronically Signed: Ivan Arce, at 8:36 EDT , Service support , Chest CTA 06/24/20 08:32 IMPRESSION: Bibasilar patchy infiltrates. Increased interstitial markings suggests a mild degree of CHF. Moderate sized hiatal hernia. Electronically Signed: Ivan Arce at 9:17 EDT , Service support , Chest X-Ray 06/24/20 12:55 IMPRESSION: The tip of the endotracheal tube is at 3.9 cm proximal to the dianne. The orogastric tube lies to the left of the midline suggestive of placement within the left lower lobe bronchus. History congestion with small bilateral pleural effusions and bibasilar atelectasis more prominent on the left side. N.B. : The above information has been verbally conveyed by Ivan Arce to RIVAS CELIS on 06/24/2020 13:13:43 (ET). Electronically Signed: Ivan Arce, at 13:17 EDT , Service support , ADDENDUM: 06/24/20 1324 IMPRESSION: The tip of the endotracheal tube is at 3.9 cm proximal to the dianne. The orogastric tube lies to the left of the midline suggestive of placement within the left lower lobe bronchus. History congestion with small bilateral pleural effusions and bibasilar atelectasis more prominent on the left side. N.B. : The above information has been verbally conveyed by Ivan Arce to RIVAS CELIS on 06/24/2020 13:13:43 (ET). Electronically Signed: Ivan Arce, at 13:17 EDT , Service support , Chest X-Ray 06/24/20 16:07 IMPRESSION: 1. Endotracheal tube and enteric tube as described. 2. No other major interval change. Electronically Signed: Celestine Marcial DO at 16:51 EDT Tel [phone], Service support , KUB X-Ray 06/24/20 16:15 IMPRESSION: 1. OG tube as described. 2. No evidence for acute intra-abdominal process. 3. Bilateral pleural effusions. Electronically Signed: Celestine Marcial DO at 16:49 EDT Tel [phone], Service support , ADDENDUM: 06/24/20 1802 Chest X-Ray 06/26/20 06:11 IMPRESSION: Stable examination. Electronically Signed: Ivan Arce, at 11:08 EDT , Service support , Medical Necessity - Tobacco Use Smoking Status: Former smoker Assessment/Plan All Active Problems (Last Reviewed 06/24/20 @ 12:[address] Armond Killian MD) Hypoxemia (Acute) Cardiopulmonary arrest (Acute) Ventricular tachycardia (Acute) Ventricular fibrillation (Acute) Myocardial infarction (Acute) Acute heart failure (Acute) Chronic combined systolic and diastolic CHF (congestive heart failure) (Acute) RECOMMENDATIONS: 1. Continue to wean FiO2 and PEEP to maintain oxygen saturations at or above 90%. 2. Continue scheduled bronchodilator therapy and steroids. 3. Minimize sedation with a goal to maintain a RASS of -1 to 1. Continue titus eduled Seroquel twice daily today. 4. Continue appropriate GI prophylaxis. 5. Start Lasix IV twice daily. 6. Continue tube feeds as tolerated. IMPRESSIONS: 1. Acute on chronic combined respiratory failure The patient presented to the emergency department from the TCU, after she apparently experienced an aspiration event leading to respiratory decompensation and worsening hypoxemia. There is concern that this hypoxemia may have precipitated an acute coronary event. The patient did suffer from cardiopulmonary arrest in the emergency department and did require intubation. Her acid-base status has improved at this time. Plan to continue current supportive measures with assist control mode of mechanical ventilation, with plans to titrate FiO2 and PEEP to maintain oxygen saturations at or above 90%. Over concerns for aspiration, the patient will be continued empirically on antimicrobials. The patient will also be continued on scheduled bronchodilator therapy and steroids, over concerns for underlying COPD. 2. Status post cardiopulmonary arrest Clinical concern that hypoxemia may have precipitated cardiac decompensation. Cardiology is currently following to assist with management. At this time, we will plan to continue current supportive measures. The patient may require eventual cardiac catheterization, once medically stabilized. 3. Encephalopathy Improved. Although there was initial concern for possible anoxic brain injury, the patient has improved from a mentation standpoint. Plan to continue to minimize sedation as tolerated with a goal to maintain a RASS of -1 to 1. 4. Acute kidney injury Improving. Suspect a component of ischemic ATN in the setting of cardiopulmonary arrest. Continue to monitor urine output for now. No current indication for renal replacement therapy. 5. History of heart failure with preserved ejection fraction/paroxysmal atrial fibrillation Continue current supportive measures with additional medical intervention per cardiology recommendations. 6. Chronic pain syndrome/morbid obesity/hypertension/depression/anxiety/questionable COPD Complicates care, management, recovery and prognosis. Continue scheduled bronchodilator therapy. CODE status: Discussed CODE status at length including difference between FULL code, DNR-CCA and DNR-CC status. Following discussions about the differences in these status, the patient's daughter requested DNR-CCA CODE STATUS. TIME: 34 minutes of critical care time, independent of procedures, was spent addressing the patient's acute on chronic combined respiratory failure, status post cardiopulmonary arrest, encephalopathy, history of heart failure, acute kidney injury, review of all data and collaboration with the care team. ([id number]) [id number] Critical care first hour
[2020-06-27 06:08] LABS: ALB/GLOB Ratio 0.6 RATIO (0.9-2.4); AST(SGOT) 45 U/L (15-37); Alanine Aminotransfer ALT/SGPT 65 U/L (13-56); Albumin, Serum 2.3 g/dL (3.2-5.0); Alkaline Phosphatase 74 U/L (45-117); Anion Gap 7 (5-15); BUN 84 mg/dL (7-18); BUN/Creat Ratio 27.5 RATIO (10-20); Calcium,Total 8.7 mg/dL (8.5-10.1); Chloride 103 mmol/L (98-107); Creatinine, Serum 3.06 mg/dL (0.55-1.02); EST Glomerular Filtration Rate 16 mL/min (>60); Est Glom Filt Rate - Afr Amer 19 mL/min (>60); Estimated Creatinine Clearance 14.98 ml/min; Globulin 4.1 g/dL (2.2-4.2); Glucose 122 mg/dL (74-106); Potassium 3.6 mmol/L (3.5-5.1); Protein, Total 6.4 g/dL (6.4-8.2); Sodium Level 142 mmol/L (136-145)
[2020-06-27 07:07] LABS: Differential Indicated SCAN CRITERIA MET
[2020-06-27 07:08] LABS: Differential Comment SCANNED
--- NOTE | 2020-06-27 07:19 | PN_ITS ---
Patient Problems: Active and Suspected Problems (Last Reviewed 06/24/20 @ 12:[address] Armond Killian MD) Hypoxemia (Acute) Cardiopulmonary arrest (Acute) Ventricular tachycardia (Acute) Ventricular fibrillation (Acute) Myocardial infarction (Acute) Acute heart failure (Acute) Chronic combined systolic and diastolic CHF (congestive heart failure) (Acute) Subjective: Patient is a 69-year-old lady as well from the transitional care unit to the ED with shortness of breath who experience cardiopulmonary arrest was been evaluated in the ED. Patient was successfully resuscitated with return of spontaneous circulation after almost 2 hours. Patient was intubated in the ED and started on Levophed admitted to the intensive care unit. Patient became more responsive whilst in the ICU necessitating initiation of sedation hospital stay complicated by worsening kidney function Patient seen remains on the vent patient was placed on propofol to assist with her sedation. Patient creatinine remains elevated at 3. Was seen in consultation by nephrology the day prior. Objective: GENERAL: On the vent HEENT: ET tube in place EYES; Anicteric, NECK; supple, normal thyroid, RESPIRATORY: Diminished to auscultation CARDIOVASCULAR: Regular S1 S2, GI: soft, normoactive bowel sounds, : No Renal angle tenderness; EXTREMITIES: Right foot in surgical dressing MUSCULOSKELETAL: no muscle waisting NEURO: Sedated on the vent f SKIN: No Rash Vitals/I&O's: Vital Signs Temp Pulse Resp BP Pulse Ox 98.3 F 115 H 20 H 109/71 91 06/27/20 07:00 06/27/20 07:00 06/27/20 07:00 06/27/20 07:00 06/27/20 07:00 Oxygen Flow Rate (L/min) 15 Oxygen Delivery Method Mechanical Ventilator Weight: 110.2 kg Body Mass Index (BMI) 39.9 Intake and Output for Last 24 Hours 06/25/20 06/26/20 06/27/20 23:59 23:59 23:59 Intake Total 1596.08 / 1674.13 2941.99 / 2963.89 527.09 / 527.09 Output Total 643 / 643 936 / 936 175 / 175 Balance 953.08 / 1031.13 2005.99 / 7.89 352.09 / 352.09 Microbiology Past 72 Hours 06/25/20 09:15 Urine Catheter - Naqvi Urine Culture - Preliminary Culture exhibits no growth. 06/24/20 22:00 Sputum, Induced/Lukens Gram Stain - Final 06/24/20 22:00 Sputum, Induced/Lukens Respiratory Culture - Final Presumptive C albicans 06/25/20 09:15 Urine Catheter - Naqvi Streptococcus pneumoniae Antigen (M - Final 06/25/20 09:15 Urine Catheter - Naqvi Legionella Antigen - Final 06/25/20 07:35 Mucosa - Nose Respiratory Panel (PCR) - Final Laboratory Results 06/26/20 03:50: Total Creatine Kinase 322 H, Triglycerides 115 06/26/20 11:40: APTT 77.6 H 06/26/20 12:19: POC Glucose 160 H 06/26/20 18:31: POC Glucose 162 H 06/26/20 19:10: APTT 48.0 H 06/27/20 00:02: POC Glucose 135 H 06/27/20 02:15: APTT 55.7 H 06/27/20 05:00: WBC 18.5 H, RBC 3.29 L, Hgb 9.8 L, Hct 32.7 L, MCV 99.4 H, MCH 29.8, MCHC 30.0 L, RDW Std Deviation 51.8 H, RDW Coeff of Anikt 14.3, Plt Count 340, MPV 10.6, Immature Gran % (Auto) 0.800, Neut % (Auto) 92.5 H, Lymph % (Auto) 3.1 L, [place] % (Auto) 3.5, Eos % (Auto) 0.0, Baso % (Auto) 0.1, Absolute Neuts (auto) 17.1 H, Absolute Lymphs (auto) 0.57 L, Nucleated RBC % 0, Differential Comment SCANNED 06/27/20 05:00: Sodium 142, Potassium 3.6, Chloride 103, Carbon Dioxide 32.0, Anion Gap 7, BUN 84 H, Creatinine 3.06 H, Estim Creat Clear Calc 14.98, Est GFR (MDRD) Af Amer 19 L, Est GFR (MDRD) Non-Af 16 L, BUN/Creatinine Ratio 27.5 H, Glucose 122 H, Calcium 8.7, Total Bilirubin 0.30, AST 45 H, ALT 65 H, Alkaline Phosphatase 74, Total Protein 6.4, Albumin 2.3 L, Globulin 4.1, Albumin/Globulin Ratio 0.6 L Current Medications Acetaminophen (Acetaminophen 650 Mg/20 Ml Udc) 650 mg NG Q4H PRN PRN PRN Reason: temp>101.0 Last Admin: 06/25/20 17:52 Dose: 650 mg Documented by: Albuterol Sulfate (Albuterol 2.5 Mg/3 Ml Vial.Neb.) 2.5 mg INHALATION Q2H PRN PRN PRN Reason: SOB/Wheezing Albuterol/Ipratropium (Ipratropium/Albuterol Sulfate 3 Ml Ampul.Neb) 3 ml INHALATION Q4H.RT [facility] Last Admin: 06/27/20 06:51 Dose: 3 ml Documented by: Aspirin (Aspirin E.C. 81 Mg Tablet) 81 mg PO DAILY@0800 [facility] Last Admin: 06/26/20 08:13 Dose: 81 mg Documented by: Chlorhexidine Gluconate (Chlorhexidine 15 Ml) 15 ml PO BID [facility] Last Admin: 06/26/20 22:25 Dose: 15 ml Documented by: Dextrose (Dextrose 50%-Water 25 Gm/50 Ml Disp.Syrin) 0 gm IV X1 PRN; Protocol PRN Reason: Hypoglycemia Famotidine (Famotidine 20 Mg Tablet) 20 mg NG DAILY [facility] Last Admin: 06/26/20 08:13 Dose: 20 mg Documented by: Furosemide (Furosemide 40 Mg/4 Ml Vial) 40 mg IV BID@1000,1800 [facility] Glucagon (Glucagon 1 Mg/Ml Syringe) 1 mg IM .X1 PRN PRN Reason: Hypoglycemia Heparin Sodium (Beef Lung) (Heparin Pf Lock 10 Units/Ml 50 Units/5 Ml Syringe) 50 units IV UD PRN PRN Reason: PICC Line Heparin Flush Heparin Sodium (Porcine) (Heparin Injection (Vial) 5,000 Unit/Ml Vial) 0 unit IV UD PRN; Protocol PRN Reason: dose adjustment Last Admin: 06/24/20 17:33 Dose: 4,000 unit Documented by: Heparin Sodium/Dextrose () 25,000 units in 250 mls @ 10 mls/hr IV .Q25H [facility]; Protocol Last Titration: 06/27/20 07:00 Dose: 900 units/hr, 9 mls/hr Documented by: Sodium Chloride () 250 mls @ 15 mls/hr IV .[id number] PRN PRN Reason: Saline Flush Last Infusion: 06/26/20 17:33 Dose: Infused Documented by: Sodium Chloride () 250 mls @ 15 mls/hr IV .[id number] PRN PRN Reason: Additional IVPB Infusion Fentanyl Citrate 1,000 mcg/ (Sodium Chloride) 100 mls @ 5 mls/hr CONT INF .Q20H [facility]; Protocol Last Titration: 06/27/20 07:00 Dose: 200 mcg/hr, 20 mls/hr Documented by: Enteral Nutritional Formula (Vital High Protein) 1,000 mls @ 60 mls/hr GT .[id number] [facility] Last Admin: 06/27/20 00:10 Dose: 60 mls/hr Documented by: Dexmedetomidine HCl 1,000 mcg/ (Sodium Chloride) 250 mls @ 13.275 mls/hr CONT INF .[id number] [facility]; Protocol Last Titration: 06/26/20 16:00 Dose: Infused Documented by: Vancomycin IV Pharmacy to Dose (1 ea/ Sodium Chloride) 500 mls @ 250 mls/hr IV PRN PRN; Protocol PRN Reason: Rx to Dose Ampicillin Sodium/Sulbactam (Sodium 3 gm/ Sodium Chloride) 112 mls @ 150 mls/hr IV Q12 KIM Last Infusion: 06/26/20 23:11 Dose: Infused Documented by: Propofol (Diprivan) 1,000 mg in 100 mls @ 6.474 mls/hr CONT INF .Q12H [facility]; Protocol Last Titration: 06/27/20 07:01 Dose: 25 mcg/kg/min, 16.2 mls/hr Documented by: Insulin Human Lispro (Insulin Lispro 100 Unit/Ml Insuln.Pen) 0 unit SC Q6 [facility]; Protocol Last Admin: 06/27/20 06:15 Dose: Not Given Documented by: L-Arginine/L-Glutamine/Calcium HMB (Rosendo (Unflavored) Packet) 1 packet NG BIDCM [facility] Last Admin: 06/26/20 18:32 Dose: 1 packet Documented by: Prednisone (Prednisone 20 Mg Tablet) 40 mg NG DAILY@0800 [facility] Quetiapine Fumarate (Quetiapine 25 Mg Tablet) 50 mg PO BID [facility] Last Admin: 06/26/20 22:26 Dose: 50 mg Documented by: Senna/Docusate Sodium (Senna/Docusate Sodium 1 Tablet) 2 tablet NG BID [facility] Last Admin: 06/26/20 22:25 Dose: 2 tablet Documented by: Sodium Chloride (0.9% Saline Lock 10 Ml Syringe) 10 - 40 ml IV UD PRN PRN Reason: Open End PICC Flush Last Admin: 06/27/20 06:27 Dose: 40 ml Documented by: Sodium Chloride (0.9 % Nacl (Sterile) Posiflush 10 Ml) 10 - 40 ml IV UD PRN PRN Reason: Port access or dressing change Sodium Chloride (0.9% Saline Lock 10 Ml Syringe) 10 - 40 ml IV UD PRN PRN Reason: SALINE FLUSH STROKE Vital Signs/Narrative: Vital Signs Temp Pulse Resp BP Pulse Ox 06/27/20 07:00 98.3 F 115 H 20 H 109/71 91 06/27/20 06:00 98.1 F 99 15 130/81 H 88 06/27/20 05:43 102 H 92 06/27/20 05:00 78 14 91/56 L 91 06/27/20 04:00 97.1 F L 95 21 H 102/61 88 06/27/20 03:25 84 20 H 94 Medical Necessity - Tobacco Use Smoking Status: Former smoker Assessment/Plan All Active Problems (Last Reviewed 06/24/20 @ 12:[address] Armond Killian MD) Hypoxemia (Acute) Cardiopulmonary arrest (Acute) Ventricular tachycardia (Acute) Ventricular fibrillation (Acute) Myocardial infarction (Acute) Acute heart failure (Acute) Chronic combined systolic and diastolic CHF (congestive heart failure) (Acute) Patient is a 69-year-old lady as well from the transitional care unit to the ED with shortness of breath who experience cardiopulmonary arrest was been evaluated in the ED. Patient was successfully resuscitated with return of spontaneous circulation after almost 2 hours. Patient was intubated in the ED and started on Levophed admitted to the intensive care unit 1. Acute cardiopulmonary arrest with high suspicion for acute myocardial infarction ?Patient did experience cardiopulmonary arrest in the ED Patient was successfully resuscitated with return of spontaneous circulation after almost 2 hours patient was started on heparin drip, ordered serial cardiac enzymes, 2D echo and consult placed to cardiology Dr. Sal Bai was notified from the ED prior to patient being admitted 06/25/2020: Patient level of sensorium did improve was on the vent necessitating initiation of sedation. Patient however is awake and responsive on the vent. 2. Acute hypoxic respiratory failure secondary to cardiopulmonary arrest as well as aspiration pneumonia ?Following patient cardiopulmonary arrest imaging studies obtained in the ED demonstrated Bibasilar patchy infiltrates. Increased interstitial markings suggests a mild degree of CHF. Patient was intubated in the ED prior to patient being admitted to the intensive care unit vent management deferred to pulmonary medicine 06/25/2020; repeat transthoracic echo obtained the day prior demonstrated anteroapical/septal Hypokinesia EF 35-40% -06/26/2020; patient remains on the vent. Currently on Precedex drip however appears agitated. 06/27/2020; patient remains on the vent propofol was added to her sedation. 3. Aspiration pneumonia ?Sputum culture so far positive for 4+ gram-positive cocci. Vancomycin added to therapy ?06/27/2020 final sputum cultures positive for Luly albicans possibly secondary to colonization 4. Acute kidney injury ?Secondary to ATN. Patient kidney function continues to worsen consult placed to nephrology ?06/27/2020; creatinine remains significantly elevated however did improve from 3.24 to 3.06. Patient has been seen in consultation by nephrology notes and recommendations reviewed 5. Hypotension ?Secondary to cardiogenic shock. Patient started on Levophed -06/26/2020; Levophed weaned off 6. Congestive heart failure with preserved ejection fraction ?Recent 2D echo obtained on 06/15/2020 demonstrated EF of 50%. imaging studies obtained in the ED demonstrated Bibasilar patchy infiltrates. Increased interstitial markings suggests a mild degree of CHF patient was however not started on Lasix in view of patient being hypotensive -06/25/2020:Limited TTE showed anteroapical/septal Hypokinesia EF 35-40% -06/26/2020; 2D echo obtained the day prior demonstrated Mild segmental systolic dysfunction (see wall motion). The estimated ejection fraction is 45 %. The left atrium is mildly enlarged. There is mild mitral annular calcification. Unable to assess diastolic dysfunction. 7. Osteomyelitis involving the right second toe Status post debridement and partial amputation on 06/17/[address] Montilla. Bone culture demonstrates staph aureus, MSSA. Patient was discharged to the transitional care unit on Rocephin 8. Paroxysmal A. fib ?Rate controlled 9. 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 with BMI of 40.6 -Counseled on weight reduction following extubation 10. Essential hypertension -Hypertensives on hold in view of patient's hypotension 11. Depression with anxiety -Resume home meds after patient is weaned off the vent 12. Chronic hypoxic respiratory failure on baseline home O2 secondary to COPD -Patient currently on the vent 13. DVT prophylaxis ? heparin Inpatient E&M: [id number] [facility] L3
--- NOTE | 2020-06-27 08:02 | EKG12_ITS ---
Test Reason : Blood Pressure : / mmHG Vent. Rate : 105 BPM Atrial Rate : 105 BPM P-R Int : 152 ms QRS Dur : 188 ms QT Int : 422 ms P-R-T Axes : -25 -59 015 degrees QTc Int : 557 ms Sinus tachycardia Right bundle branch block Left anterior fascicular block Bifascicular block Abnormal ECG Confirmed by ROCAEL LAMBERT, BOBBI ([id number]), newspaper or periodical editor KAY SERRANO ([id number]) on 06/30/2020 12:58:00 PM Referred By: Tish Goldstein Confirmed By:BOBBI COTE MD
[2020-06-27] MEDS: Propofol 10MG/Ml 1,000 MG/100 ML Bottle 16.2 MG CONT INF ×3 (08:25→20:35)
--- NOTE | 2020-06-27 08:45 | PCM.PN.CARD ---
Subjectve: This is a 69-year-old white female who remains mechanically intubated/ventilated at this time. Objective: Vital Signs Temp Pulse Resp BP Pulse Ox 98.6 F 104 H 14 119/73 91 06/27/20 08:00 06/27/20 08:00 06/27/20 08:00 06/27/20 08:00 06/27/20 08:00 Oxygen Flow Rate (L/min) 15 Oxygen Delivery Method Mechanical Ventilator Weight: 242 lb 15.19 oz Body Mass Index (BMI) 39.9 Intake and Output for Last 24 Hours 06/25/20 06/26/20 06/27/20 23:59 23:59 23:59 Intake Total 1596.08 / 1674.13 2941.99 / 2963.89 578.77 / 578.77 Output Total 643 / 643 936 / 936 225 / 225 Balance 953.08 / 1031.13 2005.99 / 2027.89 353.77 / 353.77 Lungs: Rhonchi Cardiovascular: Regular Rhythm, Normal S1, Normal S2 Abdomen: Bowel Sounds Present, Soft Extremities: No edema 06/26/20 03:50: Triglycerides 115 06/26/20 11:40: APTT 77.6 H 06/26/20 19:10: APTT 48.0 H 06/27/20 02:15: APTT 55.7 H 06/27/20 05:00: WBC 18.5 H, RBC 3.29 L, Hgb 9.8 L, Hct 32.7 L, MCV 99.4 H, MCH 29.8, MCHC 30.0 L, Plt Count 340, MPV 10.6, Immature Gran % (Auto) 0.800, Neut % (Auto) 92.5 H, Lymph % (Auto) 3.1 L, [place] % (Auto) 3.5, Eos % (Auto) 0.0, Baso % (Auto) 0.1, Absolute Neuts (auto) 17.1 H, Nucleated RBC % 0 06/27/20 05:00: Sodium 142, Potassium 3.6, Chloride 103, Carbon Dioxide 32.0, Anion Gap 7, BUN 84 H, Creatinine 3.06 H, Est GFR (MDRD) Af Amer 19 L, Est GFR (MDRD) Non-Af 16 L, BUN/Creatinine Ratio 27.5 H, Glucose 122 H, Calcium 8.7, Total Bilirubin 0.30 Rhythm: Sinus rhythm/sinus tachycardia EKG: Sinus tachycardia; left axis deviation; right bundle branch block pattern; possible left anterior fascicular block Medical Necessity - Tobacco Use Smoking Status: Former smoker Assessment/Plan 1. Acute cardiopulmonary arrest The patient experienced an acute cardiopulmonary arrest. There is concerns as to whether or not this may have been initiated by aspiration pneumonia and hypoxemia. According to the medical records available for review this arrest was a prolonged event. She was evaluated by interventional cardiology at the time who did not recommend urgent/emergent diagnostic cardiac catheterization. This was pending the outcome of her cardiopulmonary arrest, neurologic status, multiple comorbidities, etc. The patient has been evaluated by [facility] cardiology in the past. The information obtained is as noted in her previous cardiology progress note. At the present time the patient is in the ICU. She remains mechanically intubated and ventilated. She is going to continue supportive care at this time. Depending upon the outcome of her multiple medical issues she can be considered for future evaluation in the cardiac catheterization laboratory. 2. Paroxysmal atrial fibrillation/ventricular tachycardia The patient has, per previous medical records from 2018, reports of paroxysmal atrial fibrillation as well as paroxysmal ventricular tachycardia. She has been evaluated for these issues at [facility]. It appears she was treated medically and underwent EPS/RFA of PVCs. At the moment she will continue to have her rate and rhythm monitored. As her blood pressure appears to have improved somewhat attempt will remain to initiate low-dose beta-blockers and follow her rate and rhythm. 3. CHF: Acute systolic She has a history of CHF. In the past this was reported as combined systolic and diastolic. There are concerns at this time she may have experienced, based on her event, an episode of acute systolic CHF. She remains in the ICU mechanically intubated and ventilated. She will continue to be followed. She will continue medical management as she is able to. 4. Hypotension Her blood pressure appears to be somewhat improved at this time. She is continuing evaluation care per pulmonology/critical care medicine. 5. COPD The patient has a history of COPD. She will need to continue evaluation care per internal medicine and pulmonology. 7. Obstructive sleep apnea The patient has per previous records a history of obstructive sleep apnea for which she has been reported is noncompliant with follow-up and care. She will need continued valuation care by her primary care physicians. 8. Obesity The patient has been reported as being obese in the past and currently. She apparently has been counseled in the past regarding diet and activity, etc., to try and bring her weight under better control. 9. Renal insufficiency Her creatinine has improved somewhat although remains elevated. Overall, at the present time, the patient will continue in the ICU. She will continue supportive care. Depending upon the outcome of her multiple comorbidities consideration will be given as to whether or not she is a candidate for further evaluation such as diagnostic cardiac catheterization, however, there is concern at this time based upon her marked renal insufficiency with the possibility of additional IV contrast related nephropathy. Comment: The patient's case has been discussed and reviewed with Dr. Davis and Dr. Killian. This note was generated using a voice recognition system and there may be incorrect words, spelling or punctuation that were not noted when reviewing the office note prior to saving.
--- NOTE | 2020-06-27 09:01 | PCM.PN.REN ---
Patient Problems: Active and Suspected Problems (Last Reviewed 06/24/20 @ 12:[address] Armond Killian MD) Hypoxemia (Acute) Cardiopulmonary arrest (Acute) Ventricular tachycardia (Acute) Ventricular fibrillation (Acute) Myocardial infarction (Acute) Acute heart failure (Acute) Chronic combined systolic and diastolic CHF (congestive heart failure) (Acute) Subjective: Patient remains intubated. Cannot for ROS - Physical Exam Vitals/I&O's: Vital Signs Temp Pulse Resp BP Pulse Ox 98.6 F 104 H 14 119/73 91 06/27/20 08:00 06/27/20 08:00 06/27/20 08:00 06/27/20 08:00 06/27/20 08:00 Oxygen Flow Rate (L/min) 15 Oxygen Delivery Method Mechanical Ventilator Weight: 110.2 kg Body Mass Index (BMI) 39.9 Intake and Output for Last 24 Hours 06/25/20 06/26/20 06/27/20 23:59 23:59 23:59 Intake Total 1596.08 / 1674.13 2941.99 / 2963.89 578.77 / 578.77 Output Total 643 / 643 936 / 936 225 / 225 Balance 953.08 / 1031.13 2005. / 2026.89 353.77 / 353.77 General: - - intubated HEENT: Atraumatic Oral: Moist Mucosa Neck: Supple, No JVD Lungs: Clear to auscultation, Normal air movement, No rhonchi, No wheeze Cardiovascular: Regular rate, Regular Rhythm, Normal S1, Normal S2 Abdomen: Bowel Sounds Present, Soft, Non-Distended Extremities: No clubbing, No cyanosis, No edema Skin: No rashes Musculoskeletal: No Muscle Wasting Lymphatic: No Cervical, Supraclavicular, or Inguinal Adenopathy Psych/Mental Status: - - sedated Microbiology Past 72 Hours 06/25/20 06:45 Blood Culture (Wb) - Anticubital Right Blood Culture - Preliminary No growth in 48 hours. 06/25/20 09:06 Blood Culture (Wb) - Central Line Blood Culture - Preliminary No growth in 48 hours. 06/25/20 09:15 Urine Catheter - Naqvi Urine Culture - Final Culture exhibits no growth. 06/24/20 22:00 Sputum, Induced/Lukens Gram Stain - Final 06/24/20 22:00 Sputum, Induced/Lukens Respiratory Culture - Final Presumptive C albicans 06/25/20 09:15 Urine Catheter - Naqvi Streptococcus pneumoniae Antigen (M - Final 06/25/20 09:15 Urine Catheter - Naqvi Legionella Antigen - Final 06/25/20 07:35 Mucosa - Nose Respiratory Panel (PCR) - Final Laboratory Results 06/26/20 03:50: Total Creatine Kinase 322 H, Triglycerides 115 06/26/20 11:40: APTT 77.6 H 06/26/20 12:19: POC Glucose 160 H 06/26/20 18:31: POC Glucose 162 H 06/26/20 19:10: APTT 48.0 H 06/27/20 00:02: POC Glucose 135 H 06/27/20 02:15: APTT 55.7 H 06/27/20 05:00: WBC 18.5 H, RBC 3.29 L, Hgb 9.8 L, Hct 32.7 L, MCV 99.4 H, MCH 29.8, MCHC 30.0 L, RDW Std Deviation 51.8 H, RDW Coeff of Ankit 14.3, Plt Count 340, MPV 10.6, Immature Gran % (Auto) 0.800, Neut % (Auto) 92.5 H, Lymph % (Auto) 3.1 L, [place] % (Auto) 3.5, Eos % (Auto) 0.0, Baso % (Auto) 0.1, Absolute Neuts (auto) 17.1 H, Absolute Lymphs (auto) 0.57 L, Nucleated RBC % 0, Differential Comment SCANNED 06/27/20 05:00: Sodium 142, Potassium 3.6, Chloride 103, Carbon Dioxide 32.0, Anion Gap 7, BUN 84 H, Creatinine 3.06 H, Estim Creat Clear Calc 14.98, Est GFR (MDRD) Af Amer 19 L, Est GFR (MDRD) Non-Af 16 L, BUN/Creatinine Ratio 27.5 H, Glucose 122 H, Calcium 8.7, Total Bilirubin 0.30, AST 45 H, ALT 65 H, Alkaline Phosphatase 74, Total Protein 6.4, Albumin 2.3 L, Globulin 4.1, Albumin/Globulin Ratio 0.6 L 06/27/20 08:50: APTT Pending 06/27/20 08:50: Random Vancomycin Pending Current Medications Acetaminophen (Acetaminophen 650 Mg/20 Ml Udc) 650 mg NG Q4H PRN PRN PRN Reason: temp>101.0 Last Admin: 06/25/20 17:52 Dose: 650 mg Documented by: Albuterol Sulfate (Albuterol 2.5 Mg/3 Ml Vial.Neb.) 2.5 mg INHALATION Q2H PRN PRN PRN Reason: SOB/Wheezing Albuterol/Ipratropium (Ipratropium/Albuterol Sulfate 3 Ml Ampul.Neb) 3 ml INHALATION Q4H.RT KIM Last Admin: 06/27/20 06:51 Dose: 3 ml Documented by: Aspirin (Aspirin 81 Mg Tab.Chew) 81 mg NG DAILY@0800 [facility] Chlorhexidine Gluconate (Chlorhexidine 15 Ml) 15 ml PO BID KIM Last Admin: 06/26/20 22:25 Dose: 15 ml Documented by: Dextrose (Dextrose 50%-Water 25 Gm/50 Ml Disp.Syrin) 0 gm IV X1 PRN; Protocol PRN Reason: Hypoglycemia Famotidine (Famotidine 20 Mg Tablet) 20 mg NG DAILY [facility] Last Admin: 06/26/20 08:13 Dose: 20 mg Documented by: Furosemide (Furosemide 40 Mg/4 Ml Vial) 40 mg IV BID@1000,1800 KIM Glucagon (Glucagon 1 Mg/Ml Syringe) 1 mg IM .X1 PRN PRN Reason: Hypoglycemia Heparin Sodium (Beef Lung) (Heparin Pf Lock 10 Units/Ml 50 Units/5 Ml Syringe) 50 units IV UD PRN PRN Reason: PICC Line Heparin Flush Heparin Sodium (Porcine) (Heparin Injection (Vial) 5,000 Unit/Ml Vial) 0 unit IV UD PRN; Protocol PRN Reason: dose adjustment Last Admin: 06/24/20 17:33 Dose: 4,000 unit Documented by: Heparin Sodium/Dextrose () 25,000 units in 250 mls @ 10 mls/hr IV .Q25H KIM; Protocol Last Titration: 06/27/20 08:00 Dose: 900 units/hr, 9 mls/hr Documented by: Sodium Chloride () 250 mls @ 15 mls/hr IV .[id number] PRN PRN Reason: Saline Flush Last Infusion: 06/26/20 17:33 Dose: Infused Documented by: Sodium Chloride () 250 mls @ 15 mls/hr IV .[id number] PRN PRN Reason: Additional IVPB Infusion Fentanyl Citrate 1,000 mcg/ (Sodium Chloride) 100 mls @ 5 mls/hr CONT INF .Q20H [facility]; Protocol Last Titration: 06/27/20 08:00 Dose: 200 mcg/hr, 20 mls/hr Documented by: Enteral Nutritional Formula (Vital High Protein) 1,000 mls @ 60 mls/hr GT .[id number] [facility] Last Admin: 06/27/20 00:10 Dose: 60 mls/hr Documented by: Vancomycin IV Pharmacy to Dose (1 ea/ Sodium Chloride) 500 mls @ 250 mls/hr IV PRN PRN; Protocol PRN Reason: Rx to Dose Ampicillin Sodium/Sulbactam (Sodium 3 gm/ Sodium Chloride) 112 mls @ 150 mls/hr IV Q12 [facility] Last Infusion: 06/26/20 23:11 Dose: Infused Documented by: Propofol (Diprivan) 1,000 mg in 100 mls @ 6.474 mls/hr CONT INF .Q12H [facility]; Protocol Last Admin: 06/27/20 08:25 Dose: 25 mcg/kg/min, 16.2 mls/hr Documented by: Insulin Human Lispro (Insulin Lispro 100 Unit/Ml Insuln.Pen) 0 unit SC Q6 [facility]; Protocol Last Admin: 06/27/20 06:15 Dose: Not Given Documented by: L-Arginine/L-Glutamine/Calcium HMB (Rosendo (Unflavored) Packet) 1 packet NG BIDCM [facility] Last Admin: 06/26/20 18:32 Dose: 1 packet Documented by: Prednisone (Prednisone 20 Mg Tablet) 40 mg NG DAILY@0800 [facility] Quetiapine Fumarate (Quetiapine 25 Mg Tablet) 50 mg PO BID [facility] Last Admin: 06/26/20 22:26 Dose: 50 mg Documented by: Senna/Docusate Sodium (Senna/Docusate Sodium 1 Tablet) 2 tablet NG BID [facility] Last Admin: 06/26/20 22:25 Dose: 2 tablet Documented by: Sodium Chloride (0.9% Saline Lock 10 Ml Syringe) 10 - 40 ml IV UD PRN PRN Reason: Open End PICC Flush Last Admin: 06/27/20 06:27 Dose: 40 ml Documented by: Sodium Chloride (0.9 % Nacl (Sterile) Posiflush 10 Ml) 10 - 40 ml IV UD PRN PRN Reason: Port access or dressing change Sodium Chloride (0.9% Saline Lock 10 Ml Syringe) 10 - 40 ml IV UD PRN PRN Reason: SALINE FLUSH Medical Necessity - Tobacco Use Smoking Status: Former smoker Assessment/Plan All Active Problems (Last Reviewed 06/24/20 @ 12:[address] Armond Killian MD) Hypoxemia (Acute) Cardiopulmonary arrest (Acute) Ventricular tachycardia (Acute) Ventricular fibrillation (Acute) Myocardial infarction (Acute) Acute heart failure (Acute) Chronic combined systolic and diastolic CHF (congestive heart failure) (Acute) 1- EMMANUEL on CKD stage 3. Baseline SCr ~ 1.14 mg/dl EMMANUEL is likely ischemic ATN. SCr peaked at 3.2 mg/dl. SCr is slightly better today Patient is non oliguric. UOP increased No need for SOFTWARE TEST AND VALIDATION ENGINEER today Ok with diuresis Will continue to evaluate the need of SOFTWARE TEST AND VALIDATION ENGINEER daily Keep MAP > 65 Monitor RFP and UOP 2- S/P CPA with prolonged resuscitation Off pressor this morning. hemodynamically stable 3- Acute MN . cardiology is following. Might need cardiac cath when she is more stable 4- Acute RF from aspiration and MN Ok with diuresis Abx treatment and vent support as per ICU team d/w Dr. Davis Renal service will continue to follow. Please call if any question at [phone] Dianna Castaneda MD
[2020-06-27 09:14] LABS: Partial Thromboplast Time 39.9 Seconds (24.1-36.2)
[2020-06-27 09:51] LABS: Vancomycin, Random Level 19.7 ug/mL (0.0-15.0)
[2020-06-27] MEDS: Senna/Docusate Sodium 1 Tablet 2 TABLET NG ×2 (10:06→21:14)
[2020-06-27] MEDS: Aspirin 81 MG TAB.CHEW NG (10:07)
[2020-06-27] MEDS: Furosemide 40 MG/4 ML Vial IV ×2 (10:07→18:29)
[2020-06-27] MEDS: Famotidine 20 MG Tablet NG (10:07)
[2020-06-27] MEDS: Metoprolol Tartrate 5 MG/5 ML Vial 2.5 MG IV (10:07)
[2020-06-27] MEDS: QUEtiapine 25 MG Tablet 50 MG PO ×2 (10:07→21:13)
[2020-06-27] MEDS: predniSONE 20 MG Tablet 40 MG NG (10:08)
[2020-06-27] MEDS: Heparin Injection (Vial) 5,000 UNIT/ML VIAL IV (10:08)
[2020-06-27] MEDS: Juven (unflavored) Packet 1 PACKET NG ×2 (10:17→16:02)
[2020-06-27] MEDS: Chlorhexidine 15 ML PO ×2 (10:17→20:35)
[2020-06-27] MEDS: Polyethylene Glycol 3350 17 GM PACKET NG (10:25)
--- NOTE | 2020-06-27 10:35 | PCM.RX.CS ---
Consult Pharmacy has been consulted to manage selected antiobiotic: Vancomycin Type of Consult: Follow-up Prior Doses of Antibiotics Received/Current Regimen: received 2000mg x1 yesterday at 06:41 Labs: Sodium 142 mmol/L (136-145) 06/27/20 05:00 Potassium 3.6 mmol/L (3.5-5.1) 06/27/20 05:00 Chloride 103 mmol/L (98-107) 06/27/20 05:00 Carbon Dioxide 32.0 mmol/L (21.0-32.0) 06/27/20 05:00 Anion Gap 7 (5-15) 06/27/20 05:00 BUN 84 mg/dL (7-18) H 06/27/20 05:00 Creatinine 3.06 mg/dL (0.55-1.02) H 06/27/20 05:00 Est GFR (MDRD) Af Amer 19 mL/min (>60) L 06/27/20 05:00 Est GFR (MDRD) Non-Af 16 mL/min (>60) L 06/27/20 05:00 BUN/Creatinine Ratio 27.5 RATIO (10-20) H 06/27/20 05:00 Glucose 122 mg/dL (74-106) H 06/27/20 05:00 Random Vancomycin 19.7 ug/mL (0.0-15.0) H 06/27/20 08:50 Microbiology: Microbiology 06/25/20 06:45 Blood Culture (Wb) - Anticubital Right Blood Culture - Preliminary No growth in 48 hours. 06/25/20 09:06 Blood Culture (Wb) - Central Line Blood Culture - Preliminary No growth in 48 hours. 06/25/20 09:15 Urine Catheter - Naqvi Urine Culture - Final Culture exhibits no growth. 06/24/20 22:00 Sputum, Induced/Lukens Gram Stain - Final 06/24/20 22:00 Sputum, Induced/Lukens Respiratory Culture - Final Presumptive C albicans 06/25/20 09:15 Urine Catheter - Naqvi Streptococcus pneumoniae Antigen (M - Final 06/25/20 09:15 Urine Catheter - Naqvi Legionella Antigen - Final 06/25/20 07:35 Mucosa - Nose Respiratory Panel (PCR) - Final Weight used for dosin.2 kg Estimated Creatinine Clearance: 15ml/min Goal Trough: 15-20 mcg/mL Pharmacy Plan for Drug Dosing: The vancomycin random level drawn today at 08:50 came back at 19.7. Per [facility] protocol for dosing in patients with CrCl<20, will redose today with 1750mg IV x1. The patient's CrCl is still below 20 and SCr is 3.06, so will order another random level for tomorrow about 24 hours after the dose today. Further dosing will be evaluated at that time. Pharmacy Service will continue to monitor and adjust dosing as required. Follow-Up Labs: Trough Vancomycin - random Labs to be done on [date and time ordered]: 06/28/20 12:00
--- NOTE | 2020-06-27 11:03 | CASEMGMT ---
RN CM continued stay note: participated in ICU interdisciplinary rounds. Remains on ventilator with 65-80% Oxygen needs. On Fentanyl and Propofol, Zosyn, Fentanyl. No VIRTUALIZATION CONSULTANT today, continue diuresis per nephrology. DC planning: anticipate return to TCU on discharge. Sheyla SHANNONN RN ACM
[2020-06-27 12:35] LABS: Bedside Glucose 131 mg/dL (70-110)
[2020-06-27] MEDS: HEPARIN/D5w 25,000 UNITS 25,000 UNITS/250 ML IV.SOLN. 11 UNITS IV (15:35)
[2020-06-27 16:52] LABS: Partial Thromboplast Time 45.7 Seconds (24.1-36.2)
--- NOTE | 2020-06-27 22:00 | NURSING ---
Fentanyl said on the NOV it was done running yet still some in the bag, CPOT was 0/2 at 22:00 unable to chart on the NOV due to it saying infusion complete.
[2020-06-27 23:51] LABS: Bedside Glucose 130 mg/dL (70-110)
[2020-06-27 23:53] LABS: Partial Thromboplast Time 46.9 Seconds (24.1-36.2)
[2020-06-28] VITALS (42 sets, daily range): BP systolic 94–117; BP diastolic 50–68; PULSE 76–112; RESP 13–91; TEMP 37.3–37.6; O2SAT 80–97
[2020-06-28] MEDS: Propofol 10MG/Ml 1,000 MG/100 ML Bottle 16.2 MG CONT INF ×4 (02:56→18:57)
[2020-06-28] MEDS: Ipratropium/Albuterol Sulfate 3 ML AMPUL.NEB INHALATION ×6 (03:13→23:05)
--- NOTE | 2020-06-28 05:59 | PN_ITS ---
Subjective: The patient was seen and examined at the bedside this morning. Events from the last 24 hours have been reviewed. The patient currently has a low-grade fever but remains hemodynamically stable. She remains on assist control mode of mechanical ventilation with an FiO2 requirement of 80%. The patient is currently documented to be overall net +4.2 L for the hospital admission. Objective: The patient's most recent lab work, culture data and imaging studies have all been personally reviewed. Surface echocardiogram revealed mild segmental systolic dysfunction with an ejection fraction of 45%. Strep and urine Legionella antigens were negative. Respiratory viral panel was negative. Blood, urine and sputum cultures are pending. General: - - Remains intubated, sedated and mechanically ventilated. HEENT: Atraumatic, Normocephalic Oral: No Gingival or Mucosal Lesions/ Ulcerations, - - Stable endotracheal and OG tubes. Neck: Supple, No Nodes, Trachea Midline Lungs: No rhonchi, No wheeze, No rales, Diminished Cardiovascular: Normal S1, Normal S2, Tachycardic Abdomen: Bowel Sounds Present, Soft, Non Tender, Obese Extremities: No clubbing, No cyanosis, No edema Skin: - - No significant change from previous. Musculoskeletal: No Muscle Wasting Lymphatic: No Cervical, Supraclavicular, or Inguinal Adenopathy Neurological: - - No focal neurological deficits. Remains sedated on the ventilator. Vital Signs Temp Pulse Resp BP Pulse Ox 99.2 F H 107 H 14 111/63 92 06/28/20 04:00 06/28/20 04:00 06/28/20 04:00 06/28/20 04:00 06/28/20 04:00 Oxygen Flow Rate (L/min) 60 Oxygen Delivery Method Mechanical Ventilator Weight: 242 lb 15.19 oz Body Mass Index (BMI) 39.9 Intake and Output for Last 24 Hours 06/26/20 06/27/20 06/28/20 23:59 23:59 23:59 Intake Total 2941.99 / 2963.89 2566.25 / 2602.45 477.46 / 477.46 Output Total 936 / 936 940 / 940 245 / 245 Balance 2004. / 2026. 1626.25 / 1662.45 232.46 / 232.46 Labs (Last 48 Hours) 06/26/20 06/26/20 06/26/20 03:50 11:40 12:19 WBC RBC Hgb Hct MCV MCH MCHC RDW Std Deviation RDW Coeff of Ankit Plt Count MPV Immature Gran % (Auto) Neut % (Auto) Lymph % (Auto) [place] % (Auto) Eos % (Auto) Baso % (Auto) Absolute Neuts (auto) Absolute Lymphs (auto) Nucleated RBC % Differential Comment APTT 77.6 H Sodium Potassium Chloride Carbon Dioxide Anion Gap BUN Creatinine Estim Creat Clear Calc Est GFR (MDRD) Af Amer Est GFR (MDRD) Non-Af BUN/Creatinine Ratio Glucose Calcium Total Bilirubin AST ALT Alkaline Phosphatase Total Creatine Kinase 322 H Total Protein Albumin Globulin Albumin/Globulin Ratio Triglycerides 115 Random Vancomycin POC Glucose 160 H 06/26/20 06/26/20 06/27/20 18:31 19:10 00:02 WBC RBC Hgb Hct MCV MCH MCHC RDW Std Deviation RDW Coeff of Ankit Plt Count MPV Immature Gran % (Auto) Neut % (Auto) Lymph % (Auto) [place] % (Auto) Eos % (Auto) Baso % (Auto) Absolute Neuts (auto) Absolute Lymphs (auto) Nucleated RBC % Differential Comment APTT 48.0 H Sodium Potassium Chloride Carbon Dioxide Anion Gap BUN Creatinine Estim Creat Clear Calc Est GFR (MDRD) Af Amer Est GFR (MDRD) Non-Af BUN/Creatinine Ratio Glucose Calcium Total Bilirubin AST ALT Alkaline Phosphatase Total Creatine Kinase Total Protein Albumin Globulin Albumin/Globulin Ratio Triglycerides Random Vancomycin POC Glucose 162 H 135 H 06/27/20 06/27/20 06/27/20 02:15 05:00 05:00 WBC 18.5 H RBC 3.29 L Hgb 9.8 L Hct 32.7 L MCV 99.4 H MCH 29.8 MCHC 30.0 L RDW Std Deviation 51.8 H RDW Coeff of Ankit 14.3 Plt Count 340 MPV 10.6 Immature Gran % (Auto) 0.800 Neut % (Auto) 92.5 H Lymph % (Auto) 3.1 L [place] % (Auto) 3.5 Eos % (Auto) 0.0 Baso % (Auto) 0.1 Absolute Neuts (auto) 17.1 H Absolute Lymphs (auto) 0.57 L Nucleated RBC % 0 Differential Comment SCANNED APTT 55.7 H Sodium 142 Potassium 3.6 Chloride 103 Carbon Dioxide 32.0 Anion Gap 7 BUN 84 H Creatinine 3.06 H Estim Creat Clear Calc 14.98 Est GFR (MDRD) Af Amer 19 L Est GFR (MDRD) Non-Af 16 L BUN/Creatinine Ratio 27.5 H Glucose 122 H Calcium 8.7 Total Bilirubin 0.30 AST 45 H ALT 65 H Alkaline Phosphatase 74 Total Creatine Kinase Total Protein 6.4 Albumin 2.3 L Globulin 4.1 Albumin/Globulin Ratio 0.6 L Triglycerides Random Vancomycin POC Glucose 06/27/20 06/27/20 06/27/20 08:50 08:50 12:18 WBC RBC Hgb Hct MCV MCH MCHC RDW Std Deviation RDW Coeff of Ankit Plt Count MPV Immature Gran % (Auto) Neut % (Auto) Lymph % (Auto) [place] % (Auto) Eos % (Auto) Baso % (Auto) Absolute Neuts (auto) Absolute Lymphs (auto) Nucleated RBC % Differential Comment APTT 39.9 H Sodium Potassium Chloride Carbon Dioxide Anion Gap BUN Creatinine Estim Creat Clear Calc Est GFR (MDRD) Af Amer Est GFR (MDRD) Non-Af BUN/Creatinine Ratio Glucose Calcium Total Bilirubin AST ALT Alkaline Phosphatase Total Creatine Kinase Total Protein Albumin Globulin Albumin/Globulin Ratio Triglycerides Random Vancomycin 19.7 H POC Glucose 131 H 06/27/20 06/27/20 06/27/20 16:25 23:00 23:20 WBC RBC Hgb Hct MCV MCH MCHC RDW Std Deviation RDW Coeff of Ankit Plt Count MPV Immature Gran % (Auto) Neut % (Auto) Lymph % (Auto) [place] % (Auto) Eos % (Auto) Baso % (Auto) Absolute Neuts (auto) Absolute Lymphs (auto) Nucleated RBC % Differential Comment APTT 45.7 H Cancelled 46.9 H Sodium Potassium Chloride Carbon Dioxide Anion Gap BUN Creatinine Estim Creat Clear Calc Est GFR (MDRD) Af Amer Est GFR (MDRD) Non-Af BUN/Creatinine Ratio Glucose Calcium Total Bilirubin AST ALT Alkaline Phosphatase Total Creatine Kinase Total Protein Albumin Globulin Albumin/Globulin Ratio Triglycerides Random Vancomycin POC Glucose 06/27/20 23:49 WBC RBC Hgb Hct MCV MCH MCHC RDW Std Deviation RDW Coeff of Ankit Plt Count MPV Immature Gran % (Auto) Neut % (Auto) Lymph % (Auto) [place] % (Auto) Eos % (Auto) Baso % (Auto) Absolute Neuts (auto) Absolute Lymphs (auto) Nucleated RBC % Differential Comment APTT Sodium Potassium Chloride Carbon Dioxide Anion Gap BUN Creatinine Estim Creat Clear Calc Est GFR (MDRD) Af Amer Est GFR (MDRD) Non-Af BUN/Creatinine Ratio Glucose Calcium Total Bilirubin AST ALT Alkaline Phosphatase Total Creatine Kinase Total Protein Albumin Globulin Albumin/Globulin Ratio Triglycerides Random Vancomycin POC Glucose 130 H Microbiology 06/25/20 06:45 Blood Culture (Wb) - Anticubital Right Blood Culture - Preliminary No growth in 48 hours. 06/25/20 09:06 Blood Culture (Wb) - Central Line Blood Culture - Preliminary No growth in 48 hours. 06/25/20 09:15 Urine Catheter - Naqvi Urine Culture - Final Culture exhibits no growth. 06/24/20 22:00 Sputum, Induced/Lukens Gram Stain - Final 06/24/20 22:00 Sputum, Induced/Lukens Respiratory Culture - Final Presumptive C albicans Clinical Impression(s) from Imaging Studies Chest X-Ray 06/24/20 07:55 IMPRESSION: Cardiomegaly. Stable increased markings at the lung bases suggestive of bibasilar atelectasis and/or scarring. Moderate size hiatal hernia. Electronically Signed: Ivan Arce, at 8:36 EDT , Service support , Chest CTA 06/24/20 08:32 IMPRESSION: Bibasilar patchy infiltrates. Increased interstitial markings suggests a mild degree of CHF. Moderate sized hiatal hernia. Electronically Signed: Ivan Arce, at 9:17 EDT , Service support , Chest X-Ray 06/24/20 12:55 IMPRESSION: The tip of the endotracheal tube is at 3.9 cm proximal to the dianne. The orogastric tube lies to the left of the midline suggestive of placement within the left lower lobe bronchus. History congestion with small bilateral pleural effusions and bibasilar atelectasis more prominent on the left side. N.B. : The above information has been verbally conveyed by Ivan Arce to RIVAS CELIS on 06/24/2020 13:13:43 (ET). Electronically Signed: Ivan Arce, at 13:17 EDT , Service support , ADDENDUM: 06/24/20 1324 IMPRESSION: The tip of the endotracheal tube is at 3.9 cm proximal to the dianne. The orogastric tube lies to the left of the midline suggestive of placement within the left lower lobe bronchus. History congestion with small bilateral pleural effusions and bibasilar atelectasis more prominent on the left side. N.B. : The above information has been verbally conveyed by Ivan Arce to RIVAS CELIS on 06/24/2020 13:13:43 (ET). Electronically Signed: Ivan Arce, at 13:17 EDT , Service support , Chest X-Ray 06/24/20 16:07 IMPRESSION: 1. Endotracheal tube and enteric tube as described. 2. No other major interval change. Electronically Signed: Celestine Marcial DO at 16:51 EDT Tel [phone], Service support , KUB X-Ray 06/24/20 16:15 IMPRESSION: 1. OG tube as described. 2. No evidence for acute intra-abdominal process. 3. Bilateral pleural effusions. Electronically Signed: Celestine Marcial DO at 16:49 EDT Tel [phone], Service support , ADDENDUM: 06/24/20 1802 Chest X-Ray 06/26/20 06:11 IMPRESSION: Stable examination. Electronically Signed: Ivan Arce at 11:08 EDT , Service support , Medical Necessity - Tobacco Use Smoking Status: Former smoker Assessment/Plan All Active Problems (Last Reviewed 06/24/20 @ 12:[address] Armond Killian MD) Hypoxemia (Acute) Cardiopulmonary arrest (Acute) Ventricular tachycardia (Acute) Ventricular fibrillation (Acute) Myocardial infarction (Acute) Acute heart failure (Acute) Chronic combined systolic and diastolic CHF (congestive heart failure) (Acute) RECOMMENDATIONS: 1. Continue to wean FiO2 and PEEP to maintain oxygen saturations at or above 90%. 2. Continue scheduled bronchodilator therapy and steroids. 3. Minimize sedation with a goal to maintain a RASS of -1 to 1. Continue scheduled Seroquel twice daily today. 4. Continue appropriate GI prophylaxis. 5. Continue Lasix IV twice daily. 6. Continue tube feeds as tolerated. 7. Continue antimicrobials. IMPRESSIONS: 1. Acute on chronic combined respiratory failure The patient presented to the emergency department from the TCU, after she apparently experienced an aspiration event leading to respiratory decompensation and worsening hypoxemia. There is concern that this hypoxemia may have precipitated an acute coronary event. The patient did suffer from cardiopulmonary arrest in the emergency department and did require intubation. Her acid-base status has improved at this time. Plan to continue current supportive measures with assist control mode of mechanical ventilation, with plans to titrate FiO2 and PEEP to maintain oxygen saturations at or above 90%. Over concerns for aspiration, the patient will be continued empirically on antimicrobials. The patient will also be continued on scheduled bronchodilator therapy and steroids, over concerns for underlying COPD. 2. Status post cardiopulmonary arrest Clinical concern that hypoxemia may have precipitated cardiac decompensation. Cardiology is currently following to assist with management. At this time, we will plan to continue current supportive measures. The patient may require eventual cardiac catheterization, once medically stabilized. 3. Encephalopathy Improved. Although there was initial concern for possible anoxic brain injury, the patient has improved from a mentation standpoint. Plan to continue to minimize sedation as tolerated with a goal to maintain a RASS of -1 to 1. 4. Acute kidney injury Improving. Suspect a component of ischemic ATN in the setting of cardiopulmonary arrest. Continue to monitor urine output for now. No current indication for renal replacement therapy. Nephrology is currently following. 5. History of heart failure with preserved ejection fraction/paroxysmal atrial fibrillation Continue current supportive measures with additional medical intervention per cardiology recommendations. 6. Chronic pain syndrome/morbid obesity/hypertension/depression/anxiety/questionable COPD Complicates care, management, recovery and prognosis. Continue scheduled bronchodilator therapy. CODE status: Discussed CODE status at length including difference between FULL code, DNR-CCA and DNR-CC status. Following discussions about the differences in these status, the patient's daughter requested DNR-CCA CODE STATUS. TIME: 34 minutes of critical care time, independent of procedures, was spent addressing the patient's acute on chronic combined respiratory failure, status post cardiopulmonary arrest, encephalopathy, history of heart failure, acute kidney injury, review of all data and collaboration with the care team. ([id number]) [id number] Critical care first hour
[2020-06-28 06:34] LABS: Absolute Lymphocyte Count 0.94 X10^3/uL (0.83-4.51); Absolute Neutrophil Count 15.9 X10^3/uL (2.0-7.7); Basophil# 0.01 X10^3/uL; Basophil% 0.1 % (0-1); Eosinophil# 0.01 X10^3/uL; Eosinophils% 0.1 % (0-5); Hematocrit 30.9 % (37-47); Hemoglobin 9.3 g/dL (12.0-15.0); Lymphocyte # 0.94 X10^3/ul (4.0); Lymphocyte % 5.1 % (19-41); Mean Corp Hgb Conc 30.1 g/dL (32-36); Mean Corpuscular Hgb 30.2 pg (27.0-32.0); Mean Corpuscular Volume 100.3 fL (81-99); Mean Platelet Vol. 10.5 fl (6.2-12.0); Monocyte% 7.1 % (0-10); NRBC Flagged by Analyzer 0 % (0-5); Neutrophil # 15.88 X10^3/uL (2.7-7.7); Neutrophil % 86.1 % (47-70); Platelet Count 365 K/mm3 (150-450); RBC Distribution Width CV 14.6 % (11.6-14.6); RBC Distribution Width SD 52.7 fl (35.1-43.9); Red Blood Count 3.08 M/mm3 (4.2-5.4); White Blood Count 18.4 K/mm3 (4.4-11.0)
[2020-06-28 06:50] LABS: Partial Thromboplast Time 55.4 Seconds (24.1-36.2)
[2020-06-28 07:43] LABS: Anion Gap 7 (5-15); BUN 107 mg/dL (7-18); BUN/Creat Ratio 35.3 RATIO (10-20); Calcium,Total 8.4 mg/dL (8.5-10.1); Chloride 103 mmol/L (98-107); Creatinine, Serum 3.03 mg/dL (0.55-1.02); EST Glomerular Filtration Rate 16 mL/min (>60); Est Glom Filt Rate - Afr Amer 20 mL/min (>60); Estimated Creatinine Clearance 15.13 ml/min; Glucose 105 mg/dL (74-106); Magnesium 2.5 mg/dL (1.6-2.6); Potassium 3.9 mmol/L (3.5-5.1); Sodium Level 143 mmol/L (136-145)
[2020-06-28] MEDS: Chlorhexidine 15 ML PO ×2 (08:00→21:25)
[2020-06-28] MEDS: Juven (unflavored) Packet 1 PACKET NG ×2 (08:00→17:11)
[2020-06-28] MEDS: Famotidine 20 MG Tablet NG (08:01)
[2020-06-28] MEDS: Polyethylene Glycol 3350 17 GM PACKET NG (08:01)
[2020-06-28] MEDS: QUEtiapine 25 MG Tablet 50 MG PO ×2 (08:01→21:25)
[2020-06-28] MEDS: Furosemide 40 MG/4 ML Vial IV ×2 (08:01→17:13)
[2020-06-28] MEDS: Senna/Docusate Sodium 1 Tablet 2 TABLET NG (08:02)
[2020-06-28] MEDS: Aspirin 81 MG TAB.CHEW NG (08:02)
[2020-06-28] MEDS: predniSONE 20 MG Tablet 40 MG NG (08:02)
[2020-06-28] MEDS: HEPARIN/D5w 25,000 UNITS 25,000 UNITS/250 ML IV.SOLN. 13 UNITS IV (08:40)
--- NOTE | 2020-06-28 08:46 | PCM.PN.CARD ---
Subjectve: The patient remains in the ICU. She remains mechanically intubated/ventilated. Objective: Vital Signs Temp Pulse Resp BP Pulse Ox 99.3 F H 99 14 107/59 L 96 06/28/20 07:00 06/28/20 07:00 06/28/20 07:00 06/28/20 07:00 06/28/20 07:00 Oxygen Flow Rate (L/min) 60 Oxygen Delivery Method Mechanical Ventilator Weight: 243 lb 6.245 oz Body Mass Index (BMI) 39.9 Intake and Output for Last 24 Hours 06/26/20 06/27/20 06/28/20 23:59 23:59 23:59 Intake Total 2941.99 / 2963.89 2566.25 / 2602.45 744.31 / 744.31 Output Total 936 / 936 940 / 940 345 / 345 Balance 2004. / 2026. 1626.25 / 1662.45 399.31 / 399.31 Lungs: - - Disseminated upper airway sounds Cardiovascular: Regular Rhythm, Normal S1, Normal S2 Abdomen: Bowel Sounds Present, Soft Extremities: No edema, - - Right foot: Positive Chon wrap 06/27/20 08:50: APTT 39.9 H 06/27/20 16:25: APTT 45.7 H 06/27/20 23:00: APTT Cancelled 06/27/20 23:20: APTT 46.9 H 06/28/20 06:25: Sodium 143, Potassium 3.9, Chloride 103, Carbon Dioxide 33.0 H, Anion Gap 7, BUN 107 H*, Creatinine 3.03 H, Est GFR (MDRD) Af Amer 20 L, Est GFR (MDRD) Non-Af 16 L, BUN/Creatinine Ratio 35.3 H, Glucose 105, Calcium 8.4 L, Magnesium 2.5 06/28/20 06:25: APTT 55.4 H 06/28/20 06:25: WBC 18.4 H, RBC 3.08 L, Hgb 9.3 L, Hct 30.9 L, MCV 100.3 H, MCH 30.2, MCHC 30.1 L, Plt Count 365, MPV 10.5, Immature Gran % (Auto) 1.500 H, Neut % (Auto) 86.1 H, Lymph % (Auto) 5.1 L, [place] % (Auto) 7.1, Eos % (Auto) 0.1, Baso % (Auto) 0.1, Absolute Neuts (auto) 15.9 H, Nucleated RBC % 0 Rhythm: Sinus rhythm/sinus tachycardia Medical Necessity - Tobacco Use Smoking Status: Former smoker Assessment/Plan 1. Acute cardiopulmonary arrest The patient experienced an acute cardiopulmonary arrest. There is concerns as to whether or not this may have been initiated by aspiration pneumonia and hypoxemia. According to the medical records available for review this arrest was a prolonged event. She was evaluated by interventional cardiology at the time who did not recommend urgent/emergent diagnostic cardiac catheterization. This was pending the outcome of her cardiopulmonary arrest, neurologic status, multiple comorbidities, etc. The patient has been evaluated by [facility] cardiology in the past. The information obtained is as noted in her previous cardiology progress note. At the present time the patient is in the ICU. She remains mechanically intubated and ventilated. She is going to continue supportive care at this time. Depending upon the outcome of her multiple medical issues she can be considered for future evaluation in the cardiac catheterization laboratory. 2. Paroxysmal atrial fibrillation/ventricular tachycardia The patient has, per previous medical records from 2018, reports of paroxysmal atrial fibrillation as well as paroxysmal ventricular tachycardia. She has been evaluated for these issues at [facility]. It appears she was treated medically and underwent EPS/RFA of PVCs. At the moment she will continue to have her rate and rhythm monitored. An attempt will be made to initiate low-dose beta-bairon therapy. 3. CHF: Acute systolic She has a history of CHF. In the past this was reported as combined systolic and diastolic. There are concerns at this time she may have experienced, based on her event, an episode of acute systolic CHF. She remains in the ICU mechanically intubated and ventilated. She will continue to be followed. She will continue medical management as she is able to. 4. Hypotension Her blood pressure appears to be somewhat improved at this time. She is continuing evaluation care per pulmonology/critical care medicine. 5. COPD The patient has a history of COPD. She will need to continue evaluation care per internal medicine and pulmonology. 7. Obstructive sleep apnea The patient has per previous records a history of obstructive sleep apnea for which she has been reported is noncompliant with follow-up and care. She will need continued valuation care by her primary care physicians. 8. Obesity The patient has been reported as being obese in the past and currently. She apparently has been counseled in the past regarding diet and activity, etc., to try and bring her weight under better control. 9. Renal insufficiency Her creatinine has improved somewhat although remains elevated. Overall, at the present time, the patient will continue in the ICU. She will continue supportive care. Depending upon the outcome of her multiple comorbidities consideration will be given as to whether or not she is a candidate for further evaluation such as diagnostic cardiac catheterization, however, there is concern at this time based upon her marked renal insufficiency with the possibility of additional IV contrast related nephropathy. This note was generated using a voice recognition system and there may be incorrect words, spelling or punctuation that were not noted when reviewing the office note prior to saving.
--- NOTE | 2020-06-28 09:28 | PCM.PROGNOTE ---
Patient Problems: Active and Suspected Problems (Last Reviewed 06/24/20 @ 12:[address] Armond Killian MD) Hypoxemia (Acute) Cardiopulmonary arrest (Acute) Ventricular tachycardia (Acute) Ventricular fibrillation (Acute) Myocardial infarction (Acute) Acute heart failure (Acute) Chronic combined systolic and diastolic CHF (congestive heart failure) (Acute) Subjective: Intubated and sedated. FiO2 was 80%. No issues overnight. - Physical Exam Vitals/I&O's: Vital Signs Temp Pulse Resp BP Pulse Ox 99.3 F H 99 14 107/59 L 96 06/28/20 07:00 06/28/20 07:00 06/28/20 07:00 06/28/20 07:00 06/28/20 07:00 Oxygen Flow Rate (L/min) 60 Oxygen Delivery Method Mechanical Ventilator Weight: 243 lb 6.245 oz Body Mass Index (BMI) 39.9 Intake and Output for Last 24 Hours 06/26/20 06/27/20 06/28/20 23:59 23:59 23:59 Intake Total 2941.99 / 2963.89 2566.25 / 2602.45 744.31 / 744.31 Output Total 936 / 936 940 / 940 345 / 345 Balance / 2026. 1626.25 / 1662.45 399.31 / 399.31 General: - - Intubated and sedated HEENT: Atraumatic, PERRLA, Normocephalic Oral: Moist Mucosa Neck: Supple, No JVD Lungs: Clear to auscultation, Normal air movement, No rhonchi, No wheeze, No rales, Diminished Cardiovascular: Regular Rhythm, Normal S1, Normal S2, No murmurs, Tachycardic Abdomen: Soft, Non-Distended, No Hepato-splenomegaly Extremities: No edema, Capillary Refill Less than 3 Seconds Skin: No rashes, No breakdown Neurological: - - Intubated and sedated Psych/Mental Status: - - Intubated and sedated Microbiology Past 72 Hours 06/25/20 06:45 Blood Culture (Wb) - Anticubital Right Blood Culture - Preliminary No growth in 48 hours. 06/25/20 09:06 Blood Culture (Wb) - Central Line Blood Culture - Preliminary No growth in 48 hours. 06/25/20 09:15 Urine Catheter - Naqvi Urine Culture - Final Culture exhibits no growth. 06/24/20 22:00 Sputum, Induced/Lukens Gram Stain - Final 06/24/20 22:00 Sputum, Induced/Lukens Respiratory Culture - Final Presumptive C albicans 06/25/20 09:15 Urine Catheter - Naqvi Streptococcus pneumoniae Antigen (M - Final 06/25/20 09:15 Urine Catheter - Naqvi Legionella Antigen - Final 06/25/20 07:35 Mucosa - Nose Respiratory Panel (PCR) - Final Laboratory Results 06/27/20 08:50: Random Vancomycin 19.7 H 06/27/20 12:18: POC Glucose 131 H 06/27/20 16:25: APTT 45.7 H 06/27/20 23:00: APTT Cancelled 06/27/20 23:20: APTT 46.9 H 06/27/20 23:49: POC Glucose 130 H 06/28/20 06:25: Sodium 143, Potassium 3.9, Chloride 103, Carbon Dioxide 33.0 H, Anion Gap 7, BUN 107 H*, Creatinine 3.03 H, Estim Creat Clear Calc 15.13, Est GFR (MDRD) Af Amer 20 L, Est GFR (MDRD) Non-Af 16 L, BUN/Creatinine Ratio 35.3 H, Glucose 105, Calcium 8.4 L, Magnesium 2.5 06/28/20 06:25: APTT 55.4 H 06/28/20 06:25: WBC 18.4 H, RBC 3.08 L, Hgb 9.3 L, Hct 30.9 L, MCV 100.3 H, MCH 30.2, MCHC 30.1 L, RDW Std Deviation 52.7 H, RDW Coeff of Ankit 14.6, Plt Count 365, MPV 10.5, Immature Gran % (Auto) 1.500 H, Neut % (Auto) 86.1 H, Lymph % (Auto) 5.1 L, [place] % (Auto) 7.1, Eos % (Auto) 0.1, Baso % (Auto) 0.1, Absolute Neuts (auto) 15.9 H, Absolute Lymphs (auto) 0.94, Nucleated RBC % 0 Current Medications Acetaminophen (Acetaminophen 650 Mg/20 Ml Udc) 650 mg NG Q4H PRN PRN PRN Reason: temp>101.0 Last Admin: 06/25/20 17:52 Dose: 650 mg Documented by: Albuterol Sulfate (Albuterol 2.5 Mg/3 Ml Vial.Neb.) 2.5 mg INHALATION Q2H PRN PRN PRN Reason: SOB/Wheezing Albuterol/Ipratropium (Ipratropium/Albuterol Sulfate 3 Ml Ampul.Neb) 3 ml INHALATION Q4H.RT [facility] Last Admin: 06/28/20 07:09 Dose: 3 ml Documented by: Aspirin (Aspirin 81 Mg Tab.Chew) 81 mg NG DAILY@0800 [facility] Last Admin: 06/28/20 08:02 Dose: 81 mg Documented by: Chlorhexidine Gluconate (Chlorhexidine 15 Ml) 15 ml PO BID [facility] Last Admin: 06/28/20 08:00 Dose: 15 ml Documented by: Dextrose (Dextrose 50%-Water 25 Gm/50 Ml Disp.Syrin) 0 gm IV X1 PRN; Protocol PRN Reason: Hypoglycemia Famotidine (Famotidine 20 Mg Tablet) 20 mg NG DAILY [facility] Last Admin: 06/28/20 08:01 Dose: 20 mg Documented by: Furosemide (Furosemide 40 Mg/4 Ml Vial) 40 mg IV BID@1000,1800 [facility] Last Admin: 06/28/20 08:01 Dose: 40 mg Documented by: Glucagon (Glucagon 1 Mg/Ml Syringe) 1 mg IM .X1 PRN PRN Reason: Hypoglycemia Heparin Sodium (Beef Lung) (Heparin Pf Lock 10 Units/Ml 50 Units/5 Ml Syringe) 50 units IV UD PRN PRN Reason: PICC Line Heparin Flush Heparin Sodium (Porcine) (Heparin Injection (Vial) 5,000 Unit/Ml Vial) 0 unit IV UD PRN; Protocol PRN Reason: dose adjustment Last Admin: 06/27/20 10:08 Dose: 1,000 unit Documented by: Heparin Sodium/Dextrose () 25,000 units in 250 mls @ 10 mls/hr IV .Q25H [facility]; Protocol Last Admin: 06/28/20 08:40 Dose: 1,300 units/hr, 13 mls/hr Documented by: Sodium Chloride () 250 mls @ 15 mls/hr IV .[id number] PRN PRN Reason: Saline Flush Last Admin: 06/27/20 20:38 Dose: 15 mls/hr Documented by: Sodium Chloride () 250 mls @ 15 mls/hr IV .[id number] PRN PRN Reason: Additional IVPB Infusion Fentanyl Citrate 1,000 mcg/ (Sodium Chloride) 100 mls @ 5 mls/hr CONT INF .Q20H [facility]; Protocol Last Admin: 06/28/20 08:39 Dose: 200 mcg/hr, 20 mls/hr Documented by: Enteral Nutritional Formula (Vital High Protein) 1,000 mls @ 60 mls/hr GT .[id number] [facility] Last Admin: 06/28/20 07:37 Dose: Not Given Documented by: Vancomycin IV Pharmacy to Dose (1 ea/ Sodium Chloride) 500 mls @ 250 mls/hr IV PRN PRN; Protocol PRN Reason: Rx to Dose Ampicillin Sodium/Sulbactam (Sodium 3 gm/ Sodium Chloride) 112 mls @ 150 mls/hr IV Q12 [facility] Last Infusion: 06/27/20 22:30 Dose: Infused Documented by: Propofol (Diprivan) 1,000 mg in 100 mls @ 6.474 mls/hr CONT INF .Q12H [facility]; Protocol Last Admin: 06/28/20 07:59 Dose: 25 mcg/kg/min, 16.2 mls/hr Documented by: Insulin Human Lispro (Insulin Lispro 100 Unit/Ml Insuln.Pen) 0 unit SC Q6 [facility]; Protocol Last Admin: 06/28/20 07:37 Dose: Not Given Documented by: L-Arginine/L-Glutamine/Calcium HMB (Rosendo (Unflavored) Packet) 1 packet NG BIDCM [facility] Last Admin: 06/28/20 08:00 Dose: 1 packet Documented by: Metoprolol Tartrate (Metoprolol Tartrate 25 Mg Tablet) 12.5 mg PO BID [facility] Polyethylene Glycol (Polyethylene Glycol 3350 17 Gm Packet) 17 gm NG DAILY [facility] Last Admin: 06/28/20 08:01 Dose: 17 gm Documented by: Prednisone (Prednisone 20 Mg Tablet) 40 mg NG DAILY@0800 [facility] Last Admin: 06/28/20 08:02 Dose: 40 mg Documented by: Quetiapine Fumarate (Quetiapine 25 Mg Tablet) 50 mg PO BID [facility] Last Admin: 06/28/20 08:01 Dose: 50 mg Documented by: Senna/Docusate Sodium (Senna/Docusate Sodium 1 Tablet) 2 tablet NG BID [facility] Last Admin: 06/28/20 08:02 Dose: 2 tablet Documented by: Sodium Chloride (0.9% Saline Lock 10 Ml Syringe) 10 - 40 ml IV UD PRN PRN Reason: Open End PICC Flush Last Admin: 06/27/20 06:27 Dose: 40 ml Documented by: Sodium Chloride (0.9 % Nacl (Sterile) Posiflush 10 Ml) 10 - 40 ml IV UD PRN PRN Reason: Port access or dressing change Sodium Chloride (0.9% Saline Lock 10 Ml Syringe) 10 - 40 ml IV UD PRN PRN Reason: SALINE FLUSH Medical Necessity - Tobacco Use Smoking Status: Former smoker Assessment/Plan All Active Problems (Last Reviewed 06/24/20 @ 12:[address] Armond Killian MD) Hypoxemia (Acute) Cardiopulmonary arrest (Acute) Ventricular tachycardia (Acute) Ventricular fibrillation (Acute) Myocardial infarction (Acute) Acute heart failure (Acute) Chronic combined systolic and diastolic CHF (congestive heart failure) (Acute) 1. Cardiopulmonary arrest secondary to acute AR secondary to acute on chronic hypoxic respiratory failure secondary to aspiration pneumonia/acute metabolic encephalopathy/EMMANUEL likely ATN -Remains intubated and sedated, FiO2 requirement of 80% -Continue with Unasyn -Continue with prednisone for possible history of COPD -Appreciate cardiology input, continue with heparin -EF of 45% with mild segmental systolic dysfunction -Over 4 L positive in her fluid balance, will continue with Lasix -Renal function peaked at 3.24, it is slightly better today at 3.03 however her BUN is 107. She is making urine, appreciate nephrology systems 2. Acute on chronic combined CHF/paroxysmal A. fib/HTN/morbid obesity -Continue with IV Lasix, appreciate cardiology's assistance -EF of 45% -We will continue with her rate control medication metoprolol -BMI of 40.6 we will discuss weight reduction following extubation 3. History of osteomyelitis -Patient amputation of her right second toe on 06/07/[address] Montilla -She was discharged to TCU on Rocephin, continue with Unasyn for now for her MSSA 4. Depression/anxiety - we will hold her home medications pending extubation -Continue with Seroquel DVT: Heparin drip Inpatient E&M: [id number] [facility] Hosp L2
[2020-06-28] MEDS: Vital High Protein 1,000 ML 60 ML GT ×3 (10:40→21:59)
[2020-06-28 12:52] LABS: Partial Thromboplast Time 52.8 Seconds (24.1-36.2)
[2020-06-28 13:21] LABS: Bedside Glucose 150 mg/dL (70-110)
[2020-06-28] MEDS: Metoprolol Tartrate 25 MG Tablet 12.5 MG PO ×2 (13:22→21:27)
[2020-06-28 13:48] LABS: Vancomycin, Random Level 30.2 ug/mL (0.0-15.0)
--- NOTE | 2020-06-28 14:07 | PCM.RX.CS ---
Consult Pharmacy has been consulted to manage selected antiobiotic: Vancomycin Type of Consult: Follow-up Suspected Infection: Pneumonia Prior Doses of Antibiotics Received/Current Regimen: Received 1750mg iv x 1 on . Labs: Sodium 143 mmol/L (136-145) 06/28/20 06:25 Potassium 3.9 mmol/L (3.5-5.1) 06/28/20 06:25 Chloride 103 mmol/L (98-107) 06/28/20 06:25 Carbon Dioxide 33.0 mmol/L (21.0-32.0) H 06/28/20 06:25 Anion Gap 7 (5-15) 06/28/20 06:25 BUN 107 mg/dL (7-18) H* 06/28/20 06:25 Creatinine 3.03 mg/dL (0.55-1.02) H 06/28/20 06:25 Est GFR (MDRD) Af Amer 20 mL/min (>60) L 06/28/20 06:25 Est GFR (MDRD) Non-Af 16 mL/min (>60) L 06/28/20 06:25 BUN/Creatinine Ratio 35.3 RATIO (10-20) H 06/28/20 06:25 Glucose 105 mg/dL (74-106) 06/28/20 06:25 Random Vancomycin 30.2 ug/mL (0.0-15.0) H 06/28/20 12:30 Microbiology: Microbiology 06/25/20 06:45 Blood Culture (Wb) - Anticubital Right Blood Culture - Preliminary No growth in 48 hours. 06/25/20 09:06 Blood Culture (Wb) - Central Line Blood Culture - Preliminary No growth in 48 hours. 06/25/20 09:15 Urine Catheter - Naqvi Urine Culture - Final Culture exhibits no growth. 06/24/20 22:00 Sputum, Induced/Lukens Gram Stain - Final 06/24/20 22:00 Sputum, Induced/Lukens Respiratory Culture - Final Presumptive C albicans 06/25/20 09:15 Urine Catheter - Naqvi Streptococcus pneumoniae Antigen (M - Final 06/25/20 09:15 Urine Catheter - Naqvi Legionella Antigen - Final 06/25/20 07:35 Mucosa - Nose Respiratory Panel (PCR) - Final Weight used for dosin kg Estimated Creatinine Clearance: ~15ml/min Goal Trough: 15-20 mcg/mL Pharmacy Plan for Drug Dosing: Random level today 26hrs post dose was 30.2. No further doses to be given at this time. Another random level in 24hrs on 06.29.20 has been ordered. Further dosing will be reviewed when level <20. Pharmacy Service will continue to monitor and adjust dosing as required. Follow-Up Labs: Trough Vancomycin - random level 06.29.20 @1200
[2020-06-28 17:10] LABS: Bedside Glucose 124 mg/dL (70-110)
--- NOTE | 2020-06-28 19:26 | PCM.PN.REN ---
Patient Problems: Active and Suspected Problems (Last Reviewed 06/24/20 @ 12:[address] Armond Killian MD) Hypoxemia (Acute) Cardiopulmonary arrest (Acute) Ventricular tachycardia (Acute) Ventricular fibrillation (Acute) Myocardial infarction (Acute) Acute heart failure (Acute) Chronic combined systolic and diastolic CHF (congestive heart failure) (Acute) Subjective: Following for EMMANUEL. Pt is intubated. cannot do ROS. - Physical Exam Vitals/I&O's: Vital Signs Temp Pulse Resp BP Pulse Ox 99.4 F H 90 14 113/68 88 06/28/20 18:00 06/28/20 18:15 06/28/20 18:00 06/28/20 18:00 06/28/20 18:15 Oxygen Flow Rate (L/min) 60 Oxygen Delivery Method Mechanical Ventilator Weight: 110.4 kg Body Mass Index (BMI) 39.9 Intake and Output for Last 24 Hours 06/26/20 06/27/20 06/28/20 23:59 23:59 23:59 Intake Total 2941.99 / 2963.89 2566.25 / 2602.45 1568.39 / 1568.39 Output Total 936 / 936 940 / 940 1495 / 1495 Balance 2005.99 / 2026.89 1626.25 / 1662.45 73.39 / 73.39 General: No apparent distress HEENT: Atraumatic Oral: - - intubated Neck: Supple Lungs: No rales, Wheezes - expiratory Cardiovascular: Regular rate, Regular Rhythm, No murmurs Abdomen: Bowel Sounds Present, Soft, Non Tender Extremities: No edema Microbiology Past 72 Hours 06/25/20 06:45 Blood Culture (Wb) - Anticubital Right Blood Culture - Preliminary No growth in 48 hours. 06/25/20 09:06 Blood Culture (Wb) - Central Line Blood Culture - Preliminary No growth in 48 hours. 06/25/20 09:15 Urine Catheter - Naqvi Urine Culture - Final Culture exhibits no growth. 06/24/20 22:00 Sputum, Induced/Lukens Gram Stain - Final 06/24/20 22:00 Sputum, Induced/Lukens Respiratory Culture - Final Presumptive C albicans Laboratory Results 06/27/20 23:00: APTT Cancelled 06/27/20 23:20: APTT 46.9 H 06/27/20 23:49: POC Glucose 130 H 06/28/20 06:25: Sodium 143, Potassium 3.9, Chloride 103, Carbon Dioxide 33.0 H, Anion Gap 7, BUN 107 H*, Creatinine 3.03 H, Estim Creat Clear Calc 15.13, Est GFR (MDRD) Af Amer 20 L, Est GFR (MDRD) Non-Af 16 L, BUN/Creatinine Ratio 35.3 H, Glucose 105, Calcium 8.4 L, Magnesium 2.5 06/28/20 06:25: APTT 55.4 H 06/28/20 06:25: WBC 18.4 H, RBC 3.08 L, Hgb 9.3 L, Hct 30.9 L, MCV 100.3 H, MCH 30.2, MCHC 30.1 L, RDW Std Deviation 52.7 H, RDW Coeff of Ankit 14.6, Plt Count 365, MPV 10.5, Immature Gran % (Auto) 1.500 H, Neut % (Auto) 86.1 H, Lymph % (Auto) 5.1 L, [place] % (Auto) 7.1, Eos % (Auto) 0.1, Baso % (Auto) 0.1, Absolute Neuts (auto) 15.9 H, Absolute Lymphs (auto) 0.94, Nucleated RBC % 0 06/28/20 12:30: Random Vancomycin 30.2 H 06/28/20 12:30: APTT 52.8 H 06/28/20 13:14: POC Glucose 150 H 06/28/20 17:06: POC Glucose 124 H Current Medications Acetaminophen (Acetaminophen 650 Mg/20 Ml Udc) 650 mg NG Q4H PRN PRN PRN Reason: temp>101.0 Last Admin: 06/25/20 17:52 Dose: 650 mg Documented by: Albuterol Sulfate (Albuterol 2.5 Mg/3 Ml Vial.Neb.) 2.5 mg INHALATION Q2H PRN PRN PRN Reason: SOB/Wheezing Albuterol/Ipratropium (Ipratropium/Albuterol Sulfate 3 Ml Ampul.Neb) 3 ml INHALATION Q4H.RT KIM Last Admin: 06/28/20 18:29 Dose: 3 ml Documented by: Aspirin (Aspirin 81 Mg Tab.Chew) 81 mg NG DAILY@0800 [facility] [place] Last Admin: 06/28/20 08:02 Dose: 81 mg Documented by: Chlorhexidine Gluconate (Chlorhexidine 15 Ml) 15 ml PO BID [facility] [place] Last Admin: 06/28/20 08:00 Dose: 15 ml Documented by: Dextrose (Dextrose 50%-Water 25 Gm/50 Ml Disp.Syrin) 0 gm IV X1 PRN; Protocol PRN Reason: Hypoglycemia Famotidine (Famotidine 20 Mg Tablet) 20 mg NG DAILY [facility] [place] Last Admin: 06/28/20 08:01 Dose: 20 mg Documented by: Furosemide (Furosemide 40 Mg/4 Ml Vial) 40 mg IV BID@1000,1800 [facility] [place] Last Admin: 06/28/20 17:13 Dose: 40 mg Documented by: Glucagon (Glucagon 1 Mg/Ml Syringe) 1 mg IM .X1 PRN PRN Reason: Hypoglycemia Heparin Sodium (Beef Lung) (Heparin Pf Lock 10 Units/Ml 50 Units/5 Ml Syringe) 50 units IV UD PRN PRN Reason: PICC Line Heparin Flush Heparin Sodium (Porcine) (Heparin Injection (Vial) 5,000 Unit/Ml Vial) 0 unit IV UD PRN; Protocol PRN Reason: dose adjustment Last Admin: 06/27/20 10:08 Dose: 1,000 unit Documented by: Heparin Sodium/Dextrose () 25,000 units in 250 mls @ 10 mls/hr IV .Q25H [facility] [place]; Protocol Last Titration: 06/28/20 15:10 Dose: 1,400 units/hr, 14 mls/hr Documented by: Sodium Chloride () 250 mls @ 15 mls/hr IV .[id number] PRN PRN Reason: Saline Flush Last Infusion: 06/28/20 15:10 Dose: 15 mls/hr Documented by: Sodium Chloride () 250 mls @ 15 mls/hr IV .[id number] PRN PRN Reason: Additional IVPB Infusion Fentanyl Citrate 1,000 mcg/ (Sodium Chloride) 100 mls @ 5 mls/hr CONT INF .Q20H [facility] [place]; Protocol Last Admin: 06/28/20 18:57 Dose: 200 mcg/hr, 20 mls/hr Documented by: Enteral Nutritional Formula (Vital High Protein) 1,000 mls @ 60 mls/hr GT .[id number] [facility] [place] Last Admin: 06/28/20 17:11 Dose: 60 mls/hr Documented by: Ampicillin Sodium/Sulbactam (Sodium 3 gm/ Sodium Chloride) 112 mls @ 150 mls/hr IV Q12 [facility] [place] Last Infusion: 06/28/20 14:20 Dose: Infused Documented by: Propofol (Diprivan) 1,000 mg in 100 mls @ 6.474 mls/hr CONT INF .Q12H [facility] [place]; Protocol Last Admin: 06/28/20 18:57 Dose: 25 mcg/kg/min, 16.2 mls/hr Documented by: Insulin Human Lispro (Insulin Lispro 100 Unit/Ml Insuln.Pen) 0 unit SC Q6 [facility] [place]; Protocol Last Admin: 06/28/20 17:11 Dose: Not Given Documented by: L-Arginine/L-Glutamine/Calcium HMB (Rosendo (Unflavored) Packet) 1 packet NG BIDCM [facility] [place] Last Admin: 06/28/20 17:11 Dose: 1 packet Documented by: Metoprolol Tartrate (Metoprolol Tartrate 25 Mg Tablet) 12.5 mg PO BID [facility] [place] Last Admin: 06/28/20 13:22 Dose: 12.5 mg Documented by: Polyethylene Glycol (Polyethylene Glycol 3350 17 Gm Packet) 17 gm NG DAILY [facility] [place] Last Admin: 06/28/20 08:01 Dose: 17 gm Documented by: Prednisone (Prednisone 20 Mg Tablet) 40 mg NG DAILY@0800 [facility] [place] Last Admin: 06/28/20 08:02 Dose: 40 mg Documented by: Quetiapine Fumarate (Quetiapine 25 Mg Tablet) 50 mg PO BID [facility] [place] Last Admin: 06/28/20 08:01 Dose: 50 mg Documented by: Senna/Docusate Sodium (Senna/Docusate Sodium 1 Tablet) 2 tablet NG BID [facility] [place] Last Admin: 06/28/20 08:02 Dose: 2 tablet Documented by: Sodium Chloride (0.9% Saline Lock 10 Ml Syringe) 10 - 40 ml IV UD PRN PRN Reason: Open End PICC Flush Last Admin: 06/27/20 06:27 Dose: 40 ml Documented by: Sodium Chloride (0.9 % Nacl (Sterile) Posiflush 10 Ml) 10 - 40 ml IV UD PRN PRN Reason: Port access or dressing change Sodium Chloride (0.9% Saline Lock 10 Ml Syringe) 10 - 40 ml IV UD PRN PRN Reason: SALINE FLUSH Medical Necessity - Tobacco Use Smoking Status: Former smoker Assessment/Plan All Active Problems (Last Reviewed 06/24/20 @ 12:[address] Armond Killian MD) Hypoxemia (Acute) Cardiopulmonary arrest (Acute) Ventricular tachycardia (Acute) Ventricular fibrillation (Acute) Myocardial infarction (Acute) Acute heart failure (Acute) Chronic combined systolic and diastolic CHF (congestive heart failure) (Acute) 1- EMMANUEL on CKD stage 3. Baseline SCr ~ 1.14 mg/dl EMMANUEL is likely ischemic ATN. SCr peaked at 3.2 mg/dL on 06/26/20. SCr is slightly better today Patient is non oliguric. No need for PRODUCT DESIGN SPECIALIST today. Ok to continue Lasix. Will continue to evaluate the need of PRODUCT DESIGN SPECIALIST daily. Keep MAP > 65. Medications reviewed. All are appropriately dosed for current CrCl. Monitor RFP and UOP. 2- S/P CPA with prolonged resuscitation Off pressor this morning. hemodynamically stable. 3- Acute IL . cardiology is following. Might need cardiac cath when she is more stable. 4- Acute hypoxic respiratory failure from aspiration and IL. Ok with diuresis. Abx treatment and vent support as per ICU team
[2020-06-28 22:03] LABS: Partial Thromboplast Time 67.3 Seconds (24.1-36.2)
[2020-06-28] MEDS: HEPARIN/D5w 25,000 UNITS 25,000 UNITS/250 ML IV.SOLN. 14 UNITS IV (23:27)
[2020-06-28 23:40] LABS: Bedside Glucose 110 mg/dL (70-110)
[2020-06-29] VITALS (39 sets, daily range): BP systolic 91–119; BP diastolic 48–72; PULSE 74–114; RESP 13–26; TEMP 37.2–38.3; O2SAT 90–96
[2020-06-29] MEDS: Propofol 10MG/Ml 1,000 MG/100 ML Bottle 16.2 MG CONT INF (00:27)
[2020-06-29] MEDS: Vital High Protein 1,000 ML 60 ML GT ×5 (02:00→19:48)
[2020-06-29] MEDS: Ipratropium/Albuterol Sulfate 3 ML AMPUL.NEB INHALATION ×6 (02:32→23:04)
[2020-06-29 03:48] LABS: Hematocrit 27.5 % (37-47); Hemoglobin 8.4 g/dL (12.0-15.0); Mean Corp Hgb Conc 30.5 g/dL (32-36); Mean Corpuscular Hgb 30.1 pg (27.0-32.0); Mean Corpuscular Volume 98.6 fL (81-99); Platelet Count 306 K/mm3 (150-450); RBC Distribution Width CV 14.6 % (11.6-14.6); Red Blood Count 2.79 M/mm3 (4.2-5.4); White Blood Count 15.3 K/mm3 (4.4-11.0)
--- NOTE | 2020-06-29 04:14 | CPS ---
Pt.'s FiO2 decreased to 75%
[2020-06-29 04:15] LABS: Partial Thromboplast Time 73.2 Seconds (24.1-36.2)
[2020-06-29 04:40] LABS: Anion Gap 5 (5-15); BUN 107 mg/dL (7-18); BUN/Creat Ratio 47.1 RATIO (10-20); Calcium,Total 8.5 mg/dL (8.5-10.1); Chloride 104 mmol/L (98-107); Creatinine, Serum 2.27 mg/dL (0.55-1.02); EST Glomerular Filtration Rate 23 mL/min (>60); Est Glom Filt Rate - Afr Amer 27 mL/min (>60); Glucose 92 mg/dL (74-106); Sodium Level 144 mmol/L (136-145)
--- NOTE | 2020-06-29 05:21 | PN_ITS ---
Subjective: The patient was seen and examined at the bedside this morning. Events from the last 24 hours have been reviewed. The patient is currently afebrile, hemodynamically stable and maintaining appropriate oxygen saturations on assist control mode of mechanical ventilation with an FiO2 requirement of 75%. Although the patient's creatinine is improving, her BUN remains significantly elevated. The patient was documented to be overall net -1.3 L yesterday. This now makes her overall net +2.4 L for the entire hospitalization. She remains on twice daily scheduled IV Lasix. Objective: The patient's most recent lab work, culture data and imaging studies have all been personally reviewed. Surface echocardiogram revealed mild segmental systolic dysfunction with an ejection fraction of 45%. Strep and urine Legionella antigens were negative. Respiratory viral panel was negative. Blood and urine cultures have demonstrated no growth to date. Sputum culture was positive for presumptive Luly albicans. General: - - Remains intubated, sedated and mechanically ventilated. No ventilator dyssynchrony. HEENT: Atraumatic, PERRLA, Normocephalic Oral: No Gingival or Mucosal Lesions/ Ulcerations, - - Endotracheal and OG tubes in place Neck: Supple, No Nodes, Trachea Midline Lungs: No rhonchi, No wheeze, No rales, Diminished Cardiovascular: Regular rate, Regular Rhythm Abdomen: Bowel Sounds Present, Soft, Non Tender, Obese Extremities: No clubbing, No cyanosis, Edema Skin: - - No significant change from previous Musculoskeletal: No Muscle Wasting Lymphatic: No Cervical, Supraclavicular, or Inguinal Adenopathy Neurological: - - No focal neurological deficits. Remains sedated on the ventilator. Vital Signs Temp Pulse Resp BP Pulse Ox 99.8 F H 97 15 100/55 L 92 06/29/20 05:00 06/29/20 05:00 06/29/20 05:00 06/29/20 05:00 06/29/20 05:00 Oxygen Flow Rate (L/min) 60 Oxygen Delivery Method Mechanical Ventilator Weight: 243 lb 6.245 oz Body Mass Index (BMI) 39.9 Intake and Output for Last 24 Hours 06/27/20 06/28/20 06/29/20 23:59 23:59 23:59 Intake Total 2566.25 / 2602.45 2369.22 / 2404.42 277.62 / 277.62 Output Total 940 / 940 3695 / 3695 550 / 550 Balance 1626.25 / 1662.45 -1325.78 / -1290.58 -272.38 / -272.38 Labs (Last 48 Hours) 06/27/20 06/27/20 06/27/20 05:00 05:00 08:50 WBC 18.5 H RBC 3.29 L Hgb 9.8 L Hct 32.7 L MCV 99.4 H MCH 29.8 MCHC 30.0 L RDW Std Deviation 51.8 H RDW Coeff of Ankit 14.3 Plt Count 340 MPV 10.6 Immature Gran % (Auto) 0.800 Neut % (Auto) 92.5 H Lymph % (Auto) 3.1 L [place] % (Auto) 3.5 Eos % (Auto) 0.0 Baso % (Auto) 0.1 Absolute Neuts (auto) 17.1 H Absolute Lymphs (auto) 0.57 L Nucleated RBC % 0 Differential Comment SCANNED APTT 39.9 H Sodium 142 Potassium 3.6 Chloride 103 Carbon Dioxide 32.0 Anion Gap 7 BUN 84 H Creatinine 3.06 H Estim Creat Clear Calc 14.98 Est GFR (MDRD) Af Amer 19 L Est GFR (MDRD) Non-Af 16 L BUN/Creatinine Ratio 27.5 H Glucose 122 H Calcium 8.7 Magnesium Total Bilirubin 0.30 AST 45 H ALT 65 H Alkaline Phosphatase 74 Total Protein 6.4 Albumin 2.3 L Globulin 4.1 Albumin/Globulin Ratio 0.6 L Random Vancomycin POC Glucose 06/27/20 06/27/20 06/27/20 08:50 12:18 16:25 WBC RBC Hgb Hct MCV MCH MCHC RDW Std Deviation RDW Coeff of Ankit Plt Count MPV Immature Gran % (Auto) Neut % (Auto) Lymph % (Auto) [place] % (Auto) Eos % (Auto) Baso % (Auto) Absolute Neuts (auto) Absolute Lymphs (auto) Nucleated RBC % Differential Comment APTT 45.7 H Sodium Potassium Chloride Carbon Dioxide Anion Gap BUN Creatinine Estim Creat Clear Calc Est GFR (MDRD) Af Amer Est GFR (MDRD) Non-Af BUN/Creatinine Ratio Glucose Calcium Magnesium Total Bilirubin AST ALT Alkaline Phosphatase Total Protein Albumin Globulin Albumin/Globulin Ratio Random Vancomycin 19.7 H POC Glucose 131 H 06/27/20 06/27/20 06/27/20 23:00 23:20 23:49 WBC RBC Hgb Hct MCV MCH MCHC RDW Std Deviation RDW Coeff of Ankit Plt Count MPV Immature Gran % (Auto) Neut % (Auto) Lymph % (Auto) [place] % (Auto) Eos % (Auto) Baso % (Auto) Absolute Neuts (auto) Absolute Lymphs (auto) Nucleated RBC % Differential Comment APTT Cancelled 46.9 H Sodium Potassium Chloride Carbon Dioxide Anion Gap BUN Creatinine Estim Creat Clear Calc Est GFR (MDRD) Af Amer Est GFR (MDRD) Non-Af BUN/Creatinine Ratio Glucose Calcium Magnesium Total Bilirubin AST ALT Alkaline Phosphatase Total Protein Albumin Globulin Albumin/Globulin Ratio Random Vancomycin POC Glucose 130 H 06/28/20 06/28/20 06/28/20 06:25 06:25 06:25 WBC 18.4 H RBC 3.08 L Hgb 9.3 L Hct 30.9 L MCV 100.3 H MCH 30.2 MCHC 30.1 L RDW Std Deviation 52.7 H RDW Coeff of Ankit 14.6 Plt Count 365 MPV 10.5 Immature Gran % (Auto) 1.500 H Neut % (Auto) 86.1 H Lymph % (Auto) 5.1 L [place] % (Auto) 7.1 Eos % (Auto) 0.1 Baso % (Auto) 0.1 Absolute Neuts (auto) 15.9 H Absolute Lymphs (auto) 0.94 Nucleated RBC % 0 Differential Comment APTT 55.4 H Sodium 143 Potassium 3.9 Chloride 103 Carbon Dioxide 33.0 H Anion Gap 7 BUN 107 H* Creatinine 3.03 H Estim Creat Clear Calc 15.13 Est GFR (MDRD) Af Amer 20 L Est GFR (MDRD) Non-Af 16 L BUN/Creatinine Ratio 35.3 H Glucose 105 Calcium 8.4 L Magnesium 2.5 Total Bilirubin AST ALT Alkaline Phosphatase Total Protein Albumin Globulin Albumin/Globulin Ratio Random Vancomycin POC Glucose 06/28/20 06/28/20 06/28/20 12:30 12:30 13:14 WBC RBC Hgb Hct MCV MCH MCHC RDW Std Deviation RDW Coeff of Ankit Plt Count MPV Immature Gran % (Auto) Neut % (Auto) Lymph % (Auto) [place] % (Auto) Eos % (Auto) Baso % (Auto) Absolute Neuts (auto) Absolute Lymphs (auto) Nucleated RBC % Differential Comment APTT 52.8 H Sodium Potassium Chloride Carbon Dioxide Anion Gap BUN Creatinine Estim Creat Clear Calc Est GFR (MDRD) Af Amer Est GFR (MDRD) Non-Af BUN/Creatinine Ratio Glucose Calcium Magnesium Total Bilirubin AST ALT Alkaline Phosphatase Total Protein Albumin Globulin Albumin/Globulin Ratio Random Vancomycin 30.2 H POC Glucose 150 H 06/28/20 06/28/20 06/28/20 17:06 21:30 23:35 WBC RBC Hgb Hct MCV MCH MCHC RDW Std Deviation RDW Coeff of Ankti Plt Count MPV Immature Gran % (Auto) Neut % (Auto) Lymph % (Auto) [place] % (Auto) Eos % (Auto) Baso % (Auto) Absolute Neuts (auto) Absolute Lymphs (auto) Nucleated RBC % Differential Comment APTT 67.3 H Sodium Potassium Chloride Carbon Dioxide Anion Gap BUN Creatinine Estim Creat Clear Calc Est GFR (MDRD) Af Amer Est GFR (MDRD) Non-Af BUN/Creatinine Ratio Glucose Calcium Magnesium Total Bilirubin AST ALT Alkaline Phosphatase Total Protein Albumin Globulin Albumin/Globulin Ratio Random Vancomycin POC Glucose 124 H 110 06/29/20 06/29/20 06/29/20 03:35 03:35 03:35 WBC 15.3 H RBC 2.79 L Hgb 8.4 L Hct 27.5 L MCV 98.6 MCH 30.1 MCHC 30.5 L RDW Std Deviation 53.0 H RDW Coeff of Ankit 14.6 Plt Count 306 MPV 10.0 Immature Gran % (Auto) Neut % (Auto) Lymph % (Auto) [place] % (Auto) Eos % (Auto) Baso % (Auto) Absolute Neuts (auto) Absolute Lymphs (auto) Nucleated RBC % Differential Comment APTT 73.2 H Sodium 144 Potassium 4.0 Chloride 104 Carbon Dioxide 35.0 H Anion Gap 5 BUN 107 H* Creatinine 2.27 H Estim Creat Clear Calc 20.20 Est GFR (MDRD) Af Amer 27 L Est GFR (MDRD) Non-Af 23 L BUN/Creatinine Ratio 47.1 H Glucose 92 Calcium 8.5 Magnesium Total Bilirubin AST ALT Alkaline Phosphatase Total Protein Albumin Globulin Albumin/Globulin Ratio Random Vancomycin POC Glucose Microbiology 06/25/20 06:45 Blood Culture (Wb) - Anticubital Right Blood Culture - Preliminary No growth in 48 hours. 06/25/20 09:06 Blood Culture (Wb) - Central Line Blood Culture - Preliminary No growth in 48 hours. 06/25/20 09:15 Urine Catheter - Naqvi Urine Culture - Final Culture exhibits no growth. Clinical Impression(s) from Imaging Studies Chest X-Ray 06/24/20 07:55 IMPRESSION: Cardiomegaly. Stable increased markings at the lung bases suggestive of bibasilar atelectasis and/or scarring. Moderate size hiatal hernia. Electronically Signed: Ivan Arce, at 8:36 EDT , Service support , Chest CTA 06/24/20 08:32 IMPRESSION: Bibasilar patchy infiltrates. Increased interstitial markings suggests a mild degree of CHF. Moderate sized hiatal hernia. Electronically Signed: Ivan Arce, at 9:17 EDT , Service support , Chest X-Ray 06/24/20 12:55 IMPRESSION: The tip of the endotracheal tube is at 3.9 cm proximal to the dianne. The orogastric tube lies to the left of the midline suggestive of placement within the left lower lobe bronchus. History congestion with small bilateral pleural effusions and bibasilar atelectasis more prominent on the left side. N.B. : The above information has been verbally conveyed by Ivan Arce to RIVAS CELIS on 06/24/2020 13:13:43 (ET). Electronically Signed: Ivan Arce, at 13:17 EDT , Service support , ADDENDUM: 06/24/20 1324 IMPRESSION: The tip of the endotracheal tube is at 3.9 cm proximal to the dianne. The orogastric tube lies to the left of the midline suggestive of placement within the left lower lobe bronchus. History congestion with small bilateral pleural effusions and bibasilar atelectasis more prominent on the left side. N.B. : The above information has been verbally conveyed by Ivan Arce to RIVAS CELIS on 06/24/2020 13:13:43 (ET). Electronically Signed: Ivan Arce, at 13:17 EDT , Service support , Chest X-Ray 06/24/20 16:07 IMPRESSION: 1. Endotracheal tube and enteric tube as described. 2. No other major interval change. Electronically Signed: Celestine Marcial DO at 16:51 EDT Tel [phone], Service support , KUB X-Ray 06/24/20 16:15 IMPRESSION: 1. OG tube as described. 2. No evidence for acute intra-abdominal process. 3. Bilateral pleural effusions. Electronically Signed: Celestine Marcial DO at 16:49 EDT Tel [phone], Service support , ADDENDUM: 06/24/20 1802 Chest X-Ray 06/26/20 06:11 IMPRESSION: Stable examination. Electronically Signed: Ivan Arce, at 11:08 EDT , Service support , Medical Necessity - Tobacco Use Smoking Status: Former smoker Assessment/Plan All Active Problems (Last Reviewed 06/24/20 @ 12:[address] Armond Killian MD) Hypoxemia (Acute) Cardiopulmonary arrest (Acute) Ventricular tachycardia (Acute) Ventricular fibrillation (Acute) Myocardial infarction (Acute) Acute heart failure (Acute) Chronic combined systolic and diastolic CHF (congestive heart failure) (Acute) RECOMMENDATIONS: 1. Continue to wean FiO2 and PEEP to maintain oxygen saturations at or above 90%. 2. Continue scheduled bronchodilator therapy and steroids. 3. Minimize sedation with a goal to maintain a RASS of -1 to 1. Continue scheduled Seroquel twice daily. 4. Continue appropriate GI prophylaxis. 5. Continue Lasix IV twice daily. 6. Continue tube feeds as tolerated. 7. Continue antimicrobials. IMPRESSIONS: 1. Acute on chronic combined respiratory failure The patient presented to the emergency department from the TCU, after she apparently experienced an aspiration event leading to respiratory decompensation and worsening hypoxemia. There is concern that this hypoxemia may have precipitated an acute coronary event. The patient did suffer from cardiopulmonary arrest in the emergency department and did require intubation. Her acid-base status has improved at this time. Plan to continue current supportive measures with assist control mode of mechanical ventilation, with plans to titrate FiO2 and PEEP to maintain oxygen saturations at or above 90%. Over concerns for aspiration, the patient will be continued empirically on antimicrobials. The patient will also be continued on scheduled bronchodilator therapy and steroids, over concerns for underlying COPD. 2. Status post cardiopulmonary arrest Clinical concern that hypoxemia may have precipitated cardiac decompensation. Cardiology is currently following to assist with management. At this time, we will plan to continue current supportive measures. The patient may require eventual cardiac catheterization, once medically stabilized. 3. Encephalopathy Although there was initial concern for possible anoxic brain injury, the patient has improved from a mentation standpoint. Plan to continue to minimize sedation as tolerated with a goal to maintain a RASS of -1 to 1. 4. Acute kidney injury Improving. Suspect a component of ischemic ATN in the setting of cardiopulmonary arrest. Continue to monitor urine output for now. No current indication for renal replacement therapy. Nephrology is currently following. 5. History of heart failure with preserved ejection fraction/paroxysmal atrial fibrillation Continue current supportive measures with additional medical intervention per cardiology recommendations. 6. Chronic pain syndrome/morbid obesity/hypertension/depression/anxiety/questionable COPD Complicates care, management, recovery and prognosis. Continue scheduled bronchodilator therapy. CODE status: Discussed CODE status at length including difference between FULL code, DNR-CCA and DNR-CC status. Following discussions about the differences in these status, the patient's daughter requested DNR-CCA CODE STATUS. TIME: 32 minutes of critical care time, independent of procedures, was spent addressing the patient's acute on chronic combined respiratory failure, status post cardiopulmonary arrest, encephalopathy, history of heart failure, acute kidney injury, review of all data and collaboration with the care team. [phone]) [phone]: [id number] Critical care first hour
--- NOTE | 2020-06-29 06:09 | CPS ---
Pt.'s FiO2 decreased to 70%
[2020-06-29] MEDS: Propofol 10MG/Ml 1,000 MG/100 ML Bottle 12.9 MG CONT INF ×2 (07:03→13:48)
--- NOTE | 2020-06-29 07:27 | NURSING ---
0600 propofol at 20 mcg/kg/min, unable to chart on MAR
[2020-06-29 07:41] LABS: Bedside Glucose 99 mg/dL (70-110)
--- NOTE | 2020-06-29 08:47 | PN_ITS ---
Patient Problems: Active and Suspected Problems (Last Reviewed 06/24/20 @ 12:[address] Armond Killian MD) Hypoxemia (Acute) Cardiopulmonary arrest (Acute) Ventricular tachycardia (Acute) Ventricular fibrillation (Acute) Myocardial infarction (Acute) Acute heart failure (Acute) Chronic combined systolic and diastolic CHF (congestive heart failure) (Acute) Subjective: No new issues. She is still intubated and sedated. She is about 2.2 L positive Vitals/I&O's: Vital Signs Temp Pulse Resp BP Pulse Ox 100.0 F H 99 26 H 99/60 92 06/29/20 07:00 06/29/20 07:00 06/29/20 07:00 06/29/20 07:00 06/29/20 07:00 Oxygen Flow Rate (L/min) 60 Oxygen Delivery Method Mechanical Ventilator Weight: 242 lb 4.608 oz Body Mass Index (BMI) 39.9 Intake and Output for Last 24 Hours 06/27/20 06/28/20 06/29/20 23:59 23:59 23:59 Intake Total 2566.25 / 2602.45 2369.22 / 2404.42 325.57 / 325.57 Output Total 940 / 940 3695 / 3695 775 / 775 Balance 1626.25 / 1662.45 -1325.78 / -1290.58 -449.43 / -449.43 General: - - Intubated and sedated HEENT: Atraumatic, PERRLA, Normocephalic Oral: Moist Mucosa Neck: Supple, No JVD Lungs: Clear to auscultation, Normal air movement, No rhonchi, No wheeze, No rales, Diminished Cardiovascular: Regular Rhythm, Normal S1, Normal S2, No murmurs, Tachycardic Abdomen: Soft, Non-Distended, No Hepato-splenomegaly Extremities: No edema, Capillary Refill Less than 3 Seconds Skin: No rashes, No breakdown Neurological: - - Intubated and sedated Psych/Mental Status: - - Intubated and sedated Microbiology Past 72 Hours 06/25/20 06:45 Blood Culture (Wb) - Anticubital Right Blood Culture - Preliminary No growth in 48 hours. 06/25/20 09:06 Blood Culture (Wb) - Central Line Blood Culture - Preliminary No growth in 48 hours. 06/25/20 09:15 Urine Catheter - Naqvi Urine Culture - Final Culture exhibits no growth. 06/24/20 22:00 Sputum, Induced/Lukens Gram Stain - Final 06/24/20 22:00 Sputum, Induced/Lukens Respiratory Culture - Final Presumptive C albicans Laboratory Results 06/28/20 12:30: Random Vancomycin 30.2 H 06/28/20 12:30: APTT 52.8 H 06/28/20 13:14: POC Glucose 150 H 06/28/20 17:06: POC Glucose 124 H 06/28/20 21:30: APTT 67.3 H 06/28/20 23:35: POC Glucose 110 06/29/20 03:35: WBC 15.3 H, RBC 2.79 L, Hgb 8.4 L, Hct 27.5 L, MCV 98.6, MCH 30.1, MCHC 30.5 L, RDW Std Deviation 53.0 H, RDW Coeff of Ankit 14.6, Plt Count 306, MPV 10.0 06/29/20 03:35: Sodium 144, Potassium 4.0, Chloride 104, Carbon Dioxide 35.0 H, Anion Gap 5, BUN 107 H*, Creatinine 2.27 H, Estim Creat Clear Calc 20.20, Est GFR (MDRD) Af Amer 27 L, Est GFR (MDRD) Non-Af 23 L, BUN/Creatinine Ratio 47.1 H , Glucose 92, Calcium 8.5 06/29/20 03:35: APTT 73.2 H 06/29/20 07:08: POC Glucose 99 Current Medications Acetaminophen (Acetaminophen 650 Mg/20 Ml Udc) 650 mg NG Q4H PRN PRN PRN Reason: temp>101.0 Last Admin: 06/25/20 17:52 Dose: 650 mg Documented by: Albuterol Sulfate (Albuterol 2.5 Mg/3 Ml Vial.Neb.) 2.5 mg INHALATION Q2H PRN PRN PRN Reason: SOB/Wheezing Albuterol/Ipratropium (Ipratropium/Albuterol Sulfate 3 Ml Ampul.Neb) 3 ml INHALATION Q4H.RT KIM Last Admin: 06/29/20 06:22 Dose: 3 ml Documented by: Aspirin (Aspirin 81 Mg Tab.Chew) 81 mg NG DAILY@0800 [facility] Last Admin: 06/28/20 08:02 Dose: 81 mg Documented by: Chlorhexidine Gluconate (Chlorhexidine 15 Ml) 15 ml PO BID [facility] Last Admin: 06/28/20 21:25 Dose: 15 ml Documented by: Dextrose (Dextrose 50%-Water 25 Gm/50 Ml Disp.Syrin) 0 gm IV X1 PRN; Protocol PRN Reason: Hypoglycemia Famotidine (Famotidine 20 Mg Tablet) 20 mg NG DAILY [facility] Last Admin: 06/28/20 08:01 Dose: 20 mg Documented by: Furosemide (Furosemide 40 Mg/4 Ml Vial) 40 mg IV BID@1000,1800 [facility] Last Admin: 06/28/20 17:13 Dose: 40 mg Documented by: Glucagon (Glucagon 1 Mg/Ml Syringe) 1 mg IM .X1 PRN PRN Reason: Hypoglycemia Heparin Sodium (Beef Lung) (Heparin Pf Lock 10 Units/Ml 50 Units/5 Ml Syringe) 50 units IV UD PRN PRN Reason: PICC Line Heparin Flush Heparin Sodium (Porcine) (Heparin Injection (Vial) 5,000 Unit/Ml Vial) 0 unit IV UD PRN; Protocol PRN Reason: dose adjustment Last Admin: 06/27/20 10:08 Dose: 1,000 unit Documented by: Heparin Sodium/Dextrose () 25,000 units in 250 mls @ 10 mls/hr IV .Q25H [facility]; Protocol Last Titration: 06/29/20 04:30 Dose: 1,300 units/hr, 13 mls/hr Documented by: Sodium Chloride () 250 mls @ 15 mls/hr IV .[id number] PRN PRN Reason: Saline Flush Last Infusion: 06/28/20 21:35 Dose: Infused Documented by: Sodium Chloride () 250 mls @ 15 mls/hr IV .[id number] PRN PRN Reason: Additional IVPB Infusion Fentanyl Citrate 1,000 mcg/ (Sodium Chloride) 100 mls @ 5 mls/hr CONT INF .Q20H [facility]; Protocol Last Admin: 06/29/20 06:26 Dose: 150 mcg/hr, 15 mls/hr Documented by: Enteral Nutritional Formula (Vital High Protein) 1,000 mls @ 60 mls/hr GT .[id number] [facility] Last Admin: 06/29/20 02:00 Dose: 60 mls/hr Documented by: Ampicillin Sodium/Sulbactam (Sodium 3 gm/ Sodium Chloride) 112 mls @ 150 mls/hr IV Q12 [facility] Last Infusion: 06/28/20 22:20 Dose: Infused Documented by: Propofol (Diprivan) 1,000 mg in 100 mls @ 6.594 mls/hr CONT INF .Q12H [facility]; Protocol Last Admin: 06/29/20 07:03 Dose: 20 mcg/kg/min, 12.9 mls/hr Documented by: Insulin Human Lispro (Insulin Lispro 100 Unit/Ml Insuln.Pen) 0 unit SC Q6 [facility]; Protocol Last Admin: 06/29/20 07:26 Dose: Not Given Documented by: L-Arginine/L-Glutamine/Calcium HMB (Rosendo (Unflavored) Packet) 1 packet NG BIDCM [facility] Last Admin: 06/28/20 17:11 Dose: 1 packet Documented by: Metoprolol Tartrate (Metoprolol Tartrate 25 Mg Tablet) 12.5 mg PO BID [facility] Last Admin: 06/28/20 21:27 Dose: 12.5 mg Documented by: Polyethylene Glycol (Polyethylene Glycol 3350 17 Gm Packet) 17 gm NG DAILY [facility] Last Admin: 06/28/20 08:01 Dose: 17 gm Documented by: Prednisone (Prednisone 20 Mg Tablet) 40 mg NG DAILY@0800 [facility] Last Admin: 06/28/20 08:02 Dose: 40 mg Documented by: Quetiapine Fumarate (Quetiapine 25 Mg Tablet) 50 mg PO BID [facility] Last Admin: 06/28/20 21:25 Dose: 50 mg Documented by: Senna/Docusate Sodium (Senna/Docusate Sodium 1 Tablet) 2 tablet NG BID [facility] Last Admin: 06/28/20 21:26 Dose: Not Given Documented by: Sodium Chloride (0.9% Saline Lock 10 Ml Syringe) 10 - 40 ml IV UD PRN PRN Reason: Open End PICC Flush Last Admin: 06/27/20 06:27 Dose: 40 ml Documented by: Sodium Chloride (0.9 % Nacl (Sterile) Posiflush 10 Ml) 10 - 40 ml IV UD PRN PRN Reason: Port access or dressing change Sodium Chloride (0.9% Saline Lock 10 Ml Syringe) 10 - 40 ml IV UD PRN PRN Reason: SALINE FLUSH STROKE Vital Signs/Narrative: Vital Signs Temp Pulse Resp BP Pulse Ox 06/29/20 07:00 100.0 F H 99 26 H 99/60 92 06/29/20 06:00 99.9 F H 100 18 103/61 93 06/29/20 05:40 104 H 15 93 06/29/20 05:00 99.8 F H 97 15 100/55 L 92 Medical Necessity - Tobacco Use Smoking Status: Former smoker Assessment/Plan All Active Problems (Last Reviewed 06/24/20 @ 12:[address] Armond Killian MD) Hypoxemia (Acute) Cardiopulmonary arrest (Acute) Ventricular tachycardia (Acute) Ventricular fibrillation (Acute) Myocardial infarction (Acute) Acute heart failure (Acute) Chronic combined systolic and diastolic CHF (congestive heart failure) (Acute) 1. Cardiopulmonary arrest secondary to acute NH secondary to acute on chronic hypoxic respiratory failure secondary to aspiration pneumonia/acute metabolic encephalopathy/EMMANUEL likely ATN -Remains intubated and sedated, continue to wean FiO2 and sedation -Continue with Unasyn -Continue with prednisone for possible history of COPD -Appreciate cardiology input, continue with heparin -EF of 45% with mild segmental systolic dysfunction -Over 4 L positive in her fluid balance, will continue with Lasix -Renal function peaked at 3.24, it is slightly better today at 3.03 however her BUN is 107. She is making urine, appreciate nephrology systems 2. Acute on chronic combined CHF/paroxysmal A. fib/HTN/morbid obesity -Continue with IV Lasix, appreciate cardiology's assistance -EF of 45% -We will continue with her rate control medication metoprolol -BMI of 40.6 we will discuss weight reduction following extubation 3. History of osteomyelitis -Patient amputation of her right second toe on 06/07/[address] Montilla -She was discharged to TCU on Rocephin, continue with Unasyn for now for her MSSA 4. Depression/anxiety - we will hold her home medications pending extubation -Continue with Seroquel DVT: Heparin drip Inpatient E&M: [id number] Subs Hosp L2
--- NOTE | 2020-06-29 09:40 | PN.CARD_ITS ---
Subjectve: The patient remains in the ICU mechanically intubated and ventilated. Objective: Vital Signs Temp Pulse Resp BP Pulse Ox 100.0 F H 99 26 H 99/60 92 06/29/20 07:00 06/29/20 07:00 06/29/20 07:00 06/29/20 07:00 06/29/20 07:00 Oxygen Flow Rate (L/min) 60 Oxygen Delivery Method Mechanical Ventilator Weight: 242 lb 4.608 oz Body Mass Index (BMI) 39.9 Intake and Output for Last 24 Hours 06/27/20 06/28/20 06/29/20 23:59 23:59 23:59 Intake Total 2566.25 / 2602.45 2369.22 / 2404.42 325.57 / 325.57 Output Total 940 / 940 3695 / 3695 775 / 775 Balance 1626.25 / 1662.45 -1325.78 / -1290.58 -449.43 / -449.43 Lungs: - - Disseminated upper airway sounds Cardiovascular: Regular Rhythm, Normal S1, Normal S2 Abdomen: Bowel Sounds Present, Soft Extremities: No edema 06/28/20 12:30: APTT 52.8 H 06/28/20 21:30: APTT 67.3 H 06/29/20 03:35: WBC 15.3 H, RBC 2.79 L, Hgb 8.4 L, Hct 27.5 L, MCV 98.6, MCH 30.1, MCHC 30.5 L, Plt Count 306, MPV 10.0 06/29/20 03:35: Sodium 144, Potassium 4.0, Chloride 104, Carbon Dioxide 35.0 H, Anion Gap 5, BUN 107 H*, Creatinine 2.27 H, Est GFR (MDRD) Af Amer 27 L, Est GFR (MDRD) Non-Af 23 L, BUN/Creatinine Ratio 47.1 H, Glucose 92, Calcium 8.5 06/29/20 03:35: APTT 73.2 H Rhythm: Sinus rhythm Medical Necessity - Tobacco Use Smoking Status: Former smoker Assessment/Plan 1. Acute cardiopulmonary arrest The patient experienced an acute cardiopulmonary arrest. There is concerns as to whether or not this may have been initiated by aspiration pneumonia and hypoxemia. According to the medical records available for review this arrest was a prolonged event. She was evaluated by interventional cardiology at the time who did not recommend urgent/emergent diagnostic cardiac catheterization. This was pending the outcome of her cardiopulmonary arrest, neurologic status, multiple comorbidities, etc. The patient has been evaluated by [facility] cardiology in the past. The information obtained is as noted in her previous cardiology progress note. At the present time the patient is in the ICU. She remains mechanically intubated and ventilated. She is going to continue supportive care at this time. Depending upon the outcome of her multiple medical issues she can be considered for future evaluation in the cardiac catheterization laboratory. 2. Paroxysmal atrial fibrillation/ventricular tachycardia The patient has, per previous medical records from 2018, reports of paroxysmal atrial fibrillation as well as paroxysmal ventricular tachycardia. She has been evaluated for these issues at [facility]. It appears she was treated medically and underwent EPS/RFA of PVCs. At the moment she will continue to have her rate and rhythm monitored. She is on low-dose beta-bairon. This dose can be increased as tolerated. 3. CHF: Acute systolic She has a history of CHF. In the past this was reported as combined systolic and diastolic. There are concerns at this time she may have experienced, based on her event, an episode of acute systolic CHF. She remains in the ICU mechanically intubated and ventilated. She remains on IV diuretics. Her creatinine level appears to be improving. She will continue to be followed. She will continue medical management as she is able to. 4. Hypotension Her blood pressure appears to be somewhat improved at this time. He appears to be tolerating the beta-blockers and diuretics thus far. She is continuing evaluation care per pulmonology/critical care medicine. 5. COPD The patient has a history of COPD. She will need to continue evaluation care per internal medicine and pulmonology. 7. Obstructive sleep apnea The patient has per previous records a history of obstructive sleep apnea for which she has been reported is noncompliant with follow-up and care. She will need continued valuation care by her primary care physicians. 8. Obesity The patient has been reported as being obese in the past and currently. She apparently has been counseled in the past regarding diet and activity, etc., to try and bring her weight under better control. 9. Renal insufficiency Her creatinine has improved somewhat although remains elevated. Overall, at the present time, the patient will continue in the ICU. She will continue supportive care. Depending upon the outcome of her multiple comorbidities consideration will be given as to whether or not she is a candidate for further evaluation such as diagnostic cardiac catheterization, however, there is concern at this time based upon her marked renal insufficiency with the possibility of additional IV contrast related nephropathy. This note was generated using a voice recognition system and there may be incorrect words, spelling or punctuation that were not noted when reviewing the office note prior to saving.
[2020-06-29] MEDS: Juven (unflavored) Packet 1 PACKET NG ×2 (09:59→17:37)
[2020-06-29] MEDS: Famotidine 20 MG Tablet NG (09:59)
[2020-06-29] MEDS: predniSONE 20 MG Tablet 40 MG NG (09:59)
[2020-06-29] MEDS: Polyethylene Glycol 3350 17 GM PACKET NG (09:59)
[2020-06-29] MEDS: Chlorhexidine 15 ML PO ×2 (09:59→21:06)
[2020-06-29] MEDS: Furosemide 40 MG/4 ML Vial IV ×2 (09:59→17:24)
[2020-06-29] MEDS: QUEtiapine 25 MG Tablet 50 MG PO ×2 (10:00→21:05)
[2020-06-29 11:16] LABS: Bedside Glucose 167 mg/dL (70-110)
[2020-06-29] MEDS: Insulin Lispro 100 UNIT/ML INSULN.PEN SC ×2 (11:43→17:16)
[2020-06-29] MEDS: Aspirin 81 MG TAB.CHEW NG (11:43)
[2020-06-29] MEDS: Metoprolol Tartrate 25 MG Tablet 12.5 MG PO ×2 (11:43→21:05)
[2020-06-29 11:53] LABS: Partial Thromboplast Time 48.7 Seconds (24.1-36.2)
[2020-06-29] MEDS: TITRATION PARAMETER CHANGE 1 EACH IV (14:34)
[2020-06-29] MEDS: Acetaminophen 650 MG/20 ML UDC NG ×2 (15:05→21:18)
[2020-06-29 16:02] LABS: Vancomycin, Random Level 20.7 ug/mL (0.0-15.0)
[2020-06-29] MEDS: HEPARIN/D5w 25,000 UNITS 25,000 UNITS/250 ML IV.SOLN. 14 UNITS IV (17:15)
[2020-06-29 17:16] LABS: Bedside Glucose 152 mg/dL (70-110)
--- NOTE | 2020-06-29 18:22 | PCM.RX.CS ---
Consult Pharmacy has been consulted to manage selected antiobiotic: Vancomycin Type of Consult: Follow-up Suspected Infection: Pneumonia Prior Doses of Antibiotics Received/Current Regimen: Received 1750mg iv x 1 on 06.27.20. Labs: Sodium 144 mmol/L (136-145) 06/29/20 03:35 Potassium 4.0 mmol/L (3.5-5.1) 06/29/20 03:35 Chloride 104 mmol/L (98-107) 06/29/20 03:35 Carbon Dioxide 35.0 mmol/L (21.0-32.0) H 06/29/20 03:35 Anion Gap 5 (5-15) 06/29/20 03:35 BUN 107 mg/dL (7-18) H* 06/29/20 03:35 Creatinine 2.27 mg/dL (0.55-1.02) H 06/29/20 03:35 Est GFR (MDRD) Af Amer 27 mL/min (>60) L 06/29/20 03:35 Est GFR (MDRD) Non-Af 23 mL/min (>60) L 06/29/20 03:35 BUN/Creatinine Ratio 47.1 RATIO (-20) H 06/29/20 03:35 Glucose 92 mg/dL (74-106) 06/29/20 03:35 Random Vancomycin 20.7 ug/mL (0.0-15.0) H 06/29/20 15:10 Microbiology: Microbiology 06/25/20 06:45 Blood Culture (Wb) - Anticubital Right Blood Culture - Preliminary No growth in 48 hours. 06/25/20 09:06 Blood Culture (Wb) - Central Line Blood Culture - Preliminary No growth in 48 hours. 06/25/20 09:15 Urine Catheter - Naqvi Urine Culture - Final Culture exhibits no growth. 06/24/20 22:00 Sputum, Induced/Lukens Gram Stain - Final 06/24/20 22:00 Sputum, Induced/Lukens Respiratory Culture - Final Presumptive C albicans 06/25/20 09:15 Urine Catheter - Naqvi Streptococcus pneumoniae Antigen (M - Final 06/25/20 09:15 Urine Catheter - Naqvi Legionella Antigen - Final 06/25/20 07:35 Mucosa - Nose Respiratory Panel (PCR) - Final Weight used for dosin kg Estimated Creatinine Clearance: ~20ml/min Goal Trough: 15-20 mcg/mL Pharmacy Plan for Drug Dosing: Vanco random level today 20.7 with goal range 15-20 mcg/ml. Renal function Cr 2.27 and CrCl ~20ml/min. Will hold further dosing and a repeat random level has been ordered for 06.30.20 Pharmacy Service will continue to monitor and adjust dosing as required. Follow-Up Labs: Trough Vancomycin - random 06.30.20 @1200
[2020-06-29] MEDS: Propofol 10MG/Ml 1,000 MG/100 ML Bottle 13.2 MG CONT INF (18:30)
--- NOTE | 2020-06-29 18:57 | PCM.PN.REN ---
Patient Problems: Active and Suspected Problems (Last Reviewed 06/24/20 @ 12:[address] Armond Killian MD) Hypoxemia (Acute) Cardiopulmonary arrest (Acute) Ventricular tachycardia (Acute) Ventricular fibrillation (Acute) Myocardial infarction (Acute) Acute heart failure (Acute) Chronic combined systolic and diastolic CHF (congestive heart failure) (Acute) Subjective: Following for EMMANUEL. Pt remains on ventilator. Cannot do ROS. - Physical Exam Vitals/I&O's: Vital Signs Temp Pulse Resp BP Pulse Ox 100.9 F H 92 16 91/53 L 96 06/29/20 18:00 06/29/20 18:00 06/29/20 18:00 06/29/20 18:00 06/29/20 18:00 Oxygen Flow Rate (L/min) 60 Oxygen Delivery Method Mechanical Ventilator Weight: 109.9 kg Body Mass Index (BMI) 39.9 Intake and Output for Last 24 Hours 06/27/20 06/28/20 06/29/20 23:59 23:59 23:59 Intake Total 2566.25 / 2602.45 2369.22 / 2404.42 1684.01 / 1684.01 Output Total 940 / 940 3695 / 3695 3425 / 3425 Balance 1626.25 / 1662.45 -1325.78 / -1290.58 -1740.99 / -1740.99 General: No apparent distress HEENT: Atraumatic Oral: - - intubated Neck: Supple Lungs: Rhonchi - BL Cardiovascular: Normal S1, Normal S2, No murmurs Abdomen: Bowel Sounds Present, Soft, Non Tender Extremities: No edema Microbiology Past 72 Hours 06/25/20 06:45 Blood Culture (Wb) - Anticubital Right Blood Culture - Preliminary No growth in 48 hours. 06/25/20 09:06 Blood Culture (Wb) - Central Line Blood Culture - Preliminary No growth in 48 hours. 06/25/20 09:15 Urine Catheter - Naqvi Urine Culture - Final Culture exhibits no growth. Laboratory Results 06/28/20 21:30: APTT 67.3 H 06/28/20 23:35: POC Glucose 110 06/29/20 03:35: WBC 15.3 H, RBC 2.79 L, Hgb 8.4 L, Hct 27.5 L, MCV 98.6, MCH 30.1, MCHC 30.5 L, RDW Std Deviation 53.0 H, RDW Coeff of Ankit 14.6, Plt Count 306, MPV 10.0 06/29/20 03:35: Sodium 144, Potassium 4.0, Chloride 104, Carbon Dioxide 35.0 H, Anion Gap 5, BUN 107 H*, Creatinine 2.27 H, Estim Creat Clear Calc 20.20, Est GFR (MDRD) Af Amer 27 L, Est GFR (MDRD) Non-Af 23 L, BUN/Creatinine Ratio 47.1 H, Glucose 92, Calcium 8.5 06/29/20 03:35: APTT 73.2 H 06/29/20 07:08: POC Glucose 99 06/29/20 11:06: POC Glucose 167 H 06/29/20 11:20: APTT 48.7 H 06/29/20 15:10: Random Vancomycin 20.7 H 06/29/20 17:13: POC Glucose 152 H Current Medications Acetaminophen (Acetaminophen 650 Mg/20 Ml Udc) 650 mg NG Q4H PRN PRN PRN Reason: temp>101.0 Last Admin: 06/29/20 15:05 Dose: 650 mg Documented by: Albuterol Sulfate (Albuterol 2.5 Mg/3 Ml Vial.Neb.) 2.5 mg INHALATION Q2H PRN PRN PRN Reason: SOB/Wheezing Albuterol/Ipratropium (Ipratropium/Albuterol Sulfate 3 Ml Ampul.Neb) 3 ml INHALATION Q4H.RT [facility] Last Admin: 06/29/20 18:48 Dose: 3 ml Documented by: Aspirin (Aspirin 81 Mg Tab.Chew) 81 mg NG DAILY@0800 [facility] Last Admin: 06/29/20 11:43 Dose: 81 mg Documented by: Chlorhexidine Gluconate (Chlorhexidine 15 Ml) 15 ml PO BID [facility] Last Admin: 06/29/20 09:59 Dose: 15 ml Documented by: Dextrose (Dextrose 50%-Water 25 Gm/50 Ml Disp.Syrin) 0 gm IV X1 PRN; Protocol PRN Reason: Hypoglycemia Famotidine (Famotidine 20 Mg Tablet) 20 mg NG DAILY [facility] Last Admin: 06/29/20 09:59 Dose: 20 mg Documented by: Furosemide (Furosemide 40 Mg/4 Ml Vial) 40 mg IV BID@1000,1800 [facility] Last Admin: 06/29/20 17:24 Dose: 40 mg Documented by: Glucagon (Glucagon 1 Mg/Ml Syringe) 1 mg IM .X1 PRN PRN Reason: Hypoglycemia Heparin Sodium (Beef Lung) (Heparin Pf Lock 10 Units/Ml 50 Units/5 Ml Syringe) 50 units IV UD PRN PRN Reason: PICC Line Heparin Flush Heparin Sodium (Porcine) (Heparin Injection (Vial) 5,000 Unit/Ml Vial) 0 unit IV UD PRN; Protocol PRN Reason: dose adjustment Last Admin: 06/27/20 10:08 Dose: 1,000 unit Documented by: Heparin Sodium/Dextrose () 25,000 units in 250 mls @ 10 mls/hr IV .Q25H [facility]; Protocol Last Admin: 06/29/20 17:15 Dose: 1,400 units/hr, 14 mls/hr Documented by: Sodium Chloride () 250 mls @ 15 mls/hr IV .[id number] PRN PRN Reason: Saline Flush Last Infusion: 06/28/20 21:35 Dose: Infused Documented by: Sodium Chloride () 250 mls @ 15 mls/hr IV .[id number] PRN PRN Reason: Additional IVPB Infusion Fentanyl Citrate 1,000 mcg/ (Sodium Chloride) 100 mls @ 5 mls/hr CONT INF .Q20H [facility]; Protocol Last Admin: 06/29/20 13:53 Dose: 150 mcg/hr, 15 mls/hr Documented by: Enteral Nutritional Formula (Vital High Protein) 1,000 mls @ 60 mls/hr GT .[id number] [facility] Last Admin: 06/29/20 17:15 Dose: 60 mls/hr Documented by: Ampicillin Sodium/Sulbactam (Sodium 3 gm/ Sodium Chloride) 112 mls @ 150 mls/hr IV Q12 [facility] Last Infusion: 06/29/20 15:15 Dose: Infused Documented by: Propofol (Diprivan) 1,000 mg in 100 mls @ 6.594 mls/hr CONT INF .Q12H [facility]; Protocol Last Admin: 06/29/20 18:30 Dose: 20 mcg/kg/min, 13.2 mls/hr Documented by: Insulin Human Lispro (Insulin Lispro 100 Unit/Ml Insuln.Pen) 0 unit SC Q6 [facility]; Protocol Last Admin: 06/29/20 17:16 Dose: 1 units Documented by: L-Arginine/L-Glutamine/Calcium HMB (Rosendo (Unflavored) Packet) 1 packet NG BIDCM [facility] Last Admin: 06/29/20 17:37 Dose: 1 packet Documented by: Metoprolol Tartrate (Metoprolol Tartrate 25 Mg Tablet) 12.5 mg PO BID [facility] Last Admin: 06/29/20 11:43 Dose: 12.5 mg Documented by: Polyethylene Glycol (Polyethylene Glycol 3350 17 Gm Packet) 17 gm NG DAILY [facility] Last Admin: 06/29/20 09:59 Dose: 17 gm Documented by: Prednisone (Prednisone 20 Mg Tablet) 40 mg NG DAILY@0800 [facility] Last Admin: 06/29/20 09:59 Dose: 40 mg Documented by: Quetiapine Fumarate (Quetiapine 25 Mg Tablet) 50 mg PO BID [facility] Last Admin: 06/29/20 10:00 Dose: 50 mg Documented by: Senna/Docusate Sodium (Senna/Docusate Sodium 1 Tablet) 2 tablet NG BID [facility] Last Admin: 06/29/20 10:01 Dose: Not Given Documented by: Sodium Chloride (0.9% Saline Lock 10 Ml Syringe) 10 - 40 ml IV UD PRN PRN Reason: Open End PICC Flush Last Admin: 06/27/20 06:27 Dose: 40 ml Documented by: Sodium Chloride (0.9 % Nacl (Sterile) Posiflush 10 Ml) 10 - 40 ml IV UD PRN PRN Reason: Port access or dressing change Sodium Chloride (0.9% Saline Lock 10 Ml Syringe) 10 - 40 ml IV UD PRN PRN Reason: SALINE FLUSH Medical Necessity - Tobacco Use Smoking Status: Former smoker Assessment/Plan All Active Problems (Last Reviewed 06/24/20 @ 12:[address] Armond Killian MD) Hypoxemia (Acute) Cardiopulmonary arrest (Acute) Ventricular tachycardia (Acute) Ventricular fibrillation (Acute) Myocardial infarction (Acute) Acute heart failure (Acute) Chronic combined systolic and diastolic CHF (congestive heart failure) (Acute) 1- EMMANUEL on CKD stage 3. Baseline SCr ~ 1.14 mg/dl EMMANUEL is likely ischemic ATN. SCr peaked at 3.2 mg/dL on 06/26/20. SCr is better today. Renal function is improving despite diuresis. Ok to continue Lasix. Will continue to evaluate the need of WELDING EQUIPMENT SALES REPRESENTATIVE daily. No need for WELDING EQUIPMENT SALES REPRESENTATIVE today. Keep MAP > 65. Medications reviewed. All are appropriately dosed for current CrCl. Monitor RFP and UOP. 2- S/P CPA with prolonged resuscitation Off pressor. hemodynamically stable. Supportive management as per regulatory affairs director. 3- Acute AL . Cardiology is following. Cardiac cath when she is more stable. 4- Acute hypoxic respiratory failure from aspiration and AL. Ok to continue diuresis. Abx treatment and vent support as per ICU team
[2020-06-29 22:04] LABS: Partial Thromboplast Time 61.4 Seconds (24.1-36.2)
[2020-06-30] VITALS (36 sets, daily range): BP systolic 91–147; BP diastolic 54–77; PULSE 73–120; RESP 14–27; TEMP 37.7–38.8; O2SAT 89–100
--- NOTE | 2020-06-30 00:16 | CPS ---
Pt.'s FiO2 decreased to 60%
[2020-06-30 01:21] LABS: Bedside Glucose 106 mg/dL (70-110)
[2020-06-30] MEDS: Vital High Protein 1,000 ML 60 ML GT ×5 (01:23→22:07)
[2020-06-30] MEDS: 0.9 % NaCl (Sterile) Posiflush 10 mL IV ×2 (01:24→22:22)
[2020-06-30] MEDS: Propofol 10MG/Ml 1,000 MG/100 ML Bottle 9.9 MG CONT INF ×3 (02:18→22:54)
[2020-06-30] MEDS: Ipratropium/Albuterol Sulfate 3 ML AMPUL.NEB INHALATION ×6 (02:28→23:22)
--- NOTE | 2020-06-30 02:53 | CPS ---
Pt.'s FiO2 increased to meet oxygenation demands
[2020-06-30 03:43] LABS: Hematocrit 29.8 % (37-47); Hemoglobin 8.7 g/dL (12.0-15.0); Mean Corp Hgb Conc 29.2 g/dL (32-36); Mean Corpuscular Hgb 29.3 pg (27.0-32.0); Mean Corpuscular Volume 100.3 fL (81-99); Platelet Count 348 K/mm3 (150-450); RBC Distribution Width CV 14.9 % (11.6-14.6); Red Blood Count 2.97 M/mm3 (4.2-5.4); White Blood Count 17.3 K/mm3 (4.4-11.0)
[2020-06-30 03:51] LABS: Partial Thromboplast Time 69.8 Seconds (24.1-36.2)
--- NOTE | 2020-06-30 03:51 | CPS ---
Pt.'s PEEP increased to 12 and FiO2 increased to 80%. Pt. unexpectedly desatted into the mid-80's for a period of time. PEEP increased for alveolar recruitment and FiO2 increased for oxygen demands
[2020-06-30 03:56] LABS: Anion Gap 4 (5-15); BUN 99 mg/dL (7-18); BUN/Creat Ratio 58.6 RATIO (10-20); Calcium,Total 8.8 mg/dL (8.5-10.1); Chloride 106 mmol/L (98-107); Creatinine, Serum 1.69 mg/dL (0.55-1.02); EST Glomerular Filtration Rate 32 mL/min (>60); Est Glom Filt Rate - Afr Amer 39 mL/min (>60); Estimated Creatinine Clearance 27.13 ml/min; Glucose 113 mg/dL (74-106); Sodium Level 149 mmol/L (136-145)
[2020-06-30] MEDS: TITRATION PARAMETER CHANGE 1 EACH IV (06:28)
[2020-06-30 06:35] LABS: Bedside Glucose 99 mg/dL (70-110)
--- NOTE | 2020-06-30 07:28 | PCM.PN.INT ---
Subjective: Patient did okay overnight. Patient did have some desaturation events and remains on a heparin drip. Patient has been tolerating tube feeds. Patient did not have a spontaneous breathing trial secondary to high PEEP requirements. Nursing did report significant diarrhea overnight. General: - - Intubated and sedated. Good vent synchrony noted. Morbidly obese. HEENT: Atraumatic, PERRLA, EOMI, Normocephalic, - - NG in place. Slight scleral injection without icterus Oral: Moist Mucosa, No Gingival or Mucosal Lesions/ Ulcerations Neck: Supple, No Nodes, Trachea Midline, JVD, Right Lungs: No rhonchi, No wheeze, No rales, Diminished, - - Symmetric expansion. Cardiovascular: Regular rate, Regular Rhythm, Normal S1, Normal S2, No murmurs, No rub noted, No Gallop Abdomen: Bowel Sounds Present, Soft, Non Tender, Non-Distended, Obese Extremities: No clubbing, No cyanosis, Edema Skin: No rashes, No breakdown Musculoskeletal: No Tenderness to Palpation of Joints or Extremities Lymphatic: No Cervical, Supraclavicular, or Inguinal Adenopathy Neurological: Cranial nerves II-XII grossly intact, Neuro grossly intact - Positive gag and cough reflexes. Localizes to stimulus. Follows some commands. Psych/Mental Status: Appropriate, Flat Affect Vital Signs Temp Pulse Resp BP Pulse Ox 37.9 C H 95 14 100/59 L 91 06/30/20 06:00 06/30/20 06:51 06/30/20 06:51 06/30/20 06:00 06/30/20 06:51 Oxygen Flow Rate (L/min) 60 Oxygen Delivery Method Mechanical Ventilator Weight: 109.5 kg Body Mass Index (BMI) 39.9 Intake and Output for Last 24 Hours 06/28/20 06/29/20 06/30/20 23:59 23:59 23:59 Intake Total 2369.22 / 2404.42 2450.52 / 2468.00 550.80 / 550.80 Output Total 3695 / 3695 5075 / 5075 1000 / 1000 Balance -1325.78 / -1290.58 -2624.48 / -2607.00 -449.20 / -449.20 Labs (Last 48 Hours) 06/28/20 06/28/20 06/28/20 06:25 12:30 12:30 WBC RBC Hgb Hct MCV MCH MCHC RDW Std Deviation RDW Coeff of Ankit Plt Count MPV APTT 52.8 H Sodium 143 Potassium 3.9 Chloride 103 Carbon Dioxide 33.0 H Anion Gap 7 BUN 107 H* Creatinine 3.03 H Estim Creat Clear Calc 15.13 Est GFR (MDRD) Af Amer 20 L Est GFR (MDRD) Non-Af 16 L BUN/Creatinine Ratio 35.3 H Glucose 105 Calcium 8.4 L Magnesium 2.5 Random Vancomycin 30.2 H POC Glucose 06/28/20 06/28/20 06/28/20 13:14 17:06 21:30 WBC RBC Hgb Hct MCV MCH MCHC RDW Std Deviation RDW Coeff of Ankit Plt Count MPV APTT 67.3 H Sodium Potassium Chloride Carbon Dioxide Anion Gap BUN Creatinine Estim Creat Clear Calc Est GFR (MDRD) Af Amer Est GFR (MDRD) Non-Af BUN/Creatinine Ratio Glucose Calcium Magnesium Random Vancomycin POC Glucose 150 H 124 H 06/28/20 06/29/20 06/29/20 23:35 03:35 03:35 WBC 15.3 H RBC 2.79 L Hgb 8.4 L Hct 27.5 L MCV 98.6 MCH 30.1 MCHC 30.5 L RDW Std Deviation 53.0 H RDW Coeff of Ankit 14.6 Plt Count 306 MPV 10.0 APTT Sodium 144 Potassium 4.0 Chloride 104 Carbon Dioxide 35.0 H Anion Gap 5 BUN 107 H* Creatinine 2.27 H Estim Creat Clear Calc 20.20 Est GFR (MDRD) Af Amer 27 L Est GFR (MDRD) Non-Af 23 L BUN/Creatinine Ratio 47.1 H Glucose 92 Calcium 8.5 Magnesium Random Vancomycin POC Glucose 110 06/29/20 06/29/20 06/29/20 03:35 07:08 11:06 WBC RBC Hgb Hct MCV MCH MCHC RDW Std Deviation RDW Coeff of Ankit Plt Count MPV APTT 73.2 H Sodium Potassium Chloride Carbon Dioxide Anion Gap BUN Creatinine Estim Creat Clear Calc Est GFR (MDRD) Af Amer Est GFR (MDRD) Non-Af BUN/Creatinine Ratio Glucose Calcium Magnesium Random Vancomycin POC Glucose 99 167 H 06/29/20 06/29/20 06/29/20 11:20 15:10 17:13 WBC RBC Hgb Hct MCV MCH MCHC RDW Std Deviation RDW Coeff of Ankit Plt Count MPV APTT 48.7 H Sodium Potassium Chloride Carbon Dioxide Anion Gap BUN Creatinine Estim Creat Clear Calc Est GFR (MDRD) Af Amer Est GFR (MDRD) Non-Af BUN/Creatinine Ratio Glucose Calcium Magnesium Random Vancomycin 20.7 H POC Glucose 152 H 06/29/20 06/30/20 06/30/20 21:15 01:16 03:35 WBC 17.3 H RBC 2.97 L Hgb 8.7 L Hct 29.8 L MCV 100.3 H MCH 29.3 MCHC 29.2 L RDW Std Deviation 54.0 H RDW Coeff of Ankit 14.9 H Plt Count 348 MPV 11.0 APTT 61.4 H Sodium Potassium Chloride Carbon Dioxide Anion Gap BUN Creatinine Estim Creat Clear Calc Est GFR (MDRD) Af Amer Est GFR (MDRD) Non-Af BUN/Creatinine Ratio Glucose Calcium Magnesium Random Vancomycin POC Glucose 106 06/30/20 06/30/20 06/30/20 03:35 03:35 06:24 WBC RBC Hgb Hct MCV MCH MCHC RDW Std Deviation RDW Coeff of Ankit Plt Count MPV APTT 69.8 H Sodium 149 H Potassium 4.0 Chloride 106 Carbon Dioxide 39.0 H Anion Gap 4 L BUN 99 H Creatinine 1.69 H Estim Creat Clear Calc 27.13 Est GFR (MDRD) Af Amer 39 L Est GFR (MDRD) Non-Af 32 L BUN/Creatinine Ratio 58.6 H Glucose 113 H Calcium 8.8 Magnesium Random Vancomycin POC Glucose 99 Medical Necessity - Tobacco Use Smoking Status: Former smoker Assessment/Plan All Active Problems (Last Reviewed 06/24/20 @ 12:[address] Armond Killian MD) Hypoxemia (Acute) Cardiopulmonary arrest (Acute) Ventricular tachycardia (Acute) Ventricular fibrillation (Acute) Myocardial infarction (Acute) Acute heart failure (Acute) Chronic combined systolic and diastolic CHF (congestive heart failure) (Acute) RECOMMENDATIONS: 1. Continue to wean FiO2 and PEEP to maintain oxygen saturations at or above 90%. 2. Continue scheduled bronchodilator therapy and steroids. 3. Minimize sedation with a goal to maintain a RASS of -1 to 1. Continue scheduled Seroquel twice daily. 4. Continue appropriate GI prophylaxis, diuretics, tube feeds and antimicrobials. 5. Initiate contact precautions. Check C. difficile 6. Wean FiO2 as tolerated IMPRESSIONS: 1. Acute on chronic combined respiratory failure The patient presented to the emergency department from the TCU, after she apparently experienced an aspiration event leading to respiratory decompensation and worsening hypoxemia. There is concern that this hypoxemia may have precipitated an acute coronary event. The patient did suffer from cardiopulmonary arrest in the emergency department and did require intubation. Patient remains on high FiO2 requirements with PEEP. Patient appears to be responding to steroid and antibiotic therapy. Anticipate continuation for now at current levels until status stabilizes. 2. Status post cardiopulmonary arrest Clinical concern that hypoxemia may have precipitated cardiac decompensation. Cardiology is currently following to assist with management. At this time, we will plan to continue current supportive measures. The patient may require eventual cardiac catheterization, once medically stabilized. Anticipate continuing heparin drip until intervention can be addressed 3. Encephalopathy Although there was initial concern for possible anoxic brain injury, the patient has improved from a mentation standpoint. Plan to continue to minimize sedation as tolerated with a goal to maintain a RASS of -1 to 1. 4. Acute kidney injury Improving. Suspect a component of ischemic ATN in the setting of cardiopulmonary arrest. Continue to monitor urine output for now. No current indication for renal replacement therapy. Nephrology is currently following. 5. History of heart failure with preserved ejection fraction/paroxysmal atrial fibrillation Continue current supportive measures with additional medical intervention per cardiology recommendations. Continue heparin drip for now 6. Chronic pain syndrome/morbid obesity/hypertension/depression/anxiety/questionable COPD Complicates care, management, recovery and prognosis. Continue scheduled bronchodilator therapy. 7. Severe sepsis secondary to aspiration pneumonia versus sinusitis Patient has multiple etiologies for severe sepsis. Patient does have an aspiration pneumonia, but developed diarrhea and has an increasing leukocytosis overnight. Given prolonged hospitalization, C. difficile would be a consideration. Patient also has an NG in place, so sinusitis could be leading to current findings. Patient will be placed in contact precautions until a C. difficile can be obtained. CODE status: Succussion of CODE status at length with Dr. Davis including difference between FULL code, DNR-CCA and DNR-CC status. Following discussions about the differences in these status, the patient's daughter requested DNR-CCA CODE STATUS. TIME: 34 minutes of critical care time, independent of procedures, was spent addressing the patient's acute on chronic combined respiratory failure, status post cardiopulmonary arrest, encephalopathy, history of heart failure, acute kidney injury, review of all data and collaboration with the care team. (6 AM to 7 AM) 9xxxx: [id number] Critical care first hour
[2020-06-30] MEDS: Propofol 10MG/Ml 1,000 MG/100 ML Bottle 13.2 MG CONT INF (09:07)
[2020-06-30] MEDS: Furosemide 40 MG/4 ML Vial IV ×2 (09:10→18:13)
[2020-06-30] MEDS: Juven (unflavored) Packet 1 PACKET NG ×2 (09:10→18:04)
[2020-06-30] MEDS: Chlorhexidine 15 ML PO ×2 (09:12→21:56)
[2020-06-30] MEDS: Aspirin 81 MG TAB.CHEW NG (09:14)
[2020-06-30] MEDS: predniSONE 20 MG Tablet 40 MG NG (09:14)
[2020-06-30] MEDS: Metoprolol Tartrate 25 MG Tablet 12.5 MG PO ×2 (09:15→22:06)
[2020-06-30] MEDS: Famotidine 20 MG Tablet NG (09:15)
--- NOTE | 2020-06-30 09:18 | PN_ITS ---
Patient Problems: Active and Suspected Problems (Last Reviewed 06/24/20 @ 12:[address] Armond Killian MD) Hypoxemia (Acute) Cardiopulmonary arrest (Acute) Ventricular tachycardia (Acute) Ventricular fibrillation (Acute) Myocardial infarction (Acute) Acute heart failure (Acute) Chronic combined systolic and diastolic CHF (congestive heart failure) (Acute) Subjective: Intubated and sedated, remains febrile. She did develop diarrhea overnight and was placed in contact precautions. A C. difficile is pending Vitals/I&O's: Vital Signs Temp Pulse Resp BP Pulse Ox 100.2 F H 95 14 100/59 L 91 06/30/20 06:00 06/30/20 06:51 06/30/20 06:51 06/30/20 06:00 06/30/20 06:51 Oxygen Flow Rate (L/min) 60 Oxygen Delivery Method Mechanical Ventilator Weight: 241 lb 6.499 oz Body Mass Index (BMI) 39.9 Intake and Output for Last 24 Hours 06/28/20 06/29/20 06/30/20 23:59 23:59 23:59 Intake Total 2369.22 / 2404.42 2450.52 / 2468.00 550.80 / 550.80 Output Total 3695 / 3695 5075 / 5075 1000 / 1000 Balance -1325.78 / -1290.58 -2624.48 / -2607.00 -449.20 / -449.20 General: - - Intubated and sedated HEENT: Atraumatic, PERRLA, Normocephalic Oral: Moist Mucosa Neck: Supple, No JVD Lungs: Clear to auscultation, Normal air movement, No rhonchi, No wheeze, No rales, Diminished Cardiovascular: Regular rate and rhythm, Normal S1, Normal S2, No murmurs Abdomen: Soft, Non-Distended, No Hepato-splenomegaly Extremities: No edema, Capillary Refill Less than 3 Seconds Skin: No rashes, No breakdown Neurological: - - Intubated and sedated Psych/Mental Status: - - Intubated and sedated Microbiology Past 72 Hours 06/25/20 06:45 Blood Culture (Wb) - Anticubital Right Blood Culture - Final No growth in 5 days. 06/25/20 09:06 Blood Culture (Wb) - Central Line Blood Culture - Preliminary No growth in 48 hours. 06/25/20 09:15 Urine Catheter - Naqvi Urine Culture - Final Culture exhibits no growth. Laboratory Results 06/29/20 11:06: POC Glucose 167 H 06/29/20 11:20: APTT 48.7 H 06/29/20 15:10: Random Vancomycin 20.7 H 06/29/20 17:13: POC Glucose 152 H 06/29/20 21:15: APTT 61.4 H 06/30/20 01:16: POC Glucose 106 06/30/20 03:35: WBC 17.3 H, RBC 2.97 L, Hgb 8.7 L, Hct 29.8 L, MCV 100.3 H, MCH 29.3, MCHC 29.2 L, RDW Std Deviation 54.0 H, RDW Coeff of Ankit 14.9 H, Plt Count 348, MPV 11.0 06/30/20 03:35: Sodium 149 H, Potassium 4.0, Chloride 106, Carbon Dioxide 39.0 H , Anion Gap 4 L, BUN 99 H, Creatinine 1.69 H, Estim Creat Clear Calc 27.13, Est GFR (MDRD) Af Amer 39 L, Est GFR (MDRD) Non-Af 32 L, BUN/Creatinine Ratio 58.6 H , Glucose 113 H, Calcium 8.8 06/30/20 03:35: APTT 69.8 H 06/30/20 06:24: POC Glucose 99 Current Medications Acetaminophen (Acetaminophen 650 Mg/20 Ml Udc) 650 mg NG Q4H PRN PRN PRN Reason: temp>101.0 Last Admin: 06/29/20 21:18 Dose: 650 mg Documented by: Albuterol Sulfate (Albuterol 2.5 Mg/3 Ml Vial.Neb.) 2.5 mg INHALATION Q2H PRN PRN PRN Reason: SOB/Wheezing Albuterol/Ipratropium (Ipratropium/Albuterol Sulfate 3 Ml Ampul.Neb) 3 ml INHALATION Q4H.RT [facility] Last Admin: 06/30/20 06:51 Dose: 3 ml Documented by: Aspirin (Aspirin 81 Mg Tab.Chew) 81 mg NG DAILY@0800 [facility] Last Admin: 06/29/20 11:43 Dose: 81 mg Documented by: Chlorhexidine Gluconate (Chlorhexidine 15 Ml) 15 ml PO BID [facility] Last Admin: 06/29/20 21:06 Dose: 15 ml Documented by: Dextrose (Dextrose 50%-Water 25 Gm/50 Ml Disp.Syrin) 0 gm IV X1 PRN; Protocol PRN Reason: Hypoglycemia Famotidine (Famotidine 20 Mg Tablet) 20 mg NG DAILY [facility] Last Admin: 06/29/20 09:59 Dose: 20 mg Documented by: Furosemide (Furosemide 40 Mg/4 Ml Vial) 40 mg IV BID@1000,1800 [facility] Last Admin: 06/29/20 17:24 Dose: 40 mg Documented by: Glucagon (Glucagon 1 Mg/Ml Syringe) 1 mg IM .X1 PRN PRN Reason: Hypoglycemia Heparin Sodium (Beef Lung) (Heparin Pf Lock 10 Units/Ml 50 Units/5 Ml Syringe) 50 units IV UD PRN PRN Reason: PICC Line Heparin Flush Heparin Sodium (Porcine) (Heparin Injection (Vial) 5,000 Unit/Ml Vial) 0 unit IV UD PRN; Protocol PRN Reason: dose adjustment Last Admin: 06/27/20 10:08 Dose: 1,000 unit Documented by: Heparin Sodium/Dextrose () 25,000 units in 250 mls @ 10 mls/hr IV .Q25H KIM; Protocol Last Titration: 06/30/20 04:49 Dose: 1,300 units/hr, 13 mls/hr Documented by: Sodium Chloride () 250 mls @ 15 mls/hr IV .[id number] PRN PRN Reason: Saline Flush Last Infusion: 06/28/20 21:35 Dose: Infused Documented by: Sodium Chloride () 250 mls @ 15 mls/hr IV .[id number] PRN PRN Reason: Additional IVPB Infusion Fentanyl Citrate 1,000 mcg/ (Sodium Chloride) 100 mls @ 5 mls/hr CONT INF .Q20H KIM; Protocol Last Titration: 06/30/20 06:00 Dose: 150 mcg/hr, 15 mls/hr Documented by: Enteral Nutritional Formula (Vital High Protein) 1,000 mls @ 60 mls/hr GT .[id number] [facility] Last Admin: 06/30/20 06:28 Dose: 60 mls/hr Documented by: Ampicillin Sodium/Sulbactam (Sodium 3 gm/ Sodium Chloride) 112 mls @ 150 mls/hr IV Q12 [facility] Last Infusion: 06/29/20 22:03 Dose: Infused Documented by: Propofol (Diprivan) 1,000 mg in 100 mls @ 6.57 mls/hr CONT INF .Q12H [facility]; Protocol Last Titration: 06/30/20 06:00 Dose: 20 mcg/kg/min, 13.2 mls/hr Documented by: Insulin Human Lispro (Insulin Lispro 100 Unit/Ml Insuln.Pen) 0 unit SC Q6 [facility]; Protocol Last Admin: 06/30/20 06:28 Dose: Not Given Documented by: L-Arginine/L-Glutamine/Calcium HMB (Ros[facility] (Unflavored) Packet) [facility] Last Admin: 06/29/20 17:37 Dose: 1 packet Documented by: Metoprolol Tartrate (Metoprolol Tartrate 25 Mg Tablet) 12.5 mg PO BID [facility] Last Admin: 06/29/20 21:05 Dose: 12.5 mg Documented by: Polyethylene Glycol (Polyethylene Glycol 3350 17 Gm Packet) 17 gm NG DAILY [facility] Last Admin: 06/29/20 09:59 Dose: 17 gm Documented by: Prednisone (Prednisone 20 Mg Tablet) 40 mg NG DAILY@0800 [facility] Last Admin: 06/29/20 09:59 Dose: 40 mg Documented by: Quetiapine Fumarate (Quetiapine 25 Mg Tablet) 50 mg PO BID [facility] Last Admin: 06/29/20 21:05 Dose: 50 mg Documented by: Senna/Docusate Sodium (Senna/Docusate Sodium 1 Tablet) 2 tablet NG BID [facility] Last Admin: 06/29/20 21:06 Dose: Not Given Documented by: Sodium Chloride (0.9% Saline Lock 10 Ml Syringe) 10 - 40 ml IV UD PRN PRN Reason: Open End PICC Flush Last Admin: 06/27/20 06:27 Dose: 40 ml Documented by: Sodium Chloride (0.9 % Nacl (Sterile) Posiflush 10 Ml) 10 - 40 ml IV UD PRN PRN Reason: Port access or dressing change Last Admin: 06/30/20 01:24 Dose: 40 ml Documented by: Sodium Chloride (0.9% Saline Lock 10 Ml Syringe) 10 - 40 ml IV UD PRN PRN Reason: SALINE FLUSH STROKE Vital Signs/Narrative: Vital Signs Temp Pulse Resp BP Pulse Ox 06/30/20 06:51 94 14 91 06/30/20 06:00 100.2 F H 90 14 100/59 L 91 Medical Necessity - Tobacco Use Smoking Status: Former smoker Assessment/Plan All Active Problems (Last Reviewed 06/24/20 @ 12:[address] Armond Killian MD) Hypoxemia (Acute) Cardiopulmonary arrest (Acute) Ventricular tachycardia (Acute) Ventricular fibrillation (Acute) Myocardial infarction (Acute) Acute heart failure (Acute) Chronic combined systolic and diastolic CHF (congestive heart failure) (Acute) 1. Cardiopulmonary arrest secondary to acute DC secondary to acute on chronic hypoxic respiratory failure secondary to aspiration pneumonia/acute metabolic encephalopathy/EMMANUEL likely ATN -Remains intubated and sedated, continue to wean FiO2 and sedation -Continue with Unasyn -Continue with prednisone for possible history of COPD -Appreciate cardiology input, continue with heparin -EF of 45% with mild segmental systolic dysfunction -May need to hold her Lasix given her rising bicarb and sodium as well as chloride. -Renal function peaked at 3.24, improved to 1.69 today and her BUN is 99. She is making urine, appreciate nephrology assistance 2. Acute on chronic combined CHF/paroxysmal A. fib/HTN/morbid obesity -Continue with IV Lasix, appreciate cardiology's assistance -EF of 45% -We will continue with her rate control medication metoprolol -BMI of 40.6 we will discuss weight reduction following extubation 3. History of osteomyelitis -Patient amputation of her right second toe on 06/07/[address] Montilla -She was discharged to TCU on Rocephin, continue with Unasyn for now for her MSSA 4. Depression/anxiety - we will hold her home medications pending extubation -Continue with Seroquel 5. Diarrhea -We will check a C. difficile DVT: Heparin drip Inpatient E&M: [id number] Subs Hosp L2
--- NOTE | 2020-06-30 09:18 | PN.CARD_ITS ---
Subjectve: The patient remains in the ICU with mechanical intubation/ventilation. She is now under C. difficile toxin precautions. Objective: Vital Signs Temp Pulse Resp BP Pulse Ox 100.2 F H 95 14 100/59 L 91 06/30/20 06:00 06/30/20 06:51 06/30/20 06:51 06/30/20 06:00 06/30/20 06:51 Oxygen Flow Rate (L/min) 60 Oxygen Delivery Method Mechanical Ventilator Weight: 241 lb 6.499 oz Body Mass Index (BMI) 39.9 Intake and Output for Last 24 Hours 06/28/20 06/29/20 06/30/20 23:59 23:59 23:59 Intake Total 2369.22 / 2404.42 2450.52 / 2468.00 550.80 / 550.80 Output Total 3695 / 3695 5075 / 5075 1000 / 1000 Balance -1325.78 / -1290.58 -2624.48 / -2607.00 -449.20 / -449.20 General: Obese Lungs: Rhonchi, - - Scattered wheezes Cardiovascular: Regular Rhythm, Normal S1, Normal S2 Abdomen: Bowel Sounds Present, Soft Extremities: No edema 06/29/20 11:20: APTT 48.7 H 06/29/20 21:15: APTT 61.4 H 06/30/20 03:35: WBC 17.3 H, RBC 2.97 L, Hgb 8.7 L, Hct 29.8 L, MCV 100.3 H, MCH 29.3, MCHC 29.2 L, Plt Count 348, MPV 11.0 06/30/20 03:35: Sodium 149 H, Potassium 4.0, Chloride 106, Carbon Dioxide 39.0 H , Anion Gap 4 L, BUN 99 H, Creatinine 1.69 H, Est GFR (MDRD) Af Amer 39 L, Est GFR (MDRD) Non-Af 32 L, BUN/Creatinine Ratio 58.6 H, Glucose 113 H, Calcium 8.8 06/30/20 03:35: APTT 69.8 H Rhythm: Sinus rhythm; PVCs Medical Necessity - Tobacco Use Smoking Status: Former smoker Assessment/Plan 1. Acute cardiopulmonary arrest The patient experienced an acute cardiopulmonary arrest. There is concerns as to whether or not this may have been initiated by aspiration pneumonia and hypoxemia. According to the medical records available for review this arrest was a prolonged event. She was evaluated by interventional cardiology at the time who did not recommend urgent/emergent diagnostic cardiac catheterization. This was pending the outcome of her cardiopulmonary arrest, neurologic status, multiple comorbidities, etc. The patient has been evaluated by [facility] cardiology in the past. The information obtained is as noted in her previous cardiology progress note. At the present time the patient is in the ICU. She remains mechanically intubated and ventilated. She is going to continue supportive care at this time. Depending upon the outcome of her multiple medical issues she can be considered for future evaluation in the cardiac catheterization laboratory. 2. Paroxysmal atrial fibrillation/ventricular tachycardia The patient has, per previous medical records from 2018, reports of paroxysmal atrial fibrillation as well as paroxysmal ventricular tachycardia. She has been evaluated for these issues at [facility]. It appears she was treated medically and underwent EPS/RFA of PVCs. At the moment she will continue to have her rate and rhythm monitored. She is on low-dose beta-bairon. She appears to be tolerating this well thus far. Depending upon her heart rate and blood pressure and cardiac rhythm discussed can be adjusted as needed. 3. CHF: Acute systolic She has a history of CHF. In the past this was reported as combined systolic and diastolic. There are concerns at this time she may have experienced, based on her event, an episode of acute systolic CHF. She remains in the ICU mechanically intubated and ventilated. She remains on IV diuretics. He does not appear to have any obvious ongoing lower extremity peripheral pitting edema at this time. Her creatinine level appears to be improving. 4. Hypotension Her blood pressure appears to be somewhat improved at this time. He appears to be tolerating the beta-blockers and diuretics thus far. She is continuing evaluation care per pulmonology/critical care medicine. 5. COPD The patient has a history of COPD. She will need to continue evaluation care per internal medicine and pulmonology. 7. Obstructive sleep apnea The patient has per previous records a history of obstructive sleep apnea for which she has been reported is noncompliant with follow-up and care. She will need continued valuation care by her primary care physicians. 8. Obesity The patient has been reported as being obese in the past and currently. She apparently has been counseled in the past regarding diet and activity, etc., to try and bring her weight under better control. 9. Renal insufficiency Her creatinine has improved somewhat although remains elevated. Overall, at the present time, the patient will continue in the ICU. She will continue supportive care. Depending upon the outcome of her multiple comorbidities consideration will be given as to whether or not she is a candidate for further evaluation such as diagnostic cardiac catheterization, however, there is concern at this time based upon her marked renal insufficiency with the possibility of additional IV contrast related nephropathy. This note was generated using a voice recognition system and there may be incorrect words, spelling or punctuation that were not noted when reviewing the office note prior to saving.
[2020-06-30] MEDS: QUEtiapine 25 MG Tablet 50 MG PO ×2 (09:19→22:06)
--- NOTE | 2020-06-30 11:03 | CASEMGMT ---
Per Dr Antunez in ICU interdisciplinary rounds by the time patient is ready for discharge she may require an LTACH. SW will continue to follow for d/c planning. Lorri [facility] REP
[2020-06-30] MEDS: Insulin Lispro 100 UNIT/ML INSULN.PEN SC ×2 (11:20→18:04)
[2020-06-30 11:25] LABS: Bedside Glucose 154 mg/dL (70-110)
[2020-06-30] MEDS: Acetaminophen 650 MG/20 ML UDC NG (11:49)
[2020-06-30] MEDS: HEPARIN/D5w 25,000 UNITS 25,000 UNITS/250 ML IV.SOLN. 13 UNITS IV (11:50)
[2020-06-30 11:55] LABS: Partial Thromboplast Time 51.7 Seconds (24.1-36.2)
--- NOTE | 2020-06-30 13:27 | PN.RENAL_ITS ---
Patient Problems: Active and Suspected Problems (Last Reviewed 06/24/20 @ 12:[address] Armond Killian MD) Hypoxemia (Acute) Cardiopulmonary arrest (Acute) Ventricular tachycardia (Acute) Ventricular fibrillation (Acute) Myocardial infarction (Acute) Acute heart failure (Acute) Chronic combined systolic and diastolic CHF (congestive heart failure) (Acute) Subjective: remains intubated 70% FiO2 urine output is ok BUN and Cr down sodium higher - Physical Exam Vitals/I&O's: Vital Signs Temp Pulse Resp BP Pulse Ox 101.7 F H 95 14 91/56 L 90 06/30/20 12:00 06/30/20 12:00 06/30/20 12:00 06/30/20 12:00 06/30/20 12:00 Oxygen Flow Rate (L/min) 60 Oxygen Delivery Method Mechanical Ventilator Weight: 109.5 kg Body Mass Index (BMI) 39.9 Intake and Output for Last 24 Hours 06/28/20 06/29/20 06/30/20 23:59 23:59 23:59 Intake Total 2369.22 / 2404.42 2450.52 / 2468.00 1563.68 / 1563.68 Output Total 3695 / 3695 5075 / 5075 1900 / 1900 Balance -1325.78 / -1290.58 -2624.48 / -2607.00 -336.32 / -336.32 General: No apparent distress HEENT: Atraumatic, PERRLA, EOMI, Normocephalic Neck: Supple, No JVD, Negative Carotid Bruits Lungs: No rales Cardiovascular: Regular rate, No murmurs Abdomen: Bowel Sounds Present, Soft, Non Tender Extremities: No edema, Capillary Refill Less than 3 Seconds Skin: No rashes, No breakdown Musculoskeletal: No Tenderness to Palpation of Joints or Extremities Comment: intubated sedated lazar Microbiology Past 72 Hours 06/25/20 09:06 Blood Culture (Wb) - Central Line Blood Culture - Final No growth in 5 days. 06/25/20 06:45 Blood Culture (Wb) - Anticubital Right Blood Culture - Final No growth in 5 days. Laboratory Results 06/29/20 15:10: Random Vancomycin 20.7 H 06/29/20 17:13: POC Glucose 152 H 06/29/20 21:15: APTT 61.4 H 06/30/20 01:16: POC Glucose 106 06/30/20 03:35: WBC 17.3 H, RBC 2.97 L, Hgb 8.7 L, Hct 29.8 L, MCV 100.3 H, MCH 29.3, MCHC 29.2 L, RDW Std Deviation 54.0 H, RDW Coeff of Ankit 14.9 H, Plt Count 348, MPV 11.0 06/30/20 03:35: Sodium 149 H, Potassium 4.0, Chloride 106, Carbon Dioxide 39.0 H , Anion Gap 4 L, BUN 99 H, Creatinine 1.69 H, Estim Creat Clear Calc 27.13, Est GFR (MDRD) Af Amer 39 L, Est GFR (MDRD) Non-Af 32 L, BUN/Creatinine Ratio 58.6 H , Glucose 113 H, Calcium 8.8 06/30/20 03:35: APTT 69.8 H 06/30/20 06:24: POC Glucose 99 06/30/20 11:19: POC Glucose 154 H 06/30/20 11:20: APTT 51.7 H Current Medications Acetaminophen (Acetaminophen 650 Mg/20 Ml Udc) 650 mg NG Q4H PRN PRN PRN Reason: temp>101.0 Last Admin: 06/30/20 11:49 Dose: 650 mg Documented by: Albuterol Sulfate (Albuterol 2.5 Mg/3 Ml Vial.Neb.) 2.5 mg INHALATION Q2H PRN PRN PRN Reason: SOB/Wheezing Albuterol/Ipratropium (Ipratropium/Albuterol Sulfate 3 Ml Ampul.Neb) 3 ml INHALATION Q4H.RT [facility] Last Admin: 06/30/20 10:50 Dose: 3 ml Documented by: Aspirin (Aspirin 81 Mg Tab.Chew) 81 mg NG DAILY@0800 [facility] Last Admin: 06/30/20 09:14 Dose: 81 mg Documented by: Chlorhexidine Gluconate (Chlorhexidine 15 Ml) 15 ml PO BID [facility] Last Admin: 06/30/20 09:12 Dose: 15 ml Documented by: Dextrose (Dextrose 50%-Water 25 Gm/50 Ml Disp.Syrin) 0 gm IV X1 PRN; Protocol PRN Reason: Hypoglycemia Famotidine (Famotidine 20 Mg Tablet) 20 mg NG DAILY [facility] Last Admin: 06/30/20 09:15 Dose: 20 mg Documented by: Furosemide (Furosemide 40 Mg/4 Ml Vial) 40 mg IV BID@1000,1800 [facility] Last Admin: 06/30/20 09:10 Dose: 40 mg Documented by: Glucagon (Glucagon 1 Mg/Ml Syringe) 1 mg IM .X1 PRN PRN Reason: Hypoglycemia Heparin Sodium (Beef Lung) (Heparin Pf Lock 10 Units/Ml 50 Units/5 Ml Syringe) 50 units IV UD PRN PRN Reason: PICC Line Heparin Flush Heparin Sodium (Porcine) (Heparin Injection (Vial) 5,000 Unit/Ml Vial) 0 unit IV UD PRN; Protocol PRN Reason: dose adjustment Last Admin: 06/27/20 10:08 Dose: 1,000 unit Documented by: Heparin Sodium/Dextrose () 25,000 units in 250 mls @ 10 mls/hr IV .Q25H [facility]; Protocol Last Titration: 06/30/20 12:18 Dose: 1,400 units/hr, 14 mls/hr Documented by: Sodium Chloride () 250 mls @ 15 mls/hr IV .[id number] PRN PRN Reason: Saline Flush Last Infusion: 06/28/20 21:35 Dose: Infused Documented by: Sodium Chloride () 250 mls @ 15 mls/hr IV .[id number] PRN PRN Reason: Additional IVPB Infusion Fentanyl Citrate 1,000 mcg/ (Sodium Chloride) 100 mls @ 5 mls/hr CONT INF .Q20H [facility]; Protocol Last Titration: 06/30/20 12:16 Dose: 150 mcg/hr, 15 mls/hr Documented by: Enteral Nutritional Formula (Vital High Protein) 1,000 mls @ 60 mls/hr GT .[id number] [facility] Last Admin: 06/30/20 09:07 Dose: 60 mls/hr Documented by: Ampicillin Sodium/Sulbactam (Sodium 3 gm/ Sodium Chloride) 112 mls @ 150 mls/hr IV Q12 [facility] Stop: 07/03/20 10:45 Last Infusion: 06/30/20 12:16 Dose: Infused Documented by: Propofol (Diprivan) 1,000 mg in 100 mls @ 6.57 mls/hr CONT INF .Q12H [facility]IM; Pro tocol Last Titration: 06/30/20 12:16 Dose: 20.09 mcg/kg/min, 13.2 mls/hr Documented by: Insulin Human Lispro (Insulin Lispro 100 Unit/Ml Insuln.Pen) 0 unit SC Q6 [facility]; Protocol Last Admin: 06/30/20 11:20 Dose: 1 units Documented by: L-Arginine/L-Glutamine/Calcium HMB (Rosendo (Unflavored) Packet) 1 packet NG BIDCM [facility] Last Admin: 06/30/20 09:10 Dose: 1 packet Documented by: Metoprolol Tartrate (Metoprolol Tartrate 25 Mg Tablet) 12.5 mg PO BID [facility] Last Admin: 06/30/20 09:15 Dose: 12.5 mg Documented by: Polyethylene Glycol (Polyethylene Glycol 3350 17 Gm Packet) 17 gm NG DAILY [facility] Last Admin: 06/30/20 09:15 Dose: Not Given Documented by: Prednisone (Prednisone 20 Mg Tablet) 40 mg NG DAILY@0800 [facility] Last Admin: 06/30/20 09:14 Dose: 40 mg Documented by: Quetiapine Fumarate (Quetiapine 25 Mg Tablet) 50 mg PO BID [facility] Last Admin: 06/30/20 09:19 Dose: 50 mg Documented by: Senna/Docusate Sodium (Senna/Docusate Sodium 1 Tablet) 2 tablet NG BID [facility] Last Admin: 06/30/20 09:17 Dose: Not Given Documented by: Sodium Chloride (0.9% Saline Lock 10 Ml Syringe) 10 - 40 ml IV UD PRN PRN Reason: Open End PICC Flush Last Admin: 06/27/20 06:27 Dose: 40 ml Documented by: Sodium Chloride (0.9 % Nacl (Sterile) Posiflush 10 Ml) 10 - 40 ml IV UD PRN PRN Reason: Port access or dressing change Last Admin: 06/30/20 01:24 Dose: 40 ml Documented by: Sodium Chloride (0.9% Saline Lock 10 Ml Syringe) 10 - 40 ml IV UD PRN PRN Reason: SALINE FLUSH Medical Necessity - Tobacco Use Smoking Status: Former smoker Assessment/Plan All Active Problems (Last Reviewed 06/24/20 @ 12:[address] Armond Killian MD) Hypoxemia (Acute) Cardiopulmonary arrest (Acute) Ventricular tachycardia (Acute) Ventricular fibrillation (Acute) Myocardial infarction (Acute) Acute heart failure (Acute) Chronic combined systolic and diastolic CHF (congestive heart failure) (Acute) 1- EMMANUEL on CKD stage 3. Baseline SCr ~ 1.14 mg/dl EMMANUEL is likely ischemic ATN. SCr peaked at 3.2 mg/dL on 06/26/20. SCr is better today. Renal function is improving despite diuresis. Will continue to evaluate the need of HAM PASSER daily. No need for HAM PASSER today. Keep MAP > 65. 2- S/P CPA with prolonged resuscitation Off pressor. hemodynamically stable. Supportive management as per buyer internship. 3- Acute LA . Cardiology is following. 4- Acute hypoxic respiratory failure from aspiration and LA. Plan has been tolerating diuresis ok. however sodium and bicarbonate are higher. remains on high FiO2. ok to cut back on lasix
[2020-06-30 17:01] LABS: Bedside Glucose 169 mg/dL (70-110)
[2020-06-30 22:16] LABS: Partial Thromboplast Time 76.9 Seconds (24.1-36.2)
[2020-07-01] VITALS (39 sets, daily range): BP systolic 86–118; BP diastolic 58–71; PULSE 66–101; RESP 14–20; TEMP 36.8–38.5; O2SAT 90–99
[2020-07-01 01:11] LABS: Bedside Glucose 119 mg/dL (70-110)
[2020-07-01] MEDS: Ipratropium/Albuterol Sulfate 3 ML AMPUL.NEB INHALATION ×6 (02:24→23:13)
[2020-07-01] MEDS: Propofol 10MG/Ml 1,000 MG/100 ML Bottle 13.1 MG CONT INF (04:53)
[2020-07-01] MEDS: Vital High Protein 1,000 ML 60 ML GT ×3 (04:54→17:27)
[2020-07-01 05:04] LABS: Absolute Lymphocyte Count 2.08 X10^3/uL (0.83-4.51); Absolute Neutrophil Count 13.9 X10^3/uL (2.0-7.7); Basophil# 0.07 X10^3/uL; Basophil% 0.4 % (0-1); Eosinophil# 0.28 X10^3/uL; Eosinophils% 1.5 % (0-5); Hematocrit 29.7 % (37-47); Hemoglobin 8.8 g/dL (12.0-15.0); Lymphocyte # 2.08 X10^3/ul (4.0); Lymphocyte % 11.4 % (19-41); Mean Corp Hgb Conc 29.6 g/dL (32-36); Mean Corpuscular Hgb 29.9 pg (27.0-32.0); Mean Platelet Vol. 10.5 fl (6.2-12.0); Monocyte% 6.6 % (0-10); NRBC Flagged by Analyzer 0.4 % (0-5); Neutrophil # 13.86 X10^3/uL (2.7-7.7); Neutrophil % 75.6 % (47-70); Platelet Count 343 K/mm3 (150-450); RBC Distribution Width CV 14.9 % (11.6-14.6); RBC Distribution Width SD 53.8 fl (35.1-43.9); Red Blood Count 2.94 M/mm3 (4.2-5.4); White Blood Count 18.3 K/mm3 (4.4-11.0)
[2020-07-01 05:23] LABS: Anion Gap 3 (5-15); BUN 86 mg/dL (7-18); BUN/Creat Ratio 64.2 RATIO (10-20); Calcium,Total 9.1 mg/dL (8.5-10.1); Chloride 107 mmol/L (98-107); Creatinine, Serum 1.34 mg/dL (0.55-1.02); EST Glomerular Filtration Rate 42 mL/min (>60); Est Glom Filt Rate - Afr Amer 50 mL/min (>60); Estimated Creatinine Clearance 34.22 ml/min; Glucose 107 mg/dL (74-106); Potassium 3.7 mmol/L (3.5-5.1); Sodium Level 150 mmol/L (136-145)
--- NOTE | 2020-07-01 05:30 | RAD_ITS ---
HISTORY: Congestive heart failure ADDITIONAL HISTORY: None provided. EXAMINATION/TECHNIQUE: XR Chest 1 View AP/PA Number of images including paperwork: 1 COMPARISON: 06/26/2020 FINDINGS: LUNGS AND PLEURA: Left pleural effusion and retrocardiac opacity. Decrease in right basilar opacity. CARDIAC SILHOUETTE: Stable. MEDIASTINUM AND REMY: Stable. UPPER ABDOMEN: Unremarkable. SKELETON AND SOFT TISSUES: No acute skeletal findings. OTHER DEVICES AND HARDWARE: Endotracheal tube terminates above the dianne. Gastric tube extends into the stomach, tip below the inferior margin of the film. RAD/Chest 1 View (Portable) IMPRESSION: Mild increase in left basilar atelectasis versus infiltrate. Small left pleural effusion. Decrease in right basilar opacity. at 0522 Reported and signed by: Katerin Steward MD Electronically Signed: Katerin Steward MD at 5:22 EDT Tel , Service support ,
[2020-07-01 05:53] LABS: Partial Thromboplast Time 94.2 Seconds (24.1-36.2)
[2020-07-01] MEDS: HEPARIN/D5w 25,000 UNITS 25,000 UNITS/250 ML IV.SOLN. 13 UNITS IV (05:55)
[2020-07-01] MEDS: TITRATION PARAMETER CHANGE 1 EACH IV (05:58)
[2020-07-01 06:06] LABS: Bedside Glucose 126 mg/dL (70-110)
--- NOTE | 2020-07-01 07:15 | PN_ITS ---
Subjective: Patient with some ectopy and fever noted overnight. Patient noted to have bigeminy. Stool was negative for C. difficile, so contact precautions were discontinued. Patient is still requiring high FiO2 and PEEP requirements, but this does appear to be slowly improving. Patient does nod her head appropriately. General: - - Intubated and sedated. Good vent synchrony. HEENT: Atraumatic, PERRLA, EOMI, Normocephalic, - - No scleral icterus or injection noted Oral: Moist Mucosa, No Gingival or Mucosal Lesions/ Ulcerations Neck: Supple, No JVD, No Nodes, Trachea Midline Lungs: No wheeze - Bilateral, Diminished, Rhonchi, - - Symmetric expansion. Cardiovascular: Regular rate, Regular Rhythm, Normal S1, Normal S2, No murmurs, No rub noted, No Gallop Abdomen: Bowel Sounds Present, Soft, Non Tender, Non-Distended, Obese Extremities: No clubbing, No cyanosis, Edema Skin: - - No change compared to previous Musculoskeletal: No Tenderness to Palpation of Joints or Extremities Lymphatic: No Cervical, Supraclavicular, or Inguinal Adenopathy Neurological: - - No change compared to previous Psych/Mental Status: Flat Affect Vital Signs Temp Pulse Resp BP Pulse Ox 36.8 C 85 14 94/59 L 93 07/01/20 06:00 07/01/20 07:11 07/01/20 07:11 07/01/20 06:00 07/01/20 07:11 Oxygen Flow Rate (L/min) 60 Oxygen Delivery Method Mechanical Ventilator Weight: 108.5 kg Body Mass Index (BMI) 39.9 Intake and Output for Last 24 Hours 06/29/20 06/30/20 07/01/20 23:59 23:59 23:59 Intake Total 2450.52 / 2468.00 2982.16 / 3002.86 566.14 / 566.14 Output Total 5075 / 5075 4750 / 4750 750 / 750 Balance -2624.48 / -2607.00 -1767.84 / -1747.14 -183.86 / -183.86 Labs (Last 48 Hours) 06/29/20 06/29/20 06/29/20 07:08 11:06 11:20 WBC RBC Hgb Hct MCV MCH MCHC RDW Std Deviation RDW Coeff of Ankit Plt Count MPV Immature Gran % (Auto) Neut % (Auto) Lymph % (Auto) Morris % (Auto) Eos % (Auto) Baso % (Auto) Absolute Neuts (auto) Absolute Lymphs (auto) Nucleated RBC % APTT 48.7 H Sodium Potassium Chloride Carbon Dioxide Anion Gap BUN Creatinine Estim Creat Clear Calc Est GFR (MDRD) Af Amer Est GFR (MDRD) Non-Af BUN/Creatinine Ratio Glucose Calcium Random Vancomycin POC Glucose 99 167 H 06/29/20 06/29/20 06/29/20 15:10 17:13 21:15 WBC RBC Hgb Hct MCV MCH MCHC RDW Std Deviation RDW Coeff of Ankit Plt Count MPV Immature Gran % (Auto) Neut % (Auto) Lymph % (Auto) Morris % (Auto) Eos % (Auto) Baso % (Auto) Absolute Neuts (auto) Absolute Lymphs (auto) Nucleated RBC % APTT 61.4 H Sodium Potassium Chloride Carbon Dioxide Anion Gap BUN Creatinine Estim Creat Clear Calc Est GFR (MDRD) Af Amer Est GFR (MDRD) Non-Af BUN/Creatinine Ratio Glucose Calcium Random Vancomycin 20.7 H POC Glucose 152 H 06/30/20 06/30/20 06/30/20 01:16 03:35 03:35 WBC 17.3 H RBC 2.97 L Hgb 8.7 L Hct 29.8 L MCV 100.3 H MCH 29.3 MCHC 29.2 L RDW Std Deviation 54.0 H RDW Coeff of Ankit 14.9 H Plt Count 348 MPV 11.0 Immature Gran % (Auto) Neut % (Auto) Lymph % (Auto) Morris % (Auto) Eos % (Auto) Baso % (Auto) Absolute Neuts (auto) Absolute Lymphs (auto) Nucleated RBC % APTT Sodium 149 H Potassium 4.0 Chloride 106 Carbon Dioxide 39.0 H Anion Gap 4 L BUN 99 H Creatinine 1.69 H Estim Creat Clear Calc 27.13 Est GFR (MDRD) Af Amer 39 L Est GFR (MDRD) Non-Af 32 L BUN/Creatinine Ratio 58.6 H Glucose 113 H Calcium 8.8 Random Vancomycin POC Glucose 106 06/30/20 06/30/20 06/30/20 03:35 06:24 11:19 WBC RBC Hgb Hct MCV MCH MCHC RDW Std Deviation RDW Coeff of Ankit Plt Count MPV Immature Gran % (Auto) Neut % (Auto) Lymph % (Auto) Morris % (Auto) Eos % (Auto) Baso % (Auto) Absolute Neuts (auto) Absolute Lymphs (auto) Nucleated RBC % APTT 69.8 H Sodium Potassium Chloride Carbon Dioxide Anion Gap BUN Creatinine Estim Creat Clear Calc Est GFR (MDRD) Af Amer Est GFR (MDRD) Non-Af BUN/Creatinine Ratio Glucose Calcium Random Vancomycin POC Glucose 99 154 H 06/30/20 06/30/20 06/30/20 11:20 16:56 21:52 WBC RBC Hgb Hct MCV MCH MCHC RDW Std Deviation RDW Coeff of Ankit Plt Count MPV Immature Gran % (Auto) Neut % (Auto) Lymph % (Auto) Morris % (Auto) Eos % (Auto) Baso % (Auto) Absolute Neuts (auto) Absolute Lymphs (auto) Nucleated RBC % APTT 51.7 H 76.9 H Sodium Potassium Chloride Carbon Dioxide Anion Gap BUN Creatinine Estim Creat Clear Calc Est GFR (MDRD) Af Amer Est GFR (MDRD) Non-Af BUN/Creatinine Ratio Glucose Calcium Random Vancomycin POC Glucose 169 H 07/01/20 07/01/20 07/01/20 01:04 04:58 04:58 WBC 18.3 H RBC 2.94 L Hgb 8.8 L Hct 29.7 L MCV 101.0 H MCH 29.9 MCHC 29.6 L RDW Std Deviation 53.8 H RDW Coeff of Ankit 14.9 H Plt Count 343 MPV 10.5 Immature Gran % (Auto) 4.500 H Neut % (Auto) 75.6 H Lymph % (Auto) 11.4 L Morris % (Auto) 6.6 Eos % (Auto) 1.5 Baso % (Auto) 0.4 Absolute Neuts (auto) 13.9 H Absolute Lymphs (auto) 2.08 Nucleated RBC % 0.4 APTT Sodium 150 H Potassium 3.7 Chloride 107 Carbon Dioxide 40.0 H Anion Gap 3 L BUN 86 H Creatinine 1.34 H Estim Creat Clear Calc 34.22 Est GFR (MDRD) Af Amer 50 L Est GFR (MDRD) Non-Af 42 L BUN/Creatinine Ratio 64.2 H Glucose 107 H Calcium 9.1 Random Vancomycin POC Glucose 119 H 07/01/20 07/01/20 04:58 05:53 WBC RBC Hgb Hct MCV MCH MCHC RDW Std Deviation RDW Coeff of Ankit Plt Count MPV Immature Gran % (Auto) Neut % (Auto) Lymph % (Auto) Morris % (Auto) Eos % (Auto) Baso % (Auto) Absolute Neuts (auto) Absolute Lymphs (auto) Nucleated RBC % APTT 94.2 H* Sodium Potassium Chloride Carbon Dioxide Anion Gap BUN Creatinine Estim Creat Clear Calc Est GFR (MDRD) Af Amer Est GFR (MDRD) Non-Af BUN/Creatinine Ratio Glucose Calcium Random Vancomycin POC Glucose 126 H Microbiology 06/30/20 14:00 Stool C. difficile DNA Amplification - Final 06/25/20 09:06 Blood Culture (Wb) - Central Line Blood Culture - Final No growth in 5 days. 06/25/20 06:45 Blood Culture (Wb) - Anticubital Right Blood Culture - Final No growth in 5 days. Clinical Impression(s) from Imaging Studies Chest X-Ray 07/01/20 05:30 IMPRESSION: Mild increase in left basilar atelectasis versus infiltrate. Small left pleural effusion. Decrease in right basilar opacity. at 0522 Reported and signed by: Katerin Steward MD Electronically Signed: Katerin Steward MD at 5:22 EDT Tel , Service support , Medical Necessity - Tobacco Use Smoking Status: Former smoker Assessment/Plan All Active Problems (Last Reviewed 06/24/20 @ 12:[address] Armond Killian MD) Hypoxemia (Acute) Cardiopulmonary arrest (Acute) Ventricular tachycardia (Acute) Ventricular fibrillation (Acute) Myocardial infarction (Acute) Acute heart failure (Acute) Chronic combined systolic and diastolic CHF (congestive heart failure) (Acute) RECOMMENDATIONS: 1. Continue to wean FiO2 and PEEP to maintain oxygen saturations at or above 90%. 2. Continue scheduled bronchodilator therapy and steroids. 3. Minimize sedation with a goal to maintain a RASS of -1 to 1. Continue scheduled Seroquel twice daily. 4. Continue appropriate GI prophylaxis, diuretics, tube feeds and antimic robials. 5. Wean PEEP and FiO2 as tolerated 6. Spontaneous breathing and awakening trials per protocol IMPRESSIONS: 1. Acute on chronic combined respiratory failure The patient presented to the emergency department from the TCU, after she apparently experienced an aspiration event leading to respiratory decompensation and worsening hypoxemia. There is concern that this hypoxemia may have precipitated an acute coronary event. The patient did suffer from cardiopulmonary arrest in the emergency department and did require intubation. Patient remains on high FiO2 requirements with PEEP. Patient appears to be responding to steroid and antibiotic therapy. Anticipate continuation for now at current levels until status stabilizes. Continue to wean FiO2 and PEEP as tolerated. 2. Status post cardiopulmonary arrest Clinical concern that hypoxemia may have precipitated cardiac decompensation. Cardiology is currently following to assist with management. At this time, we will plan to continue current supportive measures. The patient may require eventual cardiac catheterization, once medically stabilized. Anticipate continuing heparin drip until intervention can be addressed 3. Encephalopathy Although there was initial concern for possible anoxic brain injury, the patient has improved from a mentation standpoint. Not exclude an element of anoxic encephalopathy given prolonged recovery/resuscitation event. Plan to continue to minimize sedation as tolerated with a goal to maintain a RASS of -1 to 1. 4. Acute kidney injury Improving. Suspect a component of ischemic ATN in the setting of cardiopulmonary arrest. Continue to monitor urine output for now. No current indication for renal replacement therapy. Nephrology is currently following. 5. History of heart failure with preserved ejection fraction/paroxysmal atrial fibrillation Continue current supportive measures with additional medical intervention per cardiology recommendations. Continue heparin drip for now 6. Chronic pain syndrome/morbid obesity/hypertension/depression/anxiety/questionable COPD Complicates care, management, recovery and prognosis. Continue scheduled bronchodilator therapy. 7. Severe sepsis secondary to aspiration pneumonia versus sinusitis Patient has multiple etiologies for severe sepsis. Patient does have an aspiration pneumonia, but developed diarrhea and has an increasing leukocytosis overnight. C. difficile was negative. Patient also has an NG in place, so sinusitis could be leading to current findings. CODE status: Succussion of CODE status at length with Dr. Davis including difference between FULL code, DNR-CCA and DNR-CC status. Following discussions about the differences in these status, the patient's daughter requested DNR-CCA CODE STATUS. TIME: 34 minutes of critical care time, independent of procedures, was spent addressing the patient's acute on chronic combined respiratory failure, status post cardiopulmonary arrest, encephalopathy, history of heart failure, acute kidney injury, review of all data and collaboration with the care team. (5:45 AM to 6:45 AM) 9xxxx: [id number] Critical care first hour
[2020-07-01] MEDS: Aspirin 81 MG TAB.CHEW NG (09:02)
[2020-07-01] MEDS: predniSONE 20 MG Tablet 40 MG NG (09:02)
[2020-07-01] MEDS: Juven (unflavored) Packet 1 PACKET NG ×2 (09:02→17:27)
[2020-07-01] MEDS: Furosemide 40 MG/4 ML Vial IV (09:03)
[2020-07-01] MEDS: Chlorhexidine 15 ML PO ×2 (09:03→21:18)
[2020-07-01] MEDS: Metoprolol Tartrate 25 MG Tablet 12.5 MG PO ×2 (09:03→21:14)
[2020-07-01] MEDS: QUEtiapine 25 MG Tablet 50 MG PO ×2 (09:04→21:14)
[2020-07-01] MEDS: Famotidine 20 MG Tablet NG (09:05)
--- NOTE | 2020-07-01 09:30 | PN_ITS ---
Patient Problems: Active and Suspected Problems (Last Reviewed 06/24/20 @ 12:[address] Armond Killian MD) Hypoxemia (Acute) Cardiopulmonary arrest (Acute) Ventricular tachycardia (Acute) Ventricular fibrillation (Acute) Myocardial infarction (Acute) Acute heart failure (Acute) Chronic combined systolic and diastolic CHF (congestive heart failure) (Acute) Subjective: Intubated and sedated. Malathi febrile, however no new issues. Vitals/I&O's: Vital Signs Temp Pulse Resp BP Pulse Ox 98.7 F 85 16 99/60 93 07/01/20 07:41 07/01/20 09:03 07/01/20 07:41 07/01/20 09:03 07/01/20 07:41 Oxygen Flow Rate (L/min) 60 Oxygen Delivery Method Bi-pap Weight: 239 lb 3.225 oz Body Mass Index (BMI) 39.9 Intake and Output for Last 24 Hours 06/29/20 06/30/20 07/01/20 23:59 23:59 23:59 Intake Total 2450.52 / 2468.00 2982.16 / 3002.86 566.14 / 566.14 Output Total 5075 / 5075 4750 / 4750 750 / 750 Balance -2624.48 / -2607.00 -1767.84 / -1747.14 -183.86 / -183.86 General: - - Intubated and sedated HEENT: Atraumatic, PERRLA, Normocephalic Oral: Moist Mucosa Neck: Supple, No JVD Lungs: Clear to auscultation, Normal air movement, No rhonchi, No wheeze, No rales, Diminished Cardiovascular: Regular rate and rhythm, Normal S1, Normal S2, No murmurs Abdomen: Soft, Non-Distended, No Hepato-splenomegaly Extremities: No edema, Capillary Refill Less than 3 Seconds Skin: No rashes, No breakdown Neurological: - - Intubated and sedated Psych/Mental Status: - - Intubated and sedated Microbiology Past 72 Hours 06/30/20 14:00 Stool C. difficile DNA Amplification - Final 06/25/20 09:06 Blood Culture (Wb) - Central Line Blood Culture - Final No growth in 5 days. 06/25/20 06:45 Blood Culture (Wb) - Anticubital Right Blood Culture - Final No growth in 5 days. Laboratory Results 06/30/20 11:19: POC Glucose 154 H 06/30/20 11:20: APTT 51.7 H 06/30/20 16:56: POC Glucose 169 H 06/30/20 21:52: APTT 76.9 H 07/01/20 01:04: POC Glucose 119 H 07/01/20 04:58: WBC 18.3 H, RBC 2.94 L, Hgb 8.8 L, Hct 29.7 L, MCV 101.0 H, MCH 29.9, MCHC 29.6 L, RDW Std Deviation 53.8 H, RDW Coeff of Ankit 14.9 H, Plt Count 343, MPV 10.5, Immature Gran % (Auto) 4.500 H, Neut % (Auto) 75.6 H, Lymph % (Auto) 11.4 L, [place] % (Auto) 6.6, Eos % (Auto) 1.5, Baso % (Auto) 0.4, Absolute Neuts (auto) 13.9 H, Absolute Lymphs (auto) 2.08, Nucleated RBC % 0.4 07/01/20 04:58: Sodium 150 H, Potassium 3.7, Chloride 107, Carbon Dioxide 40.0 H , Anion Gap 3 L, BUN 86 H, Creatinine 1.34 H, Estim Creat Clear Calc 34.22, Est GFR (MDRD) Af Amer 50 L, Est GFR (MDRD) Non-Af 42 L, BUN/Creatinine Ratio 64.2 H , Glucose 107 H, Calcium 9.1 07/01/20 04:58: APTT 94.2 H* 07/01/20 05:53: POC Glucose 126 H Current Medications Acetaminophen (Acetaminophen 650 Mg/20 Ml Udc) 650 mg NG Q4H PRN PRN PRN Reason: temp>101.0 Last Admin: 06/30/20 11:49 Dose: 650 mg Documented by: Albuterol Sulfate (Albuterol 2.5 Mg/3 Ml Vial.Neb.) 2.5 mg INHALATION Q2H PRN PRN PRN Reason: SOB/Wheezing Albuterol/Ipratropium (Ipratropium/Albuterol Sulfate 3 Ml Ampul.Neb) 3 ml INHALATION Q4H.RT [facility] Last Admin: 07/01/20 07:11 Dose: 3 ml Documented by: Aspirin (Aspirin 81 Mg Tab.Chew) 81 mg NG DAILY@0800 [facility] Last Admin: 07/01/20 09:02 Dose: 81 mg Documented by: Chlorhexidine Gluconate (Chlorhexidine 15 Ml) 15 ml PO BID [facility] Last Admin: 07/01/20 09:03 Dose: 15 ml Documented by: Dextrose (Dextrose 50%-Water 25 Gm/50 Ml Disp.Syrin) 0 gm IV X1 PRN; Protocol PRN Reason: Hypoglycemia Famotidine (Famotidine 20 Mg Tablet) 20 mg NG DAILY [facility] Last Admin: 07/01/20 09:05 Dose: 20 mg Documented by: Furosemide (Furosemide 40 Mg/4 Ml Vial) 40 mg IV BID@1000,1800 [facility] Last Admin: 07/01/20 09:03 Dose: 40 mg Documented by: Glucagon (Glucagon 1 Mg/Ml Syringe) 1 mg IM .X1 PRN PRN Reason: Hypoglycemia Heparin Sodium (Beef Lung) (Heparin Pf Lock 10 Units/Ml 50 Units/5 Ml Syringe) 50 units IV UD PRN PRN Reason: PICC Line Heparin Flush Heparin Sodium (Porcine) (Heparin Injection (Vial) 5,000 Unit/Ml Vial) 0 unit IV UD PRN; Protocol PRN Reason: dose adjustment Last Admin: 06/27/20 10:08 Dose: 1,000 unit Documented by: Heparin Sodium/Dextrose () 25,000 units in 250 mls @ 10 mls/hr IV .Q25H [facility]; Protocol Last Titration: 07/01/20 06:59 Dose: 1,100 units/hr, 11 mls/hr Documented by: Sodium Chloride () 250 mls @ 15 mls/hr IV .[id number] PRN PRN Reason: Saline Flush Last Infusion: 06/28/20 21:35 Dose: Infused Documented by: Sodium Chloride () 250 mls @ 15 mls/hr IV .[id number] PRN PRN Reason: Additional IVPB Infusion Fentanyl Citrate 1,000 mcg/ (Sodium Chloride) 100 mls @ 5 mls/hr CONT INF .Q20H [facility]; Protocol Last Titration: 07/01/20 06:00 Dose: 125 mcg/hr, 12.5 mls/hr Documented by: Enteral Nutritional Formula (Vital High Protein) 1,000 mls @ 60 mls/hr GT .[id number] [facility] Last Admin: 07/01/20 04:54 Dose: 60 mls/hr Documented by: Ampicillin Sodium/Sulbactam (Sodium 3 gm/ Sodium Chloride) 112 mls @ 150 mls/hr IV Q12 [facility] Stop: 07/03/20 10:45 Last Infusion: 06/30/20 22:58 Dose: Infused Documented by: Propofol (Diprivan) 1,000 mg in 100 mls @ 6.51 mls/hr CONT INF .Q12H [facility]; Protocol Last Titration: 07/01/20 06:00 Dose: 20 mcg/kg/min, 13 mls/hr Documented by: Insulin Human Lispro (Insulin Lispro 100 Unit/Ml Insuln.Pen) 0 unit SC Q6 [facility]; Protocol Last Admin: 07/01/20 05:58 Dose: Not Given Documented by: L-Arginine/L-Glutamine/Calcium HMB (Rosendo (Unflavored) Packet) 1 packet NG BIDCM [facility] Last Admin: 07/01/20 09:02 Dose: 1 packet Documented by: Metoprolol Tartrate (Metoprolol Tartrate 25 Mg Tablet) 12.5 mg PO BID [facility] Last Admin: 07/01/20 09:03 Dose: 12.5 mg Documented by: Polyethylene Glycol (Polyethylene Glycol 3350 17 Gm Packet) 17 gm NG DAILY [facility] Last Admin: 07/01/20 09:05 Dose: Not Given Documented by: Prednisone (Prednisone 20 Mg Tablet) 40 mg NG DAILY@0800 [facility] Last Admin: 07/01/20 09:02 Dose: 40 mg Documented by: Quetiapine Fumarate (Quetiapine 25 Mg Tablet) 50 mg PO BID [facility] Last Admin: 07/01/20 09:04 Dose: 50 mg Documented by: Senna/Docusate Sodium (Senna/Docusate Sodium 1 Tablet) 2 tablet NG BID [facility] Last Admin: 07/01/20 09:05 Dose: Not Given Documented by: Sodium Chloride (0.9% Saline Lock 10 Ml Syringe) 10 - 40 ml IV UD PRN PRN Reason: Open End PICC Flush Last Admin: 06/27/20 06:27 Dose: 40 ml Documented by: Sodium Chloride (0.9 % Nacl (Sterile) Posiflush 10 Ml) 10 - 40 ml IV UD PRN PRN Reason: Port access or dressing change Last Admin: 06/30/20 22:22 Dose: 20 ml Documented by: Sodium Chloride (0.9% Saline Lock 10 Ml Syringe) 10 - 40 ml IV UD PRN PRN Reason: SALINE FLUSH STROKE Vital Signs/Narrative: Vital Signs Temp Pulse Resp BP BP Pulse Ox 07/01/20 09:03 85 99/60 07/01/20 07:41 98.7 F 84 16 102/63 93 07/01/20 07:40 84 07/01/20 07:11 85 14 93 07/01/20 06:00 98.3 F 80 20 H 94/59 L 92 Medical Necessity - Tobacco Use Smoking Status: Former smoker Assessment/Plan All Active Problems (Last Reviewed 06/24/20 @ 12:[address] Armond Killian MD) Hypoxemia (Acute) Cardiopulmonary arrest (Acute) Ventricular tachycardia (Acute) Ventricular fibrillation (Acute) Myocardial infarction (Acute) Acute heart failure (Acute) Chronic combined systolic and diastolic CHF (congestive heart failure) (Acute) 1. Cardiopulmonary arrest secondary to acute UT secondary to acute on chronic hypoxic respiratory failure secondary to aspiration pneumonia/acute metabolic encephalopathy/EMMANUEL likely ATN -Remains intubated and sedated, continue to wean FiO2 and sedation -Continue with Unasyn -Continue with prednisone for possible history of COPD -Appreciate cardiology input, continue with heparin -EF of 45% with mild segmental systolic dysfunction -May need to hold her Lasix given her rising bicarb and sodium as well as chloride. She is down almost 2 L -Renal function peaked at 3.24, improved to 1.34 today and her BUN is 86. She is making urine, appreciate nephrology assistance 2. Acute on chronic combined CHF/paroxysmal A. fib/HTN/morbid obesity -appreciate cardiology's assistance -EF of 45% -We will continue with her rate control medication metoprolol -BMI of 40.6 we will discuss weight reduction following extubation 3. History of osteomyelitis -Patient amputation of her right second toe on 06/07/[address] Montilla -She was discharged to TCU on Rocephin, continue with Unasyn for now for her MSSA 4. Depression/anxiety - we will hold her home medications pending extubation -Continue with Seroquel 5. Diarrhea -We will check a C. difficile -C. difficile was negative, diarrhea resolved DVT: Heparin drip Inpatient E&M: [id number] Subs Hosp L2
[2020-07-01 11:40] LABS: Bedside Glucose 141 mg/dL (70-110)
[2020-07-01] MEDS: Propofol 10MG/Ml 1,000 MG/100 ML Bottle 13 MG CONT INF ×2 (11:40→17:26)
--- NOTE | 2020-07-01 12:57 | CHAPLAIN ---
Type of Pastoral Visit ___ Initial Visit ___ Follow-up Visit ___ On-call Visit ___ General Patient Visit ___ Spiritual Assessment ___ Family Conference ___ Bereavement ___ Rapid Response ___ Code Blue ___ Other (describe below) Pastoral Care Referral From ___ Patient ___ Family ___ Nurse ___ Physician ___ Preparing Box Tender ___ Senior Policy Associate ___ Other (describe below) Sacrament/Intervention ___ Active listening ___ Anointing ___ Methodist ___ Bereavement ___ Communion ___ Diane exploration ___ ___ Life review ___ Prayer ___ Reconciliation ___ Sacrament of Sick ___ Supportive presence ___ Wedding ___ Other (describe below) Pastoral Comments patient is still on vent and unable to talk; silent prayers at doorway for patient
--- NOTE | 2020-07-01 13:23 | PCM.PN.CARD ---
Subjectve: The patient remains in the ICU. She remains mechanically intubated/ventilated. Objective: Vital Signs Temp Pulse Resp BP Pulse Ox 100.1 F H 81 16 86/62 L 91 07/01/20 12:00 07/01/20 12:00 07/01/20 12:00 07/01/20 12:00 07/01/20 12:00 Oxygen Flow Rate (L/min) 60 Oxygen Delivery Method Mechanical Ventilator Weight: 239 lb 3.225 oz Body Mass Index (BMI) 39.9 Intake and Output for Last 24 Hours 06/29/20 06/30/20 07/01/20 23:59 23:59 23:59 Intake Total 2450.52 / 2468.00 2982.16 / 3002.86 1036.64 / 1036.64 Output Total 5075 / 5075 4750 / 4750 1550 / 1550 Balance -2624.48 / -2607.00 -1767.84 / -1747.14 -513.36 / -513.36 Lungs: Rhonchi Cardiovascular: Regular Rhythm, Normal S1, Normal S2 Abdomen: Bowel Sounds Present, Soft Extremities: No edema 06/30/20 21:52: APTT 76.9 H 07/01/20 04:58: WBC 18.3 H, RBC 2.94 L, Hgb 8.8 L, Hct 29.7 L, MCV 101.0 H, MCH 29.9, MCHC 29.6 L, Plt Count 343, MPV 10.5, Immature Gran % (Auto) 4.500 H, Neut % (Auto) 75.6 H, Lymph % (Auto) 11.4 L, [place] % (Auto) 6.6, Eos % (Auto) 1.5, Baso % (Auto) 0.4, Absolute Neuts (auto) 13.9 H, Nucleated RBC % 0.4 07/01/20 04:58: Sodium 150 H, Potassium 3.7, Chloride 107, Carbon Dioxide 40.0 H, Anion Gap 3 L, BUN 86 H, Creatinine 1.34 H, Est GFR (MDRD) Af Amer 50 L, Est GFR (MDRD) Non-Af 42 L, BUN/Creatinine Ratio 64.2 H, Glucose 107 H, Calcium 9.1 07/01/20 04:58: APTT 94.2 H* Rhythm: Sinus rhythm Medical Necessity - Tobacco Use Smoking Status: Former smoker Assessment/Plan 1. Acute cardiopulmonary arrest The patient experienced an acute cardiopulmonary arrest. There is concerns as to whether or not this may have been initiated by aspiration pneumonia and hypoxemia. According to the medical records available for review this arrest was a prolonged event. She was evaluated by interventional cardiology at the time who did not recommend urgent/emergent diagnostic cardiac catheterization. This was pending the outcome of her cardiopulmonary arrest, neurologic status, multiple comorbidities, etc. The patient has been evaluated by [facility] cardiology in the past. The information obtained is as noted in her previous cardiology progress note. At the present time the patient is in the ICU. She remains mechanically intubated and ventilated. She is going to continue supportive care at this time. Depending upon the outcome of her multiple medical issues she can be considered for future evaluation in the cardiac catheterization laboratory. 2. Paroxysmal atrial fibrillation/ventricular tachycardia The patient has, per previous medical records from 2018, reports of paroxysmal atrial fibrillation as well as paroxysmal ventricular tachycardia. She has been evaluated for these issues at [facility]. It appears she was treated medically and underwent EPS/RFA of PVCs. At the moment he appears to be remaining in sinus rhythm. She will continue to have her rate and rhythm monitored. She is on low-dose beta-bairon. Hopefully her blood pressure will allow her to tolerate this. If not then it will need to be discontinued. 3. CHF: Acute systolic She has a history of CHF. In the past this was reported as combined systolic and diastolic. There are concerns at this time she may have experienced, based on her event, an episode of acute systolic CHF. She remains in the ICU mechanically intubated and ventilated. She remains on IV diuretics. It may need to be adjusted over time based upon her underlying hemodynamics and renal function. She does not appear to have any obvious ongoing lower extremity peripheral pitting edema at this time. Her creatinine level appears to be improving. 4. Hypotension Her blood pressure remains somewhat low. Again this may impact her medications. She is continuing evaluation care per pulmonology/critical care medicine. 5. COPD The patient has a history of COPD. She will need to continue evaluation care per internal medicine and pulmonology. 7. Obstructive sleep apnea The patient has per previous records a history of obstructive sleep apnea for which she has been reported is noncompliant with follow-up and care. She will need continued valuation care by her primary care physicians. 8. Obesity The patient has been reported as being obese in the past and currently. She apparently has been counseled in the past regarding diet and activity, etc., to try and bring her weight under better control. 9. Renal insufficiency Her creatinine has improved yet remains somewhat elevated. This note was generated using a voice recognition system and there may be incorrect words, spelling or punctuation that were not noted when reviewing the office note prior to saving.
--- NOTE | 2020-07-01 14:01 | PCM.PN.REN ---
Patient Problems: Active and Suspected Problems (Last Reviewed 06/24/20 @ 12:[address] Armond Killian MD) Hypoxemia (Acute) Cardiopulmonary arrest (Acute) Ventricular tachycardia (Acute) Ventricular fibrillation (Acute) Myocardial infarction (Acute) Acute heart failure (Acute) Chronic combined systolic and diastolic CHF (congestive heart failure) (Acute) Subjective: no new events - Physical Exam Vitals/I&O's: Vital Signs Temp Pulse Resp BP Pulse Ox 100.4 F H 92 18 87/66 L 92 07/01/20 13:00 07/01/20 13:00 07/01/20 13:00 07/01/20 13:00 07/01/20 13:00 Oxygen Flow Rate (L/min) 60 Oxygen Delivery Method Mechanical Ventilator Weight: 108.5 kg Body Mass Index (BMI) 39.9 Intake and Output for Last 24 Hours 06/29/20 06/30/20 07/01/20 23:59 23:59 23:59 Intake Total 2450.52 / 2468.00 2982.16 / 3002.86 1208.64 / 1208.64 Output Total 5075 / 5075 4750 / 4750 1550 / 1550 Balance -2624.48 / -2607.00 -1767.84 / -1747.14 -341.36 / -341.36 HEENT: Atraumatic, PERRLA, EOMI, Normocephalic Neck: Supple, No JVD, Negative Carotid Bruits Lungs: Clear to auscultation, Normal air movement Cardiovascular: Regular rate, No murmurs Abdomen: Bowel Sounds Present, Soft, Non Tender Extremities: No edema, Capillary Refill Less than 3 Seconds Skin: No rashes, No breakdown Musculoskeletal: No Tenderness to Palpation of Joints or Extremities Neurological: Cranial nerves II-XII grossly intact Microbiology Past 72 Hours 06/30/20 14:00 Stool C. difficile DNA Amplification - Final 06/25/20 09:06 Blood Culture (Wb) - Central Line Blood Culture - Final No growth in 5 days. 06/25/20 06:45 Blood Culture (Wb) - Anticubital Right Blood Culture - Final No growth in 5 days. Laboratory Results 06/30/20 16:56: POC Glucose 169 H 06/30/20 21:52: APTT 76.9 H 07/01/20 01:04: POC Glucose 119 H 07/01/20 04:58: WBC 18.3 H, RBC 2.94 L, Hgb 8.8 L, Hct 29.7 L, MCV 101.0 H, MCH 29.9, MCHC 29.6 L, RDW Std Deviation 53.8 H, RDW Coeff of Ankit 14.9 H, Plt Count 343, MPV 10.5, Immature Gran % (Auto) 4.500 H, Neut % (Auto) 75.6 H, Lymph % (Auto) 11.4 L, [place] % (Auto) 6.6, Eos % (Auto) 1.5, Baso % (Auto) 0.4, Absolute Neuts (auto) 13.9 H, Absolute Lymphs (auto) 2.08, Nucleated RBC % 0.4 07/01/20 04:58: Sodium 150 H, Potassium 3.7, Chloride 107, Carbon Dioxide 40.0 H, Anion Gap 3 L, BUN 86 H, Creatinine 1.34 H, Estim Creat Clear Calc 34.22, Est GFR (MDRD) Af Amer 50 L, Est GFR (MDRD) Non-Af 42 L, BUN/Creatinine Ratio 64.2 H, Glucose 107 H, Calcium 9.1 07/01/20 04:58: APTT 94.2 H* 07/01/20 05:53: POC Glucose 126 H 07/01/20 11:35: POC Glucose 141 H Current Medications Acetaminophen (Acetaminophen 650 Mg/20 Ml Udc) 650 mg NG Q4H PRN PRN PRN Reason: temp>101.0 Last Admin: 06/30/20 11:49 Dose: 650 mg Documented by: Albuterol Sulfate (Albuterol 2.5 Mg/3 Ml Vial.Neb.) 2.5 mg INHALATION Q2H PRN PRN PRN Reason: SOB/Wheezing Albuterol/Ipratropium (Ipratropium/Albuterol Sulfate 3 Ml Ampul.Neb) 3 ml INHALATION Q4H.RT [facility] Last Admin: 07/01/20 10:46 Dose: 3 ml Documented by: Apixaban (Apixaban 5 Mg Tablet) 5 mg NG BID [facility] Aspirin (Aspirin 81 Mg Tab.Chew) 81 mg NG DAILY@0800 [facility] Last Admin: 07/01/20 09:02 Dose: 81 mg Documented by: Chlorhexidine Gluconate (Chlorhexidine 15 Ml) 15 ml PO BID [facility] Last Admin: 07/01/20 09:03 Dose: 15 ml Documented by: Dextrose (Dextrose 50%-Water 25 Gm/50 Ml Disp.Syrin) 0 gm IV X1 PRN; Protocol PRN Reason: Hypoglycemia Famotidine (Famotidine 20 Mg Tablet) 20 mg NG DAILY [facility] Last Admin: 07/01/20 09:05 Dose: 20 mg Documented by: Furosemide (Furosemide 40 Mg/4 Ml Vial) 40 mg IV DAILY [facility] Glucagon (Glucagon 1 Mg/Ml Syringe) 1 mg IM .X1 PRN PRN Reason: Hypoglycemia Heparin Sodium (Beef Lung) (Heparin Pf Lock 10 Units/Ml 50 Units/5 Ml Syringe) 50 units IV UD PRN PRN Reason: PICC Line Heparin Flush Sodium Chloride () 250 mls @ 15 mls/hr IV .[id number] PRN PRN Reason: Saline Flush Last Infusion: 06/28/20 21:35 Dose: Infused Documented by: Sodium Chloride () 250 mls @ 15 mls/hr IV .[id number] PRN PRN Reason: Additional IVPB Infusion Fentanyl Citrate 1,000 mcg/ (Sodium Chloride) 100 mls @ 5 mls/hr CONT INF .Q20H [facility]; Protocol Last Titration: 07/01/20 06:00 Dose: 125 mcg/hr, 12.5 mls/hr Documented by: Enteral Nutritional Formula (Vital High Protein) 1,000 mls @ 60 mls/hr GT .[id number] [facility] Last Admin: 07/01/20 04:54 Dose: 60 mls/hr Documented by: Propofol (Diprivan) 1,000 mg in 100 mls @ 6.51 mls/hr CONT INF .Q12H [facility]; Protocol Last Admin: 07/01/20 11:40 Dose: 20 mcg/kg/min, 13 mls/hr Documented by: Ampicillin Sodium/Sulbactam (Sodium 3 gm/ Sodium Chloride) 112 mls @ 150 mls/hr IV Q8 [facility] Stop: 07/02/20 22:01 Insulin Human Lispro (Insulin Lispro 100 Unit/Ml Insuln.Pen) 0 unit SC Q6 [facility]; Protocol Last Admin: 07/01/20 11:40 Dose: Not Given Documented by: L-Arginine/L-Glutamine/Calcium HMB (Rosendo (Unflavored) Packet) 1 packet NG BIDCM [facility] Last Admin: 07/01/20 09:02 Dose: 1 packet Documented by: Metoprolol Tartrate (Metoprolol Tartrate 25 Mg Tablet) 12.5 mg PO BID [facility] Last Admin: 07/01/20 09:03 Dose: 12.5 mg Documented by: Polyethylene Glycol (Polyethylene Glycol 3350 17 Gm Packet) 17 gm NG DAILY [facility] Last Admin: 07/01/20 09:05 Dose: Not Given Documented by: Prednisone (Prednisone 20 Mg Tablet) 40 mg NG DAILY@0800 [facility] Last Admin: 07/01/20 09:02 Dose: 40 mg Documented by: Quetiapine Fumarate (Quetiapine 25 Mg Tablet) 50 mg PO BID [facility] Last Admin: 07/01/20 09:04 Dose: 50 mg Documented by: Senna/Docusate Sodium (Senna/Docusate Sodium 1 Tablet) 2 tablet NG BID [facility] Last Admin: 07/01/20 09:05 Dose: Not Given Documented by: Sodium Chloride (0.9% Saline Lock 10 Ml Syringe) 10 - 40 ml IV UD PRN PRN Reason: Open End PICC Flush Last Admin: 06/27/20 06:27 Dose: 40 ml Documented by: Sodium Chloride (0.9 % Nacl (Sterile) Posiflush 10 Ml) 10 - 40 ml IV UD PRN PRN Reason: Port access or dressing change Last Admin: 06/30/20 22:22 Dose: 20 ml Documented by: Sodium Chloride (0.9% Saline Lock 10 Ml Syringe) 10 - 40 ml IV UD PRN PRN Reason: SALINE FLUSH Medical Necessity - Tobacco Use Smoking Status: Former smoker Assessment/Plan All Active Problems (Last Reviewed 06/24/20 @ 12:[address] Armond Killian MD) Hypoxemia (Acute) Cardiopulmonary arrest (Acute) Ventricular tachycardia (Acute) Ventricular fibrillation (Acute) Myocardial infarction (Acute) Acute heart failure (Acute) Chronic combined systolic and diastolic CHF (congestive heart failure) (Acute) 1- EMMANUEL on CKD stage 3. Baseline SCr ~ 1.14 mg/dl EMMANUEL is likely ischemic ATN. SCr peaked at 3.2 mg/dL on 06/26/20. SCr is better today. Renal function is improving despite diuresis. . 2- S/P CPA with prolonged resuscitation Off pressor. hemodynamically stable. Supportive management as per channel specialist. 3- Acute DE . Cardiology is following. 4- Acute hypoxic respiratory failure from aspiration and DE. Plan O2 requirements are better urine output is ok sodium is higher likely related to diuresis
[2020-07-01] MEDS: APIXABAN 5 MG TABLET NG ×2 (14:16→21:13)
[2020-07-01 17:30] LABS: Bedside Glucose 147 mg/dL (70-110)
[2020-07-01] MEDS: Propofol 10MG/Ml 1,000 MG/100 ML Bottle 16.3 MG CONT INF (23:26)
[2020-07-02] VITALS (35 sets, daily range): BP systolic 84–126; BP diastolic 59–84; PULSE 64–100; RESP 14–21; TEMP 36.6–38.5; O2SAT 86–99
[2020-07-02 00:56] LABS: Bedside Glucose 108 mg/dL (70-110)
[2020-07-02] MEDS: Vital High Protein 1,000 ML 60 ML GT ×3 (01:18→19:50)
[2020-07-02] MEDS: Ipratropium/Albuterol Sulfate 3 ML AMPUL.NEB INHALATION ×5 (03:00→23:09)
[2020-07-02 04:01] LABS: Absolute Lymphocyte Count 1.85 X10^3/uL (0.83-4.51); Absolute Neutrophil Count 12.6 X10^3/uL (2.0-7.7); Basophil# 0.05 X10^3/uL; Basophil% 0.3 % (0-1); Eosinophil# 0.33 X10^3/uL; Hematocrit 28.9 % (37-47); Hemoglobin 8.6 g/dL (12.0-15.0); Lymphocyte # 1.85 X10^3/ul (4.0); Lymphocyte % 11.1 % (19-41); Mean Corp Hgb Conc 29.8 g/dL (32-36); Mean Corpuscular Volume 100.7 fL (81-99); Monocyte# 1.21 X10^3/uL; Monocyte% 7.2 % (0-10); NRBC Flagged by Analyzer 0.4 % (0-5); Neutrophil # 12.61 X10^3/uL (2.7-7.7); Neutrophil % 75.4 % (47-70); Platelet Count 352 K/mm3 (150-450); RBC Distribution Width CV 14.9 % (11.6-14.6); Red Blood Count 2.87 M/mm3 (4.2-5.4); White Blood Count 16.7 K/mm3 (4.4-11.0)
[2020-07-02 04:11] LABS: Anion Gap 5 (5-15); BUN 88 mg/dL (7-18); BUN/Creat Ratio 73.3 RATIO (10-20); Calcium,Total 9.5 mg/dL (8.5-10.1); Chloride 109 mmol/L (98-107); EST Glomerular Filtration Rate 47 mL/min (>60); Est Glom Filt Rate - Afr Amer 57 mL/min (>60); Estimated Creatinine Clearance 38.21 ml/min; Glucose 91 mg/dL (74-106); Potassium 3.8 mmol/L (3.5-5.1); Sodium Level 153 mmol/L (136-145)
[2020-07-02] MEDS: Propofol 10MG/Ml 1,000 MG/100 ML Bottle 13 MG CONT INF (05:00)
--- NOTE | 2020-07-02 06:00 | NURSING ---
Fentanyl was still running @0600 am CPOT was 0/2.
[2020-07-02] MEDS: TITRATION PARAMETER CHANGE 1 EACH IV (06:53)
[2020-07-02 07:31] LABS: Bedside Glucose 96 mg/dL (70-110)
--- NOTE | 2020-07-02 08:53 | PN_ITS ---
Patient Problems: Active and Suspected Problems (Last Reviewed 06/24/20 @ 12:[address] Armond Killian MD) Hypoxemia (Acute) Cardiopulmonary arrest (Acute) Ventricular tachycardia (Acute) Ventricular fibrillation (Acute) Myocardial infarction (Acute) Acute heart failure (Acute) Chronic combined systolic and diastolic CHF (congestive heart failure) (Acute) Subjective: Patient was seen bedside postoperative right foot surgery. Intubated and is responsive to touch during her dressing change.She is afebrile and her vital signs are stable. - Physical Exam Vitals/I&O's: Vital Signs Temp Pulse Resp BP Pulse Ox 98.9 F 75 15 107/66 90 07/02/20 08:00 07/02/20 08:00 07/02/20 08:00 07/02/20 08:00 07/02/20 08:00 Oxygen Flow Rate (L/min) 60 Oxygen Delivery Method Mechanical Ventilator Weight: 107.7 kg Body Mass Index (BMI) 39.9 Intake and Output for Last 24 Hours 06/30/20 07/01/20 07/02/20 23:59 23:59 23:59 Intake Total 2982.16 / 3002.86 2093.36 / 2357.60 1024.41 / 1024.41 Output Total 4750 / 4750 2800 / 2975 1075 / 1075 Balance -1767.84 / -1747.14 -706.64 / -617.40 -50.59 / -50.59 General: Cooperative Oral: - - Intubated Extremities: No cyanosis, Capillary Refill Less than 3 Seconds - All digits right foot, Diminished Peripheral Pulses, Edema - Mild lower extremity, - - No bogginess or fluctuance to the foot ankle or leg. Compartments remain soft Skin: Incision - Well aligned to dorsal second toe and metatarsophalangeal joint with nylon sutures intact. No gapping, necrosis, erythema, streaking, purulence, or odor. There are some nonblanchable skin coloration to the dorsal midfoot without necrosis blistering or infection Psych/Mental Status: - - Unable to assess Microbiology Past 72 Hours 06/30/20 14:00 Stool C. difficile DNA Amplification - Final 06/25/20 09:06 Blood Culture (Wb) - Central Line Blood Culture - Final No growth in 5 days. 06/25/20 06:45 Blood Culture (Wb) - Anticubital Right Blood Culture - Final No growth in 5 days. Laboratory Results 07/01/20 11:35: POC Glucose 141 H 07/01/20 17:13: POC Glucose 147 H 07/02/20 00:31: POC Glucose 108 07/02/20 03:44: WBC 16.7 H, RBC 2.87 L, Hgb 8.6 L, Hct 28.9 L, MCV 100.7 H, MCH 30.0, MCHC 29.8 L, RDW Std Deviation 54.0 H, RDW Coeff of Ankit 14.9 H, Plt Count 352, MPV 11.0, Immature Gran % (Auto) 4.000 H, Neut % (Auto) 75.4 H, Lymph % (Auto) 11.1 L, [place] % (Auto) 7.2, Eos % (Auto) 2.0, Baso % (Auto) 0.3, Absolute Neuts (auto) 12.6 H, Absolute Lymphs (auto) 1.85, Nucleated RBC % 0.4 07/02/20 03:44: Sodium 153 H, Potassium 3.8, Chloride 109 H, Carbon Dioxide 39.0 H, Anion Gap 5, BUN 88 H, Creatinine 1.20 H, Estim Creat Clear Calc 38.21, Est GFR (MDRD) Af Amer 57 L, Est GFR (MDRD) Non-Af 47 L, BUN/Creatinine Ratio 73.3 H , Glucose 91, Calcium 9.5 07/02/20 05:12: POC Glucose 96 Current Medications Acetaminophen (Acetaminophen 650 Mg/20 Ml Udc) 650 mg NG Q4H PRN PRN PRN Reason: temp>101.0 Last Admin: 06/30/20 11:49 Dose: 650 mg Documented by: Albuterol Sulfate (Albuterol 2.5 Mg/3 Ml Vial.Neb.) 2.5 mg INHALATION Q2H PRN PRN PRN Reason: SOB/Wheezing Albuterol/Ipratropium (Ipratropium/Albuterol Sulfate 3 Ml Ampul.Neb) 3 ml INHALATION Q4H.RT KIM Last Admin: 07/02/20 07:08 Dose: 3 ml Documented by: Apixaban (Apixaban 5 Mg Tablet) 5 mg NG BID KIM Last Admin: 07/01/20 21:13 Dose: 5 mg Documented by: Aspirin (Aspirin 81 Mg Tab.Chew) 81 mg NG DAILY@0800 [facility] Last Admin: 07/01/20 09:02 Dose: 81 mg Documented by: Chlorhexidine Gluconate (Chlorhexidine 15 Ml) 15 ml PO BID [facility] Last Admin: 07/01/20 21:18 Dose: 15 ml Documented by: Dextrose (Dextrose 50%-Water 25 Gm/50 Ml Disp.Syrin) 0 gm IV X1 PRN; Protocol PRN Reason: Hypoglycemia Famotidine (Famotidine 20 Mg Tablet) 20 mg NG DAILY [facility] Last Admin: 07/01/20 09:05 Dose: 20 mg Documented by: Glucagon (Glucagon 1 Mg/Ml Syringe) 1 mg IM .X1 PRN PRN Reason: Hypoglycemia Heparin Sodium (Beef Lung) (Heparin Pf Lock 10 Units/Ml 50 Units/5 Ml Syringe) 50 units IV UD PRN PRN Reason: PICC Line Heparin Flush Sodium Chloride () 250 mls @ 15 mls/hr IV .[id number] PRN PRN Reason: Saline Flush Last Infusion: 06/28/20 21:35 Dose: Infused Documented by: Sodium Chloride () 250 mls @ 15 mls/hr IV .[id number] PRN PRN Reason: Additional IVPB Infusion Fentanyl Citrate 1,000 mcg/ (Sodium Chloride) 100 mls @ 5 mls/hr CONT INF .Q20H [facility]; Protocol Last Admin: 07/02/20 06:26 Dose: 125 mcg/hr, 12.5 mls/hr Documented by: Enteral Nutritional Formula (Vital High Protein) 1,000 mls @ 60 mls/hr GT .[id number] [facility] Last Admin: 07/02/20 01:18 Dose: 60 mls/hr Documented by: Propofol (Diprivan) 1,000 mg in 100 mls @ 42.462 mls/hr CONT INF .Q2H22M [facility]; Protocol Last Titration: 07/02/20 06:15 Dose: 25 mcg/kg/min, 16.3 mls/hr Documented by: Ampicillin Sodium/Sulbactam (Sodium 3 gm/ Sodium Chloride) 112 mls @ 150 mls/hr IV Q8 [facility] Stop: 07/02/20 22:01 Last Infusion: 07/02/20 06:28 Dose: Infused Documented by: Insulin Human Lispro (Insulin Lispro 100 Unit/Ml Insuln.Pen) 0 unit SC Q6 [facility]; Protocol Last Admin: 07/02/20 05:13 Dose: Not Given Documented by: L-Arginine/L-Glutamine/Calcium HMB (Rosendo (Unflavored) Packet) 1 packet NG BIDCM [facility] Last Admin: 07/01/20 17:27 Dose: 1 packet Documented by: Metoprolol Tartrate (Metoprolol Tartrate 25 Mg Tablet) 12.5 mg PO BID [facility] Last Admin: 07/01/20 21:14 Dose: 12.5 mg Documented by: Polyethylene Glycol (Polyethylene Glycol 3350 17 Gm Packet) 17 gm NG DAILY [facility] Last Admin: 07/01/20 09:05 Dose: Not Given Documented by: Prednisone (Prednisone 20 Mg Tablet) 40 mg NG DAILY@0800 [facility] Last Admin: 07/01/20 09:02 Dose: 40 mg Documented by: Quetiapine Fumarate (Quetiapine 25 Mg Tablet) 50 mg PO BID [facility] Last Admin: 07/01/20 21:14 Dose: 50 mg Documented by: Senna/Docusate Sodium (Senna/Docusate Sodium 1 Tablet) 2 tablet NG BID [facility] Last Admin: 07/01/20 20:56 Dose: Not Given Documented by: Sodium Chloride (0.9% Saline Lock 10 Ml Syringe) 10 - 40 ml IV UD PRN PRN Reason: Open End PICC Flush Last Admin: 06/27/20 06:27 Dose: 40 ml Documented by: Sodium Chloride (0.9 % Nacl (Sterile) Posiflush 10 Ml) 10 - 40 ml IV UD PRN PRN Reason: Port access or dressing change Last Admin: 06/30/20 22:22 Dose: 20 ml Documented by: Sodium Chloride (0.9% Saline Lock 10 Ml Syringe) 10 - 40 ml IV UD PRN PRN Reason: SALINE FLUSH Medical Necessity - Tobacco Use Smoking Status: Former smoker Assessment/Plan All Active Problems (Last Reviewed 06/24/20 @ 12:[address] Armond Killian MD) Hypoxemia (Acute) Cardiopulmonary arrest (Acute) Ventricular tachycardia (Acute) Ventricular fibrillation (Acute) Myocardial infarction (Acute) Acute heart failure (Acute) Chronic combined systolic and diastolic CHF (congestive heart failure) (Acute) Laceration right dorsal 2nd toe down to bone s/p debridement on 06/17/[address] Montilla Osteomyelitis right 2nd toe Cellulitis right forefoot Hammer toe, right Multiple comorbidities Patient seen and examined bedside. Patient is afebrile. Right foot continues to improve, s/p debridement. Wound culture with staph aureus, MRSA DNA PCR negative. Surgical cultures + as well, patient on antibiotic therapy with Dr. Saavedra consulted. PICC line placed on ceftriaxone until 07-29-2020. Patient did have LEAS in February which showed no arterial occlusive disease. Clinically there is no evidence of ischemia to the foot or ankle. Cyanosis to digits has resolved. Changed dressing today - applied betadin, gauze, kerlix. Continue dressing changes with extra padding to dorsal foot to avoid further dressing injury. No weightbearing to right forefoot, ok for heel weightbearing. Podiatry will continue to follow weekly. Please contact if any questions. Shamika Herrera DPM, [facility] [phone]
--- NOTE | 2020-07-02 08:54 | PCM.PN.INT ---
Subjective: Patient did okay overnight. Patient continues to have high oxygen requirements. Patient does follow some commands. Urine output has been adequate. No significant diarrhea has been reported. General: - - RASS -2. Appears older than stated age. Morbidly obese. HEENT: Atraumatic, PERRLA, EOMI, Normocephalic, - - Slight scleral injection without icterus Oral: Moist Mucosa, No Gingival or Mucosal Lesions/ Ulcerations Neck: Supple, No JVD, No Nodes, Trachea Midline Lungs: No rales, Diminished, Rhonchi - Bilateral, - - Symmetric expansion. Cardiovascular: Regular rate, Regular Rhythm, Normal S1, Normal S2, No murmurs, No rub noted, No Gallop Abdomen: Bowel Sounds Present, Soft, Non Tender, Non-Distended, Obese Extremities: No clubbing, No cyanosis, Edema Skin: - - No change compared to previous Musculoskeletal: No Tenderness to Palpation of Joints or Extremities Lymphatic: No Cervical, Supraclavicular, or Inguinal Adenopathy Neurological: Cranial nerves II-XII grossly intact, Neuro grossly intact, Motor Exam 5/5 strength throughout Psych/Mental Status: Flat Affect Vital Signs Temp Pulse Resp BP Pulse Ox 37.2 C 75 15 107/66 90 07/02/20 08:00 07/02/20 08:00 07/02/20 08:00 07/02/20 08:00 07/02/20 08:00 Oxygen Flow Rate (L/min) 60 Oxygen Delivery Method Mechanical Ventilator Weight: 107.7 kg Body Mass Index (BMI) 39.9 Intake and Output for Last 24 Hours 06/30/20 07/01/20 07/02/20 23:59 23:59 23:59 Intake Total 2982.16 / 3002.86 2093.36 / 2357.60 1024.41 / 1024.41 Output Total 4750 / 4750 2800 / 2975 1075 / 1075 Balance -1767.84 / -1747.14 -706.64 / -617.40 -50.59 / -50.59 Labs (Last 48 Hours) 06/30/20 06/30/20 06/30/20 11:19 11:20 16:56 WBC RBC Hgb Hct MCV MCH MCHC RDW Std Deviation RDW Coeff of Ankit Plt Count MPV Immature Gran % (Auto) Neut % (Auto) Lymph % (Auto) [place] % (Auto) Eos % (Auto) Baso % (Auto) Absolute Neuts (auto) Absolute Lymphs (auto) Nucleated RBC % APTT 51.7 H Sodium Potassium Chloride Carbon Dioxide Anion Gap BUN Creatinine Estim Creat Clear Calc Est GFR (MDRD) Af Amer Est GFR (MDRD) Non-Af BUN/Creatinine Ratio Glucose Calcium POC Glucose 154 H 169 H 06/30/20 07/01/20 07/01/20 21:52 01:04 04:58 WBC 18.3 H RBC 2.94 L Hgb 8.8 L Hct 29.7 L MCV 101.0 H MCH 29.9 MCHC 29.6 L RDW Std Deviation 53.8 H RDW Coeff of Ankit 14.9 H Plt Count 343 MPV 10.5 Immature Gran % (Auto) 4.500 H Neut % (Auto) 75.6 H Lymph % (Auto) 11.4 L [place] % (Auto) 6.6 Eos % (Auto) 1.5 Baso % (Auto) 0.4 Absolute Neuts (auto) 13.9 H Absolute Lymphs (auto) 2.08 Nucleated RBC % 0.4 APTT 76.9 H Sodium Potassium Chloride Carbon Dioxide Anion Gap BUN Creatinine Estim Creat Clear Calc Est GFR (MDRD) Af Amer Est GFR (MDRD) Non-Af BUN/Creatinine Ratio Glucose Calcium POC Glucose 119 H 07/01/20 07/01/20 07/01/20 04:58 04:58 05:53 WBC RBC Hgb Hct MCV MCH MCHC RDW Std Deviation RDW Coeff of Ankit Plt Count MPV Immature Gran % (Auto) Neut % (Auto) Lymph % (Auto) [place] % (Auto) Eos % (Auto) Baso % (Auto) Absolute Neuts (auto) Absolute Lymphs (auto) Nucleated RBC % APTT 94.2 H* Sodium 150 H Potassium 3.7 Chloride 107 Carbon Dioxide 40.0 H Anion Gap 3 L BUN 86 H Creatinine 1.34 H Estim Creat Clear Calc 34.22 Est GFR (MDRD) Af Amer 50 L Est GFR (MDRD) Non-Af 42 L BUN/Creatinine Ratio 64.2 H Glucose 107 H Calcium 9.1 POC Glucose 126 H 07/01/20 07/01/20 07/02/20 11:35 17:13 00:31 WBC RBC Hgb Hct MCV MCH MCHC RDW Std Deviation RDW Coeff of Ankit Plt Count MPV Immature Gran % (Auto) Neut % (Auto) Lymph % (Auto) [place] % (Auto) Eos % (Auto) Baso % (Auto) Absolute Neuts (auto) Absolute Lymphs (auto) Nucleated RBC % APTT Sodium Potassium Chloride Carbon Dioxide Anion Gap BUN Creatinine Estim Creat Clear Calc Est GFR (MDRD) Af Amer Est GFR (MDRD) Non-Af BUN/Creatinine Ratio Glucose Calcium POC Glucose 141 H 147 H 108 07/02/20 07/02/20 07/02/20 03:44 03:44 05:12 WBC 16.7 H RBC 2.87 L Hgb 8.6 L Hct 28.9 L MCV 100.7 H MCH 30.0 MCHC 29.8 L RDW Std Deviation 54.0 H RDW Coeff of Ankit 14.9 H Plt Count 352 MPV 11.0 Immature Gran % (Auto) 4.000 H Neut % (Auto) 75.4 H Lymph % (Auto) 11.1 L [place] % (Auto) 7.2 Eos % (Auto) 2.0 Baso % (Auto) 0.3 Absolute Neuts (auto) 12.6 H Absolute Lymphs (auto) 1.85 Nucleated RBC % 0.4 APTT Sodium 153 H Potassium 3.8 Chloride 109 H Carbon Dioxide 39.0 H Anion Gap 5 BUN 88 H Creatinine 1.20 H Estim Creat Clear Calc 38.21 Est GFR (MDRD) Af Amer 57 L Est GFR (MDRD) Non-Af 47 L BUN/Creatinine Ratio 73.3 H Glucose 91 Calcium 9.5 POC Glucose 96 Microbiology 06/30/20 14:00 Stool C. difficile DNA Amplification - Final 06/25/20 09:06 Blood Culture (Wb) - Central Line Blood Culture - Final No growth in 5 days. 06/25/20 06:45 Blood Culture (Wb) - Anticubital Right Blood Culture - Final No growth in 5 days. Medical Necessity - Tobacco Use Smoking Status: Former smoker Assessment/Plan All Active Problems (Last Reviewed 06/24/20 @ 12:[address] Armond Killian MD) Hypoxemia (Acute) Cardiopulmonary arrest (Acute) Ventricular tachycardia (Acute) Ventricular fibrillation (Acute) Myocardial infarction (Acute) Acute heart failure (Acute) Chronic combined systolic and diastolic CHF (congestive heart failure) (Acute) RECOMMENDATIONS: 1. Continue to wean FiO2 and PEEP to maintain oxygen saturations at or above 90%. 2. Continue scheduled bronchodilator therapy and steroids. 3. Minimize sedation with a goal to maintain a RASS of -1 to 1. Continue scheduled Seroquel twice daily in addition to drips. 4. Continue appropriate GI prophylaxis, diuretics, tube feeds and antimicrobials. 5. Wean PEEP and FiO2 as tolerated 6. Spontaneous breathing and awakening trials per protocol 7. Increase free water 8. Transition NG to OG IMPRESSIONS: 1. Acute on chronic combined respiratory failure The patient presented to the emergency department from the TCU, after she apparently experienced an aspiration event leading to respiratory decompensation and worsening hypoxemia. There is concern that this hypoxemia may have precipitated an acute coronary event. The patient did suffer from cardiopulmonary arrest in the emergency department and did require intubation. Patient remains on high FiO2 requirements with PEEP. Patient appears to be responding to steroid and antibiotic therapy. Anticipate continuation for now at current levels until status stabilizes. Continue to wean FiO2 and PEEP as tolerated. 2. Status post cardiopulmonary arrest Clinical concern that hypoxemia may have precipitated cardiac decompensation. Cardiology is currently following to assist with management. At this time, we will plan to continue current supportive measures. The patient may require eventual cardiac catheterization, once medically stabilized. Patient placed on anticoagulation with 10 a inhibitor 3. Encephalopathy Although there was initial concern for possible anoxic brain injury, the patient has improved from a mentation standpoint. Not exclude an element of anoxic encephalopathy given prolonged recovery/resuscitation event. We will not be able to assess until patient can be liberated from the ventilator. Plan to continue to minimize sedation as tolerated with a goal to maintain a RASS of -1 to 1. 4. Acute kidney injury Improving. Suspect a component of ischemic ATN in the setting of cardiopulmonary arrest. Continue to monitor urine output for now. No current indication for renal replacement therapy. Nephrology is currently following. 5. History of heart failure with preserved ejection fraction/paroxysmal atrial fibrillation Continue current supportive measures with additional medical intervention per cardiology recommendations. Continue heparin drip for now 6. Chronic pain syndrome/morbid obesity/hypertension/depression/anxiety/questionable COPD Complicates care, management, recovery and prognosis. Continue scheduled bronchodilator therapy. 7. Severe sepsis secondary to aspiration pneumonia versus sinusitis Patient has multiple etiologies for severe sepsis. Patient does have an aspiration pneumonia, but developed diarrhea and has an increasing leukocytosis overnight. C. difficile was negative. We will transition from an NG tube and OG and monitor CODE status: Succussion of CODE status at length with Dr. Davis including difference between FULL code, DNR-CCA and DNR-CC status. Following discussions about the differences in these status, the patient's daughter requested DNR-CCA CODE STATUS. TIME: 33 minutes of critical care time, independent of procedures, was spent addressing the patient's acute on chronic combined respiratory failure, status post cardiopulmonary arrest, encephalopathy, history of heart failure, acute kidney injury, review of all data and collaboration with the care team. (7 AM to 8 AM) [id number]: [id number] Critical care first hour
[2020-07-02] MEDS: Juven (unflavored) Packet 1 PACKET NG ×2 (09:06→18:49)
[2020-07-02] MEDS: Aspirin 81 MG TAB.CHEW NG (09:06)
[2020-07-02] MEDS: Metoprolol Tartrate 25 MG Tablet 12.5 MG PO (09:07)
[2020-07-02] MEDS: predniSONE 20 MG Tablet 40 MG NG (09:07)
[2020-07-02] MEDS: APIXABAN 5 MG TABLET NG ×2 (09:07→19:49)
[2020-07-02] MEDS: Senna/Docusate Sodium 1 Tablet 2 TABLET NG (09:07)
[2020-07-02] MEDS: Famotidine 20 MG Tablet NG (09:08)
[2020-07-02] MEDS: QUEtiapine 25 MG Tablet 50 MG PO ×2 (09:08→19:49)
[2020-07-02] MEDS: Chlorhexidine 15 ML PO ×2 (09:10→19:48)
[2020-07-02] MEDS: Propofol 10MG/Ml 1,000 MG/100 ML Bottle 16.2 MG CONT INF ×3 (10:25→19:50)
--- NOTE | 2020-07-02 11:04 | PCM.PN.CARD ---
Subjectve: The patient remains in the ICU. She remains mechanically intubated and ventilated. Objective: Vital Signs Temp Pulse Resp BP Pulse Ox 98.9 F 79 14 110/72 90 07/02/20 08:00 07/02/20 10:00 07/02/20 10:00 07/02/20 10:00 07/02/20 10:00 Oxygen Flow Rate (L/min) 70 Oxygen Delivery Method Mechanical Ventilator Weight: 237 lb 7.005 oz Body Mass Index (BMI) 39.9 Intake and Output for Last 24 Hours 06/30/20 07/01/20 07/02/20 23:59 23:59 23:59 Intake Total 2982.16 / 3002.86 2093.36 / 2357.60 1284.84 / 1284.84 Output Total 4750 / 4750 2800 / 2975 1275 / 1275 Balance -1767.84 / -1747.14 -706.64 / -617.40 9.84 / 9.84 General: Obese Lungs: Rhonchi Cardiovascular: Regular Rhythm, Premature Ectopic Beats, Normal S1, Normal S2 Abdomen: Bowel Sounds Present, Soft Extremities: No edema 07/02/20 03:44: WBC 16.7 H, RBC 2.87 L, Hgb 8.6 L, Hct 28.9 L, MCV 100.7 H, MCH 30.0, MCHC 29.8 L, Plt Count 352, MPV 11.0, Immature Gran % (Auto) 4.000 H, Neut % (Auto) 75.4 H, Lymph % (Auto) 11.1 L, [place] % (Auto) 7.2, Eos % (Auto) 2.0, Baso % (Auto) 0.3, Absolute Neuts (auto) 12.6 H, Nucleated RBC % 0.4 07/02/20 03:44: Sodium 153 H, Potassium 3.8, Chloride 109 H, Carbon Dioxide 39.0 H, Anion Gap 5, BUN 88 H, Creatinine 1.20 H, Est GFR (MDRD) Af Amer 57 L, Est GFR (MDRD) Non-Af 47 L, BUN/Creatinine Ratio 73.3 H, Glucose 91, Calcium 9.5 Rhythm: Sinus rhythm; PVCs; 1 episode of an irregular wide-complex rhythm potentially compatible with aberrancy although an episode of an irregular nonsustained ventricular tachycardia cannot necessarily be excluded. Medical Necessity - Tobacco Use Smoking Status: Former smoker Assessment/Plan 1. Acute cardiopulmonary arrest The patient experienced an acute cardiopulmonary arrest. There is concerns as to whether or not this may have been initiated by aspiration pneumonia and hypoxemia. According to the medical records available for review this arrest was a prolonged event. She was evaluated by interventional cardiology at the time who did not recommend urgent/emergent diagnostic cardiac catheterization. This was pending the outcome of her cardiopulmonary arrest, neurologic status, multiple comorbidities, etc. The patient has been evaluated by [facility] cardiology in the past. The information obtained is as noted in her previous cardiology progress note. At the present time the patient is in the ICU. She remains mechanically intubated and ventilated. She is going to continue supportive care at this time. 2. Paroxysmal atrial fibrillation/ventricular tachycardia The patient has, per previous medical records from 2018, reports of paroxysmal atrial fibrillation as well as paroxysmal ventricular tachycardia. She has been evaluated for these issues at [facility]. It appears she was treated medically and underwent EPS/RFA of PVCs. At the moment he appears to be remaining in sinus rhythm. She has been noted to have evidence of PVCs and one episode of an irregular wide-complex rhythm concerning for aberrancy versus nonsustained ventricular tachycardia. She will continue medical therapy with her beta-blockers as she is able. 3. CHF: Acute systolic She has a history of CHF. In the past this was reported as combined systolic and diastolic. There are concerns at this time she may have experienced, based on her event, an episode of acute systolic CHF. She remains in the ICU mechanically intubated and ventilated. Her diuretic therapy is being adjusted based upon her volume status, objective findings, etc. 4. Hypotension She is continuing evaluation care per pulmonology/critical care medicine. 5. COPD The patient has a history of COPD. She will need to continue evaluation care per internal medicine and pulmonology. 7. Obstructive sleep apnea The patient has per previous records a history of obstructive sleep apnea for which she has been reported is noncompliant with follow-up and care. She will need continued valuation care by her primary care physicians. 8. Obesity The patient has been reported as being obese in the past and currently. She apparently has been counseled in the past regarding diet and activity, etc., to try and bring her weight under better control. 9. Renal insufficiency Her creatinine has improved yet remains somewhat elevated. 10. Anemia She remains anemic with hemoglobin levels between 8 and 9. Her hemoglobin is being followed as this may require further evaluation and care and would have to be taken to consideration if she were ever to have invasive cardiovascular evaluation. Comment: The patient's case has been discussed and reviewed with Dr. Munoz. This note was generated using a voice recognition system and there may be incorrect words, spelling or punctuation that were not noted when reviewing the office note prior to saving.
--- NOTE | 2020-07-02 11:18 | PCM.PN.HOSP ---
Patient Problems: Active and Suspected Problems (Last Reviewed 06/24/20 @ 12:[address] Armond Killian MD) Hypoxemia (Acute) Cardiopulmonary arrest (Acute) Ventricular tachycardia (Acute) Ventricular fibrillation (Acute) Myocardial infarction (Acute) Acute heart failure (Acute) Chronic combined systolic and diastolic CHF (congestive heart failure) (Acute) Subjective: Intubated and sedated, should she does appear to be aware of her surroundings and responds to stimuli Vitals/I&O's: Vital Signs Temp Pulse Resp BP Pulse Ox 98.9 F 79 14 110/72 90 07/02/20 08:00 07/02/20 10:00 07/02/20 10:00 07/02/20 10:00 07/02/20 10:00 Oxygen Flow Rate (L/min) 70 Oxygen Delivery Method Mechanical Ventilator Weight: 237 lb 7.005 oz Body Mass Index (BMI) 39.9 Intake and Output for Last 24 Hours 06/30/20 07/01/20 07/02/20 23:59 23:59 23:59 Intake Total 2982.16 / 3002.86 2093.36 / 2357.60 1284.84 / 1284.84 Output Total 4750 / 4750 2800 / 2975 1275 / 1275 Balance -1767.84 / -1747.14 -706.64 / -617.40 9.84 / 9.84 General: - - Intubated and sedated, she does respond to stimuli HEENT: Atraumatic, PERRLA, Normocephalic Oral: Moist Mucosa Neck: Supple, No JVD Lungs: Clear to auscultation, Normal air movement, No rhonchi, No wheeze, No rales, Diminished Cardiovascular: Regular rate and rhythm, Normal S1, Normal S2, No murmurs Abdomen: Soft, Non-Distended, No Hepato-splenomegaly Extremities: No edema, Capillary Refill Less than 3 Seconds Skin: No rashes, No breakdown Neurological: - - Intubated and sedated Psych/Mental Status: - - Intubated and sedated Microbiology Past 72 Hours 06/30/20 14:00 Stool C. difficile DNA Amplification - Final 06/25/20 09:06 Blood Culture (Wb) - Central Line Blood Culture - Final No growth in 5 days. 06/25/20 06:45 Blood Culture (Wb) - Anticubital Right Blood Culture - Final No growth in 5 days. Laboratory Results 07/01/20 11:35: POC Glucose 141 H 07/01/20 17:13: POC Glucose 147 H 07/02/20 00:31: POC Glucose 108 07/02/20 03:44: WBC 16.7 H, RBC 2.87 L, Hgb 8.6 L, Hct 28.9 L, MCV 100.7 H, MCH 30.0, MCHC 29.8 L, RDW Std Deviation 54.0 H, RDW Coeff of Ankit 14.9 H, Plt Count 352, MPV 11.0, Immature Gran % (Auto) 4.000 H, Neut % (Auto) 75.4 H, Lymph % (Auto) 11.1 L, [place] % (Auto) 7.2, Eos % (Auto) 2.0, Baso % (Auto) 0.3, Absolute Neuts (auto) 12.6 H, Absolute Lymphs (auto) 1.85, Nucleated RBC % 0.4 07/02/20 03:44: Sodium 153 H, Potassium 3.8, Chloride 109 H, Carbon Dioxide 39.0 H, Anion Gap 5, BUN 88 H, Creatinine 1.20 H, Estim Creat Clear Calc 38.21, Est GFR (MDRD) Af Amer 57 L, Est GFR (MDRD) Non-Af 47 L, BUN/Creatinine Ratio 73.3 H, Glucose 91, Calcium 9.5 07/02/20 05:12: POC Glucose 96 Current Medications Acetaminophen (Acetaminophen 650 Mg/20 Ml Udc) 650 mg NG Q4H PRN PRN PRN Reason: temp>101.0 Last Admin: 06/30/20 11:49 Dose: 650 mg Documented by: Albuterol Sulfate (Albuterol 2.5 Mg/3 Ml Vial.Neb.) 2.5 mg INHALATION Q2H PRN PRN PRN Reason: SOB/Wheezing Albuterol/Ipratropium (Ipratropium/Albuterol Sulfate 3 Ml Ampul.Neb) 3 ml INHALATION Q4H.RT KIM Last Admin: 07/02/20 11:03 Dose: 3 ml Documented by: Apixaban (Apixaban 5 Mg Tablet) 5 mg NG BID KIM Last Admin: 07/02/20 09:07 Dose: 5 mg Documented by: Aspirin (Aspirin 81 Mg Tab.Chew) 81 mg NG DAILY@0800 [facility] Last Admin: 07/02/20 09:06 Dose: 81 mg Documented by: Chlorhexidine Gluconate (Chlorhexidine 15 Ml) 15 ml PO BID [facility] Last Admin: 07/02/20 09:10 Dose: 15 ml Documented by: Dextrose (Dextrose 50%-Water 25 Gm/50 Ml Disp.Syrin) 0 gm IV X1 PRN; Protocol PRN Reason: Hypoglycemia Famotidine (Famotidine 20 Mg Tablet) 20 mg NG DAILY [facility] Last Admin: 07/02/20 09:08 Dose: 20 mg Documented by: Glucagon (Glucagon 1 Mg/Ml Syringe) 1 mg IM .X1 PRN PRN Reason: Hypoglycemia Heparin Sodium (Beef Lung) (Heparin Pf Lock 10 Units/Ml 50 Units/5 Ml Syringe) 50 units IV UD PRN PRN Reason: PICC Line Heparin Flush Sodium Chloride () 250 mls @ 15 mls/hr IV .[id number] PRN PRN Reason: Saline Flush Last Infusion: 06/28/20 21:35 Dose: Infused Documented by: Sodium Chloride () 250 mls @ 15 mls/hr IV .[id number] PRN PRN Reason: Additional IVPB Infusion Fentanyl Citrate 1,000 mcg/ (Sodium Chloride) 100 mls @ 5 mls/hr CONT INF .Q20H [facility]; Protocol Last Admin: 07/02/20 06:26 Dose: 125 mcg/hr, 12.5 mls/hr Documented by: Enteral Nutritional Formula (Vital High Protein) 1,000 mls @ 60 mls/hr GT .[id number] [facility] Last Admin: 07/02/20 10:25 Dose: 60 mls/hr Documented by: Propofol (Diprivan) 1,000 mg in 100 mls @ 42.462 mls/hr CONT INF .Q2H22M [facility]; Protocol Last Admin: 07/02/20 10:25 Dose: 25 mcg/kg/min, 106.2 mls/hr Documented by: Ampicillin Sodium/Sulbactam (Sodium 3 gm/ Sodium Chloride) 112 mls @ 150 mls/hr IV Q8 [facility] Stop: 07/02/20 22:01 Last Infusion: 07/02/20 06:28 Dose: Infused Documented by: Insulin Human Lispro (Insulin Lispro 100 Unit/Ml Insuln.Pen) 0 unit SC Q6 [facility]; Protocol Last Admin: 07/02/20 05:13 Dose: Not Given Documented by: L-Arginine/L-Glutamine/Calcium HMB (Rosendo (Unflavored) Packet) 1 packet NG BIDCM [facility] Last Admin: 07/02/20 09:06 Dose: 1 packet Documented by: Metoprolol Tartrate (Metoprolol Tartrate 25 Mg Tablet) 12.5 mg PO BID [facility] Last Admin: 07/02/20 09:07 Dose: 12.5 mg Documented by: Polyethylene Glycol (Polyethylene Glycol 3350 17 Gm Packet) 17 gm NG DAILY [facility] Last Admin: 07/02/20 09:07 Dose: Not Given Documented by: Prednisone (Prednisone 20 Mg Tablet) 40 mg NG DAILY@0800 [facility] Last Admin: 07/02/20 09:07 Dose: 40 mg Documented by: Quetiapine Fumarate (Quetiapine 25 Mg Tablet) 50 mg PO BID [facility] Last Admin: 07/02/20 09:08 Dose: 50 mg Documented by: Senna/Docusate Sodium (Senna/Docusate Sodium 1 Tablet) 2 tablet NG BID [facility] Last Admin: 07/02/20 09:07 Dose: 2 tablet Documented by: Sodium Chloride (0.9% Saline Lock 10 Ml Syringe) 10 - 40 ml IV UD PRN PRN Reason: Open End PICC Flush Last Admin: 06/27/20 06:27 Dose: 40 ml Documented by: Sodium Chloride (0.9 % Nacl (Sterile) Posiflush 10 Ml) 10 - 40 ml IV UD PRN PRN Reason: Port access or dressing change Last Admin: 06/30/20 22:22 Dose: 20 ml Documented by: Sodium Chloride (0.9% Saline Lock 10 Ml Syringe) 10 - 40 ml IV UD PRN PRN Reason: SALINE FLUSH STROKE Vital Signs/Narrative: Vital Signs Temp Pulse Resp BP Pulse Ox 07/02/20 10:00 79 14 110/72 90 07/02/20 09:11 87 14 91 07/02/20 09:07 87 07/02/20 09:00 90 18 116/71 91 07/02/20 08:00 98.9 F 75 15 107/66 90 Medical Necessity - Tobacco Use Smoking Status: Former smoker Assessment/Plan All Active Problems (Last Reviewed 06/24/20 @ 12:[address] Armond Killian MD) Hypoxemia (Acute) Cardiopulmonary arrest (Acute) Ventricular tachycardia (Acute) Ventricular fibrillation (Acute) Myocardial infarction (Acute) Acute heart failure (Acute) Chronic combined systolic and diastolic CHF (congestive heart failure) (Acute) 1. Cardiopulmonary arrest secondary to acute OK secondary to acute on chronic hypoxic respiratory failure secondary to aspiration pneumonia/acute metabolic encephalopathy/EMMANUEL likely ATN -Remains intubated and sedated, continue to wean FiO2 and sedation -Continue with Unasyn -Continue with prednisone for possible history of COPD -Appreciate cardiology input, continue with heparin -EF of 45% with mild segmental systolic dysfunction -Decrease her Lasix to 40 mg IV daily down from twice daily. -Renal function peaked at 3.24, improved to 1.20 today and her BUN is 88. She is making urine, appreciate nephrology assistance 2. Acute on chronic combined CHF/paroxysmal A. fib/HTN/morbid obesity -appreciate cardiology's assistance -EF of 45% -We will continue with her rate control medication metoprolol -BMI of 40.6 we will discuss weight reduction following extubation 3. History of osteomyelitis -Patient amputation of her right second toe on 06/07/[address] Montilla -She was discharged to TCU on Rocephin, continue with Unasyn for now for her MSSA 4. Depression/anxiety - we will hold her home medications pending extubation -Continue with Seroquel 5. Diarrhea -We will check a C. difficile -C. difficile was negative, diarrhea resolved DVT: Heparin drip Inpatient E&M: 19092 Subs Hosp L2
[2020-07-02 12:41] LABS: Bedside Glucose 132 mg/dL (70-110)
[2020-07-02 17:06] LABS: Bedside Glucose 152 mg/dL (70-110)
[2020-07-02 18:51] LABS: Bedside Glucose 127 mg/dL (70-110)
[2020-07-02 23:41] LABS: Bedside Glucose 98 mg/dL (70-110)
[2020-07-03] VITALS (37 sets, daily range): BP systolic 88–134; BP diastolic 53–80; PULSE 62–106; RESP 14–26; TEMP 36.5–38.5; O2SAT 85–100
--- NOTE | 2020-07-03 00:11 | NURSING ---
1400 assumed care of patient recvd report from Tayo HASTINGS
[2020-07-03] MEDS: Propofol 10MG/Ml 1,000 MG/100 ML Bottle 16.2 MG CONT INF ×5 (00:40→22:08)
[2020-07-03] MEDS: Ipratropium/Albuterol Sulfate 3 ML AMPUL.NEB INHALATION ×5 (03:21→23:29)
--- NOTE | 2020-07-03 04:00 | RAD_ITS ---
STUDY: X-RAY - ABDOMEN/PELVIS REASON FOR EXAM: Female, 69 years old. Orogastric tube placement. TECHNIQUE: AP supine abdomen. COMPARISON: Chest x-ray July 01, 2020. FINDINGS: The study is extremely limited. Enteric tube tip in the left upper quadrant in the region of the gastric cardia, significantly more proximal compared to the prior study .Onthe prior exam the enteric tube tip was below the left hemidiaphragm ,at least in the gastric fundus/proximal gastric body ,off the inferior edge of the study. RAD/Abdomen Single View (Portable) IMPRESSION: Enteric tube tip in the gastric cardia, much more proximal as compared to prior study. Recommend advancing enteric tube. Electronically Signed: Farhan Salamanca MD at 5:11 EDT , Service support ,
[2020-07-03 05:46] LABS: Bedside Glucose 75 mg/dL (70-110)
[2020-07-03 06:25] LABS: Absolute Lymphocyte Count 2.04 X10^3/uL (0.83-4.51); Absolute Neutrophil Count 9.7 X10^3/uL (2.0-7.7); Basophil# 0.04 X10^3/uL; Basophil% 0.3 % (0-1); Eosinophil# 0.38 X10^3/uL; Eosinophils% 2.7 % (0-5); Hematocrit 30.3 % (37-47); Hemoglobin 8.7 g/dL (12.0-15.0); Lymphocyte # 2.04 X10^3/ul (4.0); Lymphocyte % 14.5 % (19-41); Mean Corp Hgb Conc 28.7 g/dL (32-36); Mean Corpuscular Hgb 29.9 pg (27.0-32.0); Mean Corpuscular Volume 104.1 fL (81-99); Mean Platelet Vol. 10.7 fl (6.2-12.0); Monocyte# 1.22 X10^3/uL; Monocyte% 8.7 % (0-10); NRBC Flagged by Analyzer 0.4 % (0-5); Neutrophil # 9.74 X10^3/uL (2.7-7.7); Neutrophil % 69.1 % (47-70); Platelet Count 378 K/mm3 (150-450); RBC Distribution Width SD 55.9 fl (35.1-43.9); Red Blood Count 2.91 M/mm3 (4.2-5.4); White Blood Count 14.1 K/mm3 (4.4-11.0)
[2020-07-03 06:37] LABS: Anion Gap 2 (5-15); BUN 80 mg/dL (7-18); BUN/Creat Ratio 76.2 RATIO (10-20); Calcium,Total 9.7 mg/dL (8.5-10.1); Chloride 113 mmol/L (98-107); Creatinine, Serum 1.05 mg/dL (0.55-1.02); EST Glomerular Filtration Rate 55 mL/min (>60); Est Glom Filt Rate - Afr Amer 67 mL/min (>60); Estimated Creatinine Clearance 43.67 ml/min; Glucose 100 mg/dL (74-106); Magnesium 2.4 mg/dL (1.6-2.6); Phosphorus 2.6 mg/dL (2.5-4.9); Potassium 3.7 mmol/L (3.5-5.1); Sodium Level 154 mmol/L (136-145)
--- NOTE | 2020-07-03 08:55 | PCM.PN.INT ---
Subjective: Patient did okay overnight. Attempts to change NG to OG were difficult. Patient currently has an OG in place. Patient does follow some commands. Oxygenation continues to be variable. Objective: KUB was reviewed. OG with police pilot hole is within the stomach. General: - - Intubated and sedated. Morbidly obese. HEENT: Atraumatic, PERRLA, EOMI, Normocephalic, - - No scleral icterus or injection noted Oral: Moist Mucosa, No Gingival or Mucosal Lesions/ Ulcerations Neck: Supple, No Nodes, Trachea Midline, JVD, Right Lungs: No rhonchi, No wheeze, No rales, Diminished, - - Symmetric expansion. No dullness to percussion. Cardiovascular: Regular rate, Regular Rhythm, Normal S1, Normal S2, No murmurs, No rub noted, No Gallop Abdomen: Bowel Sounds Present, Soft, Non Tender, Non-Distended, Obese Extremities: No clubbing, No cyanosis, No edema, Capillary Refill Less than 3 Seconds Skin: No rashes, No breakdown Musculoskeletal: No Tenderness to Palpation of Joints or Extremities Lymphatic: No Cervical, Supraclavicular, or Inguinal Adenopathy Neurological: Neuro grossly intact - No change from previous Psych/Mental Status: Flat Affect Vital Signs Temp Pulse Resp BP Pulse Ox 36.7 C 75 14 93/60 95 07/03/20 06:00 07/03/20 06:53 07/03/20 06:53 07/03/20 06:00 07/03/20 06:53 Oxygen Flow Rate (L/min) 70 Oxygen Delivery Method Mechanical Ventilator Weight: 107.7 kg Body Mass Index (BMI) 39.9 Intake and Output for Last 24 Hours 07/01/20 07/02/20 07/03/20 23:59 23:59 23:59 Intake Total 2093.36 / 2357.60 3149.19 / 3670.39 698.90 / 698.90 Output Total 2800 / 2975 2325 / 2515 790 / 790 Balance -706.64 / -617.40 824.19 / 1155.39 -91.10 / -91.10 Labs (Last 48 Hours) 07/01/20 07/01/20 07/02/20 11:35 17:13 00:31 WBC RBC Hgb Hct MCV MCH MCHC RDW Std Deviation RDW Coeff of Ankit Plt Count MPV Immature Gran % (Auto) Neut % (Auto) Lymph % (Auto) [place] % (Auto) Eos % (Auto) Baso % (Auto) Absolute Neuts (auto) Absolute Lymphs (auto) Nucleated RBC % Sodium Potassium Chloride Carbon Dioxide Anion Gap BUN Creatinine Estim Creat Clear Calc Est GFR (MDRD) Af Amer Est GFR (MDRD) Non-Af BUN/Creatinine Ratio Glucose Calcium Phosphorus Magnesium POC Glucose 141 H 147 H 108 07/02/20 07/02/20 07/02/20 03:44 03:44 05:12 WBC 16.7 H RBC 2.87 L Hgb 8.6 L Hct 28.9 L MCV 100.7 H MCH 30.0 MCHC 29.8 L RDW Std Deviation 54.0 H RDW Coeff of Ankit 14.9 H Plt Count 352 MPV 11.0 Immature Gran % (Auto) 4.000 H Neut % (Auto) 75.4 H Lymph % (Auto) 11.1 L [place] % (Auto) 7.2 Eos % (Auto) 2.0 Baso % (Auto) 0.3 Absolute Neuts (auto) 12.6 H Absolute Lymphs (auto) 1.85 Nucleated RBC % 0.4 Sodium 153 H Potassium 3.8 Chloride 109 H Carbon Dioxide 39.0 H Anion Gap 5 BUN 88 H Creatinine 1.20 H Estim Creat Clear Calc 38.21 Est GFR (MDRD) Af Amer 57 L Est GFR (MDRD) Non-Af 47 L BUN/Creatinine Ratio 73.3 H Glucose 91 Calcium 9.5 Phosphorus Magnesium POC Glucose 96 07/02/20 07/02/20 07/02/20 12:27 16:51 18:48 WBC RBC Hgb Hct MCV MCH MCHC RDW Std Deviation RDW Coeff of Ankit Plt Count MPV Immature Gran % (Auto) Neut % (Auto) Lymph % (Auto) [place] % (Auto) Eos % (Auto) Baso % (Auto) Absolute Neuts (auto) Absolute Lymphs (auto) Nucleated RBC % Sodium Potassium Chloride Carbon Dioxide Anion Gap BUN Creatinine Estim Creat Clear Calc Est GFR (MDRD) Af Amer Est GFR (MDRD) Non-Af BUN/Creatinine Ratio Glucose Calcium Phosphorus Magnesium POC Glucose 132 H 152 H 127 H 07/02/20 07/03/20 07/03/20 23:36 05:41 06:15 WBC 14.1 H RBC 2.91 L Hgb 8.7 L Hct 30.3 L MCV 104.1 H MCH 29.9 MCHC 28.7 L RDW Std Deviation 55.9 H RDW Coeff of Ankit 15.0 H Plt Count 378 MPV 10.7 Immature Gran % (Auto) 4.700 H Neut % (Auto) 69.1 Lymph % (Auto) 14.5 L [place] % (Auto) 8.7 Eos % (Auto) 2.7 Baso % (Auto) 0.3 Absolute Neuts (auto) 9.7 H Absolute Lymphs (auto) 2.04 Nucleated RBC % 0.4 Sodium Potassium Chloride Carbon Dioxide Anion Gap BUN Creatinine Estim Creat Clear Calc Est GFR (MDRD) Af Amer Est GFR (MDRD) Non-Af BUN/Creatinine Ratio Glucose Calcium Phosphorus Magnesium POC Glucose 98 75 07/03/20 06:15 WBC RBC Hgb Hct MCV MCH MCHC RDW Std Deviation RDW Coeff of Ankit Plt Count MPV Immature Gran % (Auto) Neut % (Auto) Lymph % (Auto) [place] % (Auto) Eos % (Auto) Baso % (Auto) Absolute Neuts (auto) Absolute Lymphs (auto) Nucleated RBC % Sodium 154 H Potassium 3.7 Chloride 113 H Carbon Dioxide 39.0 H Anion Gap 2 L BUN 80 H Creatinine 1.05 H Estim Creat Clear Calc 43.67 Est GFR (MDRD) Af Amer 67 Est GFR (MDRD) Non-Af 55 L BUN/Creatinine Ratio 76.2 H Glucose 100 Calcium 9.7 Phosphorus 2.6 Magnesium 2.4 POC Glucose Clinical Impression(s) from Imaging Studies KUB X-Ray 07/03/20 04:00 IMPRESSION: Enteric tube tip in the gastric cardia, much more proximal as compared to prior study. Recommend advancing enteric tube. Electronically Signed: Farhan Salamanca MD at 5:11 EDT , Service support , Medical Necessity - Tobacco Use Smoking Status: Former smoker Assessment/Plan All Active Problems (Last Reviewed 06/24/20 @ 12:[address] Armond Killian MD) Hypoxemia (Acute) Cardiopulmonary arrest (Acute) Ventricular tachycardia (Acute) Ventricular fibrillation (Acute) Myocardial infarction (Acute) Acute heart failure (Acute) Chronic combined systolic and diastolic CHF (congestive heart failure) (Acute) RECOMMENDATIONS: 1. Continue to wean FiO2 and PEEP to maintain oxygen saturations at or above 90%. 2. Continue scheduled bronchodilator therapy and steroids. 3. Minimize sedation with a goal to maintain a RASS of -1 to 1. Continue scheduled Seroquel twice daily in addition to drips. 4. Continue appropriate GI prophylaxis, diuretics, tube feeds and antimicrobials. 5. Wean PEEP and FiO2 as tolerated 6. Spontaneous breathing and awakening trials per protocol 7. Continue increased free water IMPRESSIONS: 1. Acute on chronic combined respiratory failure The patient presented to the emergency department from the TCU, after she apparently experienced an aspiration event leading to respiratory decompensation and worsening hypoxemia. There is concern that this hypoxemia may have precipitated an acute coronary event. The patient did suffer from cardiopulmonary arrest in the emergency department and did require intubation. Patient remains on high FiO2 requirements with PEEP. Patient appears to be responding to steroid and antibiotic therapy. Anticipate continuation for now at current levels until status stabilizes. Continue to wean FiO2 and PEEP as tolerated. KUB shows some improvement in pulmonary infiltrates compared to previous. Patient is still requiring high PEEP and FiO2 to maintain saturations. Possibly attempt to transition to Precedex therapy to facilitate spontaneous breathing trial when patient is more appropriate. 2. Status post cardiopulmonary arrest Clinical concern that hypoxemia may have precipitated cardiac decompensation. Cardiology is currently following to assist with management. At this time, we will plan to continue current supportive measures. The patient may require eventual cardiac catheterization, once medically stabilized. Patient placed on anticoagulation with 10 a inhibitor 3. Encephalopathy Although there was initial concern for possible anoxic brain injury, the patient has improved from a mentation standpoint. Not exclude an element of anoxic encephalopathy given prolonged recovery/resuscitation event. We will not be able to assess until patient can be liberated from the ventilator. Plan to continue to minimize sedation as tolerated with a goal to maintain a RASS of -1 to 1. 4. Acute kidney injury Improving. Suspect a component of ischemic ATN in the setting of cardiopulmonary arrest. Continue to monitor urine output for now. No current indication for renal replacement therapy. Nephrology is currently following. Patient does have significant uremia despite relatively normal creatinine. Patient is not showing any signs of GI bleed at this time. 5. History of heart failure with preserved ejection fraction/paroxysmal atrial fibrillation Continue current supportive measures with additional medical intervention per cardiology recommendations. Continue heparin drip for now 6. Chronic pain syndrome/morbid obesity/hypertension/depression/anxiety/questionable COPD Complicates care, management, recovery and prognosis. Continue scheduled bronchodilator therapy. 7. Severe sepsis secondary to aspiration pneumonia versus sinusitis Patient has multiple etiologies for severe sepsis. Patient does have an aspiration pneumonia, but developed diarrhea and has an increasing leukocytosis overnight. C. difficile was negative. We will transition from an NG tube and OG and monitor CODE status: Succussion of CODE status at length with Dr. Davis including difference between FULL code, DNR-CCA and DNR-CC status. Following discussions about the differences in these status, the patient's daughter requested DNR-CCA CODE STATUS. TIME: 35 minutes of critical care time, independent of procedures, was spent addressing the patient's acute on chronic combined respiratory failure, status post cardiopulmonary arrest, encephalopathy, history of heart failure, acute kidney injury, review of all data and collaboration with the care team. (7:45 AM to 8:45 AM) [id number]: [id number] Critical care first hour
[2020-07-03] MEDS: Juven (unflavored) Packet 1 PACKET NG (09:08)
[2020-07-03] MEDS: Aspirin 81 MG TAB.CHEW NG (09:08)
[2020-07-03] MEDS: QUEtiapine 25 MG Tablet 50 MG PO ×2 (09:09→20:34)
[2020-07-03] MEDS: APIXABAN 5 MG TABLET NG ×2 (09:09→20:34)
[2020-07-03] MEDS: Famotidine 20 MG Tablet NG ×2 (09:10→20:35)
[2020-07-03] MEDS: predniSONE 20 MG Tablet 40 MG NG (09:10)
[2020-07-03] MEDS: Chlorhexidine 15 ML PO ×2 (09:11→20:35)
--- NOTE | 2020-07-03 11:08 | PN_ITS ---
Patient Problems: Active and Suspected Problems (Last Reviewed 06/24/20 @ 12:[address] Armond Killian MD) Hypoxemia (Acute) Cardiopulmonary arrest (Acute) Ventricular tachycardia (Acute) Ventricular fibrillation (Acute) Myocardial infarction (Acute) Acute heart failure (Acute) Chronic combined systolic and diastolic CHF (congestive heart failure) (Acute) Subjective: No issues overnight, she is continue to be intubated and sedated. She does respond to tactile stimuli as well as voice Vitals/I&O's: Vital Signs Temp Pulse Resp BP Pulse Ox 97.7 F L 84 19 H 94/54 L 87 07/03/20 08:00 07/03/20 10:00 07/03/20 10:00 07/03/20 10:00 07/03/20 10:00 Oxygen Flow Rate (L/min) 70 Oxygen Delivery Method Mechanical Ventilator Weight: 237 lb 7.005 oz Body Mass Index (BMI) 39.9 Intake and Output for Last 24 Hours 07/01/20 07/02/20 07/03/20 23:59 23:59 23:59 Intake Total 2093.36 / 2357.60 3149.19 / 3670.39 882.88 / 882.88 Output Total 2800 / 2975 2325 / 2515 1190 / 1190 Balance -706.64 / -617.40 824.19 / 1155.39 -307.12 / -307.12 General: - - Intubated and sedated, she does respond to stimuli HEENT: Atraumatic, PERRLA, Normocephalic Oral: Moist Mucosa Neck: Supple, No JVD Lungs: Normal air movement, mild bilateral rhonchi, No wheeze, No rales, Diminished Cardiovascular: Regular rate and rhythm, Normal S1, Normal S2, No murmurs Abdomen: Soft, Non-Distended, No Hepato-splenomegaly Extremities: No edema, Capillary Refill Less than 3 Seconds Skin: No rashes, No breakdown Neurological: - - Intubated and sedated Psych/Mental Status: - - Intubated and sedated Microbiology Past 72 Hours 06/30/20 14:00 Stool C. difficile DNA Amplification - Final 06/25/20 09:06 Blood Culture (Wb) - Central Line Blood Culture - Final No growth in 5 days. 06/25/20 06:45 Blood Culture (Wb) - Anticubital Right Blood Culture - Final No growth in 5 days. Laboratory Results 07/02/20 12:27: POC Glucose 132 H 07/02/20 16:51: POC Glucose 152 H 07/02/20 18:48: POC Glucose 127 H 07/02/20 23:36: POC Glucose 98 07/03/20 05:41: POC Glucose 75 07/03/20 06:15: WBC 14.1 H, RBC 2.91 L, Hgb 8.7 L, Hct 30.3 L, MCV 104.1 H, MCH 29.9, MCHC 28.7 L, RDW Std Deviation 55.9 H, RDW Coeff of Ankit 15.0 H, Plt Count 378, MPV 10.7, Immature Gran % (Auto) 4.700 H, Neut % (Auto) 69.1, Lymph % (Auto) 14.5 L, [place] % (Auto) 8.7, Eos % (Auto) 2.7, Baso % (Auto) 0.3, Absolute Neuts (auto) 9.7 H, Absolute Lymphs (auto) 2.04, Nucleated RBC % 0.4 07/03/20 06:15: Sodium 154 H, Potassium 3.7, Chloride 113 H, Carbon Dioxide 39.0 H, Anion Gap 2 L, BUN 80 H, Creatinine 1.05 H, Estim Creat Clear Calc 43.67, Est GFR (MDRD) Af Amer 67, Est GFR (MDRD) Non-Af 55 L, BUN/Creatinine Ratio 76.2 H, Glucose 100, Calcium 9.7, Phosphorus 2.6, Magnesium 2.4 Current Medications Acetaminophen (Acetaminophen 650 Mg/20 Ml Ud) 650 mg NG Q4H PRN PRN PRN Reason: temp>101.0 Last Admin: 06/30/20 11:49 Dose: 650 mg Documented by: Albuterol Sulfate (Albuterol 2.5 Mg/3 Ml Vial.Neb.) 2.5 mg INHALATION Q2H PRN PRN PRN Reason: SOB/Wheezing Albuterol/Ipratropium (Ipratropium/Albuterol Sulfate 3 Ml Ampul.Neb) 3 ml INHALATION Q4H.RT K[facility] Last Admin: 07/03/20 06:59 Dose: 3 ml Documented by: Apixaban (Apixaban 5 Mg Tablet) 5 mg NG BID [facility] Last Admin: 07/03/20 09:09 Dose: 5 mg Documented by: Aspirin (Aspirin 81 Mg Tab.Chew) 81 mg NG DAILY@0800 [facility] Last Admin: 07/03/20 09:08 Dose: 81 mg Documented by: Chlorhexidine Gluconate (Chlorhexidine 15 Ml) 15 ml PO BID [facility] Last Admin: 07/03/20 09:11 Dose: 15 ml Documented by: Dextrose (Dextrose 50%-Water 25 Gm/50 Ml Disp.Syrin) 0 gm IV X1 PRN; Protocol PRN Reason: Hypoglycemia Famotidine (Famotidine 20 Mg Tablet) 20 mg NG BID [facility] Last Admin: 07/03/20 09:10 Dose: 20 mg Documented by: Glucagon (Glucagon 1 Mg/Ml Syringe) 1 mg IM .X1 PRN PRN Reason: Hypoglycemia Heparin Sodium (Beef Lung) (Heparin Pf Lock 10 Units/Ml 50 Units/5 Ml Syringe) 50 units IV UD PRN PRN Reason: PICC Line Heparin Flush Sodium Chloride () 250 mls @ 15 mls/hr IV .[id number] PRN PRN Reason: Saline Flush Last Infusion: 06/28/20 21:35 Dose: Infused Documented by: Sodium Chloride () 250 mls @ 15 mls/hr IV .[id number] PRN PRN Reason: Additional IVPB Infusion Fentanyl Citrate 1,000 mcg/ (Sodium Chloride) 100 mls @ 5 mls/hr CONT INF .Q20H [facility]; Protocol Last Titration: 07/03/20 10:00 Dose: 150 mcg/hr, 15 mls/hr Documented by: Enteral Nutritional Formula (Vital High Protein) 1,000 mls @ 60 mls/hr GT .[id number] [facility] Last Admin: 07/03/20 05:18 Dose: Not Given Documented by: Propofol (Diprivan) 1,000 mg in 100 mls @ 6.462 mls/hr CONT INF .Q12H [facility]; Protocol Last Admin: 07/03/20 10:34 Dose: 25 mcg/kg/min, 16.2 mls/hr Documented by: Ceftriaxone Sodium 2 gm/ (Sodium Chloride) 50 mls @ 100 mls/hr IV Q24 [facility] Last Admin: 07/03/20 10:39 Dose: 100 mls/hr Documented by: Insulin Human Lispro (Insulin Lispro 100 Unit/Ml Insuln.Pen) 0 unit SC Q6 [facility]; Protocol Last Admin: 07/03/20 05:42 Dose: Not Given Documented by: L-Arginine/L-Glutamine/Calcium HMB (Rosendo (Unflavored) Packet) 1 packet NG BIDCM [facility] Last Admin: 07/03/20 09:08 Dose: 1 packet Documented by: Metoprolol Tartrate (Metoprolol Tartrate 25 Mg Tablet) 12.5 mg PO BID [facility] Last Admin: 07/03/20 09:13 Dose: Not Given Documented by: Polyethylene Glycol (Polyethylene Glycol 3350 17 Gm Packet) 17 gm NG DAILY [facility] Last Admin: 07/03/20 09:09 Dose: Not Given Documented by: Prednisone (Prednisone 20 Mg Tablet) 40 mg NG DAILY@0800 [facility] Last Admin: 07/03/20 09:10 Dose: 40 mg Documented by: Quetiapine Fumarate (Quetiapine 25 Mg Tablet) 50 mg PO BID [facility] Last Admin: 07/03/20 09:09 Dose: 50 mg Documented by: Senna/Docusate Sodium (Senna/Docusate Sodium 1 Tablet) 2 tablet NG BID [facility] Last Admin: 07/03/20 09:09 Dose: Not Given Documented by: Sodium Chloride (0.9% Saline Lock 10 Ml Syringe) 10 - 40 ml IV UD PRN PRN Reason: Open End PICC Flush Last Admin: 06/27/20 06:27 Dose: 40 ml Documented by: Sodium Chloride (0.9 % Nacl (Sterile) Posiflush 10 Ml) 10 - 40 ml IV UD PRN PRN Reason: Port access or dressing change Last Admin: 06/30/20 22:22 Dose: 20 ml Documented by: Sodium Chloride (0.9% Saline Lock 10 Ml Syringe) 10 - 40 ml IV UD PRN PRN Reason: SALINE FLUSH STROKE Vital Signs/Narrative: Vital Signs Temp Pulse Resp BP BP Pulse Ox 07/03/20 10:00 84 19 H 94/54 L 87 07/03/20 09:13 80 96/57 L 07/03/20 09:00 84 14 100/76 85 07/03/20 08:00 97.7 F L 80 14 116/66 91 Medical Necessity - Tobacco Use Smoking Status: Former smoker Assessment/Plan All Active Problems (Last Reviewed 06/24/20 @ 12:[address] Armond Killian MD) Hypoxemia (Acute) Cardiopulmonary arrest (Acute) Ventricular tachycardia (Acute) Ventricular fibrillation (Acute) Myocardial infarction (Acute) Acute heart failure (Acute) Chronic combined systolic and diastolic CHF (congestive heart failure) (Acute) 1. Cardiopulmonary arrest secondary to acute CT secondary to acute on chronic hypoxic respiratory failure secondary to aspiration pneumonia/acute metabolic encephalopathy/EMMANUEL likely ATN -Remains intubated and sedated, continue to wean FiO2 and sedation -Continue with Unasyn -Continue with prednisone for possible history of COPD -Appreciate cardiology input, continue with heparin -EF of 45% with mild segmental systolic dysfunction -Decrease her Lasix to 40 mg IV daily down from twice daily. -Renal function peaked at 3.24, improved to 1.20 today and her BUN is 88. She is making urine, appreciate nephrology assistance 2. Acute on chronic combined CHF/paroxysmal A. fib/HTN/morbid obesity -appreciate cardiology's assistance -EF of 45% -We will continue with her rate control medication metoprolol -BMI of 40.6 we will discuss weight reduction following extubation 3. History of osteomyelitis -Patient amputation of her right second toe on 06/07/[address] Montilla -She was discharged to TCU on Rocephin, continue with Unasyn for now for her MSSA 4. Depression/anxiety - we will hold her home medications pending extubation -Continue with Seroquel 5. Diarrhea -We will check a C. difficile -C. difficile was negative, diarrhea resolved DVT: Heparin drip Inpatient E&M: [id number] Subs Hosp L2
--- NOTE | 2020-07-03 11:08 | CASEMGMT ---
DARLING CM Note: participated in ICU interdisciplinary rounds. The patient remains on ventilator, 40% O2. Anticipate breathing trial on Tuesday or Tuesday. If patient is not able to extubate, LTAC will need to be considered. CM to continue to follow for discharge planning. Sheyla SHANNONN RN ACM
[2020-07-03 12:51] LABS: Bedside Glucose 129 mg/dL (70-110)
[2020-07-03] MEDS: Vital High Protein 1,000 ML 60 ML GT ×3 (12:52→20:35)
--- NOTE | 2020-07-03 13:49 | PCM.PN.REN ---
Patient Problems: Active and Suspected Problems (Last Reviewed 06/24/20 @ 12:[address] Armond Killian MD) Hypoxemia (Acute) Cardiopulmonary arrest (Acute) Ventricular tachycardia (Acute) Ventricular fibrillation (Acute) Myocardial infarction (Acute) Acute heart failure (Acute) Chronic combined systolic and diastolic CHF (congestive heart failure) (Acute) Subjective: Intubated and sedated cannot do ROS - Physical Exam Vitals/I&O's: Vital Signs Temp Pulse Resp BP Pulse Ox 97.7 F L 67 15 94/54 L 87 07/03/20 08:00 07/03/20 11:27 07/03/20 11:27 07/03/20 10:00 07/03/20 10:00 Oxygen Flow Rate (L/min) 70 Oxygen Delivery Method Mechanical Ventilator Weight: 107.7 kg Body Mass Index (BMI) 39.9 Intake and Output for Last 24 Hours 07/01/20 07/02/20 07/03/20 23:59 23:59 23:59 Intake Total 2093.36 / 2357.60 3149.19 / 3670.39 952.88 / 952.88 Output Total 2800 / 2975 2325 / 2515 1340 / 1340 Balance -706.64 / -617.40 824.19 / 1155.39 -387.12 / -387.12 General: No apparent distress HEENT: Atraumatic, - - Intubated Lungs: Clear to auscultation, - - Coarse breath sounds anteriorly Cardiovascular: Regular rate, Normal S1, Normal S2 Abdomen: Bowel Sounds Present, Soft Extremities: No cyanosis, No edema Microbiology Past 72 Hours 06/30/20 14:00 Stool C. difficile DNA Amplification - Final Laboratory Results 07/02/20 16:51: POC Glucose 152 H 07/02/20 18:48: POC Glucose 127 H 07/02/20 23:36: POC Glucose 98 07/03/20 05:41: POC Glucose 75 07/03/20 06:15: WBC 14.1 H, RBC 2.91 L, Hgb 8.7 L, Hct 30.3 L, MCV 104.1 H, MCH 29.9, MCHC 28.7 L, RDW Std Deviation 55.9 H, RDW Coeff of Ankit 15.0 H, Plt Count 378, MPV 10.7, Immature Gran % (Auto) 4.700 H, Neut % (Auto) 69.1, Lymph % (Auto) 14.5 L, [place] % (Auto) 8.7, Eos % (Auto) 2.7, Baso % (Auto) 0.3, Absolute Neuts (auto) 9.7 H, Absolute Lymphs (auto) 2.04, Nucleated RBC % 0.4 07/03/20 06:15: Sodium 154 H, Potassium 3.7, Chloride 113 H, Carbon Dioxide 39.0 H, Anion Gap 2 L, BUN 80 H, Creatinine 1.05 H, Estim Creat Clear Calc 43.67, Est GFR (MDRD) Af Amer 67, Est GFR (MDRD) Non-Af 55 L, BUN/Creatinine Ratio 76.2 H, Glucose 100, Calcium 9.7, Phosphorus 2.6, Magnesium 2.4 07/03/20 12:47: POC Glucose 129 H Current Medications Acetaminophen (Acetaminophen 650 Mg/20 Ml Udc) 650 mg NG Q4H PRN PRN PRN Reason: temp>101.0 Last Admin: 06/30/20 11:49 Dose: 650 mg Documented by: Albuterol Sulfate (Albuterol 2.5 Mg/3 Ml Vial.Neb.) 2.5 mg INHALATION Q2H PRN PRN PRN Reason: SOB/Wheezing Albuterol/Ipratropium (Ipratropium/Albuterol Sulfate 3 Ml Ampul.Neb) 3 ml INHALATION Q4H.RT [facility] Last Admin: 07/03/20 11:27 Dose: 3 ml Documented by: Apixaban (Apixaban 5 Mg Tablet) 5 mg NG BID [facility] Last Admin: 07/03/20 09:09 Dose: 5 mg Documented by: Aspirin (Aspirin 81 Mg Tab.Chew) 81 mg NG DAILY@0800 [facility] Last Admin: 07/03/20 09:08 Dose: 81 mg Documented by: Chlorhexidine Gluconate (Chlorhexidine 15 Ml) 15 ml PO BID [facility] Last Admin: 07/03/20 09:11 Dose: 15 ml Documented by: Dextrose (Dextrose 50%-Water 25 Gm/50 Ml Disp.Syrin) 0 gm IV X1 PRN; Protocol PRN Reason: Hypoglycemia Famotidine (Famotidine 20 Mg Tablet) 20 mg NG BID [facility] Last Admin: 07/03/20 09:10 Dose: 20 mg Documented by: Glucagon (Glucagon 1 Mg/Ml Syringe) 1 mg IM .X1 PRN PRN Reason: Hypoglycemia Heparin Sodium (Beef Lung) (Heparin Pf Lock 10 Units/Ml 50 Units/5 Ml Syringe) 50 units IV UD PRN PRN Reason: PICC Line Heparin Flush Sodium Chloride () 250 mls @ 15 mls/hr IV .[id number] PRN PRN Reason: Saline Flush Last Infusion: 06/28/20 21:35 Dose: Infused Documented by: Sodium Chloride () 250 mls @ 15 mls/hr IV .[id number] PRN PRN Reason: Additional IVPB Infusion Fentanyl Citrate 1,000 mcg/ (Sodium Chloride) 100 mls @ 5 mls/hr CONT INF .Q20H [facility]; Protocol Last Admin: 07/03/20 11:25 Dose: 150 mcg/hr, 15 mls/hr Documented by: Enteral Nutritional Formula (Vital High Protein) 1,000 mls @ 60 mls/hr GT .[id number] [facility] Last Admin: 07/03/20 12:52 Dose: 60 mls/hr Documented by: Propofol (Diprivan) 1,000 mg in 100 mls @ 6.462 mls/hr CONT INF .Q12H [facility]; Protocol Last Admin: 07/03/20 10:34 Dose: 25 mcg/kg/min, 16.2 mls/hr Documented by: Ceftriaxone Sodium 2 gm/ (Sodium Chloride) 50 mls @ 100 mls/hr IV Q24 [facility] Last Infusion: 07/03/20 11:36 Dose: Infused Documented by: Insulin Human Lispro (Insulin Lispro 100 Unit/Ml Insuln.Pen) 0 unit SC Q6 [facility]; Protocol Last Admin: 07/03/20 12:47 Dose: Not Given Documented by: L-Arginine/L-Glutamine/Calcium HMB (Rosendo (Unflavored) Packet) 1 packet GT BIDCM [facility] Metoprolol Tartrate (Metoprolol Tartrate 25 Mg Tablet) 12.5 mg PO BID [facility] Last Admin: 07/03/20 09:13 Dose: Not Given Documented by: Polyethylene Glycol (Polyethylene Glycol 3350 17 Gm Packet) 17 gm NG DAILY [facility] Last Admin: 07/03/20 09:09 Dose: Not Given Documented by: Prednisone (Prednisone 20 Mg Tablet) 40 mg NG DAILY@0800 [facility] Last Admin: 07/03/20 09:10 Dose: 40 mg Documented by: Quetiapine Fumarate (Quetiapine 25 Mg Tablet) 50 mg PO BID [facility] Last Admin: 07/03/20 09:09 Dose: 50 mg Documented by: Senna/Docusate Sodium (Senna/Docusate Sodium 1 Tablet) 2 tablet NG BID [facility] Last Admin: 07/03/20 09:09 Dose: Not Given Documented by: Sodium Chloride (0.9% Saline Lock 10 Ml Syringe) 10 - 40 ml IV UD PRN PRN Reason: Open End PICC Flush Last Admin: 06/27/20 06:27 Dose: 40 ml Documented by: Sodium Chloride (0.9 % Nacl (Sterile) Posiflush 10 Ml) 10 - 40 ml IV UD PRN PRN Reason: Port access or dressing change Last Admin: 06/30/20 22:22 Dose: 20 ml Documented by: Sodium Chloride (0.9% Saline Lock 10 Ml Syringe) 10 - 40 ml IV UD PRN PRN Reason: SALINE FLUSH Medical Necessity - Tobacco Use Smoking Status: Former smoker Assessment/Plan All Active Problems (Last Reviewed 06/24/20 @ 12:[address] Armond Killian MD) Hypoxemia (Acute) Cardiopulmonary arrest (Acute) Ventricular tachycardia (Acute) Ventricular fibrillation (Acute) Myocardial infarction (Acute) Acute heart failure (Acute) Chronic combined systolic and diastolic CHF (congestive heart failure) (Acute) Hypernatremia EMMANUEL on CKD stage 3. Baseline SCr ~ 1.14 mg/dl EMMANUEL was ischemic ATN. SCr peaked at 3.2 mg/dL on 06/26/20. S/P CPA with prolonged resuscitation Acute VT . Cardiology is following. Acute hypoxic respiratory failure on vent SNa 154 patient was started back on tube feeds. She is going to get 250 mL of water every 4 hours will reevaluate sodium tomorrow. Discussed with pulmonary and RN The renal after diuresis and also high-dose steroids with a BUN of 80 today. Creatinine stable in the low 1 range 1.05 today Avoid nephrotoxins and hypotension. off pressors
[2020-07-03 14:33] LABS: CPK Total, Creatine Kinase 259 U/L (26-192); Triglycerides 202 mg/dL
[2020-07-03] MEDS: Juven (unflavored) Packet 1 PACKET GT (18:27)
[2020-07-03 18:46] LABS: Bedside Glucose 123 mg/dL (70-110)
[2020-07-03] MEDS: Metoprolol Tartrate 25 MG Tablet 12.5 MG PO (20:34)
[2020-07-03 23:16] LABS: Bedside Glucose 91 mg/dL (70-110)
[2020-07-04] VITALS (35 sets, daily range): BP systolic 86–148; BP diastolic 45–78; PULSE 67–102; RESP 14–22; TEMP 37.3–37.8; O2SAT 87–94
[2020-07-04] MEDS: Vital High Protein 1,000 ML 60 ML GT ×5 (01:36→21:22)
[2020-07-04] MEDS: Ipratropium/Albuterol Sulfate 3 ML AMPUL.NEB INHALATION ×6 (02:12→23:55)
[2020-07-04] MEDS: Propofol 10MG/Ml 1,000 MG/100 ML Bottle 22.6 MG CONT INF ×4 (02:20→12:26)
[2020-07-04 05:41] LABS: Bedside Glucose 102 mg/dL (70-110)
[2020-07-04 06:35] LABS: Absolute Lymphocyte Count 2.06 X10^3/uL (0.83-4.51); Absolute Neutrophil Count 8.9 X10^3/uL (2.0-7.7); Basophil# 0.05 X10^3/uL; Basophil% 0.4 % (0-1); Eosinophil# 0.46 X10^3/uL; Eosinophils% 3.5 % (0-5); Hematocrit 28.8 % (37-47); Hemoglobin 8.2 g/dL (12.0-15.0); Lymphocyte # 2.06 X10^3/ul (4.0); Lymphocyte % 15.8 % (19-41); Mean Corp Hgb Conc 28.5 g/dL (32-36); Mean Corpuscular Hgb 29.7 pg (27.0-32.0); Mean Corpuscular Volume 104.3 fL (81-99); Mean Platelet Vol. 10.9 fl (6.2-12.0); Monocyte# 1.04 X10^3/uL; NRBC Flagged by Analyzer 0.6 % (0-5); Neutrophil # 8.88 X10^3/uL (2.7-7.7); Neutrophil % 68.2 % (47-70); Platelet Count 360 K/mm3 (150-450); RBC Distribution Width CV 15.3 % (11.6-14.6); RBC Distribution Width SD 56.4 fl (35.1-43.9); Red Blood Count 2.76 M/mm3 (4.2-5.4)
[2020-07-04 06:50] LABS: ALB/GLOB Ratio 0.6 RATIO (0.9-2.4); AST(SGOT) 33 U/L (15-37); Alanine Aminotransfer ALT/SGPT 32 U/L (13-56); Albumin, Serum 2.3 g/dL (3.2-5.0); Alkaline Phosphatase 61 U/L (45-117); Anion Gap 3 (5-15); BUN 75 mg/dL (7-18); BUN/Creat Ratio 70.8 RATIO (10-20); Calcium,Total 10.2 mg/dL (8.5-10.1); Chloride 118 mmol/L (98-107); Creatinine, Serum 1.06 mg/dL (0.55-1.02); EST Glomerular Filtration Rate 55 mL/min (>60); Est Glom Filt Rate - Afr Amer 66 mL/min (>60); Estimated Creatinine Clearance 43.25 ml/min; Glucose 111 mg/dL (74-106); Potassium 3.7 mmol/L (3.5-5.1); Protein, Total 6.3 g/dL (6.4-8.2); Sodium Level 155 mmol/L (136-145)
--- NOTE | 2020-07-04 08:10 | RAD_ITS ---
STUDY: X-RAY CHEST REASON FOR EXAM: Female, 69 years old. SOB TECHNIQUE: Single AP portable view of the chest. COMPARISON: Comparison is made with prior study dated 07/01/2020. FINDINGS: An endotracheal tube is in situ. The tip is at 3 cm proximal to the dianne. An orogastric tube is seen with the tip in the fundal portion of the stomach. EKG electrodes are seen. Persistent infiltrate in the left lower lobe with a small left pleural effusion. Mild increased markings at the right lung base suggestive of a either early infiltrate and/or atelectasis. Normal size heart. Normal mediastinum and leonid. Normal visualized pulmonary arteries. There is atherosclerotic calcification of the aortic arch with tortuosity. There are diffuse degenerative changes of the visualized thoracic spine. Normal visualized ribs, clavicles, and shoulders. There is no demonstrated abnormality of the visualized soft tissue structures of the upper abdomen. RAD/Chest 1 View (Portable) IMPRESSION: Left lower lobe infiltrate with a small left pleural effusion. There has been no change. Electronically Signed: Ivan Arce, at 12:17 EDT , Service support ,
--- NOTE | 2020-07-04 08:19 | PN_ITS ---
Subjective: Patient did okay overnight. Oxygenation continues to be highly variable and patient did have a fever overnight. Chest x-ray was obtained this morning showing bilateral effusions. Patient still opens eyes and follows commands intermittently. Objective: Repeat chest x-ray this morning shows mild improvement in infiltrates with bilateral pleural effusions. General: - - Intubated and sedated. Morbidly obese. HEENT: Atraumatic, PERRLA, EOMI, Normocephalic, - - No scleral icterus or injection noted Oral: Moist Mucosa, No Gingival or Mucosal Lesions/ Ulcerations Neck: Supple, No Nodes, Trachea Midline Lungs: No wheeze, No rales, Diminished, Rhonchi, - - Symmetric expansion. Cardiovascular: Regular rate, Regular Rhythm, Normal S1, Normal S2, No murmurs, No rub noted, No Gallop Abdomen: Bowel Sounds Present, Soft, Non Tender, Non-Distended, Obese Extremities: No clubbing, No cyanosis, Edema Skin: - - No change compared to previous Musculoskeletal: No Tenderness to Palpation of Joints or Extremities Lymphatic: No Cervical, Supraclavicular, or Inguinal Adenopathy Neurological: Cranial nerves II-XII grossly intact, Neuro grossly intact Psych/Mental Status: Flat Affect Vital Signs Temp Pulse Resp BP Pulse Ox 37.7 C H 78 14 99/57 L 92 07/04/20 06:00 07/04/20 07:41 07/04/20 06:00 07/04/20 06:00 07/04/20 06:00 Oxygen Flow Rate (L/min) 70 Oxygen Delivery Method Mechanical Ventilator Weight: 106.7 kg Body Mass Index (BMI) 39.9 Intake and Output for Last 24 Hours 07/02/20 07/03/20 07/04/20 23:59 23:59 23:59 Intake Total 3149.19 / 3670.39 1814.09 / 2574.74 1463.75 / 1463.75 Output Total 2325 / 2515 2140 / 2390 575 / 575 Balance 824.19 / 1155.39 -325.91 / 184.74 888.75 / 888.75 Labs (Last 48 Hours) 07/02/20 07/02/20 07/02/20 12:27 16:51 18:48 WBC RBC Hgb Hct MCV MCH MCHC RDW Std Deviation RDW Coeff of Ankit Plt Count MPV Immature Gran % (Auto) Neut % (Auto) Lymph % (Auto) [place] % (Auto) Eos % (Auto) Baso % (Auto) Absolute Neuts (auto) Absolute Lymphs (auto) Nucleated RBC % Sodium Potassium Chloride Carbon Dioxide Anion Gap BUN Creatinine Estim Creat Clear Calc Est GFR (MDRD) Af Amer Est GFR (MDRD) Non-Af BUN/Creatinine Ratio Glucose Calcium Phosphorus Magnesium Total Bilirubin AST ALT Alkaline Phosphatase Total Creatine Kinase Total Protein Albumin Globulin Albumin/Globulin Ratio Triglycerides POC Glucose 132 H 152 H 127 H 07/02/20 07/03/20 07/03/20 23:36 05:41 06:15 WBC 14.1 H RBC 2.91 L Hgb 8.7 L Hct 30.3 L MCV 104.1 H MCH 29.9 MCHC 28.7 L RDW Std Deviation 55.9 H RDW Coeff of Ankit 15.0 H Plt Count 378 MPV 10.7 Immature Gran % (Auto) 4.700 H Neut % (Auto) 69.1 Lymph % (Auto) 14.5 L [place] % (Auto) 8.7 Eos % (Auto) 2.7 Baso % (Auto) 0.3 Absolute Neuts (auto) 9.7 H Absolute Lymphs (auto) 2.04 Nucleated RBC % 0.4 Sodium Potassium Chloride Carbon Dioxide Anion Gap BUN Creatinine Estim Creat Clear Calc Est GFR (MDRD) Af Amer Est GFR (MDRD) Non-Af BUN/Creatinine Ratio Glucose Calcium Phosphorus Magnesium Total Bilirubin AST ALT Alkaline Phosphatase Total Creatine Kinase Total Protein Albumin Globulin Albumin/Globulin Ratio Triglycerides POC Glucose 98 75 07/03/20 07/03/20 07/03/20 06:15 06:15 12:47 WBC RBC Hgb Hct MCV MCH MCHC RDW Std Deviation RDW Coeff of Ankit Plt Count MPV Immature Gran % (Auto) Neut % (Auto) Lymph % (Auto) [place] % (Auto) Eos % (Auto) Baso % (Auto) Absolute Neuts (auto) Absolute Lymphs (auto) Nucleated RBC % Sodium 154 H Potassium 3.7 Chloride 113 H Carbon Dioxide 39.0 H Anion Gap 2 L BUN 80 H Creatinine 1.05 H Estim Creat Clear Calc 43.67 Est GFR (MDRD) Af Amer 67 Est GFR (MDRD) Non-Af 55 L BUN/Creatinine Ratio 76.2 H Glucose 100 Calcium 9.7 Phosphorus 2.6 Magnesium 2.4 Total Bilirubin AST ALT Alkaline Phosphatase Total Creatine Kinase 259 H Total Protein Albumin Globulin Albumin/Globulin Ratio Triglycerides 202 H POC Glucose 129 H 07/03/20 07/03/20 07/04/20 18:37 23:10 05:38 WBC RBC Hgb Hct MCV MCH MCHC RDW Std Deviation RDW Coeff of Ankit Plt Count MPV Immature Gran % (Auto) Neut % (Auto) Lymph % (Auto) [place] % (Auto) Eos % (Auto) Baso % (Auto) Absolute Neuts (auto) Absolute Lymphs (auto) Nucleated RBC % Sodium Potassium Chloride Carbon Dioxide Anion Gap BUN Creatinine Estim Creat Clear Calc Est GFR (MDRD) Af Amer Est GFR (MDRD) Non-Af BUN/Creatinine Ratio Glucose Calcium Phosphorus Magnesium Total Bilirubin AST ALT Alkaline Phosphatase Total Creatine Kinase Total Protein Albumin Globulin Albumin/Globulin Ratio Triglycerides POC Glucose 123 H 91 102 07/04/20 07/04/20 06:25 06:25 WBC 13.0 H RBC 2.76 L Hgb 8.2 L Hct 28.8 L MCV 104.3 H MCH 29.7 MCHC 28.5 L RDW Std Deviation 56.4 H RDW Coeff of Ankit 15.3 H Plt Count 360 MPV 10.9 Immature Gran % (Auto) 4.100 H Neut % (Auto) 68.2 Lymph % (Auto) 15.8 L [place] % (Auto) 8.0 Eos % (Auto) 3.5 Baso % (Auto) 0.4 Absolute Neuts (auto) 8.9 H Absolute Lymphs (auto) 2.06 Nucleated RBC % 0.6 Sodium 155 H Potassium 3.7 Chloride 118 H Carbon Dioxide 34.0 H Anion Gap 3 L BUN 75 H Creatinine 1.06 H Estim Creat Clear Calc 43.25 Est GFR (MDRD) Af Amer 66 Est GFR (MDRD) Non-Af 55 L BUN/Creatinine Ratio 70.8 H Glucose 111 H Calcium 10.2 H Phosphorus Magnesium Total Bilirubin 0.30 AST 33 ALT 32 Alkaline Phosphatase 61 Total Creatine Kinase Total Protein 6.3 L Albumin 2.3 L Globulin 4.0 Albumin/Globulin Ratio 0.6 L Triglycerides POC Glucose Medical Necessity - Tobacco Use Smoking Status: Former smoker Assessment/Plan All Active Problems (Last Reviewed 06/24/20 @ 12:[address] Armond Killian MD) Hypoxemia (Acute) Cardiopulmonary arrest (Acute) Ventricular tachycardia (Acute) Ventricular fibrillation (Acute) Myocardial infarction (Acute) Acute heart failure (Acute) Chronic combined systolic and diastolic CHF (congestive heart failure) (Acute) RECOMMENDATIONS: 1. Continue to wean FiO2 and PEEP to maintain oxygen saturations at or above 90%. 2. Continue scheduled bronchodilator therapy and steroids. 3. Minimize sedation with a goal to maintain a RASS of -1 to 1. Continue scheduled Seroquel twice daily in addition to drips. 4. Continue appropriate GI prophylaxis, diuretics, tube feeds and antimicrobials. 5. Wean PEEP and FiO2 as tolerated 6. Spontaneous breathing and awakening trials per protocol 7. Add D5W in addition to increased free water by OG IMPRESSIONS: 1. Acute on chronic combined respiratory failure The patient presented to the emergency department from the TCU, after she apparently experienced an aspiration event leading to respiratory decompensation and worsening hypoxemia. There is concern that this hypoxemia may have precipitated an acute coronary event. The patient did suffer from cardiopulmonary arrest in the emergency department and did require intubation. Patient remains on high PEEP to have a spontaneous breathing trial. Patient appears to be responding to steroid and antibiotic therapy. Anticipate continuation for now at current levels until status stabilizes. Continue to wean FiO2 and PEEP as tolerated. Chest x-ray is showing bilateral effusions, but hypernatremia and hyperchloremia may be increasing respiratory demand through nonanion gap metabolic acidosis. Possibly attempt to transition to Precedex therapy to facilitate spontaneous breathing trial when patient is more appropriate. 2. Status post cardiopulmonary arrest Clinical concern that hypoxemia may have precipitated cardiac decompensation. Cardiology is currently following to assist with management. At this time, we will plan to continue current supportive measures. The patient may require eventual cardiac catheterization, once medically stabilized. Patient placed on anticoagulation with 10 a inhibitor 3. Encephalopathy Although there was initial concern for possible anoxic brain injury, the patient has improved from a mentation standpoint. Not exclude an element of anoxic encephalopathy given prolonged recovery/resuscitation event. We will not be able to assess until patient can be liberated from the ventilator. Plan to continue to minimize sedation as tolerated with a goal to maintain a RASS of -1 to 1. 4. Acute kidney injury Improving. Suspect a component of ischemic ATN in the setting of cardiopulmonary arrest. Continue to monitor urine output for now. No current indication for renal replacement therapy. Nephrology is currently following. Patient does have significant uremia despite relatively normal creatinine. Patient is not showing any signs of GI bleed at this time. Patient does have significant hypernatremia and hyperchloremia. Attempts at using free water flushes have been unsuccessful. Will initiate D5W, but will need to watch respiratory status closely 5. History of heart failure with preserved ejection fraction/paroxysmal atrial fibrillation Continue current supportive measures with additional medical intervention per cardiology recommendations. Patient on a 10 a inhibitor with no bleeding complications 6. Chronic pain syndrome/morbid obesity/hypertension/depression/anxiety/questionable COPD Complicates care, management, recovery and prognosis. Continue scheduled bronchodilator therapy. 7. Severe sepsis secondary to aspiration pneumonia versus sinusitis Patient has multiple etiologies for severe sepsis. Patient does have an aspiration pneumonia, but developed diarrhea and has an increasing leukocytosis overnight. C. difficile was negative. Patient has had some response to transition of NG to OG. CODE status: Succussion of CODE status at length with Dr. Davis including difference between FULL code, DNR-CCA and DNR-CC status. Following discussions about the differences in these status, the patient's daughter requested DNR-CCA CODE STATUS. TIME: 32 minutes of critical care time, independent of procedures, was spent addressing the patient's acute on chronic combined respiratory failure, status post cardiopulmonary arrest, encephalopathy, history of heart failure, acute kidney injury, review of all data and collaboration with the care team. (5:45 AM to 6:45 AM) 9xxxx: [id number] Critical care first hour
[2020-07-04] MEDS: Metoprolol Tartrate 25 MG Tablet 12.5 MG PO (08:59)
[2020-07-04] MEDS: Juven (unflavored) Packet 1 PACKET GT ×2 (08:59→17:34)
[2020-07-04] MEDS: predniSONE 20 MG Tablet 40 MG NG (08:59)
[2020-07-04] MEDS: Chlorhexidine 15 ML PO ×2 (09:01→21:08)
[2020-07-04] MEDS: APIXABAN 5 MG TABLET NG ×2 (09:01→21:10)
[2020-07-04] MEDS: Aspirin 81 MG TAB.CHEW NG (09:02)
[2020-07-04] MEDS: Polyethylene Glycol 3350 17 GM PACKET NG (09:02)
[2020-07-04] MEDS: Famotidine 20 MG Tablet NG ×2 (09:02→21:11)
[2020-07-04] MEDS: QUEtiapine 25 MG Tablet 50 MG PO ×2 (09:02→21:10)
[2020-07-04] MEDS: TITRATION PARAMETER CHANGE 1 EACH IV (09:48)
--- NOTE | 2020-07-04 10:35 | PCM.PN.HOSP ---
Patient Problems: Active and Suspected Problems (Last Reviewed 06/24/20 @ 12:[address] Armond Killian MD) Hypoxemia (Acute) Cardiopulmonary arrest (Acute) Ventricular tachycardia (Acute) Ventricular fibrillation (Acute) Myocardial infarction (Acute) Acute heart failure (Acute) Chronic combined systolic and diastolic CHF (congestive heart failure) (Acute) Subjective: Intubated and sedated however she does open her eyes to verbal stimuli as well as tactile stimuli. No issues overnight, chest x-ray this morning with bilateral pleural effusions Vitals/I&O's: Vital Signs Temp Pulse Resp BP Pulse Ox 99.6 F H 76 14 100/58 L 92 07/04/20 09:00 07/04/20 09:00 07/04/20 09:00 07/04/20 09:00 07/04/20 06:00 Oxygen Flow Rate (L/min) 70 Oxygen Delivery Method Mechanical Ventilator Weight: 235 lb 3.732 oz Body Mass Index (BMI) 39.9 Intake and Output for Last 24 Hours 07/02/20 07/03/20 07/04/20 23:59 23:59 23:59 Intake Total 3149.19 / 3670.39 1814.09 / 2574.74 1595.31 / 1595.31 Output Total 2325 / 2515 2140 / 2390 575 / 575 Balance 824.19 / 1155.39 -325.91 / 184.74 1020.31 / 1020.31 General: - - Intubated and sedated, she does respond to stimuli HEENT: Atraumatic, PERRLA, Normocephalic Oral: Moist Mucosa Neck: Supple, No JVD Lungs: Normal air movement, mild bilateral rhonchi, No wheeze, No rales, Diminished Cardiovascular: Regular rate and rhythm, Normal S1, Normal S2, No murmurs Abdomen: Soft, Non-Distended, No Hepato-splenomegaly Extremities: No edema, Capillary Refill Less than 3 Seconds Skin: No rashes, No breakdown Neurological: - - Intubated and sedated Psych/Mental Status: - - Intubated and sedated Laboratory Results 07/03/20 06:15: Total Creatine Kinase 259 H, Triglycerides 202 H 07/03/20 12:47: POC Glucose 129 H 07/03/20 18:37: POC Glucose 123 H 07/03/20 23:10: POC Glucose 91 07/04/20 05:38: POC Glucose 102 07/04/20 06:25: WBC 13.0 H, RBC 2.76 L, Hgb 8.2 L, Hct 28.8 L, MCV 104.3 H, MCH 29.7, MCHC 28.5 L, RDW Std Deviation 56.4 H, RDW Coeff of Ankit 15.3 H, Plt Count 360, MPV 10.9, Immature Gran % (Auto) 4.100 H, Neut % (Auto) 68.2, Lymph % (Auto) 15.8 L, [place] % (Auto) 8.0, Eos % (Auto) 3.5, Baso % (Auto) 0.4, Absolute Neuts (auto) 8.9 H, Absolute Lymphs (auto) 2.06, Nucleated RBC % 0.6 07/04/20 06:25: Sodium 155 H, Potassium 3.7, Chloride 118 H, Carbon Dioxide 34.0 H, Anion Gap 3 L, BUN 75 H, Creatinine 1.06 H, Estim Creat Clear Calc 43.25, Est GFR (MDRD) Af Amer 66, Est GFR (MDRD) Non-Af 55 L, BUN/Creatinine Ratio 70.8 H, Glucose 111 H, Calcium 10.2 H, Total Bilirubin 0.30, AST 33, ALT 32, Alkaline Phosphatase 61, Total Protein 6.3 L, Albumin 2.3 L, Globulin 4.0, Albumin/Globulin Ratio 0.6 L Current Medications Acetaminophen (Acetaminophen 650 Mg/20 Ml Udc) 650 mg NG Q4H PRN PRN PRN Reason: temp>101.0 Last Admin: 06/30/20 11:49 Dose: 650 mg Documented by: Albuterol Sulfate (Albuterol 2.5 Mg/3 Ml Vial.Neb.) 2.5 mg INHALATION Q2H PRN PRN PRN Reason: SOB/Wheezing Albuterol/Ipratropium (Ipratropium/Albuterol Sulfate 3 Ml Ampul.Neb) 3 ml INHALATION Q4H.RT KIM Last Admin: 07/04/20 07:57 Dose: 3 ml Documented by: Apixaban (Apixaban 5 Mg Tablet) 5 mg NG BID KIM Last Admin: 07/04/20 09:01 Dose: 5 mg Documented by: Aspirin (Aspirin 81 Mg Tab.Chew) 81 mg NG DAILY@0800 [facility] Last Admin: 07/04/20 09:02 Dose: 81 mg Documented by: Chlorhexidine Gluconate (Chlorhexidine 15 Ml) 15 ml PO BID [facility] Last Admin: 07/04/20 09:01 Dose: 15 ml Documented by: Dextrose (Dextrose 50%-Water 25 Gm/50 Ml Disp.Syrin) 0 gm IV X1 PRN; Protocol PRN Reason: Hypoglycemia Famotidine (Famotidine 20 Mg Tablet) 20 mg NG BID [facility] Last Admin: 07/04/20 09:02 Dose: 20 mg Documented by: Glucagon (Glucagon 1 Mg/Ml Syringe) 1 mg IM .X1 PRN PRN Reason: Hypoglycemia Heparin Sodium (Beef Lung) (Heparin Pf Lock 10 Units/Ml 50 Units/5 Ml Syringe) 50 units IV UD PRN PRN Reason: PICC Line Heparin Flush Sodium Chloride () 250 mls @ 15 mls/hr IV .[id number] PRN PRN Reason: Saline Flush Last Infusion: 06/28/20 21:35 Dose: Infused Documented by: Sodium Chloride () 250 mls @ 15 mls/hr IV .[id number] PRN PRN Reason: Additional IVPB Infusion Fentanyl Citrate 1,000 mcg/ (Sodium Chloride) 100 mls @ 5 mls/hr CONT INF .Q20H [facility]; Protocol Last Admin: 07/04/20 09:56 Dose: 150 mcg/hr, 15 mls/hr Documented by: Enteral Nutritional Formula (Vital High Protein) 1,000 mls @ 60 mls/hr GT .[id number] [facility] Last Admin: 07/04/20 08:45 Dose: 60 mls/hr Documented by: Propofol (Diprivan) 1,000 mg in 100 mls @ 6.402 mls/hr CONT INF .Q12H [facility]; Protocol Last Titration: 07/04/20 10:19 Dose: 35.3 mcg/kg/min, 22.6 mls/hr Documented by: Ceftriaxone Sodium 2 gm/ (Sodium Chloride) 50 mls @ 100 mls/hr IV Q24 [facility] Last Admin: 07/04/20 08:59 Dose: 100 mls/hr Documented by: Dextrose () 1,000 mls @ 75 mls/hr IV .[id number] [facility] Last Admin: 07/04/20 09:07 Dose: 75 mls/hr Documented by: Insulin Human Lispro (Insulin Lispro 100 Unit/Ml Insuln.Pen) 0 unit SC Q6 [facility]; Protocol Last Admin: 07/04/20 05:39 Dose: Not Given Documented by: L-Arginine/L-Glutamine/Calcium HMB (Rosendo (Unflavored) Packet) 1 packet GT BIDCM [facility] Last Admin: 07/04/20 08:59 Dose: 1 packet Documented by: Metoprolol Tartrate (Metoprolol Tartrate 25 Mg Tablet) 12.5 mg PO BID [facility] Last Admin: 07/04/20 08:59 Dose: 12.5 mg Documented by: Polyethylene Glycol (Polyethylene Glycol 3350 17 Gm Packet) 17 gm NG DAILY [facility] Last Admin: 07/04/20 09:02 Dose: 17 gm Documented by: Prednisone (Prednisone 20 Mg Tablet) 40 mg NG DAILY@0800 [facility] Last Admin: 07/04/20 08:59 Dose: 40 mg Documented by: Quetiapine Fumarate (Quetiapine 25 Mg Tablet) 50 mg PO BID [facility] Last Admin: 07/04/20 09:02 Dose: 50 mg Documented by: Senna/Docusate Sodium (Senna/Docusate Sodium 1 Tablet) 2 tablet NG BID [facility] Last Admin: 07/04/20 09:02 Dose: Not Given Documented by: Sodium Chloride (0.9% Saline Lock 10 Ml Syringe) 10 - 40 ml IV UD PRN PRN Reason: Open End PICC Flush Last Admin: 06/27/20 06:27 Dose: 40 ml Documented by: Sodium Chloride (0.9 % Nacl (Sterile) Posiflush 10 Ml) 10 - 40 ml IV UD PRN PRN Reason: Port access or dressing change Last Admin: 06/30/20 22:22 Dose: 20 ml Documented by: Sodium Chloride (0.9% Saline Lock 10 Ml Syringe) 10 - 40 ml IV UD PRN PRN Reason: SALINE FLUSH STROKE Vital Signs/Narrative: Vital Signs Temp Pulse Resp BP BP 07/04/20 09:00 99.6 F H 76 14 100/58 L 07/04/20 08:59 76 100/58 L 07/04/20 08:00 99.8 F H 73 14 110/63 07/04/20 07:41 78 07/04/20 07:00 99.9 F H 69 14 100/64 Medical Necessity - Tobacco Use Smoking Status: Former smoker Assessment/Plan All Active Problems (Last Reviewed 06/24/20 @ 12:[address] Armond Killian MD) Hypoxemia (Acute) Cardiopulmonary arrest (Acute) Ventricular tachycardia (Acute) Ventricular fibrillation (Acute) Myocardial infarction (Acute) Acute heart failure (Acute) Chronic combined systolic and diastolic CHF (congestive heart failure) (Acute) 1. Cardiopulmonary arrest secondary to acute [place] secondary to acute on chronic hypoxic respiratory failure secondary to aspiration pneumonia/acute metabolic encephalopathy/EMMANUEL likely ATN/hypernatremia -Remains intubated and sedated, continue to wean FiO2 and sedation -Transition from Unasyn to Rocephin -Continue with prednisone for possible history of COPD -Appreciate cardiology input, continue with heparin -EF of 45% with mild segmental systolic dysfunction -Renal function peaked at 3.24, improved to 1.06 today and her BUN is 75. She is making urine, appreciate nephrology assistance -D5W added given her hypernatremia 2. Acute on chronic combined CHF/paroxysmal A. fib/HTN/morbid obesity -appreciate cardiology's assistance -EF of 45% -We will continue with her rate control medication metoprolol -BMI of 40.6 we will discuss weight reduction following extubation 3. History of osteomyelitis -Patient amputation of her right second toe on 06/07/[address] Montilla -She was discharged to TCU on Rocephin, continue with Rocephin for now for her MSSA 4. Depression/anxiety - we will hold her home medications pending extubation -Continue with Seroquel DVT: Eliquis Inpatient E&M: [id number] Subs Hosp L2
[2020-07-04 11:15] LABS: Bedside Glucose 126 mg/dL (70-110)
--- NOTE | 2020-07-04 12:07 | PN.RENAL_ITS ---
Patient Problems: Active and Suspected Problems (Last Reviewed 06/24/20 @ 12:[address] Armond Killian MD) Hypoxemia (Acute) Cardiopulmonary arrest (Acute) Ventricular tachycardia (Acute) Ventricular fibrillation (Acute) Myocardial infarction (Acute) Acute heart failure (Acute) Chronic combined systolic and diastolic CHF (congestive heart failure) (Acute) Subjective: no sob/cp - Physical Exam Vitals/I&O's: Vital Signs Temp Pulse Resp BP Pulse Ox 99.6 F H 72 18 100/58 L 92 07/04/20 09:00 07/04/20 11:57 07/04/20 11:57 07/04/20 09:00 07/04/20 11:57 Oxygen Flow Rate (L/min) 70 Oxygen Delivery Method Mechanical Ventilator Weight: 106.7 kg Body Mass Index (BMI) 39.9 Intake and Output for Last 24 Hours 07/02/20 07/03/20 07/04/20 23:59 23:59 23:59 Intake Total 3149.19 / 3670.39 1814.09 / 2574.74 1595.31 / 1595.31 Output Total 2325 / 2515 2140 / 2390 575 / 575 Balance 824.19 / 1155.39 -325.91 / 184.74 1020.31 / 1020.31 General: No apparent distress HEENT: Atraumatic, Normocephalic, - - intubated Lungs: Clear to auscultation, Normal air movement Cardiovascular: Normal S1, Normal S2 Abdomen: Bowel Sounds Present, Soft, Obese Laboratory Results 07/03/20 06:15: Total Creatine Kinase 259 H, Triglycerides 202 H 07/03/20 12:47: POC Glucose 129 H 07/03/20 18:37: POC Glucose 123 H 07/03/20 23:10: POC Glucose 91 07/04/20 05:38: POC Glucose 102 07/04/20 06:25: WBC 13.0 H, RBC 2.76 L, Hgb 8.2 L, Hct 28.8 L, MCV 104.3 H, MCH 29.7, MCHC 28.5 L, RDW Std Deviation 56.4 H, RDW Coeff of Ankit 15.3 H, Plt Count 360, MPV 10.9, Immature Gran % (Auto) 4.100 H, Neut % (Auto) 68.2, Lymph % (Auto) 15.8 L, [place] % (Auto) 8.0, Eos % (Auto) 3.5, Baso % (Auto) 0.4, Absolute Neuts (auto) 8.9 H, Absolute Lymphs (auto) 2.06, Nucleated RBC % 0.6 07/04/20 06:25: Sodium 155 H, Potassium 3.7, Chloride 118 H, Carbon Dioxide 34.0 H, Anion Gap 3 L, BUN 75 H, Creatinine 1.06 H, Estim Creat Clear Calc 43.25, Est GFR (MDRD) Af Amer 66, Est GFR (MDRD) Non-Af 55 L, BUN/Creatinine Ratio 70.8 H, Glucose 111 H, Calcium 10.2 H, Total Bilirubin 0.30, AST 33, ALT 32, Alkaline Phosphatase 61, Total Protein 6.3 L, Albumin 2.3 L, Globulin 4.0, Albumin/Globulin Ratio 0.6 L 07/04/20 11:09: POC Glucose 126 H Current Medications Acetaminophen (Acetaminophen 650 Mg/20 Ml Udc) 650 mg NG Q4H PRN PRN PRN Reason: temp>101.0 Last Admin: 06/30/20 11:49 Dose: 650 mg Documented by: Albuterol Sulfate (Albuterol 2.5 Mg/3 Ml Vial.Neb.) 2.5 mg INHALATION Q2H PRN PRN PRN Reason: SOB/Wheezing Albuterol/Ipratropium (Ipratropium/Albuterol Sulfate 3 Ml Ampul.Neb) 3 ml INHALATION Q4H.RT [facility] Last Admin: 07/04/20 12:00 Dose: 3 ml Documented by: Apixaban (Apixaban 5 Mg Tablet) 5 mg NG BID [facility] Last Admin: 07/04/20 09:01 Dose: 5 mg Documented by: Aspirin (Aspirin 81 Mg Tab.Chew) 81 mg NG DAILY@0800 [facility] Last Admin: 07/04/20 09:02 Dose: 81 mg Documented by: Chlorhexidine Gluconate (Chlorhexidine 15 Ml) 15 ml PO BID [facility] Last Admin: 07/04/20 09:01 Dose: 15 ml Documented by: Dextrose (Dextrose 50%-Water 25 Gm/50 Ml Disp.Syrin) 0 gm IV X1 PRN; Protocol PRN Reason: Hypoglycemia Famotidine (Famotidine 20 Mg Tablet) 20 mg NG BID [facility] Last Admin: 07/04/20 09:02 Dose: 20 mg Documented by: Glucagon (Glucagon 1 Mg/Ml Syringe) 1 mg IM .X1 PRN PRN Reason: Hypoglycemia Heparin Sodium (Beef Lung) (Heparin Pf Lock 10 Units/Ml 50 Units/5 Ml Syringe) 50 units IV UD PRN PRN Reason: PICC Line Heparin Flush Sodium Chloride () 250 mls @ 15 mls/hr IV .[id number] PRN PRN Reason: Saline Flush Last Infusion: 06/28/20 21:35 Dose: Infused Documented by: Sodium Chloride () 250 mls @ 15 mls/hr IV .[id number] PRN PRN Reason: Additional IVPB Infusion Fentanyl Citrate 1,000 mcg/ (Sodium Chloride) 100 mls @ 5 mls/hr CONT INF .Q20H [facility]; Protocol Last Admin: 07/04/20 09:56 Dose: 150 mcg/hr, 15 mls/hr Documented by: Enteral Nutritional Formula (Vital High Protein) 1,000 mls @ 60 mls/hr GT .[id number] [facility] Last Admin: 07/04/20 08:45 Dose: 60 mls/hr Documented by: Propofol (Diprivan) 1,000 mg in 100 mls @ 6.402 mls/hr CONT INF .Q12H [facility]; Protocol Last Titration: 07/04/20 10:19 Dose: 35.3 mcg/kg/min, 22.6 mls/hr Documented by: Ceftriaxone Sodium 2 gm/ (Sodium Chloride) 50 mls @ 100 mls/hr IV Q24 [facility] Last Admin: 07/04/20 08:59 Dose: 100 mls/hr Documented by: Dextrose () 1,000 mls @ 75 mls/hr IV .[id number] [facility] Last Admin: 07/04/20 09:07 Dose: 75 mls/hr Documented by: Insulin Human Lispro (Insulin Lispro 100 Unit/Ml Insuln.Pen) 0 unit SC Q6 [facility]; Protocol Last Admin: 07/04/20 05:39 Dose: Not Given Documented by: L-Arginine/L-Glutamine/Calcium HMB (Rosendo (Unflavored) Packet) 1 packet GT BIDCM [facility] Last Admin: 07/04/20 08:59 Dose: 1 packet Documented by: Metoprolol Tartrate (Metoprolol Tartrate 25 Mg Tablet) 12.5 mg PO BID [facility] Last Admin: 07/04/20 08:59 Dose: 12.5 mg Documented by: Polyethylene Glycol (Polyethylene Glycol 3350 17 Gm Packet) 17 gm NG DAILY [facility] Last Admin: 07/04/20 09:02 Dose: 17 gm Documented by: Prednisone (Prednisone 20 Mg Tablet) 40 mg NG DAILY@0800 [facility] Last Admin: 07/04/20 08:59 Dose: 40 mg Documented by: Quetiapine Fumarate (Quetiapine 25 Mg Tablet) 50 mg PO BID [facility] Last Admin: 07/04/20 09:02 Dose: 50 mg Documented by: Senna/Docusate Sodium (Senna/Docusate Sodium 1 Tablet) 2 tablet NG BID [facility] Last Admin: 07/04/20 09:02 Dose: Not Given Documented by: Sodium Chloride (0.9% Saline Lock 10 Ml Syringe) 10 - 40 ml IV UD PRN PRN Reason: Open End PICC Flush Last Admin: 06/27/20 06:27 Dose: 40 ml Documented by: Sodium Chloride (0.9 % Nacl (Sterile) Posiflush 10 Ml) 10 - 40 ml IV UD PRN PRN Reason: Port access or dressing change Last Admin: 06/30/20 22:22 Dose: 20 ml Documented by: Sodium Chloride (0.9% Saline Lock 10 Ml Syringe) 10 - 40 ml IV UD PRN PRN Reason: SALINE FLUSH Medical Necessity - Tobacco Use Smoking Status: Former smoker Assessment/Plan All Active Problems (Last Reviewed 06/24/20 @ 12:[address] Armond Killian MD) Hypoxemia (Acute) Cardiopulmonary arrest (Acute) Ventricular tachycardia (Acute) Ventricular fibrillation (Acute) Myocardial infarction (Acute) Acute heart failure (Acute) Chronic combined systolic and diastolic CHF (congestive heart failure) (Acute) Hypernatremia EMMANUEL on CKD stage 3. Baseline SCr ~ 1.14 mg/dl EMMANUEL was ischemic ATN. SCr peaked at 3.2 mg/dL on 06/26/20. S/P CPA with prolonged resuscitation Acute MS . Cardiology is following. Acute hypoxic respiratory failure on vent SNa 155 continue 250 mL of water every 4 hours add d5w monitor SNa Creatinine stable in the low 1 range 1.06 today Avoid nephrotoxins and hypotension. keep MAP>65
--- NOTE | 2020-07-04 15:16 | PN.CARD_ITS ---
Subjectve: Patient is intubated, sedated Objective: Vital Signs Temp Pulse Resp BP Pulse Ox 99.1 F 67 14 90/58 L 90 07/04/20 14:00 07/04/20 14:55 07/04/20 14:55 07/04/20 14:00 07/04/20 14:55 Oxygen Flow Rate (L/min) 70 Oxygen Delivery Method Mechanical Ventilator Weight: 235 lb 3.732 oz Body Mass Index (BMI) 39.9 Intake and Output for Last 24 Hours 07/02/20 07/03/20 07/04/20 23:59 23:59 23:59 Intake Total 3149.19 / 3670.39 1814.09 / 2574.74 2273.15 / 2273.15 Output Total 2325 / 2515 2140 / 2390 1375 / 1375 Balance 824.19 / 1155.39 -325.91 / 184.74 898.15 / 898.15 General: - - Intubated, sedated HEENT: Atraumatic Lungs: Clear to auscultation Cardiovascular: Regular Rhythm Extremities: No edema Skin: No Rashes 07/04/20 06:25: WBC 13.0 H, RBC 2.76 L, Hgb 8.2 L, Hct 28.8 L, MCV 104.3 H, MCH 29.7, MCHC 28.5 L, Plt Count 360, MPV 10.9, Immature Gran % (Auto) 4.100 H, Neut % (Auto) 68.2, Lymph % (Auto) 15.8 L, [place] % (Auto) 8.0, Eos % (Auto) 3.5, Baso % (Auto) 0.4, Absolute Neuts (auto) 8.9 H, Nucleated RBC % 0.6 07/04/20 06:25: Sodium 155 H, Potassium 3.7, Chloride 118 H, Carbon Dioxide 34.0 H, Anion Gap 3 L, BUN 75 H, Creatinine 1.06 H, Est GFR (MDRD) Af Amer 66, Est GFR (MDRD) Non-Af 55 L, BUN/Creatinine Ratio 70.8 H, Glucose 111 H, Calcium 10.2 H, Total Bilirubin 0.30 Rhythm: EKG: ECHO: Stress Test: Cardiac Cath: PCI: CT Surgery: Holter monitor: EPS: PPM: CXR: Chest CT Scan: Medical Necessity - Tobacco Use Smoking Status: Former smoker Assessment/Plan 1. Cardiopulmonary arrest: The patient experienced an acute cardiopulmonary arrest. There is concerns as to whether or not this may have been initiated by aspiration pneumonia and hypoxemia. According to the medical records available for review this arrest was a prolonged event. Continue supportive care at this time. 2. Paroxysmal atrial fibrillation/ventricular tachycardia The patient has, per previous medical records from 2018, reports of paroxysmal atrial fibrillation as well as paroxysmal ventricular tachycardia. She has been evaluated for these issues at [facility]. It appears she was treated medically and underwent EPS/RFA of PVCs. At the moment he appears to be remaining in sinus rhythm. She has been noted to have evidence of PVCs and occasional episodes of nonsustained ventricular tachycardia. Continue beta-bairon. 3. CHF: Acute systolic She has a history of CHF. Appears compensated from the standpoint. Continue present management. We will sign off at this time. Please let us know if we can be of any further assistance.
[2020-07-04] MEDS: Propofol 10MG/Ml 1,000 MG/100 ML Bottle 22.4 MG CONT INF (16:31)
[2020-07-04] MEDS: Propofol 10MG/Ml 1,000 MG/100 ML Bottle 19.2 MG CONT INF (21:06)
[2020-07-04 21:11] LABS: Bedside Glucose 128 mg/dL (70-110)
[2020-07-05] VITALS (33 sets, daily range): BP systolic 86–120; BP diastolic 54–82; PULSE 67–109; RESP 14–30; TEMP 36.7–37.3; O2SAT 86–98
[2020-07-05 00:25] LABS: Bedside Glucose 145 mg/dL (70-110)
[2020-07-05] MEDS: Vital High Protein 1,000 ML 60 ML GT ×5 (01:22→21:45)
[2020-07-05] MEDS: Propofol 10MG/Ml 1,000 MG/100 ML Bottle 16 MG CONT INF (01:54)
[2020-07-05 03:07] LABS: Absolute Neutrophil Count 10.4 X10^3/uL (2.0-7.7); Basophil# 0.04 X10^3/uL; Basophil% 0.3 % (0-1); Eosinophil# 0.75 X10^3/uL; Eosinophils% 5.2 % (0-5); Hemoglobin 8.5 g/dL (12.0-15.0); Lymphocyte % 13.8 % (19-41); Mean Corp Hgb Conc 28.3 g/dL (32-36); Mean Corpuscular Hgb 29.8 pg (27.0-32.0); Mean Corpuscular Volume 105.3 fL (81-99); Mean Platelet Vol. 11.2 fl (6.2-12.0); Monocyte# 0.85 X10^3/uL; Monocyte% 5.9 % (0-10); NRBC Flagged by Analyzer 0.3 % (0-5); Neutrophil % 71.6 % (47-70); Platelet Count 350 K/mm3 (150-450); RBC Distribution Width CV 15.3 % (11.6-14.6); RBC Distribution Width SD 57.7 fl (35.1-43.9); Red Blood Count 2.85 M/mm3 (4.2-5.4); White Blood Count 14.5 K/mm3 (4.4-11.0)
[2020-07-05] MEDS: TITRATION PARAMETER CHANGE 1 EACH IV (03:26)
[2020-07-05 03:28] LABS: Anion Gap 6 (5-15); BUN 73 mg/dL (7-18); BUN/Creat Ratio 71.6 RATIO (10-20); Calcium,Total 9.2 mg/dL (8.5-10.1); Chloride 112 mmol/L (98-107); Creatinine, Serum 1.02 mg/dL (0.55-1.02); EST Glomerular Filtration Rate 57 mL/min (>60); Est Glom Filt Rate - Afr Amer 69 mL/min (>60); Estimated Creatinine Clearance 44.95 ml/min; Glucose 140 mg/dL (74-106); Potassium 3.9 mmol/L (3.5-5.1); Sodium Level 150 mmol/L (136-145)
[2020-07-05] MEDS: Ipratropium/Albuterol Sulfate 3 ML AMPUL.NEB INHALATION ×6 (03:30→23:49)
[2020-07-05 05:36] LABS: Bedside Glucose 109 mg/dL (70-110)
[2020-07-05] MEDS: Propofol 10MG/Ml 1,000 MG/100 ML Bottle 16.3 MG CONT INF ×3 (08:06→20:00)
--- NOTE | 2020-07-05 08:42 | PCM.PN.INT ---
Subjective: Patient did well overnight. Oxygenation continues to be an issue. Patient has remained hemodynamically stable and no fever was reported overnight. Blood sugars have been acceptable. Patient continues to follow commands intermittently General: Alert, Cooperative - Intermittently, No apparent distress, - - Good vent synchrony. Morbidly obese. HEENT: Atraumatic, PERRLA, EOMI, Normocephalic, - - No scleral icterus or injection noted Oral: Moist Mucosa, No Gingival or Mucosal Lesions/ Ulcerations Neck: Supple, No Nodes, Trachea Midline Lungs: No wheeze, No rales, Diminished, Rhonchi - Right greater than left Cardiovascular: Regular rate, Regular Rhythm, Normal S1, Normal S2, No murmurs, No rub noted, No Gallop Abdomen: Bowel Sounds Present, Soft, Non Tender, Non-Distended, Obese Extremities: No clubbing, No cyanosis, Edema Skin: No rashes, No breakdown Musculoskeletal: No Tenderness to Palpation of Joints or Extremities Lymphatic: No Cervical, Supraclavicular, or Inguinal Adenopathy Neurological: Cranial nerves II-XII grossly intact, Neuro grossly intact, Motor Exam 5/5 strength throughout Psych/Mental Status: Flat Affect Vital Signs Temp Pulse Resp BP Pulse Ox 37.1 C 83 16 113/79 88 07/05/20 06:00 07/05/20 06:00 07/05/20 06:00 07/05/20 06:00 07/05/20 06:00 Oxygen Flow Rate (L/min) 70 Oxygen Delivery Method Mechanical Ventilator Weight: 108.7 kg Body Mass Index (BMI) 39.9 Intake and Output for Last 24 Hours 07/03/20 07/04/20 07/05/20 23:59 23:59 23:59 Intake Total 1814.09 / 2574.74 4288.54 / 4315.49 1209.80 / 1209.80 Output Total 2140 / 2390 1775 / 1775 875 / 875 Balance -325.91 / 184.74 2513.54 / 2540.49 334.80 / 334.80 Labs (Last 48 Hours) 07/03/20 07/03/20 07/03/20 06:15 12:47 18:37 WBC RBC Hgb Hct MCV MCH MCHC RDW Std Deviation RDW Coeff of Ankit Plt Count MPV Immature Gran % (Auto) Neut % (Auto) Lymph % (Auto) [place] % (Auto) Eos % (Auto) Baso % (Auto) Absolute Neuts (auto) Absolute Lymphs (auto) Nucleated RBC % Sodium Potassium Chloride Carbon Dioxide Anion Gap BUN Creatinine Estim Creat Clear Calc Est GFR (MDRD) Af Amer Est GFR (MDRD) Non-Af BUN/Creatinine Ratio Glucose Calcium Total Bilirubin AST ALT Alkaline Phosphatase Total Creatine Kinase 259 H Total Protein Albumin Globulin Albumin/Globulin Ratio Triglycerides 202 H POC Glucose 129 H 123 H 07/03/20 07/04/20 07/04/20 23:10 05:38 06:25 WBC 13.0 H RBC 2.76 L Hgb 8.2 L Hct 28.8 L MCV 104.3 H MCH 29.7 MCHC 28.5 L RDW Std Deviation 56.4 H RDW Coeff of Ankit 15.3 H Plt Count 360 MPV 10.9 Immature Gran % (Auto) 4.100 H Neut % (Auto) 68.2 Lymph % (Auto) 15.8 L [place] % (Auto) 8.0 Eos % (Auto) 3.5 Baso % (Auto) 0.4 Absolute Neuts (auto) 8.9 H Absolute Lymphs (auto) 2.06 Nucleated RBC % 0.6 Sodium Potassium Chloride Carbon Dioxide Anion Gap BUN Creatinine Estim Creat Clear Calc Est GFR (MDRD) Af Amer Est GFR (MDRD) Non-Af BUN/Creatinine Ratio Glucose Calcium Total Bilirubin AST ALT Alkaline Phosphatase Total Creatine Kinase Total Protein Albumin Globulin Albumin/Globulin Ratio Triglycerides POC Glucose 91 102 07/04/20 07/04/20 07/04/20 06:25 11:09 18:08 WBC RBC Hgb Hct MCV MCH MCHC RDW Std Deviation RDW Coeff of Ankit Plt Count MPV Immature Gran % (Auto) Neut % (Auto) Lymph % (Auto) [place] % (Auto) Eos % (Auto) Baso % (Auto) Absolute Neuts (auto) Absolute Lymphs (auto) Nucleated RBC % Sodium 155 H Potassium 3.7 Chloride 118 H Carbon Dioxide 34.0 H Anion Gap 3 L BUN 75 H Creatinine 1.06 H Estim Creat Clear Calc 43.25 Est GFR (MDRD) Af Amer 66 Est GFR (MDRD) Non-Af 55 L BUN/Creatinine Ratio 70.8 H Glucose 111 H Calcium 10.2 H Total Bilirubin 0.30 AST 33 ALT 32 Alkaline Phosphatase 61 Total Creatine Kinase Total Protein 6.3 L Albumin 2.3 L Globulin 4.0 Albumin/Globulin Ratio 0.6 L Triglycerides POC Glucose 126 H 128 H 07/05/20 07/05/20 07/05/20 00:03 02:50 02:50 WBC 14.5 H RBC 2.85 L Hgb 8.5 L Hct 30.0 L MCV 105.3 H MCH 29.8 MCHC 28.3 L RDW Std Deviation 57.7 H RDW Coeff of Ankit 15.3 H Plt Count 350 MPV 11.2 Immature Gran % (Auto) 3.200 H Neut % (Auto) 71.6 H Lymph % (Auto) 13.8 L [place] % (Auto) 5.9 Eos % (Auto) 5.2 H Baso % (Auto) 0.3 Absolute Neuts (auto) 10.4 H Absolute Lymphs (auto) 2.00 Nucleated RBC % 0.3 Sodium 150 H Potassium 3.9 Chloride 112 H Carbon Dioxide 32.0 Anion Gap 6 BUN 73 H Creatinine 1.02 Estim Creat Clear Calc 44.95 Est GFR (MDRD) Af Amer 69 Est GFR (MDRD) Non-Af 57 L BUN/Creatinine Ratio 71.6 H Glucose 140 H Calcium 9.2 Total Bilirubin AST ALT Alkaline Phosphatase Total Creatine Kinase Total Protein Albumin Globulin Albumin/Globulin Ratio Triglycerides POC Glucose 145 H 07/05/20 05:28 WBC RBC Hgb Hct MCV MCH MCHC RDW Std Deviation RDW Coeff of Ankit Plt Count MPV Immature Gran % (Auto) Neut % (Auto) Lymph % (Auto) [place] % (Auto) Eos % (Auto) Baso % (Auto) Absolute Neuts (auto) Absolute Lymphs (auto) Nucleated RBC % Sodium Potassium Chloride Carbon Dioxide Anion Gap BUN Creatinine Estim Creat Clear Calc Est GFR (MDRD) Af Amer Est GFR (MDRD) Non-Af BUN/Creatinine Ratio Glucose Calcium Total Bilirubin AST ALT Alkaline Phosphatase Total Creatine Kinase Total Protein Albumin Globulin Albumin/Globulin Ratio Triglycerides POC Glucose 109 Clinical Impression(s) from Imaging Studies Chest X-Ray 07/04/20 08:10 IMPRESSION: Left lower lobe infiltrate with a small left pleural effusion. There has been no change. Electronically Signed: Ivan Arce, at 12:17 EDT , Service support , Medical Necessity - Tobacco Use Smoking Status: Former smoker Assessment/Plan All Active Problems (Last Reviewed 06/24/20 @ 12:[address] Armond Killian MD) Hypoxemia (Acute) Cardiopulmonary arrest (Acute) Ventricular tachycardia (Acute) Ventricular fibrillation (Acute) Myocardial infarction (Acute) Acute heart failure (Acute) Chronic combined systolic and diastolic CHF (congestive heart failure) (Acute) RECOMMENDATIONS: 1. Continue to wean FiO2 and PEEP to maintain oxygen saturations at or above 90%. 2. Continue scheduled bronchodilator therapy and steroids. 3. Minimize sedation with a goal to maintain a RASS of -1 to 1. Continue scheduled Seroquel twice daily in addition to drips. 4. Continue appropriate GI prophylaxis, diuretics, tube feeds and antimicrobials. 5. Wean PEEP and FiO2 as tolerated 6. Spontaneous breathing and awakening trials per protocol 7. Continue D5W in addition to increased free water by OG for another 24 hours IMPRESSIONS: 1. Acute on chronic combined respiratory failure The patient presented to the emergency department from the TCU, after she apparently experienced an aspiration event leading to respiratory decompensation and worsening hypoxemia. There is concern that this hypoxemia may have precipitated an acute coronary event. The patient did suffer from cardiopulmonary arrest in the emergency department and did require intubation. Patient remains on high PEEP to have a spontaneous breathing trial. Patient significantly positive over the last 24 hours secondary to D5W. However, sodium and chloride appear to be improving. Anticipate continuing D5 for another 24 hours. High clinical suspicion that tracheostomy and PEG will be necessary and this may need to be arranged early next week. 2. Status post cardiopulmonary arrest Clinical concern that hypoxemia may have precipitated cardiac decompensation. Cardiology is currently following to assist with management. At this time, we will plan to continue current supportive measures. The patient may require eventual cardiac catheterization, once medically stabilized. Patient placed on anticoagulation with 10 a inhibitor 3. Encephalopathy Although there was initial concern for possible anoxic brain injury, the patient has improved from a mentation standpoint. Not exclude an element of anoxic encephalopathy given prolonged recovery/resuscitation event. We will not be able to assess until patient can be liberated from the ventilator. Plan to continue to minimize sedation as tolerated with a goal to maintain a RASS of -1 to 1. 4. Acute kidney injury Improving. Suspect a component of ischemic ATN in the setting of cardiopulmonary arrest. Continue to monitor urine output for now. No current indication for renal replacement therapy. Nephrology is currently following. Patient does have significant uremia despite relatively normal creatinine, but this appears to be responding to free water. Patient is not showing any signs of GI bleed at this time. Patient does have significant hypernatremia and hyperchloremia. Attempts at using free water flushes have been unsuccessful. Will likely only be able to continue free water for another 24 hours given respiratory status. 5. History of heart failure with preserved ejection fraction/paroxysmal atrial fibrillation Continue current supportive measures with additional medical intervention per cardiology recommendations. Patient on a 10 a inhibitor with no bleeding complications 6. Chronic pain syndrome/morbid obesity/hypertension/depression/anxiety/questionable COPD Complicates care, management, recovery and prognosis. Continue scheduled bronchodilator therapy. 7. Severe sepsis secondary to aspiration pneumonia versus sinusitis Patient has multiple etiologies for severe sepsis. Patient does have an aspiration pneumonia, but developed diarrhea and has an increasing leukocytosis overnight. C. difficile was negative. Patient has had some response to transition of NG to OG. CODE status: Succussion of CODE status at length with Dr. Davis including difference between FULL code, DNR-CCA and DNR-CC status. Following discussions about the differences in these status, the patient's daughter requested DNR-CCA CODE STATUS. TIME: 34 minutes of critical care time, independent of procedures, was spent addressing the patient's acute on chronic combined respiratory failure, status post cardiopulmonary arrest, encephalopathy, history of heart failure, acute kidney injury, review of all data and collaboration with the care team. (6:30 AM to 7:30 AM) [id number]: [id number] Critical care first hour
--- NOTE | 2020-07-05 10:44 | PN_ITS ---
Patient Problems: Active and Suspected Problems (Last Reviewed 06/24/20 @ 12:[address] Armond Killian MD) Hypoxemia (Acute) Cardiopulmonary arrest (Acute) Ventricular tachycardia (Acute) Ventricular fibrillation (Acute) Myocardial infarction (Acute) Acute heart failure (Acute) Chronic combined systolic and diastolic CHF (congestive heart failure) (Acute) Subjective: No issues overnight, Continues to be on 90% FiO2 Vitals/I&O's: Vital Signs Temp Pulse Resp BP Pulse Ox 98.8 F 84 16 95/65 92 07/05/20 06:00 07/05/20 09:00 07/05/20 09:00 07/05/20 09:00 07/05/20 09:00 Oxygen Flow Rate (L/min) 70 Oxygen Delivery Method Mechanical Ventilator Weight: 239 lb 10.279 oz Body Mass Index (BMI) 39.9 Intake and Output for Last 24 Hours 07/03/20 07/04/20 07/05/20 23:59 23:59 23:59 Intake Total 1814.09 / 2574.74 4288.54 / 4315.49 1303.27 / 1303.27 Output Total 2140 / 2390 1775 / 1775 1075 / 1075 Balance -325.91 / 184.74 2513.54 / 2540.49 228.27 / 228.27 General: - - Intubated and sedated, she does respond to stimuli HEENT: Atraumatic, PERRLA, Normocephalic Oral: Moist Mucosa Neck: Supple, No JVD Lungs: Normal air movement, mild bilateral rhonchi, No wheeze, No rales, Diminished Cardiovascular: Regular rate and rhythm, Normal S1, Normal S2, No murmurs Abdomen: Soft, Non-Distended, No Hepato-splenomegaly Extremities: No edema, Capillary Refill Less than 3 Seconds Skin: No rashes, No breakdown Neurological: - - Intubated and sedated Psych/Mental Status: - - Intubated and sedated Laboratory Results 07/04/20 11:09: POC Glucose 126 H 07/04/20 18:08: POC Glucose 128 H 07/05/20 00:03: POC Glucose 145 H 07/05/20 02:50: WBC 14.5 H, RBC 2.85 L, Hgb 8.5 L, Hct 30.0 L, MCV 105.3 H, MCH 29.8, MCHC 28.3 L, RDW Std Deviation 57.7 H, RDW Coeff of Ankit 15.3 H, Plt Count 350, MPV 11.2, Immature Gran % (Auto) 3.200 H, Neut % (Auto) 71.6 H, Lymph % (Auto) 13.8 L, Christian % (Auto) 5.9, Eos % (Auto) 5.2 H, Baso % (Auto) 0.3, Absolute Neuts (auto) 10.4 H, Absolute Lymphs (auto) 2.00, Nucleated RBC % 0.3 07/05/20 02:50: Sodium 150 H, Potassium 3.9, Chloride 112 H, Carbon Dioxide 32.0, Anion Gap 6, BUN 73 H, Creatinine 1.02, Estim Creat Clear Calc 44.95, Est GFR (MDRD) Af Amer 69, Est GFR (MDRD) Non-Af 57 L, BUN/Creatinine Ratio 71.6 H, Glucose 140 H, Calcium 9.2 07/05/20 05:28: POC Glucose 109 Current Medications Acetaminophen (Acetaminophen 650 Mg/20 Ml Udc) 650 mg NG Q4H PRN PRN PRN Reason: temp>101.0 Last Admin: 06/30/20 11:49 Dose: 650 mg Documented by: Albuterol Sulfate (Albuterol 2.5 Mg/3 Ml Vial.Neb.) 2.5 mg INHALATION Q2H PRN PRN PRN Reason: SOB/Wheezing Albuterol/Ipratropium (Ipratropium/Albuterol Sulfate 3 Ml Ampul.Neb) 3 ml INHALATION Q4H.RT [facility] Last Admin: 07/05/20 07:00 Dose: 3 ml Documented by: Apixaban (Apixaban 5 Mg Tablet) 5 mg NG BID [facility] Last Admin: 07/04/20 21:10 Dose: 5 mg Documented by: Aspirin (Aspirin 81 Mg Tab.Chew) 81 mg NG DAILY@0800 [facility] Last Admin: 07/04/20 09:02 Dose: 81 mg Documented by: Chlorhexidine Gluconate (Chlorhexidine 15 Ml) 15 ml PO BID [facility] Last Admin: 07/04/20 21:08 Dose: 15 ml Documented by: Dextrose (Dextrose 50%-Water 25 Gm/50 Ml Disp.Syrin) 0 gm IV X1 PRN; Protocol PRN Reason: Hypoglycemia Famotidine (Famotidine 20 Mg Tablet) 20 mg NG BID KIM Last Admin: 07/04/20 21:11 Dose: 20 mg Documented by: Glucagon (Glucagon 1 Mg/Ml Syringe) 1 mg IM .X1 PRN PRN Reason: Hypoglycemia Heparin Sodium (Beef Lung) (Heparin Pf Lock 10 Units/Ml 50 Units/5 Ml Syringe) 50 units IV UD PRN PRN Reason: PICC Line Heparin Flush Sodium Chloride () 250 mls @ 15 mls/hr IV .[id number] PRN PRN Reason: Saline Flush Last Infusion: 06/28/20 21:35 Dose: Infused Documented by: Sodium Chloride () 250 mls @ 15 mls/hr IV .[id number] PRN PRN Reason: Additional IVPB Infusion Fentanyl Citrate 1,000 mcg/ (Sodium Chloride) 100 mls @ 5 mls/hr CONT INF .Q20H KIM; Protocol Last Titration: 07/05/20 09:00 Dose: 150 mcg/hr, 15 mls/hr Documented by: Enteral Nutritional Formula (Vital High Protein) 1,000 mls @ 60 mls/hr GT .[id number] KIM Last Admin: 07/05/20 05:41 Dose: 60 mls/hr Documented by: Propofol (Diprivan) 1,000 mg in 100 mls @ 6.522 mls/hr CONT INF .Q12H KIM; Protocol Last Titration: 07/05/20 09:00 Dose: 25 mcg/kg/min, 16.3 mls/hr Documented by: Ceftriaxone Sodium 2 gm/ (Sodium Chloride) 50 mls @ 100 mls/hr IV Q24 KIM Last Infusion: 07/04/20 15:10 Dose: Infused Documented by: Dextrose () 1,000 mls @ 75 mls/hr IV .[id number] KIM Last Infusion: 07/05/20 04:45 Dose: 75 mls/hr Documented by: Insulin Human Lispro (Insulin Lispro 100 Unit/Ml Insuln.Pen) 0 unit SC Q6 KIM; Protocol Last Admin: 07/05/20 05:42 Dose: Not Given Documented by: L-Arginine/L-Glutamine/Calcium HMB (Rosendo (Unflavored) Packet) 1 packet GT BIDCM KIM Last Admin: 07/04/20 17:34 Dose: 1 packet Documented by: Metoprolol Tartrate (Metoprolol Tartrate 25 Mg Tablet) 12.5 mg PO BID [facility] Last Admin: 07/04/20 21:10 Dose: Not Given Documented by: Polyethylene Glycol (Polyethylene Glycol 3350 17 Gm Packet) 17 gm NG DAILY [facility] Last Admin: 07/04/20 09:02 Dose: 17 gm Documented by: Prednisone (Prednisone 20 Mg Tablet) 40 mg NG DAILY@0800 [facility] Last Admin: 07/04/20 08:59 Dose: 40 mg Documented by: Quetiapine Fumarate (Quetiapine 25 Mg Tablet) 50 mg PO BID [facility] Last Admin: 07/04/20 21:10 Dose: 50 mg Documented by: Senna/Docusate Sodium (Senna/Docusate Sodium 1 Tablet) 2 tablet NG BID [facility] Last Admin: 07/04/20 21:11 Dose: Not Given Documented by: Sodium Chloride (0.9% Saline Lock 10 Ml Syringe) 10 - 40 ml IV UD PRN PRN Reason: Open End PICC Flush Last Admin: 06/27/20 06:27 Dose: 40 ml Documented by: Sodium Chloride (0.9 % Nacl (Sterile) Posiflush 10 Ml) 10 - 40 ml IV UD PRN PRN Reason: Port access or dressing change Last Admin: 06/30/20 22:22 Dose: 20 ml Documented by: Sodium Chloride (0.9% Saline Lock 10 Ml Syringe) 10 - 40 ml IV UD PRN PRN Reason: SALINE FLUSH STROKE Vital Signs/Narrative: Vital Signs Pulse Resp BP Pulse Ox 07/05/20 09:00 84 16 95/65 92 07/05/20 08:00 80 18 92/61 92 07/05/20 07:00 88 16 120/75 92 Medical Necessity - Tobacco Use Smoking Status: Former smoker Assessment/Plan All Active Problems (Last Reviewed 06/24/20 @ 12:[address] Armond Killian MD) Hypoxemia (Acute) Cardiopulmonary arrest (Acute) Ventricular tachycardia (Acute) Ventricular fibrillation (Acute) Myocardial infarction (Acute) Acute heart failure (Acute) Chronic combined systolic and diastolic CHF (congestive heart failure) (Acute) 1. Cardiopulmonary arrest secondary to acute VT secondary to acute on chronic hypoxic respiratory failure secondary to aspiration pneumonia/acute metabolic encephalopathy/EMMANUEL likely ATN/hypernatremia -Remains intubated and sedated, continue to wean FiO2 and sedation -Transition from Unasyn to Rocephin -Continue with prednisone for possible history of COPD -Appreciate cardiology input, continue with Eliquis -EF of 45% with mild segmental systolic dysfunction -Renal function peaked at 3.24, improved to 1.02 today and her BUN is 73. She is making urine, appreciate nephrology assistance -D5W added given her hypernatremia -She will likely need trach and PEG next week 2. Acute on chronic combined CHF/paroxysmal A. fib/HTN/morbid obesity -appreciate cardiology's assistance -EF of 45% -We will continue with her rate control medication metoprolol -BMI of 40.6 we will discuss weight reduction following extubation 3. History of osteomyelitis -Patient amputation of her right second toe on 06/07/[address] Montilla -She was discharged to TCU on Rocephin, continue with Rocephin for now for her MSSA 4. Depression/anxiety - we will hold her home medications pending extubation -Continue with Seroquel DVT: Marce Inpatient E&M: 15113 Subs Hosp L2
[2020-07-05] MEDS: predniSONE 20 MG Tablet 40 MG NG (11:49)
[2020-07-05] MEDS: Famotidine 20 MG Tablet NG ×2 (11:49→21:45)
[2020-07-05] MEDS: QUEtiapine 25 MG Tablet 50 MG PO ×2 (11:50→21:45)
[2020-07-05] MEDS: Chlorhexidine 15 ML PO ×2 (11:51→21:45)
[2020-07-05] MEDS: APIXABAN 5 MG TABLET NG ×2 (11:51→21:45)
[2020-07-05] MEDS: Juven (unflavored) Packet 1 PACKET GT ×2 (11:51→17:22)
[2020-07-05] MEDS: Aspirin 81 MG TAB.CHEW NG (11:52)
[2020-07-05 12:30] LABS: Bedside Glucose 118 mg/dL (70-110)
[2020-07-05] MEDS: Insulin Lispro 100 UNIT/ML INSULN.PEN SC (17:22)
[2020-07-05 17:30] LABS: Bedside Glucose 190 mg/dL (70-110)
[2020-07-05] MEDS: Senna/Docusate Sodium 1 Tablet 2 TABLET NG (21:45)
[2020-07-06] VITALS (43 sets, daily range): BP systolic 88–136; BP diastolic 53–83; PULSE 68–112; RESP 13–40; TEMP 36.8–37.3; O2SAT 48–98
[2020-07-06] MEDS: Propofol 10MG/Ml 1,000 MG/100 ML Bottle 16.3 MG CONT INF (01:02)
[2020-07-06 01:41] LABS: Bedside Glucose 118 mg/dL (70-110)
[2020-07-06] MEDS: Ipratropium/Albuterol Sulfate 3 ML AMPUL.NEB INHALATION ×4 (02:10→22:54)
[2020-07-06] MEDS: Vital High Protein 1,000 ML 60 ML GT ×3 (03:28→17:02)
[2020-07-06] MEDS: 0.9% Saline Lock 10 ML Syringe IV ×3 (03:30→20:29)
[2020-07-06 03:39] LABS: Absolute Lymphocyte Count 1.29 X10^3/uL (0.83-4.51); Absolute Neutrophil Count 16.7 X10^3/uL (2.0-7.7); Basophil# 0.06 X10^3/uL; Basophil% 0.3 % (0-1); Hematocrit 28.5 % (37-47); Hemoglobin 8.2 g/dL (12.0-15.0); Lymphocyte # 1.29 X10^3/ul (4.0); Lymphocyte % 6.5 % (19-41); Mean Corp Hgb Conc 28.8 g/dL (32-36); Mean Corpuscular Hgb 29.6 pg (27.0-32.0); Mean Corpuscular Volume 102.9 fL (81-99); Mean Platelet Vol. 10.3 fl (6.2-12.0); Monocyte# 0.79 X10^3/uL; NRBC Flagged by Analyzer 0.1 % (0-5); Neutrophil % 84.1 % (47-70); Platelet Count 341 K/mm3 (150-450); RBC Distribution Width CV 14.8 % (11.6-14.6); RBC Distribution Width SD 55.8 fl (35.1-43.9); Red Blood Count 2.77 M/mm3 (4.2-5.4); White Blood Count 19.9 K/mm3 (4.4-11.0)
[2020-07-06 03:59] LABS: Anion Gap 6 (5-15); BUN 65 mg/dL (7-18); BUN/Creat Ratio 72.1 RATIO (10-20); Calcium,Total 9.3 mg/dL (8.5-10.1); Chloride 107 mmol/L (98-107); EST Glomerular Filtration Rate 66 mL/min (>60); Est Glom Filt Rate - Afr Amer 79 mL/min (>60); Estimated Creatinine Clearance 50.94 ml/min; Glucose 105 mg/dL (74-106); Potassium 4.2 mmol/L (3.5-5.1); Sodium Level 145 mmol/L (136-145)
[2020-07-06] MEDS: TITRATION PARAMETER CHANGE 1 EACH IV (04:21)
[2020-07-06] MEDS: Propofol 10MG/Ml 1,000 MG/100 ML Bottle 16.6 MG CONT INF ×2 (05:28→23:35)
[2020-07-06 05:31] LABS: Bedside Glucose 98 mg/dL (70-110)
--- NOTE | 2020-07-06 07:27 | PCM.PN.INT ---
Subjective: Patient did okay overnight. Patient continues to respond to verbal stimuli, but oxygen requirements have been highly variable. Blood pressures have remained stable. No significant ectopy has been reported. Patient is tolerating tube feeds. General: - - Opens eyes to voice. Good vent synchrony noted. Morbidly obese. HEENT: Atraumatic, PERRLA, EOMI, Normocephalic, - - No scleral icterus or injection noted Oral: Moist Mucosa, No Gingival or Mucosal Lesions/ Ulcerations Neck: Supple, No JVD, No Nodes, Trachea Midline Lungs: No wheeze, Diminished, Rales - Right base, - - Symmetric expansion. Cardiovascular: Regular rate, Regular Rhythm, Normal S1, Normal S2, No murmurs, No rub noted, No Gallop Abdomen: Bowel Sounds Present, Soft, Non Tender, Non-Distended, Obese Extremities: No clubbing, No cyanosis, Edema Skin: - - No change compared to previous Musculoskeletal: No Tenderness to Palpation of Joints or Extremities Lymphatic: No Cervical, Supraclavicular, or Inguinal Adenopathy Neurological: Cranial nerves II-XII grossly intact, Neuro grossly intact, Motor Exam 5/5 strength throughout Psych/Mental Status: Flat Affect Vital Signs Temp Pulse Resp BP Pulse Ox 37.2 C 78 14 88/53 L 89 07/06/20 07:00 07/06/20 07:00 07/06/20 07:00 07/06/20 07:00 07/06/20 07:00 Oxygen Flow Rate (L/min) 70 Oxygen Delivery Method Mechanical Ventilator Weight: 110.4 kg Body Mass Index (BMI) 39.9 Intake and Output for Last 24 Hours 07/04/20 07/05/20 07/06/20 23:59 23:59 22:59 Intake Total 4288.54 / 4315.49 3202.45 / 3233.75 1830.00 / 1830.00 Output Total 1775 / 1775 2225 / 2225 475 / 475 Balance 2513.54 / 2540.49 977.45 / 1008.75 1355.00 / 1355.00 Labs (Last 48 Hours) 07/04/20 07/04/20 07/05/20 11:09 18:08 00:03 WBC RBC Hgb Hct MCV MCH MCHC RDW Std Deviation RDW Coeff of Ankit Plt Count MPV Immature Gran % (Auto) Neut % (Auto) Lymph % (Auto) [place] % (Auto) Eos % (Auto) Baso % (Auto) Absolute Neuts (auto) Absolute Lymphs (auto) Nucleated RBC % Sodium Potassium Chloride Carbon Dioxide Anion Gap BUN Creatinine Estim Creat Clear Calc Est GFR (MDRD) Af Amer Est GFR (MDRD) Non-Af BUN/Creatinine Ratio Glucose Calcium POC Glucose 126 H 128 H 145 H 07/05/20 07/05/20 07/05/20 02:50 02:50 05:28 WBC 14.5 H RBC 2.85 L Hgb 8.5 L Hct 30.0 L MCV 105.3 H MCH 29.8 MCHC 28.3 L RDW Std Deviation 57.7 H RDW Coeff of Ankit 15.3 H Plt Count 350 MPV 11.2 Immature Gran % (Auto) 3.200 H Neut % (Auto) 71.6 H Lymph % (Auto) 13.8 L [place] % (Auto) 5.9 Eos % (Auto) 5.2 H Baso % (Auto) 0.3 Absolute Neuts (auto) 10.4 H Absolute Lymphs (auto) 2.00 Nucleated RBC % 0.3 Sodium 150 H Potassium 3.9 Chloride 112 H Carbon Dioxide 32.0 Anion Gap 6 BUN 73 H Creatinine 1.02 Estim Creat Clear Calc 44.95 Est GFR (MDRD) Af Amer 69 Est GFR (MDRD) Non-Af 57 L BUN/Creatinine Ratio 71.6 H Glucose 140 H Calcium 9.2 POC Glucose 109 07/05/20 07/05/20 07/06/20 12:16 17:19 01:33 EST WBC RBC Hgb Hct MCV MCH MCHC RDW Std Deviation RDW Coeff of Ankit Plt Count MPV Immature Gran % (Auto) Neut % (Auto) Lymph % (Auto) [place] % (Auto) Eos % (Auto) Baso % (Auto) Absolute Neuts (auto) Absolute Lymphs (auto) Nucleated RBC % Sodium Potassium Chloride Carbon Dioxide Anion Gap BUN Creatinine Estim Creat Clear Calc Est GFR (MDRD) Af Amer Est GFR (MDRD) Non-Af BUN/Creatinine Ratio Glucose Calcium POC Glucose 118 H 190 H 118 H 07/06/20 07/06/20 07/06/20 03:30 03:30 05:24 WBC 19.9 H RBC 2.77 L Hgb 8.2 L Hct 28.5 L MCV 102.9 H MCH 29.6 MCHC 28.8 L RDW Std Deviation 55.8 H RDW Coeff of Ankit 14.8 H Plt Count 341 MPV 10.3 Immature Gran % (Auto) 2.100 H Neut % (Auto) 84.1 H Lymph % (Auto) 6.5 L [place] % (Auto) 4.0 Eos % (Auto) 3.0 Baso % (Auto) 0.3 Absolute Neuts (auto) 16.7 H Absolute Lymphs (auto) 1.29 Nucleated RBC % 0.1 Sodium 145 Potassium 4.2 Chloride 107 Carbon Dioxide 32.0 Anion Gap 6 BUN 65 H Creatinine 0.90 Estim Creat Clear Calc 50.94 Est GFR (MDRD) Af Amer 79 Est GFR (MDRD) Non-Af 66 BUN/Creatinine Ratio 72.1 H Glucose 105 Calcium 9.3 POC Glucose 98 Medical Necessity - Tobacco Use Smoking Status: Former smoker Assessment/Plan All Active Problems (Last Reviewed 06/24/20 @ 12:[address] Armond Killian MD) Hypoxemia (Acute) Cardiopulmonary arrest (Acute) Ventricular tachycardia (Acute) Ventricular fibrillation (Acute) Myocardial infarction (Acute) Acute heart failure (Acute) Chronic combined systolic and diastolic CHF (congestive heart failure) (Acute) RECOMMENDATIONS: 1. Continue to wean FiO2 and PEEP to maintain oxygen saturations at or above 90%. 2. Continue scheduled bronchodilator therapy and steroids. 3. Minimize sedation with a goal to maintain a RASS of -1 to 1. Continue scheduled Seroquel twice daily in addition to drips. 4. Continue appropriate GI prophylaxis, diuretics, tube feeds and antimicrobials. 5. Anticipate evaluation for trach and PEG next week 6. Spontaneous breathing and awakening trials per protocol 7. Discontinue D5W IMPRESSIONS: 1. Acute on chronic combined respiratory failure The patient presented to the emergency department from the TCU, after she apparently experienced an aspiration event leading to respiratory decompensation and worsening hypoxemia. There is concern that this hypoxemia may have precipitated an acute coronary event. The patient did suffer from cardiopulmonary arrest in the emergency department and did require intubation. Patient remains on too high of PEEP to have a spontaneous breathing trial. High clinical suspicion that tracheostomy and PEG will be necessary and this may need to be arranged early next week. 2. Status post cardiopulmonary arrest Clinical concern that hypoxemia may have precipitated cardiac decompensation. Cardiology is currently following to assist with management. At this time, we will plan to continue current supportive measures. The patient may require eventual cardiac catheterization, once medically stabilized. Likely whole 10 a inhibitor in the next 24 hours in preparation for intervention with trach and PEG if family is agreeable 3. Encephalopathy Although there was initial concern for possible anoxic brain injury, the patient has improved from a mentation standpoint. Not exclude an element of anoxic encephalopathy given prolonged recovery/resuscitation event. We will not be able to assess until patient can be liberated from the ventilator. Plan to continue to minimize sedation as tolerated with a goal to maintain a RASS of -1 to 1. 4. Acute kidney injury Result. Suspect a component of ischemic ATN in the setting of cardiopulmonary arrest. Continue to monitor urine output for now. No current indication for renal replacement therapy. Nephrology is currently following. Patient does have significant uremia despite relatively normal creatinine, but this appears to be responding to free water. Patient is not showing any signs of GI bleed at this time. Patient does have significant hypernatremia and hyperchloremia. 5. History of heart failure with preserved ejection fraction/paroxysmal atrial fibrillation Continue current supportive measures with additional medical intervention per cardiology recommendations. Patient on a 10 a inhibitor with no bleeding complications 6. Chronic pain syndrome/morbid obesity/hypertension/depression/anxiety/questionable COPD Complicates care, management, recovery and prognosis. Continue scheduled bronchodilator therapy. 7. Severe sepsis secondary to aspiration pneumonia versus sinusitis Patient has multiple etiologies for severe sepsis. Patient does have an aspiration pneumonia, but developed diarrhea and has an increasing leukocytosis overnight. C. difficile was negative. Patient has had some response to transition of NG to OG. CODE status: Succussion of CODE status at length with Dr. Davis including difference between FULL code, DNR-CCA and DNR-CC status. Following discussions about the differences in these status, the patient's daughter requested DNR-CCA CODE STATUS. TIME: 32 minutes of critical care time, independent of procedures, was spent addressing the patient's acute on chronic combined respiratory failure, status post cardiopulmonary arrest, encephalopathy, history of heart failure, acute kidney injury, review of all data and collaboration with the care team. (5:20 AM to 6:20 AM) 9xxxx: [id number] Critical care first hour
--- NOTE | 2020-07-06 09:15 | PCM.PN.HOSP ---
Patient Problems: Active and Suspected Problems (Last Reviewed 06/24/20 @ 12:[address] Armond Killian MD) Hypoxemia (Acute) Cardiopulmonary arrest (Acute) Ventricular tachycardia (Acute) Ventricular fibrillation (Acute) Myocardial infarction (Acute) Acute heart failure (Acute) Chronic combined systolic and diastolic CHF (congestive heart failure) (Acute) Subjective: No issues overnight. She does respond to tactile and verbal stimuli Vitals/I&O's: Vital Signs Temp Pulse Resp BP Pulse Ox 98.8 F 103 H 23 H 96/78 96 07/06/20 09:00 07/06/20 09:00 07/06/20 09:00 07/06/20 09:00 07/06/20 09:00 Oxygen Flow Rate (L/min) 70 Oxygen Delivery Method Mechanical Ventilator Weight: 243 lb 6.245 oz Body Mass Index (BMI) 39.9 Intake and Output for Last 24 Hours 07/04/20 07/05/20 07/06/20 23:59 23:59 22:59 Intake Total 4288.54 / 4315.49 3202.45 / 3233.75 1830.00 / 1830.00 Output Total 1775 / 1775 2225 / 2225 475 / 475 Balance 2513.54 / 2540.49 977.45 / 1008.75 1355.00 / 1355.00 General: - - Intubated and sedated, she does respond to stimuli HEENT: Atraumatic, PERRLA, Normocephalic Oral: Moist Mucosa Neck: Supple, No JVD Lungs: Normal air movement, mild bilateral rhonchi, No wheeze, No rales, Diminished Cardiovascular: Regular rate and rhythm, Normal S1, Normal S2, No murmurs Abdomen: Soft, Non-Distended, No Hepato-splenomegaly Extremities: No edema, Capillary Refill Less than 3 Seconds Skin: No rashes, No breakdown Neurological: - - Intubated and sedated Psych/Mental Status: - - Intubated and sedated Laboratory Results 07/05/20 12:16: POC Glucose 118 H 07/05/20 17:19: POC Glucose 190 H 07/06/20 01:33 EST: POC Glucose 118 H 07/06/20 03:30: WBC 19.9 H, RBC 2.77 L, Hgb 8.2 L, Hct 28.5 L, MCV 102.9 H, MCH 29.6, MCHC 28.8 L, RDW Std Deviation 55.8 H, RDW Coeff of Ankit 14.8 H, Plt Count 341, MPV 10.3, Immature Gran % (Auto) 2.100 H, Neut % (Auto) 84.1 H, Lymph % (Auto) 6.5 L, Avery % (Auto) 4.0, Eos % (Auto) 3.0, Baso % (Auto) 0.3, Absolute Neuts (auto) 16.7 H, Absolute Lymphs (auto) 1.29, Nucleated RBC % 0.1 07/06/20 03:30: Sodium 145, Potassium 4.2, Chloride 107, Carbon Dioxide 32.0, Anion Gap 6, BUN 65 H, Creatinine 0.90, Estim Creat Clear Calc 50.94, Est GFR (MDRD) Af Amer 79, Est GFR (MDRD) Non-Af 66, BUN/Creatinine Ratio 72.1 H, Glucose 105, Calcium 9.3 07/06/20 05:24: POC Glucose 98 Current Medications Acetaminophen (Acetaminophen 650 Mg/20 Ml Udc) 650 mg NG Q4H PRN PRN PRN Reason: temp>101.0 Last Admin: 06/30/20 11:49 Dose: 650 mg Documented by: Albuterol Sulfate (Albuterol 2.5 Mg/3 Ml Vial.Neb.) 2.5 mg INHALATION Q2H PRN PRN PRN Reason: SOB/Wheezing Albuterol/Ipratropium (Ipratropium/Albuterol Sulfate 3 Ml Ampul.Neb) 3 ml INHALATION Q4H.RT [facility] Last Admin: 07/06/20 02:10 Dose: 3 ml Documented by: Apixaban (Apixaban 5 Mg Tablet) 5 mg NG BID [facility] Last Admin: 07/05/20 21:45 Dose: 5 mg Documented by: Aspirin (Aspirin 81 Mg Tab.Chew) 81 mg NG DAILY@0800 [facility] Last Admin: 07/05/20 11:52 Dose: 81 mg Documented by: Chlorhexidine Gluconate (Chlorhexidine 15 Ml) 15 ml PO BID [facility] Last Admin: 07/05/20 21:45 Dose: 15 ml Documented by: Dextrose (Dextrose 50%-Water 25 Gm/50 Ml Disp.Syrin) 0 gm IV X1 PRN; Protocol PRN Reason: Hypoglycemia Famotidine (Famotidine 20 Mg Tablet) 20 mg NG BID KIM Last Admin: 07/05/20 21:45 Dose: 20 mg Documented by: Glucagon (Glucagon 1 Mg/Ml Syringe) 1 mg IM .X1 PRN PRN Reason: Hypoglycemia Heparin Sodium (Beef Lung) (Heparin Pf Lock 10 Units/Ml 50 Units/5 Ml Syringe) 50 units IV UD PRN PRN Reason: PICC Line Heparin Flush Sodium Chloride () 250 mls @ 15 mls/hr IV .[id number] PRN PRN Reason: Saline Flush Last Infusion: 06/28/20 21:35 Dose: Infused Documented by: Sodium Chloride () 250 mls @ 15 mls/hr IV .[id number] PRN PRN Reason: Additional IVPB Infusion Fentanyl Citrate 1,000 mcg/ (Sodium Chloride) 100 mls @ 5 mls/hr CONT INF .Q20H KIM; Protocol Last Titration: 07/06/20 06:00 Dose: 150 mcg/hr, 15 mls/hr Documented by: Enteral Nutritional Formula (Vital High Protein) 1,000 mls @ 60 mls/hr GT .[id number] [facility] Last Admin: 07/06/20 03:28 Dose: 60 mls/hr Documented by: Propofol (Diprivan) 1,000 mg in 100 mls @ 6.624 mls/hr CONT INF .Q12H KIM; Protocol Last Titration: 07/06/20 06:00 Dose: 25 mcg/kg/min, 16.6 mls/hr Documented by: Ceftriaxone Sodium 2 gm/ (Sodium Chloride) 50 mls @ 100 mls/hr IV Q24 [facility] Last Infusion: 07/05/20 12:32 Dose: Infused Documented by: Insulin Human Lispro (Insulin Lispro 100 Unit/Ml Insuln.Pen) 0 unit SC Q6 KIM; Protocol Last Admin: 07/06/20 05:29 Dose: Not Given Documented by: L-Arginine/L-Glutamine/Calcium HMB (Rosendo (Unflavored) Packet) 1 packet GT BIDCM [facility] Last Admin: 07/05/20 17:22 Dose: 1 packet Documented by: Metoprolol Tartrate (Metoprolol Tartrate 25 Mg Tablet) 12.5 mg PO BID [facility] Last Admin: 07/05/20 21:46 Dose: Not Given Documented by: Polyethylene Glycol (Polyethylene Glycol 3350 17 Gm Packet) 17 gm NG DAILY [facility] Last Admin: 07/05/20 12:03 Dose: Not Given Documented by: Prednisone (Prednisone 20 Mg Tablet) 40 mg NG DAILY@0800 [facility] Last Admin: 07/05/20 11:49 Dose: 40 mg Documented by: Quetiapine Fumarate (Quetiapine 25 Mg Tablet) 50 mg PO BID [facility] Last Admin: 07/05/20 21:45 Dose: 50 mg Documented by: Senna/Docusate Sodium (Senna/Docusate Sodium 1 Tablet) 2 tablet NG BID [facility] Last Admin: 07/05/20 21:45 Dose: 2 tablet Documented by: Sodium Chloride (0.9% Saline Lock 10 Ml Syringe) 10 - 40 ml IV UD PRN PRN Reason: Open End PICC Flush Last Admin: 07/06/20 03:30 Dose: 10 ml Documented by: Sodium Chloride (0.9 % Nacl (Sterile) Posiflush 10 Ml) 10 - 40 ml IV UD PRN PRN Reason: Port access or dressing change Last Admin: 06/30/20 22:22 Dose: 20 ml Documented by: Sodium Chloride (0.9% Saline Lock 10 Ml Syringe) 10 - 40 ml IV UD PRN PRN Reason: SALINE FLUSH STROKE Vital Signs/Narrative: Vital Signs Temp Pulse Resp BP Pulse Ox 07/06/20 09:00 98.8 F 103 H 23 H 96/78 96 07/06/20 08:00 90 18 93/56 L 92 07/06/20 07:00 98.9 F 86 14 88/53 L 89 07/06/20 06:42 94 15 93 07/06/20 06:40 80 14 07/06/20 06:00 98.7 F 72 14 101/60 91 Medical Necessity - Tobacco Use Smoking Status: Former smoker Assessment/Plan All Active Problems (Last Reviewed 06/24/20 @ 12:[address] Armond Killian MD) Hypoxemia (Acute) Cardiopulmonary arrest (Acute) Ventricular tachycardia (Acute) Ventricular fibrillation (Acute) Myocardial infarction (Acute) Acute heart failure (Acute) Chronic combined systolic and diastolic CHF (congestive heart failure) (Acute) 1. Cardiopulmonary arrest secondary to acute NH secondary to acute on chronic hypoxic respiratory failure secondary to aspiration pneumonia/acute metabolic encephalopathy/EMMANUEL likely ATN/hypernatremia -Remains intubated and sedated, continue to wean FiO2 and sedation -Transition from Unasyn to Rocephin -Continue with prednisone for possible history of COPD -Appreciate cardiology input, continue with Eliquis -EF of 45% with mild segmental systolic dysfunction -Renal function peaked at 3.24, improved to 0.90 today and her BUN is 65. She is making urine, appreciate nephrology assistance -D5W added given her hypernatremia and her sodium is improved from a peak of 155 to 145 today -She will likely need trach and PEG next week 2. Acute on chronic combined CHF/paroxysmal A. fib/HTN/morbid obesity -appreciate cardiology's assistance -EF of 45% -We will continue with her rate control medication metoprolol -BMI of 40.6 we will discuss weight reduction following extubation 3. History of osteomyelitis -Patient amputation of her right second toe on 06/07/[address] Montilla -She was discharged to TCU on Rocephin, continue with Rocephin for now for her MSSA 4. Depression/anxiety - we will hold her home medications pending extubation -Continue with Seroquel DVT: Eliqumartha Inpatient E&M: 30959 Subs Hosp L2
[2020-07-06] MEDS: Albuterol 2.5 MG/3 ML VIAL.NEB. INHALATION (10:00)
[2020-07-06] MEDS: QUEtiapine 25 MG Tablet 50 MG PO (10:15)
[2020-07-06] MEDS: Famotidine 20 MG Tablet NG (10:15)
[2020-07-06] MEDS: Senna/Docusate Sodium 1 Tablet 2 TABLET NG (10:15)
[2020-07-06] MEDS: Aspirin 81 MG TAB.CHEW NG (10:16)
[2020-07-06] MEDS: Juven (unflavored) Packet 1 PACKET GT ×2 (10:16→17:01)
[2020-07-06] MEDS: predniSONE 20 MG Tablet 40 MG NG (10:16)
[2020-07-06] MEDS: Chlorhexidine 15 ML PO (10:17)
[2020-07-06] MEDS: Metoprolol Tartrate 25 MG Tablet 12.5 MG PO (10:19)
[2020-07-06] MEDS: Propofol 10MG/Ml 1,000 MG/100 ML Bottle 19.9 MG CONT INF ×3 (10:43→19:25)
[2020-07-06 13:06] LABS: Bedside Glucose 134 mg/dL (70-110)
[2020-07-06] MEDS: Insulin Lispro 100 UNIT/ML INSULN.PEN SC (17:16)
[2020-07-06 17:20] LABS: Bedside Glucose 152 mg/dL (70-110)
--- NOTE | 2020-07-06 21:51 | NURSING ---
This RN attempted to call daughter listed under pt contacts and call went to voicemail. Shanna HASTINGS
--- NOTE | 2020-07-06 21:54 | RAD_ITS ---
STUDY: X-RAY CHEST REASON FOR EXAM: Female, 69 years old. RESPIRATORY DISTRESS TECHNIQUE: Single frontal view of the chest. COMPARISON: 07/04/2020 FINDINGS: Stable support devices. Hiatal hernia. Progressing right basilar alveolar disease. Evolving left midlung alveolar disease. There is no demonstrated pleural abnormality. Normal size heart. Normal mediastinum and leonid. Normal visualized pulmonary arteries. Normal visualized aortic arch and descending thoracic aorta. Normal visualized thoracic spine. Normal visualized ribs, clavicles, and shoulders. There is no demonstrated abnormality of the visualized soft tissue structures of the upper abdomen. RAD/Chest 1 View (Portable) IMPRESSION: Progressing right basilar alveolar disease. Evolving left midlung alveolar disease. Electronically Signed: Chilo Barbosa MD at 23:19 EST Tel , Service support ,
--- NOTE | 2020-07-06 22:20 | NURSING ---
At 2134: Sudden drop in oxygen saturation. RT/MD/RN called to bedside. FiO2 increased to 100%, Ambu-bag used to ventilate, lavage lungs. Dark brown dry secretions evacuated from ett. Daughter called, no answer, left message.
[2020-07-06 22:26] LABS: Base Excess 4 mmol/L (-2 to +2); Bicarbonate 29.7 mmol/L (22-26); Blood Gas Specimen Type ART; FI02 100; O2 Delivery Device Bagging; PEEP 15; PO2 35 mmHG (75-100); SITE L Radial; SO2 65 % (95-99); Total Carbon Dioxide 31 mmol/L; pCO2 51.4 mmHg (35-45); pH 7.37 (7.35-7.45)
--- NOTE | 2020-07-06 22:32 | PCM.RRT.BLA ---
Rapid Response Note - Blank Rapid response was called because patient's oxygen saturation was in the 50s. Patient was suctioned and ambu-bagged. Patient intubated and sedated. Lung sounds diminished with rhonchi. Tachycardia and tachypnea. Discussed with Hi Lo Driver. Chest x-ray ordered. Vent settings adjusted by Dr. Antunez, senior corporate strategy manager. Placed on bilevel settings. Chest x-ray returned as progressively worsening right basilar alveolar disease and evolving left midlung alveolar disease. Will stop ceftriaxone. Will start patient on vancomycin and cefepime to cover for multiple drug-resistant pneumonia/ventilator associated pneumonia.
[2020-07-06] MEDS: Acetylcysteine 800 MG/4 ML VIAL.NEB. INHALATION (22:54)
--- NOTE | 2020-07-06 23:03 | CPS ---
at 2225 critical value of P02 35.[address] lindsay
[2020-07-07] VITALS (25 sets, daily range): BP systolic 92–128; BP diastolic 57–96; PULSE 0–108; RESP 12–32; TEMP 37.6–38.4; O2SAT 90–100
[2020-07-07] MEDS: Famotidine 20 MG Tablet NG ×2 (00:13→10:38)
[2020-07-07] MEDS: QUEtiapine 25 MG Tablet 50 MG PO ×2 (00:13→10:37)
[2020-07-07] MEDS: Senna/Docusate Sodium 1 Tablet 2 TABLET NG ×2 (00:13→10:34)
[2020-07-07] MEDS: Nystatin Powder 15gm Bottle 1 APPLIC TOPICAL ×2 (00:13→10:38)
[2020-07-07] MEDS: Metoprolol Tartrate 25 MG Tablet 12.5 MG PO (00:13)
[2020-07-07] MEDS: Vital High Protein 1,000 ML 60 ML GT ×3 (00:14→08:27)
[2020-07-07] MEDS: Chlorhexidine 15 ML PO ×2 (00:29→10:35)
[2020-07-07 00:31] LABS: Bedside Glucose 90 mg/dL (70-110)
--- NOTE | 2020-07-07 01:40 | PCM.RX.CS ---
Consult Pharmacy has been consulted to manage selected antiobiotic: Vancomycin Type of Consult: New start Suspected Infection: Pneumonia Prior Doses of Antibiotics Received/Current Regimen: Medications Vancomycin HCl 1,250 mg/ (Sodium Chloride) 275 mls @ 167 mls/hr IV Q12H KIM Vancomycin HCl 1,750 mg/ (Sodium Chloride) 535 mls @ 250 mls/hr IV X1 ONE Stop: 07/07/20 03:38 Last Admin: 07/07/20 01:15 Dose: 250 mls/hr Labs: Sodium 145 mmol/L (136-145) 07/06/20 03:30 Potassium 4.2 mmol/L (3.5-5.1) 07/06/20 03:30 Chloride 107 mmol/L (98-107) 07/06/20 03:30 Carbon Dioxide 32.0 mmol/L (21.0-32.0) 07/06/20 03:30 Anion Gap 6 (5-15) 07/06/20 03:30 BUN 65 mg/dL (7-18) H 07/06/20 03:30 Creatinine 0.90 mg/dL (0.55-1.02) 07/06/20 03:30 Est GFR (MDRD) Af Amer 79 mL/min (>60) 07/06/20 03:30 Est GFR (MDRD) Non-Af 66 mL/min (>60) 07/06/20 03:30 BUN/Creatinine Ratio 72.1 RATIO (10-20) H 07/06/20 03:30 Glucose 105 mg/dL (74-106) 07/06/20 03:30 Random Vancomycin 20.7 ug/mL (0.0-15.0) H 06/29/20 15:10 Microbiology: Microbiology 06/30/20 14:00 Stool C. difficile DNA Amplification - Final 06/25/20 09:06 Blood Culture (Wb) - Central Line Blood Culture - Final No growth in 5 days. 06/25/20 06:45 Blood Culture (Wb) - Anticubital Right Blood Culture - Final No growth in 5 days. 06/25/20 09:15 Urine Catheter - Naqvi Urine Culture - Final Culture exhibits no growth. 06/24/20 22:00 Sputum, Induced/Lukens Gram Stain - Final 06/24/20 22:00 Sputum, Induced/Lukens Respiratory Culture - Final Presumptive C albicans 06/25/20 09:15 Urine Catheter - Naqvi Streptococcus pneumoniae Antigen (M - Final 06/25/20 09:15 Urine Catheter - Naqvi Legionella Antigen - Final 06/25/20 07:35 Mucosa - Nose Respiratory Panel (PCR) - Final Weight used for dosin.4 kg Estimated Creatinine Clearance: 51 Goal Trough: 15-20 mcg/mL Pharmacy Plan for Drug Dosing: Initial vancomycin dose of 1750mg was given 07/07/20. Will continue dosing at 1250mg q12h and draw a trough level prior to 4th dose. Pharmacy Service will continue to monitor and adjust dosing as required. Follow-Up Labs: Trough Vancomycin Labs to be done on [date and time ordered]: 07/08/20 @1237
[2020-07-07] MEDS: Ipratropium/Albuterol Sulfate 3 ML AMPUL.NEB INHALATION ×3 (03:08→13:54)
[2020-07-07] MEDS: Propofol 10MG/Ml 1,000 MG/100 ML Bottle 13.2 MG CONT INF (04:09)
[2020-07-07 05:11] LABS: Bedside Glucose 134 mg/dL (70-110)
--- NOTE | 2020-07-07 05:54 | PCM.PN.INT ---
Subjective: The patient was seen and examined at the bedside this morning. Events from the last 24 hours have been reviewed. The patient is currently febrile with a T-max of 101.2 ?F. She remains hemodynamically stable with an FiO2 requirement of 100%. A rapid response team was called on the patient overnight after her oxygen saturations fell into the 50s. The patient had to be transitioned from assist control to APRV mode mechanical ventilation. She also spiked a fever as well. The patient is currently documented to be overall net +3.7 L for the hospital admission. Objective: The patient's most recent lab work, culture data and imaging studies have all been personally reviewed. Surface echocardiogram revealed mild segmental systolic dysfunction with an ejection fraction of 45%. Infectious work-up has been unrevealing to date. General: - - Remains intubated, sedated and mechanically ventilated. Currently tolerating APRV. HEENT: Atraumatic, PERRLA, Normocephalic Oral: - - Endotracheal and OG tubes in place Neck: Supple, No Nodes, Trachea Midline Lungs: Diminished, Rales Cardiovascular: Normal S1, Normal S2, Tachycardic Abdomen: Bowel Sounds Present, Soft, Non Tender, Obese Extremities: No clubbing, No cyanosis, Edema Skin: No breakdown Musculoskeletal: No Muscle Wasting Lymphatic: No Cervical, Supraclavicular, or Inguinal Adenopathy Neurological: - - No focal deficits. Currently sedated on the ventilator. Vital Signs Temp Pulse Resp BP Pulse Ox 101.2 F H 94 15 118/66 95 07/07/20 05:00 07/07/20 05:00 07/07/20 05:00 07/07/20 05:00 07/07/20 05:00 Oxygen Flow Rate (L/min) 70 Oxygen Delivery Method Mechanical Ventilator Weight: 243 lb 6.245 oz Body Mass Index (BMI) 39.9 Intake and Output for Last 24 Hours 07/06/20 07/06/20 07/07/20 00:59 23:59 23:59 Intake Total 1174.43 / 1174.43 Output Total 420 / 420 Balance 754.43 / 754.43 Labs (Last 48 Hours) 07/05/20 07/05/20 07/06/20 12:16 17:19 01:33 EST WBC RBC Hgb Hct MCV MCH MCHC RDW Std Deviation RDW Coeff of Ankit Plt Count MPV Immature Gran % (Auto) Neut % (Auto) Lymph % (Auto) [place] % (Auto) Eos % (Auto) Baso % (Auto) Absolute Neuts (auto) Absolute Lymphs (auto) Nucleated RBC % Specimen Type Sample Site pH Bicarbonate Actual Total CO2 Base Excess O2 Saturation O2 % ABG pCO2 ABG pO2 O2 Delivery Device POC PEEP Sodium Potassium Chloride Carbon Dioxide Anion Gap BUN Creatinine Estim Creat Clear Calc Est GFR (MDRD) Af Amer Est GFR (MDRD) Non-Af BUN/Creatinine Ratio Glucose Calcium POC Glucose 118 H 190 H 118 H 07/06/20 07/06/20 07/06/20 03:30 03:30 05:24 WBC 19.9 H RBC 2.77 L Hgb 8.2 L Hct 28.5 L MCV 102.9 H MCH 29.6 MCHC 28.8 L RDW Std Deviation 55.8 H RDW Coeff of Ankit 14.8 H Plt Count 341 MPV 10.3 Immature Gran % (Auto) 2.100 H Neut % (Auto) 84.1 H Lymph % (Auto) 6.5 L [place] % (Auto) 4.0 Eos % (Auto) 3.0 Baso % (Auto) 0.3 Absolute Neuts (auto) 16.7 H Absolute Lymphs (auto) 1.29 Nucleated RBC % 0.1 Specimen Type Sample Site pH Bicarbonate Actual Total CO2 Base Excess O2 Saturation O2 % ABG pCO2 ABG pO2 O2 Delivery Device POC PEEP Sodium 145 Potassium 4.2 Chloride 107 Carbon Dioxide 32.0 Anion Gap 6 BUN 65 H Creatinine 0.90 Estim Creat Clear Calc 50.94 Est GFR (MDRD) Af Amer 79 Est GFR (MDRD) Non-Af 66 BUN/Creatinine Ratio 72.1 H Glucose 105 Calcium 9.3 POC Glucose 98 07/06/20 07/06/20 07/06/20 12:59 17:14 22:18 WBC RBC Hgb Hct MCV MCH MCHC RDW Std Deviation RDW Coeff of Ankit Plt Count MPV Immature Gran % (Auto) Neut % (Auto) Lymph % (Auto) [place] % (Auto) Eos % (Auto) Baso % (Auto) Absolute Neuts (auto) Absolute Lymphs (auto) Nucleated RBC % Specimen Type ART Sample Site L Radial pH 7.37 Bicarbonate Actual 29.7 H Total CO2 31 Base Excess 4 H O2 Saturation 65 L O2 % 100 ABG pCO2 51.4 H ABG pO2 35 L* O2 Delivery Device Bagging POC PEEP 15 Sodium Potassium Chloride Carbon Dioxide Anion Gap BUN Creatinine Estim Creat Clear Calc Est GFR (MDRD) Af Amer Est GFR (MDRD) Non-Af BUN/Creatinine Ratio Glucose Calcium POC Glucose 134 H 152 H 07/07/20 07/07/20 00:27 05:02 WBC RBC Hgb Hct MCV MCH MCHC RDW Std Deviation RDW Coeff of Ankit Plt Count MPV Immature Gran % (Auto) Neut % (Auto) Lymph % (Auto) [place] % (Auto) Eos % (Auto) Baso % (Auto) Absolute Neuts (auto) Absolute Lymphs (auto) Nucleated RBC % Specimen Type Sample Site pH Bicarbonate Actual Total CO2 Base Excess O2 Saturation O2 % ABG pCO2 ABG pO2 O2 Delivery Device POC PEEP Sodium Potassium Chloride Carbon Dioxide Anion Gap BUN Creatinine Estim Creat Clear Calc Est GFR (MDRD) Af Amer Est GFR (MDRD) Non-Af BUN/Creatinine Ratio Glucose Calcium POC Glucose 90 134 H Clinical Impression(s) from Imaging Studies Chest X-Ray 06/24/20 07:55 IMPRESSION: Cardiomegaly. Stable increased markings at the lung bases suggestive of bibasilar atelectasis and/or scarring. Moderate size hiatal hernia. Electronically Signed: Ivan Arce, at 8:36 EDT , Service support , Chest CTA 06/24/20 08:32 IMPRESSION: Bibasilar patchy infiltrates. Increased interstitial markings suggests a mild degree of CHF. Moderate sized hiatal hernia. Electronically Signed: Ivan Arce, at 9:17 EDT , Service support , Chest X-Ray 06/24/20 12:55 IMPRESSION: The tip of the endotracheal tube is at 3.9 cm proximal to the dianne. The orogastric tube lies to the left of the midline suggestive of placement within the left lower lobe bronchus. History congestion with small bilateral pleural effusions and bibasilar atelectasis more prominent on the left side. N.B. : The above information has been verbally conveyed by Ivan Arce to RIVAS CELIS on 06/24/2020 13:13:43 (ET). Electronically Signed: Ivan Arce, at 13:17 EDT , Service support , ADDENDUM: 06/24/20 1324 IMPRESSION: The tip of the endotracheal tube is at 3.9 cm proximal to the dianne. The orogastric tube lies to the left of the midline suggestive of placement within the left lower lobe bronchus. History congestion with small bilateral pleural effusions and bibasilar atelectasis more prominent on the left side. N.B. : The above information has been verbally conveyed by Ivan Arce to RIVAS CELIS on 06/24/2020 13:13:43 (ET). Electronically Signed: Ivan Arce, at 13:17 EDT , Service support , Chest X-Ray 06/24/20 16:07 IMPRESSION: 1. Endotracheal tube and enteric tube as described. 2. No other major interval change. Electronically Signed: Celestine Marcial DO at 16:51 EDT Tel [phone], Service support , KUB X-Ray 06/24/20 16:15 IMPRESSION: 1. OG tube as described. 2. No evidence for acute intra-abdominal process. 3. Bilateral pleural effusions. Electronically Signed: Celestine Marcial DO at 16:49 EDT Tel [phone], Service support , ADDENDUM: 06/24/20 1802 Chest X-Ray 06/26/20 06:11 IMPRESSION: Stable examination. Electronically Signed: Ivan Arce, at 11:08 EDT , Service support , Chest X-Ray 07/01/20 05:30 IMPRESSION: Mild increase in left basilar atelectasis versus infiltrate. Small left pleural effusion. Decrease in right basilar opacity. at 0522 Reported and signed by: Katerin Steward MD Electronically Signed: Katerin Steward MD at 5:22 EDT Tel , Service support , KUB X-Ray 07/03/20 04:00 IMPRESSION: Enteric tube tip in the gastric cardia, much more proximal as compared to prior study. Recommend advancing enteric tube. Electronically Signed: Farhan Salamanca MD at 5:11 EDT , Service support , Chest X-Ray 07/04/20 08:10 IMPRESSION: Left lower lobe infiltrate with a small left pleural effusion. There has been no change. Electronically Signed: Ivan Arce, at 12:17 EDT , Service support , Chest X-Ray 07/06/20 21:54 IMPRESSION: Progressing right basilar alveolar disease. Evolving left midlung alveolar disease. Electronically Signed: Chilo Barbosa MD at 23:19 EST Tel , Service support , Medical Necessity - Tobacco Use Smoking Status: Former smoker Assessment/Plan All Active Problems (Last Reviewed 06/24/20 @ 12:[address] Armond Killian MD) Hypoxemia (Acute) Cardiopulmonary arrest (Acute) Ventricular tachycardia (Acute) Ventricular fibrillation (Acute) Myocardial infarction (Acute) Acute heart failure (Acute) Chronic combined systolic and diastolic CHF (congestive heart failure) (Acute) RECOMMENDATIONS: 1. Continue patient on APRV and maintain FiO2 to keep saturations at or above 90%. 2. Continue scheduled bronchodilator therapy and steroids. 3. Minimize sedation with a goal to maintain a RASS of -1 to 1. Continue scheduled Seroquel twice daily. 4. Continue appropriate GI prophylaxis. 5. Continue tube feeds as tolerated. 6. Continue antimicrobials, while awaiting repeat infectious work-up. 7. Check coronavirus PCR and respiratory viral panel. 8. Goals of care discussion with the patient's family today. IMPRESSIONS: 1. Acute on chronic combined respiratory failure The patient presented to the emergency department from the TCU, after she apparently experienced an aspiration event leading to respiratory decompensation and worsening hypoxemia. There is concern that this hypoxemia may have precipitated an acute coronary event. The patient did suffer from cardiopulmonary arrest in the emergency department and did require intubation. The patient has decompensated over the last 24 hours due to presumptive mucous plugging and is currently on APRV with a high FiO2 requirement. We will plan to continue current supportive measures. Given the duration of time that the patient has required invasive mechanical ventilatory support, will need to discuss with the patient's family goals of care and/or desire to proceed with tracheostomy and PEG tube placement. Given clinical decompensation last night, the patient was restarted on antimicrobials as well. She will also be checked for coronavirus and a respiratory viral panel will be completed. The patient will also be continued on scheduled bronchodilator therapy and steroids, over concerns for underlying COPD. 2. Status post cardiopulmonary arrest Clinical concern that hypoxemia may have precipitated cardiac decompensation. Cardiology is currently following to assist with management. At this time, we will plan to continue current supportive measures. The patient may require eventual cardiac catheterization, once medically stabilized. 3. Encephalopathy Although there was initial concern for possible anoxic brain injury, the patient has improved from a mentation standpoint. Plan to continue to minimize sedation as tolerated with a goal to maintain a RASS of -1 to 1. 4. Acute kidney injury Suspect a component of ischemic ATN in the setting of cardiopulmonary arrest. Continue to monitor urine output for now. No current indication for renal replacement therapy. Nephrology is currently following. 5. History of heart failure with preserved ejection fraction/paroxysmal atrial fibrillation Continue current supportive measures with additional medical intervention per cardiology recommendations. 6. Chronic pain syndrome/morbid obesity/hypertension/depression/anxiety/questionable COPD Complicates care, management, recovery and prognosis. Continue scheduled bronchodilator therapy. CODE status: Discussed CODE status at length including difference between FULL code, DNR-CCA and DNR-CC status. Following discussions about the differences in these status, the patient's daughter requested DNR-CCA CODE STATUS. UPDATE: I was in contact with the patient's daughter, Samantha, this afternoon. She was updated on her mother's overall clinical status. Goals of care discussions were undertaken. Samantha reported that her mother would not want to pursue tracheostomy and PEG tube placement. Therefore, she is requesting that she be made comfort care, with plans to initiate palliative care measures. TIME: 38 minutes of critical care time, independent of procedures, was spent addressing the patient's acute on chronic combined respiratory failure, status post cardiopulmonary arrest, encephalopathy, history of heart failure, acute kidney injury, review of all data and collaboration with the care team. ([id number]) [id number]: [id number] Critical care first hour
[2020-07-07] MEDS: 0.9% Saline Lock 10 ML Syringe IV (06:32)
[2020-07-07 08:35] LABS: Absolute Lymphocyte Count 0.98 X10^3/uL (0.83-4.51); Basophil# 0.06 X10^3/uL; Basophil% 0.3 % (0-1); Eosinophil# 0.55 X10^3/uL; Eosinophils% 2.3 % (0-5); Hematocrit 28.8 % (37-47); Hemoglobin 8.5 g/dL (12.0-15.0); Lymphocyte # 0.98 X10^3/ul (4.0); Lymphocyte % 4.1 % (19-41); Mean Corp Hgb Conc 29.5 g/dL (32-36); Mean Corpuscular Hgb 29.8 pg (27.0-32.0); Mean Corpuscular Volume 101.1 fL (81-99); Mean Platelet Vol. 10.6 fl (6.2-12.0); Monocyte# 0.76 X10^3/uL; Monocyte% 3.2 % (0-10); NRBC Flagged by Analyzer 0.2 % (0-5); Neutrophil # 21.03 X10^3/uL (2.7-7.7); POSITIVE DIFFERENTIAL YES; Platelet Count 335 K/mm3 (150-450); RBC Distribution Width SD 53.9 fl (35.1-43.9); Red Blood Count 2.85 M/mm3 (4.2-5.4); White Blood Count 23.6 K/mm3 (4.4-11.0)
[2020-07-07 08:42] LABS: Differential Indicated SCAN CRITERIA MET
[2020-07-07 08:50] LABS: Anion Gap 6 (5-15); BUN 53 mg/dL (7-18); BUN/Creat Ratio 65.4 RATIO (10-20); Calcium,Total 9.2 mg/dL (8.5-10.1); Chloride 109 mmol/L (98-107); Creatinine, Serum 0.81 mg/dL (0.55-1.02); EST Glomerular Filtration Rate 74 mL/min (>60); Est Glom Filt Rate - Afr Amer 90 mL/min (>60); Glucose 124 mg/dL (74-106); Potassium 3.9 mmol/L (3.5-5.1); Sodium Level 143 mmol/L (136-145)
[2020-07-07 09:02] LABS: Hypochromasia 2+; Macrocytosis 3+; Microcytosis 1+; Polychromasia RARE
--- NOTE | 2020-07-07 10:16 | CASEMGMT ---
RN CM Note: participate in ICU interdisciplinary rounds. Patient remains on ventilator/APRV 80% O2. Dr. Davis requesting family be contacted for update and plan of care. ANGLE Manzanares will call family. Failed mobility due to oxygen needs. DC Planning on hold. DC Plan: AMPARO. Sheyla PARSON RN ACM
[2020-07-07] MEDS: predniSONE 20 MG Tablet 40 MG NG (10:34)
[2020-07-07] MEDS: Polyethylene Glycol 3350 17 GM PACKET NG (10:34)
[2020-07-07] MEDS: Aspirin 81 MG TAB.CHEW NG (10:34)
[2020-07-07] MEDS: APIXABAN 5 MG TABLET NG (10:35)
[2020-07-07] MEDS: Juven (unflavored) Packet 1 PACKET GT (10:36)
[2020-07-07] MEDS: Propofol 10MG/Ml 1,000 MG/100 ML Bottle 9.9 MG CONT INF (10:58)
--- NOTE | 2020-07-07 12:51 | CASEMGMT ---
Social Work SW participated in ICU rounds. Pt family in for family meeting overnight. Family was to consider options and notify hospital. SW placed call to pt dgt Samantha Merida [phone] at [phone], [phone], [phone] and [phone] with no answer. Two voicemails left requesting return call to hospital. No other numbers or contacts listed for pt. Will await return phone call. FELICIA Prince
[2020-07-07] MEDS: Insulin Lispro 100 UNIT/ML INSULN.PEN SC (13:02)
[2020-07-07 14:05] LABS: Bedside Glucose 153 mg/dL (70-110)
--- NOTE | 2020-07-07 14:53 | PCM.DEATH ---
Preliminary Cause of acute hypoxic respiratory failure due to cardiopulmary arrest Date of Admission: 06/24/20 Date of : 07/07/20 - Principle Diagnosis acute hypoxic respiratory failure cardiopulmonary arrest STEMI ventricular fibrillation and tachycardia Problem List: Active and Suspected Problems (Last Reviewed 06/24/20 @ 12:[address] Armond Killian MD) Hypoxemia (Acute) Cardiopulmonary arrest (Acute) Ventricular tachycardia (Acute) Ventricular fibrillation (Acute) Myocardial infarction (Acute) Acute heart failure (Acute) Chronic combined systolic and diastolic CHF (congestive heart failure) (Acute) Hospital Course Patient is a 69-year-old female with an extensive past medical history as outlined who was transferred from the transitional care unit to the emergency department on 06/24/2020 for hypoxemia and respiratory decompensation which was thought to be due to aspiration on the night before admission. She had just been discharged in the hospital on June 20 after being admitted for 5 days with right second toe osteomyelitis, acute on chronic congestive heart failure and paroxysmal A. fib. After she arrived in the ED for dizziness admission, EKG showed evidence of ST elevation NH. STEMI alert was therefore called. However subsequently went into cardiopulmonary arrest due to V. fib which required defibrillation and multiple rounds of epinephrine to gain ROSC. She was started on vasopressors as well. She was subsequently admitted to the ICU. She was admitted and managed for acute on chronic combined respiratory failure due to cardiopulmonary arrest and ST elevation NH. She was also managed for cardiopulmonary arrest due to V. fib and probable aspiration pneumonia. Audiology was consulted. Critical care was also consulted. 2D echo done on 06/15/2020 showed EF of 50% and imaging studies in the ED showed bibasilar patchy infiltrates with increased interstitial markings suggestive of mild degree of CHF. Patient remained intubated throughout the course of her stay. She was initially started on IV Unasyn which was transitioned to IV Rocephin. Repeat 2D echo showed EF of 45% with mild segmental systolic dysfunction. Nephrology was also consulted on account of hypernatremia and EMMANUEL complicating her medical course. Patient remained intubated and critically ill. After family reviewed her medical course and discussed with the medical team, decision was made to withdraw all care. Patient was therefore switched to DNR CC and she was terminally extubated on 07/07/2020. Patient at 1558 on 07/07/2020. Of was acute hypoxic respiratory failure due to cardiopulmonary arrest which was also due to V. fib secondary to acute myocardial infarction. Inpatient E&M: [id number] Disch Hosp
[2020-07-07] MEDS: Morphine 2 MG/ML Syringe IV (15:29)
[2020-07-07] MEDS: LORazepam 2 MG/ML Syringe 1 MG IV (15:29)
[2020-07-07] MEDS: Morphine 4 MG/ML Syringe IV (15:33)
--- NOTE | 2020-07-07 16:47 | CHAPLAIN ---
Type of Pastoral Visit ___ Initial Visit ___ Follow-up Visit ___ On-call Visit ___ General Patient Visit ___ Spiritual Assessment ___ Family Conference ___ Bereavement ___ Rapid Response ___ Code Blue _x__ Other (describe below) Pastoral Care Referral From ___ Patient ___ Family _x__ Nurse ___ Physician ___ Rn Occupational ___ Manager Application Development ___ Other (describe below) Sacrament/Intervention ___ Active listening ___ Anointing ___ Mosque _x__ Bereavement ___ Communion ___ Diane exploration ___ ___ Life review _x__ Prayer ___ Reconciliation ___ Sacrament of Sick ___ Supportive presence ___ Wedding ___ Other (describe below) Pastoral Comments was present along with nursing staff at of this patient; family did not come to the hospital; offered prayer, gave support to staff
--- NOTE | 2020-07-07 18:17 | NURSING ---
Patient terminally extubated at 1529. Comfort medications of Ativan 1 mg IV and morphine 4 mg IV given. Patient at 1558, with this nurse, Farheen Thao and the hospital dairy farmworkerServando, at bedside. No pulses felt and no heart beat heard. Dr. Davis and Dr. Hahn notified. Daughter Samantha notified.
== END 2020-07-07 18:15 | DRG 870 ==
LOC: ED 10:18 → ICU 13:07
PROVIDERS: Family Medicine; Internal Medicine Critical Care Medicine; Admitting Provider Internal Medicine; Emergency Provider Emergency Medicine; PCP Family Medicine Geriatric Medicine; Referring Provider Specialist; Visit Provider Student in an Organized Health Care Education/Training Program
DX: A41.9 Sepsis, unspecified organism (principal); I21.3 ST elevation (STEMI) myocardial infarction of unspecified site; J96.21 Acute and chronic respiratory failure with hypoxia; I50.43 Acute on chronic combined systolic (congestive) and diastolic (congestive) heart failure; J69.0 Pneumonitis due to inhalation of food and vomit; N17.0 Acute kidney failure with tubular necrosis; G93.41 Metabolic encephalopathy; I13.0 Hypertensive heart and chronic kidney disease with heart failure and stage 1 through stage 4 chronic kidney disease, or unspecified chronic kidney disease; I42.0 Dilated cardiomyopathy; Z68.41 Body mass index [BMI] 40.0-44.9, adult; I47.2 Ventricular tachycardia; E87.0 Hyperosmolality and hypernatremia; M86.671 Other chronic osteomyelitis, right ankle and foot; R65.20 Severe sepsis without septic shock; I46.9 Cardiac arrest, cause unspecified; I49.01 Ventricular fibrillation; I48.0 Paroxysmal atrial fibrillation; G47.33 Obstructive sleep apnea (adult) (pediatric); J44.9 Chronic obstructive pulmonary disease, unspecified; M19.90 Unspecified osteoarthritis, unspecified site; F41.8 Other specified anxiety disorders; K21.9 Gastro-esophageal reflux disease without esophagitis; E66.01 Morbid (severe) obesity due to excess calories; G25.81 Restless legs syndrome; B95.61 Methicillin susceptible Staphylococcus aureus infection as the cause of diseases classified elsewhere; N18.30 Chronic kidney disease, stage 3 unspecified; G89.4 Chronic pain syndrome; R57.0 Cardiogenic shock; Z91.19 Patient's noncompliance with other medical treatment and regimen; Z66 Do not resuscitate; Z87.891 Personal history of nicotine dependence; R19.7 Diarrhea, unspecified
CPT/HCPCS: 31500; 31720; 36600; 71045; 71275; 74018; 80048; 80053; 80202; 82550; 82803; 82962; 83605; 83735; 83880; 84100; 84478; 84484; 85025; 85027; 85610; 85730; 87040; 87070; 87086; 87186; 87205; 87449; 87493; 87633; 87635; 87641; 92950; 93005; 93306; 94002; 94003; 94640; 97110; 97150; 97802; 97803; 99251; 99283; J7030; J7040; J7050; Q9957; Q9967; A4216; C8929; G0463; J0295; J0696; J1940; J3010; J3475; U0002